=== PATIENT | male | born 1975 | race Caucasian/White ===

== ENCOUNTER 2018-01-23 16:11 | Emergency (ER) | payer OTHER, SELFPAY ==
[2018-01-23 16:12] VITALS: BP 129/99; PULSE 129; RESP 16; TEMP 37.5; O2SAT 98; BMI 27.1
--- NOTE | 2018-01-23 16:35 | CT_ITS ---
STUDY: CT ABDOMEN AND PELVIS WITHOUT CONTRAST REASON FOR EXAM: Male, 42 years old. Bilateral flank pain. RADIATION DOSAGE (If Supplied By Facility): CTDIvol = ( 7.17 ) mGy, DLP = ( 356.60 ) mGycm TECHNIQUE: Transaxial images were obtained from the dome of the diaphragm to the symphysis pubis without oral contrast, and without intravenous contrast. Sagittal and coronal images were reconstructed. Individualized dose optimization techniques were used for this CT. COMPARISON: 01/12/2016. FINDINGS: Evaluation of the abdominal viscera is limited in the absence of intravenous contrast. The visualized lung bases are clear. The visualized portions of the heart and pericardium are within normal limits. There are no calcified gallstones present. The liver demonstrates an unremarkable unenhanced appearance. The spleen is mildly enlarged, measuring 12.6 cm. The pancreas demonstrates an unremarkable unenhanced appearance. The adrenal glands are within normal limits. There are bilateral subcentimeter nonobstructing renal collecting system stones, measuring up to 3 mm. There are no ureteral stones. There is no hydronephrosis. Please note that bilateral nephritis cannot be excluded without intravenous contrast. There is stranding adjacent to the prostate and seminal vesicles. This may represent prostatitis and clinical correlation is recommended. Normal visualized stomach. There is no bowel obstruction or inflammation. The appendix is visualized and appears normal. The aorta is normal in caliber. There is no abdominal or pelvic free air, free fluid, fluid collection or lymphadenopathy. There are no destructive osseous lesions. CT/Abdomen/Pelvis without Cont IMPRESSION: Stranding around the prostate and seminal vesicles which may represent prostatitis. Clinical correlation is recommended. Bilateral subcentimeter nonobstructing renal collecting system stones. No ureteral stones. No hydronephrosis. Please note that pyelonephritis cannot be excluded without contrast. No bowel obstruction or inflammation. Normal appendix. Mild splenomegaly. Electronically Signed: Marcus Love, at 17:52 EDT Tel , Service support ,
--- NOTE | 2018-01-23 16:38 | ED.VIS.GEN ---
History of Present Illness Informant: Patient Onset: Today Quality: ache/pain Location: low back, worse on left Current Severity: Severe Maximum Severity: Severe Associated Symptoms: dysuria, frequency, fever Narrative: Patient states he thinks he is having a kidney infection. States he has had those before and he had pain like this, and has not seen a urologist for this although he did have one see him in the hospital once before, Dr. Krause, to help extract a kidney stone that he had one time. He states yesterday he started having some burning when he urinates, and frequency. He states normally when this happens, he drinks a lot of fluids, which he did all day yesterday. He woke up today at his usual time, and excruciating pain, from my tailbone radiating up to my neck. When asked if this is the typical pain that he gets with kidney infections, he states he had his it has felt like this, but he also does have chronic pain from degenerative disc disease in his low back that he gets back injections for. Denies any bowel or bladder dysfunction. <Olivier Max - Last Filed: 01/23/18 16:38> <Jorge Light - Last Filed: 01/23/18 18:37> Chief Complaint: Complaint - Past Medical History (1) Kidney stone Status: Chronic (2) Chronic low back pain Status: Chronic (3) DDD (degenerative disc disease), lumbar Status: Chronic <Olivier Max - Last Filed: 01/23/18 16:38> Past Medical History Surgical History: tonsillectomy, - - [place] teeth removal, radioablation of lumbar area Smoking Status: Former smoker - Family History Maternal Family History: Reports: Cancer Paternal Family History: Reports: Cancer <Olivier Max - Last Filed: 01/23/18 16:38> <Jorge Light - Last Filed: 01/23/18 18:37> - Allergies and Home Meds Allergies/Adverse Reactions: Allergies tetanus immune globulin Allergy (Verified 12/27/16 06:22) Swelling codeine Adverse Reaction (Verified 12/27/16 06:22) Nausea fluticasone propionate [From Flonase] Adverse Reaction (Verified 12/27/16 06:22) MIGRAINE Home Medications: Home Medications Medication Instructions Recorded Cyclobenzaprine [Flexeril] 10 mg PO TID 04/12/15 Ipratropium/Albuterol Respimat 1 puff INHALATION DAILY 04/12/15 [Combivent Respimat Inhal [place]] Lorazepam [Ativan] 0.5 mg PO BID PRN PRN 04/12/15 Montelukast [Singulair] 10 mg PO QHS 04/12/15 Omeprazole [Prilosec] 20 mg PO DAILY 04/12/15 Acetaminophen [Tylenol Arthritis] 650 mg PO TID PRN 11/30/16 Fexofenadine HCl [Tonya Allergy] 180 mg PO DAILY 11/30/16 Hydrochlorothiazide [Hctz] 12.5 mg PO DAILY 11/30/16 Nitroglycerin 0.4 mg SL PRN PRN 11/30/16 Gabapentin [Neurontin] 100 - 300 mg PO 4X/DAY PRN PRN #60 12/01/16 capsule Hydrocodone/Acetaminophen [[place] 1 each PO Q6H PRN PRN #30 tablet 12/01/16 10-325 Tablet] Iron Polysaccharide Complex 150 mg PO DAILYCM #30 capsule 12/01/16 [Ferrex 150] Mag Hydrox/Al Hydrox/Simeth 30 ml PO Q4H PRN PRN #10 dose 12/14/16 [Mylanta II] Atorvastatin Calcium [Lipitor] 40 mg PO QHS 12/27/16 Lisinopril [Zestril] 20 mg PO DAILY 12/27/16 Ciprofloxacin [Cipro] 500 mg PO BID #30 tab 01/23/18 Primary Care Physician: Avni Salcedo DO [Primary Care Provider] - Review of Systems General: Reports: Fever. Denies: Chills, Malaise, Sweats Eyes: Denies: Visual changes - bilaterally, Diplopia ENT: Denies: Bilateral ear pain, Sore throat Cardiovascular: Denies: Chest pain, Palpitations Respiratory: Denies: Dyspnea, Cough, Dyspnea on exertion Gastrointestinal: Reports: Abdominal pain - mild RLQ / suprapubic. Denies: Nausea, Vomiting, Diarrhea, Melena, Hematochezia Genitourinary: Reports: Dysuria, Frequency. Denies: Hematuria Musculoskeletal: Reports: Back pain. Denies: Neck pain, Swelling, Extremity Pain Skin: Denies: Rash, Wounds Neurological: Denies: Headache, Weakness, Numbness Psych: Denies: Depression, Anxiety Endocrine: Denies: Polyuria, Polydipsia Hematologic: Denies: Easy bruising, Easy bleeding Allergy: Denies: Swelling of the mouth, Swelling of the tongue <MansoorOlivier - Last Filed: 01/23/18 16:38> Physical Exam Vital Signs/Narrative: Vital Signs Temp Pulse Resp BP Pulse Ox 01/23/18 16:12 99.5 F H 129 H 16 129/99 H 98 Inital Vital Signs reviewed: Yes General: Well nourished, Well developed, - - conversive. NAD. Head: Normocephalic, Atraumatic Eyes: Perrl, EOMI ENT: Moist mucous membranes, No rhinorrhea Neck: Supple, Nontender Cardiovascular: Regular rate, Regular rhythm, No murmurs Respiratory: No distress, CTA bilaterally, Chest nontender Abdomen: Soft, Nontender, Nondistended, Normal bowel sounds Back: Normal Inspection, CVA tenderness - left only. Extremities: Nontender, No edema Skin: Normal color, No rash Neurological: Alert, Oriented x3, Cranial nerves II-XII grossly intact, Normal Strength, Normal Sensation, Normal Gait Psychological: Normal affect <MansoorOlivier - Last Filed: 01/23/18 16:38> Vital Signs/Narrative: Vital Signs Temp Pulse Resp BP Pulse Ox 01/23/18 17:41 99.3 F H 01/23/18 16:12 99.5 F H 129 H 16 129/99 H 98 <Ronn Lighto - Last Filed: 01/23/18 18:37> Diagnostic/Tx/Re-eval - Medical Decision Making Workup, IV fluids, analgesics ordered and checked out to oncoming emergency physician. <MansoorOlivier - Last Filed: 01/23/18 16:38> CT of the abdomen pelvis without contrast was obtained and reveals evidence of prostatitis. Urine reveals infection and is a good specimen. White count is elevated with no shift. A urine culture was ordered. Will treat with ciprofloxacin 500 mg twice a day for 2 weeks. He was referred to urology. - Medical Decision Making Impression: 1. Acute prostatitis 2. Sepsis 3. Sinus tachycardia documented on monitor Since patient is hemodynamic is stable without vomiting he is a candidate for outpatient treatment. <Ronn Lighto - Last Filed: 01/23/18 18:37> Disposition: Home <Jorge Light - Last Filed: 01/23/18 18:37> ED Disposition <Olivier Max - Last Filed: 01/23/18 16:38> <Jorge Light - Last Filed: 01/23/18 18:37> - Plan for ED Patient: Disposition: Home or Assisted Living Chief Complaint: Complaint Instructions: ED Prostatitis Prescriptions: Ciprofloxacin [Cipro] 500 mg PO BID #30 tab Referrals: Avni Salcedo DO [Primary Care Provider] - Jimmy Alcala MD [STAFF PHYSICIAN] - 3-5 Days
[2018-01-23] MEDS: fentaNYL 100 MCG/2 ML Ampul IV (17:09)
[2018-01-23] MEDS: Ketorolac 30 MG/ML Syringe IV (17:09)
[2018-01-23 17:24] LABS: Anion Gap 10 (5-15); BUN 11 mg/dL (7-18); BUN/Creat Ratio 9.7 RATIO (10-20); Calcium,Total 9.7 mg/dL (8.5-10.1); Chloride 104 mmol/L (98-107); Creatinine, Serum 1.13 mg/dL (0.70-1.30); EST Glomerular Filtration Rate 75 mL/min (>60); Est Glom Filt Rate - Afr Amer 90 mL/min (>60); Estimated Creatinine Clearance 75.28 ml/min; Glucose 102 mg/dL (74-106); Sodium Level 137 mmol/L (136-145)
[2018-01-23 17:25] LABS: Absolute Lymphocyte Count 0.55 X10^3/ul (0.83-4.51); Absolute Neutrophil Count 13.6 X10^3/uL (2.0-7.7); Basophil# 0.02 X10^3/uL; Basophil% 0.1 % (0-1); Eosinophil# 0.08 X10^3/uL; Eosinophils% 0.5 % (0-5); Hematocrit 46.9 % (40-54); Lymphocyte # 0.55 X10^3/ul (4.0); Lymphocyte % 3.7 % (19-41); Mean Corp Hgb Conc 34.1 g/gl (32-36); Mean Corpuscular Hgb 30.3 pg (27.0-32.0); Mean Corpuscular Volume 88.8 fL (80-94); Mean Platelet Vol. 10.1 fl (6.2-12.0); Monocyte# 0.79 X10^3/uL; Monocyte% 5.3 % (0-10); Neutrophil # 13.57 X10^3/uL (2.7-7.7); Neutrophil % 90.2 % (47-70); Platelet Count 166 K/mm3 (150-450); RBC Distribution Width CV 13.2 % (11.6-14.6); RBC Distribution Width SD 42.4 fl (35.1-43.9); Red Blood Count 5.28 M/mm3 (4.6-6.2)
[2018-01-23 17:30] LABS: Differential Indicated SCAN CRITERIA MET; POSITIVE COUNT NO; POSITIVE DIFFERENTIAL YES; POSITIVE MORPHOLOGY NO
[2018-01-23 17:33] LABS: Color, Urine Yellow (Yellow); Glucose, Dipstick Normal (Normal); Ketone-Dipstick 15 mg/dl (Negative); Leukocyte Esterase-Dipstick 500 /ul (Negative); Nitrite-Dipstick Negative (Negative); Occult Blood-Urine 50 /ul (Negative); Protein-Dipstick 30 mg/dl (Negative); Specific Gravity, Urine 1.015 (1.002-1.030); Urine Clarity Cloudy (Clear); Urine Urobilinogen 1 mg/dl (Normal)
[2018-01-23 17:41] VITALS: TEMP 37.4
[2018-01-23 17:45] LABS: Differential Comment SCANNED
[2018-01-23 17:46] LABS: Urine Bilirubin Dipstick 6 mg/dL (Negative)
[2018-01-23 17:50] LABS: Bacteria 1+ /hpf (None Seen); Red Blood Cells-Urine 10-25 SEEN /hpf (0-5); Squamous Epithelial Cells - UA 0 SEEN /hpf (0-5); White Blood Cells >100 SEEN /hpf (0-5)
[2018-01-23 17:51] LABS: Mucous, Urine 3+ /hpf (<or=2+)
--- NOTE | 2018-01-23 18:41 | ED.VISSUMM ---
- ER Visit Summary Date of Service: 01/23/18 Chief Complaint: [] History of Present Illness: The patient is a 42 M [] Physical Examination: [] Test Results: [] Emergency Department Course and Treatment: [] Treatment Plan: [] Disposition: [] Impression: [] This note was generated with [employer] dictation software. It may contain incorrect words, spelling, and punctuation that were not noted in review of the chart prior to signing ED Disposition - Plan for ED Patient: Disposition: Home or Assisted Living Chief Complaint: Complaint Instructions: ED Prostatitis Prescriptions: Ciprofloxacin [Cipro] 500 mg PO BID #30 tab Referrals: Avni Salcedo DO [Primary Care Provider] - Jimmy Alcala MD [STAFF PHYSICIAN] - 3-5 Days Additional Instructions: Your prescription was electronically transmitted to your preferred pharmacy.
[2018-01-23] MEDS: Ciprofloxacin 250 MG Tablet 500 MG PO (18:57)
[2018-01-23] MEDS: Acetaminophen 325 MG Tablet 650 MG PO (18:57)
[2018-01-23 19:05] VITALS: BP 136/91; PULSE 120; RESP 18; O2SAT 94
== END 2018-01-23 19:10 | disposition home or self-care (01) ==
PROVIDERS: Emergency Provider Emergency Medicine; Family Provider Student in an Organized Health Care Education/Training Program; PCP Student in an Organized Health Care Education/Training Program
DX: A41.9 Sepsis, unspecified organism (principal); N41.0 Acute prostatitis; R00.0 Tachycardia, unspecified; M54.5 Low back pain; G89.29 Other chronic pain; M51.36 Other intervertebral disc degeneration, lumbar region; Z87.442 Personal history of urinary calculi; Z87.891 Personal history of nicotine dependence; Z79.899 Other long term (current) drug therapy
CPT/HCPCS: 74176; 80048; 81001; 85025; 96374; 96375; 99284; A4216

== ENCOUNTER 2018-01-25 16:31 | Emergency (ER) | payer OTHER, SELFPAY ==
[2018-01-25 16:34] VITALS: BP 149/98; PULSE 105; RESP 18; TEMP 37.3; O2SAT 99; BMI 27.4
--- NOTE | 2018-01-25 16:44 | ED.VISSUMM ---
- ER Visit Summary Date of Service: 01/25/18 Chief Complaint: Frequency, decreased stream and dysuria History of Present Illness: The patient is a 42 M who was seen on Sunday and diagnosed with acute prostatitis. He was prescribed ciprofloxacin. He was referred to Dr. Gene Alcala. He was sent from urgent care because of urinary retention. Patient denies fever or chills. He denies any testicular pain. He has decreased fullness in the rectal area which was a complaint/concern when seen on Sunday. He has no other complaints Physical Examination: Vital signs are marked for an elevated blood pressure 149/98 heart rate 105. He is not febrile. He has no discomfort in the suprapubic region. He has no CVA tenderness noted. He is alert and oriented. Motor and sensory are intact. Cranial 2 through 12 are intact. There is no dermatologic lesions or rash noted. Test Results: Bladder scan revealed only 135 cc of urine. Emergency Department Course and Treatment: A bladder scan was ordered. If there is evidence urinary retention Campos replaced otherwise we will treat with Pyridium for his dysuria. Treatment Plan: Azo 190 mg in the emergency department and prescription for the next 5 days. Disposition: Discharged to home Impression: Dysuria and urgency secondary to prostatitis This note was generated with [employer] dictation software. It may contain incorrect words, spelling, and punctuation that were not noted in review of the chart prior to signing ED Disposition - Plan for ED Patient: Disposition: Home or Assisted Living Chief Complaint: Complaint Instructions: ED Urethritis Infec Vs Inflam Male Prescriptions: Phenazopyridine HCl [Pyridium] 200 mg PO TID #14 tab Referrals: Avni Salcedo DO [Primary Care Provider] - 3-5 Days if not improving Additional Instructions: Your prescription was electronically transmitted to [facility] pharmacy
[2018-01-25] MEDS: Phenazopyridine 95 MG Tablet 190 MG PO (17:11)
== END 2018-01-25 17:13 | disposition home or self-care (01) ==
PROVIDERS: Emergency Provider Emergency Medicine; Family Provider Student in an Organized Health Care Education/Training Program; PCP Student in an Organized Health Care Education/Training Program
DX: N41.9 Inflammatory disease of prostate, unspecified (principal); R30.0 Dysuria; R39.15 Urgency of urination; Z79.2 Long term (current) use of antibiotics
CPT/HCPCS: 99283

== ENCOUNTER → 2018-06-25 08:58 | Outpatient (CLI) | payer OTHER, SELFPAY ==
--- NOTE | 2018-06-25 09:09 | VDLE_ITS ---
Reason For Study: LLE pain RIGHT LEFT CFV is compressible, spontaneous, phasic, GSV is normal. competent and demonstrates normal CFV is compressible, spontaneous, phasic, augmentation. competent, and demonstrates normal Procedure augmentation. Exam performed in department. FV is compressible, spontaneous, phasic, A preliminary report was called and/or faxed competent and demonstrates normal to [place]. augmentation. POP V is compressible, spontaneous, phasic, competent and demonstrates normal augmentation. T/P Trunk is compressible. PTV is compressible. LT PerV is compressible. Interpretation Summary Deep veins of the left lower extremity are patent and compressible segmentally. There is no evidence of left lower extremity deep vein thrombosis. Valvular competence appears intact within the proximal deep venous system on the left . The left greater saphenous vein appears patent and compressible segmentally. Ordering Physician: Chan Granados Referring Physician: Avni Serrato Performed By: Brittany Lenz RVT and Student
== END ==
PROVIDERS: Family Provider Student in an Organized Health Care Education/Training Program; PCP Student in an Organized Health Care Education/Training Program; Referring Provider Orthopaedic Surgery Orthopaedic Surgery of the Spine; Visit Provider Orthopaedic Surgery Orthopaedic Surgery of the Spine
DX: M79.605 Pain in left leg (principal)
CPT/HCPCS: 93971

== ENCOUNTER 2018-08-21 16:30 | Outpatient (RCR) | payer OTHER, SELFPAY ==
--- NOTE | 2018-07-12 13:08 | HP.PTEVAL ---
Patient's Visit Information JARON PANTOJA is a 43 year old M referred to Physical Therapy by RUDOLPH AGEE with a diagnosis of S/P LUMBAR SURGERY. Date of Evaluation: 07/12/18 Physical Therapist: Moises Pinedo, PT, - Visit Plan Frequency: 2x /Week Duration: 4 Weeks Plan: PATIENT UNDERWENT S/P LUMBAR DISCTOMY L5-S1 JUN 18. PATIENT HAS DRAINAGE INSCION UNABLE TO LAY SUPINE. INTIATE LE FLEXABLITY,STRENGTHENING,POSTURAL EX'S,DLS,LUMBAR ROM - Subjective Subjective: This 43 y/o male presents to physical therapy with s/p lumbar surgery. Patient undwerwent s/p lumbar disectomy L5-S Jun 18 2018 at [facility] done by DR Flores.Patient d/c same. Patient has pain lumbar buttuck hamstring foot. Seen DR last Sunday. Recommended PT and if not better may do MRI. Patient has not RTW at [facility]. C/O parathesia/tingling to foot. Symptoms worse with walking ,standing,ADL'S. Symptoms some better with sitting. Patient does have drainage in inscion. and has Dr office knows that lumbar inscion is draining. Coughing/sneezing increase symptoms. Bowel/bladder good. Patient has had prior PT. Patient tried injections in past which made symptoms worse. Patient surgery affect QOL ,RTW and ADL'S. SOCAIL: single. VOCATION: [employer]. - Pain Bilateral Back Pain Intensity (Out of 10): 7 Pain Intensity Range: 10 Left Lower Extremity Pain Intensity (Out of 10): 6 Pain Intensity Range: 10 Comment: HAMSTRING TO BUTTUCK - Objective POSTURE: mild foward head rounded shoulders. INSCION: drainage banage intact. GAIT: mild foward posture reciprocal pattern. NEURO: c/o parathesia/tingling leg foot ,reflexes L3-4,L4-5,L5-S1. MMT: quads 3+/5 + ANR,hams 3+/5 left ,right quads/hams 4-/5,hip left 3+/5,right 4-/5,ankle 4-/5 left. LUMBAR ROM: flexion mod loss,extension severe loss,side glides mod loss. FLEXABILITY: hams mod/severe left, right mod limited - Special Tests L/S Slump test left side: Positive L/S Slump test right side: Negative L/S Left Straight Leg Raise: Positive L/S Right Straight Leg Raise: Negative - Goals Goal 1:: Independant with HEP Goal Time Frame: 4-6 Weeks Goal 2:: Patient to be Independant with posture/body mechanics Goal Time Frame: 4-6 Weeks Goal 3:: Patient to increase lumnar ROM for fubnction of recovery. Goal Time Frame: 4-6 Weeks Goal 4:: Patient decrease pain lumbar and left leg by 50% or greater to improve function with walking and staning. Goal Time Frame: 4-6 Weeks Goal 5:: Patient increase strength left leg by 4-/5 to improve function with ADL'S Goal Time Frame: 4-6 Weeks Goal 6:: Patient to improve HALIMA back score by 5 points to improve QOL Goal Time Frame: 4-6 Weeks - Rehabilitation Potential Physical Therapy Diagnosis: This patient underwent s/p lumbar disectomy L5-S1with pain ,inscion drainage,weakness left leg ,pooro ROM inmpairs ADL'S and function wiith RTW Rehabilitation Potential: Good - Anticipated Interventions Patient/Client Instruction: Educate patient on: Condition, Plan of Care For the Purpose of:: To decrease pain, To increase ROM, To improve muscle performance and motor function, To improve ability to perform ADL's, To increase tolerance to activity/condition/position, To improve ability of physical actions for home/community/work/leisure, To improve health of tissue, To decrease soft tissue restriction, To increase flexibility/ROM, To improve ability to perform tasks related to life management Therapeutic Exercise to Include: Strength training, Body mechanics, Postural training, Flexibilty training, Active ROM, Dynamic Lumbar Stabilization For the Purpose of:: To decrease pain, To increase ROM, To improve muscle performance and motor function, To increase tolerance to activity/condition/position, To improve performance and independence with ADL's, To improve ability of physical actions for home/community/work/leisure, To improve health of tissue, To decrease soft tissue restriction, To increase flexibility/ROM, To reduce risk of recurrence, To improve ability to perform tasks related to life management TENS: Yes IF ES: Yes Cryotherapy (ice pack, ice massage): Yes For the Purpose of:: To decrease pain, To decrease swelling/inflammation, To improve health of tissue, To decrease soft tissue restriction, To increase flexibility/ROM Thank you for the opportunity to evaluate your patient. For Medicare and Medicare HMO plans, please review the plan of care and approve it. It will need to be FAXED BACK to us at [phone] for Medicare purposes. Please let me know if there are questions or concerns regarding this plan of care. Physician Signature: Date:
--- NOTE | 2018-08-29 17:17 | HP.PT.NRP ---
HP - Discharge Summary (1) - Patient Information JARON PANTOJA was seen in my office for initial evaluation on 07/12/18. The following Plan of Care was established for this patient: Initial Frequency: 2x /Week Initial Duration: 4 Weeks - Anticipated Interventions Patient/Client Instruction: Educate patient on: Condition, Plan of Care For the Purpose of:: To decrease pain, To increase ROM, To improve muscle performance and motor function, To improve ability to perform ADL's, To increase tolerance to activity/condition/position, To improve ability of physical actions for home/community/work/leisure, To improve health of tissue, To decrease soft tissue restriction, To increase flexibility/ROM, To improve ability to perform tasks related to life management Therapeutic Exercise to Include: Strength training, Body mechanics, Postural training, Flexibilty training, Active ROM, Dynamic Lumbar Stabilization For the Purpose of:: To decrease pain, To increase ROM, To improve muscle performance and motor function, To increase tolerance to activity/condition/position, To improve performance and independence with ADL's, To improve ability of physical actions for home/community/work/leisure, To improve health of tissue, To decrease soft tissue restriction, To increase flexibility/ROM, To reduce risk of recurrence, To improve ability to perform tasks related to life management TENS: Yes IF ES: Yes Cryotherapy (ice pack, ice massage): Yes For the Purpose of:: To decrease pain, To decrease swelling/inflammation, To improve health of tissue, To decrease soft tissue restriction, To increase flexibility/ROM This patient was last seen in our office . Pertinent comments regarding their Physical therapy will appear below: Patient arrived to PT stated that MD wants to stop PT . Patient plan to get MRI. Patient conts to be in lumbar and leg,thus at this time is d/c. At this point I will be discontinuing this patient from physical therapy. I would be happy to see this patient again in the future if found appropriate by the physician. Thank you! Moises Pinedo, PT, Cert MDT, OCS
== END 2018-08-21 19:00 | disposition home or self-care (01) ==
LOC: PT 16:30
PROVIDERS: Family Provider Student in an Organized Health Care Education/Training Program; PCP Student in an Organized Health Care Education/Training Program
DX: Z98.890 Other specified postprocedural states (principal)
CPT/HCPCS: 97014; 97110; 97162; 97530; G0283

== ENCOUNTER → 2018-09-25 16:15 | Outpatient (CLI) | payer OTHER, SELFPAY ==
[2018-09-25 17:02] LABS: Creatinine, Serum 1.11 mg/dL (0.70-1.30); EST Glomerular Filtration Rate 76 mL/min (>60); Est Glom Filt Rate - Afr Amer 92 mL/min (>60)
--- OUTSIDE RECORDS SUMMARY | 2018-11-30 16:12 | XMS RPT_ITS ---
:1975 Author Organization [employer] Address [address] [place] [address] Phone Care Team Providers Name Role Phone Chan Granados MD Unavailable Reason for Visit Reason For Visit Description Start Date Postop - subsequent visit Preliminary reason for visit data, not yet signed by the author as of lower back post foraminotomy L5-S1 left on 06/18/2018 Preliminary reason for visit data, not yet signed by the author as of Chief Complaint Chief Complaint Description Start Date lower back post foraminotomy L5-S1 left on 06/18/2018 Preliminary chief complaint data, not yet signed by the author as of Instructions Instruction Description Start Date Completed Plan of Care Type Date Detail Appointment 10:00 AM Chan Granados MD, [address] [facility], [place], [address], Medications Medication Instructions Start Stop Generic Name [facility] Provider Date Date HYDROCODONE-IBUPROFE Take one HYDROCODONE-IBUPROFE 96658979444 Alis N 7.5-200 MG TABS tablet po bid N D'Gregory prn PA-C POTASSIUM TABS take 1 tablet POTASSIUM TABS 16576912069 Fina three times 05/21 Emily daily INDUSTRIAL THERAPIST MAGNESIUM TABS take 1 tablet MAGNESIUM TABS 87047264060 Fina twice daily 05/21 [place] INDUSTRIAL THERAPIST IRON 18 MG CR-TABS take 1 tablet FERROUS FUMARATE 05657154986 Fina four times 05/21 Emily daily INDUSTRIAL THERAPIST MONTELUKAST SODIUM take 1 tablet MONTELUKAST SODIUM 40067630577 Fina 10 MG TABS once daily 05/21 [place] INDUSTRIAL THERAPIST FEXOFENADINE HCL 180 take 1 tablet FEXOFENADINE HCL 06656182152 Fina MG TABS once daily 05/21 [place] INDUSTRIAL THERAPIST CYCLOBENZAPRINE HCL take 1 tablet CYCLOBENZAPRINE HCL 41120663558 Fina 10 MG TABS twice daily 05/21 Emily INDUSTRIAL THERAPIST ATORVASTATIN CALCIUM take 1 tablet ATORVASTATIN CALCIUM 57548530280 Fina 40 MG TABS once daily 05/21 Emily INDUSTRIAL THERAPIST HYDROCHLOROTHIAZIDE take 1 tablet HYDROCHLOROTHIAZIDE 31101182480 Fina 12.5 MG TABS once daily 05/21 [place] INDUSTRIAL THERAPIST TIZANIDINE HCL 4 MG take 1 TIZANIDINE HCL 59650989281 Fina CAPS capsule once 05/21 Emily daily INDUSTRIAL THERAPIST OMEPRAZOLE 40 MG take 1 OMEPRAZOLE 89061907353 Fina CPDR capsule once 05/21 [place] daily INDUSTRIAL THERAPIST RIZATRIPTAN BENZOATE take 1 tablet RIZATRIPTAN BENZOATE 93573849978 Fina 10 MG TBDP as needed as 05/21 Emily directed INDUSTRIAL THERAPIST LORAZEPAM 0.5 MG take 1 tablet LORAZEPAM 74375178267 Fina TABS as needed 05/21 [place] INDUSTRIAL THERAPIST 5-HTP 100 MG CAPS take 1 5-HYDROXYTRYPTOPHAN 91565452382 Fina capsule three 05/21 Emily times daily INDUSTRIAL THERAPIST 8 HOUR PAIN RELIEVER take three ACETAMINOPHEN 13154043584 Fina 650 MG CR-TABS times daily 05/21 Emily as needed INDUSTRIAL THERAPIST ACETAMINOPHEN 500 MG take three ACETAMINOPHEN 66643788066 Fina TABS times daily 05/21 [place] INDUSTRIAL THERAPIST Conditions or Problems Problem Problem Code Onset Status Entry Provider Comment Standard Annotate Name Date Date Description Status [id number] Active Alis History of Foraminotomy post (SNOMED CT) D'Gregory operative L5-S1 left lumbar PA-C procedure on surgery lumbar spinal structure Left leg [id number] Active Alis Pain in left pain (SNOMED CT) 0 D'Gregory lower limb PA-C [place] 859661791503 Active Chan M Stenosis of L5-S1 Left stenosis (SNOMED CT) 05/22 05/22 Darwin MELGOZA intervertebral of lumbar foramina region Foraminal 671973435494 Active 2018 Chan M Stenosis of L3-4 L4-5 stenosis (SNOMED CT) 05/22 05/22 Darwin MELGOZA intervertebral L5-S1 Right of lumbar foramina region Allergies, Adverse Reactions, Alerts Allergy Name Reaction Start Date Severity Status Provider Description FLUTICASONE Critical Active Fina Emily SALMETEROL INDUSTRIAL THERAPIST BECLOMETHASONE Critical Active Fina [place] DIPROPIONATE INDUSTRIAL THERAPIST DIPHTHERIA TOXOID Critical Active Fina [place] INDUSTRIAL THERAPIST TETANUS TOXOID Critical Active Fina Emily ADSORBED INDUSTRIAL THERAPIST FLUTICASONE Critical Active Fina Emily PROPIONATE INDUSTRIAL THERAPIST ONIONS Critical Active Fina [place] INDUSTRIAL THERAPIST CODEINE PHOSPHATE Critical Active Fina Emily INDUSTRIAL THERAPIST GABAPENTIN Critical Active Fina Emily INDUSTRIAL THERAPIST ANIMALS Critical Active Fina Emily INDUSTRIAL THERAPIST DAIRY Critical Active Fina [place] INDUSTRIAL THERAPIST SULFA Critical Active Fina [place] INDUSTRIAL THERAPIST Social History No information available. Vital Signs Date Name Value Unit Description BMI (Body Mass 29.56 kg/m2 Body Mass Index Index) [Ratio] Preliminary vital sign data, not yet signed by the author as of BP Diastolic 88 mm[Hg] blood pressure, diastolic Preliminary vital sign data, not yet signed by the author as of BP Systolic 133 mm[Hg] blood pressure, systolic Preliminary vital sign data, not yet signed by the author as of Heart Rate 111 /min pulse rate E&M Preliminary vital sign data, not yet signed by the author as of Height 65 [in_us] height E&M Preliminary vital sign data, not yet signed by the author as of Height 165 cm height in centimeters E&M Preliminary vital sign data, not yet signed by the author as of Weight Measured 177 [lb_av] weight E&M Preliminary vital sign data, not yet signed by the author as of Weight Measured 80 kg weight in kilograms E&M Preliminary vital sign data, not yet signed by the author as of Results Date Name Value Unit Range Flag Description Office Visit: Postop - subsequent visit, Rm: 23 MEDS REVIEW Done Documentation of current medications (procedure) Preliminary observation data, not yet signed by the author as of MRI HX of the lumbar on MRI (magnetic 11/15/2017 at [facility] resonance imaging) history Preliminary observation data, not yet signed by the author as of Preliminary observation data, not yet signed by the author as of Clinical Summary: [facility]MS[facility] OOP account number Procedures Code Procedure Name Date Entry Date G8730 Pain assessment documented as positive - follow-up documented G8427 Current medications documented 1036F Tobacco screening was negative - non user G8419 BMI outside of normal parameters - no follow-up plan/reason not given G8783 Blood pressure within normal parameters - no follow-up required [id number] Patient Encounter Medications Administered No information available. Immunizations No information available. Advance Directives There may be information available, but it has not been provided by the sender. Assessments There may be information available, but it has not been provided by the sender. Review of Systems There may be information available, but it has not been provided by the sender. Family History There may be information available, but it has not been provided by the sender. History of Past Illness There may be information available, but it has not been provided by the sender. History of Present Illness There may be information available, but it has not been provided by the sender.
--- OUTSIDE RECORDS SUMMARY | 2018-11-30 16:12 | XMS RPT_ITS ---
:1975 Author Organization OHIP Care Team Providers Name Role Phone AVNI CASTILLO Attending Unavailable AVNI CASTILLO Referring Unavailable OLBRYCH, JULIEN Referring Unavailable OLBRYCH, JULIEN Attending Unavailable JOHN LONDON T Attending Unavailable SURYA, JOHN T Referring Unavailable JOHN LONDON T Attending Unavailable CASTILLO, AVNI L Referring Unavailable SURYA, JOHN T Attending Unavailable CASTILLO, AVNI L Attending Unavailable CASTILLO, AVNI L Referring Unavailable SUPRIYA FRANCOIS (BROADCAST FIELD SUPERVISOR) Attending Unavailable INDRA DUPREE Attending Unavailable INDRA DUPREE Referring Unavailable INDRA DUPREE E Referring Unavailable OLBRYCH, JULIEN Referring Unavailable OLBRYCH, JULIEN Referring Unavailable MARIVEL SARAH (PA) Attending Unavailable KEARAMARIVEL (PA) Referring Unavailable MASCI, RAH A Referring Unavailable MASCI, RAH A Attending Unavailable MASCI, RAH A Referring Unavailable KEARAMARIVEL (PA) Attending Unavailable KEARAMARIVEL (PA) Referring Unavailable KEARAMARIVEL (PA) Referring Unavailable EhrlerSuzi Attending Unavailable Ehrler, Suzi Referring Unavailable Castillo, Avni Primary Care Unavailable CRYSTAL SAGE Attending Unavailable Castillo, Avni Primary Care Unavailable CRYSTAL SAGE Consulting Unavailable Ehrler, Suzi Attending Unavailable Ehrler, Suzi Referring Unavailable Castillo, Avni Primary Care Unavailable Castillo, Avni Primary Care Unavailable Light Jorge Attending Unavailable Castillo, Avni Primary Care Unavailable OLIVIER SARAH Attending Unavailable Demarcoler, Suzi Attending Unavailable PROVIDER, UNKNOWN Referring Unavailable Castillo, Avni Primary Care Unavailable Ehrler, Suzi Attending Unavailable PROVIDER, UNKNOWN Referring Unavailable Castillo, Avni Primary Care Unavailable INDRA DUPREE Attending Unavailable INDRA DUPREE Referring Unavailable PROBLEMS PROBLEMS DATE TYPE CONDITION / CODE ATTENDING STATUS SOURCE 09/30/2018 Admitting Other specified Ehrler, Active [facility] [employer] Diagnosis postprocedural [facility] states / Repository Z98.890(ICD-10) 09/30/2018 Admitting Spinal stenosis, Ehrler, Active [facility] Diagnosis lumbar region [facility] without neurogenic Repository henry / M48.061(ICD-10) 09/30/2018 Admitting Abnormal Ehrler, Active [facility] Diagnosis electromyogram [EMG] [facility] / R94.131(ICD-10) Repository 09/30/2018 Admitting Pain in left leg / Ehrler, Active [facility] Diagnosis M79.605(ICD-10) [facility] Repository 09/30/2018 Admitting Other intervertebral Ehrler, Active [facility] Diagnosis disc displacement, [facility] lumbosacral region / Repository M51.27(ICD-10) 09/30/2018 Admitting Other forms of Ehrler, Active [facility] Diagnosis scoliosis, lumbar [facility] region / Repository M41.86(ICD-10) 09/30/2018 Admitting Other intervertebral Ehrler, Active [facility] Diagnosis disc displacement, [facility] lumbar region / Repository M51.26(ICD-10) 09/30/2018 Admitting Disorder of bone, Ehrler, Active [facility] Diagnosis unspecified / [facility] M89.9(ICD-10) Repository 09/25/2018 Unknown Z98.890 - Other Ehrler, Active [facility] specified [facility] states / Repository Z98.890(ICD-10) 08/19/2018 Active Moderate persistent NA Active [place] asthma, [facility] uncomplicated / [facility] J45.40(ICD-10) Repository 03/23/2017 Active 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 Repository 03/24/2014 Active Radiculopathy, NA Active [facility] lumbosacral region / [facility] M54.17(ICD-10) [facility] Repository 03/24/2014 Active Other intervertebral NA Active [place] disc degeneration, [facility] lumbar region / [facility] M51.36(ICD-10) Repository 05/05/2010 Active Other intervertebral NA Active [place] disc displacement, [facility] lumbar region / [facility] M51.26(ICD-10) Repository 11/15/2017 Active Radiculopathy, NA Active [place] lumbar region / [facility] M54.16(ICD-10) [facility] Repository 11/15/2017 Active Other symptoms and NA Active [place] signs involving the [facility] musculoskeletal [facility] system / Repository R29.898(ICD-10) 12/25/2016 Active Hemorrhage of anus NA Active [place] and rectum / [facility] K62.5(ICD-10) [facility] Repository 04/03/2017 Active Mild persistent NA Active [place] asthma, [facility] uncomplicated / [facility] J45.30(ICD-10) Repository PROCEDURES PROCEDURES No Procedure Records FoundRESULTS RESULTS MRI SPINE LUMBAR W/ + Observed: 10/01/2018 Status: F Source: [facility] W/O CONTRAST 7:46 AM SYSTEM REPOSITORY Patient Name: JAKE CHAIREZ MRI Exam Date/Time 09/30/2018 11:01:22 EST Exam MRI Spine Lumbar w/ + w/o Contrast Ordering Physician MD BEN, SUZI [place] Accession Number [id number] CPT4 Codes 57806 () Reason For Exam status post lumbar surgery Report Examination: MRI lumbar spine Clinical Indication: status post lumbar surgery Comparison: 11/15/2017 Findings: Multiplanar multisequence high field strength MRI images were obtained through the lumbar spine without administration of intravenous gadolinium contrast. Additional coronal images obtained for better evaluation of lumbar scoliosis. Five lumbar type vertebra are assumed for purposes of numbering on this examination. Postsurgical changes with laminotomy defect at L5-S1 and significant disc height loss suggesting microdiscectomy. Mild lumbar scoliosis apex leftward measuring 11 degrees. No gross evidence of listhesis. The lumbar spine demonstrates loss of T2 disc signal and disc height below L3. There is advanced endplate degenerative signal changes, fatty infiltration and some edema L5-S1. There is osseous edema within the pedicles of L5 left greater than right suggesting mild stress changes. No discrete fracture is seen. The conus terminates at a normal T12-L1 level. No abnormal signal is appreciated within the distal cord. T12-L1: No gross disc abnormality or spinal canal/neuroforaminal stenosis. L1-L2: Small broad-based posterior disc bulge. No spinal canal stenosis. Minimal neural foraminal narrowing. L2-L3: No gross disc abnormality or spinal canal/neuroforaminal stenosis. L3-L4: Small broad-based posterior disc bulge slightly more pronounced at the right neuroforamen with endplate osteophytes. Mild facet degenerative hypertrophy. Trace spinal canal stenosis, lateral recess narrowing. Mild left and moderate right neural foraminal narrowing with slight disc osteophyte encroachment bilaterally. L4-L5: Moderate-sized broad-based posterior disc bulge slightly more pronounced to the right with small right foraminal disc protrusion measuring 3 mm sagittal image five with small endplate osteophytes. Slight disc encroachment on the lateral recesses. There is moderate facet and ligamentum flavum hypertrophy. Moderate spinal canal stenosis. Mild left and moderate right neuroforaminal narrowing. L5-S1: Moderate size broad-based posterior disc bulge along with endplate osteophytes. Minimal amount of annular enhancement left lateral recess. Moderate facet degenerative hypertrophy. Mild right and moderate left neural foraminal narrowing with foraminal height loss and foraminal disc osteophytes. There is no significant spinal or paraspinal gadolinium enhancement. Impression: 1. Postsurgical changes with L5-S1 laminotomy and microdiscectomy. Moderate size broad-based posterior disc bulge at this level along with discogenic and facet degenerative changes contributing to minimal disc encroachment on the lateral recesses and moderate left neural foraminal narrowing. 2. Mild lumbar scoliosis apex leftward. 3. Lumbar disc bulges with slightly more focal right lateral recess small disc herniation L4-L5. Findings contribute to a moderate spinal canal stenosis L4-L5 and significant moderate neural foraminal narrowing on the right L3-L4 and L4-L5. Other less significant stenoses as above. 4. Mild osseous edema seen along the pedicles of L5 left greater than right concerning for mild stress changes. No discrete fracture. Report Dictated on Final Dictated: 10/01/2018 7:46 am Dictating Physician: MD WOO ANTHONY J Signed Date and Time: 10/01/2018 8:03 am Signed by: MD WOO ANTHONY J Transcribed Date and Time: 10/01/2018 7:46 SERUM CREATININE AND Collected: 09/25/2018 Status: F Source: [facility] GFR 4:21 PM [facility] REPOSITORY TYPE CODE TESTS RESULT OUT OF RANGE REFERENCE UNITS LAB L501.1100 0.70-1.30 mg/dL Normal 1.11 CREAT,SERUM Result Comment: The validity of the calculated GFR AND GFRAA in patients over 70 years has not been determined. Clinical correlation is essential. LAB L501.1110 >60 mL/min Normal EST GFR 76 Result Comment: Non- GFR Calc LAB L501.1115 >60 mL/min Normal EST GFR - AA 92 Result Comment: GFR Calc Performed By: #### L501.1105 #### [facility] [address] [place], [address] PROGRESS Observed: 08/19/2018 Status: COMPLETED Source: [place] 3:30 PM [facility] REPOSITORY HNO ID: [id number] Author: Marivel Sarah Service: (none) Author Type: Physician Systems Architect Type: Progress Notes Filed: 08/19/2018 3:43 PM Note Text: [facility] [place], 08/19/18: INTERVAL HISTORY: The patient is here for follow up of asthma; the last Pulmonary Clinic visit was 03/04/18. There have been no ED visit(s) for the management of asthma exacerbation. No hospitalization(s) for management of asthma exacerbation. Has used no prednisone for the management of exacerbation. Daily cough. Minimal sputum. No hemoptysis or pleuritic chest pain. Wheezing, primarily with exertion. No dyspnea. No nocturnal awakenings. No fevers or chills. Combivent daily use, with good relief. Once daily perforomist and budesonide. PMH: Updated with patient today. FAMH: Updated with patient today. SOCH: Updated with patient today. ROS: General: Generally feels good. Appetite good. Weight stable. Eyes, Ears, nose, throat: No post nasal drip, rhinorrhea, purulent nasal discharge, epistaxis. No hoarseness. Vision stable. Cardiac: No angina, edema, orthopnea. GI: No heartburn, dysphagia, diarrhea. Occasional nausea. Uro/SERVICE DISPATCHER: No dysuria, hesitancy, nocturia. Musculoskeletal: Chronic back pain. Had surgery in June 2018. Neuro: No headache, focal weakness, tremor. Skin: No rash. Otherwise negative. There is no immunization history on file for this patient. Allergies were verified and updated, and medications were reconciled with the patient at this visit. PHYSICAL EXAMINATION: BP 138/80 Pulse 105 Resp 16 Wt 168 lb (76.2kg) SpO2 98% Body mass index is 26.31 kg/m?. Gen: No acute distress. Cooperative with examination. ENT: Nares clear. Oral hygeine good. Pharynx clear. Resp: No stridor, accessory respiratory muscle use. No crackles, wheezes. CV: Regular rythm. Heart tones normal. Radial pulses normal. Abd: Non distended. MSK: No kyphoscoliosis. Ext: Warm and well perfused. No cyanosis. Skin: No rash, eczema, urticaria. Neuro: Mental status normal. No tremor. DATA REVIEW:? DATE: 03/04/18 07/16/17 06/14/17 05/18/17 07/06/14 FVC 4.30 (92 % pred) 3.98 (85% pred) 3.53 (75% pred) 2.85?(61?% pred) 4.26?(92?% pred) FEV1 2.79 (76 % pred) + 12 % post BD 2.47 (66% pred) 2.43 (65% pred) 1.25?(34?% pred) 2.50?(70?% pred) Post BD 18% FEV1/FVC 0.65 0.62 0.69 0.44 0.59 Exhaled nitric oxide ([place]), 08/19/18: 67 03/04/18: 71 11/01/17: 135 (normal < 25). IMPRESSION: Moderate asthma, improved [place] today. ? RECOMMEND: 1. Continue Perforomist and Budesonide via nebulizer twice daily every day. 2. Continue Singulair 10 mg daily. 3. Continue Combivent Respimat 4 times daily as needed for shortness of breath, wheezing. I addressed the questions of the patient, and he expressed understanding and acceptance of my answers. Marivel Sarah PA-C [facility] [place] [facility] [place] [address] [place] [id number] CNOV Observed: 08/19/2018 Status: COMPLETED Source: [place] 3:30 PM [facility] REPOSITORY Office Visit (PULMWS) JAKE CHAIREZ ([id number]) 1975 M Date Time Provider Department 08/19/18 3:30 PM MARIVEL SARAH During your visit today, we recorded the following information about you: Pulse Respiration Blood pressure Weight 105/minute 16/minute 138/80 76.2 kg Marivel Sarah PA-C 08/19/2018 3:43 PM Signed [facility] [place], 08/19/18: INTERVAL HISTORY: The patient is here for follow up of asthma; the last Pulmonary Clinic visit was 03/04/18. There have been no ED visit(s) for the management of asthma exacerbation. No hospitalization(s) for management of asthma exacerbation. Has used no prednisone for the management of exacerbation. Daily cough. Minimal sputum. No hemoptysis or pleuritic chest pain. Wheezing, primarily with exertion. No dyspnea. No nocturnal awakenings. No fevers or chills. Combivent daily use, with good relief. Once daily perforomist and budesonide. PMH: Updated with patient today. FAMH: Updated with patient today. SOCH: Updated with patient today. ROS: General: Generally feels good. Appetite good. Weight stable. Eyes, Ears, nose, throat: No post nasal drip, rhinorrhea, purulent nasal discharge, epistaxis. No hoarseness. Vision stable. Cardiac: No angina, edema, orthopnea. GI: No heartburn, dysphagia, diarrhea. Occasional nausea. Uro/SERVICE DISPATCHER: No dysuria, hesitancy, nocturia. Musculoskeletal: Chronic back pain. Had surgery in June 2018. Neuro: No headache, focal weakness, tremor. Skin: No rash. Otherwise negative. There is no immunization history on file for this patient. Allergies were verified and updated, and medications were reconciled with the patient at this visit. PHYSICAL EXAMINATION: BP 138/80 Pulse 105 Resp 16 Wt 168 lb (76.2kg) SpO2 98% Body mass index is 26.31 kg/m?. Gen: No acute distress. Cooperative with examination. ENT: Nares clear. Oral hygeine good. Pharynx clear. Resp: No stridor, accessory respiratory muscle use. No crackles, wheezes. CV: Regular rythm. Heart tones normal. Radial pulses normal. Abd: Non distended. MSK: No kyphoscoliosis. Ext: Warm and well perfused. No cyanosis. Skin: No rash, eczema, urticaria. Neuro: Mental status normal. No tremor. DATA REVIEW:? DATE: 03/04/18 07/16/17 06/14/17 05/18/17 07/06/14 FVC 4.30 (92 % pred) 3.98 (85% pred) 3.53 (75% pred) 2.85?(61?% pred) 4.26?(92?% pred) FEV1 2.79 (76 % pred) + 12 % post BD 2.47 (66% pred) 2.43 (65% pred) 1.25?(34?% pred) 2.50?(70?% pred) Post BD 18% FEV1/FVC 0.65 0.62 0.69 0.44 0.59 Exhaled nitric oxide ([place]), 08/19/18: 67 03/04/18: 71 11/01/17: 135 (normal < 25). IMPRESSION: Moderate asthma, improved [place] today. ? RECOMMEND: 1. Continue Perforomist and Budesonide via nebulizer twice daily every day. 2. Continue Singulair 10 mg daily. 3. Continue Combivent Respimat 4 times daily as needed for shortness of breath, wheezing. I addressed the questions of the patient, and he expressed understanding and acceptance of my answers. Marivel Sarah PA-C [facility] [place] [address] [phone] Marivel Sarah PA-C 08/19/2018 3:42 PM Signed IMPRESSION: Moderate asthma, improved [place] today. ? RECOMMEND: 1. Continue Perforomist and Budesonide via nebulizer twice daily every day. 2. Continue Singulair 10 mg daily. 3. Continue Combivent Respimat 4 times daily as needed for shortness of breath, wheezing. Referring Provider: MARIVEL SARAH [[id number]] Allergies As of Date: 08/19/2018 Noted Allergy Reaction ADVAIR DISKUS (FLUTICASONE-SALMET*05/18/2017 14 - Other: See Comments Comments: Simran CODEINE 07/31/2005 8 - GI Upset Environmental [Other] 05/25/2011 16 - Unknown Comments: Cats, dogs, dust mites, grasses, weeds, ragweed FLONASE (FLUTICASONE PROPIONATE) 07/31/2005 Comments: MIGRAINE GABAPENTIN 10/24/2017 1 - Mental Status Change Comments: Suicidal ideations QVAR (BECLOMETHASONE DIPROPIONATE)05/18/2017 14 - Other: See Comments Comments: Simran SYMBICORT (BUDESONIDE-FORMOTEROL) 05/18/2017 14 - Other: See Comments Comments: Simran TETANUS-DIPHTHERIA TOXOIDS-TD 06/22/2006 7 - Swelling Comments: swelling at site and numbness in arm Date Reviewed: 08/19/2018 Reviewed by: Marivel Sarah - Fully Assessed Reason for Visit: Established Patient [175] Cmt: asthma Primary Visit Diagnosis:Asthma, moderate persistent, well- controlled [J45.40] Other Visit Diagnosis:Gastroesophageal reflux disease without esophagitis [K21.9] Order(s):Omeprazole (PRILOSEC) 40 mg capsuleTake 1 capsule by mouth once daily.Disp: 90 capsuleRfl: 3 NITRIC OXIDE, EXHALED [[id number]] Order #: [id number] FUTURE Prescriptions as of 08/19/2018 Sig: OMEPRAZOLE 40 MG CAPSULE,MELI* Take 1 capsule by mouth once * IPRATROPIUM 20 MCG-ALBUTEROL * 1 puffs QID for asthma PROMETHAZINE 25 MG TABLET Take 1 tablet by mouth every * RIZATRIPTAN 10 MG DISINTEGRAT* Take 1 tablet by mouth as nee* FEXOFENADINE 180 MG TABLET Take 1 tablet by mouth once d* HYDROCHLOROTHIAZIDE 12.5 MG C* TAKE 1 CAPSULE BY MOUTH ONCE * LISINOPRIL 20 MG TABLET Take 1 tablet by mouth once d* ATORVASTATIN 40 MG TABLET Take 1 tablet by mouth daily * FORMOTEROL FUMARATE 20 MCG/2 * Inhale 2 mL as instructed jonatan* CYCLOBENZAPRINE 10 MG TABLET Take 1 tablet by mouth three * HYDROCODONE 7.5 MG-IBUPROFEN * Take 1-2 tablets by mouth onc* BUDESONIDE 0.5 MG/2 ML SUSPEN* Use 2 mL via nebulizer twice * MONTELUKAST 10 MG TABLET TAKE ONE TABLET BY MOUTH ONCE* IPRATROPIUM-ALBUTEROL 0.5 MG-* Inhale 3 mL as instructed jonatan* ALBUTEROL SULFATE HFA 90 MCG/* Inhale 2 Puffs as instructed * NITROGLYCERIN 0.4 MG SUBLINGU* Dissolve 1 tablet under the t* TRIAMCINOLONE ACETONIDE 0.1 %* APPLY SPARINGLY TO AFFECTED A* KETOCONAZOLE 2 % TOPICAL CREAM Apply 1 application to affect* DESONIDE 0.05 % TOPICAL CREAM Apply 1 application to affect* LORAZEPAM 0.5 MG TABLET Take 1 tablet by mouth twice * HYDROCODONE 7.5 MG-IBUPROFEN * Take 1-2 tablets by mouth onc* HYDROCODONE 7.5 MG-IBUPROFEN * Take 1-2 tablets by mouth onc* Problem List As Of Date 08/19/2018 Noted Resolved ESOPHAGEAL REFLUX [K21.9] More... ALLERGIC RHINITIS NOS [J30.9] ASTHMA UNSPEC W STATUS ASTH [J45.902] 03/28/2007 BENIGN HYPERTENSION [I10] INVALID FOR* MIXED HYPERLIPIDEMIA [E78.2] INVALID FOR* GENERALIZED ANXIETY DIS [F41.1] INVALID FOR* ABDOMINAL PAIN( Right Upper Quadrant) [R10.11] INVALID FOR*03/05/2009 BENIGN NEOPLASM LG BOWEL [D12.6] INVALID FOR*03/28/2007 Displacement of Lumbar Intervertebral Disc with* More... IBS [K58.9] Mild persistent asthma without complication [J4* CARPAL TUNNEL SYNDROME [G56.00] DEPRESSION [F32.9] PERS HX COLONIC POLYPS [Z86.010] More... COMMON MIGRAINE [346.1] 10/22/2007 NON-ALCOHOLIC STEATOHEPATITIS [K76.9] INVALID FOR* More... 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] INVALID FOR* CRUZ (nonalcoholic steatohepatitis) [K75.81] INVALID FOR* Internal hemorrhoids without mention of complic*INVALID FOR* Dermatofibroma of right lower leg [D23.71] INVALID FOR* Neoplasm of uncertain behavior of skin [D48.5] INVALID FOR* Atypical nevus of lower leg [D22.70] INVALID FOR* Atypical nevus of abdominal wall [D22.5] INVALID FOR* Compound nevus of abdominal wall [D22.5] INVALID FOR* Intradermal melanocytic nevus [D22.9] INVALID FOR* Melanocytic nevi of trunk [D22.5] INVALID FOR* Actinic skin damage [L57.8] INVALID FOR* Tobacco abuse [Z72.0] INVALID FOR* Low back pain [M54.5] INVALID FOR* Lumbar degenerative disc disease [M51.36] INVALID FOR* Lumbosacral neuritis [M54.17] INVALID FOR* Anemia [D64.9] INVALID FOR* RB (rectal bleeding) [K62.5] INVALID FOR* SARAH (iron deficiency anemia) [D50.9] INVALID FOR* Iron malabsorption [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 Opiate dependence, continuous (HCC) [F11.20] INVALID FOR* Chronic pain [G89.29] INVALID FOR* Migraine without aura and without status migrai*INVALID FOR* Iron deficiency anemia due to chronic blood los*INVALID FOR* Sarcoidosis of lung (HCC) [D86.0] INVALID FOR* More... Other instructions from your clinician: IMPRESSION: Moderate asthma, improved [place] today. ? RECOMMEND: 1. Continue Perforomist and Budesonide via nebulizer twice daily every day. 2. Continue Singulair 10 mg daily. 3. Continue Combivent Respimat 4 times daily as needed for shortness of breath, wheezing. Prescriptions ordered this encounter Disp Refills Start End OMEPRAZOLE 40 MG CAPSULE,DELAYED REL* 90 c* 3 08/19/2018 Route: ORAL Sig: Take 1 capsule by mouth once daily. Medications Discontinued During This Encounter predniSONE (DELTASONE) 10 mg tablet 30 t* 0 03/04/2018 08/19/2018 Si tabs daily for 3 days, 3 tabs daily for 3 days, 2 tabs daily for 2 days, 1 tab daily for 3 days. Disc: Course of therapy completed Omeprazole (PRILOSEC) 40 mg capsule 90 c* 1 10/24/2017 08/19/2018 Route: ORAL Sig: Take 1 capsule by mouth once daily. Disc: Reason for discontinue is not on file. Disposition: Return in about 6 months (around 02/17/2019). Follow-up and Disposition History Recorded Encounter Status:Closed by MARIVEL SARAH on 08/19/18 INITAL EVALUATION (1) Observed: 07/15/2018 Status: F Source: [place] - PT 7:02 PM [facility] REPOSITORY [facility] [address] [place], [place] [address] Fax REHABILITATION SERVICES INITIAL EVALUATION MR#: [id number] Acct: [id number] Name: JAKE CHAIREZ Rep #: [id number] : 1975 43 From: Moises Pinedo PT, Cert. MDT, OCS Referring Dr.: Status: REG RCR Insurance: [employer] SELF PAY INSURANCE Patient's Visit Information JAKE CHAIREZ is a 43 year old M referred to Physical Therapy by RUDOLPH AGEE with a diagnosis of S/P LUMBAR SURGERY. Date of Evaluation: 07/12/18 Physical Therapist: Moises Pinedo PT, - Visit Plan Frequency: 2x /Week Duration: 4 Weeks Plan: PATIENT UNDERWENT S/P LUMBAR DISCTOMY L5-S1 JUN 18. PATIENT HAS DRAINAGE INSCION UNABLE TO LAY SUPINE. INTIATE LE FLEXABLITY,STRENGTHENING,POSTURAL EX'S,DLS,LUMBAR ROM - Subjective Subjective: This 43 y/o male presents to physical therapy with s/p lumbar surgery. Patient undwerwent s/p lumbar disectomy L5-S Jun 18 2018 at [facility] done by DR Flores.Patient d/c same. Patient has pain lumbar buttuck hamstring foot. Seen DR last Sunday. Recommended PT and if not better may do MRI. Patient has not RTW at [place]. C/O parathesia/tingling to foot. Symptoms worse with walking ,standing,ADL'S. Symptoms some better with sitting. Patient does have drainage in inscion. and has Dr christina knows that lumbar inscion is draining. Coughing/sneezing increase symptoms. Bowel/bladder good. Patient has had prior PT. Patient tried injections in past which made symptoms worse. Patient surgery affect QOL ,RTW and ADL'S. SOCAIL: single. VOCATION: [employer]. - Pain Bilateral Back Pain Intensity (Out of 10): 7 Pain Intensity Range: 10 Left Lower Extremity Pain Intensity (Out of 10): 6 Pain Intensity Range: 10 Comment: HAMSTRING TO BUTTUCK - Objective POSTURE: mild foward head rounded shoulders. INSCION: drainage banage intact. GAIT: mild foward posture reciprocal pattern. NEURO: c/o parathesia/tingling leg foot ,reflexes L3-4,L4-5,L5-S1. MMT: quads 3+/5 + ANR,hams 3+/5 left ,right quads/hams 4-/5,hip left 3+/5,right 4-/5,ankle 4-/5 left. LUMBAR ROM: flexion mod loss,extension severe loss,side glides mod loss. FLEXABILITY: hams mod/severe left, right mod limited - Special Tests L/S Slump test left side: Positive L/S Slump test right side: Negative L/S Left Straight Leg Raise: Positive L/S Right Straight Leg Raise: Negative - Goals Goal 1:: Independant with HEP Goal Time Frame: 4-6 Weeks Goal 2:: Patient to be Independant with posture/body mechanics Goal Time Frame: 4-6 Weeks Goal 3:: Patient to increase lumnar ROM for fubnction of recovery. Goal Time Frame: 4-6 Weeks Goal 4:: Patient decrease pain lumbar and left leg by 50% or greater to improve function with walking and staning. Goal Time Frame: 4-6 Weeks Goal 5:: Patient increase strength left leg by 4-/5 to improve function with ADL'S Goal Time Frame: 4-6 Weeks Goal 6:: Patient to improve HALIMA back score by 5 points to improve QOL Goal Time Frame: 4-6 Weeks - Rehabilitation Potential Physical Therapy Diagnosis: This patient underwent s/p lumbar disectomy L5-S1with pain ,inscion drainage,weakness left leg ,pooro ROM inmpairs ADL'S and function wiith RTW Rehabilitation Potential: Good - Anticipated Interventions Patient/Client Instruction: Educate patient on: Condition, Plan of Care For the Purpose of:: To decrease pain, To increase ROM, To improve muscle performance and motor function, To improve ability to perform ADL's, To increase tolerance to activity/condition/position, To improve ability of physical actions for home/community/work/leisure, To improve health of tissue, To decrease soft tissue restriction, To increase flexibility/ROM, To improve ability to perform tasks related to life management Therapeutic Exercise to Include: Strength training, Body mechanics, Postural training, Flexibilty training, Active ROM, Dynamic Lumbar Stabilization For the Purpose of:: To decrease pain, To increase ROM, To improve muscle performance and motor function, To increase tolerance to activity/condition/position, To improve performance and independence with ADL's, To improve ability of physical actions for home/community/work/leisure, To improve health of tissue, To decrease soft tissue restriction, To increase flexibility/ROM, To reduce risk of recurrence, To improve ability to perform tasks related to life management TENS: Yes IF ES: Yes Cryotherapy (ice pack, ice massage): Yes For the Purpose of:: To decrease pain, To decrease swelling/inflammation, To improve health of tissue, To decrease soft tissue restriction, To increase flexibility/ROM Thank you for the opportunity to evaluate your patient. For Medicare and Medicare HMO plans, please review the plan of care and approve it. It will need to be FAXED BACK to us at [phone] for Medicare purposes. Please let me know if there are questions or concerns regarding this plan of care. Physician Signature: Date: <Electronically signed by Moises Pinedo PT, Cert. MARIE, JANNET> 07/15/18 1902 CC: Avni Serrato DO JEWEL Signed For Medicare only, by signing this I certify the plan of care. Physicians Signature Date VENOUS DUPLEX LOWER Observed: 06/29/2018 Status: F Source: [place] EXTREMITY 10:36 AM [facility] REPOSITORY [facility] Cardiovascular Services [address] [address] Venous Duplex US, Unilateral 06/25/18 0912 MR#: [id number] Acct: [id number] Name: JAKE CHAIREZ Rep #: [id number] : 1975 43 From: Robinson Simons MD Attending Dr: Suzi Granados Status: REG CLI Ordering Dr: Suzi Granados MD Date: 06/25/18 Location: CVS Sex: M C Admitted: Reason For Study: LLE pain RIGHT LEFT CFV is compressible, spontaneous, phasic, GSV is normal. competent and demonstrates normal CFV is compressible, spontaneous, phasic, augmentation. competent, and demonstrates normal Procedure augmentation. Exam performed in department. FV is compressible, spontaneous, phasic, A preliminary report was called and/or faxed competent and demonstrates normal to Ben. augmentation. POP V is compressible, spontaneous, phasic, competent and demonstrates normal augmentation. T/P Trunk is compressible. PTV is compressible. LT PerV is compressible. Interpretation Summary Deep veins of the left lower extremity are patent and compressible segmentally. There is no evidence of left lower extremity deep vein thrombosis. Valvular competence appears intact within the proximal deep venous system on the left . The left greater saphenous vein appears patent and compressible segmentally. Ordering Physician: Suzi Granados Referring Physician: Avni Serrato Performed By: Brittany Lenz RVT and Student 06/29/18 1035 Date Robinson Simons MD CC: Suzi Granados; Avni Serrato, Date Dictated: 06/25/18 0912 Date Transcribed: 06/29/[address] Driver: Signed PROGRESS Observed: 03/25/2018 Status: COMPLETED Source: [place] 4:42 PM [facility] REPOSITORY HNO ID: [id number] Author: Rah Theodore Service: (none) Author Type: Physician Type: Progress Notes Filed: 03/25/2018 5:10 PM Note Text: Diagnosis: 1) SARAH. HPI: Patient is a 42-year-old male who has a history of bleeding internal hemorrhoids. He was admitted to [facility] in mid December of this year for gino rectal bleeding. He was found to have hemoglobin of 6 and received a 2 unit red blood cell transfusion, 3 doses of IV iron (as he recalls) and then underwent an upper endoscopy that was unremarkable. He also underwent a colonoscopy and was found to have palpable internal hemorrhoids on digital rectal exam. On colonoscopy he was found to have a sessile polyp in the rectosigmoid at approximately 20 cm. This was removed in piecemeal fashion. As the scope was further withdrawn he was noted to have an unremarkable rectosigmoid area. On retroflexion in the rectum the patient was noted to have normal to slightly enlarged internal hemorrhoids with no signs of recent bleeding. The pathology from the polyp demonstrated an adenomatous polyp. 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 Presents for ongoing hematologic management. Interim history: His been feeling pretty well the past year. He has been on a couple tapering doses of prednisone for the pulmonary sarcoidosis. He is not had any unusual bleeding or unexplained bruising. He notices some times the jugulodigastric lymph nodes fluctuate in size. He is tolerating a daily oral iron supplement pretty well. He takes it at bedtime is taking in the morning causes some nausea. He is undergone hemorrhoidal banding but still has occasional significant hemorrhoidal bleeding. His CBC is within normal this past year. He still struggling with chronic lower back pain and seeing pain management on a regular basis. Quit smoking just over year ago. PMH, medications and allergies as below personally reviewed by me today. Any changes documented in appropriate section. ROS: Constitutional: Denies episodes of fever and night sweats. Neuro: Denies HARRISON, vertigo, dizziness and imbalance. HEENT: No recent change in voice, vision or hearing. Resp: Denies cough, wheeze and hemoptysis. Denies shortness of breath at rest. CVS: Denies exertional chest pain, PND, orthopnea and LE edema. GI: Denies dysgeusia. Denies symptoms of stomatitis. Denies dysphagia and odynophagia. Denies reflux, n/v, change in bowel habits and abdominal pain. : Denies dysuria or gross hematuria. No symptoms of bladder outlet obstruction. Endo: Denies hot flashes. Denies polyuria and polydipsia. Denies heat and cold intolerance. Musculoskeletal: See above. Derm: Denies rash. Denies jaundice and diffuse pruritis. Heme: See above. Psych: Normal mood. PHYSICAL EXAM: Vitals: Blood pressure 137/93, pulse 93, temperature 36.9 ?C (98.4 ?F), temperature source Oral, weight 77.3 kg (170 lb 8 oz). Well-appearing and in no acute distress. EYES: Sclerae are anicteric bilaterally. NECK: Supple. No enlargement of thyroid. LYMPHATIC: No palpable peripheral adenopathy. RESPIRATORY: Inspiratory breath sounds are of normal intensity in all wilcox. CARDIOVASCULAR: Rhythm is regular. ABDOMEN: The abdomen is nondistended. No organomegaly. No tenderness. Extremities: No swelling or edema. SKIN: No jaundice or rash. 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 No focal motor weakness. 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 -He had colonoscopy in January 2017 that showed no evidence of lower GI bleed. -Advised him to decrease iron to every other night. -Reviewed blood counts with him over the past year. Plan: -He can follow-up here on an as-needed basis. Rah Theodore DO CNOVSP Observed: 03/25/2018 Status: COMPLETED Source: [place] 4:30 PM [facility] REPOSITORY Visit (SP) Office (HEML[place]ABETH) JAKE CHAIREZ ([id number]) 1975 M Date Time Provider Department 03/25/18 4:30 PM RAH THEODORE During your visit today, we recorded the following information about you: Temperature Pulse Blood pressure Weight 98.4 degrees 93/minute 137/93 77.3 kg Rah Theodore DO 03/25/2018 5:10 PM Signed Diagnosis: 1) SARAH. HPI: Patient is a 42-year-old male who has a history of bleeding internal hemorrhoids. He was admitted to [facility] in mid December of this year for gino rectal bleeding. He was found to have hemoglobin of 6 and received a 2 unit red blood cell transfusion, 3 doses of IV iron (as he recalls) and then underwent an upper endoscopy that was unremarkable. He also underwent a colonoscopy and was found to have palpable internal hemorrhoids on digital rectal exam. On colonoscopy he was found to have a sessile polyp in the rectosigmoid at approximately 20 cm. This was removed in piecemeal fashion. As the scope was further withdrawn he was noted to have an unremarkable rectosigmoid area. On retroflexion in the rectum the patient was noted to have normal to slightly enlarged internal hemorrhoids with no signs of recent bleeding. The pathology from the polyp demonstrated an adenomatous polyp. MCFP PPI use. Presents for ongoing hematologic management. Interim history: His been feeling pretty well the past year. He has been on a couple tapering doses of prednisone for the pulmonary sarcoidosis. He is not had any unusual bleeding or unexplained bruising. He notices some times the jugulodigastric lymph nodes fluctuate in size. He is tolerating a daily oral iron supplement pretty well. He takes it at bedtime is taking in the morning causes some nausea. He is undergone hemorrhoidal banding but still has occasional significant hemorrhoidal bleeding. His CBC is within normal this past year. He still struggling with chronic lower back pain and seeing pain management on a regular basis. Quit smoking just over year ago. PMH, medications and allergies as below personally reviewed by me today. Any changes documented in appropriate section. ROS: Constitutional: Denies episodes of fever and night sweats. Neuro: Denies HARRISON, vertigo, dizziness and imbalance. HEENT: No recent change in voice, vision or hearing. Resp: Denies cough, wheeze and hemoptysis. Denies shortness of breath at rest. CVS: Denies exertional chest pain, PND, orthopnea and LE edema. GI: Denies dysgeusia. Denies symptoms of stomatitis. Denies dysphagia and odynophagia. Denies reflux, n/v, change in bowel habits and abdominal pain. : Denies dysuria or gross hematuria. No symptoms of bladder outlet obstruction. Endo: Denies hot flashes. Denies polyuria and polydipsia. Denies heat and cold intolerance. Musculoskeletal: See above. Derm: Denies rash. Denies jaundice and diffuse pruritis. Heme: See above. Psych: Normal mood. PHYSICAL EXAM: Vitals: Blood pressure 137/93, pulse 93, temperature 36.9 ?C (98.4 ?F), temperature source Oral, weight 77.3 kg (170 lb 8 oz). Well-appearing and in no acute distress. EYES: Sclerae are anicteric bilaterally. NECK: Supple. No enlargement of thyroid. LYMPHATIC: No palpable peripheral adenopathy. RESPIRATORY: Inspiratory breath sounds are of normal intensity in all wilcox. CARDIOVASCULAR: Rhythm is regular. ABDOMEN: The abdomen is nondistended. No organomegaly. No tenderness. Extremities: No swelling or edema. SKIN: No jaundice or rash. 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 No focal motor weakness. 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 -He had colonoscopy in January 2017 that showed no evidence of lower GI bleed. -Advised him to decrease iron to every other night. -Reviewed blood counts with him over the past year. Plan: -He can follow-up here on an as-needed basis. Rah Theodore DO Referring Provider: RAH THEODORE [[id number]] Allergies As of Date: 03/25/2018 Noted Allergy Reaction ADVAIR DISKUS (FLUTICASONE-SALMET*05/18/2017 14 - Other: See Comments Comments: Kateush CODEINE 07/31/2005 8 - GI Upset Environmental [Other] 05/25/2011 16 - Unknown Comments: Cats, dogs, dust mites, grasses, weeds, ragweed FLONASE (FLUTICASONE PROPIONATE) 07/31/2005 Comments: MIGRAINE GABAPENTIN 10/24/2017 1 - Mental Status Change Comments: Suicidal ideations QVAR (BECLOMETHASONE DIPROPIONATE)05/18/2017 14 - Other: See Comments Comments: Thrush SYMBICORT (BUDESONIDE-FORMOTEROL) 05/18/2017 14 - Other: See Comments Comments: Kateush TETANUS-DIPHTHERIA TOXOIDS-TD 06/22/2006 7 - Swelling Comments: swelling at site and numbness in arm Date Reviewed: 03/25/2018 Reviewed by: Sindy Mitchell - Fully Assessed Reason for Visit: Established Patient [175] Primary Visit Diagnosis:Iron deficiency anemia due to chronic blood loss [D50.0] Follow-up and Disposition History Recorded Prescriptions as of 03/25/2018 Sig: HYDROCHLOROTHIAZIDE 12.5 MG C* TAKE 1 CAPSULE BY MOUTH ONCE * LISINOPRIL 20 MG TABLET Take 1 tablet by mouth once d* ATORVASTATIN 40 MG TABLET Take 1 tablet by mouth daily * FEXOFENADINE 180 MG TABLET Take 1 tablet by mouth once d* PROMETHAZINE 25 MG TABLET Take 1 tablet by mouth every * FORMOTEROL FUMARATE 20 MCG/2 * Inhale 2 mL as instructed jonatan* CYCLOBENZAPRINE 10 MG TABLET Take 1 tablet by mouth three * OMEPRAZOLE 40 MG CAPSULE,MELI* Take 1 capsule by mouth once * HYDROCODONE 7.5 MG-IBUPROFEN * Take 1-2 tablets by mouth onc* BUDESONIDE 0.5 MG/2 ML SUSPEN* Use 2 mL via nebulizer twice * MONTELUKAST 10 MG TABLET TAKE ONE TABLET BY MOUTH ONCE* IPRATROPIUM 20 MCG-ALBUTEROL * 1 puffs QID for asthma IPRATROPIUM-ALBUTEROL 0.5 MG-* Inhale 3 mL as instructed jonatan* ALBUTEROL SULFATE HFA 90 MCG/* Inhale 2 Puffs as instructed * RIZATRIPTAN 10 MG DISINTEGRAT* Take 1 tablet by mouth as nee* NITROGLYCERIN 0.4 MG SUBLINGU* Dissolve 1 tablet under the t* TRIAMCINOLONE ACETONIDE 0.1 %* APPLY SPARINGLY TO AFFECTED A* KETOCONAZOLE 2 % TOPICAL CREAM Apply 1 application to affect* DESONIDE 0.05 % TOPICAL CREAM Apply 1 application to affect* LORAZEPAM 0.5 MG TABLET Take 1 tablet by mouth twice * PREDNISONE 10 MG TABLET 4 tabs daily for 3 days, 3 ta* HYDROCODONE 7.5 MG-IBUPROFEN * Take 1-2 tablets by mouth onc* HYDROCODONE 7.5 MG-IBUPROFEN * Take 1-2 tablets by mouth onc* Medication notes this encounter HYDROCODONE 7.5 MG-IBUPROFEN 200 MG TABLET >> Sindy Mitchell MA 03/25/2018 4:14 PM >> SINDY MITCHELL MA SunMar 25, 2018 4:14 PM Duplicate HYDROCODONE 7.5 MG-IBUPROFEN 200 MG TABLET >> Sindy Mitchell MA 03/25/2018 4:14 PM >> SINDY MITCHELL MA [facility] Mar 25, 2018 4:14 PM Duplicate Problem List As Of Date 03/25/2018 Noted Resolved ESOPHAGEAL REFLUX [K21.9] Priority: Severe More... ALLERGIC RHINITIS NOS [J30.9] Priority: Moderate ASTHMA UNSPEC W STATUS ASTH [J45.902] 03/28/2007 BENIGN HYPERTENSION [I10] INVALID FOR* Priority: Moderate MIXED HYPERLIPIDEMIA [E78.2] INVALID FOR* Priority: Severe GENERALIZED ANXIETY DIS [F41.1] INVALID FOR* Priority: Mild ABDOMINAL PAIN( Right Upper Quadrant) [R10.11] INVALID FOR*03/05/2009 Priority: Moderate BENIGN NEOPLASM LG BOWEL [D12.6] INVALID FOR*03/28/2007 Displacement of Lumbar Intervertebral Disc with* Priority: Severe More... IBS [K58.9] Priority: Moderate Mild persistent asthma without complication [J4* Priority: Moderate CARPAL TUNNEL SYNDROME [G56.00] Priority: Mild DEPRESSION [F32.9] Priority: Moderate PERS HX COLONIC POLYPS [Z86.010] Priority: Severe More... COMMON MIGRAINE [346.1] 10/22/2007 Priority: Moderate NON-ALCOHOLIC STEATOHEPATITIS [K76.9] INVALID FOR* More... 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] INVALID FOR* CRUZ (nonalcoholic steatohepatitis) [K75.81] INVALID FOR* Internal hemorrhoids without mention of complic*INVALID FOR* Dermatofibroma of right lower leg [D23.71] INVALID FOR* Neoplasm of uncertain behavior of skin [D48.5] INVALID FOR* Atypical nevus of lower leg [D22.70] INVALID FOR* Atypical nevus of abdominal wall [D22.5] INVALID FOR* Compound nevus of abdominal wall [D22.5] INVALID FOR* Intradermal melanocytic nevus [D22.9] INVALID FOR* Melanocytic nevi of trunk [D22.5] INVALID FOR* Actinic skin damage [L57.8] INVALID FOR* Tobacco abuse [Z72.0] INVALID FOR* Low back pain [M54.5] INVALID FOR* Lumbar degenerative disc disease [M51.36] INVALID FOR* Lumbosacral neuritis [M54.17] INVALID FOR* Anemia [D64.9] INVALID FOR* RB (rectal bleeding) [K62.5] INVALID FOR* SARAH (iron deficiency anemia) [D50.9] INVALID FOR* Iron malabsorption [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 Opiate dependence, continuous (HCC) [F11.20] INVALID FOR* Chronic pain [G89.29] INVALID FOR* Migraine without aura and without status migrai*INVALID FOR* Iron deficiency anemia due to chronic blood los*INVALID FOR* Sarcoidosis of lung (HCC) [D86.0] INVALID FOR* More... Encounter Status:Closed by RAH THEODORE DO on 03/25/18 IRON AND TIBC Collected: 03/25/2018 Status: F Source: [place] 4:05 PM [facility] REPOSITORY TYPE CODE TESTS RESULT OUT OF REFERENCE UNITS RANGE LAB IRN 41-186 ug/dL Iron 74 LAB TIBC 232-386 ug/dL TIBC High 431 LAB SAT 15-57 % Transferrin Saturatn 17 Performed By: #### IRON, FERR #### [facility] [address] [place], [place] [address] FERRITIN Collected: 03/25/2018 Status: F Source: [place] 4:05 PM [facility] REPOSITORY TYPE CODE TESTS RESULT OUT OF REFERENCE UNITS RANGE LAB FERR 30.3-565.7 ng/mL Ferritin 132.6 Performed By: #### IRON, FERR #### [facility] [address] [place], [place] [address] HÉCTOR ABS GR + CBC Collected: 03/25/2018 Status: F Source: [place] 4:04 PM [facility] REPOSITORY TYPE CODE TESTS RESULT OUT OF REFERENCE UNITS RANGE LAB WWBC 3.70-11.00 k/uL [place] WBC 7.70 LAB WRBC 4.20-6.00 m/uL [place] RBC 4.89 LAB WHGB 13.0-17.0 g/dL [place] Hemoglobin 14.9 LAB WHCT 39.0-51.0 % [place] Hematocrit 43.9 LAB WMCV 80.0-100.0 fL [place] MCV 89.8 LAB WMCH 26.0-34.0 pg [place] MCH 30.5 LAB WMCHC 30.5-36.0 g/dL [place] MCHC 33.9 LAB WRDW 11.5-15.0 % [place] RDW 14.0 LAB WPLT 150-400 k/uL [place] Platelet Cnt 187 LAB WMPV 9.0-12.7 fL [place] MPV 9.3 Result Comment: Test performed at: [facility], [address] [place] [address]., [place] [address]. LAB ABGRAN 1.45-7.50 k/uL Absol Gran 5.81 Count PROGRESS Observed: 03/04/2018 Status: COMPLETED Source: [place] 3:00 PM [facility] REPOSITORY HNO ID: [id number] Author: Marivel Sarah Service: (none) Author Type: Physician Systems Architect Type: Progress Notes Filed: 03/04/2018 3:15 PM Note Text: [facility] [place], 03/04/18: INTERVAL HISTORY: The patient is here for follow up of asthma; the last Pulmonary Clinic visit was 11/01/17. The patient admits to compliance with prescribed maintenance Rx. There have been no ED visit(s) for the management of asthma exacerbation. No hospitalization(s) for management of asthma exacerbation. Has used no prednisone for the management of exacerbation. Increase in cough. Thick, clear sputum. Feels like I can't clear my throat. No hemoptysis. No pleuritic chest pain. Wheezing. No dyspnea. No nocturnal awakenings. No fevers or chills. Twice daily nebulizer treatments. No disruption in taste or voice associated with use of inhaled corticosteroid. No tremor, palpitations, or muscle cramping associated with bronchodilator inhalation. PMH: Updated with patient today. FAMH: Updated with patient today. SOCH: Updated with patient today. ROS: General: Generally feels good. Appetite good. Weight stable. Eyes, Ears, nose, throat: No post nasal drip, rhinorrhea, purulent nasal discharge, epistaxis. No hoarseness. Vision stable. Cardiac: No angina, edema, orthopnea. GI: No heartburn, dysphagia, diarrhea. Occasional nausea. Uro/SERVICE DISPATCHER: No dysuria, hesitancy, nocturia. Musculoskeletal: Chronic back pain. Neuro: No headache, focal weakness, tremor. Skin: No rash. Otherwise negative. There is no immunization history on file for this patient. Allergies were verified and updated, and medications were reconciled with the patient at this visit. PHYSICAL EXAMINATION: BP 136/82 Pulse 108 Resp 16 Ht 5' 7 (1.70m) Wt 169 lb (76.7kg) SpO2 99% BMI 26.46 kg/(m2). Gen: No acute distress. Cooperative with examination. ENT: Nares clear. Oral hygeine good. Pharynx clear. Resp: No stridor, accessory respiratory muscle use. No crackles, wheezes. CV: Regular rythm. Heart tones normal. Radial pulses normal. Abd: Non distended. MSK: No kyphoscoliosis. Ext: Warm and well perfused. No cyanosis. Skin: No rash, eczema, urticaria. Neuro: Mental status normal. No tremor. DATA REVIEW: ? DATE: 03/04/18 07/16/17 06/14/17 05/18/17 07/06/14 FVC 4.30 (92 % pred) 3.98 (85% pred) 3.53 (75% pred) 2.85?(61?% pred) 4.26?(92?% pred) FEV1 2.79 (76 % pred) + 12 % post BD 2.47 (66% pred) 2.43 (65% pred) 1.25?(34?% pred) 2.50?(70?% pred) Post BD 18% FEV1/FVC 0.65 0.62 0.69 0.44 0.59 Exhaled nitric oxide (Salvador), 03/04/18: 71 (normal < 25). 11/01/17: 135 IMPRESSION: Symptoms and elevated Salvador today consistent with exacerbation of underlying persistent asthma. ? RECOMMEND: 1. Continue Perforomist and Budesonide via nebulizer twice daily every day. 2. Prednisone 40 mg daily for 3 days, 30 mg daily for 3 days, 20 mg daily for 3 days, 10 mg daily for 3 days. 3. Continue Singulair 10 mg daily. 4. Continue Combivent Respimat 4 times daily as needed for shortness of breath, wheezing. I addressed the questions of the patient, and he expressed understanding and acceptance of my answers. Marivel Sarah PA-C [facility] [place] [address] [phone] CNOV Observed: 03/04/2018 Status: COMPLETED Source: [place] 3:00 PM [facility] REPOSITORY Office Visit (PULMWS) JAKE CHAIREZ ([id number]) 1975 M Date Time Provider Department 03/04/18 3:00 PM MARIVEL SARAH PULMWS During your visit today, we recorded the following information about you: Pulse Respiration Blood pressure Weight 108/minute 16/minute 136/82 76.7 kg Height 1.702 m Chandrika Campa RETAIL CONSULTANT 03/04/2018 2:58 PM Signed Intake information documented in the prior visit with Myriam Moore, RECORDER HELPER SEISMOGRAPH today. Marivel Sarah PA-C 03/04/2018 3:15 PM Signed [facility] [place], 03/04/18: INTERVAL HISTORY: The patient is here for follow up of asthma; the last Pulmonary Clinic visit was 11/01/17. The patient admits to compliance with prescribed maintenance Rx. There have been no ED visit(s) for the management of asthma exacerbation. No hospitalization(s) for management of asthma exacerbation. Has used no prednisone for the management of exacerbation. Increase in cough. Thick, clear sputum. Feels like I can't clear my throat. No hemoptysis. No pleuritic chest pain. Wheezing. No dyspnea. No nocturnal awakenings. No fevers or chills. Twice daily nebulizer treatments. No disruption in taste or voice associated with use of inhaled corticosteroid. No tremor, palpitations, or muscle cramping associated with bronchodilator inhalation. PMH: Updated with patient today. FAMH: Updated with patient today. SOCH: Updated with patient today. ROS: General: Generally feels good. Appetite good. Weight stable. Eyes, Ears, nose, throat: No post nasal drip, rhinorrhea, purulent nasal discharge, epistaxis. No hoarseness. Vision stable. Cardiac: No angina, edema, orthopnea. GI: No heartburn, dysphagia, diarrhea. Occasional nausea. Uro/SERVICE DISPATCHER: No dysuria, hesitancy, nocturia. Musculoskeletal: Chronic back pain. Neuro: No headache, focal weakness, tremor. Skin: No rash. Otherwise negative. There is no immunization history on file for this patient. Allergies were verified and updated, and medications were reconciled with the patient at this visit. PHYSICAL EXAMINATION: BP 136/82 Pulse 108 Resp 16 Ht 5' 7 (1.70m) Wt 169 lb (76.7kg) SpO2 99% BMI 26.46 kg/(m2). Gen: No acute distress. Cooperative with examination. ENT: Nares clear. Oral hygeine good. Pharynx clear. Resp: No stridor, accessory respiratory muscle use. No crackles, wheezes. CV: Regular rythm. Heart tones normal. Radial pulses normal. Abd: Non distended. MSK: No kyphoscoliosis. Ext: Warm and well perfused. No cyanosis. Skin: No rash, eczema, urticaria. Neuro: Mental status normal. No tremor. DATA REVIEW: ? DATE: 06/25/18 1106/14/17 05/18/17 07/06/14 FVC 4.30 (92 % pred) 3.98 (85% pred) 3.53 (75% pred) 2.85?(61?% pred) 4.26?(92?% pred) FEV1 2.79 (76 % pred) + 12 % post BD 2.47 (66% pred) 2.43 (65% pred) 1.25?(34?% pred) 2.50?(70?% pred) Post BD 18% FEV1/FVC 0.65 0.62 0.69 0.44 0.59 Exhaled nitric oxide (Salvador), 03/04/18: 71 (normal < 25). 11/01/17: 135 IMPRESSION: Symptoms and elevated Salvador today consistent with exacerbation of underlying persistent asthma. ? RECOMMEND: 1. Continue Perforomist and Budesonide via nebulizer twice daily every day. 2. Prednisone 40 mg daily for 3 days, 30 mg daily for 3 days, 20 mg daily for 3 days, 10 mg daily for 3 days. 3. Continue Singulair 10 mg daily. 4. Continue Combivent Respimat 4 times daily as needed for shortness of breath, wheezing. I addressed the questions of the patient, and he expressed understanding and acceptance of my answers. Marivel Sarah PA-C [facility] [place] [address] [phone] Marivel Sarah PA-C 03/04/2018 3:13 PM Signed IMPRESSION: Symptoms and elevated Salvador today consistent with exacerbation of underlying persistent asthma. ? RECOMMEND: 1. Continue Perforomist and Budesonide via nebulizer twice daily every day. 2. Prednisone 40 mg daily for 3 days, 30 mg daily for 3 days, 20 mg daily for 3 days, 10 mg daily for 3 days. 3. Continue Singulair 10 mg daily. 4. Continue Combivent Respimat 4 times daily as needed for shortness of breath, wheezing. Referring Provider: MARIVEL SARAH [[id number]] Allergies As of Date: 03/04/2018 Noted Allergy Reaction ADVAIR DISKUS (FLUTICASONE-SALMET*05/18/2017 14 - Other: See Comments Comments: Simran CASH 07/31/2005 8 - GI Upset Environmental [Other] 05/25/2011 16 - Unknown Comments: Cats, dogs, dust mites, grasses, weeds, ragweed FLONASE (FLUTICASONE PROPIONATE) 07/31/2005 Comments: MIGRAINE GABAPENTIN 10/24/2017 1 - Mental Status Change Comments: Suicidal ideations QVAR (BECLOMETHASONE DIPROPIONATE)05/18/2017 14 - Other: See Comments Comments: Thrush SYMBICORT (BUDESONIDE-FORMOTEROL) 05/18/2017 14 - Other: See Comments Comments: Kateush TETANUS-DIPHTHERIA TOXOIDS-TD 06/22/2006 7 - Swelling Comments: swelling at site and numbness in arm Date Reviewed: 03/04/2018 Reviewed by: Marivel Sarah - Fully Assessed Reason for Visit: Established Patient [175] Cmt: asthma Primary Visit Diagnosis:Asthma, moderate persistent, poorly- controlled [J45.40] Order(s):NITRIC OXIDE, EXHALED [[id number]] Order #: [id number] FUTURE predniSONE (DELTASONE) 10 mg tablet4 tabs daily for 3 days, 3 tabs daily for 3 days, 2 tabs daily for 2 days, 1 tab daily for 3 days.Disp: 30 tabletRfl: 0 Prescriptions as of 03/04/2018 Sig: HYDROCHLOROTHIAZIDE 12.5 MG C* TAKE 1 CAPSULE BY MOUTH ONCE * LISINOPRIL 20 MG TABLET Take 1 tablet by mouth once d* ATORVASTATIN 40 MG TABLET Take 1 tablet by mouth daily * FEXOFENADINE 180 MG TABLET Take 1 tablet by mouth once d* PROMETHAZINE 25 MG TABLET Take 1 tablet by mouth every * FORMOTEROL FUMARATE 20 MCG/2 * Inhale 2 mL as instructed jonatan* CYCLOBENZAPRINE 10 MG TABLET Take 1 tablet by mouth three * OMEPRAZOLE 40 MG CAPSULE,MELI* Take 1 capsule by mouth once * HYDROCODONE 7.5 MG-IBUPROFEN * Take 1-2 tablets by mouth onc* BUDESONIDE 0.5 MG/2 ML SUSPEN* Use 2 mL via nebulizer twice * MONTELUKAST 10 MG TABLET TAKE ONE TABLET BY MOUTH ONCE* IPRATROPIUM 20 MCG-ALBUTEROL * 1 puffs QID for asthma IPRATROPIUM-ALBUTEROL 0.5 MG-* Inhale 3 mL as instructed jonatan* ALBUTEROL SULFATE HFA 90 MCG/* Inhale 2 Puffs as instructed * RIZATRIPTAN 10 MG DISINTEGRAT* Take 1 tablet by mouth as nee* TRIAMCINOLONE ACETONIDE 0.1 %* APPLY SPARINGLY TO AFFECTED A* KETOCONAZOLE 2 % TOPICAL CREAM Apply 1 application to affect* DESONIDE 0.05 % TOPICAL CREAM Apply 1 application to affect* LORAZEPAM 0.5 MG TABLET Take 1 tablet by mouth twice * PREDNISONE 10 MG TABLET 4 tabs daily for 3 days, 3 ta* HYDROCODONE 7.5 MG-IBUPROFEN * Take 1-2 tablets by mouth onc* HYDROCODONE 7.5 MG-IBUPROFEN * Take 1-2 tablets by mouth onc* NITROGLYCERIN 0.4 MG SUBLINGU* Dissolve 1 tablet under the t* Problem List As Of Date 03/04/2018 Noted Resolved ESOPHAGEAL REFLUX [K21.9] Priority: Severe More... ALLERGIC RHINITIS NOS [J30.9] Priority: Moderate ASTHMA UNSPEC W STATUS ASTH [J45.902] 03/28/2007 BENIGN HYPERTENSION [I10] INVALID FOR* Priority: Moderate MIXED HYPERLIPIDEMIA [E78.2] INVALID FOR* Priority: Severe GENERALIZED ANXIETY DIS [F41.1] INVALID FOR* Priority: Mild ABDOMINAL PAIN( Right Upper Quadrant) [R10.11] INVALID FOR*03/05/2009 Priority: Moderate BENIGN NEOPLASM LG BOWEL [D12.6] INVALID FOR*03/28/2007 Displacement of Lumbar Intervertebral Disc with* Priority: Severe More... IBS [K58.9] Priority: Moderate Mild persistent asthma without complication [J4* Priority: Moderate CARPAL TUNNEL SYNDROME [G56.00] Priority: Mild DEPRESSION [F32.9] Priority: Moderate PERS HX COLONIC POLYPS [Z86.010] Priority: Severe More... COMMON MIGRAINE [346.1] 10/22/2007 Priority: Moderate NON-ALCOHOLIC STEATOHEPATITIS [K76.9] INVALID FOR* More... 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] INVALID FOR* CRUZ (nonalcoholic steatohepatitis) [K75.81] INVALID FOR* Internal hemorrhoids without mention of complic*INVALID FOR* Dermatofibroma of right lower leg [D23.71] INVALID FOR* Neoplasm of uncertain behavior of skin [D48.5] INVALID FOR* Atypical nevus of lower leg [D22.70] INVALID FOR* Atypical nevus of abdominal wall [D22.5] INVALID FOR* Compound nevus of abdominal wall [D22.5] INVALID FOR* Intradermal melanocytic nevus [D22.9] INVALID FOR* Melanocytic nevi of trunk [D22.5] INVALID FOR* Actinic skin damage [L57.8] INVALID FOR* Tobacco abuse [Z72.0] INVALID FOR* Low back pain [M54.5] INVALID FOR* Lumbar degenerative disc disease [M51.36] INVALID FOR* Lumbosacral neuritis [M54.17] INVALID FOR* Anemia [D64.9] INVALID FOR* RB (rectal bleeding) [K62.5] INVALID FOR* SARAH (iron deficiency anemia) [D50.9] INVALID FOR* Iron malabsorption [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 Opiate dependence, continuous (HCC) [F11.20] INVALID FOR* Chronic pain [G89.29] INVALID FOR* Migraine without aura and without status migrai*INVALID FOR* Iron deficiency anemia due to chronic blood los*INVALID FOR* Sarcoidosis of lung (HCC) [D86.0] INVALID FOR* More... Other instructions from your clinician: IMPRESSION: Symptoms and elevated Salvador today consistent with exacerbation of underlying persistent asthma. ? RECOMMEND: 1. Continue Perforomist and Budesonide via nebulizer twice daily every day. 2. Prednisone 40 mg daily for 3 days, 30 mg daily for 3 days, 20 mg daily for 3 days, 10 mg daily for 3 days. 3. Continue Singulair 10 mg daily. 4. Continue Combivent Respimat 4 times daily as needed for shortness of breath, wheezing. Visit Notes: >> Chandrika Campa LPN SunMar 04, 2018 2:56 PM Status: Signed Intake information documented in the prior visit with Myriam Moore RECORDER HELPER SEISMOGRAPH today. Prescriptions ordered this encounter Disp Refills Start End PREDNISONE 10 MG TABLET 30 t* 0 03/04/2018 Si tabs daily for 3 days, 3 tabs daily for 3 days, 2 tabs daily for 2 days, 1 tab daily for 3 days. Medications Discontinued During This Encounter ciprofloxacin HCl (CIPRO) 500 mg tab* 03/04/2018 Class: Historical Med Route: ORAL Sig: Take 500 mg by mouth twice daily. Disc: Course of therapy completed predniSONE (DELTASONE) 10 mg tablet 30 t* 0 11/01/2017 03/04/2018 Si tabs daily for 3 days, 3 tabs daily for 3 days, 2 tabs daily for 2 days, 1 tab daily for 3 days. Patient not taking: Reported on 02/06/2018 Disc: Course of therapy completed Disposition: Return in about 6 months (around 09/03/2018). Follow-up and Disposition History Recorded Encounter Status:Closed by MARIVEL SARAH on 03/04/18 CNCO Observed: 03/04/2018 Status: COMPLETED Source: [place] 12:00 AM [facility] [place] REPOSITORY Letter Text Marivel Sarah PA-C Respiratory [place] [id number] March 04, 2018 To Whom It May Concern: This letter is to certify that Jake Chairez is a patient under my care. It was necessary for Jake Chairez to be out of work 03/04/18. Sincerely, Marivel Sarah PA-C Res[facility] TSH Collected: 02/06/2018 Status: F Source: [place] 4:40 PM [facility] REPOSITORY TYPE CODE TESTS RESULT OUT OF RANGE REFERENCE UNITS LAB TSH 0.400-5.500 uU/mL TSH 0.738 Performed By: #### TSH, BMP, LIPB, LDLDCT #### [facility] [address] [place], [place] [address] BASIC METABOLIC PANL Collected: 02/06/2018 Status: F Source: [place] 4:40 PM [facility] REPOSITORY TYPE CODE TESTS RESULT OUT OF REFERENCE UNITS RANGE LAB GLU 74-99 mg/dL High Glucose 107 Result Comment: The [place] Diabetes Association (ADA) provides guidance for cutoff values for fasting glucose and random glucose. The ADA defines fasting as no caloric intake for at least 8 hours. Fas ting plasma glucose results between 100 to 125 mg/dL indicate increased risk for diabetes (prediabetes). Fasting plasma glucose results greater than or equal to 126 mg/dL meet the criteria for diagnosis of diabetes. In the absence of unequivocal hyperglycemia, results should be confirmed by repeat testing. In a patient with classic symptoms of hyperglycemia or hyperglycemic crisis, random plasma glucose results greater than or equal to 200 mg/dL meet the criteria for diagnosis of diabetes. Reference: Standards of Medical Care in Diabetes 2016, [place] Diabetes Association. Diabetes Care. 2016.39(Suppl 1). LAB BUN 9-24 mg/dL BUN 10 LAB CRET 0.73-1.22 mg/dL Creatinine 1.08 LAB NA 136-144 mmol/L Sodium 143 LAB K 3.7-5.1 mmol/L Potassium 3.8 LAB CL 97-105 mmol/L Chloride 101 LAB CO2 22-30 mmol/L CO2 26 LAB AGAP 9-18 mmol/L Anion Gap 16 LAB CA 8.5-10.2 mg/dL Calcium, Total 9.6 LAB GFRAA eGFR- Amer. >60 LAB GFRNAA . eGFR-All Other Races >60 Result Comment: eGFR (Estimated GFR) Units of measure: mL/min/1.73 meters squared eGFR is derived from the reexpressed MDRD Study equation using the following parameters: serum creatinine, age, gender and race. The creatinine assay has been calibrated to be traceable to IDMS. An eGFR <60 mL/min/1.73m2 for >3 months is consistent with chronic kidney disease. Refer to KDOQI guidelines for clinical interpretation. In patients with unstable renal function, e.g. those with acute kidney injury, the eGFR may not accurately reflect actual GFR. Performed By: #### TSH, BMP, LIPB, LDLDCT #### [facility] [address] [place], [place] [address] LIPID PANEL, BASIC Collected: 02/06/2018 Status: F Source: [place] 4:40 PM [facility] REPOSITORY TYPE CODE TESTS RESULT OUT OF REFERENCE UNITS RANGE LAB CHOL <200 mg/dL Cholesterol High 282 Result Comment: <200 mg/dL, Desirable 200-239 mg/dL, Borderline high >239 mg/dL, High LAB TRIGLY <150 mg/dL Triglyceride High 408 Result Comment: <150 mg/dL, Normal 150-199 mg/dL, Borderline high 200-499 mg/dL, High >499 mg/dL, Very high LAB HDL >39 mg/dL HDL-Cholesterol 53 Result Comment: 40-59 mg/dL, Acceptable >59 mg/dL, High: Negative risk factor for coronary heart disease <40 mg/dL, Low: Positive risk factor for coronary heart disease LAB LDL <100 mg/dL LDL-Cholesterol Unable to calculate due to increased Triglycerides. See LDL-Chol, Direct. LAB NONHDL <130 mg/dL Non HDL Cholesterol 229 High Result Comment: <130 mg/dL, Optimal 130-159 mg/dL, Near optimal/above optimal 160-189 mg/dL, Borderline high 190-219 mg/dL, High >219 mg/dL, Very high Secondary prevention optimal non HDL Cholesterol levels are recommended to be < 100 mg/dL LAB FT hrs Fasting Time 4 LAB VLDL <30 mg/dL VLDL Unable Cholesterol to calculate due to increased Triglycerides. See LDL-Chol, Direct. LAB TCHDL <5.10 TC:HDL Ratio 5.32 High LAB LDLHDL <2.54 LDL:HDL Ratio Unable to calculate due to elevated Triglycerides. Result Comment: Reference: 1. National Cholesterol Education Program ATP III Guideline At-A-Glance Quick Desk Reference: National Heart, Lung, and Blood [place]. National Institutes of Health. 2001: NIH Publication No. 01-3305. 2. An International Atherosclerosis Society position paper: global recommendations for the management of dyslipidemia: executive summary, Atherosclerosis. 2014: 232(2):410-413. Performed By: #### TSH, BMP, LIPB, LDLDCT #### [facility] [address] [place], [place] [address] LDL-CHOL, DIRECT Collected: 02/06/2018 Status: F Source: [place] 4:40 PM [facility] REPOSITORY TYPE CODE TESTS RESULT OUT OF REFERENCE UNITS RANGE LAB LDLDIR <100 mg/dL High LDL-Chol, 178 Direct Result Comment: <100 mg/dL, Optimal 100-129 mg/dL, Near optimal/above optimal 130-159 mg/dL, Borderline high 160-189 mg/dL, High >189 mg/dL, Very high Secondary prevention optimal LDL Cholesterol levels are recommended to be < 70 mg/dL LAB VLDL1 <30 mg/dL VLDL Cholesterol High 51 Performed By: #### TSH, BMP, LIPB, LDLDCT #### [facility] [address] [place], [place] [address] PROGRESS Observed: 02/06/2018 Status: COMPLETED Source: [place] 4:23 PM [facility] [place] [facility] RE[facility]IT[facility] HNO ID: [id number] Author: Indra Dupree Service: (none) Author Type: Physician Type: Progress Notes Filed: 02/06/2018 5:05 PM Note Text: PERTINENT CARDIAC HISTORY Chest pain HL HTN Family history premature CAD ADHERENCE TO GUIDELINES KATHI-I or ARB for HF with prior LVEF<40 (NQF 0081) - N/A ASA or Plavix for ASHD (NQF 0067) - N/A Beta james for ASHD with prior AZ or prior LVEF<40 (NQF 0070) - N/A Beta james for HF with prior LVEF<40 (NQF 0083) - N/A KATHI-I or ARB for ASHD with DM or prior LVEF<40 (NQF 0066) - N/A Statin therapy for ASHD or FHL or DM - met BMI documented and plan if >25 (NQF 0421) - lifestyle recommendation form Tobacco use screening and referral (NQF 0028) - lifestyle recommendation form Recommendation for whole food, plant based diet - lifestyle recommendation form CLINICAL IMPRESSION/PLAN: Jake Chairez is doing well with respect to his atypical chest pain. I asked him to let me know if he has exercise intolerance or exertional chest discomfort and we can proceed with stress testing, which has not yet been accomplished. His tachycardia is likely related to his lung disease and bronchodilator. We will consider adding some rate slowing calcium james if he requires more aggressive blood pressure control. For the time being, he's been advised to take his HCTZ and lisinopril as directed. He will have basic profile and lipid profile in the near future for follow-up of his drug therapy and we will obtain TSH. I encouraged him to get his stress under better management. I will see him in 8 months or as needed. Written and verbal health teaching given to patient, patient verbalizes understanding and agrees with treatment plan. DIAGNOSIS FOR VISIT: Hypertension Chest pain HISTORY OF PRESENT ILLNESS Jake Chairez returns for follow-up of his atypical chest pain and hypertension. He has been under a lot of stress at work and with his family regarding some estate issues. He has been irregular with taking his medication, including his statin. He has had a persistent elevated heart rate. He relates this to his lung problems. He is on chronic Bronchodilators. He's had no recent exertional chest discomfort and his chest pain from before has resolved. 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 He denies orthopnea. He's had no edema, syncope, palpitations, TIAs, amaurosis and claudication. ALLERGIES: ALLERGIES Allergen Reactions - Advair Diskus [Flut* Other: See Comments Thrush - Codeine GI Upset - Environmental [Othe* Unknown Cats, dogs, dust mites, grasses, weeds, ragweed - Flonase [Fluticason* MIGRAINE - Gabapentin Mental Status Change Suicidal ideations - Qvar [Beclomethason* Other: See Comments Thrush - Symbicort [Budesoni* Other: See Comments Thrush - Tetanus-Diphtheria * Swelling swelling at site and numbness in arm CURRENT OUTPATIENT MEDICATIONS: lisinopril (PRINIVIL) 20 mg tablet Take 1 tablet by mouth once daily. atorvastatin (LIPITOR) 40 mg tablet Take 1 tablet by mouth daily at bedtime. For cholesterol. fexofenadine (ENEIDA) 180 mg tablet Take 1 tablet by mouth once daily as needed. promethazine (PHENERGAN) 25 mg tablet Take 1 tablet by mouth every 6 hours as needed. formoterol fumarate (PERFOROMIST) 20 mcg/2 mL nebu Inhale 2 mL as instructed every 12 hours. cyclobenzaprine (FLEXERIL) 10 mg tablet Take 1 tablet by mouth three times daily as needed. Omeprazole (PRILOSEC) 40 mg capsule Take 1 capsule by mouth once daily. Hydrochlorothiazide 12.5 mg capsule Take 1 capsule by mouth once daily. budesonide (PULMICORT) 0.5 mg/2 mL nebulizer solution Use 2 mL via nebulizer twice daily at 6AM and 9PM. INHALE 2 ML BY NEBULIZER OVER 5-15 MINUTES EVERY 12 HOURS. montelukast (SINGULAIR) 10 mg tablet TAKE ONE TABLET BY MOUTH ONCE DAILY AT BEDTIME ipratropium-albuterol (COMBIVENT RESPIMAT) 20-100 mcg/actuation mist 1 puffs QID for asthma ipratropium-albuterol (DUONEB) 0.5 mg-3 mg(2.5 mg base)/3 mL nebu Inhale 3 mL as instructed every 6 hours as needed (wheezing/shortness of breath.). albuterol HFA (PROVENTIL HFA) 90 mcg/actuation inhaler Inhale 2 Puffs as instructed every 4 hours as needed for Wheezing/Shortness of Breath. NEEDED FOR SHORTNESS OF BREATH AND WHEEZING rizatriptan (MAXALT-TELEGRAPHIC TYPEWRITER OPERATOR) 10 mg disintegrating tablet Take 1 tablet by mouth as needed for Migraine Headache (see administration instructions). May repeat in 2 hours if needed nitroglycerin sublingual (NITROQUICK) 0.4 mg SL tablet Dissolve 1 tablet under the tongue as needed. FOR CHEST PAIN. IF NO RELIEF CALL 911 triamcinolone acetonide (KENALOG) 0.1 % cream APPLY SPARINGLY TO AFFECTED AREA TWICE DAILY NEEDED FOR RASH/ITCHING ketoconazole (NIZORAL) 2 % cream Apply 1 application to affected area once daily. For mouth cheilitis lesion desonide (TRIDESILON) 0.05 % cream Apply 1 application to affected area twice daily as needed. For mouth cheilitis lesion LORazepam (ATIVAN) 0.5 mg tab Take 1 tablet by mouth twice daily as needed. ciprofloxacin HCl (CIPRO) 500 mg tablet Take 500 mg by mouth twice daily. predniSONE (DELTASONE) 10 mg tablet 4 tabs daily for 3 days, 3 tabs daily for 3 days, 2 tabs daily for 2 days, 1 tab daily for 3 days. HYDROcodone-Ibuprofen (VICOPROFEN) 7.5-200 mg per tablet Take 1-2 tablets by mouth once daily as needed for Pain for up to 30 days. Ok to fill on 09/26/17 or after HYDROcodone-Ibuprofen (VICOPROFEN) 7.5-200 mg per tablet Take 1-2 tablets by mouth once daily as needed for Pain for up to 30 days. Ok to fill on 10/26/17 or afterEarliest Fill Date: 10/26/17 HYDROcodone-Ibuprofen (VICOPROFEN) 7.5-200 mg per tablet Take 1-2 tablets by mouth once daily as needed for Pain for up to 30 days. Ok to fill on 11/25/17 or afterEarliest Fill Date: 11/26/17 PHYSICAL EXAMINATION: VITAL SIGNS: BP 138/80 Pulse 105 Wt 172 lb 14.4 oz (78.4kg) Chest: Clear to percussion and auscultation. Trachea is midline. Air entry is equal. Cardiac: Regular rhythm. S1 and S2 are normal. PMI is nondisplaced. There is a soft systolic ejection murmur. Carotids are brisk without bruits. JVP is less than 10 cm. Abdomen: Soft and nontender. There are no pulsatile masses or bruits. No liver enlargement. Bowel sounds are active. Extremities: No edema. Pulses are intact and symmetrical. EKG shows sinus tachycardia and is otherwise within normal limits. There is no significant change. Recent labs were reviewed. Renal function is normal. LDL had increased significantly. Electronically Signed: Indra Dupree MD February 06, 2018 4:23 PM CC: Avni Castillo DO EKG1 Observed: 02/06/2018 Status: F Source: [place] 4:01 PM [facility] REPOSITORY NAME : JAKE CHAIREZ PID : [id number] : 1975 Gender : Male Race : ORD : Procedure Date : Feb 06 2018 16:01:47 Edit Date : Feb 26 2018 07:39:34 Diagnosis:SINUS TACHYCARDIA OTHERWISE NORMAL ECG Confirmed by ALESHIA KAUFFMAN D.O. ([id number]) on 02/26/2018 7:39:32 AM Ventricular Rate : 108 BPM Atrial Rate : 108 BPM P-R Interval : 148 ms QRS Duration : 94 ms Q-T Interval : 350 ms QTC Calculation(Bezet) : 469 ms P [place] : 62 degrees R [place] : 8 degrees T [place] : 63 degrees Test Reason : Location : 136 : [place] Overread By : ALESHIA KAUFFMAN D.O. Edited By : ALESHIA KAUFFMAN D.O. Referred By : DENISSE Acquired by : NEYDA FANG Observed: 02/06/2018 Status: COMPLETED Source: [place] 4:00 [facility] REPOSITORY Office Visit (CAWSTR) JAKE CHAIREZ ([id number]) 1975 M Date Time Provider Department 02/06/18 4:00 PM INDRA DUPREE During your visit today, we recorded the following information about you: Pulse Blood pressure Weight 105/minute 138/80 78.4 kg Indra Dupree MD 02/06/2018 5:05 PM Signed PERTINENT CARDIAC HISTORY Chest pain HL HTN Family history premature CAD ADHERENCE TO GUIDELINES KATHI-I or ARB for HF with prior LVEF<40 (NQF 0081) - N/A ASA or Plavix for ASHD (NQF 0067) - N/A Beta james for ASHD with prior [place] or prior LVEF<40 (NQF 0070) - N/A Beta james for HF with prior LVEF<40 (NQF 0083) - N/A KATHI-I or ARB for ASHD with DM or prior LVEF<40 (NQF 0066) - N/A Statin therapy for ASHD or FHL or DM - met BMI documented and plan if >25 (NQF 0421) - lifestyle recommendation form Tobacco use screening and referral (NQF 0028) - lifestyle recommendation form Recommendation for whole food, plant based diet - lifestyle recommendation form CLINICAL IMPRESSION/PLAN: Jake Chairez is doing well with respect to his atypical chest pain. I asked him to let me know if he has exercise intolerance or exertional chest discomfort and we can proceed with stress testing, which has not yet been accomplished. His tachycardia is likely related to his lung disease and bronchodilator. We will consider adding some rate slowing calcium james if he requires more aggressive blood pressure control. For the time being, he's been advised to take his HCTZ and lisinopril as directed. He will have basic profile and lipid profile in the near future for follow-up of his drug therapy and we will obtain TSH. I encouraged him to get his stress under better management. I will see him in 8 months or as needed. Written and verbal health teaching given to patient, patient verbalizes understanding and agrees with treatment plan. DIAGNOSIS FOR VISIT: Hypertension Chest pain HISTORY OF PRESENT ILLNESS Jake Chairez returns for follow-up of his atypical chest pain and hypertension. He has been under a lot of stress at work and with his family regarding some estate issues. He has been irregular with taking his medication, including his statin. He has had a persistent elevated heart rate. He relates this to his lung problems. He is on chronic Bronchodilators. He's had no recent exertional chest discomfort and his chest pain from before has resolved. 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 He denies orthopnea. He's had no edema, syncope, palpitations, TIAs, amaurosis and claudication. ALLERGIES: ALLERGIES Allergen Reactions - Advair Diskus [Flut* Other: See Comments Thrush - Codeine GI Upset - Environmental [Othe* Unknown Cats, dogs, dust mites, grasses, weeds, ragweed - Flonase [Fluticason* MIGRAINE - Gabapentin Mental Status Change Suicidal ideations - Qvar [Beclomethason* Other: See Comments Thrush - Symbicort [Budesoni* Other: See Comments Thrush - Tetanus-Diphtheria * Swelling swelling at site and numbness in arm CURRENT OUTPATIENT MEDICATIONS: lisinopril (PRINIVIL) 20 mg tablet Take 1 tablet by mouth once daily. atorvastatin (LIPITOR) 40 mg tablet Take 1 tablet by mouth daily at bedtime. For cholesterol. fexofenadine (ENEIDA) 180 mg tablet Take 1 tablet by mouth once daily as needed. promethazine (PHENERGAN) 25 mg tablet Take 1 tablet by mouth every 6 hours as needed. formoterol fumarate (PERFOROMIST) 20 mcg/2 mL nebu Inhale 2 mL as instructed every 12 hours. cyclobenzaprine (FLEXERIL) 10 mg tablet Take 1 tablet by mouth three times daily as needed. Omeprazole (PRILOSEC) 40 mg capsule Take 1 capsule by mouth once daily. Hydrochlorothiazide 12.5 mg capsule Take 1 capsule by mouth once daily. budesonide (PULMICORT) 0.5 mg/2 mL nebulizer solution Use 2 mL via nebulizer twice daily at 6AM and 9PM. INHALE 2 ML BY NEBULIZER OVER 5-15 MINUTES EVERY 12 HOURS. montelukast (SINGULAIR) 10 mg tablet TAKE ONE TABLET BY MOUTH ONCE DAILY AT BEDTIME ipratropium-albuterol (COMBIVENT RESPIMAT) 20-100 mcg/actuation mist 1 puffs QID for asthma ipratropium-albuterol (DUONEB) 0.5 mg-3 mg(2.5 mg base)/3 mL nebu Inhale 3 mL as instructed every 6 hours as needed (wheezing/shortness of breath.). albuterol HFA (PROVENTIL HFA) 90 mcg/actuation inhaler Inhale 2 Puffs as instructed every 4 hours as needed for Wheezing/Shortness of Breath. NEEDED FOR SHORTNESS OF BREATH AND WHEEZING rizatriptan (MAXALT-TELEGRAPHIC TYPEWRITER OPERATOR) 10 mg disintegrating tablet Take 1 tablet by mouth as needed for Migraine Headache (see administration instructions). May repeat in 2 hours if needed nitroglycerin sublingual (NITROQUICK) 0.4 mg SL tablet Dissolve 1 tablet under the tongue as needed. FOR CHEST PAIN. IF NO RELIEF CALL 911 triamcinolone acetonide (KENALOG) 0.1 % cream APPLY SPARINGLY TO AFFECTED AREA TWICE DAILY NEEDED FOR RASH/ITCHING ketoconazole (NIZORAL) 2 % cream Apply 1 application to affected area once daily. For mouth cheilitis lesion desonide (TRIDESILON) 0.05 % cream Apply 1 application to affected area twice daily as needed. For mouth cheilitis lesion LORazepam (ATIVAN) 0.5 mg tab Take 1 tablet by mouth twice daily as needed. ciprofloxacin HCl (CIPRO) 500 mg tablet Take 500 mg by mouth twice daily. predniSONE (DELTASONE) 10 mg tablet 4 tabs daily for 3 days, 3 tabs daily for 3 days, 2 tabs daily for 2 days, 1 tab daily for 3 days. HYDROcodone-Ibuprofen (VICOPROFEN) 7.5-200 mg per tablet Take 1-2 tablets by mouth once daily as needed for Pain for up to 30 days. Ok to fill on 09/26/17 or after HYDROcodone-Ibuprofen (VICOPROFEN) 7.5-200 mg per tablet Take 1-2 tablets by mouth once daily as needed for Pain for up to 30 days. Ok to fill on 10/26/17 or afterEarliest Fill Date: 10/26/17 HYDROcodone-Ibuprofen (VICOPROFEN) 7.5-200 mg per tablet Take 1-2 tablets by mouth once daily as needed for Pain for up to 30 days. Ok to fill on 11/25/17 or afterEarliest Fill Date: 11/26/17 PHYSICAL EXAMINATION: VITAL SIGNS: BP 138/80 Pulse 105 Wt 172 lb 14.4 oz (78.4kg) Chest: Clear to percussion and auscultation. Trachea is midline. Air entry is equal. Cardiac: Regular rhythm. S1 and S2 are normal. PMI is nondisplaced. There is a soft systolic ejection murmur. Carotids are brisk without bruits. JVP is less than 10 cm. Abdomen: Soft and nontender. There are no pulsatile masses or bruits. No liver enlargement. Bowel sounds are active. Extremities: No edema. Pulses are intact and symmetrical. EKG shows sinus tachycardia and is otherwise within normal limits. There is no significant change. Recent labs were reviewed. Renal function is normal. LDL had increased significantly. Electronically Signed: Indra Dupree MD February 06, 2018 4:23 PM CC: DO Indra Bell MD 02/06/2018 4:23 PM Signed LIFESTYLE CHANGE A healthy lifestyle is the most important component of your overall treatment plan. 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 EAT A WHOLE FOOD, PLANT BASED DIET The nutrition your body gets is more important than the medicine you take. What matters most is the overall way you eat. We encourage you to minimize the use of animal products (which include dairy and all meats except fatty fish) and use whole, unprocessed plant foods to provide your protein, vitamins and other nutrients. We have a lot of information to share with you on this topic. This is not a diet. It is a way of life that you will keep with you. EXERCISE REGULARLY It is not important to spend hours in the gym, lifting weights and perspiring heavily. A total of 2-3 hours per week of aerobic (causing you to be moderately short of breath) exercise is sufficient to improve your health. Talk to us before you begin a new exercise program, if you have heart disease or experience shortness of breath or chest pain. REDUCE STRESS Chronic emotional and physical stress leads to disease. Ways of reducing stress include meditation, visualization, prayer, yoga and other forms of relaxation therapy. Consistency is the ann. Find a technique that works for you and do it every day. CULTIVATE RELATIONSHIPS Loneliness and isolation have a major negative impact on health. Seek out others who can love, care for and nurture you. Avoid hurtful relationships. MAINTAIN IDEAL BODY WEIGHT The best way to do this is to do all the things above. Our bodies naturally find the right weight if we keep moving and feed ourselves the right food. If your BMI is greater than 25, we strongly recommend a referral to a weight management program. Please speak to us or your family physician about available programs. AVOID NICOTINE IN ALL FORMS This includes all tobacco products, whether chewed, smoked, vaped, or rubbed on the skin. Smoking cessation programs, which can make use of tobacco substitutes, medications to suppress cravings and behavior management, are available. Please contact your family physician about programs in your area. Referring Provider: INDRA DUPREE [[id number]] Allergies As of Date: 02/06/2018 Noted Allergy Reaction ADVAIR DISKUS (FLUTICASONE-SALMET*05/18/2017 14 - Other: See Comments Comments: Thrush CODEINE 07/31/2005 8 - GI Upset Environmental [Other] 05/25/2011 16 - Unknown Comments: Cats, dogs, dust mites, grasses, weeds, ragweed FLONASE (FLUTICASONE PROPIONATE) 07/31/2005 Comments: MIGRAINE GABAPENTIN 10/24/2017 1 - Mental Status Change Comments: Suicidal ideations QVAR (BECLOMETHASONE DIPROPIONATE)05/18/2017 14 - Other: See Comments Comments: Thrush SYMBICORT (BUDESONIDE-FORMOTEROL) 05/18/2017 14 - Other: See Comments Comments: Thrush TETANUS-DIPHTHERIA TOXOIDS-TD 06/22/2006 7 - Swelling Comments: swelling at site and numbness in arm Date Reviewed: 02/06/2018 Reviewed by: Tiana Carr MA - Fully Assessed Reason for Visit: Established Patient [175] Primary Visit Diagnosis:Chest pain, unspecified type [R07.9] Other Visit Diagnoses:BENIGN HYPERTENSION [I10] Pure hypercholesterolemia [E78.00] Hypertension, essential [I10] Order(s):ECG B/O W INTERP (MED OFFICE) [ECG06] Order #: [id number] lisinopril (PRINIVIL) 20 mg tabletTake 1 tablet by mouth once daily.Disp: 960 tabletRfl: 3 atorvastatin (LIPITOR) 40 mg tabletTake 1 tablet by mouth daily at bedtime. For cholesterol.Disp: 90 tabletRfl: 3 BASIC METABOLIC PNL [SQBMP] Order #: [id number] FUTURE LIPID PANEL BASIC [SQLIPB] Order #: [id number] FUTURE TSH BLD [SQTSH] Order #: [id number] FUTURE Prescriptions as of 02/06/2018 Sig: LISINOPRIL 20 MG TABLET Take 1 tablet by mouth once d* ATORVASTATIN 40 MG TABLET Take 1 tablet by mouth daily * FEXOFENADINE 180 MG TABLET Take 1 tablet by mouth once d* PROMETHAZINE 25 MG TABLET Take 1 tablet by mouth every * FORMOTEROL FUMARATE 20 MCG/2 * Inhale 2 mL as instructed jonatan* CYCLOBENZAPRINE 10 MG TABLET Take 1 tablet by mouth three * OMEPRAZOLE 40 MG CAPSULE,MELI* Take 1 capsule by mouth once * HYDROCHLOROTHIAZIDE 12.5 MG C* Take 1 capsule by mouth once * BUDESONIDE 0.5 MG/2 ML SUSPEN* Use 2 mL via nebulizer twice * MONTELUKAST 10 MG TABLET TAKE ONE TABLET BY MOUTH ONCE* IPRATROPIUM 20 MCG-ALBUTEROL * 1 puffs QID for asthma IPRATROPIUM-ALBUTEROL 0.5 MG-* Inhale 3 mL as instructed jonatan* ALBUTEROL SULFATE HFA 90 MCG/* Inhale 2 Puffs as instructed * RIZATRIPTAN 10 MG DISINTEGRAT* Take 1 tablet by mouth as nee* NITROGLYCERIN 0.4 MG SUBLINGU* Dissolve 1 tablet under the t* TRIAMCINOLONE ACETONIDE 0.1 %* APPLY SPARINGLY TO AFFECTED A* KETOCONAZOLE 2 % TOPICAL CREAM Apply 1 application to affect* DESONIDE 0.05 % TOPICAL CREAM Apply 1 application to affect* LORAZEPAM 0.5 MG TABLET Take 1 tablet by mouth twice * CIPROFLOXACIN 500 MG TABLET Take 500 mg by mouth twice da* PREDNISONE 10 MG TABLET 4 tabs daily for 3 days, 3 ta* Patient not taking: Reported on 02/06/2018 HYDROCODONE 7.5 MG-IBUPROFEN * Take 1-2 tablets by mouth onc* HYDROCODONE 7.5 MG-IBUPROFEN * Take 1-2 tablets by mouth onc* HYDROCODONE 7.5 MG-IBUPROFEN * Take 1-2 tablets by mouth onc* Problem List As Of Date 02/06/2018 Noted Resolved ESOPHAGEAL REFLUX [K21.9] Priority: Severe More... ALLERGIC RHINITIS NOS [J30.9] Priority: Moderate ASTHMA UNSPEC W STATUS ASTH [J45.902] 03/28/2007 BENIGN HYPERTENSION [I10] INVALID FOR* Priority: Moderate MIXED HYPERLIPIDEMIA [E78.2] INVALID FOR* Priority: Severe GENERALIZED ANXIETY DIS [F41.1] INVALID FOR* Priority: Mild ABDOMINAL PAIN( Right Upper Quadrant) [R10.11] INVALID FOR*03/05/2009 Priority: Moderate BENIGN NEOPLASM LG BOWEL [D12.6] INVALID FOR*03/28/2007 Displacement of Lumbar Intervertebral Disc with* Priority: Severe More... IBS [K58.9] Priority: Moderate Mild persistent asthma without complication [J4* Priority: Moderate CARPAL TUNNEL SYNDROME [G56.00] Priority: Mild DEPRESSION [F32.9] Priority: Moderate PERS HX COLONIC POLYPS [Z86.010] Priority: Severe More... COMMON MIGRAINE [346.1] 10/22/2007 Priority: Moderate NON-ALCOHOLIC STEATOHEPATITIS [K76.9] INVALID FOR* More... 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] INVALID FOR* CRUZ (nonalcoholic steatohepatitis) [K75.81] INVALID FOR* Internal hemorrhoids without mention of complic*INVALID FOR* Dermatofibroma of right lower leg [D23.71] INVALID FOR* Neoplasm of uncertain behavior of skin [D48.5] INVALID FOR* Atypical nevus of lower leg [D22.70] INVALID FOR* Atypical nevus of abdominal wall [D22.5] INVALID FOR* Compound nevus of abdominal wall [D22.5] INVALID FOR* Intradermal melanocytic nevus [D22.9] INVALID FOR* Melanocytic nevi of trunk [D22.5] INVALID FOR* Actinic skin damage [L57.8] INVALID FOR* Tobacco abuse [Z72.0] INVALID FOR* Low back pain [M54.5] INVALID FOR* Lumbar degenerative disc disease [M51.36] INVALID FOR* Lumbosacral neuritis [M54.17] INVALID FOR* Anemia [D64.9] INVALID FOR* RB (rectal bleeding) [K62.5] INVALID FOR* SARAH (iron deficiency anemia) [D50.9] INVALID FOR* Iron malabsorption [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 Opiate dependence, continuous (HCC) [F11.20] INVALID FOR* Chronic pain [G89.29] INVALID FOR* Migraine without aura and without status migrai*INVALID FOR* Iron deficiency anemia due to chronic blood los*INVALID FOR* Sarcoidosis of lung (HCC) [D86.0] INVALID FOR* More... Other instructions from your clinician: LIFESTYLE CHANGE A healthy lifestyle is the most important component of your overall treatment plan. Please give serious thought to the following areas and commit to making senior care changes. EAT A WHOLE FOOD, PLANT BASED DIET The nutrition your body gets is more important than the medicine you take. What matters most is the overall way you eat. We encourage you to minimize the use of animal products (which include dairy and all meats except fatty fish) and use whole, unprocessed plant foods to provide your protein, vitamins and other nutrients. We have a lot of information to share with you on this topic. This is not a diet. It is a way of life that you will keep with you. EXERCISE REGULARLY It is not important to spend hours in the gym, lifting weights and perspiring heavily. A total of 2-3 hours per week of aerobic (causing you to be moderately short of breath) exercise is sufficient to improve your health. Talk to us before you begin a new exercise program, if you have heart disease or experience shortness of breath or chest pain. REDUCE STRESS Chronic emotional and physical stress leads to disease. Ways of reducing stress include meditation, visualization, prayer, yoga and other forms of relaxation therapy. Consistency is the ann. Find a technique that works for you and do it every day. CULTIVATE RELATIONSHIPS Loneliness and isolation have a major negative impact on health. Seek out others who can love, care for and nurture you. Avoid hurtful relationships. MAINTAIN IDEAL BODY WEIGHT The best way to do this is to do all the things above. Our bodies naturally find the right weight if we keep moving and feed ourselves the right food. If your BMI is greater than 25, we strongly recommend a referral to a weight management program. Please speak to us or your family physician about available programs. AVOID NICOTINE IN ALL FORMS This includes all tobacco products, whether chewed, smoked, vaped, or rubbed on the skin. Smoking cessation programs, which can make use of tobacco substitutes, medications to suppress cravings and behavior management, are available. Please contact your family physician about programs in your area. Prescriptions ordered this encounter Disp Refills Start End LISINOPRIL 20 MG TABLET 960 * 3 02/06/2018 Route: ORAL Sig: Take 1 tablet by mouth once daily. ATORVASTATIN 40 MG TABLET 90 t* 3 02/06/2018 Route: ORAL Sig: Take 1 tablet by mouth daily at bedtime. For cholesterol. Medications Discontinued During This Encounter lisinopril (PRINIVIL) 20 mg tablet 30 t* 5 12/01/2015 02/06/2018 Route: ORAL Sig: Take 1 tablet by mouth once daily. Disc: Reason for discontinue is not on file. atorvastatin (LIPITOR) 40 mg tablet 30 t* 6 12/17/2015 02/06/2018 Route: ORAL Sig: Take 1 tablet by mouth daily at bedtime. For cholesterol. Disc: Reason for discontinue is not on file. Encounter Status:Closed by INDRA DUPREE MD on 02/06/18 EMERGENCY DEPARTMENT Observed: 02/03/2018 Status: F Source: [place] SUMMARY 8:04 AM [facility] [place] REPOSITORY [facility] Medical Records Department [address] [place] [address] Emergency Department Summary 01/23/18 1638 MR#: [id number] Acct: [id number] Name: JAKE CHAIREZ Carlos Rep #: [id number] : 1975 42 From: Olivier Sraah MD PCP: Avni Serrato DO Status: DEP ER History of Present Illness Informant: Patient Onset: Today Quality: ache/pain Location: low back, worse on left Current Severity: Severe Maximum Severity: Severe Associated Symptoms: dysuria, frequency, fever Narrative: Patient states he thinks he is having a kidney infection. States he has had those before and he had pain like this, and has not seen a urologist for this although he did have one see him in the hospital once before, Dr. Krause, to help extract a kidney stone that he had one time. He states yesterday he started having some burning when he urinates, and frequency. He states normally when this happens, he drinks a lot of fluids, which he did all day yesterday. He woke up today at his usual time, and excruciating pain, from my tailbone radiating up to my neck. When asked if this is the typical pain that he gets with kidney infections, he states he had his it has felt like this, but he also does have chronic pain from degenerative disc disease in his low back that he gets back injections for. Denies any bowel or bladder dysfunction. <Olivier Sarah - Last Filed: 01/23/18 16:38> <Jorge Light - Last Filed: 01/23/18 18:37> Chief Complaint: Complaint - Past Medical History (1) Kidney stone Status: Chronic (2) Chronic low back pain Status: Chronic (3) DDD (degenerative disc disease), lumbar Status: Chronic <Olivier Sarah - Last Filed: 01/23/18 16:38> Past Medical History Surgical History: tonsillectomy, - - [place] teeth removal, radioablation of lumbar area Smoking Status: Former smoker - Family History Maternal Family History: Reports: Cancer Paternal Family History: Reports: Cancer <Olivier Sarah - Last Filed: 01/23/18 16:38> <Jorge Light - Last Filed: 01/23/18 18:37> - Allergies and Home Meds Allergies/Adverse Reactions: Allergies tetanus immune globulin Allergy (Verified 12/27/16 06:22) Swelling codeine Adverse Reaction (Verified 12/27/16 06:22) Nausea fluticasone propionate [From Flonase] Adverse Reaction (Verified 12/27/16 06:22) MIGRAINE Home Medications: Home Medications Medication Instructions Recorded Cyclobenzaprine [Flexeril] 10 mg PO TID 04/12/15 Primary Care Physician: Avni Castillo DO [Primary Care Provider] - Review of Systems General: Reports: Fever. Denies: Chills, Malaise, Sweats Eyes: Denies: Visual changes - bilaterally, Diplopia ENT: Denies: Bilateral ear pain, Sore throat Cardiovascular: Denies: Chest pain, Palpitations Respiratory: Denies: Dyspnea, Cough, Dyspnea on exertion Gastrointestinal: Reports: Abdominal pain - mild RLQ / suprapubic. Denies: Nausea, Vomiting, Diarrhea, Melena, Hematochezia Genitourinary: Reports: Dysuria, Frequency. Denies: Hematuria Musculoskeletal: Reports: Back pain. Denies: Neck pain, Swelling, Extremity Pain Skin: Denies: Rash, Wounds Neurological: Denies: Headache, Weakness, Numbness Psych: Denies: Depression, Anxiety Endocrine: Denies: Polyuria, Polydipsia Hematologic: Denies: Easy bruising, Easy bleeding Allergy: Denies: Swelling of the mouth, Swelling of the tongue <Olivier Sarah - Last Filed: 01/23/18 16:38> Physical Exam Vital Signs/Narrative: Vital Signs 01/23/18 16:12 99.5 F H 129 H 16 129/99 H 98 Inital Vital Signs reviewed: Yes General: Well nourished, Well developed, - - conversive. NAD. Head: Normocephalic, Atraumatic Eyes: Perrl, EOMI ENT: Moist mucous membranes, No rhinorrhea Neck: Supple, Nontender Cardiovascular: Regular rate, Regular rhythm, No murmurs Respiratory: No distress, CTA bilaterally, Chest nontender Abdomen: Soft, Nontender, Nondistended, Normal bowel sounds Back: Normal Inspection, CVA tenderness - left only. Extremities: Nontender, No edema Skin: Normal color, No rash Neurological: Alert, Oriented x3, Cranial nerves II-XII grossly intact, Normal Strength, Normal Sensation, Normal Gait Psychological: Normal affect <Olivier Sarah - Last Filed: 01/23/18 16:38> Vital Signs/Narrative: Vital Signs 01/23/18 17:41 99.3 F H 01/23/18 16:12 99.5 F H 129 H 16 129/99 H 98 <Light,Jorge - Last Filed: 01/23/18 18:37> Diagnostic/Tx/Re-eval - Medical Decision Making Workup, IV fluids, analgesics ordered and checked out to oncoming emergency physician. <Olivier Sarah - Last Filed: 01/23/18 16:38> CT of the abdomen pelvis without contrast was obtained and reveals evidence of prostatitis. Urine reveals infection and is a good specimen. White count is elevated with no shift. A urine culture was ordered. Will treat with ciprofloxacin 500 mg twice a day for 2 weeks. He was referred to urology. - Medical Decision Making Impression: 1. Acute prostatitis 2. Sepsis 3. Sinus tachycardia documented on monitor Since patient is hemodynamic is stable without vomiting he is a candidate for outpatient treatment. <Jorge Light - Last Filed: 01/23/18 18:37> Disposition: Home <Jorge Light - Last Filed: 01/23/18 18:37> ED Disposition <Olivier Sarah - Last Filed: 01/23/18 16:38> <Jorge Light - Last Filed: 01/23/18 18:37> - Plan for ED Patient: Disposition: Home or Assisted Living Chief Complaint: Complaint Instructions: ED Prostatitis Prescriptions: Ciprofloxacin [Cipro] 500 mg PO BID #30 tab Referrals: Avni Castillo DO [Primary Care Provider] - Jimmy Alcala MD [STAFF PHYSICIAN] - 3-5 Days What to do if you have Problems For any increased pain, shortness of breath, bleeding, nausea or vomiting, chest pain, or any unexpected problems, contact your Primary Care Provider. Call [facility] ([phone]) or report to the closest Emergency Room. Call 911 if necessary. 02/03/18 0804 <Electronically signed by Olivier Sarah MD> Date Olivier Sarah MD 01/23/18 1838<Electronically signed by Jorge Light MD> Cosigner Signature (If Indicated): Date Jorge Light MD CC: Avni Serrato DO; Jimmy Alcala MD EMERGENCY DEPARTMENT Observed: 01/25/2018 Status: F Source: [place] SUMMARY 5:07 PM [facility] [place] REPOSITORY [facility] Medical Records Department [address] [place] [address] Emergency Department Summary 01/25/18 1644 MR#: [id number] Acct: [id number] Name: JAKE CHAIREZ Rep #: [id number] : 1975 42 From: Jorge Light MD PCP: Avni Serrato DO Status: REG ER - ER Visit Summary Date of Service: 01/25/18 Chief Complaint: Frequency, decreased stream and dysuria History of Present Illness: The patient is a 42 M who was seen on Sunday and diagnosed with acute prostatitis. He was prescribed ciprofloxacin. He was referred to Dr. Gene Alcala. He was sent from urgent care because of urinary retention. Patient denies fever or chills. He denies any testicular pain. He has decreased fullness in the rectal area which was a complaint/concern when seen on Sunday. He has no other complaints Physical Examination: Vital signs are marked for an elevated blood pressure 149/98 heart rate 105. He is not febrile. He has no discomfort in the suprapubic region. He has no CVA tenderness noted. He is alert and oriented. Motor and sensory are intact. Cranial 2 through 12 are intact. There is no dermatologic lesions or rash noted. Test Results: Bladder scan revealed only 135 cc of urine. Emergency Department Course and Treatment: A bladder scan was ordered. If there is evidence urinary retention Campos replaced otherwise we will treat with Pyridium for his dysuria. Treatment Plan: Azo 190 mg in the emergency department and prescription for the next 5 days. Disposition: Discharged to home Impression: Dysuria and urgency secondary to prostatitis This note was generated with [employer] dictation software. It may contain incorrect words, spelling, and punctuation that were not noted in review of the chart prior to signing ED Disposition - Plan for ED Patient: Disposition: Home or Assisted Living Chief Complaint: Complaint Instructions: ED Urethritis Infec Vs Inflam Male Prescriptions: Phenazopyridine HCl [Pyridium] 200 mg PO TID #14 tab Referrals: Avni Castillo DO [Primary Care Provider] - 3-5 Days if not improving Additional Instructions: Your prescription was electronically transmitted to [facility] pharmacy What to do if you have Problems For any increased pain, shortness of breath, bleeding, nausea or vomiting, chest pain, or any unexpected problems, contact your Primary Care Provider. Call [facility] ([phone]) or report to the closest Emergency Room. Call 911 if necessary. 01/25/18 8667 <Electronically signed by Jorge Light MD> Date Jorge Light MD Cosigner Signature (If Indicated): Date CC: Avni Serrato DO PROGRESS Observed: 01/25/2018 Status: COMPLETED Source: [place] 3:37 PM [facility] REPOSITORY HNO ID: [id number] Author: Supriya (Staff Radiation Therapist) Priscila Service: (none) Author Type: Nurse Practitioner Type: Progress Notes Filed: 01/25/2018 4:55 PM Note Text: HPI/CC: Jake Chairez is a 42 year old male who presents to the office today for ER follow-up. He was to [facility] following c/o urinary symptoms and fever. Dx: Acute prostatitis Sepsis Sinus tachycardia. Testing completed at the facility: CT scan showed prostatitis Labwork completed at the facility: CBC, urine culture Other specialist and follow up care: urology referral (has not seen yet). Started with symptoms on Sunday (01/22). Refers that pushed fluids. Evaluated in urgent care on Sunday (01/23), when symptoms were worsening. Sent to ER d/t fever. + burning and difficulty emptying bladder. Very cloudy urine. + fevers. ER did CT, which revealed prostatitis. Started cipro twice daily by mouth. Has been taking as prescribed. Refers that he is still having problems with urination. Does NOT feel like he is emptying the bladder completely when he urinates. Having problems with stream. Urine consistency may have cleared some. Still painful with urination. Still running fevers -- temp max today -- 100.3. Taking vicoprofen and tylenol. Last tylenol was around noon today. 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 SERVICE: 12/06/2017 : 1975 REFERRING PHYSICIAN: Avni Castillo DO Jake is a patient I am following for symptomatic internal hemorrhoids. The patient returns for hemorrhoidal banding. They have not take aspirin or other blood thinners for over 7 days. Since he had had bleeding in the past. I repeated hemoglobin, which was within normal range. He had noted bleeding again in the last couple days. VITALS: There were no vitals taken for this visit. There is no height or weight on file to calculate BMI. On examination, the patient has significant palpable hemorrhoid in the right lateral interal hemorrhoidal complex PROCEDURE: HEMORRHOIDAL BANDING The risks, benefits and anticipated outcomes of the procedure, the risks and benefits of the alternatives to the procedure, and the roles and tasks of the personnel to be involved, were discussed with the patient, and the patient consents to the procedure and agrees to proceed. After consent was obtained and the site, person, and procedure verified, the patient was positioned. A digital rectal exam was performed demonstrating internal hemorrhoids in theright lateral positions without other abnormalities. An anoscope was introduced demonstrating enlarged internal hemorrhoids with the left posterior complex appeared to have been the complex. It bled most recently. The hemorrhoidal complex was grasped with an forceps without causing discomfort to the patient. A single band was deployed over the complex. The patient remained asymptomatic. The anoscope was removed. The patient tolerated the procedure well. Assessment IMPRESSION: Status post right lateral interal hemorrhoidal banding PLAN: If the patient notes any problems or pain, they should contact me immediately. The patient was informed that- A small amount of bleeding is common when the hemorrhoid sloughs at 3-5 days. Do not that aspirin for the next week. If you have significant bleeding or other problems, contact our office. Diagnoses: (K64.8) Hemorrhoids, internal, with bleeding (primary encounter diagnosis) Return to Clinic: The patient is instructed to follow- up with me in 2 weeks for repeat banding if persistent bleeding. John London MD CNOV Observed: 12/06/2017 Status: COMPLETED Source: [place] 3:30 PM [facility] REPOSITORY Office Visit (GENSWS) JAKE CHAIREZ ([id number]) 1975 Date Time Provider Department 12/06/17 3:30 PM JOHN LONDON During your visit today, we recorded the following information about you: Viola Bustilols LPN 12/06/2017 4:37 PM Signed INFORMED CONSENT Jake Chairez Medical Record: [id number] Procedure:hemorrhoid banding The risks, benefits and anticipated outcomes of the procedure, the risks and benefits of the alternatives to the procedure and the roles and tasks of the personnel to be involved were discussed with the patient and the patient consents to the procedure and agrees to proceed. I verify that I personally obtained Jake Chairez's consent. Viola Bustillos LPN December 06, 2017 4:37 PM Dept of GENERAL SURGERY UNIVERSAL PROTOCOL / SAFETY CHECKLIST Procedure to be performed: hemorrhoid banding Sign in Communication: Completed Time Out: Team Confirms the Correct Patient, Correct Procedure, Correct Site and Site Marking, Correct Position (if applicable), Prep and Dry Time (if applicable). Time: 437 pm Affirmation of Time Out: YES Sign Out Discussion: Completed Viola London MD 12/08/2017 6:46 AM Signed FOLLOW UP VISIT - HEMORRHOID BANDING NAME: Jake Chairez [facility] NO.: [id number] DATE OF SERVICE: 12/06/2017 : 1975 REFERRING PHYSICIAN: Avni Castillo DO Jake is a patient I am following for symptomatic internal hemorrhoids. The patient returns for hemorrhoidal banding. They have not take aspirin or other blood thinners for over 7 days. Since he had had bleeding in the past. I repeated hemoglobin, which was within normal range. He had noted bleeding again in the last couple days. VITALS: There were no vitals taken for this visit. There is no height or weight on file to calculate BMI. On examination, the patient has significant palpable hemorrhoid in the right lateral interal hemorrhoidal complex PROCEDURE: HEMORRHOIDAL BANDING The risks, benefits and anticipated outcomes of the procedure, the risks and benefits of the alternatives to the procedure, and the roles and tasks of the personnel to be involved, were discussed with the patient, and the patient consents to the procedure and agrees to proceed. After consent was obtained and the site, person, and procedure verified, the patient was positioned. A digital rectal exam was performed demonstrating internal hemorrhoids in theright lateral positions without other abnormalities. An anoscope was introduced demonstrating enlarged internal hemorrhoids with the left posterior complex appeared to have been the complex. It bled most recently. The hemorrhoidal complex was grasped with an forceps without causing discomfort to the patient. A single band was deployed over the complex. The patient remained asymptomatic. The anoscope was removed. The patient tolerated the procedure well. Assessment IMPRESSION: Status post right lateral interal hemorrhoidal banding PLAN: If the patient notes any problems or pain, they should contact me immediately. The patient was informed that- A small amount of bleeding is common when the hemorrhoid sloughs at 3-5 days. Do not that aspirin for the next week. If you have significant bleeding or other problems, contact our office. Diagnoses: (K64.8) Hemorrhoids, internal, with bleeding (primary encounter diagnosis) Return to Clinic: The patient is instructed to follow- up with me in 2 weeks for repeat banding if persistent bleeding. MD John Boland MD 12/08/2017 6:46 AM Signed The following instructions are important for you related to your office visit today with the [facility] General Surgeons. INSTRUCTIONS FOLLOWING HEMORRHOIDAL BANDING If you note any problems such as pain, fever or urinary difficulties, you should contact me immediately. A small amount of bleeding is common when the hemorrhoid sloughs at 3-5 days. Do not that aspirin for the next week. If you have significant bleeding or other problems, contact our office If you note any additional difficulties or concerns, you should contact our office immediately. If you note any additional difficulties, questions, or concerns, you should contact our office immediately @ [phone] and ask to be transferred to the General Surgery department. Referring Provider: SELF [[id number]] Allergies As of Date: 12/06/2017 Noted Allergy Reaction ADVAIR DISKUS (FLUTICASONE-SALMET*05/18/2017 14 - Other: See Comments Comments: Thrush CODEINE 07/31/2005 8 - GI Upset Environmental [Other] 05/25/2011 16 - Unknown Comments: Cats, dogs, dust mites, grasses, weeds, ragweed FLONASE (FLUTICASONE PROPIONATE) 07/31/2005 Comments: MIGRAINE GABAPENTIN 10/24/2017 1 - Mental Status Change Comments: Suicidal ideations QVAR (BECLOMETHASONE DIPROPIONATE)05/18/2017 14 - Other: See Comments Comments: Thrush SYMBICORT (BUDESONIDE-FORMOTEROL) 05/18/2017 14 - Other: See Comments Comments: [place]ush TETANUS-DIPHTHERIA TOXOIDS-TD 06/22/2006 7 - Swelling Comments: swelling at site and numbness in arm Date Reviewed: 12/06/2017 Reviewed by: Viola Bustillos LPN - Fully Assessed Reason for Visit: Hemorrhoids [62798] Primary Visit Diagnosis:Hemorrhoids, internal, with bleeding [K64.8] Prescriptions as of 12/06/2017 Sig: FORMOTEROL FUMARATE 20 MCG/2 * Inhale 2 mL as instructed jonatan* PREDNISONE 10 MG TABLET 4 tabs daily for 3 days, 3 ta* CYCLOBENZAPRINE 10 MG TABLET Take 1 tablet by mouth three * OMEPRAZOLE 40 MG CAPSULE,MELI* Take 1 capsule by mouth once * HYDROCHLOROTHIAZIDE 12.5 MG C* Take 1 capsule by mouth once * PROMETHAZINE 25 MG TABLET Take 1 tablet by mouth every * HYDROCODONE 7.5 MG-IBUPROFEN * Take 1-2 tablets by mouth onc* HYDROCODONE 7.5 MG-IBUPROFEN * Take 1-2 tablets by mouth onc* HYDROCODONE 7.5 MG-IBUPROFEN * Take 1-2 tablets by mouth onc* BUDESONIDE 0.5 MG/2 ML SUSPEN* Use 2 mL via nebulizer twice * MONTELUKAST 10 MG TABLET TAKE ONE TABLET BY MOUTH ONCE* IPRATROPIUM 20 MCG-ALBUTEROL * 1 puffs QID for asthma IPRATROPIUM-ALBUTEROL 0.5 MG-* Inhale 3 mL as instructed jonatan* FEXOFENADINE 180 MG TABLET Take 1 tablet by mouth once d* ALBUTEROL SULFATE HFA 90 MCG/* Inhale 2 Puffs as instructed * RIZATRIPTAN 10 MG DISINTEGRAT* Take 1 tablet by mouth as nee* NITROGLYCERIN 0.4 MG SUBLINGU* Dissolve 1 tablet under the t* TRIAMCINOLONE ACETONIDE 0.1 %* APPLY SPARINGLY TO AFFECTED A* KETOCONAZOLE 2 % TOPICAL CREAM Apply 1 application to affect* DESONIDE 0.05 % TOPICAL CREAM Apply 1 application to affect* ATORVASTATIN 40 MG TABLET Take 1 tablet by mouth daily * LISINOPRIL 20 MG TABLET Take 1 tablet by mouth once d* LORAZEPAM 0.5 MG TABLET Take 1 tablet by mouth twice * Problem List As Of Date 12/06/2017 Noted Resolved ESOPHAGEAL REFLUX [K21.9] Priority: Severe More... ALLERGIC RHINITIS NOS [J30.9] Priority: Moderate ASTHMA UNSPEC W STATUS ASTH [J45.902] 03/28/2007 BENIGN HYPERTENSION [I10] INVALID FOR* Priority: Moderate MIXED HYPERLIPIDEMIA [E78.2] INVALID FOR* Priority: Severe GENERALIZED ANXIETY DIS [F41.1] INVALID FOR* Priority: Mild ABDOMINAL PAIN( Right Upper Quadrant) [R10.11] INVALID FOR*03/05/2009 Priority: Moderate BENIGN NEOPLASM LG BOWEL [D12.6] INVALID FOR*03/28/2007 Displacement of Lumbar Intervertebral Disc with* Priority: Severe More... IBS [K58.9] Priority: Moderate Mild persistent asthma without complication [J4* Priority: Moderate CARPAL TUNNEL SYNDROME [G56.00] Priority: Mild DEPRESSION [F32.9] Priority: Moderate PERS HX COLONIC POLYPS [Z86.010] Priority: Severe More... COMMON MIGRAINE [346.1] 10/22/2007 Priority: Moderate NON-ALCOHOLIC STEATOHEPATITIS [K76.9] INVALID FOR* More... 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] INVALID FOR* CRUZ (nonalcoholic steatohepatitis) [K75.81] INVALID FOR* Internal hemorrhoids without mention of complic*INVALID FOR* Dermatofibroma of right lower leg [D23.71] INVALID FOR* Neoplasm of uncertain behavior of skin [D48.5] INVALID FOR* Atypical nevus of lower leg [D22.70] INVALID FOR* Atypical nevus of abdominal wall [D22.5] INVALID FOR* Compound nevus of abdominal wall [D22.5] INVALID FOR* Intradermal melanocytic nevus [D22.9] INVALID FOR* Melanocytic nevi of trunk [D22.5] INVALID FOR* Actinic skin damage [L57.8] INVALID FOR* Tobacco abuse [Z72.0] INVALID FOR* Low back pain [M54.5] INVALID FOR* Lumbar degenerative disc disease [M51.36] INVALID FOR* Lumbosacral neuritis [M54.17] INVALID FOR* Anemia [D64.9] INVALID FOR* RB (rectal bleeding) [K62.5] INVALID FOR* SARAH (iron deficiency anemia) [D50.9] INVALID FOR* Iron malabsorption [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 Opiate dependence, continuous (HCC) [F11.20] INVALID FOR* Chronic pain [G89.29] INVALID FOR* Migraine without aura and without status migrai*INVALID FOR* Iron deficiency anemia due to chronic blood los*INVALID FOR* Sarcoidosis of lung (HCC) [D86.0] INVALID FOR* More... Other instructions from your clinician: The following instructions are important for you related to your office visit today with the [facility] General Surgeons. INSTRUCTIONS FOLLOWING HEMORRHOIDAL BANDING If you note any problems such as pain, fever or urinary difficulties, you should contact me immediately. A small amount of bleeding is common when the hemorrhoid sloughs at 3-5 days. Do not that aspirin for the next week. If you have significant bleeding or other problems, contact our office If you note any additional difficulties or concerns, you should contact our office immediately. If you note any additional difficulties, questions, or concerns, you should contact our office immediately @ [phone] and ask to be transferred to the General Surgery department. Visit Notes: >> Viola Bustillos LPN [place] Dec 06, 2017 4:37 PM Status: Signed INFORMED CONSENT Jake Chairez Medical Record: [id number] Procedure:hemorrhoid banding The risks, benefits and anticipated outcomes of the procedure, the risks and benefits of the alternatives to the procedure and the roles and tasks of the personnel to be involved were discussed with the patient and the patient consents to the procedure and agrees to proceed. I verify that I personally obtained Jake Chairez's consent. Viola Bustillos [facility] December 06, 2017 4:37 PM Dept of GENERAL SURGERY UNIVERSAL PROTOCOL / SAFETY CHECKLIST Procedure to be performed: hemorrhoid banding Sign in Communication: Completed Time Out: Team Confirms the Correct Patient, Correct Procedure, Correct Site and Site Marking, Correct Position (if applicable), Prep and Dry Time (if applicable). Time: 437 pm Affirmation of Time Out: YES Sign Out Discussion: Completed Viola Bustillos LPN Encounter Status:Closed by JOHN LONDON MD on 12/08/17 PROGRESS Observed: 11/16/2017 Status: COMPLETED Source: [place] 10:30 AM [facility] REPOSITORY HNO ID: [id number] Author: John London Service: (none) Author Type: Physician Type: Progress Notes Filed: 11/16/2017 10:33 AM Note Text: FOLLOW UP VISIT - HEMORRHOID BANDING NAME: Jake Chairez [facility] NO.: [id number] DATE OF SERVICE: 11/15/2017 : 1975 REFERRING PHYSICIAN: Avni Castillo DO Jake is a patient I am following for symptomatic internal hemorrhoids. The patient returns for hemorrhoidal banding. They have not take aspirin or other blood thinners for over 7 days. Since he had had bleeding in the past. I repeated hemoglobin, which was within normal range. He had noted bleeding again in the last couple days. VITALS: There were no vitals taken for this visit. There is no height or weight on file to calculate BMI. On examination, the patient has significant palpable hernia in the right lateral interal hemorrhoidal complex and a smaller hernia in the left posterior area . PROCEDURE: HEMORRHOIDAL BANDING The risks, benefits and anticipated outcomes of the procedure, the risks and benefits of the alternatives to the procedure, and the roles and tasks of the personnel to be involved, were discussed with the patient, and the patient consents to the procedure and agrees to proceed. After consent was obtained and the site, person, and procedure verified, the patient was positioned. A digital rectal exam was performed demonstrating internal hemorrhoids in the left posterior and right lateral positions without other abnormalities. An anoscope was introduced demonstrating enlarged internal hemorrhoids with the left posterior complex appeared to have been the complex. It bled most recently. The hemorrhoidal complex was grasped with an forceps without causing discomfort to the patient. A single band was deployed over the complex. The patient remained asymptomatic. The anoscope was removed. The patient tolerated the procedure well. Assessment IMPRESSION: Status post left posterior interal hemorrhoidal banding PLAN: If the patient notes any problems or pain, they should contact me immediately. The patient was informed that- A small amount of bleeding is common when the hemorrhoid sloughs at 3-5 days. Do not that aspirin for the next week. If you have significant bleeding or other problems, contact our office. Diagnoses: (K62.5) RB (rectal bleeding) (primary encounter diagnosis) (K64.8) Hemorrhoids, internal, with bleeding Return to Clinic: The patient is instructed to follow- up with me in 2 weeks. John London MD MRI LUMBAR SPINE WO Observed: 11/15/2017 Status: F Source: [place] IVCON 4:39 PM [facility] REPOSITORY * * *Final Report* * * DATE OF EXAM: Nov 15 2017 4:39PM WRM [id number] - MRI LUMBAR SPINE WO IVCON / PROCEDURE REASON: multiple diagnoses * * * * Physician Interpretation * * * * EXAMINATION: MRI LUMBAR SPINE WO IVCON HISTORY: Other intervertebral disc displacement, lumbar region Radiculopathy, lumbosacral region Radiculopathy, lumbar region Other intervertebral disc degeneration, lumbar region TECHNIQUE: Routine lumbosacral spine MR protocol without gadolinium. MQ: [id number] COMPARISON: 12/15/2009 RESULT: Counting reference: Lumbosacral junction. For the purposes of this report, L4-5 is considered the level of the iliac crest. Alignment: Alignment is anatomic. Bone marrow signal/fracture: Degenerative endplate marrow signal changes, mostly type I at L5-S1, progressed since the prior. No evidence of pathologic marrow infiltration otherwise. No evidence of prior fracture. Conus: The conus is within normal limits of signal intensity and morphology. Paraspinal soft tissues: Paraspinal soft tissues are within normal limits. Lower thoracic spine: Visualized lower thoracic canal and foramina are patent. T12-L1: Canal and foramina are patent. L1-L2: Canal and foramina are patent. L2-L3: Canal and foramina are patent L3-L4: Disc height loss and bulging, progressed. Mild bilateral foraminal stenosis, progressed. Canal is patent. L4-L5: Disc height loss and bulging with small caudally directed right paracentral extrusion. Facet hypertrophy. Mild crowding of the right subarticular zone. Mild bilateral foraminal stenosis. Similar to the prior. L5-S1: Disc height loss, progressed, and bulging with osteophyte formation as well as facet hypertrophy. Disc osteophyte complex contacts the traversing S1 nerve roots bilaterally causing mild posterior displacement on the left. Mild narrowing of bilateral subarticular zones left greater than right. Mild to moderate left and mild right foraminal stenosis, progressed. Sacrum and iliac wings: The visualized sacrum and iliac wings are within normal limits. IMPRESSION: Degenerative changes in the lumbar spine as detailed which have progressed since 12/15/2009. Findings are most notable for multilevel subarticular zone and foraminal narrowing, worst at L5-S1 on the left. No high-grade spinal canal stenosis. Highway Truck Driver: ELMO Transcribe Date/Time: Nov 15 2017 7:34P Dictated by : FAUSTINA ROLDAN MD This examination was interpreted and the report reviewed and electronically signed by: FAUSTINA ROLDAN MD on Nov 15 2017 7:41PM EST [id number] PROGRESS Observed: 11/15/2017 Status: COMPLETED Source: [place] 4:38 PM [facility] REPOSITORY HNO ID: [id number] Author: Sneha Lopez Rt Service: (none) Author Type: (none) Type: Progress Notes Filed: 11/15/2017 4:38 PM Note Text: Radiology Service Progress Note PATIENT NAME: Jake Chairez DATE OF SERVICE: November 15, 2017 TIME: 4:38 PM PATIENT IDENTITY VERIFICATION COMPLETED USING TWO (2) METHODS: Patient confirmed name verbally and Date of . PATIENT GENDER DATA: Male PATIENT RELEVANT IMPLANT DATA REVIEWED: Yes RADIOLOGY DEPARTMENT: MR; Exam(s) Completed: Spine: Lumbar spine PERIPHERAL IV DATA: Not applicable SIGNED BY: Sneha Lopez Rt November 15, 2017 4:38 PM PROGRESS Observed: 11/15/2017 Status: COMPLETED Source: [place] 3:24 PM [facility] REPOSITORY HNO ID: [id number] Author: Ubaldo Wagner LPN Service: (none) Author Type: (none) Type: Progress Notes Filed: 11/16/2017 10:33 AM Note Text: UNIVERSAL PROTOCOL / SAFETY CHECKLIST Procedure to be performed: hemorrhoid banding Sign in Communication: Completed Time Out: Team Confirms the Correct Patient, Correct Procedure, Correct Site and Site Marking, Correct Position (if applicable), Prep and Dry Time (if applicable). Time: 1525 Affirmation of Time Out: N/A Sign Out Discussion: Completed Ubaldo Wagner LPN CNOV Observed: 11/15/2017 Status: COMPLETED Source: [place] 2:30 PM [facility] REPOSITORY Office Visit (SWS) JAKE CHAIREZ ([id number]) 1975 M Date Time Provider Department 11/15/17 2:30 PM JOHN LONDON [facility] During your visit today, we recorded the following information about you: Ubaldo Wagner LPN 11/16/2017 10:33 AM Signed UNIVERSAL PROTOCOL / SAFETY CHECKLIST Procedure to be performed: hemorrhoid banding Sign in Communication: Completed Time Out: Team Confirms the Correct Patient, Correct Procedure, Correct Site and Site Marking, Correct Position (if applicable), Prep and Dry Time (if applicable). Time: 1525 Affirmation of Time Out: N/A Sign Out Discussion: Completed Ubaldo London MD 11/16/2017 10:33 AM Signed FOLLOW UP VISIT - HEMORRHOID BANDING NAME: Jake Chairez CLINIC NO.: [id number] DATE OF SERVICE: 11/15/2017 : 1975 REFERRING PHYSICIAN: Avni Castillo DO Jake is a patient I am following for symptomatic internal hemorrhoids. The patient returns for hemorrhoidal banding. They have not take aspirin or other blood thinners for over 7 days. Since he had had bleeding in the past. I repeated hemoglobin, which was within normal range. He had noted bleeding again in the last couple days. VITALS: There were no vitals taken for this visit. There is no height or weight on file to calculate BMI. On examination, the patient has significant palpable hernia in the right lateral interal hemorrhoidal complex and a smaller hernia in the left posterior area . PROCEDURE: HEMORRHOIDAL BANDING The risks, benefits and anticipated outcomes of the procedure, the risks and benefits of the alternatives to the procedure, and the roles and tasks of the personnel to be involved, were discussed with the patient, and the patient consents to the procedure and agrees to proceed. After consent was obtained and the site, person, and procedure verified, the patient was positioned. A digital rectal exam was performed demonstrating internal hemorrhoids in the left posterior and right lateral positions without other abnormalities. An anoscope was introduced demonstrating enlarged internal hemorrhoids with the left posterior complex appeared to have been the complex. It bled most recently. The hemorrhoidal complex was grasped with an forceps without causing discomfort to the patient. A single band was deployed over the complex. The patient remained asymptomatic. The anoscope was removed. The patient tolerated the procedure well. Assessment IMPRESSION: Status post left posterior interal hemorrhoidal banding PLAN: If the patient notes any problems or pain, they should contact me immediately. The patient was informed that- A small amount of bleeding is common when the hemorrhoid sloughs at 3-5 days. Do not that aspirin for the next week. If you have significant bleeding or other problems, contact our office. Diagnoses: (K62.5) RB (rectal bleeding) (primary encounter diagnosis) (K64.8) Hemorrhoids, internal, with bleeding Return to Clinic: The patient is instructed to follow- up with me in 2 weeks. MD John Boland MD 11/16/2017 10:33 AM Signed The following instructions are important for you related to your office visit today with the [facility] General Surgeons. Instructions After HEMORRHOIDIAL BANDING If you note worsening anal pain, fever or significant anal redness or swellingcontact the office immediately. Minor bleeding from the anus is common. If there is continued bleeding, you should contact our office immediately. The banded hemorrhoidal complex will slough off in 4-5 days on average. Bleeding or some tissue with a black rubber band may be seen in the toilet bowl. You may require multiple bandings to correct your internal hemorrhoidal symptoms. Please make an appointment to return to our office in 14- 21 days for possible repeat banding if your symptoms have not resolved. If you note any additional difficulties, questions, or concerns, you should contact our office immediately @ [phone] and ask to be transferred to the General Surgery department. Referring Provider: SELF [[id number]] Allergies As of Date: 11/15/2017 Noted Allergy Reaction ADVAIR DISKUS (FLUTICASONE-SALMET*05/18/2017 14 - Other: See Comments Comments: Simran CODEINE 07/31/2005 8 - GI Upset Environmental [Other] 05/25/2011 16 - Unknown Comments: Cats, dogs, dust mites, grasses, weeds, ragweed FLONASE (FLUTICASONE PROPIONATE) 07/31/2005 Comments: MIGRAINE GABAPENTIN 10/24/2017 1 - Mental Status Change Comments: Suicidal ideations QVAR (BECLOMETHASONE DIPROPIONATE)05/18/2017 14 - Other: See Comments Comments: Thrush SYMBICORT (BUDESONIDE-FORMOTEROL) 05/18/2017 14 - Other: See Comments Comments: Simran TETANUS-DIPHTHERIA TOXOIDS-TD 06/22/2006 7 - Swelling Comments: swelling at site and numbness in arm Date Reviewed: 11/15/2017 Reviewed by: Ubaldo Wagner LPN - Fully Assessed Primary Visit Diagnosis:RB (rectal bleeding) [K62.5] Other Visit Diagnosis:Hemorrhoids, internal, with bleeding [K64.8] Prescriptions as of 11/15/2017 Sig: FORMOTEROL FUMARATE 20 MCG/2 * Inhale 2 mL as instructed jonatan* PREDNISONE 10 MG TABLET 4 tabs daily for 3 days, 3 ta* CYCLOBENZAPRINE 10 MG TABLET Take 1 tablet by mouth three * OMEPRAZOLE 40 MG CAPSULE,MELI* Take 1 capsule by mouth once * HYDROCHLOROTHIAZIDE 12.5 MG C* Take 1 capsule by mouth once * PROMETHAZINE 25 MG TABLET Take 1 tablet by mouth every * HYDROCODONE 7.5 MG-IBUPROFEN * Take 1-2 tablets by mouth onc* HYDROCODONE 7.5 MG-IBUPROFEN * Take 1-2 tablets by mouth onc* HYDROCODONE 7.5 MG-IBUPROFEN * Take 1-2 tablets by mouth onc* BUDESONIDE 0.5 MG/2 ML SUSPEN* Use 2 mL via nebulizer twice * MONTELUKAST 10 MG TABLET TAKE ONE TABLET BY MOUTH ONCE* IPRATROPIUM 20 MCG-ALBUTEROL * 1 puffs QID for asthma IPRATROPIUM-ALBUTEROL 0.5 MG-* Inhale 3 mL as instructed jonatan* FEXOFENADINE 180 MG TABLET Take 1 tablet by mouth once d* ALBUTEROL SULFATE HFA 90 MCG/* Inhale 2 Puffs as instructed * RIZATRIPTAN 10 MG DISINTEGRAT* Take 1 tablet by mouth as nee* NITROGLYCERIN 0.4 MG SUBLINGU* Dissolve 1 tablet under the t* TRIAMCINOLONE ACETONIDE 0.1 %* APPLY SPARINGLY TO AFFECTED A* KETOCONAZOLE 2 % TOPICAL CREAM Apply 1 application to affect* DESONIDE 0.05 % TOPICAL CREAM Apply 1 application to affect* ATORVASTATIN 40 MG TABLET Take 1 tablet by mouth daily * LISINOPRIL 20 MG TABLET Take 1 tablet by mouth once d* LORAZEPAM 0.5 MG TABLET Take 1 tablet by mouth twice * Problem List As Of Date 11/15/2017 Noted Resolved ESOPHAGEAL REFLUX [K21.9] Priority: Severe More... ALLERGIC RHINITIS NOS [J30.9] Priority: Moderate ASTHMA UNSPEC W STATUS ASTH [J45.902] 03/28/2007 BENIGN HYPERTENSION [I10] INVALID FOR* Priority: Moderate MIXED HYPERLIPIDEMIA [E78.2] INVALID FOR* Priority: Severe GENERALIZED ANXIETY DIS [F41.1] INVALID FOR* Priority: Mild ABDOMINAL PAIN( Right Upper Quadrant) [R10.11] INVALID FOR*03/05/2009 Priority: Moderate BENIGN NEOPLASM LG BOWEL [D12.6] INVALID FOR*03/28/2007 Displacement of Lumbar Intervertebral Disc with* Priority: Severe More... IBS [K58.9] Priority: Moderate Mild persistent asthma without complication [J4* Priority: Moderate CARPAL TUNNEL SYNDROME [G56.00] Priority: Mild DEPRESSION [F32.9] Priority: Moderate PERS HX COLONIC POLYPS [Z86.010] Priority: Severe More... COMMON MIGRAINE [346.1] 10/22/2007 Priority: Moderate NON-ALCOHOLIC STEATOHEPATITIS [K76.9] INVALID FOR* More... 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] INVALID FOR* CRUZ (nonalcoholic steatohepatitis) [K75.81] INVALID FOR* Internal hemorrhoids without mention of complic*INVALID FOR* Dermatofibroma of right lower leg [D23.71] INVALID FOR* Neoplasm of uncertain behavior of skin [D48.5] INVALID FOR* Atypical nevus of lower leg [D22.70] INVALID FOR* Atypical nevus of abdominal wall [D22.5] INVALID FOR* Compound nevus of abdominal wall [D22.5] INVALID FOR* Intradermal melanocytic nevus [D22.9] INVALID FOR* Melanocytic nevi of trunk [D22.5] INVALID FOR* Actinic skin damage [L57.8] INVALID FOR* Tobacco abuse [Z72.0] INVALID FOR* Low back pain [M54.5] INVALID FOR* Lumbar degenerative disc disease [M51.36] INVALID FOR* Lumbosacral neuritis [M54.17] INVALID FOR* Anemia [D64.9] INVALID FOR* RB (rectal bleeding) [K62.5] INVALID FOR* SARAH (iron deficiency anemia) [D50.9] INVALID FOR* Iron malabsorption [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 Opiate dependence, continuous (HCC) [F11.20] INVALID FOR* Chronic pain [G89.29] INVALID FOR* Migraine without aura and without status migrai*INVALID FOR* Iron deficiency anemia due to chronic blood los*INVALID FOR* Sarcoidosis of lung (HCC) [D86.0] INVALID FOR* More... Other instructions from your clinician: The following instructions are important for you related to your office visit today with the [facility] General Surgeons. Instructions After HEMORRHOIDIAL BANDING If you note worsening anal pain, fever or significant anal redness or swellingcontact the office immediately. Minor bleeding from the anus is common. If there is continued bleeding, you should contact our office immediately. The banded hemorrhoidal complex will slough off in 4-5 days on average. Bleeding or some tissue with a black rubber band may be seen in the toilet bowl. You may require multiple bandings to correct your internal hemorrhoidal symptoms. Please make an appointment to return to our office in 14-21 days for possible repeat banding if your symptoms have not resolved. If you note any additional difficulties, questions, or concerns, you should contact our office immediately @ [phone] and ask to be transferred to the General Surgery department. Encounter Status:Closed by JOHN LONDON MD on 11/16/17 CBC AND DIFFERENTIAL Collected: 11/14/2017 Status: F Source: [place] 4:02 PM [facility] REPOSITORY TYPE CODE TESTS RESULT OUT OF REFERENCE UNITS RANGE LAB WBC 3.70-11.00 k/uL WBC 6.08 LAB RBC 4.20-6.00 m/uL RBC 4.47 LAB HGB 13.0-17.0 g/dL Hemoglobin 13.5 LAB HCT 39.0-51.0 % Hematocrit 41.2 LAB MCV 80.0-100.0 fL MCV 92.2 LAB MCH 26.0-34.0 pG MCH 30.2 LAB MCHC 30.5-36.0 g/dL MCHC 32.8 LAB RDWCV 11.5-15.0 % RDW-CV 13.1 LAB PLTCT 150-400 k/uL Platelet Count 279 LAB MPV 9.0-12.7 fL MPV 10.2 LAB ANEUT % Neut% 66.0 LAB AANEUT 1.45-7.50 k/uL Abs Neut 4.02 LAB ALYMP % Lymph% 21.9 LAB AALYMP 1.00-4.00 k/uL Abs Lymph 1.33 LAB AMONO % Emanuel% 7.1 LAB AAMONO <0.87 k/uL Abs Emanuel 0.43 LAB AEOS % Eosin% 4.3 LAB AAEOS <0.46 k/uL Abs Eosin 0.26 LAB ABASO % Baso% 0.7 LAB AABASO <0.11 k/uL Abs Baso 0.04 LAB AUNRBC 0 /100 WBC NRBCs 0.0 LAB ABNRBC <0.01 k/uL Absolute nRBC <0.01 LAB DTYP DTYPE Auto Diff Performed By: #### CBCDIF #### [facility] [address] [place], [place] [address] PROGRESS Observed: 11/13/2017 Status: COMPLETED Source: [place] 6:26 PM [facility] REPOSITORY HNO ID: [id number] Author: John London Service: (none) Author Type: Physician Type: Progress Notes Filed: 11/13/2017 6:30 PM Note Text: FOLLOW UP VISIT - ENDOSCOPY NAME: Jake Gonzalez [facility] NO.: [id number] DATE OF SERVICE: 01/08/2017 : 1975 REFERRING PHYSICIAN: Avni Castillo DO Jake is a patient I am following for GI bleeding and anemia. The patient is a 41 year old male referred for endoscopy. Jake notes rectal bleeding. He has a history of a bleeding internal hemorrhoid. He initially noted hemoccult positive stools and then gino rectal bleeding. He was admitted to [facility] and found to have a hemoglobin of 6. He was transfused and underwent unremarkable upper endoscopy by Dr. Barry. Jake has undergone prior endoscopy. He has a prior history of colon polyps. I performed colonoscopy in 2012 what was normal. He also had prior banding of internal hemorrhoids. I performed lower endoscopy on December 27, 2016. The patient was found to have a sessile polyp at 20 cm which was approximately 1 cm in length and return as an adenomatous polyp. There were no signs of recent bleeding or no other areas of suspicion. The anal verge appeared somewhat irritated. The patient had been doing well since I saw him last year. He had an unremarkable CBC with a hemoglobin of 14.9 September 24, 2017. For the past 2 weeks, the patient noted bright red blood per rectum. Again, with occasional clots in the toilet bowl. He notes this is not mixed within the stool. He feels also that he has prolapsing hemorrhoidal tissue, then most likely the bleeding is hemorrhoidal in origin. He has not noticed bleeding for at least the past few days. VITALS: There were no vitals taken for this visit. On examination, the abdomen is benign. Digital rectal exam reveals no stool in vault. He has a right lateral significant hemorrhoidal complex. There was no blood on the digit IMPRESSION: Recurrent rectal bleeding, patient feels this is likely hemorrhoidal bleeding PLAN: I ordered a CBC to assure the patient's hemoglobin does not drop significantly. Otherwise, I plan to have him return for endoscopy and hemorrhoidal Banding to see if this controls his rectal bleeding. Diagnoses: (K62.5) RB (rectal bleeding) (primary encounter diagnosis) Return to Clinic: The patient is instructed to follow- up with me John London MD CNOV Observed: 11/13/2017 Status: COMPLETED Source: [place] 3:40 PM [facility] REPOSITORY Office Visit (GENSWS) JAKE CHAIREZ ([id number]) 1975 M Date Time Provider Department 11/13/17 3:40 PM JOHN LONDON GENSWS During your visit today, we recorded the following information about you: John London MD 11/13/2017 6:30 PM Signed FOLLOW UP VISIT - ENDOSCOPY NAME: Jake Carlos Chairez [facility] NO.: [id number] DATE OF SERVICE: 01/08/2017 : 1975 REFERRING PHYSICIAN: Avni Castillo DO Jake is a patient I am following for GI bleeding and anemia. The patient is a 41 year old male referred for endoscopy. Jake notes rectal bleeding. He has a history of a bleeding internal hemorrhoid. He initially noted hemoccult positive stools and then gino rectal bleeding. He was admitted to [facility] and found to have a hemoglobin of 6. He was transfused and underwent unremarkable upper endoscopy by Dr. Barry. Jake has undergone prior endoscopy. He has a prior history of colon polyps. I performed colonoscopy in 2012 what was normal. He also had prior banding of internal hemorrhoids. I performed lower endoscopy on December 27, 2016. The patient was found to have a sessile polyp at 20 cm which was approximately 1 cm in length and return as an adenomatous polyp. There were no signs of recent bleeding or no other areas of suspicion. The anal verge appeared somewhat irritated. The patient had been doing well since I saw him last year. He had an unremarkable CBC with a hemoglobin of 14.9 September 24, 2017. For the past 2 weeks, the patient noted bright red blood per rectum. Again, with occasional clots in the toilet bowl. He notes this is not mixed within the stool. He feels also that he has prolapsing hemorrhoidal tissue, then most likely the bleeding is hemorrhoidal in origin. He has not noticed bleeding for at least the past few days. VITALS: There were no vitals taken for this visit. On examination, the abdomen is benign. Digital rectal exam reveals no stool in vault. He has a right lateral significant hemorrhoidal complex. There was no blood on the digit IMPRESSION: Recurrent rectal bleeding, patient feels this is likely hemorrhoidal bleeding PLAN: I ordered a CBC to assure the patient's hemoglobin does not drop significantly. Otherwise, I plan to have him return for endoscopy and hemorrhoidal Banding to see if this controls his rectal bleeding. Diagnoses: (K62.5) RB (rectal bleeding) (primary encounter diagnosis) Return to Clinic: The patient is instructed to follow- up with me John London MD Referring Provider: SELF [200] Allergies As of Date: 11/13/2017 Noted Allergy Reaction ADVAIR DISKUS (FLUTICASONE-SALMET*05/18/2017 14 - Other: See Comments Comments: Thrush CODEINE 07/31/2005 8 - GI Upset Environmental [Other] 05/25/2011 16 - Unknown Comments: Cats, dogs, dust mites, grasses, weeds, ragweed FLONASE (FLUTICASONE PROPIONATE) 07/31/2005 Comments: MIGRAINE GABAPENTIN 10/24/2017 1 - Mental Status Change Comments: Suicidal ideations QVAR (BECLOMETHASONE DIPROPIONATE)05/18/2017 14 - Other: See Comments Comments: Thrush SYMBICORT (BUDESONIDE-FORMOTEROL) 05/18/2017 14 - Other: See Comments Comments: Thrush TETANUS-DIPHTHERIA TOXOIDS-TD 06/22/2006 7 - Swelling Comments: swelling at site and numbness in arm Date Reviewed: 11/13/2017 Reviewed by: John London - Fully Assessed Reason for Visit: Established Patient [175] Cmt: Rectal bleeding Primary Visit Diagnosis:RB (rectal bleeding) [K62.5] Order(s):CBC + DIFF [SQCBCDIF] Order #: [id number] FUTURE Prescriptions as of 11/13/2017 Sig: FORMOTEROL FUMARATE 20 MCG/2 * Inhale 2 mL as instructed jonatan* PREDNISONE 10 MG TABLET 4 tabs daily for 3 days, 3 ta* CYCLOBENZAPRINE 10 MG TABLET Take 1 tablet by mouth three * OMEPRAZOLE 40 MG CAPSULE,MELI* Take 1 capsule by mouth once * HYDROCHLOROTHIAZIDE 12.5 MG C* Take 1 capsule by mouth once * PROMETHAZINE 25 MG TABLET Take 1 tablet by mouth every * HYDROCODONE 7.5 MG-IBUPROFEN * Take 1-2 tablets by mouth onc* HYDROCODONE 7.5 MG-IBUPROFEN * Take 1-2 tablets by mouth onc* HYDROCODONE 7.5 MG-IBUPROFEN * Take 1-2 tablets by mouth onc* BUDESONIDE 0.5 MG/2 ML SUSPEN* Use 2 mL via nebulizer twice * MONTELUKAST 10 MG TABLET TAKE ONE TABLET BY MOUTH ONCE* IPRATROPIUM 20 MCG-ALBUTEROL * 1 puffs QID for asthma IPRATROPIUM-ALBUTEROL 0.5 MG-* Inhale 3 mL as instructed jonatan* FEXOFENADINE 180 MG TABLET Take 1 tablet by mouth once d* ALBUTEROL SULFATE HFA 90 MCG/* Inhale 2 Puffs as instructed * RIZATRIPTAN 10 MG DISINTEGRAT* Take 1 tablet by mouth as nee* NITROGLYCERIN 0.4 MG SUBLINGU* Dissolve 1 tablet under the t* TRIAMCINOLONE ACETONIDE 0.1 %* APPLY SPARINGLY TO AFFECTED A* KETOCONAZOLE 2 % TOPICAL CREAM Apply 1 application to affect* DESONIDE 0.05 % TOPICAL CREAM Apply 1 application to affect* ATORVASTATIN 40 MG TABLET Take 1 tablet by mouth daily * LISINOPRIL 20 MG TABLET Take 1 tablet by mouth once d* LORAZEPAM 0.5 MG TABLET Take 1 tablet by mouth twice * Problem List As Of Date 11/13/2017 Noted Resolved ESOPHAGEAL REFLUX [K21.9] Priority: Severe More... ALLERGIC RHINITIS NOS [J30.9] Priority: Moderate ASTHMA UNSPEC W STATUS ASTH [J45.902] 03/28/2007 BENIGN HYPERTENSION [I10] INVALID FOR* Priority: Moderate MIXED HYPERLIPIDEMIA [E78.2] INVALID FOR* Priority: Severe GENERALIZED ANXIETY DIS [F41.1] INVALID FOR* Priority: Mild ABDOMINAL PAIN( Right Upper Quadrant) [R10.11] INVALID FOR*03/05/2009 Priority: Moderate BENIGN NEOPLASM LG BOWEL [D12.6] INVALID FOR*03/28/2007 Displacement of Lumbar Intervertebral Disc with* Priority: Severe More... IBS [K58.9] Priority: Moderate Mild persistent asthma without complication [J4* Priority: Moderate CARPAL TUNNEL SYNDROME [G56.00] Priority: Mild DEPRESSION [F32.9] Priority: Moderate PERS HX COLONIC POLYPS [Z86.010] Priority: Severe More... COMMON MIGRAINE [346.1] 10/22/2007 Priority: Moderate NON-ALCOHOLIC STEATOHEPATITIS [K76.9] INVALID FOR* More... 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] INVALID FOR* CRUZ (nonalcoholic steatohepatitis) [K75.81] INVALID FOR* Internal hemorrhoids without mention of complic*INVALID FOR* Dermatofibroma of right lower leg [D23.71] INVALID FOR* Neoplasm of uncertain behavior of skin [D48.5] INVALID FOR* Atypical nevus of lower leg [D22.70] INVALID FOR* Atypical nevus of abdominal wall [D22.5] INVALID FOR* Compound nevus of abdominal wall [D22.5] INVALID FOR* Intradermal melanocytic nevus [D22.9] INVALID FOR* Melanocytic nevi of trunk [D22.5] INVALID FOR* Actinic skin damage [L57.8] INVALID FOR* Tobacco abuse [Z72.0] INVALID FOR* Low back pain [M54.5] INVALID FOR* Lumbar degenerative disc disease [M51.36] INVALID FOR* Lumbosacral neuritis [M54.17] INVALID FOR* Anemia [D64.9] INVALID FOR* RB (rectal bleeding) [K62.5] INVALID FOR* SARAH (iron deficiency anemia) [D50.9] INVALID FOR* Iron malabsorption [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 Opiate dependence, continuous (HCC) [F11.20] INVALID FOR* Chronic pain [G89.29] INVALID FOR* Migraine without aura and without status migrai*INVALID FOR* Iron deficiency anemia due to chronic blood los*INVALID FOR* Sarcoidosis of lung (HCC) [D86.0] INVALID FOR* More... Follow-up and Disposition History Recorded Encounter Status:Closed by JOHN LONDON MD on 11/13/17 PROGRESS Observed: 11/11/2017 Status: COMPLETED Source: [place] 2:19 PM [facility] REPOSITORY HNO ID: [id number] Author: Julien Leal Service: (none) Author Type: Physician Type: Progress Notes Filed: 11/11/2017 2:27 PM Note Text: [facility] [place], 11/01/2017: INTERVAL HISTORY: The patient is here for follow up of asthma. Since the last visit, patient relates no ED visit(s), no hospitalization(s) for management of exacerbation. no exacerbation(s) were managed without ED/hospital care. The patient has claimed consistent compliance with therapy recommended at the last visit. Paroxysmal cough, little sputum. Also notes paroxysmal wheezing and dyspnea. Frequent nocturnal awakenings, and frequent use of rescue bronchodilator, with brief non-sustained relief. PMH: Updated with patient today. No change. FAMH: Updated with patient today. No change. SOCH: Updated with patient today. No change. ROS: Reviewed with patient, confirmed as documented by Chandrika Campa LPN. TO Allergies were verified and updated, and medications were reconciled with the patient at this visit. PHYSICAL EXAMINATION: BP 134/82 Pulse 110 Resp 18 Wt 176 lb (79.8kg) SpO2 98% at rest on room air. Gen: No acute distress. Cooperative with examination. ENT: Sclerae clear. EOMI. Nares clear. Oral hygeine and dentition good. Pharynx clear. Resp: No stridor, accessory respiratory muscle use, supra- sternal or intercostal retractions. A-P diameter normal. No crackles, wheezes, rubs. CV: Regular rythm. Heart tones normal. Radial pulses normal. Abd: Not distended. MSK: No kyphoscoliosis, joint deformities. Ext: Warm and well perfused. No clubbing, cyanosis, edema. Skin: Color normal. Texture normal. No rash, eczema, urticaria. Neuro: Mental status normal. Affect normal. Muscle tone normal. No tremor. DATA REVIEW: Exhaled nitric oxide ([place]), 11/01/2017: 135 (normal < 25). IMPRESSION: Symptoms and elevated Salvador today consistent with exacerbation of underlying persistent asthma. RECOMMEND: 1. Continue Budesonide 0.5 mg via nebulizer twice daily every day. 2. Add Perforomist to Budesonide twice daily every day. 3. Prednisone 40 mg daily for 3 days, 30 mg daily for 3 days, 20 mg daily for 3 days, 10 mg daily for 3 days. 4. Continue Singulair 10 mg daily. 5. Continue Combivent Respimat 4 times daily as needed for shortness of breath, wheezing. I addressed the questions of the patient, and he expressed understanding and acceptance of my answers. Julien Leal MD, [facility] [place] [facility] [address] [place] [address] P: [phone] F: [phone] [email or web address] CNOV Observed: 11/01/2017 Status: COMPLETED Source: [place] 3:00 PM [facility] REPOSITORY Office Visit (PULMWS) JAKE CHAIREZ ([id number]) 1975 M Date Time Provider Department 11/01/17 3:00 PM JULIEN LEAL During your visit today, we recorded the following information about you: Pulse Respiration Blood pressure Weight 110/minute 18/minute 134/82 79.8 kg Chandrika Campa RETAIL CONSULTANT 11/01/2017 3:16 PM Signed ROS: General: Generally feels poorly. Appetite good. Eyes, Ears, nose, throat: notes post nasal drip. notes rhinorrhea. denies purulent nasal discharge. denies epistaxis. denies hoarseness. Vision clear. Cardiac: denies angina, denies edema, denies orthopnea. GI: denies heartburn. denies dysphagia. denies diarrhea. 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 denies hesitancy. denies nocturia. Menses: N/A Musculoskeletal: notes back pain. Neuro: denies headache, denies focal weakness. denies tremor. Skin: denies rash. Otherwise negative. Julien Leal MD 11/01/2017 3:43 PM Signed Symptoms and elevated [place] today consistent with exacerbation of underlying persistent asthma. RECOMMEND: 1. Continue Budesonide 0.5 mg via nebulizer twice daily every day. 2. Add Perforomist to Budesonide twice daily every day. 3. Prednisone 40 mg daily for 3 days, 30 mg daily for 3 days, 20 mg daily for 3 days, 10 mg daily for 3 days. 4. Continue Singulair 10 mg daily. 5. Continue Combivent Respimat 4 times daily as needed for shortness of breath, wheezing. Julien Leal MD, [facility] - [place] [facility] [place] [facility] [address] [place] [id number] P: [phone] F: [phone] [email or web address] Julien Leal MD 11/11/2017 2:27 PM Signed [facility] [place], 11/01/2017: INTERVAL HISTORY: The patient is here for follow up of asthma. Since the last visit, patient relates no ED visit(s), no hospitalization(s) for management of exacerbation. no exacerbation(s) were managed without ED/hospital care. The patient has claimed consistent compliance with therapy recommended at the last visit. Paroxysmal cough, little sputum. Also notes paroxysmal wheezing and dyspnea. Frequent nocturnal awakenings, and frequent use of rescue bronchodilator, with brief non-sustained relief. PMH: Updated with patient today. No change. FAMH: Updated with patient today. No change. SOCH: Updated with patient today. No change. ROS: Reviewed with patient, confirmed as documented by Chandrika Campa LPN. TO Allergies were verified and updated, and medications were reconciled with the patient at this visit. PHYSICAL EXAMINATION: BP 134/82 Pulse 110 Resp 18 Wt 176 lb (79.8kg) SpO2 98% at rest on room air. Gen: No acute distress. Cooperative with examination. ENT: Sclerae clear. EOMI. Nares clear. Oral hygeine and dentition good. Pharynx clear. Resp: No stridor, accessory respiratory muscle use, supra- sternal or intercostal retractions. A-P diameter normal. No crackles, wheezes, rubs. CV: Regular rythm. Heart tones normal. Radial pulses normal. Abd: Not distended. MSK: No kyphoscoliosis, joint deformities. Ext: Warm and well perfused. No clubbing, cyanosis, edema. Skin: Color normal. Texture normal. No rash, eczema, urticaria. Neuro: Mental status normal. Affect normal. Muscle tone normal. No tremor. DATA REVIEW: Exhaled nitric oxide (Salvador), 11/01/2017: 135 (normal ANDlt; 25). IMPRESSION: Symptoms and elevated [place] today consistent with exacerbation of underlying persistent asthma. RECOMMEND: 1. Continue Budesonide 0.5 mg via nebulizer twice daily every day. 2. Add Perforomist to Budesonide twice daily every day. 3. Prednisone 40 mg daily for 3 days, 30 mg daily for 3 days, 20 mg daily for 3 days, 10 mg daily for 3 days. 4. Continue Singulair 10 mg daily. 5. Continue Combivent Respimat 4 times daily as needed for shortness of breath, wheezing. I addressed the questions of the patient, and he expressed understanding and acceptance of my answers. Julien Leal MD, [facility] [place] [facility] [address] [place] [address] P: [phone] F: [phone] [email or web address] Referring Provider: SELF [200] Allergies As of Date: 11/01/2017 Noted Allergy Reaction ADVAIR DISKUS (FLUTICASONE-SALMET*05/18/2017 14 - Other: See Comments Comments: Thrush CODEINE 07/31/2005 8 - GI Upset Environmental [Other] 05/25/2011 16 - Unknown Comments: Cats, dogs, dust mites, grasses, weeds, ragweed FLONASE (FLUTICASONE PROPIONATE) 07/31/2005 Comments: MIGRAINE GABAPENTIN 10/24/2017 1 - Mental Status Change Comments: Suicidal ideations QVAR (BECLOMETHASONE DIPROPIONATE)05/18/2017 14 - Other: See Comments Comments: Simran SYMBICORT (BUDESONIDE-FORMOTEROL) 05/18/2017 14 - Other: See Comments Comments: Simran TETANUS-DIPHTHERIA TOXOIDS-TD 06/22/2006 7 - Swelling Comments: swelling at site and numbness in arm Date Reviewed: 11/01/2017 Reviewed by: Julien Leal - Fully Assessed Reason for Visit: Established Patient [175] Cmt: asthma Primary Visit Diagnosis:Moderate persistent asthma with exacerbation [J45.41] Order(s):formoterol fumarate (PERFOROMIST) 20 mcg/2 mL nebuInhale 2 mL as instructed every 12 hours.Disp: 60 VialRfl: 5 predniSONE (DELTASONE) 10 mg tablet4 tabs daily for 3 days, 3 tabs daily for 3 days, 2 tabs daily for 2 days, 1 tab daily for 3 days.Disp: 30 tabletRfl: 0 SPIROMETRY WITH DILATOR IF OBSTRUCTED [[id number]] Order #: [id number] FUTURE NITRIC OXIDE, EXHALED [[id number]] Order #: [id number] FUTURE Prescriptions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
== END ==
PROVIDERS: Family Provider Student in an Organized Health Care Education/Training Program; PCP Student in an Organized Health Care Education/Training Program; Referring Provider Orthopaedic Surgery Orthopaedic Surgery of the Spine; Visit Provider Orthopaedic Surgery Orthopaedic Surgery of the Spine
DX: Z98.890 Other specified postprocedural states (principal)
CPT/HCPCS: 36415; 82565

== ENCOUNTER 2019-03-05 11:35 | Emergency (ER) | payer OTHER, SELFPAY ==
[2019-03-05 11:36] VITALS: BP 160/105; PULSE 112; RESP 16; TEMP 36.8; O2SAT 95; BMI 27.5
--- NOTE | 2019-03-05 12:14 | ED.VIS.GEN ---
History of Present Illness Chief Complaint: Back Detail of Chief Complaint: bowel incontinence Informant: Patient Onset: Today Context: - - awoke in bed this AM noticing that he had apparent bowel incontinence in sleep; it was still warm when I rolled into it Narrative: Chronic back pain, had a failed surgery, which he details essentially by saying an MRI showed pressure on a nerve root along with persistent sciatic symptoms after surgery. This was remotely. Now, he is in pain management, he has chronic discomfort in his low back that is only different today in that it feels broader and not necessarily worse. He has no new neurologic symptoms in his lower extremities. He denies any leg weakness or difficulty walking except for with regards to discomfort in his back, which is chronic and stable. He has occasional paresthesias in his medial left lower leg, does not include the feet at all. That is not present at the current time. He denies any urinary retention or incontinence but does have a history of urinary tract infections and has symptoms of that for the past week including dysuria, frequency, hesitancy. These are symptoms he has had with urine infections in the past. He called his doctor but cannot get in to see her and she would not prescribe antibiotics empirically, which he is also asking for today. - Past Medical History (1) Chronic low back pain Status: Chronic (2) DDD (degenerative disc disease), lumbar Status: Chronic (3) Kidney stone Status: Chronic Past Medical History - Allergies and Home Meds Allergies/Adverse Reactions: Allergies tetanus immune globulin Allergy (Verified 03/05/19 11:37) Swelling codeine Adverse Reaction (Verified 03/05/19 11:37) Nausea fluticasone propionate [From Flonase] Adverse Reaction (Verified 03/05/19 11:37) MIGRAINE Primary Care Physician: Avni Salcedo DO [Primary Care Provider] - Surgical History: tonsillectomy, - - [place] teeth removal, radioablation of lumbar area Smoking Status: Former smoker - Family History Maternal Family History: Reports: Cancer Paternal Family History: Reports: Cancer Review of Systems General: Denies: Chills, Fever Eyes: Denies: Visual changes - bilaterally, Diplopia Gastrointestinal: Reports: Diarrhea, Hematochezia - BRB after BMs. Denies: Abdominal pain, Nausea, Vomiting, Melena Genitourinary: Reports: Dysuria, Frequency. Denies: Hematuria Musculoskeletal: Reports: Back pain. Denies: Swelling, Extremity Pain Skin: Denies: Rash, Wounds Neurological: Reports: Parasthesia - not currently. Denies: Headache, Weakness Physical Exam Vital Signs/Narrative: Vital Signs Temp Pulse Resp BP Pulse Ox 03/05/19 11:36 98.2 F 112 H 16 160/105 H 95 Inital Vital Signs reviewed: Yes General: Well nourished, Well developed, No Acute Distress - well-appearing Head: Normocephalic, Atraumatic Abdomen: Soft, Nontender, Nondistended, Normal bowel sounds Rectal: - - normal tone and sensation. no external or visible hemorrhoids/masses. No BRB present. Extremities: Nontender, No edema, - - negative bilat lower ext SLR while sitting Skin: Normal color, No rash, No Trauma Neurological: Alert, Oriented x3, Cranial nerves II-XII grossly intact, Normal Strength, Normal Sensation, Normal DTR - throughout BLE, including no clonus., Normal Gait Psychological: Normal affect, Normal Mood Diagnostic/Tx/Re-eval Laboratory Results 03/05/19 12:30 Urine Color Yellow Urine Clarity Clear Urine pH 6.5 Ur Specific Triangle 1.005 Urine Protein Negative Urine Glucose (UA) Normal Urine Ketones Negative Urine Occult Blood 25 H Urine Nitrite Negative Urine Bilirubin Negative Urine Urobilinogen Normal Ur Leukocyte Esterase Negative Urine RBC 0 SEEN Urine WBC 0 SEEN Ur Squamous Epith Cells 0 SEEN Urine Bacteria 0 SEEN Urine Mucus 0 SEEN - Medical Decision Making With his exam, and postvoid residual estimated by ultrasound that 90 cc, I reassured him that he does not have cauda equina syndrome. He could have been incontinent because of the diarrhea he states he has been having, but it does not seem to be anything neurologic at this time. He was also concerned about the possibility of a UTI, however his urinalysis is normal except for a trace amount of blood. There is no pyuria or bacteria. In screening him for prostatitis, he does not have perineal pain, pain with bowel movements, or pain deep in that area. Therefore I think it would be reasonable to treat him for urethritis. He states he has not been sexually active and has no history of GC or chlamydia, so we will place him on a week of doxycycline and advised that he follow-up. He is comfortable with that plan. He describes external hemorrhoids that temporarily prolapse when he has a bowel movement and then he is able to get them to go back in. He has intermittent bleeding from that. His exam was unremarkable. I did not perform a anoscopy. Will prescribe him Proctosol for that. ED Disposition - Plan for ED Patient: Disposition: Home or Assisted Living Diagnosis: Incontinence of bowel, Acute diarrhea, Urethritis Instructions: Treating Diarrhea, Urethritis in Men Prescriptions: Doxycycline Hyclate 1 cap PO BID #14 cap Transmission Status: Pending to [id number] Hydrocortisone/Pramoxine [Proctofoam-Hc Foam] 10 gm SC QHS 10 Days #1 foam Transmission Status: Pending to [id number] Referrals: Avni Salcedo, [Primary Care Provider] - 1 Week if not improving
[2019-03-05 12:39] LABS: Bacteria 0 SEEN /hpf (None Seen); Mucous, Urine 0 SEEN /hpf (<or=2+); Red Blood Cells-Urine 0 SEEN /hpf (0-5); Squamous Epithelial Cells - UA 0 SEEN /hpf (0-5); White Blood Cells 0 SEEN /hpf (0-5)
[2019-03-05 12:41] LABS: Color, Urine Yellow (Yellow); Glucose, Dipstick Normal (Normal); Ketone-Dipstick Negative (Negative); Leukocyte Esterase-Dipstick Negative /ul (Negative); Nitrite-Dipstick Negative (Negative); Occult Blood-Urine 25 /ul (Negative); Protein-Dipstick Negative (Negative); Specific Gravity, Urine 1.005 (1.002-1.030); Urine Bilirubin Dipstick Negative (Negative); Urine Clarity Clear (Clear); Urine Urobilinogen Normal (Normal); Urine pH 6.5 (5.0 - 8.0)
[2019-03-05 14:30] VITALS: RESP 16
[2019-03-05 14:54] VITALS: BP 151/105; PULSE 97; RESP 16; O2SAT 99
== END 2019-03-05 14:54 | disposition home or self-care (01) ==
PROVIDERS: Emergency Provider Emergency Medicine; Family Provider Student in an Organized Health Care Education/Training Program; PCP Student in an Organized Health Care Education/Training Program
DX: R15.9 Full incontinence of feces (principal); R19.7 Diarrhea, unspecified; N34.2 Other urethritis; Z87.891 Personal history of nicotine dependence; Z87.442 Personal history of urinary calculi
CPT/HCPCS: 81001; 99282

== ENCOUNTER → 2020-10-22 | Outpatient (CLI) | payer OTHER, SELFPAY | END | disposition home or self-care (01) | LOC: LABSPEC 16:40 | PROVIDERS: PCP Student in an Organized Health Care Education/Training Program; Referring Provider Otolaryngology; Visit Provider Otolaryngology | DX: J01.90 Acute sinusitis, unspecified (principal) | CPT/HCPCS: 87070; 87077; 87186; 87205 ==

== ENCOUNTER → 2020-12-01 16:49 | Outpatient (CLI) | payer OTHER, SELFPAY ==
--- NOTE | 2020-12-01 16:58 | CT_ITS ---
STUDY: CT SOFT TISSUE NECK WITH CONTRAST REASON FOR EXAM: Male, 45 years old. 2 month history of a Left NECK MASS. Patient has a history of sarcoidosis. RADIATION DOSAGE (If Supplied By Facility): CTDIvol = ( 16.35 ) mGy, DLP = ( 522.99 ) mGycm TECHNIQUE: The patient was scanned in a multi-detector CT scanner. High resolution transaxial imaging was performed following intravenous administration of IV 75mL Isovue-370. Sagittal and coronal images were reconstructed. Individualized dose optimization techniques were used for this CT. COMPARISON: None. FINDINGS: Normal bilateral parotid glands. Normal bilateral home teaching grades 7 and 8 teacher spaces. Normal bilateral parapharyngeal spaces. Normal bilateral carotid spaces. Normal bilateral sublingual and submandibular glands and spaces. Normal visualized nasopharynx. Normal retropharyngeal space. Normal perivertebral space. Normal visualized bilateral faucial tonsils. The visualized tongue, tongue base and oropharynx are normal. There are minimally enlarged lymph nodes of the neck, with preservation of normal jl architecture, consistent with a reactive lymph hyperplasia. There is no demonstrated solid or cystic mass lesion. There is no abnormal contrast enhancement. Normal epiglottis, bilateral vallecula and hypopharynx. The pre-epiglottic and paraglottic adipose spaces are normal. Normal visualized bilateral piriform sinuses, aryepiglottic folds, vocal cords, and arytenoid-cricoid articulations. Normal subglottic trachea. Normal bilateral lobes of the thyroid gland. Normal visualized pulmonary apices. Minimal mucosal thickening of the left maxillary sinus. Partial opacification of the ethmoid sinuses. Mucosal thickening of the right sphenoid sinus.. Disc space narrowing in the anterior spondylosis at the C4-C5 and C5-C6 levels. CT/Soft Tissue Neck WITH Contrast IMPRESSION: No masses seen. Sinusitis. Electronically Signed: Jb Brown MD at 19:06 EDT , Service support ,
== END ==
PROVIDERS: PCP Student in an Organized Health Care Education/Training Program; Referring Provider Otolaryngology; Visit Provider Otolaryngology
DX: R22.1 Localized swelling, mass and lump, neck (principal)
CPT/HCPCS: 70491; Q9967

== ENCOUNTER 2020-12-02 15:31 | Emergency (ER) | payer OTHER, SELFPAY ==
[2020-12-02 15:32] VITALS: BP 138/98; PULSE 130; RESP 14; TEMP 36.7; O2SAT 96; BMI 27.0
--- NOTE | 2020-12-02 16:54 | ED.DCSUM_ITS ---
History of Present Illness Chief Complaint: Back Informant: Patient Onset: Days Context: Gradual Onset Timing: Waxes and wanes Quality: Sharp Location: Lumbar Current Severity: 06/19 Worsened by: improves with: Movement Relieved by: Remaining Still Associated Symptoms: Radiation to Left Leg Narrative: Patient is a 45-year-old male with history of chronic back pain, currently in pain management with worsening back pain. States he has chronic back pain and follows with pain management. He has had a flareup this week. He was placed on a Medrol Dosepak. He states that he is on hydrocodone/ibuprofen at baseline. He also takes Flexeril. Yesterday that is improving and he had CT scan of his neck for an unrelated evaluation. When he was leaving radiology department he was walking and felt a pop in his left lower back. This morning when he woke up he had severe pain. He states he has pain in the area where he felt his pop and the pain is rating down his entire left leg. He states he has a hard time moving his leg because the pain is so severe. He has some paresthesias going down his left leg as well. He denies any incontinence. He denies any saddle anesthesia. He denies any fever or chills. He denies any other complaints at this time. Notes that if he wears his compression back brace it does seem to help his symptoms because it limits movement. He states the pain is like a spasm in his back. Prior similar symptoms: Yes, With Prior Back Pain Past Medical History - Allergies and Home Meds Allergies/Adverse Reactions: Allergies tetanus immune globulin Allergy (Verified 12/02/20 15:35) Swelling codeine Adverse Reaction (Verified 12/02/20 15:35) Nausea fluticasone propionate [From Flonase] Adverse Reaction (Verified 12/02/20 15:35) MIGRAINE Primary Care Physician: Avni Salcedo DO [Primary Care Provider] - Past Medical History: - - Low back pain, degenerative disc disease, kidney stones Surgical History: tonsillectomy, - - [place] teeth removal, radioablation of lumbar area Smoking Status: Former smoker - Family History Maternal Family History: Reports: Cancer Paternal Family History: Reports: Cancer Review of Systems General: Denies: Chills, Fever, Sweats Eyes: Denies: Visual changes - bilaterally, Diplopia ENT: Denies: Rhinorrhea, Sore throat Cardiovascular: Denies: Chest pain, Palpitations Respiratory: Denies: Dyspnea, Cough, Dyspnea on exertion Gastrointestinal: Denies: Abdominal pain, Nausea, Vomiting, Diarrhea, Melena, Hematochezia Genitourinary: Denies: Dysuria, Hematuria, Frequency Musculoskeletal: Reports: Back pain. Denies: Extremity Pain Skin: Denies: Rash, Wounds Neurological: Denies: Headache, Weakness, Numbness Physical Exam Vital Signs/Narrative: Vital Signs Temp Pulse Resp BP Pulse Ox 12/02/20 15:32 98.1 F 130 H 14 138/98 H 96 Inital Vital Signs reviewed: Yes General: Well nourished, Well developed Head: Normocephalic, Atraumatic Eyes: Perrl, EOMI ENT: Moist mucous membranes, No rhinorrhea Neck: Supple, Nontender Cardiovascular: Regular rate, Regular rhythm, No murmurs, - - 2+ bilateral DP pulses Respiratory: No distress, CTA bilaterally, Chest nontender Abdomen: Soft, Nontender, Nondistended, Normal bowel sounds. Negative for: Pulsatile mass Back: Normal Inspection, Surgical Scar, Paraspinal Tenderness - Left lower lumbar just lateral to midline, exquisitely tender with palpation, Positive SLR - Right, Positive SLR - Left. Negative for: CVA tenderness Extremeties: Nontender, No edema, - - Normal strength with plantar flexion and extension bilaterally, patient does have difficulty with leg lift on the left secondary to pain Skin: Normal color, No rash Neuro: Alert, Oriented, Normal Strength, Normal Sensation, Normal DTR, Normal Ga it Reflexes: Right Babinski. Negative for: Left Babinski Psychological: Normal affect Diagnostic/Tx/Re-eval X-Ray: LS SPine, Read by ED Physician, No Fracture Clinical Impression(s) from Imaging Studies Lumbar Spine X-Ray 12/02/20 17:50 IMPRESSION: No acute abnormalities. Moderate multilevel lumbar spondylosis and facet arthropathy. Electronically Signed: Glen Helton MD at 18:26 EDT Tel , Service support , - Medical Decision Making Patient's evaluate for acute exacerbation of low back pain. He is having significant pain and is tachycardic. I suspect this tachycardia secondary to his pain. He does not have midline tenderness but he did feel a pop yesterday. His pain is just off midline. X-rays obtained which does not show any acute fracture however he has have diffuse arthropathy. Patient has spasm-like pain as well as positive bilateral straight leg test. He is treated with oral Valium and multiple doses of IV Dilaudid. Patient does achieve better pain control and is discharged home. He will follow-up with pain management. He does not have findings consistent with cauda equina syndrome I do not think he requires an emergent MRI. Patient is counseled on signs and symptoms requiring return to the emergency room. Patient verbalizes agreement and understand this plan. Patient discharged home in stable and improved condition. Patient does mention that sometimes his heart monitor on his watch will told his heart rate is fast. It usually is associate with pain. Patient is instructed to follow-up with his primary care doctor for further evaluation of this tachycardia. At this time he is hemodynamically stable I do not think requires emergent evaluation. ED Disposition - Plan for ED Patient: Disposition: Home or Assisted Living Diagnosis: Acute exacerbation of chronic low back pain Instructions: ED Back Pain (Acute or Chronic) Referrals: Avni Salcedo DO [Primary Care Provider] - Additional Instructions: Please follow-up with pain management. Please follow-up with your primary care doctor for your episodes of high heart rate.
[2020-12-02] MEDS: diazePAM 5 MG Tablet PO (17:05)
[2020-12-02] MEDS: HYDROmorphone 1 MG/ML Syringe IV ×3 (17:05→19:45)
--- NOTE | 2020-12-02 17:50 | RAD_ITS ---
INDICATION: Injury/Pain EXAMINATION/TECHNIQUE: X-RAY - XR Spine Lumbar 2 or 3 Views COMPARISON: None. FINDINGS: VERTEBRAE: Preserved vertebral body height. No fracture. No spondylolisthesis. Preservation of the normal lumbar lordosis. Moderate multilevel facet arthropathy. DISCS: Moderate multilevel disc space narrowing and osteophytosis. INCLUDED ABDOMEN: Included bowel gas pattern is non-obstructive. RAD/Lumbar Spine 2 or 3 Views IMPRESSION: No acute abnormalities. Moderate multilevel lumbar spondylosis and facet arthropathy. Electronically Signed: Glen Helton MD at 18:26 EDT Tel , Service support ,
[2020-12-02 18:21] VITALS: BP 128/92; PULSE 114; RESP 18; O2SAT 96
[2020-12-02 20:12] VITALS: BP 128/92
== END 2020-12-02 20:12 | disposition home or self-care (01) ==
PROVIDERS: Emergency Provider Emergency Medicine; PCP Student in an Organized Health Care Education/Training Program
DX: M54.5 Low back pain (principal); G89.29 Other chronic pain; Z87.891 Personal history of nicotine dependence
CPT/HCPCS: 72100; 96374; 96376; 99283; A4216

== ENCOUNTER 2022-11-16 19:39 | Emergency (ER) | payer OTHER, SELFPAY ==
[2022-11-16 19:40] VITALS: BP 169/97; PULSE 110; RESP 16; TEMP 36.1; O2SAT 100; BMI 27.4
--- NOTE | 2022-11-16 19:50 | EDS_ITS ---
HPI History of Present Illness Chief Complaint: Upper Extremity Injury Narrative Narrative: Patient presents with right arm pain in the bicep after lifting something off the ground. He has no shoulder or elbow pain or any other injury. He presents with quite a bit of pain and he thinks he felt a tear [facility] Medical History Asthma Chronic neck and back pain Hay fever Hemorrhoids HTN (hypertension) Laceration of left ring finger Lung disease Sarcoidosis Severe headache SOB (shortness of breath) Home Medications cyclobenzaprine 10 mg tablet 10 mg PO TID 04/12/15 [History Last Taken 11/30/16] ipratropium 20 mcg-albuterol 100 mcg/actuation mist for inhalation (Combivent Respimat) 1 puff inhalation DAILY 04/12/15 [History Last Taken 11/30/16] omeprazole 20 mg capsule,delayed release 20 mg PO DAILY 04/12/15 [History Last Taken 11/30/16] fexofenadine 180 mg tablet (Tonya Allergy) 180 mg PO DAILY 11/30/16 [History Last Taken 11/29/16] atorvastatin 40 mg tablet 40 mg PO QHS 12/27/16 [History Last Taken Unknown] formoterol fumarate 20 mcg/2 mL solution for nebulization (Perforomist) 2 ml inhalation BID 03/21/21 [History Last Taken Unknown] montelukast 10 mg tablet 10 mg PO QHS 03/21/21 [History Last Taken Unknown] albuterol sulfate 2.5 mg/3 mL (0.083 %) solution for nebulization 2.5 mg inh alation 11/02/22 [History Last Taken Unknown] cholecalciferol (vitamin D3) 125 mcg (5,000 unit) capsule 5,000 unit PO 11/02/22 [History Last Taken Unknown] hydrochlorothiazide 12.5 mg capsule 12.5 mg PO 11/02/22 [History Last Taken Unknown] lisinopril 20 mg tablet ea PO 11/02/22 [History Last Taken Unknown] metformin 500 mg tablet,extended release 24 hr 500 mg PO 11/02/22 [History Last Taken Unknown] promethazine 25 mg tablet 25 mg PO 11/02/22 [History Last Taken Unknown] rizatriptan 10 mg disintegrating tablet 10 mg translingual 11/02/22 [History Last Taken Unknown] Allergy/AdvReac Type Severity Reaction Status Date / Time atomoxetine Allergy mental Verified 11/16/22 19:42 status change duloxetine Allergy unknown Verified 11/16/22 19:42 gabapentin Allergy mental Verified 11/16/22 19:42 status change tetanus immune globulin Allergy deltoid Verified 11/16/22 19:42 swelling/tender at 15yo; requested Tdap update today codeine AdvReac Nausea Verified 11/16/22 19:42 fluticasone propionate AdvReac MIGRAINE Verified 11/16/22 19:42 [From Flonase] Social History Smoking Status: Former smoker alcohol intake: never ROS ROS ED ROS Narrative Past medical history: Chronic back pain chronic shoulder pain Medications: Reviewed Social history: Noncontributory Review of systems: Musculoskeletal: Right arm pain Skin: No abrasions or lacerations Neurological: No weakness or paresthesias Hematologic: No easy bleeding or easy bruising EXAM Physical Exam Narrative Exam Narrative: Physical exam General: Patient appears uncomfortable. Head: Normocephalic, Atraumatic Neck: No C-spine tenderness Cardiovascular: Normal distal pulses Back: Nontender, Normal Inspection. Extremities: Patient has tenderness over the mid bicep region no significant bony tenderness but it is hard to assess since he is tender throughout he can AB duct the shoulder with minimal pain as long as the biceps is supported. There is no elbow pain. No pain with pronation and supination. No obvious deformities. The bicep tendon both proximally and distally seem to be intact. Skin: No abrasions, no lacerations Neurological: Normal strength and sensation Const Vital Signs: 11/16/22 19:40 Temperature 97.0 F L Temperature Source Temporal Pulse Rate 110 H Respiratory Rate 16 Blood Pressure 169/97 H Blood Pressure Mean 121 Pulse Ox 100 Oxygen Delivery Method Room Air MDM MDM MDM Narrative Medical decision making narrative: Clinically the patient does not have any tear in the bicep region although most of his pain is there he could have a strain or microscopic tear. He is requesting a referral to orthopedics I believe this is reasonable. Otherwise we will treat him outpatient, he has opiate analgesics and muscle relaxants at home. I will give him a sling. Radiography Diagnostic Testing: Right arm x-ray read by me as normal Discharge Plan Triage Chief Complaint: Upper Extremity Injury ED Provider: Rah Queen Dx/Rx/DC Orders Clinical Impression: Biceps muscle strain, Arm pain Instructions: ED Muscle Strain, Extremity Prescriptions: No Action formoterol fumarate [Perforomist] 20 mcg/2 mL solution for nebulization 2 ml inhalation BID metformin 500 mg tablet extended release 24 hr 500 mg PO hydrochlorothiazide 12.5 mg capsule 12.5 mg PO Label Comments: TAKE 1 CAPSULE BY MOUTH ONCE DAILY cholecalciferol (vitamin D3) 125 mcg (5,000 unit) capsule 5,000 unit PO Label Comments: TAKE 1 CAPSULE BY MOUTH ONCE DAILY albuterol sulfate 2.5 mg /3 mL (0.083 %) solution for nebulization 2.5 mg inhalation Label Comments: USE 1 VIAL IN NEBULIZER EVERY 4 HOURS NEEDED FOR WHEEZING FOR SHORTNESS OF BREATH. USE OVER 5-15 MINUTES promethazine 25 mg tablet 25 mg PO lisinopril 20 mg tablet PO Label Comments: TAKE 1 TABLET BY MOUTH ONCE DAILY rizatriptan 10 mg tablet,disintegrating 10 mg translingual Label Comments: TAKE 1 TABLET BY MOUTH NEEDED FOR MIGRAINE HEADACHE. MAY REPEAT IN 2 HOURS IF NEEDED. cyclobenzaprine 10 MG tablet 10 mg PO TID Label Comments: MUSCLE RELAXER omeprazole 20 MG capsule 20 mg PO DAILY Label Comments: ACID REFLUX ipratropium-albuterol [Combivent Respimat] 1 PUFF inhaler 1 puff inhalation DAILY Label Comments: ASTHMA montelukast 10 mg tablet 10 mg PO QHS Label Comments: ALLERGIES fexofenadine [Tonya Allergy] 180 MG tablet 180 mg PO DAILY Label Comments: ALLERGIES atorvastatin 40 MG tablet 40 mg PO QHS Primary Care Provider: Avni Salcedo Referrals: Avni Salcedo DO [Primary Care Provider] - Mic Cantor DO [Med Staff - Active Staff] - 3-5 Days Disposition Disposition: Home, Self Care
[2022-11-16] MEDS: HYDROmorphone 1 MG/ML Syringe SC (19:54)
--- NOTE | 2022-11-16 20:00 | RAD_ITS ---
STUDY: X-RAY - RIGHT HUMERUS REASON FOR EXAM: Male, 47 years old. Pain. Snyder ripping sound when he picked up a bed with his right arm. TECHNIQUE: 3 view(s) of the humerus. COMPARISON: None. FINDINGS: Normal visualized humerus. There is no demonstrated fracture or osseous destructive process. The shoulder and elbow appear grossly intact. There is no demonstrated soft tissue abnormality. RAD/Humerus min 2 Views IMPRESSION: Normal x-ray examination of the right humerus. Electronically Signed: Marvin Guardado DO at 20:14 EST ,
== END 2022-11-16 20:44 | disposition home or self-care (01) ==
PROVIDERS: Emergency Provider Emergency Medicine; PCP Student in an Organized Health Care Education/Training Program; Visit Provider Emergency Medicine
DX: S46.211A Strain of muscle, fascia and tendon of other parts of biceps, right arm, initial encounter (principal); I10 Essential (primary) hypertension; Z87.891 Personal history of nicotine dependence; J45.909 Unspecified asthma, uncomplicated; X50.0XXA Overexertion from strenuous movement or load, initial encounter
CPT/HCPCS: 73060; 96372; 99283

== ENCOUNTER 2025-01-02 14:30 | Outpatient (RCR) | payer MEDICAID, SELFPAY ==
--- NOTE | 2024-12-11 16:24 | HP.PTEVAL_ITS ---
Patient's Visit Information Visit Information Visit Information: JARON PANTOJA is a 49 year old M referred to Physical Therapy by JOY LOADING MACHINE OPERATOR. Pepper Sharma with a diagnosis of LBP. Date of Evaluation: 12/11/24 Physical Therapist: Calvin Bustamante, PT, ATC Visit Plan Frequency: 1x/Week Duration: 4 Weeks Plan: Trial pelvic traction next visit. Incorporate neutral spine stabilization ex's as tolerated, postural edu, B LE stretching and strengthening, and HEP Subjective Subjective: Pt reports he has a long history of LBP. Pt reports he had surgery in 2018 for a discectomy. Pt reports he had very little relief from that surgery. Pt reports he has received more MRI's which revealed he needs to have a fusion performed. Pt reports he is here today because he has to have PT before he can have another MRI or surgery in the future. Pt reports he has intermittent B LE radiculopathy. The L LE radiculopathy extends to his foot, while the R LE radiculopathy extends to his R knee region. Pt reports he is not able to work at this time secondary to LBP. Pt notes he is unable to stand or ambulate for long distances secondary to pain. Pt also notes sitting for a long period of time also increases pain. 7/10 pain while sitting here in the clinic, 10/10 at worst (when he is trying to sleep or sitting still too long) Pain LBP: Pain Intensity (Out of 10): 7 Pain Intensity Range: 10 Objective Objective: Neuro: B LE sensation is WNL to light touch. B patellar reflex= 2/3 MMT: B LE's are grossly 4-/5 throughout ROM: Pt is severely limited with extension of the lumbar spine. B side bending and flexion are moderately limited Repeated movements: RFIS increased LBP significantly. LALI peripheralized sx's into sacral region. Special tests: Pelvic traction did decrease pain mildly. Gait: Pt ambulates with an antalgic gait pattern. Pt reports increased pain from ambulating 120 feet to eval room from waiting room Balance/Special Test Scores Oswestry Low Back Score: 32 Goals Goal 1:: Decrease LBP x 50% to aid with sleep Goal Time Frame: 4-6 Weeks Goal 2:: Decrease the frequency and intensity of B LE radiculopathy x 50% to aid with ambulation Goal Time Frame: 4-6 Weeks Goal 3:: I with HEP Goal Time Frame: 4-6 Weeks Goal 4:: Pt will be able to ambulate 1000 feet without increased LBP Goal Time Frame: 4-6 Weeks Rehabilitation Potential Physical Therapy Diagnosis: Pt has LBP, B LE radiculopathy, and difficulty with sleep at this time secondary to degenerative changes in L/S Rehabilitation Potential: Good Anticipated Interventions Patient/Client Instruction: Educate patient on: Condition and Plan of Care For the Purpose of:: To improve self management Therapeutic Exercise to Include: Strength training Text: Thank you for the opportunity to evaluate your patient. For Medicare and Medicare HMO plans, please review the plan of care and approve it. It will need to be FAXED BACK to us at [phone] for Medicare purposes. For Medicare only, by signing this I certify the plan of care. Please let me know if there are questions or concerns regarding this plan of care. Physician Sig nature: Date:
--- NOTE | 2025-01-02 14:54 | HP.PTDCSUM_ITS ---
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 Pepper Sharma, with the diagnosis of LBP for a total of 4 visit(s). Discharge Date: Please see the following information for a summary of their discharge status. Subjective Subjective: I was in bed all day yesterday. My pain was severe 10/10 Pain LBP: Pain Intensity (Out of 10): 9 Overall Improvement % Improvement: 0 Objective Objective/Function: No change in LBP or LE radiculopathy at this time. Pt is able to ambulate 170 feet today until needing to stop secondary to pain. Pt is unable to tolerate ex's at this time. Goals Goal 1:: Decrease LBP x 50% to aid with sleep Goal Progress: Not Progressing Goal 2:: Decrease the frequency and intensity of B LE radiculopathy x 50% to aid with ambulation Goal Progress: Not Progressing Goal 3:: I with HEP Goal Progress: Not Progressing Goal 4:: Pt will be able to ambulate 1000 feet without increased LBP Plan Plan: Discontinue secondary to lack of progress, return to doctor for further testing. D/C Information d/c sentence: If there are questions or concerns regarding this patient's physical therapy, please feel free to call me at [phone]. Thank you for the referral of this patient. Sincerely, Calvin Bustamante, PT, ATC Balance/Gait/Functional tests Balance/Special Test Scores Oswestry Low Back Score: 36 Improvement % Improvement: 0
== END 2025-01-02 19:00 | disposition home or self-care (01) ==
LOC: PT 14:30
PROVIDERS: PCP Student in an Organized Health Care Education/Training Program; Referring Provider Clinical Nurse Specialist Adult Health; Visit Provider Clinical Nurse Specialist Adult Health
DX: M51.369 Other intervertebral disc degeneration, lumbar region without mention of lumbar back pain or lower extremity pain (principal)
CPT/HCPCS: 97012; 97161; 97530

== ENCOUNTER 2025-02-21 10:03 | Observation (INO) | payer MEDICAID, SELFPAY ==
[2025-02-21] VITALS (7 sets, daily range): BP systolic 117–135; BP diastolic 74–103; PULSE 107–115; RESP 12–18; TEMP 36.1–37; O2SAT 96–99; BMI 26.3; BMI 26.1
--- NOTE | 2025-02-21 10:57 | RAD_ITS ---
PROCEDURE: CHEST 1 VIEW (PORTABLE) 02/21/2025 REASON FOR EXAM: CHEST PAIN TECHNIQUE: Frontal view of the chest. COMPARISON: None FINDINGS: Left lower lobe subsegmental atelectasis. No definite focal consolidations. No pneumothorax or pleural effusions. Cardiac silhouette is within normal limits. RAD/Chest 1 View (Portable) IMPRESSION: Left lower lobe subsegmental atelectasis. No definite focal consolidations. Reading Location: [id number]
--- NOTE | 2025-02-21 10:57 | EKG12_ITS ---
Test Reason : CP/SOB Blood Pressure : */* mmHG Vent. Rate : 108 BPM Atrial Rate : 108 BPM P-R Int : 154 ms QRS Dur : 90 ms QT Int : 324 ms P-R-T Axes : 53 4 52 degrees QTcB Int : 434 ms Sinus tachycardia Otherwise normal ECG Confirmed by ASAD MELGOZA, WHITNEY ([id number]), editor in chief SONIA SALEH ([id number]) on 02/24/2025 8:18:26 AM Referred By: BALDO/TERRENCE Confirmed By: WHITNEY KAMARA MD
--- NOTE | 2025-02-21 11:07 | ED.VIS.CHEST ---
HPI History of Present Illness Chief Complaint: Chest Pain Informant: patient and spouse/S.O. Onset/Context/Timing Onset: Days Activity at onset: gradual Timing: Intermittent Quality: Positive for Aching, Tightness and - (Bandlike heaviness or tightness around his chest. With exertion.) Location: Right Chest and Left Chest Current Severity: Gone Maximum Severity: Moderate Worsened By: Exertion Relieved By: Rest Associated Symptoms: Positive for Diaphoresis and Dyspnea; Negative for Nausea, Vomiting, Cough, Fever, Lightheadedness, Acid Reflux or Palpitations Narrative Narrative: 49-year-old male history of hypertension, sarcoidosis. No prior cardiac history. No history of DVT or PE or risk factors. States Sunday of this week he was walking walked about half mile primarily uphill said he got very short of breath and chest pain across the chest. He states feels like a bandlike tightness. Better at rest. He is also recent traveling going up steps. Denies any history of cardiac disease. No history of DVT or PE risk factors. He has never had a heart cath in the city and had a stress test for years. Does not know his family history. Prior Similar Symptoms: No Recent Illness/Hospitalization: No CVD Risk Factors: Positive for Hypertension and Diabetes PE Risk Factors: Negative for Recent Travel/Surgery, Recent Immobilization, Prior DVT or PE, Cancer or OCP + Smoking + >/=35 TAD Risk Factors: Negative for Marfan's Syndrome [facility] Medical History Chronic neck and back pain Asthma Severe headache Hay fever Hemorrhoids Lung disease SOB (shortness of breath) Sarcoidosis HTN (hypertension) Laceration of left ring finger Home Medications ?Medication ?Instructions ?Recorded ?Last Taken ?Type cyclobenzaprine 10 mg tablet 10 mg PO TID 04/12/15 02/21/25 History ipratropium 20 mcg-albuterol 100 1 puff inhalation DAILY 04/12/15 02/20/25 History mcg/actuation mist for inhalation (Combivent Respimat) omeprazole 20 mg capsule,delayed 20 mg PO DAILY 04/12/15 02/21/25 History release fexofenadine 180 mg tablet 180 mg PO DAILY 11/30/16 02/20/25 History (Tonya Allergy) atorvastatin 40 mg tablet 40 mg PO QHS 12/27/16 02/20/25 History montelukast 10 mg tablet 10 mg PO QHS 03/21/21 02/20/25 History albuterol sulfate 2.5 mg/3 mL 2.5 mg inhalation DAILY PRN 11/02/22 02/20/25 History (0.083 %) solution for nebulization shortness of breath or wheezing cholecalciferol (vitamin D3) 125 5,000 unit PO DAILY 11/02/22 02/21/25 History mcg (5,000 unit) capsule lisinopril 20 mg tablet 20 mg PO DAILY 11/02/22 02/21/25 History promethazine 25 mg tablet 25 mg PO DAILY PRN allergy symptoms 11/02/22 02/20/25 History rizatriptan 10 mg disintegrating 10 mg translingual DAILY PRN 11/02/22 Unknown History tablet migraine headache atorvastatin 20 mg tablet 20 mg PO QHS 02/21/25 02/20/25 History hydrocodone 7.5 mg-ibuprofen 200 1 - 4 tab PO TID PRN pain 02/21/25 02/21/25 History mg tablet potassium chloride 1 tab PO DAILY 02/21/25 02/21/25 History umeclidinium 62.5 mcg-vilanterol 1 inh inhalation DAILY 02/21/25 Unknown History 25 mcg/actuation powdr for inhalation (Anoro Ellipta) Allergy/AdvReac Type Severity Reaction Status Date / Time atomoxetine Allergy mental Verified 02/21/25 10:04 status change duloxetine Allergy unknown Verified 02/21/25 10:04 gabapentin Allergy mental Verified 02/21/25 10:04 status change tetanus immune globulin Allergy deltoid Verified 02/21/25 10:04 swelling/tender at 15yo; requested Tdap update today codeine AdvReac Nausea Verified 02/21/25 10:04 fluticasone propionate (From AdvReac MIGRAINE Verified 02/21/25 10:04 Flonase) Social History Smoking Status: Former smoker alcohol intake: never ROS ROS ED ROS Narrative Exertional chest pain. Dyspnea. Diaphoresis. Constitutional Constitutional ED: Denies chills or fever(s) Eyes Eyes: Reports none ENT ENT ED: Denies ear pain Cardiovascular Cardiovascular: Reports as per HPI and chest pain Respiratory/Chest Respiratory/Chest: Reports dyspnea and dyspnea on exertion; Denies cough Gastrointestinal Gastrointestinal: Denies abdominal pain Genitourinary Genitourinary ED: Denies dysuria or hematuria Musculoskeletal Musculoskeletal: Denies arthralgias or back pain Integumentary Denies abscess Neurologic Neurologic: Denies headache(s) Psychiatric Psychiatric: Denies anxiety Endocrine Endocrinology: Denies cold intolerance Hematologic/Lymphatic Hematologic/Lymphatic: Denies easy bleeding, easy bruising or lymphadenopathy Allergic/Immunologic Allergic/Immunologic ED: Denies mouth swelling, tongue swelling or urticaria EXAM Physical Exam Narrative Exam Narrative: 49-year-old male sitting upright in bed. Vital signs are stable afebrile. Pulse ox 90% on room air no hypoxia. H EENT exam pupils round react light. Moist extremities. Neck nontender no JVD. Back nontender. Lungs clear to auscultation bilaterally. Heart regular rhythm rate about 110 no murmur. Chest wall ribs nontender. Abdomen soft nontender. No right upper quadrant tenderness. Moving all 4 extremities. 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 Dorsi plantarflexion intact. Equal symmetrical radial pulses. Calves are nontender without edema or cords. Neurologically is awake alert. He is answering questions following commands. Const Vital Signs: 02/21/25 10:04 02/21/25 10:04 02/21/25 10:53 Temperature 97.1 F L Temperature Source Temporal Pulse Rate 113 H 115 H Respiratory Rate 14 Respiratory Effort Normal Non-Labored Blood Pressure 130/86 H Blood Pressure Mean 100 Pulse Ox 98 Oxygen Delivery Method Room Air 02/21/25 10:57 02/21/25 12:04 02/21/25 13:31 Temperature Temperature Source Pulse Rate 107 H 107 H Respiratory Rate 14 13 Respiratory Effort Blood Pressure 125/85 H 117/74 Blood Pressure Mean 98 88 Pulse Ox 96 97 Oxygen Delivery Method Room Air Room Air Positive well nourished and well developed; Negative for cachectic, contractures or unkempt General Appearance ED: well developed and NAD; Negative for unkempt, cachectic, contractures or pallor Nutritional Appearance: Negative for cachectic HEENT Reports moist mucous membranes normocephalic and atraumatic Eyes PERRL and EOMs intact bilaterally Neck no lymphadenopathy, supple and no JVD Chest Wall inspection of chest normal and palpation of chest normal Resp normal respiratory effort and clear to auscultation bilaterally Cardio regular rhythm, S1 normal heart sound, S2 normal heart sound and no murmurs; Negative for regular rate Rate: tachycardic Peripheral Pulses: pulses 2+ throughout GI normal to inspection, nondistended, normoactive bowel sounds, soft to palpation, non-tender, non-distended and no masses Back/Spine no CVA tenderness and no thoracic nor lumbar tenderness Extremity normal to inspection General Extremety ED: Negative for edema or pulses abnormal General Extremity: Negative for edema or pulses abnormal Neuro oriented x3 and CN's II-XII intact bilaterally Sensorium / Orientation: awake, alert, oriented to person, oriented to place and oriented to time Motor Exam: strength 5/5 throughout Psych mental status grossly normal Appearance: Negative for unkempt Mood & Affect: anxious Skin no rashes or lesions noted and no wounds General Skin Exam: Negative for jaundice or pallor Rashes: No rashes noted Trauma: Negative for abrasion or laceration Heart Score History: Moderately Suspicious ECG: Normal Age: >45 - <65 years Risk Factors: 1 or 2 Risk Factors Troponin: </= Normal Limit Score: 3 MDM MDM MDM Narrative Medical decision making narrative: 49-year-old male with exertional chest pain and dyspnea. May be cardiac etiology versus he has a history of asthma and sarcoidosis but says it does not feel like either 1 of those 2. It is not reproducible do not appear to be musculoskeletal pain. He has had no history of DVT or PE risk factors I do not think it is that. Repeat exam patient doing well. His cardiac workup so far is negative. His second troponin was 7. Patient be admitted to the hospitalist. For cardiac testing. History & Record Review Discussion w/independent historian: Patient Additional record(s) reviewed:: Prior inpatient record, Prior outpatient record, Prior ED visit and Prior labs Lab Data Attestation: I reviewed the patient's lab results. Lab results narrative: CBC normal. White count 7. H&H 14 and 41. Platelets 210. Electrolytes show a gap 14. BUN and creatinine 25 1.47. Glucose 128. Initial troponin 9. 2-hour troponin 7. Chest x-ray negative. Labs: Laboratory Results - last 24 hr 02/21/25 02/21/25 10:28 12:28 WBC 7.2 RBC 4.67 Hgb 14.5 Hct 41.6 MCV 89.1 MCH 31.0 MCHC 34.9 RDW Std Deviation 41.1 RDW Coeff of Dione 12.6 Plt Count 210 MPV 10.0 Immature Gran % (Auto) 0.700 Neut % (Auto) 62.2 Lymph % (Auto) 24.0 [place] % (Auto) 9.6 Eos % (Auto) 2.8 Baso % (Auto) 0.7 Absolute Neuts (auto) 4.5 Absolute Lymphs (auto) 1.72 Nucleated RBC % 0 Sodium 135 Potassium 4.7 Chloride 98 Carbon Dioxide 21.9 Anion Gap 14 BUN 25 H Creatinine 1.47 H Estim Creat Clear Calc 53.65 Est GFR (MDRD) Non-Af 57 L BUN/Creatinine Ratio 17.2 Glucose 128 H Calcium 10.3 Troponin T High Sens 9 Troponin T Hi Sens 2 Hr 7 Radiography Chest X-Ray - ED: 1 View, Read by ED Physician, Normal, Heart, Lungs, Mediastinum, Bony Structures and No Acute Disease Diagnostic Testing: Clinical Impression(s) from Imaging Studies Chest X-Ray 02/21/25 10:57 IMPRESSION: Left lower lobe subsegmental atelectasis. No definite focal consolidations. Reading Location: [facility] [address] Chest x-ray, portable, single view interpreted by myself and radiologist shows no acute abnormality. Normal cardiac silhouette. Normal mediastinum. Normal lung wilcox. Rhythm Strip Rhythm Strip: Sinus Tach Rate: 108 Ectopy: None EKG Initial EKG: Attestation: I personally reviewed and interpreted this EKG as follows: Interpretation: No Acute Injury Pattern and Sinus Tachycardia Comments: Sinus tachycardia rate of 108 no acute signs of TX or ischemia. Discharge Plan Triage Chief Complaint: Chest Pain ED Provider: Eduardo Hernandez Dx/Rx/DC Orders Clinical Impression: Chest pain, exertional, History of asthma, History of sarcoidosis Prescriptions: No Action cholecalciferol (vitamin D3) 125 mcg (5,000 unit) capsule 5,000 unit PO DAILY Patient Comments: TAKE 1 CAPSULE BY MOUTH ONCE DAILY albuterol sulfate 2.5 mg /3 mL (0.083 %) solution for nebulization 2.5 mg inhalation DAILY PRN (Reason: shortness of breath or wheezing) Patient Comments: USE 1 VIAL IN NEBULIZER EVERY 4 HOURS NEEDED FOR WHEEZING FOR SHORTNESS OF BREATH. USE OVER 5-15 MINUTES promethazine 25 mg tablet 25 mg PO DAILY PRN (Reason: allergy symptoms) lisinopril 20 mg tablet 20 mg PO DAILY Patient Comments: TAKE 1 TABLET BY MOUTH ONCE DAILY rizatriptan 10 mg tablet,disintegrating 10 mg translingual DAILY PRN (Reason: migraine headache) Patient Comments: TAKE 1 TABLET BY MOUTH NEEDED FOR MIGRAINE HEADACHE. MAY REPEAT IN 2 HOURS IF NEEDED. cyclobenzaprine 10 MG tablet 10 mg PO TID Patient Comments: MUSCLE RELAXER omeprazole 20 MG capsule 20 mg PO DAILY Patient Comments: ACID REFLUX Combivent Respimat 1 PUFF inhaler 1 puff inhalation DAILY Patient Comments: ASTHMA montelukast 10 mg tablet 10 mg PO QHS Patient Comments: ALLERGIES fexofenadine [Tonya Allergy] 180 MG tablet 180 mg PO DAILY Patient Comments: ALLERGIES atorvastatin 40 MG tablet 40 mg PO QHS atorvastatin 20 mg tablet 20 mg PO QHS umeclidinium-vilanterol [Anoro Ellipta] 62.5-25 mcg/actuation blister with device 1 inh INHALATION DAILY Patient Comments: PT TAKES AT BEDTIME. potassium chloride 1 tab PO DAILY hydrocodone-ibuprofen 7.5-200 mg tablet 1 - 4 tab PO TID PRN (Reason: pain) Primary Care Provider: Avni Salcedo Referrals: Avni Salcedo DO [Primary Care Provider] - Print Language: Telugu Disposition Disposition: Acute Care [facility]
--- OUTSIDE RECORDS SUMMARY | 2025-02-21 11:13 | XMS RPT_ITS | CCD ---
Author Organization [facility] Care Team Providers Care Director Athletic Name Role Phone LEIA, INDRA E Unavailable Unavailable LEIA, INDRA E Unavailable Unavailable LEIA, INDRA Unavailable Unavailable LEIA, INDRA Unavailable Unavailable LEIA, INDRA Unavailable Unavailable ELIA, INDRA Unavailable Unavailable Suzi Granados Attending Unavailable PROVIDER, UNKNOWN Referring Unavailable Avni Salcedo Primary Care Unavailable Suzi Granados Attending Unavailable PROVIDER, UNKNOWN Referring Unavailable Avni Salcedo Primary Care Unavailable Avni Salcedo DO Primary Care Provider Avni Salcedo DO Primary Care Provider Avni Salcedo DO Primary Care Provider Avni Salcedo DO Primary Care Provider Dr. Avni Salcedo Primary Care Provider Dr. Avni Salcedo Referring Provider Dr. Alok Purvis Attending Provider Dr. Hood Vang Attending Provider Avni Salcedo DO Primary Care Provider AVNI SALCEDO Primary Care Unavailable RAMÍREZ ORTIZ Attending Unavailable JOHN CHOWDHURY Referring Unavailable Jitendra WATCHER LOOKOUT TOWER.Su TORRES Unavailable Tha WATCHER LOOKOUT TOWER.Catalina TORRES Unavailable Avni Salcedo Primary Care Unavailable Pepper Sharma Referring Unavailable Pepper Sharma Attending Unavailable AVNI SALCEDO Primary Care Unavailable AVNI SALCEDO Referring Unavailable SHAYLA ROGERS Attending Unavailable SALCEDO, AVNI L Primary Care Unavailable SHAYLA ROGERS Referring Unavailable SALCEDO, AVNI Juany Primary Care Unavailable SHAYLA ROGERS Referring Unavailable YOON MAGANA Attending Unavailable SALCEDO, AVNI Juany Primary Care Unavailable TAVNO VALENCIA Attending Unavailable SALCEDO, AVNI L Primary Care Unavailable ELMER WHITE Attending Unavailable SALCEDO, AVNI L Primary Care Unavailable SALCEDO, AVNI L Primary Care Unavailable SU HAM Attending UnavailTAVON Baez Referring Unavailable SALCEDO, AVNI L Primary Care Unavailable SALCEDO, AVNI L Primary Care Unavailable ELMER WHITE Referring Unavailable SALCEDO, AVNI L Primary Care Unavailable SU HAM Referring Unavailabl e SALCEDO, AVNI L Primary Care Unavailable SALCEDO, AVNI L Referring Unavailable SALCEDO, AVNI L Primary Care Unavailable SALCEDO, AVNI L Referring Unavailable SALCEDO, AVNI L Primary Care Unavailable PORTIA ANDUJAR Referring Unavailable ELMIRA FARRAR Attending Unavailable SALCEDO, AVNI L Primary Care Unavailable SALCEDO, AVNI L Referring Unavailable SALCEDO, AVNI L Primary Care Unavailable JOY SHEARER Attending Unavailable SALCEDO, AVNI L Primary Care Unavailable SALCEDO, AVNI L Attending Unavailable YOON MAGANA Referring Unavailable SALCEDO, AVNI L Primary Care Unavailable Allergies Allergy Classification Reported Allergen(s) Allergy Type Date of Onset Reaction(s) Facility (20 sources) beclomethasone; Translations: [BECLOMETHASONE DIPROPIONATE] Drug Allergy 7 Other: See Comments [facility] Repository (20 sources) budesonide / formoterol; Translations: [BUDESONIDE-FORMO TEROL] Drug Allergy 7 Other: See Comments [facility] Repository (20 sources) codeine; Translations: [CODEINE] Drug Allergy 5 GI Upset [facility] Repository (20 sources) fluticasone; Translations: [FLUTICASONE PROPIONATE] Drug Allergy 5 MIGRAINE [facility] Repository (2 sources) fluticasone / salmeterol; Translations: [FLUTICASONE-SALM ETEROL] Drug Allergy 7 AOF [facility] Repository (2 sources) OTHER; Translations: [OTHER] Propensity to adverse reactions (disorder) 1 AOF [facility] Repository (20 sources) TETANUS-DIPHTHERI A TOXOIDS-TD; Translations: [TETANUS-DIPHTHER IA TOXOIDS-TD] Propensity to adverse reactions to drug (disorder) 6 Swelling [facility] Repository (20 sources) DULoxetine; Translations: [DULOXETINE] Drug Allergy 0 Other: See Comments [facility] Work Phone: (20 sources) fluticasone / salmeterol; Translations: [FLUTICASONE PROPION-SALMETERO L] Drug Allergy 7 Other: See Comments [facility] Work Phone: (20 sources) gabapentin; Translations: [GABAPENTIN] Drug Allergy 8 Mental Status Change [facility] Work Phone: (20 sources) Environmental [Other] Propensity to adverse reactions 1 Unknown [facility] (20 sources) atomoxetine; Translations: [ATOMOXETINE] Drug Allergy 2 Mental Status Change [facility] Work Phone: (1 source) Tetanus immune globulin Drug Allergy 3 deltoid swelling/tende r at 15yo; requested Tdap update today [facility] (1 source) atomoxetine Drug Allergy 3 [facility] Repository (1 source) DULoxetine Drug Allergy 3 [facility] Repository (1 source) gabapentin Drug Allergy 3 [facility] Repository (1 source) Tetanus immune globulin Drug Allergy 3 [facility] Repository Medications Current Medications Medication Drug Class(es) Dates Sig (Normalized) Sig (Original) albuterol 0.83 mg/ml inhalation solution (20 sources) beta2-Adrenergic Agonist Start: 11-02-2022 Albuterol Sulfate Active 2.5 MG INHALATION November 02, 2022 12:00am Start: 09-22-2022 End: 11-05-2024 albuterol (PROVENTIL) 2.5 mg /3 mL (0.083 %) nebulizer solution Indications: Bronchitis Use 3 mL via nebulizer every 4 hours as needed for wheezing/shortness of breath. Use over 5-15minutes. 90 mL 2 10/06/2024 Active Comment on above: Use 3 mL via nebuliz er every 4 hours as needed for wheezing/shortness of breath. Use over 5-15minutes. 120 actuat albuterol 0.1 mg/actuat / ipratropium bromide 0.02 mg/actuat inhalation spray (20 sources) Anticholinergic, beta2-Adrenergic Agonist Start: 023 End: 025 take 20-100 ug by inhalation four times daily ipratropium 20 mcg-albuterol 100 mcg (COMBIVENT RESPIMAT) 20-100 mcg/actuation inhaler 1 puffs QID for asthma 4 g 5 10/06/2024 Active Start: 11-10-2021 End: 04-06-2023 take 20-100 ug by inhalation four times daily ipratropium 20 mcg-albuterol 100 mcg (COMBIVENT RESPIMAT) 20-100 mcg/actuation inhaler 1 puffs QID for asthma 4 g 1 11/10/2021 01/12/2022 Discontinued Start: 08-02-2020 End: 01-31-2024 take 3 mL by inhalation every six hours as needed for wheezing ipratropium-albuterol (DUONEB) 0.5 mg-3 mg(2.5 mg base)/3 mL nebu Indications: Mild persistent asthma without complication (HCC) Inhale 3 mL as instructed every 6 hours as needed (wheezing/shortness of breath.). 360 Each 3 01/31/2024 Active Start: 08-02-2020 End: 07-31-2021 take 20-100 ug by inhalation four times daily ipratropium 20 mcg-albuterol 100 mcg (COMBIVENT RESPIMAT) 20-100 mcg/actuation inhaler Indications: Moderate persistent asthma without complication 1 puffs QID for asthma 1 Inhaler 5 01/07/2021 07/31/2021 Discontinued Start: 04-12-2015 take 1 puff(s) by in halation once daily Ipratropium-Albuterol (Combivent Respimat) 1 PUFF inhaler Active 1 PUFF INHALATION DAILY April 11, 2015 11:00pm Comment on above: Inhale 3 mL as instr ucted every 6 hours as needed (wheezing/shortness of breath.). 1 puffs QID for asth ma amoxicillin 875 mg / clavulanate 125 mg oral tablet (8 sources) Penicillin-class Antibacterial Start: 01-08-20 End: 01-15-20 take 1 tablet by mouth twice daily amoxicillin-clavu lanate potassium (AUGMENTIN) 875-125 mg per tablet Take 1 tablet by mouth two times a day for 7 days. 14 tablet 01/07/2025 01/14/2025 Active Start: 03-23-2021 End: 04-04-2021 take 1 tablet by mouth twice daily Amoxicillin-Pot Clavulanate Discontinued 1 TABLET PO TWICE A DAY March 22, 2021 11:00pm April 04, 2021 3:04pm atorvastatin 40 mg oral tablet (20 sources) HMG-CoA Reductase Inhibitor Start: 10-04-2020 End: 02-08-2024 take 1 tablet by mouth once daily at bedtime for hyperlipidemia atorvastatin (LIPITOR) 20 mg tablet Indications: Hyperlipidemia, mixed Take 1 tablet by mouth daily at bedtime. For cholesterol. Take with 40 mg tablet to equal 60 mg daily 90 tablet 3 02/08/2024 Active Start: 09-20-2020 End: 10-01-2020 take 1.5 tablets by mouth once daily at bedtime for hyperlipidemia atorvastatin (LIPITOR) 40 mg tablet Indications: Pure hypercholesterolemia Take 1.5 tablets by mouth daily at bedtime. For cholesterol. 145 tablet 3 09/20/2020 10/01/2020 Discontinued Start: 12-27-2016 End: 02-08-2024 take 1 tablet by mouth once daily at bedtime for hyperlipidemia atorvastatin (LIPITOR) 40 mg tablet Indications: Hyperlipidemia, mixed Take 1 tablet by mouth daily at bedtime. For cholesterol. Take with 20 mg tablet to equal 60 mg daily 90 tablet 3 02/08/2024 Active Comment on above: Take 1 tablet by temo th daily at bedtime. For cholesterol. Take with 20 mg tablet to equal 60 mg daily Take 1 tablet by temo th daily at bedtime. For cholesterol. Take with 40 mg tablet to equal 60 mg daily budesonide 0.25 mg/ml inhalation suspension (20 sources) Corticosteroid Start: 07-21-2021 End: 10-06-2024 budesonide (PULMICORT) 0.5 mg/2 mL nebulizer solution Indications: Asthma, moderate persistent, well-controlled (HCC) , Chronic allergic rhinitis Use 2 mL via nebulizer once daily. 2 mL 2 10/06/2024 Active Comment on above: Use 2 mL via nebuliz er once daily. cholecalciferol 0.125 mg oral capsule (20 sources) Vitamin D Start: 11-02-2022 Cholecalciferol (Vitamin D3) Active 5000 UNIT PO November 02, 2022 12:00am Start: 08-30-2021 End: 10-16-2022 take 1 capsule by mouth once daily Cholecalciferol, Vitamin D3, 125 mcg (5,000 unit) cap Indications: Vitamin D deficiency Take 1 capsule by mouth once daily. 90 capsule 3 10/16/2022 Active Comment on above: Take 1 capsule by mo [facility] once daily. cyclobenzaprine hydrochloride 10 mg oral tablet (20 sources) Muscle Relaxant Start: 06-09-20 End: 01-09-20 take 1 tablet by mouth three times daily as needed cyclobenzaprine (FLEXERIL) 10 mg tablet Indications: Displacement of lumbar intervertebral disc without myelopathy Take 1 tablet by mouth three times a day as needed. 270 tablet 01/08/2025 Active Start: 01-22-2023 End: 06-06-2024 take 1 tablet by mouth three times daily as needed cyclobenzaprine (FLEXERIL) 10 mg tablet Indications: Displacement of lumbar intervertebral disc without myelopathy Take 1 tablet by mouth three times a day as needed. 270 tablet 02/20/2024 06/06/2024 Discontinued Start: 04-12-2015 End: 01-19-2023 take 1 tablet by mouth three times daily as needed cyclobenzaprine (FLEXERIL) 10 mg tablet Indications: Displacement of lumbar intervertebral disc without myelopathy Take 1 tablet by mouth three times daily as needed. 270 tablet 09/20/2020 12/18/2020 Discontinued Comment on above: Take 1 tablet by temo three times daily as needed. Take 1 tablet by temo three times a day as needed. famotidine 40 mg oral tablet (10 sources) Histamine-2 Receptor Antagonist Start: 04-25-2024 End: 07-24-2024 take 1 tablet by mouth every twenty-four hours as needed famotidine (PEPCID) 40 mg tablet Take 1 tablet by mouth at bedtime as needed. 30 tablet 2 04/25/2024 07/24/2024 Active ferrous sulfate (20 sources) ferrous sulfate (IRON ORAL) Take by mouth once daily. Active ferrous sulfate (IRON ORAL) Take by mouth once daily. 0 Active Comment on above: Take by mouth once d aily. fexofenadine hydrochloride 180 mg oral tablet (20 sources) Histamine-1 Receptor Antagonist Start: 3 End: 4 take 1 tablet by mouth once daily as needed fexofenadine (TONYA) 180 mg tablet Take 1 tablet by mouth once daily as needed. 90 tablet 3 01/31/2024 Active Start: 11-30-2016 End: 04-06-2023 take 1 tablet by mouth once daily as needed fexofenadine (TONYA) 180 mg tablet Take 1 tablet by mouth once daily as needed. 90 tablet 1 09/20/2020 04/03/2021 Discontinued Comment on above: Take 1 tablet by temo once daily as needed. Formoterol Fumarate (Perforomist) 20 mcg/2 mL solution for nebulization (1 source) Start: 03-21-20 21 take 1 mL by inhalation twice daily Formoterol Fumarate (Perforomist) 20 mcg/2 mL solution for nebulization Active 2 ML INHALATION TWICE A DAY March 20, 2021 11:00pm HYDROcodone bitartrate 7.5 mg / ibuprofen 200 mg oral tablet (20 sources) Opioid Agonist, Nonsteroidal Anti-inflammatory Drug Start: 01-23-20 24 take 1 tablet by mouth every eight hours as needed HYDROcodone-Ibuprof en (VICOPROFEN) 7.5-200 mg per tablet 1 tablet every 8 hours as needed for pain. 01/23/2024 Active Start: 04-12-2015 End: 12-01-2016 take 7.5-200 mg by mouth once daily Hydrocodone-Ibuprofen (Vicoprofen 7.5-200 Mg Tablet) 1 EACH tablet Discontinued 1 EACH PO DAILY April 11, 2015 11:00pm December 01, 2016 1:30pm hydrocortisone acetate 25 mg rectal suppository (20 sources) Corticosteroid Start: 08-20-2019 End: 08-15-2024 hydrocortisone (HEMORRHOIDAL HC) 25 mg suppository Indications: External hemorrhoid 1 Suppository by RECTAL route two times a day. 30 Suppository 08/15/2024 Active Comment on above: 1 Suppository by REC ELFEGO route twice daily. lisinopril 20 mg oral tablet (20 sources) Angiotensin Converting Enzyme Inhibitor Start: 07-28-2024 End: 01-08-2025 take 1 tablet by mouth once daily lisinopril (PRINIVIL) 20 mg tablet Indications: Essential hypertension, benign Take 1 tablet by mouth once daily. 90 tablet 1 01/08/2025 Active Start: 12-27-2016 End: 07-25-2024 take 1 tablet by mouth once daily lisinopril (PRINIVIL) 20 mg tablet Indications: Essential hypertension, benign Take 1 tablet by mouth once daily. 90 tablet 1 01/31/2024 07/25/2024 Discontinued Comment on above: Take 1 tablet by temo th once daily. montelukast 10 mg oral tablet (20 sources) Leukotriene Receptor Antagonist Start: 5 End: take 1 tablet by mouth once daily at bedtime montelukast (SINGULAIR) 10 mg tablet Indications: Chronic allergic rhinitis Take 1 tablet by mouth daily at bedtime. 90 tablet 01/08/2025 Active Comment on above: Take 1 tablet by temo th daily at bedtime. Nebulizer Accessories kit (20 sources) Start: Nebulizer Accessories kit Indications: Asthma, moderate persistent, well-controlled (HCC) Provide nebulizer kit accessory. 1 Each 3 11/07/2021 Active Start: 11-07-2021 Nebulizer Acce ssories kit Indications: Asthma, moderate persistent, well-controlled Provide nebulizer kit accessory. 1 Each 3 11/07/2021 Active Comment on above: Provide nebulizer ki t accessory. omeprazole 40 mg delayed release oral capsule (20 sources) Proton Pump Inhibitor Start: 10-28-19 End: 07-30-20 take 1 capsule by mouth once daily omeprazole (PRILOSEC) 40 mg capsule Indications: Gastroesophageal reflux disease without esophagitis Take 1 capsule by mouth once daily. 90 capsule 1 07/30/2023 Active Start: 08-02-2020 End: 08-01-2021 take 1 capsule by mouth once daily omeprazole (PRILOSEC) 40 mg capsule Indications: Gastroesophageal reflux disease without esophagitis Take 1 capsule by mouth once daily. 90 capsule 3 08/02/2020 08/01/2021 Discontinued Start: 04-12-2015 take 20 mg by mouth once daily Omeprazole Active 20 MG PO DAILY April 11, 2015 11:00pm Comment on above: Take 1 capsule by mo uth once daily Take 1 capsule by mo uth once daily. perflutren lipid microspheres 1.3 mL in NaCl (PF) 0.9% 10 mL injection (DEFINITY) (20 sources) Start: 10-11-19 End: 01-10-20 perflutren lipid microspheres 1.3 mL in NaCl (PF) 0.9% 10 mL injection (DEFINITY) potassium chloride 10 meq extended release oral tablet (20 sources) Start: 08-30-20 End: 08-08-20 take 1 tablet by mouth once daily at breakfast potassium chloride (K-TAB) 10 mEq tablet Indications: Hypokalemia Take 1 tablet by mouth daily with breakfast. 90 tablet 1 08/08/2023 Active Comment on above: Take 1 tablet by temo th daily with breakfast. promethazine hydrochloride 25 mg oral tablet (20 sources) Phenothiazine Start: 08-16-20 End: 01-09-20 take 1 tablet by mouth every six hours as needed promethazine (PHENERGAN) 25 mg tablet Indications: Migraine without aura and without status migrainosus, not intractable Take 1 tablet by mouth every 6 hours as needed. 90 tablet 01/08/2025 Active Start: 04-09-2023 take 1 tablet by temo th every six hours as needed promethazine (PHENERGAN) 25 mg tablet Indications: Migraine without aura and without status migrainosus, not intractable Take 1 tablet by mouth every 6 hours as needed. 90 tablet 0 04/09/2023 Active Start: 09-15-2021 End: 04-06-2023 take 1 tablet by mouth every six hours as needed promethazine (PHENERGAN) 25 mg tablet Indications: Migraine without aura and without status migrainosus, not intractable Take 1 tablet by mouth every 6 hours as needed. 90 tablet 1 09/15/2021 01/12/2022 Discontinued Start: 07-04-2021 End: 09-13-2021 take 1 tablet by mouth every six hours as needed promethazine (PHENERGAN) 25 mg tablet Indications: Migraine without aura and without status migrainosus, not intractable Take 1 tablet by mouth every 6 hours as needed. 90 tablet 1 07/04/2021 09/13/2021 Discontinued Start: 08-02-2020 End: 10-01-2020 take 1 tablet by mouth every six hours as needed promethazine (PHENERGAN) 25 mg tablet Indications: Migraine without aura and without status migrainosus, not intractable Take 1 tablet by mouth every 6 hours as needed. 90 tablet 08/02/2020 10/01/2020 Discontinued Comment on above: Take 1 tablet by temo th every 6 hours as needed. TAKE 1 TABLET BY TEMO TH EVERY 6 HOURS NEEDED rizatriptan 10 mg disintegrating oral tablet (20 sources) Serotonin-1b and Serotonin-1d Receptor Agonist Start: 04-09-20 take 1 tablet by mouth every two hours as needed for headache rizatriptan (MAXALT-EXCEPTIONAL STUDENT EDUCATION AIDE) 10 mg disintegrating tablet Indications: Migraine without aura and without status migrainosus, not intractable Take 1 tablet by mouth as needed for migraine headache (see administration instructions). May repeat in 2 hours if needed 10 tablet 1 04/09/2023 Active Start: 08-06-2019 End: 04-06-2023 take 1 tablet by mouth every two hours as needed for headache rizatriptan (MAXALT-EXCEPTIONAL STUDENT EDUCATION AIDE) 10 mg disintegrating tablet Indications: Migraine without aura and without status migrainosus, not intractable Take 1 tablet by mouth as needed for Migraine Headache (see administration instructions). May repeat in 2 hours if needed 10 tablet 1 08/06/2019 11/04/2021 Discontinued Comment on above: Take 1 tablet by temo th as needed for migraine headache (see administration instructions). May repeat in 2 hours if needed 125 ml sodium chloride 9 mg/ml prefilled syringe (20 sources) Start: 023 End: sodium chloride 0.9 % (flush) 10 mL (BD POSIFLUSH) sulfamethoxazole 800 mg / trimethoprim 160 mg oral tablet (4 sources) Dihydrofolate Reductase Inhibitor Antibacterial, Sulfonamide Antimicrobial Start: End: take 1 tablet by mouth twice daily at mealtime sulfamethoxazole-tr imethoprim (BACTRIM DS) 800-160 mg per tablet Indications: Acute non-recurrent maxillary sinusitis Take 1 tablet by mouth twice daily for 14 days. With food 28 tablet 0 06/02/2022 06/16/2022 Active Comment on above: Take 1 tablet by temo twice daily for 14 days. With food triamcinolone acetonide 1 mg/ml topical cream (20 sources) Corticosteroid Start: 024 End: triamcinolone acetonide (KENALOG) 0.1 % cream APPLY SPARINGLY TO AFFECTED AREA TWICE DAILY NEEDED FOR RASH/ITCHING 80 g 2 01/31/2024 05/02/2024 Active Start: 07-04-2021 End: 01-31-2024 triamcinolone acetonide (RITCHIE ALOG) 0.1 % cream APPLY SPARINGLY TO AFFECTED AREA TWICE DAILY NEEDED FOR RASH/ITCHING 45 g 2 07/04/2021 05/04/2023 Discontinued Start: 05-07-2019 End: 07-04-2021 triamcinolone acetonide (RITCHIE ALOG) 0.1 % cream APPLY SPARINGLY TO AFFECTED AREA TWICE DAILY NEEDED FOR RASH/ITCHING 1 Tube 1 05/07/2019 07/04/2021 Discontinued Comment on above: APPLY SPARINGLY TO A FFECTED AREA TWICE DAILY NEEDED FOR RASH/ITCHING 30 actuat umeclidinium 0.0625 mg/actuat / vilanterol 0.025 mg/actuat dry powder inhaler (8 sources) Anticholinergic, beta2-Adrenergic Agonist Start: 01-08-20 take 1 dose by inhalation once daily umeclidinium-vilan terol (ANORO ELLIPTA) 62.5-25 mcg/actuation inhaler Inhale 1 Inhalation as instructed once daily. 60 each 5 01/07/2025 Active Completed/Discontinued Medications Medication Drug Class(es) Dates Sig (Normalized) Sig (Original) 8 hr acetaminophen 650 mg extended release oral tablet (1 source) Start: 11-30-2016 End: 03-21-2021 take 1 tablet by mouth three times daily Acetaminophen (Tylenol Arthritis Pain) 650 MG tablet extended release Discontinued 650 MG PO THREE TIMES A DAY November 29, 2016 11:00pm March 21, 2021 8:34am acetaminophen 325 mg / HYDROcodone bitartrate 10 mg oral tablet (1 source) Opioid Agonist Start: 12-01-2016 End: 03-21-2021 Hydrocodone-Acetami nophen (Sylvester) 1 EACH tablet Discontinued 1 EACH PO EVERY 6 HOURS NEEDED December 01, 2016 1:30pm March 21, 2021 8:34am aluminum hydroxide 80 mg/ml / magnesium hydroxide 80 mg/ml / simethicone 8 mg/ml oral suspension (1 source) Start: 12-14-2016 End: 03-21-2021 take 1 mL by mouth every four hours as needed Alum-Mag Hydroxide-Simeth (Mylanta Ii) 30 ML suspension Discontinued 30 ML PO EVERY 4 HOURS NEEDED December 13, 2016 11:00pm March 21, 2021 8:34am arformoterol 0.0075 mg/ml inhalation solution (6 sources) beta2-Adrenergic Agonist Start: 10-09-2024 End: 01-08-2025 take 2 mL by inhalation every twelve hours arformoterol (BROVANA) 15 mcg/2 mL nebulizer solution Indications: Asthma, moderate persistent, poorly-controlled (HCC) Inhale 2 mL as instructed every 12 hours. 120 mL 11 10/09/2024 01/08/2025 Discontinued atomoxetine 10 mg oral capsule (2 sources) Norepinephrine Reuptake Inhibitor Start: 07-10-2022 take 1 capsule by mouth once daily atomoxetine (STRATTERA) 10 mg capsule Indications: Attention deficit Take 1 capsule by mouth once daily. 30 capsule 1 07/10/2022 Active Comment on above: Take 1 capsule by [facility] once daily. calcium chloride 0.0014 meq/ml / potassium chloride 0.004 meq/ml / sodium chloride 0.103 meq/ml / sodium lactate 0.028 meq/ml injectable solution (1 source) Start: 04-16-2024 End: 04-16-2024 lactated ringers iv infusion ciprofloxacin 500 mg oral tablet (1 source) Quinolone Antimicrobial Start: 01-23-2018 End: 03-21-2021 take 500 mg by mouth twice daily Ciprofloxacin Hcl Discontinued 500 MG PO TWICE A DAY January 22, 2018 11:00pm March 21, 2021 8:34am desonide 0.5 mg/ml topical cream (4 sources) Corticosteroid Start: 09-13-2016 End: 12-12-2021 desonide (TRIDESILON) 0.05 % cream Indications: Displacement of lumbar intervertebral disc without myelopathy Apply 1 application to affected area twice daily as needed. For mouth cheilitis lesion 30 g 1 09/13/2016 12/12/2021 Discontinued Comment on above: Apply 1 application to affected area twice daily as needed. For mouth cheilitis lesion diclofenac sodium 0.01 mg/mg topical gel (1 source) Nonsteroidal Anti-inflammatory Drug Start: 10-31-2019 End: 03-11-2021 apply 2 g topically four times daily as needed for pain diclofenac sodium (VOLTAREN) 1 % topical gel Indications: Ganglion of flexor tendon sheath of right middle finger Apply 2 g to affected area four times daily as needed (finger pain). 100 g 1 10/31/2019 03/11/2021 Discontinued (Changing Therapy/Dosage Form) doxycycline hyclate 100 mg oral tablet (9 sources) Tetracycline-class Drug Start: 09-18-2022 End: 09-27-2022 take 1 tablet by mouth twice daily doxycycline (VIBRA-TABS) 100 mg tablet Indications: Bronchitis Take 1 tablet by mouth twice daily for 5 days. 20 tablet 09/22/2022 09/27/2022 Start: 04-18-2022 End: 04-23-2022 take 1 tablet by mouth twice daily doxycycline monohydrate 100 mg tablet Take 1 tablet by mouth twice daily for 5 days. 10 tablet 0 04/18/2022 04/23/2022 Active Start: 03-05-2019 End: 03-21-2021 take 1 capsule by mouth twice daily Doxycycline Hyclate Discontinued 1 CAP PO TWICE A DAY March 04, 2019 11:00pm March 21, 2021 8:34am Comment on above: Take 1 tablet by temo twice daily for 5 days. Take 1 tablet by temo th twice daily for 7 days. flash glucose scanning reader (FREESTYLE ELISA 2 READER) (18 sources) Start: 01-08-2023 End: 02-08-2024 flash glucose scanning reader (FREESTYLE ELISA 2 READER) Indications: New onset type 2 diabetes mellitus (HCC) 1 Each as directed. 1 Each 0 01/08/2023 02/08/2024 Discontinued Start: 01-08-2023 flash glucose scanning reader (FREESTYLE ELISA 2 READER) Indications: New onset type 2 diabetes mellitus (HCC) 1 Each as directed. 1 Each 0 01/08/2023 Active Comment on above: 1 Each as directed. flash glucose sensor (FREESTYLE ELISA 2 SENSOR) kit (18 sources) Start: 01-08-2023 End: 02-08-2024 flash glucose sensor (FREESTYLE ELISA 2 SENSOR) kit Indications: New onset type 2 diabetes mellitus (HCC) 1 Each as directed. 6 Each 1 01/08/2023 02/08/2024 Discontinued Start: 01-08-2023 flash glucose sensor (FREESTYLE ELISA 2 SENSOR) kit Indications: New onset type 2 diabetes mellitus (HCC) 1 Each as directed. 6 Each 1 01/08/2023 Active Comment on above: 1 Each as directed. formoterol fumarate 0.01 mg/ml inhalation solution (20 sources) beta2-Adrenergic Agonist Start : 09-22 End: 02-07 take 2 mL by inhalation every twelve hours formoterol fumarate (PERFOROMIST) 20 mcg/2 mL nebu Inhale 2 mL as instructed every 12 hours. 60 Vial 5 09/22/2020 11/01/2021 Discontinued Comment on above: Inhale 2 mL as instr ucted every 12 hours. gabapentin 100 mg oral capsule (1 source) Anti-epileptic Agent Start : 12-01 End: 03-21 take 100-300 mg by mouth four times daily as needed Gabapentin (Neurontin) 100 MG capsule Discontinued 100 - 300 MG PO 4 TIMES DAILY NEEDED 60 December 01, 2016 2:35pm March 21, 2021 8:34am hydroCHLOROthiazide 12.5 mg oral capsule (20 sources) Thiazide Diuretic Start : 04-21 End: 02-07 take 1 capsule by mouth once daily hydroCHLOROthiazide 12.5 mg capsule Indications: Essential hypertension, benign Take 1 capsule by mouth once daily. 90 capsule 1 11/04/2021 04/20/2022 Discontinued Start: 11-30-2016 End: 11-02-2022 take 12.5 mg by mouth once daily Hydrochlorothiazide Discontinued 12.5 MG PO DAILY November 29, 2016 11:00pm November 02, 2022 2:11pm Comment on above: Take 1 capsule by [facility] once daily. hydrocortisone acetate 10 mg/ml / pramoxine hydrochloride 10 mg/ml rectal foam (1 source) Corticosteroid Start: 2018 End: 2018 Hydrocortisone-Pramo xine Discontinued 10 GM RC AT BEDTIME 1 March 04, 2019 11:00pm March 15, 2019 11:09pm iv contrast (will be provided with radiology test) (2 sources) Start: 2021 End: 2021 inject 1 dose intravenously once, then inject 1 dose intravenously once iv contrast (will be provided with radiology test) Indications: Localized swelling, mass and lump, neck , Neck pain without injury , Localized enlarged lymph nodes Inject 1 Each intravenously one time only for [address] Neck W IVCON No IV access, insert saline lock prior to the sedation, infusion, injection for imaging exam. Discontinue saline lock post exam. If Pt. has a central line or IVAD, may access for administration according to line specific nursing protocol. Once exam is complete flush line and de-access according to line specific nursing protocol in the CT contrast administration guidelines link. 1 Each 05/19/2022 05/19/2022 Start: 05-19-2022 End: 05-19-2022 inject 1 dose intravenously once, then inject 1 dose intravenously once iv contrast (will be provided with radiology test) Indications: Localized swelling, mass and lump, neck , Neck pain without injury , Localized enlarged lymph nodes Inject 1 Each intravenously one time only for [address] Neck W IVCON No IV access, insert saline lock prior to the sedation, infusion, injection for imaging exam. Discontinue saline lock post exam. If Pt. has a central line or IVAD, may access for administration according to line specific nursing protocol. Once exam is complete flush line and de-access according to line specific nursing protocol in the CT contrast administration guidelines link. 1 Each 0 05/19/2022 05/19/2022 Active Comment on above: Inject 1 Each intrav enously one time only for [address] Neck W IVCON No IV access, insert saline lock prior to the sedation, infusion, injection for imaging exam. Discontinue saline lock post exam. If Pt. has a central line or IVAD, may access for administration according to line specific nursing protocol. Once exam is complete flush line and de-access according to line specific nursing protocol in the CT contrast administration guidelines link. LORazepam 0.5 mg oral tablet (1 source) Benzodiazepine Start: 04-12-20 15 End: 03-21-20 take 0.5 mg by mouth twice daily as needed Lorazepam Discontinued 0.5 MG PO TWICE DAILY NEEDED April 11, 2015 11:00pm March 21, 2021 8:35am 24 hr metFORMIN hydrochloride 500 mg extended release oral tablet (20 sources) Biguanide Start: 01-09-20 End: 01-31-20 take 1 tablet by mouth twice daily at mealtime, then take 1 tablet by mouth at breakfast, then take 1 tablet by mouth at dinner metFORMIN ER (GLUCOPHAGE XR) 500 mg 24 hr tablet Indications: New onset type 2 diabetes mellitus (HCC) Take 1 tablet by mouth twice daily with meals. After 4 weeks, if tolerating well -- increase dosage to 1 tablet PO with breakfast and 1 tablet PO with dinner. 180 tablet 1 01/08/2023 01/31/2024 Discontinued Start: 11-02-2022 Metformin Acti ve 500 MG PO November 02, 2022 12:00am Start: 11-01-2022 End: 01-30-2023 take 1 tablet by mouth once daily at breakfast, then take 1 tablet by mouth at breakfast, then take 1 tablet by mouth at dinner metFORMIN ER (GLUCOPHAGE XR) 500 mg 24 hr tablet Indications: New onset type 2 diabetes mellitus (HCC) Take 1 tablet by mouth daily with breakfast. After 4 weeks, if tolerating well -- increase dosage to 1 tablet PO with breakfast and 1 tablet PO with dinner. 180 tablet 0 11/01/2022 01/08/2023 Discontinued Comment on above: Take 1 tablet by temo th daily with breakfast. After 4 weeks, if tolerating well -- increase dosage to 1 tablet PO with breakfast and 1 tablet PO with dinner. Take 1 tablet by temo th twice daily with meals. After 4 weeks, if tolerating well -- increase dosage to 1 tablet PO with breakfast and 1 tablet PO with dinner. methylPREDNISolone (2 sources) Corticosteroid Start: 08-24-2021 End: 12-11-2021 methylPREDNISolone (MEDROL, KIMMIE,) 4 mg Dose-Pack Take as directed 21 tablet 08/24/2021 12/11/2021 Discontinued (Course of therapy completed) Start: 08-24-2021 End: 12-11-2021 methylPREDNISolone (MEDROL, KIMMIE,) 4 mg Dose-Pack Take as directed 21 tablet 0 08/24/2021 12/11/2021 Discontinued (Course of therapy completed) Comment on above: Take as directed naproxen 500 mg oral tablet (1 source) Nonsteroidal Anti-inflammatory Drug Start: 01-12-20 16 End: 12-02-19 17 take 500 mg by mouth twice daily Naproxen Discontinued 500 MG PO TWICE A DAY January 11, 2016 11:00pm December 01, 2016 1:30pm nitroglycerin 0.4 mg sublingual tablet (1 source) Nitrate Vasodilator Start: 12-01-19 17 End: 03-21-20 21 Nitroglycerin Discontinued 0.4 MG SL NEEDED November 29, 2016 11:00pm March 21, 2021 8:35am phenazopyridine hydrochloride 200 mg oral tablet (1 source) Start: 01-26-20 18 End: 03-21-20 21 take 200 mg by mouth three times daily Phenazopyridine Discontinued 200 MG PO THREE TIMES A DAY January 24, 2018 11:00pm March 21, 2021 8:35am polyethylene glycol 3350 119119 mg / potassium chloride 2970 mg / sodium bicarbonate 6740 mg / sodium chloride 5860 mg / sodium sulfate 05688 mg powder for oral solution (1 source) Osmotic Laxative Start: 02-08-20 End: 02-08-20 peg 3350-Electrolytes (GOLYTELY) 236-22.74-6.74 -5.86 gram suspension Indications: Screening for colon cancer , Hyperlipidemia, mixed Take 4,000 mL by mouth one time only for 1 dose. Refer to printed prep instructions from your provider. 4000 mL 0 02/08/2024 02/08/2024 polysaccharide iron complex 150 mg oral capsule (1 source) Start: 12-02-19 17 End: 03-21-20 21 Polysaccharide Iron Complex (Ferrex 150) 150 MG capsule Discontinued 150 MG PO DAILY WITH MEALS November 30, 2016 11:00pm March 21, 2021 8:35am predniSONE 10 mg oral tablet (11 sources) Start: 09-18-19 End: 10-01-19 23 predniSONE (DELTASONE) 10 mg tablet Indications: Bronchitis Take 4 tabs daily for 3 days, then 2 tabs daily for 3 days, then 1 tab daily for 3 days with food. 21 tablet 09/22/2022 10/01/2022 Start: 04-18-2022 End: 04-23-2022 take 2 tablets by mouth once daily predniSONE (DELTASONE) 20 mg tablet Take 2 tablets by mouth once daily for 5 days. 10 tablet 0 04/18/2022 04/23/2022 Active Start: 03-16-2022 End: 03-21-2022 take 2 tablets by mouth once daily predniSONE (DELTASONE) 20 mg tablet Indications: Moderate persistent asthma with exacerbation Take 2 tablets by mouth once daily for 5 days. 10 tablet 0 03/16/2022 03/21/2022 Active Start: 12-26-2021 End: 12-31-2021 take 2 tablets by mouth once daily predniSONE (DELTASONE) 20 mg tablet Indications: Moderate persistent asthma with exacerbation Take 2 tablets by mouth once daily for 5 days. 10 tablet 0 12/26/2021 12/31/2021 Active Comment on above: Take 2 tablets by mo uth once daily for 5 days. Take 4 tablets by mo uth once daily for 5 days. Take 4 tabs daily fo r 3 days, then 2 tabs daily for 3 days, then 1 tab daily for 3 days with food. traMADol hydrochloride 50 mg oral tablet (1 source) Opioid Agonist Start: 5 End: 5 take 50 mg by mouth every four hours as needed Tramadol Discontinued 50 MG PO EVERY 4 HOURS NEEDED April 11, 2015 11:00pm April 12, 2015 6:20pm Problems Active Problems Problem Classification Problem Date Documented Da te Episodic/Chronic Abdominal pain (20 sources) Right upper quadrant pain; Translations: [Right upper quadrant pain] Onset: 6 Resolved: 9 03-05-2009 Episodic Administrative/social admission (1 source) Administrative reason for encounter; Translations: [Encounter for other administrative examinations] Episodic Anxiety disorders (20 sources) Generalized anxiety disorder; Translations: [Generalized anxiety disorder] Onset: 6 03-28-2007 Chronic Asthma (20 sources) Uncomplicated mild persistent asthma; Translations: [Mild persistent asthma, uncomplicated] Onset: 3 Resolved: 7 04-03-2017 Chronic Chronic obstructive pulmonary disease and bronchiectasis (8 sources) Bronchitis; Translations: [Bronchitis, not specified as acute or chronic] Episodic Coma; stupor; and brain damage (3 sources) Daytime somnolence; Translations: [Somnolence] Onset: 5 01-07-2025 Episodic Deficiency and other anemia (20 sources) Iron deficiency anemia due to blood loss; Translations: [Iron deficiency anemia secondary to blood loss (chronic)] Onset: 7 03-23-2017 Chronic Deficiency and other anemia (1 source) Hemoglobin low; Translations: [Anemia, unspecified] 01-23-2018 Episodic Diabetes mellitus without complication (20 sources) Type 2 diabetes mellitus; Translations: [Type 2 diabetes mellitus without complications] Onset: 3 Chronic Disorders of lipid metabolism (20 sources) Mixed hyperlipidemia; Translations: [Mixed hyperlipidemia] Onset: 6 03-28-2007 Chronic Esophageal disorders (20 sources) Gastroesophageal reflux disease; Translations: [Gastro-esophageal reflux disease without esophagitis] Onset: 9 03-05-2009 Chronic Esophageal disorders (1 source) Esophageal disorders; Translations: [Gastroesophageal reflux disease with esophagitis without hemorrhage] Onset: 9 Essential hypertension (20 sources) Benign essential hypertension; Translations: [Essential (primary) hypertension] Onset: 6 03-28-2007 Chronic Headache; including migraine (20 sources) Migraine; Translations: [Migraine, unspecified, not intractable, without status migrainosus] Onset: 8 Resolved: 8 10-22-2007 Chronic Headache; including migraine (1 source) Headache; Translations: [Severe headache] 03-21-2021 Episodic Hepatitis (20 sources) Nonalcoholic steatohepatitis; Translations: [Nonalcoholic steatohepatitis (HERRON)] Onset: 2 04-27-2012 Chronic Immunity disorders (20 sources) Pulmonary sarcoidosis; Translations: [Sarcoidosis of lung] Onset: 7 05-01-2017 Chronic Lymphadenitis (2 sources) Localized enlarged lymph nodes; Translations: [Localized enlarged lymph nodes] Episodic Mood disorders (20 sources) Depressive disorder; Translations: [Other specified depressive episodes] 03-28-2007 Chronic Nutritional deficiencies (20 sources) Vitamin D deficiency; Translations: [Vitamin D deficiency, unspecified] Onset: 1 06-01-2021 Chronic Open wounds of extremities (1 source) Laceration of left ring finger; Translations: [Laceration without foreign body of left ring finger without damage to nail, initial encounter] 03-21-2021 Episodic Other acquired deformities (2 sources) Other forms of scoliosis, lumbar region; Translations: [Other forms of scoliosis, lumbar region] Onset: 9 Chronic Other and ill-defined heart disease (20 sources) Left ventricular hypertrophy; Translations: [Cardiomegaly] Onset: 3 Chronic Other and ill-defined heart disease (1 source) Systolic dysfunction; Translations: [Other ill-defined heart diseases] 06-16-2024 Chronic Other and ill-defined heart disease (1 source) Cardiomegaly; Translations: [LVH (left ventricular hypertrophy)] Onset: 3 Chronic Other and ill-defined heart disease (1 source) Other ill-defined heart diseases; Translations: [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] Onset: 4 Chronic Other and unspecified benign neoplasm (20 sources) History of polyp of colon; Translations: [Personal history of colonic polyps] 03-05-2009 Episodic Other bone disease and musculoskeletal deformities (2 sources) Disorder of bone, unspecified; Translations: [Disorder of bone, unspecified] Onset: 9 Episodic Other connective tissue disease (2 sources) Pain in left leg; Translations: [Pain in left leg] Onset: 9 Episodic Other connective tissue disease (1 source) Pain in upper limb; Translations: [Pain in arm, unspecified] 11-16-2022 Episodic Other connective tissue disease (2 sources) Pain in left thumb; Translations: [Pain in left finger(s)] 06-16-2024 Episodic Other connective tissue disease (2 sources) Pain in left foot; Translations: [Pain in left foot] 06-16-2024 Episodic Other endocrine disorders (20 sources) Testicular hypofunction; Translations: [Testicular hypofunction] Onset: 8 04-21-2008 Chronic Other gastrointestinal disorders (20 sources) Irritable bowel syndrome; Translations: [Irritable bowel syndrome without diarrhea] 03-28-2007 Chronic Other gastrointestinal disorders (20 sources) Malabsorption - iron; Translations: [Intestinal malabsorption, unspecified] Onset: 7 02-07-2017 Chronic Other gastrointestinal disorders (2 sources) Irritable bowel syndrome characterized by constipation; Translations: [Irritable bowel syndrome with constipation] 02-08-2024 Chronic Other gastrointestinal disorders (1 source) Irritable bowel syndrome with constipation; Translations: [Irritable bowel syndrome with constipation] Onset: 7 Chronic Other gastrointestinal disorders (1 source) Incontinence of feces; Translations: [Full incontinence of feces] 03-06-2019 Episodic Other gastrointestinal disorders (1 source) Acute diarrhea; Translations: [Diarrhea, unspecified] 03-06-2019 Episodic Other gastrointestinal disorders (2 sources) Splenomegaly; Translations: [Splenomegaly, not elsewhere classified] 01-13-2025 Episodic Other hematologic conditions (1 source) H/O: Disorder; Translations: [Personal history of diseases of the blood and blood-forming organs and certain disorders involving the immune mechanism] 10-09-2024 Episodic Other liver diseases (20 sources) Disease of liver; Translations: [Liver disease, unspecified] Onset: 7 03-05-2009 Chronic Other liver diseases (1 source) ALT (SGPT) level raised; Translations: [Elevated alanine aminotransferase (ALT) level] Episodic Other lower respiratory disease (1 source) Dyspnea; Translations: [Shortness of breath] 03-21-2021 Episodic Other lower respiratory disease (1 source) Disorder of lung; Translations: [Other disorders of lung] 03-21-2021 Episodic Other lower respiratory disease (1 source) Cough; Translations: [Cough] 10-26-2021 Episodic Other lower respiratory disease (2 sources) Nodule of lung; Translations: [Solitary pulmonary nodule] 06-16-2024 Episodic Other lower respiratory disease (4 sources) Rib pain; Translations: [Pleurodynia] 01-12-2025 Episodic Other lower respiratory disease (1 source) Pleurodynia; Translations: [Rib pain on left side] Onset: Episodic Other nervous system disorders (20 sources) Carpal tunnel syndrome; Translations: [Carpal tunnel syndrome, unspecified upper limb] 03-28-2007 Chronic Other nervous system disorders (20 sources) Chronic pain; Translations: [Other chronic pain] Onset: 7 03-23-2017 Chronic Other nervous system disorders (1 source) Disturbance of attention; Translations: [Attention and concentration deficit] Chronic Other non-traumatic joint disorders (2 sources) Pain in left knee; Translations: [Pain in joint, lower leg] Episodic Other non-traumatic joint disorders (2 sources) Shoulder pain; Translations: [Pain in right shoulder] Episodic Other non-traumatic joint disorders (1 source) Pain in right shoulder; Translations: [Pain in joint, shoulder region] 11-01-2022 Episodic Other skin disorders (2 sources) Finding of neck region; Translations: [Localized swelling, mass and lump, neck] Episodic Other upper respiratory disease (20 sources) Allergic rhinitis; Translations: [Allergic rhinitis, unspecified] 10-09-2018 Chronic Other upper respiratory disease (1 source) Allergy to pollen; Translations: [Allergic rhinitis due to pollen] 03-21-2021 Chronic Other upper respiratory disease (1 source) Allergic rhinitis, unspecified; Translations: [Chronic allergic rhinitis] Onset: 9 Chronic Other upper respiratory infections (2 sources) Chronic sinusitis; Translations: [Chronic sinusitis, unspecified] Chronic Residual codes; unclassified (2 sources) Other specified postprocedural states; Translations: [Other specified postprocedural states] Onset: 9 Screening and history of mental health and substance abuse codes (2 sources) Ex-cigarette smoker; Translations: [Personal history of nicotine dependence] 10-09-2024 Episodic Spondylosis; intervertebral disc disorders; other back problems (20 sources) Other intervertebral disc displacement, lumbar region; Translations: [Other intervertebral disc displacement, lumbosacral region] Onset: 0 05-05-2010 Chronic Spondylosis; intervertebral disc disorders; other back problems (2 sources) Spinal stenosis, lumbar region without neurogenic claudication; Translations: [Spinal stenosis, lumbar region without neurogenic henry] Onset: 9 Sprains and strains (1 source) Strain of biceps brachii muscle; Translations: [Strain of muscle, fascia and tendon of other parts of biceps, unspecified arm, initial encounter] 11-16-2022 Episodic Substance-related disorders (20 sources) Continuous opioid dependence; Translations: [Opioid dependence, uncomplicated] Onset: 7 03-23-2017 Chronic Superficial injury; contusion (1 source) Abrasion, left knee, initial encounter; Translations: [Abrasion or friction burn of hip, thigh, leg, and ankle, infected] Episodic Unclassified (2 sources) Unknown / UNK(Unknown) Onset: 7 Urinary tract infections (1 source) Urethritis; Translations: [Other urethritis] 03-06-2019 Episodic Past or Other Problems Problem Classification Problem Date Documented Da te Episodic/Chronic Allergic reactions (20 sources) Solar degeneration; Translations: [Other skin changes due to chronic exposure to nonionizing radiation] Onset: 04-19-2013 04-19-2013 Episodic Calculus of urinary tract (20 sources) Kidney stone; Translations: [Calculus of kidney] Onset: 04-21-2008 04-21-2008 Episodic Deficiency and other anemia (20 sources) Anemia; Translations: [Anemia, unspecified] Onset: 12-25-2016 12-25-2016 Episodic Deficiency and other anemia (20 sources) Iron deficiency anemia; Translations: [Iron deficiency anemia, unspecified] Onset: 02-07-2017 02-07-2017 Episodic Diabetes mellitus without complication (20 sources) Impaired fasting glycemia; Translations: [Impaired fasting glucose] Onset: 06-01-2021 06-01-2021 Episodic E Codes: Natural/environment (20 sources) Exposure to radon, initial encounter; Translations: [Contact with and (suspected) exposure to other potentially hazardous substances] Onset: 10-11-2022 Episodic Fluid and electrolyte disorders (20 sources) Hypokalemia; Translations: [Hypokalemia] Onset: 08-30-2021 08-30-2021 Episodic Gastrointestinal hemorrhage (20 sources) Rectal hemorrhage; Translations: [Hemorrhage of anus and rectum] Onset: 12-25-2016 12-25-2016 Episodic Hemorrhoids (20 sources) Internal hemorrhoids; Translations: [Other hemorrhoids] Onset: 05-26-2012 05-26-2012 Episodic Malaise and fatigue (2 sources) Fatigue; Translations: [Other fatigue] Onset: 06-18-2024 06-16-2024 Episodic Neoplasms of unspecified nature or uncertain behavior (20 sources) Neoplasm of uncertain behavior of skin; Translations: [Neoplasm of uncertain behavior of skin] Onset: 04-19-2013 04-19-2013 Episodic Nutritional deficiencies (2 sources) Cobalamin deficiency; Translations: [Deficiency of other specified B group vitamins] Onset: 06-18-2024 06-16-2024 Episodic Other aftercare (20 sources) Drug therapy finding; Translations: [Other long term care social worker (current) drug therapy] Onset: 03-23-2017 03-23-2017 Episodic Other and unspecified benign neoplasm (20 sources) Dermatofibroma of right lower limb; Translations: [Other benign neoplasm of skin of right lower limb, including hip] Onset: 04-19-2013 04-19-2013 Episodic Other and unspecified benign neoplasm (20 sources) Melanocytic nevus of lower limb; Translations: [Melanocytic nevi of unspecified lower limb, including hip] Onset: 04-19-2013 04-19-2013 Episodic Other and unspecified benign neoplasm (20 sources) Dysplastic nevus of trunk; Translations: [Melanocytic nevi of trunk] Onset: 04-19-2013 04-19-2013 Episodic Other and unspecified benign neoplasm (20 sources) Compound nevus of skin ; Translations: [Melanocytic nevi of trunk] Onset: 04-19-2013 04-19-2013 Episodic Other and unspecified benign neoplasm (20 sources) Dermal cellular nevus ; Translations: [Melanocytic nevi, unspecified] Onset: 04-19-2013 04-19-2013 Episodic Other and unspecified benign neoplasm (20 sources) Melanocytic nevus of trunk; Translations: [Melanocytic nevi of trunk] Onset: 04-19-2013 04-19-2013 Episodic Other and unspecified benign neoplasm (20 sources) Dysplastic nevus of skin; Translations: [Melanocytic nevi of unspecified lower limb, including hip] Onset: 04-19-2013 04-19-2013 Episodic Other and unspecified benign neoplasm (20 sources) Benign neoplasm of colon; Translations: [Benign neoplasm of colon, unspecified] Onset: 08-20-2006 Resolved: 03-28-2007 03-28-2007 Episodic Other and unspecified benign neoplasm (1 source) Personal history of colonic polyps; Translations: [Personal history of colonic polyps] Onset: 03-05-2009 Episodic Other connective tissue disease (1 source) Pain in left finger(s); Translations: [Pain of left thumb] Onset: 06-16-2024 Episodic Other connective tissue disease (1 source) Pain in left foot; Translations: [Foot pain, left] Onset: 06-16-2024 Episodic Other gastrointestinal disorders (20 sources) Diarrhea; Translations: [Diarrhea, unspecified] Onset: 05-27-2020 05-27-2020 Episodic Other gastrointestinal disorders (2 sources) Diarrhea, unspecified; Translations: [Diarrhea, unspecified type] Onset: 05-27-2020 Episodic Other lower respiratory disease (20 sources) Multiple nodules of lung; Translations: [Other nonspecific abnormal finding of lung field] Onset: 03-23-2017 05-01-2017 Episodic Other lower respiratory disease (20 sources) Wheezing; Translations: [Wheezing] Onset: 10-11-2022 Episodic Other lower respiratory disease (1 source) Solitary pulmonary nodule; Translations: [Pulmonary nodule] Onset: 06-23-2024 Episodic Other screening for suspected conditions (not mental disorders or infectious disease) (10 sources) Abnormal electromyogram [EMG]; Translations: [Patient encounter status] Onset: 09-30-2018 01-31-2024 Episodic Other skin disorders (20 sources) Sebaceous cyst of skin; Translations: [Sebaceous cyst] Onset: 08-30-2021 08-30-2021 Episodic Other upper respiratory infections (20 sources) Acute maxillary sinusitis; Translations: [Acute maxillary sinusitis, unspecified] Onset: 06-01-2021 06-01-2021 Episodic Residual codes; unclassified (20 sources) Tobacco user; Translations: [Tobacco use] Onset: 09-22-2013 09-22-2013 Episodic Residual codes; unclassified (1 source) Tobacco use; Translations: [Tobacco abuse] Onset: 09-22-2013 Episodic Spondylosis; intervertebral disc disorders; other back problems (20 sources) Low back pain; Translations: [Low back pain] Onset: 03-24-2014 03-24-2014 Episodic Unclassified (1 source) Recheck Onset: 08-09-2017 Results Test Name Value Interpretation Reference Range Facility [facility] 02-04-2025 [facility] Telephone (FAMPWS) JAKE CHAIREZ ([id number]) 1975 M Date Time Provider Department 02/04/25 ELMER WHITE During your visit today, we recorded the following information about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 [G56.00] DEPRESSION [F32.89] PERS HX COLONIC POLYPS [Z86.0100] COMMON MIGRAINE [346.1] 10/22/2007 NON-ALCOHOLIC STEATOHEPATITIS [K76.9] 07/16/2007 MIGRAINE NOS W/O MENTN INTRACTABLE [G43.909] 10/22/2007 CALCULUS OF KIDNEY [N20.0] 04/21/2008 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 (more content not included)... Normal [facility] Robert 08-18-2024 CNPN Telephone (FAMPWS) JAKE CHAIREZ ([id number]) 1975 M Date Time Provider Department 08/18/24 AVNI SALCEDO During your visit today, we recorded the following information about you: Shayla Nye MA 08/18/2024 11:25 AM Signed Completed PA through covermymeds and comes back not covered. Patient was notified and aware will need to pay out pocket or get otc cream and insert rectally. Shayla Nye MA Allergies As of Date: 08/18/2024 Noted Allergy Reaction ADVAIR DISKUS (FLUTICASONE PROPIO*05/18/2017 14 - Other: See Comments Comments: Thrush CODEINE 07/31/2005 8 - GI Upset CYMBALTA (DULOXETINE) 04/21/2020 14 - Other: See Comments Comments: Tachycardia FLONASE (FLUTICASONE PROPIONATE) 07/31/2005 Comments: MIGRAINE GABAPENTIN 10/24/2017 1 - Mental Status Change Comments: Suicidal ideations QVAR (BECLOMETHASONE DIPROPIONATE)05/18/2017 14 - Other: See Comments Comments: Thrush STRATTERA (ATOMOXETINE) 07/26/2022 1 - Mental Status Change Comments: Mood changes, suicidal thoughts SYMBICORT (BUDESONIDE-FORMOTEROL) 05/18/2017 14 - Other: See Comments Comments: Thrush TETANUS-DIPHTHERIA TOXOIDS-TD 06/22/2006 7 - Swelling Comments: swelling at site and numbness in arm Date Reviewed: 06/16/2024 Reviewed by: Ana Almanza LPN - Fully Assessed Reason for Visit: Insurance Authorization [[id number]] Cmt: Hydrocortisone suppository Prescriptions as of 08/18/2024 - hydrocortisone (HEMORRHOIDAL HC) 25 mg suppository 1 Suppository by RECTAL route two times a day. - promethazine (PHENERGAN) 25 mg tablet Take 1 tablet by mouth every 6 hours as needed. - montelukast (SINGULAIR) 10 mg tablet TAKE 1 TABLET BY MOUTH AT BEDTIME - lisinopril (PRINIVIL) 20 mg tablet Take 1 tablet by mouth once daily. - cyclobenzaprine (FLEXERIL) 10 mg tablet Take 1 tablet by mouth three times a day as needed. - atorvastatin (LIPITOR) 20 mg tablet Take 1 tablet by mouth daily at bedtime. For cholesterol. Take with 40 mg tablet to equal 60 mg daily - atorvastatin (LIPITOR) 40 mg tablet Take 1 tablet by mouth daily at bedtime. For cholesterol. Take with 20 mg tablet to equal 60 mg daily - HYDROcodone-Ibuprofen (VICOPROFEN) 7.5-200 mg per tablet 1 tablet every 8 hours as needed for pain. - fexofenadine (TONYA) 180 mg tablet Take 1 tablet by mouth once daily as needed. - ipratropium-albuterol (DUONEB) 0.5 mg-3 mg(2.5 mg base)/3 mL nebu Inhale 3 mL as instructed every 6 hours as needed (wheezing/shortness of breath.). - ipratropium 20 mcg-albuterol 100 mcg (COMBIVENT RESPIMAT) 20-100 mcg/actuation inhaler 1 puffs QID for asthma - potassium chloride (K-TAB) 10 mEq tablet Take 1 tablet by mouth daily with breakfast. - omeprazole (PRILOSEC) 40 mg capsule Take 1 capsule by mouth once daily. - rizatriptan (MAXALT-EXCEPTIONAL STUDENT EDUCATION AIDE) 10 mg disintegrating tablet Take 1 tablet by mouth as needed for migraine headache (see administration instructions). May repeat in 2 hours if needed - Cholecalciferol, Vitamin D3, 125 mcg (5,000 unit) cap Take 1 capsule by mouth once daily. - budesonide (PULMICORT) 0.5 mg/2 mL nebulizer solution Use 2 mL via nebulizer once daily. - albuterol (PROVENTIL) 2.5 mg /3 mL (0.083 %) nebulizer solution Use 3 mL via nebulizer every 4 hours as needed for wheezing/shortness of breath. Use over 5-15minutes. - Nebulizer Accessories kit Provide nebulizer kit accessory. - ferrous sulfate (IRON ORAL) Take by mouth once daily. Problem List As Of Date 08/18/2024 Noted Resolved ESOPHAGEAL REFLUX [K21.9] Chronic allergic rhinitis [J30.9] ASTHMA UNSPEC W STATUS ASTH [J45.902] 03/28/2007 BENIGN HYPERTENSION [I10] 10/14/2005 MIXED HYPERLIPIDEMIA [E78.2] 10/14/2005 GENERALIZED ANXIETY DIS [F41.1] 06/22/2006 ABDOMINAL PAIN( Right Upper Quadrant) [R10.11] 07/17/2006 03/05/2009 BENIGN NEOPLASM LG BOWEL [D12.6] 08/20/2006 03/28/2007 Displacement of Lumbar Intervertebral Disc with* IBS [K58.9] Mild persistent asthma without complication [J4* CARPAL TUNNEL SYNDROME [G56.00] DEPRESSION [F32.89] PERS HX COLONIC POLYPS [Z86.0100] COMMON MIGRAINE [346.1] 10/22/2007 NON-ALCOHOLIC STEATOHEPATITIS [K76.9] 07/16/2007 MIGRAINE NOS W/O MENTN INTRACTABLE [G43.909] 10/22/2007 CALCULUS OF KIDNEY [N20.0] 04/21/2008 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 Normal [facility] CBC panel Auto (Bld)on 08-15 Erythrocyte distribution width (RBC) [Ratio] 11.9 % Normal 11.5-15.0 [facility] Comment on above: Order Comment: Speci men Type: BLOOD SPECIMENOrdering Facility: [facility] Address: [address] [place] [address] Performed By: #### 5 8410-2 ####[facility] LABCLIA [id number] [facility] [id number] [address] [place] Hematocrit (Bld) [Volume fraction] 39.8 % Normal 39.0-51.0 [facility] Comment on above: Order Comment: Speci men Type: BLOOD SPECIMENOrdering Facility: [facility] Address: [address] [place] [address] Performed By: #### 5 8410-2 ####[facility] LABIA [id number] [place] [address] [place] Hemoglobin (Bld) [Mass/Vol] 13.4 g/dL Normal 13.0-17.0 [facility] Comment on above: Order Comment: Speci men Type: BLOOD SPECIMENOrdering Facility: [facility] Address: [address] [place] [address] Performed By: #### 5 8410-2 ####[facility] [id number] [place] [address] [place] MCH (RBC) [Entitic mass] 30.5 pg Normal 26.0-34.0 [facility] Comment on above: Order Comment: Speci men Type: BLOOD SPECIMENOrdering Facility: [facility] Address: [address] [place] [address] Performed By: #### 5 8410-2 ####[facility] [id number] [place] [address] [place] MCHC (RBC) [Mass/Vol] 33.7 g/dL Normal 30.5-36.0 [facility] Comment on above: Order Comment: Speci men Type: BLOOD SPECIMENOrdering Facility: [facility] Address: [address] [place] [address] Performed By: #### 5 8410-2 ####[facility] LAB[facility] [id number] [place] [address] [place] MCV (RBC) [Entitic vol] 90.5 fL Normal 80.0-100.0 [facility] Comment on above: Order Comment: Speci men Type: BLOOD SPECIMENOrdering Facility: [facility] Address: [address] [place] [address] Performed By: #### 5 8410-2 ####[facility] LABCLIA [id number] [place] [address] [place] Nucleated RBC (Bld) [#/Vol] 10*3/uL Normal <0.01 [facility] Comment on above: Order Comment: Speci men Type: BLOOD SPECIMENOrdering Facility: [facility] Address: [address] [place] [address] Performed By: #### 5 8410-2 ####[facility] LABIA [id number] [place] [address] [place] Platelet mean volume (Bld) [Entitic vol] 9.8 fL Normal 9.0-12.7 [facility] Comment on above: Order Comment: Speci men Type: BLOOD SPECIMENOrdering Facility: [facility] Address: [address] [place] [address] Performed By: #### 5 8410-2 ####[facility] LABIA [id number] [place] [address] [place] Platelets (Bld) [#/Vol] 247 10*3/uL Normal 150-400 [facility] Comment on above: Order Comment: Speci men Type: BLOOD SPECIMENOrdering Facility: [facility] Address: [address] [place] [address] Performed By: #### 5 8410-2 ####[facility] LABIA [id number] [place] [address] [place] RBC (Bld) [#/Vol] 4.40 10*6/uL Normal 4.20-6.00 [facility] Comment on above: Order Comment: Speci men Type: BLOOD SPECIMENOrdering Facility: [facility] Address: [address] [place] [address] Performed By: #### 5 8410-2 ####[facility] LABIA [id number] [place] [address] [place] WBC (Bld) [#/Vol] 6.83 10*3/uL Normal 3.70-11.00 [facility] Comment on above: Order Comment: Speci men Type: BLOOD SPECIMENOrdering Facility: [facility] Address: [address] [place] [address] Performed By: #### 5 8410-2 ####[facility] LABCLIA [id number] [place] [address] [place] Comprehensive metabolic 2000 panelon 08-15-2024 Albumin [Mass/Vol] 4.6 g/dL Normal 3.9-4.9 [facility] Comment on above: Order Comment: Speci men Type: BLOOD SPECIMEN Ordering Facility: [facility] Address: [address] [place] [address] Performed By: #### 5 5454-3 #### [facility] LAB CLIA [id number] [address] [place] [address] [place] ALP [Catalytic activity/Vol] 127 U/L High 38-113 [facility] Comment on above: Order Comment: Speci men Type: BLOOD SPECIMEN Ordering Facility: [facility] Address: [address] [place] [address] Performed By: #### 5 5454-3 #### [facility] CLIA [id number] [address] [place] [address] [place] ALT [Catalytic activity/Vol] 57 U/L High 10-54 [facility] Comment on above: Order Comment: Speci men Type: BLOOD SPECIMEN Ordering Facility: [facility] Address: [address] [place] [address] Performed By: #### 5 5454-3 #### [facility] CLIA [id number] [address] [place] [address] [place] Anion gap [Moles/Vol] 14 mmol/L Normal 8-15 [facility] Comment on above: Order Comment: Speci men Type: BLOOD SPECIMEN Ordering Facility: [facility] Address: [address] [place] [address] Performed By: #### 5 5454-3 #### [facility] CLIA [id number] [address] [place] [address] [place] AST [Catalytic activity/Vol] 28 U/L Normal 14-40 [facility] Comment on above: Order Comment: Speci men Type: BLOOD SPECIMEN Ordering Facility: [facility] Address: [address] [place] [address] Performed By: #### 5 5454-3 #### [facility] CLIA [id number] [address] [place] [address] [place] Bilirubin [Mass/Vol] 0.4 mg/dL Normal 0.2-1.3 [facility] Comment on above: Order Comment: Speci men Type: BLOOD SPECIMEN Ordering Facility: [facility] Address: [address] [place] [address] Performed By: #### 5 5454-3 #### [facility] CLIA [id number] [address] [place] [address] [place] Calcium [Mass/Vol] 10.2 mg/dL Normal 8.5-10.2 [facility] Comment on above: Order Comment: Speci men Type: BLOOD SPECIMEN Ordering Facility: [facility] Address: [address] [place] [address] Performed By: #### 5 5454-3 #### [facility] CLIA [id number] [address] [place] [address] [place] Chloride [Moles/Vol] 101 mmol/L Normal 98-107 [facility] Comment on above: Order Comment: Speci men Type: BLOOD SPECIMEN Ordering Facility: [facility] Address: [address] [place] [address] Performed By: #### 5 5454-3 #### [facility] CLIA [id number] [address] [place] [address] [place] CO2 [Moles/Vol] 25 mmol/L Normal 22-30 [facility] Comment on above: Order Comment: Speci men Type: BLOOD SPECIMEN Ordering Facility: [facility] Address: [address] [place] [address] Performed By: #### 5 5454-3 #### [facility] CLIA [id number] [address] [place] [address] [place] Creatinine [Mass/Vol] 0.90 mg/dL Normal 0.73-1.22 [facility] Comment on above: Order Comment: Speci men Type: BLOOD SPECIMEN Ordering Facility: [facility] Address: [address] [place] [address] Performed By: #### 5 5454-3 #### [facility] CLIA [id number] [address] [place] [address] [place] [facility] Creatinine and Glomerular filtration rate.predicted panel (S/P/Bld) 103 mL/min/1.73m??? Normal >=60 [facility] Comment on above: Order Comment: Speci men Type: BLOOD SPECIMEN Ordering Facility: [facility] Address: [address] [place] [address] Result Comment: Darling mated Glomerular Filtration Rate (eGFR) is calculated using the 2020 CKD-EPI creatinine equation. This equation utilizes serum creatinine, sex, and age as parameters. The creatinine assay has traceable calibration to isotope dilution-mass spectrometry. Refer to KDIGO guidelines for clinical interpretation. In patients with unstable renal function, e.g. those with acute kidney injury, the eGFR may not accurately reflect actual GFR. Performed By: #### 5 5454-3 #### [facility] CLIA [id number] [address] [place] [address] [place] Glucose [Mass/Vol] 138 mg/dL High 74-99 [facility] Comment on above: Order Comment: Speci men Type: BLOOD SPECIMEN Ordering Facility: [facility] Address: [address] [place] [address] Result Comment: The [place] Diabetes Association (ADA) provides guidance for cutoff values for fasting glucose and random glucose. The ADA defines fasting as no caloric intake for at least 8 hours. Fasting plasma glucose results between 100 to 125 [...] Standards of Medical Care in Diabetes 2016, [place] [employer]. Diabetes Care. 2016.39(Suppl 1). Performed By: #### 5 5454-3 #### [facility] CLIA [id number] [address] [place] [address] [place] Potassium [Moles/Vol] 4.0 mmol/L Normal 3.7-5.1 [facility] Comment on above: Order Comment: Speci men Type: BLOOD SPECIMEN Ordering Facility: [facility] Address: [address] [place] [address] Performed By: #### 5 5454-3 #### [facility] CLIA [id number] [address] [place] [address] [place] Protein [Mass/Vol] 7.0 g/dL Normal 6.3-8.0 [facility] Comment on above: Order Comment: Speci men Type: BLOOD SPECIMEN Ordering Facility: [facility] Address: [address] [place] [address] Performed By: #### 5 5454-3 #### [facility] CLIA [id number] [address] [place] [address] [place] Sodium [Moles/Vol] 140 mmol/L Normal 136-144 [facility] Comment on above: Order Comment: Speci men Type: BLOOD SPECIMEN Ordering Facility: [facility] Address: [address] [place] [address] Performed By: #### 5 5454-3 #### [facility] CLIA [id number] [address] [place], [place] [id number] [place] [place] Urea nitrogen [Mass/Vol] 13 mg/dL Normal 9-24 [facility] Comment on above: Order Comment: Speci men Type: BLOOD SPECIMEN Ordering Facility: [facility] Address: [address] [place] [address] Performed By: #### 5 5454-3 #### [facility] CLIA [id number] [address] [place], [place] [id number] [place] [facility] Ferritin [Mass/Vol] 77.4 ng/mL Normal 30.3-565.7 [facility] Comment on above: Order Comment: Speci men Type: BLOOD SPECIMEN Ordering Facility: [facility] Address: [address] [place] [address] Performed By: #### 5 5454-3 #### [facility] CLIA [id number] [address] [place] [address] [place] Iron and Iron binding capaci panelon 08-15-2024 Iron [Mass/Vol] 77 ug/dL Normal 41-186 [facility] Comment on above: Order Comment: Speci men Type: BLOOD SPECIMEN Ordering Facility: [facility] Address: [address] [place] [address] Performed By: #### 5 5454-3 #### [facility] CLIA [id number] [address] [place], [place] [address] [place] Iron binding capacity [Mass/Vol] 369 ug/dL Normal 232-386 [facility] Comment on above: Order Comment: Speci men Type: BLOOD SPECIMEN Ordering Facility: [facility] Address: [address] [place] [address] Performed By: #### 5 5454-3 #### [facility] CLIA [id number] [address] [place] [address] [place] Iron/TIBC [Molar ratio] 20.9 % Normal 15.0-57.0 [facility] Comment on above: Order Comment: Speci men Type: BLOOD SPECIMEN Ordering Facility: [facility] Address: [address] [place] [address] Performed By: #### 5 5454-3 #### [facility] CLIA [id number] [address] [place] [address] OF [facility] CNPNon 07-02-2024 CNPN Telephone (FAMPWS) JAKE CHAIREZ ([id number]) 1975 M Date Time Provider Department 07/02/24 [facility] During your visit today, we recorded the following information about you: Avni Salcedo DO 07/02/2024 10:01 PM Signed Please inform patient that overall his echo is stable, no concerns DO Sandrine Bell Amanda, RN 07/03/2024 11:48 AM Signed Pt called and is notified of providers results. Pt voices understanding. Agata Deluca RN Allergies As of Date: 07/02/2024 Noted Allergy Reaction ADVAIR DISKUS (FLUTICASONE PROPIO*05/18/2017 14 - Other: See Comments Comments: Thrush CODEINE 07/31/2005 8 - GI Upset CYMBALTA (DULOXETINE) 04/21/2020 14 - Other: See Comments Comments: Tachycardia FLONASE (FLUTICASONE PROPIONATE) 07/31/2005 Comments: MIGRAINE GABAPENTIN 10/24/2017 1 - Mental Status Change Comments: Suicidal ideations QVAR (BECLOMETHASONE DIPROPIONATE)05/18/2017 14 - Other: See Comments Comments: Thrush STRATTERA (ATOMOXETINE) 07/26/2022 1 - Mental Status Change Comments: Mood changes, suicidal thoughts SYMBICORT (BUDESONIDE-FORMOTEROL) 05/18/2017 14 - Other: See Comments Comments: Thrush TETANUS-DIPHTHERIA TOXOIDS-TD 06/22/2006 7 - Swelling Comments: swelling at site and numbness in arm Date Reviewed: 06/16/2024 Reviewed by: Ana Almanza LPN - Fully Assessed Reason for Visit: Results [95] Prescriptions as of 07/03/2024 - cyclobenzaprine (FLEXERIL) 10 mg tablet Take 1 tablet by mouth three times a day as needed. - promethazine (PHENERGAN) 25 mg tablet Take 1 tablet by mouth every 6 hours as needed. - famotidine (PEPCID) 40 mg tablet Take 1 tablet by mouth at bedtime as needed. - atorvastatin (LIPITOR) 20 mg tablet Take 1 tablet by mouth daily at bedtime. For cholesterol. Take with 40 mg tablet to equal 60 mg daily - atorvastatin (LIPITOR) 40 mg tablet Take 1 tablet by mouth daily at bedtime. For cholesterol. Take with 20 mg tablet to equal 60 mg daily - HYDROcodone-Ibuprofen (VICOPROFEN) 7.5-200 mg per tablet 1 tablet every 8 hours as needed for pain. - fexofenadine (TONYA) 180 mg tablet Take 1 tablet by mouth once daily as needed. - lisinopril (PRINIVIL) 20 mg tablet Take 1 tablet by mouth once daily. - ipratropium-albuterol (DUONEB) 0.5 mg-3 mg(2.5 mg base)/3 mL nebu Inhale 3 mL as instructed every 6 hours as needed (wheezing/shortness of breath.). - ipratropium 20 mcg-albuterol 100 mcg (COMBIVENT RESPIMAT) 20-100 mcg/actuation inhaler 1 puffs QID for asthma - montelukast (SINGULAIR) 10 mg tablet Take 1 tablet by mouth daily at bedtime. - potassium chloride (K-TAB) 10 mEq tablet Take 1 tablet by mouth daily with breakfast. - omeprazole (PRILOSEC) 40 mg capsule Take 1 capsule by mouth once daily. - hydrocortisone (HEMORRHOIDAL HC) 25 mg suppository 1 Suppository by RECTAL route twice daily. - rizatriptan (MAXALT-EXCEPTIONAL STUDENT EDUCATION AIDE) 10 mg disintegrating tablet Take 1 tablet by mouth as needed for migraine headache (see administration instructions). May repeat in 2 hours if needed - Cholecalciferol, Vitamin D3, 125 mcg (5,000 unit) cap Take 1 capsule by mouth once daily. - budesonide (PULMICORT) 0.5 mg/2 mL nebulizer solution Use 2 mL via nebulizer once daily. - albuterol (PROVENTIL) 2.5 mg /3 mL (0.083 %) nebulizer solution Use 3 mL via nebulizer every 4 hours as needed for wheezing/shortness of breath. Use over 5-15minutes. - Nebulizer Accessories kit Provide nebulizer kit accessory. - ferrous sulfate (IRON ORAL) Take by mouth once daily. Problem List As Of Date 07/02/2024 Noted Resolved ESOPHAGEAL REFLUX [K21.9] Chronic allergic rhinitis [J30.9] ASTHMA UNSPEC W STATUS ASTH [J45.902] 03/28/2007 BENIGN HYPERTENSION [I10] 10/14/2005 MIXED HYPERLIPIDEMIA [E78.2] 10/14/2005 GENERALIZED ANXIETY DIS [F41.1] 06/22/2006 ABDOMINAL PAIN( Right Upper Quadrant) [R10.11] 07/17/2006 03/05/2009 BENIGN NEOPLASM LG BOWEL [D12.6] 08/20/2006 03/28/2007 Displacement of Lumbar Intervertebral Disc with* IBS [K58.9] Mild persistent asthma without complication [J4* CARPAL TUNNEL SYNDROME [G56.00] DEPRESSION [F32.89] PERS HX COLONIC POLYPS [Z86.0100] COMMON MIGRAINE [346.1] 10/22/2007 NON-ALCOHOLIC STEATOHEPATITIS [K76.9] 07/16/2007 MIGRAINE NOS W/O MENTN INTRACTABLE [G43.909] 10/22/2007 CALCULUS OF KIDNEY [N20.0] 04/21/2008 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 Normal [facility] ([id number]) 1975 M Date Time Provider Department 06/26/24 [facility] During your visit today, we recorded the following information about you: Avni Salcedo DO 06/26/2024 10:18 AM Signed Please inform patient that his recent labs show that his LFTs are slightly high and potassium is slightly low. Need to avoid alcohol as well as make sure taking in <3000 mg a day of tylenol. 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 Pt voices understanding. Allergies As of Date: 06/26/2024 Noted Allergy Reaction ADVAIR DISKUS (FLUTICASONE PROPIO*05/18/2017 14 - Other: See Comments Comments: Simran CODEINE 07/31/2005 8 - GI Upset CYMBALTA (DULOXETINE) 04/21/2020 14 - Other: See Comments Comments: Tachycardia FLONASE (FLUTICASONE PROPIONATE) 07/31/2005 Comments: MIGRAINE GABAPENTIN 10/24/2017 1 - Mental Status Change Comments: Suicidal ideations QVAR (BECLOMETHASONE DIPROPIONATE)05/18/2017 14 - Other: See Comments Comments: Simran STRATTERA (ATOMOXETINE) 07/26/2022 1 - Mental Status Change Comments: Mood changes, suicidal thoughts SYMBICORT (BUDESONIDE-FORMOTEROL) 05/18/2017 14 - Other: See Comments Comments: Thrush TETANUS-DIPHTHERIA TOXOIDS-TD 06/22/2006 7 - Swelling Comments: swelling at site and numbness in arm Date Reviewed: 06/16/2024 Reviewed by: Ana Almanza LPN - Fully Assessed Primary Visit Diagnosis:Elevated LFTs [R79.89] Other Visit Diagnosis:Hypokalemia [E87.6] Order(s):COMPREHENSIVE METABOLIC PANEL [SQCMP] Order #: [id number] FUTURE Prescriptions as of 06/26/2024 - cyclobenzaprine (FLEXERIL) 10 mg tablet Take 1 tablet by mouth three times a day as needed. - promethazine (PHENERGAN) 25 mg tablet Take 1 tablet by mouth every 6 hours as needed. - famotidine (PEPCID) 40 mg tablet Take 1 tablet by mouth at bedtime as needed. - atorvastatin (LIPITOR) 20 mg tablet Take 1 tablet by mouth daily at bedtime. For cholesterol. Take with 40 mg tablet to equal 60 mg daily - atorvastatin (LIPITOR) 40 mg tablet Take 1 tablet by mouth daily at bedtime. For cholesterol. Take with 20 mg tablet to equal 60 mg daily - HYDROcodone-Ibuprofen (VICOPROFEN) 7.5-200 mg per tablet 1 tablet every 8 hours as needed for pain. - fexofenadine (TONYA) 180 mg tablet Take 1 tablet by mouth once daily as needed. - lisinopril (PRINIVIL) 20 mg tablet Take 1 tablet by mouth once daily. - ipratropium-albuterol (DUONEB) 0.5 mg-3 mg(2.5 mg base)/3 mL nebu Inhale 3 mL as instructed every 6 hours as needed (wheezing/shortness of breath.). - ipratropium 20 mcg-albuterol 100 mcg (COMBIVENT RESPIMAT) 20-100 mcg/actuation inhaler 1 puffs QID for asthma - montelukast (SINGULAIR) 10 mg tablet Take 1 tablet by mouth daily at bedtime. - potassium chloride (K-TAB) 10 mEq tablet Take 1 tablet by mouth daily with breakfast. - omeprazole (PRILOSEC) 40 mg capsule Take 1 capsule by mouth once daily. - hydrocortisone (HEMORRHOIDAL HC) 25 mg suppository 1 Suppository by RECTAL route twice daily. - rizatriptan (MAXALT-EXCEPTIONAL STUDENT EDUCATION AIDE) 10 mg disintegrating tablet Take 1 tablet by mouth as needed for migraine headache (see administration instructions). May repeat in 2 hours if needed - Cholecalciferol, Vitamin D3, 125 mcg (5,000 unit) cap Take 1 capsule by mouth once daily. - budesonide (PULMICORT) 0.5 mg/2 mL nebulizer solution Use 2 mL via nebulizer once daily. - albuterol (PROVENTIL) 2.5 mg /3 mL (0.083 %) nebulizer solution Use 3 mL via nebulizer every 4 hours as needed for wheezing/shortness of breath. Use over 5-15minutes. - Nebulizer Accessories kit Provide nebulizer kit accessory. - ferrous sulfate (IRON ORAL) Take by mouth once daily. 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 Normal [facility] ECHOon 06-26-2024 Echocardiography Echocardiography Rep ort: Transthoracic Echo [facility] Date of service: 06/26/2024 3:26:54 PM SPREADER Ordering physician: AVNI SALCEDO Indication: Hypertension Technologist: Yolanda Foster [facility] Interpreting physician: Maury Huntley MD PATIENT: Name: MR. JAKE CHAIREZ : 1975 Age: 49 years Gender: M History of hypertension and dyslipidemia. Primary rhythm: sinus. Height: 167.60 cm BSA: 1.83 m Weight: 71.58 kg BMI: 25.5 kg/m Heart rate 101 bpm Blood pressure 146/83 mmHg Color Doppler was utilized to interrogate the cardiac valves assessed and spectral Doppler was utilized to determine the flow velocities and pressure gradients reported in this exam. Myocardial strain analysis was performed in this exam to aid in the assessment of cardiac function. MEASUREMENTS: Value Indexed Normal Max aortic dimension 3.4 cm Ao < 3.8 Left atrial volume 40 ml (biplane A-L) 22 ml/m Hai <= 34 LV ID (diastole) 4.2 cm (2D) 2.28 cm/m LV ID (systole) 3.2 cm (2D) 1.76 cm/m IVS, leaflet tips 0.9 cm (2D) Posterior wall thickness 1.1 cm (2D) Left ventricular mass 134 g (2D) 73 g/m Global peak long strain -17.9 % LV stroke volume 43 ml (2D biplane) LV end diastolic volume 71 ml (2D biplane) 38.6 ml/m 34<=EDVi<75 LV end systolic volume 28 ml (2D biplane) 15.2 ml/m Ejection Fraction 61 % (2D biplane) EF > 52 FINDINGS: LEFT VENTRICLE The left ventricle is normal in size. Left ventricular systolic function is normal. Global LV myocardial strain is normal. Normal left ventricular diastolic function. Mitral annular lateral E/e': 9.5. Mitral annular septal E/e': 8.5. Wall Motion: All scored segments are normal. RIGHT VENTRICLE The right ventricle is normal in size. Right ventricular systolic function is normal. RV systolic tissue Doppler velocity is 12.0 cm/s. Tricuspid annular displacement is 2.3 cm. Estimated right atrial pressure is 3 mmHg based on IVC assessment. LEFT ATRIUM The left atrial cavity is normal in size. Pulmonary Veins: The pulmonary venous pattern showed normal systolic flow. RIGHT ATRIUM The right atrial cavity is normal in size. Inferior Vena Cava: The inferior vena cava appears normal measuring 0.8 cm. The vessel decreases greater than 50 percent with inspiration. MITRAL VALVE The mitral valve leaflets are structurally normal. There is no mitral stenosis. There is no mitral valve regurgitation. The pressure half time is 52 msec. The peak mitral E/A ratio is 0.68. The average mitral E/e' ratio is 9.0. The mitral flow deceleration time is 178 msec. TRICUSPID VALVE The tricuspid valve leaflets are structurally normal. There is no tricuspid valve regurgitation. AORTIC VALVE There is no aortic valve stenosis. There is no aortic valve regurgitation. Tricuspid aortic valve. There is mild thickening. There is mild calcification. The peak gradient is 9 mmHg (peak velocity = 150.9 cm/s). PULMONIC VALVE The pulmonic valve cusps are structurally normal. There is no pulmonic stenosis. There is no pulmonic valve regurgitation. AORTA The visualized aorta is normal in size. Measurements - Mid ascending aorta 3.4 cm. PERICARDIUM There is no pericardial effusion. There is an epicardial fat pad. CONCLUSIONS: - Exam indication: Hypertension - The left ventricle is normal in size. Left ventricular systolic function is normal. EF = 61 5% (2D biplane). Normal left ventricular diastolic function. - The right ventricle is normal in size. Right ventricular systolic function is normal. - No significant valvular abnormalities. - Exam was compared with the prior CC echocardiographic exam performed on 10/13/2022, no significant change. * * * Final * * * [facility] : [id number] Normal [facility] Robert 06-24-2024 LU[facility] Telephone (FAMPWS) JAKE CHAIREZ ([id number]) 1975 M Date Time Provider Department 06/24/24 AVNI SALCEDOPWS During your visit today, we recorded the following information about you: Avni Salcedo DO 06/24/2024 9:57 AM Addendum Please inform patient that xray of his left foot shows IMPRESSION: No fracture or dislocation. 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 The remaining joint spaces are maintained. No osseous erosion. Use of topical NSAID such as voltaren on toe joint up to 2-3 times a day, pea sized amount, as needed for pain recommended For hand xray results IMPRESSION: No acute fracture or dislocation. 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 Remaining joint spaces are preserved. No osseous erosion. Can also use voltaren as above on hand units up to 2-3 times a day on small joint area of pain DO Colette Bell Brittany L, MA 06/24/2024 10:22 AM Signed Patient active MyChart. Patient notified via [employer] message. Liz Alvarenga MA Allergies As of Date: 06/24/2024 Noted Allergy Reaction ADVAIR DISKUS (FLUTICASONE PROPIO*05/18/2017 14 - Other: See Comments Comments: Thrush CODEINE 07/31/2005 8 - GI Upset CYMBALTA (DULOXETINE) 04/21/2020 14 - Other: See Comments Comments: Tachycardia FLONASE (FLUTICASONE PROPIONATE) 07/31/2005 Comments: MIGRAINE GABAPENTIN 10/24/2017 1 - Mental Status Change Comments: Suicidal ideations QVAR (BECLOMETHASONE DIPROPIONATE)05/18/2017 14 - Other: See Comments Comments: Thrush STRATTERA (ATOMOXETINE) 07/26/2022 1 - Mental Status Change Comments: Mood changes, suicidal thoughts SYMBICORT (BUDESONIDE-FORMOTEROL) 05/18/2017 14 - Other: See Comments Comments: Thrush TETANUS-DIPHTHERIA TOXOIDS-TD 06/22/2006 7 - Swelling Comments: swelling at site and numbness in arm Date Reviewed: 06/16/2024 Reviewed by: Ana Almanza LPN - Fully Assessed Reason for Visit: Results [95] Prescriptions as of 06/24/2024 - cyclobenzaprine (FLEXERIL) 10 mg tablet Take 1 tablet by mouth three times a day as needed. - promethazine (PHENERGAN) 25 mg tablet Take 1 tablet by mouth every 6 hours as needed. - famotidine (PEPCID) 40 mg tablet Take 1 tablet by mouth at bedtime as needed. - atorvastatin (LIPITOR) 20 mg tablet Take 1 tablet by mouth daily at bedtime. For cholesterol. Take with 40 mg tablet to equal 60 mg daily - atorvastatin (LIPITOR) 40 mg tablet Take 1 tablet by mouth daily at bedtime. For cholesterol. Take with 20 mg tablet to equal 60 mg daily - HYDROcodone-Ibuprofen (VICOPROFEN) 7.5-200 mg per tablet 1 tablet every 8 hours as needed for pain. - fexofenadine (TONYA) 180 mg tablet Take 1 tablet by mouth once daily as needed. - lisinopril (PRINIVIL) 20 mg tablet Take 1 tablet by mouth once daily. - ipratropium-albuterol (DUONEB) 0.5 mg-3 mg(2.5 mg base)/3 mL nebu Inhale 3 mL as instructed every 6 hours as needed (wheezing/shortness of breath.). - ipratropium 20 mcg-albuterol 100 mcg (COMBIVENT RESPIMAT) 20-100 mcg/actuation inhaler 1 puffs QID for asthma - montelukast (SINGULAIR) 10 mg tablet Take 1 tablet by mouth daily at bedtime. - potassium chloride (K-TAB) 10 mEq tablet Take 1 tablet by mouth daily with breakfast. - omeprazole (PRILOSEC) 40 mg capsule Take 1 capsule by mouth once daily. - hydrocortisone (HEMORRHOIDAL HC) 25 mg suppository 1 Suppository by RECTAL route twice daily. - rizatriptan (MAXALT-EXCEPTIONAL STUDENT EDUCATION AIDE) 10 mg disintegrating tablet Take 1 tablet by mouth as needed for migraine headache (see administration instructions). May repeat in 2 hours if needed - Cholecalciferol, Vitamin D3, 125 mcg (5,000 unit) cap Take 1 capsule by mouth once daily. - budesonide (PULMICORT) 0.5 mg/2 mL nebulizer solution Use 2 mL via nebulizer once daily. - albuterol (PROVENTIL) 2.5 mg /3 mL (0.083 %) nebulizer solution Use 3 mL via nebulizer every 4 hours as needed for wheezing/shortness of breath. Use over 5-15minutes. - Nebulizer Accessories kit Provide nebulizer kit accessory. - ferrous sulfate (IRON ORAL) Take by mouth once daily. 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 Normal [facility] CT CHEST WO IVCONon 06-23-20 CT CHEST WO IVCON * * *Final Report* * * DATE OF EXAM: Jun 23 2024 3:30PM [facility] 0541 - CT CHEST WO IVCON / PROCEDURE REASON: Pulmonary nodule * * * * Physician Interpretation * * * * EXAMINATION: CHEST CT WITHOUT CONTRAST CLINICAL HISTORY: Follow-up pulmonary nodules. Technique: Spiral CT acquisition of the chest from the thoracic inlet to the upper abdomen without contrast. MQ: [id number] CT Radiation dose: Integrated Dose-length product (DLP) for this visit = 208 mGy*cm CT Dose Reduction Employed: Automated exposure control(AEC) and iterative recon Comparison: CT chest 09/29/2022, 02/28/2017. RESULT: Limitations: None. Lines, tubes, and devices: None. Lung parenchyma and airways: The central airways are patent. No consolidation. Bilateral lower lobe linear scarring/atelectasis. Scattered calcified granulomas. Stable sub-6 mm solid benign-appearing pulmonary nodules, for example a 0.3 cm posterior left lower lobe nodule (6:161), 0.2 cm posterior left lower lobe nodule (6:273). No new or enlarging pulmonary nodules or solid masses. Pleural space: Mild left apical pleural parenchymal scarring. No pleural thickening or effusion. Lower neck, lymph nodes, and mediastinum: The imaged thyroid gland is normal. No lymphadenopathy in the supraclavicular, axillary, mediastinal, or hilar regions. Heart, pericardium, and thoracic vessels: The thoracic aorta and main pulmonary artery are normal in caliber. The cardiac chambers are normal in size. Coronary artery atherosclerotic calcifications are noted, although the study is not optimized for coronary assessment. No pericardial effusion or thickening. Bones and soft tissues: No destructive bone lesion. Chest wall is unremarkable. Upper abdomen: No acute abnormality in the imaged upper abdomen. Localizer images: No additional findings. IMPRESSION: Stable, sub-6 mm, benign-appearing pulmonary nodules. No new or enlarging pulmonary nodules. Belt Builder Helper: [facility] Transcribe Date/Time: Jun 26 2024 7:33A Dictated by : MYNOR OSORIO MD This examination was interpreted and the report reviewed and electronically signed by: MYNOR OSORIO MD on Jun 26 2024 7:43AM EST [id number] Normal [facility] 25(OH)D3 [facility] 2023 25-hydroxyvitamin D3 [Mass/Vol] 64.0 ng/mL Normal 31.0-80.0 [facility] Comment on above: Order Comment: Speci men Type: BLOOD SPECIMENOrdering Facility: [facility] Address: [facility] [place] [address] Result Comment: Clas sification of 25 [place] Vitamin D status: Deficiency/Insufficiency: < or = 30 ng/ml. Sufficiency/Optimal Levels: 31-80 ng/mL Toxicity: > 100 ng/mL. Test performed by chemiluminescent immunoassay. Performed By: #### 1 [id number] ####[facility] [id number] [address] OF [place] Comprehensive metabolic 2000 panelon 06-18-2024 Albumin [Mass/Vol] 4.8 g/dL Normal 3.9-4.9 [facility] Comment on above: Order Comment: Speci men Type: BLOOD SPECIMEN Ordering Facility: [facility] Address: [address] [place] [address] Performed By: #### 5 5454-3 #### [facility] CLIA [id number] [address] [place] [address] [place] ALP [Catalytic activity/Vol] 96 U/L Normal 38-113 [facility] Comment on above: Order Comment: Speci men Type: BLOOD SPECIMEN Ordering Facility: [facility] Address: [address] [place] [address] Performed By: #### 5 5454-3 #### [facility] CLIA [id number] [address] [place] [address] [place] ALT [Catalytic activity/Vol] 151 U/L High 10-54 [facility] Comment on above: Order Comment: Speci men Type: BLOOD SPECIMEN Ordering Facility: [facility] Address: [address] [place] [address] Performed By: #### 5 5454-3 #### [facility] CLIA [id number] [address] [place] [address] [place] Anion gap [Moles/Vol] 14 mmol/L Normal 8-15 [facility] Comment on above: Order Comment: Speci men Type: BLOOD SPECIMEN Ordering Facility: [facility] Address: [address] [place] [address] Performed By: #### 5 5454-3 #### [facility] CLIA [id number] [address] [place] [address] [place] AST [Catalytic activity/Vol] 97 U/L High 14-40 [facility] Comment on above: Order Comment: Speci men Type: BLOOD SPECIMEN Ordering Facility: [facility] Address: [address] [place], [place] [address] Performed By: #### 5 5454-3 #### [facility] CLIA [id number] [address] [place] [address] [place] Bilirubin [Mass/Vol] 0.8 mg/dL Normal 0.2-1.3 [facility] Comment on above: Order Comment: Speci men Type: BLOOD SPECIMEN Ordering Facility: [facility] Address: [address] [place] [address] Performed By: #### 5 5454-3 #### [facility] CLIA [id number] [address] [place] [address] [place] Calcium [Mass/Vol] 9.8 mg/dL Normal 8.5-10.2 [facility] Comment on above: Order Comment: Speci men Type: BLOOD SPECIMEN Ordering Facility: [facility] Address: [address] [place] [address] Performed By: #### 5 5454-3 #### [facility] CLIA [id number] [address] [place], [place] [address] [place] Chloride [Moles/Vol] 101 mmol/L Normal 98-107 [facility] Comment on above: Order Comment: Speci men Type: BLOOD SPECIMEN Ordering Facility: [facility] Address: [address] [place] [address] Performed By: #### 5 5454-3 #### [facility] CLIA [id number] [address] [place], [place] [address] [place] CO2 [Moles/Vol] 25 mmol/L Normal 22-30 [facility] Comment on above: Order Comment: Speci men Type: BLOOD SPECIMEN Ordering Facility: [facility] Address: [address] [place] [address] Performed By: #### 5 5454-3 #### [facility] CLIA [id number] [address] [place], [place] [address] [place] Creatinine [Mass/Vol] 0.84 mg/dL Normal 0.73-1.22 [facility] Comment on above: Order Comment: Mk gilmore Type: BLOOD SPECIMEN Ordering Facility: [facility] Address: [address] [place] [address] Performed By: #### 5 5454-3 #### [facility] CLIA [id number] [address] [place] [address] [place] [facility] [place] Creatinine and Glomerular filtration rate.predicted panel (S/P/Bld) 106 mL/min/1.73m??? Normal >=60 [facility] Comment on above: Order Comment: Mk gilmore Type: BLOOD SPECIMEN Ordering Facility: [facility] Address: [address] [place] [address] Result Comment: Darling mated Glomerular Filtration Rate (eGFR) is calculated using the 2020 CKD-EPI creatinine equation. This equation utilizes serum creatinine, sex, and age as parameters. The creatinine assay has traceable calibration to isotope dilution-mass spectrometry. Refer to KDIGO guidelines for clinical interpretation. In patients with unstable renal function, e.g. those with acute kidney injury, the eGFR may not accurately reflect actual GFR. Performed By: #### 5 5454-3 #### [facility] CLIA [id number] [address] [place] [address] [place] Glucose [Mass/Vol] 108 mg/dL High 74-99 [facility] Comment on above: Order Comment: Mk gilmore Type: BLOOD SPECIMEN Ordering Facility: [facility] Address: [address] [place] [address] Result Comment: The [place] Diabetes Association (ADA) provides guidance for cutoff values for fasting glucose and random glucose. The ADA defines fasting as no caloric intake for at least 8 hours. Fasting plasma glucose results between 100 to 125 [...] Standards of Medical Care in Diabetes 2016, [place] Diabetes Association. Diabetes Care. 2016.39(Suppl 1). Performed By: #### 5 5454-3 #### [facility] CLIA [id number] [address] [place] [address] [place] Potassium [Moles/Vol] 3.3 mmol/L Low 3.7-5.1 [facility] Comment on above: Order Comment: Speci men Type: BLOOD SPECIMEN Ordering Facility: [facility] Address: [address] [place] [address] Performed By: #### 5 5454-3 #### [facility] CLIA [id number] [address] [place] [address] [place] Protein [Mass/Vol] 7.2 g/dL Normal 6.3-8.0 [facility] Comment on above: Order Comment: Speci men Type: BLOOD SPECIMEN Ordering Facility: [facility] Address: [address] [place] [address] Performed By: #### 5 5454-3 #### [facility] CLIA [id number] [address] [place] [address] [place] Sodium [Moles/Vol] 140 mmol/L Normal 136-144 [facility] Comment on above: Order Comment: Speci men Type: BLOOD SPECIMEN Ordering Facility: [facility] Address: [address] [place] [address] Performed By: #### 5 5454-3 #### [facility] CLIA [id number] [address] [place], [place] [address] [place] Urea nitrogen [Mass/Vol] 17 mg/dL Normal 9-24 [facility] Comment on above: Order Comment: Speci men Type: BLOOD SPECIMEN Ordering Facility: [facility] Address: [address] [place], [place] [address] Performed By: #### 5 5454-3 #### [facility] CLIA [id number] [address] [place], [place] [address] [place] Lipid 1996 panelon 4 Cholesterol [Mass/Vol] 205 mg/dL High <200 [facility] Comment on above: Order Comment: Jankii men Type: BLOOD SPECIMEN Ordering Facility: [facility] Address: [address] [place] [address] Result Comment: <200 mg/dL, Desirable 200-239 mg/dL, Borderline high >239 mg/dL, High Performed By: #### 5 5454-3 #### [facility] CLIA [id number] [address] [place] [address] [place] Cholesterol in HDL [Mass/Vol] 104 mg/dL Normal >39 [facility] Comment on above: Order Comment: Jankii men Type: BLOOD SPECIMEN Ordering Facility: [facility] Address: [address] [place] [address] Result Comment: 40-5 9 mg/dL, Acceptable >59 mg/dL, High: Negative risk factor for coronary heart disease <40 mg/dL, Low: Positive risk factor for coronary heart disease Performed By: #### 5 5454-3 #### [facility] CLIA [id number] [address] [place] [address] [place] [facility] Cholesterol in LDL [Mass/Vol] 77 mg/dL Normal <100 [facility] Comment on above: Order Comment: Speci men Type: BLOOD SPECIMEN Ordering Facility: [facility] Address: [address] [place] [address] Result Comment: <100 mg/dL, Optimal 100-129 mg/dL, Near optimal/above optimal 130-159 mg/dL, Borderline high 160-189 mg/dL, High >189 mg/dL, Very high Secondary prevention optimal LDL Cholesterol levels are recommended to be < 70 mg/dL Performed By: #### 5 5454-3 #### [facility] CLIA [id number] [address] [place], [place] [address] [place] Cholesterol in LDL/Cholesterol in HDL [Mass ratio] 0.74 {ratio} Normal <2.54 [facility] Comment on above: Order Comment: Mk gilmore Type: BLOOD SPECIMEN Ordering Facility: [facility] Address: [address] [place] [address] Result Comment: Fern gao: 1. National Cholesterol Education Program ATP III Guideline At-A-Glance Quick Desk Reference: National Heart, Lung, and Blood [place]. National Institutes of Health. 2001: NIH Publication No. 01-3305. 2. An International Atherosclerosis Society position paper: global recommendations for the management of dyslipidemia: executive summary, Atherosclerosis. 2014: 232(2):410-413. Performed By: #### 5 5454-3 #### [facility] CLIA [id number] [address] [place] [address] [place] Cholesterol in VLDL [Mass/Vol] 24 mg/dL Normal <30 [facility] Comment on above: Order Comment: Mk gilmore Type: BLOOD SPECIMEN Ordering Facility: [facility] Address: [address] [place] [address] Performed By: #### 5 5454-3 #### [facility] CLIA [id number] [address] [place] [address] [place] Cholesterol non HDL [Mass/Vol] 101 mg/dL Normal <130 [facility] Comment on above: Order Comment: Mk gilmore Type: BLOOD SPECIMEN Ordering Facility: [facility] Address: [address] [place] [address] Result Comment: <130 mg/dL, Optimal 130-159 mg/dL, Near optimal/above optimal 160-189 mg/dL, Borderline high 190-219 mg/dL, High >219 mg/dL, Very high Secondary prevention optimal non HDL Cholesterol levels are recommended to be <100 mg/dL Performed By: #### 5 5454-3 #### [facility] CLIA [id number] [address] [place] [address] [place] Cholesterol.total/C holesterol in HDL [Mass ratio] 1.97 {ratio} Normal <5.10 [facility] Comment on above: Order Comment: Mk gilmore Type: BLOOD SPECIMEN Ordering Facility: [facility] Address: [address] [place] [address] Performed By: #### 5 5454-3 #### [facility] CLIA [id number] [address] [place] [address] [place] FASTING TIME 12 hrs Normal [facility] Comment on above: Order Comment: Speci men Type: BLOOD SPECIMEN Ordering Facility: [facility] Address: [address] [place] [address] Performed By: #### 5 5454-3 #### [facility] CLIA [id number] [address] [place] [address] [place] Triglyceride [Mass/Vol] 121 mg/dL Normal <150 [facility] Comment on above: Order Comment: Speci men Type: BLOOD SPECIMEN Ordering Facility: [facility] Address: [address] [place] [address] Result Comment: <150 mg/dL, Normal 150-199 mg/dL, Borderline high 200-499 mg/dL, High >499 mg/dL, Very high Performed By: #### 5 5454-3 #### [facility] CLIA [id number] [address] [place] [address] [place] Methylmalonate SerPl-sCncon 06-18-2024 Methylmalonate [Moles/Vol] 0.14 umol/L Normal <=0.40 [facility] Comment on above: Order Comment: Speci men Type: BLOOD SPECIMENOrdering Facility: [facility] Address: [address] [place] [address] Result Comment: This test was developed, and its performance characteristics determined by the [facility] Department of Pathology and Laboratory Medicine. It has not been cleared or approved by the FDA. The [facility] Department of Pathology and Laboratory Medicine is regulated under CLIA as qualified to perform high-complexity testing. This test is used for clinical purposes. It should not be regarded as investigational or for research. Performed By: #### 1 3964-2 ####[facility] [id number] [place] [address] [place] T4 Free SerPl-mCncon 024 Free T4 [Mass/Vol] 1.5 ng/dL Normal 0.9-1.7 [facility] Comment on above: Order Comment: Speci men Type: BLOOD SPECIMEN Ordering Facility: [facility] Address: [address] [place] [address] Performed By: #### 5 5454-3 #### [facility] CLIA [id number] [address] [place] [address] [place] TSH SerPl-aCncon 06-18-2024 TSH Qn 0.708 m[IU]/L Normal 0.270-4.20 0 [facility] Comment on above: Order Comment: Speci men Type: BLOOD SPECIMEN Ordering Facility: [facility] Address: [address] [place] [address] Performed By: #### 5 5454-3 #### [facility] IA [id number] [address] [place] [address] [place] Vit B12 SerPl-mCncon 024 Cobalamin (Vitamin B12) [Mass/Vol] 390 pg/mL Normal 232-1245 [facility] Comment on above: Order Comment: Speci men Type: BLOOD SPECIMEN Ordering Facility: [facility] Address: [address] [place] [address] Performed By: #### 5 5454-3 #### [facility] IA [id number] [address] [place] [address] [place] CNOVon 06-16-2024 CNOV Office Visit (FAMPWS ) JAKE CHAIREZ ([id number]) 1975 M Date Time Provider Department 06/16/24 3:20 PM AVNI SALCEDO FAMPWS During your visit today, we recorded the following information about you: Pulse Respiration Blood pressure Weight 92/minute 14/minute 128/68 71.6 kg Avni Salcedo, 06/18/2024 9:45 PM Signed CC: Jake Chairez is a 49 year old male who presents to the office for follow up HPI: Left hand pain, left thumb area, increasing in intensity, started 2 months ago. Has been wearing a thumb spica splint- sometimes some benefit to this and other times the pain is severe. Fatigue, concerns for potential MTHFR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 chest pain.REDUCE STRESSChronic emotional and physical stress leads to disease. Ways of reducingstress include meditation, visualization, prayer, yoga and other forms ofrelaxation therapy. Consistency is the ann. Find a technique that works foryou and do it every day.CULTIVATE RELATIONSHIPSLoneliness and isolation have a major negative impact on health. Seek outothers who can love, care for and nurture you. Avoid hurtful relationships.MAINTAIN IDEAL BODY WEIGHTThe best way to do this is to do all the things above. Our bodies naturallyfind the right weight if we keep moving and feed ourselves the right food. Ifyour BMI is greater than 25, we strongly recommend a referral to a weightmanagement program. Please speak to us or your family physician aboutavailable programs.AVOID NICOTINE IN ALL FORMSThis includes all tobacco products, whether chewed, smoked, vaped, or rubbed onthe skin. Smoking cessation programs, which can make use of tobaccosubstitutes, medications to suppress cravings and behavior management, areavailable. Please contact your family physician about programs in your area.Indra Dupree MD 08/09/2017 4:41 PM SignedPERTINENT CARDIAC HISTORYChest painHLHTNFamily history premature CADADHERENCE TO GUIDELINESACE-I or ARB for HF with prior LVEFANDlt;40 (NQF 0081) - N/AASA or Plavix for ASHD (NQF 0067) - N/ABeta james for ASHD with prior AK or prior LVEFANDlt;40 (NQF 0070) - N/ABeta james for HF with prior LVEFANDlt;40 (NQF 0083) - N/AACE-I or ARB for ASHD with DM or prior LVEFANDlt;40 ([facility] 0066) - N/AStatin therapy for ASHD or FHL or DM - N/ABMI documented and plan if ANDgt;25 ([facility] 0421) - lifestyle recommendation formTobacco use screening and referral ([facility] 0028) - lifestyle recommendation formRecommendation for whole food, plant based diet - lifestyle recommendation formCLINICAL IMPRESSION/PLAN:Jake Chairez had symptoms which were likely related to his anemia. He is nowtachycardic and hyperdynamic, likely related to the bronchodilators. He is nota candidate for beta james due to his bronchospastic component. We couldconsider using a small dose of rate slowing calcium james if he requires moreaggressive blood pressure control.I've asked him to contact me with vital signs in the next 2 weeks. For the timebeing, he will consider continue his lisinopril.I will see him in 6 months or as needed. He was advised that he is still atrisk for development of obstructive coronary disease.Written and verbal health teaching given to patient, patient verbalizesunderstanding and agrees with treatment plan.This note was generated using [employer] voice recognition system, and there may besome incorrect words, spellings, and punctuation that were not noted inchecking the note before saving.DIAGNOSIS FOR VISIT:Chest painExercise intoleranceHISTORY OF PRESENT ILLNESSJake Chairez returns for follow-up of his chest pain syndrome and shortness ofbreath. He was last seen in November. He was found to be profoundly anemic. Thisled to a diagnosis of sarcoid and he has been receiving aggressive pulmonaryevaluation and therapy. He has completed a course of steroids. He is now onmultiple inhalers.He reports that his chest pain has resolved. His exercise tolerance hasimproved. He's had minimal edema. He denies syncope, TIAs, amaurosis andclaudication. His heart rate has increased since he has been on thebronchodilators.ALLERGIES:AL LERGIESAllergen Reactions- Advair Diskus [Flut* Other: See Comments Thrush- Codeine GI Upset- Environmental [Othe* Unknown Cats, dogs, dust mites, grasses, weeds, ragweed- Flonase [Fluticason* MIGRAINE- Qvar [Beclomethason* Other: See Comments Thrush- Symbicort [Budesoni* Other: See Comments Thrush- Tetanus-Diphtheria * Swelling swelling at site and numbness in armCURRENT OUTPATIENT MEDICATIONS:ipratropium-albuter ol (COMBIVENT RESPIMAT) 20-100 mcg/actuation mist 1 puffsQID for asthmaOmeprazole (PRILOSEC) 40 mg capsule Take 1 capsule by mouth once daily.promethazine (PHENERGAN) 25 mg tablet Take 1 tablet by mouth every 6 hours asneeded.HYDROcodone-Ibuprofen (VICOPROFEN) 7.5-200 mg per tablet Take 1-2 tablets bymouth once daily as needed for Pain. Ok to fill on 06/20/17 or afteripratropium-albuterol (DUONEB) 0.5 mg-3 mg(2.5 mg base)/3 mL nebu Inhale 3 mLas instructed every 6 hours as needed (wheezing/shortness of breath.).budesonide (PULMICORT) 0.5 mg/2 mL nebulizer solution Use 2 mL via nebulizertwice daily at 6AM and 9PM. INHALE 2 ML BY NEBULIZER OVER 5-15 MINUTES EVERY 12HOURS.cyclobenzaprine (FLEXERIL) 10 mg tablet Take 1 tablet by mouth three timesdaily as needed.fexofenadine (TONYA) 180 mg tablet Take 1 tablet by mouth once daily asneeded.Hydrochlorothiazide 12.5 mg capsule Take 1 capsule by mouth once daily.albuterol HFA (PROVENTIL HFA) 90 mcg/actuation inhaler Inhale 2 Puffs asinstructed every 4 hours as needed for Wheezing/Shortness of Breath. NEEDEDFOR SHORTNESS OF BREATH AND WHEEZINGpredniSONE (DELTASONE) 10 mg tablet 4 tablets daily for 3 days, 3 tablets dailyfor 3 days, 2 tablets daily for 3 days, 1 tablet daily for 3 days.montelukast (SINGULAIR) 10 mg tablet Take 1 tablet by mouth daily at bedtime.rizatriptan (MAXALT-EXCEPTIONAL STUDENT EDUCATION AIDE) 10 mg disintegrating tablet Take 1 tablet by mouth asneeded for Migraine Headache (see administration instructions). May repeat in 2hours if needednitroglycerin sublingual (NITROQUICK) 0.4 mg SL tablet Dissolve 1 tablet underthe tongue as needed. FOR CHEST PAIN. IF NO RELIEF CALL 911triamcinolone acetonide (KENALOG) 0.1 % cream APPLY SPARINGLY TO AFFECTED AREATWICE DAILY NEEDED FOR RASH/ITCHINGketoconazole (NIZORAL) 2 % cream Apply 1 application to affected area oncedaily. For mouth cheilitis lesiondesonide (TRIDESILON) 0.05 % cream Apply 1 application to affected area twicedaily as needed. For mouth cheilitis lesionatorvastatin (LIPITOR) 40 mg tablet Take 1 tablet by mouth daily at bedtime.For cholesterol.lisinopril (PRINIVIL) 20 mg tablet Take 1 tablet by mouth once daily.LORazepam (ATIVAN) 0.5 mg tab Take 1 tablet by mouth twice daily as needed.PHYSICAL EXAMINATION:VITAL SIGNS: BP 136/88 Pulse 106 Wt 162 lb 4.8 oz (73.6kg)Chest: Clear to percussion and auscultation.There is minimal expiratoryprolongation. Trachea is midline. Air entry is equal. Cardiac: Regularrhythm. S1 and S2 are normal. PMI is nondisplaced. There is a soft systolicejection murmur. Carotids are brisk without bruits. JVP is less than 10 cm.Abdomen: Soft and nontender. There are no pulsatile masses or bruits. Noliver enlargement. Bowel sounds are active. Extremities: No edema. Pulsesare intact and symmetrical.Recent labs were reviewed. Hemoglobin is stable. Iron is normal. Renal functionis normal.Echocardiogram was finally completed. Left ventricular function ishyperdynamic. There is no significant valvular disease. He had a restingtachycardia.Electronical ly Signed:Indra Dupree MDSelect [facility]2016 4:36 [facility]: [facility] Bell Provider: INDRA DUPREE [[id number]]Allergies As of Date: 08/09/2017 Noted Allergy ReactionADVAIR DISKUS (FLUTICASONE-SALMET*05/18/2017 14 - Other: See Comments Comments: ThrushCODEINE 07/31/2005 8 - GI UpsetEnvironmental [Other] 05/25/2011 16 - Unknown Comments: Cats, dogs, dust mites, grasses, weeds, ragweedFLONASE (FLUTICASONE PROPIONATE) 07/31/2005 Comments: MIGRAINEQVAR (BECLOMETHASONE DIPROPIONATE)05/18/2017 14 - Other: See Comments Comments: ThrushSYMBICORT (BUDESONIDE-FORMOTEROL) 05/18/2017 14 - Other: See Comments Comments: ThrushTETANUS-DIPHTHERIA TOXOIDS-TD 06/22/2006 7 - Swelling Comments: swelling at site and numbness in armDate Reviewed: 08/09/2017Reviewed by: Chica Menjivar - Fully AssessedReason for Visit: Recheck [92]Primary Visit Diagnosis:Chest pain, unspecified type [R07.9]Prescriptions as of 08/09/2017 Sig: IPRATROPIUM 20 MCG-ALBUTEROL * 1 puffs QID for asthma OMEPRAZOLE 40 MG CAPSULE,MELI* Take 1 capsule by mouth once * PROMETHAZINE 25 MG TABLET Take 1 tablet by mouth every * HYDROCODONE 7.5 MG-IBUPROFEN * Take 1-2 tablets by mouth onc* IPRATROPIUM-ALBUTEROL 0.5 MG-* Inhale 3 mL as instructed jonatan* BUDESONIDE 0.5 MG/2 ML SUSPEN* Use 2 mL via nebulizer twice * CYCLOBENZAPRINE 10 MG TABLET Take 1 tablet by mouth three * FEXOFENADINE 180 MG TABLET Take 1 tablet by mouth once d* HYDROCHLOROTHIAZIDE 12.5 MG C* Take 1 capsule by mouth once * ALBUTEROL SULFATE HFA 90 MCG/* Inhale 2 Puffs as instructed * PREDNISONE 10 MG TABLET 4 tablets daily for 3 days, 3* MONTELUKAST 10 MG TABLET Take 1 tablet by mouth daily * RIZATRIPTAN 10 MG DISINTEGRAT* Take 1 [...] TABLET Take 1 tablet by mouth twice *Problem List As Of Date 08/09/2017 Noted Resolved ESOPHAGEAL REFLUX [K21.9] Priority: Severe [...] 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 EAT A WHOLE FOOD, PLANT BASED [...] to share with you on this topic. We also hold Shared Medical Appointments, where you can come visit with Dr. Dupree in the company of other patients and spend over an hour talking about the challenges of changing the way you eat. This is not a diet. It is [...] family physician about programs in your area. Status:Closed by INDRA DUPREE MD on 08/09/17 [facility] PROGRESSon 08-09-2017 PROGRESS HNO ID: [id number] thor: Indra Pino: (none)Author Type: PhysicianType: Progress NotesFiled: 08/09/2017 4:41 PMNote Text:PERTINENT CARDIAC HISTORYChest painHLHTNFamily history premature CADADHERENCE TO GUIDELINESACE-I or ARB for HF with prior LVEF<40 (NQF 0081) - N/AASA or Plavix for ASHD (NQF 0067) - N/ABeta james for ASHD with prior AK or prior LVEF<40 (NQF 0070) - N/ABeta james for HF with prior LVEF<40 (NQF 0083) - N/AACE-I or ARB for ASHD with DM or prior LVEF<40 (NQF 0066) - N/AStatin therapy for ASHD or FHL or DM - N/ABMI documented and plan if >25 (NQF 0421) - lifestyle recommendation formTobacco use screening and referral (NQF 0028) - lifestyle recommendationformRecommendatio n for whole food, plant based diet - lifestyle recommendationformCLINICAL IMPRESSION/PLAN:Jake Chairez had symptoms which were likely related to his anemia. He isnow tachycardic and hyperdynamic, likely related to the bronchodilators.He is not a candidate for beta james due to his bronchospasticcomponent. We could consider using a small dose of rate slowing calciumblocker if he requires more aggressive blood pressure control.I've asked him to contact me with vital signs in the next 2 weeks. For thetime being, he will consider continue his lisinopril.I will see him in 6 months or as needed. He was advised that he is stillat risk for development of obstructive coronary disease.Written and verbal health teaching given to patient, patient verbalizesunderstanding and agrees with treatment plan.This note was generated using Signicat voice recognition system, and theremay be some incorrect words, spellings, and punctuation that were notnoted in checking the note before saving.DIAGNOSIS FOR VISIT:Chest painExercise intoleranceHISTORY OF PRESENT ILLNESSJake Chairez returns for follow-up of his chest pain syndrome andshortness of breath. He was last seen in November. He was found to beprofoundly anemic. This led to a diagnosis of sarcoid and he has beenreceiving aggressive pulmonary evaluation and therapy. He has completed acourse of steroids. He is now on multiple inhalers.He reports that his chest pain has resolved. His exercise tolerance hasimproved. He's had minimal edema. He denies syncope, TIAs, amaurosis andclaudication. His heart rate has increased since he has been on thebronchodilators.ALLERGIES:AL LERGIESAllergen Reactions- Advair Diskus [Flut* Other: See Comments Thrush- Codeine GI Upset- Environmental [Othe* Unknown Cats, dogs, dust mites, grasses, weeds, ragweed- Flonase [Fluticason* MIGRAINE- Qvar [Beclomethason* Other: See Comments Thrush- Symbicort [Budesoni* Other: See Comments Thrush- Tetanus-Diphtheria * Swelling swelling at site and numbness in armCURRENT OUTPATIENT MEDICATIONS:ipratropium-albuter ol (COMBIVENT RESPIMAT) 20-100 mcg/actuation mist 1puffs QID for asthmaOmeprazole (PRILOSEC) 40 mg capsule Take 1 capsule by mouth once daily.promethazine (PHENERGAN) 25 mg tablet Take 1 tablet by mouth every 6 hoursas needed.HYDROcodone-Ibuprofen (VICOPROFEN) 7.5-200 mg per tablet Take 1-2 tabletsby mouth once daily as needed for Pain. Ok to fill on 06/20/17 or afteripratropium-albuterol (DUONEB) 0.5 mg-3 mg(2.5 mg base)/3 mL nebu Inhale 3mL as instructed every 6 hours as needed (wheezing/shortness of breath.).budesonide (PULMICORT) 0.5 mg/2 mL nebulizer solution Use 2 mL vianebulizer twice daily at 6AM and 9PM. INHALE 2 ML BY NEBULIZER OVER 5-15MINUTES EVERY 12 HOURS.cyclobenzaprine (FLEXERIL) 10 mg tablet Take 1 tablet by mouth three timesdaily as needed.fexofenadine (TONYA) 180 mg tablet Take 1 tablet by mouth once daily asneeded.Hydrochlorothiazide 12.5 mg capsule Take 1 capsule by mouth once daily.albuterol HFA (PROVENTIL HFA) 90 mcg/actuation inhaler Inhale 2 Puffs asinstructed every 4 hours as needed for Wheezing/Shortness of Breath. ASNEEDED FOR SHORTNESS OF BREATH AND WHEEZINGpredniSONE (DELTASONE) 10 mg tablet 4 tablets daily for 3 days, 3 tabletsdaily for 3 days, 2 tablets daily for 3 days, 1 tablet daily for 3 days.montelukast (SINGULAIR) 10 mg tablet Take 1 tablet by mouth daily atbedtime.rizatriptan (MAXALT-EXCEPTIONAL STUDENT EDUCATION AIDE) 10 mg disintegrating tablet Take 1 tablet bymouth as needed for Migraine Headache (see administration instructions).May repeat in 2 hours if needednitroglycerin sublingual (NITROQUICK) 0.4 mg SL tablet Dissolve 1 tabletunder the tongue as needed. FOR CHEST PAIN. IF NO RELIEF CALL 911triamcinolone acetonide (KENALOG) 0.1 % cream APPLY SPARINGLY TO AFFECTEDAREA TWICE DAILY NEEDED FOR RASH/ITCHINGketoconazole (NIZORAL) 2 % cream Apply 1 application to affected area oncedaily. For mouth cheilitis lesiondesonide (TRIDESILON) 0.05 % cream Apply 1 application to affected areatwice daily as needed. For mouth cheilitis lesionatorvastatin (LIPITOR) 40 mg tablet Take 1 tablet by mouth daily atbedtime. For cholesterol.lisinopril (PRINIVIL) 20 mg tablet Take 1 tablet by mouth once daily.LORazepam (ATIVAN) 0.5 mg tab Take 1 tablet by mouth twice daily asneeded.PHYSICAL EXAMINATION:VITAL SIGNS: BP 136/88 Pulse 106 Wt 162 lb 4.8 oz (73.6kg)Chest: Clear to percussion and auscultation.There is minimal expiratoryprolongation. Trachea is midline. Air entry is equal. Cardiac: Regularrhythm. S1 and S2 are normal. PMI is nondisplaced. There is a softsystolic ejection murmur. Carotids are brisk without bruits. JVP isless than 10 cm. Abdomen: Soft and nontender. There are no pulsatilemasses or bruits. No liver enlargement. Bowel sounds are active.Extremities: No edema. Pulses are intact and symmetrical.Recent labs were reviewed. Hemoglobin is stable. Iron is normal. Renalfunction is normal.Echocardiogram was finally completed. Left ventricular function ishyperdynamic. There is no significant valvular disease. He had a restingtachycardia.Electronical ly Signed:Indra Dupree MDJames [facility] 2016 4:36 PMCC: Avni Salcedo, DO Normal [facility] 07-18-2017 Erythrocyte distribution width Auto Ratio (RBC) Letter TextDepartment of Ahhhdiiow[address] [place], [place] [address]Swimd: [phone] WHOM IT MAY CONCERN:This is to confirm that [facility] had an appointment [facility]/2017 and may return to work on 07-18-17.Sincerely yours,Cardiology Staff Normal [facility] Vital Signs Date Time Vital Sign Value Performing Clinician Facility 01-12-2025 14:24-040 Body mass index (BMI) [Ratio] 26.47 kg/m2 Elmer White MD Work Phone: [facility] 01-12-2025 14:24-040 Body weight 74.39 kg Elmer White MD Work Phone: [facility] 01-12-2025 14:24-040 Diastolic blood pressure 96 mm[Hg] Elmer White MD Work Phone: [facility] 01-12-2025 14:24-0400 Heart rate 118 /min Elmer White MD Work Phone: [facility] 01-12-2025 14:24-0400 Respiratory rate 16 /min Elmer White MD Work Phone: [facility] 01-12-2025 14:24-0400 Systolic blood pressure 128 mm[Hg] Elmer White MD Work Phone: [facility] 01-08-2025 14:01-0400 Body mass index (BMI) [Ratio] 26.69 kg/m2 Tavon Valencia WATCHER [employer].TRANSFER STATION OPERATOR Work Phone: [facility] 01-08-2025 14:01-0400 Body weight 75 kg Tavon Valencia WATCHER [employer].TRANSFER STATION OPERATOR Work Phone: [facility] 01-08-2025 14:01-0400 Diastolic blood pressure 87 mm[Hg] Tavon Valencia WATCHER [employer]OUT [employer]OWER.TRANSFER STATION OPERATOR Work Phone: [facility] 01-08-2025 14:01-0400 Heart rate 108 /min Tavon Valencia WATCHER [employer]OUT [employer].TRANSFER STATION OPERATOR Work Phone: [facility] 01-08-2025 14:01-0400 Systolic blood pressure 126 mm[Hg] Tavon Zapataoble WATCHER [employer]OUT [employer]OWER.TRANSFER STATION OPERATOR Work Phone: [facility] 01-07-2025 14:51-0400 Body height 167.6 cm Yoon Click WATCHER [employer]OUT [employer]OWER.TRANSFER STATION OPERATOR Work Phone: [facility] 01-07-2025 14:51-0400 Body mass index (BMI) [Ratio] 26.79 kg/m2 Yoon Click WATCHER [employer].TRANSFER STATION OPERATOR Work Phone: [facility] 01-07-2025 14:51-0400 Body weight 75.3 kg Yoon Click WATCHER [employer].TRANSFER STATION OPERATOR Work Phone: [facility] 01-07-2025 14:51-0400 Diastolic blood pressure 78 mm[Hg] Yoon Click WATCHER L[employer]OUT TOWER.TRANSFER STATION OPERATOR Work Phone: [facility] 01-07-2025 14:51-0400 Heart rate 117 /min Yoon Click WATCHER [employer]OUT [employer]OWER.TRANSFER STATION OPERATOR Work Phone: [facility] 01-07-2025 14:51-0400 Respiratory rate 15 /min Yoon Click WATCHER [employer]OUT TOWER.TRANSFER STATION OPERATOR Work Phone: [facility] 01-07-2025 14:51-0400 SaO2% (BldA) [Mass fraction] 97 % Yoon Click WATCHER [employer].TRANSFER STATION OPERATOR Work Phone: [facility] 01-07-2025 14:51-0400 Systolic blood pressure 122 mm[Hg] Yoon Click WATCHER [employer]OUT [employer].TRANSFER STATION OPERATOR Work Phone: [facility] 01-07-2025 14:45-0400 Body height 167.6 cm Pulm Wstr Work Phone: [facility] 01-07-2025 14:45-0400 Body mass index (BMI) [Ratio] 26.79 kg/m2 Pulm Wstr Work Phone: [facility] 01-07-2025 14:45-0400 Body weight 75.3 kg Pulm Wstr Work Phone: [facility] 01-07-2025 14:45-0400 Heart rate 117 /min Pulm Wstr Work Phone: [facility] 01-07-2025 14:45-0400 Respiratory rate 15 /min Pulm Wstr Work Phone: [facility] 01-07-2025 14:45-0400 SaO2% (BldA) [Mass fraction] 97 % Pulm Wstr Work Phone: [facility] 10-09-2024 14:41-0500 Body mass index (BMI) [Ratio] 26.79 kg/m2 Shayla Rogers MD Work Phone: [facility] 10-09-2024 14:41-0500 Body weight 75.3 kg Shayla Rogers MD Work Phone: [facility] 10-09-2024 14:41-0500 Diastolic blood pressure 72 mm[Hg] Shayla Rogers MD Work Phone: [facility] 10-09-2024 14:41-0500 Heart rate 101 /min Shayla Rogers MD Work Phone: [facility] 10-09-2024 14:41-0500 Respiratory rate 18 /min Shayla Rogers MD Work Phone: [facility] 10-09-2024 14:41-0500 SaO2% (BldA) [Mass fraction] 98 % Shayla Rogers MD Work Phone: [facility] 10-09-2024 14:41-0500 Systolic blood pressure 118 mm[Hg] Shayla Rogers MD Work Phone: [facility] 10-06-2024 12:53-0500 Body mass index (BMI) [Ratio] 26.86 kg/m2 Elmira Hartmanpster WATCHER [employer]OUT TOWER.TRANSFER STATION OPERATOR Work Phone: [facility] 10-06-2024 12:53-0500 Body weight 75.48 kg Elmira Calhoun WATCHER [employer].TRANSFER STATION OPERATOR Work Phone: [facility] 10-06-2024 12:53-0500 Diastolic blood pressure 78 mm[Hg] Elmira Calhoun WATCHER L[employer]OUT [employer]OWER.TRANSFER STATION OPERATOR Work Phone: [facility] 10-06-2024 12:53-0500 Heart rate 100 /min Elmira Calhoun WATCHER LOOKOUT TOWER.TRANSFER STATION OPERATOR Work Phone: [facility] 10-06-2024 12:53-0500 Respiratory rate 20 /min Elmira Calhoun WATCHER L[employer]OUT TOWER.TRANSFER STATION OPERATOR Work Phone: [facility] 10-06-2024 12:53-0500 SaO2% (BldA) [Mass fraction] 98 % Elmira Hartmanpster WATCHER L[employer]OUT TOWER.TRANSFER STATION OPERATOR Work Phone: [facility] 10-06-2024 12:53-0500 Systolic blood pressure 124 mm[Hg] Elmira Calhoun WATCHER L[employer]OUT TOWER.TRANSFER STATION OPERATOR Work Phone: [facility] 06-16-2024 15:45-0400 Body mass index (BMI) [Ratio] 25.47 kg/m2 Avni Salcedo DO Work Phone: [facility] 06-16-2024 15:45-0400 Body weight 71.58 kg Avni Salcedo DO Work Phone: [facility] 06-16-2024 15:45-0400 Diastolic blood pressure 68 mm[Hg] Avni Salcedo DO Work Phone: [facility] 06-16-2024 15:45-0400 Heart rate 92 /min Avni Salcedo DO Work Phone: [facility] 06-16-2024 15:45-0400 Respiratory rate 14 /min Avni Salcedo DO Work Phone: [facility] 06-16-2024 15:45-0400 SaO2% (BldA) [Mass fraction] 98 % Avni Salcedo DO Work Phone: [facility] 06-16-2024 15:45-0400 Systolic blood pressure 128 mm[Hg] Avni Salcedo DO Work Phone: [facility] 04-16-2024 12:46-0400 Diastolic blood pressure 85 mm[Hg] John Chowdhury MD Work Phone: [facility] 04-16-2024 12:46-0400 Heart rate 89 /min John Chowdhury MD Work Phone: [facility] 04-16-2024 12:46-0400 Respiratory rate 16 /min John Chowdhury MD Work Phone: [facility] 04-16-2024 12:46-0400 SaO2% (BldA) [Mass fraction] 98 % John Chowdhury MD Work Phone: [facility] 04-16-2024 12:46-0400 Systolic blood pressure 152 mm[Hg] John Chowdhury MD Work Phone: [facility] 04-16-2024 11:26-0400 Body temperature 98.2 [degF] John Chowdhury MD Work Phone: [facility] 04-16-2024 09:20-0400 Body height 167.6 cm John Chowdhury MD Work Phone: [facility] 04-16-2024 09:20-0400 Body mass index (BMI) [Ratio] 25.26 kg/m2 John Chowdhury MD Work Phone: [facility] 04-16-2024 09:20-0400 Body weight 71 kg John Chowdhury MD Work Phone: [facility] 03-05-2024 13:11-0400 Body mass index (BMI) [Ratio] 25.28 kg/m2 Su Ham WATCHER [employer]OUT [employer]OWER.TRANSFER STATION OPERATOR Work Phone: [facility] 03-05-2024 13:11-0400 Body weight 71.03 kg Su Ham WATCHER LOOKOUT TOWER.TRANSFER STATION OPERATOR Work Phone: [facility] 03-05-2024 13:11-0400 Diastolic blood pressure 70 mm[Hg] Su Ham WATCHER LOOKOUT TOWER.TRANSFER STATION OPERATOR Work Phone: [facility] 03-05-2024 13:11-0400 Heart rate 104 /min Su Ham WATCHER LOOKOUT TOWER.TRANSFER STATION OPERATOR Work Phone: [facility] 03-05-2024 13:11-0400 Respiratory rate 14 /min Su Ham WATCHER LOOKOUT TOWER.TRANSFER STATION OPERATOR Work Phone: [facility] 03-05-2024 13:11-0400 Systolic blood pressure 118 mm[Hg] Su Ham WATCHER LOOKOUT TOWER.TRANSFER STATION OPERATOR Work Phone: [facility] 02-08-2024 11:31-0400 Body height 167.6 cm John Chowdhury MD Work Phone: [facility] 02-08-2024 11:31-0400 Body mass index (BMI) [Ratio] 26.08 kg/m2 John Chowdhury MD Work Phone: [facility] 02-08-2024 11:31-0400 Body temperature 98.71 [degF] John Chowdhury MD Work Phone: [facility] 02-08-2024 11:31-0400 Body weight 73.3 kg John Chowdhury MD Work Phone: [facility] 02-08-2024 11:31-0400 Diastolic blood pressure 88 mm[Hg] John Chowdhury MD Work Phone: [facility] 02-08-2024 11:31-0400 Heart rate 101 /min John Chowdhury MD Work Phone: [facility] 02-08-2024 11:31-0400 SaO2% (BldA) [Mass fraction] 98 % John Chowdhury MD Work Phone: [facility] 02-08-2024 11:31-0400 Systolic blood pressure 124 mm[Hg] John Chowdhury MD Work Phone: [facility] 01-31-2024 13:33-0400 Body mass index (BMI) [Ratio] 26.7 kg/m2 Su Ham WATCHER L[employer]OUT [employer]OWER.TRANSFER STATION OPERATOR Work Phone: [facility] 01-31-2024 13:33-0400 Body weight 73.57 kg Su Ham WATCHER LOOKOUT TOWER.TRANSFER STATION OPERATOR Work Phone: [facility] 01-31-2024 13:33-0400 Diastolic blood pressure 96 mm[Hg] Su Ham WATCHER LOOKOUT TOWER.TRANSFER STATION OPERATOR Work Phone: [facility] 01-31-2024 13:33-0400 Heart rate 96 /min Su Ham WATCHER LOOKOUT TOWER.TRANSFER STATION OPERATOR Work Phone: [facility] 01-31-2024 13:33-0400 Respiratory rate 14 /min Su Ham WATCHER LOOKOUT TOWER.TRANSFER STATION OPERATOR Work Phone: [facility] 01-31-2024 13:33-0400 SaO2% (BldA) [Mass fraction] 98 % Su Ham WATCHER LOOKOUT TOWER.TRANSFER STATION OPERATOR Work Phone: [facility] 01-31-2024 13:33-0400 Systolic blood pressure 136 mm[Hg] Su Ham WATCHER LOOKOUT TOWER.TRANSFER STATION OPERATOR Work Phone: [facility] 01-08-2023 14:56-0400 Body temperature 98.01 [degF] Avni Ahnrison DO Work Phone: [facility] 01-08-2023 14:56-0400 Body weight 74.84 kg Avni Salcedo DO Work Phone: [facility] 01-08-2023 14:56-0400 Diastolic blood pressure 80 mm[Hg] Avni Salcedo DO Work Phone: [facility] 01-08-2023 14:56-0400 Heart rate 80 /min Avni Salcedo DO Work Phone: [facility] 01-08-2023 14:56-0400 Respiratory rate 16 /min Avni Salcedo DO Work Phone: [facility] 01-08-2023 14:56-0400 Systolic blood pressure 112 mm[Hg] Avni Salcedo DO Work Phone: [facility] 11-16-2022 19:40-0500 Body height 167.[address] Avni Salcedo Work Phone: 7(032)700-265780 [place] [address] 11-16-2022 19:40-0500 Body mass index (BMI) [Ratio] 27.4 kg/m2 Dr. Avni Salcedo Work Phone: 7(265)095-870952 [place] [address] 11-16-2022 19:40-0500 Body temperature 97 [degF] Dr. Avni Salcedo Work Phone: 0(193)073-003552 [place] [address] 11-16-2022 19:40-0500 Body weight 77.[address] Avni Salcedo Work Phone: 8(744)843-022480 [place] [address] 11-16-2022 19:40-0500 Diastolic blood pressure 97 mm[Hg] Dr. Avni Salcedo Work Phone: 0(523)817-713352 [place] [address] 11-16-2022 19:40-0500 Heart rate 110 /min Dr. Avni Salcedo Work Phone: 1(638)235-801280 [place] [address] 11-16-2022 19:40-0500 Respiratory rate 16 /min Dr. Avni Salcedo Work Phone: 6(939)930-003880 [place] [address] 11-16-2022 19:40-0500 SaO2% (BldA) [Mass fraction] 100 % Dr. Avni Salcedo Work Phone: [facility] 11-16-2022 19:40-0500 Systolic blood pressure 169 mm[Hg] Dr. Avni Salcedo Work Phone: [facility] 11-02-2022 14:05-0500 Body mass index (BMI) [Ratio] 27.4 kg/m2 Dr. Avni Salcedo Work Phone: [facility] 11-02-2022 14:05-0500 Body weight 77.[address] Avni Salcedo Work Phone: [facility] 11-01-2022 14:18-0500 Body weight 77.02 kg Su Ham WATCHER [employer]OOKOUT TOWER.TRANSFER STATION OPERATOR Work Phone: [facility] 11-01-2022 14:18-0500 Diastolic blood pressure 70 mm[Hg] Su Ham WATCHER LOOKOUT TOWER.TRANSFER STATION OPERATOR Work Phone: [facility] 11-01-2022 14:18-0500 Heart rate 100 /min Su Ham WATCHER LOOKOUT TOWER.TRANSFER STATION OPERATOR Work Phone: [facility] 11-01-2022 14:18-0500 Respiratory rate 14 /min Su Ham WATCHER LOOKOUT TOWER.TRANSFER STATION OPERATOR Work Phone: [facility] 11-01-2022 14:18-0500 SaO2% (BldA) [Mass fraction] 97 % Su Ham WATCHER LOOKOUT TOWER.TRANSFER STATION OPERATOR Work Phone: [facility] 11-01-2022 14:18-0500 Systolic blood pressure 128 mm[Hg] Su Ham WATCHER LOOKOUT TOWER.TRANSFER STATION OPERATOR Work Phone: [facility] 10-13-2022 12:50-0500 Body weight 75.3 kg Pulm Wstr Work Phone: [facility] 10-13-2022 12:50-0500 Heart rate 109 /min Pulm Wstr Work Phone: [facility] 10-13-2022 12:50-0500 Respiratory rate 14 /min Pulm Wstr Work Phone: [facility] 10-13-2022 12:50-0500 SaO2% (BldA) [Mass fraction] 98 % Pulm Wstr Work Phone: [facility] 10-11-2022 16:52-0500 Body temperature 97 [degF] Avni Salcedo DO Work Phone: [facility] 10-11-2022 16:52-0500 Body weight 77.56 kg Avni Salcedo DO Work Phone: [facility] 10-11-2022 16:52-0500 Diastolic blood pressure 82 mm[Hg] Avni Salcedo DO Work Phone: [facility] 10-11-2022 16:52-0500 Heart rate 64 /min Avni Salcedo DO Work Phone: [facility] 10-11-2022 16:52-0500 Respiratory rate 16 /min Avni Salcedo DO Work Phone: [facility] 10-11-2022 16:52-0500 Systolic blood pressure 134 mm[Hg] Avni Salcedo DO Work Phone: [facility] 09-22-2022 13:07-0500 Body temperature 98.29 [degF] Su Ham WATCHER LOOKOUT TOWER.TRANSFER STATION OPERATOR Work Phone: [facility] 09-22-2022 13:07-0500 Body weight 75.39 kg Su Ham WATCHER LOOKOUT TOWER.TRANSFER STATION OPERATOR Work Phone: [facility] 09-22-2022 13:07-0500 Diastolic blood pressure 80 mm[Hg] Su Ham WATCHER LOOKOUT TOWER.TRANSFER STATION OPERATOR Work Phone: [facility] 09-22-2022 13:07-0500 Heart rate 104 /min Su Ham WATCHER LOOKOUT TOWER.TRANSFER STATION OPERATOR Work Phone: [facility] 09-22-2022 13:07-0500 Respiratory rate 16 /min Su Ham WATCHER LOOKOUT TOWER.TRANSFER STATION OPERATOR Work Phone: [facility] 09-22-2022 13:07-0500 SaO2% (BldA) [Mass fraction] 98 % Su Ham WATCHER LOOKOUT TOWER.TRANSFER STATION OPERATOR Work Phone: [facility] 09-22-2022 13:07-0500 Systolic blood pressure 130 mm[Hg] Su Ham WATCHER LOOKOUT TOWER.TRANSFER STATION OPERATOR Work Phone: [facility] 09-18-2022 11:10-0500 Body temperature 97.9 [degF] Elmer Pendlebury WATCHER LOOKOUT TOWER.TRANSFER STATION OPERATOR Work Phone: [facility] 09-18-2022 11:10-0500 Body weight 74.39 kg Elmer Pendlejeff WATCHER LOOKOUT TOWER.TRANSFER STATION OPERATOR Work Phone: [facility] 09-18-2022 11:10-0500 Diastolic blood pressure 72 mm[Hg] Elmer Pendlebury WATCHER LOOKOUT TOWER.TRANSFER STATION OPERATOR Work Phone: [facility] 09-18-2022 11:10-0500 Heart rate 118 /min Elmer Pendlebury WATCHER LOOKOUT TOWER.TRANSFER STATION OPERATOR Work Phone: [facility] 09-18-2022 11:10-0500 Respiratory rate 18 /min Elmer Pendlebury WATCHER LOOKOUT TOWER.TRANSFER STATION OPERATOR Work Phone: [facility] 09-18-2022 11:10-0500 SaO2% (BldA) [Mass fraction] 97 % Elmer Pendlebury WATCHER LOOKOUT TOWER.TRANSFER STATION OPERATOR Work Phone: [facility] 09-18-2022 11:10-0500 Systolic blood pressure 122 mm[Hg] Elmer Pendlebury WATCHER LOOKOUT TOWER.TRANSFER STATION OPERATOR Work Phone: [facility] 07-10-2022 14:59-0400 Body temperature 98.2 [degF] Avni Salcedo DO Work Phone: [facility] 07-10-2022 14:59-0400 Body weight 75.3 kg Avni Salcedo DO Work Phone: [facility] 07-10-2022 14:59-0400 Diastolic blood pressure 80 mm[Hg] Avni Salcedo DO Work Phone: [facility] 07-10-2022 14:59-0400 Heart rate 104 /min Avni Salcedo DO Work Phone: [facility] 07-10-2022 14:59-0400 Respiratory rate 12 /min Avni Salcedo DO Work Phone: [facility] 07-10-2022 14:59-0400 Systolic blood pressure 120 mm[Hg] Avni Salcedo DO Work Phone: [facility] 05-30-2022 13:00-0400 Diastolic blood pressure 86 mm[Hg] Yash Golias PT Work Phone: [facility] 05-30-2022 13:00-0400 Systolic blood pressure 126 mm[Hg] Yash Golias PT Work Phone: [facility] 05-19-2022 10:56-0400 Body temperature 96.49 [degF] Avni Salcedo DO Work Phone: [facility] 05-19-2022 10:56-0400 Body weight 74.84 kg Avni Salcedo DO Work Phone: [facility] 05-19-2022 10:56-0400 Diastolic blood pressure 82 mm[Hg] Avni Salcedo DO Work Phone: [facility] 05-19-2022 10:56-0400 Heart rate 96 /min Avni Salcedo DO Work Phone: [facility] 05-19-2022 10:56-0400 Respiratory rate 16 /min Avni Salcedo DO Work Phone: [facility] 05-19-2022 10:56-0400 Systolic blood pressure 138 mm[Hg] Avni Salcedo DO Work Phone: [facility] 04-18-2022 16:23-0400 Body temperature 99.9 [degF] Tammy Llanes WATCHER LOOKOUT TOWER.TRANSFER STATION OPERATOR Work Phone: [facility] 04-18-2022 16:23-0400 Body weight 73.48 kg Tammy Shraddha WATCHER LOOKOUT TOWER.TRANSFER STATION OPERATOR Work Phone: [facility] 04-18-2022 16:23-0400 Diastolic blood pressure 74 mm[Hg] Tammy Shraddha WATCHER LOOKOUT TOWER.TRANSFER STATION OPERATOR Work Phone: [facility] 04-18-2022 16:23-0400 Heart rate 119 /min Tammy Shraddha WATCHER LOOKOUT TOWER.TRANSFER STATION OPERATOR Work Phone: [facility] 04-18-2022 16:23-0400 Respiratory rate 18 /min Tammy Shraddha WATCHER LOOKOUT TOWER.TRANSFER STATION OPERATOR Work Phone: [facility] 04-18-2022 16:23-0400 SaO2% (BldA) [Mass fraction] 97 % Tammy Shraddha WATCHER LOOKOUT TOWER.TRANSFER STATION OPERATOR Work Phone: [facility] 04-18-2022 16:23-0400 Systolic blood pressure 130 mm[Hg] Tammy Shraddha WATCHER LOOKOUT TOWER.TRANSFER STATION OPERATOR Work Phone: [facility] 12-12-2021 13:01-0400 Body height 166 cm NA Ludwig PA-C Work Phone: [facility] 12-12-2021 13:01-0400 Body weight 74.84 kg NA Ludwig PA-C Work Phone: [facility] 12-12-2021 13:01-0400 Diastolic blood pressure 74 mm[Hg] NA Ludwig PA-C Work Phone: [facility] 12-12-2021 13:01-0400 Heart rate 107 /min NA Ludwig PA-C Work Phone: [facility] 12-12-2021 13:01-0400 Respiratory rate 16 /min NA Ludwig PA-C Work Phone: [facility] 12-12-2021 13:01-0400 SaO2% (BldA) [Mass fraction] 97 % NA Ludwig PA-C Work Phone: [facility] 12-12-2021 13:01-0400 Systolic blood pressure 122 mm[Hg] NA Ludwig PA-C Work Phone: [facility] Encounters Encounter Date Encounter Type Care Provider Facility Start: 02-04-2025 End: 02-05-2025 Telephone encounter Elmer White MD Work Phone: [facility] [place] Start: 01-30-2025 End: 01-30-2025 ambulatory YOON MAGANA Facility:[id number] Start: 01-13-2025 End: 01-14-2025 Follow-up encounter Elmer White MD Work Phone: [facility] [place] Comment on above: Results Start: 01-12-2025 End: 01-12-2025 Subsequent hospital visit by physician Efrem [facility] Work Phone: Radiology Comment on above: Rib pain on left dustin e [R07.81] Start: 01-12-2025 End: 01-12-2025 Office outpatient visit 25 minutes Elmer White MD Work Phone: [facility] [place] Comment on above: Rib pain on left dustin e (Primary Dx); Left sided abdominal pain Start: 01-12-2025 End: 01-12-2025 ambulatory TAVON VALENCIA Facility:[facility] Start: 01-12-2025 End: 01-13-2025 Follow-up encounter Elmer White MD Work Phone: [facility] [place] Comment on above: Results Start: 01-08-2025 End: 01-08-2025 Patient encounter procedure Tavon Valencia WATCHER LOOKOUT TOWER.TRANSFER STATION OPERATOR Work Phone: [facility] [place] Comment on above: IFG (impaired fastin g glucose) (Primary Dx); Hyperlipidemia, mixed; Chronic allergic rhinitis; Displacement of lumbar intervertebral disc without myelopathy; Essential hypertension, benign; Migraine without aura and without status migrainosus, not intractable; Sarcoidosis of lung (HCC); Mixed hyperlipidemia; Asthma, moderate persistent, well-controlled (HCC) Start: 01-08-2025 End: 01-08-2025 ambulatory TAVON VALENCIA Facility:[facility] Start: 01-07-2025 End: 01-07-2025 Office outpatient visit 40 minutes Yoon Magana WATCHER LOOKOUT TOWER.TRANSFER STATION OPERATOR Work Phone: Pulmonary Medicine Comment on above: Asthma, moderate per sistent, poorly-controlled (HCC) (Primary Dx); Acute non-recurrent maxillary sinusitis; Chronic allergic rhinitis; Daytime sleepiness; Former cigarette smoker Start: 01-07-2025 End: 01-07-2025 Patient encounter procedure Pulm Lab [facility] Work Phone: [facility] Start: 01-07-2025 End: 01-07-2025 ambulatory Pulm Lab [facility] Work Phone: [facility] Comment on above: Spirometry Start: 01-02-2025 End: 01-02-2025 ambulatory Avni Salcedo Facility:[facility] Start: 10-15-2024 End: 10-15-2024 Refill Avni Jesuson DO Work Phone: [facility] [place] Comment on above: Refill Request Start: 10-09-2024 End: 10-09-2024 ambulatory SHAYLA ROGERS Facility:[facility] Start: 10-09-2024 End: 10-09-2024 Patient encounter procedure Shayla Rogers MD Work Phone: Pulmonary Medicine Comment on above: Asthma, moderate per sistent, poorly-controlled (Primary Dx); H/O sarcoidosis; Former cigarette smoker Start: 10-06-2024 End: 10-06-2024 Refill Avni Ahnrison DO Work Phone: [facility] [place] Comment on above: Refill Request Encounter for screen ing for lung cancer (Primary Dx); Tobacco abuse Insurance Authorizat ion Start: 09-01-2024 End: 09-01-2024 Telephone encounter Avni Ahnrison DO Work Phone: [facility] [place] Comment on above: Results Start: 08-18-2024 End: 08-18-2024 Telephone encounter Avni Ahnrison DO Work Phone: [facility] [place] Comment on above: Insurance Authorizat ion (Hydrocortisone suppository ) Start: 08-15-2024 End: 08-15-2024 Refill Avni Ahnrison DO Work Phone: Family [facility] [place] Comment on above: Patient Question; Re fill Request Start: 08-05-2024 End: 08-08-2024 ambulatory Avni Jesuson DO Work Phone: [facility] [place] Comment on above: Blood work Start: 08-05-2024 End: 08-05-2024 Refill Su Tram Ham WATCHER LOOKOUT TOWER.TRANSFER STATION OPERATOR Work Phone: [facility] [place] Comment on above: Refill Request Start: 07-25-2024 End: 07-28-2024 Refill Su Saundersson WATCHER LOOKOUT TOWER.TRANSFER STATION OPERATOR Work Phone: [facility] [place] Comment on above: Refill Request Start: 07-02-2024 End: 07-03-2024 Telephone encounter Avni Ahnrison DO Work Phone: [facility] [place] Comment on above: Results Start: 06-26-2024 End: 06-26-2024 ambulatory AVNI L SALCEDO Facility:[facility] Start: 06-26-2024 End: 06-26-2024 Telephone encounter Avni Ahnrison DO Work Phone: [facility] [place] Start: 06-24-2024 End: 06-24-2024 Telephone encounter Avni Ahnrison DO Work Phone: [facility] [place] Comment on above: Results Start: 06-23-2024 End: 06-23-2024 Subsequent hospital visit by physician Olesya [facility] (I-Stat) Work Phone: Cat Scan Comment on above: Pulmonary nodule [R9 1.1] Start: 06-23-2024 End: 06-26-2024 ambulatory Portia Andujar PA-C Work Phone: Pulmonary Medicine Start: 06-18-2024 End: 06-18-2024 ambulatory AVNI L SALCEDO Facility:[facility] Start: 06-16-2024 End: 06-16-2024 ambulatory AVNI L SALCEDO Facility:[facility] Start: 06-16-2024 End: 06-16-2024 Subsequent hospital visit by physician Xr [facility] [place] Work Phone: Radiology Comment on above: Pain of left thumb [ M79.645] Start: 06-16-2024 End: 06-16-2024 Patient encounter procedure Avni L Salcedo DO Work Phone: [facility] [place] Comment on above: Pain of left thumb ( Primary Dx); Foot pain, left; Hyperlipidemia, mixed; IFG (impaired fasting glucose); Vitamin D deficiency; Fatigue, unspecified type; Pulmonary nodule; LVH (left ventricular hypertrophy); 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; Vitamin B12 deficiency Start: 06-16-2024 End: 06-16-2024 ambulatory AVNI L SALCEDO Facility:[facility] Start: 06-06-2024 End: 06-09-2024 Refill Avni L Salcedo DO Work Phone: [facility] [place] Comment on above: Refill Request Start: 04-28-2024 End: 04-28-2024 Refill Su Ham WATCHER LOOKOUT TOWER.TRANSFER STATION OPERATOR Work Phone: [facility] Comment on above: Refill Request Start: 04-25-2024 End: 04-25-2024 ambulatory AVNI L SALCEDO Facility:[facility] Start: 04-25-2024 End: 04-25-2024 Patient encounter procedure Joy Shearer APRN.TRANSFER STATION OPERATOR Work Phone: General Surgery Comment on above: Gastroesophageal ref lux disease with esophagitis without hemorrhage (Primary Dx); Diarrhea, unspecified type Start: 04-16-2024 ambulatory AVNI L SALCEDO Facil ity:[facility] Start: 04-16-2024 End: 04-16-2024 Subsequent hospital visit by physician John Chowdhury MD Work Phone: [facility] Endoscopy Comment on above: Screening for colon cancer [Z12.11] Start: 03-05-2024 End: 03-05-2024 ambulatory AVNI L SALCEDO Facility:[facility] Start: 03-05-2024 End: 03-05-2024 Patient encounter procedure Su Ham APRN.TRANSFER STATION OPERATOR Work Phone: [facility] [place] Comment on above: Essential hypertensi on, benign (Primary Dx); Anxiety with depression Start: 02-20-2024 Refill Su Ham WATCHER LOOKOUT TOWER.[facility] Work Phone: [facility] Comment on above: Refill Request Start: 02-08-2024 End: 02-08-2024 Patient encounter procedure John Chowdhury MD Work Phone: General Surgery Comment on above: Gastroesophageal ref lux disease, unspecified whether esophagitis present (Primary Dx); Screening for colon cancer; Hyperlipidemia, mixed; Irritable bowel syndrome with constipation; Diarrhea, unspecified type; Personal history of colonic polyps Start: 02-06-2024 Telephone encounter Su Saunders john PEREZ.TRANSFER STATION OPERATOR Work Phone: [facility] Comment on above: Results Start: 01-31-2024 End: 01-31-2024 Patient encounter procedure Su Ham ANA.[facility] Work Phone: [facility] Comment on above: BENIGN HYPERTENSION (Primary Dx); Hyperlipidemia, mixed; Migraine without aura and without status migrainosus, not intractable; Mild persistent asthma without complication; Chronic allergic rhinitis; New onset type 2 diabetes mellitus (HCC); Screening for colon cancer; Screening for prostate cancer Start: 11-22-2023 Refill Su Hamjohn PEREZ.[facility] Work Phone: [facility] Comment on above: Refill Request Start: 08-08-2023 Refill Avni Crum son DO Work Phone: [facility] Comment on above: Refill Request Start: 07-30-2023 Refill Avni Crum son DO Work Phone: [facility] Comment on above: Refill Request Start: 05-04-2023 Refill Avni Crum son DO Work Phone: [facility] Comment on above: Refill Request Start: 04-06-2023 Refill Tavon douglass APRN.[facility] Work Phone: [facility] Comment on above: Refill Request Start: 01-24-2023 End: 01-24-2023 Subsequent hospital visit by physician Mri [employer] [facility] (I-Stat/1.5t) Work Phone: Radiology Start: 01-19-2023 Refill Su Ham APRN.TRANSFER STATION OPERATOR Work Phone: [facility] Comment on above: Refill Request Start: 01-08-2023 End: 01-08-2023 Patient encounter procedure Avni Salcedo DO Work Phone: [facility] Comment on above: Dyslipidemia (Primar y Dx); New onset type 2 diabetes mellitus (HCC); BENIGN HYPERTENSION; Gastroesophageal reflux disease without esophagitis; Chronic allergic rhinitis; Hyperlipidemia, mixed; Displacement of lumbar intervertebral disc without myelopathy; Cervical disc disorder at C4-C5 level with radiculopathy; Chronic neck pain Start: 11-16-2022 End: 11-16-2022 Emergency department patient visit Dr. Avni Salcedo Work Phone: [facility] Start: 11-08-2022 ambulatory Su Ham APRN.TRANSFER STATION OPERATOR Work Phone: [facility] Start: 11-08-2022 Follow-up encounter Su lopez WATCHER LOOKOUT TOWER.TRANSFER STATION OPERATOR Work Phone: [facility] Comment on above: Follow up Start: 11-06-2022 Telephone encounter Su lopez WATCHER LOOKOUT TOWER.TRANSFER STATION OPERATOR Work Phone: [facility] Comment on above: Results Start: 11-02-2022 End: 11-02-[address] Avni Salcedo Work Phone: [facility] Start: 11-01-2022 End: 11-01-2022 Subsequent hospital visit by physician Xr [facility] Work Phone: Radiology Comment on above: Acute pain of right shoulder [M25.511] Start: 11-01-2022 End: 11-01-2022 Patient encounter procedure Su Ham APRN.TRANSFER STATION OPERATOR Work Phone: [facility] Comment on above: New onset type 2 margareth betes mellitus (HCC) (Primary Dx); Hyperlipidemia, mixed; Acute pain of right shoulder Start: 11-01-2022 End: 11-01-2022 Nursing evaluation of patient and report Claude Amanda RN Work Phone: Endocrinology Comment on above: IFG (impaired fastin g glucose) (Primary Dx) Start: 10-26-2022 Telephone encounter Avni Harrington Blanco normansanjuanita DO Work Phone: [facility] [place] Comment on above: Appointment Start: 10-18-2022 End: 10-18-2022 Subsequent hospital visit by physician Mri [employer] [facility] (I-Stat/1.5t) Work Phone: Radiology Start: 10-17-2022 ambulatory Avni lopez DO Work Phone: [facility] [place] Comment on above: echo Start: 10-17-2022 E-mail encounter fro m caregiver Avni Salcedo DO Work Phone: [facility] Start: 10-16-2022 Telephone encounter Su Saunders son WATCHER LOOKOUT TOWER.TRANSFER STATION OPERATOR Work Phone: [facility] [place] Comment on above: Results Refill Request Start: 10-13-2022 End: 10-13-2022 ambulatory Pulm Lab [facility] Work Phone: [facility] Comment on above: Spirometry Start: 10-13-2022 End: 10-13-2022 Patient encounter procedure Pulm Lab [facility] Work Phone: [facility] Start: 10-11-2022 End: 10-11-2022 Patient encounter procedure Avni Salcedo DO Work Phone: [facility] [place] Comment on above: Dyslipidemia (Primar y Dx); Vitamin D deficiency; IFG (impaired fasting glucose); LVH (left ventricular hypertrophy); Asthma, moderate persistent, well-controlled; Exposure to radon, initial encounter; Wheezing Start: 10-02-2022 Telephone encounter Su Saunders son WATCHER LOOKOUT TOWER.TRANSFER STATION OPERATOR Work Phone: [facility] [place] Comment on above: Results Start: 09-29-2022 End: 09-29-2022 Subsequent hospital visit by physician Ct [facility] (I-Stat) Work Phone: Cat Scan Comment on above: Wheezing [R06.2] Start: 09-22-2022 End: 09-22-2022 Patient encounter procedure Su Ham WATCHER LOOKOUT TOWER.TRANSFER STATION OPERATOR Work Phone: [facility] Comment on above: Bronchitis (Primary Dx); Asthma, moderate persistent, well-controlled; Chronic allergic rhinitis; Wheezing; Exposure to radon, initial encounter Start: 09-22-2022 Telephone encounter Su Saunders john WATCHER LOOKOUT TOWER.TRANSFER STATION OPERATOR Work Phone: [facility] Comment on above: Results Start: 09-22-2022 End: 09-22-2022 Subsequent hospital visit by physician Xr [facility] [place] Work Phone: Radiology Comment on above: Asthma, moderate per sistent, well-controlled [J45.40] Start: 09-18-2022 End: 09-18-2022 Office outpatient visit 25 minutes Elmer Rodriguez WATCHER LOOKOUT TOWER.TRANSFER STATION OPERATOR Work Phone: [place] [facility] Comment on above: Sinobronchitis (Prim rafiq Dx) Start: 08-08-2022 Refill Sumulu barbosa WATCHER LOOKOUT TOWER.TRANSFER STATION OPERATOR Work Phone: [facility] Comment on above: Refill Request Start: 08-04-2022 ambulatory No Pcp Rodrigo Rivas [facility] Start: 07-20-2022 Refill Avni Crum john DO Work Phone: [facility] Comment on above: Refill Request Start: 07-10-2022 End: 07-10-2022 Patient encounter procedure Avni Salcedo DO Work Phone: [facility] Comment on above: Chronic neck pain (P rimary Dx); Cervical radiculopathy; Cervical disc disorder at C4-C5 level with radiculopathy; Attention deficit Start: 06-29-2022 End: 06-29-2022 ambulatory Yash Boothe PT Work Phone: [facility] Comment on above: Neck pain (Primary D x) Start: 06-26-2022 End: 06-26-2022 ambulatory Socorro Garrido SNUFF BOX FINISHER Work Phone: [facility] Comment on above: Neck pain (Primary D x) Start: 06-19-2022 End: 06-19-2022 ambulatory Yash Golias PT Work Phone: [facility] Comment on above: Neck pain (Primary D x) Start: 06-12-2022 End: 06-12-2022 ambulatory Socorro Beckfordba SNUFF BOX FINISHER Work Phone: [facility] Comment on above: Neck pain (Primary D x) Start: 06-07-2022 End: 06-07-2022 ambulatory Socorro Analyba SNUFF BOX FINISHER Work Phone: [facility] Comment on above: Neck pain (Primary D x) Start: 06-07-2022 Telephone encounter Josue Shine DO Work Phone: Radiology Comment on above: image request Start: 06-02-2022 Telephone encounter Avni smith DO Work Phone: [facility] Comment on above: Results Start: 06-01-2022 End: 06-01-2022 Subsequent hospital visit by physician [facility] (I-Stat) Work Phone: Cat Scan Comment on above: Localized swelling, mass and lump, neck [R22.1] Start: 05-30-2022 End: 05-30-2022 ambulatory Yash Golias PT Work Phone: [facility] Comment on above: Neck pain without in jury; Neck pain Start: 05-20-2022 Telephone encounter Avni smith DO Work Phone: [facility] Comment on above: Results Start: 05-19-2022 End: 05-19-2022 Subsequent hospital visit by physician Xr [facility] Work Phone: Radiology Comment on above: Neck pain without in jury [M54.2] Start: 05-19-2022 End: 05-19-2022 Patient encounter procedure Avni Salcedo DO Work Phone: [facility] Comment on above: Localized swelling, mass and lump, neck (Primary Dx); Neck pain without injury; Localized enlarged lymph nodes Start: 04-20-2022 Refill Su barbosa WATCHER LOOKOUT TOWER.TRANSFER STATION OPERATOR Work Phone: Family [facility] [place] Comment on above: Refill Request Start: 04-18-2022 End: 04-18-2022 Office outpatient visit 25 minutes Tammyyenifer Bossk WATCHER LOOKOUT TOWER.TRANSFER STATION OPERATOR Work Phone: [facility] Comment on above: Sinobronchitis (Prim rafiq Dx); Mild intermittent asthma with acute exacerbation; Wheezing Start: 04-18-2022 Refill Avni lopez DO Work Phone: [facility] [place] Comment on above: Refill Request Start: 03-27-2022 Refill Marivel London [employer] PA-C Work Phone: Pulmonary Medicine Comment on above: Refill Request Start: 03-15-2022 ambulatory Marivel Troy [id number] PA-C Work Phone: Pulmonary Medicine Comment on above: I'm having a flare u p. Start: 02-23-2022 Refill Avni lopez DO Work Phone: [facility] Comment on above: Refill Request Start: 01-12-2022 Refill Kim Chavez WATCHER LOOKOUT TOWER.TRANSFER STATION OPERATOR Work Phone: [facility] [place] Comment on above: Refill Request [address] 40mg Start: 12-26-2021 ambulatory Marivel London [employer] PA-C Work Phone: Pulmonary Medicine Comment on above: Asthma problem.. 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) (Primary Dx) Start: 11-11-2021 End: 11-11-2021 Subsequent hospital visit by physician Efrem [facility] [place] Work Phone: Radiology Comment on above: Acute pain of left k nee [M25.562] Start: 10-26-2021 End: 10-26-2021 Subsequent hospital visit by physician Xr [facility] [place] Work Phone: Radiology Comment on above: Cough [R05.9] Start: 07-28-2021 End: 07-28-2021 Subsequent hospital visit by physician Xr [facility] [place] Work Phone: Radiology Comment on above: Foot pain, right [M7 9.671] Start: 09-23-2020 End: 09-23-2020 Subsequent hospital visit by physician Xr [facility] [place] Work Phone: Radiology Comment on above: Suspected COVID-19 v irus infection [Z20.822] Start: 09-30-2018 Patient encounter procedure Suzi [employer] [facility] Start: 02-06-2018 Ambulatory INDRA LEIA Facility :[facility] Start: 08-09-2017 Ambulatory DE SOTO [facility]al[facility] Procedures Date Procedure Procedure Detail Performing Clinician Start: 01-12-2025 Radex ribs uni w/posteroant ch minimum 3 views Elmer White MD Work Phone: Start: 01-07-2025 Nitric oxide gas determination Shayla Rogers MD Work Phone: Start: 01-07-2025 Brncdilat rspse spmtry pre&post-brncdilat admn Shayla Rogers MD Work Phone: Start: 04-16-2024 Gluc bld gluc mntr dev cleared fda spec home use Ramírez Ortiz DO Work Phone: Start: 04-16-2024 Colonoscopy flx dx w/collj spec when pfrmd John Chowdhury MD Work Phone: Start: 04-16-2024 Esophagogastroduodenoscopy transoral diagnostic John Chowdhury MD Work Phone: Start: 04-16-2024 Gluc bld gluc mntr dev cleared fda spec home use Ramírez Ortiz DO Work Phone: Start: 04-16-2024 Colonoscopy John Chowdhury MD Work Phone: Start: 01-24-2023 Mri any jt upper extremity w/o contrast matrl [facility] Provider Start: 11-16-2022 Plain x-ray of humerus Dr. Avni Jesus on Work Phone: Start: 11-02-2022 X-ray of cervical spine Dr. Avni Crum son Work Phone: Start: 11-01-2022 Radex shoulder complete minimum 2 views Sujoes Ham WATCHER [employer].TRANSFER STATION OPERATOR Work Phone: Start: 10-18-2022 Mri spinal canal cervical w/o contrast matrl [facility] Provider Start: 10-13-2022 Brncdilat rspse spmtry pre&post-brncdilat admn Sumulu Ham WATCH[employer].TRANSFER STATION OPERATOR Work Phone: Start: 09-29-2022 Ct thorax w/o contrast material Su Michelle canseco WATCH[employer].TRANSFER STATION OPERATOR Work Phone: Start: 09-22-2022 Radiologic exam chest 2 views Su lopez WATCH[employer].TRANSFER STATION OPERATOR Work Phone: Start: 06-01-2022 Ct soft tissue neck w/contrast material Avni Salcedo DO Work Phone: Start: 05-19-2022 Radex spine cervical 4 or 5 views Avni Salcedo DO Work Phone: Start: 12-12-2021 Urnls dip stick/tablet rgnt auto w/o microscopy M Huber Ludwig PA-C Work Phone: Start: 11-11-2021 Radiologic exam knee complete 4/more views Sumulu Ham WATCH[employer].TRANSFER STATION OPERATOR Work Phone: Start: 10-26-2021 Radiologic exam chest 2 views Kamille barillas WATCH[employer].TRANSFER STATION OPERATOR Work Phone: Start: 07-28-2021 Radex foot complete minimum 3 views Susi Menjivar PA-C Work Phone: Start: 09-23-2020 Radiologic exam chest 2 views Donal elliott WATCHER [employer].TRANSFER STATION OPERATOR Work Phone: Start: 12-27-2016 Colonoscopy NA Oziel SANTILLAN Work Phone: Plan of Treatment Date Care Activity Detail Author Start: 05-10-2031 Urine microalbumin profile [facility] Start: 04-16-2029 Screening for malignant neoplasm of colon [facility] Start: 10-13-2027 LIPID SCREEN LIPID SCREEN [facility] Start: 06-01-2026 LIPID SCREEN LIPID SCREEN [facility] Start: 01-12-2026 Annual PCP Team Chronic Disease Visit Annual PCP Team Chronic Disease Visit [facility] Start: 01-12-2026 Hepatitis B surface antibody level LDL Cholesterol [facility] Start: 01-08-2026 Annual PCP Team Chronic Disease Visit Annual PCP Team Chronic Disease Visit [facility] Start: 01-07-2026 BP Controlled (<130/80) BP Controlled (<130/80) [facility] Start: 10-13-2025 DIABETES SCREEN DIABETES SCREEN [facility] Start: 10-09-2025 BP Controlled (<130/80) BP Controlled (<130/80) [facility] Start: 10-06-2025 BP Controlled (<130/80) BP Controlled (<130/80) [facility] Start: 07-15-2025 End: 07-15-2025 Patient encounter procedure 07/15/2025 2:20 PM EST Office Visit Family Medicine [place] [address] [place], [place] [id number] Avni Salcedo DO [address] [place], [place] [id number] physical Family Medicine [facility] Comment on above: physical Start: 07-15-2025 Hemoglobin A1c measurement HbA1C [facility] Start: 07-06-2025 End: 07-06-2025 Patient encounter procedure Cat Scan Comment on above: Tobacco abuse [Z72.0]; Encounter for scr eening for lung cancer [Z12.2] 9 month LDCT 9 month LCS Start: 06-23-2025 Screening for malignant neoplasm of lung Lung Cancer Screening [facility] Start: 06-18-2025 Hepatitis B surface antibody level LDL Cholesterol [facility] Start: 06-16-2025 Annual PCP Team Chronic Disease Visit Annual PCP Team Chronic Disease Visit [facility] Start: 06-16-2025 BP Controlled (<130/80) BP Controlled (<130/80) [facility] in Start: 06-16-2025 Covid-19 Vaccine ( season) Covid-19 Vaccine ( season) [facility] Comment on above: Postponed from 05/11/2024 (Declined at t his time) Start: 06-16-2025 Diabetic foot examination Diabetic Foot Exam [facility] Start: 05-19-2025 DIABETES SCREEN DIABETES SCREEN [facility] Start: 05-11-2025 Influenza vaccination Influenza Vaccine (Season Ended) [facility] Start: 04-08-2025 End: 04-08-2025 Patient encounter procedure Pulmonary Medicine Comment on above: 3 month follow up Start: 03-09-2025 Influenza vaccination Influenza Vaccine (#1) [facility] Comment on above: Postponed from 05/11/2024 (Declined at t his time) Start: 03-05-2025 Annual PCP Team Chronic Disease Visit Annual PCP Team Chronic Disease Visit [facility] Start: 03-05-2025 BP Controlled (<130/80) BP Controlled (<130/80) [facility] Start: 02-09-2025 End: 02-09-2025 Patient encounter procedure 02/09/2025 2:00 PM EDT Appointment Radiology [address] [place] [address] Splenomegaly, not elsewhere classified [R16.1] Radiology Comment on above: Splenomegaly, not elsewhere classified [ R16.1] Start: 01-31-2025 Hepatitis B surface antibody level LDL Cholesterol [facility] Start: 01-30-2025 End: 01-30-2025 Patient encounter procedure 01/30/2025 8:30 PM EDT Office Visit [facility] [address] [address] Daytime sleepiness [R40.0] [facility] Comment on above: Daytime sleepiness [R40.0] Start: 01-30-2025 Annual PCP Team Chronic Disease Visit Annual PCP Team Chronic Disease Visit [facility] Start: 01-30-2025 Covid-19 Vaccine ( season) Covid-19 Vaccine () [facility] Comment on above: Postponed from 05/11/2023 (Declined at t his time) Start: 01-30-2025 Pneumococcal vaccination Pneumococcal Vaccine (1 of 2 - PCV) [facility] Comment on above: Postponed from 1979 (Declined at t his time) Start: 01-30-2025 Shingrix Vaccine (1 of 2) Shingrix Vaccine (1 of 2) [facility] Comment on above: Postponed from 2023 (Declined at t his time) Start: 01-12-2025 End: 04-13-2025 Amylase [Enzymatic activity/volume] in Serum or Plasma [facility] Comment on above: Expected: 01/12/2025, Expires: Start: 01-12-2025 End: 04-13-2025 Hepatic function 2000 panel - Serum or Plasma [facility] Work Phone: Comment on above: Expected: 01/12/2025, Expires: Start: 01-12-2025 End: 04-13-2025 Lipase [Enzymatic activity/volume] in Serum or Plasma [facility] Comment on above: Expected: 01/12/2025, Expires: Start: 01-08-2025 End: 01-08-2025 Patient encounter procedure 01/08/2025 2:20 PM EDT Office Visit [facility] [address] [place] [id number] Tavon Valencia, WATCHER L[employer]OWER.[facility] [address] [place] [address] 6 mon follow up/meds [facility] Comment on above: 6 mon follow up/meds Start: 01-08-2025 End: 04-09-2025 Hemoglobin A1c in Blood HEMOGLOBIN A1C Lab Routine IFG (impaired fasting glucose) Expected: 01/08/2025, Expires: 04/09/2025 [facility] Comment on above: Expected: 01/08/2025, Expires: Start: 01-08-2025 End: 04-09-2025 Lipid 1996 panel - Serum or Plasma LIPID PANEL, FASTING Lab Routine Hyperlipidemia, mixed Expected: 01/08/2025, Expires: 04/09/2025 [facility] Work Phone: Comment on above: Expected: 01/08/2025, Expires: Start: 01-07-2025 End: 01-07-2025 Patient encounter procedure 01/07/2025 3:00 PM EDT Office Visit Pulmonary Medicine [address] [place] [address] Yoon Magana APRN.TRANSFER STATION OPERATOR [address] [place] [address] 3 MTH F/U ASTHMA Pulmonary Medicine Comment on above: 3 MTH F/U ASTHMA Start: 01-07-2025 End: 01-07-2025 ambulatory [facility]UL[facility] Comment on above: PFT Start: 12-17-2024 End: 12-17-2024 Patient encounter procedure 12/17/2024 3:00 PM EDT Office Visit Family Medicine [place] [address] [place] [address] Catalina Almazan APRN.TRANSFER STATION OPERATOR [address] [place] [address] 6 mon follow up Family Medicine [facility] Comment on above: 6 mon follow up Start: 10-09-2024 End: 10-09-2024 Patient encounter procedure 10/09/2024 2:45 PM EST Office Visit Pulmonary Medicine [address] [place] [address] [place] [address] Shayla Rogers MD [address] [place] [address] f/up dr. Clifford Taylor Pulmonary Medicine Comment on above: f/up dr. Clifford Taylor Start: 10-06-2024 End: 10-06-2024 Patient encounter procedure 10/06/2024 1:00 PM EST Office Visit Pulmonary Medicine [address] [place] [id number] Elmira Farrar APRN.TRANSFER STATION OPERATOR [address] [place] [address] To talk about my last couple of cat scans. Pulmonary Medicine Comment on above: To talk about my last couple of cat scan s. Start: 08-03-2024 Hemoglobin A1c measurement HbA1C [facility] Start: 06-26-2024 End: 06-26-2024 Patient encounter procedure 06/26/2024 3:30 PM EDT Office Visit Cardiology [address] [place] [id number] LVH (left ventricular hypertrophy) [I51.7] Cardiology Comment on above: LVH (left ventricular hypertrophy) [I51. 7] Start: 06-26-2024 End: 09-25-2024 Comprehensive metabolic 2000 panel - Serum or Plasma COMPREHENSIVE METABOLIC PANEL Lab Routine Elevated LFTs Hypokalemia Expected: 06/26/2024, Expires: 09/25/2024 [facility] Work Phone: Comment on above: Expected: 06/26/2024, Expires: Start: 06-23-2024 End: 06-23-2024 Patient encounter procedure 06/23/2024 3:20 PM EDT Appointment Cat Scan [address] [place] [phone] Pulmonary nodule [R91.1] Cat Scan Comment on above: Pulmonary nodule [R91.1] Start: 06-16-2024 End: 06-16-2024 Patient encounter procedure 06/16/2024 3:20 PM EDT Office Visit Family Medicine [place] [address] [place] [address] Avni Salcedo DO [address] [facility] [place] [address] 3-4 months follow Family Medicine [facility] Comment on above: 3-4 months follow Start: 06-16-2024 End: 09-15-2024 25-hydroxyvitamin D3 [Mass/volume] in Serum or Plasma VITAMIN D 25 HYDROXY Lab Routine Vitamin D deficiency Fatigue, unspecified type Expected: 06/16/2024, Expires: 09/15/2024 [facility] Comment on above: Expected: 06/16/2024, Expires: Start: 06-16-2024 End: 09-15-2024 Cobalamin (Vitamin B12) [Mass/volume] in Serum or Plasma VITAMIN B12 Lab Routine IFG (impaired fasting glucose) Fatigue, unspecified type Expected: 06/16/2024, Expires: 09/15/2024 [facility] Comment on above: Expected: 06/16/2024, Expires: Start: 06-16-2024 End: 09-15-2024 Comprehensive metabolic 2000 panel - Serum or Plasma COMPREHENSIVE METABOLIC PANEL Lab Routine Hyperlipidemia, mixed Expected: 06/16/2024, Expires: 09/15/2024 [facility] Comment on above: Expected: 06/16/2024, Expires: Start: 06-16-2024 End: 09-15-2024 Methylmalonate [Moles/volume] in Serum or Plasma METHYLMALONIC ACID Lab Routine Vitamin B12 deficiency Expected: 06/16/2024, Expires: 09/15/2024 [facility] Comment on above: Expected: 06/16/2024, Expires: Start: 06-16-2024 End: 09-15-2024 Thyrotropin [Units/volume] in Serum or Plasma THYROID STIMULATING HORMONE Lab Routine Hyperlipidemia, mixed IFG (impaired fasting glucose) Fatigue, unspecified type Expected: 06/16/2024, Expires: 09/15/2024 [facility] Comment on above: Expected: 06/16/2024, Expires: Start: 06-16-2024 End: 09-15-2024 Thyroxine (T4) free [Mass/volume] in Serum or Plasma T4 FREE/FREE THYROXINE Lab Routine Hyperlipidemia, mixed IFG (impaired fasting glucose) Fatigue, unspecified type Expected: 06/16/2024, Expires: 09/15/2024 [facility] Comment on above: Expected: 06/16/2024, Expires: Start: 06-01-2024 DIABETES SCREEN DIABETES SCREEN [facility] Start: 05-11-2024 Covid-19 Vaccine ( season) Covid-19 Vaccine () [facility] Start: 05-11-2024 Influenza vaccination [facility] Start: 05-10-2024 End: 08-09-2024 Lipid 1996 panel - Serum or Plasma LIPID PANEL BASIC Lab Routine Hyperlipidemia, mixed Expected: 05/10/2024, Expires: 08/09/2024 [facility] Work Phone: Comment on above: Expected: 05/10/2024, Expires: Start: 04-16-2024 End: 04-16-2024 Patient encounter procedure 04/16/2024 9:45 AM EDT Appointment [facility] [address] [place] [address] John Chowdhury MD [address] [address] colon/egd [facility] Comment on above: colon/egd Start: 04-03-2024 Hepatitis B surface antibody level LDL CHOLESTEROL [facility] Start: 03-05-2024 End: 03-05-2024 Patient encounter procedure 03/05/2024 1:20 PM EDT Office Visit Family Medicine [place] [address] [place] [address] Su Ham APRN.TRANSFER STATION OPERATOR [address] [place] [address] 2-3 week b/p recheck Family [facility] Comment on above: 2-3 week b/p recheck Start: 2024 End: 06-01-2024 Comprehensive metabolic 2000 panel - Serum or Plasma COMPREHENSIVE METABOLIC PANEL Lab Routine Hyperlipidemia, mixed Essential hypertension, benign Expected: 2024, Expires: 06/01/2024 [facility] Comment on above: Expected: 2024, Expires: Start: 02-08-2024 End: 02-08-2024 Patient encounter procedure 02/08/2024 11:30 AM EDT Office Visit General Surgery [address] [place] [address] John Chowdhury MD [address] [address] Z12.11 (ICD-10-CM) - Screening for colon cancer General Surgery Comment on above: Z12.11 (ICD-10-CM) - Screening for colon cancer Start: 01-31-2024 End: 05-01-2024 CBC W Auto Differential panel - Blood COMPLETE BLOOD COUNT AND DIFFERENTIAL Lab Routine Hyperlipidemia, mixed Essential hypertension, benign Expected: 01/31/2024, Expires: 05/01/2024 [facility] Comment on above: Expected: 01/31/2024, Expires: Start: 01-31-2024 End: 05-01-2024 Hemoglobin A1c in Blood HEMOGLOBIN A1C Lab Routine New onset type 2 diabetes mellitus (HCC) Expected: 01/31/2024, Expires: 05/01/2024 [facility] Work Phone: Comment on above: Expected: 01/31/2024, Expires: 4 Start: 01-31-2024 End: 05-01-2024 Lipid 1996 panel - Serum or Plasma LIPID PANEL BASIC Lab Routine Hyperlipidemia, mixed Expected: 01/31/2024, Expires: 05/01/2024 [facility] Comment on above: Expected: 01/31/2024, Expires: 4 Start: 01-31-2024 End: 05-01-2024 PSA/PROSTATE SPECIFIC ANTIGEN SCREENING PSA/PROSTATE SPECIFIC ANTIGEN SCREENING Lab Routine Screening for prostate cancer Expected: 01/31/2024, Expires: 05/01/2024 [facility] Comment on above: Expected: 01/31/2024, Expires: 4 Start: 01-09-2024 3 comp foot exam completed DIABETIC FOOT EXAM [facility] Start: 01-09-2024 ANNUAL PCP TEAM CHRONIC DISEASE VISIT ANNUAL PCP TEAM CHRONIC DISEASE VISIT [facility] Start: 01-09-2024 Diabetic foot examination Diabetic Foot Exam [facility] Start: 11-01-2023 ANNUAL PCP TEAM CHRONIC DISEASE VISIT ANNUAL PCP TEAM CHRONIC DISEASE VISIT [facility] Start: 11-01-2023 BP CONTROLLED (<130/80) BP CONTROLLED (<130/80) [facility] Start: 10-13-2023 Hepatitis B surface antibody level LDL CHOLESTEROL [facility] Start: 10-11-2023 ANNUAL PCP TEAM CHRONIC DISEASE VISIT ANNUAL PCP TEAM CHRONIC DISEASE VISIT [facility] Start: 10-11-2023 BP CONTROLLED (<130/80) BP CONTROLLED (<130/80) [facility] Start: 10-04-2023 Hemoglobin A1c measurement HbA1C [facility] Start: 10-04-2023 Hemoglobin A1c/Hemoglobin.total in Blood HBA1C [facility] Start: 09-29-2023 Screening for malignant neoplasm of lung Lung Cancer Screening [facility] Start: 09-22-2023 ANNUAL PCP TEAM CHRONIC DISEASE VISIT ANNUAL PCP TEAM CHRONIC DISEASE VISIT [facility] Start: 09-22-2023 COVID-19 VACCINE (3 - Booster for Pfizer series) COVID-19 VACCINE (3 - Booster for Pfizer series) [facility] Comment on above: Postponed from 07/18/2021 (Declined at t his time) Start: 09-22-2023 COVID-19 VACCINE (3 - Pfizer series) COVID-19 VACCINE (3 - Pfizer series) [facility] Comment on above: Postponed from 07/18/2021 (Declined at t his time) Start: 09-22-2023 HEPATITIS B (1 of 3 - 3-dose series) HEPATITIS B (1 of 3 - 3-dose series) [facility] Comment on above: Postponed from 1973 (Declined at t his time) Start: 09-22-2023 Hepatitis B Vaccine (1 of 3 - 3-dose series) Hepatitis B Vaccine (1 of 3 - 3-dose series) [facility] Comment on above: Postponed from 1973 (Declined at t his time) Start: 09-18-2023 BP CONTROLLED (<130/80) BP CONTROLLED (<130/80) [facility] Start: 07-10-2023 ANNUAL PCP TEAM CHRONIC DISEASE VISIT ANNUAL PCP TEAM CHRONIC DISEASE VISIT [facility] Start: 05-19-2023 ANNUAL PCP TEAM CHRONIC DISEASE VISIT ANNUAL PCP TEAM CHRONIC DISEASE VISIT [facility] Start: 05-11-2023 Covid-19 Vaccine () Covid-19 Vaccine () [facility] Start: 05-11-2023 Influenza vaccination [facility] Start: 04-12-2023 Hemoglobin A1c/Hemoglobin.total in Blood HBA1C [facility] Start: 03-09-2023 Influenza vaccination INFLUENZA (#1) [facility] Comment on above: Postponed from 05/11/2022 (Declined at t his time) Start: 2023 SHINGRIX VACCINE (1 of 2) SHINGRIX VACCINE (1 of 2) [facility] Start: 02-08-2023 End: 04-10-2023 ALBUMIN/CREAT RATIO RND UR ALBUMIN/CREAT RATIO RND UR Lab Routine New onset type 2 diabetes mellitus (HCC) Expected: 02/08/2023, Expires: 04/10/2023 [facility] Work Phone: Comment on above: Expected: 02/08/2023, Expires: 3 Start: 02-08-2023 End: 04-10-2023 Comprehensive metabolic 2000 panel - Serum or Plasma COMP METABOLIC PANEL Lab Routine New onset type 2 diabetes mellitus (HCC) Expected: 02/08/2023, Expires: 04/10/2023 [facility] Work Phone: Comment on above: Expected: 02/08/2023, Expires: 3 Start: 02-08-2023 End: 04-10-2023 Hemoglobin A1c in Blood HGB A1C Lab Routine New onset type 2 diabetes mellitus (HCC) Expected: 02/08/2023, Expires: 04/10/2023 [facility] Work Phone: Comment on above: Expected: 02/08/2023, Expires: 3 Start: 02-08-2023 End: 04-10-2023 Lipid 1996 panel - Serum or Plasma LIPID PANEL BASIC Lab Routine Dyslipidemia Expected: 02/08/2023, Expires: 04/10/2023 [facility] Work Phone: Comment on above: Expected: 02/08/2023, Expires: 3 Start: 01-29-2023 End: 03-31-2023 Hemoglobin A1c in Blood HGB A1C Lab Routine New onset type 2 diabetes mellitus (HCC) Expected: 01/29/2023, Expires: 03/31/2023 [facility] Work Phone: Comment on above: Expected: 01/29/2023, Expires: 3 Start: 12-12-2022 ANNUAL PCP TEAM CHRONIC DISEASE VISIT ANNUAL PCP TEAM CHRONIC DISEASE VISIT [facility] Start: 12-12-2022 BP CONTROLLED (<130/80) BP CONTROLLED (<130/80) [facility] Start: 11-11-2022 ADULT PRE[facility]AR [facility] Comment on above: Postponed from 1992 (Declined at t his time) Start: 11-11-2022 ADULT PREVNAR-13 ADULT PREVNAR-13 [facility] Comment on above: Postponed from 1992 (Declined at t his time) Start: 11-11-2022 PNEUMOCOCCAL (1 - PCV) PNEUMOCOCCAL (1 - PCV) [facility] Comment on above: Postponed from 1979 (Declined at t his time) Start: 11-01-2022 End: 01-01-2023 ALBUMIN/CREAT RATIO RND UR ALBUMIN/CREAT RATIO RND UR Lab Routine New onset type 2 diabetes mellitus (HCC) Expected: 11/01/2022, Expires: 01/01/2023 [facility] Work Phone: Comment on above: Expected: 11/01/2022, Expires: 3 Start: 10-11-2022 End: 12-11-2022 25-hydroxyvitamin D3 [Mass/volume] in Serum or Plasma VITAMIN D 25 HYDROXY Lab Routine Vitamin D deficiency Expected: 10/11/2022, Expires: 12/11/2022 [facility] Work Phone: Comment on above: Expected: 10/11/2022, Expires: 3 Start: 10-11-2022 End: 12-11-2022 Cobalamin (Vitamin B12) [Mass/volume] in Serum or Plasma VITAMIN B12 BLOOD Lab Routine IFG (impaired fasting glucose) Expected: 10/11/2022, Expires: 12/11/2022 [facility] Work Phone: Comment on above: Expected: 10/11/2022, Expires: 3 Start: 10-11-2022 End: 12-11-2022 Comprehensive metabolic 2000 panel - Serum or Plasma COMP METABOLIC PANEL Lab Routine IFG (impaired fasting glucose) Expected: 10/11/2022, Expires: 12/11/2022 [facility] Work Phone: Comment on above: Expected: 10/11/2022, Expires: 3 Start: 10-11-2022 End: 12-11-2022 Hemoglobin A1c in Blood HGB A1C Lab Routine IFG (impaired fasting glucose) Expected: 10/11/2022, Expires: 12/11/2022 [facility] Work Phone: Comment on above: Expected: 10/11/2022, Expires: 3 Start: 10-11-2022 End: 12-11-2022 Lipid 1996 panel - Serum or Plasma LIPID PANEL BASIC Lab Routine Dyslipidemia Expected: 10/11/2022, Expires: 12/11/2022 [facility] Work Phone: Comment on above: Expected: 10/11/2022, Expires: 3 Start: 08-30-2022 BP CONTROLLED (<130/80) BP CONTROLLED (<130/80) [facility] Start: 06-03-2022 End: 08-03-2022 Hepatic function 2000 panel - Serum or Plasma HEPATIC FUNCTION PNL Lab Routine Elevated alanine aminotransferase (ALT) level Expected: 06/03/2022, Expires: 08/03/2022 [facility] Work Phone: Comment on above: Expected: 06/03/2022, Expires: 2 Start: 05-19-2022 End: 07-19-2022 C reactive protein [Mass/volume] in Serum or Plasma [facility] Work Phone: Comment on above: Expected: 05/19/2022, Expires: 2 Start: 05-19-2022 End: 07-19-2022 CBC W Auto Differential panel - Blood [facility] Work Phone: Comment on above: Expected: 05/19/2022, Expires: 2 Start: 05-19-2022 End: 07-19-2022 Comprehensive metabolic 2000 panel - Serum or Plasma [facility] Work Phone: Comment on above: Expected: 05/19/2022, Expires: 2 Start: 05-19-2022 End: 07-19-2022 Thyrotropin [Units/volume] in Serum or Plasma [facility] Work Phone: Comment on above: Expected: 05/19/2022, Expires: 2 Start: 05-11-2022 Influenza vaccination [facility] Start: 12-27-2021 Colonoscopy COLONOSCOPY [facility] Start: 12-27-2021 COLORECTAL CANCER SCREENING COLORECTAL CANCER SCREENING [facility] Start: 12-27-2021 Screening for malignant neoplasm of colon [facility] Start: 10-23-2021 COVID-19 VACCINE (3 - Booster for Pfizer series) COVID-19 VACCINE (3 - Booster for Pfizer series) [facility] Start: 07-18-2021 COVID-19 VACCINE (3 - Booster for Pfizer series) COVID-19 VACCINE (3 - Booster for Pfizer series) [facility] Start: 2018 COLOGUARD (FIT-DNA) COLOGUARD (FIT-DNA) [facility] Start: [address] COLONOGRAPHY [facility] Start: 2018 FECAL OCCULT BLOOD FECAL OCCULT BLOOD [facility] Start: 2018 Screening for malignant neoplasm of colon [facility] Start: 2018 SIGMOIDOSCOPY SIGMOIDOSCOPY [facility] Start: 09-23-2006 Hepatitis B screening URINE ALBUMIN:CREATININE RATIO [facility] Start: 1992 Hepatitis B Vaccine (1 of 3 - 19+ 3-dose series) Hepatitis B Vaccine (1 of 3 - 19+ 3-dose series) [facility] Start: 1992 Pneumococcal Vaccine: 50+ (1 of 2 - PCV) Pneumococcal Vaccine: 50+ (1 of 2 - PCV) [facility] Start: 1992 TWO PNEUMOVAX 5 YEARS APART PRIOR TO AGE 65 (#1) TWO PNEUMOVAX 5 YEARS APART PRIOR TO AGE 65 (#1) [facility] Start: 1983 Glaucoma screening Dilated Retinal Exam [facility] Start: 1983 Hepatitis C antibody, confirmatory test DILATED RETINAL EXAM [facility] Start: 1979 PNEUMOCOCCAL (1 - PCV) PNEUMOCOCCAL (1 - PCV) [facility] Start: 1979 Pneumococcal vaccination [facility] Start: 1973 HEPATITIS B (1 of 3 - 3-dose series) HEPATITIS B (1 of 3 - 3-dose series) [facility] 25-hydroxyvitamin D3 [Mass/volume] in Serum or Plasma VITAMIN D 25 HYDROXY Lab Routine Vitamin D deficiency Fatigue, unspecified type 06/18/2024 4:41 PM EDT [facility] Cobalamin (Vitamin B 12) [Mass/volume] in Serum or Plasma VITAMIN B12 Lab Routine IFG (impaired fasting glucose) Fatigue, unspecified type 06/18/2024 4:41 PM EDT [facility] Comprehensive metabo lic 2000 panel - Serum or Plasma COMPREHENSIVE METABOLIC PANEL Lab Routine Hyperlipidemia, mixed 06/18/2024 4:41 PM EDT [facility] End: 11-05-2025 CT Chest for screening WO contrast CT LUNG SCREEN WO IVCON Radiology Routine Tobacco abuse Encounter for screening for lung cancer 1 Occurrences starting 10/06/2024 until 11/05/2025 [facility] Work Phone: Comment on above: 1 Occurrences starting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 (0.083 %) nebulizer solution Use 3 mL via nebulizer every 4 hours as needed for wheezing/shortness of breath. Use over 5-15minutes. ferrous sulfate (IRON ORAL) Take by mouth once daily. Nebulizer Accessories kit Provide nebulizer kit accessory. ALLERGIES Allergen Reactions Advair Diskus [Flut* Other: See Comments Thrush Codeine GI Upset Cymbalta [Duloxetin* Other: See Comments Tachycardia Flonase [Fluticason* MIGRAINE Gabapentin Mental Status Change Suicidal ideations Qvar [Beclomethason* Other: See Comments Thrush Strattera [Atomoxet* Mental Status Change Mood changes, suicidal thoughts Symbicort [Budesoni* Other: See Comments Thrush Tetanus-Diphtheria * Swelling swelling at site and numbness in arm The medications and allergies were reviewed and reconciled for this patient and deemed current. Lung Cancer Risk Factors: 1.Tobacco Use: Start Age 16, Quit Age: 41, Average packs per day 1, Pack Years 25 2. Passive Smoke Exposure: Yes, as a Child and as an Adult 3. Personal hx of malignancy: No, Type of Cancer: 4. 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 Race: White 6. Education: High School Graduate 7. BMI:Body mass index is 26.86 kg/m . Patient-entered Height: 5'6 Patient-entered Weight: 166 pounds 8. COPD: No 9. Pneumonia in the past 5 years: No 10. Is there a history of lung cancer in a first degree relative? No 11. Is there a history of lung cancer in a non-first degree relative? No 12. Is there a history of any other cancer in a first degree relative? Yes Health Maintenance Immunization History Administered Date(s) Administered COVID-19 original vaccine, age 12+ yr, monovalent ([employer] - PURPLE TOP) 05/02/2021 05/23/2021 tetanus diphtheria pertussis (Tdap) vaccine, age 7+ yr ([employer], BOOSTRIX) 05/10/2021 Colonoscopy: 04/16/2024 Mammogram: DATA REVIEW I have directly visualized the testing documented: Prior Imaging: Last CT/CTA Chest/Lungs CT CHEST WO IVCON Exam End: 06/23/2024 3:30 PM (Final result) Narrative: * * *Final Report* * * DATE OF EXAM: Jun 23 2024 3:30PM [facility] 0541 - CT CHEST WO IVCON / PROCEDURE REASON: Pulmonary nodule * * * * Physician Interpretation * * * * EXAMINATION: CHEST CT WITHOUT CONTRAST CLINICAL HISTORY: Follow-up pulmonary nodules. Technique: Spiral CT acquisition of the chest from the thoracic inlet to the upper abdomen without contrast. MQ: [id number] CT Radiation dose: Integrated Dose-length product (DLP) for this visit = 208 mGy*cm CT Dose Reduction Employed: Automated exposure control(AEC) and iterative recon Comparison: CT chest 09/29/2022, 02/28/2017. RESULT: Limitations: None. Lines, tubes, and devices: None. Lung parenchyma and airways: The central airways are patent. No consolidation. Bilateral lower lobe linear scarring/atelectasis. Scattered calcified granulomas. Stable sub-6 mm solid benign-appearing pulmonary nodules, for example a 0.3 cm posterior left lower lobe nodule (6:161), 0.2 cm posterior left lower lobe nodule (6:273). No new or enlarging pulmonary nodules or solid masses. Pleural space: Mild left apical pleural parenchymal scarring. No pleural thickening or effusion. Lower neck, lymph nodes, and mediastinum: The imaged thyroid gland is normal. No lymphadenopathy in the supraclavicular, axillary, mediastinal, or hilar regions. Heart, pericardium, and thoracic vessels: The thoracic aorta and main pulmonary artery are normal in caliber. The cardiac chambers are normal in size. Coronary artery atherosclerotic calcifications are noted, although the study is not optimized for coronary assessment. No pericardial effusion or thickening. Bones and soft tissues: No destructive bone lesion. Chest wall is unremarkable. Upper abdomen: No acute abnormality in the imaged upper abdomen. Localizer images: No additional findings. Impression: IMPRESSION: Stable, sub-6 mm, benign-appearing pulmonary nodules. No new or enlarging pulmonary nodules. Belt Builder Helper: PSCB Transcribe Date/Time: Jun 26 2024 7:33A Dictated by : MYNOR OSORIO MD This examination was interpreted and the report reviewed and electronically signed by: MYNOR OSORIO MD on Jun 26 2024 7:43AM EST Last CT Chest - Impression Only CT CHEST WO IVCON Exam End: 06/23/2024 3:30 PM (Final result) Impression: IMPRESSION: Stable, sub-6 mm, benign-appearing pulmonary nodules. No new or enlarging pulmonary nodules. ... Last XR Chest - Impression Only XR CHEST 2V FRONTAL/LAT Exam End: 09/22/2022 1:53 PM (Final result) Impression: IMPRESSION: Overall findings unchanged. ... Pulmonary Function Testing: SPIROMETRY - BASELINE AND POST DILATOR ([id number]) - ordered on 10/13/22 No textual results for order. PHYSICAL EXAM: BP 124/78 Pulse 100 Resp 20 Wt 75.5 kg (166 lb 6.4 oz) SpO2 98% BMI 26.86 kg/m Deferred ASSESSMENT and RECOMMENDATIONS: 1. Screening for lung cancer: Six year risk for lung cancer: 0.45% Https://[email or web address]/[place] h/result/male_0.5_yes_unknown http://www.[employer].O'ol Blue/tiny/01sk 4 https://youtu.be/xFaVbGhSbO4 I have determined that the patient is eligible for a low dose CT based on age, absence of signs or symptoms of lung cancer, and total pack years: Yes. The patient and I engaged in shared decision making, including the use of one or more decision aids, to include benefits, harms, follow-up diagnostic testing, over-diagnosis, false positive rate, and total radiation exposure. The patient understands and feels comfortable with it: Yes. The patient was counseled on the importance of adherence to annual LDCT lung cancer screening, impact of comorbidities and ability or willingness to undergo diagnosis and treatment. The patient understands and feels comfortable with it:Yes. 2. Nicotine dependence: The patient was counseled on the importance of maintaining cigarette smoking abstinence - The patient is committed to remaining abstinent from tobacco. Elmira Farrar APRN.CNP NPI #: October 06, 2024 1:28 PM documented in this encounter [facility] 10-06-2024 Telephone encounter Note Prescription Refill Information The patient has been identified by name and date of : Yes Caregiver verified no other encounters exist for this prescription request: Yes Caregiver confirmed with patient/requestor that no other refills are due, in the near future, with this provider at this time: Yes The last office visit in the department: 06/16/24 Does the patient have a future office visit with this provider/department: No Requested Prescriptions Pending Prescriptions Disp Refills budesonide (PULMICORT) 0.5 mg/2 mL nebulizer solution 2 mL 2 Sig: Use 2 mL via nebulizer once daily. ipratropium 20 mcg-albuterol 100 mcg (COMBIVENT RESPIMAT) 20-100 mcg/actuation inhaler 4 g 5 Si puffs QID for asthma albuterol (PROVENTIL) 2.5 mg /3 mL (0.083 %) nebulizer solution 90 mL 2 Sig: Use 3 mL via nebulizer every 4 hours as needed for wheezing/shortness of breath. Use over 5-15minutes. Shreya Coles LPN October 06, 2024 1:22 PM [facility] 10-06-2024 Miscellaneous Notes Prescription Refill Information The patient has been identified by name and date of : Yes Caregiver verified no other encounters exist for this prescription request: Yes Caregiver confirmed with patient/requestor that no other refills are due, in the near future, with this provider at this time: Yes The last office visit in the department: 06/16/24 Does the patient have a future office visit with this provider/department: No Requested Prescriptions Pending Prescriptions Disp Refills budesonide (PULMICORT) 0.5 mg/2 mL nebulizer solution 2 mL 2 Sig: Use 2 mL via nebulizer once daily. ipratropium 20 mcg-albuterol 100 mcg (COMBIVENT RESPIMAT) 20-100 mcg/actuation inhaler 4 g 5 Si puffs QID for asthma albuterol (PROVENTIL) 2.5 mg /3 mL (0.083 %) nebulizer solution 90 mL 2 Sig: Use 3 mL via nebulizer every 4 hours as needed for wheezing/shortness of breath. Use over 5-15minutes. Shreya Coles LPN October 06, 2024 1:22 PM documented in this encounter [facility] 09-01-2024 Telephone encounter Note Pt. informed via my Chart. [facility] 09-01-2024 Miscellaneous Notes Pt. informed via my Chart. Please inform patient that his iron labs and LFTs are improving, just still borderline Continue same regiment without changes to supplements Avni Salcedo DO documented in this encounter [facility] 09-01-2024 Telephone encounter Note Please inform patient that his iron labs and LFTs are improving, just still borderline Continue same regiment without changes to supplements Avni Salcedo DO [facility] 08-18-2024 Telephone encounter Note Images from the original note were not included. Completed PA through covermymeds and comes back not covered. Patient was notified and aware will need to pay out pocket or get otc cream and insert rectally. Shayla Nye MA [facility] 08-18-2024 Miscellaneous Notes Images from the original note were not included. Completed PA through covermymeds and comes back not covered. Patient was notified and aware will need to pay out pocket or get otc cream and insert rectally. Shayla Nye MA documented in this encounter [facility] 08-15-2024 Telephone encounter Note Patient notified labs are ordered. Medication request pending. Analia Lundy RN [facility] 08-15-2024 Miscellaneous Notes Patient notified labs are ordered. Medication request pending. Analia Lundy RN Patient calls to ask if provider will add an order for CBC to current lab orders. He plans to come in within the next hour. When asked patient for reason he reports that he has been having some rectal bleeding again and wants to see if he will be needing a blood transfusion. Patient reports the bleeding started about 1 to 1 1/2 weeks ago. He has filled the toilet bowel with so much bleeding and small clots that you can't see to the bottom of the bowel over the past week or so. No abdomen pain, vomiting, dizziness, fever. Per nurse triage recommended patient go to ER. Patient declines. He reports this has happened in the past and they couldn't figure out what was wrong. He just wants to make sure that he is not approaching the need for a transfusion or would like to get medication before reaching that level. Patient also requests refills as pended. Please review and advise, Analia Lundy RN documented in this encounter [facility] 08-15-2024 Telephone encounter Note Patient calls to ask if provider will add an order for CBC to current lab orders. He plans to come in within the next hour. When asked patient for reason he reports that he has been having some rectal bleeding again and wants to see if he will be needing a blood transfusion. Patient reports the bleeding started about 1 to 1 1/2 weeks ago. He has filled the toilet bowel with so much bleeding and small clots that you can't see to the bottom of the bowel over the past week or so. No abdomen pain, vomiting, dizziness, fever. Per nurse triage recommended patient go to ER. Patient declines. He reports this has happened in the past and they couldn't figure out what was wrong. He just wants to make sure that he is not approaching the need for a transfusion or would like to get medication before reaching that level. Patient also requests refills as pended. Please review and advise, Analia Lundy RN [facility] 08-08-2024 Telephone encounter Note Noted. Thank you, Su Ham APRN.TRANSFER STATION OPERATOR [facility] 08-08-2024 Miscellaneous Notes Noted. Thank you, Su Ham APRN.TRANSFER STATION OPERATOR FYI See [employer] message. documented in this encounter [facility] 08-05-2024 Telephone encounter Note Prescription Refill Information The patient has been identified by name and date of : Yes Caregiver verified no other encounters exist for this prescription request: Yes Caregiver confirmed with patient/requestor that no other refills are due, in the near future, with this provider at this time: Yes The last office visit in the department: 03/05/2024 Does the patient have a future office visit with this provider/department: No Requested Prescriptions Pending Prescriptions Disp Refills montelukast (SINGULAIR) 10 mg tablet [Pharmacy Med Name: Montelukast Sodium Oral Tablet 10 MG] 90 tablet 0 Sig: TAKE 1 TABLET BY MOUTH AT BEDTIME Concepcion Rushing LPN August 05, 2024 11:56 AM [facility] 08-05-2024 Miscellaneous Notes Prescription Refill Information The patient has been identified by name and date of : Yes Caregiver verified no other encounters exist for this prescription request: Yes Caregiver confirmed with patient/requestor that no other refills are due, in the near future, with this provider at this time: Yes The last office visit in the department: 03/05/2024 Does the patient have a future office visit with this provider/department: No Requested Prescriptions Pending Prescriptions Disp Refills montelukast (SINGULAIR) 10 mg tablet [Pharmacy Med Name: Montelukast Sodium Oral Tablet 10 MG] 90 tablet 0 Sig: TAKE 1 TABLET BY MOUTH AT BEDTIME Concepcion Rushing LPN August 05, 2024 11:56 AM documented in this encounter [facility] 08-05-2024 Telephone encounter Note SUZE melendez. [facility] 07-25-2024 Telephone encounter Note Prescription Refill Information The patient has been identified by name and date of : Yes Caregiver verified no other encounters exist for this prescription request: Yes Caregiver confirmed with patient/requestor that no other refills are due, in the near future, with this provider at this time: Yes The last office visit in the department: 03/05/2024 Does the patient have a future office visit with this provider/department: No Requested Prescriptions Pending Prescriptions Disp Refills lisinopril (PRINIVIL) 20 mg tablet 90 tablet 1 Sig: Take 1 tablet by mouth once daily. Concepcion Rushing LPN July 25, 2024 1:25 PM [facility] 07-25-2024 Miscellaneous Notes Prescription Refill Information The patient has been identified by name and date of : Yes Caregiver verified no other encounters exist for this prescription request: Yes Caregiver confirmed with patient/requestor that no other refills are due, in the near future, with this provider at this time: Yes The last office visit in the department: 03/05/2024 Does the patient have a future office visit with this provider/department: No Requested Prescriptions Pending Prescriptions Disp Refills lisinopril (PRINIVIL) 20 mg tablet 90 tablet 1 Sig: Take 1 tablet by mouth once daily. Concepcion Rushing LPN July 25, 2024 1:25 PM documented in this encounter [facility] 07-03-2024 Telephone encounter Note Pt called and is notified of providers results. Pt voices understanding. Agata Deluca RN [facility] 07-03-2024 Miscellaneous Notes Pt called and is notified of providers results. Pt voices understanding. Agata Deluca RN Please inform patient that overall his echo is stable, no concerns Avni Salcedo DO documented in this encounter [facility] 07-02-2024 Telephone encounter Note Please inform patient that overall his echo is stable, no concerns Avni Salcedo DO [facility] 06-26-2024 Telephone encounter Note Spoke with pt gave information provided. Pt voices understanding. [facility] 06-26-2024 Miscellaneous Notes Spoke with pt gave information provided. Pt voices understanding. Please inform patient that his recent labs show that his LFTs are slightly high and potassium is slightly low. Need to avoid alcohol as well as make sure taking in <3000 mg a day of tylenol. Recheck labs in 2-3 weeks Avni Salcedo DO documented in this encounter [facility] 06-26-2024 Telephone encounter Note Please inform patient that his recent labs show that his LFTs are slightly high and potassium is slightly low. Need to avoid alcohol as well as make sure taking in <3000 mg a day of tylenol. Recheck labs in 2-3 weeks Avni Salcedo DO [facility] 06-24-2024 Telephone encounter Note Patient active MyChart. Patient notified via [employer] message. Liz Alvarenga MA [facility] 06-24-2024 Miscellaneous Notes Patient active MyChart. Patient notified via [employer] message. Liz Alvarenga MA Please inform patient that xray of his left foot shows IMPRESSION: No fracture or dislocation. 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 The remaining joint spaces are maintained. No osseous erosion. Use of topical NSAID such as voltaren on toe joint up to 2-3 times a day, pea sized amount, as needed for pain recommended For hand xray results IMPRESSION: No acute fracture or dislocation. 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 Remaining joint spaces are preserved. No osseous erosion. Can also use voltaren as above on hand units up to 2-3 times a day on small joint area of pain Avni Salcedo DO documented in this encounter [facility] 06-24-2024 Telephone encounter Note Please inform patient that xray of his left foot shows IMPRESSION: No fracture or dislocation. 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 The remaining joint spaces are maintained. No osseous erosion. Use of topical NSAID such as voltaren on toe joint up to 2-3 times a day, pea sized amount, as needed for pain recommended For hand xray results IMPRESSION: No acute fracture or dislocation. 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 Remaining joint spaces are preserved. No osseous erosion. Can also use voltaren as above on hand units up to 2-3 times a day on small joint area of pain Avni Salcedo DO [facility] 06-23-2024 History of Presen t illness Narrative Radiology Service Progress Note PATIENT NAME: Jake Chairez DATE OF SERVICE: June 23, 2024 TIME: 3:59 PM PATIENT IDENTITY VERIFICATION COMPLETED USING TWO (2) IDENTIFIERS: Name and Date of confirmed by patient verbally. FALL SCREENING: Has the patient had 2 falls in the last year or 1 fall with injury or currently using an Ambulatory Assistive Device (Walker, Cane, Wheelchair, Crutches, etc.)? No PATIENT GENDER DATA: Male PATIENT RELEVANT IMPLANT DATA REVIEWED: Yes PATIENT PRESENTS WITH AN IMPLANTABLE OR ATTACHED CASE MANAGEMENT ASSISTANT: No RADIOLOGY DEPARTMENT: CT; Exam(s) Completed: Chest PERIPHERAL IV DATA: Not applicable SIGNED BY: RT Rico(R) June 23, 2024 3:59 PM documented in this encounter [facility] 06-23-2024 Note HNO ID: [id number] Author: KELSEY MORTENSEN RT(R) Service: ? Author Type: Waste Cotton Cleaner Type: Progress Notes Filed: 06/23/2024 15:59 Note Text: Radiology Service Progress Note PATIENT NAME: Jake Chairez DATE OF SERVICE: June 23, 2024 TIME: 3:59 PM PATIENT IDENTITY VERIFICATION COMPLETED USING TWO (2) IDENTIFIERS: Name and Date of confirmed by patient verbally. FALL SCREENING: Has the patient had 2 falls in the last year or 1 fall with injury or currently using an Ambulatory Assistive Device (Walker, Cane, Wheelchair, Crutches, etc.)? No PATIENT GENDER DATA: Male PATIENT RELEVANT IMPLANT DATA REVIEWED: Yes PATIENT PRESENTS WITH AN IMPLANTABLE OR ATTACHED CASE MANAGEMENT ASSISTANT: No RADIOLOGY DEPARTMENT: CT; Exam(s) Completed: Chest PERIPHERAL IV DATA: Not applicable SIGNED BY: RT Rico(Jeremías) June 23, 2024 3:59 PM [facility] 06-23-2024 Note Patient Outreach (JESSICA OSMANMN) JAKE CHAIREZ ([id number]) 1975 M Date Time Provider Department 06/23/24 PORTIA ANDUJAR During your visit today, we recorded the following information about you: Allergies As of Date: 06/23/2024 Noted Allergy Reaction ADVAIR DISKUS (FLUTICASONE PROPIO*05/18/2017 14 - Other: See Comments Comments: Thrush CODEINE 07/31/2005 8 - GI Upset CYMBALTA (DULOXETINE) 04/21/2020 14 - Other: See Comments Comments: Tachycardia FLONASE (FLUTICASONE PROPIONATE) 07/31/2005 Comments: MIGRAINE GABAPENTIN 10/24/2017 1 - Mental Status Change Comments: Suicidal ideations QVAR (BECLOMETHASONE DIPROPIONATE)05/18/2017 14 - Other: See Comments Comments: Thrush STRATTERA (ATOMOXETINE) 07/26/2022 1 - Mental Status Change Comments: Mood changes, suicidal thoughts SYMBICORT (BUDESONIDE-FORMOTEROL) 05/18/2017 14 - Other: See Comments Comments: Thrush TETANUS-DIPHTHERIA TOXOIDS-TD 06/22/2006 7 - Swelling Comments: swelling at site and numbness in arm Date Reviewed: 06/16/2024 Reviewed by: Ana Almanza LPN - Fully Assessed Visit Diagnosis:Tobacco abuse [Z72.0] Order(s):CONSULT [facility] [[id number]] Order #: [id number]: 1 FUTURE Prescriptions as of 06/26/2024 - cyclobenzaprine (FLEXERIL) 10 mg tablet Take 1 tablet by mouth three times a day as needed. - promethazine (PHENERGAN) 25 mg tablet Take 1 tablet by mouth every 6 hours as needed. - famotidine (PEPCID) 40 mg tablet Take 1 tablet by mouth at bedtime as needed. - atorvastatin (LIPITOR) 20 mg tablet Take 1 tablet by mouth daily at bedtime. For cholesterol. Take with 40 mg tablet to equal 60 mg daily - atorvastatin (LIPITOR) 40 mg tablet Take 1 tablet by mouth daily at bedtime. For cholesterol. Take with 20 mg tablet to equal 60 mg daily - HYDROcodone-Ibuprofen (VICOPROFEN) 7.5-200 mg per tablet 1 tablet every 8 hours as needed for pain. - fexofenadine (TONYA) 180 mg tablet Take 1 tablet by mouth once daily as needed. - lisinopril (PRINIVIL) 20 mg tablet Take 1 tablet by mouth once daily. - ipratropium-albuterol (DUONEB) 0.5 mg-3 mg(2.5 mg base)/3 mL nebu Inhale 3 mL as instructed every 6 hours as needed (wheezing/shortness of breath.). - ipratropium 20 mcg-albuterol 100 mcg (COMBIVENT RESPIMAT) 20-100 mcg/actuation inhaler 1 puffs QID for asthma - montelukast (SINGULAIR) 10 mg tablet Take 1 tablet by mouth daily at bedtime. - potassium chloride (K-TAB) 10 mEq tablet Take 1 tablet by mouth daily with breakfast. - omeprazole (PRILOSEC) 40 mg capsule Take 1 capsule by mouth once daily. - hydrocortisone (HEMORRHOIDAL HC) 25 mg suppository 1 Suppository by RECTAL route twice daily. - rizatriptan (MAXALT-EXCEPTIONAL STUDENT EDUCATION AIDE) 10 mg disintegrating tablet Take 1 tablet by mouth as needed for migraine headache (see administration instructions). May repeat in 2 hours if needed - Cholecalciferol, Vitamin D3, 125 mcg (5,000 unit) cap Take 1 capsule by mouth once daily. - budesonide (PULMICORT) 0.5 mg/2 mL nebulizer solution Use 2 mL via nebulizer once daily. - albuterol (PROVENTIL) 2.5 mg /3 mL (0.083 %) nebulizer solution Use 3 mL via nebulizer every 4 hours as needed for wheezing/shortness of breath. Use over 5-15minutes. - Nebulizer Accessories kit Provide nebulizer kit accessory. - ferrous sulfate (IRON ORAL) Take by mouth once daily. 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 [K58.9] Mild persistent asthma without complication [J4* CARPAL TUNNEL SYNDROME [G56.00] DEPRESSION [F32.89] PERS HX COLONIC POLYPS [Z86.0100] COMMON MIGRAINE [346.1] 10/22/2007 NON-ALCOHOLIC STEATOHEPATITIS [K76.9] 07/16/2007 MIGRAINE NOS W/O MENTN INTRACTABLE [G43.909] 10/22/2007 CALCULUS OF KIDNEY [N20.0] 04/21/2008 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 [facility] 06-16-2024 History of Presen t illness Narrative Radiology Service Progress Note PATIENT NAME: Jake Chairez DATE OF SERVICE: June 16, 2024 TIME: 4:41 PM PATIENT IDENTITY VERIFICATION COMPLETED USING TWO (2) IDENTIFIERS: Name and Date of confirmed by patient verbally. FALL SCREENING: Has the patient had 2 falls in the last year or 1 fall with injury or currently using an Ambulatory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 daily. 30 Suppository 0 omeprazole (PRILOSEC) 40 mg capsule Take 1 capsule by mouth once daily 90 capsule 0 lisinopril (PRINIVIL) 20 mg tablet Take 1 tablet by mouth once daily. 90 tablet 1 cyclobenzaprine (FLEXERIL) 10 mg tablet Take 1 tablet by mouth three times daily as needed. 270 tablet 0 fexofenadine (TONYA) 180 mg tablet Take 1 tablet by mouth once daily as needed. 90 tablet 1 promethazine (PHENERGAN) 25 mg tablet Take 1 tablet by mouth every 6 hours as needed. 90 tablet 1 Cholecalciferol, Vitamin D3, 125 mcg (5,000 unit) cap Take 1 capsule by mouth once daily. 90 capsule 3 potassium chloride (K-TAB) 10 mEq tablet Take 1 tablet by mouth daily with breakfast. 90 tablet 1 methylPREDNISolone (MEDROL, KIMMIE,) 4 mg Dose-Pack Take as directed 21 tablet 0 triamcinolone acetonide (KENALOG) 0.1 % cream APPLY SPARINGLY TO AFFECTED AREA TWICE DAILY NEEDED FOR RASH/ITCHING 45 g 2 atorvastatin (LIPITOR) 40 mg tablet Take 1 tablet by mouth daily at bedtime. For cholesterol. Take with 20 mg tablet to equal 60 mg daily 90 tablet 3 atorvastatin (LIPITOR) 20 mg tablet Take 1 tablet by mouth daily at bedtime. For cholesterol. Take with 40 mg tablet to equal 60 mg daily 90 tablet 3 ipratropium-albuterol (DUONEB) 0.5 mg-3 mg(2.5 mg base)/3 mL nebu Inhale 3 mL as instructed every 6hours as needed (wheezing/shortness of breath.). 360 Vial 3 ferrous sulfate (IRON ORAL) Take by mouth once daily. desonide (TRIDESILON) 0.05 % cream Apply 1 application to affected area twice daily as needed. For mouth cheilitis lesion 30 g 1 No current facility-administered medications for this visit. TWO PNEUMOVAX 5 YEARS APART PRIOR TO AGE 63(1) Never done COVID-19 VACCINE(3 - Booster for Pfizer series) due on 10/23/2021 COLORECTAL CANCER SCREENING due on 12/27/2021 REVIEW OF SYMPTOMS: General: denies fatigue, unusual weight loss or gain, fevers, chills. Energy Level: good. Exercise depends on back, tries walk/ hike. How often/long: occasional. Sleep: hours: average 6-7, rested Diet/Any routine health measures: not so much. Tobacco use: none. Caffeine use: off energy drinks, 2-3 Pepsi/ day. ETOH use: occasional 7-8/ week rum. Marijuana use: none. Illicit drug use: none. Eyes: denies change in vision, glaucoma, cataracts. Bifocals with correction for astigmatismglasses/contacts. Last eye exam: a few months. EENT: See HPI, intermittent sinusitis, asthma. denies recurrent sinus infection, unusual nasal drainage, hoarsemess, sore throat, or recurrent sore in mouth or tongue. - dysphagia. Cardiovascular: denies chest pain , SOB, palpitation, irregular or racing heart beats, orthopnea, leg swelling, history of rheumatic fever or prior heart conditions Respiratory: see HPI. denies unusual cough, SOB, wheezing, history of recurrent bronchitis, pneumonia or tuberculosis. Denies day time drowsiness. +Snoring. no sleep apnea. No daytime drowsiness. GI: See HPI: fatty liver, colon polyps, hx diarrhea. denies difficulty swallowing, nausea, vomiting, change in appetite. No change in bowel habits. Denies constipation, diarrhea, rectal bleeding or hemorrhoids, incontinence. No history of GERD, PUD, jaundice/hepatitis, GB disease, diverticulosis, colorectal cancer, hernias. Kidney/Bladder: Kidney stones. See HPI. Denies frequency, burning. Nocturia 0, incontinence 0. No history of kidney stones, recurrent UTI or kidney infection. No hx prostatis. Skin: denies unusual rashes. No history of skin cancer, bleeding/changing moles, or unusual skin lesions. Hx of mole biopsies but all WNL. Neurologic: See HPI:, CTS ( no surgery), rare migraines. Denies recurrent HARRISON, change in vision, hearing or smell, tremors, unusual weakness, loss of sensation, or difficulty with balance or gait. No history of epilepsy/convulsions, migraine, head/spinal injuries, or stroke/TIA. Psychiatric: Depression and anxiety but not in years. denies unusual worry, moodiness, depression, suicidal ideation or unusual disturbance in relationships. No history of psychiatric illness. Endocrine: see HPI. denies unusual thirst, hunger, excessive urination, change in skin or hair texture, emotional lability. No history of thryoid, pituitary or hormonal problems. Hematologic: denies unusual bleeding, bruising, or history of anemia or blood transfusion. Denies hx blood clots. Infections: denies risk factors for HIV, hepatitis or history of unusual infection. Immunizations are up to date. Musculoskeletal: denies unusual stiffness, muscles aches, joint pain, or swelling. Denies recurrentsprain or disruption of joints, debilitating arthritis, gout, or other musculoskeletal disease. SeeHPI for back/ spine. EXAM: BP 122/74 Pulse 107 Resp 16 Ht 166 cm (5' 5.35) Wt 74.8 kg (165 lb) SpO2 97% BMI 27.16kg/m Pleasant overweight man in a kilt in no acute distress. Alert and oriented all spheres. Normal affect and cognition. Speech normal. No deficits to learning or comprehension. Respirations: regular, unlabored Color: pink to lips and nailbeds Skin: warm, dry, no unusual rashes or lesions Head: Normocephalic Eyes: sclerae and conjunctivae without injection or exudate, PERRLA, EOMI, corneal light reflex symmetric bilaterally. Peripheral vision to 90 degrees bilaterally. Ears: TM's and ear canals are clear bilaterally with normal landmarks, no swelling or deformity external ear Nose/Sinuses: Nose patent. No turbinate swelling. No active exudate. Maxillary and frontal sinuses nontender to percussion. Oropharynx: Lips, mucosa, and tongue free from lesions. Teeth are in good repair. Gums without inflammation. Oropharynx no exudate or injection. No tonsillar hypertrophy. Mallampati 1/4. Neck: Neck supple, no cervical lymphadenopathy; thyroid without mass or tenderness. Carotids: right2/4 withoutbruit, left 2/4 withoutbruit Chest: normally shaped, equal expansion with breaths.. Lungs: Lungs clear to auscultation and percussion. No crackles or wheezes. Heart: RRR without murmur, gallop, or rubs. S1 and S2 normal. Abd soft, nontender, normoactive bowel sounds throughout, no mass, no organomegaly. Penis circumcised. Testicles descended without nodules. No hernias. Prostate: deferred back FROM, no abnormal curvature. Able to touch toes. Extremities well formed, FROM and strength, no clubbing cyanosis or edema. Neuro grossly intact. Normal gait and balance. Able to squat without difficulty. DTR's 2+/4 symmetric upper and lower bilaterally. Romberg is negative. Hearing intact- see audiometry. ASSESSMENT/PLAN: 1. 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 FALL SCREENING: Has the patient had 2 falls in the last year or 1 fall with injury or currently using an Ambulatory Assistive Device (Walker, Cane, Wheelchair, Crutches, etc.)? No PATIENT GENDER DATA: Male PATIENT RELEVANT IMPLANT DATA REVIEWED: Not Applicable RADIOLOGY DEPARTMENT: General X-ray: Exam(s) Completed: Lower Extremity X- Ray(s): Knee, AP / Lat / [place]ne / Merchant Left and Wt. Bearing PERIPHERAL IV DATA: Not applicable SIGNED BY: RT Evelio(R) November 11, 2021 2:54 PM documented in this encounterC[facility]11-18-[facility]21 History of Present illness Narrative* Joya Galvan RT(R) - 07/28/2021 6:30 PM EST Radiology Service Progress Note PATIENT NAME: Jake Chairez DATE OF SERVICE: July 28, 2021 TIME: 6:27 PM PATIENT IDENTITY VERIFICATION COMPLETED USING TWO (2) IDENTIFIERS: Name and Date of confirmedby patient verbally. FALL SCREENING: Has the patient had 2 falls in the last year or 1 fall with injury or currently using an Ambulatory Assistive Device (Walker, Cane, Wheelchair, Crutches, etc.)? No PATIENT GENDER DATA: Male PATIENT RELEVANT IMPLANT DATA REVIEWED: Yes RADIOLOGY DEPARTMENT: General X-ray: Exam(s) Completed: Lower Extremity X- Ray(s): Ankle, Right and Wt. Bearing and Foot, Right and Wt. Bearing PERIPHERAL IV DATA: Not applicable SIGNED BY: SURESH Mosley) July 28, 2021 6:27 PM documented in this encounterC[facility]14[facility] History of Present illness Narrative* Kalyani Gordon Tech (Tech) - 09/23/2020 6:50 PM EST Radiology Service Progress Note PATIENT NAME: Jake Chairez DATE OF SERVICE: September 23, 2020 TIME: 6:48 PM PATIENT IDENTITY VERIFICATION COMPLETED USING TWO (2) IDENTIFIERS: Name and Date of confirmedby patient verbally. FALL SCREENING: Has the patient had 2 falls in the last year or 1 fall with injury or currently using an Ambulatory Assistive Device (Walker, Cane, Wheelchair, Crutches, etc.)? No PATIENT GENDER DATA: Male PATIENT RELEVANT IMPLANT DATA REVIEWED: Not Applicable RADIOLOGY DEPARTMENT: General X-ray: Exam(s) Completed: Chest X-Ray PERIPHERAL IV DATA: Not applicable SIGNED BY: Rhea Bliss September 23, 2020 6:48 PM documented in this encounterC[facility]12[facility] History of Past illness Narrative* Problem Noted Date Resolved Date Benign neoplasm of colon 08/20/2006 007 ABDOMINAL PAIN( Right Upper Quadrant) 07/17/2006 03/05/2009 Unspecified asthma, with status asthmaticus 03/28/2007 Migraine without aura 10/22/2007 documented as of this encounter (statuses as of 12/12/2021) [facility] of Past illness Narrative* Problem Noted Date Resolved Date Benign neoplasm of colon 08/20/2006 007 ABDOMINAL PAIN( Right Upper Quadrant) 07/17/2006 03/05/2009 Unspecified asthma, with status asthmaticus 03/28/2007 Migraine without aura 10/22/2007 documented as of this encounter (statuses as of 12/26/2021) [facility] of Past illness Narrative* Problem Noted Date Resolved Date Benign neoplasm of colon 08/20/2006 007 ABDOMINAL PAIN( Right Upper Quadrant) 07/17/2006 03/05/2009 Unspecified asthma, with status asthmaticus 03/28/2007 Migraine without aura 10/22/2007 documented as of this encounter (statuses as of 01/13/2022) [facility] of [facility] illness Narrative* Problem Noted Date Resolved Date Benign neoplasm of colon 08/20/2006 007 ABDOMINAL PAIN( Right Upper Quadrant) 07/17/2006 03/05/2009 Unspecified asthma, with status asthmaticus 03/28/2007 Migraine without aura 10/22/2007 documented as of this encounter (statuses as of 01/13/2022) [facility] of [facility] illness Narrative* Problem Noted Date Resolved Date Benign neoplasm of colon 08/20/2006 007 ABDOMINAL PAIN( Right Upper Quadrant) 07/17/2006 03/05/2009 Unspecified asthma, with status asthmaticus 03/28/2007 Migraine without aura 10/22/2007 documented as of this encounter (statuses as of 01/13/2022) [facility] of [facility] illness Narrative* Problem Noted Date Resolved Date Benign neoplasm of colon 08/20/2006 007 ABDOMINAL PAIN( Right Upper Quadrant) 07/17/2006 03/05/2009 Unspecified asthma, with status asthmaticus 03/28/2007 Migraine without aura 10/22/2007 documented as of this encounter (statuses as of 02/23/2022) [facility] Narrative* Problem Noted Date Resolved Date Benign neoplasm of colon 08/20/2006 007 ABDOMINAL PAIN( Right Upper Quadrant) 07/17/2006 03/05/2009 Unspecified asthma, with status asthmaticus 03/28/2007 Migraine without aura 10/22/2007 documented as of this encounter (statuses as of 03/16/2022) [facility] illness Narrative* Problem Noted Date Resolved Date Benign neoplasm of colon 08/20/2006 007 ABDOMINAL PAIN( Right Upper Quadrant) 07/17/2006 03/05/2009 Unspecified asthma, with status asthmaticus 03/28/2007 Migraine without aura 10/22/2007 documented as of this encounter (statuses as of 03/28/2022) [place] [address]-11-2006 History of Past illness Narrative* Problem Noted Date Resolved Date Benign neoplasm of colon 08/20/2006 007 ABDOMINAL PAIN( Right Upper Quadrant) 07/17/2006 03/05/2009 Unspecified asthma, with status asthmaticus 03/28/2007 Migraine without aura 10/22/2007 documented as of this encounter (statuses as of 04/18/2022) [facility] illness Narrative* Problem Noted Date Resolved Date Benign neoplasm of colon 08/20/2006 007 ABDOMINAL PAIN( Right Upper Quadrant) 07/17/2006 03/05/2009 Unspecified asthma, with status asthmaticus 03/28/2007 Migraine without aura 10/22/2007 documented as of this encounter (statuses as of 04/19/2022) [facility] of [facility] illness Narrative* Problem Noted Date Resolved Date Benign neoplasm of colon 08/20/2006 007 ABDOMINAL PAIN( Right Upper Quadrant) 07/17/2006 03/05/2009 Unspecified asthma, with status asthmaticus 03/28/2007 Migraine without aura 10/22/2007 documented as of this encounter (statuses as of 04/20/2022) [facility] Narrative* Problem Noted Date Resolved Date Benign neoplasm of colon 08/20/2006 007 ABDOMINAL PAIN( Right Upper Quadrant) 07/17/2006 03/05/2009 Unspecified asthma, with status asthmaticus 03/28/2007 Migraine without aura 10/22/2007 documented as of this encounter (statuses as of 05/19/2022) [facility] Narrative* Problem Noted Date Resolved Date Benign neoplasm of colon 08/20/2006 007 ABDOMINAL PAIN( Right Upper Quadrant) 07/17/2006 03/05/2009 Unspecified asthma, with status asthmaticus 03/28/2007 Migraine without aura 10/22/2007 documented as of this encounter (statuses as of 05/24/2022) [facility] Narrative* Problem Noted Date Resolved Date Benign neoplasm of colon 08/20/2006 007 ABDOMINAL PAIN( Right Upper Quadrant) 07/17/2006 03/05/2009 Unspecified asthma, with status asthmaticus 03/28/2007 Migraine without aura 10/22/2007 documented as of this encounter (statuses as of 05/30/2022) [facility] Narrative* Problem Noted Date Resolved Date Benign neoplasm of colon 08/20/2006 007 ABDOMINAL PAIN( Right Upper Quadrant) 07/17/2006 03/05/2009 Unspecified asthma, with status asthmaticus 03/28/2007 Migraine without aura 10/22/2007 documented as of this encounter (statuses as of 06/02/2022) [facility] Narrative* Problem Noted Date Resolved Date Benign neoplasm of colon 08/20/2006 007 ABDOMINAL PAIN( Right Upper Quadrant) 07/17/2006 03/05/2009 Unspecified asthma, with status asthmaticus 03/28/2007 Migraine without aura 10/22/2007 documented as of this encounter (statuses as of 06/08/2022) [facility] Narrative* Problem Noted Date Resolved Date Benign neoplasm of colon 08/20/2006 007 ABDOMINAL PAIN( Right Upper Quadrant) 07/17/2006 03/05/2009 Unspecified asthma, with status asthmaticus 03/28/2007 Migraine without aura 10/22/2007 documented as of this encounter (statuses as of 06/13/2022) [facility]12-11-2006 History of Past illness Narrative* Problem Noted Date Resolved Date Benign neoplasm of colon 08/20/2006 007 ABDOMINAL PAIN( Right Upper Quadrant) 07/17/2006 03/05/2009 Unspecified asthma, with status asthmaticus 03/28/2007 Migraine without aura 10/22/2007 documented as of this encounter (statuses as of 06/19/2022) [facility]12[facility]2006 History of Past illness Narrative* Problem Noted Date Resolved Date Benign neoplasm of colon 08/20/2006 007 ABDOMINAL PAIN( Right Upper Quadrant) 07/17/2006 03/05/2009 Unspecified asthma, with status asthmaticus 03/28/2007 Migraine without aura 10/22/2007 documented as of this encounter (statuses as of 06/26/2022) [facility]12[facility]2006 History of Past illness Narrative* Problem Noted Date Resolved Date Benign neoplasm of colon 08/20/2006 007 ABDOMINAL PAIN( Right Upper Quadrant) 07/17/2006 03/05/2009 Unspecified asthma, with status asthmaticus 03/28/2007 Migraine without aura 10/22/2007 documented as of this encounter (statuses as of 06/30/2022) [facility] History of Past illness Narrative* Problem Noted Date Resolved Date Benign neoplasm of colon 08/20/2006 007 ABDOMINAL PAIN( Right Upper Quadrant) 07/17/2006 03/05/2009 Unspecified asthma, with status asthmaticus 03/28/2007 Migraine without aura 10/22/2007 documented as of this encounter (statuses as of 07/11/2022) [facility] History of Past illness Narrative* Problem Noted Date Resolved Date Benign neoplasm of colon 08/20/2006 007 ABDOMINAL PAIN( Right Upper Quadrant) 07/17/2006 03/05/2009 Unspecified asthma, with status asthmaticus 03/28/2007 Migraine without aura 10/22/2007 documented as of this encounter (statuses as of 07/20/2022) [facility] History of Past illness Narrative* Problem Noted Date Resolved Date Benign neoplasm of colon 08/20/2006 007 ABDOMINAL PAIN( Right Upper Quadrant) 07/17/2006 03/05/2009 Unspecified asthma, with status asthmaticus 03/28/2007 Migraine without aura 10/22/2007 documented as of this encounter (statuses as of 08/04/2022) [facility] History of Past illness Narrative* Problem Noted Date Resolved Date Benign neoplasm of colon 08/20/2006 007 ABDOMINAL PAIN( Right Upper Quadrant) 07/17/2006 03/05/2009 Unspecified asthma, with status asthmaticus 03/28/2007 Migraine without aura 10/22/2007 documented as of this encounter (statuses as of 08/09/2022) [facility] History of Past illness Narrative* Problem Noted Date Resolved Date Benign neoplasm of colon 08/20/2006 007 ABDOMINAL PAIN( Right Upper Quadrant) 07/17/2006 03/05/2009 Unspecified asthma, with status asthmaticus 03/28/2007 Migraine without aura 10/22/2007 documented as of this encounter (statuses as of 09/18/2022) [address]11-2006 History of Past illness Narrative* Problem Noted Date Resolved Date Benign neoplasm of colon 08/20/2006 007 ABDOMINAL PAIN( Right Upper Quadrant) 07/17/2006 03/05/2009 Unspecified asthma, with status asthmaticus 03/28/2007 Migraine without aura 10/22/2007 documented as of this encounter (statuses as of 09/22/2022) [facility] History of Past illness Narrative* Problem Noted Date Resolved Date Benign neoplasm of colon 08/20/2006 007 ABDOMINAL PAIN( Right Upper Quadrant) 07/17/2006 03/05/2009 Unspecified asthma, with status asthmaticus 03/28/2007 Migraine without aura 10/22/2007 documented as of this encounter (statuses as of 09/22/2022) [address]11-2006 History of Past illness Narrative* Problem Noted Date Resolved Date Benign neoplasm of colon 08/20/2006 007 ABDOMINAL PAIN( Right Upper Quadrant) 07/17/2006 03/05/2009 Unspecified asthma, with status asthmaticus 03/28/2007 Migraine without aura 10/22/2007 documented as of this encounter (statuses as of 09/29/2022) [facility] History of Past illness Narrative* Problem Noted Date Resolved Date Benign neoplasm of colon 08/20/2006 007 ABDOMINAL PAIN( Right Upper Quadrant) 07/17/2006 03/05/2009 Unspecified asthma, with status asthmaticus 03/28/2007 Migraine without aura 10/22/2007 documented as of this encounter (statuses as of 10/04/2022) [facility]12[facility]2006 History of Past illness Narrative* Problem Noted Date Resolved Date Benign neoplasm of colon 08/20/2006 007 ABDOMINAL PAIN( Right Upper Quadrant) 07/17/2006 03/05/2009 Unspecified asthma, with status asthmaticus 03/28/2007 Migraine without aura 10/22/2007 documented as of this encounter (statuses as of 10/12/2022) [facility] History of Past illness Narrative* Problem Noted Date Resolved Date Benign neoplasm of colon 08/20/2006 007 ABDOMINAL PAIN( Right Upper Quadrant) 07/17/2006 03/05/2009 Unspecified asthma, with status asthmaticus 03/28/2007 Migraine without aura 10/22/2007 documented as of this encounter (statuses as of 10/13/2022) [facility] History of Past illness Narrative* Problem Noted Date Resolved Date Benign neoplasm of colon 08/20/2006 007 ABDOMINAL PAIN( Right Upper Quadrant) 07/17/2006 03/05/2009 Unspecified asthma, with status asthmaticus 03/28/2007 Migraine without aura 10/22/2007 documented as of this encounter (statuses as of 10/16/2022) [facility] History of Past illness Narrative* Problem Noted Date Resolved Date Benign neoplasm of colon 08/20/2006 007 ABDOMINAL PAIN( Right Upper Quadrant) 07/17/2006 03/05/2009 Unspecified asthma, with status asthmaticus 03/28/2007 Migraine without aura 10/22/2007 documented as of this encounter (statuses as of 10/16/2022) [facility] History of Past illness Narrative* Problem Noted Date Resolved Date Benign neoplasm of colon 08/20/2006 007 ABDOMINAL PAIN( Right Upper Quadrant) 07/17/2006 03/05/2009 Unspecified asthma, with status asthmaticus 03/28/2007 Migraine without aura 10/22/2007 documented as of this encounter (statuses as of 10/26/2022) [facility] History of Past illness Narrative* Problem Noted Date Resolved Date Benign neoplasm of colon 08/20/2006 007 ABDOMINAL PAIN( Right Upper Quadrant) 07/17/2006 03/05/2009 Unspecified asthma, with status asthmaticus 03/28/2007 Migraine without aura 10/22/2007 documented as of this encounter (statuses as of 11/01/2022) [facility] History of Past illness Narrative* Problem Noted Date Resolved Date Benign neoplasm of colon 08/20/2006 007 ABDOMINAL PAIN( Right Upper Quadrant) 07/17/2006 03/05/2009 Unspecified asthma, with status asthmaticus 03/28/2007 Migraine without aura 10/22/2007 documented as of this encounter (statuses as of 11/02/2022) [facility] History of Past illness Narrative* Problem Noted Date Resolved Date Benign neoplasm of colon 08/20/2006 007 ABDOMINAL PAIN( Right Upper Quadrant) 07/17/2006 03/05/2009 Unspecified asthma, with status asthmaticus 03/28/2007 Migraine without aura 10/22/2007 documented as of this encounter (statuses as of 11/03/2022) [facility] History of Past illness Narrative* Problem Noted Date Resolved Date Benign neoplasm of colon 08/20/2006 007 ABDOMINAL PAIN( Right Upper Quadrant) 07/17/2006 03/05/2009 Unspecified asthma, with status asthmaticus 03/28/2007 Migraine without aura 10/22/2007 documented as of this encounter (statuses as of 11/03/2022) [facility] History of Past illness Narrative* Problem Noted Date Resolved Date Benign neoplasm of colon 08/20/2006 007 ABDOMINAL PAIN( Right Upper Quadrant) 07/17/2006 03/05/2009 Unspecified asthma, with status asthmaticus 03/28/2007 Migraine without aura 10/22/2007 documented as of this encounter (statuses as of 11/09/2022) [facility] History of Past illness Narrative* Problem Noted Date Resolved Date Benign neoplasm of colon 08/20/2006 007 ABDOMINAL PAIN( Right Upper Quadrant) 07/17/2006 03/05/2009 Unspecified asthma, with status asthmaticus 03/28/2007 Migraine without aura 10/22/2007 documented as of this encounter (statuses as of 11/10/2022) [facility] History of Past illness Narrative* Problem Noted Date Resolved Date Benign neoplasm of colon 08/20/2006 007 ABDOMINAL PAIN( Right Upper Quadrant) 07/17/2006 03/05/2009 Unspecified asthma, with status asthmaticus 03/28/2007 Migraine without aura 10/22/2007 documented as of this encounter (statuses as of 01/15/2023) [facility] History of Past illness Narrative* Problem Noted Date Resolved Date Benign neoplasm of colon 08/20/2006 007 ABDOMINAL PAIN( Right Upper Quadrant) 07/17/2006 03/05/2009 Unspecified asthma, with status asthmaticus 03/28/2007 Migraine without aura 10/22/2007 documented as of this encounter (statuses as of 01/19/2023) [address]11-2006 History of Past illness Narrative* Problem Noted Date Resolved Date Benign neoplasm of colon 08/20/2006 007 ABDOMINAL PAIN( Right Upper Quadrant) 07/17/2006 03/05/2009 Unspecified asthma, with status asthmaticus 03/28/2007 Migraine without aura 10/22/2007 documented as of this encounter (statuses as of 01/22/2023) [address]11-2006 History of Past illness Narrative* Problem Noted Date Diagnosed Date Resolved Date Benign neoplasm of colon 08/20/2006 ABDOMINAL PAIN( Right Upper Quadrant) 07/17/2006 03/05/2009 Unspecified asthma, with status asthmaticus 03/28/2007 Migraine without aura 2007 documented as of this encounter (statuses as of 04/09/2023) [address]11-2006 History of Past illness Narrative* Problem Noted Date Diagnosed Date Resolved Date Benign neoplasm of colon 08/20/2006 ABDOMINAL PAIN( Right Upper Quadrant) 07/17/2006 03/05/2009 Unspecified asthma, with status asthmaticus 03/28/2007 Migraine without aura 2007 documented as of this encounter (statuses as of 05/04/2023) [address]11-2006 History of Past illness Narrative* Problem Noted Date Diagnosed Date Resolved Date Benign neoplasm of colon 08/20/2006 ABDOMINAL PAIN( Right Upper Quadrant) 07/17/2006 03/05/2009 Unspecified asthma, with status asthmaticus 03/28/2007 Migraine without aura 2007 documented as of this encounter (statuses as of 05/04/2023) [address]11-2006 History of Past illness Narrative* Problem Noted Date Diagnosed Date Resolved Date Benign neoplasm of colon 08/20/2006 ABDOMINAL PAIN( Right Upper Quadrant) 07/17/2006 03/05/2009 Unspecified asthma, with status asthmaticus 03/28/2007 Migraine without aura 2007 documented as of this encounter (statuses as of 05/04/2023) [facility]12[facility]2006 History of Past illness Narrative* Problem Noted Date Diagnosed Date Resolved Date Benign neoplasm of colon 08/20/2006 ABDOMINAL PAIN( Right Upper Quadrant) 07/17/2006 03/05/2009 Unspecified asthma, with status asthmaticus 03/28/2007 Migraine without aura 2007 documented as of this encounter (statuses as of 07/15/2023) [facility] History of Past illness Narrative* Problem Noted Date Diagnosed Date Resolved Date Benign neoplasm of colon 08/20/2006 ABDOMINAL PAIN( Right Upper Quadrant) 07/17/2006 03/05/2009 Unspecified asthma, with status asthmaticus 03/28/2007 Migraine without aura 2007 documented as of this encounter (statuses as of 07/15/2023) [facility] History of Past illness Narrative* Problem Noted Date Diagnosed Date Resolved Date Benign neoplasm of colon 08/20/2006 ABDOMINAL PAIN( Right Upper Quadrant) 07/17/2006 03/05/2009 Unspecified asthma, with status asthmaticus 03/28/2007 Migraine without aura 2007 documented as of this encounter (statuses as of 07/15/2023) [facility] History of Past illness Narrative* Problem Noted Date Diagnosed Date Resolved Date Benign neoplasm of colon 08/20/2006 ABDOMINAL PAIN( Right Upper Quadrant) 07/17/2006 03/05/2009 Unspecified asthma, with status asthmaticus 03/28/2007 Migraine without aura 2007 documented as of this encounter (statuses as of 07/31/2023) [facility] History of Past illness Narrative* Problem Noted Date Diagnosed Date Resolved Date Benign neoplasm of colon 08/20/2006 ABDOMINAL PAIN( Right Upper Quadrant) 07/17/2006 03/05/2009 Unspecified asthma, with status asthmaticus 03/28/2007 Migraine without aura 2007 documented as of this encounter (statuses as of 07/31/2023) [facility] History of Past illness Narrative* Problem Noted Date Diagnosed Date Resolved Date Benign neoplasm of colon 08/20/2006 ABDOMINAL PAIN( Right Upper Quadrant) 07/17/2006 03/05/2009 Unspecified asthma, with status asthmaticus 03/28/2007 Migraine without aura 2007 documented as of this encounter (statuses as of 08/08/2023) [address]11-2006 History of Past illness Narrative* Problem Noted Date Diagnosed Date Resolved Date Benign neoplasm of colon 08/20/2006 ABDOMINAL PAIN( Right Upper Quadrant) 07/17/2006 03/05/2009 Unspecified asthma, with status asthmaticus 03/28/2007 Migraine without aura 2007 documented as of this encounter (statuses as of 08/09/2023) [address]11-2006 History of Past illness Narrative* Problem Noted Date Diagnosed Date Resolved Date Benign neoplasm of colon 08/20/2006 ABDOMINAL PAIN( Right Upper Quadrant) 07/17/2006 03/05/2009 Unspecified asthma, with status asthmaticus 03/28/2007 Migraine without aura 2007 documented as of this encounter (statuses as of 11/22/2023) [address]11-2006 History of Past illness Narrative* Problem Noted Date Diagnosed Date Resolved Date Benign neoplasm of colon 08/20/2006 ABDOMINAL PAIN( Right Upper Quadrant) 07/17/2006 03/05/2009 Unspecified asthma, with status asthmaticus 03/28/2007 Migraine without aura 2007 documented as of this encounter (statuses as of 11/22/2023) [facility] Diagnosis Encounter for examination required by Department of Transportation (DOT)- [facility] Moderate persistent asthma with exacerbation- Primary Unspecified asthma, with exacerbation [facility] Migraine without aura and without status migrainosus, not intractable Migraine without aura, without mention of intractable migraine without mention of status migrainosus [facility] Diagnosis Pure hypercholesterolemia Displacement of lumbar intervertebral disc without myelopathy [facility] Diagnosis BENIGN HYPERTENSION Essential hypertension, benign [facility]* Diagnosis Gastroesophageal reflux disease without esophagitis Esophageal reflux [facility] Diagnosis Hypokalemia Hypopotassemia [facility] Diagnosis Moderate persistent asthma with exacerbation Unspecified asthma, with exacerbation [facility] Diagnosis Sinobronchitis- Primary Unspecified sinusitis (chronic) Mild intermittent asthma with acute exacerbation Unspecified asthma, with exacerbation Wheezing [facility] Diagnosis Migraine without aura and without status migrainosus, not intractable Migraine without aura, without mention of intractable migraine without mention of status migrainosus Displacement of lumbar intervertebral disc without myelopathy [facility] Diagnosis BENIGN HYPERTENSION Essential hypertension, benign [facility] Diagnosis Localized swelling, mass and lump, neck- Primary Swelling, mass, or lump in head and neck Neck pain without injury Localized enlarged lymph nodes Enlargement of lymph nodes [facility] Diagnosis Elevated alanine aminotransferase (ALT) level- Primary Nonspecific elevation of levels of transaminase or lactic acid dehydrogenase (LDH) Neck pain without injury [facility]* Diagnosis Neck pain without injury Neck pain Cervicalgia [facility] Diagnosis Localized swelling, mass and lump, neck Swelling, mass, or lump in head and neck Neck pain without injury Localized enlarged lymph nodes Enlargement of lymph nodes [facility] Diagnosis Acute non-recurrent maxillary sinusitis- Primary Acute pain of left knee Infected abrasion of left knee, initial encounter [facility] Diagnosis Neck pain- Primary Cervicalgia [facility] Diagnosis Neck pain- Primary Cervicalgia [facility]* Diagnosis Neck pain- Primary Cervicalgia [facility] Diagnosis Neck pain- Primary Cervicalgia [facility] Diagnosis Neck pain- Primary Cervicalgia [facility] Diagnosis Chronic neck pain- Primary Cervicalgia Cervical radiculopathy Brachial neuritis or radiculitis nos Cervical disc disorder at C4-C5 level with radiculopathy Attention deficit Attention or concentration deficit [facility]* Diagnosis BENIGN HYPERTENSION Essential hypertension, benign [facility] Diagnosis Hypokalemia Hypopotassemia [facility]* Diagnosis Sinobronchitis- Primary Unspecified sinusitis (chronic) [facility] Diagnosis Bronchitis- Primary Bronchitis, not specified as acute or chronic Asthma, moderate persistent, well-controlled Unspecified asthma Chronic allergic rhinitis Allergic rhinitis, cause unspecified Wheezing Exposure to radon, initial encounter [facility]* Diagnosis Bronchitis Bronchitis, not specified as acute or chronic [facility] Diagnosis Bronchitis- Primary Bronchitis, not specified as acute or chronic Asthma, moderate persistent, well-controlled Unspecified asthma Sarcoidosis of lung (HCC) Sarcoidosis [facility]* Diagnosis Dyslipidemia- Primary Other and unspecified hyperlipidemia Vitamin D deficiency Unspecified vitamin D deficiency IFG (impaired fasting glucose) Impaired fasting glucose LVH (left ventricular hypertrophy) Cardiomegaly Asthma, moderate persistent, well-controlled Unspecified asthma Exposure to radon, initial encounter Wheezing [facility] Diagnosis Bronchitis Bronchitis, not specified as acute or chronic Asthma, moderate persistent, well-controlled Unspecified asthma Sarcoidosis of lung (HCC) Sarcoidosis [facility]* Diagnosis Bronchitis Bronchitis, not specified as acute or chronic Asthma, moderate persistent, well-controlled Unspecified asthma Sarcoidosis of lung (HCC) Sarcoidosis [facility]* Diagnosis BENIGN HYPERTENSION Essential hypertension, benign Displacement of lumbar intervertebral disc without myelopathy [facility]* Diagnosis IFG (impaired fasting glucose)- Primary Impaired fasting glucose [facility]* Diagnosis New onset type 2 diabetes mellitus (HCC)- Primary Hyperlipidemia, mixed Mixed hyperlipidemia Acute pain of right shoulder [facility] Diagnosis Acute pain of right shoulder- Primary [facility]* Diagnosis Onset Date Resolution Status Degenerative disc disease, cervical acute [facility] Work Phone: Evaluation note* Diagnosis Dyslipidemia- Primary Other and unspecified hyperlipidemia New onset type 2 diabetes mellitus (HCC) BENIGN HYPERTENSION Essential hypertension, benign Gastroesophageal reflux disease without esophagitis Esophageal reflux Chronic allergic rhinitis Allergic rhinitis, cause unspecified Hyperlipidemia, mixed Mixed hyperlipidemia Displacement of lumbar intervertebral disc without myelopathy Cervical disc disorder at C4-C5 level with radiculopathy Chronic neck pain Cervicalgia [facility] Diagnosis Migraine without aura and without status migrainosus, not intractable Migraine without aura, without mention of intractable migraine without mention of status migrainosus [facility] Diagnosis Displacement of lumbar intervertebral disc without myelopathy [facility]* Diagnosis Migraine without aura and without status migrainosus, not intractable Migraine without aura, without mention of intractable migraine without mention of status migrainosus [facility] Diagnosis BENIGN HYPERTENSION Essential hypertension, benign Displacement of lumbar intervertebral disc without myelopathy [facility]* Diagnosis External hemorrhoid External hemorrhoids without mention of complication Hyperlipidemia, mixed Mixed hyperlipidemia [facility]* Diagnosis Wheezing Bronchitis Bronchitis, not specified as acute or chronic [facility]* Diagnosis Gastroesophageal reflux disease without esophagitis Esophageal reflux [facility] Diagnosis BENIGN HYPERTENSION Essential hypertension, benign [facility]* Diagnosis Chronic allergic rhinitis Allergic rhinitis, cause unspecified [facility]* Diagnosis Hypokalemia Hypopotassemia [facility]* Diagnosis Displacement of lumbar intervertebral disc without myelopathy Hypokalemia Hypopotassemia Chronic allergic rhinitis Allergic rhinitis, cause unspecified [facility] Diagnosis BENIGN HYPERTENSION Essential hypertension, benign [facility]* Diagnosis Displacement of lumbar intervertebral disc without myelopathy [facility] Diagnosis BENIGN HYPERTENSION- Primary Essential hypertension, benign Hyperlipidemia, mixed Mixed hyperlipidemia Migraine without aura and without status migrainosus, not intractable Migraine without aura, without mention of intractable migraine without mention of status migrainosus Mild persistent asthma without complication Unspecified asthma Chronic allergic rhinitis Allergic rhinitis, cause unspecified New onset type 2 diabetes mellitus (HCC) Screening for colon cancer Special screening for malignant neoplasms, colon Screening for prostate cancer Special screening for malignant neoplasm of prostate [facility] Diagnosis Hyperlipidemia, mixed- Primary Mixed hyperlipidemia documented in this encounter [facility] note* Diagnosis Gastroesophageal reflux disease, unspecified whether esophagitis present- Primary Screening for colon cancer Special screening for malignant neoplasms, colon Hyperlipidemia, mixed Mixed hyperlipidemia Irritable bowel syndrome with constipation Irritable bowel syndrome Diarrhea, unspecified type Personal history of colonic polyps documented in this encounter [facility] note* Diagnosis Displacement of lumbar intervertebral disc without myelopathy documented in this encounter [facility] note* Diagnosis Essential hypertension, benign- Primary Anxiety with depression documented in this encounter [facility] note* Diagnosis Diarrhea, unspecified type- Primary Screening for colon cancer Special screening for malignant neoplasms, colon Hyperlipidemia, mixed Mixed hyperlipidemia Gastroesophageal reflux disease, unspecified whether esophagitis present Irritable bowel syndrome with constipation Irritable bowel syndrome Personal history of colonic polyps documented in this encounter [facility] note* Diagnosis Gastroesophageal reflux disease with esophagitis without hemorrhage- Primary Diarrhea, unspecified type documented in this encounter [facility] note* Diagnosis Asthma, moderate persistent, well-controlled Unspecified asthma Chronic allergic rhinitis Allergic rhinitis, cause unspecified Bronchitis Bronchitis, not specified as acute or chronic documented in this encounter [facility] note* Diagnosis Acute pain of right shoulder [facility] Diagnosis Neck pain without injury [facility]* Diagnosis Acute pain of left knee documented in this encounter [facility] note* Diagnosis Cough documented in this encounter [facility] note* Diagnosis Pain of left thumb Pain in limb Foot pain, left Pain in limb [facility]* Diagnosis Pain of left thumb- Primary Pain in limb Foot pain, left Pain in limb Hyperlipidemia, mixed Mixed hyperlipidemia IFG (impaired fasting glucose) Impaired fasting glucose Vitamin D deficiency Unspecified vitamin D deficiency Fatigue, unspecified type Pulmonary nodule Solitary pulmonary nodule LVH (left ventricular hypertrophy) Cardiomegaly 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 Vitamin B12 deficiency Other B-complex deficiencies documented in this encounter [facility] note* Diagnosis Pulmonary nodule Solitary pulmonary nodule [facility]* Diagnosis Tobacco abuse Tobacco use disorder [facility]* Diagnosis Elevated LFTs- Primary Other abnormal blood chemistry Hypokalemia Hypopotassemia documented in this encounter [facility] note* Diagnosis Essential hypertension, benign documented [facility]* Diagnosis Chronic allergic rhinitis Allergic rhinitis, cause unspecified documented [facility]* Diagnosis External hemorrhoid External hemorrhoids without mention of complication Migraine without aura and without status migrainosus, not intractable Migraine without aura, without mention of intractable migraine without mention of status migrainosus [facility]* Diagnosis Asthma, moderate persistent, well-controlled Unspecified asthma Chronic allergic rhinitis Allergic rhinitis, cause unspecified Mild persistent asthma without complication Unspecified asthma Bronchitis Bronchitis, not specified as acute or chronic [facility] Diagnosis Encounter for screening for lung cancer- Primary Tobacco abuse Tobacco use disorder documented in this encounter [facility] note* Diagnosis Asthma, moderate persistent, poorly-controlled- Primary Unspecified asthma H/O sarcoidosis Personal history of other endocrine, metabolic, and immunity disorders Former cigarette smoker Personal history of tobacco use, presenting hazards to health documented in this encounter [facility] note* Diagnosis Displacement of lumbar intervertebral disc without myelopathy [facility] Diagnosis Asthma, moderate persistent, poorly-controlled (HCC) Unspecified asthma [facility]* Diagnosis Asthma, moderate persistent, poorly-controlled (HCC) Unspecified asthma [facility]* Diagnosis Asthma, moderate persistent, poorly-controlled (HCC)- Primary Unspecified asthma Acute non-recurrent maxillary sinusitis Chronic allergic rhinitis Allergic rhinitis, cause unspecified Daytime sleepiness Former cigarette smoker Personal history of tobacco use, presenting hazards to health [facility]* Diagnosis IFG (impaired fasting glucose)- Primary Impaired fasting glucose Hyperlipidemia, mixed Mixed hyperlipidemia Chronic allergic rhinitis Allergic rhinitis, cause unspecified Displacement of lumbar intervertebral disc without myelopathy Essential hypertension, benign Migraine without aura and without status migrainosus, not intractable Migraine without aura, without mention of intractable migraine without mention of status migrainosus Sarcoidosis of lung (HCC) Sarcoidosis Mixed hyperlipidemia Asthma, moderate persistent, well-controlled (HCC) Unspecified asthma [facility]* Diagnosis Rib pain on left side- Primary Chest pain, unspecified Left sided abdominal pain Abdominal pain, unspecified site Rib pain on left side Chest pain, unspecified documented in this encounter [facility] note* Diagnosis Rib pain on left side Chest pain, unspecified [facility]* Diagnosis Splenomegaly, not elsewhere classified- Primary Left sided abdominal pain Abdominal pain, unspecified site documented in this encounter [facility] for referral (narrative)* Diagnostic Procedure Only (Routine) - Closed Specialty Diagnoses / Procedures Referred By Contac t Referred To Contact XR IMAGING Diagnoses Neck pain without injury Procedures XR CERV OTHER 4V AP/LAT/OBL RADEX SPINE CERVICAL 4 OR 5 VIEWS Avni Salcedo DO [address] [place] [address] Xr Imaging Referral ID Status Reason Start Date Expiration Date V isits Requested Visits Authorized [id number] Closed Auto-Generate d Referral 05/19/2022 09/09/2022 1 1 * MRI/CT (Routine) - Pending Review Specialty Diagnoses / Procedures Referred By Contac t Referred To Contact CT IMAGING Diagnoses Localized swelling, mass and lump, neck Neck pain without injury Localized enlarged lymph nodes Procedures CT NECK SOFT TISSUE W IVCON CT SOFT TISSUE NECK W/CONTRAST MATERIAL Avni Salcedo DO [address] [place] [address] Ct Imaging Referral ID Status Reason Start Date Expiration Date Visits Requested Visits Authorized [id number] Pending Review Auto-Generat ed Referral 05/19/2022 06/18/2023 1 1 [facility] for referral (narrative)* Outpatient Procedure (Routine) - Authorized Specialty Diagnoses / Procedures Referred By Contac t Referred To Contact [facility] Diagnoses Bronchitis Asthma, moderate persistent, well-controlled Sarcoidosis of lung (HCC) Procedures SPIROMETRY - BASELINE AND POST DILATOR BRNCDILAT RSPSE SPMTRY PRE&POST-BRNCDILAT N Su Ham, ANA.TRANSFER STATION OPERATOR [address] [place] [address] Res[facility] [place] [address] [place] [address] Referral ID Status Reason Start Date Expiration Date Visits Requested Visits Authorized [id number] Authorized Auto-Generat ed Referral 10/02/2022 11/01/2023 1 1 * Outpatient Procedure (Routine) - Pending Review Specialty Diagnoses / Procedures Referred By Contac t Referred To Contact [facility] Diagnoses Bronchitis Asthma, moderate persistent, well-controlled Sarcoidosis of lung (HCC) Procedures LUNG VOLUMES Su Ham APRN.TRANSFER STATION OPERATOR [address] [place] [address] Res[facility] [place] [address] [place] [id number] Referral ID Status Reason Start Date Expiration Date Visits Requested Visits Authorized [id number] Pending Review Auto-Generat ed Referral 10/02/2022 11/01/2023 1 1 [facility] for referral (narrative)* Outpatient Procedure (Routine) - Authorized Specialty Diagnoses / Procedures Referred By Contac t Referred To Contact [facility] Diagnoses LVH (left ventricular hypertrophy) Procedures ECHO ECHO TTHRC R-T 2D W/WOM-MODE COMPL SPEC&COLR D Avni Salcedo DO [address] [place] [address] [facility] [address] [address] Referral ID Status Reason Start Date Expiration Date Visits Requested Visits Authorized [id number] Authorized Auto-Generat ed Referral 10/11/2022 10/11/2023 1 1 [facility] for referral (narrative)* Diagnostic Procedure Only (Routine) - Closed Specialty Diagnoses / Procedures Referred By Contac t Referred To Contact XR IMAGING Diagnoses Acute pain of right shoulder Procedures XR SHOULDER GENERAL 3V OR MORE AP/TRUE AP/OTHER RIGHT RADEX SHOULDER COMPLETE MINIMUM 2 VIEWS Su Ham APRN.TRANSFER STATION OPERATOR [address] [place] [address] Xr Imaging Referral ID Status Reason Start Date Expiration Date V isits Requested Visits Authorized [id number] Closed Auto-Generate d Referral 11/01/2022 12/01/2023 1 1 [facility] for referral (narrative)* Diagnostic Procedure Only (Routine) - Closed Specialty Diagnoses / Procedures Referred By Ange sheets Referred To Contact [facility] Diagnoses Screening for colon cancer Hyperlipidemia, mixed Gastroesophageal reflux disease, unspecified whether esophagitis present Irritable bowel syndrome with constipation Diarrhea, unspecified type Personal history of colonic polyps Procedures EGD DIAGNOSTIC ESOPHAGOGASTRODUODENOSC OPY TRANSORAL DIAGNOSTIC Jhon Chowdhury MD [address] [address] [place] [phone] Referral ID Status Reason Start Date Expiration Date V isits Requested Visits Authorized [id number] Closed Auto-Generated Referral Patient Cleared - INN Insurance Found 04/14/2024 09/09/2024 1 1 * Financial Clearance (Routine) - Closed Specialty Diagnoses / Procedures Referred By Ange sheets Referred To Contact [facility] Diagnoses Screening for colon cancer Hyperlipidemia, mixed Gastroesophageal reflux disease, unspecified whether esophagitis present Irritable bowel syndrome with constipation Diarrhea, unspecified type Personal history of colonic polyps Procedures COLONOSCOPY SCREENING COLONOSCOPY SCREENING COLONOSCOPY FLX DX W/COLLJ SPEC WHEN PFRMD John Chowdhury MD [address] [address] [place] [phone] Referral ID Status Reason Start Date Expiration Date V isits Requested Visits Authorized [id number] Closed Auto-Generated Referral Patient Cleared - Qualified 100% FAS 04/16/2024 09/09/2024 1 1 [facility] for referral (narrative)* Diagnostic Procedure Only (Routine) - Closed Specialty Diagnoses / Procedures Referred By Ange sheets Referred To Contact XR IMAGING Diagnoses Acute pain of right shoulder Procedures XR SHOULDER GENERAL 3V OR MORE AP/TRUE AP/OTHER RIGHT RADEX SHOULDER COMPLETE MINIMUM 2 VIEWS Su Ham APRN.TRANSFER STATION OPERATOR [address] [place] [address] [place] [address] Referral ID Status Reason Start Date Expiration Date V isits Requested Visits Authorized [id number] Closed Auto-Generate d Referral 11/01/2022 12/01/2023 1 1 [facility] for referral (narrative)* Diagnostic Procedure Only (Routine) - Closed Specialty Diagnoses / Procedures Referred By Contac t Referred To Contact XR IMAGING Diagnoses Neck pain without injury Procedures XR CERV OTHER 4V AP/LAT/OBL RADEX SPINE CERVICAL 4 OR 5 VIEWS Avni Salcedo DO [address] [place] [address] [place] [address] Referral ID Status Reason Start Date Expiration Date V isits Requested Visits Authorized [id number] Closed Auto-Generate d Referral 05/19/2022 09/09/2022 1 1 [facility] for referral (narrative)* Diagnostic Procedure Only (Routine) - Closed Specialty Diagnoses / Procedures Referred By Contac t Referred To Contact XR IMAGING Diagnoses Acute pain of left knee Infected abrasion of left knee, initial encounter Procedures XR KNEE GENERAL 4V AP BOTH/PA BOTH/LAT/MERC LEFT RADIOLOGIC EXAM KNEE COMPLETE 4/MORE VIEWS Su Ham APRN.TRANSFER STATION OPERATOR [address] [place] [address] [place] [address] Referral ID Status Reason Start Date Expiration Date V isits Requested Visits Authorized [id number] Closed Auto-Generate d Referral 11/11/2021 12/11/2022 1 1 [facility] for referral (narrative)* Outpatient Procedure (Routine) - Pending Review Specialty Diagnoses / Procedures Referred By Contac t Referred To Contact [facility] Diagnoses LVH (left ventricular hypertrophy) 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 Procedures ECHO ECHO TTHRC R-T 2D W/WOM-MODE COMPL SPEC&COLR D Avni Salcedo DO [address] [place] [address] [facility] [place] [address] [place] [address] Referral ID Status Reason Start Date Expiration Date Visits Requested Visits Authorized [id number] Pending Review Auto-Generat ed Referral 06/16/2024 06/16/2025 1 1 * MRI/CT (Routine) - Open Specialty Diagnoses / Procedures Referred By Contac t Referred To Contact CT IMAGING Diagnoses Pulmonary nodule Procedures CT CHEST WO IVCON DIAGNOSTIC COMPUTED TOMOGRAPHY THORAX W/O CNTRST Avni Salcedo DO [address] [place] [address] [place] [address] Referral ID Status Reason Start Date Expiration Date V isits Requested Visits Authorized [id number] Open Auto-Generate d Referral 06/16/2024 07/16/2025 1 1 * Diagnostic Procedure Only (Routine) - Closed Specialty Diagnoses / Procedures Referred By Contac t Referred To Contact XR IMAGING Diagnoses Foot pain, left Procedures XR FOOT GENERAL 3V AP/LAT/OBL LEFT RADEX FOOT COMPLETE MINIMUM 3 VIEWS Avni Salcedo DO [address] [place] [address] [place] [address] Referral ID Status Reason Start Date Expiration Date V isits Requested Visits Authorized [id number] Closed Auto-Generate d Referral 06/16/2024 07/16/2025 1 1 * Diagnostic Procedure Only (Routine) - Closed Specialty Diagnoses / Procedures Referred By Contac t Referred To Contact XR IMAGING Diagnoses Pain of left thumb Procedures XR HAND GENERAL 3V PA/LAT/OBL LEFT RADEX HAND MINIMUM 3 VIEWS Avni Salcedo DO [address] [place] [address] [place] [address] Referral ID Status Reason Start Date Expiration Date V isits Requested Visits Authorized [id number] Closed Auto-Generate d Referral 06/16/2024 07/16/2025 1 1 [facility] for referral (narrative)* Outpatient Procedure (Routine) - Authorized Specialty Diagnoses / Procedures Referred By Contac t Referred To Contact [facility] Diagnoses Asthma-COPD overlap syndrome (HCC) Procedures SPIROMETRY - BASELINE AND POST DILATOR BRNCDILAT RSPSE SPMTRY PRE&POST-BRNCDILAT ADMN Shayla Rogers MD [address] [place] [address] Respiratory [place] [phone] Referral ID Status Reason Start Date Expiration Date Visits Requested Visits Authorized [id number] Authorized Auto-Generat ed Referral 10/09/2024 11/08/2025 1 1 * Outpatient Procedure (Routine) - Authorized Specialty Diagnoses / Procedures Referred By Contac t Referred To Contact [facility] Diagnoses Asthma-COPD overlap syndrome (HCC) Procedures NITRIC OXIDE, EXHALED NITRIC OXIDE GAS DETERMINATION Shayla Rogers MD [address] [place] [address] [address] Referral ID Status Reason Start Date Expiration Date Visits Requested Visits Authorized [id number] Authorized Auto-Generat ed Referral 10/09/2024 11/08/2025 1 1 * Medication Prior Authorization - Closed Specialty Diagnoses / Procedures Referred By Contac t Referred To Contact Diagnoses Asthma-COPD overlap syndrome (HCC) Shayla Rogers MD [address] [place] [address] Referral ID Status Reason Start Date Expiration Date Visits Re quested Visits Authorized [id number] Closed 1 1 [facility] for visit Narrative* Diagnostic Procedure Only (Routine) - Closed Specialty Diagnoses / Procedures Referred By Contac t Referred To Contact Radiology / RADIO MRI [facility] Diagnoses MRI CERVICAL SPINE WO IVCON order in scanned doc Procedures MRI SPINAL CANAL CERVICAL W/O & W/CONTR MATRL MRI WO LORRAINE B 300 ALL Self Radio Mri [facility] [address] [place] [address] Referral ID Status Reason Start Date Expiration Date V isits Requested Visits Authorized [id number] Closed Patient Cleared INN/SMCP Payor Auth Obtained 10/18/2022 09/09/2023 1 1 [facility] for visit Narrative* Diagnostic Procedure Only (Routine) - Closed Specialty Diagnoses / Procedures Referred By Contac t Referred To Contact Radiology / RADIO MRI [facility] Diagnoses Sprain of right shoulder SPRAIN OF RIGHT SHOULDER JOINT / ADHESIVE CAPULITIS OF RIGHT SHOULDER Procedures MRI ANY JT UPPER EXTREMITY W/O CONTRAST MATRL MRI WO MSK2 SHLDR [address] [place], [place] [address] [place] [address] Radio Mri [facility] [address] [place] [address] Referral ID Status Reason Start Date Expiration Date V isits Requested Visits Authorized [id number] Closed Clearance Not Met - Admin/Chairm an/Director Advise to Postpone/Res chedule or Not Proceed 01/16/2023 03/17/2023 1 1 [facility] for visit Narrative* Diagnostic Procedure Only (Routine) - Closed Specialty Diagnoses / Procedures Referred By Contac t Referred To Contact [facility] Diagnoses Screening for colon cancer Hyperlipidemia, mixed Gastroesophageal reflux disease, unspecified whether esophagitis present Irritable bowel syndrome with constipation Diarrhea, unspecified type Personal history of colonic polyps Procedures EGD DIAGNOSTIC ESOPHAGOGASTRODUODENOSC OPY TRANSORAL DIAGNOSTIC John Chowdhury MD [address] [address] [facility] [place] [address] [place] [address] Referral ID Status Reason Start Date Expiration Date V isits Requested Visits Authorized [id number] Closed Auto-Generated Referral Patient Cleared - INN Insurance Found 04/14/2024 09/09/2024 1 1 [facility] for visit Narrative* Diagnostic Procedure Only (Routine) - Closed Specialty Diagnoses / Procedures Referred By Ange sheets Referred To Contact XR IMAGING Diagnoses Acute pain of right shoulder Procedures XR SHOULDER GENERAL 3V OR MORE AP/TRUE AP/OTHER RIGHT RADEX SHOULDER COMPLETE MINIMUM 2 VIEWS Su Ham, ANA.TRANSFER STATION OPERATOR [address] [place] [address] [place] [address] Referral ID Status Reason Start Date Expiration Date V isits Requested Visits Authorized [id number] Closed Auto-Generate d Referral 11/01/2022 12/01/2023 1 1 [facility] for visit Narrative* Diagnostic Procedure Only (Routine) - Closed Specialty Diagnoses / Procedures Referred By Ange sheets Referred To Contact XR IMAGING Diagnoses Neck pain without injury Procedures XR CERV OTHER 4V AP/LAT/OBL RADEX SPINE CERVICAL 4 OR 5 VIEWS Avni Salcedo DO [address] [place] [address] [place] [address] Referral ID Status Reason Start Date Expiration Date V isits Requested Visits Authorized [id number] Closed Auto-Generate d Referral 05/19/2022 09/09/2022 1 1 [facility] for visit Narrative* Diagnostic Procedure Only (Routine) - Closed Specialty Diagnoses / Procedures Referred By Ange sheets Referred To Contact XR IMAGING Diagnoses Acute pain of left knee Infected abrasion of left knee, initial encounter Procedures XR KNEE GENERAL 4V AP BOTH/PA BOTH/LAT/MERC LEFT RADIOLOGIC EXAM KNEE COMPLETE 4/MORE VIEWS Su Ham, ANA.TRANSFER STATION OPERATOR [address] [place] [address] [place] [address] Referral ID Status Reason Start Date Expiration Date V isits Requested Visits Authorized [id number] Closed Auto-Generate d Referral 11/11/2021 12/11/2022 1 1 [facility] for visit Narrative* Diagnostic Procedure Only (Urgent) - Closed Specialty Diagnoses / Procedures Referred By Contac t Referred To Contact XR IMAGING Diagnoses Acute right ankle pain Procedures XR ANKLE GENERAL 3V AP/LAT/OBL RIGHT X-RAY ANKLE MINIMUM 3 VIEWS Marce Menjivar, PASebas [address] [place] [id number] [place] [address] Referral ID Status Reason Start Date Expiration Date V isits Requested Visits Authorized [id number] Closed Auto-Generate d Referral 07/28/2021 08/27/2022 1 1 [facility] for visit Narrative* Diagnostic Procedure Only (Routine) - Closed Specialty Diagnoses / Procedures Referred By Contac t Referred To Contact XR IMAGING Diagnoses Foot pain, left Procedures XR FOOT GENERAL 3V AP/LAT/OBL LEFT RADEX FOOT COMPLETE MINIMUM 3 VIEWS Avni Salcedo L, DO [address] [place] [address] [place] [address] Referral ID Status Reason Start Date Expiration Date V isits Requested Visits Authorized [id number] Closed Auto-Generate d Referral 06/16/2024 07/16/2025 1 1 [facility] for visit Narrative* Diagnostic Procedure Only (Urgent) - Closed Specialty Diagnoses / Procedures Referred By Contac t Referred To Contact XR IMAGING Diagnoses Rib pain on left side Procedures XR RIBS/CHEST 3V AP RIB/OBLS/CXR LEFT RADEX RIBS UNI W/POSTEROANT CH MINIMUM 3 VIEWS Elmer White MD [address] [place] [address] Phone: tel: fax: [place] [address] Referral ID Status Reason Start Date Expiration Date V isits Requested Visits Authorized [id number] Closed Auto-Generate d Referral 01/12/2025 02/11/2026 1 1 [facility] Summary Purpose Family History No Family History Records Found Relationship Condition Age at Onset Recorded Date/T yolande Unknown Family History?Cancer Unknown November 30, 2016 5:38pm Family History?Cancer Unknown January 232017 4:07pm Advance Directives No Advanced Directives Records Found Advance Directive Response Recorded Date/ Time Advance Directives No January 14, 2016 7:51am Living Will No November 16, 2022 7:46pm Power of Operating Engineer No November 16 7:46pm Reason for Referral Specialty Diagnoses / Procedures Referred By Contac t Referred To Contact [facility] Diagnoses Neck pain without injury Procedures CONSULT TO PHYSICAL THERAPY PHYSICAL THERAPY EVALUATION HIGH COMPLEX 45 MINS Su Bass, WATCHER LOOKOUT TOWER.TRANSFER STATION OPERATOR [address] [place] [address] [facility] [place] [address] [place] [address] Referral ID Status Reason Start Date Expiration Date Visits Requested Visits Authorized [id number] Authorized Auto-Generat ed Referral 12/09/2021 09/09/2022 30 30 Specialty Diagnoses / Procedures Referred By Ange t Referred To Contact CT IMAGING Diagnoses Localized swelling, mass and lump, neck Neck pain without injury Localized enlarged lymph nodes Procedures CT NECK SOFT TISSUE W IVCON CT SOFT TISSUE NECK W/CONTRAST MATERIAL Avni Salcedo, DO [address] [place] [address] Ct Imaging Referral ID Status Reason Start Date Expiration Date V isits Requested Visits Authorized [id number] Closed Auto-Generate d Referral 05/19/2022 06/18/2023 1 1 Specialty Diagnoses / Procedures Referred By Ange t Referred To Contact Pain Management Diagnoses Cervical radiculopathy Cervical disc disorder at C4-C5 level with radiculopathy Procedures CONSULT TO PAIN MGT OFFICE/OUTPATIENT [facility] MDM 60-74 MINUTES Avni Salcedo, DO [address] [place] [address] Referral ID Status Reason Start Date Expiration Date Visits Requested Visits Authorized [id number] Pending Review PCP Requested Referral 07/10/2023 1 1 Specialty Diagnoses / Procedures Referred By Mollyac t Referred To Contact CT IMAGING Diagnoses Wheezing Bronchitis Procedures CT CHEST WO IVCON DIAGNOSTIC COMPUTED TOMOGRAPHY THORAX W/O CNTRST Su Ham, WATCHER [employer].TRANSFER STATION OPERATOR [address] [place] [address] Ct Imaging Referral ID Status Reason Start Date Expiration Date Visits Requested Visits Authorized [id number] Pending Review Auto-Generat ed Referral 09/22/2022 10/22/2023 1 1 Specialty Diagnoses / Procedures Referred By Contac t Referred To Contact Orthopedics Diagnoses Acute pain of right shoulder Procedures CONSULT TO ORTHOPAEDICS OFFICE/OUTPATIENT [facility] 60-74 MINUTES Su Ham, WATCHER [employer].TRANSFER STATION OPERATOR [address] [place] [address] Referral ID Status Reason Start Date Expiration Date Visits Requested Visits Authorized [id number] Pending Review PCP Requested Referral 11/10/2022 11/10/2023 1 1 Specialty Diagnoses / Procedures Referred By Contac t Referred To Contact CT IMAGING Diagnoses Wheezing Bronchitis Procedures CT CHEST WO IVCON DIAGNOSTIC COMPUTED TOMOGRAPHY THORAX W/O CNTRST Su Ham, WATCHER [employer].TRANSFER STATION OPERATOR [address] [place] [address] [place] [address] Referral ID Status Reason Start Date Expiration Date V isits Requested Visits Authorized [id number] Closed Auto-Generate d Referral 09/25/2022 11/24/2022 1 1 Specialty Diagnoses / Procedures Referred By Contac t Referred To Contact General Surgery Diagnoses Screening for colon cancer Procedures CONSULT TO GENERAL SURGERY OFFICE/OUTPATIENT [facility] 60 MINUTES Su Ham, WATCHER [employer]OWER.TRANSFER STATION OPERATOR [address] [place] [address] Referral ID Status Reason Start Date Expiration Date Visits Requested Visits Authorized [id number] Authorized PCP Requested Referral 01/31/2024 01/30/2025 1 1 Specialty Diagnoses / Procedures Referred By Contac t Referred To Contact [facility] Diagnoses Screening for colon cancer Hyperlipidemia, mixed Gastroesophageal reflux disease, unspecified whether esophagitis present Irritable bowel syndrome with constipation Diarrhea, unspecified type Personal history of colonic polyps Procedures EGD DIAGNOSTIC ESOPHAGOGASTRODUODENOSC OPY TRANSORAL DIAGNOSTIC John Chowdhury MD [address] [address] [facility] [address] [address] Referral ID Status Reason Start Date Expiration Date Visits Requested Visits Authorized [id number] Authorized Auto-Generate d Referral Patient Cleared - Qualified 100% FAS 02/08/2024 05/08/2024 99 99 Specialty Diagnoses / Procedures Referred By Contac t Referred To Contact [facility] Diagnoses Screening for colon cancer Hyperlipidemia, mixed Gastroesophageal reflux disease, unspecified whether esophagitis present Irritable bowel syndrome with constipation Diarrhea, unspecified type Personal history of colonic polyps Procedures COLONOSCOPY SCREENING COLONOSCOPY SCREENING COLONOSCOPY FLX DX W/COLLJ SPEC WHEN John Richardson MD [address] [place] [address] [facility] Disease [address] [address] Referral ID Status Reason Start Date Expiration Date Visits Requested Visits Authorized [id number] Pending Review Auto-Generat ed Referral 02/08/2024 02/07/2025 1 1 Specialty Diagnoses / Procedures Referred By Contac t Referred To Contact Diagnoses External hemorrhoid Su Ham, WATCHER [employer].TRANSFER STATION OPERATOR [address] [place] [address] Referral ID Status Reason Start Date Expiration Date V isits Requested Visits Authorized [id number] Pending Review 1 1 Specialty Diagnoses / Procedures Referred By Contac t Referred To Contact Diagnoses Asthma, moderate persistent, well-controlled Chronic allergic rhinitis Allyson Gonzalez PA-C [address] [place] [address] Referral ID Status Reason Start Date Expiration Date V isits Requested Visits Authorized [id number] Authorized 10/06/2024 10/05/2025 1 1 Specialty Diagnoses / Procedures Referred By Contac t Referred To Contact CT IMAGING Diagnoses Tobacco abuse Encounter for screening for lung cancer Procedures CT LUNG SCREEN WO IVCON COMPUTED TOMOGRAPHY THORAX LW DOSE LNG CA SCR Evelyn- Elmira Farrar, WATCHER [employer]OUT [employer]OWER.TRANSFER STATION OPERATOR [address] [place] [address] [place] [address] Referral ID Status Reason Start Date Expiration Date Visits Requested Visits Authorized [id number] Pending Review Auto-Generat ed Referral 10/06/2024 11/05/2025 1 1 Chief Complaint and Reason for Visit Chief Complaint CERVICAL SPINE room 2 arm pain Reason for Visit Degenerative disc di sease, cervical Additional Source Comments (unrecognized sect ion and content) No Status Records FoundNo Status Records FoundNo Status Records FoundNo Status Records FoundNo Status Records FoundNo Status Records FoundNo Status Records Found INFORMATION SOURCE (unrecogn ized section and content) DATE CREATED AUTHOR 03/05/2018 [facility] DATE CREATED AUTHOR AUTHOR'S ORGANIZ ATION 03/05/2018 [facility] DATE CREATED AUTHOR AUTHOR'S ORGANIZ ATION 10/15/2018 [facility] DATE CREATED AUTHOR AUTHOR'S ORGANIZ ATION 04/27/2024 [facility] DATE CREATED AUTHOR AUTHOR'S ORGANIZ ATION 01/05/2025 [facility] DATE CREATED AUTHOR AUTHOR'S ORGANIZ ATION 02/07/2025 [facility] DATE CREATED AUTHOR AUTHOR'S ORGANIZ ATION 02/11/2025 [facility] Ce nter Source Comments (unrecognize d section and content) In the event this informatio n is protected by the Federal Confidentiality of Alcohol and Drug Abuse Patient Records regulations: The Federal rules restrict any use of the information to criminally investigate or prosecute any alcohol or drug abuse patient.[facility] the event this information is protected by the Federal Confidentiality of Alcohol and Drug Abuse Patient Records regulations: The Federal rules restrict any use of the information to criminally investigate or prosecute any alcohol or drug abuse patient.[facility] the event this information is protected by the Federal Confidentiality of Alcohol and Drug Abuse Patient Records regulations: The Federal rules restrict any use of the information to criminally investigate or prosecute any alcohol or drug abuse patient.[facility] HospitalIn the event this information is protected by the Federal Confidentiality of Alcohol and Drug Abuse Patient Records regulations: The Federal rules restrict any use of the information to criminally investigate or prosecute any alcohol or drug abuse patient.[facility] HospitalIn the event this information is protected by the Federal Confidentiality of Alcohol and Drug Abuse Patient Records regulations: The Federal rules restrict any use of the information to criminally investigate or prosecute any alcohol or drug abuse patient.[facility] HospitalIn the event this information is protected by the Federal Confidentiality of Alcohol and Drug Abuse Patient Records regulations: The Federal rules restrict any use of the information to criminally investigate or prosecute any alcohol or drug abuse patient.[facility] HospitalIn the event this information is protected by the Federal Confidentiality of Alcohol and Drug Abuse Patient Records regulations: The Federal rules restrict any use of the information to criminally investigate or prosecute any alcohol or drug abuse patient.[facility] HospitalIn the event this information is protected by the Federal Confidentiality of Alcohol and Drug Abuse Patient Records regulations: The Federal rules restrict any use of the information to criminally investigate or prosecute any alcohol or drug abuse patient.[facility] HospitalIn the event this information is protected by the Federal Confidentiality of Alcohol and Drug Abuse Patient Records regulations: The Federal rules restrict any use of the information to criminally investigate or prosecute any alcohol or drug abuse patient.[facility] HospitalIn the event this information is protected by the Federal Confidentiality of Alcohol and Drug Abuse Patient Records regulations: The Federal rules restrict any use of the information to criminally investigate or prosecute any alcohol or drug abuse patient.[facility] HospitalIn the event this information is protected by the Federal Confidentiality of Alcohol and Drug Abuse Patient Records regulations: The Federal rules restrict any use of the information to criminally investigate or prosecute any alcohol or drug abuse patient.[facility] HospitalIn the event this information is protected by the Federal Confidentiality of Alcohol and Drug Abuse Patient Records regulations: The Federal rules restrict any use of the information to criminally investigate or prosecute any alcohol or drug abuse patient.[facility] HospitalIn the event this information is protected by the Federal Confidentiality of Alcohol and Drug Abuse Patient Records regulations: The Federal rules restrict any use of the information to criminally investigate or prosecute any alcohol or drug abuse patient.[facility] HospitalIn the event this information is protected by the Federal Confidentiality of Alcohol and Drug Abuse Patient Records regulations: The Federal rules restrict any use of the information to criminally investigate or prosecute any alcohol or drug abuse patient.[facility] HospitalIn the event this information is protected by the Federal Confidentiality of Alcohol and Drug Abuse Patient Records regulations: The Federal rules restrict any use of the information to criminally investigate or prosecute any alcohol or drug abuse patient.[facility] HospitalIn the event this information is protected by the Federal Confidentiality of Alcohol and Drug Abuse Patient Records regulations: The Federal rules restrict any use of the information to criminally investigate or prosecute any alcohol or drug abuse patient.[facility] HospitalIn the event this information is protected by the Federal Confidentiality of Alcohol and Drug Abuse Patient Records regulations: The Federal rules restrict any use of the information to criminally investigate or prosecute any alcohol or drug abuse patient.[facility] HospitalIn the event this information is protected by the Federal Confidentiality of Alcohol and Drug Abuse Patient Records regulations: The Federal rules restrict any use of the information to criminally investigate or prosecute any alcohol or drug abuse patient.[facility] HospitalIn the event this information is protected by the Federal Confidentiality of Alcohol and Drug Abuse Patient Records regulations: The Federal rules restrict any use of the information to criminally investigate or prosecute any alcohol or drug abuse patient.[facility] HospitalIn the event this information is protected by the Federal Confidentiality of Alcohol and Drug Abuse Patient Records regulations: The Federal rules restrict any use of the information to criminally investigate or prosecute any alcohol or drug abuse patient.[facility] HospitalIn the event this information is protected by the Federal Confidentiality of Alcohol and Drug Abuse Patient Records regulations: The Federal rules restrict any use of the information to criminally investigate or prosecute any alcohol or drug abuse patient.[facility] HospitalIn the event this information is protected by the Federal Confidentiality of Alcohol and Drug Abuse Patient Records regulations: The Federal rules restrict any use of the information to criminally investigate or prosecute any alcohol or drug abuse patient.[facility] HospitalIn the event this information is protected by the Federal Confidentiality of Alcohol and Drug Abuse Patient Records regulations: The Federal rules restrict any use of the information to criminally investigate or prosecute any alcohol or drug abuse patient.[facility] HospitalIn the event this information is protected by the Federal Confidentiality of Alcohol and Drug Abuse Patient Records regulations: The Federal rules restrict any use of the information to criminally investigate or prosecute any alcohol or drug abuse patient.[facility] HospitalIn the event this information is protected by the Federal Confidentiality of Alcohol and Drug Abuse Patient Records regulations: The Federal rules restrict any use of the information to criminally investigate or prosecute any alcohol or drug abuse patient.[facility] HospitalIn the event this information is protected by the Federal Confidentiality of Alcohol and Drug Abuse Patient Records regulations: The Federal rules restrict any use of the information to criminally investigate or prosecute any alcohol or drug abuse patient.[facility] HospitalIn the event this information is protected by the Federal Confidentiality of Alcohol and Drug Abuse Patient Records regulations: The Federal rules restrict any use of the information to criminally investigate or prosecute any alcohol or drug abuse patient.[facility] HospitalIn the event this information is protected by the Federal Confidentiality of Alcohol and Drug Abuse Patient Records regulations: The Federal rules restrict any use of the information to criminally investigate or prosecute any alcohol or drug abuse patient.[facility] HospitalIn the event this information is protected by the Federal Confidentiality of Alcohol and Drug Abuse Patient Records regulations: The Federal rules restrict any use of the information to criminally investigate or prosecute any alcohol or drug abuse patient.[facility] HospitalIn the event this information is protected by the Federal Confidentiality of Alcohol and Drug Abuse Patient Records regulations: The Federal rules restrict any use of the information to criminally investigate or prosecute any alcohol or drug abuse patient.[facility] HospitalIn the event this information is protected by the Federal Confidentiality of Alcohol and Drug Abuse Patient Records regulations: The Federal rules restrict any use of the information to criminally investigate or prosecute any alcohol or drug abuse patient.[facility] HospitalIn the event this information is protected by the Federal Confidentiality of Alcohol and Drug Abuse Patient Records regulations: The Federal rules restrict any use of the information to criminally investigate or prosecute any alcohol or drug abuse patient.[facility] HospitalIn the event this information is protected by the Federal Confidentiality of Alcohol and Drug Abuse Patient Records regulations: The Federal rules restrict any use of the information to criminally investigate or prosecute any alcohol or drug abuse patient.[facility] HospitalIn the event this information is protected by the Federal Confidentiality of Alcohol and Drug Abuse Patient Records regulations: The Federal rules restrict any use of the information to criminally investigate or prosecute any alcohol or drug abuse patient.[facility] HospitalIn the event this information is protected by the Federal Confidentiality of Alcohol and Drug Abuse Patient Records regulations: The Federal rules restrict any use of the information to criminally investigate or prosecute any alcohol or drug abuse patient.[facility] HospitalIn the event this information is protected by the Federal Confidentiality of Alcohol and Drug Abuse Patient Records regulations: The Federal rules restrict any use of the information to criminally investigate or prosecute any alcohol or drug abuse patient.[facility] HospitalIn the event this information is protected by the Federal Confidentiality of Alcohol and Drug Abuse Patient Records regulations: The Federal rules restrict any use of the information to criminally investigate or prosecute any alcohol or drug abuse patient.[facility] HospitalIn the event this information is protected by the Federal Confidentiality of Alcohol and Drug Abuse Patient Records regulations: The Federal rules restrict any use of the information to criminally investigate or prosecute any alcohol or drug abuse patient.[facility] HospitalIn the event this information is protected by the Federal Confidentiality of Alcohol and Drug Abuse Patient Records regulations: The Federal rules restrict any use of the information to criminally investigate or prosecute any alcohol or drug abuse patient.[facility] HospitalIn the event this information is protected by the Federal Confidentiality of Alcohol and Drug Abuse Patient Records regulations: The Federal rules restrict any use of the information to criminally investigate or prosecute any alcohol or drug abuse patient.[facility] HospitalIn the event this information is protected by the Federal Confidentiality of Alcohol and Drug Abuse Patient Records regulations: The Federal rules restrict any use of the information to criminally investigate or prosecute any alcohol or drug abuse patient.[facility] HospitalIn the event this information is protected by the Federal Confidentiality of Alcohol and Drug Abuse Patient Records regulations: The Federal rules restrict any use of the information to criminally investigate or prosecute any alcohol or drug abuse patient.[facility] HospitalIn the event this information is protected by the Federal Confidentiality of Alcohol and Drug Abuse Patient Records regulations: The Federal rules restrict any use of the information to criminally investigate or prosecute any alcohol or drug abuse patient.[facility] HospitalIn the event this information is protected by the Federal Confidentiality of Alcohol and Drug Abuse Patient Records regulations: The Federal rules restrict any use of the information to criminally investigate or prosecute any alcohol or drug abuse patient.[facility] HospitalIn the event this information is protected by the Federal Confidentiality of Alcohol and Drug Abuse Patient Records regulations: The Federal rules restrict any use of the information to criminally investigate or prosecute any alcohol or drug abuse patient.[facility] HospitalIn the event this information is protected by the Federal Confidentiality of Alcohol and Drug Abuse Patient Records regulations: The Federal rules restrict any use of the information to criminally investigate or prosecute any alcohol or drug abuse patient.[facility] HospitalIn the event this information is protected by the Federal Confidentiality of Alcohol and Drug Abuse Patient Records regulations: The Federal rules restrict any use of the information to criminally investigate or prosecute any alcohol or drug abuse patient.[facility] HospitalIn the event this information is protected by the Federal Confidentiality of Alcohol and Drug Abuse Patient Records regulations: The Federal rules restrict any use of the information to criminally investigate or prosecute any alcohol or drug abuse patient.[facility] HospitalIn the event this information is protected by the Federal Confidentiality of Alcohol and Drug Abuse Patient Records regulations: The Federal rules restrict any use of the information to criminally investigate or prosecute any alcohol or drug abuse patient.[facility] HospitalIn the event this information is protected by the Federal Confidentiality of Alcohol and Drug Abuse Patient Records regulations: The Federal rules restrict any use of the information to criminally investigate or prosecute any alcohol or drug abuse patient.[facility] HospitalIn the event this information is protected by the Federal Confidentiality of Alcohol and Drug Abuse Patient Records regulations: The Federal rules restrict any use of the information to criminally investigate or prosecute any alcohol or drug abuse patient.[facility] HospitalIn the event this information is protected by the Federal Confidentiality of Alcohol and Drug Abuse Patient Records regulations: The Federal rules restrict any use of the information to criminally investigate or prosecute any alcohol or drug abuse patient.[facility] HospitalIn the event this information is protected by the Federal Confidentiality of Alcohol and Drug Abuse Patient Records regulations: The Federal rules restrict any use of the information to criminally investigate or prosecute any alcohol or drug abuse patient.[facility] HospitalIn the event this information is protected by the Federal Confidentiality of Alcohol and Drug Abuse Patient Records regulations: The Federal rules restrict any use of the information to criminally investigate or prosecute any alcohol or drug abuse patient.[facility] HospitalIn the event this information is protected by the Federal Confidentiality of Alcohol and Drug Abuse Patient Records regulations: The Federal rules restrict any use of the information to criminally investigate or prosecute any alcohol or drug abuse patient.[facility] HospitalIn the event this information is protected by the Federal Confidentiality of Alcohol and Drug Abuse Patient Records regulations: The Federal rules restrict any use of the information to criminally investigate or prosecute any alcohol or drug abuse patient.[facility] HospitalIn the event this information is protected by the Federal Confidentiality of Alcohol and Drug Abuse Patient Records regulations: The Federal rules restrict any use of the information to criminally investigate or prosecute any alcohol or drug abuse patient.[facility] HospitalIn the event this information is protected by the Federal Confidentiality of Alcohol and Drug Abuse Patient Records regulations: The Federal rules restrict any use of the information to criminally investigate or prosecute any alcohol or drug abuse patient.[facility] HospitalIn the event this information is protected by the Federal Confidentiality of Alcohol and Drug Abuse Patient Records regulations: The Federal rules restrict any use of the information to criminally investigate or prosecute any alcohol or drug abuse patient.[facility] HospitalIn the event this information is protected by the Federal Confidentiality of Alcohol and Drug Abuse Patient Records regulations: The Federal rules restrict any use of the information to criminally investigate or prosecute any alcohol or drug abuse patient.[facility] HospitalIn the event this information is protected by the Federal Confidentiality of Alcohol and Drug Abuse Patient Records regulations: The Federal rules restrict any use of the information to criminally investigate or prosecute any alcohol or drug abuse patient.[facility] HospitalIn the event this information is protected by the Federal Confidentiality of Alcohol and Drug Abuse Patient Records regulations: The Federal rules restrict any use of the information to criminally investigate or prosecute any alcohol or drug abuse patient.[facility] HospitalIn the event this information is protected by the Federal Confidentiality of Alcohol and Drug Abuse Patient Records regulations: The Federal rules restrict any use of the information to criminally investigate or prosecute any alcohol or drug abuse patient.[facility] HospitalIn the event this information is protected by the Federal Confidentiality of Alcohol and Drug Abuse Patient Records regulations: The Federal rules restrict any use of the information to criminally investigate or prosecute any alcohol or drug abuse patient.[facility] HospitalIn the event this information is protected by the Federal Confidentiality of Alcohol and Drug Abuse Patient Records regulations: The Federal rules restrict any use of the information to criminally investigate or prosecute any alcohol or drug abuse patient.[facility] HospitalIn the event this information is protected by the Federal Confidentiality of Alcohol and Drug Abuse Patient Records regulations: The Federal rules restrict any use of the information to criminally investigate or prosecute any alcohol or drug abuse patient.[facility] HospitalIn the event this information is protected by the Federal Confidentiality of Alcohol and Drug Abuse Patient Records regulations: The Federal rules restrict any use of the information to criminally investigate or prosecute any alcohol or drug abuse patient.[facility] HospitalIn the event this information is protected by the Federal Confidentiality of Alcohol and Drug Abuse Patient Records regulations: The Federal rules restrict any use of the information to criminally investigate or prosecute any alcohol or drug abuse patient.[facility] HospitalIn the event this information is protected by the Federal Confidentiality of Alcohol and Drug Abuse Patient Records regulations: The Federal rules restrict any use of the information to criminally investigate or prosecute any alcohol or drug abuse patient.[facility] HospitalIn the event this information is protected by the Federal Confidentiality of Alcohol and Drug Abuse Patient Records regulations: The Federal rules restrict any use of the information to criminally investigate or prosecute any alcohol or drug abuse patient.[facility] HospitalIn the event this information is protected by the Federal Confidentiality of Alcohol and Drug Abuse Patient Records regulations: The Federal rules restrict any use of the information to criminally investigate or prosecute any alcohol or drug abuse patient.[facility] HospitalIn the event this information is protected by the Federal Confidentiality of Alcohol and Drug Abuse Patient Records regulations: The Federal rules restrict any use of the information to criminally investigate or prosecute any alcohol or drug abuse patient.[facility] HospitalIn the event this information is protected by the Federal Confidentiality of Alcohol and Drug Abuse Patient Records regulations: The Federal rules restrict any use of the information to criminally investigate or prosecute any alcohol or drug abuse patient.[facility] HospitalIn the event this information is protected by the Federal Confidentiality of Alcohol and Drug Abuse Patient Records regulations: The Federal rules restrict any use of the information to criminally investigate or prosecute any alcohol or drug abuse patient.[facility] HospitalIn the event this information is protected by the Federal Confidentiality of Alcohol and Drug Abuse Patient Records regulations: The Federal rules restrict any use of the information to criminally investigate or prosecute any alcohol or drug abuse patient.[facility] HospitalIn the event this information is protected by the Federal Confidentiality of Alcohol and Drug Abuse Patient Records regulations: The Federal rules restrict any use of the information to criminally investigate or prosecute any alcohol or drug abuse patient.[facility] HospitalIn the event this information is protected by the Federal Confidentiality of Alcohol and Drug Abuse Patient Records regulations: The Federal rules restrict any use of the information to criminally investigate or prosecute any alcohol or drug abuse patient.[facility] HospitalIn the event this information is protected by the Federal Confidentiality of Alcohol and Drug Abuse Patient Records regulations: The Federal rules restrict any use of the information to criminally investigate or prosecute any alcohol or drug abuse patient.[facility] HospitalIn the event this information is protected by the Federal Confidentiality of Alcohol and Drug Abuse Patient Records regulations: The Federal rules restrict any use of the information to criminally investigate or prosecute any alcohol or drug abuse patient.[facility] HospitalIn the event this information is protected by the Federal Confidentiality of Alcohol and Drug Abuse Patient Records regulations: The Federal rules restrict any use of the information to criminally investigate or prosecute any alcohol or drug abuse patient.[facility] HospitalIn the event this information is protected by the Federal Confidentiality of Alcohol and Drug Abuse Patient Records regulations: The Federal rules restrict any use of the information to criminally investigate or prosecute any alcohol or drug abuse patient.[facility] HospitalIn the event this information is protected by the Federal Confidentiality of Alcohol and Drug Abuse Patient Records regulations: The Federal rules restrict any use of the information to criminally investigate or prosecute any alcohol or drug abuse patient.[facility] HospitalIn the event this information is protected by the Federal Confidentiality of Alcohol and Drug Abuse Patient Records regulations: The Federal rules restrict any use of the information to criminally investigate or prosecute any alcohol or drug abuse patient.[facility] HospitalIn the event this information is protected by the Federal Confidentiality of Alcohol and Drug Abuse Patient Records regulations: The Federal rules restrict any use of the information to criminally investigate or prosecute any alcohol or drug abuse patient.[facility] HospitalIn the event this information is protected by the Federal Confidentiality of Alcohol and Drug Abuse Patient Records regulations: The Federal rules restrict any use of the information to criminally investigate or prosecute any alcohol or drug abuse patient.[facility] HospitalIn the event this information is protected by the Federal Confidentiality of Alcohol and Drug Abuse Patient Records regulations: The Federal rules restrict any use of the information to criminally investigate or prosecute any alcohol or drug abuse patient.[facility] HospitalIn the event this information is protected by the Federal Confidentiality of Alcohol and Drug Abuse Patient Records regulations: The Federal rules restrict any use of the information to criminally investigate or prosecute any alcohol or drug abuse patient.[facility] HospitalIn the event this information is protected by the Federal Confidentiality of Alcohol and Drug Abuse Patient Records regulations: The Federal rules restrict any use of the information to criminally investigate or prosecute any alcohol or drug abuse patient.[facility] HospitalIn the event this information is protected by the Federal Confidentiality of Alcohol and Drug Abuse Patient Records regulations: The Federal rules restrict any use of the information to criminally investigate or prosecute any alcohol or drug abuse patient.[facility] HospitalIn the event this information is protected by the Federal Confidentiality of Alcohol and Drug Abuse Patient Records regulations: The Federal rules restrict any use of the information to criminally investigate or prosecute any alcohol or drug abuse patient.[facility] HospitalIn the event this information is protected by the Federal Confidentiality of Alcohol and Drug Abuse Patient Records regulations: The Federal rules restrict any use of the information to criminally investigate or prosecute any alcohol or drug abuse patient.[facility] HospitalIn the event this information is protected by the Federal Confidentiality of Alcohol and Drug Abuse Patient Records regulations: The Federal rules restrict any use of the information to criminally investigate or prosecute any alcohol or drug abuse patient.[facility] HospitalIn the event this information is protected by the Federal Confidentiality of Alcohol and Drug Abuse Patient Records regulations: The Federal rules restrict any use of the information to criminally investigate or prosecute any alcohol or drug abuse patient.[facility] HospitalIn the event this information is protected by the Federal Confidentiality of Alcohol and Drug Abuse Patient Records regulations: The Federal rules restrict any use of the information to criminally investigate or prosecute any alcohol or drug abuse patient.[facility] HospitalIn the event this information is protected by the Federal Confidentiality of Alcohol and Drug Abuse Patient Records regulations: The Federal rules restrict any use of the information to criminally investigate or prosecute any alcohol or drug abuse patient.[facility] HospitalIn the event this information is protected by the Federal Confidentiality of Alcohol and Drug Abuse Patient Records regulations: The Federal rules restrict any use of the information to criminally investigate or prosecute any alcohol or drug abuse patient.[facility] HospitalIn the event this information is protected by the Federal Confidentiality of Alcohol and Drug Abuse Patient Records regulations: The Federal rules restrict any use of the information to criminally investigate or prosecute any alcohol or drug abuse patient.[facility] HospitalIn the event this information is protected by the Federal Confidentiality of Alcohol and Drug Abuse Patient Records regulations: The Federal rules restrict any use of the information to criminally investigate or prosecute any alcohol or drug abuse patient.[facility] HospitalIn the event this information is protected by the Federal Confidentiality of Alcohol and Drug Abuse Patient Records regulations: The Federal rules restrict any use of the information to criminally investigate or prosecute any alcohol or drug abuse patient.[facility] HospitalIn the event this information is protected by the Federal Confidentiality of Alcohol and Drug Abuse Patient Records regulations: The Federal rules restrict any use of the information to criminally investigate or prosecute any alcohol or drug abuse patient.[facility] HospitalIn the event this information is protected by the Federal Confidentiality of Alcohol and Drug Abuse Patient Records regulations: The Federal rules restrict any use of the information to criminally investigate or prosecute any alcohol or drug abuse patient.[facility] HospitalIn the event this information is protected by the Federal Confidentiality of Alcohol and Drug Abuse Patient Records regulations: The Federal rules restrict any use of the information to criminally investigate or prosecute any alcohol or drug abuse patient.[facility] HospitalIn the event this information is protected by the Federal Confidentiality of Alcohol and Drug Abuse Patient Records regulations: The Federal rules restrict any use of the information to criminally investigate or prosecute any alcohol or drug abuse patient.[facility] HospitalIn the event this information is protected by the Federal Confidentiality of Alcohol and Drug Abuse Patient Records regulations: The Federal rules restrict any use of the information to criminally investigate or prosecute any alcohol or drug abuse patient.[facility] HospitalIn the event this information is protected by the Federal Confidentiality of Alcohol and Drug Abuse Patient Records regulations: The Federal rules restrict any use of the information to criminally investigate or prosecute any alcohol or drug abuse patient.[facility] Reason for Visit (unrecogniz ed section and content) Reason Comments Radiology CT Specialty Diagnoses / Procedures Referred By Contac t Referred To Contact CT IMAGING Diagnoses Wheezing Bronchitis Procedures CT CHEST WO IVCON DIAGNOSTIC COMPUTED TOMOGRAPHY THORAX W/O CNTRST Su Ham, WATCHER LOOKOUT TOWER.TRANSFER STATION OPERATOR [address] [place] [address] [place] [address] Referral ID Status Reason Start Date Expiration Date V isits Requested Visits Authorized [id number] Closed Auto-Generate d Referral 09/25/2022 11/24/2022 1 1 Reason Comments PT Discharge Specialty Diagnoses / Procedures Referred By Contac t Referred To Contact [facility] Diagnoses Neck pain without injury Procedures CONSULT TO PHYSICAL THERAPY PHYSICAL THERAPY EVALUATION HIGH COMPLEX 45 MINS Su Bass, WATCHER LOOKOUT TOWER.TRANSFER STATION OPERATOR [address] [place] [address] [facility] [place] [address] [place] [address] Referral ID Status Reason Start Date Expiration Date Visits Requested Visits Authorized [id number] Authorized Auto-Generat ed Referral 12/09/2021 09/09/2022 30 30 Reason Comments Physical Therapy Reason Comments Employment Physical Specialty Diagnoses / Procedures Referred By Contac t Referred To Contact Family Practice / FAMILY MEDICINE Diagnoses DOT PHYSICAL Procedures OFFICE/OUTPATIENT NEW MODERATE MDM 45-59 MINUTES 4C DOT PHYSICAL Self Lita Ludwig PA-C [address] [place] [address] Referral ID Status Reason Start Date Expiration Date Visits Re quested Visits Authorized [id number] Closed 12/12/2021 09/09/2022 1 1 Reason Onset Date Comments Refill Request 01/12/2022 Reason Onset Date Comments Refill Request 02/23/2022 Reason Onset Date Comments Refill Request 03/27/2022 Reason Comments Cough Pt reported chest co ngestion, cough denied chest pain, increased SOB Reason Onset Date Comments Refill Request 04/18/2022 Reason Onset Date Comments Refill Request 04/20/2022 Reason Comments Neck Pain Specialty Diagnoses / Procedures Referred By Contac t Referred To Contact Family Practice / FAMILY MEDICINE Diagnoses Pain in my neck covering from left to center. Procedures MYC OFFICE VISIT Miki, Avni Hoffmann DO [address] [place] [address] Referral ID Status Reason Start Date Expiration Date Visits Re quested Visits Authorized [id number] Closed 05/19/2022 09/09/2022 1 1 Reason Comments Results Reason Comments PT Eval Specialty Diagnoses / Procedures Referred By Ange t Referred To Contact Radiology / RADIO CT SCAN [facility] Diagnoses Dx: Localized swelling, mass and lump, neck [R22.1]; Neck pain without injury [M54.2]; Localized enlarged lymph nodes [R59.0] Patient calling to move this up as he got approval [id number] 06/01/2022 - 07/21/[address] SOFT TISSUE NECK W/CONTRAST MATERIAL CT WWO LORRAINE B [address] Avni Salcedo, DO [address] [place] [address] Scan [facility] [address] [place] [address] Referral ID Status Reason Start Date Expiration Date Visits Requested Visits Authorized [id number] Waiting for Response Patient Cleared - Admin/Chair man/Directo r advise to proceed 06/01/2022 08/30/2022 1 1 Reason Comments Results Reason Comments Follow Up Physical Therapy Reason Onset Date Comments Refill Request 07/20/2022 Reason Onset Date Comments Refill Request 08/08/2022 Reason Comments Chest Congestion cough, sinus pressur e, drainage and ear pain x 5 days Reason Comments URI Started last week with sinus stuff then gotten worse each day, cough, sob, muscles sore from cough. Lost voice., no fevers or chills or body aches Reason Comments image request Reason Comments Results Reason Comments F/U 3 Month Specialty Diagnoses / Procedures Referred By Ange t Referred To Contact Family Medicine / FAMILY MEDICINE Diagnoses 3 month follow up Procedures 4C EST Self Avni Salcedo, DO [address] [place] [address] Referral ID Status Reason Start Date Expiration Date Visits Re quested Visits Authorized [id number] Closed 10/11/2022 09/09/2023 1 1 Reason Comments Spirometry Specialty Diagnoses / Procedures Referred By Ange t Referred To Contact [facility] Diagnoses Bronchitis Asthma, moderate persistent, well-controlled Sarcoidosis of lung (HCC) Procedures SPIROMETRY - BASELINE AND POST DILATOR BRNCDILAT RSPSE SPMTRY PRE&POST-BRNCDILAT ADMN Su Ham, ANA.TRANSFER STATION OPERATOR [address] [place] [address] [facility] [place] [address] [place] [id number] Referral ID Status Reason Start Date Expiration Date V isits Requested Visits Authorized [id number] Closed Auto-Generate d Referral 10/02/2022 11/01/2023 1 1 Specialty Diagnoses / Procedures Referred By Contac t Referred To Contact [facility] Diagnoses Bronchitis Asthma, moderate persistent, well-controlled Sarcoidosis of lung (HCC) Procedures LUNG VOLUMES Su Ham APRN.TRANSFER STATION OPERATOR [address] [place] [address] [facility] [place] [address] [place] [id number] Referral ID Status Reason Start Date Expiration Date V isits Requested Visits Authorized [id number] Closed Auto-Generate d Referral 10/13/2022 09/09/2023 1 1 Reason Onset Date Comments Refill Request 10/16/2022 Reason Comments Appointment Reason Comments Follow Up On dm and cholestero l and rt shoulder pain down to fingers has gotten worse Reason Comments F/U 3 Month Reason Onset Date Comments Refill Request 01/19/2023 Reason Onset Date Comments Refill Request 04/06/2023 Reason Onset Date Comments Refill Request 05/04/2023 Reason Onset Date Comments Refill Request 07/30/2023 Reason Onset Date Comments Refill Request 08/08/2023 Reason Onset Date Comments Refill Request 11/22/2023 Reason Comments follow up o meds Specialty Diagnoses / Procedures Referred By Contac t Referred To Contact [facility] Diagnoses Encounter to establish care Procedures OFFICE/OP CONSLTJ NEW/EST PT MOD MDM 40 [place] [address] Referral ID Status Reason Start Date Expiration Date Visits Requested Visits Authorized [id number] Authorized Patient Cleared - Qualified 100% FAS 01/30/2024 04/29/2024 99 99 Reason Comments Consult Screening for colon cancer Specialty Diagnoses / Procedures Referred By Contac t Referred To Contact General Surgery Diagnoses Screening for colon cancer Procedures CONSULT TO GENERAL SURGERY OFFICE/OUTPATIENT NEW HIGH MDM 60 MINUTES Su Ham APRN.TRANSFER STATION OPERATOR [address] [place] [address] Referral ID Status Reason Start Date Expiration Date V isits Requested Visits Authorized [id number] Closed PCP Requested Referral 01/31/2024 01/30/2025 1 1 Reason Onset Date Comments Refill Request 02/20/2024 Reason Comments BP Check Specialty Diagnoses / Procedures Referred By Contac t Referred To Contact [facility] Diagnoses Encounter to establish care Procedures OFFICE/OP CONSLTJ NEW/EST PT MOD MDM 40 MINUTES Self [facility] [place] [address] Reason Comments Follow Up Review EGD and colon oscopy results. Reason Onset Date Comments Refill Request 04/28/2024 Reason Onset Date Comments Refill Request 06/06/2024 Reason Comments Radiology XR Specialty Diagnoses / Procedures Referred By Contac t Referred To Contact [facility] Diagnoses fatigue, sob, cough, sinus and headache Procedures consult Elsie Johansen PA-C [address] [place] [address] [facility] [address] [place] [address] Referral ID Status Reason Start Date Expiration Date V isits Requested Visits Authorized [id number] Closed OON/Self Pay Override 09/23/2020 12/22/2020 1 1 Reason Comments Follow Up Reason Comments Radiology CT Specialty Diagnoses / Procedures [facility] Diagnoses Pulmonary nodule Procedures CT CHEST WO IVCON DIAGNOSTIC COMPUTED TOMOGRAPHY THORAX W/O CNTRST Avni Salcedo, [address] [place] [address] [place] [address] Referral ID Status Reason Start Date Expiration Date V isits Requested Visits Authorized [id number] Closed Auto-Generat ed Referral Patient Cleared - Admin/Chairm an/Director advise to proceed or did not respond 06/19/2024 08/18/2024 1 1 Reason Onset Date Comments Refill Request 07/25/2024 Reason Comments Refill Request Reason Comments Patient Question Refill Request Reason Comments Insurance Authorization Hydrocortisone s uppository Reason Onset Date Comments Refill Request 10/06/2024 Reason Comments Recheck follow up of last CT scan for lung cancer screening Reason Comments Insurance Authorization Reason Comments Asthma COPD Reason Onset Date Comments Refill Request 10/15/2024 Specialty Diagnoses / Procedures Referred By Contac t Referred To Contact [facility] Diagnoses Asthma-COPD overlap syndrome (HCC) Procedures NITRIC OXIDE, EXHALED NITRIC OXIDE GAS DETERMINATION Shayla Rogers MD [address] [place] [address] Phone: tel: fax: [facility] [address] [address] Referral ID Status Reason Start Date Expiration Date V isits Requested Visits Authorized [id number] Closed Auto-Generate d Referral 10/09/2024 11/08/2025 1 1 Specialty Diagnoses / Procedures Referred By Contac t Referred To Contact [facility] Diagnoses Asthma-COPD overlap syndrome (HCC) Procedures SPIROMETRY - BASELINE AND POST DILATOR BRNCDILAT RSPSE SPMTRY PRE&POST-BRNCDILAT ADMShyala Perez MD [address] [place] [address] Phone: tel: fax: [address] [address] Referral ID Status Reason Start Date Expiration Date V isits Requested Visits Authorized [id number] Closed Auto-Generate d Referral 10/09/2024 11/08/2025 1 1 Reason Comments Established Patient 3 month follow up as thco Reason Comments 6 Month Exam Reason Comments Abdominal Pain Left side pain Reason Onset Date Comments Results 01/12/2025 Reason Onset Date Comments Results 01/13/2025 Care Teams (unrecognized sec tion and content) Director Athletic Relationship Specialty Start Date End Date Avni Salcedo DO [address] [place], [place] [id number] PCP - General Family Practice 09/22/13 Director Athletic Relationship Specialty Start Date End Date Avni Salcedo DO [address] [place], [place] [id number] PCP - General Family Practice 09/22/13 Director Athletic Relationship Specialty Start Date End Date Avni Salcedo, DO [address] [place] [address] PCP - General Family Practice 09/22/13 Director Athletic Relationship Specialty Start Date End Date Avni Salcedo, DO [address] [place] [address] PCP - General Family Practice 09/22/13 Director Athletic Relationship Specialty Start Date End Date Avni Salcedo, DO [address] [place] [address] PCP - General Family Practice 09/22/13 Director Athletic Relationship Specialty Start Date End Date Avni Salcedo, DO [address] [place] [address] PCP - General Family Practice 09/22/13 Director Athletic Relationship Specialty Start Date End Date Avni Salcedo, DO [address] [place] [address] PCP - General Family Practice 09/22/13 Director Athletic Relationship Specialty Start Date End Date Avni Salcedo, DO [address] [place] [address] PCP - General Family Practice 09/22/13 Director Athletic Relationship Specialty Start Date End Date Avni Salcedo, DO [address] [place] [address] PCP - General Family Practice 09/22/13 Director Athletic Relationship Specialty Start Date End Date Avni Salcedo, DO [address] [place] [address] PCP - General Family Practice 09/22/13 Director Athletic Relationship Specialty Start Date End Date Avni Salcedo, DO [address] [place] [address] PCP - General Family Practice 09/22/13 Director Athletic Relationship Specialty Start Date End Date Avni Salcedo, DO [address] [place] [address] PCP - General Family Practice 09/22/13 Director Athletic Relationship Specialty Start Date End Date Avni Salcedo, DO [address] [place] [address] PCP - General Family Medicine 09/22/13 Director Athletic Relationship Specialty Start Date End Date Avni Salcedo, DO [address] [place] [address] PCP - General Family Medicine 09/22/13 Director Athletic Relationship Specialty Start Date End Date Avni Salcedo, DO [address] [place] [address] PCP - General Family Medicine 09/22/13 Director Athletic Relationship Specialty Start Date End Date Avni Salcedo, DO [address] [place] [address] PCP - General Family Medicine 09/22/13 Director Athletic Relationship Specialty Start Date End Date Avni Salcedo, DO [address] [place] [address] PCP - General Family Medicine 09/22/13 Director Athletic Relationship Specialty Start Date End Date Avni Sacledo, DO [address] [place] [address] PCP - General Family Medicine 09/22/13 Director Athletic Relationship Specialty Start Date End Date Avni Salcedo, DO [address] [place] [address] PCP - General Family Medicine 09/22/13 Director Athletic Relationship Specialty Start Date End Date Avni Salcedo, DO [address] [place] [address] PCP - General Family Medicine 09/22/13 Director Athletic Relationship Specialty Start Date End Date Avni Salcedo, DO [address] [place] [address] PCP - General Family Medicine 09/22/13 Director Athletic Relationship Specialty Start Date End Date Avni Salcedo, DO [address] [place] [address] PCP - General Family Medicine 09/22/13 Director Athletic Relationship Specialty Start Date End Date Avni Salcedo, DO [address] [place] [address] PCP - General Family Medicine 09/22/13 Director Athletic Relationship Specialty Start Date End Date Avni Salcedo, DO [address] [place] [address] PCP - General Family Medicine 09/22/13 Director Athletic Relationship Specialty Start Date End Date Avni Salcedo, DO [address] [place] [address] PCP - General Family Medicine 09/22/13 Director Athletic Relationship Specialty Start Date End Date Avni Salcedo, DO [address] [place] [address] PCP - General Family Medicine 09/22/13 Director Athletic Relationship Specialty Start Date End Date Avni Salcedo, DO [address] [place] [address] PCP - General Family Medicine 09/22/13 Director Athletic Relationship Specialty Start Date End Date Avni Salcedo, DO [address] [place] [address] PCP - General Family Medicine 09/22/13 Director Athletic Relationship Specialty Start Date End Date Avni Salcedo, DO [address] [place] [address] PCP - General Family Medicine 09/22/13 Director Athletic Relationship Specialty Start Date End Date Avni Salcedo, DO [address] [facility] [place] [address] PCP - General Family Medicine 09/22/13 Director Athletic Relationship Specialty Start Date End Date Avni Salcedo, DO [address] [facility] [place] [address] PCP - General Family Medicine 09/22/13 Director Athletic Relationship Specialty Start Date End Date Avni Salcedo, DO [address] [facility] [place] [address] PCP - General Family Medicine 09/22/13 Director Athletic Relationship Specialty Start Date End Date Avni Salcedo, DO [address] [facility] [place] [address] PCP - General Family Medicine 09/22/13 Director Athletic Relationship Specialty Start Date End Date Avni Salcedo, DO [address] [facility] [address] PCP - General Family Medicine 09/22/13 Director Athletic Relationship Specialty Start Date End Date Avni Salcedo, DO [address] [facility] [address] PCP - General Family Medicine 09/22/13 Director Athletic Relationship Specialty Start Date End Date Avni Salcedo, DO [address] [facility] [address] PCP - General Family Medicine 09/22/13 Team Status: Active Member Role Status Dates Dr. Avni Salcedo , DO Family Provider Active Dr. Avni Salcedo , DO Primary Care Provider Active Team Status: Inactive Member Role Status Dates Dr. Avni Salcedo , DO Primary Care Provider, Referr ing Provider Active Dr. Alok Purvis , DO Attending Provider Active Team Status: Inactive Member Role Status Dates Dr. Avni Salcedo DO Primary Care Provider Active Dr. Hood Vang MD Attending Provider Active Team Status: Inactive Member Role Status Dates Dr. Avni Salcedo DO Primary Care Provider Active Dr. Rah Queen MD Emergency Provider Active Director Athletic Relationship Specialty Start Date End Date Avni Salcedo DO [address] [facility] [place] [address] PCP - General Family Medicine 09/22/13 Director Athletic Relationship Specialty Start Date End Date Avni Salcedo DO [address] [facility] [place] [address] PCP - General Family Medicine 09/22/13 Director Athletic Relationship Specialty Start Date End Date Avni Salcedo DO [address] [facility] [place] [address] PCP - General Family Medicine 09/22/13 Director Athletic Relationship Specialty Start Date End Date Avni Salcedo DO [address] [facility] [place] [address] PCP - General Family Medicine 09/22/13 Director Athletic Relationship Specialty Start Date End Date Avni Salcedo DO [address] [facility] [address] PCP - General Family Medicine 09/22/13 Director Athletic Relationship Specialty Start Date End Date Avni Salcedo DO [address] [facility] [place] [address] PCP - General Family Medicine 09/22/13 Director Athletic Relationship Specialty Start Date End Date Avni Salcedo DO [address] [facility] [place] [address] PCP - General Family Medicine 09/22/13 Director Athletic Relationship Specialty Start Date End Date Avni Salcedo, DO [address] [place] [address] PCP - General Family Medicine 09/22/13 Director Athletic Relationship Specialty Start Date End Date Avni Salcedo DO [address] [place] [address] PCP - General Family Medicine 09/22/13 Director Athletic Relationship Specialty Start Date End Date Avni Salcedo, DO [address] [place] [address] PCP - General Family Medicine 09/22/13 Director Athletic Relationship Specialty Start Date End Date Avni Salcedo DO [address] [place] [address] PCP - General Family Medicine 09/22/13 Director Athletic Relationship Specialty Start Date End Date Avni Salcedo DO [address] [place] [address] PCP - General Family Medicine 09/22/13 Director Athletic Relationship Specialty Start Date End Date Avni Salcedo DO [address] [place] [address] PCP - General Family Medicine 09/22/13 Director Athletic Relationship Specialty Start Date End Date Avni Salcedo DO [address] [facility] [address] PCP - General Family Medicine 09/22/13 Director Athletic Relationship Specialty Start Date End Date Avni Salcedo DO [address] [place] [address] PCP - General Family Medicine 09/22/13 Director Athletic Relationship Specialty Start Date End Date Avni Salcedo, [address] [place] [address] PCP - General Family Medicine 09/22/13 Director Athletic Relationship Specialty Start Date End Date Avni Salcedo, [address] [place] [address] PCP - General Family Medicine 09/22/13 Director Athletic Relationship Specialty Start Date End Date vAni Salcedo DO [address] [place] [address] PCP - General Family Medicine 09/22/13 Director Athletic Relationship Specialty Start Date End Date Avni Salcedo, [address] [place] [address] PCP - General Family Medicine 09/22/13 Director Athletic Relationship Specialty Start Date End Date Avni Salcedo DO [address] [place] [address] PCP - General Family Medicine 09/22/13 Director Athletic Relationship Specialty Start Date End Date Avni Salcedo, [address] [place] [address] PCP - General Family Medicine 09/22/13 Director Athletic Relationship Specialty Start Date End Date Avni Salcedo DO [address] [place] [address] PCP - General Family Medicine 09/22/13 Director Athletic Relationship Specialty Start Date End Date Avni Salcedo, [address] [place] [address] PCP - General Family Medicine 09/22/13 Director Athletic Relationship Specialty Start Date End Date Anvi Salcedo DO [address] [place] [address] PCP - General Family Medicine 09/22/13 Director Athletic Relationship Specialty Start Date End Date Avni Salcedo DO [address] [place] [address] PCP - General Family Medicine 09/22/13 Director Athletic Relationship Specialty Start Date End Date Avni Salcedo DO [address] [place] [address] PCP - General Family Medicine 09/22/13 Director Athletic Relationship Specialty Start Date End Date Avni Salcedo DO [address] [place] [address] PCP - General Family Medicine 09/22/13 Director Athletic Relationship Specialty Start Date End Date Avni Salcedo DO [address] [place] [address] PCP - General Family Medicine 09/22/13 Director Athletic Relationship Specialty Start Date End Date Avni Salcedo DO [address] [place] [address] PCP - General Family Medicine 09/22/13 Director Athletic Relationship Specialty Start Date End Date Avni Salcedo DO [address] [place] [address] PCP - General Family Medicine 09/22/13 Director Athletic Relationship Specialty Start Date End Date Avni Salcedo DO [address] [place] [address] PCP - General Family Medicine 09/22/13 Director Athletic Relationship Specialty Start Date End Date Avni Salcedo DO [address] [place] [address] PCP - General Family Medicine 09/22/13 Su Ham, WATCHER LOOKOUT TOWER.TRANSFER STATION OPERATOR [address] [place] [address] [employer] Family [facility] 08/17/24 ThaCatalina, WATCHER LOOKOUT TOWER.TRANSFER STATION OPERATOR [address] [place] [address] [facility] 08/[facility]/24 Director Athletic Relationship Specialty Start Date End Date Avni Salcedo DO [address] [place] [address] PCP - General Family Medicine 09/22/13 Su Ham, WATCHER LOOKOUT TOWER.TRANSFER STATION OPERATOR [address] [place] [address] [facility] 08/17/24 ThaCatalina, WATCHER LOOKOUT TOWER.TRANSFER STATION OPERATOR [address] [place] [address] [facility] 08/17/24 Director Athletic Relationship Specialty Start Date End Date Avni Salcedo DO [address] [facility] [place] [address] PCP - General Family Medicine 09/22/13 Su Ham, WATCHER LOOKOUT TOWER.TRANSFER STATION OPERATOR [address] [place] [address] [facility] 08/17/24 [facility] WATCHER LOOKOUT TOWER.TRANSFER STATION OPERATOR [address] [place] [address] [facility] 08/17/24 Director Athletic Relationship Specialty Start Date End Date Avni Salcedo DO [address] [place] [address] PCP - General Family Medicine 09/22/13 Su Ham, WATCHER LOOKOUT TOWER.TRANSFER STATION OPERATOR [address] [place] [address] [facility] 08/17/24 ThaCatalina, WATCHER LOOKOUT TOWER.TRANSFER STATION OPERATOR [address] [place] [address] [facility] 08/17/24 Director Athletic Relationship Specialty Start Date End Date Avni Salcedo DO [address] [place] [address] PCP - General Family Medicine 09/22/13 Su Ham, WATCHER LOOKOUT TOWER.TRANSFER STATION OPERATOR [address] [place] [address] [facility] 08/17/24 [facility] WATCHER LOOKOUT TOWER.TRANSFER STATION OPERATOR [address] [place] [address] [facility] 08/17/24 Director Athletic Relationship Specialty Start Date End Date Avni Salcedo DO [address] [place] [address] PCP - General Family Medicine 09/22/13 Su Ham, WATCHER LOOKOUT TOWER.TRANSFER STATION OPERATOR [address] [place] [address] [facility] 08/17/24 ThaCatalina, WATCHER LOOKOUT TOWER.TRANSFER STATION OPERATOR [address] [place] [address] [employer] Mill [facility] 08/17/24 Director Athletic Relationship Specialty Start Date End Date Avni Salcedo DO [address] [place] [address] PCP - General Family Medicine 09/22/13 Catalina Almazan, WATCHER LOOKOUT TOWER.TRANSFER STATION OPERATOR [address] [place] [address] [facility] 08/17/24 Director Athletic Relationship Specialty Start Date End Date Avni Salcedo DO [address] [place] [address] PCP - General Family Medicine 09/22/13 Catalina Almazan, WATCHER LOOKOUT TOWER.TRANSFER STATION OPERATOR [address] [place] [address] [facility] 08/17/24 Director Athletic Relationship Specialty Start Date End Date Avni Salcedo DO [address] [place] [address] PCP - General Family Medicine 09/22/13 ThaCatalina, WATCHER LOOKOUT TOWER.TRANSFER STATION OPERATOR [address] [place] [address] [facility] 08/17/24 Director Athletic Relationship Specialty Start Date End Date Avni Salcedo DO [address] [place] [address] PCP - General Family Medicine 09/22/13 ThaCatalina, WATCHER LOOKOUT TOWER.TRANSFER STATION OPERATOR [address] [facility] [place] [address] [employer] Family [facility] 08/17/24 Director Athletic Relationship Specialty Start Date End Date Avni Salcedo DO [address] [place] [address] PCP - General Family Medicine 09/22/13 ThaCatalina, WATCHER LOOKOUT TOWER.TRANSFER STATION OPERATOR [address] [place] [address] [employer] Family [facility] 08/17/24 Director Athletic Relationship Specialty Start Date End Date Avni Salcedo DO [address] [place] [address] PCP - General Family Medicine 09/22/13 Catalina Almazan, WATCHER LOOKOUT TOWER.TRANSFER STATION OPERATOR [address] [place] [address] [employer] Family [facility] 08/17/24 Director Athletic Relationship Specialty Start Date End Date Avni Salcedo DO [address] [place] [address] PCP - General Family Medicine 09/22/13 Catalina Almazan, WATCHER LOOKOUT TOWER.TRANSFER STATION OPERATOR [address] [place] [address] [employer] Family [facility] 08/17/24 Director Athletic Relationship Specialty Start Date End Date Avni Salcedo DO [address] [place] [address] PCP - General Family [facility] 09/22/13 Catalina Almazan APRN.TRANSFER STATION OPERATOR [address] [place] [address] [facility] 08/17/24 Director Athletic Relationship Specialty Start Date End Date Avni Salcedo DO [address] [place], [place] [address] PCP - General [facility] 09/22/13 Catalina Almazan APRN.TRANSFER STATION OPERATOR [address] [place] [address] [facility] 08/17/24 Director Athletic Relationship Specialty Start Date End Date Avni Salcedo, DO [address] [place], [place] [address] PCP - [facility] 09/22/13 Catalina Almazan, ANA.TRANSFER STATION OPERATOR [address] [place], [place] [address] [facility] 08/17/24 Goals (unrecognized section and content) Goals may be documented in a n alternate section FOR RECORDS PERTAINING TO PATIENTS WHO ARE OR HAVE BEEN ENROLLED IN A CHEMICAL DEPENDENCY/SUBSTANCEABUSE PROGRAM, SOME INFORMATION MAY BE OMITTED. This clinical summary was aggregated from multiple sources. Caution should be exercised in using it in the provision of clinical care. This summary normalizes information from multiple sources, and as a consequence, information in this document may materially change the coding, format and clinical context of patient data. In addition, data may be omitted in some cases. CLINICAL DECISIONS SHOULD BE BASED ON THE PRIMARY CLINICAL RECORDS. [employer] provides no warranty or guarantee of the accuracy or completeness of information in this document.
[2025-02-21] MEDS: Aspirin 81 MG TAB.CHEW 324 MG PO (11:16)
[2025-02-21 11:18] LABS: Absolute Lymphocyte Count 1.72 X10^3/uL (0.83-4.51); Absolute Neutrophil Count 4.5 X10^3/uL (2.0-7.7); Basophil# 0.05 X10^3/uL; Basophil% 0.7 % (0-1); Eosinophils% 2.8 % (0-5); Hematocrit 41.6 % (40-54); Hemoglobin 14.5 g/dL (13.0-16.5); Lymphocyte # 1.72 X10^3/ul (0.83-4.51); Mean Corp Hgb Conc 34.9 g/dL (32-36); Mean Corpuscular Volume 89.1 fL (80-94); Monocyte# 0.69 X10^3/uL; Monocyte% 9.6 % (0-10); NRBC Flagged by Analyzer 0 % (0-5); Neutrophil # 4.45 X10^3/uL (2.7-7.7); Neutrophil % 62.2 % (47-70); Platelet Count 210 K/mm3 (150-450); RBC Distribution Width CV 12.6 % (11.6-14.6); RBC Distribution Width SD 41.1 fl (35.1-43.9); Red Blood Count 4.67 M/mm3 (4.6-6.2); White Blood Count 7.2 K/mm3 (4.4-11.0)
[2025-02-21 11:46] LABS: Anion Gap 14 (5-15); BUN 25 mg/dL (4-19); BUN/Creat Ratio 17.2 RATIO (10-20); Calcium,Total 10.3 mg/dL (7.6-11.0); Carbon Dioxide 21.9 mmol/L (21.0-32.0); Chloride 98 mmol/L (98-108); Creatinine, Serum 1.47 mg/dL (0.70-1.20); EST Glomerular Filtration Rate 57 (>60); Estimated Creatinine Clearance 53.65 ml/min (50-250); Glucose 128 mg/dL (70-99); Potassium 4.7 mmol/L (3.3-5.1); Sodium Level 135 mmol/L (133-145); Troponin T High Sensitivity 9 ng/L (<=22)
[2025-02-21 13:03] LABS: Troponin T High Sens 2 HR 7 ng/L (<=22)
--- OUTSIDE RECORDS SUMMARY | 2025-02-21 14:39 | XMS RPT_ITS | CCD ---
Author Organization [facility] Care Team Providers Care Bacon Stringer Name Role Phone LEIA, INDRA E Unavailable Unavailable LEIA, INDRA E Unavailable Unavailable LEIA, INDRA Unavailable Unavailable LEIA, INDRA Unavailable Unavailable LEIA, INDRA Unavailable Unavailable LEIA, INDRA Unavailable Unavailable Suzi Granados Attending Unavailable [...] Attending Unavailable JOHN CHOWDHURY Referring Unavailable Jitendra DIGITAL ARCHIVIST.Su TORRES Unavailable Tha DIGITAL ARCHIVIST.Catalina TORRES Unavailable Avni Salcedo Primary Care Unavailable Pepper Sharma Referring Unavailable Pepper Sharma Attending Unavailable AVNI SALCEDO Primary Care Unavailable AVNI SALCEDO Referring Unavailable SHAYLA ROGERS Attending Unavailable SALCEDO, AVNI L Primary Care Unavailable SHAYLA ROGERS Referring Unavailable SALCEDO, AVNI Juany Primary Care Unavailable SHAYLA ROGERS Referring Unavailable YOON MAGANA Attending Unavailable SALCEDO, AVNI Juany Primary Care Unavailable TAVON VALENCIA Attending Unavailable SALCEDO, AVNI L Primary [...] DIPROPIONATE] Drug Allergy 7 Other: See Comments [facility] Repository (20 sources) budesonide / formoterol; Translations: [BUDESONIDE-FORMO TEROL] Drug Allergy 7 Other: See Comments [facility] Repository (20 sources) codeine; Translations: [CODEINE] Drug Allergy 5 GI Upset [facility] Repository (20 sources) fluticasone; Translations: [FLUTICASONE PROPIONATE] Drug Allergy 5 MIGRAINE [facility] Repository (2 sources) fluticasone / salmeterol; Translations: [FLUTICASONE-SALM ETEROL] Drug Allergy 7 AOF [facility] Repository (2 sources) OTHER; Translations: [OTHER] Propensity to adverse reactions (disorder) 1 AOF [facility] Repository (20 sources) TETANUS-DIPHTHERI A TOXOIDS-TD; Translations: [TETANUS-DIPHTHER IA TOXOIDS-TD] Propensity to adverse reactions to drug (disorder) 6 Swelling [facility] Repository (20 sources) DULoxetine; Translations: [DULOXETINE] Drug Allergy 0 Other: See Comments [facility] Work Phone: (20 sources) fluticasone / salmeterol; Translations: [FLUTICASONE PROPION-SALMETERO L] Drug Allergy 7 Other: See Comments [facility] Work Phone: (20 sources) gabapentin; Translations: [GABAPENTIN] Drug Allergy 8 Mental Status Change [facility] Work Phone: (20 sources) Environmental [Other] Propensity to adverse reactions 1 Unknown [facility] (20 sources) atomoxetine; Translations: [ATOMOXETINE] Drug Allergy 2 Mental Status Change [facility] Work Phone: (1 source) Tetanus immune globulin Drug Allergy 3 deltoid swelling/tende r at 15yo; requested Tdap update today [facility] (1 source) atomoxetine Drug Allergy 3 [facility] Repository (1 source) DULoxetine Drug Allergy 3 [facility] Repository (1 source) gabapentin Drug Allergy 3 [facility] Repository (1 source) Tetanus immune globulin Drug Allergy 3 [facility] Repository Medications Current Medications Medication Drug [...] on above: Take 1 capsule by mo [facility] once daily. cyclobenzaprine hydrochloride 10 mg [...] two hours as needed for headache rizatriptan ([employer]) 10 mg disintegrating tablet Indications: Migraine without aura and without status migrainosus, not intractable Take 1 tablet by mouth as needed for migraine headache (see administration instructions). May repeat in 2 hours if needed 10 tablet 1 04/09/2023 Active Start: 08-06-2019 End: 04-06-2023 take 1 tablet by mouth every two hours as needed for headache rizatriptan ([employer]) 10 mg disintegrating tablet Indications: Migraine without [...] / vilanterol 0.025 mg/actuat dry powder inhaler (9 sources) Anticholinergic, beta2-Adrenergic Agonist Start: 01-08-20 take [...] Agonist Start: 12-01-2016 End: 03-21-2021 Hydrocodone-Acetami nophen ([place]) 1 EACH tablet Discontinued 1 EACH PO [...] Comment on above: Take 1 capsule by [facility] once daily. calcium chloride 0.0014 meq/ml / [...] Comment on above: Take 1 capsule by [facility] once daily. hydrocortisone acetate 10 mg/ml / [...] March 21, 2021 8:35am polyethylene glycol 3350 738396 mg / potassium chloride 2970 mg / sodium bicarbonate 6740 mg / sodium chloride 5860 mg / sodium sulfate 25618 mg powder for oral solution (1 source) [...] Classification Problem Date Documented Da te Episodic/Chronic Administrative/social admission (1 source) Administrative reason for [...] sources) Daytime somnolence; Translations: [Somnolence] Onset: 5 04-30-2025 Episodic Deficiency and other anemia (20 sources) [...] [Chronic sinusitis, unspecified] Chronic Residual codes; unclassified (1 source) Procedure not done; Translations: [Procedure and treatment not carried out, unspecified reason] 02-21-2025 Episodic Residual codes; unclassified (2 sources) Other specified [...] pain; Translations: [Right upper quadrant pain] Onset: 07-17-2006 Resolved: 03-05-2009 03-05-2009 Episodic Allergic reactions (20 sources) Solar degeneration; Translations: [...] (20 sources) Drug therapy finding; Translations: [Other meterman (current) drug therapy] Onset: 03-23-2017 03-23-2017 Episodic [...] Test Name Value Interpretation Reference Range Facility [facility] 02-04-2025 [facility] Telephone (FAMPWS) MIHAELAJAKE ([id number]) 1975 M Date Time Provider Department 02/04/25 [...] PROPIO*05/18/2017 14 - Other: See Comments Comments: Kateush CODEINE 07/31/2005 8 - GI Upset CYMBALTA [...] capsule by mouth once daily. - rizatriptan ([employer]) 10 mg disintegrating tablet Take 1 tablet [...] behavior of (more content not included)... Normal [facility] POLYSOMNOGRAM (PSG)/HOME SLE EP APNEA TEST (HSAT)on 01-30-2025 POLYSOMNOGRAM (PSG)/HOME SLEEP APNEA TEST (HSAT) [facility] [address] [facility], [address] [place] [address] ; PSG Study Report Name: JAKE CHAIREZ Date of Study: 01/30/2025 [facility]#: [id number] Age: 49 (: 1975) ESS: 2 Neck Circ.: 15.5in Height: 61.0in Weight: 160.0lb BMI: 30.2 Referring Provider: YOON MAGANA Sleep History: The patient is a 49 year old male . Medications: Atorvastatin, Budesonide, Cyclobenzaprine, Fexofenadine, Hydrocodone, Hydrocortisone, Ipratropium, Lisinopril, Montelukast, Omeprazole, Potassium Chloride, Promethazine, Rizatriptan, Umeclidinium and Vilanterol Sleep procedure: PSG 4 or more [facility] ([id number]) Procedure: The study was attended continuously by a dairy technologist. The monitored parameters included: left (E1-M2) [...] By: Dhruv Izquierdo (02/06/2025 2:53:21 PM) Normal [facility] Amylase SerPl-cCncon 025 Amylase [Catalytic activity/Vol] 37 U/L Normal 30-104 [facility] Comment on above: Order Comment: Speci men Type: BLOOD SPECIMENOrdering Facility: [facility] Address: [address] [place] [address] Performed By: #### 1 798-8, 3040-3, 45097-8, 45711-2 ####[facility] [id number] [place] [address] [place] CBC W Auto Differential pane l (Bld)on 01-12-2025 Basophils (Bld) [#/Vol] 0.05 10*3/uL [facility] Basophils/100 WBC (Bld) 1 % [facility] Differential cell count method Nom (Bld) Auto [facility] Eosinophils (Bld) [#/Vol] 0.33 10*3/uL [facility] Eosinophils/100 WBC (Bld) 6.4 % [facility] Erythrocyte distribution width (RBC) [Ratio] 13.1 % 11.5 - 15.0 % [facility] Hematocrit (Bld) [Volume fraction] 40 % 39.0 - 51.0 % [facility] Hemoglobin (Bld) [Mass/Vol] 14.2 g/dL 13.0 - 17.0 g/dL [facility] Immature granulocytes (Bld) [#/Vol] [facility] Immature granulocytes/100 WBC (Bld) 0.2 % [facility] Lymphocytes (Bld) [#/Vol] 1.59 10*3/uL [facility] Lymphocytes/100 WBC (Bld) 30.8 % [facility] MCH (RBC) [Entitic mass] 30.3 pg 26.0 - 34.0 pg [facility] MCHC (RBC) [Mass/Vol] 35.5 g/dL 30.5 - 36.0 g/dL [facility] MCV (RBC) [Entitic vol] 85.5 fL 80.0 - 100.0 fL [facility] Monocytes (Bld) [#/Vol] 0.44 10*3/uL [facility] Monocytes/100 WBC (Bld) 8.5 % [facility] Neutrophils (Bld) [#/Vol] 2.74 10*3/uL [facility] Neutrophils/100 WBC (Bld) 53.1 % [facility] Nucleated RBC (Bld) [#/Vol] NINF [facility] Nucleated RBC/100 WBC (Bld) [Ratio] 0 % /100 WBC [facility] Platelet mean volume (Bld) [Entitic vol] 10.3 fL 9.0 - 12.7 fL [facility] Platelets (Bld) [#/Vol] 222 10*3/uL [facility] RBC (Bld) [#/Vol] 4.68 10*6/uL 4.20 - 6.00 m/uL [facility] WBC (Bld) [#/Vol] 5.16 10*3/uL [facility] Basophils (Bld) [#/Vol] 0.05 10*3/uL Normal <0.11 [facility] Comment on above: Order Comment: Speci men Type: BLOOD SPECIMEN [facility] Address: [address] [place] [address] Performed By: #### 5 7021-8 #### [facility] CLIA [id number] [address] [place] [address] [place] Basophils/100 WBC (Bld) 1.0 % Normal [facility] Comment on above: Order Comment: Speci men Type: BLOOD SPECIMEN [facility] Address: [address] [place] [address] Performed By: #### 5 7021-8 #### [facility] CLIA [id number] [address] [place] [address] [place] Differential cell count method Nom (Bld) Auto Normal [facility] Comment on above: Order Comment: Speci men Type: BLOOD SPECIMEN [facility] Address: [address] [place] [address] Performed By: #### 5 7021-8 #### [facility] CLIA [id number] [address] [place] [address] [place] Eosinophils (Bld) [#/Vol] 0.33 10*3/uL Normal <0.46 [facility] Comment on above: Order Comment: Speci men Type: BLOOD SPECIMEN [facility] Address: [address] [place] [address] Performed By: #### 5 7021-8 #### [facility] CLIA [id number] [address] [place] [address] [place] Eosinophils/100 WBC (Bld) 6.4 % Normal [facility] Comment on above: Order Comment: Speci men Type: BLOOD SPECIMEN [facility] Address: [address] [place] [address] Performed By: #### 5 7021-8 #### [facility] CLIA [id number] [address] [place] [address] [place] Erythrocyte distribution width (RBC) [Ratio] 13.1 % Normal 11.5-15.0 [facility] Comment on above: Order Comment: Speci men Type: BLOOD SPECIMEN [facility] Address: [address] [place] [address] Performed By: #### 5 7021-8 #### [facility] CLIA [id number] [address] [place] [address] [place] Hematocrit (Bld) [Volume fraction] 40.0 % Normal 39.0-51.0 [facility] Comment on above: Order Comment: Speci men Type: BLOOD SPECIMEN [facility] Address: [address] [place] [address] Performed By: #### 5 7021-8 #### [facility] CLIA [id number] [address] [place] [address] [place] Hemoglobin (Bld) [Mass/Vol] 14.2 g/dL Normal 13.0-17.0 [facility] Comment on above: Order Comment: Speci men Type: BLOOD SPECIMEN [facility] Address: [address] [place] [address] Performed By: #### 5 7021-8 #### [facility] CLIA [id number] [address] [place] [address] [place] Immature granulocytes (Bld) [#/Vol] 10*3/uL Normal <0.10 [facility] Comment on above: Order Comment: Speci men Type: BLOOD SPECIMEN [facility] Address: [address] [place] [address] Performed By: #### 5 7021-8 #### [facility] CLIA [id number] [address] [place] [address] [place] Immature granulocytes/100 WBC (Bld) 0.2 % Normal [facility] Comment on above: Order Comment: Speci men Type: BLOOD SPECIMEN [facility] Address: [address] [place] [address] Performed By: #### 5 7021-8 #### [facility] CLIA [id number] [address] [place] [address] [place] Lymphocytes (Bld) [#/Vol] 1.59 10*3/uL Normal 1.00-4.00 [facility] Comment on above: Order Comment: Speci men Type: BLOOD SPECIMEN [facility] Address: [address] [place] [address] Performed By: #### 5 7021-8 #### [facility] CLIA [id number] [address] [place] [address] [place] Lymphocytes/100 WBC (Bld) 30.8 % Normal [facility] Comment on above: Order Comment: Speci men Type: BLOOD SPECIMEN [facility] Address: [address] [place] [address] Performed By: #### 5 7021-8 #### [facility] CLIA [id number] [address] [place] [address] [place] MCH (RBC) [Entitic mass] 30.3 pg Normal 26.0-34.0 [facility] Comment on above: Order Comment: Speci men Type: BLOOD SPECIMEN [facility] Address: [address] [place] [address] Performed By: #### 5 7021-8 #### [facility] CLIA [id number] [address] [place] [address] [place] MCHC (RBC) [Mass/Vol] 35.5 g/dL Normal 30.5-36.0 [facility] Comment on above: Order Comment: Speci men Type: BLOOD SPECIMEN [facility] Address: [address] [place] [address] Performed By: #### 5 7021-8 #### [facility] CLIA [id number] [address] [place] [address] [place] MCV (RBC) [Entitic vol] 85.5 fL Normal 80.0-100.0 [facility] Comment on above: Order Comment: Speci men Type: BLOOD SPECIMEN [facility] Address: [address] [place] [address] Performed By: #### 5 7021-8 #### [facility] CLIA [id number] [address] [place] [address] [place] Monocytes (Bld) [#/Vol] 0.44 10*3/uL Normal <0.87 [facility] Comment on above: Order Comment: Speci men Type: BLOOD SPECIMEN [facility] Address: [address] [place] [address] Performed By: #### 5 7021-8 #### [facility] CLIA [id number] [address] [place] [address] [place] Monocytes/100 WBC (Bld) 8.5 % Normal [facility] Comment on above: Order Comment: Speci men Type: BLOOD SPECIMEN [facility] Address: [address] [place] [address] Performed By: #### 5 7021-8 #### [facility] CLIA [id number] [address] [place] [address] [place] Neutrophils (Bld) [#/Vol] 2.74 10*3/uL Normal 1.45-7.50 [facility] Comment on above: Order Comment: Speci men Type: BLOOD SPECIMEN [facility] Address: [address] [place] [address] Performed By: #### 5 7021-8 #### [facility] CLIA [id number] [address] [place] [address] [place] Neutrophils/100 WBC (Bld) 53.1 % Normal [facility] Comment on above: Order Comment: Speci men Type: BLOOD SPECIMEN [facility] Address: [address] [place] [address] Performed By: #### 5 7021-8 #### [facility] CLIA [id number] [address] [place] [address] [place] Nucleated RBC (Bld) [#/Vol] 10*3/uL Normal <0.01 [facility] Comment on above: Order Comment: Speci men Type: BLOOD SPECIMEN [facility] Address: [address] [place] [address] Performed By: #### 5 7021-8 #### [facility] CLIA [id number] [address] [place] [address] [place] Nucleated RBC/100 WBC (Bld) [Ratio] 0.0 /100 WBC Normal [facility] Comment on above: Order Comment: Speci men Type: BLOOD SPECIMEN [facility] Address: [address] [place] [address] Performed By: #### 5 7021-8 #### [facility] CLIA [id number] [address] [place] [address] [place] Platelet mean volume (Bld) [Entitic vol] 10.3 fL Normal 9.0-12.7 [facility] Comment on above: Order Comment: Speci men Type: BLOOD SPECIMEN [facility] Address: [address] [place] [address] Performed By: #### 5 7021-8 #### [facility] CLIA [id number] [address] [place] [address] [place] Platelets (Bld) [#/Vol] 222 10*3/uL Normal 150-400 [facility] Comment on above: Order Comment: Speci men Type: BLOOD SPECIMEN [facility] Address: [address] [place] [address] Performed By: #### 5 7021-8 #### [facility] CLIA [id number] [address] [place] [address] [place] RBC (Bld) [#/Vol] 4.68 10*6/uL Normal 4.20-6.00 [facility] Comment on above: Order Comment: Speci men Type: BLOOD SPECIMEN [facility] Address: [address] [place] [address] Performed By: #### 5 7021-8 #### [facility] CLIA [id number] [address] [place] [address] [place] WBC (Bld) [#/Vol] 5.16 10*3/uL Normal 3.70-11.00 [facility] Comment on above: Order Comment: Speci men Type: BLOOD SPECIMEN [facility] Address: [address] [place] [address] Performed By: #### 5 7021-8 #### [facility] CLIA [id number] [address] [place] [address] STATES OF [facility] CNOVon 01-12-2025 CNOV Office Visit (FAMPWS ) JAKE CAHIREZ ([id number]) 1975 M Date Time Provider Department 01/12/25 2:40 PM [facility], we [...] 1 tabl (more content not included)... Normal [facility] HbA1c (Bld)on 01-12-2025 Average glucose Estimated from glycated hemoglobin (Bld) [Mass/Vol] 157 mg/dL Normal [facility] Comment on above: Order Comment: Speci men Type: BLOOD SPECIMEN [facility] Address: [address] [place] [address] Result Comment: eAG: (Estimated average glucose) is a calculated value from HgbA1c and is telecommunications sales representative of the average blood glucose level in the last 2-3 month period. Performed By: #### 5 5454-3 #### [facility] CLIA [id number] [address] [place] [address] [place] [address] [place] HbA1c (Bld) [Mass fraction] 7.1 % High 4.3-5.6 [facility] Comment on above: Order Comment: Speci men Type: BLOOD SPECIMEN [facility] Address: [address] [place] [address] Result Comment: Amer [place] Diabetes Association guidelines indicate that patients with HgbA1c in the range 5.7-6.4% are at increased risk for development of diabetes, and intervention by lifestyle modification may be beneficial. HgbA1c greater or equal to 6.5% is considered diagnostic of diabetes. Performed By: #### 5 5454-3 #### [facility] CLIA [id number] [address] [place] [address] [place] Hepatic function 2000 panelo n 01-12-2025 Albumin [Mass/Vol] 4.7 g/dL Normal 3.9-4.9 [facility] Comment on above: Order Comment: Speci men Type: BLOOD SPECIMENOrdering Facility: [facility] Address: [address] [place] [address] Performed By: #### 1 798-8, 3040-3, 76534-2, 62407-8 ####[facility] [id number] [place] [address] [place] ALP [Catalytic activity/Vol] 116 U/L High 38-113 [facility] Comment on above: Order Comment: Speci men Type: BLOOD SPECIMENOrdering Facility: [facility] Address: [address] [place] [address] Performed By: #### 1 798-8, 3040-3, 01748-9, 01212-5 ####[facility] [id number] [place] [id number] [place] ALT [Catalytic activity/Vol] 37 U/L Normal 10-54 [facility] Comment on above: Order Comment: Speci men Type: BLOOD SPECIMENOrdering Facility: [facility] Address: [address] [place] [address] Performed By: #### 1 798-8, 3040-3, 97547-7, 88870-5 ####[facility] [id number] [address] [address] [place] AST [Catalytic activity/Vol] 26 U/L Normal 14-40 [facility] Comment on above: Order Comment: Speci men Type: BLOOD SPECIMENOrdering Facility: [facility] Address: [address] [place] [address] Performed By: #### 1 798-8, 3040-3, 29272-2, 47699-6 ####[facility] [id number] [address] [address] [place] Bilirubin [Mass/Vol] 0.7 mg/dL Normal 0.2-1.3 [facility] Comment on above: Order Comment: Speci men Type: BLOOD SPECIMENOrdering Facility: [facility] Address: [address] [place] [address] Performed By: #### 1 798-8, 3040-3, 38721-2, 67234-8 ####[facility] [id number] [place] [id number] [place] Bilirubin.conjugate d [Mass/Vol] 0.2 mg/dL Normal <0.3 [facility] Comment on above: Order Comment: Speci men Type: BLOOD SPECIMENOrdering Facility: [facility] Address: [address] [place] [address] Performed By: #### 1 798-8, 3040-3, 68174-0, 26831-9 ####[facility] [id number] [address] [address] [place] Protein [Mass/Vol] 7.2 g/dL Normal 6.3-8.0 [facility] Comment on above: Order Comment: Speci men Type: BLOOD SPECIMENOrdering Facility: [facility] Address: [address] [place] [address] Performed By: #### 1 798-8, 3040-3, 98041-0, 17039-7 ####[facility] [id number] [facility] [address] [place] [address] [place] Lipase SerPl-cCncon 01-13-20 25 Lipase [Catalytic activity/Vol] 14 U/L Low 16-61 [facility] Comment on above: Order Comment: Speci men Type: BLOOD SPECIMENOrdering Facility: [facility] Address: [address] [place] [address] Performed By: #### 1 798-8, 3040-3, 15969-0, 13168-5 ####[facility] [id number] [place] [id number] [place] Lipid 1996 panelon 5 Cholesterol [Mass/Vol] 179 mg/dL Normal <200 [facility] Comment on above: Order Comment: Speci men Type: BLOOD SPECIMENOrdering Facility: [facility] Address: [address] [place] [address] Result Comment: <200 mg/dL, Desirable 200-239 mg/dL, Borderline high >239 mg/dL, High Performed By: #### 1 798-8, 3040-3, 03690-1, 81301-4 ####[facility] [id number] [address], [facility] [place] Cholesterol in HDL [Mass/Vol] 60 mg/dL Normal >39 [facility] Comment on above: Order Comment: Speci men Type: BLOOD SPECIMENOrdering Facility: [facility] Address: [address] [place] [address] Result Comment: 40-5 9 mg/dL, Acceptable >59 mg/dL, High: Negative risk factor for coronary heart disease <40 mg/dL, Low: Positive risk factor for coronary heart disease Performed By: #### 1 798-8, 3040-3, 51989-6, 08189-5 ####[facility] [id number] [address] [place] [address] [place] Cholesterol in LDL [Mass/Vol] 86 mg/dL Normal <100 [facility] Comment on above: Order Comment: Jankiannette gilmore Type: BLOOD SPECIMENOrdering Facility: [facility] Address: [address] [place] [address] Result Comment: <100 mg/dL, Optimal 100-129 mg/dL, Near optimal/above optimal 130-159 mg/dL, Borderline high 160-189 mg/dL, High >189 mg/dL, Very high Secondary prevention optimal LDL Cholesterol levels are recommended to be <70 mg/dL LDL cholesterol is calculated using the Ware-NIH equation. Performed By: #### 1 798-8, 3040-3, 14883-6, 31904-3 ####[facility] [id number] [place] [address] [place] OF [place] Cholesterol in LDL/Cholesterol in HDL [Mass ratio] 1.43 {ratio} Normal <2.54 [facility] Comment on above: Order Comment: Mk deirdre Type: BLOOD SPECIMENOrdering Facility: [facility] Address: [address] [place] [address] Result Comment: Refe rence: 1. National Cholesterol Education Program ATP III Guideline At-A-Glance Quick Desk Reference: National Heart, Lung, and Blood Perley. National Institutes of Health. 2001: NIH Publication No. 01-3305. 2. An International Atherosclerosis Society position paper: global recommendations for the management of dyslipidemia: executive summary, Atherosclerosis. 2014: 232(2):410-413. Performed By: #### 1 798-8, 3040-3, 15757-3, 43950-2 ####[facility] [id number] [address] [address] [place] Cholesterol in VLDL [Mass/Vol] 31 mg/dL High <30 [facility] Comment on above: Order Comment: Mk gilmore Type: BLOOD SPECIMENOrdering Facility: [facility] Address: [address] [place] [address] Performed By: #### 1 798-8, 3040-3, 98888-2, 81330-2 ####[facility] [id number] [place] [id number] [place] Cholesterol non HDL [Mass/Vol] 119 mg/dL Normal <130 [facility] Comment on above: Order Comment: Speci men Type: BLOOD SPECIMENOrdering Facility: [facility] Address: [address] [place] [address] Result Comment: <130 mg/dL, Optimal 130-159 mg/dL, Near optimal/above optimal 160-189 mg/dL, Borderline high 190-219 mg/dL, High >219 mg/dL, Very high Secondary prevention optimal non HDL Cholesterol levels are recommended to be <100 mg/dL Performed By: #### 1 798-8, 3040-3, 88325-8, 63697-8 ####[facility] [id number] [place] [address] [place] Cholesterol.total/C holesterol in HDL [Mass ratio] 2.98 {ratio} Normal <5.10 [facility] Comment on above: Order Comment: Speci men Type: BLOOD SPECIMENOrdering Facility: [facility] Address: [address] [place] [address] Performed By: #### 1 798-8, 3040-3, 42211-8, 27384-8 ####[facility] [id number] [place] [address] [place] FASTING TIME 12 hrs Normal [facility] Comment on above: Order Comment: Speci men Type: BLOOD SPECIMENOrdering Facility: [facility] Address: [address] [place] [address] Performed By: #### 1 798-8, 3040-3, 16509-8, 86342-1 ####[facility] [id number] [place] [address] [place] Triglyceride [Mass/Vol] 196 mg/dL High <150 [facility] Comment on above: Order Comment: Speci men Type: BLOOD SPECIMENOrdering Facility: [facility] Address: [address] [place], [place] [address] Result Comment: <150 mg/dL, Normal 150-199 mg/dL, Borderline high 200-499 mg/dL, High >499 mg/dL, Very high Performed By: #### 1 798-8, 3040-3, 17748-3, 59410-8 ####[facility] [id number] [facility]ITALMichelle [facility] PORT ORANGEFantasma [address] [facility] XR RIB/CHST 3V AP RIB/OBL/CH ST Mg [...] of the lungs compared to CT chest Data Entry Associate/topogram 06/23/2024. Similarly prominent spleen compared to CT abdomen 2011, MRI lumbar spine 2017. Borderline splenomegaly on those previous exams; cannot be radiographically measured. IMPRESSION: No acute findings Similarly prominent spleen as above Automotive Artist: PSCB Transcribe Date/Time: Jan 12 2025 3:31P Dictated by : NELDA GU MD This examination was interpreted and the report reviewed and electronically signed by: NELDA GU MD on Jan 12 2025 3:46PM EST [id number] Normal [facility] XR Ribs - left Views and Chrissie st PAon 01-12-2025 IMPRESSION: No acute findings Similarly prominent spleen as above Automotive Artist: ELMO Transcribe Date/Time: Jan 12 2025 3:31P Dictated by : NELDA GU MD This examination was interpreted and the report reviewed and electronically signed by: NELDA GU MD on Jan 12 2025 3:46PM [facility] DIVISION OF RADIOLOGY * * *Final [...] of the lungs compared to CT chest Data Entry Associate/topogram 06/23/2024. Similarly prominent spleen compared to CT abdomen 2011, MRI lumbar spine 2018. Borderline splenomegaly on those previous exams; cannot be radiographically measured. DIVISION OF RADIOLOGY Provider, [facility] - 01/12/2025 * * *Final Report* [...] of the lungs compared to CT chest Data Entry Associate/topogram 06/23/2024. Similarly prominent spleen compared to CT abdomen 2011, MRI lumbar spine 2018. Borderline splenomegaly on those previous exams; cannot be radiographically measured. IMPRESSION IMPRESSION: No acute findings Similarly prominent spleen as above Automotive Artist: PSCB Transcribe Date/Time: Jan 12 2025 3:31P Dictated by : NELDA GU MD This examination was interpreted and the report reviewed and electronically signed by: NELDA GU MD on Jan 12 2025 3:46PM EST [facility] Radiology Study observation (narrative) [facility] XR Ribs - left Views and Chrissie st PAOrdered By: Ccf Provider on 01-12-2025 [facility] CNOVon 01-08-2025 CNOV Office Visit (BOSSMANPWS ) JAKE CHAIREZ ([id number]) 1975 M Date Time Provider Department 01/08/25 2:20 PM TAVON VALENCIALEONARD During your visit today, we recorded the following information about you: Pulse Blood pressure Weight 108/minute 126/87 75 kg Tavon Valencia, DIGITAL ARCHIVIST.INFORMATION SECURITY MANAGER 01/08/2025 2:21 PM Signed Chief Complaint Patient [...] daily. i (more content not included)... Normal [facility] CNOVon 01-07-2025 CNOV Office Visit (PULMWS ) JAKE CHAIREZ ([id number]) 1975 M Date Time Provider Department 01/07/25 3:00 PM YOON MAGANA PULMWS During your visit today, we recorded the following information about you: Pulse Respiration Blood pressure Weight 117/minute 15/minute 122/78 75.3 kg Height 1.676 m Yoon Magana, DIGITAL ARCHIVIST.INFORMATION SECURITY MANAGER 01/07/2025 8:14 PM Signed Pulmonary Medicine Patients [...] history of colonic polyps Sarcoidosis of lung ([facility]) 04/2017 Transbronchial biopsy, transbronchial needle aspiration biopsy of nodes, and bronchoalveolar lavage 04/2017. Type 2 diabetes ([facility]) 10/26/2022 Unspecified asthma(493.90) Allergies: Advair Diskus [Flut* [...] known a (more content not included)... 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: : 1975 Requested By: Order Number: [id number] Reading MD: Shayla Rogers MD Interpretive Statements [...] 12:49:18 EDT by Shayla Rogers MD ID: [id number] Name: JAKE CHAIREZ Race: White Ht: 65.00 in Wt: 166.00 lbs Age: 49 Gender: Male : 1975 Dx: Moderate persistent asthma, uncomplicated_ Smoking Hx: Non-smoker Doctor: SHAYLA ROGERS Test Date: 01/07/2025 Site: Tech: Amos Moore PRE-BRONCH POST-BRONCH Jose Elais LLN Pred ULN %Pred ZScore Jose Elias [...] 90-100 0.59 92 FIVC 3.98 4.10 3 KMV75-47 0.90 1.64 3.07 4.95 29 -2.79 1.74 [...] 80 % FEV1/FVC_LLN (%) : 69 % VAE19_ASS (L/S) : 3.18 L/S NJN25_SNKC (L/S) : 5.26 L/S UZM81_OSQ (L/S) : 0.34 L/S UTK29_EQRZ (L/S) : 0.72 L/S WWC51_PFXH (L/S) : 1.01 L/S EII07_KER (L/S) : 0.44 L/S SAK56_MCS (L/S) : 2.17 L/S TBI33-00%_PRE (L/S) : 0.90 L/S FCH80-06%_POST (L/S) : 1.74 L/S BGV96-43%_PRED (L/S) : 3.07 L/S GKL13-09%_LLN (L/S) : 1.64 L/S PEF_PRE (L/S) : 6.88 L/S PEF_POST (L/S) : 8.68 L/S PEFMAX_LLN (L/S) : 6.65 L/S PEFMAX_ULN (L/S) : 10.64 L/S FET_PRE (S) : 14.86 S FET_POST (S) : 11.90 S Normal [facility] PT D/C Summary (1)on 025 PT D/C Summary (1) [facility] Physical [facility] [address] [place] [address] / REHABILITATION SERVICES DISCHARGE SUMMARY MR#: [id number] Acct: [id number] Name: JAKE CHAIREZ Rep #: [id number] : 1975 49 From: Calvin Bustamante PT, ATC Referring Dr.: Pepper Sharma Status: REG RCR Insurance: [facility] SELF PAY INSURANCE Discharge Summary D/C summary: It has been my pleasure to treat JAKE CHAIREZ referred by PATTERN LEASE INSPECTOR. Pepper Sharma, with the diagnosis of LBP [...] please feel free to call me at [phone]. Thank you for the referral of this patient. Sincerely, Calvin Bustamante PT, ATC Balance/Gait/Functional tests Balance/Special Test Scores Oswestry Low Back Score: 36 Improvement % Improvement: 0 01/02/25 1454 CC: Pepper Sharma; Dr. Avni Salcedo DO [facility] Signed Normal [facility] Inital Evaluation (1) - PTon 12-11-2024 Inital Evaluation (1) - PT [facility] Physical Therapy [facility] [address] [place] [address] / REHABILITATION SERVICES INITIAL EVALUATION MR#: [id number] Acct: [id number] Name: JAKE CHAIREZ Rep #: [id number] : 1975 49 From: Calvin Bustamante PT, ATC Referring Dr.: Pepper Sharma Status: REG RCR Insurance: [employer] SELF PAY INSURANCE Patient's Visit Information Visit Information Visit Information: JAKE CHAIREZ is a 49 year old M referred to Physical Therapy by NP. Pepper Sharma with a diagnosis of LBP. [...] to be FAXED BACK to us at [phone] for Medicare purposes. For Medicare only, by signing this I certify the plan of care. Please let me know if there are questions or concerns regarding this plan of care. Physician Signature: Dat e: 12/11/24 1624 CC: Pepper Sharma; Dr. Avni Salcedo DO [facility] Signed [facility] CNOVon 10-09-2024 CNOV Office Visit (PULMWS ) MIHAELAJAKE ([id number]) 1975 M Date Time Provider Department 10/09/24 2:45 PM SHAYLA ROGERS PULMWS During your visit today, we recorded the following information about you: Pulse Respiration Blood pressure Weight 101/minute 18/minute 118/72 75.3 kg Shayla Rogers MD 10/09/2024 4:40 PM Signed . 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 Normal [facility] CNOVon 10-06-2024 CNOV Office Visit (PULMWS ) JAKE CHAIREZ ([id number]) 1975 M Date Time Provider Department 10/06/24 1:00 PM ELMIRA FARRAR PULANDREW During your visit today, we recorded the following information about you: Pulse Respiration Blood pressure Weight 100/minute 20/minute 124/78 75.5 kg Elmira Farrar APRN.INFORMATION SECURITY MANAGER 10/06/2024 2:51 PM Signed LUNG SCREENING VISIT [...] 50% of waking hrs. Modified Medical Research [place] Dyspnea Scale (MMRC) I am too breathless [...] 20-100 mcg/actua (more content not included)... Normal [facility] 10-06-2024 [facility] Telephone (INTMWS) JAKE CHAIREZ ([id number]) 1975 M Date Time Provider Department 10/06/24 AVNI SALCEDO INTMWS During your visit today, we recorded the following information about you: Kailyn Rubio LPN 10/06/2024 3:55 PM Signed Electronic PA rec'd and completed for budesonide. This was approved rior authorization approved Payer: [facility] Note from payer: Your PA request for [id number] was approved for 365 days. The PA# assigned is [id number]. Approval Details Authorization number: [id number] Authorized from October 06, 2024 to October 05, 2025 Electronic appeal: Not supported View History Pharmacy Benefits Open Encounter JAKE CHAIREZ - MEDICAID ([facility]) Covered: Retail, Mail Order Unknown: Specialty, Long-Term Care BIN: [id number] : 1975 Group ID: PCN: [id number] Legal sex: M Group name: Address: [address] [address] Medication Being Authorized budesonide (PULMICORT) 0.5 mg/2 mL nebulizer solution Use 2 mL via nebulizer once daily. Dispense: 2 mL Refills: 2 Start: 10/06/2024 Class: Normal Diagnoses: Asthma, moderate persistent, well-controlled; Chronic allergic rhinitis This order has been released to its destination. To be filled at: [facility] [address] [place], [place] Pharmacy notified. Allergies As of Date: 10/06/2024 Noted Allergy Reaction ADV DISKUS (FLUTICASONE PROPIO*05/18/2017 14 - Other: See Comments Comments: Kateush CODEINE 07/31/2005 8 - GI Upset CYMBALTA [...] Date Reviewed: 10/06/2024 Reviewed by: Elmira Farrar APRN.INFORMATION SECURITY MANAGER - Fully Assessed Reason for Visit: Insurance [...] capsule by mouth once daily. - rizatriptan (MAXALT-CNC MANUFACTURING ENGINEER) 10 mg disintegrating tablet Take 1 tablet [...] [J4* C (more content not included)... [facility] Telephone (FAMPWS) MIHAELAJAKE ([id number]) 1975 M Date Time Provider Department 09/01/24 AVNI SALCEDOWS During your visit today, we recorded the [...] capsule by mouth once daily. - rizatriptan (MAXALT-CNC MANUFACTURING ENGINEER) 10 mg disintegrating tablet Take 1 tablet [...] nevus [D22. (more content not included)... Normal [facility] Robert 08-18-2024 CNPN Telephone (FAMPWS) JAKE CHAIREZ ([id number]) 1975 M Date Time Provider Department 08/18/24 [...] DIPROPIONATE)05/18/2017 14 - Other: See Comments Comments: Thrkimberley STRATTERA (ATOMOXETINE) 07/26/2022 1 - Mental Status Change Comments: Mood changes, suicidal thoughts SYMBICORT (BUDESONIDE-FORMOTEROL) 05/18/2017 14 - Other: See Comments Comments: Simran TETANUS-DIPHTHERIA TOXOIDS-TD 06/22/2006 7 - Swelling Comments: swelling at site and numbness in arm Date Reviewed: 06/16/2024 Reviewed by: Ana Almanza LPN - Fully Assessed Reason for Visit: Insurance Authorization [[id number]] Cmt: Hydrocortisone suppository Prescriptions as of 08/18/2024 [...] capsule by mouth once daily. - rizatriptan (MAXALT-CNC MANUFACTURING ENGINEER) 10 mg disintegrating tablet Take 1 tablet [...] 04/19/2013 M (more content not included)... Normal [facility] CBC panel Auto (Bld)on 08-15 Erythrocyte distribution width (RBC) [Ratio] 11.9 % Normal 11.5-15.0 [facility] Comment on above: Order Comment: Speci men Type: BLOOD SPECIMENOrdering Facility: [facility] Address: [address] [place] [address] Performed By: #### 5 8410-2 ####[facility] [id number] [place] [address] [place] Hematocrit (Bld) [Volume fraction] 39.8 % Normal 39.0-51.0 [facility] Comment on above: Order Comment: Speci men Type: BLOOD SPECIMENOrdering Facility: [facility] Address: [address] [place] [address] Performed By: #### 5 8410-2 ####[facility] [id number] [place] [address] [place] Hemoglobin (Bld) [Mass/Vol] 13.4 g/dL Normal 13.0-17.0 [facility] Comment on above: Order Comment: Speci men Type: BLOOD SPECIMENOrdering Facility: [facility] Address: [address] [place] [address] Performed By: #### 5 8410-2 ####[facility] [id number] [place] [address] [place] MCH (RBC) [Entitic mass] 30.5 pg Normal 26.0-34.0 [facility] Comment on above: Order Comment: Speci men Type: BLOOD SPECIMENOrdering Facility: [facility] Address: [address] [place] [address] Performed By: #### 5 8410-2 ####[facility] [id number] [place] [address] [place] MCHC (RBC) [Mass/Vol] 33.7 g/dL Normal 30.5-36.0 [facility] Comment on above: Order Comment: Speci men Type: BLOOD SPECIMENOrdering Facility: [facility] Address: [address] [place] [address] Performed By: #### 5 8410-2 ####[facility] [id number] [place] [address] [place] MCV (RBC) [Entitic vol] 90.5 fL Normal 80.0-100.0 [facility] Comment on above: Order Comment: Speci men Type: BLOOD SPECIMENOrdering Facility: [facility] Address: [address] [place] [address] Performed By: #### 5 8410-2 ####[facility] [id number] [place] [address] [place] Nucleated RBC (Bld) [#/Vol] 10*3/uL Normal <0.01 [facility] Comment on above: Order Comment: Speci men Type: BLOOD SPECIMENOrdering Facility: [facility] Address: [address] [place] [address] Performed By: #### 5 8410-2 ####[facility] [id number] [place] [address] [place] Platelet mean volume (Bld) [Entitic vol] 9.8 fL Normal 9.0-12.7 [facility] Comment on above: Order Comment: Speci men Type: BLOOD SPECIMENOrdering Facility: [facility] Address: [address] [place] [address] Performed By: #### 5 8410-2 ####[facility] [id number] [place] [address] [place] Platelets (Bld) [#/Vol] 247 10*3/uL Normal 150-400 [facility] Comment on above: Order Comment: Speci men Type: BLOOD SPECIMENOrdering Facility: [facility] Address: [address] [place] [address] Performed By: #### 5 8410-2 ####[facility] [id number] [place] [address] [place] RBC (Bld) [#/Vol] 4.40 10*6/uL Normal 4.20-6.00 [facility] Comment on above: Order Comment: Speci men Type: BLOOD SPECIMENOrdering Facility: [facility] Address: [address] [place] [address] Performed By: #### 5 8410-2 ####[facility] [id number] [place] [address] [place] WBC (Bld) [#/Vol] 6.83 10*3/uL Normal 3.70-11.00 [facility] Comment on above: Order Comment: Speci men Type: BLOOD SPECIMENOrdering Facility: [facility] Address: [address] [place] [address] Performed By: #### 5 8410-2 ####[facility] [id number] [place] [address] [place] Comprehensive metabolic 2000 panelon 08-15-2024 Albumin [Mass/Vol] 4.6 g/dL Normal 3.9-4.9 [facility] Comment on above: Order Comment: Speci men Type: BLOOD SPECIMEN [facility] Address: [address] [place] [address] Performed By: #### 5 5454-3 #### [facility] CLIA [id number] [address] [place] [address] [place] ALP [Catalytic activity/Vol] 127 U/L High 38-113 [facility] Comment on above: Order Comment: Speci men Type: BLOOD SPECIMEN [facility] Address: [address] [place] [address] Performed By: #### 5 5454-3 #### [facility] CLIA [id number] [address] [place] [address] [place] ALT [Catalytic activity/Vol] 57 U/L High 10-54 [facility] Comment on above: Order Comment: Speci men Type: BLOOD SPECIMEN [facility] Address: [address] [place] [address] Performed By: #### 5 5454-3 #### [facility] CLIA [id number] [address] [place] [address] [place] Anion gap [Moles/Vol] 14 mmol/L Normal 8-15 [facility] Comment on above: Order Comment: Speci men Type: BLOOD SPECIMEN [facility] Address: [address] [place] [address] Performed By: #### 5 5454-3 #### [facility] CLIA [id number] [address] [place] [address] [place] AST [Catalytic activity/Vol] 28 U/L Normal 14-40 [facility] Comment on above: Order Comment: Speci men Type: BLOOD SPECIMEN [facility] Address: [address] [place] [address] Performed By: #### 5 5454-3 #### [facility] CLIA [id number] [address] [place] [address] [place] Bilirubin [Mass/Vol] 0.4 mg/dL Normal 0.2-1.3 [facility] Comment on above: Order Comment: Speci men Type: BLOOD SPECIMEN [facility] Address: [address] [place], [place] [address] Performed By: #### 5 5454-3 #### [facility] CLIA [id number] [address] [place] [address] [place] Calcium [Mass/Vol] 10.2 mg/dL Normal 8.5-10.2 [facility] Comment on above: Order Comment: Speci men Type: BLOOD SPECIMEN [facility] Address: [address] [place], [place] [address] Performed By: #### 5 5454-3 #### [facility] CLIA [id number] [address] [place] [address] [place] Chloride [Moles/Vol] 101 mmol/L Normal 98-107 [facility] Comment on above: Order Comment: Speci men Type: BLOOD SPECIMEN [facility] Address: [address] [place], [place] [address] Performed By: #### 5 5454-3 #### [facility] CLIA [id number] [address] [place] [address] [place] CO2 [Moles/Vol] 25 mmol/L Normal 22-30 [facility] Comment on above: Order Comment: Speci men Type: BLOOD SPECIMEN [facility] Address: [address] [place] [address] Performed By: #### 5 5454-3 #### [facility] CLIA [id number] [address] [place] [address] [place] Creatinine [Mass/Vol] 0.90 mg/dL Normal 0.73-1.22 [facility] Comment on above: Order Comment: Speci men Type: BLOOD SPECIMEN [facility] Address: [address] [place] [address] Performed By: #### 5 5454-3 #### [facility] CLIA [id number] [address] [place] [address] [place] Creatinine and Glomerular filtration rate.predicted panel (S/P/Bld) 103 mL/min/1.73m??? Normal >=60 [facility] Comment on above: Order Comment: Speci men Type: BLOOD SPECIMEN [facility] Address: [address] [place] [address] Result Comment: Darling mated Glomerular Filtration Rate [...] By: #### 5 5454-3 #### [facility] CLIA [id number] [address] [place], [place] [address] [place] Glucose [Mass/Vol] 138 mg/dL High 74-99 [facility] Comment on above: Order Comment: Speci men Type: BLOOD SPECIMEN [facility] Address: [address] [place], [place] [address] Result Comment: The English Diabetes Association (ADA) provides guidance for cutoff [...] Standards of Medical Care in Diabetes 2016, English Diabetes Association. Diabetes Care. 2016.39(Suppl 1). Performed By: #### 5 5454-3 #### [facility] CLIA [id number] [address] [place] [address] [place] Potassium [Moles/Vol] 4.0 mmol/L Normal 3.7-5.1 [facility] Comment on above: Order Comment: Speci men Type: BLOOD SPECIMEN [facility] Address: [address] [place] [address] Performed By: #### 5 5454-3 #### [facility] CLIA [id number] [address] [place] [address] [place] Protein [Mass/Vol] 7.0 g/dL Normal 6.3-8.0 [facility] Comment on above: Order Comment: Speci men Type: BLOOD SPECIMEN [facility] Address: [address] [place] [address] Performed By: #### 5 5454-3 #### [facility] CLIA [id number] [address] [place] [address] [place] Sodium [Moles/Vol] 140 mmol/L Normal 136-144 [facility] Comment on above: Order Comment: Speci men Type: BLOOD SPECIMEN [facility] Address: [address] [place] [address] Performed By: #### 5 5454-3 #### [facility] CLIA [id number] [address] [place] [address] [place] Urea nitrogen [Mass/Vol] 13 mg/dL Normal 9-24 [facility] Comment on above: Order Comment: Speci men Type: BLOOD SPECIMEN [facility] Address: [address] [place] [address] Performed By: #### 5 5454-3 #### [facility] CLIA [id number] [address] [place] [address] [place] Ferritin [facility] 2023 Ferritin [Mass/Vol] 77.4 ng/mL Normal 30.3-565.7 [facility] [facility] Comment on above: Order Comment: Speci men Type: BLOOD SPECIMEN Ordering Facility: [facility] Address: [address] [place] [address] Performed By: #### 5 5454-3 #### [facility] CLIA [id number] [address] [place] [address] [place] Iron and Iron binding capaci [facility] 08-[facility]-2024 Iron [Mass/Vol] 77 ug/dL Normal 41-186 [facility] Comment on above: Order Comment: Speci men Type: BLOOD SPECIMEN Ordering Facility: [facility] Address: [address] [place] [address] Performed By: #### 5 5454-3 #### [facility] CLIA [id number] [address] [place] [address] [place] Iron binding capacity [Mass/Vol] 369 ug/dL Normal 232-386 [facility] Comment on above: Order Comment: Speci men Type: BLOOD SPECIMEN Ordering Facility: [facility] Address: [address] [place] [address] Performed By: #### 5 5454-3 #### [facility] CLIA [id number] [address] [place] [address] [place] Iron/TIBC [Molar ratio] 20.9 % Normal 15.0-57.0 [facility] Comment on above: Order Comment: Speci men Type: BLOOD SPECIMEN Ordering Facility: [facility] Address: [address] [place] [address] Performed By: #### 5 5454-3 #### [facility] CLIA [id number] [address] [place] [address] [place] CNPNon 07-02-2024 CNPN Telephone (FAMPWS) JAKE CHAIREZ ([id number]) 1975 M Date Time Provider Department 07/02/24 AVNI SALCEDO FAMPWS During your visit today, [...] 05/18/2017 14 - Other: See Comments Comments: Thrkimberley TETANUS-DIPHTHERIA TOXOIDS-TD 06/22/2006 7 - Swelling Comments: [...] by RECTAL route twice daily. - rizatriptan (MAXALT-CNC MANUFACTURING ENGINEER) 10 mg disintegrating tablet Take 1 tablet [...] nevus of (more content not included)... Normal [facility] CNPNon 06-26-2024 [facility] Telephone (FAMWS) JAKE CHAIREZ ([id number]) 1975 M Date Time Provider Department 06/26/24 AVNI SALCEDO [facility] During your visit today, we recorded the following information about you: Avni Salcedo DO 06/26/2024 10:18 AM Signed Please inform patient that his recent labs show that his LFTs are slightly high and potassium is slightly low. Need to avoid alcohol as well as make sure taking in <3000 mg a day of tylenol. Recheck labs in 2-3 weeks DO Archie Bell Linda M, [facility] 06/26/2024 11:09 AM Signed Spoke with pt [...] [E87.6] Order(s):COMPREHENSIVE METABOLIC PANEL [SQCMP] Order #: [id number] FUTURE Prescriptions as of 06/26/2024 - cyclobenzaprine [...] by RECTAL route twice daily. - rizatriptan (MAXALT-CNC MANUFACTURING ENGINEER) 10 mg disintegrating tablet Take 1 tablet [...] mention o (more content not included)... Normal [facility] ECHOon 06-26-2024 Echocardiography Echocardiography Rep ort: Transthoracic Echo [facility] Date of service: 06/26/2024 3:26:54 PM RADIO TECHNICIAN Ordering physician: AVNI SALCEDO Indication: Hypertension Technologist: Yolanda Foster [facility] Interpreting physician: Maury Huntley MD PATIENT: [...] - Exam was compared with the prior echocardiographic exam performed on 10/13/2022, no significant change. * * * Final * * * [employer] [facility] Image : [id number] Normal [facility] Robert 06-24-2024 [facility] Telephone (FAMPWS) JAKE CHAIREZ ([id number]) 1975 M Date Time Provider Department 06/24/24 [...] Signed Patient active MyChart. Patient notified via Courtanet message. Liz Alvarenga MA Allergies As of [...] by RECTAL route twice daily. - rizatriptan (MAXALT-CNC MANUFACTURING ENGINEER) 10 mg disintegrating tablet Take 1 tablet [...] W/O ME (more content not included)... Normal [facility] CT CHEST WO IVCONon 06-23-20 CT CHEST WO IVCON * * *Final Report* * * DATE OF EXAM: Jun 23 2024 3:30PM [facility] - CT CHEST WO IVCON / [...] nodules. No new or enlarging pulmonary nodules. Automotive Artist: PSCB Transcribe Date/Time: Jun 26 2024 7:33A Dictated by : MYNOR OSORIO MD This examination was interpreted and the report reviewed and electronically signed by: MYNOR OSORIO MD on Jun 26 2024 7:43AM EST [id number] Normal [facility] 25(OH)D3 [facility] 2023 25-hydroxyvitamin D3 [Mass/Vol] 64.0 ng/mL Normal 31.0-80.0 [facility] Comment on above: Order Comment: Speci men Type: BLOOD SPECIMENOrdering Facility: [facility] Address: [address] [place] [address] Result Comment: Clas sification of 25 [place] Vitamin D status: Deficiency/Insufficiency: < or = 30 ng/ml. Sufficiency/Optimal Levels: 31-80 ng/mL Toxicity: > 100 ng/mL. Test performed by chemiluminescent immunoassay. Performed By: #### 1 989-3 ####[facility] [id number] [address] [address] [place] Comprehensive metabolic 2000 panelon 06-18-2024 Albumin [Mass/Vol] 4.8 g/dL Normal 3.9-4.9 [facility] Comment on above: Order Comment: Speci men Type: BLOOD SPECIMEN Ordering Facility: [facility] Address: [address] [place] [address] Performed By: #### 5 5454-3 #### [facility] CLIA [id number] [address] [place], [place] [address] [place] ALP [Catalytic activity/Vol] 96 U/L Normal 38-113 [facility] Comment on above: Order Comment: Speci men Type: BLOOD SPECIMEN Ordering Facility: [facility] Address: [address] [place] [address] Performed By: #### 5 5454-3 #### [facility] CLIA [id number] [address] [place] [address] [place] ALT [Catalytic activity/Vol] 151 U/L High 10-54 [facility] Comment on above: Order Comment: Speci men Type: BLOOD SPECIMEN Ordering Facility: [facility] Address: [address] [place] [address] Performed By: #### 5 5454-3 #### [facility] CLIA [id number] [address] [place], [place] [address] [place] Anion gap [Moles/Vol] 14 mmol/L Normal 8-15 [facility] Comment on above: Order Comment: Speci men Type: BLOOD SPECIMEN Ordering Facility: [facility] Address: [address] [place] [address] Performed By: #### 5 5454-3 #### [facility] CLIA [id number] [address] [place], [place] [address] [place] AST [Catalytic activity/Vol] 97 U/L High 14-40 [facility] Comment on above: Order Comment: Speci men Type: BLOOD SPECIMEN Ordering Facility: [facility] Address: [address] [place] [address] Performed By: #### 5 5454-3 #### [facility] CLIA [id number] [address] [place] [address] [place] Bilirubin [Mass/Vol] 0.8 mg/dL Normal 0.2-1.3 [facility] Comment on above: Order Comment: Speci men Type: BLOOD SPECIMEN Ordering Facility: [facility] Address: [address] [place] [address] Performed By: #### 5 5454-3 #### [facility] CLIA [id number] [address] [place] [address] [place] Calcium [Mass/Vol] 9.8 mg/dL Normal 8.5-10.2 [facility] Comment on above: Order Comment: Speci men Type: BLOOD SPECIMEN Ordering Facility: [facility] Address: [address] [place] [address] Performed By: #### 5 5454-3 #### [facility] CLIA [id number] [address] [place] [address] [place] Chloride [Moles/Vol] 101 mmol/L Normal 98-107 [facility] Comment on above: Order Comment: Speci men Type: BLOOD SPECIMEN Ordering Facility: [facility] Address: [address] [place] [address] Performed By: #### 5 5454-3 #### [facility] CLIA [id number] [address] [place] [address] [place] CO2 [Moles/Vol] 25 mmol/L Normal 22-30 [facility] Comment on above: Order Comment: Speci men Type: BLOOD SPECIMEN Ordering Facility: [facility] Address: [address] [place], [place] [address] Performed By: #### 5 5454-3 #### [facility] CLIA [id number] [address] [place], [place] [address] [place] Creatinine [Mass/Vol] 0.84 mg/dL Normal 0.73-1.22 [facility] Comment on above: Order Comment: Mk gilmore Type: BLOOD SPECIMEN Ordering Facility: [facility] Address: [address] [place] [address] Performed By: #### 5 5454-3 #### [facility] CLIA [id number] [address] [place] [address] [facility] Creatinine and Glomerular filtration rate.predicted panel (S/P/Bld) 106 mL/min/1.73m??? Normal >=60 [facility] Comment on above: Order Comment: Mk gilmore Type: BLOOD SPECIMEN Ordering Facility: [facility] Address: [address] [place] [address] Result Comment: Darling mated Glomerular Filtration Rate [...] By: #### 5 5454-3 #### [facility] CLIA [id number] [address] [place] [address] [place] Glucose [Mass/Vol] 108 mg/dL High 74-99 [facility] Comment on above: Order Comment: Mk gilmore Type: BLOOD SPECIMEN Ordering Facility: [facility] Address: [address] [place] [address] Result Comment: The English Diabetes Association (ADA) provides guidance for cutoff [...] Standards of Medical Care in Diabetes 2016, English Diabetes Association. Diabetes Care. 2016.39(Suppl 1). Performed By: #### 5 5454-3 #### [facility] CLIA [id number] [address] [place] [address] [place] Potassium [Moles/Vol] 3.3 mmol/L Low 3.7-5.1 [facility] Comment on above: Order Comment: Speci men Type: BLOOD SPECIMEN Ordering Facility: [facility] Address: [address] [place] [address] Performed By: #### 5 5454-3 #### [facility] CLIA [id number] [address] [place] [address] [place] Protein [Mass/Vol] 7.2 g/dL Normal 6.3-8.0 [facility] Comment on above: Order Comment: Speci men Type: BLOOD SPECIMEN Ordering Facility: [facility] Address: [address] [place] [address] Performed By: #### 5 5454-3 #### [facility] CLIA [id number] [address] [place] [address] [place] Sodium [Moles/Vol] 140 mmol/L Normal 136-144 [facility] Comment on above: Order Comment: Speci men Type: BLOOD SPECIMEN Ordering Facility: [facility] Address: [address] [place] [address] Performed By: #### 5 5454-3 #### [facility] CLIA [id number] [address] [place] [address] [place] Urea nitrogen [Mass/Vol] 17 mg/dL Normal 9-24 [facility] Comment on above: Order Comment: Speci men Type: BLOOD SPECIMEN Ordering Facility: [facility] Address: [address] [place] [address] Performed By: #### 5 5454-3 #### [facility] CLIA [id number] [address] [place] [address] [place] Lipid 1996 panelon 4 Cholesterol [Mass/Vol] 205 mg/dL High <200 [facility] Comment on above: Order Comment: Speci men Type: BLOOD SPECIMEN Ordering Facility: [facility] Address: [address] [place] [address] Result Comment: <200 mg/dL, Desirable 200-239 mg/dL, Borderline high >239 mg/dL, High Performed By: #### 5 5454-3 #### [facility] CLIA [id number] [address] [place] [address] [place] Cholesterol in HDL [Mass/Vol] 104 mg/dL Normal >39 [facility] Comment on above: Order Comment: Speci men Type: BLOOD SPECIMEN Ordering Facility: [facility] Address: [address] [place] [address] Result Comment: 40-5 9 mg/dL, Acceptable >59 mg/dL, High: Negative risk factor for coronary heart disease <40 mg/dL, Low: Positive risk factor for coronary heart disease Performed By: #### 5 5454-3 #### [facility] CLIA [id number] [address] [place] [address] [place] Cholesterol in LDL [Mass/Vol] 77 mg/dL Normal <100 [facility] Comment on above: Order Comment: Speci men Type: BLOOD SPECIMEN Ordering Facility: [facility] Address: [address] [place] [address] Result Comment: <100 mg/dL, Optimal 100-129 mg/dL, Near optimal/above optimal 130-159 mg/dL, Borderline high 160-189 mg/dL, High >189 mg/dL, Very high Secondary prevention optimal LDL Cholesterol levels are recommended to be < 70 mg/dL Performed By: #### 5 5454-3 #### [facility] CLIA [id number] [address] [place], [place] [address] [place] Cholesterol in LDL/Cholesterol in HDL [Mass ratio] 0.74 {ratio} Normal <2.54 [facility] Comment on above: Order Comment: Mk gilmore Type: BLOOD SPECIMEN Ordering Facility: [facility] Address: [address] [place] [address] Result Comment: Fern gao: 1. National Cholesterol Education Program ATP III Guideline At-A-Glance Quick Desk Reference: National Heart, Lung, and Blood Perley. National Institutes of Health. 2001: NIH Publication No. 01-3305. 2. An International Atherosclerosis Society position paper: global recommendations for the management of dyslipidemia: executive summary, Atherosclerosis. 2014: 232(2):410-413. Performed By: #### 5 5454-3 #### [facility] CLIA [id number] [address] [place] [address] [place] Cholesterol in VLDL [Mass/Vol] 24 mg/dL Normal <30 [facility] Comment on above: Order Comment: Mk gilmore Type: BLOOD SPECIMEN Ordering Facility: [facility] Address: [address] [place] [address] Performed By: #### 5 5454-3 #### [facility] CLIA [id number] [address] [place] [address] [place] Cholesterol non HDL [Mass/Vol] 101 mg/dL Normal <130 [facility] Comment on above: Order Comment: Mk gilmore Type: BLOOD SPECIMEN Ordering Facility: [facility] Address: [address] [place] [address] Result Comment: <130 mg/dL, Optimal 130-159 mg/dL, Near optimal/above optimal 160-189 mg/dL, Borderline high 190-219 mg/dL, High >219 mg/dL, Very high Secondary prevention optimal non HDL Cholesterol levels are recommended to be <100 mg/dL Performed By: #### 5 5454-3 #### [facility] CLIA [id number] [address] [place] [address] [place] Cholesterol.total/C holesterol in HDL [Mass ratio] 1.97 {ratio} Normal <5.10 [facility] Comment on above: Order Comment: Speci men Type: BLOOD SPECIMEN Ordering Facility: [facility] Address: [address] [place] [address] Performed By: #### 5 5454-3 #### [facility] CLIA [id number] [address] [place] [address] [place] FASTING TIME 12 hrs Normal [facility] Comment on above: Order Comment: Speci men Type: BLOOD SPECIMEN Ordering Facility: [facility] Address: [address] [place] [address] Performed By: #### 5 5454-3 #### [facility] CLIA [id number] [address] [place] [address] [place] Triglyceride [Mass/Vol] 121 mg/dL Normal <150 [facility] Comment on above: Order Comment: Speci men Type: BLOOD SPECIMEN Ordering Facility: [facility] Address: [address] [place] [address] Result Comment: <150 mg/dL, Normal 150-199 mg/dL, Borderline high 200-499 mg/dL, High >499 mg/dL, Very high Performed By: #### 5 5454-3 #### [facility] CLIA [id number] [address] [place] [address] [place] [facility]2024 Methylmalonate [Moles/Vol] 0.14 umol/L Normal <=0.40 [facility] Comment on above: Order Comment: Speci men Type: BLOOD SPECIMENOrdering Facility: [facility] Address: [address] [place] [address] Result Comment: This test was developed, and its performance characteristics determined by the [facility] Department of Pathology and Laboratory Medicine. It has not been cleared or approved by the FDA. The [facility] Department of Pathology and Laboratory Medicine is regulated under CLIA as qualified to perform high-complexity testing. This test is used for clinical purposes. It should not be regarded as investigational or for research. Performed By: #### 1 3964-2 ####[facility] [id number] [place] [address] [place] T4 Free SerPl-mCncon 024 Free T4 [Mass/Vol] 1.5 ng/dL Normal 0.9-1.7 [facility] Comment on above: Order Comment: Speci men Type: BLOOD SPECIMEN Ordering Facility: [facility] Address: [address] [place] [address] Performed By: #### 5 5454-3 #### [facility] CLIA [id number] [address] [place] [address] [place] TSH SerPl-aCncon 06-18-2024 TSH Qn 0.708 m[IU]/L Normal 0.270-4.20 0 [facility] Comment on above: Order Comment: Speci men Type: BLOOD SPECIMEN Ordering Facility: [facility] Address: [address] [place] [address] Performed By: #### 5 5454-3 #### [facility] CLIA [id number] [address] [place] [address] [place] Vit B12 SerPl-mCncon 024 Cobalamin (Vitamin B12) [Mass/Vol] 390 pg/mL Normal 232-1245 [facility] Comment on above: Order Comment: Speci men Type: BLOOD SPECIMEN Ordering Facility: [facility] Address: [address] [place] [address] Performed By: #### 5 5454-3 #### [facility] CLIA [id number] [address] [place] [address] [place] CNOVon 06-16-2024 CNOV Office Visit (FAMPWS ) JAKE CHAIREZ ([id number]) 1975 M Date Time Provider Department 06/16/24 3:20 PM AVNI SALCEDO FAMPWS During your visit today, we recorded the following information about you: Pulse Respiration Blood pressure Weight 92/minute 14/minute 128/68 71.6 kg Avni Salcedo, DO 06/18/2024 9:45 PM Signed CC: Jake Chairez [...] Suppository by RECTAL route twice daily. rizatriptan (MAXALT-CNC MANUFACTURING ENGINEER) 10 mg disintegrating tablet Take 1 tablet [...] Status Bean (more content not included)... Normal [facility] XR FOOT 3V AP/LAT/OBL LTon 1 [...] joint spaces are maintained. No osseous erosion. Automotive Artist: PSCB Transcribe Date/Time: Jun 19 2024 10:38P Dictated by : DIANE MARTINEZ MD This examination was interpreted and the report reviewed and electronically signed by: DIANE MARTINEZ MD on Jun 19 2024 10:38PM EST [id number] Normal [facility] XR HAND 3V PA/LAT/OBL LTon 1 [...] joint spaces are preserved. No osseous erosion. Automotive Artist: PSCB Transcribe Date/Time: Jun 19 2024 10:36P Dictated by : DIANE MARTINEZ MD This examination was interpreted and the report reviewed and electronically signed by: DIANE MARTINEZ MD on Jun 19 2024 10:38PM EST [id number] Normal [facility] CNOVon 04-25-2024 CNOV Office Visit (GENSWS ) JAKE CHAIREZ ([id number]) 1975 Date Time Provider Department 04/25/24 1:00 PM JOY SHEARER During your visit today, we recorded the following information about you: Joy Shearer APRN.CNP 04/25/2024 1:31 PM Signed FOLLOW UP VISIT - ENDOSCOPY Jake Chairez 1975 [id number] REFERRING PHYSICIAN: No referring provider defined for [...] Resected and retrieved. Clip was placed. Clip job forwarder: [facility]. - The entire examined colon is normal. [...] as needed for worsening/no improvement. Joy Shearer APRN.CNP Allergies As of Date: 04/25/2024 Noted Allergy [...] Diagnosis:Diarrhea, unspecifie (more content not included)... Normal [facility] ANES POSTPROC EVALon 024 ANES POSTPROC EVAL HNO ID: [id number] Author: RAMÍREZ ORTIZ DO Service: Anesthesiology Author Type: Anesthesiologist Type: Anesthesia Postprocedure Evaluation Filed: 04/16/2024 13:29 Note Text: POST ANESTHESIA EVALUATION NOTE : 1975 Procedure Summary Date: 04/16/24 Room / Location: [facility] Endoscopy Anesthesia Start: 1048 Anesthesia Stop: 1126 Procedures: COLONOSCOPY SCREENING EGD DIAGNOSTIC Diagnosis: Screening for colon cancer Hyperlipidemia, mixed Gastroesophageal reflux disease, unspecified whether esophagitis present Irritable bowel syndrome with constipation Diarrhea, unspecified type Personal history of colonic polyps (Chronic diarrhea) (Suspected esophageal reflux) Scheduled Providers: John Chowdhury MD; Porsha Irwin APRN.DRY BOX OPERATOR; Ramírez Ortiz DO Responsible Provider: Ramírez Ortiz [...] April 16, 2024 TIME: 1:28 PM CSN: [id number] Normal [facility] ANES PRE-OPon 04-16-2024 ANES PRE-OP HNO ID: [id number] Author: RAMÍREZ ORTIZ DO Service: Anesthesiology Author Type: Anesthesiologist Type: Anesthesia Preprocedure Evaluation Filed: 04/16/2024 09:41 Note Text: ANESTHESIOLOGY DAY OF SURGERY NOTE : 1975 Procedure Information Date/Time: 04/16/24 1030 Scheduled providers: John Chowdhury MD; Porsha Irwin APRN.DRY BOX OPERATOR; Ramírez Ortiz DO Procedures: COLONOSCOPY SCREENING EGD DIAGNOSTIC Location: [facility] Endoscopy Estimated body mass index is 25.26 [...] Time BP 134/89 04/16/24 0920 Pulse 107 04/16/2420 Resp 16 04/16/24919 Temp 36.4 ?C (97.5 ?F) 04/16/24 09 SpO2 99 % 04/16/24 09 Outpatient Medications as of 04/16/2024 Medication Sig [...] Suppository by RECTAL route twice daily. rizatriptan (MAXALT-CNC MANUFACTURING ENGINEER) 10 mg disintegrating tablet Take 1 tablet [...] April 16, 2024 TIME: 9:40 AM CSN: [id number] Normal [facility] Colonoscopyon 04-16-2024 Colonoscopy [facility] Gastrointestinal Endoscopy Patient Name: Jake Chairez Procedure Date: 04/16/2024 10:57 AM Date of : 1975 Admit Type: Outpatient Age: 49 Room: [facility] Gender: Male Note Status: Finalized Attending MD: John Chowdhury MD, [id number] Procedure: Colonoscopy Indications: Chronic diarrhea Providers: John [...] by the physician, the nurse and the commercial trailer truck driver in the procedure room. Airway Examination: normal [...] one hemostatic clip was successfully placed. Clip job forwarder: [facility]. The colon (entire examined portion) appeared normal. [...] Resected and retrieved. Clip was placed. Clip job forwarder: [facility]. - The entire examined colon is normal. [...] for review. Procedure Code(s): --- Professional --- 60907, Colonoscopy, flexible; with removal of tumor(s), polyp(s), or other lesion(s) by snare technique 87085, 59, Colonoscopy, flexible; with biopsy, single or multiple CPT copyright 2020 English Medical [employer]. All rights reserved. The codes documented in this report are preliminary and upon invoice coder review may be revised to meet current compliance requirements. Attending Participation: I personally performed the en (more content not included)... Normal [facility] Colonoscopy Study observatio non 04-16-2024 [facility] Gastrointestinal Endoscopy Patient Name: Jake Chairez Procedure Date: 04/16/2024 10:57 AM Date of : 1975 Admit Type: Outpatient Age: 49 Room: [facility] Gender: Male Note Status: Finalized Attending MD: John Chowdhury MD, [id number] Procedure: Colonoscopy Indications: Chronic diarrhea Providers: John [...] by the physician, the nurse and the commercial trailer truck driver in the procedure room. Airway Examination: normal [...] one hemostatic clip was successfully placed. Clip job forwarder: [facility]. The colon (entire examined portion) appeared normal. [...] Resected and retrieved. Clip was placed. Clip job forwarder: [employer]. - The entire examined colon is normal. Biopsied. (more content not included)... PROVATION [facility] Radiology Study observation (narrative) [facility] EGD Study observation Narrat melanie 04-16-2024 [facility] Gastrointestinal Endoscopy Patient Name: Jake Chairez Procedure Date: 04/16/2024 10:41 AM Date of : 1975 Admit Type: Outpatient Age: 49 Room: [facility] Gender: Male Note Status: Finalized Attending MD: John Chowdhury MD, [id number] Procedure: Upper GI endoscopy Indications: Suspected esophageal [...] by the physician, the nurse and the commercial trailer truck driver in the procedure room. Respiratory Examination: clear [...] 1 week. Procedure Code(s): --- Professional --- 12055, Esophagogastroduodenoscopy, flexible, transoral; with biopsy, single or multiple CPT copyright 2020 [employer]. All rights reserved. The codes documented in this report are preliminary and upon invoice coder review may be revised to meet current compliance requirements. Attending Participation: I was present and participated during the entire procedure, including non-ann portions, and during the administration and monitoring of Moderate Sedation. Scope In: 10:54:04 AM Scope Out: 10:57:00 AM MD John Parks MD (more content not included)... PROVATION [facility] Radiology Study observation (narrative) [facility] GLUCOSE, BLOOD (POC)on 04-16 Glucose [Mass/Vol] 91 mg/dL 74 - 99 mg/dL [facility] Comment on above: Location:[address], [facility] The Accu-Chek Inform II glucose meter has [...] blood gas instrument) in the above situations. [facility] Glucose [Mass/Vol] 99 mg/dL 74 - 99 mg/dL [facility] Comment on above: Location:[facility] [place], [place], [address] The Accu-Chek Inform II glucose meter has [...] blood gas instrument) in the above situations. [facility] HISTORY PHYSICALon HISTORY PHYSICAL HNO ID: [id number] Author: JOHN CHOWDHURY MD Service: ? Author Type: Physician Type: H&P Filed: 04/16/2024 10:37 Note Text: HISTORY AND PHYSICAL Jake Gonzalez Mihaela 1975 REFERRING PHYSICIAN: Su Ham APRN.CNP CHIEF [...] today at the request of Su Ham APRN.INFORMATION SECURITY MANAGER my opinion and advice regarding need for [...] Suppository by RECTAL route twice daily. rizatriptan (MAXALT-CNC MANUFACTURING ENGINEER) 10 mg disintegrating tablet Take 1 tablet by mouth as needed for migraine headache (see administration instructions). May repeat in 2 hours if needed Cholecalciferol, Vitamin D3, 125 mcg (5,000 unit) cap Take 1 capsule by mouth once (more content not included)... [facility] SURGICAL PATHOLOGYon 024 ADDENDUM 1: [facility] Comment on above: Order Comment: Speci men Type: TISSUE SPECIMEN Ordering Facility: [facility] Address: [address] [place] [address] Result Comment: C. I mmunohistochemical stains for CMV, HSV I/II, and stain for PAS/D are negative for viral inclusions and fungal organisms, respectively. Laboratory Developed Test (LDT) Disclaimer: Performance characteristics of immunohistochemical, immunofluorescent and chromogenic in-situ hybridization tests have been determined by the performing laboratory within [facility]???s Sergei Nevarez Pathology and Laboratory Medicine Department ([facility], [facility], [facility], [facility], [facility], [facility], or [facility]) in a manner consistent with CLIA requirements. [...] Performed By: #### S #### [facility] CLIA [id number] [address] [place] [address] [place] CASE REPORT Normal [facility] Comment on above: Order Comment: Speci men Type: TISSUE SPECIMEN Ordering Facility: [facility] Address: [address] [place] [address] Result Comment: Surg [facility] Pathology Report Case: [id number] Authorizing Provider: John Chowdhury MD Collected: 04/16/2024 10:56 AM Ordering Location: [facility] Endoscopy Received: 04/16/2024 12:16 PM Pathologist: Nuria Bernal MD Specimens: A) - Small Bowel, Jejunum, Biopsy B) - Stomach, Antrum, Biopsy C) - Esophagus, Distal, Biopsy D) - Esophagus, Mid, Biopsy E) - Small Bowel, Terminal Ileum, Biopsy F) - Colon, Ascending, Biopsy, random G) - Colon, Descending, Biopsy, random H) - Colon, Sigmoid, Polyp Performed By: #### S #### [facility] CLIA [id number] [address] [place] [address] OF MAXIMINO DIAGNOSIS COMMENT Due to the presence of focally active esophagitis, immunohistochemical stains for CMV, HSV 1/2, and stain for PAS/D are ordered on block C1 will be reported in addendum. Normal [facility] Comment on above: Order Comment: Speci men Type: TISSUE SPECIMEN Ordering Facility: [facility] Address: [address] [place] [address] Performed By: #### S #### [facility] CLIA [id number] [address] [place] [address] OF MAXIMINO FINAL DIAGNOSIS [facility] Comment on above: Order Comment: Speci men Type: TISSUE SPECIMEN Ordering Facility: [facility] Address: [address] [place] [address] Result Comment: A. D uodenum, biopsy: - [...] Performed By: #### S #### [facility] CLIA [id number] [address] [place] [address] OF [place]IMINO FINAL PERFORMING LAB [facility] Comment on above: Order Comment: Speci men Type: TISSUE SPECIMEN Ordering Facility: [facility] Address: [address] [place] [address] Result Comment: Diag nostic interpretation performed at [facility], [address] [place] [address] CLIA# [id number] Rehabilitation Team Lead: Wade Culp M.D. Performed By: #### S #### [facility] CLIA [id number] [address] [place] [address] [place] GROSS DESCRIPTION Normal [facility] Comment on above: Order Comment: Speci men Type: TISSUE SPECIMEN Ordering Facility: [facility] Address: [address] [place] [address] Result Comment: A. S mall Bowel, Jejunum, [...] in one cassette. Gross examination performed at [facility], [address] [place] [address], [address] April 16, 2024 4:21 PM Performed By: #### S #### [facility] CLIA [id number] [address] [place] [address] [place] Upper GI endoscopyon 07-2 024 Upper GI endoscopy [facility] Gastrointestinal Endoscopy Patient Name: Jake Chairez Procedure Date: 04/16/2024 10:41 AM Date of : 1975 Admit Type: Outpatient Age: 49 Room: [facility] Gender: Male Note Status: Finalized Attending MD: John Chowdhury MD, [id number] Procedure: Upper GI endoscopy Indications: Suspected esophageal [...] by the physician, the nurse and the commercial trailer truck driver in the procedure room. Respiratory Examination: clear [...] 1 week. Procedure Code(s): --- Professional --- 24161, Esophagogastroduodenoscopy, flexible, transoral; with biopsy, single or multiple CPT copyright 2020 [employer]. All rights reserved. The codes documented in this report are preliminary and upon invoice coder review may be revised to meet current [...] Blood Loss: Estimated blood loss: none. Normal [facility] 03-05-2024 [facility]KE [facility]AI[facility] ([id number]) 1975 M Date Time Provider Department 03/05/24 1:20 PM [facility] During your visit today, we recorded the following information about you: Pulse Respiration Blood pressure Weight 104/minute 14/minute 118/70 71 kg Su Ham APRN.INFORMATION SECURITY MANAGER 03/05/2024 2:13 PM Signed Chief Complaint Patient [...] Flonase [Fluti (more content not included)... Normal [facility] MRI SHOULDER WO IVCON RIGHTo n 01-24-2023 [facility] XR Shoulder - right 3 Viewso n 11-03-2022 IMPRESSION: Acromioc lavicular joint space narrowing likely degenerative. Automotive Artist: ELMO Transcribe Date/Time: Nov 03 2022 4:50P Dictated by : DARON CORBIN MD This examination was interpreted and the report reviewed and electronically signed by: DARON CORBIN MD on Nov 03 2022 4:52PM [facility] DIVISION OF RADIOLOGY * * *Final [...] soft tissue swelling. DIVISION OF RADIOLOGY Provider, [facility] - 11/03/2022 * * *Final Report* [...] IMPRESSION: Acromioclavicular joint space narrowing likely degenerative. Automotive Artist: PSCB Transcribe Date/Time: Nov 03 2022 4:50P Dictated by : DARON CORBIN MD This examination was interpreted and the report reviewed and electronically signed by: DARON CORBIN MD on Nov 03 2022 4:52PM EST [facility] XR Shoulder - right 3 ViewsO rdered By: Ccf Provider on 11-03-2022 [facility] XR Shoulder - right 3 Viewso n 11-01-2022 Radiology Study observation (narrative) [facility] MRI CERVICAL SPINE WO IVCONo n 10-18-2022 [facility] LUNG VOLUMESon 10-13-2022 ERV BOX (L) 0.83 L [facility] [id number]% POST (L/S) 1.94 L/S [facility] BYY73-82% PRE (L/S) 0.77 L/S [facility] FEV1 PRE (L) 2.13 L [facility] FEV1/FVC POST (%) 66 % [facility] FEV1/FVC PRE (%) 55 % [facility] FEV1_POST (L) 2.77 L [facility] FRC Box (L) 3.68 L [facility] FVC POST (L) 4.19 L [facility] FVC PRE (L) 3.84 L [facility] IC BOX (L) 2.68 L [facility] PEF POST (L/S) 7.22 L/S [facility] PEF PRE (L/S) 6.37 L/S [facility] RV Box (L) 2.81 L [facility] RV/TLC Box (%) 44 % [facility] TLC Box (L) 6.46 L [facility] VC (L) BOX 3.51 L [facility] SPIROMETRY - BASELINE AND PO ST DILATORon 10-13-[address] [facility] [address] CHEST WO IVCONon 09-29-19 [facility] XR CHEST 2V FRONTAL/LATon [facility] XR Chest PA and Lateralon IMPRESSION: Overall findings unchanged. Automotive Artist: ELMO Transcribe Date/Time: Sep 22 2022 2:44P Dictated by : DARON CORBIN MD This examination was interpreted and the report reviewed and electronically signed by: DARON CORBIN MD on Sep 22 2022 2:46PM [facility] DIVISION OF RADIOLOGY * * *Final [...] soft tissues: Unremarkable. DIVISION OF RADIOLOGY Provider, [facility] - 09/22/2022 * * *Final Report* [...] tissues: Unremarkable. IMPRESSION IMPRESSION: Overall findings unchanged. Automotive Artist: [facility] Transcribe Date/Time: Sep 22 2022 2:44P Dictated by : DARON CORBIN MD This examination was interpreted and the report reviewed and electronically signed by: DARON CORBIN MD on Sep 22 2022 2:46PM EST [facility] Radiology Study observation (narrative) [facility] XR Chest PA and LateralOrder ed By: Ccf Provider on 09-22-[address] [facility] [address] NECK SOFT TISSUE W IVCONo n 06-01-2022 [facility] XR CERV OTHER 4V AP/LAT/OBLo n 05-19-2022 [facility] XR Cervical spine AP and Lat eral and obliqueon 05-19-2022 IMPRESSION: Degenera tive changes as detailed in report. 1 cm well-corticated calcification within the left C4-5 foramina not significantly changed from 2017 CT. Automotive Artist: ELMO Transcribe Date/Time: May 19 2022 1:00P Dictated by : PEPPER MARTIN MD This examination was interpreted and the report reviewed and electronically signed by: PEPPER MARTIN MD on May 19 2022 1:09PM [facility] DIVISION OF RADIOLOGY * * *Final [...] relevant examinations available for comparison within the [facility] Imaging Archives. RESULT: 4 views of [...] soft tissue abnormality. DIVISION OF RADIOLOGY Provider, [facility] - 05/19/2022 * * *Final Report* * [...] relevant examinations available for comparison within the [facility] Imaging Archives. RESULT: 4 views of [...] foramina not significantly changed from 2017 CT. Automotive Artist: ELMO Transcribe Date/Time: May 19 2022 1:00P Dictated by : PEPPER MARTIN MD This examination was interpreted and the report reviewed and electronically signed by: PEPPER MARTIN MD on May 19 2022 1:09PM EST [facility] Radiology Study observation (narrative) [facility] XR Cervical spine AP and Lat eral and obliqueOrdered By: Ccf Provider on 05-19-2022 [facility] UA DIP, URINE (POC)on 2021 BILIRUBIN UA (POCT) Negative Negative [facility] CLARITY UA (POCT) Clear [facility] COLOR UA (POCT) Yellow [facility] GLUCOSE UA (POCT) Negative Negative mg/dL [facility] HEMOGLOBIN/BLOOD UA (POCT) Negative Negative [facility] KETONE UA (POCT) Negative Negative mg/dL [facility] LEUKOCYTES UA (POCT) Negative Negative [facility] NITRITE UA (POCT) Negative Negative [facility] PH UA (POCT) 5.5 4.5 - 8.0 [facility] Protein Ql (U) Negative Negative mg/dL [facility] SPECIFIC GRAVITY UA (POCT) <=1.005 Abnormal 1.005 - 1.030 [facility] UROBILINOGEN UA (POCT) 0.2 E.U./dL Normal E.U./dL [facility] XR Knee - left 4 Viewson IMPRESSION: Negative 4 views of the left knee. Automotive Artist: ELMO Transcribe Date/Time: Nov 11 2021 3:12P Dictated by : DARON CORBIN MD This examination was interpreted and the report reviewed and electronically signed by: DARON CORBIN MD on Nov 11 2021 3:14PM [facility] DIVISION OF RADIOLOGY * * *Final [...] Negative 4 views of the left knee. Automotive Artist: ELMO Transcribe Date/Time: Nov 11 2021 3:12P Dictated by : DARON CORBIN MD This examination was interpreted and the report reviewed and electronically signed by: DARON CORBIN MD on Nov 11 2021 3:14PM EST [facility] Radiology Study observation (narrative) [facility] XR Knee - left 4 ViewsOrdere d By: Ccf Provider on 11-11-2021 [facility] XR Chest PA and Lateralon IMPRESSION: No evidence of active disease. Automotive Artist: ELMO Transcribe Date/Time: Oct 26 2021 5:06P Dictated by : BANDAR BLUE MD This examination was interpreted and the report reviewed and electronically signed by: BANDAR BLUE MD on Oct 26 2021 5:07PM EST DIVISION OF RADIOLOGY * * *Final Report* [...] tissues: Unremarkable. DIVISION OF RADIOLOGY Provider, Keegan kerr Perley - 10/26/2021 * * *Final Report* * [...] IMPRESSION IMPRESSION: No evidence of active disease. Automotive Artist: [facility] Transcribe Date/Time: Oct 26 2021 5:06P Dictated by : BANDAR BLUE MD This examination was interpreted and the report reviewed and electronically signed by: BANDAR BLUE MD on Oct 26 2021 5:07PM EST [facility] Radiology Study observation (narrative) [facility] XR Chest PA and LateralOrder ed By: Ccf Provider on 10-26-2021 [facility] No Panel Informationon 07-28 IMPRESSION: No fracture or dislocation. No osseous lesions. No significant arthritic change. Subtle pes planus deformity. Subtle 1 to 2 mm radiopaque foreign body seen in soft tissues of the medial ankle. Automotive Artist: PSC[employer] Transcribe Date/Time: Jul 28 2021 6:51P Dictated by : MANDA ALONSO MD This examination was interpreted and the report reviewed and electronically signed by: MANDA ALONSO MD on Jul 28 2021 6:53PM EST DIVISION OF RADIOLOGY Radiology Study observation (narrative) [facility] No Panel InformationOrdered By: Ccf Provider on 07-28-2021 [facility] XR Ankle - right AP and [...] None RESULT / DIVISION OF RADIOLOGY Provider, [facility] - 07/28/2021 * * *Final Report* [...] in soft tissues of the medial ankle. Automotive Artist: [facility] Transcribe Date/Time: Jul 28 2021 6:51P Dictated by : MANDA ALONSO MD This examination was interpreted and the report reviewed and electronically signed by: MANDA ALONSO MD on Jul 28 2021 6:53PM [facility] XR Foot - right AP and Later [...] None RESULT / DIVISION OF RADIOLOGY Provider, Keegan Peck [facility] - 07/28/2021 * * *Final Report* * [...] in soft tissues of the medial ankle. Automotive Artist: [facility] Transcribe Date/Time: Jul 28 2021 6:51P Dictated by : MANDA ALONSO MD This examination was interpreted and the report reviewed and electronically signed by: MANDA ALONSO MD on Jul 28 2021 6:53PM EST [facility] XR Chest PA and Lateralon IMPRESSION: Stable and unremarkable exam with no acute radiographic abnormality. Automotive Artist: [facility] Transcribe Date/Time: Sep 23 2020 7:44P Dictated by : KARON ZUNIGA MD This examination was interpreted and the report reviewed and electronically signed by: KARON ZUNIGA MD on Sep 23 2020 7:45PM EST DIVISION OF RADIOLOGY * * *Final Report* [...] soft tissues: Unremarkable. DIVISION [facility] RADIOLOGY [facility] - 09/23/2020 * * *Final Report* * [...] unremarkable exam with no acute radiographic abnormality. Automotive Artist: [facility] Transcribe Date/Time: Sep 23 2020 7:44P Dictated by : KARON ZUNIGA MD This examination was interpreted and the report reviewed and electronically signed by: KARON ZUNIGA MD on Sep 23 2020 7:45PM EST [facility] Radiology Study observation (narrative) [facility] XR Chest PA and LateralOrder ed By: Ccf Provider on 09-23-2020 [facility] MRI Spine Lumbar w/ + w/o Co ntraston 10-01-2018 MRI Spine Lumbar w/ + w/o Contrast Patient Name: JAKE CHAIREZ MRI Exam Date/Time 09/30/2018 11:01:22 EST Exam MRI Spine Lumbar w/ + w/o Contrast Ordering Physician MD BEN, SUZI [place] Accession Number [id number] CPT4 Codes 73716 () Reason For Exam status post lumbar [...] Transcribed Date and Time: 10/01/2018 7:46 Normal [facility] 08-09-2017 [facility] Office Visit (AGCARDWST) JAKE CONCEPCION ([id number]) 1975 [facility] Dbebgkcmqj58/30/17 4:00 PM INDRA DUPREE AGCARDWST During your visit today, we recorded the following information about you: Pulse Blood pressure Weight 106/minute 136/88 73.6 kgIndra Dupree MD 08/09/2017 4:33 PM SignedLIFESTYLE CHANGEA healthy lifestyle is the most important [...] - N/ABeta james for ASHD with prior MS or prior LVEFANDlt;40 (NQF 0070) - N/ABeta james for HF with prior LVEFANDlt;40 (NQF 0083) - N/AACE-I or ARB for ASHD with DM or prior LVEFANDlt;40 (NQF 0066) - N/AStatin therapy for ASHD or FHL or DM - N/ABMI documented and plan if ANDgt;25 (NQF 0421) - lifestyle recommendation formTobacco use screening and referral (NQ 0028) - lifestyle recommendation formRecommendation for whole [...] with treatment plan.This note was generated using [employer] voice recognition system, and there may besome [...] 1 tablet by mouth daily at bedtime.rizatriptan (MAXALT-CNC MANUFACTURING ENGINEER) 10 mg disintegrating tablet Take 1 tablet [...] He had a restingtachycardia.Electronical ly Signed:Indra Dupree MDNov2016 4:36 [facility] INSTITUTEC: [facility] Provider: INDRA DUPREE [[id number]]Allergies As of Date: 08/09/2017 Noted Allergy ReactionADVAIR [...] numbness in armDate Reviewed: 08/09/2017Reviewed by: Chica ArmstrongInstallation Specialist) [place] - Fully AssessedReason for Visit: Recheck [92]Primary [...] the following areas and commit to making fdc changes. EAT A WHOLE FOOD, PLANT BASED [...] Status:Closed by INDRA DUPREE MD on 08/09/17 [facility] PROGRESSon 08-09-2017 PROGRESS HNO ID: [id number] thor: Indra Pino: (none)Author Type: PhysicianType: Progress NotesFiled: 08/09/2017 4:41 PMNote Text:PERTINENT CARDIAC HISTORYChest painHLHTNFamily history premature CADADHERENCE TO GUIDELINESACE-I or ARB for HF with prior LVEF<40 (NQF 0081) - N/AASA or Plavix for ASHD (NQF 0067) - N/ABeta james for ASHD with prior MS or prior LVEF<40 (NQF 0070) - N/ABeta [...] with treatment plan.This note was generated using [employer] voice recognition system, and theremay be some [...] increased since he has been on thebronchodilators.ALLERGIES:AL SAMGIESAllergen Reactions- Advair Diskus [Flut* Other: See Comments [...] Take 1 tablet by mouth daily atbedtime.rizatriptan (MAXALT-CNC MANUFACTURING ENGINEER) 10 mg disintegrating tablet Take 1 tablet [...] He had a restingtachycardia.Electronical ly Signed:Indra Dupree MDNov2016 4:36 PMCC: Avni Salcedo DO Normal [facility] CNCOon 07-18-2017 Erythrocyte distribution width Auto Ratio (RBC) Letter TextDepartment of TtdmhhxophQtcz[address] [place], [place] [address]Rxdjb: [phone]/17/2016TO WHOM IT MAY CONCERN:This is to confirm that [facility] had an [facility] Staff on[facility]18/2017 and may return to work on 07-18-17.Sincerely yours,Cardiology Staff Normal [facility] Vital Signs Date Time Vital Sign Value Performing Clinician Facility 01-12-2025 14:24-040 Body mass index (BMI) [Ratio] 26.47 kg/m2 Elmer White MD Work Phone: [facility] 01-12-2025 14:24-040 Body weight 74.39 kg Elmer White MD Work Phone: [facility] 01-12-2025 14:24-0400 Diastolic blood pressure 96 mm[Hg] Elmer White MD Work Phone: [facility] 01-12-2025 14:24-0400 Heart rate 118 /min Elmer White MD Work Phone: [facility] 01-12-2025 14:24-0400 Respiratory rate 16 /min Elmer White MD Work Phone: [facility] 01-12-2025 14:24-0400 Systolic blood pressure 128 mm[Hg] Elmer White MD Work Phone: [facility] 01-08-2025 14:01-0400 Body mass index (BMI) [Ratio] 26.69 kg/m2 Tavon Valencia DIGITAL ARCHIVIST.INFORMATION SECURITY MANAGER Work Phone: [facility] 01-08-2025 14:01-0400 Body weight 75 kg Tavon Valencia DIGITAL ARCHIVIST.INFORMATION SECURITY MANAGER Work Phone: [facility] 01-08-2025 14:01-0400 Diastolic blood pressure 87 mm[Hg] Tavon Valencia DIGITAL ARCHIVIST.INFORMATION SECURITY MANAGER Work Phone: [facility] 01-08-2025 14:01-0400 Heart rate 108 /min Tavon Valencia DIGITAL ARCHIVIST.INFORMATION SECURITY MANAGER Work Phone: [facility] 01-08-2025 14:01-0400 Systolic blood pressure 126 mm[Hg] Tavon Valencia DIGITAL ARCHIVIST.INFORMATION SECURITY MANAGER Work Phone: [facility] 01-07-2025 14:51-0400 Body height 167.6 cm Yoon Click DIGITAL ARCHIVIST.INFORMATION SECURITY MANAGER Work Phone: [facility] 01-07-2025 14:51-0400 Body mass index (BMI) [Ratio] 26.79 kg/m2 Yoon Click DIGITAL ARCHIVIST.INFORMATION SECURITY MANAGER Work Phone: [facility] 01-07-2025 14:51-0400 Body weight 75.3 kg Yoon Click DIGITAL ARCHIVIST.INFORMATION SECURITY MANAGER Work Phone: [facility] 01-07-2025 14:51-0400 Diastolic blood pressure 78 mm[Hg] Yoon Click DIGITAL ARCHIVIST.INFORMATION SECURITY MANAGER Work Phone: [facility] 01-07-2025 14:51-0400 Heart rate 117 /min Yoon Click DIGITAL ARCHIVIST.INFORMATION SECURITY MANAGER Work Phone: [facility] 01-07-2025 14:51-0400 Respiratory rate 15 /min Yoon Click DIGITAL ARCHIVIST.INFORMATION SECURITY MANAGER Work Phone: [facility] 01-07-2025 14:51-0400 SaO2% (BldA) [Mass fraction] 97 % Yoon Click DIGITAL ARCHIVIST.INFORMATION SECURITY MANAGER Work Phone: [facility] 01-07-2025 14:51-0400 Systolic blood pressure 122 mm[Hg] Yoon Click DIGITAL ARCHIVIST.INFORMATION SECURITY MANAGER Work Phone: [facility] 01-07-2025 14:45-0400 Body height 167.6 cm Pulm Wstr Work Phone: [facility] 01-07-2025 14:45-0400 Body mass index (BMI) [Ratio] 26.79 kg/m2 Pulm Wstr Work Phone: [facility] 01-07-2025 14:45-0400 Body weight 75.3 kg Pulm Wstr Work Phone: [facility] 01-07-2025 14:45-0400 Heart rate 117 /min Pulm Wstr Work Phone: [facility] 01-07-2025 14:45-0400 Respiratory rate 15 /min Pulm Wstr Work Phone: [facility] 01-07-2025 14:45-0400 SaO2% (BldA) [Mass fraction] 97 % Pulm Wstr Work Phone: [facility] 10-09-2024 14:41-0500 Body mass index (BMI) [Ratio] 26.79 kg/m2 Shayla Rogers MD Work Phone: [facility] 10-09-2024 14:41-0500 Body weight 75.3 kg Shayla Rogers MD Work Phone: [facility] 10-09-2024 14:41-0500 Diastolic blood pressure 72 mm[Hg] Shayla Rogers MD Work Phone: [facility] 10-09-2024 14:41-0500 Heart rate 101 /min Shayla Rogers MD Work Phone: [facility] 10-09-2024 14:41-0500 Respiratory rate 18 /min Shayla Rogers MD Work Phone: [facility] 10-09-2024 14:41-0500 SaO2% (BldA) [Mass fraction] 98 % Shayla Rogers MD Work Phone: [facility] 10-09-2024 14:41-0500 Systolic blood pressure 118 mm[Hg] Shayla Rogers MD Work Phone: [facility] 10-06-2024 12:53-0500 Body mass index (BMI) [Ratio] 26.86 kg/m2 Elmira Hammond DIGITAL ARCHIVIST.INFORMATION SECURITY MANAGER Work Phone: [facility] 10-06-2024 12:53-0500 Body weight 75.48 kg Elmira Hammond DIGITAL ARCHIVIST.INFORMATION SECURITY MANAGER Work Phone: [facility] 10-06-2024 12:53-0500 Diastolic blood pressure 78 mm[Hg] Elmira Hammond DIGITAL ARCHIVIST.INFORMATION SECURITY MANAGER Work Phone: [facility] 10-06-2024 12:53-0500 Heart rate 100 /min Elmira Hammond DIGITAL ARCHIVIST.INFORMATION SECURITY MANAGER Work Phone: [facility] 10-06-2024 12:53-0500 Respiratory rate 20 /min Elmira Hammond DIGITAL ARCHIVIST.INFORMATION SECURITY MANAGER Work Phone: [facility] 10-06-2024 12:53-0500 SaO2% (BldA) [Mass fraction] 98 % Elmira Hammond DIGITAL ARCHIVIST.INFORMATION SECURITY MANAGER Work Phone: [facility] 10-06-2024 12:53-0500 Systolic blood pressure 124 mm[Hg] Elmira Hammond DIGITAL ARCHIVIST.INFORMATION SECURITY MANAGER Work Phone: [facility] 06-16-2024 15:45-0400 Body mass index (BMI) [Ratio] 25.47 kg/m2 Avni Salcedo DO Work Phone: [facility] 06-16-2024 15:45-0400 Body weight 71.58 kg Avni Salcedo DO Work Phone: [facility] 06-16-2024 15:45-0400 Diastolic blood pressure 68 mm[Hg] Avni Salcedo DO Work Phone: [facility] 06-16-2024 15:45-0400 Heart rate 92 /min Avni Salcedo DO Work Phone: [facility] 06-16-2024 15:45-0400 Respiratory rate 14 /min Avni Salcedo DO Work Phone: [facility] 06-16-2024 15:45-0400 SaO2% (BldA) [Mass fraction] 98 % Avni Salcedo DO Work Phone: [facility] 06-16-2024 15:45-0400 Systolic blood pressure 128 mm[Hg] Avni Salcedo DO Work Phone: [facility] 04-16-2024 12:46-0400 Diastolic blood pressure 85 mm[Hg] John Chowdhury MD Work Phone: [facility] 04-16-2024 12:46-0400 Heart rate 89 /min John Chowdhury MD Work Phone: [facility] 04-16-2024 12:46-0400 Respiratory rate 16 /min John Chowdhury MD Work Phone: [facility] 04-16-2024 12:46-0400 SaO2% (BldA) [Mass fraction] 98 % John Chowdhury MD Work Phone: [facility] 04-16-2024 12:46-0400 Systolic blood pressure 152 mm[Hg] John Chowdhury MD Work Phone: [facility] 04-16-2024 11:26-0400 Body temperature 98.2 [degF] John Chowdhury MD Work Phone: [facility] 04-16-2024 09:20-0400 Body height 167.6 cm John Chowdhury MD Work Phone: [facility] 04-16-2024 09:20-0400 Body mass index (BMI) [Ratio] 25.26 kg/m2 oJhn Chowdhury MD Work Phone: [facility] 04-16-2024 09:20-0400 Body weight 71 kg John Chowdhury MD Work Phone: [facility] 03-05-2024 13:11-0400 Body mass index (BMI) [Ratio] 25.28 kg/m2 Su Ham DIGITAL ARCHIVIST.INFORMATION SECURITY MANAGER Work Phone: [facility] 03-05-2024 13:11-0400 Body weight 71.03 kg Su Ham DIGITAL ARCHIVIST.INFORMATION SECURITY MANAGER Work Phone: [facility] 03-05-2024 13:11-0400 Diastolic blood pressure 70 mm[Hg] Su Ham DIGITAL ARCHIVIST.INFORMATION SECURITY MANAGER Work Phone: [facility] 03-05-2024 13:11-0400 Heart rate 104 /min Su Ham DIGITAL ARCHIVIST.INFORMATION SECURITY MANAGER Work Phone: [facility] 03-05-2024 13:11-0400 Respiratory rate 14 /min Su Ham DIGITAL ARCHIVIST.INFORMATION SECURITY MANAGER Work Phone: [facility] 03-05-2024 13:11-0400 Systolic blood pressure 118 mm[Hg] Su Ham DIGITAL ARCHIVIST.INFORMATION SECURITY MANAGER Work Phone: [facility] 02-08-2024 11:31-0400 Body height 167.6 cm John Chowdhury MD Work Phone: [facility] 02-08-2024 11:31-0400 Body mass index (BMI) [Ratio] 26.08 kg/m2 Jhon Chowdhury MD Work Phone: [facility] 02-08-2024 11:31-0400 Body temperature 98.71 [degF] John Chowdhury MD Work Phone: [facility] 02-08-2024 11:31-0400 Body weight 73.3 kg John Chowdhury MD Work Phone: [facility] 02-08-2024 11:31-0400 Diastolic blood pressure 88 mm[Hg] John Chowdhury MD Work Phone: [facility] 02-08-2024 11:31-0400 Heart rate 101 /min John Chowdhury MD Work Phone: [facility] 02-08-2024 11:31-0400 SaO2% (BldA) [Mass fraction] 98 % John Chowdhury MD Work Phone: [facility] 02-08-2024 11:31-0400 Systolic blood pressure 124 mm[Hg] John Chowdhury MD Work Phone: [facility] 01-31-2024 13:33-0400 Body mass index (BMI) [Ratio] 26.7 kg/m2 Su Ham DIGITAL ARCHIVIST.INFORMATION SECURITY MANAGER Work Phone: [facility] 01-31-2024 13:33-0400 Body weight 73.57 kg Su Ham DIGITAL ARCHIVIST.INFORMATION SECURITY MANAGER Work Phone: [facility] 01-31-2024 13:33-0400 Diastolic blood pressure 96 mm[Hg] Su Ham DIGITAL ARCHIVIST.INFORMATION SECURITY MANAGER Work Phone: [facility] 01-31-2024 13:33-0400 Heart rate 96 /min Su Ham DIGITAL ARCHIVIST.INFORMATION SECURITY MANAGER Work Phone: [facility] 01-31-2024 13:33-0400 Respiratory rate 14 /min Su Ham DIGITAL ARCHIVIST.INFORMATION SECURITY MANAGER Work Phone: [facility] 01-31-2024 13:33-0400 SaO2% (BldA) [Mass fraction] 98 % Su Ham DIGITAL ARCHIVIST.INFORMATION SECURITY MANAGER Work Phone: [facility] 01-31-2024 13:33-0400 Systolic blood pressure 136 mm[Hg] Su Ham DIGITAL ARCHIVIST.INFORMATION SECURITY MANAGER Work Phone: [facility] 01-08-2023 14:56-0400 Body temperature 98.01 [degF] Avni Salcedo DO Work Phone: [facility] 01-08-2023 14:56-0400 Body weight 74.84 kg Avni Salcedo DO Work Phone: [facility] 01-08-2023 14:56-0400 Diastolic blood pressure 80 mm[Hg] Avni Salcedo DO Work Phone: [facility] 01-08-2023 14:56-0400 Heart rate 80 /min Avni Salcedo DO Work Phone: [facility] 01-08-2023 14:56-0400 Respiratory rate 16 /min Avni Salcedo DO Work Phone: [facility] 01-08-2023 14:56-0400 Systolic blood pressure 112 mm[Hg] Avni Salcedo DO Work Phone: [facility] 11-16-2022 19:40-0500 Body height 167.[address] Avni Salcedo Work Phone: 4(167)[phone] [place] [address] 11-16-2022 19:40-0500 Body mass index (BMI) [Ratio] 27.4 kg/m2 Dr. Avni Salcedo Work Phone: 8(757)[phone] [place] [address] 11-16-2022 19:40-0500 Body temperature 97 [degF] Dr. Avni Salcedo Work Phone: 5(674)[phone] [place] [address] 11-16-2022 19:40-0500 Body weight 77.[address] Avni Salcedo Work Phone: 1(601)[phone] [place] [address] 11-16-2022 19:40-0500 Diastolic blood pressure 97 mm[Hg] Dr. Avni Salcedo Work Phone: 6(630)[phone] [place] [address] 11-16-2022 19:40-0500 Heart rate 110 /min Dr. Avni Salcedo Work Phone: 2(072)826-407602 [place] [address] 11-16-2022 19:40-0500 Respiratory rate 16 /min Dr. Avni Salcedo Work Phone: [facility] 11-16-2022 19:40-0500 SaO2% (BldA) [Mass fraction] 100 % Dr. Avni Salcedo Work Phone: [facility] 11-16-2022 19:40-0500 Systolic blood pressure 169 mm[Hg] Dr. Avni Salcedo Work Phone: [facility] 11-02-2022 14:05-0500 Body mass index (BMI) [Ratio] 27.4 kg/m2 Dr. Avni Salcedo Work Phone: [facility] 11-02-2022 14:05-0500 Body weight 77.[address] Avni Salcedo Work Phone: [facility] 11-01-2022 14:18-0500 Body weight 77.02 kg Su Ham DIGITAL ARCHIVIST.INFORMATION SECURITY MANAGER Work Phone: [facility] 11-01-2022 14:18-0500 Diastolic blood pressure 70 mm[Hg] Su Ham DIGITAL ARCHIVIST.INFORMATION SECURITY MANAGER Work Phone: [facility] 11-01-2022 14:18-0500 Heart rate 100 /min Su Ham DIGITAL ARCHIVIST.INFORMATION SECURITY MANAGER Work Phone: [facility] 11-01-2022 14:18-0500 Respiratory rate 14 /min Su Ham DIGITAL ARCHIVIST.INFORMATION SECURITY MANAGER Work Phone: [facility] 11-01-2022 14:18-0500 SaO2% (BldA) [Mass fraction] 97 % Su Ham DIGITAL ARCHIVIST.INFORMATION SECURITY MANAGER Work Phone: [facility] 11-01-2022 14:18-0500 Systolic blood pressure 128 mm[Hg] Su Ham DIGITAL ARCHIVIST.INFORMATION SECURITY MANAGER Work Phone: [facility] 10-13-2022 12:50-0500 Body weight 75.3 kg Pulm Wstr Work Phone: [facility] 10-13-2022 12:50-0500 Heart rate 109 /min Pulm Wstr Work Phone: [facility] 10-13-2022 12:50-0500 Respiratory rate 14 /min Pulm Wstr Work Phone: [facility] 10-13-2022 12:50-0500 SaO2% (BldA) [Mass fraction] 98 % Pulm Wstr Work Phone: [facility] 10-11-2022 16:52-0500 Body temperature 97 [degF] Avni Salcedo DO Work Phone: [facility] 10-11-2022 16:52-0500 Body weight 77.56 kg Avni Salcedo DO Work Phone: [facility] 10-11-2022 16:52-0500 Diastolic blood pressure 82 mm[Hg] Avni Salcedo DO Work Phone: [facility] 10-11-2022 16:52-0500 Heart rate 64 /min Avni Salcedo DO Work Phone: [facility] 10-11-2022 16:52-0500 Respiratory rate 16 /min Avni Salcedo DO Work Phone: [facility] 10-11-2022 16:52-0500 Systolic blood pressure 134 mm[Hg] Avni Salcedo DO Work Phone: [facility] 09-22-2022 13:07-0500 Body temperature 98.29 [degF] Su Ham DIGITAL ARCHIVIST.INFORMATION SECURITY MANAGER Work Phone: [facility] 09-22-2022 13:07-0500 Body weight 75.39 kg Su Ham DIGITAL ARCHIVIST.INFORMATION SECURITY MANAGER Work Phone: [facility] 09-22-2022 13:07-0500 Diastolic blood pressure 80 mm[Hg] Su Ham DIGITAL ARCHIVIST.INFORMATION SECURITY MANAGER Work Phone: [facility] 09-22-2022 13:07-0500 Heart rate 104 /min Su Ham DIGITAL ARCHIVIST.INFORMATION SECURITY MANAGER Work Phone: [facility] 09-22-2022 13:07-0500 Respiratory rate 16 /min Su Ham DIGITAL ARCHIVIST.INFORMATION SECURITY MANAGER Work Phone: [facility] 09-22-2022 13:07-0500 SaO2% (BldA) [Mass fraction] 98 % Su Ham DIGITAL ARCHIVIST.INFORMATION SECURITY MANAGER Work Phone: [facility] 09-22-2022 13:07-0500 Systolic blood pressure 130 mm[Hg] Su Ham DIGITAL ARCHIVIST.INFORMATION SECURITY MANAGER Work Phone: [facility] 09-18-2022 11:10-0500 Body temperature 97.9 [degF] Elmer Pendlebury DIGITAL ARCHIVIST.INFORMATION SECURITY MANAGER Work Phone: [facility] 09-18-2022 11:10-0500 Body weight 74.39 kg Elmer Pendlebury DIGITAL ARCHIVIST.INFORMATION SECURITY MANAGER Work Phone: [facility] 09-18-2022 11:10-0500 Diastolic blood pressure 72 mm[Hg] Elmer Pendlebury DIGITAL ARCHIVIST.INFORMATION SECURITY MANAGER Work Phone: [facility] 09-18-2022 11:10-0500 Heart rate 118 /min Elmer Pendlebury DIGITAL ARCHIVIST.INFORMATION SECURITY MANAGER Work Phone: [facility] 09-18-2022 11:10-0500 Respiratory rate 18 /min Elmer Pendlebury DIGITAL ARCHIVIST.INFORMATION SECURITY MANAGER Work Phone: [facility] 09-18-2022 11:10-0500 SaO2% (BldA) [Mass fraction] 97 % Elmer Pendlebury DIGITAL ARCHIVIST.INFORMATION SECURITY MANAGER Work Phone: [facility] 09-18-2022 11:10-0500 Systolic blood pressure 122 mm[Hg] Elmer Pendlebury DIGITAL ARCHIVIST.INFORMATION SECURITY MANAGER Work Phone: [facility] 07-10-2022 14:59-0400 Body temperature 98.2 [degF] Avni Salcedo DO Work Phone: [facility] 07-10-2022 14:59-0400 Body weight 75.3 kg Avni Salcedo DO Work Phone: [facility] 07-10-2022 14:59-0400 Diastolic blood pressure 80 mm[Hg] Avni Salcedo DO Work Phone: [facility] 07-10-2022 14:59-0400 Heart rate 104 /min Avni Salcedo DO Work Phone: [facility] 07-10-2022 14:59-0400 Respiratory rate 12 /min Avni Salcedo DO Work Phone: [facility] 07-10-2022 14:59-0400 Systolic blood pressure 120 mm[Hg] Avni Salcedo DO Work Phone: [facility] 05-30-2022 13:00-0400 Diastolic blood pressure 86 mm[Hg] Yash Golias PT Work Phone: [facility] 05-30-2022 13:00-0400 Systolic blood pressure 126 mm[Hg] Yash Golias PT Work Phone: [facility] 05-19-2022 10:56-0400 Body temperature 96.49 [degF] Avni Salcedo DO Work Phone: [facility] 05-19-2022 10:56-0400 Body weight 74.84 kg Avni Salcedo DO Work Phone: [facility] 05-19-2022 10:56-0400 Diastolic blood pressure 82 mm[Hg] Avni Salcedo DO Work Phone: [facility] 05-19-2022 10:56-0400 Heart rate 96 /min Avni Salcedo DO Work Phone: [facility] 05-19-2022 10:56-0400 Respiratory rate 16 /min Avni Salcedo DO Work Phone: [facility] 05-19-2022 10:56-0400 Systolic blood pressure 138 mm[Hg] Avni Salcedo DO Work Phone: [facility] 04-18-2022 16:23-0400 Body temperature 99.9 [degF] Tammy Llanes APRN.INFORMATION SECURITY MANAGER Work Phone: [facility] 04-18-2022 16:23-0400 Body weight 73.48 kg Tammy Shraddha DIGITAL ARCHIVIST.INFORMATION SECURITY MANAGER Work Phone: [facility] 04-18-2022 16:23-0400 Diastolic blood pressure 74 mm[Hg] Tammy Shraddha DIGITAL ARCHIVIST.INFORMATION SECURITY MANAGER Work Phone: [facility] 04-18-2022 16:23-0400 Heart rate 119 /min Tammy Shraddha DIGITAL ARCHIVIST.INFORMATION SECURITY MANAGER Work Phone: [facility] 04-18-2022 16:23-0400 Respiratory rate 18 /min Tammy Shraddha DIGITAL ARCHIVIST.INFORMATION SECURITY MANAGER Work Phone: [facility] 04-18-2022 16:23-0400 SaO2% (BldA) [Mass fraction] 97 % Tammy Shraddha DIGITAL ARCHIVIST.INFORMATION SECURITY MANAGER Work Phone: [facility] 04-18-2022 16:23-0400 Systolic blood pressure 130 mm[Hg] Tammy Shraddha DIGITAL ARCHIVIST.INFORMATION SECURITY MANAGER Work Phone: [facility] 12-12-2021 13:01-0400 Body height 166 cm NA Ludwig PA-C Work Phone: [facility] 12-12-2021 13:01-0400 Body weight 74.84 kg NA Ludwig PA-C Work Phone: [facility] 12-12-2021 13:01-0400 Diastolic blood pressure 74 mm[Hg] NA Ludwig PA-C Work Phone: [facility] 12-12-2021 13:01-0400 Heart rate 107 /min NA Ludwig PA-C Work Phone: [facility] 12-12-2021 13:01-0400 Respiratory rate 16 /min NA Ludwig PA-C Work Phone: [facility] 12-12-2021 13:01-0400 SaO2% (BldA) [Mass fraction] 97 % NA Ludwig PA-C Work Phone: [facility] 12-12-2021 13:01-0400 Systolic blood pressure 122 mm[Hg] NA Oziel SANTILLAN Work Phone: [facility] Encounters Encounter Date Encounter Type Care Provider Facility Start: 02-21-2025 End: 02-21-2025 Patient encounter procedure Adrianna MORAN Work Phone: [facility] Comment on above: Procedure not mariela d out (Primary Dx) Start: 02-04-2025 End: 02-05-2025 Telephone encounter lEmer White MD Work Phone: [facility] Start: 01-30-2025 End: 01-30-2025 ambulatory YOON MAGANA Facility:[id number] Start: 01-13-2025 End: 01-14-2025 Follow-up encounter Elmer White MD Work Phone: [facility] Comment on above: Results Start: 01-12-2025 End: 01-12-2025 Subsequent hospital visit by physician Xr [facility] Work Phone: Radiology Comment on above: Rib pain on left dustin e [R07.81] Start: 01-12-2025 End: 01-12-2025 Office outpatient visit 25 minutes Elmer White MD Work Phone: [facility] [place] Comment on above: Rib pain on left dustin e (Primary Dx); Left sided abdominal pain Start: 01-12-2025 End: 01-12-2025 ambulatory TAVON VALENCIA Facility:[facility] Start: 01-12-2025 End: 01-13-2025 Follow-up encounter Elmer White MD Work Phone: [facility] Comment on above: Results Start: 01-08-2025 End: 01-08-2025 Patient encounter procedure Tavon Valencia DIGITAL ARCHIVIST.INFORMATION SECURITY MANAGER Work Phone: [facility] Comment on above: IFG (impaired fastin g glucose) (Primary Dx); Hyperlipidemia, mixed; Chronic allergic rhinitis; Displacement of lumbar intervertebral disc without myelopathy; Essential hypertension, benign; Migraine without aura and without status migrainosus, not intractable; Sarcoidosis of lung (HCC); Mixed hyperlipidemia; Asthma, moderate persistent, well-controlled (HCC) Start: 01-08-2025 End: 01-08-2025 ambulatory TAVON VALENCIA Facility:[facility] Start: 01-07-2025 End: 01-07-2025 Office outpatient visit 40 minutes Yoon Magana APRN.CNP Work Phone: Pulmonary Medicine Comment on above: Asthma, moderate per sistent, poorly-controlled (HCC) (Primary Dx); Acute non-recurrent maxillary sinusitis; Chronic allergic rhinitis; Daytime sleepiness; Former cigarette smoker Start: 01-07-2025 End: 01-07-2025 Patient encounter procedure Pulm Lab [facility] Work Phone: PULM [facility] Start: 01-07-2025 End: 01-07-2025 ambulatory Pulm Lab [facility] Work Phone: [facility] Comment on above: Spirometry Start: 01-02-2025 End: 01-02-2025 ambulatory Avni Salcedo Facility:[facility] Start: 10-15-2024 End: 10-15-2024 Refill Avni Powellon DO Work Phone: [facility] Comment on above: Refill Request Start: 10-09-2024 End: 10-09-2024 ambulatory SHAYLA ROGERS Facility:[facility] Start: 10-09-2024 End: 10-09-2024 Patient encounter procedure Shayla Rogers MD Work Phone: Pulmonary Medicine Comment on above: Asthma, moderate per sistent, poorly-controlled (Primary Dx); H/O sarcoidosis; Former cigarette smoker Start: 10-06-2024 End: 10-06-2024 Refill Avni Salcedo DO Work Phone: [facility] Comment on above: Refill Request Encounter for screen ing for lung cancer (Primary Dx); Tobacco abuse Insurance Authorizat ion Start: 09-01-2024 End: 09-01-2024 Telephone encounter Avni Powellon DO Work Phone: [facility] Comment on above: Results Start: 08-18-2024 End: 08-18-2024 Telephone encounter Avni Powellon DO Work Phone: [facility] Comment on above: Insurance Authorizat ion (Hydrocortisone suppository ) Start: 08-15-2024 End: 08-15-2024 Refill Avni Ahnrison DO Work Phone: [facility] Comment on above: Patient Question; Re fill Request Start: 08-05-2024 End: 08-08-2024 ambulatory Avni Salcedo DO Work Phone: [facility] Comment on above: Blood work Start: 08-05-2024 End: 08-05-2024 Refill Su Ham DIGITAL ARCHIVIST.INFORMATION SECURITY MANAGER Work Phone: [facility] [place] Comment on above: Refill Request Start: 07-25-2024 End: 07-28-2024 Refill Su Ham DIGITAL ARCHIVIST.INFORMATION SECURITY MANAGER Work Phone: [facility] [place] Comment on above: Refill Request Start: 07-02-2024 End: 07-03-2024 Telephone encounter Avni Powellon DO Work Phone: [facility] [place] Comment on above: Results Start: 06-26-2024 End: 06-26-2024 ambulatory AVNI SALCEDO Facility:[facility] Start: 06-26-2024 End: 06-26-2024 Telephone encounter Avni Powellon DO Work Phone: [facility] [place] Start: 06-24-2024 End: 06-24-2024 Telephone encounter Avni Ahnrison DO Work Phone: [facility] Comment on above: Results Start: 06-23-2024 End: 06-23-2024 Subsequent hospital visit by physician Olesya [facility] (I-Stat) Work Phone: Cat Scan Comment on above: Pulmonary nodule [R9 1.1] Start: 06-23-2024 End: 06-26-2024 ambulatory Portia Andujar PA-C Work Phone: Pulmonary Medicine Start: 06-18-2024 End: 06-18-2024 ambulatory AVNI L SALCEDO Facility:[facility] Start: 06-16-2024 End: 06-16-2024 ambulatory AVNI L SALCEDO Facility:[facility] Start: 06-16-2024 End: 06-16-2024 Subsequent hospital visit by physician Efrem [facility] Work Phone: Radiology Comment on above: Pain of left thumb [ M79.645] Start: 06-16-2024 End: 06-16-2024 Patient encounter procedure Avin Salcedo DO Work Phone: [facility] Comment on above: Pain of left thumb ( Primary Dx); Foot pain, left; Hyperlipidemia, mixed; IFG (impaired fasting glucose); Vitamin D deficiency; Fatigue, unspecified type; Pulmonary nodule; LVH (left ventricular hypertrophy); 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; Vitamin B12 deficiency Start: 06-16-2024 End: 06-16-2024 ambulatory AVNI SALCEDO Facility:[facility] Start: 06-06-2024 End: 06-09-2024 Refill Avni Salcedo DO Work Phone: [facility] Comment on above: Refill Request Start: 04-28-2024 End: 04-28-2024 Refill Su Ham APRN.INFORMATION SECURITY MANAGER Work Phone: [facility] Comment on above: Refill Request Start: 04-25-2024 End: 04-25-2024 ambulatory AVNI SALCEDO Facility:[facility] Start: 04-25-2024 End: 04-25-2024 Patient encounter procedure Joy Shearer APRN.INFORMATION SECURITY MANAGER Work Phone: General Surgery Comment on above: Gastroesophageal ref lux disease with esophagitis without hemorrhage (Primary Dx); Diarrhea, unspecified type Start: 04-16-2024 ambulatory AVNI POWELLON Facil it:[facility] Start: 04-16-2024 End: 04-16-2024 Subsequent hospital visit by physician John Chowdhury MD Work Phone: [facility] Endoscopy Comment on above: Screening for colon cancer [Z12.11] Start: 03-05-2024 End: 03-05-2024 ambulatory AVNI SALCEDO Facility:[facility] Start: 03-05-2024 End: 03-05-2024 Patient encounter procedure Su Ham DIGITAL ARCHIVIST.INFORMATION SECURITY MANAGER [facility] Comment on above: Essential hypertensi on, benign (Primary Dx); Anxiety with depression Start: 02-20-2024 Refill Su Ham DIGITAL ARCHIVIST.INFORMATION SECURITY MANAGER Work Phone: [facility] Comment on above: Refill Request Start: 02-08-2024 End: 02-08-2024 Patient encounter procedure John Chowdhury MD Work Phone: General Surgery Comment on above: Gastroesophageal ref lux disease, unspecified whether esophagitis present (Primary Dx); Screening for colon cancer; Hyperlipidemia, mixed; Irritable bowel syndrome with constipation; Diarrhea, unspecified type; Personal history of colonic polyps Start: 02-06-2024 Telephone encounter Su lopez DIGITAL ARCHIVIST.INFORMATION SECURITY MANAGER Work Phone: [facility] Comment on above: Results Start: 01-31-2024 End: 01-31-2024 Patient encounter procedure Su Ham DIGITAL ARCHIVIST.INFORMATION SECURITY MANAGER Work Phone: [facility] Comment on above: BENIGN HYPERTENSION (Primary Dx); Hyperlipidemia, mixed; Migraine without aura and without status migrainosus, not intractable; Mild persistent asthma without complication; Chronic allergic rhinitis; New onset type 2 diabetes mellitus (HCC); Screening for colon cancer; Screening for prostate cancer Start: 11-22-2023 Refill Su Ham DIGITAL ARCHIVIST.INFORMATION SECURITY MANAGER Work Phone: [facility] Comment on above: Refill Request Start: 08-08-2023 Refill Avni Crum son DO Work Phone: [facility] Comment on above: Refill Request Start: 07-30-2023 Refill Avni Crum son DO Work Phone: [facility] Comment on above: Refill Request Start: 05-04-2023 Refill Avni Crum son DO Work Phone: [facility] Comment on above: Refill Request Start: 04-06-2023 Refill Tavon douglass DIGITAL ARCHIVISTJaniceINFORMATION SECURITY MANAGER Work Phone: [facility] Comment on above: Refill Request Start: 01-24-2023 End: 01-24-2023 Subsequent hospital visit by physician Mri Radio [facility] (I-Stat/1.5t) Work Phone: Radiology Start: 01-19-2023 Refill Su Ham DIGITAL ARCHIVIST.INFORMATION SECURITY MANAGER Work Phone: [facility] Comment on above: Refill Request Start: 01-08-2023 End: 01-08-2023 Patient encounter procedure Avni Salcedo DO Work Phone: [facility] Comment on above: Dyslipidemia (Primar y Dx); New onset type 2 diabetes mellitus (HCC); BENIGN HYPERTENSION; Gastroesophageal reflux disease without esophagitis; Chronic allergic rhinitis; Hyperlipidemia, mixed; Displacement of lumbar intervertebral disc without myelopathy; Cervical disc disorder at C4-C5 level with radiculopathy; Chronic neck pain Start: 11-16-2022 End: 11-16-2022 Emergency department patient visit Dr. Avni Salcedo Work Phone: [facility]-Emergency Department Start: 11-08-2022 ambulatory Sumulu Ham DIGITAL ARCHIVIST.INFORMATION SECURITY MANAGER [facility] Start: 11-08-2022 Follow-up encounter Su lopez DIGITAL ARCHIVIST.INFORMATION SECURITY MANAGER Work Phone: [facility] Comment on above: Follow up Start: 11-06-2022 Telephone encounter Su lopez DIGITAL ARCHIVIST.INFORMATION SECURITY MANAGER Work Phone: [facility] Comment on above: Results Start: 11-02-2022 End: 11-02-[address] Avni Salcedo Work Phone: [facility] Start: 11-01-2022 End: 11-01-2022 Subsequent hospital visit by physician Xr [facility] [place] Work Phone: Radiology Comment on above: Acute pain of right shoulder [M25.511] Start: 11-01-2022 End: 11-01-2022 Patient encounter procedure Su Ham DIGITAL ARCHIVIST.INFORMATION SECURITY MANAGER Work Phone: [facility] [place] Comment on above: New onset type 2 margareth betes mellitus (HCC) (Primary Dx); Hyperlipidemia, mixed; Acute pain of right shoulder Start: 11-01-2022 End: 11-01-2022 Nursing evaluation of patient and report Claude Amanda RN Work Phone: Endocrinology Comment on above: IFG (impaired fastin g glucose) (Primary Dx) Start: 10-26-2022 Telephone encounter Avni smith DO Work Phone: [facility] Comment on above: Appointment Start: 10-18-2022 End: 10-18-2022 Subsequent hospital visit by physician Mri Radio [facility] (I-Stat/1.5t) Work Phone: Radiology Start: 10-17-2022 ambulatory Avni Harrington Skyla john DO Work Phone: [facility] Comment on above: echo Start: 10-17-2022 E-mail encounter fro m caregiver Avni Salcedo DO Work Phone: [facility] Start: 10-16-2022 Telephone encounter Su lopez DIGITAL ARCHIVIST.INFORMATION SECURITY MANAGER Work Phone: [facility] [place] Comment on above: Results Refill Request Start: 10-13-2022 End: 10-13-2022 ambulatory Pulm Lab [facility] Work Phone: [facility] Comment on above: Spirometry Start: 10-13-2022 End: 10-13-2022 Patient encounter procedure Pulm [facility] Work Phone: [facility] Start: 10-11-2022 End: 10-11-2022 Patient encounter procedure Avni Salcedo DO Work Phone: [facility] [place] Comment on above: Dyslipidemia (Primar y Dx); Vitamin D deficiency; IFG (impaired fasting glucose); LVH (left ventricular hypertrophy); Asthma, moderate persistent, well-controlled; Exposure to radon, initial encounter; Wheezing Start: 10-02-2022 Telephone encounter Su lopez DIGITAL ARCHIVIST.INFORMATION SECURITY MANAGER Work Phone: [facility] [place] Comment on above: Results Start: 09-29-2022 End: 09-29-2022 Subsequent hospital visit by physician [facility] (I-Stat) Work Phone: Cat Scan Comment on above: Wheezing [R06.2] Start: 09-22-2022 End: 09-22-2022 Patient encounter procedure Su Ham DIGITAL ARCHIVIST.INFORMATION SECURITY MANAGER Work Phone: [facility] [place] Comment on above: Bronchitis (Primary Dx); Asthma, moderate persistent, well-controlled; Chronic allergic rhinitis; Wheezing; Exposure to radon, initial encounter Start: 09-22-2022 Telephone encounter Su lopez DIGITAL ARCHIVIST.INFORMATION SECURITY MANAGER Work Phone: [facility] Comment on above: Results Start: 09-22-2022 End: 09-22-2022 Subsequent hospital visit by physician Xr [facility] Work Phone: Radiology Comment on above: Asthma, moderate per sistent, well-controlled [J45.40] Start: 09-18-2022 End: 09-18-2022 Office outpatient visit 25 minutes Elmer Rodriguez DIGITAL ARCHIVIST.INFORMATION SECURITY MANAGER Work Phone: [facility] Comment on above: Sinobronchitis (Prim rafiq Dx) Start: 08-08-2022 Refill Su barbosa DIGITAL ARCHIVIST.INFORMATION SECURITY MANAGER Work Phone: [facility] Comment on above: Refill Request Start: 08-04-2022 ambulatory No Pcp Rodrigo Rivas [email or web address] [place] Start: 07-20-2022 Refill Avni lopez DO Work Phone: [facility] Comment on above: Refill Request Start: 07-10-2022 End: 07-10-2022 Patient encounter procedure Avni Ahnrison DO Work Phone: [facility] Comment on above: Chronic neck pain (P rimary Dx); Cervical radiculopathy; Cervical disc disorder at C4-C5 level with radiculopathy; Attention deficit Start: 06-29-2022 End: 06-29-2022 [facility] Work Phone: [facility] Comment on above: Neck pain (Primary D x) Start: 06-26-2022 End: 06-26-2022 ambulatory Socorro [employer]undoBarnanaba CHEESE WEIGHER Work Phone: [facility] Comment on above: Neck pain (Primary D x) Start: 06-19-2022 End: 06-19-2022 ambulatory Yash [employer] PT Work Phone: [facility] Comment on above: Neck pain (Primary D x) Start: 06-12-2022 End: 06-12-2022 ambulatory Socorro [employer] CHEESE WEIGHER Work Phone: [facility] Comment on above: Neck pain (Primary D x) Start: 06-07-2022 End: 06-07-2022 ambulatory Socorro [employer] CHEESE WEIGHER Work Phone: [facility] Comment on above: Neck pain (Primary D x) Start: 06-07-2022 Telephone encounter Josue Shine DO Work Phone: Radiology Comment on above: image request Start: 06-02-2022 Telephone encounter Avni smith DO Work Phone: [facility] Comment on above: Results Start: 06-01-2022 End: 06-01-2022 Subsequent hospital visit by physician [facility] (I-Stat) Work Phone: Cat Scan Comment on above: Localized swelling, mass and lump, neck [R22.1] Start: 05-30-2022 End: 05-30-2022 [facility]ulatory [facility] Work Phone: [facility] Comment on above: Neck pain without in jury; Neck pain Start: 05-20-2022 Telephone encounter Avni smith DO Work Phone: [facility] Comment on above: Results Start: 05-19-2022 End: 05-19-2022 Subsequent hospital visit by physician Xr [facility] [place] Work Phone: Radiology Comment on above: Neck pain without in jury [M54.2] Start: 05-19-2022 End: 05-19-2022 Patient encounter procedure Avni Salcedo DO Work Phone: [facility] Comment on above: Localized swelling, mass and lump, neck (Primary Dx); Neck pain without injury; Localized enlarged lymph nodes Start: 04-20-2022 Refill Su barbosa DIGITAL ARCHIVIST.INFORMATION SECURITY MANAGER Work Phone: [facility] Comment on above: Refill Request Start: 04-18-2022 End: 04-18-2022 Office outpatient visit 25 minutes Tammy Llanes DIGITAL ARCHIVIST.INFORMATION SECURITY MANAGER Work Phone: [facility] Comment on above: Sinobronchitis (Prim rafiq Dx); Mild intermittent asthma with acute exacerbation; Wheezing Start: 04-18-2022 Refill Avni lopez DO Work Phone: [facility] Comment on above: Refill Request Start: 03-27-2022 Refill Marivel London [employer] PA-C Work Phone: Pulmonary Medicine Comment on above: Refill Request Start: 03-15-2022 ambulatory Marivel Troy [employer] PA-C Work Phone: Pulmonary Medicine Comment on above: I'm having a flare u p. Start: 02-23-2022 Refill Avni lopez DO Work Phone: [facility] Comment on above: Refill Request Start: 01-12-2022 Refill Kim Chavez DIGITAL ARCHIVIST.INFORMATION SECURITY MANAGER Work Phone: [facility] Comment on above: Refill Request Omeprazole Dr 40mg Start: 12-26-2021 ambulatory Marivel London [employer] PA-C Work Phone: Pulmonary Medicine Comment on above: Asthma problem.. Start: 12-12-2021 End: 12-12-2021 Patient encounter procedure Lita Ludwig PA-C Work Phone: [facility] Comment on above: Encounter for examin ation required by Department of Transportation (DOT) (Primary Dx) Start: 11-11-2021 End: 11-11-2021 Subsequent hospital visit by physician Xr [facility] [employer] Work Phone: Radiology Comment on above: Acute pain of left k nee [M25.562] Start: 10-26-2021 End: 10-26-2021 Subsequent hospital visit by physician Xr [facility] [employer] Work Phone: Radiology Comment on above: Cough [R05.9] Start: 07-28-2021 End: 07-28-2021 Subsequent hospital visit by physician Xr [facility] [employer] Work Phone: Radiology Comment on above: Foot pain, right [M7 9.671] Start: 09-23-2020 End: 09-23-2020 Subsequent hospital visit by physician Xr [facility] [employer] Work Phone: Radiology Comment on above: Suspected COVID-19 v irus infection [Z20.822] Start: 09-30-2018 Patient encounter procedure Suzi [facility] Start: 02-06-2018 Ambulatory [facility] Facility :[facility] Start: 08-09-2017 Ambulatory [facility] Procedures Date Procedure Procedure Detail [...] 11-16-2022 Plain x-ray of humerus Dr. Avni Powell on Work Phone: Start: 11-02-2022 X-ray of cervical spine Dr. Avni Crum son Work Phone: Start: 11-01-2022 Radex shoulder complete minimum 2 views Su Ham DIGITAL ARCHIVIST.INFORMATION SECURITY MANAGER Work Phone: Start: 10-18-2022 Mri spinal canal cervical w/o contrast matrl [facility] Provider Start: 10-13-2022 Brncdilat rspse spmtry pre&post-brncdilat admn Su Ham DIGITAL ARCHIVIST.INFORMATION SECURITY MANAGER Work Phone: Start: 09-29-2022 Ct thorax w/o contrast material Su Michelle canseco DIGITAL ARCHIVIST.INFORMATION SECURITY MANAGER Work Phone: Start: 09-22-2022 Radiologic exam chest 2 views Su lopez DIGITAL ARCHIVIST.INFORMATION SECURITY MANAGER Work Phone: Start: 06-01-2022 Ct soft tissue neck w/contrast material Avni Salcedo DO Work Phone: Start: 05-19-2022 Radex spine cervical 4 or 5 views Avni Salcedo DO Work Phone: Start: 12-12-2021 Urnls dip stick/tablet rgnt auto w/o microscopy M Huber Ludwig PA-C Work Phone: Start: 11-11-2021 Radiologic exam knee complete 4/more views Su Ham DIGITAL ARCHIVIST.INFORMATION SECURITY MANAGER Work Phone: Start: 10-26-2021 Radiologic exam chest 2 views Kamille Duenas ggs DIGITAL ARCHIVIST.INFORMATION SECURITY MANAGER Work Phone: Start: 07-28-2021 Radex foot complete minimum 3 views Susi joshua Menjivar PA-C Work Phone: Start: 09-23-2020 Radiologic exam chest 2 views Donal elliott DIGITAL ARCHIVIST.INFORMATION SECURITY MANAGER Work Phone: Start: 12-27-2016 Colonoscopy NA Oziel SANTLILAN Work Phone: Plan of Treatment Date Care Activity Detail Author Start: 05-10-2031 Urine microalbumin profile [facility] Start: 04-16-2029 Screening for malignant neoplasm of colon [facility] Start: 10-13-2027 LIPID SCREEN LIPID SCREEN [facility] Start: 06-01-2026 LIPID SCREEN LIPID SCREEN [facility] Start: 01-12-2026 Annual PCP Team Chronic Disease Visit Annual PCP Team Chronic Disease Visit [facility] Start: 01-12-2026 Hepatitis B surface antibody level LDL Cholesterol [facility] Start: 01-08-2026 Annual PCP Team Chronic Disease Visit Annual PCP Team Chronic Disease Visit [facility] Start: 01-07-2026 BP Controlled (<130/80) BP Controlled (<130/80) [facility] Start: 10-13-2025 DIABETES SCREEN DIABETES SCREEN [facility] Start: 10-09-2025 BP Controlled (<130/80) BP Controlled (<130/80) [facility] Start: 10-06-2025 BP Controlled (<130/80) BP Controlled (<130/80) [facility] Start: 07-15-2025 End: 07-15-2025 Patient encounter procedure 07/15/2025 2:20 PM EST Office Visit [facility] [address] [place], [place] [id number] Avni Salcedo, [address] [place], [place] [id number] physical [facility] Comment on above: physical Start: 07-15-2025 Hemoglobin A1c measurement HbA1C [facility] Start: 07-06-2025 End: 07-06-2025 Patient encounter procedure Cat Scan Comment on above: Tobacco abuse [Z72.0]; Encounter for scr eening for lung cancer [Z12.2] 9 month LDCT 9 month LCS Start: 06-23-2025 Screening for malignant neoplasm of lung Lung Cancer Screening [facility] Start: 06-18-2025 Hepatitis B surface antibody level LDL Cholesterol [facility] Start: 06-16-2025 Annual PCP Team Chronic Disease Visit Annual PCP Team Chronic Disease Visit [facility] Start: 06-16-2025 BP Controlled (<130/80) BP Controlled (<130/80) [facility] Start: 06-16-2025 Covid-19 Vaccine ( season) Covid-19 Vaccine () [facility] Comment on above: Postponed from 05/11/2024 (Declined at t his time) Start: 06-16-2025 Diabetic foot examination Diabetic Foot Exam [facility] Start: 05-19-2025 DIABETES SCREEN DIABETES SCREEN [facility] Start: 05-11-2025 Influenza vaccination Influenza Vaccine (Season Ended) [facility] Start: 04-08-2025 End: 04-08-2025 Patient encounter procedure Pulmonary Medicine Comment on above: 3 month follow up Start: 03-09-2025 Influenza vaccination Influenza Vaccine (#1) [facility] Comment on above: Postponed from 05/11/2024 (Declined at t his time) Start: 03-05-2025 Annual PCP Team Chronic Disease Visit Annual PCP Team Chronic Disease Visit [facility] Start: 03-05-2025 BP Controlled (<130/80) BP Controlled (<130/80) [facility] Start: 02-09-2025 End: 02-09-2025 Patient encounter procedure 02/09/2025 2:00 PM EDT Appointment Radiology [address] [place] [address] Splenomegaly, not elsewhere classified [R16.1] Radiology Comment on above: Splenomegaly, not elsewhere classified [ R16.1] Start: 01-31-2025 Hepatitis B surface antibody level LDL Cholesterol [facility] Start: 01-30-2025 End: 01-30-2025 Patient encounter procedure 01/30/2025 8:30 PM EDT Office Visit [place] [id number] [facility] [address] [address] Daytime sleepiness [R40.0] [facility] Comment on above: Daytime sleepiness [R40.0] Start: 01-30-2025 Annual PCP Team Chronic Disease Visit Annual PCP Team Chronic Disease Visit [facility] Start: 01-30-2025 Covid-19 Vaccine ( season) Covid-19 Vaccine ( season) [facility] Comment on above: Postponed from 05/11/2023 (Declined at t his time) Start: 01-30-2025 Pneumococcal vaccination Pneumococcal Vaccine (1 of 2 - PCV) [facility] Comment on above: Postponed from 1979 (Declined at t his time) Start: 01-30-2025 Shingrix Vaccine (1 of 2) Shingrix Vaccine (1 of 2) [facility] Comment on above: Postponed from 2023 (Declined at t his time) Start: 01-12-2025 End: 04-13-2025 Amylase [Enzymatic activity/volume] in Serum or Plasma [facility] Comment on above: Expected: 01/12/2025, Expires: Start: 01-12-2025 End: 04-13-2025 Hepatic function 2000 panel - Serum or Plasma [facility] Work Phone: Comment on above: Expected: 01/12/2025, Expires: Start: 01-12-2025 End: 04-13-2025 Lipase [Enzymatic activity/volume] in Serum or Plasma [facility] Comment on above: Expected: 01/12/2025, Expires: 5 Start: 01-08-2025 End: 01-08-2025 Patient encounter procedure 01/08/2025 2:20 PM EDT Office Visit [facility] [place] [address] [place] [address] Tavon Valencia APRN.[facility] [address] [place], [place] [phone] 6 mon follow up/meds [facility] Comment on above: 6 mon follow up/meds Start: 01-08-2025 End: 04-09-2025 Hemoglobin A1c in Blood HEMOGLOBIN A1C Lab Routine IFG (impaired fasting glucose) Expected: 01/08/2025, Expires: 04/09/2025 [facility] Comment on above: Expected: 01/08/2025, Expires: Start: 01-08-2025 End: 04-09-2025 Lipid 1996 panel - Serum or Plasma LIPID PANEL, FASTING Lab Routine Hyperlipidemia, mixed Expected: 01/08/2025, Expires: 04/09/2025 [facility] Work Phone: Comment on above: Expected: 01/08/2025, Expires: Start: 01-07-2025 End: 01-07-2025 Patient encounter procedure 01/07/2025 3:00 PM EDT Office Visit Pulmonary Medicine [address] [place] [address] Yoon Magana APRN.INFORMATION SECURITY MANAGER [address] [facility] [address] [place] [address] 3 MTH F/U ASTHMA Pulmonary Medicine Comment on above: 3 MTH F/U ASTHMA Start: 01-07-2025 End: 01-07-2025 ambulatory [facility] Comment on above: PFT Start: 12-17-2024 End: 12-17-2024 Patient encounter procedure 12/17/2024 3:00 PM EDT Office Visit [facility] [address] [place] [address] Catalina Almazan APRN.INFORMATION SECURITY MANAGER [address] [place] [address] 6 mon follow up [facility] Comment on above: 6 mon follow up Start: 10-09-2024 End: 10-09-2024 Patient encounter procedure 10/09/2024 2:45 PM EST Office Visit Pulmonary Medicine [address] [place] [address] Shayla Rogers MD [address] [place] [address] f/up dr. Clifford Taylor Pulmonary Medicine Comment on above: f/up dr. Clifford Taylor Start: 10-06-2024 End: 10-06-2024 Patient encounter procedure 10/06/2024 1:00 PM EST Office Visit Pulmonary Medicine [address] [place], [place] [phone] Elmira Farrar APRN.INFORMATION SECURITY MANAGER [address] [place] [address] To talk about my last couple of cat scans. Pulmonary Medicine Comment on above: To talk about my last couple of cat scan s. Start: 08-03-2024 Hemoglobin A1c measurement HbA1C [facility] Start: 06-26-2024 End: 06-26-2024 Patient encounter procedure 06/26/2024 3:30 PM EDT Office Visit Cardiology [address] [place] [address] LVH (left ventricular hypertrophy) [I51.7] Cardiology Comment on above: LVH (left ventricular hypertrophy) [I51. 7] Start: 06-26-2024 End: 09-25-2024 Comprehensive metabolic 2000 panel - Serum or Plasma COMPREHENSIVE METABOLIC PANEL Lab Routine Elevated LFTs Hypokalemia Expected: 06/26/2024, Expires: 09/25/2024 [facility] Work Phone: Comment on above: Expected: 06/26/2024, Expires: Start: 06-23-2024 End: 06-23-2024 Patient encounter procedure 06/23/2024 3:20 PM EDT Appointment Cat Scan [address] [place], [place] [id number] Pulmonary nodule [R91.1] Cat Scan Comment on above: Pulmonary nodule [R91.1] Start: 06-16-2024 End: 06-16-2024 Patient encounter procedure 06/16/2024 3:20 PM EDT Office Visit [facility] [place] [address] [place], [place] [phone] Avni Salcedo DO [address] [facility] [place] [address] 3-4 months follow [facility] Comment on above: 3-4 months follow Start: 06-16-2024 End: 09-15-2024 25-hydroxyvitamin D3 [Mass/volume] in Serum or Plasma VITAMIN D 25 HYDROXY Lab Routine Vitamin D deficiency Fatigue, unspecified type Expected: 06/16/2024, Expires: 09/15/2024 [facility] Comment on above: Expected: 06/16/2024, Expires: Start: 06-16-2024 End: 09-15-2024 Cobalamin (Vitamin B12) [Mass/volume] in Serum or Plasma VITAMIN B12 Lab Routine IFG (impaired fasting glucose) Fatigue, unspecified type Expected: 06/16/2024, Expires: 09/15/2024 [facility] Comment on above: Expected: 06/16/2024, Expires: Start: 06-16-2024 End: 09-15-2024 Comprehensive metabolic 2000 panel - Serum or Plasma COMPREHENSIVE METABOLIC PANEL Lab Routine Hyperlipidemia, mixed Expected: 06/16/2024, Expires: 09/15/2024 [facility] Comment on above: Expected: 06/16/2024, Expires: Start: 06-16-2024 End: 09-15-2024 Methylmalonate [Moles/volume] in Serum or Plasma METHYLMALONIC ACID Lab Routine Vitamin B12 deficiency Expected: 06/16/2024, Expires: 09/15/2024 [facility] Comment on above: Expected: 06/16/2024, Expires: Start: 06-16-2024 End: 09-15-2024 Thyrotropin [Units/volume] in Serum or Plasma THYROID STIMULATING HORMONE Lab Routine Hyperlipidemia, mixed IFG (impaired fasting glucose) Fatigue, unspecified type Expected: 06/16/2024, Expires: 09/15/2024 [facility] Comment on above: Expected: 06/16/2024, Expires: Start: 06-16-2024 End: 09-15-2024 Thyroxine (T4) free [Mass/volume] in Serum or Plasma T4 FREE/FREE THYROXINE Lab Routine Hyperlipidemia, mixed IFG (impaired fasting glucose) Fatigue, unspecified type Expected: 06/16/2024, Expires: 09/15/2024 [facility] Comment on above: Expected: 06/16/2024, Expires: 5 Start: 06-01-2024 DIABETES SCREEN DIABETES SCREEN [facility] Start: 05-11-2024 Covid-19 Vaccine () Covid-19 Vaccine () [facility] Start: 05-11-2024 Influenza vaccination [facility] Start: 05-10-2024 End: 08-09-2024 Lipid 1996 panel - Serum or Plasma LIPID PANEL BASIC Lab Routine Hyperlipidemia, mixed Expected: 05/10/2024, Expires: 08/09/2024 [facility] Work Phone: Comment on above: Expected: 05/10/2024, Expires: Start: 04-16-2024 End: 04-16-2024 Patient encounter procedure 04/16/2024 9:45 AM EDT Appointment [facility] Endoscopy [address] [place] [address] John Chowdhury MD [address] [address] [facility] [facility] Comment on above: colon/egd Start: 04-03-2024 Hepatitis B surface antibody level LDL CHOLESTEROL [facility] Start: 03-05-2024 End: 03-05-2024 Patient encounter procedure 03/05/2024 1:20 PM EDT Office Visit Family Medicine H[facility]ctor [address] [place] [address] Su Ham APRN.INFORMATION SECURITY MANAGER [address] [place], [place] [id number] 2-3 week b/p recheck [facility] Comment on above: 2-3 week b/p recheck Start: 2024 End: 06-01-2024 Comprehensive metabolic 2000 panel - Serum or Plasma COMPREHENSIVE METABOLIC PANEL Lab Routine Hyperlipidemia, mixed Essential hypertension, benign Expected: 2024, Expires: 06/01/2024 [facility] Comment on above: Expected: 2024, Expires: Start: 02-08-2024 End: 02-08-2024 Patient encounter procedure 02/08/2024 11:30 AM EDT Office Visit General Surgery [address] [place] [address] John Chowdhury MD [address] [address] Z12.11 (ICD-10-CM) - Screening for colon cancer General Surgery Comment on above: Z12.11 (ICD-10-CM) - Screening for colon cancer Start: 01-31-2024 End: 05-01-2024 CBC W Auto Differential panel - Blood COMPLETE BLOOD COUNT AND DIFFERENTIAL Lab Routine Hyperlipidemia, mixed Essential hypertension, benign Expected: 01/31/2024, Expires: 05/01/2024 [facility] Comment on above: Expected: 01/31/2024, Expires: Start: 01-31-2024 End: 05-01-2024 Hemoglobin A1c in Blood HEMOGLOBIN A1C Lab Routine New onset type 2 diabetes mellitus (HCC) Expected: 01/31/2024, Expires: 05/01/2024 [facility] Work Phone: Comment on above: Expected: 01/31/2024, Expires: Start: 01-31-2024 End: 05-01-2024 Lipid 1996 panel - Serum or Plasma LIPID PANEL BASIC Lab Routine Hyperlipidemia, mixed Expected: 01/31/2024, Expires: 05/01/2024 [facility] Comment on above: Expected: 01/31/2024, Expires: Start: 01-31-2024 End: 05-01-2024 PSA/PROSTATE SPECIFIC ANTIGEN SCREENING PSA/PROSTATE SPECIFIC ANTIGEN SCREENING Lab Routine Screening for prostate cancer Expected: 01/31/2024, Expires: 05/01/2024 [facility] Comment on above: Expected: 01/31/2024, Expires: Start: 01-09-2024 3 comp foot exam completed DIABETIC FOOT EXAM [facility] Start: 01-09-2024 ANNUAL PCP TEAM CHRONIC DISEASE VISIT ANNUAL PCP TEAM CHRONIC DISEASE VISIT [facility] Start: 01-09-2024 Diabetic foot examination Diabetic Foot Exam [facility] Start: 11-01-2023 ANNUAL PCP TEAM CHRONIC DISEASE VISIT ANNUAL PCP TEAM CHRONIC DISEASE VISIT [facility] Start: 11-01-2023 BP CONTROLLED (<130/80) BP CONTROLLED (<130/80) [facility] in Start: 10-13-2023 Hepatitis B surface antibody level LDL CHOLESTEROL [facility] Start: 10-11-2023 ANNUAL PCP TEAM CHRONIC DISEASE VISIT ANNUAL PCP TEAM CHRONIC DISEASE VISIT [facility] Start: 10-11-2023 BP CONTROLLED (<130/80) BP CONTROLLED (<130/80) [facility] Start: 10-04-2023 Hemoglobin A1c measurement HbA1C [facility] Start: 10-04-2023 Hemoglobin A1c/Hemoglobin.total in Blood HBA1C [facility] Start: 09-29-2023 Screening for malignant neoplasm of lung Lung Cancer Screening [facility] Start: 09-22-2023 ANNUAL PCP TEAM CHRONIC DISEASE VISIT ANNUAL PCP TEAM CHRONIC DISEASE VISIT [facility] Start: 09-22-2023 COVID-19 VACCINE (3 - Booster for Pfizer series) COVID-19 VACCINE (3 - Booster for Pfizer series) [facility] Comment on above: Postponed from 07/18/2021 (Declined at t his time) Start: 09-22-2023 COVID-19 VACCINE (3 - Pfizer series) COVID-19 VACCINE (3 - Pfizer series) [facility] Comment on above: Postponed from 07/18/2021 (Declined at t his time) Start: 09-22-2023 HEPATITIS B (1 of 3 - 3-dose series) HEPATITIS B (1 of 3 - 3-dose series) [facility] Comment on above: Postponed from 1973 (Declined at t his time) Start: 09-22-2023 Hepatitis B Vaccine (1 of 3 - 3-dose series) Hepatitis B Vaccine (1 of 3 - 3-dose series) [facility] Comment on above: Postponed from 1973 (Declined at t his time) Start: 09-18-2023 BP CONTROLLED (<130/80) BP CONTROLLED (<130/80) [facility] Start: 07-10-2023 ANNUAL PCP TEAM CHRONIC DISEASE VISIT ANNUAL PCP TEAM CHRONIC DISEASE VISIT [facility] Start: 05-19-2023 ANNUAL PCP TEAM CHRONIC DISEASE VISIT ANNUAL PCP TEAM CHRONIC DISEASE VISIT [facility] Start: 05-11-2023 Covid-19 Vaccine ( season) Covid-19 Vaccine ( season) [facility] Start: 05-11-2023 Influenza vaccination [facility] Start: 04-12-2023 Hemoglobin A1c/Hemoglobin.total in Blood HBA1C [facility] Start: 03-09-2023 Influenza vaccination INFLUENZA (#1) [facility] Comment on above: Postponed from 05/11/2022 (Declined at t his time) Start: 2023 SHINGRIX VACCINE (1 of 2) SHINGRIX VACCINE (1 of 2) [facility] Start: 02-08-2023 End: 04-10-2023 ALBUMIN/CREAT RATIO RND UR ALBUMIN/CREAT RATIO RND UR Lab Routine New onset type 2 diabetes mellitus (HCC) Expected: 02/08/2023, Expires: 04/10/2023 [facility] Work Phone: Comment on above: Expected: 02/08/2023, Expires: 3 Start: 02-08-2023 End: 04-10-2023 Comprehensive metabolic 2000 panel - Serum or Plasma COMP METABOLIC PANEL Lab Routine New onset type 2 diabetes mellitus (HCC) Expected: 02/08/2023, Expires: 04/10/2023 [facility] Work Phone: Comment on above: Expected: 02/08/2023, Expires: 3 Start: 02-08-2023 End: 04-10-2023 Hemoglobin A1c in Blood HGB A1C Lab Routine New onset type 2 diabetes mellitus (HCC) Expected: 02/08/2023, Expires: 04/10/2023 [facility] Work Phone: Comment on above: Expected: 02/08/2023, Expires: 3 Start: 02-08-2023 End: 04-10-2023 Lipid 1996 panel - Serum or Plasma LIPID PANEL BASIC Lab Routine Dyslipidemia Expected: 02/08/2023, Expires: 04/10/2023 [facility] Work Phone: Comment on above: Expected: 02/08/2023, Expires: 3 Start: 01-29-2023 End: 03-31-2023 Hemoglobin A1c in Blood HGB A1C Lab Routine New onset type 2 diabetes mellitus (HCC) Expected: 01/29/2023, Expires: 03/31/2023 [facility] Work Phone: Comment on above: Expected: 01/29/2023, Expires: 3 Start: 12-12-2022 ANNUAL PCP TEAM CHRONIC DISEASE VISIT ANNUAL PCP TEAM CHRONIC DISEASE VISIT [facility] Start: 12-12-2022 BP CONTROLLED (<130/80) BP CONTROLLED (<130/80) [facility] Start: 11-11-2022 ADULT PREVNAR ADULT [facility] Comment on above: Postponed from 1992 (Declined at t his time) Start: 11-11-2022 ADULT PREVNAR-13 ADULT PREVNAR-13 [facility] Comment on above: Postponed from 1992 (Declined at t his time) Start: 11-11-2022 PNEUMOCOCCAL (1 - PCV) PNEUMOCOCCAL (1 - PCV) [facility] Comment on above: Postponed from 1979 (Declined at t his time) Start: 11-01-2022 End: 01-01-2023 ALBUMIN/CREAT RATIO RND UR ALBUMIN/CREAT RATIO RND UR Lab Routine New onset type 2 diabetes mellitus (HCC) Expected: 11/01/2022, Expires: 01/01/2023 [facility] Work Phone: Comment on above: Expected: 11/01/2022, Expires: 3 Start: 10-11-2022 End: 12-11-2022 25-hydroxyvitamin D3 [Mass/volume] in Serum or Plasma VITAMIN D 25 HYDROXY Lab Routine Vitamin D deficiency Expected: 10/11/2022, Expires: 12/11/2022 [facility] Work Phone: Comment on above: Expected: 10/11/2022, Expires: 3 Start: 10-11-2022 End: 12-11-2022 Cobalamin (Vitamin B12) [Mass/volume] in Serum or Plasma VITAMIN B12 BLOOD Lab Routine IFG (impaired fasting glucose) Expected: 10/11/2022, Expires: 12/11/2022 [facility] Work Phone: Comment on above: Expected: 10/11/2022, Expires: 3 Start: 10-11-2022 End: 12-11-2022 Comprehensive metabolic 2000 panel - Serum or Plasma COMP METABOLIC PANEL Lab Routine IFG (impaired fasting glucose) Expected: 10/11/2022, Expires: 12/11/2022 [facility] Work Phone: Comment on above: Expected: 10/11/2022, Expires: 3 Start: 10-11-2022 End: 12-11-2022 Hemoglobin A1c in Blood HGB A1C Lab Routine IFG (impaired fasting glucose) Expected: 10/11/2022, Expires: 12/11/2022 [facility] Work Phone: Comment on above: Expected: 10/11/2022, Expires: 3 Start: 10-11-2022 End: 12-11-2022 Lipid 1996 panel - Serum or Plasma LIPID PANEL BASIC Lab Routine Dyslipidemia Expected: 10/11/2022, Expires: 12/11/2022 [facility] Work Phone: Comment on above: Expected: 10/11/2022, Expires: 3 Start: 08-30-2022 BP CONTROLLED (<130/80) BP CONTROLLED (<130/80) [facility] Start: 06-03-2022 End: 08-03-2022 Hepatic function 2000 panel - Serum or Plasma HEPATIC FUNCTION PNL Lab Routine Elevated alanine aminotransferase (ALT) level Expected: 06/03/2022, Expires: 08/03/2022 [facility] Work Phone: Comment on above: Expected: 06/03/2022, Expires: 2 Start: 05-19-2022 End: 07-19-2022 C reactive protein [Mass/volume] in Serum or Plasma [facility] Work Phone: Comment on above: Expected: 05/19/2022, Expires: 2 Start: 05-19-2022 End: 07-19-2022 CBC W Auto Differential panel - Blood [facility] Work Phone: Comment on above: Expected: 05/19/2022, Expires: 2 Start: 05-19-2022 End: 07-19-2022 Comprehensive metabolic 2000 panel - Serum or Plasma [facility] Work Phone: Comment on above: Expected: 05/19/2022, Expires: 2 Start: 05-19-2022 End: 07-19-2022 Thyrotropin [Units/volume] in Serum or Plasma [facility] Work Phone: Comment on above: Expected: 05/19/2022, Expires: 2 Start: 05-11-2022 Influenza vaccination [facility] Start: 12-27-2021 Colonoscopy COLONOSCOPY [facility] Start: 12-27-2021 COLORECTAL CANCER SCREENING COLORECTAL CANCER SCREENING [facility] Start: 12-27-2021 Screening for malignant neoplasm of colon [facility] Start: 10-23-2021 COVID-19 VACCINE (3 - Booster for Pfizer series) COVID-19 VACCINE (3 - Booster for Pfizer series) [facility] Start: 07-18-2021 COVID-19 VACCINE (3 - Booster for Pfizer series) COVID-19 VACCINE (3 - Booster for Pfizer series) [facility] Start: 2018 COLOGUARD (FIT-DNA) COLOGUARD (FIT-DNA) [facility] Start: [address] COLONOGRAPHY [facility] Start: 2018 FECAL OCCULT BLOOD FECAL OCCULT BLOOD [facility] Start: 2018 Screening for malignant neoplasm of colon [facility] Start: 2018 SIGMOIDOSCOPY SIGMOIDOSCOPY [facility] Start: 09-23-2006 Hepatitis B screening URINE ALBUMIN:CREATININE RATIO [facility] Start: 1992 Hepatitis B Vaccine (1 of + 3-dose series) Hepatitis B Vaccine (1 of 3 - 19+ 3-dose series) [facility] Start: 1992 Pneumococcal Vaccine: 50+ (1 of 2 - PCV) Pneumococcal Vaccine: 50+ (1 of 2 - PCV) [facility] Start: 1992 TWO PNEUMOVAX 5 YEARS APART PRIOR TO AGE 65 (#1) TWO PNEUMOVAX 5 YEARS APART PRIOR TO AGE 65 (#1) [facility] Start: 1983 Glaucoma screening Dilated Retinal Exam [facility] Start: 1983 Hepatitis C antibody, confirmatory test DILATED RETINAL EXAM [facility] Start: 1979 PNEUMOCOCCAL (1 - PCV) PNEUMOCOCCAL (1 - PCV) [facility] ic Start: 1979 Pneumococcal vaccination [facility] c Start: 1973 HEPATITIS B (1 of 3 - 3-dose series) HEPATITIS B (1 of 3 - 3-dose series) [facility] 25-hydroxyvitamin D3 [Mass/volume] in Serum or Plasma VITAMIN D 25 HYDROXY Lab Routine Vitamin D deficiency Fatigue, unspecified type 06/18/2024 4:41 PM EDT [facility] Cobalamin (Vitamin B 12) [Mass/volume] in Serum or Plasma VITAMIN B12 Lab Routine IFG (impaired fasting glucose) Fatigue, unspecified type 06/18/2024 4:41 PM EDT [facility] Comprehensive metabo lic 2000 panel - Serum or Plasma COMPREHENSIVE METABOLIC PANEL Lab Routine Hyperlipidemia, mixed 06/18/2024 4:41 PM EDT [facility] End: 11-05-2025 CT Chest for screening WO contrast CT LUNG SCREEN WO IVCON Radiology Routine Tobacco abuse Encounter for screening for lung cancer 1 Occurrences starting 10/06/2024 until 11/05/2025 [facility] Work Phone: Comment on above: 1 Occurrences starting 10/06/2024 until 11/05/2025 End: 07-16-2025 CT Chest WO contrast CT CHEST WO IVCON Radiology Routine Pulmonary nodule 1 Occurrences starting 06/16/2024 until 07/16/2025 [facility] Comment on above: 1 Occurrences starting 06/16/2024 until 07/16/2025 CT Chest WO contrast CT CHEST WO IVCON Radiology Routine Pulmonary nodule 06/23/2024 3:30 PM EDT [facility] Work Phone: End: 06-18-2023 Ct soft tissue neck w/contrast material CT NECK SOFT TISSUE W IVCON Radiology Routine Localized swelling, mass and lump, neck Neck pain without injury Localized enlarged lymph nodes 1 Occurrences starting 05/19/2022 until 06/18/2023 [facility] Work Phone: Comment on above: 1 Occurrences starting 05/19/2022 until 06/18/2023 End: 10-22-2023 Ct thorax w/o contrast material CT CHEST WO IVCON Radiology Routine Wheezing Bronchitis 1 Occurrences starting 09/22/2022 until 10/22/2023 [facility] Work Phone: Comment on above: 1 Occurrences starting 09/22/2022 until 10/22/2023 End: 10-11-2023 Echocardiography ECHO Cardiology Routine LVH (left ventricular hypertrophy) 1 Occurrences starting 10/11/2022 until 10/11/2023 [facility] Work Phone: Comment on above: 1 Occurrences starting 10/11/2022 until 10/11/2023 End: 06-16-2025 Echocardiography ECHO Cardiology Routine LVH (left ventricular hypertrophy) 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 1 Occurrences starting 06/16/2024 until 06/16/2025 [facility] Comment on above: 1 Occurrences starting 06/16/2024 until 06/16/2025 End: 02-07-2025 EGD DIAGNOSTIC EGD DIAGNOSTIC Endoscopy Routine Screening for colon cancer Hyperlipidemia, mixed Gastroesophageal reflux disease, unspecified whether esophagitis present Irritable bowel syndrome with constipation Diarrhea, unspecified type Personal history of colonic polyps 1 Occurrences starting 02/08/2024 until 02/07/2025 [facility] Comment on above: 1 Occurrences starting 02/08/2024 until 02/07/2025 End: 11-01-2023 LUNG VOLUMES LUNG VOLUMES PFT Routine Bronchitis Asthma, moderate persistent, well-controlled Sarcoidosis of lung (HCC) 1 Occurrences starting 10/02/2022 until 11/01/2023 [facility] Work Phone: Comment on above: 1 Occurrences starting 10/02/2022 until 11/01/2023 Methylmalonate [Moles/volume] in Serum or Plasma METHYLMALONIC ACID Lab Routine Vitamin B12 deficiency 06/18/2024 4:41 PM EDT [facility] End: 02-11-2026 MR Spleen WO contrast MRI SPLEEN WO IVCON Radiology Routine Splenomegaly, not elsewhere classified Left sided abdominal pain 1 Occurrences starting 01/12/2025 until 02/11/2026 [facility] Work Phone: Comment on above: 1 Occurrences starting 01/12/2025 until 02/11/2026 End: 11-08-2025 NITRIC OXIDE, EXHALED NITRIC OXIDE, EXHALED PFT Routine Asthma, moderate persistent, poorly-controlled 1 Occurrences starting 10/09/2024 until 11/08/2025 [facility] Work Phone: Comment on above: 1 Occurrences starting 10/09/2024 until 11/08/2025 End: 02-06-2026 NITRIC OXIDE, EXHALED NITRIC OXIDE, EXHALED PFT Routine Asthma, moderate persistent, poorly-controlled (HCC) 1 Occurrences starting 01/07/2025 until 02/06/2026 [facility] Comment on above: 1 Occurrences starting 01/07/2025 until 02/06/2026 Patient Education ED Muscle Stra in, Extremity [facility] Work Phone: Patient referral [facility] Work Phone: End: 01-07-2026 Polysomnogram POLYSOMNOGRAM (PSG) Procedures Routine Daytime sleepiness 1 Occurrences starting 01/07/2025 until 01/07/2026 [facility] Work Phone: Comment on above: 1 Occurrences starting 01/07/2025 until 01/07/2026 End: 02-07-2025 Screening colonoscopy COLONOSCOPY SCREENING Endoscopy Routine Screening for colon cancer Hyperlipidemia, mixed Gastroesophageal reflux disease, unspecified whether esophagitis present Irritable bowel syndrome with constipation Diarrhea, unspecified type Personal history of colonic polyps 1 Occurrences starting 02/08/2024 until 02/07/2025 [facility] Work Phone: Comment on above: 1 Occurrences starting 02/08/2024 until 02/07/2025 End: 11-01-2023 SPIROMETRY - BASELINE AND POST DILATOR SPIROMETRY - BASELINE AND POST DILATOR PFT Routine Bronchitis Asthma, moderate persistent, well-controlled Sarcoidosis of lung (HCC) 1 Occurrences starting 10/02/2022 until 11/01/2023 [facility] Work Phone: Comment on above: 1 Occurrences starting 10/02/2022 until 11/01/2023 End: 11-08-2025 SPIROMETRY - BASELINE AND POST DILATOR SPIROMETRY - BASELINE AND POST DILATOR PFT Routine Asthma, moderate persistent, poorly-controlled 1 Occurrences starting 10/09/2024 until 11/08/2025 [facility] Comment on above: 1 Occurrences starting 10/09/2024 until 11/08/2025 SPIROMETRY - BASELIN E AND POST DILATOR SPIROMETRY - BASELINE AND POST DILATOR PFT Routine Asthma, moderate persistent, poorly-controlled (HCC) 01/07/2025 2:28 PM EDT [facility] Work Phone: SURGICAL PATHOLOGY [facility] Work Phone: Comment on above: Release Upon Ordering for 1 Occurrences starting 04/16/2024, 1 completed Thyrotropin [Units/volume] in Serum or Plasma THYROID STIMULATING HORMONE Lab Routine Hyperlipidemia, mixed IFG (impaired fasting glucose) Fatigue, unspecified type 06/18/2024 4:41 PM EDT [facility] Thyroxine (T4) free [Mass/volume] in Serum or Plasma T4 FREE/FREE THYROXINE Lab Routine Hyperlipidemia, mixed IFG (impaired fasting glucose) Fatigue, unspecified type 06/18/2024 4:41 PM EDT [facility] UA DIP B/O UA DIP B/O Lab R outine Encounter for examination required by Department of Transportation (DOT) Ordered: 12/12/2021 [facility] Work Phone: Comment on above: Ordered: 12/12/2021 XR Foot - left AP an d Lateral and oblique XR FOOT GENERAL 3V AP/LAT/OBL LEFT Radiology Routine Foot pain, left 06/16/2024 4:52 PM EDT [facility] End: 07-16-2025 XR Foot - left AP and Lateral and oblique XR FOOT GENERAL 3V AP/LAT/OBL LEFT Radiology Routine Foot pain, left 1 Occurrences starting 06/16/2024 until 07/16/2025 [facility] Comment on above: 1 Occurrences starting 06/16/2024 until 07/16/2025 XR Hand - left PA an d Lateral and Oblique XR HAND GENERAL 3V PA/LAT/OBL LEFT Radiology Routine Pain of left thumb 06/16/2024 4:52 PM EDT [facility] Work Phone: End: 07-16-2025 XR Hand - left PA and Lateral and Oblique XR HAND GENERAL 3V PA/LAT/OBL LEFT Radiology Routine Pain of left thumb 1 Occurrences starting 06/16/2024 until 07/16/2025 [facility] Work Phone: Comment on above: 1 Occurrences starting 06/16/2024 until 07/16/2025 End: 12-01-2023 XR SHOULDER GENERAL 3V OR MORE AP/TRUE AP/OTHER RIGHT XR SHOULDER GENERAL 3V OR MORE AP/TRUE AP/OTHER RIGHT Radiology Routine Acute pain of right shoulder 1 Occurrences starting 11/01/2022 until 12/01/2023 [facility] Work Phone: Comment on above: 1 Occurrences starting 11/01/2022 until 12/01/2023 XR SHOULDER GENERAL 3V OR MORE AP/TRUE AP/OTHER RIGHT XR SHOULDER GENERAL 3V OR MORE AP/TRUE AP/OTHER RIGHT Radiology Routine Acute pain of right shoulder 11/01/2022 3:32 PM EST [facility] Work Phone: [facility] Immunizations Immunization Date Immunization Notes Care Provider Iain sosa 05-10-2021 tetanus toxoid, redu berny diphtheria toxoid, and acellular pertussis vaccine, adsorbed ERIK Ludwig PA-C Work Phone: [facility] Work Phone: 05-02-2021 COVID-19 vaccine, ag e 12+ yr ([employer] - PURPLE TOP) ERIK Ludwig PA-C Work Phone: [facility] Work Phone: 03-21-2021 tetanus toxoid, redu berny diphtheria toxoid, and acellular pertussis vaccine, adsorbed Dr. Avni Salcedo Work Phone: [facility] 06-20-2017 influenza virus vaccine, unspecified formulation Mri (I-Stat/1.5t) Work Phone: [facility] Payers Date Payer Category Payer Self-pay [id number] 2024 Medicaid [id number] 2024 Private Health Insurance HU[employer]NA HU[employer]NA MEDICAID [facility] [id number] 2024-Present [address] [address] [place] [address] Medicaid [id number] 2024 Medicaid [id number] 2021 Unknown [employer] ID PRE SYDNI FULLY INSURED [id number] 2021-Present [phone] [address] [place] [address] PPO [id number] 2016 Unknown [id number] 2015 Unknown 1973 Unknown [id number] 1973 Unknown [id number] Unknown RAMYMALLY IND $[id number] plan [id number] Unknown [id number] Social History Date Type Detail Facility Start: 12-13-2016 End: 06-16-2024 Tobacco smoking status NHIS Ex-smoker [facility] Work Phone: Start: 04-03-1991 End: 11-15-2016 History of tobacco use Current smoker [facility] Work Phone: Start: 04-03-1991 End: 11-15-2016 History of tobacco use Cigarette Smoker [facility] Work Phone: Start: 12-13-2016 End: 08-15-2020 Cigarettes smoked current (pack per day) - Reported 1 [facility] Start: 12-13-2016 End: 06-16-2024 Tobacco use and exposure Smokeless tobacco non-user [facility] Work Phone: Start: 12-12-2021 End: 01-12-2025 Alcohol intake Current drinker of alcohol (finding) [facility] Start: 04-21-2020 End: 05-27-2020 History SDOH Alcohol Frequency 5 [facility] Start: 05-27-2020 End: 08-16-2020 History SDOH Alcohol Std Drinks 2 [facility] Start: 05-27-2020 End: 08-16-2020 History SDOH Alcohol Binge 3 [facility] Start: 04-03-2017 History SDOH Alcohol Comment OCCASIONALLY. [facility] Start: 10-29-2019 End: 05-27-2020 History SDOH Social Connections Phone 98 [facility] Start: 05-27-2020 History SDOH Physical Activity DPW 0 [facility] Start: 10-29-2019 End: 08-16-2020 History SDOH Food Worry 1 [facility] Start: 10-29-2019 Education 12 [facility] Start: 03-06-2019 End: 07-10-2022 Tobacco Comment Childhood home smoke free; at girlfriends 2 nights and smoker in home. [facility] Start: 1975 Sex Assigned At Male [facility] Start: 08-24-2020 End: 07-10-2022 Exposure to SARS-CoV-2 (event) Not sure [facility] Start: 11-16-2022 Tobacco smoking status NHIS Unknown if ever smoked [facility] Start: 11-30-2016 None [facility] Start: 11-30-2016 Spouse/ Significant Other [facility] Start: 11-30-2016 Non-smoker [facility] Start: 05-27-2020 End: 08-15-2020 Social connection and isolation panel [facility] Frequency of Communication with Friends and Family Not on file [facility] How often to you hav e a drink containing alcohol? 4 or more times a week [facility] How many standard dr inks containing alcohol do you have on a typical day? 3 or 4 [facility] How often do you hav e 6 or more drinks on 1 occasion? Monthly [facility] [facility] How hard is it for y ou to pay for the very basics like food, housing, medical care, and heating Somewhat hard [facility] Do you feel stress - tense, restless, nervous, or anxious, or unable to sleep at night because your mind is troubled all the time - these days [OSQ] Very much [facility] (I/We) worried dennise er (my/our) food would run out before (I/we) got money to buy more. Never true [facility] At any time in the p ast 12 months, were you homeless or living in snf [including now]? No [facility] Start: 11-08-2021 Gender identity Identifies as male gender (finding) [facility] Start: 12-31-2018 Sexual orientation Heterosexual (finding) [facility] How often do you hav e 6 or more drinks on 1 occasion? Monthly [facility] Functional Status Date Assessment Result Facility 03-15-2016 Are you deaf, or do you have serious difficulty hearing No 03/15/2016 3:48 PM EDT Matthew Horne III, MD No [facility] 03-15-2016 Are you blind, or do you have serious difficulty seeing, even when wearing glasses No 03/15/2016 3:48 PM OSWALDT Matthew Horne III, MD No [facility] 03-15-2016 Do you have serious difficulty walking or climbing stairs No 03/15/2016 3:48 PM OSWALDT Matthew Horne III, MD No [facility] 03-15-2016 Do you have difficul ty dressing or bathing No 03/15/2016 3:48 PM OSWALDT Matthew Horne III, MD No [facility] 03-15-2016 Because of a physica l, mental, or emotional condition, do you have difficulty doing errands alone such as visiting a physician's office or shopping No 03/15/2016 3:48 PM OSWALDT Matthew Honre III, MD No [facility] Mental Status Date Assessment Result Facility 03-15-2016 Because of a physica l, mental, or emotional condition, do you have serious difficulty concentrating, remembering, or making decisions No 03/15/2016 3:48 PM EDT Matthew Horne III, MD No [facility] Clinical Notes 08-20-2006 to 02-21-2025 Adrianna Meza PA - 02/21/2025 9:51 AM EDTTelephone Encounter - Shanna Andres MA - 02/05/2025 2:20 PM EDTTelephone Encounter - Shanna Andres MA - 02/05/2025 2:20 PM EDT Note Date & Type Note Facility 02-21-2025 History of Presen t illness Narrative 49-year-old male presents for chest pain, high heart rate, vertigo. Patient states he had chest pain a couple of days ago and some tingling in his hands. He has also had elevated heart rate on and off up to around 150 for the past few days. He has had vertigo. He has never had any of this in the past. He has a cough as well. At this time, patient being referred to emergency room for full workup. Patient and agreeable to plan. will drive him, declines EMS. No current chest pain. documented in this encounter [facility] 02-05-2025 Telephone encounter Note Patient informed and verbalized understanding. Shanna Andres MA [facility] 02-05-2025 Miscellaneous Notes Patient informed and [...] has been cancelled. documented in this encounter [facility] 02-04-2025 Telephone encounter Note Let patient know his insurance is denying the MRI. When I went back and looked at the x-ray report I seen that it mentioned that this was similar to CT from 2011 and MRI from 2018. Therefore I would not pursue any further imaging. Order has been cancelled. [facility] Work Phone: 01-14-2025 Telephone encounter Note Patient notified of results and provider's instructions. Patient verbalizes understanding. Yolanda Girard RN [facility] 01-14-2025 Miscellaneous Notes Patient notified of results and provider's instructions. Patient verbalizes understanding. Yolanda Girard RN Left message for patient to contact office. Arlyn De Leon MA Let patient know his liver functions, pancreactic functions and blood count were all ok. documented in this encounter [facility] 01-14-2025 Telephone encounter Note Left message for patient to contact office. Arlyn De Leon MA [facility] 01-13-2025 Telephone encounter Note Let patient know his liver functions, pancreactic functions and blood count were all ok. [facility] Work Phone: 01-13-2025 Telephone encounter Note Pt notified and states that he does not want to restart the medication at this time. Pt states he would like to try working on his diet first and see if he can get it down that way before restarting medications. Liz Bryant MA [facility] 01-13-2025 Miscellaneous Notes Pt notified and [...] to restarting medication? documented in this encounter [facility] 01-13-2025 Telephone encounter Note Please let patient know his hgba1c has increased from 5.8 to 7.1. It appears patient has been on metformin in the past and may need to go back on it due to sudden increase in BS. Is patient open to restarting medication? [facility] 01-13-2025 Telephone encounter Note Noted. [facility] 01-13-2025 Miscellaneous Notes Noted. Patient notified [...] spleen. Order placed. documented in this encounter [facility] 01-12-2025 Telephone encounter Note Patient notified and voiced understanding. He is approved for a MRI lumbar. He would like to do these together once approved. As he has issues being the MRI machine. He is going to let us know. Arlyn De Leon MA [facility] 01-12-2025 Telephone encounter Note Let patient know x-ray showed no acute findings. His spleen still appears enlarged. Want to get a MRI to re-look at the spleen. Order placed. [facility] 01-12-2025 History of Presen t illness [...] PATIENT PRESENTS WITH AN IMPLANTABLE OR ATTACHED TOOL GRINDER OPERATOR EXTERNAL: No RADIOLOGY DEPARTMENT: General X-ray: Exam(s) Completed: Rib X-Ray: Left PERIPHERAL IV DATA: Not applicable SIGNED BY: RT Evelio(Jeremías) January 12, 2025 3:09 PM documented in this encounter [facility] 01-12-2025 Note HNO ID: [id number] Author: PATTIE MEJIA RT(R) Service: Radiology Author [...] PATIENT PRESENTS WITH AN IMPLANTABLE OR ATTACHED TOOL GRINDER OPERATOR EXTERNAL: No RADIOLOGY DEPARTMENT: General X-ray: Exam(s) Completed: Rib X-Ray: Left PERIPHERAL IV DATA: Not applicable SIGNED BY: RT Evelio(Jeremías) January 12, 2025 3:09 PM [facility] 01-12-2025 Note HNO ID: [id number] Author: ELMER WHITE MD Service: ? Author Type: Physician [...] HYDROcodone-Ibuprofen (VICOPROFEN) 7 (more content not included)... [facility] 01-12-2025 History of Presen t illness [...] 1 capsule by mouth once daily. rizatriptan (MAXALT-CNC MANUFACTURING ENGINEER) 10 mg disintegrating tablet Take 1 tablet [...] 2) due on 01/30/2025 Covid-19 Vaccine( - 2023- season) due on 06/16/2025 Influenza Vaccine(Season Ended) [...] Elmer White MD documented in this encounter [facility] 01-08-2025 Note HNO ID: [id number] Author: TAVON VALENCIA APRN.INFORMATION SECURITY MANAGER Service: ? Author Type: Nurse Practitioner Type: [...] needed for wheezin (more content not included)... [facility] 01-08-2025 History of Presen t illness [...] 1 capsule by mouth once daily. rizatriptan (MAXALT-CNC MANUFACTURING ENGINEER) 10 mg disintegrating tablet Take 1 tablet [...] and medication therapy was changed. Tavon Valencia APRN.INFORMATION SECURITY MANAGER documented in this encounter [facility] 01-07-2025 Instructions Yoon Magana APRN.MELISSA - 01/07/2025 3:37 PM EDT Continue Budesonide [...] Plan on having a sleep study done. [phone] you can call to get the sleep study scheduled. documented in this encounter [facility] 01-07-2025 History of Presen t illness [...] asthma symptoms since COVID infection in 2020. [facility] 09/2024 with poorly controlled Asthma symptoms in [...] and bronchoalveolar lavage 04/2017. Type 2 diabetes ([facility]) 10/26/2022 Unspecified asthma(493.90) Allergies: Advair Diskus [Flut* [...] 10 mg disintegrating tablet Commonly known as: MAXALT-CNC MANUFACTURING ENGINEER Take 1 tablet by mouth as needed [...] nodules. No new or enlarging pulmonary nodules. Automotive Artist: ELMO Transcribe Date/Time: Jun 26 2024 7:33A Dictated by : MYNOR OSORIO MD This examination was interpreted and the report reviewed and electronically signed by: MYNOR OSORIO MD on Jun 26 2024 7:43AM EST Results-Findings * * *Final Report* * * DATE OF EXAM: Jun 23 2024 3:30PM [facility] - CT CHEST WO IVCON / [...] - continued cessation - recently enrolled in [facility] F/u 3 months Portions of this documentation were copied and pasted from previous office visit notes in order to provide a cohesive continuity of the history. The note has been reviewed and edited and updated as necessary. Yoon Magana APRN.MELISSA I spent a total of 42 minutes on the date of the service which included preparing to see the patient, [id number] patient care, completing clinical documentation, performing a medically appropriate examination, counseling and educating the patient/family/caregiver, ordering medications, tests, or procedures, and communicating results to the patient/family/caregiver. documented in this encounter [facility] 01-07-2025 Note HNO ID: [id number] Author: YOON MAGANA APRN.CNP Service: ? Author [...] history of colonic polyps Sarcoidosis of lung ([facility]) 04/2017 Transbronchial biopsy, transbronchial needle aspiration biopsy of nodes, and bronchoalveolar lavage 04/2017. Type 2 diabetes ([facility]) 10/26/2022 Unspecified asthma(493.90) Allergies: Advair Diskus [Flut* [...] mg daily bu (more content not included)... [facility] 01-07-2025 Note HNO ID: [id number] Author: AMOS MOORE RPFT Service: ? Author [...] DATE: January 07, 2025 TIME: 2:50 PM [facility] 01-07-2025 Procedure note Associated Ord er(s): [...] DATE: January 07, 2025 TIME: 2:50 PM [facility] 01-07-2025 Procedure note Associated Ord er(s): [...] TIME: 2:50 PM documented in this encounter [facility] 10-15-2024 Telephone encounter Note The patient [...] was sooner than that. Pt will contact [facility] pharmacy to see if that prescription is [...] Levy RN October 15, 2024 3:35 PM [facility] 10-15-2024 Miscellaneous Notes The patient has [...] was sooner than that. Pt will contact [facility] pharmacy to see if that prescription is [...] 2024 3:35 PM documented in this encounter [facility] 10-09-2024 History of Presen t illness Narrative Images from the original note were not included. . Respiratory [facility] Note Patient name: Jake Chairez PCP: Avni [...] DATE OF EXAM: Jun 23 2024 3:30PM [facility] - CT CHEST WO IVCON / [...] history of colonic polyps Sarcoidosis of lung ([facility]) 04/2017 Transbronchial biopsy, transbronchial needle aspiration biopsy of nodes, and bronchoalveolar lavage 04/2017. Type 2 diabetes ([facility]) 10/26/2022 Unspecified asthma(493.90) ALLERGIES Allergen Reactions Advair [...] 1 capsule by mouth once daily. rizatriptan (MAXALT-CNC MANUFACTURING ENGINEER) 10 mg disintegrating tablet Take 1 tablet [...] lung cancer screening Shayla Rogers MD [facility] documented in this encounter [facility] 10-09-2024 Note HNO ID: [id number] Author: SHAYLA ROGERS MD Service: ? Author Type: Physician Type: Progress Notes Filed: 10/09/2024 16:40 Note Text: . Respiratory [facility] Note Patient name: aJke Chairez PCP: Avni Salcedo DO CC: asthma [...] DATE OF EXAM: Jun 23 2024 3:30PM [facility] - CT CHEST WO IVCON / [...] Type 2 diabetes (HCC) 10/26/2022 Unspecified asthma(493.90) ALLERGIES Allergen Reactions Advair [...] daily at bedtime. (more content not included)... [facility] 10-06-2024 Telephone encounter Note Images from the original note were not included. Electronic PA rec'd and completed for budesonide. This was approved rior authorization approved Payer: [facility] Note from payer: Your PA request for [id number] was approved for 365 days. The PA# assigned is [id number]. Approval Details Authorization number: [id number] Authorized from October 06, 2024 to October 05, 2025 Electronic appeal: Not supported View History Pharmacy Benefits Open Encounter JAKE CHAIREZ - MEDICAID ([facility]) Covered: Retail, Mail Order Unknown: Specialty, Long-Term Care BIN: [id number] : 1975 Group ID: PCN: [id number] Legal sex: M Group name: Address: [address] [address] Medication Being Authorized budesonide (PULMICORT) 0.5 mg/2 mL nebulizer solution Use 2 mL via nebulizer once daily. Dispense: 2 mL Refills: 2 Start: 10/06/2024 Class: Normal Diagnoses: Asthma, moderate persistent, well-controlled; Chronic allergic rhinitis This order has been released to its destination. To be filled at: [facility] - [place], [place] Pharmacy notified. [facility] 10-06-2024 Miscellaneous Notes Images from the original note were not included. Electronic PA rec'd and completed for budesonide. This was approved rior authorization approved Payer: [facility] Note from payer: Your PA request for [id number] was approved for 365 days. The PA# assigned is [id number]. Approval Details Authorization number: [id number] Authorized from October 06, 2024 to October 05, 2025 Electronic appeal: Not supported View History Pharmacy Benefits Open Encounter JAKE CHAIREZ - MEDICAID ([facility]) Covered: Retail, Mail Order Unknown: Specialty, Long-Term Care BIN: [id number] : 1975 Group ID: PCN: [id number] Legal sex: M Group name: Address: [place] [id number] Medication Being Authorized budesonide (PULMICORT) 0.5 mg/2 mL nebulizer solution Use 2 mL via nebulizer once daily. Dispense: 2 mL Refills: 2 Start: 10/06/2024 Class: Normal Diagnoses: Asthma, moderate persistent, well-controlled; Chronic allergic rhinitis This order has been released to its destination. To be filled at: [facility] [address] [place], [place] Pharmacy notified. documented in this encounter [facility] 10-06-2024 Instructions Elmira Farrar APRN.INFORMATION SECURITY MANAGER - 10/06/2024 1:[address] Lung [...] to endocrinology. Others Lung Cancer Screening hotline: [phone] Lung Cancer Screening [phone] Billing Questions: or [email or web address] Specialist Providers: (Julia So PA-C; Camila Vincent CNP; Nuria Marley CNP, Ninfa Haines CNP; Kelsey Bautista CNP; Portia Andujar PA-C; Elmira Farrar CNP; Yoon Paige CNP; Anabel Aparicio CNP; Salome Reich CNP; Chandrika Lakhani PA-C; Cha Casper PA-C; Damaris Mendez CNP; Liz Macedo CNP; Agata Griffin CNP): [phone] documented in this encounter [facility] 10-06-2024 Note HNO ID: [id number] Author: ELMIRA FARRAR APRN.INFORMATION SECURITY MANAGER Service: ? Author Type: Nurse Practitioner Type: [...] 50% of waking hrs. Modified Medical Research [place] Dyspnea Scale (MMRC) I am too breathless [...] 1 capsule by mouth once daily. rizatriptan (MAXALT-CNC MANUFACTURING ENGINEER) 10 mg disintegrating tablet Take 1 (more content not included)... [facility] 10-06-2024 History of Presen t illness [...] 50% of waking hrs. Modified Medical Research [place] Dyspnea Scale (MMRC) I am too breathless [...] 1 capsule by mouth once daily. rizatriptan (MAXALT-CNC MANUFACTURING ENGINEER) 10 mg disintegrating tablet Take 1 tablet [...] COVID-19 original vaccine, age 12+ yr, monovalent (PFIZER-BIONTThe America's Card - PURPLE TOP) 05/02/2021 05/23/2021 tetanus diphtheria pertussis (Tdap) vaccine, age 7+ yr (ADACEL, BOOSTRIX) 05/10/2021 Colonoscopy: 04/16/2024 Mammogram: DATA REVIEW I have directly visualized the testing documented: Prior Imaging: Last CT/CTA Chest/Lungs CT CHEST WO IVCON Exam End: 06/23/2024 3:30 PM (Final result) Narrative: * * *Final Report* * * DATE OF EXAM: Jun 23 2024 3:30PM [facility] - CT CHEST WO IVCON / [...] nodules. No new or enlarging pulmonary nodules. Automotive Artist: PSCB Transcribe Date/Time: Jun 26 2024 7:33A [...] Testing: SPIROMETRY - BASELINE AND POST DILATOR ([id number]) - ordered on 10/13/22 No textual results for order. PHYSICAL EXAM: BP 124/78 Pulse 100 Resp 20 Wt 75.5 kg (166 lb 6.4 oz) SpO2 98% BMI 26.86 kg/m Deferred ASSESSMENT and RECOMMENDATIONS: 1. Screening for lung cancer: Six year risk for lung cancer: 0.45% Https://[employer] Pro/Englis h/result/male_[email or web address]_yes_unknown [email or web address] I have determined that the [...] 2024 1:28 PM documented in this encounter [facility] 10-06-2024 Telephone encounter Note Prescription Refill [...] Coles LPN October 06, 2024 1:22 PM [facility] 10-06-2024 Miscellaneous Notes Prescription Refill Information [...] 2024 1:22 PM documented in this encounter [facility] 09-01-2024 Telephone encounter Note Pt. informed via my Chart. [facility] 09-01-2024 Miscellaneous Notes Pt. informed via my Chart. Please inform patient that his iron labs and LFTs are improving, just still borderline Continue same regiment without changes to supplements Avni Salcedo DO documented in this encounter [facility] 09-01-2024 Telephone encounter Note Please inform patient that his iron labs and LFTs are improving, just still borderline Continue same regiment without changes to supplements Avni Salcedo DO [facility] 08-18-2024 Telephone encounter Note Images from the original note were not included. Completed PA through covermymeds and comes back not covered. Patient was notified and aware will need to pay out pocket or get otc cream and insert rectally. Shayla Nye MA [facility] 08-18-2024 Miscellaneous Notes Images from the original note were not included. Completed PA through covermymeds and comes back not covered. Patient was notified and aware will need to pay out pocket or get otc cream and insert rectally. Shayla Nye MA documented in this encounter [facility] 08-15-2024 Telephone encounter Note Patient notified labs are ordered. Medication request pending. Analia Lundy RN [facility] 08-15-2024 Miscellaneous Notes Patient notified labs [...] Analia Lundy RN documented in this encounter [facility] 08-15-2024 Telephone encounter Note Patient calls [...] Please review and advise, Analia Lundy RN [facility] 08-08-2024 Telephone encounter Note Noted. Thank you, Su Ham APRN.INFORMATION SECURITY MANAGER [facility] 08-08-2024 Miscellaneous Notes Noted. Thank you, Su Ham APRN.INFORMATION SECURITY MANAGER FYI See Managed by Q message. documented in this encounter [facility] 08-05-2024 Telephone encounter Note Prescription Refill [...] Rushing LPN August 05, 2024 11:56 AM [facility] 08-05-2024 Miscellaneous Notes Prescription Refill Information [...] 2024 11:56 AM documented in this encounter [facility] 08-05-2024 Telephone encounter Note IRVINGI See Managed by Q message. [facility] 07-25-2024 Telephone encounter Note Prescription Refill [...] Rushing LPN July 25, 2024 1:25 PM [facility] 07-25-2024 Miscellaneous Notes Prescription Refill Information [...] 2024 1:25 PM documented in this encounter [facility] 07-03-2024 Telephone encounter Note Pt called and is notified of providers results. Pt voices understanding. Agata Deluca RN [facility] 07-03-2024 Miscellaneous Notes Pt called and is notified of providers results. Pt voices understanding. Agata Deluca RN Please inform patient that overall his echo is stable, no concerns Avni Salcedo DO documented in this encounter [facility] 07-02-2024 Telephone encounter Note Please inform patient that overall his echo is stable, no concerns Avni Salcedo DO [facility] 06-26-2024 Telephone encounter Note Spoke with pt gave information provided. Pt voices understanding. [facility] 06-26-2024 Miscellaneous Notes Spoke with pt gave information provided. Pt voices understanding. Please inform patient that his recent labs show that his LFTs are slightly high and potassium is slightly low. Need to avoid alcohol as well as make sure taking in <3000 mg a day of tylenol. Recheck labs in 2-3 weeks Avni Salcedo DO documented in this encounter [facility] 06-26-2024 Telephone encounter Note Please inform patient that his recent labs show that his LFTs are slightly high and potassium is slightly low. Need to avoid alcohol as well as make sure taking in <3000 mg a day of tylenol. Recheck labs in 2-3 weeks Avni Salcedo DO [facility] 06-24-2024 Telephone encounter Note Patient active MyChart. Patient notified via Courtanet message. Liz Alvarenga MA [facility] 06-24-2024 Miscellaneous Notes Patient active MyChart. Patient notified via Courtanet message. Liz Alvarenga MA Please inform patient [...] Avni Salcedo DO documented in this encounter [facility] 06-24-2024 Telephone encounter Note Please inform [...] joint area of pain Avni Salcedo DO [facility] 06-23-2024 History of Presen t illness [...] PATIENT PRESENTS WITH AN IMPLANTABLE OR ATTACHED TOOL GRINDER OPERATOR EXTERNAL: No RADIOLOGY DEPARTMENT: CT; Exam(s) Completed: Chest PERIPHERAL IV DATA: Not applicable SIGNED BY: RT Rico(Jeremías) June 23, 2024 3:59 PM documented in this encounter [facility] 06-23-2024 Note HNO ID: [id number] Author: KESLEY MORTENSEN RT(Jeremías) Service: ? Author Type: Die Set Up Worker Type: Progress Notes Filed: 06/23/2024 15:59 Note [...] PATIENT PRESENTS WITH AN IMPLANTABLE OR ATTACHED TOOL GRINDER OPERATOR EXTERNAL: No RADIOLOGY DEPARTMENT: CT; Exam(s) Completed: Chest PERIPHERAL IV DATA: Not applicable SIGNED BY: RT Rico(R) June 23, 2024 3:59 PM [facility] 06-23-2024 Note Patient Outreach (PU LMMN) JAKE CHAIREZ ([id number]) 1975 M Date Time Provider Department 06/23/24 [...] abuse [Z72.0] Order(s):CONSULT [facility]G [facility]ER [facility]CREENING [facility] [0431208] Order #: [id number]: 1 FUTURE Prescriptions as of 06/26/2024 - [...] by RECTAL route twice daily. - rizatriptan (MAXALT-CNC MANUFACTURING ENGINEER) 10 mg disintegrating tablet Take 1 tablet [...] 04/19/2013 Tobacco abus (more content not included)... [facility] 06-16-2024 History of Presen t illness [...] PATIENT PRESENTS WITH AN IMPLANTABLE OR ATTACHED TOOL GRINDER OPERATOR EXTERNAL: No RADIOLOGY DEPARTMENT: General X-ray: Exam(s) Completed: Lower Extremity X-Ray(s): Foot, Left and Wt. Bearing Upper Extremity X-Ray(s): Hand, left PERIPHERAL IV DATA: Not applicable SIGNED BY: RT Evelio(Jeremías) June 16, 2024 4:41 PM documented in this encounter [facility] 06-16-2024 Note HNO ID: [id number] Author: PATTIE MEJIA RT(Jeremías) Service: Radiology Author Type: Technologist Type: Progress [...] PATIENT PRESENTS WITH AN IMPLANTABLE OR ATTACHED TOOL GRINDER OPERATOR EXTERNAL: No RADIOLOGY DEPARTMENT: General X-ray: Exam(s) Completed: Lower Extremity X-Ray(s): Foot, Left and Wt. Bearing Upper Extremity X-Ray(s): Hand, left PERIPHERAL IV DATA: Not applicable SIGNED BY: RT Evelio(R) June 16, 2024 4:41 PM [facility] 06-16-2024 Note HNO ID: [id number] Author: AVNI SALCEDO, DO Service: ? Author [...] Suppository by RECTAL route twice daily. rizatriptan (MAXALT-CNC MANUFACTURING ENGINEER) 10 mg disintegrating tablet Take 1 tablet [...] numbness in ar (more content not included)... [facility] 06-16-2024 History of Presen t illness [...] Suppository by RECTAL route twice daily. rizatriptan (MAXALT-CNC MANUFACTURING ENGINEER) 10 mg disintegrating tablet Take 1 tablet [...] See patient instructions. Avni Salcedo DO [address] [place] [address] documented in this encounter [facility] 06-06-2024 Telephone encounter Note The patient [...] Hansen LPN June 06, 2024 3:07 PM [facility] 06-06-2024 Miscellaneous Notes The patient has [...] 2024 3:07 PM documented in this encounter [facility] 04-28-2024 Telephone encounter Note Patient has [...] Please advise. Thank you. Latonya Ritter LPN. [facility] 04-28-2024 Miscellaneous Notes Patient has been [...] Latonya Ritter LPN. documented in this encounter [facility] 04-25-2024 History of Presen t illness Narrative FOLLOW UP VISIT - ENDOSCOPY Jake Chairez 1975 [id number] REFERRING PHYSICIAN: No referring provider defined for [...] Resected and retrieved. Clip was placed. Clip job forwarder: [facility]. - The entire examined colon is normal. [...] as needed for worsening/no improvement. Joy Shearer APRN.INFORMATION SECURITY MANAGER documented in this encounter [facility] 04-25-2024 Note HNO ID: [id number] Author: JOY SHEARER APRN.MELISSA Service: ? Author Type: Nurse Practitioner Type: Progress Notes Filed: 04/25/2024 13:31 Note Text: FOLLOW UP VISIT - ENDOSCOPY Jake Chairez 1975 [id number] REFERRING PHYSICIAN: No referring provider defined for [...] Resected and retrieved. Clip was placed. Clip job forwarder: [facility]. - The entire examined colon is normal. [...] as needed for worsening/no improvement. Joy Shearer APRN.CNP [facility] 04-16-2024 Attending History and physical note [...] Jake Chairez 1975 REFERRING PHYSICIAN: Su Ham APRN.INFORMATION SECURITY MANAGER CHIEF COMPLAINT: Consult (Screening for colon cancer) [...] today at the request of Su Ham APRN.INFORMATION SECURITY MANAGER my opinion and advice regarding need for [...] Suppository by RECTAL route twice daily. rizatriptan (MAXALT-CNC MANUFACTURING ENGINEER) 10 mg disintegrating tablet Take 1 tablet [...] entered by the nurse and reviewed by in Nursing Notes: Jessica Rogers LPN 02/08/2024 11:38 [...] testing has been completed. John Chowdhury MD [facility] 04-16-2024 Attending History and physical note Polyp found in 2017 was at 20cm and a tubular adenoma Source Note - John Chowdhury MD - 04/16/2024 10:30 AM EDT HISTORY AND PHYSICAL Jake Chairez 1975 REFERRING PHYSICIAN: Su Ham APRN.MELISSA CHIEF COMPLAINT: Consult (Screening for colon cancer) [...] today at the request of Su Ham APRN.MELISSA my opinion and advice regarding need for [...] Suppository by RECTAL route twice daily. rizatriptan (MAXALT-CNC MANUFACTURING ENGINEER) 10 mg disintegrating tablet Take 1 tablet [...] testing has been completed. John Chowdhury MD [facility] 04-16-2024 History and physical note HISTORY AND PHYSICAL Jake Gonzalez Mihaela 1975 REFERRING PHYSICIAN: Su Ham APRN.INFORMATION SECURITY MANAGER CHIEF COMPLAINT: Consult (Screening for colon cancer) [...] today at the request of Su Ham APRN.INFORMATION SECURITY MANAGER my opinion and advice regarding need for [...] Suppository by RECTAL route twice daily. rizatriptan (MAXALT-CNC MANUFACTURING ENGINEER) 10 mg disintegrating tablet Take 1 tablet [...] polyps My findings have been communicated to Ham via shared medical record. This note will be forwarded to Avni Salcedo DO. Return to Clinic: The patient is instructed to follow-up with me after the testing has been completed. John Chowdhury MD [facility] 04-16-2024 History and physical note UPDATED [...] 10:30 AM EDT HISTORY AND PHYSICAL Jake Cahirez 1975 REFERRING PHYSICIAN: Su Ham APRN.MELISSA CHIEF COMPLAINT: Consult (Screening for colon cancer) [...] today at the request of Su Ham APRN.MELISSA my opinion and advice regarding need for [...] Suppository by RECTAL route twice daily. rizatriptan (MAXALT-CNC MANUFACTURING ENGINEER) 10 mg disintegrating tablet Take 1 tablet [...] Carlos Chairez 1975 REFERRING PHYSICIAN: Su Ham APRN.INFORMATION SECURITY MANAGER CHIEF COMPLAINT: Consult (Screening for colon cancer) [...] today at the request of Su Ham APRN.INFORMATION SECURITY MANAGER my opinion and advice regarding need for [...] Suppository by RECTAL route twice daily. rizatriptan (MAXALT-CNC MANUFACTURING ENGINEER) 10 mg disintegrating tablet Take 1 tablet [...] entered by the nurse and reviewed by in Nursing Notes: Jessica Rogers LPN 02/08/2024 11:38 [...] John Chowdhury MD HISTORY AND PHYSICAL Jake Gonzalez Mihaela 1975 REFERRING PHYSICIAN: Su Ham APRN.CNP CHIEF [...] today at the request of Su Ham APRN.INFORMATION SECURITY MANAGER my opinion and advice regarding need for [...] Suppository by RECTAL route twice daily. rizatriptan (MAXALT-CNC MANUFACTURING ENGINEER) 10 mg disintegrating tablet Take 1 tablet [...] entered by the nurse and reviewed by in Nursing Notes: Jessica Rogers LPN 02/08/2024 11:38 [...] John Chowdhury MD documented in this encounter [facility] 03-05-2024 Instructions Su Ham APRN.MELISSA - 03/05/2024 1:21 PM EDT Prozac Zoloft Lexapro All SSRI drug class medications documented in this encounter [facility] 03-05-2024 History of Presen t illness [...] Suppository by RECTAL route twice daily. rizatriptan (MAXALT-CNC MANUFACTURING ENGINEER) 10 mg disintegrating tablet Take 1 tablet [...] own first. Pt will reach out via [employer] if he wants to start on one of these. RTO in 3 months, sooner if needed if starting SSRI therapy. Prescription instructions reviewed with patient as applicable. Potential red flag symptoms discussed with the patient. Reviewed appropriate action plan to take if red flag symptoms occur. Patient agreeable to treatment plan. Su Bass APRN.INFORMATION SECURITY MANAGER [address] [place] [address] documented in this encounter [facility] 03-05-2024 Note HNO ID: [id number] Author: HAM, SU, DIGITAL ARCHIVIST.INFORMATION SECURITY MANAGER Service: ? Author Type: Nurse Practitioner Type: Progress Notes Filed: 03/05/2024 14:13 Note Text: Chief Complaint Patient presents with: BP Check HPI Jkae Chairez is a 49 year old male [...] Comments Thrush Te (more content not included)... [facility] 02-20-2024 Telephone encounter Note Prescription Refill [...] Ibarra MA February 20, 2024 10:09 AM [facility] 02-20-2024 Miscellaneous Notes Prescription Refill Information [...] 2024 10:09 AM documented in this encounter [facility] 02-10-2024 Note HNO ID: [id number] Author: JOHN CHOWDHURY MD Service: ? Author [...] Suppository by RECTAL route twice daily. rizatriptan (MAXALT-CNC MANUFACTURING ENGINEER) 10 mg disintegrating tablet Take 1 tablet by mouth as needed for migraine headache (see administration instructions). May repeat in 2 hours if needed Cholecalciferol, Vitamin D3, 125 mcg (5,000 unit) cap Take 1 capsule by mouth once daily. budesonide (PULMICORT) 0.5 mg/2 mL nebulizer solu (more content not included)... [facility] 02-10-2024 History of Presen t illness Narrative HISTORY AND PHYSICAL Jake Carlos Chairez 1975 REFERRING PHYSICIAN: Su Ham APRN.CNP [...] Suppository by RECTAL route twice daily. rizatriptan (MAXALT-CNC MANUFACTURING ENGINEER) 10 mg disintegrating tablet Take 1 tablet [...] John Chowdhury MD documented in this encounter [facility] 02-08-2024 Instructions John Chowdhury MD - [...] If you do not have a responsible rear load truck driver (family member or friend) with [...] at your local pharmacy or drugstore pharmacy. 08/2019 Bowel Preparation Instructions for: Golytely, Nulytely, [...] midnight. 2 08/2019 documented in this encounter [facility] 02-08-2024 Nurse Note REVIEW OF SYSTEMS: [...] N/A Last Colonoscopy: 2016 Jessica Rogers LPN [facility] 02-08-2024 Nurse Note REVIEW OF SYSTEMS: [...] N/A Last Colonoscopy: 2016 Jessica Rogers LPN documented in this encounter [facility] 02-08-2024 Telephone encounter Note Pt informed, verbalized understanding. Betina Murphy MA [facility] 02-08-2024 Miscellaneous Notes Pt informed, verbalized understanding. Betina Murphy MA I am ok with him continuing on his prior dosage of 60 mg daily if he takes this routinely, focuses on changes in diet, and repeats lipid panel in 3 months. If still elevated then we can increase the dosage. Thank you, Su Ham APRN.MELISSA Patient notified of results and provider's instructions. [...] 80 mg daily. Thank you, Su Ham APRN.MELISSA documented in this encounter [facility] 02-08-2024 Telephone encounter Note I am ok with him continuing on his prior dosage of 60 mg daily if he takes this routinely, focuses on changes in diet, and repeats lipid panel in 3 months. If still elevated then we can increase the dosage. Thank you, Su Ham APRN.INFORMATION SECURITY MANAGER [facility] 02-07-2024 Telephone encounter Note Patient notified [...] he currently picked up. Yolanda Girard, RN [facility] 02-07-2024 Telephone encounter Note TC no answer. Left additional VM to return call. ANGELES Schmitz [facility] 02-06-2024 Telephone encounter Note Left message to return call. [facility] 02-06-2024 Telephone encounter Note Please call [...] 80 mg daily. Thank you, Su Ham APRN.INFORMATION SECURITY MANAGER [facility] 01-31-2024 History of Presen t illness [...] for this. On chronic hydrocodone with relief. HM -- Colon cancer screening -- last colonoscopy in 2016 with polyps. Told to return in 5 [...] AREA TWICE DAILY NEEDED FOR RASH/ITCHING rizatriptan (MAXALT-CNC MANUFACTURING ENGINEER) 10 mg disintegrating tablet Take 1 tablet [...] taking: Reported on 01/31/2024) flash glucose sensor (Primary DataSTYLE ELISA 2 SENSOR) kit 1 Each as [...] Patient agreeable to treatment plan. Su Bass APRN.INFORMATION SECURITY MANAGER [address] [place] [address] documented in this encounter [facility] 11-22-2023 Miscellaneous Notes [facility]-01/08/23 Labs-04/03/23 NOV-none Lisette Linares LPN Pt is unemployed and no insurance. Pt is going to check with financial dept. for help. documented in this encounter [facility] 11-22-2023 Miscellaneous Notes [facility]-01/08/23 Labs-04/03/23 NOV-none Lisette Linares LPN Pt over due for a yearly. Checking with financial to help out, Pt is unemployed and no insurance. documented in this encounter [facility] 08-08-2023 Miscellaneous Notes Patient last visit with PCP 01/08/23 Follow up appointment scheduled none Shayla Nye Ma documented in this encounter [facility] 07-30-2023 Miscellaneous Notes [facility]-01/08/23 Labs-04/03/23 NOV-none Lisette Linares LPN Patient comment: I have [employer] Gold now to save money. Can this go to 180 day supply? documented in this encounter [facility] 07-30-2023 Miscellaneous Notes [facility]--01/08/23 Nov--nothing scheduled Last refill--01/08/23 90 with 1 refill Last labs--04/03/23 documented in this encounter [facility] 05-04-2023 Miscellaneous Notes Patient phones requesting refills as follows: Requested Prescriptions Pending Prescriptions Disp Refills hydroCHLOROthiazide 12.5 mg capsule 90 capsule 1 Sig: Take 1 capsule by mouth once daily. cyclobenzaprine (FLEXERIL) 10 mg tablet 270 tablet 0 Sig: Take 1 tablet by mouth three times daily as needed. [facility]-02/12/23 Labs-04/03/23 NOV-none Please review and advise. Lisette Linares LPN documented in this encounter [facility] 05-04-2023 Miscellaneous Notes Patient phones requesting refills as follows: Requested Prescriptions Pending Prescriptions Disp Refills hydrocortisone (HEMORRHOIDAL HC) 25 mg suppository 30 Suppository 0 Si Suppository by RECTAL route twice daily. [facility]-01/29/23 Labs-01/08/23 NOV-none Please review and advise. Lisette Linares LPN documented in this encounter [facility] 05-04-2023 Miscellaneous Notes Patient phones requesting refills as follows: Requested Prescriptions Pending Prescriptions Disp Refills triamcinolone acetonide (KENALOG) 0.1 % cream 45 g 2 Sig: APPLY SPARINGLY TO AFFECTED AREA TWICE DAILY NEEDED FOR RASH/ITCHING [facility]-01/29/23 Labs-01/08/23 NOV-none Please review and advise. Lisette Linares LPN documented in this encounter [facility] 04-09-2023 Miscellaneous Notes Patient has been identified by name and date of : Yes Patient phones for refill(s): Requested Prescriptions Pending Prescriptions Disp Refills rizatriptan (MAXALT-CNC MANUFACTURING ENGINEER) 10 mg disintegrating tablet 10 tablet 1 Sig: Take 1 tablet by mouth as needed for migraine headache (see administration instructions). May repeat in 2 hours if needed Date of last office visit in primary care: [facility] 01/08/23 NOV not scheduled Last 2 Encounter Wt Readings: Date: Wt: 01/08/2023 74.8 kg (165 lb) 11/01/2022 77 kg (169 lb 12.8 oz) Please advise. Thank you. ANGELES Schmitz documented in this encounter [facility] 01-24-2023 History of Presen t illness Narrative Radiology Service Progress Note PATIENT NAME: Jake Chaierz DATE OF SERVICE: January 24, 2023 TIME: [...] DATA: Not applicable SIGNED BY: RT Jacqueline(R) January 24, 2023 2:17 PM documented in this encounter [facility] 01-22-2023 Miscellaneous Notes Patient has been [...] Pinky Pineda LPN documented in this encounter [facility] 01-19-2023 Miscellaneous Notes Patient has been identified by name and date of : Yes Requested Prescriptions Pending Prescriptions Disp Refills rizatriptan (MAXALT-CNC MANUFACTURING ENGINEER) 10 mg disintegrating tablet 10 tablet 1 Sig: Take 1 tablet by mouth as needed for migraine headache (see administration instructions). May repeat in 2 hours if needed RX INSTRUCTIONS: Patient aware RX will be sent to pharmacy. No need to notify patient. Arlyn De Leon MA [facility] 01/2023 No appointment scheduled Last refill: 10/2021 documented in this encounter [facility] 01-09-2023 History of Presen t illness [...] Accessories kit Provide nebulizer kit accessory. rizatriptan (MAXALT-CNC MANUFACTURING ENGINEER) 10 mg disintegrating tablet Take 1 tablet [...] plan. See patient instructions. Avni Salcedo DO [address] [place] [address] documented in this encounter [facility] 11-16-2022 Discharge summary Note Date/Time November 16, 2022 7:55pm [facility] Medical Records Department [address] [place] [address] Emergency Department Summary 11/16/22 MR#: [id number] Acct: [id number] Name: JAKE CHAIREZ Rep #:[id number] : 1975 47 From: Rah Queen MD [...] and he thinks he felt a tear [facility] Medical History Asthma Chronic neck and back [...] your Primary Care Provider. Call [facility] ([phone]) or report to the closest Emergency Room. Call 911 if necessary. 11/16/222030 <Electronically signed by Rah Queen MD> Cosigner Signature (if applicable): CC: Dr. Avni Salecdo DO ~ Signed [facility] Work Phone: [phone] 497-630103-03-2023 Miscellaneous Notes* Telephone Encounter - Rochelle Vega - 11/10/2022 10:35 AM EST 1st attempt left message to return call to schedule with orth * Telephone Encounter - Catalina Almazan APRN.CNP - 11/10/2022 7:44 AM EST Ortho consult placed. Please assist him to schedule. Also leaving message in Su's inbasket to review message below for her. Catalina Almazan APRN.CNP * Telephone Encounter - Betina Murphy - 11/08/2022 3:01 PM EST Please see pt message Betina Murphy [facility] Miscellaneous Notes* Telephone Encounter - Latonya [...] improving at all. Thank you, Su Ham APRN.CNP documented [facility] Miscellaneous Notes* Telephone Encounter - Betina Murphy - 11/03/2022 8:21 AM EST Pt informed Betina Murphy * Telephone Encounter - Su Ham APRN.CNP - 11/02/2022 4:01 PM EST Pt needs appointment if he wants to start a medication like this. Needs ADD screening/questionnairedone. I saw pt in office yesterday but this was not mentioned at all. I apologize. Thank you, Su Ham APRN.CNP [facility] History of Present illness Narrative* Su Ham APRN.CNP - 11/01/2022 1:36 PM EST Chief Complaint Patient presents with: Follow Up: On dm and cholesterol and rt shoulder pain down to fingers has gotten worse HPI Jake Chairez is a 47 year old male who presents here today for Above Complaints. Jake is an established patient of Dr. Salcedo, and myself. Concerns today... To review recent [...] numerous months. Acute pain x 3-5 days. [place] a pop in shoulder when lifting up [...] needle aspiration biopsy of nodes, and bronchoalveolar kevykt70/2017. Type 2 diabetes (HCC) 10/26/2022 Unspecified asthma(493.90) [...] Accessories kit Provide nebulizer kit accessory. rizatriptan (MAXALT-CNC MANUFACTURING ENGINEER) 10 mg disintegrating tablet Take 1 tablet [...] loss - Discussed diabetic education issues of meterman diabetic complications, hypoglycemic symptoms, hyperglycemic symptoms, diet, medications- side effects and need for compliance, importance of exercise, use and side effects of insulin, importance of appointments with Racing Mechanic, importance of annual examinations with Opthalmology, and [...] Patient agreeable to treatment plan. Su Bass APRN.INFORMATION SECURITY MANAGER [address] [place] [address] documented [facility] History of Present illness Narrative* Claude Amanda RN - 11/01/2022 12:57 PM EST DIABETES CARE AND EDUCATION VISIT Location: [place] Type of visit: In person individual PATIENT'S [...] TIME: 1:28 PM PAGER: documented in this encounterTri[facility] Miscellaneous Notes* Telephone Encounter - ERNESTINA [...] him to have a visit with the PATTERN LEASE INSPECTOR Tori Blue and the nurse chucker to have a discussion on this and to start him on Metformin and teach about glucometer use, as well as discuss what to do about his very high cholesterol levels as well. Avni Salcedo DO documented in this encounterTri[facility] History of Present illness Narrative* Ary Montes De Oca RT(R) - 10/18/2022 9:20 AM EST Radiology [...] DATA: Not applicable SIGNED BY: RT Jacqueline(Jeremías) October 18, 2022 9:38 AM documented in this encounterTri[facility] Miscellaneous Notes* Telephone Encounter - Lisette [...] advise. Lisette Linares LPN documented in this encounterTri[facility] Miscellaneous Notes* Telephone Encounter - Latonya Ritter LPN - 10/16/2022 1:11 PM EST Pt. informed. * Telephone Encounter - Su Ham APRN.CNP - 10/16/2022 9:27 AM EST Please call patient and let him know that lung volume testings shows moderate obstruction with significant bronchodilator response. The RV and RV/TLC are elevated indicating air trapping. This correlates with his asthma, COPD and sarcoidosis dx. Does patient have a ice house supervisor he sees regularly? If not, I would recommend this. Thank you, Su Ham APRN.INFORMATION SECURITY MANAGER documented in this encounterTri[facility] History of Present illness Narrative* ARIELA Quispe - 10/13/2022 1:12 PM EST PULM FUNCTION SMARTBLOCK: Provider: Su Ham APRN.INFORMATION SECURITY MANAGER Assisting Tech: ARIELA Quispe Spirometry w/BD: 1 LV - Box: 1 documented in this encounterTri[facility] History of Present illness Narrative* Avni Salcedo, DO - 10/11/2022 9:53 PM EST CC: Jake [...] Accessories kit Provide nebulizer kit accessory. rizatriptan (MAXALT-CNC MANUFACTURING ENGINEER) 10 mg disintegrating tablet Take 1 tablet [...] See patient instructions. Avni Salcedo DO [address] [place] [address] documented in this encounterTri[facility] Instructions* Patient Instructions* Avni Salcedo DO - 10/11/2022 5:33 PM EST Fasting labs are ordered to get completed when able documented in this encounterTri[facility] Miscellaneous Notes* Telephone Encounter - Su Ham APRN.CNP - 10/04/2022 3:18 PM EST Noted. Thank [...] assist in scheduling. Thank you, Su Ham APRN.INFORMATION SECURITY MANAGER documented in this encounterTri[facility] History of Present illness Narrative* Kelsey Mortensen RT(R) - 09/29/2022 11:40 AM EST Radiology [...] 29, 2022 3:16 PM documented in this encounterTri[facility] Miscellaneous Notes* Telephone Encounter - Doris Vega - 09/23/2022 12:52 PM EST appt for ct scan has been made for 09-29-22 * Telephone Encounter - Ana Almanza LPN - 09/22/2022 3:46 PM EST Spoke with pt gave information provided. He voices understanding. Please assist in scheduling ct scan. * Telephone Encounter - Su Ham APRN.MELISSA - 09/22/2022 3:02 PM EST Please call [...] possible radon exposure. Thank you, Su Ham APRN.INFORMATION SECURITY MANAGER documented in this encounterTri[facility] Miscellaneous Notes* Telephone Encounter - Lita So RN - 09/22/2022 3:01 PM EST [place] reports the albuterol neb solution was written for 3 ml. That's one vial. Pended for 90 ml to equal one box (30 vials in a box). Please sign and resend to [place]. documented in this encounterTri[facility] History of Present illness Narrative* Joya Galvan, RT(R) - 09/22/2022 1:50 PM EST Radiology [...] DATA: Not applicable SIGNED BY: RT Dimitri(R) September 22, 2022 1:48 PM documented in this encounterTri[facility] History of Present illness Narrative* Su Ham APRN.INFORMATION SECURITY MANAGER - 09/22/2022 1:00 PM EST Chief Complaint [...] needle aspiration biopsy of nodes, and bronchoalveolar [id number]/2017. Unspecified asthma(493.90) Previous Surgical History PAST SURGICAL [...] Accessories kit Provide nebulizer kit accessory. rizatriptan (MAXALT-CNC MANUFACTURING ENGINEER) 10 mg disintegrating tablet Take 1 tablet [...] occur. Patient agreeable to treatment plan. Su aBss APRN.INFORMATION SECURITY MANAGER [address] [place] [address] documented in this encounterTri[facility] History of Present illness Narrative* Elmer Rodriguez APRN.MELISSA - 09/18/2022 11:14 AM EST Subjective HPI [...] needle aspiration biopsy of nodes, and bronchoalveolar eazdnc14/2017. Unspecified asthma(493.90) PAST SURGICAL HISTORY Procedure Laterality [...] Accessories kit Provide nebulizer kit accessory. rizatriptan (MAXALT-CNC MANUFACTURING ENGINEER) 10 mg disintegrating tablet Take 1 tablet [...] Sinus: Maxillary sinus tenderness present. Mouth/Throat: Lips: [place]. Mouth: Mucous membranes are moist. Pharynx: Oropharynx [...] of care. This note was generated using [employer] software. It may contain errors in wording, punctuation, or spelling. Elmer Rodriguez APRN.EMLISSA documented in this encounterTri[facility]11[facility]22 Miscellaneous Notes* Telephone Encounter - Shayla Nye Ma - 08/08/2022 2:24 PM EST Patient last visit with PCP 07/10/22 Follow up appointment scheduled 10/11/22 Shayla Nye Ma documented in this encounterTrihealth [facility]11[facility] History of Present illness Narrative* Carmen Giles - 08/04/2022 10:37 AM EST POPULATION HEALTH NAVIGATION OUTREACH Action/[facility] Support: Called pt to schedule an appt in Pain Management. Lvm for pt to call [phone] for scheduling. Pt identified by name and : NO Outreach Outcome/Action Unable to reach patient: Left message Did you use a PCP flex slot to schedule this appointment? No Reason for Outreach Care Gap or Scheduling/Wellness visits [facility]: [facility] / Plan: ID PREMIER FULLY INSURED / Product Type: PPO [...] 04, 2022 10:37 AM documented in this encounterTri[facility] Miscellaneous Notes* Telephone Encounter - Concepcion [...] you. Concepcion Rushing LPN documented in this encounterTri[facility]10-31-2022 History of Present illness Narrative* Avni Salcedo, - 07/10/2022 3:23 PM EDT CC: Jake [...] needle aspiration biopsy of nodes, and bronchoalveolar [id number]. Unspecified asthma(493.90) PAST SURGICAL HISTORY Procedure Laterality [...] Accessories kit Provide nebulizer kit accessory. rizatriptan (MAXALT-CNC MANUFACTURING ENGINEER) 10 mg disintegrating tablet Take 1 tablet [...] plan. See patient instructions. Avni Salcedo DO [address] [place] [address] documented in this encounterTrihealth [facility]10-20-2022 History of Present illness Narrative* Yash [...] 30 Yash Boothe PT documented in this encounterTrihealth [facility]10-17-2022 History of Present illness Narrative* Yash [...] 25 Total Treatment Time Minutes (timed/untimed): 25 MELCHOR Mobley PT documented in this encounterTrihealth [facility]10-10-2022 History of Present illness Narrative* Yash [...] glenohumeral ER with yellow t-band with elbows [id number] degrees 2x10. Mirror used for feedback to [...] 40 Yash Boothe PT documented in this encounterTri[facility]10-03-2022 History of Present illness Narrative* Yash [...] 10 Total Treatment Time Minutes (timed/untimed): 40 Socoror Garrido CHEESE WEIGHER Yash Boothe PT documented in this encounterTrihealth [facility]09-29-2022 Miscellaneous Notes* Telephone Encounter - Amanda Haskins PSS - 06/08/2022 2:42 PM EDT Pt picked up cd * Telephone Encounter - Kamille Benitez Pss - 06/07/2022 5:18 PM EDT Patient requesting images of 05/19/22 cerv xray and 06/01/[address]. I already printed reports and release is signed and scanned in Squee. Patient would like to last picker by 2pm 06/08/2022. Kamille Benitez Pss documented in this encounterTrihealth [facility]09-28-2022 History of Present illness Narrative* Yash [...] Treatment Time Minutes (timed/untimed): 39 Socorro Garrido, CHEESE WEIGHER Yash Boothe PT documented in this encounterTrihealth [facility]09-23-2022 Miscellaneous Notes* Telephone Encounter - Yolanda [...] Provider: AVNI SALCEDO DO documented in this encounterTrihealth [facility]09-22-2022 History of Present illness Narrative* Kelsey Lam, RT(R) - 06/01/2022 1:40 PM EDT [...] 2022 TIME: 2:54 PM documented in this encounterTrihealth [facility]09-20-2022 History of Present illness Narrative* Yash [...] Planned: 12 Planned Treatment Interventions: Therapeutic exercise (49997);Manual therapy (52282);Self-care homemanagement (27830);Patient/Family/Caregiver Education;Body Mechanics Training PLAN FOR NEXT VISIT: [...] Unemployed Home Environment Patient Lives With: Self/Alone (ronni has her own place) Intake Information: Prescription [...] for any asymmetrical weakness. Hand Strength R Valve Steamer Position 2 (lbs): 100 lbs L Valve Steamer Position 2 (lbs): 93 lbs (value varied [...] 50 Yash Boothe PT documented in this encounterTrihealth [facility]09-14-2022 Miscellaneous Notes* Telephone Encounter - Agata Deluca RN - 05/24/2022 2:23 PM EDT Pt scheduled for PT, sent to scheduling to set up CT. * Telephone Encounter - Su Bass APRN.CNP - 05/22/2022 9:54 AM EDT PT consult placed! Please assist in scheduling. Thank you, Su Bass APRN.MELISSA * Telephone Encounter - Betina Sinha Ma [...] draw. Avni Salcedo DO documented in this encounterTrihealth [facility]09-09-2022 History of Present illness Narrative* Avni [...] Accessories kit Provide nebulizer kit accessory. rizatriptan (MAXALT-CNC MANUFACTURING ENGINEER) 10 mg disintegrating tablet Take 1 tablet [...] See patient instructions. Avni Salcedo DO [address] [place] [address] documented in this encounterTrihealth [facility]09-09-2022 History of Present illness Narrative* Joya Galvan, RT(R) - 05/19/2022 11:40 AM EDT Radiology [...] 19, 2022 11:49 AM documented in this encounterTrihealth [facility]08-11-2022 Miscellaneous Notes* Telephone Encounter - Lisette Linares LPN - 04/20/2022 12:30 PM EDT Patient phones requesting refills as follows: Requested Prescriptions Pending Prescriptions Disp Refills hydroCHLOROthiazide (HYDRODIURIL, ESIDRIX) 12.5 mg capsule 90 capsule 1 Sig: Take 1 capsule by mouth once daily. SHIVANI-12/12/21 Labs-06/01/21 NOV-none med filled 11/04/21 Please review and advise. Lisette Linares LPN documented in this encounterTrihealth [facility]08-09-2022 Instructions* Patient Instructions* Tammy Llanes APRN.MELISSA - 04/18/2022 4:35 PM EDT Continue prescribed [...] iron supplement while taking Follow up with ice house supervisor if no improvement. * Seek medical care immediately, call 911, go to ER if you have chest pain, difficulty breathing, shortness of breath, inability to swallow. documented in this encounterTrihealth [facility]08-09-2022 History of Present illness Narrative* Tammy Llanes APRN.CNP - 04/18/2022 4:31 PM EDT Subjective The history is provided by the patient. No spanish medical interpreter was used. JAYESH Chairez is a 47 year old male [...] 73.5 kg (162 lb) SpO2 97% BMI 26.67 kg/m Social History Tobacco Use Smoking status: Former [...] needle aspiration biopsy of nodes, and bronchoalveolar [id number]. Unspecified asthma(493.90) I have confirmed and edited as necessary, the [facility] Review of Systems Constitutional: Negative for chills [...] evaluation. Tammy Llanes APRN.MELISSA documented in this encounterTrihealth [facility]08-09-2022 Miscellaneous Notes* Telephone Encounter - Concepcion [...] you. Concepcion Rushing LPN documented in this encounterTrihealth [facility]07-19-2022 Miscellaneous Notes* Telephone Encounter - Chandrika Campa LPN - 03/28/2022 8:52 AM EDT Patient phones requesting refills as follows: Pending Prescriptions Disp Refills COMBIVENT RESPIMAT 20 MCG-100 MCG/ACTUATION SOLUTION FOR INHALATION 4 g 1 Si puffs QID for asthma BALDEMAR: No Please review and advise. Chandrika Campa LPN documented in this encounterTrihealth [facility]06-16-2022 Miscellaneous Notes* Telephone Encounter - Ana Almanza LPN - 02/23/2022 10:56 AM EDT shivani-- 12/12/21 Next-- None made Last refill--08/30/21 90 With 1 Last labs--06/01/21 documented in this encounterTrihealth [facility]05-06-2022 Miscellaneous Notes* Telephone Encounter - Catalina [...] none Shayla Nye Ma documented in this encounterTrihealth [facility]05-06-2022 Miscellaneous Notes* Telephone Encounter - Pinky Garcia - 01/13/2022 8:39 AM EDT Patient electronically requesting refills as follows: Pending Prescriptions Disp Refills COMBIVENT RESPIMAT 20 MCG-100 MCG/ACTUATION SOLUTION FOR INHALATION 4 g 1 Si puffs QID for asthma BALDEMAR: No Please review and advise. Pinky Garcia documented in this encounterTrihealth [facility]05-06-2022 Miscellaneous Notes* Telephone Encounter - Lisette Linares LPN - 01/13/2022 8:08 AM EDT Patient phones requesting refills as follows: Pending Prescriptions Disp Refills LISINOPRIL 20 MG TABLET 90 tablet 1 Sig: Take 1 tablet by mouth once daily. BALDEMAR: No SHIVANI-12/12/21 Labs-06/01/21 NOV-none Please review and advise. Lisette Linares LPN documented in this encounterTrihealth [facility]05-06-2022 Miscellaneous Notes* Telephone Encounter - Lisette [...] three times daily as needed. BALDEMAR: No SHIVANI-4/4/22 Labs-06/01/21 NOV-none Please review and advise. Lisette Linares LPN documented in this encounterTrihealth [facility]05-06-2022 Miscellaneous Notes* Telephone Encounter - Lisette Linares LPN - 01/13/2022 7:49 AM EDT Patient phones requesting refills as follows: Pending Prescriptions Disp Refills PROMETHAZINE 25 MG TABLET 90 tablet 1 Sig: Take 1 tablet by mouth every 6 hours as needed. BALDEMAR: No SHIVANI-12/12/21 Labs-06/01/21 NOV-none Please review and advise. Lisette Linares LPN documented in this encounterTrihealth [facility]04-04-2022 Nurse Note* Ary Lopez Ma - 12/12/2021 1:04 PM EDT VISUAL ACUITY: Today's exam: Vision Correction? Glasses: RIGHT EYE: 20/30 LEFT EYE: 20/ 30 BOTH EYES: 20/25 HEARING EXAM: Frequency 1000Hz: Right25 dB Left 20dB 2000Hz Right15 dB Left 20dB 500Hz Right20 dB Left 25dB documented in this encounterTrihealth [facility]04-04-2022 History of Present illness Narrative* Lita Ludwig PA-C - 12/12/2021 1:00 PM EDT [...] FEF75 (L/sec) 1.10 0.50 2.29 0.42 37 [id number] (L/sec) 3.23 1.77 5.12 1.25 38 PEF [...] 74.6 24.6 (L) 32.5 (L) 109.5 T4, [place] 4.0 - 11.0 ug/dL 6.2 TSH, [place] 0.50 - 6.00 uIU/mL 2.87 LH 1.0 [...] 1.00 - 4.00 k/uL 1.88 1.08 1.47 [place]% % 5.9 6.7 7.2 Abs [place] <0.87 k/uL 0.55 0.48 0.52 [place]% % [...] needle aspiration biopsy of nodes, and bronchoalveolar [id number]. Unspecified asthma(493.90) PAST SURGICAL HISTORY Procedure Laterality [...] nebulizer kit accessory. 1 Each 3 rizatriptan (MAXALT-CNC MANUFACTURING ENGINEER) 10 mg disintegrating tablet Take 1 tablet [...] 2 years: scanned form for details - UA DIP B/O Lita Ludwig PA-C documented in this encounterTrihealth [facility]03-04-2022 History of Present illness Narrative* Pattie Mejia, RT(R) - 11/11/2021 2:50 PM EST Radiology [...] 11, 2021 2:54 PM documented in this encounterTri[facility]11-18-2021 History of Present illness Narrative* Joya [...] DATA: Not applicable SIGNED BY: RT Dimitri(R) July 28, 2021 6:27 PM documented in this encounterTri[facility]01-14-2021 History of Present illness Narrative* Kalyani Gordon (Tech), Tech - 09/23/2020 6:50 PM EST Radiology Service [...] 23, 2020 6:48 PM documented in this encounterTrihealth [facility]12-11-2006 History of Past illness Narrative* Problem Noted Date Resolved Date Benign neoplasm of colon 08/20/2006 007 ABDOMINAL PAIN( Right Upper Quadrant) 07/17/2006 03/05/2009 Unspecified asthma, with status asthmaticus 03/28/2007 Migraine without aura 10/22/2007 documented as of this encounter (statuses as of 12/12/2021) [facility] illness Narrative* Problem Noted Date Resolved Date Benign neoplasm of colon 08/20/2006 007 ABDOMINAL PAIN( Right Upper Quadrant) 07/17/2006 03/05/2009 Unspecified asthma, with status asthmaticus 03/28/2007 Migraine without aura 10/22/2007 documented as of this encounter (statuses as of 12/26/2021) [facility] Narrative* Problem Noted Date Resolved Date Benign neoplasm of colon 08/20/2006 007 ABDOMINAL PAIN( Right Upper Quadrant) 07/17/2006 03/05/2009 Unspecified asthma, with status asthmaticus 03/28/2007 Migraine without aura 10/22/2007 documented as of this encounter (statuses as of 01/13/2022) [facility] Narrative* Problem Noted Date Resolved Date Benign neoplasm of colon 08/20/2006 007 ABDOMINAL PAIN( Right Upper Quadrant) 07/17/2006 03/05/2009 Unspecified asthma, with status asthmaticus 03/28/2007 Migraine without aura 10/22/2007 documented as of this encounter (statuses as of 01/13/2022) [facility] Narrative* Problem Noted Date Resolved Date Benign neoplasm of colon 08/20/2006 007 ABDOMINAL PAIN( Right Upper Quadrant) 07/17/2006 03/05/2009 Unspecified asthma, with status asthmaticus 03/28/2007 Migraine without aura 10/22/2007 documented as of this encounter (statuses as of 01/13/2022) [address]11-2006 History of Past illness Narrative* Problem Noted Date Resolved Date Benign neoplasm of colon 08/20/2006 007 ABDOMINAL PAIN( Right Upper Quadrant) 07/17/2006 03/05/2009 Unspecified asthma, with status asthmaticus 03/28/2007 Migraine without aura 10/22/2007 documented as of this encounter (statuses as of 02/23/2022) [facility] Narrative* Problem Noted Date Resolved Date Benign neoplasm of colon 08/20/2006 007 ABDOMINAL PAIN( Right Upper Quadrant) 07/17/2006 03/05/2009 Unspecified asthma, with status asthmaticus 03/28/2007 Migraine without aura 10/22/2007 documented as of this encounter (statuses as of 03/16/2022) [facility] Narrative* Problem Noted Date Resolved Date Benign neoplasm of colon 08/20/2006 007 ABDOMINAL PAIN( Right Upper Quadrant) 07/17/2006 03/05/2009 Unspecified asthma, with status asthmaticus 03/28/2007 Migraine without aura 10/22/2007 documented as of this encounter (statuses as of 03/28/2022) [facility] Narrative* Problem Noted Date Resolved Date Benign neoplasm of colon 08/20/2006 007 ABDOMINAL PAIN( Right Upper Quadrant) 07/17/2006 03/05/2009 Unspecified asthma, with status asthmaticus 03/28/2007 Migraine without aura 10/22/2007 documented as of this encounter (statuses as of 04/18/2022) [facility] Narrative* Problem Noted Date Resolved Date Benign neoplasm of colon 08/20/2006 007 ABDOMINAL PAIN( Right Upper Quadrant) 07/17/2006 03/05/2009 Unspecified asthma, with status asthmaticus 03/28/2007 Migraine without aura 10/22/2007 documented as of this encounter (statuses as of 04/19/2022) [facility] Narrative* Problem Noted Date Resolved Date Benign neoplasm of colon 08/20/2006 007 ABDOMINAL PAIN( Right Upper Quadrant) 07/17/2006 03/05/2009 Unspecified asthma, with status asthmaticus 03/28/2007 Migraine without aura 10/22/2007 documented as of this encounter (statuses as of 04/20/2022) [address]11-2006 History of Past illness Narrative* Problem Noted Date Resolved Date Benign neoplasm of colon 08/20/2006 007 ABDOMINAL PAIN( Right Upper Quadrant) 07/17/2006 03/05/2009 Unspecified asthma, with status asthmaticus 03/28/2007 Migraine without aura 10/22/2007 documented as of this encounter (statuses as of 05/19/2022) [facility] Narrative* Problem Noted Date Resolved Date Benign neoplasm of colon 08/20/2006 007 ABDOMINAL PAIN( Right Upper Quadrant) 07/17/2006 03/05/2009 Unspecified asthma, with status asthmaticus 03/28/2007 Migraine without aura 10/22/2007 documented as of this encounter (statuses as of 05/24/2022) [facility] Narrative* Problem Noted Date Resolved Date Benign neoplasm of colon 08/20/2006 007 ABDOMINAL PAIN( Right Upper Quadrant) 07/17/2006 03/05/2009 Unspecified asthma, with status asthmaticus 03/28/2007 Migraine without aura 10/22/2007 documented as of this encounter (statuses as of 05/30/2022) [facility] Narrative* Problem Noted Date Resolved Date Benign neoplasm of colon 08/20/2006 007 ABDOMINAL PAIN( Right Upper Quadrant) 07/17/2006 03/05/2009 Unspecified asthma, with status asthmaticus 03/28/2007 Migraine without aura 10/22/2007 documented as of this encounter (statuses as of 06/02/2022) [facility] Narrative* Problem Noted Date Resolved Date Benign neoplasm of colon 08/20/2006 007 ABDOMINAL PAIN( Right Upper Quadrant) 07/17/2006 03/05/2009 Unspecified asthma, with status asthmaticus 03/28/2007 Migraine without aura 10/22/2007 documented as of this encounter (statuses as of 06/08/2022) [facility] Narrative* Problem Noted Date Resolved Date Benign neoplasm of colon 08/20/2006 007 ABDOMINAL PAIN( Right Upper Quadrant) 07/17/2006 03/05/2009 Unspecified asthma, with status asthmaticus 03/28/2007 Migraine without aura 10/22/2007 documented as of this encounter (statuses as of 06/13/2022) [facility] Narrative* Problem Noted Date Resolved Date Benign neoplasm of colon 08/20/2006 007 ABDOMINAL PAIN( Right Upper Quadrant) 07/17/2006 03/05/2009 Unspecified asthma, with status asthmaticus 03/28/2007 Migraine without aura 10/22/2007 documented as of this encounter (statuses as of 06/19/2022) [facility] Narrative* Problem Noted Date Resolved Date Benign neoplasm of colon 08/20/2006 007 ABDOMINAL PAIN( Right Upper Quadrant) 07/17/2006 03/05/2009 Unspecified asthma, with status asthmaticus 03/28/2007 Migraine without aura 10/22/2007 documented as of this encounter (statuses as of 06/26/2022) [facility] Narrative* Problem Noted Date Resolved Date Benign neoplasm of colon 08/20/2006 007 ABDOMINAL PAIN( Right Upper Quadrant) 07/17/2006 03/05/2009 Unspecified asthma, with status asthmaticus 03/28/2007 Migraine without aura 10/22/2007 documented as of this encounter (statuses as of 06/30/2022) [facility] Narrative* Problem Noted Date Resolved Date Benign neoplasm of colon 08/20/2006 007 ABDOMINAL PAIN( Right Upper Quadrant) 07/17/2006 03/05/2009 Unspecified asthma, with status asthmaticus 03/28/2007 Migraine without aura 10/22/2007 documented as of this encounter (statuses as of 07/11/2022) [facility] Narrative* Problem Noted Date Resolved Date Benign neoplasm of colon 08/20/2006 007 ABDOMINAL PAIN( Right Upper Quadrant) 07/17/2006 03/05/2009 Unspecified asthma, with status asthmaticus 03/28/2007 Migraine without aura 10/22/2007 documented as of this encounter (statuses as of 07/20/2022) [address]11-2006 History of Past illness Narrative* Problem Noted Date Resolved Date Benign neoplasm of colon 08/20/2006 007 ABDOMINAL PAIN( Right Upper Quadrant) 07/17/2006 03/05/2009 Unspecified asthma, with status asthmaticus 03/28/2007 Migraine without aura 10/22/2007 documented as of this encounter (statuses as of 08/04/2022) [facility] Narrative* Problem Noted Date Resolved Date Benign neoplasm of colon 08/20/2006 007 ABDOMINAL PAIN( Right Upper Quadrant) 07/17/2006 03/05/2009 Unspecified asthma, with status asthmaticus 03/28/2007 Migraine without aura 10/22/2007 documented as of this encounter (statuses as of 08/09/2022) [facility] Narrative* Problem Noted Date Resolved Date Benign neoplasm of colon 08/20/2006 007 ABDOMINAL PAIN( Right Upper Quadrant) 07/17/2006 03/05/2009 Unspecified asthma, with status asthmaticus 03/28/2007 Migraine without aura 10/22/2007 documented as of this encounter (statuses as of 09/18/2022) [facility] Narrative* Problem Noted Date Resolved Date Benign neoplasm of colon 08/20/2006 007 ABDOMINAL PAIN( Right Upper Quadrant) 07/17/2006 03/05/2009 Unspecified asthma, with status asthmaticus 03/28/2007 Migraine without aura 10/22/2007 documented as of this encounter (statuses as of 09/22/2022) [facility] Narrative* Problem Noted Date Resolved Date Benign neoplasm of colon 08/20/2006 007 ABDOMINAL PAIN( Right Upper Quadrant) 07/17/2006 03/05/2009 Unspecified asthma, with status asthmaticus 03/28/2007 Migraine without aura 10/22/2007 documented as of this encounter (statuses as of 09/22/2022) [facility] Narrative* Problem Noted Date Resolved Date Benign neoplasm of colon 08/20/2006 007 ABDOMINAL PAIN( Right Upper Quadrant) 07/17/2006 03/05/2009 Unspecified asthma, with status asthmaticus 03/28/2007 Migraine without aura 10/22/2007 documented as of this encounter (statuses as of 09/29/2022) [address]11[address]2006 History of Past illness Narrative* Problem Noted Date Resolved Date Benign neoplasm of colon 08/20/2006 007 ABDOMINAL PAIN( Right Upper Quadrant) 07/17/2006 03/05/2009 Unspecified asthma, with status asthmaticus 03/28/2007 Migraine without aura 10/22/2007 documented as of this encounter (statuses as of 10/04/2022) [facility] Narrative* Problem Noted Date Resolved Date Benign neoplasm of colon 08/20/2006 007 ABDOMINAL PAIN( Right Upper Quadrant) 07/17/2006 03/05/2009 Unspecified asthma, with status asthmaticus 03/28/2007 Migraine without aura 10/22/2007 documented as of this encounter (statuses as of 10/12/2022) [facility] Narrative* Problem Noted Date Resolved Date Benign neoplasm of colon 08/20/2006 007 ABDOMINAL PAIN( Right Upper Quadrant) 07/17/2006 03/05/2009 Unspecified asthma, with status asthmaticus 03/28/2007 Migraine without aura 10/22/2007 documented as of this encounter (statuses as of 10/13/2022) [facility] Narrative* Problem Noted Date Resolved Date Benign neoplasm of colon 08/20/2006 007 ABDOMINAL PAIN( Right Upper Quadrant) 07/17/2006 03/05/2009 Unspecified asthma, with status asthmaticus 03/28/2007 Migraine without aura 10/22/2007 documented as of this encounter (statuses as of 10/16/2022) [address]11[address]2006 History of Past illness Narrative* Problem Noted Date Resolved Date Benign neoplasm of colon 08/20/2006 007 ABDOMINAL PAIN( Right Upper Quadrant) 07/17/2006 03/05/2009 Unspecified asthma, with status asthmaticus 03/28/2007 Migraine without aura 10/22/2007 documented as of this encounter (statuses as of 10/16/2022) [facility]arrative* Problem Noted Date Resolved Date Benign neoplasm of colon 08/20/2006 007 ABDOMINAL PAIN( Right Upper Quadrant) 07/17/2006 03/05/2009 Unspecified asthma, with status asthmaticus 03/28/2007 Migraine without aura 10/22/2007 documented as of this encounter (statuses as of 10/26/2022) [address]11[address]2006 History of Past illness Narrative* Problem Noted Date Resolved Date Benign neoplasm of colon 08/20/2006 007 ABDOMINAL PAIN( Right Upper Quadrant) 07/17/2006 03/05/2009 Unspecified asthma, with status asthmaticus 03/28/2007 Migraine without aura 10/22/2007 documented as of this encounter (statuses as of 11/01/2022) [facility] Narrative* Problem Noted Date Resolved Date Benign neoplasm of colon 08/20/2006 007 ABDOMINAL PAIN( Right Upper Quadrant) 07/17/2006 03/05/2009 Unspecified asthma, with status asthmaticus 03/28/2007 Migraine without aura 10/22/2007 documented as of this encounter (statuses as of 11/02/2022) [facility] Narrative* Problem Noted Date Resolved Date Benign neoplasm of colon 08/20/2006 007 ABDOMINAL PAIN( Right Upper Quadrant) 07/17/2006 03/05/2009 Unspecified asthma, with status asthmaticus 03/28/2007 Migraine without aura 10/22/2007 documented as of this encounter (statuses as of 11/03/2022) [facility] Narrative* Problem Noted Date Resolved Date Benign neoplasm of colon 08/20/2006 007 ABDOMINAL PAIN( Right Upper Quadrant) 07/17/2006 03/05/2009 Unspecified asthma, with status asthmaticus 03/28/2007 Migraine without aura 10/22/2007 documented as of this encounter (statuses as of 11/03/2022) [facility] Narrative* Problem Noted Date Resolved Date Benign neoplasm of colon 08/20/2006 007 ABDOMINAL PAIN( Right Upper Quadrant) 07/17/2006 03/05/2009 Unspecified asthma, with status asthmaticus 03/28/2007 Migraine without aura 10/22/2007 documented as of this encounter (statuses as of 11/09/2022) [address]11-2006 History of Past illness Narrative* Problem Noted Date Resolved Date Benign neoplasm of colon 08/20/2006 007 ABDOMINAL PAIN( Right Upper Quadrant) 07/17/2006 03/05/2009 Unspecified asthma, with status asthmaticus 03/28/2007 Migraine without aura 10/22/2007 documented as of this encounter (statuses as of 11/10/2022) [facility]12-11-2006 History of Past illness Narrative* Problem Noted Date Resolved Date Benign neoplasm of colon 08/20/2006 007 ABDOMINAL PAIN( Right Upper Quadrant) 07/17/2006 03/05/2009 Unspecified asthma, with status asthmaticus 03/28/2007 Migraine without aura 10/22/2007 documented as of this encounter (statuses as of 01/15/2023) [facility]12-11-2006 History of Past illness Narrative* Problem Noted Date Resolved Date Benign neoplasm of colon 08/20/2006 007 ABDOMINAL PAIN( Right Upper Quadrant) 07/17/2006 03/05/2009 Unspecified asthma, with status asthmaticus 03/28/2007 Migraine without aura 10/22/2007 documented as of this encounter (statuses as of 01/19/2023) [facility]12-11-2006 History of Past illness Narrative* Problem Noted Date Resolved Date Benign neoplasm of colon 08/20/2006 007 ABDOMINAL PAIN( Right Upper Quadrant) 07/17/2006 03/05/2009 Unspecified asthma, with status asthmaticus 03/28/2007 Migraine without aura 10/22/2007 documented as of this encounter (statuses as of 01/22/2023) [facility]12-11-2006 History of Past illness Narrative* Problem Noted Date Diagnosed Date Resolved Date Benign neoplasm of colon 08/20/2006 ABDOMINAL PAIN( Right Upper Quadrant) 07/17/2006 03/05/2009 Unspecified asthma, with status asthmaticus 03/28/2007 Migraine without aura 2007 documented as of this encounter (statuses as of 04/09/2023) [place] [address]-11-2006 History of Past illness Narrative* Problem Noted Date Diagnosed Date Resolved Date Benign neoplasm of colon 08/20/2006 ABDOMINAL PAIN( Right Upper Quadrant) 07/17/2006 03/05/2009 Unspecified asthma, with status asthmaticus 03/28/2007 Migraine without aura 2007 documented as of this encounter (statuses as of 05/04/2023) [address]11-2006 History of Past illness Narrative* Problem Noted Date Diagnosed Date Resolved Date Benign neoplasm of colon 08/20/2006 ABDOMINAL PAIN( Right Upper Quadrant) 07/17/2006 03/05/2009 Unspecified asthma, with status asthmaticus 03/28/2007 Migraine without aura 2007 documented as of this encounter (statuses as of 05/04/2023) [facility]12-11-2006 History of Past illness Narrative* Problem Noted Date Diagnosed Date Resolved Date Benign neoplasm of colon 08/20/2006 ABDOMINAL PAIN( Right Upper Quadrant) 07/17/2006 03/05/2009 Unspecified asthma, with status asthmaticus 03/28/2007 Migraine without aura 2007 documented as of this encounter (statuses as of 05/04/2023) [facility]12-[facility]-2006 History of Past illness Narrative* Problem Noted Date Diagnosed Date Resolved Date Benign neoplasm of colon 08/20/2006 ABDOMINAL PAIN( Right Upper Quadrant) 07/17/2006 03/05/2009 Unspecified asthma, with status asthmaticus 03/28/2007 Migraine without aura 2007 documented as of this encounter (statuses as of 07/15/2023) [facility]12-[facility]-2006 History of Past illness Narrative* Problem Noted Date Diagnosed Date Resolved Date Benign neoplasm of colon 08/20/2006 ABDOMINAL PAIN( Right Upper Quadrant) 07/17/2006 03/05/2009 Unspecified asthma, with status asthmaticus 03/28/2007 Migraine without aura 2007 documented as of this encounter (statuses as of 07/15/2023) [facility]12[facility]-2006 History of Past illness Narrative* Problem Noted Date Diagnosed Date Resolved Date Benign neoplasm of colon 08/20/2006 ABDOMINAL PAIN( Right Upper Quadrant) 07/17/2006 03/05/2009 Unspecified asthma, with status asthmaticus 03/28/2007 Migraine without aura 2007 documented as of this encounter (statuses as of 07/15/2023) [facility]12[facility]-2006 History of Past illness Narrative* Problem Noted Date Diagnosed Date Resolved Date Benign neoplasm of colon 08/20/2006 ABDOMINAL PAIN( Right Upper Quadrant) 07/17/2006 03/05/2009 Unspecified asthma, with status asthmaticus 03/28/2007 Migraine without aura 2007 documented as of this encounter (statuses as of 07/31/2023) [facility]2006 History of Past illness Narrative* Problem Noted Date Diagnosed Date Resolved Date Benign neoplasm of colon 08/20/2006 ABDOMINAL PAIN( Right Upper Quadrant) 07/17/2006 03/05/2009 Unspecified asthma, with status asthmaticus 03/28/2007 Migraine without aura 2007 documented as of this encounter (statuses as of 07/31/2023) [facility]-2006 History of Past illness Narrative* Problem Noted Date Diagnosed Date Resolved Date Benign neoplasm of colon 08/20/2006 ABDOMINAL PAIN( Right Upper Quadrant) 07/17/2006 03/05/2009 Unspecified asthma, with status asthmaticus 03/28/2007 Migraine without aura 2007 documented as of this encounter (statuses as of 08/08/2023) [facility]-2006 History of Past illness Narrative* Problem Noted Date Diagnosed Date Resolved Date Benign neoplasm of colon 08/20/2006 ABDOMINAL PAIN( Right Upper Quadrant) 07/17/2006 03/05/2009 Unspecified asthma, with status asthmaticus 03/28/2007 Migraine without aura 2007 documented as of this encounter (statuses as of 08/09/2023) [facility]2006 History of Past illness Narrative* Problem Noted Date Diagnosed Date Resolved Date Benign neoplasm of colon 08/20/2006 ABDOMINAL PAIN( Right Upper Quadrant) 07/17/2006 03/05/2009 Unspecified asthma, with status asthmaticus 03/28/2007 Migraine without aura 2007 documented as of this encounter (statuses as of 11/22/2023) [facility]12[facility]2006 History of Past illness Narrative* Problem Noted Date Diagnosed Date Resolved Date Benign neoplasm of colon 08/20/2006 ABDOMINAL PAIN( Right Upper Quadrant) 07/17/2006 03/05/2009 Unspecified asthma, with status asthmaticus 03/28/2007 Migraine without aura 2007 documented as of this encounter (statuses as of 11/22/2023) [facility] Diagnosis Encounter for examination required by Department of Transportation (DOT)- Primary [facility] Diagnosis Moderate persistent asthma with exacerbation- Primary Unspecified asthma, with exacerbation [facility] Diagnosis Migraine without aura and without status migrainosus, not intractable Migraine without aura, without mention of intractable migraine without mention of status migrainosus [facility] Diagnosis Pure hypercholesterolemia Displacement of lumbar intervertebral disc without myelopathy [facility]* Diagnosis BENIGN HYPERTENSION Essential hypertension, benign [facility]* Diagnosis Gastroesophageal reflux disease without esophagitis Esophageal reflux [facility]* Diagnosis Hypokalemia Hypopotassemia [facility]* Diagnosis Moderate persistent asthma with exacerbation Unspecified asthma, with exacerbation [facility]* Diagnosis Sinobronchitis- Primary Unspecified sinusitis (chronic) Mild intermittent asthma with acute exacerbation Unspecified asthma, with exacerbation Wheezing [facility]* Diagnosis Migraine without aura and without status migrainosus, not intractable Migraine without aura, without mention of intractable migraine without mention of status migrainosus Displacement of lumbar intervertebral disc without myelopathy [facility]* Diagnosis BENIGN HYPERTENSION Essential hypertension, benign [facility]* Diagnosis Localized swelling, mass and lump, neck- Primary Swelling, mass, or lump in head and neck Neck pain without injury Localized enlarged lymph nodes Enlargement of lymph nodes [facility]* Diagnosis Elevated alanine aminotransferase (ALT) level- Primary Nonspecific elevation of levels of transaminase or lactic acid dehydrogenase (LDH) Neck pain without injury [facility]* Diagnosis Neck pain without injury Neck pain Cervicalgia [facility] Diagnosis Localized swelling, mass and lump, neck Swelling, mass, or lump in head and neck Neck pain without injury Localized enlarged lymph nodes Enlargement of lymph nodes [facility] Diagnosis Acute non-recurrent maxillary sinusitis- Primary Acute pain of left knee Infected abrasion of left knee, initial encounter [facility] Diagnosis Neck pain- Primary Cervicalgia [facility] Diagnosis Neck pain- Primary Cervicalgia [facility] Diagnosis Neck pain- Primary Cervicalgia [facility] Diagnosis Neck pain- Primary Cervicalgia [facility] Diagnosis Neck pain- Primary Cervicalgia [facility] Diagnosis Chronic neck pain- Primary Cervicalgia Cervical radiculopathy Brachial neuritis or radiculitis nos Cervical disc disorder at C4-C5 level with radiculopathy Attention deficit Attention or concentration deficit [facility]* Diagnosis BENIGN HYPERTENSION Essential hypertension, benign [facility]* Diagnosis Hypokalemia Hypopotassemia [facility]* Diagnosis Sinobronchitis- Primary Unspecified sinusitis (chronic) [facility] Diagnosis Bronchitis- Primary Bronchitis, not specified as acute or chronic Asthma, moderate persistent, well-controlled Unspecified asthma Chronic allergic rhinitis Allergic rhinitis, cause unspecified Wheezing Exposure to radon, initial encounter [facility]* Diagnosis Bronchitis Bronchitis, not specified as acute or chronic documented [facility] Diagnosis Bronchitis- Primary Bronchitis, not specified as acute or chronic Asthma, moderate persistent, well-controlled Unspecified asthma Sarcoidosis of lung (HCC) Sarcoidosis [facility] Diagnosis Dyslipidemia- Primary Other and unspecified hyperlipidemia Vitamin D deficiency Unspecified vitamin D deficiency IFG (impaired fasting glucose) Impaired fasting glucose LVH (left ventricular hypertrophy) Cardiomegaly Asthma, moderate persistent, well-controlled Unspecified asthma Exposure to radon, initial encounter Wheezing [facility] Diagnosis Bronchitis Bronchitis, not specified as acute or chronic Asthma, moderate persistent, well-controlled Unspecified asthma Sarcoidosis of lung (HCC) Sarcoidosis [facility] Diagnosis Bronchitis Bronchitis, not specified as acute or chronic Asthma, moderate persistent, well-controlled Unspecified asthma Sarcoidosis of lung (HCC) Sarcoidosis [facility] Diagnosis BENIGN HYPERTENSION Essential hypertension, benign Displacement of lumbar intervertebral disc without myelopathy [facility] Diagnosis IFG (impaired fasting glucose)- Primary Impaired fasting glucose [facility]* Diagnosis New onset type 2 diabetes mellitus (HCC)- Primary Hyperlipidemia, mixed Mixed hyperlipidemia Acute pain of right shoulder [facility] Diagnosis Acute pain of right shoulder- Primary [facility] Diagnosis Onset Date Resolution Status Degenerative disc disease, cervical acute [facility] Work Phone: Evaluation note* Diagnosis Dyslipidemia- [...] neck pain Cervicalgia [facility]* Diagnosis Migraine without aura and without status migrainosus, not intractable Migraine without aura, without mention of intractable migraine without mention of status migrainosus [facility]* Diagnosis Displacement of lumbar intervertebral disc without myelopathy [facility]* Diagnosis Migraine without aura and without status migrainosus, not intractable Migraine without aura, without mention of intractable migraine without mention of status migrainosus [facility] Diagnosis BENIGN HYPERTENSION Essential hypertension, benign Displacement of lumbar intervertebral disc without myelopathy [facility] Diagnosis External hemorrhoid External hemorrhoids without mention of complication Hyperlipidemia, mixed Mixed hyperlipidemia [facility] Diagnosis Wheezing Bronchitis Bronchitis, not specified as acute or chronic [facility] Diagnosis Gastroesophageal reflux disease without esophagitis Esophageal reflux [facility]* Diagnosis BENIGN HYPERTENSION Essential hypertension, benign [facility] Diagnosis Chronic allergic rhinitis Allergic rhinitis, cause unspecified documented in this encounter [facility] note* Diagnosis Hypokalemia Hypopotassemia documented in this encounter [facility]* Diagnosis Displacement of lumbar intervertebral disc without myelopathy Hypokalemia Hypopotassemia Chronic allergic rhinitis Allergic rhinitis, cause unspecified documented [facility] this encounter [facility]* Diagnosis BENIGN HYPERTENSION Essential hypertension, benign [facility]* Diagnosis Displacement of lumbar intervertebral disc without myelopathy [facility] Diagnosis BENIGN HYPERTENSION- Primary Essential hypertension, [...] neoplasm of prostate [facility] this [facility]* Diagnosis Hyperlipidemia, mixed- Primary Mixed hyperlipidemia [facility] this [facility]* Diagnosis Gastroesophageal reflux disease, unspecified whether esophagitis present- Primary Screening for colon cancer Special screening for malignant neoplasms, colon Hyperlipidemia, mixed Mixed hyperlipidemia Irritable bowel syndrome with constipation Irritable bowel syndrome Diarrhea, unspecified type Personal history of colonic polyps documented [facility] this encounter [facility]* Diagnosis Displacement of lumbar intervertebral disc without myelopathy documented in this encounter [facility]* Diagnosis Essential hypertension, benign- Primary Anxiety with depression [facility]* Diagnosis Diarrhea, unspecified type- Primary Screening for colon cancer Special screening for malignant neoplasms, colon Hyperlipidemia, mixed Mixed hyperlipidemia Gastroesophageal reflux disease, unspecified whether esophagitis present Irritable bowel syndrome with constipation Irritable bowel syndrome Personal history of colonic polyps documented [facility]* Diagnosis Gastroesophageal reflux disease with esophagitis without hemorrhage- Primary Diarrhea, unspecified type [facility] this [facility]* Diagnosis Asthma, moderate persistent, well-controlled Unspecified asthma Chronic allergic rhinitis Allergic rhinitis, cause unspecified Bronchitis Bronchitis, not specified as acute or chronic documented [facility] this encounter [facility]* Diagnosis Acute pain of right shoulder documented [facility] this encounter [facility]* Diagnosis Neck pain without injury documented in this encounter [facility] note* Diagnosis Acute pain of left knee documented in this encounter [facility]* Diagnosis Cough documented in this encounter [facility]* Diagnosis Pain of left thumb Pain in limb Foot pain, left Pain in limb documented in this encounter [facility]* Diagnosis Pain of left thumb- Primary Pain in limb Foot pain, left Pain in limb Hyperlipidemia, mixed Mixed hyperlipidemia IFG (impaired fasting glucose) Impaired fasting glucose Vitamin D deficiency Unspecified vitamin D deficiency Fatigue, unspecified type Pulmonary nodule Solitary pulmonary nodule LVH (left ventricular hypertrophy) Cardiomegaly 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 Vitamin B12 deficiency Other B-complex deficiencies documented in this encounter [facility]* Diagnosis Pulmonary nodule Solitary pulmonary nodule [facility]* Diagnosis Tobacco abuse Tobacco use disorder documented in this encounter [facility] note* Diagnosis Elevated LFTs- Primary Other abnormal blood chemistry Hypokalemia Hypopotassemia documented in this encounter [facility] note* Diagnosis Essential hypertension, benign [facility] encounter [facility]* Diagnosis Chronic allergic rhinitis Allergic rhinitis, cause unspecified [facility]* Diagnosis External hemorrhoid External hemorrhoids without mention of complication Migraine without aura and without status migrainosus, not intractable Migraine without aura, without mention of intractable migraine without mention of status migrainosus [facility]* Diagnosis Asthma, moderate persistent, well-controlled Unspecified asthma Chronic allergic rhinitis Allergic rhinitis, cause unspecified Mild persistent asthma without complication Unspecified asthma Bronchitis Bronchitis, not specified as acute or chronic documented [facility] this encounter [facility]* Diagnosis Encounter for screening for lung cancer- Primary Tobacco abuse Tobacco use disorder [facility]* Diagnosis Asthma, moderate persistent, poorly-controlled- Primary Unspecified asthma H/O sarcoidosis Personal history of other endocrine, metabolic, and immunity disorders Former cigarette smoker Personal history of tobacco use, presenting hazards to health documented [facility] this encounter [facility]* Diagnosis Displacement of lumbar intervertebral disc without myelopathy documented in this encounter [facility] note* Diagnosis Asthma, moderate persistent, poorly-controlled (HCC) Unspecified asthma documented in this encounter [facility] note* Diagnosis Asthma, moderate persistent, poorly-controlled (HCC) Unspecified asthma documented in this encounter [facility] note* Diagnosis Asthma, moderate persistent, poorly-controlled (HCC)- Primary Unspecified asthma Acute non-recurrent maxillary sinusitis Chronic allergic rhinitis Allergic rhinitis, cause unspecified Daytime sleepiness Former cigarette smoker Personal history of tobacco use, presenting hazards to health documented in this encounter [facility] note* Diagnosis IFG (impaired fasting glucose)- Primary [...] (HCC) Unspecified asthma documented in this encounter [facility] note* Diagnosis Rib pain on left side- Primary Chest pain, unspecified Left sided abdominal pain Abdominal pain, unspecified site Rib pain on left side Chest pain, unspecified documented in this encounter [facility] note* Diagnosis Rib pain on left side Chest pain, unspecified documented in this encounter [facility] note* Diagnosis Splenomegaly, not elsewhere classified- Primary Left sided abdominal pain Abdominal pain, unspecified site documented in this encounter [facility] note* Diagnosis Procedure not carried out- Primary Procedure not carried out for other reasons documented in this encounter [facility] for referral (narrative)* Diagnostic Procedure Only (Routine) - Closed Specialty Diagnoses / Procedures Referred By Ange sheets Referred To Contact XR IMAGING Diagnoses Neck pain without injury Procedures XR CERV OTHER 4V AP/LAT/OBL RADEX SPINE CERVICAL 4 OR 5 VIEWS Avni Salcedo DO [address] [place] [address] Xr Imaging Referral ID Status Reason Start Date Expiration Date V isits Requested Visits Authorized [id number] Closed Auto-Generate d Referral 05/19/2022 09/09/2022 1 1 * MRI/CT (Routine) - Pending Review Specialty Diagnoses / Procedures Referred By Mollyac t Referred To Contact CT IMAGING Diagnoses Localized swelling, mass and lump, neck Neck pain without injury Localized enlarged lymph nodes Procedures CT NECK SOFT TISSUE W IVCON CT SOFT TISSUE NECK W/CONTRAST MATERIAL Avni Salcedo DO [address] [place] [address] Ct Imaging Referral ID Status Reason Start Date Expiration Date Visits Requested Visits Authorized [id number] Pending Review Auto-Generat ed Referral 05/19/2022 06/18/2023 1 1 [facility] for referral (narrative)* Outpatient Procedure (Routine) - Authorized Specialty Diagnoses / Procedures Referred By Ange t Referred To [facility] Diagnoses Bronchitis Asthma, moderate persistent, well-controlled Sarcoidosis of lung (HCC) Procedures SPIROMETRY - BASELINE AND POST DILATOR BRNCDILAT RSPSE SPMTRY PRE&POST-BRNCDILAT ADMN Su Ham APRN.INFORMATION SECURITY MANAGER [address] [place] [address] Respiratory [place] [address] [place] [address] Referral ID Status Reason Start Date Expiration Date Visits Requested Visits Authorized [id number] Authorized Auto-Generat ed Referral 10/02/2022 11/01/2023 1 1 * Outpatient Procedure (Routine) - Pending Review Specialty Diagnoses / Procedures Referred By Contcruz t Referred To [facility] Diagnoses Bronchitis Asthma, moderate persistent, well-controlled Sarcoidosis of lung (HCC) Procedures LUNG VOLUMES Su Ham APRN.INFORMATION SECURITY MANAGER [address] [place] [address] [address] Referral ID Status Reason Start Date Expiration Date Visits Requested Visits Authorized [id number] Pending Review Auto-Generat ed Referral 10/02/2022 11/01/[address] [facility] for referral (narrative)* Outpatient Procedure (Routine) - Authorized Specialty Diagnoses / Procedures Referred By [facility] Referred To Contact [facility] Diagnoses LVH (left ventricular hypertrophy) Procedures ECHO ECHO TTHRC R-T 2D W/WOM-MODE COMPL SPEC&COLR D Avni Salcedo DO [address] [place] [address] [facility] [place] [address] [place], [place] [id number] Referral ID Status Reason Start Date Expiration Date Visits Requested Visits Authorized [id number] Authorized Auto-Generat ed Referral 10/11/2022 10/11/[address] [facility] for referral (narrative)* Diagnostic Procedure Only (Routine) - Closed Specialty Diagnoses / Procedures Referred By [facility] Referred To Contact XR IMAGING Diagnoses Acute pain of right shoulder Procedures XR SHOULDER GENERAL 3V OR MORE AP/TRUE AP/OTHER RIGHT RADEX SHOULDER COMPLETE MINIMUM 2 VIEWS Su Ham APRN.CNP [address] [place] [address] Xr Imaging Referral ID Status Reason Start Date Expiration Date V isits Requested Visits Authorized [id number] Closed Auto-Generate d Referral 11/01/2022 12/01/[address] [facility] for referral (narrative)* Diagnostic Procedure Only (Routine) - Closed Specialty Diagnoses / Procedures Referred By [facility] t Referred To Contact [facility] Diagnoses Screening for colon cancer Hyperlipidemia, mixed Gastroesophageal reflux disease, unspecified whether esophagitis present Irritable bowel syndrome with constipation Diarrhea, unspecified type Personal history of colonic polyps Procedures EGD DIAGNOSTIC ESOPHAGOGASTRODUODENOSC OPY TRANSORAL DIAGNOSTIC John Chowdhury MD [address] [address] Dig[facility]ive Disease [place] [address] [place] [address] Referral ID Status Reason Start Date Expiration Date V isits Requested Visits Authorized [id number] Closed Auto-Generated Referral Patient Cleared - INN Insurance Found 04/14/2024 09/09/2024 1 1 * Financial Clearance (Routine) - Closed Specialty Diagnoses / Procedures Referred By Mollyac t Referred To Contact [facility] Diagnoses Screening for colon cancer Hyperlipidemia, mixed Gastroesophageal reflux disease, unspecified whether esophagitis present Irritable bowel syndrome with constipation Diarrhea, unspecified type Personal history of colonic polyps Procedures COLONOSCOPY SCREENING COLONOSCOPY SCREENING COLONOSCOPY FLX DX W/COLLJ SPEC WHEN John Richardson MD [address] [address] [facility] [place] [address] [place] [address] Referral ID Status Reason Start Date Expiration Date V isits Requested Visits Authorized [id number] Closed Auto-Generated Referral Patient Cleared - Qualified 100% FAS 04/16/2024 09/09/2024 1 1 [facility] for referral (narrative)* Diagnostic Procedure Only (Routine) - Closed Specialty Diagnoses / Procedures Referred By [facility] Referred To Contact XR IMAGING Diagnoses Acute pain of right shoulder Procedures XR SHOULDER GENERAL 3V OR MORE AP/TRUE AP/OTHER RIGHT RADEX SHOULDER COMPLETE MINIMUM 2 VIEWS uS Ham APRN.CNP [address] [place] [address] [place] [address] Referral ID Status Reason Start Date Expiration Date V isits Requested Visits Authorized [id number] Closed Auto-Generate d Referral 11/01/2022 12/01/2023 1 1 [facility] for referral (narrative)* Diagnostic Procedure Only (Routine) - Closed Specialty Diagnoses / Procedures Referred By Mollyac t Referred To Contact XR IMAGING Diagnoses Neck pain without injury Procedures XR CERV OTHER 4V AP/LAT/OBL RADEX SPINE CERVICAL 4 OR 5 VIEWS Avni Salcedo DO [address] [place] [address] [place] [address] Referral ID Status Reason Start Date Expiration Date V isits Requested Visits Authorized [id number] Closed Auto-Generate d Referral 05/19/2022 09/09/2022 1 1 [facility] for referral (narrative)* Diagnostic Procedure Only (Routine) - Closed Specialty Diagnoses / Procedures Referred By Contac t Referred To Contact XR IMAGING Diagnoses Acute pain of left knee Infected abrasion of left knee, initial encounter Procedures XR KNEE GENERAL 4V AP BOTH/PA BOTH/LAT/MERC LEFT RADIOLOGIC EXAM KNEE COMPLETE 4/MORE VIEWS Su Ham APRN.CNP [address] [place] [address] [place] [address] Referral ID Status Reason Start Date Expiration Date V isits Requested Visits Authorized [id number] Closed Auto-Generate d Referral 11/11/2021 12/11/2022 1 1 [facility] for referral (narrative)* Outpatient Procedure (Routine) - Pending Review Specialty Diagnoses / Procedures Referred By Contac t Referred To Contact [facility] Diagnoses LVH (left ventricular hypertrophy) 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 Procedures ECHO ECHO TTHRC R-T 2D W/WOM-MODE COMPL SPEC&COLR D Avni Salcedo DO [address] [place] [address] [facility] [place] [address] [place] [address] Referral ID Status Reason Start Date Expiration Date Visits Requested Visits Authorized [id number] Pending Review Auto-Generat ed Referral 06/16/2024 06/16/2025 1 1 * MRI/CT (Routine) - Open Specialty Diagnoses / Procedures Referred By Contac t Referred To Contact CT IMAGING Diagnoses Pulmonary nodule Procedures CT CHEST WO IVCON DIAGNOSTIC COMPUTED TOMOGRAPHY THORAX W/O CNTRST Avni Salcedo, DO [address] [place] [address] [place] [address] Referral ID Status Reason Start Date Expiration Date V isits Requested Visits Authorized [id number] Open Auto-Generate d Referral 06/16/2024 07/16/2025 1 1 * Diagnostic Procedure Only (Routine) - Closed Specialty Diagnoses / Procedures Referred By Contac t Referred To Contact XR IMAGING Diagnoses Foot pain, left Procedures XR FOOT GENERAL 3V AP/LAT/OBL LEFT RADEX FOOT COMPLETE MINIMUM 3 VIEWS Avni Salcedo, DO [address] [place] [address] [place] [address] Referral ID Status Reason Start Date Expiration Date V isits Requested Visits Authorized [id number] Closed Auto-Generate d Referral 06/16/2024 07/16/2025 1 1 * Diagnostic Procedure Only (Routine) - Closed Specialty Diagnoses / Procedures Referred By Contac t Referred To Contact XR IMAGING Diagnoses Pain of left thumb Procedures XR HAND GENERAL 3V PA/LAT/OBL LEFT RADEX HAND MINIMUM 3 VIEWS Avni Salcedo, DO [address] [place] [address] [place] [address] Referral ID Status Reason Start Date Expiration Date V isits Requested Visits Authorized [id number] Closed Auto-Generate d Referral 06/16/2024 07/16/2025 1 1 [facility] for referral (narrative)* Outpatient Procedure (Routine) - Authorized Specialty Diagnoses / Procedures Referred By Contac t Referred To Contact [facility] Diagnoses Asthma-COPD overlap syndrome (HCC) Procedures SPIROMETRY - BASELINE AND POST DILATOR BRNCDILAT RSPSE SPMTRY PRE&POST-BRNCDILAT Shayla Oconnor MD [address] [place] [address] [address] Referral ID Status Reason Start Date Expiration Date Visits Requested Visits Authorized [id number] Authorized Auto-Generat ed Referral 10/09/2024 11/08/2025 1 1 * Outpatient Procedure (Routine) - Authorized Specialty Diagnoses / Procedures Referred By Contac t Referred To Contact [facility] Diagnoses Asthma-COPD overlap syndrome (HCC) Procedures NITRIC OXIDE, EXHALED NITRIC OXIDE GAS DETERMINATION Shayla Rogers MD [address] [place] [address] [address] Referral ID Status Reason Start Date Expiration Date Visits Requested Visits Authorized [id number] Authorized Auto-Generat ed Referral 10/09/2024 11/08/2025 1 1 * Medication Prior Authorization - Closed Specialty Diagnoses / Procedures Referred By Contac t Referred To Contact Diagnoses Asthma-COPD overlap syndrome (HCC) Shayla Rogers MD [address] [place] [address] Referral ID Status Reason Start Date Expiration Date Visits Re quested Visits Authorized [id number] Closed 1 1 [facility] for visit Narrative* Diagnostic Procedure Only (Routine) - Closed Specialty Diagnoses / Procedures Referred By Contac t Referred To Contact Radiology / RADIO MRI [facility] Diagnoses MRI CERVICAL SPINE WO IVCON order in scanned doc Procedures MRI SPINAL CANAL CERVICAL W/O & W/CONTR MATRL MRI WO LORRAINE B 300 ALL Self [facility] [address] [place] [address] Referral ID Status Reason Start Date Expiration Date V isits Requested Visits Authorized [id number] Closed Patient Cleared INN/SMCP Payor Auth Obtained 10/18/2022 09/09/2023 1 1 [facility] for visit Narrative* Diagnostic Procedure Only (Routine) - Closed Specialty Diagnoses / Procedures Referred By Ange sheets Referred To Contact Radiology / RADIO MRI [facility] Diagnoses Sprain of right shoulder SPRAIN OF RIGHT SHOULDER JOINT / ADHESIVE CAPULITIS OF RIGHT SHOULDER Procedures MRI ANY JT UPPER EXTREMITY W/O CONTRAST MATRL MRI WO MSK2 SHLDR 300 ArletteNeva sanabria R [address] [facility] [address] [place] [address] Radio Mri [facility] [address] [place] [address] Referral ID Status Reason Start Date Expiration Date V isits Requested Visits Authorized [id number] Closed Clearance Not Met - Admin/Chairm an/Director Advise to Postpone/Res chedule or Not Proceed 01/16/2023 03/17/2023 1 1 [facility] for visit Narrative* Diagnostic Procedure Only (Routine) - Closed Specialty Diagnoses / Procedures Referred By Ange sheets Referred To Contact [facility] Diagnoses Screening for colon cancer Hyperlipidemia, mixed Gastroesophageal reflux disease, unspecified whether esophagitis present Irritable bowel syndrome with constipation Diarrhea, unspecified type Personal history of colonic polyps Procedures EGD DIAGNOSTIC ESOPHAGOGASTRODUODENOSC OPY TRANSORAL DIAGNOSTIC John Chowdhury MD [address] [address] [facility] [place] [address] [place] [address] Referral ID Status Reason Start Date Expiration Date V isits Requested Visits Authorized [id number] Closed Auto-Generated Referral Patient Cleared - INN Insurance Found 04/14/2024 09/09/2024 1 1 [facility] for visit Narrative* Diagnostic Procedure Only (Routine) - Closed Specialty Diagnoses / Procedures Referred By Ange sheets Referred To Contact XR IMAGING Diagnoses Acute pain of right shoulder Procedures XR SHOULDER GENERAL 3V OR MORE AP/TRUE AP/OTHER RIGHT RADEX SHOULDER COMPLETE MINIMUM 2 VIEWS Su Ham, DIGITAL ARCHIVIST.INFORMATION SECURITY MANAGER [address] [place] [address] [place] [address] Referral ID Status Reason Start Date Expiration Date V isits Requested Visits Authorized [id number] Closed Auto-Generate d Referral 11/01/2022 12/01/2023 1 1 [facility] for visit Narrative* Diagnostic Procedure Only (Routine) - Closed Specialty Diagnoses / Procedures Referred By Contac t Referred To Contact XR IMAGING Diagnoses Neck pain without injury Procedures XR CERV OTHER 4V AP/LAT/OBL RADEX SPINE CERVICAL 4 OR 5 VIEWS Avni Salcedo L, DO [address] [place] [id number] [place] [address] Referral ID Status Reason Start Date Expiration Date V isits Requested Visits Authorized [id number] Closed Auto-Generate d Referral 05/19/2022 09/09/2022 1 1 [facility] for visit Narrative* Diagnostic Procedure Only (Routine) - Closed Specialty Diagnoses / Procedures Referred By Contac t Referred To Contact XR IMAGING Diagnoses Acute pain of left knee Infected abrasion of left knee, initial encounter Procedures XR KNEE GENERAL 4V AP BOTH/PA BOTH/LAT/MERC LEFT RADIOLOGIC EXAM KNEE COMPLETE 4/MORE VIEWS Su Ham APRN.INFORMATION SECURITY MANAGER [address] [place] [address] [place] [address] Referral ID Status Reason Start Date Expiration Date V isits Requested Visits Authorized [id number] Closed Auto-Generate d Referral 11/11/2021 12/11/2022 1 1 [facility] for visit Narrative* Diagnostic Procedure Only (Urgent) - Closed Specialty Diagnoses / Procedures Referred By Contac t Referred To Contact XR IMAGING Diagnoses Acute right ankle pain Procedures XR ANKLE GENERAL 3V AP/LAT/OBL RIGHT X-RAY ANKLE MINIMUM 3 VIEWS Marce Menjivar, PA-C [address] [place] [address] [place] [address] Referral ID Status Reason Start Date Expiration Date V isits Requested Visits Authorized [id number] Closed Auto-Generate d Referral 07/28/2021 08/27/2022 1 1 [facility] for visit Narrative* Diagnostic Procedure Only (Routine) - Closed Specialty Diagnoses / Procedures Referred By Contac t Referred To Contact XR IMAGING Diagnoses Foot pain, left Procedures XR FOOT GENERAL 3V AP/LAT/OBL LEFT RADEX FOOT COMPLETE MINIMUM 3 VIEWS Avni Salcedo, DO [address] [place] [address] [place] [address] Referral ID Status Reason Start Date Expiration Date V isits Requested Visits Authorized [id number] Closed Auto-Generate d Referral 06/16/2024 07/16/2025 1 1 [facility] Diagnostic Procedure Only (Urgent) - Closed Specialty Diagnoses / Procedures Referred By Contac t Referred To Contact XR IMAGING Diagnoses Rib pain on left side Procedures XR RIBS/CHEST 3V AP RIB/OBLS/CXR LEFT RADEX RIBS UNI W/POSTEROANT CH MINIMUM 3 VIEWS Elmer White MD [address] [place] [address] Phone: tel: fax: [place] [address] Referral ID Status Reason Start Date Expiration Date V isits Requested Visits Authorized [id number] Closed Auto-Generate d Referral 01/12/2025 02/11/2026 1 1 [facility] Summary Purpose Family History Relationship Condition Age at Onset Recorded Date/T yolande Unknown Family History?Cancer Unknown November 30, 2016 5:38pm Family History?Cancer Unknown January 232017 4:07pm Advance Directives Advance Directive Response Recorded Date/ Time Advance Directives No January 14, 2016 7:51am Living Will No November 16, 2022 7:46pm Power of Butt Maker No November 16 7:46pm Reason for Referral Specialty Diagnoses / Procedures Referred By Contac t Referred To Contact [facility] Diagnoses Neck pain without injury Procedures CONSULT TO PHYSICAL THERAPY PHYSICAL THERAPY EVALUATION HIGH COMPLEX 45 MINS Su Bass, DIGITAL ARCHIVIST.INFORMATION SECURITY MANAGER [address] [place] [address] [facility] [place] [address] [place] [address] Referral ID Status Reason Start Date Expiration Date Visits Requested Visits Authorized [id number] Authorized Auto-Generat ed Referral 12/09/2021 09/09/2022 30 30 Specialty Diagnoses / Procedures Referred By Contac t Referred To Contact CT IMAGING Diagnoses Localized swelling, mass and lump, neck Neck pain without injury Localized enlarged lymph nodes Procedures CT NECK SOFT TISSUE W IVCON CT SOFT TISSUE NECK W/CONTRAST MATERIAL Avni Salcedo, DO [address] [place] [address] Ct Imaging Referral ID Status Reason Start Date Expiration Date V isits Requested Visits Authorized [id number] Closed Auto-Generate d Referral 05/19/2022 06/18/2023 1 1 Specialty Diagnoses / Procedures Referred By Contac t Referred To Contact Pain Management Diagnoses Cervical radiculopathy Cervical disc disorder at C4-C5 level with radiculopathy Procedures CONSULT TO PAIN MGT OFFICE/OUTPATIENT [facility] 60-74 MINUTES Avni Salcedo L, DO [address] [place] [address] Referral ID Status Reason Start Date Expiration Date Visits Requested Visits Authorized [id number] Pending Review PCP Requested Referral 07/10/2023 1 1 Specialty Diagnoses / Procedures Referred By Contac t Referred To Contact CT IMAGING Diagnoses Wheezing Bronchitis Procedures CT CHEST WO IVCON DIAGNOSTIC COMPUTED TOMOGRAPHY THORAX W/O CNTRST Su Ham, DIGITAL ARCHIVIST.INFORMATION SECURITY MANAGER [address] [place] [address] Ct Imaging Referral ID Status Reason Start Date Expiration Date Visits Requested Visits Authorized [id number] Pending Review Auto-Generat ed Referral 09/22/2022 10/22/2023 1 1 Specialty Diagnoses / Procedures Referred By Contac t Referred To Contact Orthopedics Diagnoses Acute pain of right shoulder Procedures CONSULT TO ORTHOPAEDICS OFFICE/OUTPATIENT [facility] 60-74 MINUTES Su Ham, ANA.INFORMATION SECURITY MANAGER [address] [place] [address] Referral ID Status Reason Start Date Expiration Date Visits Requested Visits Authorized [id number] Pending Review PCP Requested Referral 11/10/2022 11/10/2023 1 1 Specialty Diagnoses / Procedures Referred By Contac t Referred To Contact CT IMAGING Diagnoses Wheezing Bronchitis Procedures CT CHEST WO IVCON DIAGNOSTIC COMPUTED TOMOGRAPHY THORAX W/O CNTRST Su Ham, DIGITAL ARCHIVIST.INFORMATION SECURITY MANAGER [address] [place] [address] [place] [address] Referral ID Status Reason Start Date Expiration Date V isits Requested Visits Authorized [id number] Closed Auto-Generate d Referral 09/25/2022 11/24/2022 1 1 Specialty Diagnoses / Procedures Referred By Contac t Referred To Contact General Surgery Diagnoses Screening for colon cancer Procedures CONSULT TO GENERAL SURGERY OFFICE/OUTPATIENT [facility] 60 MINUTES Su Ham, DIGITAL ARCHIVIST.INFORMATION SECURITY MANAGER [address] [place] [address] Referral ID Status Reason Start Date Expiration Date Visits Requested Visits Authorized [id number] Authorized PCP Requested Referral 01/31/2024 01/30/2025 1 1 Specialty Diagnoses / Procedures Referred By Contac t Referred To Contact [facility] Diagnoses Screening for colon cancer Hyperlipidemia, mixed Gastroesophageal reflux disease, unspecified whether esophagitis present Irritable bowel syndrome with constipation Diarrhea, unspecified type Personal history of colonic polyps Procedures EGD DIAGNOSTIC ESOPHAGOGASTRODUODENOSC OPY TRANSORAL DIAGNOSTIC John Chowdhury MD [address] [place] [address] [facility] Disease [address] [address] Referral ID Status Reason Start Date Expiration Date Visits Requested Visits Authorized [id number] Authorized Auto-Generate d Referral Patient Cleared - Qualified 100% FAS 02/08/2024 05/08/2024 99 99 Specialty Diagnoses / Procedures Referred By Contac t Referred To Contact [facility] [place] Diagnoses Screening for colon cancer Hyperlipidemia, mixed Gastroesophageal reflux disease, unspecified whether esophagitis present Irritable bowel syndrome with constipation Diarrhea, unspecified type Personal history of colonic polyps Procedures COLONOSCOPY SCREENING COLONOSCOPY SCREENING COLONOSCOPY FLX DX W/COLLJ SPEC WHEN PFRMD John Chowdhury MD [address] [place] [address] [facility] Disease [place] [id number] Referral ID Status Reason Start Date Expiration Date Visits Requested Visits Authorized [id number] Pending Review Auto-Generat ed Referral 02/08/2024 02/07/2025 1 1 Specialty Diagnoses / Procedures Referred By Contac t Referred To Contact Diagnoses External hemorrhoid Su Ham, DIGITAL ARCHIVIST.INFORMATION SECURITY MANAGER [address] [place] [address] Referral ID Status Reason Start Date Expiration Date V isits Requested Visits Authorized [id number] Pending Review 1 1 Specialty Diagnoses / Procedures Referred By Contac t Referred To Contact Diagnoses Asthma, moderate persistent, well-controlled Chronic allergic rhinitis Allyson Gonzalez PA-C [address] [place] [address] Referral ID Status Reason Start Date Expiration Date V isits Requested Visits Authorized [id number] Authorized 10/06/2024 10/05/2025 1 1 Specialty Diagnoses / Procedures Referred By Contac t Referred To Contact CT IMAGING Diagnoses Tobacco abuse Encounter for screening for lung cancer Procedures CT LUNG SCREEN WO IVCON COMPUTED TOMOGRAPHY THORAX LW DOSE LNG CA Elmira Davila, DIGITAL ARCHIVIST.INFORMATION SECURITY MANAGER [address] [place] [id number] [place] [address] Referral ID Status Reason Start Date Expiration Date Visits Requested Visits Authorized [id number] Pending Review Auto-Generat ed Referral 10/06/2024 11/05/2025 [...] section and content) DATE CREATED AUTHOR 03/[facility] DATE CREATED AUTHOR AUTHOR'S ORGANIZ ATION 03/05/2018 [facility] DATE CREATED AUTHOR AUTHOR'S ORGANIZ ATION 10/15/2018 [facility] DATE CREATED AUTHOR AUTHOR'S ORGANIZ ATION 04/27/2024 [facility] DATE CREATED AUTHOR AUTHOR'S ORGANIZ ATION 01/05/2025 [facility] DATE CREATED AUTHOR AUTHOR'S ORGANIZ ATION 02/07/2025 [facility] DATE CREATED AUTHOR AUTHOR'S ORGANIZ ATION 02/11/2025 [facility] nter Source Comments (unrecognize d section and content) In the event this informatio n is protected by the Federal Confidentiality of Alcohol and Drug Abuse Patient Records regulations: The Federal rules restrict any use of the information to criminally investigate or prosecute any alcohol or drug abuse patient.[facility] the event this information is protected by the Federal Confidentiality of Alcohol and Drug Abuse Patient Records regulations: The Federal rules restrict any use of the information to criminally investigate or prosecute any alcohol or drug abuse patient.[facility] the event this information is protected by the Federal Confidentiality of Alcohol and Drug Abuse Patient Records regulations: The Federal rules restrict any use of the information to criminally investigate or prosecute any alcohol or drug abuse patient.[facility] the event this information is protected by the Federal Confidentiality of Alcohol and Drug Abuse Patient Records regulations: The Federal rules restrict any use of the information to criminally investigate or prosecute any alcohol or drug abuse patient.[facility] the event this information is protected by the Federal Confidentiality of Alcohol and Drug Abuse Patient Records regulations: The Federal rules restrict any use of the information to criminally investigate or prosecute any alcohol or drug abuse patient.[facility] the event this information is protected by the Federal Confidentiality of Alcohol and Drug Abuse Patient Records regulations: The Federal rules restrict any use of the information to criminally investigate or prosecute any alcohol or drug abuse patient.[facility] the event this information is protected by the Federal Confidentiality of Alcohol and Drug Abuse Patient Records regulations: The Federal rules restrict any use of the information to criminally investigate or prosecute any alcohol or drug abuse patient.[facility] the event this information is protected by the Federal Confidentiality of Alcohol and Drug Abuse Patient Records regulations: The Federal rules restrict any use of the information to criminally investigate or prosecute any alcohol or drug abuse patient.[facility] HospitalIn the event this information is protected by the Federal Confidentiality of Alcohol and Drug Abuse Patient Records regulations: The Federal rules restrict any use of the information to criminally investigate or prosecute any alcohol or drug abuse patient.[facility] HospitalIn the event this information is protected by the Federal Confidentiality of Alcohol and Drug Abuse Patient Records regulations: The Federal rules restrict any use of the information to criminally investigate or prosecute any alcohol or drug abuse patient.[facility] HospitalIn the event this information is protected by the Federal Confidentiality of Alcohol and Drug Abuse Patient Records regulations: The Federal rules restrict any use of the information to criminally investigate or prosecute any alcohol or drug abuse patient.[facility] HospitalIn the event this information is protected by the Federal Confidentiality of Alcohol and Drug Abuse Patient Records regulations: The Federal rules restrict any use of the information to criminally investigate or prosecute any alcohol or drug abuse patient.[facility] HospitalIn the event this information is protected by the Federal Confidentiality of Alcohol and Drug Abuse Patient Records regulations: The Federal rules restrict any use of the information to criminally investigate or prosecute any alcohol or drug abuse patient.[facility] HospitalIn the event this information is protected by the Federal Confidentiality of Alcohol and Drug Abuse Patient Records regulations: The Federal rules restrict any use of the information to criminally investigate or prosecute any alcohol or drug abuse patient.[facility] HospitalIn the event this information is protected by the Federal Confidentiality of Alcohol and Drug Abuse Patient Records regulations: The Federal rules restrict any use of the information to criminally investigate or prosecute any alcohol or drug abuse patient.[facility] HospitalIn the event this information is protected by the Federal Confidentiality of Alcohol and Drug Abuse Patient Records regulations: The Federal rules restrict any use of the information to criminally investigate or prosecute any alcohol or drug abuse patient.[facility] HospitalIn the event this information is protected by the Federal Confidentiality of Alcohol and Drug Abuse Patient Records regulations: The Federal rules restrict any use of the information to criminally investigate or prosecute any alcohol or drug abuse patient.[facility] HospitalIn the event this information is protected by the Federal Confidentiality of Alcohol and Drug Abuse Patient Records regulations: The Federal rules restrict any use of the information to criminally investigate or prosecute any alcohol or drug abuse patient.[facility] HospitalIn the event this information is protected by the Federal Confidentiality of Alcohol and Drug Abuse Patient Records regulations: The Federal rules restrict any use of the information to criminally investigate or prosecute any alcohol or drug abuse patient.[facility] HospitalIn the event this information is protected by the Federal Confidentiality of Alcohol and Drug Abuse Patient Records regulations: The Federal rules restrict any use of the information to criminally investigate or prosecute any alcohol or drug abuse patient.[facility] HospitalIn the event this information is protected by the Federal Confidentiality of Alcohol and Drug Abuse Patient Records regulations: The Federal rules restrict any use of the information to criminally investigate or prosecute any alcohol or drug abuse patient.[facility] HospitalIn the event this information is protected by the Federal Confidentiality of Alcohol and Drug Abuse Patient Records regulations: The Federal rules restrict any use of the information to criminally investigate or prosecute any alcohol or drug abuse patient.[facility] HospitalIn the event this information is protected by the Federal Confidentiality of Alcohol and Drug Abuse Patient Records regulations: The Federal rules restrict any use of the information to criminally investigate or prosecute any alcohol or drug abuse patient.[facility] HospitalIn the event this information is protected by the Federal Confidentiality of Alcohol and Drug Abuse Patient Records regulations: The Federal rules restrict any use of the information to criminally investigate or prosecute any alcohol or drug abuse patient.[facility] HospitalIn the event this information is protected by the Federal Confidentiality of Alcohol and Drug Abuse Patient Records regulations: The Federal rules restrict any use of the information to criminally investigate or prosecute any alcohol or drug abuse patient.[facility] HospitalIn the event this information is protected by the Federal Confidentiality of Alcohol and Drug Abuse Patient Records regulations: The Federal rules restrict any use of the information to criminally investigate or prosecute any alcohol or drug abuse patient.[facility] HospitalIn the event this information is protected by the Federal Confidentiality of Alcohol and Drug Abuse Patient Records regulations: The Federal rules restrict any use of the information to criminally investigate or prosecute any alcohol or drug abuse patient.[facility] HospitalIn the event this information is protected by the Federal Confidentiality of Alcohol and Drug Abuse Patient Records regulations: The Federal rules restrict any use of the information to criminally investigate or prosecute any alcohol or drug abuse patient.[facility] HospitalIn the event this information is protected by the Federal Confidentiality of Alcohol and Drug Abuse Patient Records regulations: The Federal rules restrict any use of the information to criminally investigate or prosecute any alcohol or drug abuse patient.[facility] HospitalIn the event this information is protected by the Federal Confidentiality of Alcohol and Drug Abuse Patient Records regulations: The Federal rules restrict any use of the information to criminally investigate or prosecute any alcohol or drug abuse patient.[facility] HospitalIn the event this information is protected by the Federal Confidentiality of Alcohol and Drug Abuse Patient Records regulations: The Federal rules restrict any use of the information to criminally investigate or prosecute any alcohol or drug abuse patient.[facility] HospitalIn the event this information is protected by the Federal Confidentiality of Alcohol and Drug Abuse Patient Records regulations: The Federal rules restrict any use of the information to criminally investigate or prosecute any alcohol or drug abuse patient.[facility] HospitalIn the event this information is protected by the Federal Confidentiality of Alcohol and Drug Abuse Patient Records regulations: The Federal rules restrict any use of the information to criminally investigate or prosecute any alcohol or drug abuse patient.[facility] HospitalIn the event this information is protected by the Federal Confidentiality of Alcohol and Drug Abuse Patient Records regulations: The Federal rules restrict any use of the information to criminally investigate or prosecute any alcohol or drug abuse patient.[facility] HospitalIn the event this information is protected by the Federal Confidentiality of Alcohol and Drug Abuse Patient Records regulations: The Federal rules restrict any use of the information to criminally investigate or prosecute any alcohol or drug abuse patient.[facility] HospitalIn the event this information is protected by the Federal Confidentiality of Alcohol and Drug Abuse Patient Records regulations: The Federal rules restrict any use of the information to criminally investigate or prosecute any alcohol or drug abuse patient.[facility] HospitalIn the event this information is protected by the Federal Confidentiality of Alcohol and Drug Abuse Patient Records regulations: The Federal rules restrict any use of the information to criminally investigate or prosecute any alcohol or drug abuse patient.[facility] HospitalIn the event this information is protected by the Federal Confidentiality of Alcohol and Drug Abuse Patient Records regulations: The Federal rules restrict any use of the information to criminally investigate or prosecute any alcohol or drug abuse patient.[facility] HospitalIn the event this information is protected by the Federal Confidentiality of Alcohol and Drug Abuse Patient Records regulations: The Federal rules restrict any use of the information to criminally investigate or prosecute any alcohol or drug abuse patient.[facility] HospitalIn the event this information is protected by the Federal Confidentiality of Alcohol and Drug Abuse Patient Records regulations: The Federal rules restrict any use of the information to criminally investigate or prosecute any alcohol or drug abuse patient.[facility] HospitalIn the event this information is protected by the Federal Confidentiality of Alcohol and Drug Abuse Patient Records regulations: The Federal rules restrict any use of the information to criminally investigate or prosecute any alcohol or drug abuse patient.[facility] HospitalIn the event this information is protected by the Federal Confidentiality of Alcohol and Drug Abuse Patient Records regulations: The Federal rules restrict any use of the information to criminally investigate or prosecute any alcohol or drug abuse patient.[facility] HospitalIn the event this information is protected by the Federal Confidentiality of Alcohol and Drug Abuse Patient Records regulations: The Federal rules restrict any use of the information to criminally investigate or prosecute any alcohol or drug abuse patient.[facility] HospitalIn the event this information is protected by the Federal Confidentiality of Alcohol and Drug Abuse Patient Records regulations: The Federal rules restrict any use of the information to criminally investigate or prosecute any alcohol or drug abuse patient.[facility] HospitalIn the event this information is protected by the Federal Confidentiality of Alcohol and Drug Abuse Patient Records regulations: The Federal rules restrict any use of the information to criminally investigate or prosecute any alcohol or drug abuse patient.[facility] HospitalIn the event this information is protected by the Federal Confidentiality of Alcohol and Drug Abuse Patient Records regulations: The Federal rules restrict any use of the information to criminally investigate or prosecute any alcohol or drug abuse patient.[facility] HospitalIn the event this information is protected by the Federal Confidentiality of Alcohol and Drug Abuse Patient Records regulations: The Federal rules restrict any use of the information to criminally investigate or prosecute any alcohol or drug abuse patient.[facility] HospitalIn the event this information is protected by the Federal Confidentiality of Alcohol and Drug Abuse Patient Records regulations: The Federal rules restrict any use of the information to criminally investigate or prosecute any alcohol or drug abuse patient.[facility] HospitalIn the event this information is protected by the Federal Confidentiality of Alcohol and Drug Abuse Patient Records regulations: The Federal rules restrict any use of the information to criminally investigate or prosecute any alcohol or drug abuse patient.[facility] HospitalIn the event this information is protected by the Federal Confidentiality of Alcohol and Drug Abuse Patient Records regulations: The Federal rules restrict any use of the information to criminally investigate or prosecute any alcohol or drug abuse patient.[facility] HospitalIn the event this information is protected by the Federal Confidentiality of Alcohol and Drug Abuse Patient Records regulations: The Federal rules restrict any use of the information to criminally investigate or prosecute any alcohol or drug abuse patient.[facility] HospitalIn the event this information is protected by the Federal Confidentiality of Alcohol and Drug Abuse Patient Records regulations: The Federal rules restrict any use of the information to criminally investigate or prosecute any alcohol or drug abuse patient.[facility] HospitalIn the event this information is protected by the Federal Confidentiality of Alcohol and Drug Abuse Patient Records regulations: The Federal rules restrict any use of the information to criminally investigate or prosecute any alcohol or drug abuse patient.[facility] HospitalIn the event this information is protected by the Federal Confidentiality of Alcohol and Drug Abuse Patient Records regulations: The Federal rules restrict any use of the information to criminally investigate or prosecute any alcohol or drug abuse patient.[facility] HospitalIn the event this information is protected by the Federal Confidentiality of Alcohol and Drug Abuse Patient Records regulations: The Federal rules restrict any use of the information to criminally investigate or prosecute any alcohol or drug abuse patient.[facility] HospitalIn the event this information is protected by the Federal Confidentiality of Alcohol and Drug Abuse Patient Records regulations: The Federal rules restrict any use of the information to criminally investigate or prosecute any alcohol or drug abuse patient.[facility] HospitalIn the event this information is protected by the Federal Confidentiality of Alcohol and Drug Abuse Patient Records regulations: The Federal rules restrict any use of the information to criminally investigate or prosecute any alcohol or drug abuse patient.[facility] HospitalIn the event this information is protected by the Federal Confidentiality of Alcohol and Drug Abuse Patient Records regulations: The Federal rules restrict any use of the information to criminally investigate or prosecute any alcohol or drug abuse patient.[facility] HospitalIn the event this information is protected by the Federal Confidentiality of Alcohol and Drug Abuse Patient Records regulations: The Federal rules restrict any use of the information to criminally investigate or prosecute any alcohol or drug abuse patient.[facility] HospitalIn the event this information is protected by the Federal Confidentiality of Alcohol and Drug Abuse Patient Records regulations: The Federal rules restrict any use of the information to criminally investigate or prosecute any alcohol or drug abuse patient.[facility] HospitalIn the event this information is protected by the Federal Confidentiality of Alcohol and Drug Abuse Patient Records regulations: The Federal rules restrict any use of the information to criminally investigate or prosecute any alcohol or drug abuse patient.[facility] HospitalIn the event this information is protected by the Federal Confidentiality of Alcohol and Drug Abuse Patient Records regulations: The Federal rules restrict any use of the information to criminally investigate or prosecute any alcohol or drug abuse patient.[facility] HospitalIn the event this information is protected by the Federal Confidentiality of Alcohol and Drug Abuse Patient Records regulations: The Federal rules restrict any use of the information to criminally investigate or prosecute any alcohol or drug abuse patient.[facility] HospitalIn the event this information is protected by the Federal Confidentiality of Alcohol and Drug Abuse Patient Records regulations: The Federal rules restrict any use of the information to criminally investigate or prosecute any alcohol or drug abuse patient.[facility] HospitalIn the event this information is protected by the Federal Confidentiality of Alcohol and Drug Abuse Patient Records regulations: The Federal rules restrict any use of the information to criminally investigate or prosecute any alcohol or drug abuse patient.[facility] HospitalIn the event this information is protected by the Federal Confidentiality of Alcohol and Drug Abuse Patient Records regulations: The Federal rules restrict any use of the information to criminally investigate or prosecute any alcohol or drug abuse patient.[facility] HospitalIn the event this information is protected by the Federal Confidentiality of Alcohol and Drug Abuse Patient Records regulations: The Federal rules restrict any use of the information to criminally investigate or prosecute any alcohol or drug abuse patient.[facility] HospitalIn the event this information is protected by the Federal Confidentiality of Alcohol and Drug Abuse Patient Records regulations: The Federal rules restrict any use of the information to criminally investigate or prosecute any alcohol or drug abuse patient.[facility] HospitalIn the event this information is protected by the Federal Confidentiality of Alcohol and Drug Abuse Patient Records regulations: The Federal rules restrict any use of the information to criminally investigate or prosecute any alcohol or drug abuse patient.[facility] HospitalIn the event this information is protected by the Federal Confidentiality of Alcohol and Drug Abuse Patient Records regulations: The Federal rules restrict any use of the information to criminally investigate or prosecute any alcohol or drug abuse patient.[facility] HospitalIn the event this information is protected by the Federal Confidentiality of Alcohol and Drug Abuse Patient Records regulations: The Federal rules restrict any use of the information to criminally investigate or prosecute any alcohol or drug abuse patient.[facility] HospitalIn the event this information is protected by the Federal Confidentiality of Alcohol and Drug Abuse Patient Records regulations: The Federal rules restrict any use of the information to criminally investigate or prosecute any alcohol or drug abuse patient.[facility] HospitalIn the event this information is protected by the Federal Confidentiality of Alcohol and Drug Abuse Patient Records regulations: The Federal rules restrict any use of the information to criminally investigate or prosecute any alcohol or drug abuse patient.[facility] HospitalIn the event this information is protected by the Federal Confidentiality of Alcohol and Drug Abuse Patient Records regulations: The Federal rules restrict any use of the information to criminally investigate or prosecute any alcohol or drug abuse patient.[facility] HospitalIn the event this information is protected by the Federal Confidentiality of Alcohol and Drug Abuse Patient Records regulations: The Federal rules restrict any use of the information to criminally investigate or prosecute any alcohol or drug abuse patient.[facility] HospitalIn the event this information is protected by the Federal Confidentiality of Alcohol and Drug Abuse Patient Records regulations: The Federal rules restrict any use of the information to criminally investigate or prosecute any alcohol or drug abuse patient.[facility] HospitalIn the event this information is protected by the Federal Confidentiality of Alcohol and Drug Abuse Patient Records regulations: The Federal rules restrict any use of the information to criminally investigate or prosecute any alcohol or drug abuse patient.[facility] HospitalIn the event this information is protected by the Federal Confidentiality of Alcohol and Drug Abuse Patient Records regulations: The Federal rules restrict any use of the information to criminally investigate or prosecute any alcohol or drug abuse patient.[facility] HospitalIn the event this information is protected by the Federal Confidentiality of Alcohol and Drug Abuse Patient Records regulations: The Federal rules restrict any use of the information to criminally investigate or prosecute any alcohol or drug abuse patient.[facility] HospitalIn the event this information is protected by the Federal Confidentiality of Alcohol and Drug Abuse Patient Records regulations: The Federal rules restrict any use of the information to criminally investigate or prosecute any alcohol or drug abuse patient.[facility] HospitalIn the event this information is protected by the Federal Confidentiality of Alcohol and Drug Abuse Patient Records regulations: The Federal rules restrict any use of the information to criminally investigate or prosecute any alcohol or drug abuse patient.[facility] HospitalIn the event this information is protected by the Federal Confidentiality of Alcohol and Drug Abuse Patient Records regulations: The Federal rules restrict any use of the information to criminally investigate or prosecute any alcohol or drug abuse patient.[facility] HospitalIn the event this information is protected by the Federal Confidentiality of Alcohol and Drug Abuse Patient Records regulations: The Federal rules restrict any use of the information to criminally investigate or prosecute any alcohol or drug abuse patient.[facility] HospitalIn the event this information is protected by the Federal Confidentiality of Alcohol and Drug Abuse Patient Records regulations: The Federal rules restrict any use of the information to criminally investigate or prosecute any alcohol or drug abuse patient.[facility] HospitalIn the event this information is protected by the Federal Confidentiality of Alcohol and Drug Abuse Patient Records regulations: The Federal rules restrict any use of the information to criminally investigate or prosecute any alcohol or drug abuse patient.[facility] HospitalIn the event this information is protected by the Federal Confidentiality of Alcohol and Drug Abuse Patient Records regulations: The Federal rules restrict any use of the information to criminally investigate or prosecute any alcohol or drug abuse patient.[facility] HospitalIn the event this information is protected by the Federal Confidentiality of Alcohol and Drug Abuse Patient Records regulations: The Federal rules restrict any use of the information to criminally investigate or prosecute any alcohol or drug abuse patient.[facility] HospitalIn the event this information is protected by the Federal Confidentiality of Alcohol and Drug Abuse Patient Records regulations: The Federal rules restrict any use of the information to criminally investigate or prosecute any alcohol or drug abuse patient.[facility] HospitalIn the event this information is protected by the Federal Confidentiality of Alcohol and Drug Abuse Patient Records regulations: The Federal rules restrict any use of the information to criminally investigate or prosecute any alcohol or drug abuse patient.[facility] HospitalIn the event this information is protected by the Federal Confidentiality of Alcohol and Drug Abuse Patient Records regulations: The Federal rules restrict any use of the information to criminally investigate or prosecute any alcohol or drug abuse patient.[facility] HospitalIn the event this information is protected by the Federal Confidentiality of Alcohol and Drug Abuse Patient Records regulations: The Federal rules restrict any use of the information to criminally investigate or prosecute any alcohol or drug abuse patient.[facility] HospitalIn the event this information is protected by the Federal Confidentiality of Alcohol and Drug Abuse Patient Records regulations: The Federal rules restrict any use of the information to criminally investigate or prosecute any alcohol or drug abuse patient.[facility] HospitalIn the event this information is protected by the Federal Confidentiality of Alcohol and Drug Abuse Patient Records regulations: The Federal rules restrict any use of the information to criminally investigate or prosecute any alcohol or drug abuse patient.[facility] HospitalIn the event this information is protected by the Federal Confidentiality of Alcohol and Drug Abuse Patient Records regulations: The Federal rules restrict any use of the information to criminally investigate or prosecute any alcohol or drug abuse patient.[facility] HospitalIn the event this information is protected by the Federal Confidentiality of Alcohol and Drug Abuse Patient Records regulations: The Federal rules restrict any use of the information to criminally investigate or prosecute any alcohol or drug abuse patient.[facility] HospitalIn the event this information is protected by the Federal Confidentiality of Alcohol and Drug Abuse Patient Records regulations: The Federal rules restrict any use of the information to criminally investigate or prosecute any alcohol or drug abuse patient.[facility] HospitalIn the event this information is protected by the Federal Confidentiality of Alcohol and Drug Abuse Patient Records regulations: The Federal rules restrict any use of the information to criminally investigate or prosecute any alcohol or drug abuse patient.[facility] HospitalIn the event this information is protected by the Federal Confidentiality of Alcohol and Drug Abuse Patient Records regulations: The Federal rules restrict any use of the information to criminally investigate or prosecute any alcohol or drug abuse patient.[facility] HospitalIn the event this information is protected by the Federal Confidentiality of Alcohol and Drug Abuse Patient Records regulations: The Federal rules restrict any use of the information to criminally investigate or prosecute any alcohol or drug abuse patient.[facility] HospitalIn the event this information is protected by the Federal Confidentiality of Alcohol and Drug Abuse Patient Records regulations: The Federal rules restrict any use of the information to criminally investigate or prosecute any alcohol or drug abuse patient.[facility] HospitalIn the event this information is protected by the Federal Confidentiality of Alcohol and Drug Abuse Patient Records regulations: The Federal rules restrict any use of the information to criminally investigate or prosecute any alcohol or drug abuse patient.[facility] HospitalIn the event this information is protected by the Federal Confidentiality of Alcohol and Drug Abuse Patient Records regulations: The Federal rules restrict any use of the information to criminally investigate or prosecute any alcohol or drug abuse patient.[facility] HospitalIn the event this information is protected by the Federal Confidentiality of Alcohol and Drug Abuse Patient Records regulations: The Federal rules restrict any use of the information to criminally investigate or prosecute any alcohol or drug abuse patient.[facility] HospitalIn the event this information is protected by the Federal Confidentiality of Alcohol and Drug Abuse Patient Records regulations: The Federal rules restrict any use of the information to criminally investigate or prosecute any alcohol or drug abuse patient.[facility] HospitalIn the event this information is protected by the Federal Confidentiality of Alcohol and Drug Abuse Patient Records regulations: The Federal rules restrict any use of the information to criminally investigate or prosecute any alcohol or drug abuse patient.[facility] HospitalIn the event this information is protected by the Federal Confidentiality of Alcohol and Drug Abuse Patient Records regulations: The Federal rules restrict any use of the information to criminally investigate or prosecute any alcohol or drug abuse patient.[facility] Reason for Visit (unrecogniz ed section and content) Reason Comments Radiology CT Specialty Diagnoses / Procedures Referred By Ange sheets Referred To Contact CT IMAGING Diagnoses Wheezing Bronchitis Procedures CT CHEST WO IVCON DIAGNOSTIC COMPUTED TOMOGRAPHY THORAX W/O CNTRST Su Ham, DIGITAL ARCHIVIST.INFORMATION SECURITY MANAGER [address] [place] [address] [place] [address] Referral ID Status Reason Start Date Expiration Date V isits Requested Visits Authorized [id number] Closed Auto-Generate d Referral 09/25/2022 11/24/2022 1 1 Reason Comments PT Discharge Specialty Diagnoses / Procedures Referred By Contac t Referred To Contact [facility] Diagnoses Neck pain without injury Procedures CONSULT TO PHYSICAL THERAPY PHYSICAL THERAPY EVALUATION HIGH COMPLEX 45 MINS Su Bass APRN.INFORMATION SECURITY MANAGER [address] [place] [address] [facility] [address] [place] [address] Referral ID Status Reason Start Date Expiration Date Visits Requested Visits Authorized [id number] Authorized Auto-Generat ed Referral 12/09/2021 09/09/2022 30 30 Reason Comments Physical Therapy Reason Comments Employment Physical Specialty Diagnoses / Procedures Referred By Contac t Referred To Contact Family Practice / FAMILY MEDICINE Diagnoses DOT PHYSICAL Procedures OFFICE/OUTPATIENT NEW MODERATE MDM 45-59 MINUTES 4C DOT PHYSICAL Self Lita Ludwig PA-C [address] [place] [address] Referral ID Status Reason Start Date Expiration Date Visits Re quested Visits Authorized [id number] Closed 12/12/2021 09/09/2022 1 1 Reason Onset [...] MYC OFFICE VISIT Miki, Avni Hoffmann DO [address] [place] [address] Referral ID Status Reason Start Date Expiration Date Visits Re quested Visits Authorized [id number] Closed 05/19/2022 09/09/2022 1 1 Reason Comments Results Reason Comments PT Eval Specialty Diagnoses / Procedures Referred By Contac t Referred To Contact Radiology / RADIO CT SCAN [facility] Diagnoses Dx: Localized swelling, mass and lump, neck [R22.1]; Neck pain without injury [M54.2]; Localized enlarged lymph nodes [R59.0] Patient calling to move this up as he got approval [id number] 06/01/2022 - 07/21/[address] SOFT TISSUE NECK W/CONTRAST MATERIAL CT WWO LORRAINE B 400 Avni Salcedo, DO [address] [place] [address] Scan [facility] [address] [place] [id number] Referral ID Status Reason Start Date Expiration Date Visits Requested Visits Authorized [id number] Waiting for Response Patient Cleared - Admin/Chair [...] Procedures 4C EST Self Avni Salcedo, DO [address] [place] [address] Referral ID Status Reason Start Date Expiration Date Visits Re quested Visits Authorized [id number] Closed 10/11/2022 09/09/2023 1 1 Reason Comments Spirometry Specialty Diagnoses / Procedures Referred By Contac t Referred To Contact [facility] Diagnoses Bronchitis Asthma, moderate persistent, well-controlled Sarcoidosis of lung (HCC) Procedures SPIROMETRY - BASELINE AND POST DILATOR BRNCDILAT RSPSE SPMTRY PRE&POST-BRNCDILAT Su Hou APRN.INFORMATION SECURITY MANAGER [address] [place] [address] [facility] [address] [place] [address] Referral ID Status Reason Start Date Expiration Date V isits Requested Visits Authorized [id number] Closed Auto-Generate d Referral 10/02/2022 11/01/2023 1 1 Specialty Diagnoses / Procedures Referred By Ange t Referred To Contact [facility] Diagnoses Bronchitis Asthma, moderate persistent, well-controlled Sarcoidosis of lung (HCC) Procedures LUNG VOLUMES Su Ham, DIGITAL ARCHIVIST.INFORMATION SECURITY MANAGER [address] [place] [address] [facility] [address] [place] [address] Referral ID Status Reason Start Date Expiration Date V isits Requested Visits Authorized [id number] Closed Auto-Generate d Referral 10/13/2022 09/09/2023 1 [...] meds Specialty Diagnoses / Procedures Referred By Ange t Referred To Contact [facility] Diagnoses Encounter to establish care Procedures OFFICE/OP CONSLTJ NEW/EST PT MOD MDM 40 MINUTES Self [facility] [place] [address] Referral ID Status Reason Start Date Expiration Date Visits Requested Visits Authorized [id number] Authorized Patient Cleared - Qualified 100% FAS 01/30/2024 04/29/2024 99 99 Reason Comments Consult Screening for colon cancer Specialty Diagnoses / Procedures Referred By Ange t Referred To Contact General Surgery Diagnoses Screening for colon cancer Procedures CONSULT TO GENERAL SURGERY OFFICE/OUTPATIENT NEW HIGH MDM 60 MINUTES Su Ham, DIGITAL ARCHIVIST.INFORMATION SECURITY MANAGER [address] [place] [address] Referral ID Status Reason Start Date Expiration Date V isits Requested Visits Authorized [id number] Closed PCP Requested Referral 01/31/2024 01/30/2025 1 1 Reason Onset Date Comments Refill Request 02/20/2024 Reason Comments BP Check Specialty Diagnoses / Procedures Referred By Contac t Referred To Contact [facility] Diagnoses Encounter to establish care Procedures OFFICE/OP CONSLTJ NEW/EST PT MOD MDM 40 MINUTES Self [facility] [address] Reason Comments Follow Up Review EGD and colon oscopy results. Reason Onset Date Comments Refill Request 04/28/2024 Reason Onset Date Comments Refill Request 06/06/2024 Reason Comments Radiology XR Specialty Diagnoses / Procedures Referred By Contac t Referred To Contact [facility] Diagnoses fatigue, sob, cough, sinus and headache Procedures consult Elsie Johansen PA-C [address] [place] [address] [facility] [address] [place] [address] Referral ID Status Reason Start Date Expiration Date V isits Requested Visits Authorized [id number] Closed OON/Self Pay Override 09/23/2020 12/22/2020 1 1 Reason Comments Follow Up Reason Comments Radiology CT Specialty Diagnoses / Procedures Referred By Contac t Referred To Contact CT IMAGING Diagnoses Pulmonary nodule Procedures CT CHEST WO IVCON DIAGNOSTIC COMPUTED TOMOGRAPHY THORAX W/O CNTRST Avni Salcedo, DO [address] [place] [address] [place] [address] Referral ID Status Reason Start Date Expiration Date V isits Requested Visits Authorized [id number] Closed Auto-Generat ed Referral Patient Cleared - [...] t Referred To Contact [facility] Diagnoses Asthma-COPD overlap syndrome (HCC) Procedures NITRIC OXIDE, EXHALED NITRIC OXIDE GAS DETERMINATION Shayla Rogers MD [address] [place] [address] Phone: tel: fax: [facility] [address] [place] [address] Referral ID Status Reason Start Date Expiration Date V isits Requested Visits Authorized [id number] Closed Auto-Generate d Referral 10/09/2024 11/08/2025 1 1 Specialty Diagnoses / Procedures Referred By Contac t Referred To Contact [facility] Diagnoses Asthma-COPD overlap syndrome (HCC) Procedures SPIROMETRY - BASELINE AND POST DILATOR BRNCDILAT RSPSE SPMTRY PRE&POST-BRNCDILAT SPRING Rogers, Shayla Manjarrez MD [address] [place] [address] Phone: tel: fax: [address] [address] Referral ID Status Reason Start Date Expiration Date V isits Requested Visits Authorized [id number] Closed Auto-Generate d Referral 10/09/2024 11/08/2025 1 1 Reason Comments Established Patient 3 month follow up as thpa Reason Comments 6 Month Exam Reason Comments Abdominal Pain Left side pain Reason Onset Date Comments Results 01/12/2025 Reason Onset Date Comments Results 01/13/2025 Care Teams (unrecognized sec tion and content) Bacon Stringer Relationship Specialty Start Date End Date Avni Salcedo DO [address] [place] [address] PCP - General Family Practice 09/22/13 Bacon Stringer Relationship Specialty Start Date End Date Avni Salcedo DO [address] [place] [address] PCP - General Family Practice 09/22/13 Bacon Stringer Relationship Specialty Start Date End Date Avni Salcedo DO [address] [place] [address] PCP - General Family Practice 09/22/13 Bacon Stringer Relationship Specialty Start Date End Date Avni Salcedo DO [address] [place] [address] PCP - General Family Practice 09/22/13 Bacon Stringer Relationship Specialty Start Date End Date Avni Salcedo, DO [address] [place] [address] PCP - General Family Practice 09/22/13 Bacon Stringer Relationship Specialty Start Date End Date Avni Salcedo, DO [address] [place] [address] PCP - General Family Practice 09/22/13 Bacon Stringer Relationship Specialty Start Date End Date Avni Salcedo, DO [address] [place] [address] PCP - General Family Practice 09/22/13 Bacon Stringer Relationship Specialty Start Date End Date Avni Salcedo, DO [address] [place] [address] PCP - General Family Practice 09/22/13 Bacon Stringer Relationship Specialty Start Date End Date Avni Salcedo, DO [address] [place] [address] PCP - General Family Practice 09/22/13 Bacon Stringer Relationship Specialty Start Date End Date Avni Salcedo, DO [address] [place] [address] PCP - General Family Practice 09/22/13 Bacon Stringer Relationship Specialty Start Date End Date Avni Salcedo, DO [address] [place] [address] PCP - General Family Practice 09/22/13 Bacon Stringer Relationship Specialty Start Date End Date Avni Salcedo, DO [address] [place] [address] PCP - General Family Practice 09/22/13 Bacon Stringer Relationship Specialty Start Date End Date Avni Salcedo, DO [address] [place] [address] PCP - General Family Medicine 09/22/13 Bacon Stringer Relationship Specialty Start Date End Date Avni Salcedo, DO [address] [place] [address] PCP - General Family Medicine 09/22/13 Bacon Stringer Relationship Specialty Start Date End Date Avni Salcedo, DO [address] [place] [address] PCP - General Family Medicine 09/22/13 Bacon Stringer Relationship Specialty Start Date End Date Avni Salcedo, DO [address] [place] [address] PCP - General Family Medicine 09/22/13 Bacon Stringer Relationship Specialty Start Date End Date Avni Salcedo, DO [address] [place] [address] PCP - General Family Medicine 09/22/13 Bacon Stringer Relationship Specialty Start Date End Date Avni Salcedo, DO [address] [place] [address] PCP - General Family Medicine 09/22/13 Bacon Stringer Relationship Specialty Start Date End Date Avni Salcedo, DO [address] [place] [address] PCP - General Family Medicine 09/22/13 Bacon Stringer Relationship Specialty Start Date End Date Avni Salcedo, DO [address] [place] [address] PCP - General Family Medicine 09/22/13 Bacon Stringer Relationship Specialty Start Date End Date Avni Salcedo, DO [address] [place] [address] PCP - General Family Medicine 09/22/13 Bacon Stringer Relationship Specialty Start Date End Date Avni Salcedo, DO [address] [place] [address] PCP - General Family Medicine 09/22/13 Bacon Stringer Relationship Specialty Start Date End Date Avni Salcedo, DO [address] [place] [address] PCP - General Family Medicine 09/22/13 Bacon Stringer Relationship Specialty Start Date End Date Avni Salcedo, DO [address] [place] [address] PCP - General Family Medicine 09/22/13 Bacon Stringer Relationship Specialty Start Date End Date Avni Salcedo, DO [address] [place] [address] PCP - General Family Medicine 09/22/13 Bacon Stringer Relationship Specialty Start Date End Date Avni Salcedo, DO [address] [place] [address] PCP - General Family Medicine 09/22/13 Bacon Stringer Relationship Specialty Start Date End Date Avni Salcedo, DO [address] [place] [address] PCP - General Family Medicine 09/22/13 Bacon Stringer Relationship Specialty Start Date End Date Avni Salcedo, DO [address] [place] [address] PCP - General Family Medicine 09/22/13 Bacon Stringer Relationship Specialty Start Date End Date vAni Salcedo, DO [address] [place] [address] PCP - General Family Medicine 09/22/13 Bacon Stringer Relationship Specialty Start Date End Date Avni Salcedo, DO [address] [place] [address] PCP - General Family Medicine 09/22/13 Bacon Stringer Relationship Specialty Start Date End Date Avni Salcedo, DO [address] [place] [address] PCP - General Family Medicine 09/22/13 Bacon Stringer Relationship Specialty Start Date End Date Avni Salcedo, DO [address] [place] [address] PCP - General Family Medicine 09/22/13 Bacon Stringer Relationship Specialty Start Date End Date Avni Salcedo, DO [address] [place] [address] PCP - General Family Medicine 09/22/13 Bacon Stringer Relationship Specialty Start Date End Date Avni Salcedo, DO [address] [place] [address] PCP - General Family Medicine 09/22/13 Bacon Stringer Relationship Specialty Start Date End Date Avni Salcedo, DO [address] [place] [address] PCP - General Family Medicine 09/22/13 Bacon Stringer Relationship Specialty Start Date End Date Avni Salcedo, DO [address] [place] [address] PCP - General Family Medicine 09/22/13 Team [...] Salcedo , DO Primary Care Provider Active Dr. Hood Vang MD Attending Provider Active Team Status: Inactive Member Role Status Dates Dr. Avni Salcedo , DO Primary Care Provider Active Dr. Rah Queen MD Emergency Provider Active Bacon Stringer Relationship Specialty Start Date End Date Avni Salcedo, DO [address] [place] [address] PCP - General Family Medicine 09/22/13 Bacon Stringer Relationship Specialty Start Date End Date Avni Salcedo DO [address] [facility] [place] [address] PCP - General Family Medicine 09/22/13 Bacon Stringer Relationship Specialty Start Date End Date Avni Salcedo DO [address] [facility] [place] [address] PCP - General Family Medicine 09/22/13 Bacon Stringer Relationship Specialty Start Date End Date Avni Salcedo DO [address] [facility] [place] [address] PCP - General Family Medicine 09/22/13 Bacon Stringer Relationship Specialty Start Date End Date Avni Salcedo DO [address] [place] [address] PCP - General Family Medicine 09/22/13 Bacon Stringer Relationship Specialty Start Date End Date Avni Salcedo DO [address] [place] [address] PCP - General Family Medicine 09/22/13 Bacon Stringer Relationship Specialty Start Date End Date Avni Salcedo DO [address] [place] [address] PCP - General Family Medicine 09/22/13 Bacon Stringer Relationship Specialty Start Date End Date Avni Salcedo DO [address] [place] [address] PCP - General Family Medicine 09/22/13 Bacon Stringer Relationship Specialty Start Date End Date Avni Salcedo DO [address] [place] [address] PCP - General Family Medicine 09/22/13 Bacon Stringer Relationship Specialty Start Date End Date Avni Salcedo DO [address] [facility] [place] [address] PCP - General Family Medicine 09/22/13 Bacon Stringer Relationship Specialty Start Date End Date Avni Salcedo DO [address] [facility] [place] [address] PCP - General Family Medicine 09/22/13 Bacon Stringer Relationship Specialty Start Date End Date Avni Salcedo DO [address] [place] [address] PCP - General Family Medicine 09/22/13 Bacon Stringer Relationship Specialty Start Date End Date Avni Salcedo DO [address] [facility] [place] [address] PCP - General Family Medicine 09/22/13 Bacon Stringer Relationship Specialty Start Date End Date Avni Salcedo DO [address] [facility] [place] [address] PCP - General Family Medicine 09/22/13 Bacon Stringer Relationship Specialty Start Date End Date Avni Salcedo DO [address] [facility] [place] [address] PCP - General Family Medicine 09/22/13 Bacon Stringer Relationship Specialty Start Date End Date Avni Salcedo DO [address] [facility] [place] [address] PCP - General Family Medicine 09/22/13 Bacon Stringer Relationship Specialty Start Date End Date Avni Salcedo DO [address] [facility] [place] [address] PCP - General Family Medicine 09/22/13 Bacon Stringer Relationship Specialty Start Date End Date Avni Salcedo DO [address] [facility] [place] [address] PCP - General Family Medicine 09/22/13 Bacon Stringer Relationship Specialty Start Date End Date Avni Salcedo, [address] [facility] [place] [place] [address] PCP - General Family Medicine 09/22/13 Bacon Stringer Relationship Specialty Start Date End Date Avni Salcedo DO [address] [facility] [place] [address] PCP - General Family Medicine 09/22/13 Bacon Stringer Relationship Specialty Start Date End Date Avni Salcedo, [address] [facility] [place] [address] PCP - General Family Medicine 09/22/13 Bacon Stringer Relationship Specialty Start Date End Date Avni Salcedo, [address] [facility] [place] [place] [address] PCP - General Family Medicine 09/22/13 Bacon Stringer Relationship Specialty Start Date End Date Avni Salcedo, [address] [facility] [place] [address] PCP - General Family Medicine 09/22/13 Bacon Stringer Relationship Specialty Start Date End Date Avni Salcedo, [address] [facility] [place] [place] [address] PCP - General Family Medicine 09/22/13 Bacon Stringer Relationship Specialty Start Date End Date Avni Salcedo, DO [address] [facility] [place] [address] PCP - General Family Medicine 09/22/13 Bacon Stringer Relationship Specialty Start Date End Date Avni Salcedo DO [address] [facility] [place] [address] PCP - General Family Medicine 09/22/13 Bacon Stringer Relationship Specialty Start Date End Date Avni Salcedo, [address] [facility] [place] [address] PCP - General Family Medicine 09/22/13 Bacon Stringer Relationship Specialty Start Date End Date Avni Salcedo DO [address] [facility] [place] [address] PCP - General Family Medicine 09/22/13 Bacon Stringer Relationship Specialty Start Date End Date Avni Salcedo DO [address] [facility] [place] [address] PCP - General Family Medicine 09/22/13 Bacon Stringer Relationship Specialty Start Date End Date Avni Salcedo DO [address] [facility] [place] [address] PCP - General Family Medicine 09/22/13 Bacon Stringer Relationship Specialty Start Date End Date Avni Salcedo DO [address] [facility] [place] [address] PCP - General Family Medicine 09/22/13 Bacon Stringer Relationship Specialty Start Date End Date Avni Salcedo DO [address] [facility] [place] [address] PCP - General Family Medicine 09/22/13 Su Ham, DIGITAL ARCHIVIST.INFORMATION SECURITY MANAGER [address] [facility] [place] [address] Director Of Market [facility] 08/17/24 ThaCatalina, DIGITAL ARCHIVIST.INFORMATION SECURITY MANAGER [address] [facility] [place] [address] Director Of Market [facility] 08/17/24 Bacon Stringer Relationship Specialty Start Date End Date Avni Salcedo DO [address] [facility] [place] [address] PCP - General Family Medicine 09/22/13 Su Ham, DIGITAL ARCHIVIST.INFORMATION SECURITY MANAGER [address] [facility] [place] [address] Director Of Market [facility] 08/17/24 ThaCatalina, DIGITAL ARCHIVIST.INFORMATION SECURITY MANAGER [address] [facility] [place] [address] [facility]ly [facility] 08/17/24 Bacon Stringer Relationship Specialty Start Date End Date Avni Salcedo DO [address] [facility] [place] [address] PCP - General Family Medicine 09/22/13 Su Ham, DIGITAL ARCHIVIST.INFORMATION SECURITY MANAGER [address] [facility] [place] [address] Formerly [facility] 08/17/24 Catalina Almazan, DIGITAL ARCHIVIST.INFORMATION SECURITY MANAGER [address] [facility] [place] [address] Director Of Market [facility] 08/17/24 Bacon Stringer Relationship Specialty Start Date End Date Avni Salcedo DO [address] [place] [address] PCP - General Family Medicine 09/22/13 Su Ham, DIGITAL ARCHIVIST.INFORMATION SECURITY MANAGER [address] [place] [address] Director Of Market Research Family Medicine 08/17/24 Catalina Almazan APRN.INFORMATION SECURITY MANAGER [address] [facility] [place] [address] Director Of Market Research Family Medicine 08/17/24 Bacon Stringer Relationship Specialty Start Date End Date Avni Salcedo DO [address] [facility] [place] [address] PCP - General Family Medicine 09/22/13 Su Ham, DIGITAL ARCHIVIST.INFORMATION SECURITY MANAGER [address] [facility] [place] [address] Director Of Market Research Family Medicine 08/17/24 Catalina Almazan, DIGITAL ARCHIVIST.INFORMATION SECURITY MANAGER [address] [place] [address] Director Of Market Research Family [facility] 08/17/24 Bacon Stringer Relationship Specialty Start Date End Date Avni Salcedo DO [address] [place] [address] PCP - General Family Medicine 09/22/13 Su Ham, DIGITAL ARCHIVIST.INFORMATION SECURITY MANAGER [address] [place] [address] Director Of Market Research Family Medicine 08/17/24 Catalina Almazan, DIGITAL ARCHIVIST.INFORMATION SECURITY MANAGER [address] [place] [address] Director Of Market Research [facility] 08/17/24 Bacon Stringer Relationship Specialty Start Date End Date Avni Salcedo DO [address] [place] [address] PCP - General Family Medicine 09/22/13 ThaCatalina, DIGITAL ARCHIVIST.INFORMATION SECURITY MANAGER [address] [place] [address] Director Of Market Research [facility] 08/17/24 Bacon Stringer Relationship Specialty Start Date End Date Avni Salcedo DO [address] [place] [address] PCP - General Family Medicine 09/22/13 ThaCatalina, DIGITAL ARCHIVIST.INFORMATION SECURITY MANAGER [address] [place] [address] Director Of Market Research [facility] 08/17/24 Bacon Stringer Relationship Specialty Start Date End Date Avni Salcedo DO [address] [place] [address] PCP - General Family Medicine 09/22/13 ThaCatalina, DIGITAL ARCHIVIST.INFORMATION SECURITY MANAGER [address] [place] [address] Director Of [facility] 08/17/24 Bacon Stringer Relationship Specialty Start Date End Date Avni Salcedo DO [address] [facility] [place] [address] PCP - General Family Medicine 09/22/13 Catalina Almazan, DIGITAL ARCHIVIST.INFORMATION SECURITY MANAGER [address] [place] [address] Director Of Market Research [facility] 08/17/24 Bacon Stringer Relationship Specialty Start Date End Date Avni Salcedo DO [address] [place] [address] PCP - General Family Medicine 09/22/13 Catalina Almazan, DIGITAL ARCHIVIST.INFORMATION SECURITY MANAGER [address] [facility] [place] [address] Director Of Market [facility] 08/17/24 Bacon Stringer Relationship Specialty Start Date End Date Avni Salcedo DO [address] [facility] [place] [address] PCP - General Family Medicine 09/22/13 ThaCatalina, DIGITAL ARCHIVIST.INFORMATION SECURITY MANAGER [address] [facility] [place] [address] Director Of Market [facility] 08/17/24 Bacon Stringer Relationship Specialty Start Date End Date Avni Salcedo DO [address] [place] [address] PCP - General Family Medicine 09/22/13 ThaCatalian, DIGITAL ARCHIVIST.INFORMATION SECURITY MANAGER [address] [facility] [place] [address] Director Of Market ResearchPark[facility] 08/17/24 Bacon Stringer Relationship Specialty Start Date End Date Avni Salcedo DO [address] [facility] [place] [address] PCP - General Family Medicine 09/22/13 Catalina Almazan, DIGITAL ARCHIVIST.INFORMATION SECURITY MANAGER [address] [facility] [place] [address] Formerly [facility] 08/17/24 Bacon Stringer Relationship Specialty Start Date End Date Avni Salcedo DO [address] [place], [place] [address] PCP - General Family Medicine 09/22/13 Catalina Almazan, DIGITAL ARCHIVIST.INFORMATION SECURITY MANAGER [address] [place], [place] [address] Formerly [facility] 08/17/24 Bacon Stringer Relationship Specialty Start Date End Date Avni Salcedo DO [address] [place], [place] [address] PCP - [facility] 09/22/13 Catalina Almazan, DIGITAL ARCHIVIST.INFORMATION SECURITY MANAGER [address] [place] [address] Formerly [facility] 08/17/24 Bacon Stringer Relationship Specialty Start Date End Date Avni Salcedo DO [address] [place] [address] PCP - [facility] Medicine 09/22/13 ThaCatalina, DIGITAL ARCHIVIST.INFORMATION SECURITY MANAGER [address] [place], [place] [address] Formerly [facility] 08/17/24 Goals (unrecognized section and content) Goals [...] BE BASED ON THE PRIMARY CLINICAL RECORDS. [facility] CenterGoGroceries Business Plan [facility]. provides no warranty or guarantee of the accuracy or completeness of information in this document.
--- OUTSIDE RECORDS SUMMARY | 2025-02-21 15:09 | XMS RPT_ITS | CCD ---
Author Organization [facility] Care Team Providers Care Tool Crib Attendant Name Role Phone LEIA, INDRA E Unavailable [...] Attending Unavailable JOHN CHOWDHURY Referring Unavailable Jitendra CSR TECHNICIAN.Su TORRES Unavailable Tha CSR TECHNICIANCatalina RYAN Unavailable Avni Salcedo Primary Care Unavailable Pepper Sharma Referring Unavailable Pepper Sharma Attending Unavailable AVNI SALCEDO Primary Care Unavailable AVNI SALCEDO Referring Unavailable SHAYLA ROGERS Attending Unavailable AVNI SALCEDO Primary Care Unavailable SHAYLA ROGERS Referring Unavailable SALCEDO, AVNI L Primary Care Unavailable SHAYLA ROGERS Referring Unavailable YOON MAGANA Attending Unavailable SALCEDO, AVNI L Primary Care Unavailable TAVON VALENCIA Attending Unavailable SALCEDO, AVNI L Primary Care Unavailable ELMER WHITE Attending Unavailable SALCEDO, AVNI L Primary Care Unavailable SALCEDO, AVNI L Primary Care Unavailable SU HAM Attending Unavailabl e ANNIE, TAVON Referring Unavailable SALCEDO, AVNI L Primary Care [...] Unavailable SALCEDO, AVNI L Primary Care Unavailable SalcedoDr. Avni hardwick DO Primary Care Provider NP. Pepper Sharma Attending Provider [phone] NP. Pepper Sharma Referring Provider Dr. Eduardo Hernandez MD Emergency Provider Dr. Bandar Pastor DO Admit Provider [phone] Dr. Bandar Pastor DO Attending Provider Allergies Allergy Classification Reported Allergen(s) Allergy Type Date of Onset Reaction(s) Facility (20 sources) beclomethasone; Translations: [BECLOMETHASONE DIPROPIONATE] Drug Allergy 7 Other: See Comments [facility] Repository (20 sources) budesonide / formoterol; Translations: [BUDESONIDE-FORMO TEROL] Drug Allergy 7 Other: See Comments [facility] (20 sources) codeine; Translations: [CODEINE] Drug Allergy 5 GI Upset [facility] (20 sources) fluticasone; Translations: [FLUTICASONE PROPIONATE] Drug Allergy 5 MIGRAINE [facility]ository (2 sources) fluticasone / salmeterol; Translations: [FLUTICASONE-SALM ETEROL] Drug Allergy 7 AOF [facility] Repository (2 sources) OTHER; Translations: [OTHER] Propensity to adverse reactions (disorder) 1 AOF [facility] (20 sources) TETANUS-DIPHTHERI A TOXOIDS-TD; Translations: [TETANUS-DIPHTHER IA TOXOIDS-TD] Propensity to adverse reactions to drug (disorder) 6 Swelling [facility] (20 sources) DULoxetine; Translations: [DULOXETINE] Drug Allergy 0 Other: See Comments [facility] Work Phone: (20 sources) fluticasone / salmeterol; Translations: [FLUTICASONE PROPION-SALMETERO L] Drug Allergy 7 Other: See Comments [facility] Work Phone: (20 sources) gabapentin; Translations: [GABAPENTIN] Drug Allergy 8 Mental Status Change [facility] Work Phone: (20 sources) Environmental [Other] Propensity to adverse reactions 1 [facility] (20 sources) atomoxetine; Translations: [ATOMOXETINE] Drug Allergy 2 Mental Status Change [facility] Work Phone: (2 sources) Tetanus immune globulin Drug Allergy 3 deltoid swelling/tende r at 15yo; requested Tdap update today [facility] (1 source) atomoxetine Drug Allergy 3 [facility] Repository (1 source) DULoxetine Drug Allergy 3 [facility] Repository (1 source) gabapentin Drug Allergy 3 [facility] Repository (1 source) Tetanus immune globulin Drug Allergy 3 [facility] Repository Medications Current Medications Medication Drug Class(es) Dates Sig (Normalized) Sig (Original) albuterol 0.83 mg/ml inhalation solution (20 sources) beta2-Adrenergic Agonist Start: 11-02-2022 take 2.5 mg by inhalation once daily as needed for wheezing Albuterol Sulfate 2.5 mg /3 mL (0.083 %) solution for nebulization Active 2.5 mg INHALATION DAILY as needed for shortness of breath or wheezing November 02, 2022 1:00am Start: 11-02-2022 Albuterol Sulf ate Active 2.5 MG INHALATION November 02, 2022 [...] (Combivent Respimat) 1 PUFF inhaler Active 1 NMA INHALATION DAILY April 12, 2015 12:00am Start: 04-12-2015 take 1 puff(s) by in halation once daily Ipratropium-Albuterol (Combivent Respimat) 1 PUFF inhaler Active 1 PUFF INHALATION DAILY April 11, 2015 11:00pm Comment on above: Inhale 3 mL as instr ucted every 6 hours as needed (wheezing/shortness of breath.). 1 puffs QID for asth ma amoxicillin 875 mg / clavulanate 125 mg oral tablet (9 sources) Penicillin-class Antibacterial Start: 01-08-20 End: 01-15-20 take 1 tablet by mouth twice daily amoxicillin-clavu lanate potassium (AUGMENTIN) 875-125 mg per tablet Take 1 tablet by mouth two times a day for 7 days. 14 tablet 01/07/2025 01/14/2025 Active Start: 03-23-2021 End: 04-04-2021 Amoxicillin-Pot Clavulanate 875-125 mg tablet Discontinued 1 {tbl} PO TWICE A DAY March 23, 2021 12:00am April 04, 2021 4:04pm Start: 03-23-2021 End: 04-04-2021 take 1 tablet by mouth twice daily Amoxicillin-Pot Clavulanate Discontinued 1 TABLET PO TWICE A DAY March 22, 2021 11:00pm April 04, 2021 3:04pm atorvastatin 20 mg oral tablet (20 sources) HMG-CoA Reductase Inhibitor Start: 02-21-2025 take 1 tablet by mouth at bedtime Atorvastatin 20 mg tablet Active 20 mg PO AT BEDTIME February 21, 2025 12:00am Start: 10-04-2020 End: 02-08-2024 take 1 tablet [...] End: 02-08-2024 take 1 tablet by mouth at bedtime Atorvastatin 40 MG tablet Active 40 mg PO AT BEDTIME December 27, 2016 12:00am Comment on above: Take 1 tablet by temo th daily at bedtime. For cholesterol. Take with 20 mg tablet to equal 60 mg daily Take 1 tablet by temo th daily at bedtime. For cholesterol. Take with 40 mg tablet to equal 60 mg daily budesonide 0.25 mg/ml inhalation suspension (20 sources) Corticosteroid Start: 021 End: 025 budesonide (PULMICORT) 0.5 mg/2 mL nebulizer solution Indications: Asthma, moderate persistent, well-controlled (HCC) , Chronic allergic rhinitis Use 2 mL via nebulizer once daily. 2 mL 2 10/06/2024 Active Comment on above: Use 2 mL via nebuliz er once daily. cholecalciferol 0.125 mg oral capsule (20 sources) Vitamin D Start: 023 take 1 capsule by mouth once daily Cholecalciferol (Vitamin D3) 125 mcg (5,000 unit) capsule Active 5000 U PO DAILY November 02, 2022 1:00am Start: 11-02-2022 Cholecalcifero l (Vitamin D3) Active 5000 UNIT PO November 02, 2022 12:00am Start: 08-30-2021 End: 10-16-2022 take 1 capsule by mouth once daily Cholecalciferol, Vitamin D3, 125 mcg (5,000 unit) cap Indications: Vitamin D deficiency Take 1 capsule by mouth once daily. 90 capsule 3 10/16/2022 Active Comment on above: Take 1 capsule by mo uth once daily. cyclobenzaprine hydrochloride 10 mg oral tablet (20 sources) Muscle Relaxant Start: 06-09-20 End: 01-09-20 take 1 tablet by mouth three times daily as needed cyclobenzaprine (FLEXERIL) 10 mg tablet Indications: Displacement of lumbar intervertebral disc without myelopathy Take 1 tablet by mouth three times a day as needed. 270 tablet 01/08/2025 Active Start: 04-12-2015 End: 06-06-2024 take 1 tablet by mouth three times daily as needed cyclobenzaprine (FLEXERIL) 10 mg tablet Indications: Displacement of lumbar intervertebral disc without myelopathy Take 1 tablet by mouth three times a day as needed. 270 tablet 02/20/2024 06/06/2024 Discontinued Comment on above: Take 1 tablet [...] tablet (20 sources) Histamine-1 Receptor Antagonist Start: 12-01-19 End: 01-31-20 24 take 1 tablet by mouth once daily as needed fexofenadine (TONYA) 180 mg tablet Take 1 tablet by mouth once daily as needed. 90 tablet 3 01/31/2024 Active Comment on above: Take 1 tablet by temo once daily as needed. HYDROcodone bitartrate 7.5 mg / ibuprofen 200 mg oral tablet (20 sources) Opioid Agonist, Nonsteroidal Anti-inflammatory Drug Start: 02-22-20 Hydrocodone-Ibuprofe n 7.5-200 mg tablet Active 1 - 4 {tbl} PO THREE TIMES A DAY as needed for pain February 21, 2025 12:00am Start: 01-23-2024 take 1 tablet by temo th every eight hours as needed HYDROcodone-Ibuprofen (VICOPROFEN) 7.5-200 mg per tablet 1 tablet every 8 hours as needed for pain. 01/23/2024 Active Start: 04-12-2015 End: 12-01-2016 take 7.5-200 mg by mouth once daily Hydrocodone-Ibuprofen (Vicoprofen 7.5-20 0 Mg Tablet) 1 EACH tablet Discontinued 1 NMA PO DAILY April 12, 2015 12:00am December 01, 2016 2:30pm hydrocortisone acetate 25 mg rectal suppository (20 sources) Corticosteroid Start: 08-20-2019 End: 08-15-2024 hydrocortisone (HEMORRHOIDAL HC) 25 mg suppository Indications: External hemorrhoid 1 Suppository by RECTAL route two times a day. 30 Suppository 08/15/2024 Active Comment on above: 1 Suppository by REC ELFEGO route twice daily. lisinopril 20 mg oral tablet (20 sources) Angiotensin Converting Enzyme Inhibitor Start: 12-27-2016 End: 01-08-2025 take 1 tablet by mouth once daily lisinopril (PRINIVIL) 20 mg tablet Indications: Essential hypertension, benign Take 1 tablet by mouth once daily. 90 tablet 1 01/08/2025 Active Comment on above: Take 1 tablet by temo th once daily. montelukast 10 mg oral tablet (20 sources) Leukotriene Receptor Antagonist Start: 04-12-2015 End: 01-08-2025 take 1 tablet by mouth at bedtime Montelukast 10 mg tablet Active 10 mg PO AT BEDTIME March 21, 2021 9:25am Comment on above: Take 1 tablet by temo th daily at bedtime. Nebulizer Accessories kit (20 sources) Start: 11-07-2021 Nebulizer Accessories kit Indications: Asthma, moderate persistent, well-controlled (HCC) Provide nebulizer kit accessory. 1 Each 3 11/07/2021 Active Start: 11-07-2021 Nebulizer Acce ssories kit Indications: Asthma, moderate persistent, well-controlled Provide nebulizer kit accessory. 1 Each 3 11/07/2021 Active Comment on above: Provide nebulizer ki t accessory. omeprazole 40 mg delayed release oral capsule (20 sources) Proton Pump Inhibitor Start: 10-28-19 End: 07-30-20 23 take 1 capsule by mouth once daily [...] 3 08/02/2020 08/01/2021 Discontinued Start: 04-12-2015 take 1 capsule by mo uth once daily Omeprazole 20 MG capsule Active 20 mg PO DAILY April 12, 2015 12:00am Comment on above: Take 1 capsule by mo uth once daily Take 1 capsule by mo uth once daily. perflutren lipid microspheres 1.3 mL in NaCl (PF) 0.9% 10 mL injection (DEFINITY) (20 sources) Start: 10-11-2022 End: 01-10-2024 perflutren lipid microspheres 1.3 mL in NaCl (PF) 0.9% 10 mL injection (DEFINITY) Potassium Chloride (20 sources) Start: 02-21-2025 potassium chloride Active 1 {tbl} PO DAILY February 21, 2025 12:00am Start: 08-30-2021 End: 08-08-2023 take 1 tablet by mouth once daily [...] needed. 90 tablet 0 04/09/2023 Active Start: 11-02-2022 take 1 tablet by temo th once daily as needed Promethazine 25 mg tablet Active 25 mg PO DAILY as needed for allergy symptoms November 02, 2022 1:00am Start: 09-15-2021 End: 04-06-2023 take 1 tablet [...] two hours as needed for headache rizatriptan (MAXALT-SHOE DRESSER) 10 mg disintegrating tablet Indications: Migraine without aura and without status migrainosus, not intractable Take 1 tablet by mouth as needed for migraine headache (see administration instructions). May repeat in 2 hours if needed 10 tablet 1 04/09/2023 Active Start: 11-02-2022 Rizatriptan 10 mg tablet,disintegrating Active 10 mg translingual DAILY as needed for migraine headache November 02, 2022 1:00am Start: 08-06-2019 End: 04-06-2023 take 1 tablet by mouth every two hours as needed for headache rizatriptan (MAXALT-SHOE DRESSER) 10 mg disintegrating tablet Indications: Migraine without [...] 9 mg/ml prefilled syringe (20 sources) Start: End: sodium chloride 0.9 % (flush) 10 [...] above: Take 1 tablet by temo th twice daily for 14 days. With food triamcinolone acetonide 1 mg/ml topical cream (20 sources) Corticosteroid Start: End: triamcinolone acetonide (KENALOG) 0.1 % cream [...] (9 sources) Anticholinergic, beta2-Adrenergic Agonist Start: 01-08-20 25 take 1 dose by inhalation once daily umeclidinium-vilan terol (ANORO ELLIPTA) 62.5-25 mcg/actuation inhaler Inhale 1 Inhalation as instructed once daily. 60 each 5 01/07/2025 Active Umeclidinium-Vilanter ol (Anoro Ellipta) 62.5-25 mcg/actuation blister with device (1 source) Start: 02-22-20 25 Umeclidinium-Vilan terol (Anoro Ellipta) 62.5-25 mcg/actuation blister with device Active 1 NMA INHALATION DAILY February 21, 2025 12:00am Completed/Discontinued Medications Medication Drug Class(es) Dates Sig (Normalized) Sig (Original) 8 hr acetaminophen 650 mg extended release oral tablet (2 sources) Start: 11-30-2016 End: 03-21-2021 take 1 tablet by mouth three times daily as needed for pain Acetaminophen (Tylenol Arthritis Pain) 650 MG tablet extended release Discontinued 650 mg PO THREE TIMES A DAY as needed for Pain November 30, 2016 12:00am March 21, 2021 9:34am acetaminophen 325 mg / HYDROcodone bitartrate 10 mg oral tablet (2 sources) Opioid Agonist Start: 12-01-2016 End: 03-21-2021 Hydrocodone-Acetami nophen ([place]) 1 EACH tablet Discontinued 1 NMA PO EVERY 6 HOURS NEEDED as needed for Pain December 01, 2016 2:30pm March 21, 2021 9:34am aluminum hydroxide 80 mg/ml / magnesium hydroxide 80 mg/ml / simethicone 8 mg/ml oral suspension (2 sources) Start: 12-14-2016 End: 03-21-2021 take 1 mL by mouth every four hours as needed Alum-Mag Hydroxide-Simeth (Mylanta Ii) 30 ML suspension Discontinued 30 mL PO EVERY 4 HOURS NEEDED as needed for Indigestion December 14, 2016 12:00am March 21, 2021 9:34am Start: 12-14-2016 End: 03-21-2021 take 1 mL [...] Comment on above: Take 1 capsule by [facility] once daily. calcium chloride 0.0014 meq/ml / potassium chloride 0.004 meq/ml / sodium chloride 0.103 meq/ml / sodium lactate 0.028 meq/ml injectable solution (1 source) Start: 04-16-2024 End: 04-16-2024 lactated ringers iv infusion ciprofloxacin 500 mg oral tablet (2 sources) Quinolone Antimicrobial Start: 01-23-2018 End: 03-21-2021 take 1 tablet by mouth twice daily Ciprofloxacin Hcl 500 MG tablet Discontinued 500 mg PO TWICE A DAY January 23, 2018 12:00am March 21, 2021 9:34am desonide 0.5 mg/ml topical cream (4 sources) [...] Form) doxycycline hyclate 100 mg oral tablet (10 sources) Tetracycline-class Drug Start: 09-18-2022 End: 09-27-2022 [...] 04/18/2022 04/23/2022 Active Start: 03-05-2019 End: 03-21-2021 Doxycycline Hyclate 100 MG c apsule Discontinued 1 NMA PO TWICE A DAY March 05, 2019 12:00am March 21, 2021 9:34am Comment on above: Take 1 tablet by temo th twice daily for 5 days. Take 1 [...] inhalation solution (20 sources) beta2-Adrenergic Agonist Start: 09-22-19 End: 02-08-20 24 take 2 mL by inhalation every twelve hours formoterol fumarate (PERFOROMIST) 20 mcg/2 mL nebu Inhale 2 mL as instructed every 12 hours. 60 Vial 5 09/22/2020 11/01/2021 Discontinued Comment on above: Inhale 2 mL as instr ucted every 12 hours. Formoterol Fumarate (Perforomist) 20 mcg/2 mL solution for nebulization (2 sources) Start: 03-21-20 End: 02-22-20 take 1 mL by inhalation twice daily Formoterol Fumarate (Perforomist) 20 mcg/2 mL solution for nebulization Discontinued 2 mL INHALATION TWICE A DAY March 21, 2021 12:00am February 21, 2025 11:16am Start: 03-21-2021 take 1 mL by inhalat ion twice daily Formoterol Fumarate (Perforomist) 20 mcg/2 mL solution for nebulization Active 2 ML INHALATION TWICE A DAY March 20, 2021 11:00pm gabapentin 100 mg oral capsule (2 sources) Anti-epileptic Agent Start: 12-01-2016 End: 03-21-2021 take 100-300 mg by mouth four times daily as needed for pain Gabapentin (Neurontin) 100 MG capsule Discontinued 100 - 300 mg PO 4 TIMES DAILY NEEDED as needed for Pain 60 December 01, 2016 3:35pm March 21, 2021 9:34am hydroCHLOROthiazide 12.5 mg oral capsule (20 sources) Thiazide Diuretic Start: 04-21-2020 End: 02-21-2025 Hydrochlorothiazide 12.5 mg capsule Discontinued 12.5 mg PO November 02, 2022 1:00am February 21, 2025 11:19am Start: 11-30-2016 End: 11-02-2022 Hydrochlorothiazide 25 MG ta blet Discontinued 12.5 mg PO DAILY November 30, 2016 12:00am November 02, 2022 3:11pm Start: 11-30-2016 End: 11-02-2022 take 12.5 mg by mouth once daily Hydrochlorothiazide Discontinued 12.5 MG PO DAILY November 29, 2016 11:00pm November 02, 2022 2:11pm Comment on above: Take 1 capsule by [facility] once daily. hydrocortisone acetate 10 mg/ml / pramoxine hydrochloride 10 mg/ml rectal foam (2 sources) Corticosteroid Start: 03-05-2019 End: 03-16-2019 Hydrocortisone-Pramoxi ne 10 GM foam Discontinued 10 g RC AT BEDTIME 1 March 05, 2019 12:00am March 14, 2019 12:00am March 16, 2019 12:09am Start: 03-05-2019 End: 03-16-2019 Hydrocortisone-Pramoxine Dis continued 10 GM RC AT BEDTIME 1 March 04, 2019 11:00pm March 15, 2019 11:09pm iv contrast (will be provided with radiology test) (2 sources) Start: 05-19-2022 End: 05-19-2022 inject 1 dose [...] guidelines link. LORazepam 0.5 mg oral tablet (2 sources) Benzodiazepine Start: 04-12-20 End: 03-21-20 take 1 tablet by mouth twice daily as needed for anxiety Lorazepam 0.5 MG tablet Discontinued 0.5 mg PO TWICE DAILY NEEDED as needed for Anxiety April 12, 2015 12:00am March 21, 2021 9:35am 24 hr metFORMIN hydrochloride 500 mg extended [...] tablet 1 01/08/2023 01/31/2024 Discontinued Start: 11-02-2022 End: 02-21-2025 take 1 tablet by mouth every twenty-four hours Metformin 500 mg tablet extended release 24 hr Discontinued 500 mg PO November 02, 2022 1:00am February 21, 2025 11:20am Start: 11-01-2022 End: 01-30-2023 take 1 tablet [...] as directed naproxen 500 mg oral tablet (2 sources) Nonsteroidal Anti-inflammatory Drug Start: 01-12-20 16 End: 12-02-19 17 take 1 tablet by mouth twice daily Naproxen 500 MG tablet Discontinued 500 mg PO TWICE A DAY January 12, 2016 12:00am December 01, 2016 2:30pm nitroglycerin 0.4 mg sublingual tablet (2 sources) Nitrate Vasodilator Start: 12-01-19 17 End: 03-21-20 Nitroglycerin 0.4 MG tablet, sublingual Discontinued 0.4 mg SL NEEDED as needed for CP November 30, 2016 12:00am March 21, 2021 9:35am Start: 11-30-2016 End: 03-21-2021 Nitroglycerin Discontinued 0 .4 MG SL NEEDED November 29, 2016 11:00pm March 21, 2021 8:35am phenazopyridine hydrochloride 200 mg oral tablet (2 sources) Start: 01-25-2018 End: 03-21-2021 take 1 tablet by mouth three times daily Phenazopyridine 200 MG tablet Discontinued 200 mg PO THREE TIMES A DAY January 25, 2018 12:00am March 21, 2021 9:35am polyethylene glycol 3350 127023 mg / potassium chloride 2970 mg / sodium bicarbonate 6740 mg / sodium chloride 5860 mg / sodium sulfate 02835 mg powder for oral solution (1 source) Osmotic Laxative Start: 02-08-2024 End: 02-08-2024 peg 3350-Electrolytes (GOLYTELY) 236-22.74-6.74 -5.86 gram suspension Indications: Screening for colon cancer , Hyperlipidemia, mixed Take 4,000 mL by mouth one time only for 1 dose. Refer to printed prep instructions from your provider. 4000 mL 0 02/08/2024 02/08/2024 polysaccharide iron complex 150 mg oral capsule (2 sources) Start: 12-01-2016 End: 03-21-2021 Polysaccharide Iron Complex (Ferrex 150) 150 MG capsule Discontinued 150 mg PO DAILY WITH MEALS December 01, 2016 12:00am March 21, 2021 9:35am predniSONE 10 mg oral tablet (11 sources) Start: 09-18-2022 End: 10-01-2022 predniSONE (DELTASONE) 10 mg tablet Indications: Bronchitis [...] food. traMADol hydrochloride 50 mg oral tablet (2 sources) Opioid Agonist Start: 5 End: 5 take 1 tablet by mouth every four hours as needed for pain Tramadol 50 MG tablet Discontinued 50 mg PO EVERY 4 HOURS NEEDED as needed for Pain April 12, 2015 12:00am April 12, 2015 7:20pm Problems Active Problems Problem Classification Problem Date Documented Da te Episodic/Chronic Administrative/social admission (1 source) Administrative reason for encounter; Translations: [Encounter for other administrative examinations] Episodic Anxiety disorders (20 sources) Generalized anxiety disorder; Translations: [Generalized anxiety disorder] Onset: 6 03-28-2007 Chronic Asthma (20 sources) Uncomplicated mild persistent asthma; Translations: [Mild persistent asthma, uncomplicated] Onset: 3 Resolved: 7 04-03-2017 Chronic Calculus of urinary tract (20 sources) Kidney stone; Translations: [Calculus of kidney] Onset: 8 04-21-2008 Episodic Chronic obstructive pulmonary disease and bronchiectasis (8 sources) Bronchitis; Translations: [Bronchitis, not specified as acute or chronic] Episodic Coma; stupor; and brain damage (3 sources) Daytime somnolence; Translations: [Somnolence] Onset: 5 01-07-2025 Episodic Deficiency and other anemia (20 sources) Iron deficiency anemia due to blood loss; Translations: [Iron deficiency anemia secondary to blood loss (chronic)] Onset: 7 03-23-2017 Chronic Deficiency and other anemia (2 sources) Hemoglobin low; Translations: [Anemia, unspecified] 01-23-2018 Episodic [...] Resolved: 8 10-22-2007 Chronic Headache; including migraine (2 sources) Headache; Translations: [Severe headache] 03-21-2021 Episodic Hemorrhoids (20 sources) Internal hemorrhoids; Translations: [Other hemorrhoids] Onset: 2 05-26-2012 Episodic Hepatitis (20 sources) Nonalcoholic steatohepatitis; Translations: [Nonalcoholic steatohepatitis (HERRON)] Onset: 2 04-27-2012 Chronic Immunity disorders (20 sources) Pulmonary sarcoidosis; Translations: [Sarcoidosis of lung] Onset: 7 05-01-2017 Chronic Lymphadenitis (2 sources) Localized enlarged lymph nodes; Translations: [Localized enlarged lymph nodes] Episodic Mood disorders (20 sources) Depressive disorder; Translations: [Other specified depressive episodes] 03-28-2007 Chronic Nonspecific chest pain (1 source) Chest pain on exertion; Translations: [Chest pain, unspecified] 02-21-2025 Episodic Nutritional deficiencies (20 sources) Vitamin D deficiency; Translations: [Vitamin D deficiency, unspecified] Onset: 1 06-01-2021 Chronic Open wounds of extremities (2 sources) Laceration of left ring finger; Translations: [Laceration [...] connective tissue disease (2 sources) Pain in upper limb; Translations: [Pain in [...] constipation] Onset: 7 Chronic Other gastrointestinal disorders (2 sources) Incontinence of feces; Translations: [Full incontinence of feces] 03-06-2019 Episodic Other gastrointestinal disorders (2 sources) Acute diarrhea; Translations: [Diarrhea, unspecified] 03-06-2019 Episodic Other gastrointestinal disorders (2 sources) Splenomegaly; Translations: [Splenomegaly, not elsewhere classified] 01-13-2025 Episodic Other hematologic conditions (2 sources) H/O: Disorder; Translations: [Personal history of diseases of the blood and blood-forming organs and certain disorders involving the immune mechanism] 10-09-2024 Episodic Other liver diseases (20 sources) Disease of liver; Translations: [Liver disease, unspecified] Onset: 7 03-05-2009 Chronic Other liver diseases (1 source) ALT (SGPT) level raised; Translations: [Elevated alanine aminotransferase (ALT) level] Episodic Other lower respiratory disease (2 sources) Dyspnea; Translations: [Shortness of breath] 03-21-2021 Episodic Other lower respiratory disease (2 sources) Disorder of lung; Translations: [Other disorders of [...] pain on left side] Onset: Episodic Other lower respiratory disease (1 source) H/O: asthma; Translations: [Personal history of other diseases of the respiratory system] 02-21-2025 Episodic Other nervous system disorders (20 sources) [...] unspecified] 10-09-2018 Chronic Other upper respiratory disease (2 sources) Allergy to pollen; Translations: [Allergic rhinitis due [...] back pain; Translations: [Low back pain] Onset: 4 03-24-2014 Episodic Spondylosis; intervertebral disc disorders; other back problems (2 sources) Spinal stenosis, lumbar region without neurogenic claudication; Translations: [Spinal stenosis, lumbar region without neurogenic henry] Onset: 9 Sprains and strains (2 sources) Strain of biceps brachii muscle; Translations: [Strain [...] / UNK(Unknown) Onset: 7 Urinary tract infections (2 sources) Urethritis; Translations: [Other urethritis] 03-06-2019 Episodic Past or Other Problems Problem Classification Problem Date Documented Da te Episodic/Chronic Abdominal pain (20 sources) Right upper quadrant pain; Translations: [Right upper quadrant pain] Onset: 07-17-2006 Resolved: 03-05-2009 03-05-2009 Episodic Allergic reactions (20 sources) Solar degeneration; Translations: [Other skin changes due to chronic exposure to nonionizing radiation] Onset: 04-19-2013 04-19-2013 Episodic Deficiency and other anemia (20 sources) [...] anus and rectum] Onset: 12-25-2016 12-25-2016 Episodic Malaise and fatigue (2 sources) Fatigue; [...] (20 sources) Drug therapy finding; Translations: [Other mcc (current) drug therapy] Onset: 03-23-2017 03-23-2017 Episodic [...] use; Translations: [Tobacco abuse] Onset: 09-22-2013 Episodic Unclassified (1 source) Recheck Onset: 08-09-2017 Results Test Name Value Interpretation Reference Range Facility Absolute lymphocyte countOrd ered By: Eduardo Hernandez on 02-21-2025 Lymphocytes Auto (Unsp spec) [#/Vol] 1.72 10*3/uL 0.83-4.51 [facility] Absolute neutrophil countOrd ered By: Eduardo Hernandez on 02-21-2025 Neutrophils (Bld) [#/Vol] 4.5 10*3/uL 2.0-7.7 [facility] Anion gap in Serum or Plasma Ordered By: Eduardo Hernandez on 02-21-2025 Anion gap [Moles/Vol] 14 mmol/L 5-[address] [facility] Automated lymphocyte count a s percentage of total leukocytesOrdered By: Eduardo Hernandez on 02-21-2025 Lymphocytes/100 WBC Auto (Unsp spec) 24.0 % - [facility] BUN/creatinine ratioOrdered By: Eduardo Hernandez on 02-21-2025 Urea nitrogen/Creatinine [Mass ratio] 17.2 mg/mg 10- [facility] Basophil percentageOrdered B y: Eduardo Hernandez on 02-21-2025 Basophils/100 WBC (Bld) 0.7 % 0-1 [facility] Carbon dioxide, total [Moles /volume] in Central venous bloodOrdered By: Eduardo Hernandez on 02-21-2025 CO2 [Moles/Vol] 21.9 mmol/L 21.0-32.0 [facility] Chloride assayOrdered By: Dave Hernandez on 02-21-2025 Chloride [Moles/Vol] 98 mmol/L 98-108 [facility] Eosinophil percentageOrdered By: Eduardo Hernandez on 02-21-2025 Eosinophils/100 WBC (Bld) 2.8 % 0-5 [facility] Erythrocyte distribution wid th ratioOrdered By: Eduardo Hernandez on 02-21-2025 Erythrocyte distribution width (RBC) [Ratio] 12.6 % 11.6-14.6 [facility] Erythrocyte distribution wid th standard deviationOrdered By: Eduardo Hernandez on 02-21-2025 Erythrocyte distribution width (RBC) [Ratio] 41.1 fl 35.1-43.9 [facility] Glomerular filtration rate ( GFR) estimation/1.73 sq m using serum, plasma, or whole bOrdered By: Eduardo Hernandez on 02-21-2025 GFR/1.73 sq M.predicted among non-blacks MDRD (S/P/Bld) [Vol rate/Area] 57 mL/min/{1.73_m2} Low >60 [facility] Comment on above: mL/min/1.73m2 CKD-EP I Creatinine Equation (2020) Hematocrit Auto (Bld) [Volum e fraction]Ordered By: Eduardo Hernandez on 02-21-2025 Hematocrit (Bld) [Volume fraction] 41.6 % 40-54 [facility] Hemoglobin measurementOrdere d By: Eduardo Hernandez on 02-21-2025 Hemoglobin (Bld) [Mass/Vol] 14.5 g/dL 13.0-16.5 [facility] Immature granulocytes/100 WB C Auto (Bld)Ordered By: Eduardo Hernandez on 02-21-2025 Immature granulocytes/100 WBC (Bld) 0.700 % 0.0-0.9 [facility] Comment on above: IG% - Immature Granu locytes (promyelocytes, myelocytes and metamyelocytes) > 1% indicates that a LEFT SHIFT is Present. MCV (mean corpuscular volume ) determinationOrdered By: Eduardo Hernandez on 02-21-2025 MCV (RBC) [Entitic vol] 89.1 fL 80-94 [facility] Mean corpuscular hemoglobin (MCH) determinationOrdered By: Eduardo Hernandez on 02-21-2025 MCH (RBC) [Entitic mass] 31.0 pg 27.0-32.0 [facility] Mean corpuscular hemoglobin concentration (MCHC) determinationOrdered By: Eduardo Hernandez on 02-21-2025 MCHC (RBC) [Mass/Vol] 34.9 g/dL 32-[address] [facility] Mean platelet volume determi nationOrdered By: Eduardo Hernandez on 02-21-2025 Platelet mean volume (Bld) [Entitic vol] 10.0 fL 6.2-12.0 [facility] Monocyte percentageOrdered B y: Eduardo Hernandez on 02-21-2025 Monocytes/100 WBC (Bld) 9.6 % 0-10 [facility] Neutrophil percentageOrdered By: Eduardo Hernandez on 02-21-2025 Neutrophils/100 WBC (Bld) 62.2 % 47-70 [facility] Nucleated red blood cell per centageOrdered By: Eduardo Hernandez on 02-21-2025 Nucleated RBC/100 WBC (Bld) [Ratio] 0 % 0-5 [facility] Platelet countOrdered By: Dave Hernandez on 02-21-2025 Platelets (Bld) [#/Vol] 210 10*3/uL 150-450 [facility] Potassium measurement (mass/ volume)Ordered By: Eduardo Hernandez on 02-21-2025 Potassium (Unsp spec) [Mass/Vol] 4.7 mmol/L 3.3-5.1 [facility] RBC Auto (Bld) [#/Vol]Ordere d By: Eduardo Hernandez on 02-21-2025 RBC (Bld) [#/Vol] 4.67 10*6/uL 4.6-6.2 [facility] Serum creatinine measurement (mass/volume)Ordered By: Eduardo Hernandez on 02-21-2025 Creatinine [Mass/Vol] 1.47 mg/dL High 0.70-1.[address] [facility] Serum glucose measurement (m ass/volume)Ordered By: Eduardo Hernandez on 02-21-2025 Glucose [Mass/Vol] 128 mg/dL High 70-99 [facility] Serum or plasma calcium jose leias urement (mass/volume)Ordered By: Eduardo Hernandez on 02-21-2025 Calcium [Mass/Vol] 10.3 mg/dL 7.6-11.0 [facility] Serum or plasma urea nitroge n measurement (mass/volume)Ordered By: Eduardo Hernandez on 02-21-2025 Urea nitrogen [Mass/Vol] 25 mg/dL High 4-19 [facility] Sodium levelOrdered By: Eduardo Hernandez on 02-21-2025 Sodium [Moles/Vol] 135 mmol/L 133-145 [facility] Troponin T.cardiac [Mass/vol ume] in Serum or Plasma by High sensitivity methodOrdered By: Eduardo Hernandez on 02-21-2025 Troponin T.cardiac High sensitivity method [Mass/Vol] 7 ng/L <22 [facility] Troponin T.cardiac High sensitivity method [Mass/Vol] 9 ng/L <22 [facility] White blood cell (WBC) count Ordered By: Eduardo Hernandez on 02-21-2025 WBC (Bld) [#/Vol] 7.2 10*3/uL 4.4-11.0 [facility] CNPNon 02-04-2025 [facility] JAKE CHAIREZ ([id number]) 1975 M Date Time Provider Department 02/04/25 [facility]MER WHITE [facility] During your visit today, we recorded [...] capsule by mouth once daily. - rizatriptan ([employer]) 10 mg disintegrating tablet Take 1 tablet [...] behavior of (more content not included)... Normal [facility] POLYSOMNOGRAM (PSG)/HOME SLE EP APNEA TEST (HSAT)on 01-30-2025 POLYSOMNOGRAM (PSG)/HOME SLEEP APNEA TEST (HSAT) [facility] [address], [address] [place] [address] ; PSG Study Report Name: JAKE CHAIREZ Date of Study: 01/30/2025 [facility]CF#: [id number] Age: 49 (: 1975) ESS: 2 Neck Circ.: 15.5in Height: 61.0in Weight: 160.0lb BMI: 30.2 Referring Provider: YOON MAGANA Sleep History: The patient is a 49 year old male . Medications: Atorvastatin, Budesonide, Cyclobenzaprine, Fexofenadine, Hydrocodone, Hydrocortisone, Ipratropium, Lisinopril, Montelukast, Omeprazole, Potassium Chloride, Promethazine, Rizatriptan, Umeclidinium and Vilanterol Sleep procedure: PSG 4 or more [facility] ([id number]) Procedure: The study was attended continuously by a radiology ct technologist. The monitored parameters included: left (E1-M2) [...] By: Dhruv Izquierdo (02/06/2025 2:53:21 PM) Normal [facility] Amylase SerPl-cCncon 025 Amylase [Catalytic activity/Vol] 37 U/L Normal 30-104 [facility] Comment on above: Order Comment: Speci men Type: BLOOD SPECIMENOrdering Facility: [facility] Address: [address] [place] [address] [place] [address] Performed By: #### 1 798-8, 3040-3, 01914-0, 02808-2 ####[facility] [id number] [place] [address] [place] CBC W Auto Differential pane l (Bld)on 01-12-2025 Basophils (Bld) [#/Vol] 0.05 10*3/uL [facility] Basophils/100 WBC (Bld) 1 % [facility] Differential cell count method Nom (Bld) Auto [facility] Eosinophils (Bld) [#/Vol] 0.33 10*3/uL [facility] Eosinophils/100 WBC (Bld) 6.4 % [facility] Erythrocyte distribution width (RBC) [Ratio] 13.1 % 11.5 - 15.0 % [facility] Hematocrit (Bld) [Volume fraction] 40 % 39.0 - 51.0 % [facility] Hemoglobin (Bld) [Mass/Vol] 14.2 g/dL 13.0 - 17.0 g/dL [facility] Immature granulocytes (Bld) [#/Vol] [facility] Immature granulocytes/100 WBC (Bld) 0.2 % [facility] Lymphocytes (Bld) [#/Vol] 1.59 10*3/uL [facility] Lymphocytes/100 WBC (Bld) 30.8 % [facility] MCH (RBC) [Entitic mass] 30.3 pg 26.0 - 34.0 pg [facility] MCHC (RBC) [Mass/Vol] 35.5 g/dL 30.5 - 36.0 g/dL [facility] MCV (RBC) [Entitic vol] 85.5 fL 80.0 - 100.0 fL [facility] Monocytes (Bld) [#/Vol] 0.44 10*3/uL [facility] Monocytes/100 WBC (Bld) 8.5 % [facility] Neutrophils (Bld) [#/Vol] 2.74 10*3/uL [facility] Neutrophils/100 WBC (Bld) 53.1 % [facility] Nucleated RBC (Bld) [#/Vol] [facility] Nucleated RBC/100 WBC (Bld) [Ratio] 0 % /100 WBC [facility] Platelet mean volume (Bld) [Entitic vol] 10.3 fL 9.0 - 12.7 fL [facility] Platelets (Bld) [#/Vol] 222 10*3/uL [facility] RBC (Bld) [#/Vol] 4.68 10*6/uL 4.20 - 6.00 m/uL [facility] WBC (Bld) [#/Vol] 5.16 10*3/uL [facility] Basophils (Bld) [#/Vol] 0.05 10*3/uL Normal <0.11 [facility] Comment on above: Order Comment: Speci men Type: BLOOD SPECIMEN [facility] Address: [address] [place] [address] Performed By: #### 5 7021-8 #### [facility] CLIA [id number] [address] [place] [address] [place] Basophils/100 WBC (Bld) 1.0 % Normal [facility] Comment on above: Order Comment: Speci men Type: BLOOD SPECIMEN [facility] Address: [address] [place] [address] Performed By: #### 5 7021-8 #### [facility] CLIA [id number] [address] [place] [address] [place] Differential cell count method Nom (Bld) Auto Normal [facility] Comment on above: Order Comment: Speci men Type: BLOOD SPECIMEN [facility] Address: [address] [place] [address] Performed By: #### 5 7021-8 #### [facility] CLIA [id number] [address] [place] [address] [place] Eosinophils (Bld) [#/Vol] 0.33 10*3/uL Normal <0.46 [facility] Comment on above: Order Comment: Speci men Type: BLOOD SPECIMEN [facility] Address: [address] [place] [address] Performed By: #### 5 7021-8 #### [facility] CLIA [id number] [address] [place] [address] [place] Eosinophils/100 WBC (Bld) 6.4 % Normal [facility] Comment on above: Order Comment: Speci men Type: BLOOD SPECIMEN [facility] Address: [address] [place] [address] Performed By: #### 5 7021-8 #### [facility] CLIA [id number] [address] [place] [address] [place] Erythrocyte distribution width (RBC) [Ratio] 13.1 % Normal 11.5-15.0 [facility] Comment on above: Order Comment: Speci men Type: BLOOD SPECIMEN [facility] Address: [address] [place] [address] Performed By: #### 5 7021-8 #### [facility] CLIA [id number] [address] [place] [address] [place] Hematocrit (Bld) [Volume fraction] 40.0 % Normal 39.0-51.0 [facility] Comment on above: Order Comment: Speci men Type: BLOOD SPECIMEN [facility] Address: [address] [place] [address] Performed By: #### 5 7021-8 #### [facility] CLIA [id number] [address] [place] [address] [place] Hemoglobin (Bld) [Mass/Vol] 14.2 g/dL Normal 13.0-17.0 [facility] Comment on above: Order Comment: Speci men Type: BLOOD SPECIMEN [facility] Address: [address] [place] [address] Performed By: #### 5 7021-8 #### [facility] CLIA [id number] [address] [place] [address] [place] Immature granulocytes (Bld) [#/Vol] 10*3/uL Normal <0.10 [facility] Comment on above: Order Comment: Speci men Type: BLOOD SPECIMEN [facility] Address: [address] [place] [address] Performed By: #### 5 7021-8 #### [facility] CLIA [id number] [address] [place] [address] [place] Immature granulocytes/100 WBC (Bld) 0.2 % Normal [facility] Comment on above: Order Comment: Speci men Type: BLOOD SPECIMEN [facility] Address: [address] [place] [address] Performed By: #### 5 7021-8 #### [facility] CLIA [id number] [address] [place] [address] [place] Lymphocytes (Bld) [#/Vol] 1.59 10*3/uL Normal 1.00-4.00 [facility] Comment on above: Order Comment: Speci men Type: BLOOD SPECIMEN [facility] Address: [address] [place] [address] Performed By: #### 5 7021-8 #### [facility] CLIA [id number] [address] [place] [address] [place] Lymphocytes/100 WBC (Bld) 30.8 % Normal [facility] Comment on above: Order Comment: Speci men Type: BLOOD SPECIMEN [facility] Address: [address] [place] [address] Performed By: #### 5 7021-8 #### [facility] CLIA [id number] [address] [place] [address] [place] MCH (RBC) [Entitic mass] 30.3 pg Normal 26.0-34.0 [facility] Comment on above: Order Comment: Speci men Type: BLOOD SPECIMEN [facility] Address: [address] [place] [address] Performed By: #### 5 7021-8 #### [facility] CLIA [id number] [address] [place] [address] [place] MCHC (RBC) [Mass/Vol] 35.5 g/dL Normal 30.5-36.0 [facility] Comment on above: Order Comment: Speci men Type: BLOOD SPECIMEN [facility] Address: [address] [place] [address] Performed By: #### 5 7021-8 #### [facility] CLIA [id number] [address] [place] [address] [place] MCV (RBC) [Entitic vol] 85.5 fL Normal 80.0-100.0 [facility] Comment on above: Order Comment: Speci men Type: BLOOD SPECIMEN [facility] Address: [address] [place] [address] Performed By: #### 5 7021-8 #### [facility] CLIA [id number] [address] [place] [address] [place] Monocytes (Bld) [#/Vol] 0.44 10*3/uL Normal <0.87 [facility] Comment on above: Order Comment: Speci men Type: BLOOD SPECIMEN [facility] Address: [address] [place] [address] Performed By: #### 5 7021-8 #### [facility] CLIA [id number] [address] [place] [address] [place] Monocytes/100 WBC (Bld) 8.5 % Normal [facility] Comment on above: Order Comment: Speci men Type: BLOOD SPECIMEN [facility] Address: [address] [place] [address] Performed By: #### 5 7021-8 #### [facility] CLIA [id number] [address] [place] [address] [place] Neutrophils (Bld) [#/Vol] 2.74 10*3/uL Normal 1.45-7.50 [facility] Comment on above: Order Comment: Speci men Type: BLOOD SPECIMEN [facility] Address: [address] [place] [address] Performed By: #### 5 7021-8 #### [facility] CLIA [id number] [address] [place] [address] [place] Neutrophils/100 WBC (Bld) 53.1 % Normal [facility] Comment on above: Order Comment: Speci men Type: BLOOD SPECIMEN [facility] Address: [address] [place] [address] Performed By: #### 5 7021-8 #### [facility] CLIA [id number] [address] [place] [address] [place] Nucleated RBC (Bld) [#/Vol] 10*3/uL Normal <0.01 [facility] Comment on above: Order Comment: Speci men Type: BLOOD SPECIMEN [facility] Address: [address] [place] [address] Performed By: #### 5 7021-8 #### [facility] CLIA [id number] [address] [place] [address] [place] Nucleated RBC/100 WBC (Bld) [Ratio] 0.0 /100 WBC Normal [facility] Comment on above: Order Comment: Speci men Type: BLOOD SPECIMEN [facility] Address: [address] [place] [address] Performed By: #### 5 7021-8 #### [facility] CLIA [id number] [address] [place] [address] [place] Platelet mean volume (Bld) [Entitic vol] 10.3 fL Normal 9.0-12.7 [facility] Comment on above: Order Comment: Speci men Type: BLOOD SPECIMEN [facility] Address: [address] [place] [address] Performed By: #### 5 7021-8 #### [facility] CLIA [id number] [address] [place] [address] [place] Platelets (Bld) [#/Vol] 222 10*3/uL Normal 150-400 [facility] Comment on above: Order Comment: Speci men Type: BLOOD SPECIMEN [facility] Address: [address] [place] [address] Performed By: #### 5 7021-8 #### [facility] CLIA [id number] [address] [place] [address] [place] RBC (Bld) [#/Vol] 4.68 10*6/uL Normal 4.20-6.00 [facility] Comment on above: Order Comment: Speci men Type: BLOOD SPECIMEN [facility] Address: [address] [place] [address] Performed By: #### 5 7021-8 #### [facility] CLIA [id number] [address] [place] [address] [place] WBC (Bld) [#/Vol] 5.16 10*3/uL Normal 3.70-11.00 [facility] Comment on above: Order Comment: Speci men Type: BLOOD SPECIMEN [facility] Address: [address] [place] [address] Performed By: #### 5 7021-8 #### [facility] [place] [id number] [address] [place] [address] [place] CNOVon 01-12-2025 CNOV Office Visit (FAMPWS ) JAKE CHAIREZ ([id number]) 1975 M Date Time Provider Department 01/12/25 2:40 PM ELMER WHITE During your visit today, we recorded the following information about you: Pulse Respiration Blood pressure Weight 118/minute 16/minute 128/96 74.4 kg Elmer White MD 01/12/2025 3:29 PM Signed Chief Complaint Patient presents with: Abdominal Pain: Left side pain HPI aJke Chairez is a 49 year old male [...] 1 tabl (more content not included)... Normal [facility] HbA1c (Bld)on 01-12-2025 Average glucose Estimated from glycated hemoglobin (Bld) [Mass/Vol] 157 mg/dL Normal [facility] Comment on above: Order Comment: Mk gilmore Type: BLOOD SPECIMEN [facility] Address: [address] [place] [address] Result Comment: eAG: (Estimated average glucose) is a calculated value from HgbA1c and is special service representative of the average blood glucose level in the last 2-3 month period. Performed By: #### 5 5454-3 #### [facility] CLIA [id number] [address] [place] [address] [place] HbA1c (Bld) [Mass fraction] 7.1 % High 4.3-5.6 [facility] Comment on above: Order Comment: Mk gilmore Type: BLOOD SPECIMEN [facility] Address: [address] [place] [address] Result Comment: [place] Diabetes Association guidelines indicate that patients with HgbA1c in the range 5.7-6.4% are at increased risk for development of diabetes, and intervention by lifestyle modification may be beneficial. HgbA1c greater or equal to 6.5% is considered diagnostic of diabetes. Performed By: #### 5 5454-3 #### [facility] CLIA [id number] [address] [place] [address] [place] Hepatic function 2000 panelo n 01-12-2025 Albumin [Mass/Vol] 4.7 g/dL Normal 3.9-4.9 [facility] Comment on above: Order Comment: Mk gilmore Type: BLOOD SPECIMENOrdering Facility: [facility] Address: [address] [place] [address] Performed By: #### 1 798-8, 3040-3, 68694-0, 94162-5 ####[facility] [id number] [place] [address] [place] ALP [Catalytic activity/Vol] 116 U/L High 38-113 [facility] Comment on above: Order Comment: Speci men Type: BLOOD SPECIMENOrdering Facility: [facility] Address: [address] [place] [address] Performed By: #### 1 798-8, 3040-3, 88225-6, 44376-7 ####[facility] [id number] [place] [address] [place] ALT [Catalytic activity/Vol] 37 U/L Normal 10-54 [facility] Comment on above: Order Comment: Speci men Type: BLOOD SPECIMENOrdering Facility: [facility] Address: [address] [place] [address] Performed By: #### 1 798-8, 3040-3, 03837-0, 88656-1 ####[facility] [id number] [place] [address] [place] AST [Catalytic activity/Vol] 26 U/L Normal 14-40 [facility] Comment on above: Order Comment: Speci men Type: BLOOD SPECIMENOrdering Facility: [facility] Address: [address] [place] [address] Performed By: #### 1 798-8, 3040-3, 44668-0, 50718-1 ####[facility] [id number] [place] [id number] [place] Bilirubin [Mass/Vol] 0.7 mg/dL Normal 0.2-1.3 [facility] Comment on above: Order Comment: Speci men Type: BLOOD SPECIMENOrdering Facility: [facility] Address: [address] [place] [address] Performed By: #### 1 798-8, 3040-3, 68175-1, 14287-8 ####[facility] [id number] [place] [address] [place] Bilirubin.conjugated [Mass/Vol] 0.2 mg/dL Normal <0.3 [facility] Comment on above: Order Comment: Speci men Type: BLOOD SPECIMENOrdering Facility: [facility] Address: [address] [place] [address] Performed By: #### 1 798-8, 3040-3, 78133-4, 00814-8 ####[facility] [id number] [place] [address] [place] Protein [Mass/Vol] 7.2 g/dL Normal 6.3-8.0 [facility] Comment on above: Order Comment: Speci men Type: BLOOD SPECIMENOrdering Facility: [facility] Address: [address] [place] [address] Performed By: #### 1 798-8, 3040-3, 33280-5, 88665-4 ####[facility] LABIA [id number] [place] [address] [place] Lipase SerPl-cCncon 01-13-20 25 Lipase [Catalytic activity/Vol] 14 U/L Low 16-61 [facility] Comment on above: Order Comment: Speci men Type: BLOOD SPECIMENOrdering Facility: [facility] Address: [address] [place] [address] Performed By: #### 1 798-8, 3040-3, 79910-5, 75556-3 ####[facility] LABIA [id number] [place] [address] [place] Lipid 1996 panelon 5 Cholesterol [Mass/Vol] 179 mg/dL Normal <200 [facility] Comment on above: Order Comment: Speci men Type: BLOOD SPECIMENOrdering Facility: [facility] Address: [address] [place] [address] Result Comment: <200 mg/dL, Desirable 200-239 mg/dL, Borderline high >239 mg/dL, High Performed By: #### 1 798-8, 3040-3, 06173-9, 72770-4 ####[facility] LABCLIA [id number] [facility] [place] [address] [place] Cholesterol in HDL [Mass/Vol] 60 mg/dL Normal >39 [facility] Comment on above: Order Comment: Speci men Type: BLOOD SPECIMENOrdering Facility: [facility] Address: [address] [place] [address] Result Comment: 40-5 9 mg/dL, Acceptable >59 mg/dL, High: Negative risk factor for coronary heart disease <40 mg/dL, Low: Positive risk factor for coronary heart disease Performed By: #### 1 798-8, 3040-3, 97736-4, 91558-3 ####[facility] LABCLIA [id number] [facility] [place], [place] [address] [place] Cholesterol in LDL [Mass/Vol] 86 mg/dL Normal <100 [facility] Comment on above: Order Comment: Speci men Type: BLOOD SPECIMENOrdering Facility: [facility] Address: [address] [place] [address] Result Comment: <100 mg/dL, Optimal 100-129 mg/dL, Near optimal/above optimal 130-159 mg/dL, Borderline high 160-189 mg/dL, High >189 mg/dL, Very high Secondary prevention optimal LDL Cholesterol levels are recommended to be <70 mg/dL LDL cholesterol is calculated using the Ware-NIH equation. Performed By: #### 1 798-8, 3040-3, 83605-5, 85771-2 ####[facility] LABCLIA [id number] [facility] [place] [address] [place] Cholesterol in LDL/Cholesterol in HDL [Mass ratio] 1.43 {ratio} Normal <2.54 [facility] Comment on above: Order Comment: Speci men Type: BLOOD SPECIMENOrdering Facility: [facility] Address: [address] [place] [address] Result Comment: Fern gao: 1. National Cholesterol Education Program ATP III Guideline At-A-Glance Quick Desk Reference: National Heart, Lung, and Blood Nicollet. National Institutes of Health. 2001: NIH Publication No. 01-3305. 2. An International Atherosclerosis Society position paper: global recommendations for the management of dyslipidemia: executive summary, Atherosclerosis. 2014: 232(2):410-413. Performed By: #### 1 798-8, 3040-3, 51376-5, 98700-4 ####[facility] LABCLIA [id number] [place] [address] [place] Cholesterol in VLDL [Mass/Vol] 31 mg/dL High <30 [facility] Comment on above: Order Comment: Speci men Type: BLOOD SPECIMENOrdering Facility: [facility] Address: [address] [place] [address] Performed By: #### 1 798-8, 3040-3, 62895-9, 80616-5 ####[facility] LABCLIA [id number] [place] [address] [place] Cholesterol non HDL [Mass/Vol] 119 mg/dL Normal <130 [facility] Comment on above: Order Comment: Jankii men Type: BLOOD SPECIMENOrdering Facility: [facility] Address: [address] [place] [address] Result Comment: <130 mg/dL, Optimal 130-159 mg/dL, Near optimal/above optimal 160-189 mg/dL, Borderline high 190-219 mg/dL, High >219 mg/dL, Very high Secondary prevention optimal non HDL Cholesterol levels are recommended to be <100 mg/dL Performed By: #### 1 798-8, 3040-3, 61376-1, 78089-7 ####[facility] LABCLIA [id number] [address] [address] [place] Cholesterol.total/Cho lesterol in HDL [Mass ratio] 2.98 {ratio} Normal <5.10 [facility] Comment on above: Order Comment: Speci men Type: BLOOD SPECIMENOrdering Facility: [facility] Address: [address] [place] [address] Performed By: #### 1 798-8, 3040-3, 13070-1, 74256-7 ####[facility] LABCLIA [id number] [address] FASTING TIME 12 hrs Normal [facility] Comment on above: Order Comment: Speci men Type: BLOOD SPECIMENOrdering Facility: [facility] Address: [address] [place] [address] Performed By: #### 1 798-8, 3040-3, 56601-6, 79512-2 ####[facility] LABIA [id number] [address] Triglyceride [Mass/Vol] 196 mg/dL High <150 [facility] Comment on above: Order Comment: Speci men Type: BLOOD SPECIMENOrdering Facility: [facility] Address: [address] [place] [address] Result Comment: <150 mg/dL, Normal 150-199 mg/dL, Borderline high 200-499 mg/dL, High >499 mg/dL, Very high Performed By: #### 1 798-8, 3040-3, 29429-8, 82652-9 ####[facility] LABIA [id number] [place] [address] [place] XR RIB/CHST 3V AP [...] of the lungs compared to 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 Similarly prominent spleen compared to CT abdomen 2011, MRI lumbar spine 2017. Borderline splenomegaly on those previous exams; cannot be radiographically measured. IMPRESSION: No acute findings Similarly prominent spleen as above Casino Shift Manager: ELMO Transcribe Date/Time: Jan 12 2025 3:31P Dictated by : NELDA GU MD This examination was interpreted and the report reviewed and electronically signed by: NELDA GU MD on Jan 12 2025 3:46PM EST [id number] Normal [facility] XR Ribs - left Views and Chrissie st PAon 01-12-2025 IMPRESSION: No acute findings Similarly prominent spleen as above Casino Shift Manager: PSC Transcribe Date/Time: Jan 12 2025 3:31P Dictated by : NELDA GU MD This examination was interpreted and the report reviewed and electronically signed by: NELDA GU MD on Jan 12 2025 3:46PM EST DIVISION OF RADIOLOGY * * *Final [...] of the lungs compared to 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 Similarly prominent spleen compared to CT abdomen 2012, MRI lumbar spine 2018. Borderline splenomegaly on those previous exams; cannot be radiographically measured. 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 Similarly prominent spleen compared to CT abdomen 2012, MRI lumbar spine 2018. Borderline splenomegaly on those previous exams; cannot be radiographically measured. IMPRESSION IMPRESSION: No acute findings Similarly prominent spleen as above Casino Shift Manager: PSCB Transcribe Date/Time: Jan 12 2025 3:31P Dictated by : NELDA GU MD This examination was interpreted and the report reviewed and electronically signed by: NELDA GU MD on Jan 12 2025 3:46PM EST [facility] Radiology Study observation (narrative) [facility] XR Ribs - left Views and Chrissie st PAOrdered By: Ccf Provider on 01-12-2025 [facility] CNOVon 01-08-2025 CNOV Office Visit (FAMPWS ) JAKE CHAIREZ ([id number]) 1975 M Date Time Provider Department 01/08/25 2:20 PM [facility] VALENC[facility] During your visit today, we recorded the following information about you: Pulse Blood pressure Weight 108/minute 126/87 75 kg Tavon Valencia APRN.HOSPICE VOLUNTEER 01/08/2025 2:21 PM Signed Chief Complaint Patient [...] daily. i (more content not included)... Normal [facility] CNOVon 01-07-2025 CNOV Office Visit (PULMWS ) JAKE CHAIREZ ([id number]) 1975 M Date Time Provider Department 01/07/25 3:00 PM YOON MAGANA PULMWS During your visit today, we recorded the following information about you: Pulse Respiration Blood pressure Weight 117/minute 15/minute 122/78 75.3 kg Height 1.676 m Yoon Magana, CSR TECHNICIAN.HOSPICE VOLUNTEER 01/07/2025 8:14 PM Signed Pulmonary Medicine Patients [...] history of colonic polyps Sarcoidosis of lung ([facility]) 04/2017 Transbronchial biopsy, transbronchial needle aspiration biopsy of nodes, and bronchoalveolar lavage 04/2017. Type 2 diabetes ([facility]) 10/26/2022 Unspecified asthma(493.90) Allergies: Advair [...] known a (more content not included)... 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: : 1975 Requested By: Order Number: [id number] Reading MD: Shayla Rogers MD Interpretive Statements [...] 12:49:18 EDT by Shayla Rogers MD ID: [id number] Name: JAKE CHAIREZ Race: White Ht: 65.00 in Wt: 166.00 lbs Age: 49 Gender: Male : 1975 Dx: Moderate persistent asthma, uncomplicated_ Smoking Hx: Non-smoker Doctor: SHAYLA ROGERS Test Date: 01/07/2025 Site: Tech: Teresa Amos PRE-BRONCH POST-BRONCH Jose Elias LLN Pred ULN [...] 90-100 0.59 92 FIVC 3.98 4.10 3 DRG40-87 0.90 1.64 3.07 4.95 29 -2.79 1.74 [...] 80 % FEV1/FVC_LLN (%) : 69 % XYR34_NEO (L/S) : 3.18 L/S CYT86_JSUC (L/S) : 5.26 L/S JWH67_PAN (L/S) : 0.34 L/S ULW54_PVPD (L/S) : 0.72 L/S ICE17_NRMJ (L/S) : 1.01 L/S MIQ11_MME (L/S) : 0.44 L/S XOE89_BDF (L/S) : 2.17 L/S LAM06-17%_PRE (L/S) : 0.90 L/S KYJ60-84%_POST (L/S) : 1.74 L/S GAK59-74%_PRED (L/S) : 3.07 L/S CYG49-25%_LLN (L/S) : 1.64 L/S PEF_PRE (L/S) : 6.88 L/S PEF_POST (L/S) : 8.68 L/S PEFMAX_LLN (L/S) : 6.65 L/S PEFMAX_ULN (L/S) : 10.64 L/S FET_PRE (S) : 14.86 S FET_POST (S) : 11.90 S Normal [facility] PT D/C Summary (1)on 025 PT D/C Summary (1) [facility] Physical Therapy [address] [place] [address] / REHABILITATION SERVICES DISCHARGE SUMMARY MR#: [id number] Acct: [id number] Name: JAKE CHAIREZ Rep #: [id number] : 1975 49 From: Calvin Bustamante PT, ATC Referring Dr.: Pepper Sharma Status: REG RCR Insurance: [facility] SELF PAY INSURANCE Discharge Summary D/C summary: It has been my pleasure to treat JAKE CHAIREZ referred by DRY MOLDER. Pepper Sharma, with the diagnosis of LBP [...] please feel free to call me at [phone]. Thank you for the referral of this patient. Sincerely, Calvin Bustamante, PT, ATC Balance/Gait/Functional tests Balance/Special Test Scores Oswestry Low Back Score: 36 Improvement % Improvement: 0 01/02/25 1454 CC: Pepper Sharma; Dr. Avni Salcedo, [facility] Signed Normal [facility] Inital Evaluation (1) - PTon 12-11-2024 Inital Evaluation (1) - PT [facility] Physical Therapy [address] [place] [address] / REHABILITATION SERVICES INITIAL EVALUATION MR#: [id number] Acct: [id number] Name: JAKE CHAIREZ Rep #: [id number] : 1975 49 From: Calvin Bustamante PT, ATC Referring Dr.: Pepper Sharma Status: REG RCR Insurance: [facility] SELF PAY INSURANCE Patient's Visit Information Visit Information Visit Information: JAKE CHAIREZ is a 49 year old M referred to Physical Therapy by DRY MOLDER. Pepper Sharma with a diagnosis of LBP. Date of Evaluation: 12/11/24 Physical Therapist: Calvin Bustamante, PT, ATC Visit Plan Frequency: 1x/Week Duration: [...] to be FAXED BACK to us at [phone] for Medicare purposes. For Medicare only, by signing this I certify the plan of care. Please let me know if there are questions or concerns regarding this plan of care. Physician Signature: _Date: 12/11/24 1624 CC: Pepper Sharma; Dr. Avni Salcedo DO [facility] Signed Normal [facility] CNOVon 10-09-2024 OV Office Visit (PULMWS ) JAKE CHAIREZ ([id number]) 1975 M Date Time Provider Department 10/09/24 2:45 PM SHAYLA ROGERS PULMWS During your visit today, we recorded the following information about you: Pulse Respiration Blood pressure Weight 101/minute 18/minute 118/72 75.3 kg Shayla Rogers MD 10/09/2024 4:40 PM Signed . Respiratory Nicollet Note Patient name: Jake Chairez PCP: Avni [...] DATE OF EXAM: Jun 23 2024 3:30PM [facility] 0541 - CT CHEST WO IVCON / [...] history of colonic polyps Sarcoidosis of lung ([facility]) 04/2017 Transbronchial biopsy, transbronchial needle aspiration biopsy of nodes, and bronchoalveolar lavage 04/2017. Type 2 diabetes ([facility]) 10/26/2022 Unspecified asthma(493.90) ALLERGIES Allergen Reactions Advair [...] mg tablet (more content not included)... Normal [facility] CNOVon 10-06-2024 CNOV Office Visit (PULMWS ) JAKE CHAIREZ ([id number]) 1975 M Date Time Provider Department 10/06/24 1:00 PM ELMIRA FARRAR PULANDREW During your visit today, we recorded the following information about you: Pulse Respiration Blood pressure Weight 100/minute 20/minute 124/78 75.5 kg Elmira Farrar APRN.CNP 10/06/2024 2:51 PM Signed LUNG SCREENING VISIT [...] 50% of waking hrs. Modified Medical Research [place] Dyspnea Scale (MMRC) I am too breathless [...] 20-100 mcg/actua (more content not included)... Normal [facility] Robert 10-06-2024 [facility] (INTMWS[facility] JAKE CHAIREZ ([id number]) 1975 M Date Time Provider Department 10/06/24 AVNI SALCEDO During your visit today, we recorded the following information about you: Kailyn RubioAURORA 10/06/2024 3:55 PM Signed Electronic PA rec'd and completed for budesonide. This was approved rior authorization approved Payer: [facility] Note from payer: Your PA request for [id number] was approved for 365 days. The PA# assigned is [id number]. Approval Details Authorization number: [id number] Authorized from October 06, 2024 to October 05, 2025 Electronic appeal: Not supported View History Pharmacy Benefits Open Encounter JAKE CHAIREZ - MEDICAID ([facility]) Covered: Retail, Mail Order Unknown: Specialty, Long-Term Care BIN: [id number] : 1975 Group ID: PCN: [id number] Legal sex: M Group name: Address: [place] [id number] Medication Being Authorized budesonide (PULMICORT) 0.5 mg/2 mL nebulizer solution Use 2 mL via nebulizer once daily. Dispense: 2 mL Refills: 2 Start: 10/06/2024 Class: Normal Diagnoses: Asthma, moderate persistent, well-controlled; Chronic allergic rhinitis This order has been released to its destination. To be filled at: [facility] - [place], [place] Pharmacy notified. Allergies As of Date: [...] Date Reviewed: 10/06/2024 Reviewed by: Elmira Farrar APRN.HOSPICE VOLUNTEER - Fully Assessed Reason for Visit: Insurance Authorization [[id number]] Prescriptions as of 10/06/2024 - budesonide (PULMICORT) [...] capsule by mouth once daily. - rizatriptan (MAXALT-SHOE DRESSER) 10 mg disintegrating tablet Take 1 tablet [...] [J4* C (more content not included)... Normal [facility] 09-01-2024 [facility] (FAMPWS) JAKE CHAIREZ ([id number]) 1975 M Date Time Provider Department 09/01/24 [facility] During your visit today, we recorded [...] capsule by mouth once daily. - rizatriptan (MAXALT-SHOE DRESSER) 10 mg disintegrating tablet Take 1 tablet [...] nevus [D22. (more content not included)... Normal [facility] 08-18-2024 [facility] Tele[facility] (FAMPWS) JAKE CHAIREZ ([id number]) 1975 M Date Time Provider Department 08/18/24 [facility] During your visit today, we recorded [...] capsule by mouth once daily. - rizatriptan (MAXALT-SHOE DRESSER) 10 mg disintegrating tablet Take 1 tablet [...] 04/19/2013 M (more content not included)... Normal [facility] CBC panel Auto (Bld)on 08-15 Erythrocyte distribution width (RBC) [Ratio] 11.9 % Normal 11.5-15.0 [facility] Comment on above: Order Comment: Speci men Type: BLOOD SPECIMENOrdering Facility: [facility] Address: [address] [place] [address] Performed By: #### 5 8410-2 ####[facility] LABCLIA [id number] [place] [address] [place] Hematocrit (Bld) [Volume fraction] 39.8 % Normal 39.0-51.0 [facility] Comment on above: Order Comment: Speci men Type: BLOOD SPECIMENOrdering Facility: [facility] Address: [address] [place] [address] Performed By: #### 5 8410-2 ####[facility] LABCLIA [id number] [place] [id number] [place] Hemoglobin (Bld) [Mass/Vol] 13.4 g/dL Normal 13.0-17.0 [facility] Comment on above: Order Comment: Speci men Type: BLOOD SPECIMENOrdering Facility: [facility] Address: [address] [place] [address] Performed By: #### 5 8410-2 ####[facility] LABIA [id number] [place] [address] [place] MCH (RBC) [Entitic mass] 30.5 pg Normal 26.0-34.0 [facility] Comment on above: Order Comment: Speci men Type: BLOOD SPECIMENOrdering Facility: [facility] Address: [address] [place] [address] Performed By: #### 5 8410-2 ####[facility] [id number] [place] [address] [place] MCHC (RBC) [Mass/Vol] 33.7 g/dL Normal 30.5-36.0 [facility] Comment on above: Order Comment: Speci men Type: BLOOD SPECIMENOrdering Facility: [facility] Address: [address] [place] [address] Performed By: #### 5 8410-2 ####[facility] [id number] [place] [address] [place] MCV (RBC) [Entitic vol] 90.5 fL Normal 80.0-100.0 [facility] Comment on above: Order Comment: Speci men Type: BLOOD SPECIMENOrdering Facility: [facility] Address: [address] [place] [address] Performed By: #### 5 8410-2 ####[facility] [id number] [place] [address] [place] Nucleated RBC (Bld) [#/Vol] 10*3/uL Normal <0.01 [facility] Comment on above: Order Comment: Speci men Type: BLOOD SPECIMENOrdering Facility: [facility] Address: [address] [place] [address] Performed By: #### 5 8410-2 ####[facility] [id number] [place] [address] [place] Platelet mean volume (Bld) [Entitic vol] 9.8 fL Normal 9.0-12.7 [facility] Comment on above: Order Comment: Speci men Type: BLOOD SPECIMENOrdering Facility: [facility] Address: [address] [place] [address] Performed By: #### 5 8410-2 ####[facility] LABCLIA [id number] [place] [address] [place] Platelets (Bld) [#/Vol] 247 10*3/uL Normal 150-400 [facility] Comment on above: Order Comment: Speci men Type: BLOOD SPECIMENOrdering Facility: [facility] Address: [address] [place] [address] Performed By: #### 5 8410-2 ####[facility] LABCLIA [id number] [place] [address] [place] RBC (Bld) [#/Vol] 4.40 10*6/uL Normal 4.20-6.00 [facility] Comment on above: Order Comment: Speci men Type: BLOOD SPECIMENOrdering Facility: [facility] Address: [address] [place] [address] Performed By: #### 5 8410-2 ####[facility] LABCLIA [id number] [place] [address] [place] WBC (Bld) [#/Vol] 6.83 10*3/uL Normal 3.70-11.00 [facility] Comment on above: Order Comment: Speci men Type: BLOOD SPECIMENOrdering Facility: [facility] Address: [address] [place] [address] Performed By: #### 5 8410-2 ####[facility] LABCLIA [id number] [place] [address] [place] Comprehensive metabolic 2000 panelon 08-15-2024 Albumin [Mass/Vol] 4.6 g/dL Normal 3.9-4.9 [facility] Comment on above: Order Comment: Speci men Type: BLOOD SPECIMEN [facility] Address: [address] [place] [id number] Performed By: #### 5 5454-3 #### [facility] CLIA [id number] [address] [place] [address] [place] ALP [Catalytic activity/Vol] 127 U/L High 38-113 [facility] Comment on above: Order Comment: Speci men Type: BLOOD SPECIMEN [facility] Address: [address] [place] [address] Performed By: #### 5 5454-3 #### [facility] CLIA [id number] [address] [place] [address] [place] ALT [Catalytic activity/Vol] 57 U/L High 10-54 [facility] Comment on above: Order Comment: Speci men Type: BLOOD SPECIMEN [facility] Address: [address] [place] [address] Performed By: #### 5 5454-3 #### [facility] CLIA [id number] [address] [place] [address] [place] Anion gap [Moles/Vol] 14 mmol/L Normal 8-15 [facility] Comment on above: Order Comment: Speci men Type: BLOOD SPECIMEN [facility] Address: [address] [place] [address] Performed By: #### 5 5454-3 #### [facility] CLIA [id number] [address] [place], [place] [address] [place] AST [Catalytic activity/Vol] 28 U/L Normal 14-40 [facility] Comment on above: Order Comment: Speci men Type: BLOOD SPECIMEN [facility] Address: [address] [place], [place] [address] Performed By: #### 5 5454-3 #### [facility] CLIA [id number] [address] [place], [place] [address] [place] Bilirubin [Mass/Vol] 0.4 mg/dL Normal 0.2-1.3 [facility] Comment on above: Order Comment: Speci men Type: BLOOD SPECIMEN [facility] Address: [address] [place] [address] Performed By: #### 5 5454-3 #### [facility] CLIA [id number] [address] [place] [address] [place] Calcium [Mass/Vol] 10.2 mg/dL Normal 8.5-10.2 [facility] Comment on above: Order Comment: Speci men Type: BLOOD SPECIMEN [facility] Address: [address] [place] [address] Performed By: #### 5 5454-3 #### [facility] CLIA [id number] [address] [place] [address] [place] Chloride [Moles/Vol] 101 mmol/L Normal 98-107 [facility] Comment on above: Order Comment: Speci men Type: BLOOD SPECIMEN [facility] Address: [address] [place] [address] Performed By: #### 5 5454-3 #### [facility] CLIA [id number] [address] [place] [address] [place] CO2 [Moles/Vol] 25 mmol/L Normal 22-30 [facility] Comment on above: Order Comment: Speci men Type: BLOOD SPECIMEN [facility] Address: [address] [place], [place] [address] Performed By: #### 5 5454-3 #### [facility] CLIA [id number] [address] [place] [address] [place] Creatinine [Mass/Vol] 0.90 mg/dL Normal 0.73-1.22 [facility] Comment on above: Order Comment: Speci men Type: BLOOD SPECIMEN [facility] Address: [address] [place] [address] Performed By: #### 5 5454-3 #### [facility] CLIA [id number] [address] [place] [address] [place] [place] Creatinine and Glomerular filtration rate.predicted panel (S/P/Bld) 103 mL/min/1.73m??? Normal >=60 [facility] Comment on above: Order Comment: Mk gilmore Type: BLOOD SPECIMEN Ordering Facility: [facility] Address: [address] [place] [address] Result Comment: Darling mated Glomerular Filtration Rate [...] GFR. Performed By: #### 5 5454-3 #### [facility] CLIA [id number] [address] [place] [address] [place] Glucose [Mass/Vol] 138 mg/dL High 74-99 [facility] Comment on above: Order Comment: Mk gilmore Type: BLOOD SPECIMEN Ordering Facility: [facility] Address: [address] [place] [address] Result Comment: The [place] Diabetes Association (ADA) provides guidance for cutoff [...] Standards of Medical Care in Diabetes 2016, [place] [employer]. Diabetes Care. 2016.39(Suppl 1). Performed By: #### 5 5454-3 #### [facility] CLIA [id number] [address] [place] [address] [place] Potassium [Moles/Vol] 4.0 mmol/L Normal 3.7-5.1 [facility] Comment on above: Order Comment: Speci men Type: BLOOD SPECIMEN Ordering Facility: [facility] Address: [address] [place] [address] Performed By: #### 5 5454-3 #### [facility] CLIA [id number] [address] [place], [place] [address] [place] Protein [Mass/Vol] 7.0 g/dL Normal 6.3-8.0 [facility] Comment on above: Order Comment: Speci men Type: BLOOD SPECIMEN Ordering Facility: [facility] Address: [address] [place] [address] Performed By: #### 5 5454-3 #### [facility] CLIA [id number] [address] [place], [place] [address] [place] Sodium [Moles/Vol] 140 mmol/L Normal 136-144 [facility] Comment on above: Order Comment: Speci men Type: BLOOD SPECIMEN Ordering Facility: [facility] Address: [address] [place] [address] Performed By: #### 5 5454-3 #### [facility] CLIA [id number] [address] [place], [place] [address] [place] Urea nitrogen [Mass/Vol] 13 mg/dL Normal 9-24 [facility] Comment on above: Order Comment: Speci men Type: BLOOD SPECIMEN Ordering Facility: [facility] Address: [address] [place], [place] [address] Performed By: #### 5 5454-3 #### [facility] CLIA [id number] [address] [place] [address] [place] [facility] Ferritin [Mass/Vol] 77.4 ng/mL Normal 30.3-565.7 [facility] Comment on above: Order Comment: Speci men Type: BLOOD SPECIMEN Ordering Facility: [facility] Address: [address] [place] [address] Performed By: #### 5 5454-3 #### [facility] CLIA [id number] [address] [place] [address] [place] Iron and Iron binding capaci ty panelon 08-15-2024 Iron [Mass/Vol] 77 ug/dL Normal 41-186 [facility] Comment on above: Order Comment: Speci men Type: BLOOD SPECIMEN Ordering Facility: [facility] Address: [address] [place] [address] Performed By: #### 5 5454-3 #### [facility] CLIA [id number] [address] [place] [address] STATES OF [facility] Iron binding capacity [Mass/Vol] 369 ug/dL Normal 232-386 [facility] Comment on above: Order Comment: Speci men Type: BLOOD SPECIMEN Ordering Facility: [facility] Address: [address] [place] [address] Performed By: #### 5 5454-3 #### [facility] CLIA [id number] [address] [place] [address] [place] Iron/TIBC [Molar ratio] 20.9 % Normal 15.0-57.0 [facility] Comment on above: Order Comment: Speci men Type: BLOOD SPECIMEN Ordering Facility: [facility] Address: [address] [place] [address] Performed By: #### 5 5454-3 #### [facility] CLIA [id number] [address] [place] [address] [place] Robert 07-02-2024 LUIS Telephone (FAMPWS) JAKE CHAIREZ ([id number]) 1975 M Date Time Provider Department 07/02/24 AVNI SALCEDO During your visit today, we [...] by RECTAL route twice daily. - rizatriptan (MAXALT-SHOE DRESSER) 10 mg disintegrating tablet Take 1 tablet [...] nevus of (more content not included)... Normal [facility] Robert 06-26-2024 MELISSAN Telephone (FAMPWS) JAKE CHAIREZ ([id number]) 1975 Lita Date Time Provider Department 06/26/24 AVNI SALCEDO During your visit today, we [...] 2-3 weeks DO Archie Bell Linda M, LPN 06/26/2024 11:09 AM Signed Spoke with pt [...] [E87.6] Order(s):COMPREHENSIVE METABOLIC PANEL [SQCMP] Order #: [id number] FUTURE Prescriptions as of 06/26/2024 - cyclobenzaprine [...] by RECTAL route twice daily. - rizatriptan (MAXALT-SHOE DRESSER) 10 mg disintegrating tablet Take 1 tablet [...] mention o (more content not included)... 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 ROOFER Ordering physician: AVNI SALCEDO Indication: Hypertension Technologist: Yolanda Foster [facility] Interpreting physician: Maury Huntley MD PATIENT: Name: [...] * * * Final * * * [employer] : [id number] goDynamicsSISUID [facility] Telephone (FAMPWS) JAKE CHAIREZ ([id number]) 1975 M Date Time Provider Department 06/24/24 AVNI SALCEDO [facility] During your visit today, we recorded the following information about you: Avni Salcedo, 06/24/2024 9:57 AM Addendum Please inform patient [...] Signed Patient active MyChart. Patient notified via I Had Cancer message. Liz Alvarenga MA Allergies As of [...] by RECTAL route twice daily. - rizatriptan (MAXALT-SHOE DRESSER) 10 mg disintegrating tablet Take 1 tablet [...] W/O ME (more content not included)... Normal [facility] CT CHEST WO IVCONon 06-23-20 CT CHEST WO IVCON * * *Final Report* * * DATE OF EXAM: Jun 23 2024 3:30PM [facility] 0541 - CT CHEST WO IVCON / [...] nodules. No new or enlarging pulmonary nodules. Casino Shift Manager: ELMO Transcribe Date/Time: Jun 26 2024 7:33A Dictated by : MYNOR OSORIO MD This examination was interpreted and the report reviewed and electronically signed by: MYNOR OSORIO MD on Jun 26 2024 7:43AM EST [id number] Normal [facility] 25(OH)D3 SerPl-mCncon 2023 25-hydroxyvitamin D3 [Mass/Vol] 64.0 ng/mL Normal 31.0-80.0 [facility] Comment on above: Order Comment: Mk gilmore Type: BLOOD SPECIMENOrdering Facility: [facility] Address: [address] [place] [address] Result Comment: Clas sification of 25 [place] Vitamin D status: Deficiency/Insufficiency: < or = 30 ng/ml. Sufficiency/Optimal Levels: 31-80 ng/mL Toxicity: > 100 ng/mL. Test performed by chemiluminescent immunoassay. Performed By: #### 1 989-3 ####[facility] [id number] [place] [address] [place] Comprehensive metabolic 2000 panelon 06-18-2024 Albumin [Mass/Vol] 4.8 g/dL Normal 3.9-4.9 [facility] Comment on above: Order Comment: Mk gilmore Type: BLOOD SPECIMEN Ordering Facility: [facility] Address: [address] [place] [address] Performed By: #### 5 5454-3 #### [facility] CLIA [id number] [address] [place] [address] [place] ALP [Catalytic activity/Vol] 96 U/L Normal 38-113 [facility] Comment on above: Order Comment: Mk gilmore Type: BLOOD SPECIMEN Ordering Facility: [facility] Address: [address] [id number] Performed By: #### 5 5454-3 #### [facility] CLIA [id number] [address] [place] [address] [place] ALT [Catalytic activity/Vol] 151 U/L High 10-54 [facility] Comment on above: Order Comment: Speci men Type: BLOOD SPECIMEN Ordering Facility: [facility] Address: [address] [place] [address] Performed By: #### 5 5454-3 #### [facility] CLIA [id number] [address] [place] [address] [place] Anion gap [Moles/Vol] 14 mmol/L Normal 8-15 [facility] Comment on above: Order Comment: Speci men Type: BLOOD SPECIMEN Ordering Facility: [facility] Address: [address] [place] [address] Performed By: #### 5 5454-3 #### [facility] CLIA [id number] [address] [place] [address] [place] AST [Catalytic activity/Vol] 97 U/L High 14-40 [facility] Comment on above: Order Comment: Speci men Type: BLOOD SPECIMEN Ordering Facility: [facility] Address: [address] [place] [address] Performed By: #### 5 5454-3 #### [facility] CLIA [id number] [address] [place], [place] [address] [place] Bilirubin [Mass/Vol] 0.8 mg/dL Normal 0.2-1.3 [facility] Comment on above: Order Comment: Speci men Type: BLOOD SPECIMEN Ordering Facility: [facility] Address: [address] [place] [address] Performed By: #### 5 5454-3 #### [facility] CLIA [id number] [address] [place], [place] [address] [place] Calcium [Mass/Vol] 9.8 mg/dL Normal 8.5-10.2 [facility] Comment on above: Order Comment: Speci men Type: BLOOD SPECIMEN Ordering Facility: [facility] Address: [address] [place] [address] Performed By: #### 5 5454-3 #### [facility] CLIA [id number] [address] [place] [address] [place] Chloride [Moles/Vol] 101 mmol/L Normal 98-107 [facility] Comment on above: Order Comment: Speci men Type: BLOOD SPECIMEN Ordering Facility: [facility] Address: [address] [place] [address] Performed By: #### 5 5454-3 #### [facility] CLIA [id number] [address] [place] [address] [place] CO2 [Moles/Vol] 25 mmol/L Normal 22-30 [facility] Comment on above: Order Comment: Speci men Type: BLOOD SPECIMEN Ordering Facility: [facility] Address: [address] [place] [address] Performed By: #### 5 5454-3 #### [facility] CLIA [id number] [address] [place] [address] [place] Creatinine [Mass/Vol] 0.84 mg/dL Normal 0.73-1.22 [facility] Comment on above: Order Comment: Speci men Type: BLOOD SPECIMEN Ordering Facility[facility] Address: [address] [place] [address] Performed By: #### 5 5454-3 #### [facility] CLIA [id number] [address] [place] [address] [place] Creatinine and Glomerular filtration rate.predicted panel (S/P/Bld) 106 mL/min/1.73m??? Normal >=60 [facility] Comment on above: Order Comment: Speci men Type: BLOOD SPECIMEN Ordering Facility: [facility] Address: [address] [place] [address] Result Comment: Darling mated Glomerular Filtration Rate [...] GFR. Performed By: #### 5 5454-3 #### [facility] CLIA [id number] [address] [place] [address] [place] Glucose [Mass/Vol] 108 mg/dL High 74-99 [facility] Comment on above: Order Comment: Speci men Type: BLOOD SPECIMEN Ordering Facility: [facility] Address: [address] [place] [address] Result Comment: The [place] Diabetes Association (ADA) provides guidance for cutoff [...] Standards of Medical Care in Diabetes 2016, [place] [employer]. Diabetes Care. 2016.39(Suppl 1). Performed By: #### 5 5454-3 #### [facility] CLIA [id number] [address] [place], [place] [address] [place] Potassium [Moles/Vol] 3.3 mmol/L Low 3.7-5.1 [facility] Comment on above: Order Comment: Mk men Type: BLOOD SPECIMEN Ordering Facility: [facility] Address: [address] [place], [place] [address] Performed By: #### 5 5454-3 #### [facility] CLIA [id number] [address] [place] [address] [place] Protein [Mass/Vol] 7.2 g/dL Normal 6.3-8.0 [facility] Comment on above: Order Comment: Speci men Type: BLOOD SPECIMEN Ordering Facility: [facility] Address: [address] [place] [address] Performed By: #### 5 5454-3 #### [facility] CLIA [id number] [address] [place] [address] [place] Sodium [Moles/Vol] 140 mmol/L Normal 136-144 [facility] Comment on above: Order Comment: Speci men Type: BLOOD SPECIMEN Ordering Facility[facility] Address: [address] [place] [address] Performed By: #### 5 5454-3 #### [facility] CLIA [id number] [address] [place] [address] [place] Urea nitrogen [Mass/Vol] 17 mg/dL Normal 9-24 [facility] Comment on above: Order Comment: Speci men Type: BLOOD SPECIMEN Ordering Facility[facility] Address: [address] [place] [address] Performed By: #### 5 5454-3 #### [facility] CLIA [id number] [address] [place] [address] [place] Lipid 1996 panelon 4 Cholesterol [Mass/Vol] 205 mg/dL High <200 [facility] Comment on above: Order Comment: Speci men Type: BLOOD SPECIMEN Order[facility] Address: [address] [place] [address] Result Comment: <200 mg/dL, Desirable 200-239 mg/dL, Borderline high >239 mg/dL, High Performed By: #### 5 5454-3 #### [facility] CLIA [id number] [address] [place] [address] [place] Cholesterol in HDL [Mass/Vol] 104 mg/dL Normal >39 [facility] Comment on above: Order Comment: Mk gilmore Type: BLOOD SPECIMEN Ordering Facility[facility] Address: [address] [place] [address] Result Comment: 40-5 9 mg/dL, Acceptable >59 mg/dL, High: Negative risk factor for coronary heart disease <40 mg/dL, Low: Positive risk factor for coronary heart disease Performed By: #### 5 5454-3 #### [facility] CLIA [id number] [address] [place] [address] Cholesterol in LDL [Mass/Vol] 77 mg/dL Normal <100 [facility] Comment on above: Order Comment: Mk gilmore Type: BLOOD SPECIMEN Ordering Facility[facility] Address: [address] [place] [address] Result Comment: <100 mg/dL, Optimal 100-129 mg/dL, Near optimal/above optimal 130-159 mg/dL, Borderline high 160-189 mg/dL, High >189 mg/dL, Very high Secondary prevention optimal LDL Cholesterol levels are recommended to be < 70 mg/dL Performed By: #### 5 5454-3 #### [facility] CLIA [id number] [address] [place] [address] Cholesterol in LDL/Cholesterol in HDL [Mass ratio] 0.74 {ratio} Normal <2.54 [facility] Comment on above: Order Comment: Mk deirdre Type: BLOOD SPECIMEN Order[facility] Facility[facility] Address: [address] [place] [address] Result Comment: Refe rence: 1. National Cholesterol Education Program ATP III Guideline At-A-Glance Quick Desk Reference: National Heart, Lung, and Blood Nicollet. National Institutes of Health. 2001: NIH Publication No. 01-3305. 2. An International Atherosclerosis Society position paper: global recommendations for the management of dyslipidemia: executive summary, Atherosclerosis. 2014: 232(2):410-413. Performed By: #### 5 5454-3 #### [facility] CLIA [id number] [address] [place], [place] [address] [place] Cholesterol in VLDL [Mass/Vol] 24 mg/dL Normal <30 [facility] Comment on above: Order Comment: Speci men Type: BLOOD SPECIMEN Ordering Facility[facility] Address: [address] [place], [place] [address] Performed By: #### 5 5454-3 #### [facility] CLIA [id number] [address] [place], [place] [address] [place] Cholesterol non HDL [Mass/Vol] 101 mg/dL Normal <130 [facility] Comment on above: Order Comment: Speci men Type: BLOOD SPECIMEN Ordering Facility[facility] Address: [address] [place] [address] Result Comment: <130 mg/dL, Optimal 130-159 mg/dL, Near optimal/above optimal 160-189 mg/dL, Borderline high 190-219 mg/dL, High >219 mg/dL, Very high Secondary prevention optimal non HDL Cholesterol levels are recommended to be <100 mg/dL Performed By: #### 5 5454-3 #### [facility] CLIA [id number] [address] [place] [address] [place] Cholesterol.total/Cho lesterol in HDL [Mass ratio] 1.97 {ratio} Normal <5.10 [facility] Comment on above: Order Comment: Speci men Type: BLOOD SPECIMEN Ordering Facility[facility] Address: [address] [place] [address] Performed By: #### 5 5454-3 #### [facility] CLIA [id number] [address] [place], [place] [address] [place] FASTING TIME 12 hrs Normal [facility] Comment on above: Order Comment: Speci men Type: BLOOD SPECIMEN Ordering Facility[facility] Address: [address] [place], [place] [address] Performed By: #### 5 5454-3 #### [facility] CLIA [id number] [address] [place], [place] [address] [place] Triglyceride [Mass/Vol] 121 mg/dL Normal <150 [facility] Comment on above: Order Comment: Speci men Type: BLOOD SPECIMEN Order[facility] Facility[facility] Address: [address] [place] [address] Result Comment: <150 mg/dL, Normal 150-199 mg/dL, Borderline high 200-499 mg/dL, High >499 mg/dL, Very high Performed By: #### 5 5454-3 #### [facility] CLIA [id number] [address] [place] [address] [place] Methylmalonate SerPl-sCncon 06-18-2024 Methylmalonate [Moles/Vol] 0.14 umol/L Normal <=0.40 [facility] Comment on above: Order Comment: Speci men Type: BLOOD SPECIMENOrdering Facility: [facility] Address: [address] [place] [address] Result Comment: This test was developed, and its performance characteristics determined by the [facility] Department of Pathology and Laboratory Medicine. It has not been cleared or approved by the FDA. The [facility] Department of Pathology and Laboratory Medicine is regulated under CLIA as qualified to perform high-complexity testing. This test is used for clinical purposes. It should not be regarded as investigational or for research. Performed By: #### 1 3964-2 ####[facility] [id number] [place] [address] [place] T4 Free SerPl-mCncon 024 Free T4 [Mass/Vol] 1.5 ng/dL Normal 0.9-1.7 [facility] Comment on above: Order Comment: Speci men Type: BLOOD SPECIMEN Order[facility] Address: [address] [place] [address] Performed By: #### 5 5454-3 #### [facility] CLIA [id number] [address] [place] [address] [place] TSH SerPl-aCncon 10-09-2024 TSH Qn 0.708 m[IU]/L Normal 0.270-4.20 0 [facility] Comment on above: Order Comment: Speci men Type: BLOOD SPECIMEN [facility] Address: [address] [place] [address] Performed By: #### 5 5454-3 #### [facility] CLIA [id number] [address] [place] [address] OF [facility] Vit B12 [facility] 024 Cobalamin (Vitamin B12) [Mass/Vol] 390 pg/mL Normal 232-1245 [facility] Comment on above: Order Comment: Speci men Type: BLOOD SPECIMEN Order[facility] Address: [address] [place] [address] Performed By: #### 5 5454-3 #### [facility] CLIA [id number] [address] [place] [address] CNOVon 06-16-2024 CNOV Office Visit (FAMPWS ) JAKE CHAIREZ ([id number]) 1975 M Date Time Provider Department 06/16/24 3:20 PM AVNI SALCEDO FAMPWS During your visit today, we recorded the following information about you: Pulse Respiration Blood pressure Weight 92/minute 14/minute 128/68 71.6 kg Avni Salcedo DO 06/18/2024 9:45 PM Signed CC: Jakedaniele Garciaiser is a 49 year old male who [...] Suppository by RECTAL route twice daily. rizatriptan (MAXALT-SHOE DRESSER) 10 mg disintegrating tablet Take 1 tablet [...] Status Bean (more content not included)... Normal [facility] XR FOOT 3V AP/LAT/OBL LTon 1 XR [...] joint spaces are maintained. No osseous erosion. Casino Shift Manager: [facility] Transcribe Date/Time: Jun 19 2024 10:38P Dictated by : DIANE MARTINEZ MD This examination was interpreted and the report reviewed and electronically signed by: DIANE MARTINEZ MD on Jun 19 2024 10:38PM EST [id number] [facility] XR HAND 3V PA/LAT/OBL LTon 1 XR [...] joint spaces are preserved. No osseous erosion. Casino Shift Manager: [facility] Transcribe Date/Time: Jun 19 2024 10:36P Dictated by : DIANE MARTINEZ MD This examination was interpreted and the report reviewed and electronically signed by: DIANE MARTINEZ MD on Jun 19 2024 10:38PM EST [id number] [facility] CNOVon 04-25-2024 CNOV Office Visit (GENSWS ) JAKE CHAIREZ ([id number]) 1975 Date Time Provider Department 04/25/24 1:00 PM JOY SHEARER [facility] During your visit today, we recorded the following information about you: Joy Shearer APRN.HOSPICE VOLUNTEER 04/25/2024 1:31 PM Signed FOLLOW UP VISIT - ENDOSCOPY Jake Chairez 1975 [id number] REFERRING PHYSICIAN: No referring provider defined for [...] Resected and retrieved. Clip was placed. Clip orchid transplanter: Fluentify. - The entire examined colon is normal. [...] as needed for worsening/no improvement. Joy Shearer APRN.HOSPICE VOLUNTEER Allergies As of Date: 04/25/2024 Noted Allergy [...] Diagnosis:Diarrhea, unspecifie (more content not included)... Normal [facility] ANES POSTPROC EVALon 024 ANES POSTPROC EVAL HNO ID: [id number] Author: RAMÍREZ ORTIZ DO Service: Anesthesiology Author Type: Anesthesiologist Type: Anesthesia Postprocedure Evaluation Filed: 04/16/2024 13:29 Note Text: POST ANESTHESIA EVALUATION NOTE : 1975 Procedure Summary Date: 04/16/24 Room / Location: [facility] Endoscopy Anesthesia Start: 1048 Anesthesia Stop: 1126 Procedures: COLONOSCOPY SCREENING EGD DIAGNOSTIC Diagnosis: Screening for colon cancer Hyperlipidemia, mixed Gastroesophageal reflux disease, unspecified whether esophagitis present Irritable bowel syndrome with constipation Diarrhea, unspecified type Personal history of colonic polyps (Chronic diarrhea) (Suspected esophageal reflux) Scheduled Providers: John Chowdhury MD; Porsha Irwin APRN.EVENT EXECUTIVE; Ramírez Ortiz DO Responsible Provider: Ramírez Ortiz [...] April 16, 2024 TIME: 1:28 PM CSN: [id number] Normal [facility] ANES PRE-OPon 04-16-2024 ANES PRE-OP HNO ID: [id number] Author: RAMÍREZ ORTIZ DO Service: Anesthesiology Author Type: Anesthesiologist Type: Anesthesia Preprocedure Evaluation Filed: 04/16/2024 09:41 Note Text: ANESTHESIOLOGY DAY OF SURGERY NOTE : 1975 Procedure Information Date/Time: 04/16/24 1030 Scheduled providers: John Chowdhury MD; Porsha Irwin APRN.EVENT EXECUTIVE; Ramírez Ortiz DO Procedures: COLONOSCOPY SCREENING EGD DIAGNOSTIC Location: [facility] Endoscopy Estimated body mass index is 25.26 [...] none. Vitals Value Taken Time BP 134/89 04/16/24919 Pulse 107 04/16/24919 Resp 16 04/16/24919 Temp 36.4 ?C (97.5 ?F) 04/16/24919 SpO2 99 % 04/16/24919 Outpatient Medications as of 04/16/2024 Medication Sig [...] Suppository by RECTAL route twice daily. rizatriptan (MAXALT-SHOE DRESSER) 10 mg disintegrating tablet Take 1 tablet [...] April 16, 2024 TIME: 9:40 AM CSN: [id number] Normal [facility] Colonoscopyon 04-16-2024 Colonoscopy [facility] Gastrointestinal Endoscopy Patient Name: Jake Chairez Procedure Date: 04/16/2024 10:57 AM Date of : 1975 Admit Type: Outpatient Age: 49 Room: [facility] Gender: Male Note Status: Finalized Attending MD: John Chowdhury MD, [id number] Procedure: Colonoscopy Indications: Chronic diarrhea Providers: John [...] by the physician, the nurse and the hog cooler in the procedure room. Airway Examination: normal [...] one hemostatic clip was successfully placed. Clip orchid transplanter: Fluentify. The colon (entire examined portion) appeared normal. [...] Resected and retrieved. Clip was placed. Clip orchid transplanter: Fluentify. - The entire examined colon is normal. [...] for review. Procedure Code(s): --- Professional --- 13264, Colonoscopy, flexible; with removal of tumor(s), polyp(s), or other lesion(s) by snare technique 64657, 59, Colonoscopy, flexible; with biopsy, single or multiple CPT copyright 2020 [employer]. All rights reserved. The codes documented in this report are preliminary and upon cut in worker review may be revised to meet current compliance requirements. Attending Participation: I personally performed the en (more content not included)... Normal [facility] Colonoscopy Study observatio non 04-16-2024 [facility] Gastrointestinal Endoscopy Patient Name: Jake Chairez Procedure Date: 04/16/2024 10:57 AM Date of : 1975 Admit Type: Outpatient Age: 49 Room: [facility] Gender: Male Note Status: Finalized Attending MD: John Chowdhury MD, [id number] Procedure: Colonoscopy Indications: Chronic diarrhea Providers: John [...] by the physician, the nurse and the hog cooler in the procedure room. Airway Examination: normal [...] one hemostatic clip was successfully placed. Clip orchid transplanter: Fluentify. The colon (entire examined portion) appeared normal. [...] Resected and retrieved. Clip was placed. Clip orchid transplanter: Fluentify. - The entire examined colon is normal. Biopsied. (more content not included)... PROVATION [facility] Radiology Study observation (narrative) [facility] EGD Study observation Narrat melanie 04-16-2024 [facility] Gastrointestinal Endoscopy Patient Name: Jake Chairez Procedure Date: 04/16/2024 10:41 AM Date of : 1975 Admit Type: Outpatient Age: 49 Room: [facility] Gender: Male Note Status: Finalized Attending MD: John Chowdhury MD, [id number] Procedure: Upper GI endoscopy Indications: Suspected esophageal [...] by the physician, the nurse and the hog cooler in the procedure room. Respiratory Examination: clear [...] 1 week. Procedure Code(s): --- Professional --- 98632, Esophagogastroduodenoscopy, flexible, transoral; with biopsy, single or multiple CPT copyright 2020 [employer]. All rights reserved. The codes documented in this report are preliminary and upon cut in worker review may be revised to meet current compliance requirements. Attending Participation: I was present and participated during the entire procedure, including non-ann portions, and during the administration and monitoring of Moderate Sedation. Scope In: 10:54:04 AM Scope Out: 10:57:00 AM MD John Parks MD (more content not included)... PROVATION [facility] Radiology Study observation (narrative) [facility] GLUCOSE, BLOOD (POC)on 04-16 Glucose [Mass/Vol] 91 mg/dL 74 - 99 mg/dL [facility] Comment on above: Location:[facility], [facility] [place], [place], [address] The Accu-Chek Inform II glucose meter has [...] blood gas instrument) in the above situations. [facility] Glucose [Mass/Vol] 99 mg/dL 74 - 99 mg/dL [facility] Comment on above: Location:[facility], [address] [place], [place], [address] The Accu-Chek Inform II glucose meter has [...] blood gas instrument) in the above situations. [facility] HISTORY PHYSICALon HISTORY PHYSICAL HNO ID: [id number] Author: JOHN CHOWDHURY MD Service: ? Author [...] Suppository by RECTAL route twice daily. rizatriptan (MAXALT-SHOE DRESSER) 10 mg disintegrating tablet Take 1 tablet by mouth as needed for migraine headache (see administration instructions). May repeat in 2 hours if needed Cholecalciferol, Vitamin D3, 125 mcg (5,000 unit) cap Take 1 capsule by mouth once (more content not included)... [facility] SURGICAL PATHOLOGYon 024 ADDENDUM 1: [facility] Comment on above: Order Comment: Speci men Type: TISSUE SPECIMEN Ordering Facility: [facility] Address: [address] [place], [place] [id number] Result Comment: C. I mmunohistochemical stains for CMV, HSV I/II, and stain for PAS/D are negative for viral inclusions and fungal organisms, respectively. Laboratory Developed Test (LDT) Disclaimer: Performance characteristics of immunohistochemical, immunofluorescent and chromogenic in-situ hybridization tests have been determined by the performing laboratory within [facility]???s Sergei Nevarez Pathology and Laboratory Medicine Department ([facility], [facility], [facility], [facility], [facility], [facility], or [facility]) in a manner consistent with CLIA [...] 12:24 PM Performed By: #### S #### [facility] CLIA [id number] [address] [place] [address] [place] CASE REPORT Normal [facility] Comment on above: Order Comment: Jankii deirdre Type: TISSUE SPECIMEN Ordering Facility: [facility] Address: [address] [place] [address] Result Comment: Surg [facility] Pathology Report Case: [id number] Authorizing Provider: John Chowdhury MD Collected: 04/16/2024 10:56 AM Ordering Location: [facility] Endoscopy Received: 04/16/2024 12:16 PM Pathologist: Nuria Bernal MD Specimens: A) - Small Bowel, Jejunum, Biopsy B) - Stomach, Antrum, Biopsy C) - Esophagus, Distal, Biopsy D) - Esophagus, Mid, Biopsy E) - Small Bowel, Terminal Ileum, Biopsy F) - Colon, Ascending, Biopsy, random G) - Colon, Descending, Biopsy, random H) - Colon, Sigmoid, Polyp Performed By: #### S #### [facility] CLIA [id number] [address] [place] [address] [place] DIAGNOSIS COMMENT Due to the presence of focally active esophagitis, immunohistochemical stains for CMV, HSV 1/2, and stain for PAS/D are ordered on block C1 will be reported in addendum. Normal [facility] Comment on above: Order Comment: Speci deirdre Type: TISSUE SPECIMEN Ordering Facility: [facility] Address: [address] [place] [address] Performed By: #### S #### [facility] CLIA [id number] [address] [place] [address] [place] FINAL DIAGNOSIS Normal [facility] Comment on above: Order Comment: Speci men Type: TISSUE SPECIMEN Ordering Facility: [facility] Address: [address] [place] [address] Result Comment: A. D uodenum, biopsy: - [...] Hyperplastic polyp. Performed By: #### S #### [facility] CLIA [id number] [address] [place] [address] [place] FINAL PERFORMING LAB [facility] Comment on above: Order Comment: Speci deirdre Type: TISSUE SPECIMEN Ordering Facility: [facility] Address: [address] [place] [address] Result Comment: Diag nostic interpretation performed at [facility], [address] [place] [address] CLIA# [id number] Russian Teacher: Wade Culp M.D. Performed By: #### S #### [facility] CLIA [id number] [address] [place] [address] [place] GROSS DESCRIPTION Normal [facility] Comment on above: Order Comment: Speci men Type: TISSUE SPECIMEN Ordering Facility: [facility] Address: [address] [place] [address] Result Comment: A. S mall Bowel, Jejunum, [...] in one cassette. Gross examination performed at [address] April 16, 2024 4:21 PM Performed By: #### S #### [facility] CLIA [id number] [address] [place] [address] [place] [address] [place] Upper GI endoscopyon 08-07-2 024 Upper GI endoscopy [facility] Gastrointestinal Endoscopy Patient Name: Jake Chairez Procedure Date: 04/16/2024 10:41 AM Date of : 1975 Admit Type: Outpatient Age: 49 Room: [facility] Gender: Male Note Status: Finalized Attending MD: John Chowdhury MD, [id number] Procedure: Upper GI endoscopy Indications: Suspected esophageal [...] by the physician, the nurse and the hog cooler in the procedure room. Respiratory Examination: clear [...] 1 week. Procedure Code(s): --- Professional --- 91195, Esophagogastroduodenoscopy, flexible, transoral; with biopsy, single or multiple CPT copyright 2020 [employer]. All rights reserved. The codes documented in this report are preliminary and upon cut in worker review may be revised to meet current [...] Blood Loss: Estimated blood loss: none. [facility] Office Visit (FAMPWS ) JAKE CHAIREZ ([id number]) 1975 M Date Time Provider Department 03/05/24 1:20 PM [facility] During your visit today, we recorded the following information about you: Pulse Respiration Blood pressure Weight 104/minute 14/minute 118/70 71 kg Su Ham APRN.HOSPICE VOLUNTEER 03/05/2024 2:13 PM Signed Chief Complaint Patient [...] Flonase [Fluti (more content not included)... Normal [facility] MRI SHOULDER WO IVCON RIGHTo n 01-24-2023 [facility] XR Shoulder - right 3 Viewso n 11-03-2022 IMPRESSION: Acromioc lavicular joint space narrowing likely degenerative. Casino Shift Manager: PSCB Transcribe Date/Time: Nov 03 2022 4:50P Dictated by : DARON CORBIN MD This examination was interpreted and the report reviewed and electronically signed by: DARON CORBIN MD on Nov 03 2022 4:52PM [facility] DIVISION OF RADIOLOGY * * *Final Report* [...] soft tissue swelling. DIVISION OF RADIOLOGY [facility] * * *Final Report* [...] IMPRESSION: Acromioclavicular joint space narrowing likely degenerative. Casino Shift Manager: PSCB Transcribe Date/Time: Nov 03 2022 4:50P Dictated by : DARON CORBIN MD This examination was interpreted and the report reviewed and electronically signed by: DARON CORBIN MD on Nov 03 2022 4:52PM EST [facility] XR Shoulder - right 3 ViewsO rdered By: Cc Provider on 11-03-2022 [facility] Shoulder - right 3 Viewso n 11-01-2022 Radiology Study observation (narrative) [facility] MRI CERVICAL SPINE WO IVCONo n 10-18-2022 [facility] LUNG VOLUMESon 10-13-2022 ERV BOX (L) 0.83 L [facility] MEC00-23% POST (L/S) 1.94 L/S [facility] eland [facility] UAX28-63% PRE (L/S) 0.77 L/S [facility] land [facility] FEV1 PRE (L) 2.13 L [facility] FEV1/FVC POST (%) 66 % [facility] FEV1/FVC PRE (%) 55 % [facility] FEV1_POST (L) 2.77 L [facility] FRC Box (L) 3.68 L [facility] FVC POST (L) 4.19 L [facility] FVC PRE (L) 3.84 L [facility] IC BOX (L) 2.68 L [facility] PEF POST (L/S) 7.22 L/S [facility] PEF PRE (L/S) 6.37 L/S [facility] RV Box (L) 2.81 L [facility] RV/TLC Box (%) 44 % [facility] TLC Box (L) 6.46 L [facility] VC (L) BOX 3.51 L [facility] SPIROMETRY - BASELINE AND PO ST DILATORon 10-13-2022 [facility] CT CHEST WO IVCONon 09-29-19 [facility] XR CHEST 2V FRONTAL/LATon [facility] XR Chest PA and Lateralon IMPRESSION: Overall findings unchanged. Casino Shift Manager: PSCB Transcribe Date/Time: Sep 22 2022 2:44P Dictated by : DARON CORBIN MD This examination was interpreted and the report reviewed and electronically signed by: DARON CORBIN MD on Sep 22 2022 2:46PM [facility] DIVISION OF RADIOLOGY * * *Final Report* [...] soft tissues: Unremarkable. DIVISION OF RADIOLOGY Provider, [facility] - 09/22/2022 * * *Final Report* [...] tissues: Unremarkable. IMPRESSION IMPRESSION: Overall findings unchanged. Casino Shift Manager: ELMO Transcribe Date/Time: Sep 22 2022 2:44P Dictated by : DARON CORBIN MD This examination was interpreted and the report reviewed and electronically signed by: DARON CORBIN MD on Sep 22 2022 2:46PM EST [facility] Radiology Study observation (narrative) [facility] XR Chest PA and LateralOrder ed By: Ccf Provider on 09-22-2022 [facility] CT NECK SOFT TISSUE W IVCONo n 06-01-2022 [facility] XR CERV OTHER 4V AP/LAT/OBLo n 05-19-2022 [facility] XR Cervical spine AP and Lat eral and obliqueon 05-19-2022 IMPRESSION: Degenera tive changes as detailed in report. 1 cm well-corticated calcification within the left C4-5 foramina not significantly changed from 2017 CT. Casino Shift Manager: PSCMiri Transcribe Date/Time: May 19 2022 1:00P Dictated by : PEPPER MARTIN MD This examination was interpreted and the report reviewed and electronically signed by: PEPPER MARTIN MD on May 19 2022 1:09PM [facility] DIVISION OF RADIOLOGY * * *Final Report* [...] relevant examinations available for comparison within the [facility] Imaging Archives. RESULT: 4 views of [...] soft tissue abnormality. DIVISION OF RADIOLOGY Provider, [facility] - 05/19/2022 * * *Final Report* [...] relevant examinations available for comparison within the [facility] Imaging Archives. RESULT: 4 views of [...] foramina not significantly changed from 2017 CT. Casino Shift Manager: [facility] Transcribe Date/Time: May 19 2022 1:00P Dictated by : PEPPER MARTIN MD This examination was interpreted and the report reviewed and electronically signed by: PEPPER MARTIN MD on May 19 2022 1:09PM EST [facility] Radiology Study observation (narrative) [facility] XR Cervical spine AP and Lat eral and obliqueOrdered By: Ccf Provider on 05-19-2022 [facility] UA DIP, URINE (POC)on 2021 BILIRUBIN UA (POCT) Negative Negative [facility] CLARITY UA (POCT) Clear [facility] COLOR UA (POCT) Yellow [facility] GLUCOSE UA (POCT) Negative Negative mg/dL [facility] HEMOGLOBIN/BLOOD UA (POCT) Negative Negative [facility] KETONE UA (POCT) Negative Negative mg/dL [facility] LEUKOCYTES UA (POCT) Negative Negative [facility] N[facility]ITE [facility] (POCT) Negative Negative [facility] PH UA (POCT) 5.5 4.5 - 8.0 [facility] Protein Ql (U) Negative Negative mg/dL [facility] SPECIFIC GRAVITY UA (POCT) <=1.005 Abnormal 1.005 - 1.030 [facility] UROBILINOGEN UA (POCT) 0.2 E.U./dL Normal E.U./dL [facility] XR Knee - left 4 Viewson IMPRESSION: Negative 4 views of the left knee. Casino Shift Manager: PSCB Transcribe Date/Time: Nov 11 2021 3:12P Dictated by : DARON CORBIN MD This examination was interpreted and the report reviewed and electronically signed by: DARON CORBIN MD on Nov 11 2021 3:14PM [facility] DIVISION OF RADIOLOGY * * *Final Report* [...] soft tissue swelling. DIVISION OF RADIOLOGY Provider, [facility] 11/11/[facility]21 * * *Final Report* * [...] Negative 4 views of the left knee. Casino Shift Manager: ELMO Transcribe Date/Time: Nov 11 2021 3:12P Dictated by : DARON CORBIN MD This examination was interpreted and the report reviewed and electronically signed by: DARON CORBIN MD on Nov 11 2021 3:14PM EST [facility] Radiology Study observation (narrative) [facility] XR Knee - left 4 ViewsOrdere d By: Ccf Provider on 11-11-2021 [facility] XR Chest PA and Lateralon IMPRESSION: No evidence of active disease. Casino Shift Manager: ELMO Transcribe Date/Time: Oct 26 2021 5:06P [...] soft tissues: Unremarkable. DIVISION OF RADIOLOGY Provider, [facility] - 10/26/2021 * * *Final Report* * [...] IMPRESSION IMPRESSION: No evidence of active disease. Casino Shift Manager: [facility] Transcribe Date/Time: Oct 26 2021 5:06P Dictated by : BANDAR BLUE MD This examination was interpreted and the report reviewed and electronically signed by: BANDAR BLUE MD on Oct 26 2021 5:07PM EST [facility] Radiology Study observation (narrative) [facility] XR Chest PA and LateralOrder ed By: Ccf Provider on 10-26-2021 [facility] No Panel Informationon 07-28 IMPRESSION: No fracture or dislocation. No osseous lesions. No significant arthritic change. Subtle pes planus deformity. Subtle 1 to 2 mm radiopaque foreign body seen in soft tissues of the medial ankle. Casino Shift Manager: [facility] Transcribe Date/Time: Jul 28 2021 6:51P Dictated by : MANDA ALONSO MD This examination was interpreted and the report reviewed and electronically signed by: MANDA ALONSO MD on Jul 28 2021 6:53PM EST DIVISION OF RADIOLOGY Radiology Study observation (narrative) [facility] No Panel InformationOrdered By: Ccf Provider on 07-28-2021 [facility] XR Ankle - right AP and [...] None RESULT / DIVISION OF RADIOLOGY Provider, [facility] - 07/28/2021 * * *Final Report* [...] in soft tissues of the medial ankle. Casino Shift Manager: PSCB Transcribe Date/Time: Jul 28 2021 6:51P Dictated by : MANDA ALONSO MD This examination was interpreted and the report reviewed and electronically signed by: MANDA ALONSO MD on Jul 28 2021 6:53PM [facility] XR Foot - right AP [...] None RESULT / DIVISION OF RADIOLOGY Provider, [facility] - 07/28/2021 * * *Final Report* [...] in soft tissues of the medial ankle. Casino Shift Manager: [facility] Transcribe Date/Time: Jul 28 2021 6:51P Dictated by : MANDA ALONSO MD This examination was interpreted and the report reviewed and electronically signed by: MANDA ALONSO MD on Jul 28 2021 6:53PM EST [facility] XR Chest PA and Lateralon IMPRESSION: Stable and unremarkable exam with no acute radiographic abnormality. Casino Shift Manager: [facility] Transcribe Date/Time: Sep 23 2020 7:44P Dictated by : KARON UZNIGA MD This examination was interpreted and the [...] soft tissues: Unremarkable. DIVISION OF RADIOLOGY Provider, [facility] - 09/23/2020 * * *Final Report* * [...] unremarkable exam with no acute radiographic abnormality. Casino Shift Manager: PSCB Transcribe Date/Time: Sep 23 2020 7:44P Dictated by : KARON ZUNIGA MD This examination was interpreted and the report reviewed and electronically signed by: KARON ZUNIGA MD on Sep 23 2020 7:45PM EST [facility] Radiology Study observation (narrative) [facility] XR Chest PA and LateralOrder ed By: Ccf Provider on 09-23-2020 [facility] MRI Spine Lumbar w/ + w/o Co ntraston 10-01-2018 MRI Spine Lumbar w/ + w/o Contrast Patient Name: JAKE CHAIREZ MRI Exam Date/Time 09/30/2018 11:01:22 EST Exam MRI Spine Lumbar w/ + w/o Contrast Ordering Physician MD BEN, SUZI [place] Accession Number [id number] CPT4 Codes 99381 () Reason For Exam status post lumbar [...] and Time: 10/01/2018 7:46 Normal [facility] 08-09-2017 CN Office Visit (AGCARDWST) ----JAKE CHAIREZ ([id number]) 1975 MDate Time Provider Ijtxnzslaz40/30/17 4:00 PM INDRA DUPREE AGCARDWST During your [...] - N/ABeta james for ASHD with prior VT or prior LVEFANDlt;40 (NQF 0070) - N/ABeta james for HF with prior LVEFANDlt;40 (NQF 0083) - N/AACE-I or ARB for ASHD with DM or prior LVEFANDlt;40 (NQF 0066) - N/AStatin therapy for ASHD or FHL or DM - N/ABMI documented and plan if ANDgt;25 (NQF 0421) - lifestyle recommendation formTobacco use screening and referral (NQF 0028) - lifestyle recommendation formRecommendation for whole [...] with treatment plan.This note was generated using [employer] voice recognition system, and there may besome [...] has increased since he has been on thebronchodilators.ALLERGIES: ALLERGIESAllergen Reactions- Advair Diskus [Flut* Other: See Comments Thrush- Codeine GI Upset- Environmental [Othe* Unknown Cats, dogs, dust mites, grasses, weeds, ragweed- Flonase [Fluticason* MIGRAINE- Qvar [Beclomethason* Other: See Comments Thrush- Symbicort [Budesoni* Other: See Comments Thrush- Tetanus-Diphtheria * Swelling swelling at site and numbness in armCURRENT OUTPATIENT MEDICATIONS:ipratropium-albut ragini (COMBIVENT RESPIMAT) 20-100 mcg/actuation mist 1 puffsQID for asthmaOmeprazole (PRILOSEC) 40 mg capsule Take 1 capsule by mouth once daily.promethazine (PHENERGAN) 25 mg tablet Take 1 tablet by mouth every 6 hours asneeded.HYDROcodone-Ibuprofe n (VICOPROFEN) 7.5-200 mg per tablet Take 1-2 [...] 1 tablet by mouth daily at bedtime.rizatriptan (MAXALT-SHOE DRESSER) 10 mg disintegrating tablet Take 1 tablet [...] no significant valvular disease. He had a restingtachycardia.Electronic ally Signed:Indra Dupree MDYadkin [facility] Hospital2016 4:36 [facility] Nemesio Bell Provider: INDRA DUPREE [[id number]]Allergies As of Date: 08/09/2017 Noted Allergy ReactionADVAIR DISKUS (FLUTICASONE-SALMET* 7 14 - Other: See Comments Comments: ThrushCODEINE [...] the following areas and commit to making mcc changes. EAT A WHOLE FOOD, PLANT BASED [...] Status:Closed by INDRA DUPREE MD on 08/09/17 Normal [facility] PROGRESSon 08-09-2017 PROGRESS HNO ID: [id number] thor: Indra Pino: (none)Author Type: PhysicianType: Progress NotesFiled: 08/09/2017 4:41 PMNote Text:PERTINENT CARDIAC HISTORYChest painHLHTNFamily history premature CADADHERENCE TO GUIDELINESACE-I or ARB for HF with prior LVEF<40 (NQF 0081) - N/AASA or Plavix for ASHD (NQF 0067) - N/ABeta james for ASHD with prior VT or prior LVEF<40 (NQF 0070) - N/ABeta james for HF with prior LVEF<40 (NQF 0083) - N/AACE-I or ARB for ASHD with DM or prior LVEF<40 (NQF 0066) - N/AStatin therapy for ASHD or FHL or DM - N/ABMI documented and plan if >25 (NQF 0421) - lifestyle recommendation formTobacco use screening and referral (NQ 0028) - lifestyle recommendationformRecommendat ion for whole food, plant based diet - [...] with treatment plan.This note was generated using [employer] voice recognition system, and theremay be some [...] has increased since he has been on thebronchodilators.ALLERGIES: ALLERGIESAllergen Reactions- Advair Diskus [Flut* Other: See Comments Thrush- Codeine GI Upset- Environmental [Othe* Unknown Cats, dogs, dust mites, grasses, weeds, ragweed- Flonase [Fluticason* MIGRAINE- Qvar [Beclomethason* Other: See Comments Thrush- Symbicort [Budesoni* Other: See Comments Thrush- Tetanus-Diphtheria * Swelling swelling at site and numbness in armCURRENT OUTPATIENT MEDICATIONS:ipratropium-albut ragini (COMBIVENT RESPIMAT) 20-100 mcg/actuation mist 1puffs QID [...] Take 1 tablet by mouth daily atbedtime.rizatriptan (MAXALT-SHOE DRESSER) 10 mg disintegrating tablet Take 1 tablet [...] no significant valvular disease. He had a restingtachycardia.Electronic ally Signed:Indra Dupree MDNov2016 4:36 [facility] Avni Salcedo DO Normal [facility] CNCOon 07-18-2017 Erythrocyte distribution width Auto Ratio (RBC) Letter TextDepartment of BooxzusxgcMadve[address] [place], [place] [address]Podsw: [phone] WHOM IT MAY CONCERN:This is to confirm that [facility]aire[facility] had an [facility] by Staff on07/18/2017 and may return to work on 07-18-17.Sincerely yours,Cardiology Staff Normal [facility] Vital Signs Date Time Vital Sign Value Performing Clinician Facility 02-21-2025 14:36-0400 Body temperature 98.6 [degF] Dr. Avni Salcedo DO Work Phone: [facility] 02-21-2025 14:36-0400 Diastolic blood pressure 101 mm[Hg] Dr. Avni Salcedo DO Work Phone: [facility] 02-21-2025 14:36-0400 Heart rate 111 /min Dr. Avni Salcedo DO Work Phone: [facility] 02-21-2025 14:36-0400 Respiratory rate 12 /min Dr. Avni Salcedo DO Work Phone: [facility] 02-21-2025 14:36-0400 SaO2% (BldA) [Mass fraction] 99 % Dr. Avni Salcedo DO Work Phone: [facility] 02-21-2025 14:36-0400 Systolic blood pressure 117 mm[Hg] Dr. Avni Salcedo DO Work Phone: [facility] 02-21-2025 10:04-0400 Body height 167.[address] Avni Salcedo DO Work Phone: [facility] 02-21-2025 10:04-0400 Body mass index (BMI) [Ratio] 26.3 kg/m2 Dr. Avni Salcedo DO Work Phone: [facility] 02-21-2025 10:04-0400 Body weight [address] Avni Salcedo DO Work Phone: [facility] 01-12-2025 14:24-0400 Body mass index (BMI) [Ratio] 26.47 kg/m2 Elmer White MD Work Phone: [facility] 01-12-2025 14:24-0400 Body weight 74.39 kg Elmer White MD Work Phone: [facility] 01-12-2025 14:24-0400 Diastolic blood pressure 96 mm[Hg] Elmer White MD Work Phone: [facility] 01-12-2025 14:24-0400 Heart rate 118 /min Elmer White MD Work Phone: [facility] 01-12-2025 14:24-0400 Respiratory rate 16 /min Elmer White MD Work Phone: [facility] 01-12-2025 14:24-0400 Systolic blood pressure 128 mm[Hg] Elmer White MD Work Phone: [facility] 01-08-2025 14:01-0400 Body mass index (BMI) [Ratio] 26.69 kg/m2 Tavon Valencia APRN.HOSPICE VOLUNTEER Work Phone: [facility] 01-08-2025 14:01-0400 Body weight 75 kg Tavon Valencia APRN.HOSPICE VOLUNTEER Work Phone: [facility] 01-08-2025 14:01-0400 Diastolic blood pressure 87 mm[Hg] Tavon Valencia APRN.HOSPICE VOLUNTEER Work Phone: [facility] 01-08-2025 14:01-0400 Heart rate 108 /min Tavon Valencia APRN.HOSPICE VOLUNTEER Work Phone: [facility] 01-08-2025 14:01-0400 Systolic blood pressure 126 mm[Hg] Tavon Valencia CSR TECHNICIAN.HOSPICE VOLUNTEER Work Phone: [facility] 01-07-2025 14:51-0400 Body height 167.6 cm Yoon Click CSR TECHNICIAN.HOSPICE VOLUNTEER Work Phone: [facility] 01-07-2025 14:51-0400 Body mass index (BMI) [Ratio] 26.79 kg/m2 Yoon Click CSR TECHNICIAN.HOSPICE VOLUNTEER Work Phone: [facility] 01-07-2025 14:51-0400 Body weight 75.3 kg Yoon Click CSR TECHNICIAN.HOSPICE VOLUNTEER Work Phone: [facility] 01-07-2025 14:51-0400 Diastolic blood pressure 78 mm[Hg] Yoon Click CSR TECHNICIAN.HOSPICE VOLUNTEER Work Phone: [facility] 01-07-2025 14:51-0400 Heart rate 117 /min Yoon Click CSR TECHNICIAN.HOSPICE VOLUNTEER Work Phone: [facility] 01-07-2025 14:51-0400 Respiratory rate 15 /min Yoon Click CSR TECHNICIAN.HOSPICE VOLUNTEER Work Phone: [facility] 01-07-2025 14:51-0400 SaO2% (BldA) [Mass fraction] 97 % Yoon Click CSR TECHNICIAN.HOSPICE VOLUNTEER Work Phone: [facility] 01-07-2025 14:51-0400 Systolic blood pressure 122 mm[Hg] Yoon Click CSR TECHNICIAN.HOSPICE VOLUNTEER Work Phone: [facility] 01-07-2025 14:45-0400 Body height 167.6 cm Pulm Wstr Work Phone: [facility] 01-07-2025 14:45-0400 Body mass index (BMI) [Ratio] 26.79 kg/m2 Pulm Wstr Work Phone: [facility] 01-07-2025 14:45-0400 Body weight 75.3 kg Pulm Wstr Work Phone: [facility] 01-07-2025 14:45-0400 Heart rate 117 /min Pulm Wstr Work Phone: [facility] 01-07-2025 14:45-0400 Respiratory rate 15 /min Pulm Wstr Work Phone: [facility] 01-07-2025 14:45-0400 SaO2% (BldA) [Mass fraction] 97 % Pulm Wstr Work Phone: [facility] 10-09-2024 14:41-0500 Body mass index (BMI) [Ratio] 26.79 kg/m2 Shayla Rogers MD Work Phone: [facility] 10-09-2024 14:41-0500 Body weight 75.3 kg Shayla Rogers MD Work Phone: [facility] 10-09-2024 14:41-0500 Diastolic blood pressure 72 mm[Hg] Shayla Rogers MD Work Phone: [facility] 10-09-2024 14:41-0500 Heart rate 101 /min Shayla Rogers MD Work Phone: [facility] 10-09-2024 14:41-0500 Respiratory rate 18 /min Shayla Rogers MD Work Phone: [facility] 10-09-2024 14:41-0500 SaO2% (BldA) [Mass fraction] 98 % Shayla Rogers MD Work Phone: [facility] 10-09-2024 14:41-0500 Systolic blood pressure 118 mm[Hg] Shayla Rogers MD Work Phone: [facility] 10-06-2024 12:53-0500 Body mass index (BMI) [Ratio] 26.86 kg/m2 Elmira Farrar APRN.HOSPICE VOLUNTEER Work Phone: [facility] 10-06-2024 12:53-0500 Body weight 75.48 kg Elmira Farrar APRN.HOSPICE VOLUNTEER Work Phone: [facility] 10-06-2024 12:53-0500 Diastolic blood pressure 78 mm[Hg] Elmira Farrar APRN.HOSPICE VOLUNTEER Work Phone: [facility] 10-06-2024 12:53-0500 Heart rate 100 /min Elmira [place] CSR TECHNICIAN.HOSPICE VOLUNTEER Work Phone: [facility] 10-06-2024 12:53-0500 Respiratory rate 20 /min Elmira [place] CSR TECHNICIAN.HOSPICE VOLUNTEER Work Phone: [facility] 10-06-2024 12:53-0500 SaO2% (BldA) [Mass fraction] 98 % Elmira [place] CSR TECHNICIAN.HOSPICE VOLUNTEER Work Phone: [facility] 10-06-2024 12:53-0500 Systolic blood pressure 124 mm[Hg] Elmira [place] CSR TECHNICIAN.HOSPICE VOLUNTEER Work Phone: [facility] 06-16-2024 15:45-0400 Body mass index (BMI) [Ratio] 25.47 kg/m2 Avni Salcedo DO Work Phone: [facility] 06-16-2024 15:45-0400 Body weight 71.58 kg Avni Salcedo DO Work Phone: [facility] 06-16-2024 15:45-0400 Diastolic blood pressure 68 mm[Hg] Avni Salcedo DO Work Phone: [facility] 06-16-2024 15:45-0400 Heart rate 92 /min Avni Salcedo DO Work Phone: [facility] 06-16-2024 15:45-0400 Respiratory rate 14 /min Avni Salcedo DO Work Phone: [facility] 06-16-2024 15:45-0400 SaO2% (BldA) [Mass fraction] 98 % Avni Salcedo DO Work Phone: [facility] 06-16-2024 15:45-0400 Systolic blood pressure 128 mm[Hg] Avni Salcedo DO Work Phone: [facility] 04-16-2024 12:46-0400 Diastolic blood pressure 85 mm[Hg] John Chowdhury MD Work Phone: [facility] 04-16-2024 12:46-0400 Heart rate 89 /min John Chowdhury MD Work Phone: [facility] 04-16-2024 12:46-0400 Respiratory rate 16 /min John Chowdhury MD Work Phone: [facility] 04-16-2024 12:46-0400 SaO2% (BldA) [Mass fraction] 98 % John Chowdhury MD Work Phone: [facility] 04-16-2024 12:46-0400 Systolic blood pressure 152 mm[Hg] John Chowdhury MD Work Phone: [facility] 04-16-2024 11:26-0400 Body temperature 98.2 [degF] John Chowdhury MD Work Phone: [facility] 04-16-2024 09:20-0400 Body height 167.6 cm John Chowdhury MD Work Phone: [facility] 04-16-2024 09:20-0400 Body mass index (BMI) [Ratio] 25.26 kg/m2 John Chowdhury MD Work Phone: [facility] 04-16-2024 09:20-0400 Body weight 71 kg John Chowdhury MD Work Phone: [facility] 03-05-2024 13:11-0400 Body mass index (BMI) [Ratio] 25.28 kg/m2 Su Ham APRN.HOSPICE VOLUNTEER Work Phone: [facility] 03-05-2024 13:11-0400 Body weight 71.03 kg Su Ham CSR TECHNICIAN.HOSPICE VOLUNTEER Work Phone: [facility] 03-05-2024 13:11-0400 Diastolic blood pressure 70 mm[Hg] Su Ham APRN.HOSPICE VOLUNTEER Work Phone: [facility] 03-05-2024 13:11-0400 Heart rate 104 /min Su Ham CSR TECHNICIAN.HOSPICE VOLUNTEER Work Phone: [facility] 03-05-2024 13:11-0400 Respiratory rate 14 /min Su Ham CSR TECHNICIAN.HOSPICE VOLUNTEER Work Phone: [facility] 03-05-2024 13:11-0400 Systolic blood pressure 118 mm[Hg] Su Ham CSR TECHNICIAN.HOSPICE VOLUNTEER Work Phone: [facility] 02-08-2024 11:31-0400 Body height 167.6 cm John Chowdhury MD Work Phone: [facility] 02-08-2024 11:31-0400 Body mass index (BMI) [Ratio] 26.08 kg/m2 John Chowdhury MD Work Phone: [facility] 02-08-2024 11:31-0400 Body temperature 98.71 [degF] John Chowdhury MD Work Phone: [facility] 02-08-2024 11:31-0400 Body weight 73.3 kg John Chowdhury MD Work Phone: [facility] 02-08-2024 11:31-0400 Diastolic blood pressure 88 mm[Hg] John Chowdhury MD Work Phone: [facility] 02-08-2024 11:31-0400 Heart rate 101 /min John Chowdhury MD Work Phone: [facility] 02-08-2024 11:31-0400 SaO2% (BldA) [Mass fraction] 98 % John Chowdhury MD Work Phone: [facility] 02-08-2024 11:31-0400 Systolic blood pressure 124 mm[Hg] John Chowdhury MD Work Phone: [facility] 01-31-2024 13:33-0400 Body mass index (BMI) [Ratio] 26.7 kg/m2 Su Ham CSR TECHNICIAN.HOSPICE VOLUNTEER Work Phone: [facility] 01-31-2024 13:33-0400 Body weight 73.57 kg Su Ham CSR TECHNICIAN.HOSPICE VOLUNTEER Work Phone: [facility] 01-31-2024 13:33-0400 Diastolic blood pressure 96 mm[Hg] Su Ham CSR TECHNICIAN.HOSPICE VOLUNTEER Work Phone: [facility] 01-31-2024 13:33-0400 Heart rate 96 /min Su Ham CSR TECHNICIAN.HOSPICE VOLUNTEER Work Phone: [facility] 01-31-2024 13:33-0400 Respiratory rate 14 /min Su Ham CSR TECHNICIAN.HOSPICE VOLUNTEER Work Phone: [facility] 01-31-2024 13:33-0400 SaO2% (BldA) [Mass fraction] 98 % Su Ham CSR TECHNICIAN.HOSPICE VOLUNTEER Work Phone: [facility] 01-31-2024 13:33-0400 Systolic blood pressure 136 mm[Hg] Su Ham CSR TECHNICIAN.HOSPICE VOLUNTEER Work Phone: [facility] 01-08-2023 14:56-0400 Body temperature 98.01 [degF] Avni Salcedo DO Work Phone: [facility] 01-08-2023 14:56-0400 Body weight 74.84 kg Avni Salcedo DO Work Phone: [facility] 01-08-2023 14:56-0400 Diastolic blood pressure 80 mm[Hg] Avni Salcedo DO Work Phone: [facility] 01-08-2023 14:56-0400 Heart rate 80 /min Avni Salcedo DO Work Phone: [facility] 01-08-2023 14:56-0400 Respiratory rate 16 /min Avni Salcedo DO Work Phone: [facility] 01-08-2023 14:56-0400 Systolic blood pressure 112 mm[Hg] Avni Salcedo DO Work Phone: [facility] 11-16-2022 19:40-0500 Body height 167.[address] Avni Salcedo Work Phone: [facility] 11-16-2022 19:40-0500 Body mass index (BMI) [Ratio] 27.4 kg/m2 Dr. Avni Salcedo Work Phone: 7(071)414-579222 [place] [address] 11-16-2022 19:40-0500 Body temperature 97 [degF] Dr. Avni Salcedo Work Phone: 0(546)800-097922 [place] [address] 11-16-2022 19:40-0500 Body weight 77.[address] Avni Salcedo Work Phone: 6(649)220-473422 [place] [address] 11-16-2022 19:40-0500 Diastolic blood pressure 97 mm[Hg] Dr. Avni Salcedo Work Phone: 8(296)124-717822 [place] [address] 11-16-2022 19:40-0500 Heart rate 110 /min Dr. Avni Salcedo Work Phone: 1(685)640-878722 [place] [address] 11-16-2022 19:40-0500 Respiratory rate 16 /min Dr. Avni Salcedo Work Phone: 0(059)323-222522 [place] [address] 11-16-2022 19:40-0500 SaO2% (BldA) [Mass fraction] 100 % Dr. Avni Salcedo Work Phone: 0(503)330-490522 [place] [address] 11-16-2022 19:40-0500 Systolic blood pressure 169 mm[Hg] Dr. Avni Salcedo Work Phone: 6(575)067-582122 [place] [address] 11-02-2022 14:05-0500 Body mass index (BMI) [Ratio] 27.4 kg/m2 Dr. Avni Salcedo Work Phone: 8(751)286-034722 [place] [address] 11-02-2022 14:05-0500 Body weight 77.[address] Avni Salcedo Work Phone: 4(642)818-616922 [place] [address] 11-01-2022 14:18-0500 Body weight 77.02 kg Su Ham APRN.HOSPICE VOLUNTEER Work Phone: 7(631)278-482574 [place] [address] 11-01-2022 14:18-0500 Diastolic blood pressure 70 mm[Hg] Su Ham APRN.HOSPICE VOLUNTEER Work Phone: 8(376)466-503574 [place] [address] 11-01-2022 14:18-0500 Heart rate 100 /min Su Ham CSR TECHNICIAN.HOSPICE VOLUNTEER Work Phone: [facility] 11-01-2022 14:18-0500 Respiratory rate 14 /min Su Ham CSR TECHNICIAN.HOSPICE VOLUNTEER Work Phone: [facility] 11-01-2022 14:18-0500 SaO2% (BldA) [Mass fraction] 97 % Su Ham CSR TECHNICIAN.HOSPICE VOLUNTEER Work Phone: [facility] 11-01-2022 14:18-0500 Systolic blood pressure 128 mm[Hg] Su Ham CSR TECHNICIAN.HOSPICE VOLUNTEER Work Phone: [facility] 10-13-2022 12:50-0500 Body weight 75.3 kg Pulm Wstr Work Phone: [facility] 10-13-2022 12:50-0500 Heart rate 109 /min Pulm Wstr Work Phone: [facility] 10-13-2022 12:50-0500 Respiratory rate 14 /min Pulm Wstr Work Phone: [facility] 10-13-2022 12:50-0500 SaO2% (BldA) [Mass fraction] 98 % Pulm Wstr Work Phone: [facility] 10-11-2022 16:52-0500 Body temperature 97 [degF] Avni Salcedo DO Work Phone: [facility] 10-11-2022 16:52-0500 Body weight 77.56 kg Avni Salcedo DO Work Phone: [facility] 10-11-2022 16:52-0500 Diastolic blood pressure 82 mm[Hg] Avni Salcedo DO Work Phone: [facility] 10-11-2022 16:52-0500 Heart rate 64 /min Avni Salcedo DO Work Phone: [facility] 10-11-2022 16:52-0500 Respiratory rate 16 /min Avni Salcedo DO Work Phone: [facility] 10-11-2022 16:52-0500 Systolic blood pressure 134 mm[Hg] Avni Salcedo DO Work Phone: [facility] 09-22-2022 13:07-0500 Body temperature 98.29 [degF] Su Ham CSR TECHNICIAN.HOSPICE VOLUNTEER Work Phone: [facility] 09-22-2022 13:07-0500 Body weight 75.39 kg Su Ham CSR TECHNICIAN.HOSPICE VOLUNTEER Work Phone: [facility] 09-22-2022 13:07-0500 Diastolic blood pressure 80 mm[Hg] Su Ham CSR TECHNICIAN.HOSPICE VOLUNTEER Work Phone: [facility] 09-22-2022 13:07-0500 Heart rate 104 /min Su Ham CSR TECHNICIAN.HOSPICE VOLUNTEER Work Phone: [facility] 09-22-2022 13:07-0500 Respiratory rate 16 /min Su Ham CSR TECHNICIAN.HOSPICE VOLUNTEER Work Phone: [facility] 09-22-2022 13:07-0500 SaO2% (BldA) [Mass fraction] 98 % Su Ham CSR TECHNICIAN.HOSPICE VOLUNTEER Work Phone: [facility] 09-22-2022 13:07-0500 Systolic blood pressure 130 mm[Hg] Su Ham CSR TECHNICIAN.HOSPICE VOLUNTEER Work Phone: [facility] 09-18-2022 11:10-0500 Body temperature 97.9 [degF] Elmer Pendlebury CSR TECHNICIAN.HOSPICE VOLUNTEER Work Phone: [facility] 09-18-2022 11:10-0500 Body weight 74.39 kg Elmer Pendlebury CSR TECHNICIAN.HOSPICE VOLUNTEER Work Phone: [facility] 09-18-2022 11:10-0500 Diastolic blood pressure 72 mm[Hg] Elmer Pendlebury CSR TECHNICIAN.HOSPICE VOLUNTEER Work Phone: [facility] 09-18-2022 11:10-0500 Heart rate 118 /min Elmer Pendlebury CSR TECHNICIAN.HOSPICE VOLUNTEER Work Phone: [facility] 09-18-2022 11:10-0500 Respiratory rate 18 /min Elmer Leivaamalia CSR TECHNICIAN.HOSPICE VOLUNTEER Work Phone: [facility] 09-18-2022 11:10-0500 SaO2% (BldA) [Mass fraction] 97 % Elmer Careyjeff CSR TECHNICIAN.HOSPICE VOLUNTEER Work Phone: [facility] 09-18-2022 11:10-0500 Systolic blood pressure 122 mm[Hg] Elmer Michael CSR TECHNICIAN.HOSPICE VOLUNTEER Work Phone: [facility] 07-10-2022 14:59-0400 Body temperature 98.2 [degF] Avni Salcedo DO Work Phone: [facility] 07-10-2022 14:59-0400 Body weight 75.3 kg Avni Salcedo DO Work Phone: [facility] 07-10-2022 14:59-0400 Diastolic blood pressure 80 mm[Hg] Avni Salcedo DO Work Phone: [facility] 07-10-2022 14:59-0400 Heart rate 104 /min Avni Salcedo DO Work Phone: [facility] 07-10-2022 14:59-0400 Respiratory rate 12 /min Avni Salcedo DO Work Phone: [facility] 07-10-2022 14:59-0400 Systolic blood pressure 120 mm[Hg] Avni Salcedo DO Work Phone: [facility] 05-30-2022 13:00-0400 Diastolic blood pressure 86 mm[Hg] Yash Golias PT Work Phone: [facility] 05-30-2022 13:00-0400 Systolic blood pressure 126 mm[Hg] Yash Golias PT Work Phone: [facility] 05-19-2022 10:56-0400 Body temperature 96.49 [degF] Avni Salcedo DO Work Phone: [facility] 05-19-2022 10:56-0400 Body weight 74.84 kg Avni Salcedo DO Work Phone: [facility] 05-19-2022 10:56-0400 Diastolic blood pressure 82 mm[Hg] Avni Salcedo DO Work Phone: [facility] 05-19-2022 10:56-0400 Heart rate 96 /min Avni Salcedo DO Work Phone: [facility] 05-19-2022 10:56-0400 Respiratory rate 16 /min Avni Salcedo DO Work Phone: [facility] 05-19-2022 10:56-0400 Systolic blood pressure 138 mm[Hg] Avni Salcedo DO Work Phone: [facility] 04-18-2022 16:23-0400 Body temperature 99.9 [degF] Tammy Shraddha CSR TECHNICIAN.HOSPICE VOLUNTEER Work Phone: [facility] 04-18-2022 16:23-0400 Body weight 73.48 kg Tammy Shraddha CSR TECHNICIAN.HOSPICE VOLUNTEER Work Phone: [facility] 04-18-2022 16:23-0400 Diastolic blood pressure 74 mm[Hg] Tammy Shraddha CSR TECHNICIAN.HOSPICE VOLUNTEER Work Phone: [facility] 04-18-2022 16:23-0400 Heart rate 119 /min Tammy Shraddha CSR TECHNICIAN.HOSPICE VOLUNTEER Work Phone: [facility] 04-18-2022 16:23-0400 Respiratory rate 18 /min Tammy Shraddha CSR TECHNICIAN.HOSPICE VOLUNTEER Work Phone: [facility] 04-18-2022 16:23-0400 SaO2% (BldA) [Mass fraction] 97 % Tammy Shraddha CSR TECHNICIAN.HOSPICE VOLUNTEER Work Phone: [facility] 04-18-2022 16:23-0400 Systolic blood pressure 130 mm[Hg] Tammy Shraddha CSR TECHNICIAN.HOSPICE VOLUNTEER Work Phone: [facility] 12-12-2021 13:01-0400 Body height 166 cm ERIK Ludwig PA-C Work Phone: [facility] 12-12-2021 13:01-0400 Body weight 74.84 kg NA Ludwig PA-C Work Phone: [facility] 12-12-2021 13:01-0400 Diastolic blood pressure 74 mm[Hg] NA Ludwig PA-C Work Phone: [facility] 12-12-2021 13:01-0400 Heart rate 107 /min NA Ludwig PA-C Work Phone: [facility] 12-12-2021 13:01-0400 Respiratory rate 16 /min NA Ludwig PA-C Work Phone: [facility] 12-12-2021 13:01-0400 SaO2% (BldA) [Mass fraction] 97 % NA Ludwig PA-C Work Phone: [facility] 12-12-2021 13:01-0400 Systolic blood pressure 122 mm[Hg] NA Ludwig PA-C Work Phone: [facility] Encounters Encounter Date Encounter Type Care Provider Facility Start: 02-21-2025 Evaluation and manag ement [facility] Start: 02-21-2025 End: 02-21-2025 Patient encounter procedure Adrianna MORAN Work Phone: [facility] Comment on above: Procedure not mariela d out (Primary Dx) Start: 02-04-2025 End: 02-05-2025 Telephone encounter Elmer White MD Work Phone: [facility] Start: 01-30-2025 End: 01-30-2025 ambulatory YOON MAGANA Facility:[id number] Start: 01-13-2025 End: 01-14-2025 Follow-up encounter Elmer White MD Work Phone: [facility] Comment on above: Results Start: 01-12-2025 End: 01-12-2025 Subsequent hospital visit by physician Efrem [facility] Work Phone: Radiology Comment on above: Rib pain on left dustin e [R07.81] Start: 01-12-2025 End: 01-12-2025 Office outpatient visit 25 minutes Elmer White MD Work Phone: [facility] Comment on above: Rib pain on left dustin e (Primary Dx); Left sided abdominal pain Start: 01-12-2025 End: 01-12-2025 ambulatory TAVONGELACIO VALENCIA Facility:[facility] Start: 01-12-2025 End: 01-13-2025 Follow-up encounter Elmer White MD Work Phone: [facility] Comment on above: Results Start: 01-08-2025 End: 01-08-2025 Patient encounter procedure Tavon Valencia CSR TECHNICIAN.HOSPICE VOLUNTEER [facility] [facility] [place] Comment on above: IFG (impaired fastin g glucose) (Primary Dx); Hyperlipidemia, mixed; Chronic allergic rhinitis; Displacement of lumbar intervertebral disc without myelopathy; Essential hypertension, benign; Migraine without aura and without status migrainosus, not intractable; Sarcoidosis of lung (HCC); Mixed hyperlipidemia; Asthma, moderate persistent, well-controlled (HCC) Start: 01-08-2025 End: 01-08-2025 ambulatory TAVON VALENCIA Facility:[facility] Start: 01-07-2025 End: 01-07-2025 Office outpatient visit 40 minutes Yoon Magana APRN.HOSPICE VOLUNTEER Work Phone: Pulmonary Medicine Comment on above: Asthma, moderate per sistent, poorly-controlled (HCC) (Primary Dx); Acute non-recurrent maxillary sinusitis; Chronic allergic rhinitis; Daytime sleepiness; Former cigarette smoker Start: 01-07-2025 End: 01-07-2025 Patient encounter procedure Pulm Lab [facility] Work Phone: PULM LAB [facility] Start: 01-07-2025 End: 01-07-2025 ambulatory Pulm Lab [facility] Work Phone: PULM LAB [facility] Comment on above: Spirometry Start: 01-02-2025 End: 01-02-2025 ambulatory Avni Salcedo Facility:[facility] Start: 01-02-2025 End: 01-02-2025 Discharged [facility] [place] [facility] Work Phone: Start: 10-15-2024 End: 10-15-2024 Refill Avni Jesuson DO Work Phone: [facility] [place] Comment on above: Refill Request Start: 10-09-2024 End: 10-09-2024 ambulatory SHAYLA ROGERS Facility:[facility] Start: 10-09-2024 End: 10-09-2024 Patient encounter procedure Shayla Rogers MD Work Phone: Pulmonary Medicine Comment on above: Asthma, moderate per sistent, poorly-controlled (Primary Dx); H/O sarcoidosis; Former cigarette smoker Start: 10-06-2024 End: 10-06-2024 Refill Avni Jesuson DO Work Phone: [facility] [place] Comment on above: Refill Request Encounter for screen ing for lung cancer (Primary Dx); Tobacco abuse Insurance Authorizat ion Start: 09-01-2024 End: 09-01-2024 Telephone encounter Avni Jesuson DO Work Phone: [facility] [place] Comment on above: Results Start: 08-18-2024 End: 08-18-2024 Telephone encounter Avni Ahnrison DO Work Phone: [facility] [place] Comment on above: Insurance Authorizat ion (Hydrocortisone suppository ) Start: 08-15-2024 End: 08-15-2024 Refill Avni Ahnrison DO Work Phone: [facility] [place] Comment on above: Patient Question; Re fill Request Start: 08-05-2024 End: 08-08-2024 ambulatory Avni Ahnrison DO Work Phone: [facility] [place] Comment on above: Blood work Start: 08-05-2024 End: 08-05-2024 Refill Su Ham CSR TECHNICIAN.HOSPICE VOLUNTEER Work Phone: [facility] [place] Comment on above: Refill Request Start: 07-25-2024 End: 07-28-2024 Refill Su Ham APRN.HOSPICE VOLUNTEER Work Phone: [facility] [place] Comment on above: Refill Request Start: 07-02-2024 End: 07-03-2024 Telephone encounter Avni Ahnrison DO Work Phone: [facility] [place] Comment on above: Results Start: 06-26-2024 End: 06-26-2024 ambulatory AVNI L SALCEDO Facility:[facility] Start: 06-26-2024 End: 06-26-2024 Telephone encounter Avni Ahnrison DO Work Phone: [facility] [place] Start: 06-24-2024 End: 06-24-2024 Telephone encounter Avni Ahnrison DO Work Phone: [facility] [place] Comment on above: Results Start: 06-23-2024 End: 06-23-2024 Subsequent hospital visit by physician Ct [facility] (I-Stat) Work Phone: Cat Scan Comment on above: Pulmonary nodule [R9 1.1] Start: 06-23-2024 End: 06-26-2024 ambulatory Portia Andujar PA-C Work Phone: Pulmonary Medicine Start: 06-18-2024 End: 06-18-2024 ambulatory AVNI L SALCEDO Facility:[facility] Start: 06-16-2024 End: 06-16-2024 ambulatory AVNI L SALCEDO Facility:[facility] Start: 06-16-2024 End: 06-16-2024 Subsequent hospital visit by physician Xr [facility] [place] Work Phone: Radiology Comment on above: Pain of left thumb [ M79.645] Start: 06-16-2024 End: 06-16-2024 Patient encounter procedure Avni L Salcedo DO Work Phone: [facility] [place] Comment on above: Pain of left thumb ( Primary Dx); Foot pain, left; Hyperlipidemia, mixed; IFG (impaired fasting glucose); Vitamin D deficiency; Fatigue, unspecified type; Pulmonary nodule; LVH (left ventricular hypertrophy); 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; Vitamin B12 deficiency Start: 06-16-2024 End: 06-16-2024 ambulatory AVNI L SALCEDO Facility:[facility] Start: 06-06-2024 End: 06-09-2024 Refill Avni L Salcedo DO Work Phone: [facility] [place] Comment on above: Refill Request Start: 04-28-2024 End: 04-28-2024 Refill Su Ham CSR TECHNICIAN.HOSPICE VOLUNTEER Work Phone: [facility] [place] Comment on above: Refill Request Start: 04-25-2024 End: 04-25-2024 ambulatory AVNI L SALCEDO Facility:[facility] Start: 04-25-2024 End: 04-25-2024 Patient encounter procedure Joy Shearer CSR TECHNICIAN.HOSPICE VOLUNTEER Work Phone: General Surgery Comment on above: Gastroesophageal ref lux disease with esophagitis without hemorrhage (Primary Dx); Diarrhea, unspecified type Start: 04-16-2024 ambulatory AVNI L SALCEDO Facil [facility] Start: 04-16-2024 End: 04-16-2024 Subsequent hospital visit by physician John Chowdhury MD Work Phone: [facility] Endoscopy Comment on above: Screening for colon cancer [Z12.11] Start: 03-05-2024 End: 03-05-2024 ambulatory AVNI L SALCEDO Facility:[facility] Start: 03-05-2024 End: 03-05-2024 Patient encounter procedure Su Ham CSR TECHNICIAN.HOSPICE VOLUNTEER Work Phone: [facility] [place] Comment on above: Essential hypertensi on, benign (Primary Dx); Anxiety with depression Start: 02-20-2024 Refill Su Ham CSR TECHNICIAN.HOSPICE VOLUNTEER Work Phone: [facility] [place] Comment on above: Refill Request Start: 02-08-2024 End: 02-08-2024 Patient encounter procedure John Chowdhury MD Work Phone: General Surgery Comment on above: Gastroesophageal ref lux disease, unspecified whether esophagitis present (Primary Dx); Screening for colon cancer; Hyperlipidemia, mixed; Irritable bowel syndrome with constipation; Diarrhea, unspecified type; Personal history of colonic polyps Start: 02-06-2024 Telephone encounter Su lopez CSR TECHNICIAN.HOSPICE VOLUNTEER Work Phone: [facility] [place] Comment on above: Results Start: 01-31-2024 End: 01-31-2024 Patient encounter procedure Su Ham APRN.HOSPICE VOLUNTEER Work Phone: [facility] [place] Comment on above: BENIGN HYPERTENSION (Primary Dx); Hyperlipidemia, mixed; Migraine without aura and without status migrainosus, not intractable; Mild persistent asthma without complication; Chronic allergic rhinitis; New onset type 2 diabetes mellitus (HCC); Screening for colon cancer; Screening for prostate cancer Start: 11-22-2023 Refill Su Ham APRN.HOSPICE VOLUNTEER Work Phone: [facility] Comment on above: Refill Request Start: 08-08-2023 Refill Avni lopez DO Work Phone: [facility] [place] Comment on above: Refill Request Start: 07-30-2023 Refill Avni lopez DO Work Phone: [facility] [place] Comment on above: Refill Request Start: 05-04-2023 Refill Avni lpoez DO Work Phone: [facility] [place] Comment on above: Refill Request Start: 04-06-2023 Refill Tavon douglass APRN.HOSPICE VOLUNTEER Work Phone: [facility] [place] Comment on above: Refill Request Start: 01-24-2023 End: 01-24-2023 Subsequent hospital visit by physician Mri Radio [facility] (I-Stat/1.5t) Work Phone: Radiology Start: 01-19-2023 Refill Su Ham APRN.HOSPICE VOLUNTEER Work Phone: [facility] [place] Comment on above: Refill Request Start: 01-08-2023 End: 01-08-2023 Patient encounter procedure Avni Salcedo DO Work Phone: [facility] [place] Comment on above: Dyslipidemia (Primar y Dx); New onset type 2 diabetes mellitus (HCC); BENIGN HYPERTENSION; Gastroesophageal reflux disease without esophagitis; Chronic allergic rhinitis; Hyperlipidemia, mixed; Displacement of lumbar intervertebral disc without myelopathy; Cervical disc disorder at C4-C5 level with radiculopathy; Chronic neck pain Start: 11-16-2022 End: 11-16-2022 Emergency department patient visit Dr. Avni Salcedo Work Phone: [facility]-Emergency Department Start: 11-08-2022 ambulatory Su Ham CSR TECHNICIAN.HOSPICE VOLUNTEER Work Phone: [facility] Start: 11-08-2022 Follow-up encounter Su lopez CSR TECHNICIAN.HOSPICE VOLUNTEER Work Phone: [facility] [place] Comment on above: Follow up Start: 11-06-2022 Telephone encounter Su lopez CSR TECHNICIAN.HOSPICE VOLUNTEER Work Phone: [facility] [place] Comment on above: Results Start: 11-02-2022 End: 11-02-[address] Avni Salcedo Work Phone: [facility] Start: 11-01-2022 End: 11-01-2022 Subsequent hospital visit by physician Xr [facility] [place] Work Phone: Radiology Comment on above: Acute pain of right shoulder [M25.511] Start: 11-01-2022 End: 11-01-2022 Patient encounter procedure Su Ham CSR TECHNICIAN.HOSPICE VOLUNTEER Work Phone: [facility] [place] Comment on above: New onset type 2 margareth betes mellitus (HCC) (Primary Dx); Hyperlipidemia, mixed; Acute pain of right shoulder Start: 11-01-2022 End: 11-01-2022 Nursing evaluation of patient and report Claude Amanda RN Work Phone: Endocrinology Comment on above: IFG (impaired fastin g glucose) (Primary Dx) Start: 10-26-2022 Telephone encounter Avni smith DO Work Phone: [facility] [place] Comment on above: Appointment Start: 10-18-2022 End: 10-18-2022 Subsequent hospital visit by physician Mri Radio [facility] (I-Stat/1.5t) Work Phone: Radiology Start: 10-17-2022 ambulatory Avni Harrington Skyla lopez DO Work Phone: [facility] [place] Comment on above: echo Start: 10-17-2022 E-mail encounter fro m caregiver Avni Salcedo DO Work Phone: [facility] Start: 10-16-2022 Telephone encounter Su lopez CSR TECHNICIAN.HOSPICE VOLUNTEER Work Phone: [facility] [place] Comment on above: Results Refill Request Start: 10-13-2022 End: 10-13-2022 ambulatory Pulm Lab [facility] Work Phone: PULM LAB [facility] Comment on above: Spirometry Start: 10-13-2022 End: 10-13-2022 Patient encounter procedure Pulm Lab [facility] Work Phone: [facility] [place] Start: 10-11-2022 End: 10-11-2022 Patient encounter procedure Avni Salcedo DO Work Phone: [facility] [place] Comment on above: Dyslipidemia (Primar y Dx); Vitamin D deficiency; IFG (impaired fasting glucose); LVH (left ventricular hypertrophy); Asthma, moderate persistent, well-controlled; Exposure to radon, initial encounter; Wheezing Start: 10-02-2022 Telephone encounter Su lopez CSR TECHNICIAN.HOSPICE VOLUNTEER Work Phone: [facility] [place] Comment on above: Results Start: 09-29-2022 End: 09-29-2022 Subsequent hospital visit by physician Ct [facility] (I-Stat) Work Phone: Cat Scan Comment on above: Wheezing [R06.2] Start: 09-22-2022 End: 09-22-2022 Patient encounter procedure Su Ham CSR TECHNICIAN.HOSPICE VOLUNTEER Work Phone: [facility] [place] Comment on above: Bronchitis (Primary Dx); Asthma, moderate persistent, well-controlled; Chronic allergic rhinitis; Wheezing; Exposure to radon, initial encounter Start: 09-22-2022 Telephone encounter Su lopez CSR TECHNICIAN.HOSPICE VOLUNTEER Work Phone: [facility] [place] Comment on above: Results Start: 09-22-2022 End: 09-22-2022 Subsequent hospital visit by physician Xr [facility] [place] Work Phone: Radiology Comment on above: Asthma, moderate per sistent, well-controlled [J45.40] Start: 09-18-2022 End: 09-18-2022 Office outpatient visit 25 minutes Emler Rodriguez APRN.HOSPICE VOLUNTEER Work Phone: [place] [facility] Comment on above: Sinobronchitis (Prim rafiq Dx) Start: 08-08-2022 Refill Su barbosa CSR TECHNICIAN.HOSPICE VOLUNTEER Work Phone: [facility] [place] Comment on above: Refill Request Start: 08-04-2022 ambulatory No Pcp Rodrigo Rivas [facility] Start: 07-20-2022 Refill Avni lopez DO Work Phone: [facility] [place] Comment on above: Refill Request Start: 07-10-2022 End: 07-10-2022 Patient encounter procedure Avni Salcedo DO Work Phone: [facility] [place] Comment on above: Chronic neck pain (P rimary Dx); Cervical radiculopathy; Cervical disc disorder at C4-C5 level with radiculopathy; Attention deficit Start: 06-29-2022 End: 06-29-2022 ambulatory Yash Golias PT Work Phone: [facility] Physical Therapy Comment on above: Neck pain (Primary D x) Start: 06-26-2022 End: 06-26-2022 ambulatory Socorro Kashuba CLINIC NURSE Work Phone: [facility] Physical Therapy Comment on above: Neck pain (Primary D x) Start: 06-19-2022 End: 06-19-2022 ambulatory Yash Golias PT Work Phone: [facility] Physical Therapy Comment on above: Neck pain (Primary D x) Start: 06-12-2022 End: 06-12-2022 ambulatory Socorro Kashuba CLINIC NURSE Work Phone: [facility] Physical Therapy Comment on above: Neck pain (Primary D x) Start: 06-07-2022 End: 06-07-2022 ambulatory Socorro Kashuba CLINIC NURSE [facility] Comment on above: Neck pain (Primary D x) Start: 06-07-2022 Telephone encounter Josue Tabitha Shine DO Work Phone: Radiology Comment on above: image request Start: 06-02-2022 Telephone encounter Avni smith DO Work Phone: [facility] [place] Comment on above: Results Start: 06-01-2022 End: 06-01-2022 Subsequent hospital visit by physician Ct [facility] (I-Stat) Work Phone: Cat Scan Comment on above: Localized swelling, mass and lump, neck [R22.1] Start: 05-30-2022 End: 05-30-2022 ambulatory Yash Golias PT Work Phone: [facility] Physical Therapy Comment on above: Neck pain without in jury; Neck pain Start: 05-20-2022 Telephone encounter Avni smith DO Work Phone: [facility] [place] Comment on above: Results Start: 05-19-2022 End: 05-19-2022 Subsequent hospital visit by physician Xr [facility] [place] Work Phone: Radiology Comment on above: Neck pain without in jury [M54.2] Start: 05-19-2022 End: 05-19-2022 Patient encounter procedure Avni Salcedo DO Work Phone: [facility] [place] Comment on above: Localized swelling, mass and lump, neck (Primary Dx); Neck pain without injury; Localized enlarged lymph nodes Start: 04-20-2022 Refill uS barbosa CSR TECHNICIAN.HOSPICE VOLUNTEER Work Phone: [facility] [place] Comment on above: Refill Request Start: 04-18-2022 End: 04-18-2022 Office outpatient visit 25 minutes Tammy Llanes CSR TECHNICIAN.HOSPICE VOLUNTEER Work Phone: [facility] Comment on above: Sinobronchitis (Prim rafiq Dx); Mild intermittent asthma with acute exacerbation; Wheezing Start: 04-18-2022 Refill Avni lopez DO Work Phone: [facility] [place] Comment on above: Refill Request Start: 03-27-2022 Refill Marivel Luong PA-C Work Phone: Pulmonary Medicine Comment on above: Refill Request Start: 03-15-2022 ambulatory Marivel Luong PA-C Work Phone: Pulmonary Medicine Comment on above: I'm having a flare u p. Start: 02-23-2022 Refill Avni Crum son DO Work Phone: [facility] [place] Comment on above: Refill Request Start: 01-12-2022 Refill Kim Podlogar CSR TECHNICIAN.HOSPICE VOLUNTEER Work Phone: [facility] [place] Comment on above: Refill Request Omeprazole Dr 40mg Start: 12-26-2021 ambulatory Marivel Luong PA-C Work Phone: Pulmonary Medicine Comment on above: Asthma problem.. Start: 12-12-2021 End: 12-12-2021 Patient encounter procedure Lita Rosaleson PA-C Work Phone: [facility] [place] Comment on above: Encounter for examin ation required by Department of Transportation (DOT) (Primary Dx) Start: 11-11-2021 End: 11-11-2021 Subsequent hospital visit by physician Xr [facility] Work Phone: Radiology Comment on above: Acute pain of left k nee [M25.562] Start: 10-26-2021 End: 10-26-2021 Subsequent hospital visit by physician Xr [facility] Work Phone: Radiology Comment on above: Cough [R05.9] Start: 07-28-2021 End: 07-28-2021 Subsequent hospital visit by physician Xr [facility] Work Phone: Radiology Comment on above: Foot pain, right [M7 9.671] Start: 09-23-2020 End: 09-23-2020 Subsequent hospital visit by physician Xr [facility] Work Phone: Radiology Comment on above: Suspected COVID-19 v irus infection [Z20.822] Start: 09-30-2018 Patient encounter procedure Suzi Granados [facility] Start: 02-06-2018 Ambulatory NIDRA DUPREE Facility [facility] Start: 08-09-2017 Ambulatory INDRA DUPREE [facility] Procedures Date Procedure Procedure Detail Performing Clinician Start: 02-21-2025 Plain chest X-ray Dr. Avni Salcedo DO Work Phone: Start: 02-21-[address] Dionna Salcedo DO Work Phone: Start: 01-12-2025 Radex ribs uni w/posteroant ch [...] shoulder complete minimum 2 views Su Ham CSR TECHNICIAN.HOSPICE VOLUNTEER Work Phone: Start: 10-18-2022 Mri spinal canal cervical w/o contrast matrl [facility] Provider Start: 10-13-2022 Brncdilat rspse spmtry pre&post-brncdilat admn Sujose Ham CSR TECHNICIAN.HOSPICE VOLUNTEER Work Phone: Start: 09-29-2022 Ct thorax w/o contrast material Su D devison CSR TECHNICIAN.HOSPICE VOLUNTEER Work Phone: Start: 09-22-2022 Radiologic exam chest 2 views Su Chip lopez CSR TECHNICIAN.HOSPICE VOLUNTEER Work Phone: Start: 06-01-2022 Ct soft tissue neck w/contrast material Avni Salcedo DO Work Phone: Start: 05-19-2022 Radex spine cervical 4 or 5 views Avni Ahnrison DO Work Phone: Start: 12-12-2021 Urnls dip stick/tablet rgnt auto w/o microscopy M Huber Ludwig PA-C Work Phone: Start: 11-11-2021 Radiologic exam knee complete 4/more views Sumulu Ham CSR TECHNICIAN.HOSPICE VOLUNTEER Work Phone: Start: 10-26-2021 Radiologic exam chest 2 views Kamille barillas CSR TECHNICIAN.HOSPICE VOLUNTEER Work Phone: Start: 07-28-2021 Radex foot complete minimum 3 views Susi Menjivar PA-C Work Phone: Start: 09-23-2020 Radiologic exam chest 2 views Donal elliott CSR TECHNICIAN.HOSPICE VOLUNTEER Work Phone: Start: 12-27-2016 Colonoscopy NA Oziel SANTILLAN Work Phone: Plan of Treatment Date Care Activity Detail Author Start: 05-10-2031 Urine microalbumin profile [facility] Start: 04-16-2029 Screening for malignant neoplasm of colon [facility] Start: 10-13-2027 LIPID SCREEN LIPID SCREEN [facility] Start: 06-01-2026 LIPID SCREEN LIPID SCREEN [facility] Start: 01-12-2026 Annual PCP Team Chronic Disease Visit Annual PCP Team Chronic Disease Visit [facility] Start: 01-12-2026 Hepatitis B surface antibody level LDL Cholesterol [facility] Start: 01-08-2026 Annual PCP Team Chronic Disease Visit Annual PCP Team Chronic Disease Visit [facility] Start: 01-07-2026 BP Controlled (<130/80) BP Controlled (<130/80) [facility] Start: 10-13-2025 DIABETES SCREEN DIABETES SCREEN [facility] Start: 10-09-2025 BP Controlled (<130/80) BP Controlled (<130/80) [facility] Start: 10-06-2025 BP Controlled (<130/80) BP Controlled (<130/80) [facility] Start: 07-15-2025 End: 07-15-2025 Patient encounter procedure 07/15/2025 2:20 PM EST Office Visit [facility] [address] [place], [place] [id number] Avni Salcedo DO [address] [place], [place] [id number] physical [facility] [place] Comment on above: physical Start: 07-15-2025 Hemoglobin A1c measurement HbA1C [facility] Start: 07-06-2025 End: 07-06-2025 Patient encounter procedure Cat Scan Comment on above: Tobacco abuse [Z72.0]; Encounter for scr eening for lung cancer [Z12.2] 9 month LDCT 9 month LCS Start: 06-23-2025 Screening for malignant neoplasm of lung Lung Cancer Screening [facility] Start: 06-18-2025 Hepatitis B surface antibody level LDL Cholesterol [facility] Start: 06-16-2025 Annual PCP Team Chronic Disease Visit Annual PCP Team Chronic Disease Visit [facility] Start: 06-16-2025 BP Controlled (<130/80) BP Controlled (<130/80) [facility] Start: 06-16-2025 Covid-19 Vaccine () Covid-19 Vaccine () [facility] Comment on above: Postponed from 05/11/2024 (Declined at t his time) Start: 06-16-2025 Diabetic foot examination Diabetic Foot Exam [facility] Start: 05-19-2025 DIABETES SCREEN DIABETES SCREEN [facility] Start: 05-11-2025 Influenza vaccination Influenza Vaccine (Season Ended) [facility] Start: 04-08-2025 End: 04-08-2025 Patient encounter procedure Pulmonary Medicine Comment on above: 3 month follow up Start: 03-09-2025 Influenza vaccination Influenza Vaccine (#1) [facility] Comment on above: Postponed from 05/11/2024 (Declined at t his time) Start: 03-05-2025 Annual PCP Team Chronic Disease Visit Annual PCP Team Chronic Disease Visit [facility] Start: 03-05-2025 BP Controlled (<130/80) BP Controlled (<130/80) [facility] Start: 02-21-2025 Verification routine [facility] Start: 02-21-2025 Admission procedure [facility] Start: 02-21-2025 Hospital admission, emergency, from emergency room, medical nature [facility] Start: 02-21-2025 End: 02-21-2025 [facility] Start: 02-09-2025 End: 02-09-2025 Patient encounter procedure 02/09/2025 2:00 PM EDT Appointment Radiology [address] [place], [place] [address] Splenomegaly, not elsewhere classified [R16.1] Radiology Comment on above: Splenomegaly, not elsewhere classified [ R16.1] Start: 01-31-2025 Hepatitis B surface antibody level LDL Cholesterol [facility] Start: 01-30-2025 End: 01-30-2025 Patient encounter procedure 01/30/2025 8:30 PM EDT Office Visit [facility] [address] [place] [address] Daytime sleepiness [R40.0] [facility] Comment on above: Daytime sleepiness [R40.0] Start: 01-30-2025 Annual PCP Team Chronic Disease Visit Annual PCP Team Chronic Disease Visit [facility] Start: 01-30-2025 Covid-19 Vaccine ( season) Covid-19 Vaccine () [facility] Comment on above: Postponed from 05/11/2023 (Declined at t his time) Start: 01-30-2025 Pneumococcal vaccination Pneumococcal Vaccine (1 of 2 - PCV) [facility] Comment on above: Postponed from 1979 (Declined at t his time) Start: 01-30-2025 Shingrix Vaccine (1 of 2) Shingrix Vaccine (1 of 2) [facility] Comment on above: Postponed from 2023 (Declined at t his time) Start: 01-12-2025 End: 04-13-2025 Amylase [Enzymatic activity/volume] in Serum or Plasma [facility] Comment on above: Expected: 01/12/2025, Expires: Start: 01-12-2025 End: 04-13-2025 Hepatic function 2000 panel - Serum or Plasma [facility] Work Phone: Comment on above: Expected: 01/12/2025, Expires: Start: 01-12-2025 End: 04-13-2025 Lipase [Enzymatic activity/volume] in Serum or Plasma [facility] Comment on above: Expected: 01/12/2025, Expires: Start: 01-08-2025 End: 01-08-2025 Patient encounter procedure 01/08/2025 2:20 PM EDT Office Visit Family [facility] [address] [place], [place] [id number] Tavon Valencia APRN.[facility] [address] [place] [address] 6 mon follow up/meds [facility] Comment on above: 6 mon follow up/meds Start: 01-08-2025 End: 04-09-2025 Hemoglobin A1c in Blood HEMOGLOBIN A1C Lab Routine IFG (impaired fasting glucose) Expected: 01/08/2025, Expires: 04/09/2025 [facility] Comment on above: Expected: 01/08/2025, Expires: Start: 01-08-2025 End: 04-09-2025 Lipid 1996 panel - Serum or Plasma LIPID PANEL, FASTING Lab Routine Hyperlipidemia, mixed Expected: 01/08/2025, Expires: 04/09/2025 [facility] Work Phone: Comment on above: Expected: 01/08/2025, Expires: Start: 01-07-2025 End: 01-07-2025 Patient encounter procedure 01/07/2025 3:00 PM EDT Office Visit Pulmonary Medicine [address] [place] [address] Yoon Magana APRN.[facility] [address] [place] [address] 3 MTH F/U ASTHMA Pulmonary Medicine Comment on above: 3 MTH F/U ASTHMA Start: 01-07-2025 End: 01-07-2025 ambulatory PULM LAB [facility] Comment on above: PFT Start: 12-17-2024 End: 12-17-2024 Patient encounter procedure 12/17/2024 3:00 PM EDT Office Visit Family [facility] [place] [address] [place] [address] Catalina Almazan APRN.HOSPICE [facility]ER [address] [place] [address] 6 mon follow up [facility] [place] Comment on above: 6 mon follow up Start: 10-09-2024 End: 10-09-2024 Patient encounter procedure 10/09/2024 2:45 PM EST Office Visit Pulmonary Medicine [address] [place] [address] [place] [address] Shayla Rogers MD [address] [place] [address] f/up dr. Clifford Taylor Pulmonary Medicine Comment on above: f/up dr. Clifford Taylor Start: 10-06-2024 End: 10-06-2024 Patient encounter procedure 10/06/2024 1:00 PM EST Office Visit Pulmonary Medicine [address] [place] [address] [place] [address] Elmira Farrar APRN.HOSPICE [facility]TEER [address] [place] [address] To talk about my last couple of cat scans. Pulmonary Medicine Comment on above: To talk about my last couple of cat scan s. Start: 08-03-2024 Hemoglobin A1c measurement HbA1C [facility] Start: 06-26-2024 End: 06-26-2024 Patient encounter procedure 06/26/2024 3:30 PM EDT Office Visit Cardiology [address] [place] [address] LVH (left ventricular hypertrophy) [I51.7] Cardiology Comment on above: LVH (left ventricular hypertrophy) [I51. 7] Start: 06-26-2024 End: 09-25-2024 Comprehensive metabolic 2000 panel - Serum or Plasma COMPREHENSIVE METABOLIC PANEL Lab Routine Elevated LFTs Hypokalemia Expected: 06/26/2024, Expires: 09/25/2024 [facility] Work Phone: Comment on above: Expected: 06/26/2024, Expires: Start: 06-23-2024 End: 06-23-2024 Patient encounter procedure 06/23/2024 3:20 PM EDT Appointment Cat Scan [address] [place] [address] Pulmonary nodule [R91.1] Cat Scan Comment on above: Pulmonary nodule [R91.1] Start: 06-16-2024 End: 06-16-2024 Patient encounter procedure 06/16/2024 3:20 PM EDT Office Visit Family Medicine [place] [address] [place] [place] [address] Avni Salcedo DO [address] [facility] [place] [address] 3-4 months follow Family Medicine [place] Comment on above: 3-4 months follow Start: 06-16-2024 End: 09-15-2024 25-hydroxyvitamin D3 [Mass/volume] in Serum or Plasma VITAMIN D 25 HYDROXY Lab Routine Vitamin D deficiency Fatigue, unspecified type Expected: 06/16/2024, Expires: 09/15/2024 [facility] Comment on above: Expected: 06/16/2024, Expires: Start: 06-16-2024 End: 09-15-2024 Cobalamin (Vitamin B12) [Mass/volume] in Serum or Plasma VITAMIN B12 Lab Routine IFG (impaired fasting glucose) Fatigue, unspecified type Expected: 06/16/2024, Expires: 09/15/2024 [facility] Comment on above: Expected: 06/16/2024, Expires: Start: 06-16-2024 End: 09-15-2024 Comprehensive metabolic 2000 panel - Serum or Plasma COMPREHENSIVE METABOLIC PANEL Lab Routine Hyperlipidemia, mixed Expected: 06/16/2024, Expires: 09/15/2024 [facility] Comment on above: Expected: 06/16/2024, Expires: Start: 06-16-2024 End: 09-15-2024 Methylmalonate [Moles/volume] in Serum or Plasma METHYLMALONIC ACID Lab Routine Vitamin B12 deficiency Expected: 06/16/2024, Expires: 09/15/2024 [facility] Comment on above: Expected: 06/16/2024, Expires: Start: 06-16-2024 End: 09-15-2024 Thyrotropin [Units/volume] in Serum or Plasma THYROID STIMULATING HORMONE Lab Routine Hyperlipidemia, mixed IFG (impaired fasting glucose) Fatigue, unspecified type Expected: 06/16/2024, Expires: 09/15/2024 [facility] Comment on above: Expected: 06/16/2024, Expires: Start: 06-16-2024 End: 09-15-2024 Thyroxine (T4) free [Mass/volume] in Serum or Plasma T4 FREE/FREE THYROXINE Lab Routine Hyperlipidemia, mixed IFG (impaired fasting glucose) Fatigue, unspecified type Expected: 06/16/2024, Expires: 09/15/2024 [facility] Comment on above: Expected: 06/16/2024, Expires: Start: 06-01-2024 DIABETES SCREEN DIABETES SCREEN [facility] Start: 05-11-2024 Covid-19 Vaccine () Covid-19 Vaccine () [facility] Start: 05-11-2024 Influenza vaccination [facility] Start: 05-10-2024 End: 08-09-2024 Lipid 1996 panel - Serum or Plasma LIPID PANEL BASIC Lab Routine Hyperlipidemia, mixed Expected: 05/10/2024, Expires: 08/09/2024 [facility] Work Phone: Comment on above: Expected: 05/10/2024, Expires: Start: 04-16-2024 End: 04-16-2024 Patient encounter procedure 04/16/2024 9:45 AM EDT Appointment [facility] [address] [place] [address] John Chowdhury MD [address] [address] colon/egd [facility] Comment on above: colon/egd Start: 04-03-2024 Hepatitis B surface antibody level LDL CHOLESTEROL [facility] Start: 03-05-2024 End: 03-05-2024 Patient encounter procedure 03/05/2024 1:20 PM EDT Office Visit Family Medicine [place] [address] [place] [address] Su Ham APRN.HOSPICE V[facility]UNTEER [address] [place] [address] 2-3 week b/p recheck [facility] [place] Comment on above: 2-3 week b/p recheck Start: 2024 End: 06-01-2024 Comprehensive metabolic 2000 panel - Serum or Plasma COMPREHENSIVE METABOLIC PANEL Lab Routine Hyperlipidemia, mixed Essential hypertension, benign Expected: 2024, Expires: 06/01/2024 [facility] Comment on above: Expected: 2024, Expires: Start: 02-08-2024 End: 02-08-2024 Patient encounter procedure 02/08/2024 11:30 AM EDT Office Visit [facility] [address] [facility] [place] [address] John Chowdhury MD [address] [address] Z12.11 (ICD-10-CM) - Screening for colon cancer General Surgery Comment on above: Z12.11 (ICD-10-CM) - Screening for colon cancer Start: 01-31-2024 End: 05-01-2024 CBC W Auto Differential panel - Blood COMPLETE BLOOD COUNT AND DIFFERENTIAL Lab Routine Hyperlipidemia, mixed Essential hypertension, benign Expected: 01/31/2024, Expires: 05/01/2024 [facility] Comment on above: Expected: 01/31/2024, Expires: Start: 01-31-2024 End: 05-01-2024 Hemoglobin A1c in Blood HEMOGLOBIN A1C Lab Routine New onset type 2 diabetes mellitus (HCC) Expected: 01/31/2024, Expires: 05/01/2024 [facility] Work Phone: Comment on above: Expected: 01/31/2024, Expires: 4 Start: 01-31-2024 End: 05-01-2024 Lipid 1996 panel - Serum or Plasma LIPID PANEL BASIC Lab Routine Hyperlipidemia, mixed Expected: 01/31/2024, Expires: 05/01/2024 [facility] Comment on above: Expected: 01/31/2024, Expires: 4 Start: 01-31-2024 End: 05-01-2024 PSA/PROSTATE SPECIFIC ANTIGEN SCREENING PSA/PROSTATE SPECIFIC ANTIGEN SCREENING Lab Routine Screening for prostate cancer Expected: 01/31/2024, Expires: 05/01/2024 [facility] Comment on above: Expected: 01/31/2024, Expires: 4 Start: 01-09-2024 3 comp foot exam completed DIABETIC FOOT EXAM [facility] Start: 01-09-2024 ANNUAL PCP TEAM CHRONIC DISEASE VISIT ANNUAL PCP TEAM CHRONIC DISEASE VISIT [facility] Start: 01-09-2024 Diabetic foot examination Diabetic Foot Exam [facility] Start: 11-01-2023 ANNUAL PCP TEAM CHRONIC DISEASE VISIT ANNUAL PCP TEAM CHRONIC DISEASE VISIT [facility] Start: 11-01-2023 BP CONTROLLED (<130/80) BP CONTROLLED (<130/80) [facility] Start: 10-13-2023 Hepatitis B surface antibody level LDL CHOLESTEROL [facility] Start: 10-11-2023 ANNUAL PCP TEAM CHRONIC DISEASE VISIT ANNUAL PCP TEAM CHRONIC DISEASE VISIT [facility] Start: 10-11-2023 BP CONTROLLED (<130/80) BP CONTROLLED (<130/80) [facility] Start: 10-04-2023 Hemoglobin A1c measurement HbA1C [facility] Start: 10-04-2023 Hemoglobin A1c/Hemoglobin.total in Blood HBA1C [facility] Start: 09-29-2023 Screening for malignant neoplasm of lung Lung Cancer Screening [facility] Start: 09-22-2023 ANNUAL PCP TEAM CHRONIC DISEASE VISIT ANNUAL PCP TEAM CHRONIC DISEASE VISIT [facility] Start: 09-22-2023 COVID-19 VACCINE (3 - Booster for Pfizer series) COVID-19 VACCINE (3 - Booster for Pfizer series) [facility] Comment on above: Postponed from 07/18/2021 (Declined at t his time) Start: 09-22-2023 COVID-19 VACCINE (3 - Pfizer series) COVID-19 VACCINE (3 - Pfizer series) [facility] Comment on above: Postponed from 07/18/2021 (Declined at t his time) Start: 09-22-2023 HEPATITIS B (1 of 3 - 3-dose series) HEPATITIS B (1 of 3 - 3-dose series) [facility] Comment on above: Postponed from 1973 (Declined at t his time) Start: 09-22-2023 Hepatitis B Vaccine (1 of 3 - 3-dose series) Hepatitis B Vaccine (1 of 3 - 3-dose series) [facility] Comment on above: Postponed from 1973 (Declined at t his time) Start: 09-18-2023 BP CONTROLLED (<130/80) BP CONTROLLED (<130/80) [facility] Start: 07-10-2023 ANNUAL PCP TEAM CHRONIC DISEASE VISIT ANNUAL PCP TEAM CHRONIC DISEASE VISIT [facility] Start: 05-19-2023 ANNUAL PCP TEAM CHRONIC DISEASE VISIT ANNUAL PCP TEAM CHRONIC DISEASE VISIT [facility] Start: 05-11-2023 Covid-19 Vaccine () Covid-19 Vaccine () [facility] Start: 05-11-2023 Influenza vaccination [facility] Start: 04-12-2023 Hemoglobin A1c/Hemoglobin.total in Blood HBA1C [facility] Start: 03-09-2023 Influenza vaccination INFLUENZA (#1) [facility] Comment on above: Postponed from 05/11/2022 (Declined at t his time) Start: 2023 SHINGRIX VACCINE (1 of 2) SHINGRIX VACCINE (1 of 2) [facility] Start: 02-08-2023 End: 04-10-2023 ALBUMIN/CREAT RATIO RND UR ALBUMIN/CREAT RATIO RND UR Lab Routine New onset type 2 diabetes mellitus (HCC) Expected: 02/08/2023, Expires: 04/10/2023 [facility] Work Phone: Comment on above: Expected: 02/08/2023, Expires: Start: 02-08-2023 End: 04-10-2023 Comprehensive metabolic 2000 panel - Serum or Plasma COMP METABOLIC PANEL Lab Routine New onset type 2 diabetes mellitus (HCC) Expected: 02/08/2023, Expires: 04/10/2023 [facility] Work Phone: Comment on above: Expected: 02/08/2023, Expires: Start: 02-08-2023 End: 04-10-2023 Hemoglobin A1c in Blood HGB A1C Lab Routine New onset type 2 diabetes mellitus (HCC) Expected: 02/08/2023, Expires: 04/10/2023 [facility] Work Phone: Comment on above: Expected: 02/08/2023, Expires: 3 Start: 02-08-2023 End: 04-10-2023 Lipid 1996 panel - Serum or Plasma LIPID PANEL BASIC Lab Routine Dyslipidemia Expected: 02/08/2023, Expires: 04/10/2023 [facility] Work Phone: Comment on above: Expected: 02/08/2023, Expires: 3 Start: 01-29-2023 End: 03-31-2023 Hemoglobin A1c in Blood HGB A1C Lab Routine New onset type 2 diabetes mellitus (HCC) Expected: 01/29/2023, Expires: 03/31/2023 [facility] Work Phone: Comment on above: Expected: 01/29/2023, Expires: 3 Start: 12-12-2022 ANNUAL PCP TEAM CHRONIC DISEASE VISIT ANNUAL PCP TEAM CHRONIC DISEASE VISIT [facility] Start: 12-12-2022 BP CONTROLLED (<130/80) BP CONTROLLED (<130/80) [facility] Start: 11-11-2022 [facility] Comment on above: Postponed from 1992 (Declined at t his time) Start: 11-11-2022 [facility]13 [facility] Comment on above: Postponed from 1992 (Declined at t his time) Start: 11-11-2022 PNEUMOCOCCAL (1 - PCV) PNEUMOCOCCAL (1 - PCV) [facility] ic Comment on above: Postponed from 1979 (Declined at t his time) Start: 11-01-2022 End: 01-01-2023 ALBUMIN/CREAT RATIO RND UR ALBUMIN/CREAT RATIO RND UR Lab Routine New onset type 2 diabetes mellitus (HCC) Expected: 11/01/2022, Expires: 01/01/2023 [facility] Work Phone: Comment on above: Expected: 11/01/2022, Expires: 3 Start: 10-11-2022 End: 12-11-2022 25-hydroxyvitamin D3 [Mass/volume] in Serum or Plasma VITAMIN D 25 HYDROXY Lab Routine Vitamin D deficiency Expected: 10/11/2022, Expires: 12/11/2022 [facility] Work Phone: Comment on above: Expected: 10/11/2022, Expires: 3 Start: 10-11-2022 End: 12-11-2022 Cobalamin (Vitamin B12) [Mass/volume] in Serum or Plasma VITAMIN B12 BLOOD Lab Routine IFG (impaired fasting glucose) Expected: 10/11/2022, Expires: 12/11/2022 [facility] Work Phone: Comment on above: Expected: 10/11/2022, Expires: 3 Start: 10-11-2022 End: 12-11-2022 Comprehensive metabolic 2000 panel - Serum or Plasma COMP METABOLIC PANEL Lab Routine IFG (impaired fasting glucose) Expected: 10/11/2022, Expires: 12/11/2022 [facility] Work Phone: Comment on above: Expected: 10/11/2022, Expires: 3 Start: 10-11-2022 End: 12-11-2022 Hemoglobin A1c in Blood HGB A1C Lab Routine IFG (impaired fasting glucose) Expected: 10/11/2022, Expires: 12/11/2022 [facility] Work Phone: Comment on above: Expected: 10/11/2022, Expires: 3 Start: 10-11-2022 End: 12-11-2022 Lipid 1996 panel - Serum or Plasma LIPID PANEL BASIC Lab Routine Dyslipidemia Expected: 10/11/2022, Expires: 12/11/2022 [facility] Work Phone: Comment on above: Expected: 10/11/2022, Expires: 3 Start: 08-30-2022 BP CONTROLLED (<130/80) BP CONTROLLED (<130/80) [facility] Start: 06-03-2022 End: 08-03-2022 Hepatic function 2000 panel - Serum or Plasma HEPATIC FUNCTION PNL Lab Routine Elevated alanine aminotransferase (ALT) level Expected: 06/03/2022, Expires: 08/03/2022 [facility] Work Phone: Comment on above: Expected: 06/03/2022, Expires: 2 Start: 05-19-2022 End: 07-19-2022 C reactive protein [Mass/volume] in Serum or Plasma [facility] Work Phone: Comment on above: Expected: 05/19/2022, Expires: 2 Start: 05-19-2022 End: 07-19-2022 CBC W Auto Differential panel - Blood [facility] Work Phone: Comment on above: Expected: 05/19/2022, Expires: 2 Start: 05-19-2022 End: 07-19-2022 Comprehensive metabolic 2000 panel - Serum or Plasma [facility] Work Phone: Comment on above: Expected: 05/19/2022, Expires: 2 Start: 05-19-2022 End: 07-19-2022 Thyrotropin [Units/volume] in Serum or Plasma [facility] Work Phone: Comment on above: Expected: 05/19/2022, Expires: 2 Start: 05-11-2022 Influenza vaccination [facility] Start: 12-27-2021 Colonoscopy COLONOSCOPY [facility] Start: 12-27-2021 COLORECTAL CANCER SCREENING COLORECTAL CANCER SCREENING [facility] Start: 12-27-2021 Screening for malignant neoplasm of colon [facility] Start: 10-23-2021 COVID-19 VACCINE (3 - Booster for Pfizer series) COVID-19 VACCINE (3 - Booster for Pfizer series) [facility] Start: 07-18-2021 COVID-19 VACCINE (3 - Booster for Pfizer series) COVID-19 VACCINE (3 - Booster for Pfizer series) [facility] Start: 2018 COLOGUARD (FIT-DNA) COLOGUARD (FIT-DNA) [facility] Start: [address] COLONOGRAPHY [facility] Start: 2018 FECAL OCCULT BLOOD FECAL OCCULT BLOOD [facility] Start: 2018 Screening for malignant neoplasm of colon [facility] Start: 2018 SIGMOIDOSCOPY SIGMOIDOSCOPY [facility] Start: 09-23-2006 Hepatitis B screening URINE ALBUMIN:CREATININE RATIO [facility] Start: 1992 Hepatitis B Vaccine (1 of 3 - 19+ 3-dose series) Hepatitis B Vaccine (1 of 3 - 19+ 3-dose series) [facility] Start: 1992 Pneumococcal Vaccine: 50+ (1 of 2 - PCV) Pneumococcal Vaccine: 50+ (1 of 2 - PCV) [facility] Start: 1992 TWO PNEUMOVAX 5 YEARS APART PRIOR TO AGE 65 (#1) TWO PNEUMOVAX 5 YEARS APART PRIOR TO AGE 65 (#1) [facility] Start: 1983 Glaucoma screening Dilated Retinal Exam [facility] Start: 1983 Hepatitis C antibody, confirmatory test DILATED RETINAL EXAM [facility] Start: 1979 PNEUMOCOCCAL (1 - PCV) PNEUMOCOCCAL (1 - PCV) [facility] ic Start: 1979 [facility] Start: [facility] HEPATITIS B (1 of 3 - 3-dose series) HEPATITIS B (1 of 3 - 3-dose series) [facility] 25-hydroxyvitamin D3 [Mass/volume] in Serum or Plasma VITAMIN D 25 HYDROXY Lab Routine Vitamin D deficiency Fatigue, unspecified type 06/18/2024 4:41 PM EDT [facility] Cholesterol [Mass/vo lume] in Serum or Plasma [facility] Cholesterol in HDL [Mass/volume] in Serum or Plasma [facility] Cobalamin (Vitamin B 12) [Mass/volume] in Serum or Plasma VITAMIN B12 Lab Routine IFG (impaired fasting glucose) Fatigue, unspecified type 06/18/2024 4:41 PM EDT [facility] Comprehensive metabo lic 2000 panel - Serum or Plasma COMPREHENSIVE METABOLIC PANEL Lab Routine Hyperlipidemia, mixed 06/18/2024 4:41 PM EDT [facility] End: 11-05-2025 CT Chest for screening WO contrast CT LUNG SCREEN WO IVCON Radiology Routine Tobacco abuse Encounter for screening for lung cancer 1 Occurrences starting 10/06/2024 until 11/05/2025 [facility] Work Phone: Comment on above: 1 Occurrences starting 10/06/2024 until 11/05/2025 End: 07-16-2025 CT Chest WO contrast CT CHEST WO IVCON Radiology Routine Pulmonary nodule 1 Occurrences starting 06/16/2024 until 07/16/2025 [facility] Comment on above: 1 Occurrences starting 06/16/2024 until 07/16/2025 CT Chest WO contrast CT CHEST WO IVCON Radiology Routine Pulmonary nodule 06/23/2024 3:30 PM EDT [facility] Work Phone: End: 06-18-2023 Ct soft tissue neck w/contrast material CT NECK SOFT TISSUE W IVCON Radiology Routine Localized swelling, mass and lump, neck Neck pain without injury Localized enlarged lymph nodes 1 Occurrences starting 05/19/2022 until 06/18/2023 [facility] Work Phone: Comment on above: 1 Occurrences starting 05/19/2022 until 06/18/2023 End: 10-22-2023 Ct thorax w/o contrast material CT CHEST WO IVCON Radiology Routine Wheezing Bronchitis 1 Occurrences starting 09/22/2022 until 10/22/2023 [facility] Work Phone: Comment on above: 1 Occurrences starting 09/22/2022 until 10/22/2023 End: 10-11-2023 Echocardiography ECHO Cardiology Routine LVH (left ventricular hypertrophy) 1 Occurrences starting 10/11/2022 until 10/11/2023 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 1 Occurrences starting 06/16/2024 until 06/16/2025 [facility] Comment on above: 1 Occurrences starting 06/16/2024 until 06/16/2025 End: 02-07-2025 EGD DIAGNOSTIC EGD DIAGNOSTIC Endoscopy Routine Screening for colon cancer Hyperlipidemia, mixed Gastroesophageal reflux disease, unspecified whether esophagitis present Irritable bowel syndrome with constipation Diarrhea, unspecified type Personal history of colonic polyps 1 Occurrences starting 02/08/2024 until 02/07/2025 [facility] Comment on above: 1 Occurrences starting 02/08/2024 until 02/07/2025 Low density lipoprot ein cholesterol measurement [facility] End: 11-01-2023 LUNG VOLUMES LUNG VOLUMES PFT Routine Bronchitis Asthma, moderate persistent, well-controlled Sarcoidosis of lung (HCC) 1 Occurrences starting 10/02/2022 until 11/01/2023 [facility] Work Phone: Comment on above: 1 Occurrences starting 10/02/2022 until 11/01/2023 Methylmalonate [Moles/volume] in Serum or Plasma METHYLMALONIC ACID Lab Routine Vitamin B12 deficiency 06/18/2024 4:41 PM EDT [facility] End: 02-11-2026 MR Spleen WO contrast MRI SPLEEN WO IVCON Radiology Routine Splenomegaly, not elsewhere classified Left sided abdominal pain 1 Occurrences starting 01/12/2025 until 02/11/2026 [facility] Work Phone: Comment on above: 1 Occurrences starting 01/12/2025 until 02/11/2026 End: 11-08-2025 NITRIC OXIDE, EXHALED NITRIC OXIDE, EXHALED PFT Routine Asthma, moderate persistent, poorly-controlled 1 Occurrences starting 10/09/2024 until 11/08/2025 [facility] Work Phone: Comment on above: 1 Occurrences starting 10/09/2024 until 11/08/2025 End: 02-06-2026 NITRIC OXIDE, EXHALED NITRIC OXIDE, EXHALED PFT Routine Asthma, moderate persistent, poorly-controlled (HCC) 1 Occurrences starting 01/07/2025 until 02/06/2026 [facility] Comment on above: 1 Occurrences starting 01/07/2025 until 02/06/2026 Patient Education ED Muscle Stra in, Extremity [facility] Work Phone: Patient referral [facility] Work Phone: End: 01-07-2026 Polysomnogram POLYSOMNOGRAM (PSG) Procedures Routine Daytime sleepiness 1 Occurrences starting 01/07/2025 until 01/07/2026 [facility] Work Phone: Comment on above: 1 Occurrences starting 01/07/2025 until 01/07/2026 End: 02-07-2025 Screening colonoscopy COLONOSCOPY SCREENING Endoscopy Routine Screening for colon cancer Hyperlipidemia, mixed Gastroesophageal reflux disease, unspecified whether esophagitis present Irritable bowel syndrome with constipation Diarrhea, unspecified type Personal history of colonic polyps 1 Occurrences starting 02/08/2024 until 02/07/2025 [facility] Work Phone: Comment on above: 1 Occurrences starting 02/08/2024 until 02/07/2025 End: 11-01-2023 SPIROMETRY - BASELINE AND POST DILATOR SPIROMETRY - BASELINE AND POST DILATOR PFT Routine Bronchitis Asthma, moderate persistent, well-controlled Sarcoidosis of lung (HCC) 1 Occurrences starting 10/02/2022 until 11/01/2023 [facility] Work Phone: Comment on above: 1 Occurrences starting 10/02/2022 until 11/01/2023 End: 11-08-2025 SPIROMETRY - BASELINE AND POST DILATOR SPIROMETRY - BASELINE AND POST DILATOR PFT Routine Asthma, moderate persistent, poorly-controlled 1 Occurrences starting 10/09/2024 until 11/08/2025 [facility] Comment on above: 1 Occurrences starting 10/09/2024 until 11/08/2025 SPIROMETRY - BASELIN E AND POST DILATOR SPIROMETRY - BASELINE AND POST DILATOR PFT Routine Asthma, moderate persistent, poorly-controlled (HCC) 01/07/2025 2:28 PM EDT [facility] Work Phone: SURGICAL PATHOLOGY [facility] Work Phone: Comment on above: Release Upon Ordering for 1 Occurrences starting 04/16/2024, 1 completed Thyrotropin [Units/volume] in Serum or Plasma THYROID STIMULATING HORMONE Lab Routine Hyperlipidemia, mixed IFG (impaired fasting glucose) Fatigue, unspecified type 06/18/2024 4:41 PM EDT [facility] Thyroxine (T4) free [Mass/volume] in Serum or Plasma T4 FREE/FREE THYROXINE Lab Routine Hyperlipidemia, mixed IFG (impaired fasting glucose) Fatigue, unspecified type 06/18/2024 4:41 PM EDT [facility] Total cholesterol:HD L ratio measurement [facility] Triglycerides measurement [facility] Troponin T.cardiac [Mass/volume] in Serum or Plasma by High sensitivity method [facility] UA DIP B/O UA DIP B/O Lab R outine Encounter for examination required by Department of Transportation (DOT) Ordered: 12/12/2021 [facility] Work Phone: Comment on above: Ordered: 12/12/2021 VLDL cholesterol measurement [facility] XR Foot - left AP an d Lateral and oblique XR FOOT GENERAL 3V AP/LAT/OBL LEFT Radiology Routine Foot pain, left 06/16/2024 4:52 PM EDT [facility] End: 07-16-2025 XR Foot - left AP and Lateral and oblique XR FOOT GENERAL 3V AP/LAT/OBL LEFT Radiology Routine Foot pain, left 1 Occurrences starting 06/16/2024 until 07/16/2025 [facility] Comment on above: 1 Occurrences starting 06/16/2024 until 07/16/2025 XR Hand - left PA an d Lateral and Oblique XR HAND GENERAL 3V PA/LAT/OBL LEFT Radiology Routine Pain of left thumb 06/16/2024 4:52 PM EDT [facility] Work Phone: End: 07-16-2025 XR Hand - left PA and Lateral and Oblique XR HAND GENERAL 3V PA/LAT/OBL LEFT Radiology Routine Pain of left thumb 1 Occurrences starting 06/16/2024 until 07/16/2025 [facility] Work Phone: Comment on above: 1 Occurrences starting 06/16/2024 until 07/16/2025 End: 12-01-2023 XR SHOULDER GENERAL 3V OR MORE AP/TRUE AP/OTHER RIGHT XR SHOULDER GENERAL 3V OR MORE AP/TRUE AP/OTHER RIGHT Radiology Routine Acute pain of right shoulder 1 Occurrences starting 11/01/2022 until 12/01/2023 [facility] Work Phone: Comment on above: 1 Occurrences starting 11/01/2022 until 12/01/2023 XR SHOULDER GENERAL 3V OR MORE AP/TRUE AP/OTHER RIGHT XR SHOULDER GENERAL 3V OR MORE AP/TRUE AP/OTHER RIGHT Radiology Routine Acute pain of right shoulder 11/01/2022 3:32 PM EST [facility] Work Phone: [facility] Immunizations Immunization Date Immunization Notes Care Provider Fa [facility] 05-10-2021 tetanus toxoid, redu berny diphtheria toxoid, and acellular pertussis vaccine, adsorbed ERIK Ludwig PA-C Work Phone: [facility] Work Phone: 05-02-2021 COVID-19 vaccine, ag e 12+ yr ([employer] - PURPLE TOP) ERIK Ludwig PA-C Work Phone: [facility] Work Phone: 03-21-2021 tetanus toxoid, redu berny diphtheria toxoid, and acellular pertussis vaccine, adsorbed Dr. Avni Salcedo Work Phone: [facility] 06-20-2017 influenza virus vaccine, unspecified formulation Mri (I-Stat/1.5t) Work Phone: [facility] Payers Date Payer Category Payer Self-pay [id number] 2024 Medicaid [id number] 2024 Private Health Insurance [employer]NA HU[employer]NA MEDICAID [facility] [id number] 2024-Present [address] [address] [place] [address] Medicaid [id number] 2024 Medicaid [id number] 2021 Unknown [employer] PRE SYDNI FULLY INSURED [id number] 2021-Present [phone] [address] [place] [address] PPO [id number] 2016 Unknown [id number] 2015 Unknown 1975 Unknown [id number] 1975 Unknown [id number] Unknown [id number] Unknown [id number] Social History Date Type Detail Facility Start: 12-13-2016 End: 02-21-2025 Tobacco smoking status NHIS Ex-smoker [facility] Work Phone: Start: 04-03-1991 End: 11-15-2016 History of tobacco use Current smoker [facility] Work Phone: Start: 04-03-1991 End: 11-15-2016 History of tobacco use Cigarette Smoker [facility] Work Phone: Start: 12-13-2016 End: 08-15-2020 Cigarettes smoked current (pack per day) - Reported 1 [facility] Start: 12-13-2016 End: 06-16-2024 Tobacco use and exposure Smokeless tobacco non-user [facility] Work Phone: Start: 12-12-2021 End: 01-12-2025 Alcohol intake Current drinker of alcohol (finding) [facility] Start: 04-21-2020 End: 05-27-2020 History SDOH Alcohol Frequency 5 [facility] Start: 05-27-2020 End: 08-16-2020 History SDOH Alcohol Std Drinks 2 [facility] Start: 05-27-2020 End: 08-16-2020 History SDOH Alcohol Binge 3 [facility] Start: 04-03-2017 History SDOH Alcohol Comment OCCASIONALLY. [facility] Start: 10-29-2019 End: 05-27-2020 History SDOH Social Connections Phone 98 [facility] Start: 05-27-2020 History SDOH Physical Activity DPW 0 [facility] Start: 10-29-2019 End: 08-16-2020 History SDOH Food Worry 1 [facility] Start: 10-29-2019 Education 12 [facility] Start: 03-06-2019 End: 07-10-2022 Tobacco Comment Childhood home smoke free; at girlfriends 2 nights and smoker in home. [facility] Start: 1975 Sex Assigned At Male [facility] Start: 08-24-2020 End: 07-10-2022 Exposure to SARS-CoV-2 (event) Not sure [facility] Start: 11-16-2022 Tobacco smoking status NHIS Unknown if ever smoked [facility] Start: 11-30-2016 None [facility] Start: 11-30-2016 Spouse/ Significant Other [facility] Start: 11-30-2016 Non-smoker [facility] Start: 05-27-2020 End: 08-15-2020 Social connection and isolation panel [facility] Frequency of Communication with Friends and Family Not on file [facility] How often to you hav e a drink containing alcohol? 4 or more times a week [facility] How many standard dr inks containing alcohol do you have on a typical day? 3 or 4 [facility] How often do you hav e 6 or more drinks on 1 occasion? Monthly [facility] How hard is it for y ou to pay for the very basics like food, housing, medical care, and heating Somewhat hard [facility] Do you feel stress - tense, restless, nervous, or anxious, or unable to sleep at night because your mind is troubled all the time - these days [OSQ] Very much [facility] (I/We) worried wheth er (my/our) food would run out before (I/we) got money to buy more. Never true [facility] At any time in the p ast 12 months, were you homeless or living in senior living [including now]? No [facility] Start: 11-08-2021 Gender identity Identifies as male gender (finding) [facility] Start: 12-31-2018 Sexual orientation Heterosexual (finding) [facility] How often do you hav e 6 or more drinks on 1 occasion? Monthly [facility] Functional Status Date Assessment Result Facility 03-15-2016 Are you deaf, or do you have serious difficulty hearing No 03/15/2016 3:48 PM [facility] Matthew Horne III, MD No [facility] 03-15-2016 Are you blind, or do you have serious difficulty seeing, even when wearing glasses No 03/15/2016 3:48 PM Matthew Johnson III, MD No [facility] 03-15-2016 Do you have serious difficulty walking or climbing stairs No 03/15/2016 3:48 PM Matthew Johnson III, MD No [facility] 03-15-2016 Do you have difficul ty dressing or bathing No 03/15/2016 3:48 PM Matthew Johnson III, MD No [facility] 03-15-2016 Because of a physica l, mental, or emotional condition, do you have difficulty doing errands alone such as visiting a physician's office or shopping No 03/15/2016 3:48 PM Matthew Johnson III, MD No [facility] Mental Status Date Assessment Result Facility 02-21-2025 Cognitive function Voice/Name [facility] Work Phone: 03-15-2016 Because of a physica l, mental, or emotional condition, do you have serious difficulty concentrating, remembering, or making decisions No 03/15/2016 3:48 PM EDT Matthew Horne III, MD No [facility] Clinical Notes 08-20-2006 to 02-21-2025 Note Date & Type Note Facility 02-21-2025 Discharge summary [facility] 02-21-2025 Discharge summary Note Date/Time February 21, 2025 2:33pm [facility] Medical Records Department [address] [place] [address] Emergency Department Summary 02/21/25 MR#: [id number] Acct: [id number] Name: JAKE CHAIREZ Rep #:[id number] : 1975 49 From: Eduardo Hernandez MD PCP: Dr. Avni Salcedo, DO Status:RE G ER Location: ED HPI History of Present Illness Chief Complaint: Chest Pain Informant: patient and spouse/S.O. Onset/Context/Timing Onset: Days Activity at onset: gradual Timing: Intermittent Quality: Positive for Aching, Tightness and - (Bandlike heaviness or tightness around his chest. With exertion.) Location: Right Chest and Left Chest Current Severity: Gone Maximum Severity: Moderate Worsened By: Exertion Relieved By: Rest Associated Symptoms: Positive for Diaphoresis and Dyspnea; Negative for Nausea, Vomiting, Cough, Fever, Lightheadedness, Acid Reflux or Palpitations Narrative Narrative: 49-year-old male history of hypertension, sarcoidosis. No prior cardiac history. No history of DVT or PE or risk factors. States Sunday of this week he was walking walked about half mile primarily uphill said he got very short of breath and chest pain across the chest. He states feels like a bandlike tightness. Better at rest. He is also recent traveling going up steps. Denies any history of cardiac disease. No history of DVT or PE risk factors. He has never had a heart cath in the city and had a stress test for years. Does not know his family history. Prior Similar Symptoms: No Recent Illness/Hospitalization: No CVD Risk Factors: Positive for Hypertension and Diabetes PE Risk Factors: Negative for Recent Travel/Surgery, Recent Immobilization, Prior DVT or PE, Cancer or OCP + Smoking + >/=35 TAD Risk Factors: Negative for Marfan's Syndrome [facility] Medical History Chronic neck and back pain Asthma Severe headache Hay fever Hemorrhoids Lung disease SOB (shortness of breath) Sarcoidosis HTN (hypertension) Laceration of left ring finger Home Medications ?Medication ?Instructions ?Recorded ?Last Taken ?Type cyclobenzaprine 10 mg tablet 10 mg PO TID 04/12/15 History ipratropium 20 mcg-albuterol 100 1 puff inhalation SHERIDAN LY 04/12/15 02/20/25 History mcg/actuation mist for inhalation (Combivent Respimat) omeprazole 20 mg capsule,delayed 20 mg PO DAILY 02/21/25 History release fexofenadine 180 mg tablet 180 mg PO DAILY 11/30/16 History (Tonya Allergy) atorvastatin 40 mg tablet 40 mg PO QHS 12/27/16 History montelukast 10 mg tablet 10 mg PO QHS 03/21/21 History albuterol sulfate 2.5 mg/3 mL 2.5 mg inhalation DAILY PRN 11/02/22 02/20/25 History (0.083 %) solution for nebulization shortness of breat h or wheezing cholecalciferol (vitamin D3) 125 5,000 unit PO DAILY 0 11/02/22 02/21/25 History mcg (5,000 unit) capsule lisinopril 20 mg tablet 20 mg PO DAILY 11/02/2202/08 History promethazine 25 mg tablet 25 mg PO DAILY PRN allergy s ymptoms 11/02/22 02/20/25 History rizatriptan 10 mg disintegrating 10 mg translingual DA LUCIE PRN 11/02/22 Unknown History tablet migraine headache atorvastatin 20 mg tablet 20 mg PO QHS 02/21/25 History hydrocodone 7.5 mg-ibuprofen 200 1 - 4 tab PO TID PRN pain 02/21/25 02/21/25 History mg tablet potassium chloride 1 tab PO DAILY 02/21/2502/08 History umeclidinium 62.5 mcg-vilanterol 1 inh inhalation OSITO Y 02/21/25 Unknown History 25 mcg/actuation powdr for inhalation (Anoro Ellipta) Allergy/AdvReac Type Severity Reaction Status Date / Time atomoxetine Allergy mental Verified 02/21/25 10:04 status change duloxetine Allergy unknown Verified 02/21/25 10:04 gabapentin Allergy mental Verified 02/21/25 10:04 status change tetanus immune globulin Allergy deltoid Verified 02/21/25 10:04 swelling/tender at 15yo; requested Tdap update today codeine AdvReac Nausea Verified 02/21/25 10:04 fluticasone propionate (From AdvReac MIGRAINE Verified 02/21/25 10:04 Flonase) Social History Smoking Status: Former smoker alcohol intake: never ROS ROS ED ROS Narrative Exertional chest pain. Dyspnea. Diaphoresis. Constitutional Constitutional ED: Denies chills or fever(s) Eyes Eyes: Reports none ENT ENT ED: Denies ear pain Cardiovascular Cardiovascular: Reports as per HPI and chest pain Respiratory/Chest Respiratory/Chest: Reports dyspnea and dyspnea on exertion; Denies cough Gastrointestinal Gastrointestinal: Denies abdominal pain Genitourinary Genitourinary ED: Denies dysuria or hematuria Musculoskeletal Musculoskeletal: Denies arthralgias or back pain Integumentary Denies abscess Neurologic Neurologic: Denies headache(s) Psychiatric Psychiatric: Denies anxiety Endocrine Endocrinology: Denies cold intolerance Hematologic/Lymphatic Hematologic/Lymphatic: Denies easy bleeding, easy bruising or lymphadenopathy Allergic/Immunologic Allergic/Immunologic ED: Denies mouth swelling, tongue swelling or urticaria EXAM Physical Exam Narrative Exam Narrative: 49-year-old male sitting upright in bed. Vital signs are stable afebrile. Pulse ox 90% on room air no hypoxia. H EENT exam pupils round react light. Moist extremities. Neck nontender no JVD. Back nontender. Lungs clear to auscultation bilaterally. Heart regular rhythm rate about 110 no murmur. Chestwall ribs nontender. Abdomen soft nontender. No right upper quadrant tenderness. Moving all 4 extremities. 5-5 mexican food cook strength. Dorsi plantarflexionintact. Equal symmetrical radial pulses. Calves are nontender without edema orcords. Neurologically is awake alert. He is answering questions following commands. Const Vital Signs: 02/21/25 10:04 02/21/25 10:04 02/21/25 10:53 Temperature 97.1 F L Temperature Source Temporal Pulse Rate 113 H 115 H Respiratory Rate 14 Respiratory Effort Normal Non-Labored Blood Pressure 130/86 H Blood Pressure Mean 100 Pulse Ox 98 Oxygen Delivery Method Room Air 02/21/25 10:57 02/21/25 12:04 02/21/25 13:31 Temperature Temperature Source Pulse Rate 107 H 107 H Respiratory Rate 14 13 Respiratory Effort Blood Pressure 125/85 H 117/74 Blood Pressure Mean 98 88 Pulse Ox 96 97 Oxygen Delivery Method Room Air Room Air Positive well nourished and well developed; Negative for cachectic, contracturesor unkempt General Appearance ED: well developed and NAD; Negative for unkempt, cachectic, contractures or pallor Nutritional Appearance: Negative for cachectic HEENT Reports moist mucous membranes normocephalic and atraumatic Eyes PERRL and EOMs intact bilaterally Neck no lymphadenopathy, supple and no JVD Chest Wall inspection of chest normal and palpation of chest normal Resp normal respiratory effort and clear to auscultation bilaterally Cardio regular rhythm, S1 normal heart sound, S2 normal heart sound and no murmurs; Negative for regular rate Rate: tachycardic Peripheral Pulses: pulses 2+ throughout GI normal to inspection, nondistended, normoactive bowel sounds, soft to palpation,non-tender, non-distended and no masses Back/Spine no CVA tenderness and no thoracic nor lumbar tenderness Extremity normal to inspection General Extremety ED: Negative for edema or pulses abnormal General Extremity: Negative for edema or pulses abnormal Neuro oriented x3 and CN's II-XII intact bilaterally Sensorium / Orientation: awake, alert, oriented to person, oriented to place andoriented to time Motor Exam: strength 5/5 throughout Psych mental status grossly normal Appearance: Negative for unkempt Mood & Affect: anxious Skin no rashes or lesions noted and no wounds General Skin Exam: Negative for jaundice or pallor Rashes: No rashes noted Trauma: Negative for abrasion or laceration Heart Score History: Moderately Suspicious ECG: Normal Age: >45 - <65 years Risk Factors: 1 or 2 Risk Factors Troponin: </= Normal Limit Score: 3 MDM MDM MDM Narrative Medical decision making narrative: 49-year-old male with exertional chest pain and dyspnea. May be cardiac etiology versus he has a history of asthma and sarcoidosis but says it does not feel like either 1 of those 2. It is not reproducible do not appear to be musculoskeletal pain. He has had no history of DVT or PE risk factors I do not think it is that. Repeat exam patient doing well. His cardiac workup so far is negative. His second troponin was 7. Patient be admitted to the hospitalist. For cardiac testing. History & Record Review Discussion w/independent historian: Patient Additional record(s) reviewed:: Prior inpatient record, Prior outpatient record,Prior ED visit and Prior labs Lab Data Attestation: I reviewed the patient's lab results. Lab results narrative: CBC normal. White count 7. H&H 14 and 41. Platelets 210. Electrolytes show a gap 14. BUN and creatinine 25 1.47. Glucose 128. Initial troponin 9. 2-hour troponin 7. Chest x-ray negative. Labs: Laboratory Results - last 24 hr 02/21/25 02/21/25 10:28 12:28 WBC 7.2 RBC 4.67 Hgb 14.5 Hct 41.6 MCV 89.1 MCH 31.0 MCHC 34.9 RDW Std Deviation 41.1 RDW Coeff of Dione 12.6 Plt Count 210 MPV 10.0 Immature Gran % (Auto) 0.700 Neut % (Auto) 62.2 Lymph % (Auto) 24.0 [place] % (Auto) 9.6 Eos % (Auto) 2.8 Baso % (Auto) 0.7 Absolute Neuts (auto) 4.5 Absolute Lymphs (auto) 1.72 Nucleated RBC % 0 Sodium 135 Potassium 4.7 Chloride 98 Carbon Dioxide 21.9 Anion Gap 14 BUN 25 H Creatinine 1.47 H Estim Creat Clear Calc 53.65 Est GFR (MDRD) Non-Af 57 L BUN/Creatinine Ratio 17.2 Glucose 128 H Calcium 10.3 Troponin T High Sens 9 Troponin T Hi Sens 2 Hr 7 Radiography Chest X-Ray - ED: 1 View, Read by ED Physician, Normal, Heart, Lungs, Mediastinum, Bony Structures and No Acute Disease Diagnostic Testing: Clinical Impression(s) from Imaging Studies Chest X-Ray 02/21/25 10:57 IMPRESSION: Left lower lobe subsegmental atelectasis. No definite focal consolidations. Reading Location: [facility] Chest x-ray, portable, single view interpreted by myself and radiologist shows no acute abnormality. Normal cardiac silhouette. Normal mediastinum. Normal lung wilcox. Rhythm Strip Rhythm Strip: Sinus Tach Rate: 108 Ectopy: None EKG Initial EKG: Attestation: I personally reviewed and interpreted this EKG as follows: Interpretation: No Acute Injury Pattern and Sinus Tachycardia Comments: Sinus tachycardia rate of 108 no acute signs of VT or ischemia. Discharge Plan Triage Chief Complaint: Chest Pain ED Provider: Eduardo Hernandez Dx/Rx/DC Orders Clinical Impression: Chest pain, exertional, History of asthma, History of sarcoidosis Prescriptions: No Action cholecalciferol (vitamin D3) 125 mcg (5,000 unit) capsule 5,000 unit PO DAILY Patient Comments: TAKE 1 CAPSULE BY MOUTH ONCE DAILY albuterol sulfate 2.5 mg /3 mL (0.083 %) solution for nebulization 2.5 mg inhalation DAILY PRN (Reason: shortness of breath or wheezing) Patient Comments: USE 1 VIAL IN NEBULIZER EVERY 4 HOURS NEEDED FOR WHEEZING FOR SHORTNESS OFBREATH. USE OVER 5-15 MINUTES promethazine 25 mg tablet 25 mg PO DAILY PRN (Reason: allergy symptoms) lisinopril 20 mg tablet 20 mg PO DAILY Patient Comments: TAKE 1 TABLET BY MOUTH ONCE DAILY rizatriptan 10 mg tablet,disintegrating 10 mg translingual DAILY PRN (Reason: migraine headache) Patient Comments: TAKE 1 TABLET BY MOUTH NEEDED FOR MIGRAINE HEADACHE. MAY REPEAT IN 2 HOURSIF NEEDED. cyclobenzaprine 10 MG tablet 10 mg PO TID Patient Comments: MUSCLE RELAXER omeprazole 20 MG capsule 20 mg PO DAILY Patient Comments: ACID REFLUX Combivent Respimat 1 PUFF inhaler 1 puff inhalation DAILY Patient Comments: ASTHMA montelukast 10 mg tablet 10 mg PO QHS Patient Comments: ALLERGIES fexofenadine [Tonya Allergy] 180 MG tablet 180 mg PO DAILY Patient Comments: ALLERGIES atorvastatin 40 MG tablet 40 mg PO QHS atorvastatin 20 mg tablet 20 mg PO QHS umeclidinium-vilanterol [Anoro Ellipta] 62.5-25 mcg/actuation blister with device 1 inh INHALATION DAILY Patient Comments: PT TAKES AT BEDTIME. potassium chloride 1 tab PO DAILY hydrocodone-ibuprofen 7.5-200 mg tablet 1 - 4 tab PO TID PRN (Reason: pain) Primary Care Provider: Avni Salcedo Referrals: Avni Salcedo, DO [Primary Care Provider] - Print Language: German Disposition Disposition: Acute Care Hospital [facility] What to do if you have Problems For any increased pain, shortness of breath, bleeding, nausea or vomiting, chestpain, or any unexpected problems, contact your Primary Care Provider. Call [facility] ([phone]) or report to the closest Emergency Room. Call 911 if necessary. 02/21/25 1433 <Electronically signed by Eduardo Hernandez MD> Cosigner Signature (if applicable): CC: Dr. Avni Salcedo DO ~ Signed [facility] Work Phone: [phone] 710-710106-14-2025 Radiology Diagnostic study note [facility] Imaging Services [address] [place] [address] Chest 1 View (Portable) MR#: [id number] Acct: [id number] Name: JAKE CHAIREZ Rep #: [id number] : 1975 M 49 From: Jada Perez MD PCP: Dr. Avni Salcedo DO Status: RE G ER Study:Chest 1 View (Portable) Date of Exam: 02/21/25 Exam# [id number] Ordering Dr: Carlos Hernandez MD PROCEDURE: CHEST 1 VIEW (PORTABLE) 02/21/2025 REASON FOR EXAM: CHEST PAIN TECHNIQUE: Frontal view of the chest. COMPARISON: None FINDINGS: Left lower lobe subsegmental atelectasis. No definite focal consolidations. Nopneumothorax or pleural effusions. Cardiac silhouette is within normal limits. RAD/Chest 1 View (Portable) IMPRESSION: Left lower lobe subsegmental atelectasis. No definite focal consolidations. Reading Location: [id number] CC: Dr. Eduardo Hernandez MD; Dr. Avni Salcedo DO ~ Casino Shift Manager: Signed [facility]06-14-2025 History of Present illness Narrative* Adrianna Meza PA - 02/21/2025 9:51 AM EDT 49-year-old male presents for chest pain, high [...] No current chest pain. documented in this encounterJoint [facility] Telephone encounter Note * Telephone Encounter - Shanna Andres MA - 02/05/2025 2:20 PM EDT Patient informed and verbalized understanding. Shanna Andres MA [facility]05-29-2025 Miscellaneous Notes* Telephone Encounter - Shanna Andres MA - 02/05/2025 2:20 PM EDT Patient informed and verbalized understanding. Shanna Andres MA * Telephone Encounter - Elmer White MD - 02/04/2025 4:38 PM EDT Let patient know his insurance is denying the MRI. When I went back and looked at the x-ray report I seen that it mentioned that this was similar to CT from 2011 and MRI from 2018. Therefore I would not pursue any further imaging. Order has been cancelled. documented in this encounterJoint [facility]05-28-2025 Telephone encounter Note * Telephone Encounter - Elmer White MD - 02/04/2025 4:38 PM EDT Let patient know his insurance is denying the MRI. When I went back and looked at the x-ray report I seen that it mentioned that this was similar to CT from 2012 and MRI from 2018. Therefore I would not pursue any further imaging. Order has been cancelled. [facility] Work Phone: 1(211) 826-456405-07-2025 Telephone encounter Note* Telephone Encounter - Yolanda Girard RN - 01/14/2025 4:18 PM EDT Patient notified of results and provider's instructions. Patient verbalizes understanding. Yolanda Girard RN [facility]05-07-2025 Miscellaneous Notes* Telephone Encounter - Yolanda Girard RN - 01/14/2025 4:18 PM EDT Patient notified of results and provider's instructions. Patient verbalizes understanding. Yolanda Girard RN * Telephone Encounter - Arlyn De Leon MA - 01/14/2025 2:55 PM EDT Left message for patient to contact office. Arlyn De Leon MA * Telephone Encounter - Elmer White MD - 01/13/2025 5:26 PM EDT Let patient know his liver functions, pancreactic functions and blood count were all ok. documented in this encounterJoint [facility]05-07-2025 Telephone encounter Note * Telephone Encounter - Arlyn De Leon MA - 01/14/2025 2:55 PM EDT Left message for patient to contact office. Arlyn De Leon MA [facility]05-06-20[facility] Telephone encounter Note* Telephone Encounter - Elmer White MD - 01/13/2025 5:26 PM EDT Let patient know his liver functions, pancreactic functions and blood count were all ok. [facility] Work Phone: 1(818) 330-926505-06-2025 Telephone encounter Note* Telephone Encounter - Liz Bryant MA - 01/13/2025 2:42 PM EDT Pt notified and states that he does not want to restart the medication at this time. Pt states he would like to try working on his diet first and see if he can get it down that way before restarting medications. Liz Bryant MA [facility]05-06-2025 Miscellaneous Notes* Telephone Encounter - Liz Bryant MA - 01/13/2025 2:42 PM EDT Pt notified and states that he does not want to restart the medication at this time. Pt states he would like to try working on his diet first and see if he can get it down that way before restarting medications. Liz Bryant MA * Telephone Encounter - Tavon Valencia APRN.CNP - 01/13/2025 2:27 PM EDT Please let patient know his hgba1c has increased from 5.8 to 7.1. It appears patient has been on metformin in the past and may need to go back on it due to sudden increase in BS. Is patient open to restarting medication? documented in this encounterJoint [facility]05-06-2025 Telephone encounter Note * Telephone Encounter - Tavon Valencia APRN.HOSPICE VOLUNTEER - 01/13/2025 2:27 PM EDT Please let patient know his hgba1c has increased from 5.8 to 7.1. It appears patient has been on metformin in the past and may need to go back on it due to sudden increase in BS. Is patient open to restarting medication? [facility]05-06-20[facility] Telephone encounter Note* Telephone Encounter - Elmer White MD - 01/13/2025 7:58 AM EDT Noted. [facility]05-06-2025 Miscellaneous Notes* Telephone Encounter - Elmer White MD - 01/13/2025 7:58 AM EDT Noted. * Telephone Encounter - Arlyn De Leon MA - 01/12/2025 4:35 PM EDT Patient notified and voiced understanding. He is approved for a MRI lumbar. He would like to do these together once approved. As he has issuesbeing the MRI machine. He is going to let us know. Arlyn De Leon MA * Telephone Encounter - Elmer White MD - 01/12/2025 3:58 PM EDT Let patient know x-ray showed no acute findings. His spleen still appears enlarged. Want to get a MRI to re-look at the spleen. Order placed. documented in this encounterJoint [facility]05-05-2025 Telephone encounter Note * Telephone Encounter - Arlyn De Leon MA - 01/12/2025 4:35 PM EDT Patient notified and voiced understanding. He is approved for a MRI lumbar. He would like to do these together once approved. As he has issuesbeing the MRI machine. He is going to let us know. Arlyn De Leon MA [facility]05-05-20[facility] Telephone encounter Note* Telephone Encounter - lEmer White MD - 01/12/2025 3:58 PM EDT Let patient know x-ray showed no acute findings. His spleen still appears enlarged. Want to get a MRI to re-look at the spleen. Order placed. [facility]05-[facility] History of Present illness Narrative* Pattie Mejia RT(R) - 01/12/2025 3:20 PM EDT Radiology Service Progress Note PATIENT NAME: [...] PATIENT PRESENTS WITH AN IMPLANTABLE OR ATTACHED MANAGER TRAVEL: No RADIOLOGY DEPARTMENT: General X-ray: Exam(s) Completed: Rib X-Ray: Left PERIPHERAL IV DATA: Not applicable SIGNED BY: RT Evelio(R) January 12, 2025 3:09 PM documented in this encounterJoint [facility] District [facility] Hospital05-05-2025 NoteHNO ID: [id number] Author: PATTIE MEJIA RT(R) Service: Radiology Author [...] PATIENT PRESENTS WITH AN IMPLANTABLE OR ATTACHED MANAGER TRAVEL: No RADIOLOGY DEPARTMENT: General X-ray: Exam(s) Completed: Rib X-Ray: Left PERIPHERAL IV DATA: Not applicable SIGNED BY: RT Evelio(R) January 12, 2025 3:09 [facility]05-05-2025 NoteHNO ID: [id number] Author: ELMER WHITE MD Service: ? Author [...] daily HYDROcodone-Ibuprofen (VICOPROFEN) 7 (more content not included)...[facility]05-05-2025 History of Present illness Narrative* Elmer White MD - 01/12/2025 2:20 PM EDT Chief Complaint Patient presents with: Abdominal Pain: [...] needle aspiration biopsy of nodes, and bronchoalveolar klbouv21/2017. Type 2 diabetes (HCC) 10/26/2022 Unspecified asthma(493.90) [...] every 6hours as needed (wheezing/shortness of breath.). potassium chloride (K-TAB) 10 mEq tablet Take 1 tablet by mouth daily with breakfast. omeprazole (PRILOSEC) 40 mg capsule Take 1 capsule by mouth once daily. rizatriptan (MAXALT-SHOE DRESSER) 10 mg disintegrating tablet Take 1 tablet [...] 01/30/2025 Covid-19 Vaccine(3 - season) due on 06/16/2025 Influenza Vaccine(Season [...] FUNCTION PNL - AMYLASE - LIPASE Elmer Whiet MD documented in this encounterJoint [facility]05-01-2025 NoteHNO ID: [id number] Author: TAVON VALENCIA APRN.HOSPICE VOLUNTEER Service: ? Author Type: Nurse Practitioner Type: [...] needed for wheezin (more content not included)... [facility]05-01-2025 History of Present illness Narrative* Tavon Valencia ANA.HOSPICE VOLUNTEER - 01/08/2025 2:04 PM EDT Chief Complaint Patient presents with: 6 Month [...] needle aspiration biopsy of nodes, and bronchoalveolar qxqsya39/2017. Type 2 diabetes (HCC) 10/26/2022 Unspecified asthma(493.90) [...] every 6hours as needed (wheezing/shortness of breath.). potassium chloride (K-TAB) 10 mEq tablet Take 1 tablet by mouth daily with breakfast. omeprazole (PRILOSEC) 40 mg capsule Take 1 capsule by mouth once daily. rizatriptan (MAXALT-SHOE DRESSER) 10 mg disintegrating tablet Take 1 tablet [...] changed. Tavon Valencia APRN.MELISSA documented in this encounterJoint Township District [facility] Hospital04-30-2025 Instructions* Patient Instructions* Yoon Magana APRN.CNP - 01/07/2025 3:37 PM [...] Plan on having a sleep study done. [phone] you can call to get the sleep study scheduled. documented in this encounterJoint [facility] District [facility] Hospital04-30-2025 History of Present illness Narrative* Yoon Magana APRN.CNP - 01/07/2025 3:00 PM EDT Images from the original note were [...] cultures negative. BAL CD4/CD8 1.06, 80% alveolar macrophages,20% lymphocytes. History of worsening asthma symptoms since [...] yellow/green sinus drainage, PND. Denies significant cough unlesshe has a lot of PND. No dyspnea [...] history of colonic polyps Sarcoidosis of lung ([facility]) 04/2017 Transbronchial biopsy, transbronchial needle aspiration biopsy of nodes, and bronchoalveolar /2017. Type 2 diabetes ([facility]) 10/26/2022 Unspecified asthma(493.90) Allergies: Advair [...] 10 mg disintegrating tablet Commonly known as: MAXALT-SHOE DRESSER Take 1 tablet by mouth as needed for migraine headache (see administration instructions). May repeat in 2 hours if needed * This list has 4 medication(s) that are the same as other medications prescribed for you. Read thedirections carefully, and ask your doctor or other care provider to review them with you. DATA: I personally reviewed and analyzed all labs, radiographs and available pulmonary function testing PFT: 01/07/2025 CT Chest: 06/2024 IMPRESSION: Stable, sub-6 mm, benign-appearing pulmonary nodules. No new or enlarging pulmonary nodules. Casino Shift Manager: ELMO Transcribe Date/Time: Jun 26 2024 7:33A Dictated by : MYNOR OSORIO MD This examination was interpreted and the report reviewed and electronically signed by: MYNOR OSORIO MD on Jun 26 2024 7:43AM EST Results-Findings * * *Final Report* * * DATE OF EXAM: Jun 23 2024 3:30PM [facility] 0541 - CT CHEST WO IVCON / [...] - continued cessation - recently enrolled in [facility] F/u 3 months Portions of this documentation were copied and pasted from previous office visit notes in order to provide a cohesive continuity of the history. The note has been reviewed and edited and updated as necessary. Yoon Magana APRN.CNP I spent a total of 42 minutes on the date of the service which included preparing to see the patient, [id number] patient care, completing clinical documentation, performing a medically appropriate examination, counseling and educating the patient/family/caregiver, ordering medications, tests, or p rocedures, and communicating results to the patient/family/caregiver. documented in this encounterJoint Township District [facility] Hospital04-30-2025 NoteHNO ID: [id number] Author: YOON MAGANA APRN.CNP Service: ? Author [...] asthma symptoms since COVID infection in 2020. [facility] 09/2024 with poorly controlled Asthma symptoms in [...] history of colonic polyps Sarcoidosis of lung ([facility]) 04/2017 Transbronchial biopsy, transbronchial needle aspiration biopsy of nodes, and bronchoalveolar lavage 04/2017. Type 2 diabetes ([facility]) 10/26/2022 Unspecified asthma(493.90) Allergies: Advair [...] 60 mg daily bu (more content not included)...[facility]04-30-2025 NoteHNO ID: [id number] Author: AMOS MOORE RPFT Service: ? Author [...] Chairez DATE: January 07, 2025 TIME: 2:50 [facility]04-30-2025 Procedure note* Amos Moore RPFT - 01/07/2025 2:50 PM EDTAssociated Order(s): NITRIC OXIDE, EXHALED RESPIRATORY THERAPY ORAL EXHALED [...] DATE: January 07, 2025 TIME: 2:50 PM [facility]04-30-2025 Procedure note* Amos Moore RPFT - 01/07/2025 2:50 PM EDTAssociated Order(s): NITRIC OXIDE, EXHALED RESPIRATORY THERAPY ORAL EXHALED [...] 2025 TIME: 2:50 PM documented in this encounterJoint [facility] District [facility] Hospital02-05-2025 Telephone encounter Note * Telephone Encounter - Lisette Levy RN - 10/15/2024 3:34 PM EST The patient has been identified by name [...] was sooner than that. Pt will contact [facility] pharmacy to see if that prescription is there. Pt also asking if he needs to repeat any labwork prior to his appt on 12/17/24 with Catalina Almazan.Pt asking about his PSA if that would be due to be repeated. Requested Prescriptions Pending Prescriptions Disp Refills cyclobenzaprine (FLEXERIL) 10 mg tablet 270 tablet 0 Sig: Take 1 tablet by mouth three times a day as needed. Lisette Levy RN October 15, 2024 3:35 PM [facility]02-05-2025 Miscellaneous Notes* Telephone Encounter - Lisette Levy RN - 10/15/2024 3:34 PM EST The patient has been identified by name [...] was sooner than that. Pt will contact [facility] pharmacy to see if that prescription is there. Pt also asking if he needs to repeat any labwork prior to his appt on 12/17/24 with Catalina Almazan.Pt asking about his PSA if that would be due to be repeated. Requested Prescriptions Pending Prescriptions Disp Refills cyclobenzaprine (FLEXERIL) 10 mg tablet 270 tablet 0 Sig: Take 1 tablet by mouth three times a day as needed. Lisette Levy RN October 15, 2024 3:35 PM documented in this encounterJoint Township District [facility] Hospital01-30-2025 History of Present illness Narrative* Shayla Rogers MD - 10/09/2024 2:45 PM EST Images from the original note were not included. . [facility] Note Patient name: Jake Chairez PCP: Avni [...] AFB stains and cultures negative. BAL CD4/CD8 1.06,80% alveolar macrophages, 20% lymphocytes. Unclear to me from previous notes if he was treated withoral steroids for any period of time. PFTs have shown obstruction and Salvador has been elevated. He hasbeen seen in lung cancer screening clinic with [...] DATE OF EXAM: Jun 23 2024 3:30PM [facility] 05[facility] - CT CHEST WO IVCON / [...] history of colonic polyps Sarcoidosis of lung ([facility]) 04/2017 Transbronchial biopsy, transbronchial needle aspiration biopsy of nodes, and bronchoalveolar cpnxpe27/2017. Type 2 diabetes ([facility]) 10/26/2022 Unspecified asthma(493.90) ALLERGIES Allergen Reactions Advair [...] every 6hours as needed (wheezing/shortness of breath.). potassium chloride (K-TAB) 10 mEq tablet Take 1 tablet by mouth daily with breakfast. omeprazole (PRILOSEC) 40 mg capsule Take 1 capsule by mouth once daily. rizatriptan (MAXALT-SHOE DRESSER) 10 mg disintegrating tablet Take 1 tablet [...] lung cancer screening Shayla Rogers MD [facility] documented in this encounterJoint Township District Memorial Hospital01-30-2025 NoteHNO ID: [id number] Author: SHAYLA ROGERS MD Service: ? Author Type: Physician Type: Progress Notes Filed: 10/09/2024 16:40 Note Text: . [facility] Patient name: Jake Chairez PCP: Avni [...] DATE OF EXAM: Jun 23 2024 3:30PM [facility] 05[facility] - CT CHEST WO IVCON / [...] history of colonic polyps Sarcoidosis of lung ([facility]) 04/2017 Transbronchial biopsy, transbronchial needle aspiration biopsy of nodes, and bronchoalveolar lavage 04/2017. Type 2 diabetes ([facility]) 10/26/2022 Unspecified asthma(493.90) ALLERGIES Allergen Reactions Advair [...] mouth daily at bedtime. (more content not included)...[facility]01-27-2025 Telephone encounter Note* Telephone Encounter - Kailyn Rubio LPN - 10/06/2024 3:53 PM EST Images from the original note were not included. Electronic PA rec'd and completed for budesonide. This was approved rior authorization approved Payer: [facility] Note from payer: Your PA request for [id number] was approved for 365 days. The PA# assigned is [id number]. Approval Details Authorization number: [id number] Authorized from October 06, 2024 to October 05, 2025 Electronic appeal: Not supported View History Pharmacy Benefits Open Encounter JAKE CHAIREZ - MEDICAID ([facility]) Covered: Retail, Mail Order Unknown: Specialty, Long-Term Care BIN: [id number] : 1975 Group ID: PCN: [id number] Legal sex: M Group name: Address: [address] [address] Medication Being Authorized budesonide (PULMICORT) 0.5 mg/2 mL nebulizer solution Use 2 mL via nebulizer once daily. Dispense: 2 mL Refills: 2 Start: 10/06/2024 Class: Normal Diagnoses: Asthma, moderate persistent, well-controlled; Chronic allergic rhinitis This order has been released to its destination. To be filled at: [facility] [address] [place] [address] Pharmacy notified. [facility]01-27-2025 Miscellaneous Notes* Telephone Encounter - Kailyn Rubio LPN - 10/06/2024 3:53 PM EST Images from the original note were not included. Electronic PA rec'd and completed for budesonide. This was approved rior authorization approved Payer: [facility] Note from payer: Your PA request for [id number] was approved for 365 days. The PA# assigned is [id number]. Approval Details Authorization number: [id number] Authorized from October 06, 2024 to October 05, 2025 Electronic appeal: Not supported View History Pharmacy Benefits Open Encounter JAKE CHAIREZ - MEDICAID ([facility]) Covered: Retail, Mail Order Unknown: Specialty, Long-Term Care BIN: [id number] : 1975 Group ID: PCN: [id number] Legal sex: M Group name: Address: [place] [address] Medication Being Authorized budesonide (PULMICORT) 0.5 mg/2 mL nebulizer solution Use 2 mL via nebulizer once daily. Dispense: 2 mL Refills: 2 Start: 10/06/2024 Class: Normal Diagnoses: Asthma, moderate persistent, well-controlled; Chronic allergic rhinitis This order has been released to its destination. To be filled at: [facility] [address] [place] [address] Pharmacy notified. documented in this encounterJoint Township District [facility] Hospital01-27-2025 Instructions* Patient Instructions* Elmira Farrar APRN.CNP - 10/06/2024 1:[address] Lung [...] no harm to you at all. A specialistwill make a scientific evaluation about whether or [...] to endocrinology. Others Lung Cancer Screening hotline: [phone] Lung Cancer Screening [phone] Billing Questions: or [email or web address] Specialist Providers: (Julia So PA-C; Camila Vincent CNP; Nuria Marley CNP, Ninfa Haines CNP; Kelsey Bautista CNP; EVANGELINA Frazier; Elmira Farrar CNP; Yoon Paige CNP; Anabel Aparicio CNP; Salome Reich CNP; Chandrika Lakhani PA-C; Cha Casper PA-C; Damaris Mendez CNP; Liz Macedo CNP; Agata Griffin CNP): [phone] documented in this encounterJoint Township District [facility] Hospital01-27-2025 NoteHNO ID: [id number] Author: ELMIRA FARRAR APRN.CNP Service: ? Author [...] 50% of waking hrs. Modified Medical Research [place] Dyspnea Scale (MMRC) I am too breathless [...] 1 capsule by mouth once daily. rizatriptan (MAXALT-SHOE DRESSER) 10 mg disintegrating tablet Take 1 (more content not included)...[facility]01-27-2025 History of Present illness Narrative* Elmira Farrar APRN.[facility] - 10/06/2024 1:22 PM EST Images from the original note were not [...] for lung screening. Pt had CT imaging forlung nodules. Last CT 06/23/2024 lung nodules have [...] 50% of waking hrs. Modified Medical Research [place] Dyspnea Scale (MMRC) I am too breathless [...] needle aspiration biopsy of nodes, and bronchoalveolar cxblei46/2017. Type 2 diabetes (HCC) 10/26/2022 Unspecified asthma(493.90) [...] every 6hours as needed (wheezing/shortness of breath.). ipratropium 20 mcg-albuterol 100 mcg (COMBIVENT RESPIMAT) 20-100 mcg/actuation inhaler 1 puffs QID for asthma potassium chloride (K-TAB) 10 mEq tablet Take 1 tablet by mouth daily with breakfast. omeprazole (PRILOSEC) 40 mg capsule Take 1 capsule by mouth once daily. rizatriptan (MAXALT-SHOE DRESSER) 10 mg disintegrating tablet Take 1 tablet [...] COVID-19 original vaccine, age 12+ yr, monovalent ([employer] - PURPLE TOP) 05/02/2021 05/23/2021 tetanus diphtheria pertussis (Tdap) vaccine, age 7+ yr (ADACEL, BOOSTRIX) 05/10/2021 Colonoscopy: 04/16/2024 Mammogram: DATA REVIEW I have directly visualized the testing documented: Prior Imaging: Last CT/CTA Chest/Lungs CT CHEST WO IVCON Exam End: 06/23/2024 3:30 PM (Final result) Narrative: * * *Final Report* * * DATE OF EXAM: Jun 23 2024 3:30PM [facility] 0541 - CT CHEST WO IVCON / [...] nodules. No new or enlarging pulmonary nodules. Casino Shift Manager: ELMO Transcribe Date/Time: Jun 26 2024 7:33A [...] Testing: SPIROMETRY - BASELINE AND POST DILATOR ([id number]) - ordered on 10/13/22 No textual results for order. PHYSICAL EXAM: BP 124/78 Pulse 100 Resp 20 Wt 75.5 kg (166 lb 6.4 oz) SpO2 98% BMI 26.86 kg/m Deferred ASSESSMENT and RECOMMENDATIONS: 1. Screening for lung cancer: Six year risk for lung cancer: 0.45% Https://Travel Appeal.Spark Mobile/German/result/male_0.5_yes_unknown http://www.eTapestry/tiny/01sk4 https://youtu.be/[email or web address] I have determined that the patient is eligible for a low dose CT based on age, absence of signs or symptoms of lung cancer, and total pack years: Yes. The patient and I engaged in shared decision making, including the use of one or more decision aids, to include benefits, harms, follow-up diagnostic testing, over-diagnosis, false positive rate, andtotal radiation exposure. The patient understands and feels [...] to remaining abstinent from tobacco. Elmira Farrar APRN.MELISSA NPI #: October 06, 2024 1:28 PM documented in this encounterJoint Township District [facility] Hospital01-27-2025 Telephone encounter Note * Telephone Encounter - Shreya Coles LPN - 10/06/2024 1:20 PM EST Prescription Refill Information The patient has been [...] Coles LPN October 06, 2024 1:22 PM [facility]01-27-2025 Miscellaneous Notes* Telephone Encounter - Shreya Coles LPN - 10/06/2024 1:20 PM EST Prescription Refill Information The patient has been [...] 06, 2024 1:22 PM documented in this encounterJoint Township District Memorial Hospital12-23-2024 Telephone encounter Note * Telephone Encounter - Latonya Ritter LPN - 09/01/2024 11:17 AM EST Pt. informed via my Chart. [facility]12-23-2024 Miscellaneous Notes* Telephone Encounter - Latonya West LPN - 09/01/2024 11:17 AM EST Pt. informed via my Chart. * Telephone Encounter - Avni Salcedo DO - 09/01/2024 10:37 AM EST Please inform patient that his iron labs and LFTs are improving, just still borderline Continue same regiment without changes to supplements Avni Salcedo DO documented in this encounterJoint Township District [facility] Hospital12-23-2024 Telephone encounter Note * Telephone Encounter - Avni Salcedo DO - 09/01/2024 10:37 AM EST Please inform patient that his iron labs and LFTs are improving, just still borderline Continue same regiment without changes to supplements Avni Salcedo DO [facility]12-[facility]-2024 Telephone encounter Note* Telephone Encounter - Shayla Nye MA - 08/18/2024 11:20 AM EST Images from the original note were not included. Completed PA through covermymeds and comes back not covered. Patient was notified and aware will need to pay out pocket or get otc cream and insert rectally. Shayla Nye MA [facility]12-09-2024 Miscellaneous Notes* Telephone Encounter - Shayla Nye MA - 08/18/2024 11:20 AM EST Images from the original note were not included. Completed PA through covermymeds and comes back not covered. Patient was notified and aware will need to pay out pocket or get otc cream and insert rectally. Shayla Nye MA documented in this encounterJoint [facility]12[facility] Telephone encounter Note * Telephone Encounter - Analia Lundy RN - 08/15/2024 1:12 PM EST Patient notified labs are ordered. Medication request pending. Analia Lundy RN [facility]12-06-2024 Miscellaneous Notes* Telephone Encounter - Analia Lundy RN - 08/15/2024 1:12 PM EST Patient notified labs are ordered. Medication request pending. Analia Lundy RN * Telephone Encounter - Analia Lundy RN - 08/15/2024 12:19 PM EST Patient calls to ask if provider will [...] advise, Analia Lundy RN documented in this encounterJoint [facility]12-[facility] Telephone encounter Note * Telephone Encounter - Analia Lundy RN - 08/15/2024 12:19 PM EST Patient calls to ask if provider will [...] Please review and advise, Analia Lundy RN [facility]11-29-2024 Telephone encounter Note* Telephone Encounter - Su Ham APRN.MELISSA - 08/08/2024 10:30 AM EST Noted. Thank you, Su Ham APRN.HOSPICE VOLUNTEER [facility]11-29-2024 Miscellaneous Notes* Telephone Encounter - Su Ham APRN.CNP - 08/08/2024 10:30 AM EST Noted. Thank you, Su Ham APRN.HOSPICE VOLUNTEER * Telephone Encounter - Concepcion Rushing LPN - 08/05/2024 8:05 AM EST FYI See [employer] message. documented in this encounterJoint [facility]11-[facility]24 Telephone encounter Note * Telephone Encounter - Concepcion Rushing LPN - 08/05/2024 11:56 AM EST Prescription Refill Information The patient has been [...] Rushing LPN August 05, 2024 11:56 AM [facility]11-26-2024 Miscellaneous Notes* Telephone Encounter - Concepcion Rushing LPN - 08/05/2024 11:56 AM EST Prescription Refill Information The patient has been [...] 05, 2024 11:56 AM documented in this encounterJoint [facility]11-26-2024 Telephone encounter Note * Telephone Encounter - Concepcion Rushing LPN - 08/05/2024 8:05 AM EST IRVINGI See [employer] message. [facility]11-15-2024 Telephone encounter Note* Telephone Encounter - Concepcion Rushing LPN - 07/25/2024 1:25 PM EST Prescription Refill Information The patient has been [...] Rushing LPN July 25, 2024 1:25 PM [facility]11-15-2024 Miscellaneous Notes* Telephone Encounter - Concepcion Rushing LPN - 07/25/2024 1:25 PM EST Prescription Refill Information The patient has been [...] 25, 2024 1:25 PM documented in this encounterJoint [facility]10-24-2024 Telephone encounter Note * Telephone Encounter - Agata Deluca RN - 07/03/2024 11:48 AM EDT Pt called and is notified of providers results. Pt voices understanding. Agata Deluca RN [facility]10-24-[facility]24 Miscellaneous Notes* Telephone Encounter - Agata Deluca RN - 07/03/2024 11:48 AM EDT Pt called and is notified of providers results. Pt voices understanding. Agata Deluca RN * Telephone Encounter - Avni Salcedo DO - 07/02/2024 10:01 PM EDT Please inform patient that overall his echo is stable, no concerns Avni Salcedo DO documented in this encounterJoint [facility]10-23-2024 Telephone encounter Note * Telephone Encounter - Avni Salcedo DO - 07/02/2024 10:01 PM EDT Please inform patient that overall his echo is stable, no concerns Avni Salcedo DO [facility]10-17-2024 Telephone encounter Note* Telephone Encounter - Ana Almanza LPN - 06/26/2024 11:08 AM EDT Spoke with pt gave information provided. Pt voices understanding. [facility]10-17-2024 Miscellaneous Notes* Telephone Encounter - Ana Almanza LPN - 06/26/2024 11:08 AM EDT Spoke with pt gave information provided. Pt voices understanding. * Telephone Encounter - Avni Salcedo DO - 06/26/2024 10:17 AM EDT Please inform patient that his recent labs show that his LFTs are slightly high and potassium is slightly low. Need to avoid alcohol as well as make sure taking in <3000 mg a day of tylenol. Recheck labs in 2-3 weeks Avni Salcedo DO documented in this encounterJoint [facility]10-17-2024 Telephone encounter Note * Telephone Encounter - Avni Salcedo DO - 06/26/2024 10:17 AM EDT Please inform patient that his recent labs show that his LFTs are slightly high and potassium is slightly low. Need to avoid alcohol as well as make sure taking in <3000 mg a day of tylenol. Recheck labs in 2-3 weeks Avni Salcedo DO [facility]10-15-2024 Telephone encounter Note* Telephone Encounter - Liz Alvarenga MA - 06/24/2024 10:22 AM EDT Patient active MyChart. Patient notified via [employer] message. Liz Alvarenga MA [facility]10-15-2024 Miscellaneous Notes* Telephone Encounter - Liz Alvarenga MA - 06/24/2024 10:22 AM EDT Patient active MyChart. Patient notified via [employer] message. Liz Alvarenga MA * Telephone Encounter - Avni Salcedo DO - 06/24/2024 9:56 AM EDT Please inform patient that xray of his [...] pain Avni Salcedo DO documented in this encounterJoint [facility]10-15-2024 Telephone encounter Note * Telephone Encounter - Avni Salcedo DO - 06/24/2024 9:56 AM EDT Please inform patient that xray of his [...] joint area of pain Avni Salcedo DO [facility]10-14-2024 History of Present illness Narrative* Kelsey Mortensen RT(R) - 06/23/2024 3:20 PM EDT Radiology Service Progress Note PATIENT NAME: [...] PATIENT PRESENTS WITH AN IMPLANTABLE OR ATTACHED MANAGER TRAVEL: No RADIOLOGY DEPARTMENT: CT; Exam(s) Completed: Chest PERIPHERAL IV DATA: Not applicable SIGNED BY: RT Rico(Jeremías) June 23, 2024 3:59 PM documented in this encounterJoint [facility] District [facility]10-14-2024 NoteHNO ID: [id number] Author: KELSEY MORTENSEN RT(Jeremías) Service: ? Author Type: Flour Mixer Helper Type: Progress Notes Filed: 06/23/2024 15:59 Note [...] PATIENT PRESENTS WITH AN IMPLANTABLE OR ATTACHED MANAGER TRAVEL: No RADIOLOGY DEPARTMENT: CT; Exam(s) Completed: Chest PERIPHERAL IV DATA: Not applicable SIGNED BY: RT Rico(R) June 23, 2024 3:59 [facility]10-14-2024 NotePatient Outreach (PULMMN) JAKE CHAIREZ ([id number]) 1975 M Date Time Provider Department 06/23/24 [...] abuse [Z72.0] Order(s):[facility] [[id number]] Order #: [id number]: 1 FUTURE Prescriptions as of 06/26/2024 - [...] by RECTAL route twice daily. - rizatriptan (MAXALT-SHOE DRESSER) 10 mg disintegrating tablet Take 1 tablet [...] [L57.8] 04/19/2013 Tobacco abus (more content not included)...[facility]10-07-2024 History of Present illness Narrative* Pattie Mejia RT(R) - 06/16/2024 4:30 PM EDT Radiology Service Progress Note PATIENT NAME: [...] PATIENT PRESENTS WITH AN IMPLANTABLE OR ATTACHED MANAGER TRAVEL: No RADIOLOGY DEPARTMENT: General X-ray: Exam(s) Completed: Lower Extremity X- Ray(s): Foot, Left and Wt. Bearing Upper Extremity X-Ray(s): Hand, left PERIPHERAL IV DATA: Not applicable SIGNED BY: RT Evelio(R) June 16, 2024 4:41 PM documented in this encounterJoint [facility]10-07-2024 NoteHNO ID: [id number] Author: PATTIE MEJIA RT(Jeremías) Service: Radiology Author [...] PATIENT PRESENTS WITH AN IMPLANTABLE OR ATTACHED MANAGER TRAVEL: No RADIOLOGY DEPARTMENT: General X-ray: Exam(s) Completed: Lower Extremity X-Ray(s): Foot, Left and Wt. Bearing Upper Extremity X-Ray(s): Hand, left PERIPHERAL IV DATA: Not applicable SIGNED BY: RT Evelio(R) June 16, 2024 4:41 [facility]10-07-2024 NoteHNO ID: [id number] Author: AVNI SALCEDO, DO Service: ? Author [...] Suppository by RECTAL route twice daily. rizatriptan (MAXALT-SHOE DRESSER) 10 mg disintegrating tablet Take 1 tablet [...] and numbness in ar (more content not included)...[facility]10-07-2024 History of Present illness Narrative* Avni Salcedo DO - 06/16/2024 4:03 PM EDT CC: Jake Chairez is a 49 year [...] needle aspiration biopsy of nodes, and bronchoalveolar shwijh81/2017. Type 2 diabetes (HCC) 10/26/2022 Unspecified asthma(493.90) [...] every 6hours as needed (wheezing/shortness of breath.). ipratropium 20 [...] Suppository by RECTAL route twice daily. rizatriptan (MAXALT-SHOE DRESSER) 10 mg disintegrating tablet Take 1 tablet [...] See patient instructions. Avni Salcedo DO [address] [place] [address] documented in this encounterJoint [facility]09-27-2024 Telephone encounter Note * Telephone Encounter - Pepper Hansen LPN - 06/06/2024 3:07 PM EDT The patient has been identified by name [...] Hansen LPN June 06, 2024 3:07 PM [facility]09-27-2024 Miscellaneous Notes* Telephone Encounter - Pepper Hansen LPN - 06/06/2024 3:07 PM EDT The patient has been identified by name [...] 06, 2024 3:07 PM documented in this encounterJoint [facility]08-19-2024 Telephone encounter Note * Telephone Encounter - Latonya Ritter LPN - 04/28/2024 12:22 PM EDT Patient has been identified by [...] Please advise. Thank you. Latonya Ritter LPN. [facility]08-19-2024 Miscellaneous Notes* Telephone Encounter - Latonya West LPN - 04/28/2024 12:22 PM EDT Patient has been identified by [...] you. Latonya Ritter LPN. documented in this encounterJoint [facility] District [facility]08-16-2024 History of Present illness Narrative* Joy Shearer APRN.HOSPICE VOLUNTEER - 04/25/2024 1:00 PM EDT FOLLOW UP VISIT - ENDOSCOPY Jake Chairez 1975 [id number] REFERRING PHYSICIAN: No referring provider defined for [...] a cold snare. Resected and retrieved. Clip wasplaced. Clip orchid transplanter: Fluentify. - The entire examined colon is normal. [...] had diarrhea for 2 years and isn't concernedabout it. He is under a lot of [...] with the patient, and the patient has hadthe opportunity to ask questions and have questions [...] as needed for worsening/no improvement. Joy Shearer APRN.HOSPICE VOLUNTEER documented in this encounterJoint Township District [facility]08-16-2024 NoteHNO ID: [id number] Author: JOY SHEARER APRN.HOSPICE VOLUNTEER Service: ? Author Type: Nurse Practitioner Type: Progress Notes Filed: 04/25/2024 13:31 Note Text: FOLLOW UP VISIT - ENDOSCOPY Jake Chairez 1975 [id number] REFERRING PHYSICIAN: No referring provider defined for [...] Resected and retrieved. Clip was placed. Clip orchid transplanter: Fluentify. - The entire examined colon is normal. [...] as needed for worsening/no improvement. Joy Shearer APRN.[facility]08-07-2024 Attending History and physical note* John Chowdhury MD - 04/16/2024 10:30 AM EDT UPDATED PROCEDURAL SEDATION HISTORY AND PHYSICAL EXAMINATION SERVICE DATE: 04/16/2024 SERVICE TIME: 10:48 AM PHYSICAL EXAM MUST BE COMPLETED ON ADMISSION PROCEDURE: Procedure Indications: The History and Physical (completed in the past 30 days) has been reviewed and the patient has beenexamined. The contents accurately reflect the patient's condition [...] prior history of colon polyps. I performed colonoscopyin 2012 what was normal. He also had prior banding of internal hemorrhoids. He notes a baseline tachycardia. CBC was obtained and his hemoglobin is currently 10 I performed lower endoscopy on December 27, 2016. The patient was found to have a sessile polyp at 20 cm which was approximately 1 cm in length and return as an adenomatous polyp. There were no signs ofrecent bleeding or no other areas of suspicion. [...] needle aspiration biopsy of nodes, and bronchoalveolar qupjto85/2017. Type 2 diabetes (HCC) 10/26/2022 Unspecified asthma(493.90) [...] every 6hours as needed (wheezing/shortness of breath.). ipratropium 20 [...] Suppository by RECTAL route twice daily. rizatriptan (MAXALT-SHOE DRESSER) 10 mg disintegrating tablet Take 1 tablet [...] pain, NOTES heart disease, NOTES high blood pressure,deniescardiac stent, denies prior heart attack, denies irregular [...] are equally round, sclera are anicteric, mucous membranesare moist, oropharynx is clear. Neck has no [...] that complications can occur including failure to completethe endoscopy and perforation. The patient had the [...] shared medical record. This note will be forwardedto Avni Salcedo DO. Return to Clinic: The patient is instructed to follow-up with me after the testing has been completed. John Chowdhury MD [facility]08-07-2024 Attending History and physical note* John Chowdhury MD - 04/16/2024 10:30 AM EDT Polyp found in 2017 was at 20cm and a tubular adenoma Source Note - John Chowdhury MD - 04/16/2024 10:30 AM EDT HISTORY AND PHYSICAL Jake Gonzalez Mihaela 1975 REFERRING PHYSICIAN: Su Ham APRN.HOSPICE VOLUNTEER CHIEF COMPLAINT: Consult (Screening for colon cancer) [...] prior history of colon polyps. I performed colonoscopyin 2012 what was normal. He also had prior banding of internal hemorrhoids. He notes a baseline tachycardia. CBC was obtained and his hemoglobin is currently 10 I performed lower endoscopy on December 27, 2016. The patient was found to have a sessile polyp at 20 cm which was approximately 1 cm in length and return as an adenomatous polyp. There were no signs ofrecent bleeding or no other areas of suspicion. [...] today at the request of Su Ham APRN.HOSPICE VOLUNTEER my opinion and advice regarding need for [...] needle aspiration biopsy of nodes, and bronchoalveolar dowhny57/2017. Type 2 diabetes (HCC) 10/26/2022 Unspecified asthma(493.90) [...] every 6hours as needed (wheezing/shortness of breath.). ipratropium 20 [...] Suppository by RECTAL route twice daily. rizatriptan (MAXALT-SHOE DRESSER) 10 mg disintegrating tablet Take 1 tablet [...] entered by the nurse and reviewed by nh Nursing Notes: Jessica Rogers LPN 02/08/2024 11:38 [...] pain, NOTES heart disease, NOTES high blood pressure,deniescardiac stent, denies prior heart attack, denies irregular [...] are equally round, sclera are anicteric, mucous membranesare moist, oropharynx is clear. Neck has no [...] that complications can occur including failure to completethe endoscopy and perforation. The patient had the [...] shared medical record. This note will be forwardedto Avni Salcedo DO. Return to Clinic: The patient is instructed to follow-up with me after the testing has been completed. John Chowdhury MD [facility]08-07-2024 History and physical note* John Chowdhury MD - 04/16/2024 10:30 AM EDT HISTORY AND PHYSICAL Jake Chairez 1975 REFERRING PHYSICIAN: Su Ham APRN.HOSPICE VOLUNTEER CHIEF COMPLAINT: Consult (Screening for colon cancer) [...] prior history of colon polyps. I performed colonoscopyin 2012 what was normal. He also had prior banding of internal hemorrhoids. He notes a baseline tachycardia. CBC was obtained and his hemoglobin is currently 10 I performed lower endoscopy on December 27, 2016. The patient was found to have a sessile polyp at 20 cm which was approximately 1 cm in length and return as an adenomatous polyp. There were no signs ofrecent bleeding or no other areas of suspicion. [...] today at the request of Su Ham APRN.HOSPICE VOLUNTEER my opinion and advice regarding need for [...] needle aspiration biopsy of nodes, and bronchoalveolar ywlpvp31/2017. Type 2 diabetes (HCC) 10/26/2022 Unspecified asthma(493.90) [...] every 6hours as needed (wheezing/shortness of breath.). ipratropium 20 [...] Suppository by RECTAL route twice daily. rizatriptan (MAXALT-SHOE DRESSER) 10 mg disintegrating tablet Take 1 tablet [...] pain, NOTES heart disease, NOTES high blood pressure,deniescardiac stent, denies prior heart attack, denies irregular [...] are equally round, sclera are anicteric, mucous membranesare moist, oropharynx is clear. Neck has no [...] that complications can occur including failure to completethe endoscopy and perforation. The patient had the [...] shared medical record. This note will be forwardedto Avni Salcedo DO. Return to Clinic: The patient is instructed to follow-up with me after the testing has been completed. John Chowdhury MD [facility]08-07-2024 History and physical note* John Chowdhury MD - 04/16/2024 10:30 AM EDT UPDATED PROCEDURAL SEDATION HISTORY AND PHYSICAL EXAMINATION SERVICE DATE: 04/16/2024 SERVICE TIME: 10:48 AM PHYSICAL EXAM MUST BE COMPLETED ON ADMISSION PROCEDURE: Procedure Indications: The History and Physical (completed in the past 30 days) has been reviewed and the patient has beenexamined. The contents accurately reflect the patient's condition [...] Jake Chairez 1975 REFERRING PHYSICIAN: Su Ham APRN.HOSPICE VOLUNTEER CHIEF COMPLAINT: Consult (Screening for colon cancer) [...] prior history of colon polyps. I performed colonoscopyin 2012 what was normal. He also had prior banding of internal hemorrhoids. He notes a baseline tachycardia. CBC was obtained and his hemoglobin is currently 10 I performed lower endoscopy on December 27, 2016. The patient was found to have a sessile polyp at 20 cm which was approximately 1 cm in length and return as an adenomatous polyp. There were no signs ofrecent bleeding or no other areas of suspicion. [...] today at the request of Su Ham APRN.HOSPICE VOLUNTEER my opinion and advice regarding need for [...] needle aspiration biopsy of nodes, and bronchoalveolar amkobs31/2017. Type 2 diabetes (HCC) 10/26/2022 Unspecified asthma(493.90) [...] every 6hours as needed (wheezing/shortness of breath.). ipratropium 20 [...] Suppository by RECTAL route twice daily. rizatriptan (MAXALT-SHOE DRESSER) 10 mg disintegrating tablet Take 1 tablet [...] entered by the nurse and reviewed by nh Nursing Notes: Jessica Rogers LPN 02/08/2024 11:38 [...] pain, NOTES heart disease, NOTES high blood pressure,deniescardiac stent, denies prior heart attack, denies irregular [...] are equally round, sclera are anicteric, mucous membranesare moist, oropharynx is clear. Neck has no [...] that complications can occur including failure to completethe endoscopy and perforation. The patient had the [...] shared medical record. This note will be forwardedto Avni Salcedo DO. Return to Clinic: The patient is instructed to follow-up with me after the testing has been completed. John Chowdhury MD * John Chowdhury MD - 04/16/2024 10:30 AM EDT Polyp found in 2017 was at 20cm [...] prior history of colon polyps. I performed colonoscopyin 2012 what was normal. He also had prior banding of internal hemorrhoids. He notes a baseline tachycardia. CBC was obtained and his hemoglobin is currently 10 I performed lower endoscopy on December 27, 2016. The patient was found to have a sessile polyp at 20 cm which was approximately 1 cm in length and return as an adenomatous polyp. There were no signs ofrecent bleeding or no other areas of suspicion. [...] needle aspiration biopsy of nodes, and bronchoalveolar ryivlb96/2017. Type 2 diabetes (HCC) 10/26/2022 Unspecified asthma(493.90) [...] every 6hours as needed (wheezing/shortness of breath.). ipratropium 20 [...] Suppository by RECTAL route twice daily. rizatriptan (MAXALT-SHOE DRESSER) 10 mg disintegrating tablet Take 1 tablet [...] pain, NOTES heart disease, NOTES high blood pressure,deniescardiac stent, denies prior heart attack, denies irregular [...] are equally round, sclera are anicteric, mucous membranesare moist, oropharynx is clear. Neck has no [...] that complications can occur including failure to completethe endoscopy and perforation. The patient had the [...] shared medical record. This note will be forwardedto Avni Salcedo DO. Return to Clinic: The patient is instructed to follow-up with me after the testing has been completed. John Chowdhury MD * John Chowdhury MD - 04/16/2024 10:30 AM [...] prior history of colon polyps. I performed colonoscopyin 2012 what was normal. He also had prior banding of internal hemorrhoids. He notes a baseline tachycardia. CBC was obtained and his hemoglobin is currently 10 I performed lower endoscopy on December 27, 2016. The patient was found to have a sessile polyp at 20 cm which was approximately 1 cm in length and return as an adenomatous polyp. There were no signs ofrecent bleeding or no other areas of suspicion. [...] by me today at the request of Ham, Su, CSR TECHNICIAN.HOSPICE VOLUNTEER my opinion and advice regarding need for [...] aspiration biopsy of nodes, and bronchoalveolar /2017. Type 2 diabetes (HCC) 10/26/2022 Unspecified asthma(493.90) [...] every 6hours as needed (wheezing/shortness of breath.). ipratropium 20 [...] Suppository by RECTAL route twice daily. rizatriptan (MAXALT-SHOE DRESSER) 10 mg disintegrating tablet Take 1 tablet [...] pain, NOTES heart disease, NOTES high blood pressure,deniescardiac stent, denies prior heart attack, denies irregular [...] are equally round, sclera are anicteric, mucous membranesare moist, oropharynx is clear. Neck has no [...] that complications can occur including failure to completethe endoscopy and perforation. The patient had the [...] shared medical record. This note will be forwardedto Avni Salcedo DO. Return to Clinic: The patient is instructed to follow-up with me after the testing has been completed. John Chowdhury MD documented in this encounterJoint [facility]06[facility] Instructions* Patient Instructions* Su Ham APRN.CNP - 03/05/2024 1:21 PM EDT Prozac Zoloft Lexapro All SSRI drug class medications documented in this encounterJoint [facility]06-[facility]24 History of Present illness Narrative* Su Ham APRN.CNP - 03/05/2024 1:20 PM EDT Chief Complaint Patient presents with: BP Check [...] breath, palpitations, dizziness, leg edema, headaches, or visionchanges. Last 14 Encounter BP Readings: Date: BP: 03/05/2024 118/70 02/08/2024 124/88 01/31/2024 136/96 01/08/2023 112/80 11/01/2022 128/70 10/11/2022 134/82 09/22/2022 130/80 09/18/2022 122/72 07/10/2022 120/80 05/30/2022 126/86 05/19/2022 138/82 04/18/2022 130/74 12/12/2021 122/74 11/30/2021 124/70 Stress/anxiety/depression --- Reports significant increase in family stressors recently. Does not get along with brother which iscausing a lot of family drama. Does not feel like these stressors will resolve or settle down anytime soon. Wanting to discuss possibility of medication regimen. Pt reports being on Wellbutrin in thepast without good results. No current SSRI/SNRI therapy. [...] needle aspiration biopsy of nodes, and bronchoalveolar poapdh06/2017. Type 2 diabetes (HCC) 10/26/2022 Unspecified asthma(493.90) [...] every 6hours as needed (wheezing/shortness of breath.). ipratropium 20 [...] Suppository by RECTAL route twice daily. rizatriptan (MAXALT-SHOE DRESSER) 10 mg disintegrating tablet Take 1 tablet [...] BP Cuff Size: Regular Adult) Pulse 104 Resp14 Wt 71 kg (156 lb 9.6 oz) [...] own first. Pt will reach out via [facility] if he wants to start on one of these. RTO in 3 months, sooner if needed if starting SSRI therapy. Prescription instructions reviewed with patient as applicable. Potential red flag symptoms discussed with the patient. Reviewed appropriate action plan to take if red flag symptoms occur. Patient agreeable to treatment plan. Su Bass APRN.MELISSA [address] [place] [address] documented in this encounterJoint [facility] District [facility]06-26-2024 NoteHNO ID: [id number] Author: SU HAM APRN.CNP Service: ? Author Type: Nurse Practitioner [...] thoughts Symbicort [Budesoni* Other: See Comments Thrk[facility]berley Te (more content not included)...[facility]06-12-2024 Telephone encounter Note* Telephone Encounter - Marce Ibarra MA - 02/20/2024 10:08 AM EDT Prescription Refill Information The patient has been [...] Ibarra MA February 20, 2024 10:09 AM [facility]06-12-2024 Miscellaneous Notes* Telephone Encounter - Marce Ibarra MA - 02/20/2024 10:08 AM EDT Prescription Refill Information The patient has been [...] 20, 2024 10:09 AM documented in this encounterJoint [facility]06-[facility]-2024 NoteHNO ID: [id number] Author: JOHN CHOWDHURY MD Service: ? Author [...] today at the request of Su Ham APRN.HOSPICE VOLUNTEER my opinion and advice regarding need for [...] Suppository by RECTAL route twice daily. rizatriptan (MAXALT-SHOE DRESSER) 10 mg disintegrating tablet Take 1 tablet by mouth as needed for migraine headache (see administration instructions). May repeat in 2 hours if needed Cholecalciferol, Vitamin D3, 125 mcg (5,000 unit) cap Take 1 capsule by mouth once daily. budesonide (PULMICORT) 0.5 mg/2 mL nebulizer solu (more content not included)... [facility]06-02-2024 History of Present illness Narrative* John Chowdhury MD - 02/10/2024 8:56 AM EDT HISTORY AND PHYSICAL Jake Gonzalez Mihaela 1975 REFERRING PHYSICIAN: Su Ham APRN.MELISSA CHIEF [...] prior history of colon polyps. I performed colonoscopyin 2012 what was normal. He also had prior banding of internal hemorrhoids. He notes a baseline tachycardia. CBC was obtained and his hemoglobin is currently 10 I performed lower endoscopy on December 27, 2016. The patient was found to have a sessile polyp at 20 cm which was approximately 1 cm in length and return as an adenomatous polyp. There were no signs ofrecent bleeding or no other areas of suspicion. [...] needle aspiration biopsy of nodes, and bronchoalveolar nsjkri73/2017. Type 2 diabetes (HCC) 10/26/2022 Unspecified asthma(493.90) [...] every 6hours as needed (wheezing/shortness of breath.). ipratropium 20 [...] Suppository by RECTAL route twice daily. rizatriptan (MAXALT-SHOE DRESSER) 10 mg disintegrating tablet Take 1 tablet [...] pain, NOTES heart disease, NOTES high blood pressure,deniescardiac stent, denies prior heart attack, denies irregular [...] are equally round, sclera are anicteric, mucous membranesare moist, oropharynx is clear. Neck has no [...] that complications can occur including failure to completethe endoscopy and perforation. The patient had the [...] shared medical record. This note will be forwardedto Avni Salcedo DO. Return to Clinic: The patient is instructed to follow-up with me after the testing has been completed. John Chowdhury MD documented in this encounterJoint Township District [facility]05-31-2024 Instructions* Patient Instructions* John Chowdhury MD - 02/08/2024 11:57 AM EDT Images from the original note were not included. Bowel Preparation Instructions for: Golytely, Nulytely, Trilyte or Colyte (polyethylene glycol 3350and electrolytes) IF YOU DO NOT FOLLOW THESE [...] If you do not have a responsible compressed air pile driver operator (family member or friend) with you to take you home, your exam cannot be done with sedation and will be cancelled. Please bring a list of all of your current medications, including any Over-the Counter medications with you. Medications If you take insulin, diabetic medications or blood thinners such as Coumadin (warfarin), Plavix (clopidogrel), Ticlid (ticlopidine hydrochloride), Agrylin (anagrelide), Xarelto (Rivaroxaban), Pradaxa(Dabigatran), Eliquis (Apixaban), and Effient (Prasugrel). You MUST [...] Golytely, Nulytely, Trilyte or Colyte (polyethylene glycol 3350and electrolytes) Three (3) Days Before Your Colonoscopy [...] until midnight. 2 08/2019 documented in this encounterJoint [facility] District [facility] Hospital05-31-2024 Nurse Note* Jessica RogersAURORA - 02/08/2024 11:36 AM EDT REVIEW OF SYSTEMS: General: The patient denies fatigue, denies weight loss, denies weight gain, denies feeling hot, and denies feelings of cold. Eyes: The patient denies glaucoma, denies eye injury/surgery, wears glasses or contacts. Ear/Nose/Throat: The patient NOTES allergies, denies hayfever, denies ear infections, and denies bloody noses. Cardiovascular: The patient NOTES chest pain, NOTES heart disease, NOTES high blood pressure,deniescardiac stent, denies prior heart attack, denies irregular [...] N/A Last Colonoscopy: 2016 Jessica Rogers LPN [facility]05-31-2024 Nurse Note* Jessica Rogers LPN - 02/08/2024 11:36 AM EDT REVIEW OF SYSTEMS: General: The patient denies fatigue, denies weight loss, denies weight gain, denies feeling hot, and denies feelings of cold. Eyes: The patient denies glaucoma, denies eye injury/surgery, wears glasses or contacts. Ear/Nose/Throat: The patient NOTES allergies, denies hayfever, denies ear infections, and denies bloody noses. Cardiovascular: The patient NOTES chest pain, NOTES heart disease, NOTES high blood pressure,deniescardiac stent, denies prior heart attack, denies irregular [...] 2016 Jessica Rogers LPN documented in this encounterJoint Township District [facility] Hospital05-31-2024 Telephone encounter Note * Telephone Encounter - Betina Murphy MA - 02/08/2024 9:27 AM EDT Pt informed, verbalized understanding. Betina Murphy MA [facility]05-31-2024 Miscellaneous Notes* Telephone Encounter - Betina Murphy MA - 02/08/2024 9:27 AM EDT Pt informed, verbalized understanding. Betina Murphy MA * Telephone Encounter - Su Ham APRN.CNP - 02/08/2024 7:05 AM EDT I am ok with him continuing on his prior dosage of 60 mg daily if he takes this routinely, focuses on changes in diet, and repeats lipid panel in 3 months. If still elevated then we can increase the dosage. Thank you, Su Ham APRN.MELISSA * Telephone Encounter - Yolanda Girard RN - 02/07/2024 3:20 PM EDT Patient notified of results and [...] the medication he currently picked up. Yolanda Girard RN * Telephone Encounter - Lizbet Joe OCCA - 02/07/2024 9:49 AM EDT TC no answer. Left additional VM to return call. ANGELES Schmitz * Telephone Encounter - Ana Almanza LPN - 02/06/2024 10:58 AM EDT Left message to return call. * Telephone Encounter - Su Ham APRN.CNP - 02/06/2024 10:41 AM EDT Please call patient and let him know that lab work results overall look good. PSA is normal. HgA1c is well controlled ( and even improved from prior from 10 months ago). OK to continue withoutmetformin as is and we will just continue to monitor. However lipid panel is significantly worsening. Has he been taking his atorvastatin 60 mg daily routinely? If so, we need to increase this to 80 mg daily. Thank you, Su Ham APRN.HOSPICE VOLUNTEER documented in this encounterJoint Township District Memorial Hospital05-31-2024 Telephone encounter Note * Telephone Encounter - Su Ham APRN.MELISSA - 02/08/2024 7:05 AM EDT I am ok with him continuing on his prior dosage of 60 mg daily if he takes this routinely, focuses on changes in diet, and repeats lipid panel in 3 months. If still elevated then we can increase the dosage. Thank you, Su Ham APRN.HOSPICE VOLUNTEER [facility]05-30-2024 Telephone encounter Note* Telephone Encounter - Yolanda Girard RN - 02/07/2024 3:20 PM EDT Patient notified of results and [...] he currently picked up. Yolanda Girard, RN [facility]05-30-2024 Telephone encounter Note* Telephone Encounter - Lizbet Joe OCCA - 02/07/2024 9:49 AM EDT TC no answer. Left additional VM to return call. ANGELES Schmitz [facility]05-29-2024 Telephone encounter Note* Telephone Encounter - Ana Almanza LPN - 02/06/2024 10:58 AM EDT Left message to return call. [facility]05-29-2024 Telephone encounter Note* Telephone Encounter - Su Ham APRN.CNP - 02/06/2024 10:41 AM EDT Please call patient and let him know that lab work results overall look good. PSA is normal. HgA1c is well controlled ( and even improved from prior from 10 months ago). OK to continue withoutmetformin as is and we will just continue to monitor. However lipid panel is significantly worsening. Has he been taking his atorvastatin 60 mg daily routinely? If so, we need to increase this to 80 mg daily. Thank you, Su Ham APRN.HOSPICE VOLUNTEER [facility]05-23-2024 History of Present illness Narrative* Su Ham APRN.MELISSA - 01/31/2024 1:49 PM EDT Chief Complaint Patient presents with: follow up o meds HPI Jake Chairez is a 48 year old male who presents here today for Above Complaints. Jake is an established patient of Dr. Salcedo, and myself. Concerns today... Needing refills of [...] needle aspiration biopsy of nodes, and bronchoalveolar egjpee40/2017. Type 2 diabetes (HCC) 10/26/2022 Unspecified asthma(493.90) [...] AREA TWICE DAILY NEEDED FOR RASH/ITCHING rizatriptan (MAXALT-SHOE DRESSER) 10 mg disintegrating tablet Take 1 tablet [...] PO with breakfast and 1 tablet PO withdinner. (Patient not taking: Reported on 01/31/2024) flash [...] Patient agreeable to treatment plan. Su Bass APRN.HOSPICE VOLUNTEER [address] [place] [address] documented in this encounterJoint Township District Memorial Hospital03-14-2024 Miscellaneous Notes* Telephone Encounter - Lisette Linares LPN - 11/22/2023 1:18 PM EDT SHIVANI-01/08/23 Labs-04/03/23 NOV-none Lisette Linares LPN Pt is unemployed and no insurance. Pt is going to check with financial dept. for help. documented in this encounterJoint Township District Memorial Hospital03-14-2024 Miscellaneous Notes* Telephone Encounter - Lisette Linares LPN - 11/22/2023 1:16 PM EDT SHIVANI-01/08/23 Labs-04/03/23 NOV-none Lisette Linares LPN Pt over due for a yearly. Checking with financial to help out, Pt is unemployed and no insurance. documented in this encounterJoint Township District Memorial Hospital11-29-2023 Miscellaneous Notes* Telephone Encounter - Shayla Nye Ma - 08/08/2023 11:55 AM EST Patient last visit with PCP 01/08/23 Follow up appointment scheduled none Shayla Nye Ma documented in this encounterJoint Township District Memorial Hospital11-20-2023 Miscellaneous Notes* Telephone Encounter - Lisette Linares LPN - 07/30/2023 1:26 PM EST SHIVANI-01/08/23 Labs-04/03/23 NOV-none Lisette Linares LPN Patient comment: I have GoodRX Gold now to save money. Can this go to 180 day supply? documented in this encounterJoint Township District Memorial Hospital11-20-2023 Miscellaneous Notes* Telephone Encounter - Ana Almanza LPN - 07/30/2023 1:02 PM EST Shivani--01/08/23 Nov--nothing scheduled Last refill--01/08/23 90 with 1 refill Last labs--04/03/23 documented in this encounterJoint Township District [facility] Hospital08-25-2023 Miscellaneous Notes* Telephone Encounter - Lisette Linares LPN - 05/04/2023 12:13 PM EDT Patient phones requesting refills as follows: Requested Prescriptions Pending Prescriptions Disp Refills hydroCHLOROthiazide 12.5 mg capsule 90 capsule 1 Sig: Take 1 capsule by mouth once daily. cyclobenzaprine (FLEXERIL) 10 mg tablet 270 tablet 0 Sig: Take 1 tablet by mouth three times daily as needed. SHIVANI-02/12/23 Labs-04/03/23 NOV-none Please review and advise. Lisette Linares LPN documented in this encounterJoint Township District Memorial Hospital08-25-2023 Miscellaneous Notes* Telephone Encounter - Lisette Linares LPN - 05/04/2023 12:03 PM EDT Patient phones requesting refills as follows: Requested Prescriptions Pending Prescriptions Disp Refills hydrocortisone (HEMORRHOIDAL HC) 25 mg suppository 30 Suppository 0 Si Suppository by RECTAL route twice daily. SHIVANI-01/29/23 Labs-01/08/23 NOV-none Please review and advise. Lisette Linares LPN documented in this encounterJoint Township District Memorial Hospital08-25-2023 Miscellaneous Notes* Telephone Encounter - Lisette Linares LPN - 05/04/2023 12:00 PM EDT Patient phones requesting refills as follows: Requested Prescriptions Pending Prescriptions Disp Refills triamcinolone acetonide (KENALOG) 0.1 % cream 45 g 2 Sig: APPLY SPARINGLY TO AFFECTED AREA TWICE DAILY NEEDED FOR RASH/ITCHING SHIVANI-01/29/23 Labs-01/08/23 NOV-none Please review and advise. Lisette Linares LPN documented in this encounterJoint Township District Memorial Hospital07-31-2023 Miscellaneous Notes* Telephone Encounter - Lizbet Joe OCCA - 04/09/2023 8:01 AM EDT Patient has been identified by name and date of : Yes Patient phones for refill(s): Requested Prescriptions Pending Prescriptions Disp Refills rizatriptan (MAXALT-SHOE DRESSER) 10 mg disintegrating tablet 10 tablet 1 Sig: Take 1 tablet by mouth as needed for migraine headache (see administration instructions). May repeat in 2 hours if needed Date of last office visit in primary care: SHIVANI 01/08/23 NOV not scheduled Last 2 Encounter Wt Readings: Date: Wt: 01/08/2023 74.8 kg (165 lb) 11/01/2022 77 kg (169 lb 12.8 oz) Please advise. Thank you. ANGELES Schmitz documented in this encounterJoint Township District Memorial Hospital05-17-2023 History of Present illness Narrative* Ary Montes De Oca, RT(R) - 01/24/2023 1:40 PM EDT Radiology Service Progress Note PATIENT NAME: [...] 24, 2023 2:17 PM documented in this encounterJoint Township District Memorial Hospital05-15-2023 Miscellaneous Notes* Telephone Encounter - Pinky Pineda LPN - 01/22/2023 9:30 AM EDT Patient has been identified by name and date of : Yes, Provider Dr. Salcedo Date 01/22/23 Time9:34 am Patient phones for refill(s): Requested Prescriptions [...] you. Pinky Pineda LPN documented in this encounterJoint Township District [facility] Hospital05-12-2023 Miscellaneous Notes* Telephone Encounter - Arlyn De Leon MA - 01/19/2023 1:31 PM EDT Patient has been identified by name and date of : Yes Requested Prescriptions Pending Prescriptions Disp Refills rizatriptan (MAXALT-SHOE DRESSER) 10 mg disintegrating tablet 10 tablet 1 Sig: Take 1 tablet by mouth as needed for migraine headache (see administration instructions). May repeat in 2 hours if needed RX INSTRUCTIONS: Patient aware RX will be sent to pharmacy. No need to notify patient. Arlyn De Leon MA Shivani 01/2023 No appointment scheduled Last refill: 10/2021 documented in this encounterJoint Township District Memorial Hospital05-02-2023 History of Present illness Narrative* Avni Salcedo, - 01/09/2023 7:50 AM EDT CC: Jake Chairez is a 47 [...] needle aspiration biopsy of nodes, and bronchoalveolar uavssu82/2017. Type 2 diabetes (HCC) 10/26/2022 Unspecified asthma(493.90) [...] Accessories kit Provide nebulizer kit accessory. rizatriptan (MAXALT-SHOE DRESSER) 10 mg disintegrating tablet Take 1 tablet [...] every 6hours as needed (wheezing/shortness of breath.). metFORMIN ER (GLUCOPHAGE XR) 500 mg 24 hr tablet Take 1 tablet by mouth twice daily with meals. After 4 weeks, if tolerating well -- increase dosage to 1 tablet PO with breakfast and 1 tablet PO withdinner. lisinopril (PRINIVIL) 20 mg tablet Take 1 [...] See patient instructions. Avni Salcedo DO [address] [place] [address] documented in this encounterJoint Township District Memorial Hospital03-09-[address] Queen [facility] November 16, 2022 8:31pm Note Date/Time November 16, 2022 7:55 pm [facility] Medical Records Department [address] [place] [address] Emergency Department Summary 11/16/22 MR#: [id number] Acct: [id number] Name: JAKE CHAIREZ Rep #:[id number] : 1975 47 From: Rah Queen MD PCP: Dr. Avni Slacedo DO Status:RE G ER Location: ED HPI History of Present Illness Chief Complaint: Upper Extremity Injury Narrative Narrative: Patient presents with right arm pain in the bicep after lifting something off the ground. He has no shoulder or elbow pain or any other injury. He presents with quite a bit of pain and he thinks he felt a tear [facility] Medical History Asthma Chronic neck [...] Verified 11/16/22 19:42 [From Flonase] Social History (Reviewed 04/04/21 @ 16:05 by Karissa Mcnulty Smoking Status: Former smoker alcohol intake: never [...] your Primary Care Provider. Call [facility] ([phone]) or report to the closest Emergency Room. Call 911 if necessary. 11/16/222030 <Electronically signed by Rah Queen MD> Cosigner Signature (if applicable): CC: Dr. Avni Salcedo DO ~ Signed [facility] Work Phone: 1(903) 369-192203-03-2023 Miscellaneous Notes* Telephone Encounter - Rochelle Vega - 11/10/2022 10:35 AM EST 1st attempt left message to return call to schedule with orth * Telephone Encounter - Catalina Almazan APRN.CNP - 11/10/2022 7:44 AM EST Ortho consult placed. Please assist him to schedule. Also leaving message in Su's inbasket to review message below for her. Catalian Almazan APRN.MELISSA * Telephone Encounter - Betina Murphy - 11/08/2022 3:01 PM EST Please see pt message Betina Murphy documented in this encounterJoint Township District Memorial Hospital03-01-2023 Miscellaneous Notes* Telephone Encounter - Latonya [...] you, Su Ham APRN.MELISSA documented in this encounterJoint Township District Memorial Hospital02-24-2023 Miscellaneous Notes* Telephone Encounter - Betina [...] you, Su Ham APRN.CNP documented in this encounterJoint Township District Memorial Hospital02-22-2023 History of Present illness Narrative* Su [...] numerous months. Acute pain x 3-5 days. [place] a pop in shoulder when lifting up [...] needle aspiration biopsy of nodes, and bronchoalveolar fuvvlc88/2017. Type 2 diabetes (HCC) 10/26/2022 Unspecified asthma(493.90) [...] Accessories kit Provide nebulizer kit accessory. rizatriptan (MAXALT-SHOE DRESSER) 10 mg disintegrating tablet Take 1 tablet [...] loss - Discussed diabetic education issues of mcc diabetic complications, hypoglycemic symptoms, hyperglycemic symptoms, diet, medications- side effects and need for compliance, importance of exercise, use and side effects of insulin, importance of appointments with [employer] Director, importance of annual examinations with Opthalmology, and [...] Patient agreeable to treatment plan. Su Bass APRN.HOSPICE VOLUNTEER [address] [place] [address] documented in this encounterJoint Township District Memorial Hospital02-22-2023 History of Present illness Narrative* Claude Amanda RN - 11/01/2022 12:57 PM EST DIABETES CARE AND EDUCATION VISIT Location: [place] Type of visit: In person individual PATIENT'S [...] TIME: 1:28 PM PAGER: documented in this encounterJoint Township District Memorial Hospital02-16-2023 Miscellaneous Notes* Telephone Encounter - ERNESTINA [...] him to have a visit with the DRY MOLDER Tori Blue and the nurse nurse educator to have a discussion on this and to start him on Metformin and teach about glucometer use, as well as discuss what to do about his very high cholesterol levels as well. Avni Salcedo DO documented in this encounterJoint Township District Memorial Hospital02-08-2023 History of Present illness Narrative* Ary [...] 18, 2022 9:38 AM documented in this encounterJoint Township District Memorial Hospital02-06-2023 Miscellaneous Notes* Telephone Encounter - Lisette [...] advise. Lisette Linares LPN documented in this encounterJoint Township District Memorial Hospital02-06-2023 Miscellaneous Notes* Telephone Encounter - Latonya Ritter LPN - 10/16/2022 1:11 PM EST Pt. informed. * Telephone Encounter - Su Ham APRN.HOSPICE VOLUNTEER - 10/16/2022 9:27 AM EST Please call patient and let him know that lung volume testings shows moderate obstruction with significant bronchodilator response. The RV and RV/TLC are elevated indicating air trapping. This correlates with his asthma, COPD and sarcoidosis dx. Does patient have a knife edger he sees regularly? If not, I would recommend this. Thank you, Su Ham APRN.CNP documented in this encounterJoint Township District Memorial Hospital02-03-2023 History of Present illness Narrative* ARIELA Quispe - 10/13/2022 1:12 PM EST PULM FUNCTION SMARTBLOCK: Provider: Su Ham APRN.CNP Assisting Tech: ARIELA Quispe Spirometry w/BD: 1 LV - Box: 1 documented in this encounterJoint Township District Memorial Hospital02-01-2023 History of Present illness Narrative* Avni [...] needle aspiration biopsy of nodes, and bronchoalveolar hofabt46/2017. Unspecified asthma(493.90) PAST SURGICAL HISTORY Procedure Laterality [...] Accessories kit Provide nebulizer kit accessory. rizatriptan (MAXALT-SHOE DRESSER) 10 mg disintegrating tablet Take 1 tablet [...] See patient instructions. Avni Salcedo DO [address] [place] [address] documented in this encounterJoint Township District Memorial Hospital02-01-2023 Instructions* Patient Instructions* Avni Salcedo DO - 10/11/2022 5:33 PM EST Fasting labs are ordered to get completed when able documented in this encounterJoint Township District Memorial Hospital01-25-2023 Miscellaneous Notes* Telephone Encounter - Su Ham APRN.HOSPICE VOLUNTEER - 10/04/2022 3:18 PM EST Noted. Thank [...] assist in scheduling. Thank you, Su Ham APRN.MLEISSA documented in this encounterJoint Township District Memorial Hospital01-20-2023 History of Present illness Narrative* Kelsey [...] 29, 2022 3:16 PM documented in this encounterJoint Township District Memorial Hospital01-14-2023 Miscellaneous Notes* Telephone Encounter - Doris [...] possible radon exposure. Thank you, Su Ham APRN.MELISSA documented in this encounterJoint Township District Memorial Hospital01-13-2023 Miscellaneous Notes* Telephone Encounter - Lita So RN - 09/22/2022 3:01 PM EST [place] reports the albuterol neb solution was written for 3 ml. That's one vial. Pended for 90 ml to equal one box (30 vials in a box). Please sign and resend to Trinidad. documented in this encounterJoint Township District Memorial Hospital01-13-2023 History of Present illness Narrative* Joya [...] 22, 2022 1:48 PM documented in this encounterJoint Township District Memorial Hospital01-13-2023 History of Present illness Narrative* Su [...] patient of Dr. Salcedo, and myself. Concerns today.. Seen in urgent [...] needle aspiration biopsy of nodes, and bronchoalveolar pqiqzs44/2017. Unspecified asthma(493.90) Previous Surgical History PAST SURGICAL [...] Accessories kit Provide nebulizer kit accessory. rizatriptan (MAXALT-SHOE DRESSER) 10 mg disintegrating tablet Take 1 tablet [...] agreeable to treatment plan. Su Bass APRN.MELISSA [address] [place] [address] documented in this encounterJoint Township District Memorial Hospital01-09-2023 History of Present illness Narrative* Elmer [...] needle aspiration biopsy of nodes, and bronchoalveolar tphhin97/2017. Unspecified asthma(493.90) PAST SURGICAL HISTORY Procedure Laterality [...] Accessories kit Provide nebulizer kit accessory. rizatriptan (MAXALT-SHOE DRESSER) 10 mg disintegrating tablet Take 1 tablet [...] Sinus: Maxillary sinus tenderness present. Mouth/Throat: Lips: Gem. Mouth: Mucous membranes are moist. Pharynx: Oropharynx [...] of care. This note was generated using [employer] software. It may contain errors in wording, punctuation, or spelling. Elmer Rodriguez APRN.MELISSA documented in this encounterJoint Township District Memorial Hospital11-29-2022 Miscellaneous Notes* Telephone Encounter - Shayla Nye Ma - 08/08/2022 2:24 PM EST Patient last visit with PCP 07/10/22 Follow up appointment scheduled 10/11/22 Shayla Nye Ma documented in this encounterJoint Township District Memorial Hospital11-25-2022 History of Present illness Narrative* Carmen Giles - 08/04/2022 10:37 AM EST POPULATION HEALTH NAVIGATION OUTREACH Action/FYI [facility] Support: Called pt to schedule an appt in Pain Management. Lvm for pt to call [phone] for scheduling. Pt identified by name and : NO Outreach Outcome/Action Unable to reach patient: Left message Did you use a PCP flex slot to schedule this appointment? No Reason for Outreach Care Gap or Scheduling/Wellness visits Payer: [facility] / Plan: [place] [employer] / Product Type: PPO [...] 04, 2022 10:37 AM documented in this encounterJoint Township District Memorial Hospital11-10-2022 Miscellaneous Notes* Telephone Encounter - Concepcion [...] you. Concepcion Rushing LPN documented in this encounterJoint [facility] History of Present illness Narrative* Avni [...] needle aspiration biopsy of nodes, and bronchoalveolar hizptw63/[id number]. Unspecified asthma(493.90) PAST SURGICAL HISTORY Procedure Laterality [...] Accessories kit Provide nebulizer kit accessory. rizatriptan (MAXALT-SHOE DRESSER) 10 mg disintegrating tablet Take 1 tablet [...] plan. See patient instructions. Avni Salcedo DO [address] [place] [address] documented in this encounterJoint [facility]10[facility]22 History of Present illness Narrative* Yash [...] 30 Yash Boothe PT documented in this encounterJoint [facility]10-17-[facility] History of Present illness Narrative* Yash [...] 25 MELCHOR Mobley PT documented in this encounterJoint [facility]10-10-[facility] History of Present illness Narrative* Yash [...] glenohumeral ER with yellow t-band with elbows [id number] degrees 2x10. Mirror used for feedback to [...] 40 Yash Boothe PT documented in this encounterJoint [facility]10-03-[facility]22 History of Present illness Narrative* Yash Boothe PT - 06/12/2022 4:15 PM EDT Episode Visit Count: 4 Therapist That Will Accept/Oversee The Plan Of Care: Ysah Boothe PT Start of Care Date: 05/30/22 [...] 10 Total Treatment Time Minutes (timed/untimed): 40 MELCHOR Mobley PT documented in this encounterJoint [facility]09-29-[facility]22 Miscellaneous Notes* Telephone Encounter - ERNESTINA Cueto - 06/08/2022 2:42 PM EDT Pt picked up cd * Telephone Encounter - Kamille Benitez Pss - 06/07/2022 5:18 PM EDT Patient requesting images of 05/19/22 cerv xray and 06/01/[address]. I already printed reports and release is signed and scanned in [place]. Patient would like to pick remover by 2pm 06/08/2022. Kamille Benitez Pss documented in this encounterJoint [facility]09-28-[facility]22 History of Present illness Narrative* Yash [...] Treatment Time Minutes (timed/untimed): 39 Socorro Garrido, CLINIC NURSE Yash Boothe PT documented in this encounterJoint [facility]09-23-2022 Miscellaneous Notes* Telephone Encounter - Yolanda [...] Provider: AVNI SALCEDO DO documented in this encounterJoint [facility]09-22-2022 History of Present illness Narrative* Kelsey [...] 2022 TIME: 2:54 PM documented in this encounterJoint [facility]09-20-2022 History of Present illness Narrative* Yash Booteh PT - 05/30/2022 5:17 PM EDT Episode [...] Planned: 12 Planned Treatment Interventions: Therapeutic exercise (73672);Manual therapy (37370);Self-care homemanagement (41602);Patient/Family/Caregiver Education;Body Mechanics Training PLAN FOR NEXT VISIT: [...] for any asymmetrical weakness. Hand Strength R Network Operations Specialist Position 2 (lbs): 100 lbs L Network Operations Specialist Position 2 (lbs): 93 lbs (value varied [...] 50 Yash Boothe PT documented in this encounterJoint [facility]09-14-2022 Miscellaneous Notes* Telephone Encounter - Agata [...] draw. Avni Salcedo DO documented in this encounterJoint [facility]09-09-2022 History of Present illness Narrative* Avni [...] Accessories kit Provide nebulizer kit accessory. rizatriptan (MAXALT-SHOE DRESSER) 10 mg disintegrating tablet Take 1 tablet [...] plan. See patient instructions. Avni Salcedo DO [address] [place] [address] documented in this encounterJoint [facility]09-09-2022 History of Present illness Narrative* Joya [...] 19, 2022 11:49 AM documented in this [facility]08-11-20[facility] Miscellaneous Notes* Telephone Encounter - Lisette Linares LPN - 04/20/2022 12:30 PM EDT Patient phones requesting refills as follows: Requested Prescriptions Pending Prescriptions Disp Refills hydroCHLOROthiazide (HYDRODIURIL, ESIDRIX) 12.5 mg capsule 90 capsule 1 Sig: Take 1 capsule by mouth once daily. SHIVANI-12/12/21 Labs-06/01/21 NOV-none med filled 11/04/21 Please review and advise. Lisette Linares LPN documented in this [facility] Instructions* Patient Instructions* Tammy Llanes APRN.HOSPICE VOLUNTEER - 04/18/2022 4:35 PM EDT Continue prescribed [...] iron supplement while taking Follow up with knife edger if no improvement. * Seek medical care immediately, call 911, go to ER if you have chest pain, difficulty breathing, shortness of breath, inability to swallow. documented in this encounterJoint [facility]08-09-2022 History of Present illness Narrative* Tammy Llanes APRN.CNP - 04/18/2022 4:31 PM EDT Subjective The history is provided by the patient. No language translator was used. JAYESH Chairez is a 47 [...] needle aspiration biopsy of nodes, and bronchoalveolar [id number]/2017. Unspecified asthma(493.90) I have confirmed and edited as necessary, the [facility] Review of Systems Constitutional: Negative [...] evaluation. Tammy Llanes APRN.MELISSA documented in this encounterJoint [facility]08-09-2022 Miscellaneous Notes* Telephone Encounter - Concepcion [...] you. Concepcion Rushing LPN documented in this encounterJoint [facility]07-19-2022 Miscellaneous Notes* Telephone Encounter - Chandrika Campa LPN - 03/28/2022 8:52 AM EDT Patient phones requesting refills as follows: Pending Prescriptions Disp Refills COMBIVENT RESPIMAT 20 MCG-100 MCG/ACTUATION SOLUTION FOR INHALATION 4 g 1 Si puffs QID for asthma CHIP: No Please review and advise. Chandrika Campa LPN documented in this encounterJoint [facility]06-16-2022 Miscellaneous Notes* Telephone Encounter - Ana Almanza LPN - 02/23/2022 10:56 AM EDT shivani-- 12/12/21 Next-- None made Last refill--08/30/21 90 With 1 Last labs--06/01/21 documented in this encounterJoint [facility]05-06-2022 Miscellaneous Notes* Telephone Encounter - Catalina Almazan APRN.CNP - 01/13/2022 11:20 AM EDT The following approved medication requests have been transmitted electronically. Signed Prescriptions Disp Refills omeprazole (PRILOSEC) 40 mg capsule 90 capsule 3 Sig: Take 1 capsule by mouth once daily. CHIP: No Catalina Almazan APRN.MELISSA * Telephone Encounter - Shayla Nye Ma - 01/13/2022 8:37 AM EDT Patient last visit 12/12/21 Follow up appointment scheduled none Shayla Nye Ma documented in this encounterJoint [facility]05-06-2022 Miscellaneous Notes* Telephone Encounter - Pinky Garcia - 01/13/2022 8:39 AM EDT Patient electronically requesting refills as follows: Pending Prescriptions Disp Refills COMBIVENT RESPIMAT 20 MCG-100 MCG/ACTUATION SOLUTION FOR INHALATION 4 g 1 Si puffs QID for asthma CHIP: No Please review and advise. Pinky Garcia documented in this encounterJoint [facility]05-06-2022 Miscellaneous Notes* Telephone Encounter - Lisette Linares LPN - 01/13/2022 8:08 AM EDT Patient phones requesting refills as follows: Pending Prescriptions Disp Refills LISINOPRIL 20 MG TABLET 90 tablet 1 Sig: Take 1 tablet by mouth once daily. CHIP: No SHIVANI-4/4/22 Labs-06/01/21 NOV-none Please review and advise. Lisette Linares LPN documented in this encounterJoint [facility]05-06-2022 Miscellaneous Notes* Telephone Encounter - Lisette Linares LPN - 01/13/2022 8:05 AM EDT Patient phones requesting refills as follows: Pending Prescriptions Disp Refills ATORVASTATIN 40 MG TABLET 90 tablet 3 Sig: Take 1 tablet by mouth daily at bedtime. For cholesterol. Take with 20 mg tablet to equal 60 mg daily CHIP: No CYCLOBENZAPRINE 10 MG TABLET 270 tablet 0 Sig: Take 1 tablet by mouth three times daily as needed. CHIP: No SHIVANI-12/12/21 Labs-06/01/21 NOV-none Please review and advise. Lisette Linares LPN documented in this encounterJoint [facility]05-06-2022 Miscellaneous Notes* Telephone Encounter - Lisette Linares LPN - 01/13/2022 7:49 AM EDT Patient phones requesting refills as follows: Pending Prescriptions Disp Refills PROMETHAZINE 25 MG TABLET 90 tablet 1 Sig: Take 1 tablet by mouth every 6 hours as needed. CHIP: No SHIVANI-12/12/21 Labs-06/01/21 NOV-none Please review and advise. Lisette Linares LPN documented in this encounterJoint [facility]04-04-2022 Nurse Note* Ary Lopez Ma - 12/12/2021 1:04 PM EDT VISUAL ACUITY: Today's exam: Vision Correction? Glasses: RIGHT EYE: 20/30 LEFT EYE: 20/ 30 BOTH EYES: 20/25 HEARING EXAM: Frequency 1000Hz: Right25 dB Left 20dB 2000Hz Right15 dB Left 20dB 500Hz Right20 dB Left 25dB documented in this encounterJoint [facility] District [facility] Hospital04-04-2022 History of Present illness Narrative* M DEAN Summers-Evelyn - 12/12/2021 1:00 PM EDT 46 year [...] FEF75 (L/sec) 1.10 0.50 2.29 0.42 37 [id number] (L/sec) 3.23 1.77 5.12 1.25 38 PEF [...] Héctor 4.0 - 11.0 ug/dL 6.2 TSH, Héctor 0.50 - 6.00 uIU/mL 2.87 LH 1.0 [...] 1.00 - 4.00 k/uL 1.88 1.08 1.47 [place]% % 5.9 6.7 7.2 Abs [place] <0.87 k/uL 0.55 0.48 0.52 E[place]% % [...] needle aspiration biopsy of nodes, and bronchoalveolar [id number]/2017. Unspecified asthma(493.90) PAST SURGICAL HISTORY Procedure Laterality [...] nebulizer kit accessory. 1 Each 3 rizatriptan (MAXALT-SHOE DRESSER) 10 mg disintegrating tablet Take 1 tablet [...] B/O Lita Ludwig PA-C documented in this encounterJoint [facility]03-04-2022 History of Present illness Narrative* Pattie [...] 11, 2021 2:54 PM documented in this encounterJoint [facility]11-18-2021 History of Present illness Narrative* Joya [...] 28, 2021 6:27 PM documented in this encounterJoint [facility]01-14-2021 History of Present illness Narrative* Kalyani [...] 23, 2020 6:48 PM documented in this encounterJoint [facility]12-11-2006 History of Past illness Narrative* Problem Noted Date Resolved Date Benign neoplasm of colon 08/20/2006 007 ABDOMINAL PAIN( Right Upper Quadrant) 07/17/2006 03/05/2009 Unspecified asthma, with status asthmaticus 03/28/2007 Migraine without aura 10/22/2007 documented as of this encounter (statuses as of 12/12/2021) [facility] illness Narrative* Problem Noted Date Resolved Date Benign neoplasm of colon 08/20/2006 007 ABDOMINAL PAIN( Right Upper Quadrant) 07/17/2006 03/05/2009 Unspecified asthma, with status asthmaticus 03/28/2007 Migraine without aura 10/22/2007 documented as of this encounter (statuses as of 12/26/2021) [facility] Narrative* Problem Noted Date Resolved Date Benign neoplasm of colon 08/20/2006 007 ABDOMINAL PAIN( Right Upper Quadrant) 07/17/2006 03/05/2009 Unspecified asthma, with status asthmaticus 03/28/2007 Migraine without aura 10/22/2007 documented as of this encounter (statuses as of 01/13/2022) [facility] Narrative* Problem Noted Date Resolved Date Benign neoplasm of colon 08/20/2006 007 ABDOMINAL PAIN( Right Upper Quadrant) 07/17/2006 03/05/2009 Unspecified asthma, with status asthmaticus 03/28/2007 Migraine without aura 10/22/2007 documented as of this encounter (statuses as of 01/13/2022) [facility] Narrative* Problem Noted Date Resolved Date Benign neoplasm of colon 08/20/2006 007 ABDOMINAL PAIN( Right Upper Quadrant) 07/17/2006 03/05/2009 Unspecified asthma, with status asthmaticus 03/28/2007 Migraine without aura 10/22/2007 documented as of this encounter (statuses as of 01/13/2022) [facility] Narrative* Problem Noted Date Resolved Date Benign neoplasm of colon 08/20/2006 007 ABDOMINAL PAIN( Right Upper Quadrant) 07/17/2006 03/05/2009 Unspecified asthma, with status asthmaticus 03/28/2007 Migraine without aura 10/22/2007 documented as of this encounter (statuses as of 02/23/2022) [facility] Narrative* Problem Noted Date Resolved Date Benign neoplasm of colon 08/20/2006 007 ABDOMINAL PAIN( Right Upper Quadrant) 07/17/2006 03/05/2009 Unspecified asthma, with status asthmaticus 03/28/2007 Migraine without aura 10/22/2007 documented as of this encounter (statuses as of 03/16/2022) [facility] Narrative* Problem Noted Date Resolved Date Benign neoplasm of colon 08/20/2006 007 ABDOMINAL PAIN( Right Upper Quadrant) 07/17/2006 03/05/2009 Unspecified asthma, with status asthmaticus 03/28/2007 Migraine without aura 10/22/2007 documented as of this encounter (statuses as of 03/28/2022) [facility] Narrative* Problem Noted Date Resolved Date Benign neoplasm of colon 08/20/2006 007 ABDOMINAL PAIN( Right Upper Quadrant) 07/17/2006 03/05/2009 Unspecified asthma, with status asthmaticus 03/28/2007 Migraine without aura 10/22/2007 documented as of this encounter (statuses as of 04/18/2022) [facility] Narrative* Problem Noted Date Resolved Date Benign neoplasm of colon 08/20/2006 007 ABDOMINAL PAIN( Right Upper Quadrant) 07/17/2006 03/05/2009 Unspecified asthma, with status asthmaticus 03/28/2007 Migraine without aura 10/22/2007 documented as of this encounter (statuses as of 04/19/2022) [facility] Narrative* Problem Noted Date Resolved Date Benign neoplasm of colon 08/20/2006 007 ABDOMINAL PAIN( Right Upper Quadrant) 07/17/2006 03/05/2009 Unspecified asthma, with status asthmaticus 03/28/2007 Migraine without aura 10/22/2007 documented as of this encounter (statuses as of 04/20/2022) [facility] Narrative* Problem Noted Date Resolved Date Benign neoplasm of colon 08/20/2006 007 ABDOMINAL PAIN( Right Upper Quadrant) 07/17/2006 03/05/2009 Unspecified asthma, with status asthmaticus 03/28/2007 Migraine without aura 10/22/2007 documented as of this encounter (statuses as of 05/19/2022) [facility] Narrative* Problem Noted Date Resolved Date Benign neoplasm of colon 08/20/2006 007 ABDOMINAL PAIN( Right Upper Quadrant) 07/17/2006 03/05/2009 Unspecified asthma, with status asthmaticus 03/28/2007 Migraine without aura 10/22/2007 documented as of this encounter (statuses as of 05/24/2022) [facility] Narrative* Problem Noted Date Resolved Date Benign neoplasm of colon 08/20/2006 007 ABDOMINAL PAIN( Right Upper Quadrant) 07/17/2006 03/05/2009 Unspecified asthma, with status asthmaticus 03/28/2007 Migraine without aura 10/22/2007 documented as of this encounter (statuses as of 05/30/2022) [facility] Narrative* Problem Noted Date Resolved Date Benign neoplasm of colon 08/20/2006 007 ABDOMINAL PAIN( Right Upper Quadrant) 07/17/2006 03/05/2009 Unspecified asthma, with status asthmaticus 03/28/2007 Migraine without aura 10/22/2007 documented as of this encounter (statuses as of 06/02/2022) [facility] Narrative* Problem Noted Date Resolved Date Benign neoplasm of colon 08/20/2006 007 ABDOMINAL PAIN( Right Upper Quadrant) 07/17/2006 03/05/2009 Unspecified asthma, with status asthmaticus 03/28/2007 Migraine without aura 10/22/2007 documented as of this encounter (statuses as of 06/08/2022) [facility] Narrative* Problem Noted Date Resolved Date Benign neoplasm of colon 08/20/2006 007 ABDOMINAL PAIN( Right Upper Quadrant) 07/17/2006 03/05/2009 Unspecified asthma, with status asthmaticus 03/28/2007 Migraine without aura 10/22/2007 documented as of this encounter (statuses as of 06/13/2022) [facility] Narrative* Problem Noted Date Resolved Date Benign neoplasm of colon 08/20/2006 007 ABDOMINAL PAIN( Right Upper Quadrant) 07/17/2006 03/05/2009 Unspecified asthma, with status asthmaticus 03/28/2007 Migraine without aura 10/22/2007 documented as of this encounter (statuses as of 06/19/2022) [facility] Narrative* Problem Noted Date Resolved Date Benign neoplasm of colon 08/20/2006 007 ABDOMINAL PAIN( Right Upper Quadrant) 07/17/2006 03/05/2009 Unspecified asthma, with status asthmaticus 03/28/2007 Migraine without aura 10/22/2007 documented as of this encounter (statuses as of 06/26/2022) [facility] Narrative* Problem Noted Date Resolved Date Benign neoplasm of colon 08/20/2006 007 ABDOMINAL PAIN( Right Upper Quadrant) 07/17/2006 03/05/2009 Unspecified asthma, with status asthmaticus 03/28/2007 Migraine without aura 10/22/2007 documented as of this encounter (statuses as of 06/30/2022) [address]11-2006 History of Past illness Narrative* Problem Noted Date Resolved Date Benign neoplasm of colon 08/20/2006 007 ABDOMINAL PAIN( Right Upper Quadrant) 07/17/2006 03/05/2009 Unspecified asthma, with status asthmaticus 03/28/2007 Migraine without aura 10/22/2007 documented as of this encounter (statuses as of 07/11/2022) [place] [address]-11-2006 History of Past illness Narrative* Problem Noted Date Resolved Date Benign neoplasm of colon 08/20/2006 007 ABDOMINAL PAIN( Right Upper Quadrant) 07/17/2006 03/05/2009 Unspecified asthma, with status asthmaticus 03/28/2007 Migraine without aura 10/22/2007 documented as of this encounter (statuses as of 07/20/2022) [address]11-2006 History of Past illness Narrative* Problem Noted Date Resolved Date Benign neoplasm of colon 08/20/2006 007 ABDOMINAL PAIN( Right Upper Quadrant) 07/17/2006 03/05/2009 Unspecified asthma, with status asthmaticus 03/28/2007 Migraine without aura 10/22/2007 documented as of this encounter (statuses as of 08/04/2022) [facility] Narrative* Problem Noted Date Resolved Date Benign neoplasm of colon 08/20/2006 007 ABDOMINAL PAIN( Right Upper Quadrant) 07/17/2006 03/05/2009 Unspecified asthma, with status asthmaticus 03/28/2007 Migraine without aura 10/22/2007 documented as of this encounter (statuses as of 08/09/2022) [facility] Narrative* Problem Noted Date Resolved Date Benign neoplasm of colon 08/20/2006 007 ABDOMINAL PAIN( Right Upper Quadrant) 07/17/2006 03/05/2009 Unspecified asthma, with status asthmaticus 03/28/2007 Migraine without aura 10/22/2007 documented as of this encounter (statuses as of 09/18/2022) [facility] Narrative* Problem Noted Date Resolved Date Benign neoplasm of colon 08/20/2006 007 ABDOMINAL PAIN( Right Upper Quadrant) 07/17/2006 03/05/2009 Unspecified asthma, with status asthmaticus 03/28/2007 Migraine without aura 10/22/2007 documented as of this encounter (statuses as of 09/22/2022) [facility] Narrative* Problem Noted Date Resolved Date Benign neoplasm of colon 08/20/2006 007 ABDOMINAL PAIN( Right Upper Quadrant) 07/17/2006 03/05/2009 Unspecified asthma, with status asthmaticus 03/28/2007 Migraine without aura 10/22/2007 documented as of this encounter (statuses as of 09/22/2022) [facility] Narrative* Problem Noted Date Resolved Date Benign neoplasm of colon 08/20/2006 007 ABDOMINAL PAIN( Right Upper Quadrant) 07/17/2006 03/05/2009 Unspecified asthma, with status asthmaticus 03/28/2007 Migraine without aura 10/22/2007 documented as of this encounter (statuses as of 09/29/2022) [facility] Narrative* Problem Noted Date Resolved Date Benign neoplasm of colon 08/20/2006 007 ABDOMINAL PAIN( Right Upper Quadrant) 07/17/2006 03/05/2009 Unspecified asthma, with status asthmaticus 03/28/2007 Migraine without aura 10/22/2007 documented as of this encounter (statuses as of 10/04/2022) [facility] Narrative* Problem Noted Date Resolved Date Benign neoplasm of colon 08/20/2006 007 ABDOMINAL PAIN( Right Upper Quadrant) 07/17/2006 03/05/2009 Unspecified asthma, with status asthmaticus 03/28/2007 Migraine without aura 10/22/2007 documented as of this encounter (statuses as of 10/12/2022) [facility] Narrative* Problem Noted Date Resolved Date Benign neoplasm of colon 08/20/2006 007 ABDOMINAL PAIN( Right Upper Quadrant) 07/17/2006 03/05/2009 Unspecified asthma, with status asthmaticus 03/28/2007 Migraine without aura 10/22/2007 documented as of this encounter (statuses as of 10/13/2022) [address]2006 History of Past illness Narrative* Problem Noted Date Resolved Date Benign neoplasm of colon 08/20/2006 007 ABDOMINAL PAIN( Right Upper Quadrant) 07/17/2006 03/05/2009 Unspecified asthma, with status asthmaticus 03/28/2007 Migraine without aura 10/22/2007 documented as of this encounter (statuses as of 10/16/2022) [facility] Narrative* Problem Noted Date Resolved Date Benign neoplasm of colon 08/20/2006 007 ABDOMINAL PAIN( Right Upper Quadrant) 07/17/2006 03/05/2009 Unspecified asthma, with status asthmaticus 03/28/2007 Migraine without aura 10/22/2007 documented as of this encounter (statuses as of 10/16/2022) [facility] Narrative* Problem Noted Date Resolved Date Benign neoplasm of colon 08/20/2006 007 ABDOMINAL PAIN( Right Upper Quadrant) 07/17/2006 03/05/2009 Unspecified asthma, with status asthmaticus 03/28/2007 Migraine without aura 10/22/2007 documented as of this encounter (statuses as of 10/26/2022) [facility] Narrative* Problem Noted Date Resolved Date Benign neoplasm of colon 08/20/2006 007 ABDOMINAL PAIN( Right Upper Quadrant) 07/17/2006 03/05/2009 Unspecified asthma, with status asthmaticus 03/28/2007 Migraine without aura 10/22/2007 documented as of this encounter (statuses as of 11/01/2022) [facility] Narrative* Problem Noted Date Resolved Date Benign neoplasm of colon 08/20/2006 007 ABDOMINAL PAIN( Right Upper Quadrant) 07/17/2006 03/05/2009 Unspecified asthma, with status asthmaticus 03/28/2007 Migraine without aura 10/22/2007 documented as of this encounter (statuses as of 11/02/2022) [facility] Narrative* Problem Noted Date Resolved Date Benign neoplasm of colon 08/20/2006 007 ABDOMINAL PAIN( Right Upper Quadrant) 07/17/2006 03/05/2009 Unspecified asthma, with status asthmaticus 03/28/2007 Migraine without aura 10/22/2007 documented as of this encounter (statuses as of 11/03/2022) [address]2006 History of Past illness Narrative* Problem Noted Date Resolved Date Benign neoplasm of colon 08/20/2006 007 ABDOMINAL PAIN( Right Upper Quadrant) 07/17/2006 03/05/2009 Unspecified asthma, with status asthmaticus 03/28/2007 Migraine without aura 10/22/2007 documented as of this encounter (statuses as of 11/03/2022) [facility] Narrative* Problem Noted Date Resolved Date Benign neoplasm of colon 08/20/2006 007 ABDOMINAL PAIN( Right Upper Quadrant) 07/17/2006 03/05/2009 Unspecified asthma, with status asthmaticus 03/28/2007 Migraine without aura 10/22/2007 documented as of this encounter (statuses as of 11/09/2022) [facility]12-11-2006 History of Past illness Narrative* Problem Noted Date Resolved Date Benign neoplasm of colon 08/20/2006 007 ABDOMINAL PAIN( Right Upper Quadrant) 07/17/2006 03/05/2009 Unspecified asthma, with status asthmaticus 03/28/2007 Migraine without aura 10/22/2007 documented as of this encounter (statuses as of 11/10/2022) [facility]12-11-2006 History of Past illness Narrative* Problem Noted Date Resolved Date Benign neoplasm of colon 08/20/2006 007 ABDOMINAL PAIN( Right Upper Quadrant) 07/17/2006 03/05/2009 Unspecified asthma, with status asthmaticus 03/28/2007 Migraine without aura 10/22/2007 documented as of this encounter (statuses as of 01/15/2023) [facility]12-11-2006 History of Past illness Narrative* Problem Noted Date Resolved Date Benign neoplasm of colon 08/20/2006 007 ABDOMINAL PAIN( Right Upper Quadrant) 07/17/2006 03/05/2009 Unspecified asthma, with status asthmaticus 03/28/2007 Migraine without aura 10/22/2007 documented as of this encounter (statuses as of 01/19/2023) [address]11-2006 History of Past illness Narrative* Problem Noted Date Resolved Date Benign neoplasm of colon 08/20/2006 007 ABDOMINAL PAIN( Right Upper Quadrant) 07/17/2006 03/05/2009 Unspecified asthma, with status asthmaticus 03/28/2007 Migraine without aura 10/22/2007 documented as of this encounter (statuses as of 01/22/2023) [facility]12-11-2006 History of Past illness Narrative* Problem Noted Date Diagnosed Date Resolved Date Benign neoplasm of colon 08/20/2006 ABDOMINAL PAIN( Right Upper Quadrant) 07/17/2006 03/05/2009 Unspecified asthma, with status asthmaticus 03/28/2007 Migraine without aura 2007 documented as of this encounter (statuses as of 04/09/2023) [address]11-2006 History of Past illness Narrative* Problem Noted Date Diagnosed Date Resolved Date Benign neoplasm of colon 08/20/2006 ABDOMINAL PAIN( Right Upper Quadrant) 07/17/2006 03/05/2009 Unspecified asthma, with status asthmaticus 03/28/2007 Migraine without aura 2007 documented as of this encounter (statuses as of 05/04/2023) [facility]12[facility]2006 History of Past illness Narrative* Problem Noted Date Diagnosed Date Resolved Date Benign neoplasm of colon 08/20/2006 ABDOMINAL PAIN( Right Upper Quadrant) 07/17/2006 03/05/2009 Unspecified asthma, with status asthmaticus 03/28/2007 Migraine without aura 2007 documented as of this encounter (statuses as of 05/04/2023) [facility]12[facility]-2006 History of Past illness Narrative* Problem Noted Date Diagnosed Date Resolved Date Benign neoplasm of colon 08/20/2006 ABDOMINAL PAIN( Right Upper Quadrant) 07/17/2006 03/05/2009 Unspecified asthma, with status asthmaticus 03/28/2007 Migraine without aura 2007 documented as of this encounter (statuses as of 05/04/2023) [facility]2006 History of Past illness Narrative* Problem Noted Date Diagnosed Date Resolved Date Benign neoplasm of colon 08/20/2006 ABDOMINAL PAIN( Right Upper Quadrant) 07/17/2006 03/05/2009 Unspecified asthma, with status asthmaticus 03/28/2007 Migraine without aura 2007 documented as of this encounter (statuses as of 07/15/2023) [facility]12[facility]-2006 History of Past illness Narrative* Problem Noted Date Diagnosed Date Resolved Date Benign neoplasm of colon 08/20/2006 ABDOMINAL PAIN( Right Upper Quadrant) 07/17/2006 03/05/2009 Unspecified asthma, with status asthmaticus 03/28/2007 Migraine without aura 2007 documented as of this encounter (statuses as of 07/15/2023) [facility] History of Past illness Narrative* Problem Noted Date Diagnosed Date Resolved Date Benign neoplasm of colon 08/20/2006 ABDOMINAL PAIN( Right Upper Quadrant) 07/17/2006 03/05/2009 Unspecified asthma, with status asthmaticus 03/28/2007 Migraine without aura 2007 documented as of this encounter (statuses as of 07/15/2023) [facility] History of Past illness Narrative* Problem Noted Date Diagnosed Date Resolved Date Benign neoplasm of colon 08/20/2006 ABDOMINAL PAIN( Right Upper Quadrant) 07/17/2006 03/05/2009 Unspecified asthma, with status asthmaticus 03/28/2007 Migraine without aura 2007 documented as of this encounter (statuses as of 07/31/2023) [facility]2006 History of Past illness Narrative* Problem Noted Date Diagnosed Date Resolved Date Benign neoplasm of colon 08/20/2006 ABDOMINAL PAIN( Right Upper Quadrant) 07/17/2006 03/05/2009 Unspecified asthma, with status asthmaticus 03/28/2007 Migraine without aura 2007 documented as of this encounter (statuses as of 07/31/2023) [facility]2006 History of Past illness Narrative* Problem Noted Date Diagnosed Date Resolved Date Benign neoplasm of colon 08/20/2006 ABDOMINAL PAIN( Right Upper Quadrant) 07/17/2006 03/05/2009 Unspecified asthma, with status asthmaticus 03/28/2007 Migraine without aura 2007 documented as of this encounter (statuses as of 08/08/2023) [place] [id number] History of Past illness Narrative* Problem Noted Date Diagnosed Date Resolved Date Benign neoplasm of colon 08/20/2006 ABDOMINAL PAIN( Right Upper Quadrant) 07/17/2006 03/05/2009 Unspecified asthma, with status asthmaticus 03/28/2007 Migraine without aura 2007 documented as of this encounter (statuses as of 08/09/2023) [address]11-2006 History of Past illness Narrative* Problem Noted Date Diagnosed Date Resolved Date Benign neoplasm of colon 08/20/2006 ABDOMINAL PAIN( Right Upper Quadrant) 07/17/2006 03/05/2009 Unspecified asthma, with status asthmaticus 03/28/2007 Migraine without aura 2007 documented as of this encounter (statuses as of 11/22/2023) [address]11-2006 History of Past illness Narrative* Problem Noted Date Diagnosed Date Resolved Date Benign neoplasm of colon 08/20/2006 ABDOMINAL PAIN( Right Upper Quadrant) 07/17/2006 03/05/2009 Unspecified asthma, with status asthmaticus 03/28/2007 Migraine without aura 2007 documented as of this encounter (statuses as of 11/22/2023) [facility] Diagnosis Encounter for examination required by Department of Transportation (DOT)- [facility] Diagnosis Moderate persistent asthma with exacerbation- Primary Unspecified asthma, with exacerbation [facility]* Diagnosis Migraine without aura and without status migrainosus, not intractable Migraine without aura, without mention of intractable migraine without mention of status migrainosus [facility]* Diagnosis Pure hypercholesterolemia Displacement of lumbar intervertebral disc without myelopathy [facility] Diagnosis BENIGN HYPERTENSION Essential hypertension, benign [facility]* Diagnosis Gastroesophageal reflux disease without esophagitis Esophageal reflux [facility]* Diagnosis Hypokalemia Hypopotassemia [facility]* Diagnosis Moderate persistent asthma with exacerbation Unspecified asthma, with exacerbation [facility]* Diagnosis Sinobronchitis- Primary Unspecified sinusitis (chronic) Mild intermittent asthma with acute exacerbation Unspecified asthma, with exacerbation Wheezing [facility] Diagnosis Migraine without aura and without status migrainosus, not intractable Migraine without aura, without mention of intractable migraine without mention of status migrainosus Displacement of lumbar intervertebral disc without myelopathy [facility] Diagnosis BENIGN HYPERTENSION Essential hypertension, benign [facility] Diagnosis Localized swelling, mass and lump, neck- Primary Swelling, mass, or lump in head and neck Neck pain without injury Localized enlarged lymph nodes Enlargement of lymph nodes [facility] Diagnosis Elevated alanine aminotransferase (ALT) level- Primary Nonspecific elevation of levels of transaminase or lactic acid dehydrogenase (LDH) Neck pain without injury [facility] Diagnosis Neck pain without injury Neck pain Cervicalgia [facility] Diagnosis Localized swelling, mass and lump, neck Swelling, mass, or lump in head and neck Neck pain without injury Localized enlarged lymph nodes Enlargement of lymph nodes [facility] Diagnosis Acute non-recurrent maxillary sinusitis- Primary Acute pain of left knee Infected abrasion of left knee, initial encounter [facility] Diagnosis Neck pain- Primary Cervicalgia [facility] Diagnosis Neck pain- Primary Cervicalgia [facility] Diagnosis Neck pain- Primary Cervicalgia [facility] Diagnosis Neck pain- Primary Cervicalgia [facility] Diagnosis Neck pain- Primary Cervicalgia [facility] Diagnosis Chronic neck pain- Primary Cervicalgia Cervical radiculopathy Brachial neuritis or radiculitis nos Cervical disc disorder at C4-C5 level with radiculopathy Attention deficit Attention or concentration deficit [facility] Diagnosis BENIGN HYPERTENSION Essential hypertension, benign [facility] Diagnosis Hypokalemia Hypopotassemia [facility] Diagnosis Sinobronchitis- Primary Unspecified sinusitis (chronic) [facility] Diagnosis Bronchitis- Primary Bronchitis, not specified as acute or chronic Asthma, moderate persistent, well-controlled Unspecified asthma Chronic allergic rhinitis Allergic rhinitis, cause unspecified Wheezing Exposure to radon, initial encounter [facility] Diagnosis Bronchitis Bronchitis, not specified as acute or chronic [facility] Diagnosis Bronchitis- Primary Bronchitis, not specified as acute or chronic Asthma, moderate persistent, well-controlled Unspecified asthma Sarcoidosis of lung (HCC) Sarcoidosis [facility]* Diagnosis Dyslipidemia- Primary Other and unspecified hyperlipidemia Vitamin D deficiency Unspecified vitamin D deficiency IFG (impaired fasting glucose) Impaired fasting glucose LVH (left ventricular hypertrophy) Cardiomegaly Asthma, moderate persistent, well-controlled Unspecified asthma Exposure to radon, initial encounter Wheezing [facility] Diagnosis Bronchitis Bronchitis, not specified as acute or chronic Asthma, moderate persistent, well-controlled Unspecified asthma Sarcoidosis of lung (HCC) Sarcoidosis [facility] Diagnosis Bronchitis Bronchitis, not specified as acute or chronic Asthma, moderate persistent, well-controlled Unspecified asthma Sarcoidosis of lung (HCC) Sarcoidosis [facility] Diagnosis BENIGN HYPERTENSION Essential hypertension, benign Displacement of lumbar intervertebral disc without myelopathy [facility] Diagnosis IFG (impaired fasting glucose)- Primary Impaired fasting glucose [facility]* Diagnosis New onset type 2 diabetes mellitus (HCC)- Primary Hyperlipidemia, mixed Mixed hyperlipidemia Acute pain of right shoulder [facility] Diagnosis Acute pain of right shoulder- Primary [facility]* Diagnosis Onset Date Resolution Status Degenerative disc disease, cervical acute [facility] Work Phone: Evaluation note* Diagnosis Dyslipidemia- Primary [...] neck pain Cervicalgia [facility]* Diagnosis Migraine without aura and without status migrainosus, not intractable Migraine without aura, without mention of intractable migraine without mention of status migrainosus [facility]* Diagnosis Displacement of lumbar intervertebral disc without myelopathy [facility] Diagnosis Migraine without aura and without status migrainosus, not intractable Migraine without aura, without mention of intractable migraine without mention of status migrainosus [facility]* Diagnosis BENIGN HYPERTENSION Essential hypertension, benign Displacement of lumbar intervertebral disc without myelopathy [facility]* Diagnosis External hemorrhoid External hemorrhoids without mention of complication Hyperlipidemia, mixed Mixed hyperlipidemia [facility]* Diagnosis Wheezing Bronchitis Bronchitis, not specified as acute or chronic [facility]* Diagnosis Gastroesophageal reflux disease without esophagitis Esophageal reflux [facility]* Diagnosis BENIGN HYPERTENSION Essential hypertension, benign [facility]* Diagnosis Chronic allergic rhinitis Allergic rhinitis, cause unspecified [facility]* Diagnosis Hypokalemia Hypopotassemia [facility]* Diagnosis Displacement of lumbar intervertebral disc without myelopathy Hypokalemia Hypopotassemia Chronic allergic rhinitis Allergic rhinitis, cause unspecified [facility]* Diagnosis BENIGN HYPERTENSION Essential hypertension, benign [facility]* Diagnosis Displacement of lumbar intervertebral disc without myelopathy [facility]* Diagnosis BENIGN HYPERTENSION- Primary Essential [...] neoplasm of prostate [facility]* Diagnosis Hyperlipidemia, mixed- Primary Mixed hyperlipidemia [facility] Diagnosis Gastroesophageal reflux disease, unspecified whether esophagitis present- Primary Screening for colon cancer Special screening for malignant neoplasms, colon Hyperlipidemia, mixed Mixed hyperlipidemia Irritable bowel syndrome with constipation Irritable bowel syndrome Diarrhea, unspecified type Personal history of colonic polyps [facility]* Diagnosis Displacement of lumbar intervertebral disc without myelopathy [facility]* Diagnosis Essential hypertension, benign- Primary Anxiety with depression [facility] Diagnosis Diarrhea, unspecified type- Primary Screening for colon cancer Special screening for malignant neoplasms, colon Hyperlipidemia, mixed Mixed hyperlipidemia Gastroesophageal reflux disease, unspecified whether esophagitis present Irritable bowel syndrome with constipation Irritable bowel syndrome Personal history of colonic polyps [facility]* Diagnosis Gastroesophageal reflux disease with esophagitis without hemorrhage- Primary Diarrhea, unspecified type [facility]* Diagnosis Asthma, moderate persistent, well-controlled Unspecified asthma Chronic allergic rhinitis Allergic rhinitis, cause unspecified Bronchitis Bronchitis, not specified as acute or chronic [facility] Diagnosis Acute pain of right shoulder [facility] Diagnosis Neck pain without injury [facility] Diagnosis Acute pain of left knee [facility] Diagnosis Cough [facility] Diagnosis Pain of left thumb Pain in limb Foot pain, left Pain in limb [facility] Diagnosis Pain of left [...] Other B-complex deficiencies [facility] Diagnosis Pulmonary nodule Solitary pulmonary nodule [facility] Diagnosis Tobacco abuse Tobacco use disorder [facility] Diagnosis Elevated LFTs- Primary Other abnormal blood chemistry Hypokalemia Hypopotassemia [facility]* Diagnosis Essential hypertension, benign [facility]* Diagnosis Chronic allergic rhinitis Allergic rhinitis, cause unspecified [facility]* Diagnosis External hemorrhoid External hemorrhoids without mention of complication Migraine without aura and without status migrainosus, not intractable Migraine without aura, without mention of intractable migraine without mention of status migrainosus [facility]* Diagnosis Asthma, moderate persistent, well-controlled Unspecified asthma Chronic allergic rhinitis Allergic rhinitis, cause unspecified Mild persistent asthma without complication Unspecified asthma Bronchitis Bronchitis, not specified as acute or chronic documented [facility]* Diagnosis Encounter for screening for lung cancer- Primary Tobacco abuse Tobacco use disorder documented in this encounter [facility] note* Diagnosis Asthma, moderate persistent, poorly-controlled- Primary Unspecified asthma H/O sarcoidosis Personal history of other endocrine, metabolic, and immunity disorders Former cigarette smoker Personal history of tobacco use, presenting hazards to health [facility]* Diagnosis Displacement of lumbar intervertebral disc without myelopathy [facility]* Diagnosis Asthma, moderate persistent, poorly-controlled (HCC) Unspecified asthma documented in this encounter [facility] note* Diagnosis Asthma, moderate persistent, poorly-controlled (HCC) Unspecified asthma [facility]* Diagnosis Asthma, moderate persistent, poorly-controlled (HCC)- Primary Unspecified asthma Acute non-recurrent maxillary sinusitis Chronic allergic rhinitis Allergic rhinitis, cause unspecified Daytime sleepiness Former cigarette smoker Personal history of tobacco use, presenting hazards to health [facility]* Diagnosis IFG (impaired fasting [...] (HCC) Unspecified asthma [facility]* Diagnosis Rib pain on left side- Primary Chest pain, unspecified Left sided abdominal pain Abdominal pain, unspecified site Rib pain on left side Chest pain, unspecified [facility] Diagnosis Rib pain on left side Chest pain, unspecified [facility] Diagnosis Splenomegaly, not elsewhere classified- Primary Left sided abdominal pain Abdominal pain, unspecified site documented in this encounter [facility] note* Diagnosis Procedure not carried out- Primary Procedure not carried out for other reasons documented in this encounter [facility] noteNo assessment information availableWCity [facility] Work Phone: Reason for referral (narrative)* Diagnostic Procedure Only (Routine) - Closed Specialty Diagnoses / Procedures Referred By Contac t Referred To Contact XR IMAGING Diagnoses Neck pain without injury Procedures XR CERV OTHER 4V AP/LAT/OBL RADEX SPINE CERVICAL 4 OR 5 VIEWS Avni Salcedo DO [address] [place] [address] Xr Imaging Referral ID Status Reason Start Date Expiration Date V isits Requested Visits Authorized [id number] Closed Auto-Generate d Referral 05/19/2022 09/09/2022 1 1 * MRI/CT (Routine) - Pending Review Specialty Diagnoses / Procedures Referred By Contac t Referred To Contact CT IMAGING Diagnoses Localized swelling, mass and lump, neck Neck pain without injury Localized enlarged lymph nodes Procedures CT NECK SOFT TISSUE W IVCON CT SOFT TISSUE NECK W/CONTRAST MATERIAL Avni Salcedo DO [address] [place] [address] Ct Imaging Referral ID Status Reason Start Date Expiration Date Visits Requested Visits Authorized [id number] Pending Review Auto-Generat ed Referral 05/19/2022 06/18/2023 1 1 [facility] for referral (narrative)* Outpatient Procedure (Routine) - Authorized Specialty Diagnoses / Procedures Referred By Contac t Referred To Contact [facility] Diagnoses Bronchitis Asthma, moderate persistent, well-controlled Sarcoidosis of lung (HCC) Procedures SPIROMETRY - BASELINE AND POST DILATOR BRNCDILAT RSPSE SPMTRY PRE&POST-BRNCDILAT N Su Ham, CSR TECHNICIAN.HOSPICE VOLUNTEER [address] [place] [address] [facility] [address] [place] [address] Referral ID Status Reason Start Date Expiration Date Visits Requested Visits Authorized [id number] Authorized Auto-Generat ed Referral 10/02/2022 11/01/2023 1 1 * Outpatient Procedure (Routine) - Pending Review Specialty Diagnoses / Procedures Referred By Contac t Referred To Contact [facility] Diagnoses Bronchitis Asthma, moderate persistent, well-controlled Sarcoidosis of lung (HCC) Procedures LUNG VOLUMES Su Ham APRN.HOSPICE VOLUNTEER [address] [place] [address] [facility] [address] [place], [place] [id number] Referral ID Status Reason Start Date Expiration Date Visits Requested Visits Authorized [id number] Pending Review Auto-Generat ed Referral 10/02/2022 11/01/2023 1 1 [facility] for referral (narrative)* Outpatient Procedure (Routine) - Authorized Specialty Diagnoses / Procedures Referred By Contac t Referred To Contact [facility] Diagnoses LVH (left ventricular hypertrophy) Procedures ECHO ECHO TTHRC R-T 2D W/WOM-MODE COMPL SPEC&COLR D Avni Salcedo DO [address] [place] [address] [facility] [place] [phone] Referral ID Status Reason Start Date Expiration Date Visits Requested Visits Authorized [id number] Authorized Auto-Generat ed Referral 10/11/2022 10/11/2023 1 1 [facility] for referral (narrative)* Diagnostic Procedure Only (Routine) - Closed Specialty Diagnoses / Procedures Referred By Contac t Referred To Contact XR IMAGING Diagnoses Acute pain of right shoulder Procedures XR SHOULDER GENERAL 3V OR MORE AP/TRUE AP/OTHER RIGHT RADEX SHOULDER COMPLETE MINIMUM 2 VIEWS Su Ham APRN.HOSPICE VOLUNTEER [address] [place] [address] X[facility] Imaging Referral ID Status Reason Start Date Expiration Date V isits Requested Visits Authorized [id number] Closed Auto-Generate d Referral 11/01/2022 12/01/2023 1 1 [facility] for referral (narrative)* Diagnostic Procedure Only (Routine) - Closed Specialty Diagnoses / Procedures Referred By Ange sheets Referred To Contact [facility] Diagnoses Screening for colon cancer Hyperlipidemia, mixed Gastroesophageal reflux disease, unspecified whether esophagitis present Irritable bowel syndrome with constipation Diarrhea, unspecified type Personal history of colonic polyps Procedures EGD DIAGNOSTIC ESOPHAGOGASTRODUODENOSC OPY TRANSORAL DIAGNOSTIC John Chowdhury MD [address] [phone] [place] [phone] Referral ID Status Reason Start Date Expiration Date V isits Requested Visits Authorized [id number] Closed Auto-Generated Referral Patient Cleared - INN [...] WHEN PFRMD John Chowdhury MD [address] [address] Referral ID Status Reason Start Date Expiration Date V isits Requested Visits Authorized [id number] Closed Auto-Generated Referral Patient Cleared - Qualified 100% FAS 04/16/2024 09/09/2024 1 1 [facility] for referral (narrative)* Diagnostic Procedure Only (Routine) - Closed Specialty Diagnoses / Procedures Referred By Contac t Referred To Contact XR IMAGING Diagnoses Acute pain of right shoulder Procedures XR SHOULDER GENERAL 3V OR MORE AP/TRUE AP/OTHER RIGHT RADEX SHOULDER COMPLETE MINIMUM 2 VIEWS Su Ham APRN.HOSPICE VOLUNTEER [address] [place] [address] [place] [address] Referral ID Status Reason Start Date Expiration Date V isits Requested Visits Authorized [id number] Closed Auto-Generate d Referral 11/01/2022 12/01/2023 1 1 [facility] for referral (narrative)* Diagnostic Procedure Only (Routine) - Closed Specialty Diagnoses / Procedures Referred By Contac t Referred To Contact XR IMAGING Diagnoses Neck pain without injury Procedures XR CERV OTHER 4V AP/LAT/OBL RADEX SPINE CERVICAL 4 OR 5 VIEWS Avni Salcedo DO [address] [place] [address] [place] [address] Referral ID Status Reason Start Date Expiration Date V isits Requested Visits Authorized [id number] Closed Auto-Generate d Referral 05/19/2022 09/09/2022 1 1 [facility] for referral (narrative)* Diagnostic Procedure Only (Routine) - Closed Specialty Diagnoses / Procedures Referred By Contac t Referred To Contact XR IMAGING Diagnoses Acute pain of left knee Infected abrasion of left knee, initial encounter Procedures XR KNEE GENERAL 4V AP BOTH/PA BOTH/LAT/MERC LEFT RADIOLOGIC EXAM KNEE COMPLETE 4/MORE VIEWS Su Ham APRN.HOSPICE VOLUNTEER [address] [place] [address] [place] [address] Referral ID Status Reason Start Date Expiration Date V isits Requested Visits Authorized [id number] Closed Auto-Generate d Referral 11/11/2021 12/11/2022 1 1 [facility] for referral (narrative)* Outpatient Procedure (Routine) - Pending Review Specialty Diagnoses / Procedures Referred By Contac t Referred To Contact [facility] Diagnoses LVH (left ventricular hypertrophy) 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 Procedures ECHO ECHO TTHRC R-T 2D W/WOM-MODE COMPL SPEC&COLR D Avni Salcedo DO [address] [place] [address] [facility] [address] [place] [address] Referral ID Status Reason Start Date Expiration Date Visits Requested Visits Authorized [id number] Pending Review Auto-Generat ed Referral 06/16/2024 06/16/2025 1 1 * MRI/CT (Routine) - Open Specialty Diagnoses / Procedures [facility] CT [facility] Diagnoses Pulmonary nodule Procedures CT CHEST WO IVCON DIAGNOSTIC COMPUTED TOMOGRAPHY THORAX W/O CNTRST Avni Salcedo DO [address] [place] [address] Ct Imaging [facility] Referral ID Status Reason Start Date Expiration Date V isits Requested Visits Authorized [id number] Open Auto-Generate d Referral 06/16/2024 07/16/2025 1 1 * Diagnostic Procedure Only (Routine) - Closed Specialty Diagnoses / Procedures [facility] To Contact XR [facility] Diagnoses Foot pain, left Procedures XR FOOT GENERAL 3V AP/LAT/OBL LEFT RADEX FOOT COMPLETE MINIMUM 3 VIEWS Avni Salcedo DO [address] [place] [address] [place] [address] Referral ID Status Reason Start Date Expiration Date V isits Requested Visits Authorized [id number] Closed Auto-Generate d Referral 06/16/2024 07/16/2025 1 1 * Diagnostic Procedure Only (Routine) - Closed Specialty Diagnoses / Procedures Referred By Contac t Referred To Contact XR IMAGING Diagnoses Pain of left thumb Procedures XR HAND GENERAL 3V PA/LAT/OBL LEFT RADEX HAND MINIMUM 3 VIEWS Avni Salcedo DO [address] [place] [address] X[facility] Imaging [facility] Referral ID Status Reason Start Date Expiration Date V isits Requested Visits Authorized [id number] Closed Auto-Generate d Referral 06/16/2024 07/16/2025 1 1 [facility] for referral (narrative)* Outpatient Procedure (Routine) - Authorized Specialty Diagnoses / Procedures Referred By Contac t Referred To Contact [facility] [place] Diagnoses Asthma-COPD overlap syndrome (HCC) Procedures SPIROMETRY - BASELINE AND POST DILATOR BRNCDILAT RSPSE SPMTRY PRE&POST-BRNCDILAT ADMN Shayla Rogers MD [address] [place] [address] [facility] [place] [phone] Referral ID Status Reason Start Date Expiration Date Visits Requested Visits Authorized [id number] Authorized Auto-Generat ed Referral 10/09/2024 11/08/2025 1 1 * Outpatient Procedure (Routine) - Authorized Specialty Diagnoses / Procedures Referred By Contac t Referred To [facility] [place] Diagnoses Asthma-COPD overlap syndrome (HCC) Procedures NITRIC OXIDE, EXHALED NITRIC OXIDE GAS DETERMINATION Shayla Rogers MD [address] [place] [address] [facility] [place] [phone] Referral ID Status Reason Start Date Expiration Date Visits Requested Visits Authorized [id number] Authorized Auto-Generat ed Referral 10/09/2024 11/08/2025 1 1 * Medication Prior Authorization - Closed Specialty Diagnoses / Procedures Referred By Contac t Referred To Contact Diagnoses Asthma-COPD overlap syndrome (HCC) Shayla Rogers MD [address] [place] [address] Referral ID Status Reason Start Date Expiration Date Visits Re quested Visits Authorized [id number] Closed 1 1 [facility] for referral (narrative)No reason for [facility] Narrative* Diagnostic Procedure Only (Routine) - Closed Specialty Diagnoses / Procedures Referred By Ange t Referred To Contact Radiology / RADIO MRI [facility] Diagnoses MRI CERVICAL SPINE WO IVCON order in scanned doc Procedures MRI SPINAL CANAL CERVICAL W/O & W/CONTR MATRL MRI WO LORRAINE B 300 ALL Self Radio Mri [facility] [address] [place] [address] Referral ID Status Reason Start Date Expiration Date V isits Requested Visits Authorized [id number] Closed Patient Cleared INN/SMCP Payor Auth Obtained 10/18/2022 09/09/2023 1 1 [facility] for visit Narrative* Diagnostic Procedure Only (Routine) - Closed Specialty Diagnoses / Procedures Referred By Ange sheets Referred To Contact Radiology / RADIO MRI [facility] Diagnoses Sprain of right shoulder SPRAIN OF RIGHT SHOULDER JOINT / ADHESIVE CAPULITIS OF RIGHT SHOULDER Procedures MRI ANY JT UPPER EXTREMITY W/O CONTRAST MATRL MRI WO MSK2 SHLDR 300 ArletteNeva R [address] [place] [address] [facility] [address] [place] [address] Referral ID Status Reason Start Date Expiration Date V isits Requested Visits Authorized [id number] Closed Clearance Not Met - Admin/Chairm an/Director Advise to Postpone/Res chedule or Not Proceed 01/16/2023 03/17/2023 1 1 [facility] for visit Narrative* Diagnostic Procedure Only (Routine) - Closed Specialty Diagnoses / Procedures Referred By Contac t Referred To Contact [facility] Diagnoses Screening for colon cancer Hyperlipidemia, mixed Gastroesophageal reflux disease, unspecified whether esophagitis present Irritable bowel syndrome with constipation Diarrhea, unspecified type Personal history of colonic polyps Procedures EGD DIAGNOSTIC ESOPHAGOGASTRODUODENOSC OPY TRANSORAL DIAGNOSTIC John Chowdhury MD [address] [address] [facility] [address] [place] [address] Referral ID Status Reason Start Date Expiration Date V isits Requested Visits Authorized [id number] Closed Auto-Generated Referral Patient Cleared - INN Insurance Found 04/14/2024 09/09/2024 1 1 [facility] for visit Narrative* Diagnostic Procedure Only (Routine) - Closed Specialty Diagnoses / Procedures Referred By Ange sheets Referred To Contact XR IMAGING Diagnoses Acute pain of right shoulder Procedures XR SHOULDER GENERAL 3V OR MORE AP/TRUE AP/OTHER RIGHT RADEX SHOULDER COMPLETE MINIMUM 2 VIEWS Su Ham APRN.HOSPICE VOLUNTEER [address] [place] [address] [place] [address] Referral ID Status Reason Start Date Expiration Date V isits Requested Visits Authorized [id number] Closed Auto-Generate d Referral 11/01/2022 12/01/2023 1 1 [facility] for visit Narrative* Diagnostic Procedure Only (Routine) - Closed Specialty Diagnoses / Procedures Referred By Ange sheets Referred To Contact XR IMAGING Diagnoses Neck pain without injury Procedures XR CERV OTHER 4V AP/LAT/OBL RADEX SPINE CERVICAL 4 OR 5 VIEWS Avni Salcedo L, DO [address] [place] [address] [place] [address] Referral ID Status Reason Start Date Expiration Date V isits Requested Visits Authorized [id number] Closed Auto-Generate d Referral 05/19/2022 09/09/2022 1 1 [facility] for visit Narrative* Diagnostic Procedure Only (Routine) - Closed Specialty Diagnoses / Procedures Referred By Ange sheets Referred To Contact XR IMAGING Diagnoses Acute pain of left knee Infected abrasion of left knee, initial encounter Procedures XR KNEE GENERAL 4V AP BOTH/PA BOTH/LAT/MERC LEFT RADIOLOGIC EXAM KNEE COMPLETE 4/MORE VIEWS Su Ham APRN.HOSPICE VOLUNTEER [address] [place] [address] [place] [address] Referral ID Status Reason Start Date Expiration Date V isits Requested Visits Authorized [id number] Closed Auto-Generate d Referral 11/11/2021 12/11/2022 1 1 [facility] for visit Narrative* Diagnostic Procedure Only (Urgent) - Closed Specialty Diagnoses / Procedures Referred By Contac t Referred To Contact XR IMAGING Diagnoses Acute right ankle pain Procedures XR ANKLE GENERAL 3V AP/LAT/OBL RIGHT X-RAY ANKLE MINIMUM 3 VIEWS Marce Menjivar, TYRELL [address] [place] [address] Xr Imaging [facility] Referral ID Status Reason Start Date Expiration Date V isits Requested Visits Authorized [id number] Closed Auto-Generate d Referral 07/28/2021 08/27/2022 1 1 [facility] for visit Narrative* Diagnostic Procedure Only (Routine) - Closed Specialty Diagnoses / Procedures Referred By Contac t Referred To Contact XR IMAGING Diagnoses Foot pain, left Procedures XR FOOT GENERAL 3V AP/LAT/OBL LEFT RADEX FOOT COMPLETE MINIMUM 3 VIEWS Avni Salcedo, DO [address] [place] [address] [place] [address] Referral ID Status Reason Start Date Expiration Date V isits Requested Visits Authorized [id number] Closed Auto-Generate d Referral 06/16/2024 07/16/2025 1 1 [facility] for visit Narrative* Diagnostic Procedure Only (Urgent) - Closed Specialty Diagnoses / Procedures Referred By Contac t Referred To Contact XR IMAGING Diagnoses Rib pain on left side Procedures XR RIBS/CHEST 3V AP RIB/OBLS/CXR LEFT RADEX RIBS UNI W/POSTEROANT CH MINIMUM 3 VIEWS Elmer White MD [address] [place] [address] Phone: tel: fax: [place] [address] Referral ID Status Reason Start Date Expiration Date V isits Requested Visits Authorized [id number] Closed Auto-Generate d Referral 01/12/2025 02/11/2026 1 1 [facility] Summary Purpose Family History Relationship Condition Age at Onset Recorded Date/T yolande Unknown Family History?Cancer Unknown November 30, 2016 5:38pm Family History?Cancer Unknown January 232017 4:07pm Relationship Condition Age at Onset Recorded Date/T yolande Unknown Family History?Cancer Unknown November 30, 2016 6:38pm Family History?Cancer Unknown January 232017 5:07pm Advance Directives Advance Directive Response Recorded Date/ Time Advance Directives No January 14, 2016 7:51am Living Will No November 16, 2022 7:46pm Power of Top Tile Decorator No November 16 7:46pm Advance Directive Response Recorded Date/ Time Do you have a Healthcare Power of Top Tile Decorator? No February 21, 2025 10:48am Advance Directives No January 14, 2016 8:51am Reason for Referral Specialty Diagnoses / Procedures Referred By Ange t Referred To Contact [facility] Diagnoses Neck pain without injury Procedures CONSULT TO PHYSICAL THERAPY PHYSICAL THERAPY EVALUATION HIGH COMPLEX 45 MINS Su Bass, CSR TECHNICIAN.HOSPICE VOLUNTEER [address] [place] [address] [facility] [address] [place] [address] Referral ID Status Reason Start Date Expiration Date Visits Requested Visits Authorized [id number] Authorized Auto-Generat ed Referral 12/09/2021 09/09/2022 30 30 Specialty Diagnoses / Procedures Referred By Ange t Referred To Contact CT IMAGING Diagnoses Localized swelling, mass and lump, neck Neck pain without injury Localized enlarged lymph nodes Procedures CT NECK SOFT TISSUE W IVCON CT SOFT TISSUE NECK W/CONTRAST MATERIAL Avni Salcedo L, DO [address] [place] [address] Ct Imaging Referral ID Status Reason Start Date Expiration Date V isits Requested Visits Authorized [id number] Closed Auto-Generate d Referral 05/19/2022 06/18/2023 1 1 Specialty Diagnoses / Procedures Referred By Ange t Referred To Contact Pain Management Diagnoses Cervical radiculopathy Cervical disc disorder at C4-C5 level with radiculopathy Procedures CONSULT TO PAIN MGT OFFICE/OUTPATIENT [facility] MDM 60-74 MINUTES Avni Salcedo, DO [address] [place] [address] Referral ID Status Reason Start Date Expiration Date Visits Requested Visits Authorized [id number] Pending Review PCP Requested Referral 07/10/2023 1 1 Specialty Diagnoses / Procedures Referred By Contac t Referred To Contact CT IMAGING Diagnoses Wheezing Bronchitis Procedures CT CHEST WO IVCON DIAGNOSTIC COMPUTED TOMOGRAPHY THORAX W/O CNTRST Su Ham, CSR TECHNICIAN.HOSPICE VOLUNTEER [address] [place] [address] Ct Imaging Referral ID Status Reason Start Date Expiration Date Visits Requested Visits Authorized [id number] Pending Review Auto-Generat ed Referral 09/22/2022 10/22/2023 1 1 Specialty Diagnoses / Procedures Referred By Contac t Referred To Contact Orthopedics Diagnoses Acute pain of right shoulder Procedures CONSULT TO ORTHOPAEDICS OFFICE/OUTPATIENT [facility] 60-74 MINUTES Su Ham, CSR TECHNICIAN.HOSPICE VOLUNTEER [address] [place] [address] Referral ID Status Reason Start Date Expiration Date Visits Requested Visits Authorized [id number] Pending Review PCP Requested Referral 11/10/2022 11/10/2023 1 1 Specialty Diagnoses / Procedures Referred By Contac t Referred To Contact CT IMAGING Diagnoses Wheezing Bronchitis Procedures CT CHEST WO IVCON DIAGNOSTIC COMPUTED TOMOGRAPHY THORAX W/O CNTRST Su Ham, CSR TECHNICIAN.HOSPICE VOLUNTEER [address] [place] [address] [place] [address] Referral ID Status Reason Start Date Expiration Date V isits Requested Visits Authorized [id number] Closed Auto-Generate d Referral 09/25/2022 11/24/2022 1 1 Specialty Diagnoses / Procedures Referred By Contac t Referred To Contact General Surgery Diagnoses Screening for colon cancer Procedures CONSULT TO GENERAL SURGERY OFFICE/OUTPATIENT [facility] MDM 60 MINUTES Su Ham, CSR TECHNICIAN.HOSPICE VOLUNTEER [address] [place] [address] Referral ID Status Reason Start Date Expiration Date Visits Requested Visits Authorized [id number] Authorized PCP Requested Referral 01/31/2024 01/30/2025 1 1 Specialty Diagnoses / Procedures Referred By Ange sheets Referred To Contact [facility] Diagnoses Screening for colon cancer Hyperlipidemia, mixed Gastroesophageal reflux disease, unspecified whether esophagitis present Irritable bowel syndrome with constipation Diarrhea, unspecified type Personal history of colonic polyps Procedures EGD DIAGNOSTIC ESOPHAGOGASTRODUODENOSC OPY TRANSORAL DIAGNOSTIC John Chowdhury MD [address] [address] Referral ID Status Reason Start Date Expiration Date Visits Requested Visits Authorized [id number] Authorized Auto-Generate d Referral Patient Cleared - Qualified 100% FAS 02/08/2024 05/08/2024 99 99 Specialty Diagnoses / Procedures Referred By Ange sheets Referred To Contact [facility] Diagnoses Screening for colon cancer Hyperlipidemia, mixed Gastroesophageal reflux disease, unspecified whether esophagitis present Irritable bowel syndrome with constipation Diarrhea, unspecified type Personal history of colonic polyps Procedures COLONOSCOPY SCREENING COLONOSCOPY SCREENING COLONOSCOPY FLX DX W/COLLJ SPEC WHEN PFRMD John Chowdhury MD [id number] [address] Referral ID Status Reason Start Date Expiration Date Visits Requested Visits Authorized [id number] Pending Review Auto-Generat ed Referral 02/08/2024 02/07/2025 1 1 Specialty Diagnoses / Procedures Referred By Ange t Referred To Contact Diagnoses External hemorrhoid Su Ham, CSR TECHNICIAN.HOSPICE VOLUNTEER [address] [place] [address] Referral ID Status Reason Start Date Expiration Date V isits Requested Visits Authorized [id number] Pending Review 1 1 Specialty Diagnoses / Procedures Referred By Ange t Referred To Contact Diagnoses Asthma, moderate persistent, well-controlled Chronic allergic rhinitis Allyson Gonzalez PA-C [address] [place] [address] Referral ID Status Reason Start Date Expiration Date V isits Requested Visits Authorized [id number] Authorized 10/06/2024 10/05/2025 1 1 Specialty Diagnoses / Procedures Referred By Ange sheets Referred To Contact CT IMAGING Diagnoses Tobacco abuse Encounter for screening for lung cancer Procedures CT LUNG SCREEN WO IVCON COMPUTED TOMOGRAPHY THORAX LW DOSE LNG CA SCR C- Elmira Farrar, CSR TECHNICIAN.HOSPICE VOLUNTEER [address] [place] [address] Ct [facility] [place] [address] Referral ID Status Reason Start Date Expiration Date Visits Requested Visits Authorized [id number] Pending Review Auto-Generat ed Referral 10/06/2024 11/05/2025 1 1 Chief Complaint and Reason for Visit Chief Complaint CERVICAL SPINE room 2 arm pain Reason for Visit Degenerative disc di sease, cervical Chief Complaint Admit Date LUMBAR DISC DEGENERATION/LBP. RX HERE Ap 2024 2:30pm HYPERTENSION February 21, 2025 2:35 pm Additional Source Comments (unrecognized sect ion and content) No Status Records FoundNo Status Records FoundNo Status Records FoundNo Status Records FoundNo Status Records FoundNo Status Records FoundNo Status Records Found INFORMATION SOURCE (unrecogn ized section and content) DATE CREATED AUTHOR 03/05/2018 [facility] DATE CREATED AUTHOR AUTHOR'S ORGANIZ ATION 03/05/2018 [facility] DATE CREATED AUTHOR AUTHOR'S ORGANIZ ATION 10/15/2018 [facility] DATE CREATED AUTHOR AUTHOR'S ORGANIZ ATION 04/27/2024 [facility] DATE CREATED AUTHOR AUTHOR'S ORGANIZ ATION 01/05/2025 [facility] DATE CREATED AUTHOR AUTHOR'S ORGANIZ ATION 02/07/2025 [facility] DATE CREATED AUTHOR AUTHOR'S ORGANIZ ATION 02/11/2025 [facility] nter Source Comments (unrecognize d section and content) In the event this informatio n is protected by the Federal Confidentiality of Alcohol and Drug Abuse Patient Records regulations: The Federal rules restrict any use of the information to criminally investigate or prosecute any alcohol or drug abuse patient.[facility] the event this information is protected by the Federal Confidentiality of Alcohol and Drug Abuse Patient Records regulations: The Federal rules restrict any use of the information to criminally investigate or prosecute any alcohol or drug abuse patient.[facility] the event this information is protected by the Federal Confidentiality of Alcohol and Drug Abuse Patient Records regulations: The Federal rules restrict any use of the information to criminally investigate or prosecute any alcohol or drug abuse patient.[facility] the event this information is protected by the Federal Confidentiality of Alcohol and Drug Abuse Patient Records regulations: The Federal rules restrict any use of the information to criminally investigate or prosecute any alcohol or drug abuse patient.[facility] the event this information is protected by the Federal Confidentiality of Alcohol and Drug Abuse Patient Records regulations: The Federal rules restrict any use of the information to criminally investigate or prosecute any alcohol or drug abuse patient.[facility] the event this information is protected by the Federal Confidentiality of Alcohol and Drug Abuse Patient Records regulations: The Federal rules restrict any use of the information to criminally investigate or prosecute any alcohol or drug abuse patient.[facility] the event this information is protected by the Federal Confidentiality of Alcohol and Drug Abuse Patient Records regulations: The Federal rules restrict any use of the information to criminally investigate or prosecute any alcohol or drug abuse patient.[facility] the event this information is protected by the Federal Confidentiality of Alcohol and Drug Abuse Patient Records regulations: The Federal rules restrict any use of the information to criminally investigate or prosecute any alcohol or drug abuse patient.[facility] the event this information is protected by the Federal Confidentiality of Alcohol and Drug Abuse Patient Records regulations: The Federal rules restrict any use of the information to criminally investigate or prosecute any alcohol or drug abuse patient.[facility] HospitalIn the event this information is protected by the Federal Confidentiality of Alcohol and Drug Abuse Patient Records regulations: The Federal rules restrict any use of the information to criminally investigate or prosecute any alcohol or drug abuse patient.[facility] HospitalIn the event this information is protected by the Federal Confidentiality of Alcohol and Drug Abuse Patient Records regulations: The Federal rules restrict any use of the information to criminally investigate or prosecute any alcohol or drug abuse patient.[facility]In the event this information is protected by the Federal Confidentiality of Alcohol and Drug Abuse Patient Records regulations: The Federal rules restrict any use of the information to criminally investigate or prosecute any alcohol or drug abuse patient.[facility]In the event this information is protected by the Federal Confidentiality of Alcohol and Drug Abuse Patient Records regulations: The Federal rules restrict any use of the information to criminally investigate or prosecute any alcohol or drug abuse patient.[facility] HospitalIn the event this information is protected by the Federal Confidentiality of Alcohol and Drug Abuse Patient Records regulations: The Federal rules restrict any use of the information to criminally investigate or prosecute any alcohol or drug abuse patient.[facility]In the event this information is protected by the Federal Confidentiality of Alcohol and Drug Abuse Patient Records regulations: The Federal rules restrict any use of the information to criminally investigate or prosecute any alcohol or drug abuse patient.[facility]In the event this information is protected by the Federal Confidentiality of Alcohol and Drug Abuse Patient Records regulations: The Federal rules restrict any use of the information to criminally investigate or prosecute any alcohol or drug abuse patient.[facility]In the event this information is protected by the Federal Confidentiality of Alcohol and Drug Abuse Patient Records regulations: The Federal rules restrict any use of the information to criminally investigate or prosecute any alcohol or drug abuse patient.[facility] HospitalIn the event this information is protected by the Federal Confidentiality of Alcohol and Drug Abuse Patient Records regulations: The Federal rules restrict any use of the information to criminally investigate or prosecute any alcohol or drug abuse patient.[facility] HospitalIn the event this information is protected by the Federal Confidentiality of Alcohol and Drug Abuse Patient Records regulations: The Federal rules restrict any use of the information to criminally investigate or prosecute any alcohol or drug abuse patient.[facility] HospitalIn the event this information is protected by the Federal Confidentiality of Alcohol and Drug Abuse Patient Records regulations: The Federal rules restrict any use of the information to criminally investigate or prosecute any alcohol or drug abuse patient.[facility] HospitalIn the event this information is protected by the Federal Confidentiality of Alcohol and Drug Abuse Patient Records regulations: The Federal rules restrict any use of the information to criminally investigate or prosecute any alcohol or drug abuse patient.[facility] HospitalIn the event this information is protected by the Federal Confidentiality of Alcohol and Drug Abuse Patient Records regulations: The Federal rules restrict any use of the information to criminally investigate or prosecute any alcohol or drug abuse patient.[facility] HospitalIn the event this information is protected by the Federal Confidentiality of Alcohol and Drug Abuse Patient Records regulations: The Federal rules restrict any use of the information to criminally investigate or prosecute any alcohol or drug abuse patient.[facility] HospitalIn the event this information is protected by the Federal Confidentiality of Alcohol and Drug Abuse Patient Records regulations: The Federal rules restrict any use of the information to criminally investigate or prosecute any alcohol or drug abuse patient.[facility] HospitalIn the event this information is protected by the Federal Confidentiality of Alcohol and Drug Abuse Patient Records regulations: The Federal rules restrict any use of the information to criminally investigate or prosecute any alcohol or drug abuse patient.[facility] HospitalIn the event this information is protected by the Federal Confidentiality of Alcohol and Drug Abuse Patient Records regulations: The Federal rules restrict any use of the information to criminally investigate or prosecute any alcohol or drug abuse patient.[facility] HospitalIn the event this information is protected by the Federal Confidentiality of Alcohol and Drug Abuse Patient Records regulations: The Federal rules restrict any use of the information to criminally investigate or prosecute any alcohol or drug abuse patient.[facility] HospitalIn the event this information is protected by the Federal Confidentiality of Alcohol and Drug Abuse Patient Records regulations: The Federal rules restrict any use of the information to criminally investigate or prosecute any alcohol or drug abuse patient.[facility] HospitalIn the event this information is protected by the Federal Confidentiality of Alcohol and Drug Abuse Patient Records regulations: The Federal rules restrict any use of the information to criminally investigate or prosecute any alcohol or drug abuse patient.[facility] HospitalIn the event this information is protected by the Federal Confidentiality of Alcohol and Drug Abuse Patient Records regulations: The Federal rules restrict any use of the information to criminally investigate or prosecute any alcohol or drug abuse patient.[facility] HospitalIn the event this information is protected by the Federal Confidentiality of Alcohol and Drug Abuse Patient Records regulations: The Federal rules restrict any use of the information to criminally investigate or prosecute any alcohol or drug abuse patient.[facility] HospitalIn the event this information is protected by the Federal Confidentiality of Alcohol and Drug Abuse Patient Records regulations: The Federal rules restrict any use of the information to criminally investigate or prosecute any alcohol or drug abuse patient.[facility] HospitalIn the event this information is protected by the Federal Confidentiality of Alcohol and Drug Abuse Patient Records regulations: The Federal rules restrict any use of the information to criminally investigate or prosecute any alcohol or drug abuse patient.[facility] HospitalIn the event this information is protected by the Federal Confidentiality of Alcohol and Drug Abuse Patient Records regulations: The Federal rules restrict any use of the information to criminally investigate or prosecute any alcohol or drug abuse patient.[facility] HospitalIn the event this information is protected by the Federal Confidentiality of Alcohol and Drug Abuse Patient Records regulations: The Federal rules restrict any use of the information to criminally investigate or prosecute any alcohol or drug abuse patient.[facility] HospitalIn the event this information is protected by the Federal Confidentiality of Alcohol and Drug Abuse Patient Records regulations: The Federal rules restrict any use of the information to criminally investigate or prosecute any alcohol or drug abuse patient.[facility] HospitalIn the event this information is protected by the Federal Confidentiality of Alcohol and Drug Abuse Patient Records regulations: The Federal rules restrict any use of the information to criminally investigate or prosecute any alcohol or drug abuse patient.[facility] HospitalIn the event this information is protected by the Federal Confidentiality of Alcohol and Drug Abuse Patient Records regulations: The Federal rules restrict any use of the information to criminally investigate or prosecute any alcohol or drug abuse patient.[facility] HospitalIn the event this information is protected by the Federal Confidentiality of Alcohol and Drug Abuse Patient Records regulations: The Federal rules restrict any use of the information to criminally investigate or prosecute any alcohol or drug abuse patient.[facility] HospitalIn the event this information is protected by the Federal Confidentiality of Alcohol and Drug Abuse Patient Records regulations: The Federal rules restrict any use of the information to criminally investigate or prosecute any alcohol or drug abuse patient.[facility] HospitalIn the event this information is protected by the Federal Confidentiality of Alcohol and Drug Abuse Patient Records regulations: The Federal rules restrict any use of the information to criminally investigate or prosecute any alcohol or drug abuse patient.[facility] HospitalIn the event this information is protected by the Federal Confidentiality of Alcohol and Drug Abuse Patient Records regulations: The Federal rules restrict any use of the information to criminally investigate or prosecute any alcohol or drug abuse patient.[facility] HospitalIn the event this information is protected by the Federal Confidentiality of Alcohol and Drug Abuse Patient Records regulations: The Federal rules restrict any use of the information to criminally investigate or prosecute any alcohol or drug abuse patient.[facility] HospitalIn the event this information is protected by the Federal Confidentiality of Alcohol and Drug Abuse Patient Records regulations: The Federal rules restrict any use of the information to criminally investigate or prosecute any alcohol or drug abuse patient.[facility]In the event this information is protected by the Federal Confidentiality of Alcohol and Drug Abuse Patient Records regulations: The Federal rules restrict any use of the information to criminally investigate or prosecute any alcohol or drug abuse patient.[facility] HospitalIn the event this information is protected by the Federal Confidentiality of Alcohol and Drug Abuse Patient Records regulations: The Federal rules restrict any use of the information to criminally investigate or prosecute any alcohol or drug abuse patient.[facility]In the event this information is protected by the Federal Confidentiality of Alcohol and Drug Abuse Patient Records regulations: The Federal rules restrict any use of the information to criminally investigate or prosecute any alcohol or drug abuse patient.[facility] HospitalIn the event this information is protected by the Federal Confidentiality of Alcohol and Drug Abuse Patient Records regulations: The Federal rules restrict any use of the information to criminally investigate or prosecute any alcohol or drug abuse patient.[facility] HospitalIn the event this information is protected by the Federal Confidentiality of Alcohol and Drug Abuse Patient Records regulations: The Federal rules restrict any use of the information to criminally investigate or prosecute any alcohol or drug abuse patient.[facility] HospitalIn the event this information is protected by the Federal Confidentiality of Alcohol and Drug Abuse Patient Records regulations: The Federal rules restrict any use of the information to criminally investigate or prosecute any alcohol or drug abuse patient.[facility] HospitalIn the event this information is protected by the Federal Confidentiality of Alcohol and Drug Abuse Patient Records regulations: The Federal rules restrict any use of the information to criminally investigate or prosecute any alcohol or drug abuse patient.[facility] HospitalIn the event this information is protected by the Federal Confidentiality of Alcohol and Drug Abuse Patient Records regulations: The Federal rules restrict any use of the information to criminally investigate or prosecute any alcohol or drug abuse patient.[facility] HospitalIn the event this information is protected by the Federal Confidentiality of Alcohol and Drug Abuse Patient Records regulations: The Federal rules restrict any use of the information to criminally investigate or prosecute any alcohol or drug abuse patient.[facility] HospitalIn the event this information is protected by the Federal Confidentiality of Alcohol and Drug Abuse Patient Records regulations: The Federal rules restrict any use of the information to criminally investigate or prosecute any alcohol or drug abuse patient.[facility] HospitalIn the event this information is protected by the Federal Confidentiality of Alcohol and Drug Abuse Patient Records regulations: The Federal rules restrict any use of the information to criminally investigate or prosecute any alcohol or drug abuse patient.[facility] HospitalIn the event this information is protected by the Federal Confidentiality of Alcohol and Drug Abuse Patient Records regulations: The Federal rules restrict any use of the information to criminally investigate or prosecute any alcohol or drug abuse patient.[facility] HospitalIn the event this information is protected by the Federal Confidentiality of Alcohol and Drug Abuse Patient Records regulations: The Federal rules restrict any use of the information to criminally investigate or prosecute any alcohol or drug abuse patient.[facility]In the event this information is protected by the Federal Confidentiality of Alcohol and Drug Abuse Patient Records regulations: The Federal rules restrict any use of the information to criminally investigate or prosecute any alcohol or drug abuse patient.[facility] HospitalIn the event this information is protected by the Federal Confidentiality of Alcohol and Drug Abuse Patient Records regulations: The Federal rules restrict any use of the information to criminally investigate or prosecute any alcohol or drug abuse patient.[facility] HospitalIn the event this information is protected by the Federal Confidentiality of Alcohol and Drug Abuse Patient Records regulations: The Federal rules restrict any use of the information to criminally investigate or prosecute any alcohol or drug abuse patient.[facility] HospitalIn the event this information is protected by the Federal Confidentiality of Alcohol and Drug Abuse Patient Records regulations: The Federal rules restrict any use of the information to criminally investigate or prosecute any alcohol or drug abuse patient.[facility] HospitalIn the event this information is protected by the Federal Confidentiality of Alcohol and Drug Abuse Patient Records regulations: The Federal rules restrict any use of the information to criminally investigate or prosecute any alcohol or drug abuse patient.[facility]In the event this information is protected by the Federal Confidentiality of Alcohol and Drug Abuse Patient Records regulations: The Federal rules restrict any use of the information to criminally investigate or prosecute any alcohol or drug abuse patient.[facility]In the event this information is protected by the Federal Confidentiality of Alcohol and Drug Abuse Patient Records regulations: The Federal rules restrict any use of the information to criminally investigate or prosecute any alcohol or drug abuse patient.[facility]In the event this information is protected by the Federal Confidentiality of Alcohol and Drug Abuse Patient Records regulations: The Federal rules restrict any use of the information to criminally investigate or prosecute any alcohol or drug abuse patient.[facility]In the event this information is protected by the Federal Confidentiality of Alcohol and Drug Abuse Patient Records regulations: The Federal rules restrict any use of the information to criminally investigate or prosecute any alcohol or drug abuse patient.[facility]In the event this information is protected by the Federal Confidentiality of Alcohol and Drug Abuse Patient Records regulations: The Federal rules restrict any use of the information to criminally investigate or prosecute any alcohol or drug abuse patient.[facility] HospitalIn the event this information is protected by the Federal Confidentiality of Alcohol and Drug Abuse Patient Records regulations: The Federal rules restrict any use of the information to criminally investigate or prosecute any alcohol or drug abuse patient.[facility]In the event this information is protected by the Federal Confidentiality of Alcohol and Drug Abuse Patient Records regulations: The Federal rules restrict any use of the information to criminally investigate or prosecute any alcohol or drug abuse patient.[facility]In the event this information is protected by the Federal Confidentiality of Alcohol and Drug Abuse Patient Records regulations: The Federal rules restrict any use of the information to criminally investigate or prosecute any alcohol or drug abuse patient.[facility]In the event this information is protected by the Federal Confidentiality of Alcohol and Drug Abuse Patient Records regulations: The Federal rules restrict any use of the information to criminally investigate or prosecute any alcohol or drug abuse patient.[facility] HospitalIn the event this information is protected by the Federal Confidentiality of Alcohol and Drug Abuse Patient Records regulations: The Federal rules restrict any use of the information to criminally investigate or prosecute any alcohol or drug abuse patient.[facility]In the event this information is protected by the Federal Confidentiality of Alcohol and Drug Abuse Patient Records regulations: The Federal rules restrict any use of the information to criminally investigate or prosecute any alcohol or drug abuse patient.[facility]In the event this information is protected by the Federal Confidentiality of Alcohol and Drug Abuse Patient Records regulations: The Federal rules restrict any use of the information to criminally investigate or prosecute any alcohol or drug abuse patient.[facility]In the event this information is protected by the Federal Confidentiality of Alcohol and Drug Abuse Patient Records regulations: The Federal rules restrict any use of the information to criminally investigate or prosecute any alcohol or drug abuse patient.[facility]In the event this information is protected by the Federal Confidentiality of Alcohol and Drug Abuse Patient Records regulations: The Federal rules restrict any use of the information to criminally investigate or prosecute any alcohol or drug abuse patient.[facility]In the event this information is protected by the Federal Confidentiality of Alcohol and Drug Abuse Patient Records regulations: The Federal rules restrict any use of the information to criminally investigate or prosecute any alcohol or drug abuse patient.[facility] HospitalIn the event this information is protected by the Federal Confidentiality of Alcohol and Drug Abuse Patient Records regulations: The Federal rules restrict any use of the information to criminally investigate or prosecute any alcohol or drug abuse patient.[facility]In the event this information is protected by the Federal Confidentiality of Alcohol and Drug Abuse Patient Records regulations: The Federal rules restrict any use of the information to criminally investigate or prosecute any alcohol or drug abuse patient.[facility]In the event this information is protected by the Federal Confidentiality of Alcohol and Drug Abuse Patient Records regulations: The Federal rules restrict any use of the information to criminally investigate or prosecute any alcohol or drug abuse patient.[facility]In the event this information is protected by the Federal Confidentiality of Alcohol and Drug Abuse Patient Records regulations: The Federal rules restrict any use of the information to criminally investigate or prosecute any alcohol or drug abuse patient.[facility]In the event this information is protected by the Federal Confidentiality of Alcohol and Drug Abuse Patient Records regulations: The Federal rules restrict any use of the information to criminally investigate or prosecute any alcohol or drug abuse patient.[facility]In the event this information is protected by the Federal Confidentiality of Alcohol and Drug Abuse Patient Records regulations: The Federal rules restrict any use of the information to criminally investigate or prosecute any alcohol or drug abuse patient.[facility]In the event this information is protected by the Federal Confidentiality of Alcohol and Drug Abuse Patient Records regulations: The Federal rules restrict any use of the information to criminally investigate or prosecute any alcohol or drug abuse patient.[facility]In the event this information is protected by the Federal Confidentiality of Alcohol and Drug Abuse Patient Records regulations: The Federal rules restrict any use of the information to criminally investigate or prosecute any alcohol or drug abuse patient.[facility]In the event this information is protected by the Federal Confidentiality of Alcohol and Drug Abuse Patient Records regulations: The Federal rules restrict any use of the information to criminally investigate or prosecute any alcohol or drug abuse patient.[facility]In the event this information is protected by the Federal Confidentiality of Alcohol and Drug Abuse Patient Records regulations: The Federal rules restrict any use of the information to criminally investigate or prosecute any alcohol or drug abuse patient.[facility]In the event this information is protected by the Federal Confidentiality of Alcohol and Drug Abuse Patient Records regulations: The Federal rules restrict any use of the information to criminally investigate or prosecute any alcohol or drug abuse patient.[facility]In the event this information is protected by the Federal Confidentiality of Alcohol and Drug Abuse Patient Records regulations: The Federal rules restrict any use of the information to criminally investigate or prosecute any alcohol or drug abuse patient.[facility] HospitalIn the event this information is protected by the Federal Confidentiality of Alcohol and Drug Abuse Patient Records regulations: The Federal rules restrict any use of the information to criminally investigate or prosecute any alcohol or drug abuse patient.[facility] HospitalIn the event this information is protected by the Federal Confidentiality of Alcohol and Drug Abuse Patient Records regulations: The Federal rules restrict any use of the information to criminally investigate or prosecute any alcohol or drug abuse patient.[facility] HospitalIn the event this information is protected by the Federal Confidentiality of Alcohol and Drug Abuse Patient Records regulations: The Federal rules restrict any use of the information to criminally investigate or prosecute any alcohol or drug abuse patient.[facility] HospitalIn the event this information is protected by the Federal Confidentiality of Alcohol and Drug Abuse Patient Records regulations: The Federal rules restrict any use of the information to criminally investigate or prosecute any alcohol or drug abuse patient.[facility] HospitalIn the event this information is protected by the Federal Confidentiality of Alcohol and Drug Abuse Patient Records regulations: The Federal rules restrict any use of the information to criminally investigate or prosecute any alcohol or drug abuse patient.[facility] HospitalIn the event this information is protected by the Federal Confidentiality of Alcohol and Drug Abuse Patient Records regulations: The Federal rules restrict any use of the information to criminally investigate or prosecute any alcohol or drug abuse patient.[facility] HospitalIn the event this information is protected by the Federal Confidentiality of Alcohol and Drug Abuse Patient Records regulations: The Federal rules restrict any use of the information to criminally investigate or prosecute any alcohol or drug abuse patient.[facility] HospitalIn the event this information is protected by the Federal Confidentiality of Alcohol and Drug Abuse Patient Records regulations: The Federal rules restrict any use of the information to criminally investigate or prosecute any alcohol or drug abuse patient.[facility] HospitalIn the event this information is protected by the Federal Confidentiality of Alcohol and Drug Abuse Patient Records regulations: The Federal rules restrict any use of the information to criminally investigate or prosecute any alcohol or drug abuse patient.[facility] HospitalIn the event this information is protected by the Federal Confidentiality of Alcohol and Drug Abuse Patient Records regulations: The Federal rules restrict any use of the information to criminally investigate or prosecute any alcohol or drug abuse patient.[facility] HospitalIn the event this information is protected by the Federal Confidentiality of Alcohol and Drug Abuse Patient Records regulations: The Federal rules restrict any use of the information to criminally investigate or prosecute any alcohol or drug abuse patient.[facility] HospitalIn the event this information is protected by the Federal Confidentiality of Alcohol and Drug Abuse Patient Records regulations: The Federal rules restrict any use of the information to criminally investigate or prosecute any alcohol or drug abuse patient.[facility] HospitalIn the event this information is protected by the Federal Confidentiality of Alcohol and Drug Abuse Patient Records regulations: The Federal rules restrict any use of the information to criminally investigate or prosecute any alcohol or drug abuse patient.[facility] HospitalIn the event this information is protected by the Federal Confidentiality of Alcohol and Drug Abuse Patient Records regulations: The Federal rules restrict any use of the information to criminally investigate or prosecute any alcohol or drug abuse patient.[facility] HospitalIn the event this information is protected by the Federal Confidentiality of Alcohol and Drug Abuse Patient Records regulations: The Federal rules restrict any use of the information to criminally investigate or prosecute any alcohol or drug abuse patient.[facility] HospitalIn the event this information is protected by the Federal Confidentiality of Alcohol and Drug Abuse Patient Records regulations: The Federal rules restrict any use of the information to criminally investigate or prosecute any alcohol or drug abuse patient.[facility] HospitalIn the event this information is protected by the Federal Confidentiality of Alcohol and Drug Abuse Patient Records regulations: The Federal rules restrict any use of the information to criminally investigate or prosecute any alcohol or drug abuse patient.[facility] Reason for Visit (unrecogniz ed section and content) Reason Comments Radiology CT Specialty Diagnoses / Procedures Referred By Ange sheets Referred To Contact CT IMAGING Diagnoses Wheezing Bronchitis Procedures CT CHEST WO IVCON DIAGNOSTIC COMPUTED TOMOGRAPHY THORAX W/O CNTRST Su Ham, CSR TECHNICIAN.HOSPICE VOLUNTEER [address] [place] [address] [place] [address] Referral ID Status Reason Start Date Expiration Date V isits Requested Visits Authorized [id number] Closed Auto-Generate d Referral 09/25/2022 11/24/2022 1 1 Reason Comments PT Discharge Specialty Diagnoses / Procedures Referred By Ange t Referred To Contact [facility] Diagnoses Neck pain without injury Procedures CONSULT TO PHYSICAL THERAPY PHYSICAL THERAPY EVALUATION HIGH COMPLEX 45 MINS Su Bass, CSR TECHNICIAN.HOSPICE VOLUNTEER [address] [place] [address] [facility] [address] [place] [address] Referral ID Status Reason Start Date Expiration Date Visits Requested Visits Authorized [id number] Authorized Auto-Generat ed Referral 12/09/2021 09/09/2022 30 30 Reason Comments Physical Therapy Reason Comments Employment Physical Specialty Diagnoses / Procedures Referred By Ange t Referred To Contact Family Practice / FAMILY MEDICINE Diagnoses DOT PHYSICAL Procedures OFFICE/OUTPATIENT NEW MODERATE MDM 45-59 MINUTES 4C DOT PHYSICAL Self Lita Ludwig PA-C [address] [place] [address] Referral ID Status Reason Start Date Expiration Date Visits Re quested Visits Authorized [id number] Closed 12/12/2021 09/09/2022 1 1 Reason Onset [...] Pain Specialty Diagnoses / Procedures Referred By Ange t Referred To Contact Family Practice / FAMILY MEDICINE Diagnoses Pain in my neck covering from left to center. Procedures MYC OFFICE VISIT Pcp, Avni Hoffmann DO [address] [place] [address] Referral ID Status Reason Start Date Expiration Date Visits Re quested Visits Authorized [id number] Closed 05/19/2022 09/09/2022 1 1 Reason Comments Results Reason Comments PT Eval Specialty Diagnoses / Procedures Referred By Ange sheets Referred To Contact Radiology / RADIO CT SCAN [facility] Diagnoses Dx: Localized swelling, mass and lump, neck [R22.1]; Neck pain without injury [M54.2]; Localized enlarged lymph nodes [R59.0] Patient calling to move this up as he got approval [id number] 06/01/2022 - 07/21/[address] SOFT TISSUE NECK W/CONTRAST MATERIAL CT WWO LORRAINE B 400 Avni Salcedo DO [address] [place] [address] [facility] [address] [place] [address] Referral ID Status Reason Start Date Expiration Date Visits Requested Visits Authorized [id number] Waiting for Response Patient Cleared - Admin/Chair [...] Month Specialty Diagnoses / Procedures Referred By Contac t Referred To Contact Family Medicine / FAMILY MEDICINE Diagnoses 3 month follow up Procedures 4C EST Self Avni Salcedo, [address] [place] [id number] Referral ID Status Reason Start Date Expiration Date Visits Re quested Visits Authorized [id number] Closed 10/11/2022 09/09/2023 1 1 Reason Comments Spirometry Specialty Diagnoses / Procedures Referred By Contac t Referred [facility] Contact [facility] Diagnoses Bronchitis Asthma, moderate persistent, well-controlled Sarcoidosis of lung (HCC) Procedures SPIROMETRY - BASELINE AND POST DILATOR BRNCDILAT RSPSE SPMTRY PRE&POST-BRNCDILAT ADMN Su Ham APRN.HOSPICE VOLUNTEER [address] [place] [address] [facility] [address] [place] [address] Referral ID Status Reason Start Date Expiration Date V isits Requested Visits Authorized [id number] Closed Auto-Generate d Referral 10/02/2022 11/01/2023 1 1 Specialty Diagnoses / Procedures Referred By Contac t Referred To Contact [facility] Diagnoses Bronchitis Asthma, moderate persistent, well-controlled Sarcoidosis of lung (HCC) Procedures LUNG VOLUMES Su Ham APRN.HOSPICE VOLUNTEER [address] [place] [address] [facility] [address] [place] [address] Referral ID Status Reason Start Date Expiration Date V isits Requested Visits Authorized [id number] Closed Auto-Generate d Referral 10/13/2022 09/09/2023 1 [...] Referred By Contac t Referred To Contact [facility] DEPART[facility] Diagnoses Encounter to establish care Procedures OFFICE/OP CONSLTJ NEW/EST PT MOD MDM 40 MINUTES Self [facility] [place] [address] Referral ID Status Reason Start Date Expiration Date Visits Requested Visits Authorized [id number] Authorized Patient Cleared - Qualified 100% FAS 01/30/2024 04/29/2024 99 99 Reason Comments Consult Screening for colon cancer Specialty Diagnoses / Procedures Referred By Contac t Referred To Contact General Surgery Diagnoses Screening for colon cancer Procedures CONSULT TO GENERAL SURGERY OFFICE/OUTPATIENT [facility] MDM 60 MINUTES Su Ham APRN.CNP [address] [place] [address] Referral ID Status Reason Start Date Expiration Date V isits Requested Visits Authorized [id number] Closed PCP Requested Referral 01/31/2024 01/30/2025 1 1 Reason Onset Date Comments Refill Request 02/20/2024 Reason Comments BP Check Specialty Diagnoses / Procedures Referred By Contac t Referred To Contact [facility] DE[facility] Diagnoses Encounter to establish care Procedures OFFICE/OP CONSLTJ NEW/EST PT MOD MDM 40 MINUTES [facility] [address] Reason Comments Follow Up Review EGD and colon oscopy results. Reason Onset Date Comments Refill Request 04/28/2024 Reason Onset Date Comments Refill Request 06/06/2024 Reason Comments Radiology XR Specialty Diagnoses / Procedures Referred By Contac t Referred To Contact [facility] Diagnoses fatigue, sob, cough, sinus and headache Procedures consult Elsie Johansen, PADeangeloC [address] [place] [address] Express [facility] [address] [place] [address] Referral ID Status Reason Start Date Expiration Date V isits Requested Visits Authorized [id number] Closed OON/Self Pay Override 09/23/2020 12/22/2020 1 1 Reason Comments Follow Up Reason Comments Radiology CT Specialty Diagnoses / Procedures Referred By Contac t Referred To Contact CT IMAGING Diagnoses Pulmonary nodule Procedures CT CHEST WO IVCON DIAGNOSTIC COMPUTED TOMOGRAPHY THORAX W/O CNTRST Avni Salcedo, DO [address] [place] [address] [place] [address] Referral ID Status Reason Start Date Expiration Date V isits Requested Visits Authorized [id number] Closed Auto-Generat ed Referral Patient Cleared - [...] 10/15/2024 Specialty Diagnoses / Procedures [facility] Diagnoses Asthma-COPD overlap syndrome (HCC) Procedures NITRIC OXIDE, EXHALED NITRIC OXIDE GAS DETERMINATION Shayla Rogers MD [address] [place] [address] Phone: tel: fax: [facility] [address] [place] [address] Referral ID Status Reason Start Date Expiration Date V isits Requested Visits Authorized [id number] Closed Auto-Generate d Referral 10/09/2024 11/08/2025 1 1 Specialty Diagnoses / Procedures Referred By Contac t Referred To Contact [facility] Diagnoses Asthma-COPD overlap syndrome (HCC) Procedures SPIROMETRY - BASELINE AND POST DILATOR BRNCDILAT RSPSE SPMTRY PRE&POST-BRNCDILAT ADMShayla Perez MD [address] [facility] [place] [address] Phone: tel: fax: [facility] [address] [place] [address] Referral ID Status Reason Start Date Expiration Date V isits Requested Visits Authorized [id number] Closed Auto-Generate d Referral 10/09/2024 11/08/2025 1 1 Reason Comments Established Patient 3 month follow up as thma Reason Comments 6 Month Exam Reason Comments Abdominal Pain Left side pain Reason Onset Date Comments Results 01/12/2025 Reason Onset Date Comments Results 01/13/2025 Care Teams (unrecognized sec tion and content) Tool Crib Attendant Relationship Specialty Start Date End Date Avni Salcedo DO [address] [facility] [place] [address] PCP - General Family Practice 09/22/13 Tool Crib Attendant Relationship Specialty Start Date End Date Avni Salcedo DO [address] [facility] [place] [address] PCP - General Family Practice 09/22/13 Tool Crib Attendant Relationship Specialty Start Date End Date Avni Salcedo DO [address] [facility] [place] [address] PCP - General Family Practice 09/22/13 Tool Crib Attendant Relationship Specialty Start Date End Date Avni Salcedo DO [address] [place] [address] PCP - General Family Practice 09/22/13 Tool Crib Attendant Relationship Specialty Start Date End Date Avni Salcedo DO [address] [facility] [place] [address] PCP - General Family Practice 09/22/13 Tool Crib Attendant Relationship Specialty Start Date End Date Avni Salcedo DO [address] [facility] [place] [address] PCP - General Family Practice 09/22/13 Tool Crib Attendant Relationship Specialty Start Date End Date Avni Salcedo, DO [address] [place] [address] PCP - General Family Practice 09/22/13 Tool Crib Attendant Relationship Specialty Start Date End Date Avni Salcedo, DO [address] [place] [address] PCP - General Family Practice 09/22/13 Tool Crib Attendant Relationship Specialty Start Date End Date Avni Salcedo, DO [address] [place] [address] PCP - General Family Practice 09/22/13 Tool Crib Attendant Relationship Specialty Start Date End Date Avni Salcedo, DO [address] [place] [address] PCP - General Family Practice 09/22/13 Tool Crib Attendant Relationship Specialty Start Date End Date Avni Salcedo, DO [address] [place] [address] PCP - General Family Practice 09/22/13 Tool Crib Attendant Relationship Specialty Start Date End Date Avni Salcedo, DO [address] [place] [address] PCP - General Family Practice 09/22/13 Tool Crib Attendant Relationship Specialty Start Date End Date Avni Salcedo, DO [address] [place] [address] PCP - General Family Medicine 09/22/13 Tool Crib Attendant Relationship Specialty Start Date End Date Avni Salcedo, DO [address] [place] [address] PCP - General Family Medicine 09/22/13 Tool Crib Attendant Relationship Specialty Start Date End Date Avni Salcedo, DO [address] [place] [address] PCP - General Family Medicine 09/22/13 Tool Crib Attendant Relationship Specialty Start Date End Date Avni Salcedo, DO [address] [place] [address] PCP - General Family Medicine 09/22/13 Tool Crib Attendant Relationship Specialty Start Date End Date Avni Salcedo, DO [address] [place] [address] PCP - General Family Medicine 09/22/13 Tool Crib Attendant Relationship Specialty Start Date End Date Avni Salcedo, DO [address] [place] [address] PCP - General Family Medicine 09/22/13 Tool Crib Attendant Relationship Specialty Start Date End Date Avni Salcedo, DO [address] [place] [address] PCP - General Family Medicine 09/22/13 Tool Crib Attendant Relationship Specialty Start Date End Date Avni Salcedo, DO [address] [place] [address] PCP - General Family Medicine 09/22/13 Tool Crib Attendant Relationship Specialty Start Date End Date Avni Salcedo, DO [address] [place] [address] PCP - General Family Medicine 09/22/13 Tool Crib Attendant Relationship Specialty Start Date End Date Avni Salcedo, DO [address] [place] [address] PCP - General Family Medicine 09/22/13 Tool Crib Attendant Relationship Specialty Start Date End Date Avni Salcedo, DO [address] [place] [address] PCP - General Family Medicine 09/22/13 Tool Crib Attendant Relationship Specialty Start Date End Date Avni Salcedo, DO [address] [place] [address] PCP - General Family Medicine 09/22/13 Tool Crib Attendant Relationship Specialty Start Date End Date Avni Salcedo, DO [address] [place] [address] PCP - General Family Medicine 09/22/13 Tool Crib Attendant Relationship Specialty Start Date End Date Avni Salcedo, DO [address] [place] [address] PCP - General Family Medicine 09/22/13 Tool Crib Attendant Relationship Specialty Start Date End Date Avni Salcedo, DO [address] [place] [address] PCP - General Family Medicine 09/22/13 Tool Crib Attendant Relationship Specialty Start Date End Date Avni Salcedo, DO [address] [place] [address] PCP - General Family Medicine 09/22/13 Tool Crib Attendant Relationship Specialty Start Date End Date Avni Salcedo, DO [address] [place] [address] PCP - General Family Medicine 09/22/13 Tool Crib Attendant Relationship Specialty Start Date End Date Avni Salcedo, DO [address] [place] [address] PCP - General Family Medicine 09/22/13 Tool Crib Attendant Relationship Specialty Start Date End Date Avni Salcedo, DO [address] [place] [address] PCP - General Family Medicine 09/22/13 Tool Crib Attendant Relationship Specialty Start Date End Date Avni Salcedo, DO [address] [place] [address] PCP - General Family Medicine 09/22/13 Tool Crib Attendant Relationship Specialty Start Date End Date Avni Salcedo, DO [address] [place] [address] PCP - General Family Medicine 09/22/13 Tool Crib Attendant Relationship Specialty Start Date End Date Avni Salcedo, DO [address] [facility] [place] [address] PCP - General Family Medicine 09/22/13 Tool Crib Attendant Relationship Specialty Start Date End Date Avni Salcedo DO [address] [facility] [place] [address] PCP - General Family Medicine 09/22/13 Tool Crib Attendant Relationship Specialty Start Date End Date Avni Salcedo DO [address] [facility] [place] [address] PCP - General Family Medicine 09/22/13 Team Status: Active Member Role Status Dates Dr. Avni Salcedo DO Family Provider Active Dr. Avni Salcedo , Primary Care Provider Active Team Status: Inactive Member Role Status Dates Dr. Avni Salcedo , Primary Care Provider, Referr ing Provider Active Dr. Alok Purvis , Attending Provider Active Team Status: Inactive Member Role Status Dates Dr. Avni Salcedo DO Primary Care Provider Active Dr. Hood Vang MD Attending Provider Active Team Status: Inactive Member Role Status Dates Dr. Avni Salcedo DO Primary Care Provider Active Dr. Rah Queen MD Emergency Provider Active Tool Crib Attendant Relationship Specialty Start Date End Date Avni Salcedo DO [address] [facility] [place] [address] PCP - General Family Medicine 09/22/13 Tool Crib Attendant Relationship Specialty Start Date End Date Avni Salcedo DO [address] [facility] [place] [address] PCP - General Family Medicine 09/22/13 Tool Crib Attendant Relationship Specialty Start Date End Date Avni Salcedo DO [address] [facility] [place] [address] PCP - General Family Medicine 09/22/13 Tool Crib Attendant Relationship Specialty Start Date End Date Avni Salcedo, [address] [place] [address] PCP - General Family Medicine 09/22/13 Tool Crib Attendant Relationship Specialty Start Date End Date Avni Salcedo, [address] [place] [address] PCP - General Family Medicine 09/22/13 Tool Crib Attendant Relationship Specialty Start Date End Date Avni Salcedo DO [address] [place] [address] PCP - General Family Medicine 09/22/13 Tool Crib Attendant Relationship Specialty Start Date End Date Avni Salcedo, [address] [place] [address] PCP - General Family Medicine 09/22/13 Tool Crib Attendant Relationship Specialty Start Date End Date Avni Salcedo DO [address] [place] [address] PCP - General Family Medicine 09/22/13 Tool Crib Attendant Relationship Specialty Start Date End Date Avni Salcedo, [address] [place] [address] PCP - General Family Medicine 09/22/13 Tool Crib Attendant Relationship Specialty Start Date End Date Avni Salcedo DO [address] [place] [address] PCP - General Family Medicine 09/22/13 Tool Crib Attendant Relationship Specialty Start Date End Date Avni Salcedo, [address] [place] [address] PCP - General Family Medicine 09/22/13 Tool Crib Attendant Relationship Specialty Start Date End Date Avni Salcedo DO [address] [place] [address] PCP - General Family Medicine 09/22/13 Tool Crib Attendant Relationship Specialty Start Date End Date Avni Salcedo DO [address] [place] [address] PCP - General Family Medicine 09/22/13 Tool Crib Attendant Relationship Specialty Start Date End Date Avni Salcedo DO [address] [place] [address] PCP - General Family Medicine 09/22/13 Tool Crib Attendant Relationship Specialty Start Date End Date Avni Salcedo DO [address] [place] [address] PCP - General Family Medicine 09/22/13 Tool Crib Attendant Relationship Specialty Start Date End Date Avni Salcedo DO [address] [place] [address] PCP - General Family Medicine 09/22/13 Tool Crib Attendant Relationship Specialty Start Date End Date Avni Salcedo DO [address] [place] [address] PCP - General Family Medicine 09/22/13 Tool Crib Attendant Relationship Specialty Start Date End Date Avni Salcedo DO [address] [place] [address] PCP - General Family Medicine 09/22/13 Tool Crib Attendant Relationship Specialty Start Date End Date Avni Salcedo DO [address] [place] [address] PCP - General Family Medicine 09/22/13 Tool Crib Attendant Relationship Specialty Start Date End Date Avni Salcedo DO [address] [place] [address] PCP - General Family Medicine 09/22/13 Tool Crib Attendant Relationship Specialty Start Date End Date Avni Salcedo DO [address] [place] [address] PCP - General Family Medicine 09/22/13 Tool Crib Attendant Relationship Specialty Start Date End Date Avni Salcedo DO [address] [place] [address] PCP - General Family Medicine 09/22/13 Tool Crib Attendant Relationship Specialty Start Date End Date Avni Salcedo DO [address] [place] [address] PCP - General Family Medicine 09/22/13 Tool Crib Attendant Relationship Specialty Start Date End Date Avni Salcedo DO [address] [place] [address] PCP - General Family Medicine 09/22/13 Tool Crib Attendant Relationship Specialty Start Date End Date Avni Salcedo DO [address] [place] [address] PCP - General Family Medicine 09/22/13 Tool Crib Attendant Relationship Specialty Start Date End Date Avni Salcedo DO [address] [place] [address] PCP - General Family Medicine 09/22/13 Tool Crib Attendant Relationship Specialty Start Date End Date Avni Salcedo DO [address] [facility] [address] PCP - General Family Medicine 09/22/13 Tool Crib Attendant Relationship Specialty Start Date End Date Avni Salcedo DO [address] [place] [address] PCP - General Family Medicine 09/22/13 Tool Crib Attendant Relationship Specialty Start Date End Date Avni Salcedo DO [address] [facility] [place] [address] PCP - General Family Medicine 09/22/13 Tool Crib Attendant Relationship Specialty Start Date End Date Avni Salcedo DO [address] [facility] [place] [address] PCP - General Family Medicine 09/22/13 Tool Crib Attendant Relationship Specialty Start Date End Date Avni Salcedo DO [address] [facility] [place] [address] PCP - General Family Medicine 09/22/13 Tool Crib Attendant Relationship Specialty Start Date End Date Avni Salcedo DO [address] [facility] [place] [address] PCP - General Family Medicine 09/22/13 Su Ham, CSR TECHNICIAN.HOSPICE VOLUNTEER [address] [facility] [place] [address] Arts Administrator Or Manager Family Medicine 08/17/24 Catalina Almazan APRN.HOSPICE VOLUNTEER [address] [facility] [place] [address] Arts Administrator Or Manager Family Medicine 08/17/24 Tool Crib Attendant Relationship Specialty Start Date End Date Avni Salcedo DO [address] [place] [address] PCP - General Family Medicine 09/22/13 Su Ham, CSR TECHNICIAN.HOSPICE VOLUNTEER [address] [place], [place] [address] Arts Administrator Or Manager Family Medicine 08/17/24 Catalina Almazan, CSR TECHNICIAN.HOSPICE VOLUNTEER [address] [place] [address] Arts Administrator Or Manager Family Medicine 08/17/24 Tool Crib Attendant Relationship Specialty Start Date End Date Avni Salcedo DO [address] [place] [address] PCP - General Family Medicine 09/22/13 Su Ham, CSR TECHNICIAN.HOSPICE VOLUNTEER [address] [place] [address] Arts Administrator Or Manager Family Medicine 08/17/24 Catalina Almazan, CSR TECHNICIAN.HOSPICE VOLUNTEER [address] [place] [address] Arts Administrator Or Manager Family [facility] 08/17/24 Tool Crib Attendant Relationship Specialty Start Date End Date Avni Salcedo DO [address] [place] [address] PCP - General Family Medicine 09/22/13 Su Ham, CSR TECHNICIAN.HOSPICE VOLUNTEER [address] [place] [address] Arts Administrator Or Manager Family Medicine 08/17/24 Catalina Almazan, CSR TECHNICIAN.HOSPICE VOLUNTEER [address] [place] [address] Arts Administrator Or Manager Family Medicine 08/17/24 Tool Crib Attendant Relationship Specialty Start Date End Date Avni Salcedo DO [address] [place] [address] PCP - General Family Medicine 09/22/13 Su Ham, CSR TECHNICIAN.HOSPICE VOLUNTEER [address] [facility] [place] [address] Arts Administrator Or Manager Family Medicine 08/17/24 Catalina Almazan, CSR TECHNICIAN.HOSPICE VOLUNTEER [address] [facility] [place] [address] Arts Administrator Or Manager Family Medicine 08/17/24 Tool Crib Attendant Relationship Specialty Start Date End Date Avni Salcedo DO [address] [facility] [place] [address] PCP - General Family Medicine 09/22/13 Su Ham, CSR TECHNICIAN.HOSPICE VOLUNTEER [address] [facility] [place] [address] Arts Administrator Or Manager Family Medicine 08/17/24 Catalina Almazan, CSR TECHNICIAN.HOSPICE VOLUNTEER [address] [facility] [place] [address] Arts Administrator Or Manager Family Medicine 08/17/24 Tool Crib Attendant Relationship Specialty Start Date End Date Avni Salcedo DO [address] [facility] [place] [address] PCP - General Family Medicine 09/22/13 Catalina Almazan, CSR TECHNICIAN.HOSPICE VOLUNTEER [address] [facility] [place] [address] Arts Administrator Or Manager Family Medicine 08/17/24 Tool Crib Attendant Relationship Specialty Start Date End Date Avni Salcedo DO [address] [place] [address] PCP - General Family Medicine 09/22/13 [facility] [place], CSR TECHNICIAN.HOSPICE VOLUNTEER [address] [place] [address] [facility] 08/[facility]24 Tool Crib Attendant Relationship Specialty Start Date End Date Avni Salcedo DO [address] [place] [address] PCP - General Family Medicine 09/22/13 [facility] [place], CSR TECHNICIAN.HOSPICE VOLUNTEER [address] [place] [address] [facility] 08/17/24 Tool Crib Attendant Relationship Specialty Start Date End Date Avni Salcedo DO [address] [place] [address] PCP - General Family Medicine 09/22/13 [facility] [place], CSR TECHNICIAN.HOSPICE VOLUNTEER [address] [place] [address] [facility] 08/17/24 Tool Crib Attendant Relationship Specialty Start Date End Date Avni Salcedo DO [address] [place] [address] PCP - General Family Medicine 09/22/13 [facility] [place], CSR TECHNICIAN.HOSPICE VOLUNTEER [address] [place] [address] [facility] 08/17/24 Tool Crib Attendant Relationship Specialty Start Date End Date Avni Salcedo DO [address] [facility] [place] [address] PCP - General Family Medicine 09/22/13 [facility] [place], CSR TECHNICIAN.HOSPICE VOLUNTEER [address] [facility] [place] [address] Arts Administrator Or Manager Family [facility] 08/17/24 Tool Crib Attendant Relationship Specialty Start Date End Date Avni Salcedo DO [address] [facility] [place] [address] PCP - General Family Medicine 09/22/13 ThaCatalina, CSR TECHNICIAN.HOSPICE VOLUNTEER [address] [place] [address] Arts [facility] 08/17/24 Tool Crib Attendant Relationship Specialty Start Date End Date Avni Salcedo DO [address] [facility] [place] [address] PCP - General Family Medicine 09/22/13 ThaCatalina, CSR TECHNICIAN.HOSPICE VOLUNTEER [address] [place] [address] Arts [facility] 08/17/24 Tool Crib Attendant Relationship Specialty Start Date End Date Avni Salcedo DO [address] [facility] [address] PCP - General Family Medicine 09/22/13 ThaCatalina, CSR TECHNICIAN.HOSPICE VOLUNTEER [address] [facility] [place] [address] Arts Administrator Or Manager Family [facility] 08/17/24 Tool Crib Attendant Relationship Specialty Start Date End Date Avni Salcedo DO [address] [place], [place] [address] PCP - General [facility] 09/22/13 Catalina Almazan, CSR TECHNICIAN.HOSPICE VOLUNTEER [address] [place], [place] [address] [facility] 08/17/24 Tool Crib Attendant Relationship Specialty Start Date End Date Avni Salcedo DO [address] [place], [place] [address] PCP - [facility] 09/22/13 Catalina Almazan, CSR TECHNICIAN.HOSPICE VOLUNTEER [address] [place], [place] [address] [facility] 08/17/24 Team Status: Active Member Role Status Dates Dr. Avni Salcedo DO Primary Care Provider Active Team Status: Inactive Member Role Status Dates Dr. Avni Salcedo DO Primary Care Provider Active Start: January 02, 2025 End: January 02, 2025 DRY MOLDER. Pepper Sharma Attending Provider Active Star t: January 02, 2025 End: January 02, 2025 DRY MOLDER. Pepper Sharma Referring Provider Active Star t: January 02, 2025 End: January 02, 2025 Team Status: Active Member Role Status Dates Dr. Avni Salcedo DO Primary Care Provider Active Start: February 21, 2025 Dr. Eduardo Hernandez MD Emergency Provider Active S tart: February 21, 2025 Dr. Banadr Pastor DO Admit Provider Active S tart: February 21, 2025 Dr. Bandar Pastor DO Attending Provider Active Start: February 21, 2025 Goals (unrecognized section and content) Goals may be documented in a n alternate sectionGoals may be documented in an alternate section FOR RECORDS PERTAINING TO PATIENTS [...] BE BASED ON THE PRIMARY CLINICAL RECORDS. [facility] [facility]. provides no warranty or guarantee of the accuracy or completeness of information in this document.
[2025-02-21 15:18] LABS: Cholesterol 207 mg/dL (<=200); High Density Lipoprotein 69 mg/dL; Low Density Lipoprotein Calc. 97 mg/dL; Triglycerides 202 mg/dL; Very Low Density Lipoprotein 40 mg/dL (5-40); cholesterol:hdl ratio screen 2.99
--- OUTSIDE RECORDS SUMMARY | 2025-02-21 15:39 | XMS RPT_ITS | CCD ---
Author Organization [facility] Care Team Providers Care Estimator Printing Plate Making Name Role Phone LEIA, INDRA E Unavailable [...] Attending Unavailable JOHN CHOWDHURY Referring Unavailable Jitendra HOG TRADER.Su TORRES Unavailable Tha HOG TRADERCatalina RYAN Unavailable Avni Salcedo Primary Care Unavailable [...] SalcedoDr. Avni hardwick DO Primary Care Provider [phone] NP. Pepper Sharma Attending Provider [phone] NP. Pepper Sharma Referring Provider Dr. Eduardo Hernandez MD Emergency Provider Dr. Bandar Pastor DO Admit Provider Dr. Bandar Pastor DO Attending Provider Allergies Allergy Classification Reported Allergen(s) Allergy Type Date of Onset Reaction(s) Facility (20 sources) beclomethasone; Translations: [BECLOMETHASONE DIPROPIONATE] Drug Allergy 7 Other: See Comments [facility] Repository (20 sources) budesonide / formoterol; Translations: [BUDESONIDE-FORMO TEROL] Drug Allergy 7 Other: See Comments [facility] Repository (20 sources) codeine; Translations: [CODEINE] Drug Allergy 5 GI Upset [facility] Repository (20 sources) fluticasone; Translations: [FLUTICASONE PROPIONATE] Drug Allergy 5 MIGRAINE [facility] Repository (2 sources) fluticasone / salmeterol; Translations: [FLUTICASONE-SALM ETEROL] Drug Allergy 7 AOF [facility] Repository (2 sources) OTHER; Translations: [OTHER] Propensity to adverse reactions (disorder) 1 AOF [facility] Repository (20 sources) TETANUS-DIPHTHERI A TOXOIDS-TD; Translations: [TETANUS-DIPHTHER IA TOXOIDS-TD] Propensity to adverse reactions to drug (disorder) 6 Swelling [facility] Repository (20 sources) DULoxetine; Translations: [DULOXETINE] Drug Allergy 0 Other: See Comments [facility] Work Phone: (20 sources) fluticasone / salmeterol; Translations: [FLUTICASONE PROPION-SALMETERO L] Drug Allergy 7 Other: See Comments [facility] Work Phone: (20 sources) gabapentin; Translations: [GABAPENTIN] Drug Allergy 8 Mental Status Change [facility] Work Phone: (20 sources) Environmental [Other] Propensity to adverse reactions 1 [facility] (20 sources) atomoxetine; Translations: [ATOMOXETINE] Drug Allergy 2 Mental Status Change [facility] Work Phone: (2 sources) Tetanus immune globulin Drug Allergy 3 deltoid swelling/tende r at 15yo; requested Tdap update today [facility] (1 source) atomoxetine Drug Allergy 3 [facility] Repository (1 source) DULoxetine Drug Allergy 3 [facility] (1 source) gabapentin Drug Allergy 3 [facility] (1 source) Tetanus immune globulin Drug Allergy 3 [facility] Repository Medications Current Medications Medication Drug [...] two hours as needed for headache rizatriptan (MAXALT-SCROLL ASSEMBLER) 10 mg disintegrating tablet Indications: Migraine without [...] two hours as needed for headache rizatriptan (MAXALT-SCROLL ASSEMBLER) 10 mg disintegrating tablet Indications: Migraine without [...] Comment on above: Take 1 tablet by teom th twice daily for 14 days. With [...] Agonist Start: 12-01-2016 End: 03-21-2021 Hydrocodone-Acetami nophen ([place]) 1 EACH tablet Discontinued 1 NMA PO [...] Comment on above: Take 1 capsule by [facility] once daily. calcium chloride 0.0014 meq/ml / [...] Comment on above: Take 1 capsule by [facility] once daily. hydrocortisone acetate 10 mg/ml / [...] March 21, 2021 9:35am polyethylene glycol 3350 047615 mg / potassium chloride 2970 mg / sodium bicarbonate 6740 mg / sodium chloride 5860 mg / sodium sulfate 95431 mg powder for oral solution (1 source) [...] (20 sources) Drug therapy finding; Translations: [Other alf (current) drug therapy] Onset: 03-23-2017 03-23-2017 Episodic [...] Auto (Unsp spec) [#/Vol] 1.72 10*3/uL 0.83-4.51 [facility] Absolute neutrophil countOrd ered By: Eduardo Hernandez on 02-21-2025 Neutrophils (Bld) [#/Vol] 4.5 10*3/uL 2.0-7.7 [facility] Anion gap in Serum or Plasma Ordered By: Eduardo Hernandez on 02-21-2025 Anion gap [Moles/Vol] 14 mmol/L 5-15 [facility] Automated lymphocyte count a s percentage of total leukocytesOrdered By: Eduardo Hernandez on 02-21-2025 Lymphocytes/100 WBC Auto (Unsp spec) 24.0 % - [facility] BUN/creatinine ratioOrdered By: Eduardo Hernandez on 02-21-2025 Urea nitrogen/Creatinine [Mass ratio] 17.2 mg/mg 10- [facility] Basophil percentageOrdered B y: Eduardo Hernandez on 02-21-2025 Basophils/100 WBC (Bld) 0.7 % 0-1 [facility] Carbon dioxide, total [Moles /volume] in Central venous bloodOrdered By: Eduardo Hernandez on 02-21-2025 CO2 [Moles/Vol] 21.9 mmol/L 21.0-32.0 [facility] Chloride assayOrdered By: Dave Hernandez on 02-21-2025 Chloride [Moles/Vol] 98 mmol/L 98-108 [facility] Eosinophil percentageOrdered By: Eduardo Hernandez on 02-21-2025 Eosinophils/100 WBC (Bld) 2.8 % 0-5 [facility] Erythrocyte distribution wid th ratioOrdered By: Eduardo Hernandez on 02-21-2025 Erythrocyte distribution width (RBC) [Ratio] 12.6 % 11.6-14.6 [facility] Erythrocyte distribution wid th standard deviationOrdered By: Eduardo Hernandez on 02-21-2025 Erythrocyte distribution width (RBC) [Ratio] 41.1 fl 35.1-43.9 [facility] Glomerular filtration rate ( GFR) estimation/1.73 sq m using serum, plasma, or whole bOrdered By: Eduardo Hernandez on 02-21-2025 GFR/1.73 sq M.predicted among non-blacks MDRD (S/P/Bld) [Vol rate/Area] 57 mL/min/{1.73_m2} Low >60 [facility] Comment on above: mL/min/1.73m2 CKD-EP I Creatinine Equation (2020) Hematocrit Auto (Bld) [Volum e fraction]Ordered By: Eduardo Hernandez on 02-21-2025 Hematocrit (Bld) [Volume fraction] 41.6 % 40-54 [facility] Hemoglobin measurementOrdere d By: Eduardo Hernandez on 02-21-2025 Hemoglobin (Bld) [Mass/Vol] 14.5 g/dL 13.0-16.5 [facility] Immature granulocytes/100 WB C Auto (Bld)Ordered By: Eduardo Hernandez on 02-21-2025 Immature granulocytes/100 WBC (Bld) 0.700 % 0.0-0.9 [facility] Comment on above: IG% - Immature Granu locytes (promyelocytes, myelocytes and metamyelocytes) > 1% indicates that a LEFT SHIFT is Present. MCV (mean corpuscular volume ) determinationOrdered By: Eduardo Hernandez on 02-21-2025 MCV (RBC) [Entitic vol] 89.1 fL 80-94 [facility] Mean corpuscular hemoglobin (MCH) determinationOrdered By: Eduardo Hernandez on 02-21-2025 MCH (RBC) [Entitic mass] 31.0 pg 27.0-32.0 [facility] Mean corpuscular hemoglobin concentration (MCHC) determinationOrdered By: Eduardo Hernandez on 02-21-2025 MCHC (RBC) [Mass/Vol] 34.9 g/dL 32-36 [facility] Mean platelet volume determi nationOrdered By: Eduardo Hernandez on 02-21-2025 Platelet mean volume (Bld) [Entitic vol] 10.0 fL 6.2-12.0 [facility] Monocyte percentageOrdered B y: Eduardo Hernandez on 02-21-2025 Monocytes/100 WBC (Bld) 9.6 % 0-10 [facility] Neutrophil percentageOrdered By: Eduardo Hernandez on 02-21-2025 Neutrophils/100 WBC (Bld) 62.2 % 47-70 [facility] Nucleated red blood cell per centageOrdered By: Eduardo Hernandez on 02-21-2025 Nucleated RBC/100 WBC (Bld) [Ratio] 0 % 0-5 [facility] Platelet countOrdered By: Dave Hernandez on 02-21-2025 Platelets (Bld) [#/Vol] 210 10*3/uL 150-450 [facility] Potassium measurement (mass/ volume)Ordered By: Eduardo Hernandez on 02-21-2025 Potassium (Unsp spec) [Mass/Vol] 4.7 mmol/L 3.3-5.1 [facility] RBC Auto (Bld) [#/Vol]Ordere d By: Eduardo Hernandez on 02-21-2025 RBC (Bld) [#/Vol] 4.67 10*6/uL 4.6-6.2 [facility] Serum creatinine measurement (mass/volume)Ordered By: Eduardo Hernandez on 02-21-2025 Creatinine [Mass/Vol] 1.47 mg/dL High 0.70-1.20 [facility] Serum glucose measurement (m ass/volume)Ordered By: Eduardo Hernandez on 02-21-2025 Glucose [Mass/Vol] 128 mg/dL High 70-99 [facility] Serum or plasma calcium jose elias urement (mass/volume)Ordered By: Eduardo Hernandez on 02-21-2025 Calcium [Mass/Vol] 10.3 mg/dL 7.6-11.0 [facility] Serum or plasma urea nitroge n measurement (mass/volume)Ordered By: Eduardo Hernandez on 02-21-2025 Urea nitrogen [Mass/Vol] 25 mg/dL High 4-19 [facility] Sodium levelOrdered By: Eduardo Hernandez on 02-21-2025 Sodium [Moles/Vol] 135 mmol/L 133-145 [facility] Troponin T.cardiac [Mass/vol ume] in Serum or Plasma by High sensitivity methodOrdered By: Eduardo Hernandez on 02-21-2025 Troponin T.cardiac High sensitivity method [Mass/Vol] 7 ng/L <22 [facility] Troponin T.cardiac High sensitivity method [Mass/Vol] 9 ng/L <22 [facility] White blood cell (WBC) count Ordered By: Eduardo Hernandez on 02-21-2025 WBC (Bld) [#/Vol] 7.2 10*3/uL 4.4-11.0 [facility] CNPNon 02-04-2025 [facility]KE [facility]AI[facility] ([id number]) 1975 M Date Time Provider Department 02/04/25 [facility] During your visit today, we [...] capsule by mouth once daily. - rizatriptan (MAXALT-SCROLL ASSEMBLER) 10 mg disintegrating tablet Take 1 tablet [...] behavior of (more content not included)... Normal [facility] POLYSOMNOGRAM (PSG)/HOME SLE EP APNEA TEST (HSAT)on 01-30-2025 POLYSOMNOGRAM (PSG)/HOME SLEEP APNEA TEST (HSAT) [facility] [address], [address] [place] [address] ; PSG Study Report Name: JAKE CHAIREZ Date of Study: 01/30/2025 CCF#: [id number] Age: 49 (: 1975) ESS: 2 Neck Circ.: 15.5in Height: 61.0in Weight: 160.0lb BMI: 30.2 Referring Provider: YOON MAGANA Sleep History: The patient is a 49 year old male . Medications: Atorvastatin, Budesonide, Cyclobenzaprine, Fexofenadine, Hydrocodone, Hydrocortisone, Ipratropium, Lisinopril, Montelukast, Omeprazole, Potassium Chloride, Promethazine, Rizatriptan, Umeclidinium and Vilanterol Sleep procedure: PSG 4 or more [facility] ([id number]) Procedure: The study was attended continuously by a medical lab technologist. The monitored parameters included: left (E1-M2) [...] By: Dhruv Izquierdo (02/06/2025 2:53:21 PM) Normal [facility] Amylase SerPl-cCncon 025 Amylase [Catalytic activity/Vol] 37 U/L Normal 30-104 [facility] Comment on above: Order Comment: Speci men Type: BLOOD SPECIMENOrdering Facility: [facility] Address: [address] [place] [address] [place] [address] Performed By: #### 1 798-8, 3040-3, 60327-3, 20581-1 ####[facility] [id number] [place] [address] [place] CBC W Auto Differential pane l (Bld)on 01-12-2025 Basophils (Bld) [#/Vol] 0.05 10*3/uL [facility] Basophils/100 WBC (Bld) 1 % [facility] Differential cell count method Nom (Bld) Auto [facility] Eosinophils (Bld) [#/Vol] 0.33 10*3/uL [facility] Eosinophils/100 WBC (Bld) 6.4 % [facility] Erythrocyte distribution width (RBC) [Ratio] 13.1 % 11.5 - 15.0 % [facility] Hematocrit (Bld) [Volume fraction] 40 % 39.0 - 51.0 % [facility] Hemoglobin (Bld) [Mass/Vol] 14.2 g/dL 13.0 - 17.0 g/dL [facility] Immature granulocytes (Bld) [#/Vol] [facility] Immature granulocytes/100 WBC (Bld) 0.2 % [facility] Lymphocytes (Bld) [#/Vol] 1.59 10*3/uL [facility] Lymphocytes/100 WBC (Bld) 30.8 % [facility] MCH (RBC) [Entitic mass] 30.3 pg 26.0 - 34.0 pg [facility] MCHC (RBC) [Mass/Vol] 35.5 g/dL 30.5 - 36.0 g/dL [facility] MCV (RBC) [Entitic vol] 85.5 fL 80.0 - 100.0 fL [facility] Monocytes (Bld) [#/Vol] 0.44 10*3/uL [facility] Monocytes/100 WBC (Bld) 8.5 % [facility] Neutrophils (Bld) [#/Vol] 2.74 10*3/uL [facility] Neutrophils/100 WBC (Bld) 53.1 % [facility] Nucleated RBC (Bld) [#/Vol] [facility] Nucleated RBC/100 WBC (Bld) [Ratio] 0 % /100 WBC [facility] Platelet mean volume (Bld) [Entitic vol] 10.3 fL 9.0 - 12.7 fL [facility] Platelets (Bld) [#/Vol] 222 10*3/uL [facility] RBC (Bld) [#/Vol] 4.68 10*6/uL 4.20 - 6.00 m/uL [facility] WBC (Bld) [#/Vol] 5.16 10*3/uL [facility] Basophils (Bld) [#/Vol] 0.05 10*3/uL Normal <0.11 [facility] Comment on above: Order Comment: Speci men Type: BLOOD SPECIMEN Ordering Facility: [facility] Address: [address] [place] [address] Performed By: #### 5 7021-8 #### [facility] CLIA [id number] [address] [place] [address] [place] Basophils/100 WBC (Bld) 1.0 % Normal [facility] Comment on above: Order Comment: Speci men Type: BLOOD SPECIMEN Ordering Facility: [facility] Address: [address] [place] [address] Performed By: #### 5 7021-8 #### [facility] CLIA [id number] [address] [place] [address] [place] Differential cell count method Nom (Bld) Auto Normal [facility] Comment on above: Order Comment: Speci men Type: BLOOD SPECIMEN Ordering Facility: [facility] Address: [address] [place] [address] Performed By: #### 5 7021-8 #### [facility] CLIA [id number] [address] [place] [address] [place] Eosinophils (Bld) [#/Vol] 0.33 10*3/uL Normal <0.46 [facility] Comment on above: Order Comment: Speci men Type: BLOOD SPECIMEN Ordering Facility: [facility] Address: [address] [place] [address] Performed By: #### 5 7021-8 #### [facility] CLIA [id number] [address] [place] [address] [place] Eosinophils/100 WBC (Bld) 6.4 % Normal [facility] Comment on above: Order Comment: Speci men Type: BLOOD SPECIMEN Ordering Facility: [facility] Address: [address] [place] [address] Performed By: #### 5 7021-8 #### [facility] CLIA [id number] [address] [place] [address] [place] Erythrocyte distribution width (RBC) [Ratio] 13.1 % Normal 11.5-15.0 [facility] Comment on above: Order Comment: Speci men Type: BLOOD SPECIMEN Ordering Facility: [facility] Address: [address] [place] [address] Performed By: #### 5 7021-8 #### [facility] CLIA [id number] [address] [place] [address] [place] Hematocrit (Bld) [Volume fraction] 40.0 % Normal 39.0-51.0 [facility] Comment on above: Order Comment: Speci men Type: BLOOD SPECIMEN Ordering Facility: [facility] Address: [address] [place] [address] Performed By: #### 5 7021-8 #### [facility] CLIA [id number] [address] [place] [address] [place] Hemoglobin (Bld) [Mass/Vol] 14.2 g/dL Normal 13.0-17.0 [facility] Comment on above: Order Comment: Speci men Type: BLOOD SPECIMEN Ordering Facility: [facility] Address: [address] [place] [address] Performed By: #### 5 7021-8 #### [facility] CLIA [id number] [address] [place] [address] [place] Immature granulocytes (Bld) [#/Vol] 10*3/uL Normal <0.10 [facility] Comment on above: Order Comment: Speci men Type: BLOOD SPECIMEN Ordering Facility: [facility] Address: [address] [place] [address] Performed By: #### 5 7021-8 #### [facility] CLIA [id number] [address] [place] [address] [place] Immature granulocytes/100 WBC (Bld) 0.2 % Normal [facility] Comment on above: Order Comment: Speci men Type: BLOOD SPECIMEN Ordering Facility: [facility] Address: [address] [place] [address] Performed By: #### 5 7021-8 #### [facility] CLIA [id number] [address] [place] [address] [place] Lymphocytes (Bld) [#/Vol] 1.59 10*3/uL Normal 1.00-4.00 [facility] Comment on above: Order Comment: Speci men Type: BLOOD SPECIMEN Ordering Facility: [facility] Address: [address] [place] [address] Performed By: #### 5 7021-8 #### [facility] CLIA [id number] [address] [place] [address] [place] Lymphocytes/100 WBC (Bld) 30.8 % Normal [facility] Comment on above: Order Comment: Speci men Type: BLOOD SPECIMEN Ordering Facility: [facility] Address: [address] [place] [address] Performed By: #### 5 7021-8 #### [facility] CLIA [id number] [address] [place] [address] [place] MCH (RBC) [Entitic mass] 30.3 pg Normal 26.0-34.0 [facility] Comment on above: Order Comment: Speci men Type: BLOOD SPECIMEN Ordering Facility: [facility] Address: [address] [place] [address] Performed By: #### 5 7021-8 #### [facility] CLIA [id number] [address] [place] [address] [place] MCHC (RBC) [Mass/Vol] 35.5 g/dL Normal 30.5-36.0 [facility] Comment on above: Order Comment: Speci men Type: BLOOD SPECIMEN Ordering Facility: [facility] Address: [address] [place] [address] Performed By: #### 5 7021-8 #### [facility] CLIA [id number] [address] [place] [address] [place] MCV (RBC) [Entitic vol] 85.5 fL Normal 80.0-100.0 [facility] Comment on above: Order Comment: Speci men Type: BLOOD SPECIMEN Ordering Facility: [facility] Address: [address] [place] [address] Performed By: #### 5 7021-8 #### [facility] CLIA [id number] [address] [place] [address] [place] Monocytes (Bld) [#/Vol] 0.44 10*3/uL Normal <0.87 [facility] Comment on above: Order Comment: Speci men Type: BLOOD SPECIMEN Ordering Facility: [facility] Address: [address] [place] [address] Performed By: #### 5 7021-8 #### [facility] CLIA [id number] [address] [place] [address] [place] Monocytes/100 WBC (Bld) 8.5 % Normal [facility] Comment on above: Order Comment: Speci men Type: BLOOD SPECIMEN Ordering Facility: [facility] Address: [address] [place] [address] Performed By: #### 5 7021-8 #### [facility] CLIA [id number] [address] [place] [address] [place] Neutrophils (Bld) [#/Vol] 2.74 10*3/uL Normal 1.45-7.50 [facility] Comment on above: Order Comment: Speci men Type: BLOOD SPECIMEN Ordering Facility: [facility] Address: [address] [place] [address] Performed By: #### 5 7021-8 #### [facility] CLIA [id number] [address] [place] [address] [place] Neutrophils/100 WBC (Bld) 53.1 % Normal [facility] Comment on above: Order Comment: Speci men Type: BLOOD SPECIMEN Ordering Facility: [facility] Address: [address] [place] [address] Performed By: #### 5 7021-8 #### [facility] CLIA [id number] [address] [place] [address] [place] Nucleated RBC (Bld) [#/Vol] 10*3/uL Normal <0.01 [facility] Comment on above: Order Comment: Speci men Type: BLOOD SPECIMEN Ordering Facility: [facility] Address: [address] [place] [address] Performed By: #### 5 7021-8 #### [facility] CLIA [id number] [address] [place] [address] [place] Nucleated RBC/100 WBC (Bld) [Ratio] 0.0 /100 WBC Normal [facility] Comment on above: Order Comment: Speci men Type: BLOOD SPECIMEN Ordering Facility: [facility] Address: [address] [place] [address] Performed By: #### 5 7021-8 #### [facility] CLIA [id number] [address] [place] [address] [place] Platelet mean volume (Bld) [Entitic vol] 10.3 fL Normal 9.0-12.7 [facility] Comment on above: Order Comment: Speci men Type: BLOOD SPECIMEN Ordering Facility: [facility] Address: [address] [place] [address] Performed By: #### 5 7021-8 #### [facility] CLIA [id number] [address] [place] [address] [place] Platelets (Bld) [#/Vol] 222 10*3/uL Normal 150-400 [facility] Comment on above: Order Comment: Speci men Type: BLOOD SPECIMEN Ordering Facility: [facility] Address: [address] [place] [address] Performed By: #### 5 7021-8 #### [facility] CLIA [id number] [address] [place] [address] [place] RBC (Bld) [#/Vol] 4.68 10*6/uL Normal 4.20-6.00 [facility] Comment on above: Order Comment: Speci men Type: BLOOD SPECIMEN Ordering Facility: [facility] Address: [address] [place] [address] Performed By: #### 5 7021-8 #### [facility] CLIA [id number] [address] [place] [address] [place] WBC (Bld) [#/Vol] 5.16 10*3/uL Normal 3.70-11.00 [facility] Comment on above: Order Comment: Speci men Type: BLOOD SPECIMEN Ordering Facility: [facility] Address: [address] [place] [address] Performed By: #### 5 7021-8 #### [facility] [place] [id number] [address] [place] [address] [place] CNOVon 01-12-2025 CNOV Office Visit (FAMPWS ) JAKE CHAIREZ ([id number]) 1975 M Date Time Provider Department 01/12/25 [...] 1 tabl (more content not included)... Normal [facility] HbA1c (Bld)on 01-12-2025 Average glucose Estimated from glycated hemoglobin (Bld) [Mass/Vol] 157 mg/dL Normal [facility] Comment on above: Order Comment: Mk gilmore Type: BLOOD SPECIMEN Ordering Facility: [facility] Address: [address] [place] [address] Result Comment: eAG: (Estimated average glucose) is a calculated value from HgbA1c and is national sales representative of the average blood glucose level in the last 2-3 month period. Performed By: #### 5 5454-3 #### [facility] CLIA [id number] [address] [place] [address] [place] HbA1c (Bld) [Mass fraction] 7.1 % High 4.3-5.6 [facility] Comment on above: Order Comment: Mk gilmore Type: BLOOD SPECIMEN Ordering Facility: [facility] Address: [address] [place] [address] Result Comment: Amer ican Diabetes Association guidelines indicate that patients with HgbA1c in the range 5.7-6.4% are at increased risk for development of diabetes, and intervention by lifestyle modification may be beneficial. HgbA1c greater or equal to 6.5% is considered diagnostic of diabetes. Performed By: #### 5 5454-3 #### [facility] CLIA [id number] [address] [place] [address] [place] Hepatic function 2000 panelo n 01-12-2025 Albumin [Mass/Vol] 4.7 g/dL Normal 3.9-4.9 [facility] Comment on above: Order Comment: Mk gilmore Type: BLOOD SPECIMENOrdering Facility: [facility] Address: [address] [place] [address] Performed By: #### 1 798-8, 3040-3, 07540-5, 12986-3 ####[facility] [id number] [place] [address] [place] ALP [Catalytic activity/Vol] 116 U/L High 38-113 [facility] Comment on above: Order Comment: Speci men Type: BLOOD SPECIMENOrdering Facility: [facility] Address: [address] [place] [address] Performed By: #### 1 798-8, 3040-3, 54471-2, 04206-6 ####[facility]IA [id number] [place] [address] [place] ALT [Catalytic activity/Vol] 37 U/L Normal 10-54 [facility] Comment on above: Order Comment: Speci men Type: BLOOD SPECIMENOrdering Facility: [facility] Address: [address] [place] [address] Performed By: #### 1 798-8, 3040-3, 12438-3, 77936-2 ####[facility] [id number] [place] [address] [place] AST [Catalytic activity/Vol] 26 U/L Normal 14-40 [facility] Comment on above: Order Comment: Speci men Type: BLOOD SPECIMENOrdering Facility: [facility] Address: [address] [place] [address] Performed By: #### 1 798-8, 3040-3, 93486-2, 14866-0 ####[facility]IA [id number] [place] [id number] [place] Bilirubin [Mass/Vol] 0.7 mg/dL Normal 0.2-1.3 [facility] Comment on above: Order Comment: Speci men Type: BLOOD SPECIMENOrdering Facility: [facility] Address: [address] [place] [address] Performed By: #### 1 798-8, 3040-3, 76042-5, 19839-3 ####[facility] [id number] [place] [address] [place] Bilirubin.conjugated [Mass/Vol] 0.2 mg/dL Normal <0.3 [facility] Comment on above: Order Comment: Speci men Type: BLOOD SPECIMENOrdering Facility: [facility] Address: [address] [place] [address] Performed By: #### 1 798-8, 3040-3, 45250-0, 08199-1 ####[facility] [id number] [place] [address] [place] Protein [Mass/Vol] 7.2 g/dL Normal 6.3-8.0 [facility] Comment on above: Order Comment: Speci men Type: BLOOD SPECIMENOrdering Facility: [facility] Address: [address] [place] [address] Performed By: #### 1 798-8, 3040-3, 08658-1, 30509-7 ####[facility] [id number] [place] [address] [place] Lipase SerPl-cCncon 01-13-20 25 Lipase [Catalytic activity/Vol] 14 U/L Low 16-61 [facility] Comment on above: Order Comment: Speci men Type: BLOOD SPECIMENOrdering Facility: [facility] Address: [address] [place] [address] Performed By: #### 1 798-8, 3040-3, 33079-0, 32596-7 ####[facility] [id number] [place] [address] [place] Lipid 1996 panelon 5 Cholesterol [Mass/Vol] 179 mg/dL Normal <200 [facility] Comment on above: Order Comment: Speci men Type: BLOOD SPECIMENOrdering Facility: [facility] Address: [address] [place] [address] Result Comment: <200 mg/dL, Desirable 200-239 mg/dL, Borderline high >239 mg/dL, High Performed By: #### 1 798-8, 3040-3, 47710-2, 17849-4 ####[facility]IA [id number] [facility] [id number], [place] [address] [place] Cholesterol in HDL [Mass/Vol] 60 mg/dL Normal >39 [facility] Comment on above: Order Comment: Speci men Type: BLOOD SPECIMENOrdering Facility: [facility] Address: [address] [place] [address] Result Comment: 40-5 9 mg/dL, Acceptable >59 mg/dL, High: Negative risk factor for coronary heart disease <40 mg/dL, Low: Positive risk factor for coronary heart disease Performed By: #### 1 798-8, 3040-3, 43239-6, 96214-9 ####[facility] [id number] [facility] [id number], [place] [address] [place] Cholesterol in LDL [Mass/Vol] 86 mg/dL Normal <100 [facility] Comment on above: Order Comment: Speci men Type: BLOOD SPECIMENOrdering Facility: [facility] Address: [address] [place] [address] Result Comment: <100 mg/dL, Optimal 100-129 mg/dL, Near optimal/above optimal 130-159 mg/dL, Borderline high 160-189 mg/dL, High >189 mg/dL, Very high Secondary prevention optimal LDL Cholesterol levels are recommended to be <70 mg/dL LDL cholesterol is calculated using the Ware-NIH equation. Performed By: #### 1 798-8, 3040-3, 47981-1, 26995-5 ####[facility] [id number] [facility] [place] [id number] [address] [place] Cholesterol in LDL/Cholesterol in HDL [Mass ratio] 1.43 {ratio} Normal <2.54 [facility] Comment on above: Order Comment: Speci men Type: BLOOD SPECIMENOrdering Facility: [facility] Address: [address] [place] [address] Result Comment: Fern gao: 1. National Cholesterol Education Program ATP III Guideline At-A-Glance Quick Desk Reference: National Heart, Lung, and Blood Klemme. National Institutes of Health. 2001: NIH Publication No. 01-3305. 2. An International Atherosclerosis Society position paper: global recommendations for the management of dyslipidemia: executive summary, Atherosclerosis. 2014: 232(2):410-413. Performed By: #### 1 798-8, 3040-3, 68983-3, 83633-0 ####[facility] [id number] [place] [address] [place] Cholesterol in VLDL [Mass/Vol] 31 mg/dL High <30 [facility] Comment on above: Order Comment: Speci men Type: BLOOD SPECIMENOrdering Facility: [facility] Address: [address] [place] [address] Performed By: #### 1 798-8, 3040-3, 78571-6, 83753-9 ####[facility]IA [id number] [place] [address] [place] Cholesterol non HDL [Mass/Vol] 119 mg/dL Normal <130 [facility] Comment on above: Order Comment: Jankii men Type: BLOOD SPECIMENOrdering Facility: [facility] Address: [address] [place] [address] Result Comment: <130 mg/dL, Optimal 130-159 mg/dL, Near optimal/above optimal 160-189 mg/dL, Borderline high 190-219 mg/dL, High >219 mg/dL, Very high Secondary prevention optimal non HDL Cholesterol levels are recommended to be <100 mg/dL Performed By: #### 1 798-8, 3040-3, 74678-5, 65619-5 ####[facility]CLIA [id number] [address] [address] [place] Cholesterol.total/Cho lesterol in HDL [Mass ratio] 2.98 {ratio} Normal <5.10 [facility] Comment on above: Order Comment: Speci men Type: BLOOD SPECIMENOrdering Facility: [facility] Address: [address] [place] [address] Performed By: #### 1 798-8, 3040-3, 50395-7, 90885-7 ####[facility] [id number] [address] FASTING TIME 12 hrs Normal [facility] Comment on above: Order Comment: Speci men Type: BLOOD SPECIMENOrdering Facility: [facility] Address: [address] [place] [address] Performed By: #### 1 798-8, 3040-3, 34776-6, 08752-0 ####[facility]IA [id number] [address] Triglyceride [Mass/Vol] 196 mg/dL High <150 [facility] Comment on above: Order Comment: Speci men Type: BLOOD SPECIMENOrdering Facility: 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 Similarly prominent spleen compared to CT abdomen 2011, MRI lumbar spine 2017. Borderline splenomegaly on those previous exams; cannot be radiographically measured. IMPRESSION: No acute findings Similarly prominent spleen as above Squaring Shear Operator: ELMO Transcribe Date/Time: Jan 12 2025 3:31P Dictated by : NELDA GU MD This examination was interpreted and the report reviewed and electronically signed by: NELDA GU MD on Jan 12 2025 3:46PM EST [id number] Normal [facility] XR Ribs - left Views and Chrissie st PAon 01-12-2025 IMPRESSION: No acute findings Similarly prominent spleen as above Squaring Shear Operator: PSC Transcribe Date/Time: Jan 12 2025 3:31P [...] of the lungs compared to CT chest [employer] Occupational Therapist/topogram 06/23/2024. Similarly prominent spleen compared to CT abdomen 2012, MRI lumbar spine 2018. Borderline splenomegaly on those previous exams; cannot be radiographically measured. DIVISION OF RADIOLOGY Provider, [facility] - 01/12/2025 * * *Final Report* * [...] of the lungs compared to CT chest [employer] Occupational Therapist/topogram 06/23/2024. Similarly prominent spleen compared to CT abdomen 2012, MRI lumbar spine 2018. Borderline splenomegaly on those previous exams; cannot be radiographically measured. IMPRESSION IMPRESSION: No acute findings Similarly prominent spleen as above Squaring Shear Operator: PSCB Transcribe Date/Time: Jan 12 2025 3:31P Dictated by : NELDA GU MD This examination was interpreted and the report reviewed and electronically signed by: NELDA GU MD on Jan 12 2025 3:46PM EST [facility] Radiology Study observation (narrative) [facility] XR Ribs - left Views and Chrissie st PAOrdered By: Ccf Provider on 01-12-2025 [facility] CNOVon 01-08-2025 CNOV Office Visit (FAMPWS ) JAKE CHAIREZ ([id number]) 1975 M Date Time Provider Department 01/08/25 2:20 PM [facility] During your visit today, we recorded the following information about you: Pulse Blood pressure Weight 108/minute 126/87 75 kg Tavon Valencia APRN.EARTH BORING MACHINE OPERATOR 01/08/2025 2:21 PM Signed Chief Complaint [...] daily. i (more content not included)... Normal [facility] CNOVon 01-07-2025 CNOV Office Visit (PULMWS ) JAKE CHAIREZ ([id number]) 1975 M Date Time Provider Department 01/07/25 3:00 PM YOON MAGANA PULMWS During your visit today, we recorded the following information about you: Pulse Respiration Blood pressure Weight 117/minute 15/minute 122/78 75.3 kg Height 1.676 m Yoon Magana, HOG TRADER.EARTH BORING MACHINE OPERATOR 01/07/2025 8:14 PM Signed Pulmonary Medicine [...] history of colonic polyps Sarcoidosis of lung ([facility]) 04/2017 Transbronchial biopsy, transbronchial needle aspiration biopsy of nodes, and bronchoalveolar lavage 04/2017. Type 2 diabetes ([facility]) 10/26/2022 Unspecified asthma(493.90) Allergies: Advair Diskus [...] known a (more content not included)... Normal [facility] NITRIC OXIDE, EXHALEDon 04-3 -2024 Amos [...] DATE: January 07, 2025 TIME: 2:50 PM [facility] NITRIC OXIDE, EXHALEDOrdered By: Amos Moore on 01-07-2025 [facility] SPIROMETRY - BASELINE AND PO ST DILATORon 01-07-2025 SPIROMETRY - BASELINE AND POST DILATOR [facility] [address] [address] Test Date: 2025-01-07 Pat Name: JAKE GARCIAISER Department: Room: Gender: Male Downstairs Maid: : 1975 Requested By: Order Number: [id number] Reading MD: Shayla Rogers MD Interpretive Statements [...] 12:49:18 EDT by Shayla Rogers MD ID: [id number] Name: JAKE CHAIREZ Race: White Ht: 65.00 [...] 90-100 0.59 92 FIVC 3.98 4.10 3 ZFS21-27 0.90 1.64 3.07 4.95 29 -2.79 1.74 [...] 80 % FEV1/FVC_LLN (%) : 69 % FAR10_QLD (L/S) : 3.18 L/S PLW30_WQNX (L/S) : 5.26 L/S KBW29_TKR (L/S) : 0.34 L/S BTK23_PNNW (L/S) : 0.72 L/S QVX59_QLLB (L/S) : 1.01 L/S JBP12_CRW (L/S) : 0.44 L/S DMN71_WCM (L/S) : 2.17 L/S YSC95-54%_PRE (L/S) : 0.90 L/S PXT60-72%_POST (L/S) : 1.74 L/S GCB24-41%_PRED (L/S) : 3.07 L/S PZM14-44%_LLN (L/S) : 1.64 L/S PEF_PRE (L/S) : 6.88 L/S PEF_POST (L/S) : 8.68 L/S PEFMAX_LLN (L/S) : 6.65 L/S PEFMAX_ULN (L/S) : 10.64 L/S FET_PRE (S) : 14.86 S FET_POST (S) : 11.90 S Normal [facility] PT D/C Summary (1)on 025 PT D/C Summary (1) [facility] Physical Therapy [address] [place] [address] / REHABILITATION SERVICES DISCHARGE SUMMARY MR#: [id number] Acct: [id number] Name: JAKE CHAIREZ Rep #: [id number] : 1975 49 From: Calvin Bustamante PT, ATC Referring Dr.: Pepper Sharma Status: REG RCR Insurance: [facility] SELF PAY INSURANCE Discharge Summary D/C summary: It has been my pleasure to treat JAKE CHAIREZ referred by DOLL WIG MAKER. Pepper Sharma, with the diagnosis of LBP [...] please feel free to call me at [phone]. Thank you for the referral of this patient. Sincerely, Calvin Bustamante, PT, ATC Balance/Gait/Functional tests Balance/Special Test Scores Oswestry Low Back Score: 36 Improvement % Improvement: 0 01/02/25 1454 CC: Pepper Sharma; Dr. Avni Salcedo, [facility] Signed Normal [facility] Inital Evaluation (1) - PTon 12-11-2024 Inital Evaluation (1) - PT [facility] Physical Therapy [address] [place] [address] / REHABILITATION SERVICES INITIAL EVALUATION MR#: [id number] Acct: [id number] Name: JAKE CHAIREZ Rep #: [id number] : 1975 49 From: Calvin Bustamante PT, ATC Referring Dr.: Pepper Sharma Status: REG RCR Insurance: [facility] SELF PAY INSURANCE Patient's Visit Information Visit Information Visit Information: JAKE CHAIREZ is a 49 year old M referred to Physical Therapy by DOLL WIG MAKER. Pepper Sharma with a diagnosis of LBP. [...] to be FAXED BACK to us at [phone] for Medicare purposes. For Medicare only, by signing this I certify the plan of care. Please let me know if there are questions or concerns regarding this plan of care. Physician Signature: _Date: 12/11/24 1624 CC: Pepper Sharma; Dr. Avni Salcedo DO [facility] Signed Normal [facility] CNOVon 10-09-2024 OV Office Visit (PULMWS ) JAKE CHAIREZ ([id number]) 1975 M Date Time Provider Department 10/09/24 2:45 PM SHAYLA ROGERS PULMWS During your visit today, we recorded the following information about you: Pulse Respiration Blood pressure Weight 101/minute 18/minute 118/72 75.3 kg Shayla Rogers MD 10/09/2024 4:40 PM Signed . Respiratory Klemme Note Patient name: Jake Chairez PCP: Avni [...] DATE OF EXAM: Jun 23 2024 3:30PM [facility] 0541 - CT CHEST WO IVCON [...] history of colonic polyps Sarcoidosis of lung ([facility]) 04/2017 Transbronchial biopsy, transbronchial needle aspiration biopsy of nodes, and bronchoalveolar lavage 04/2017. Type 2 diabetes ([facility]) 10/26/2022 Unspecified asthma(493.90) ALLERGIES Allergen Reactions [...] mg tablet (more content not included)... Normal [facility] CNOVon 10-06-2024 CNOV Office Visit (PULMWS ) JAKE CHAIREZ ([id number]) 1975 M Date Time Provider Department 10/06/24 [...] 50% of waking hrs. Modified Medical Research [place] Dyspnea Scale (MMRC) I am too breathless [...] 20-100 mcg/actua (more content not included)... Normal [facility] Robert 10-06-2024 [facility] (INTMWS) JAKE CHAIREZ ([id number]) 1975 M Date Time Provider Department 10/06/24 AVNI SALCEDO During your visit today, we recorded the following information about you: Kailyn RubioAURORA 10/06/2024 3:55 PM Signed Electronic PA rec'd and completed for budesonide. This was approved rior authorization approved Payer: [facility] Note from payer: Your PA request for [id number] was approved for 365 days. The PA# assigned is [id number]. Approval Details Authorization number: [id number] Authorized from October 06, 2024 to October 05, 2025 Electronic appeal: Not supported View History Pharmacy Benefits Open Encounter JAKE CHAIREZ - MEDICAID ([facility]) Covered: Retail, Mail Order Unknown: Specialty, Long-Term Care BIN: [id number] : 1975 Group ID: PCN: [id number] Legal sex: M Group name: Address: [place] [id number] Medication Being Authorized budesonide (PULMICORT) 0.5 mg/2 mL nebulizer solution Use 2 mL via nebulizer once daily. Dispense: 2 mL Refills: 2 Start: 10/06/2024 Class: Normal Diagnoses: Asthma, moderate persistent, well-controlled; Chronic allergic rhinitis This order has been released to its destination. To be filled at: [facility] - [place], [place] Pharmacy notified. Allergies As of Date: [...] Date Reviewed: 10/06/2024 Reviewed by: Elmira Farrar APRN.EARTH BORING MACHINE OPERATOR - Fully Assessed Reason for Visit: Insurance Authorization [[id number]] Prescriptions as of 10/06/2024 - budesonide (PULMICORT) [...] capsule by mouth once daily. - rizatriptan (MAXALT-SCROLL ASSEMBLER) 10 mg disintegrating tablet Take 1 tablet [...] [J4* C (more content not included)... Normal [facility] 09-01-2024 [facility]FAMPWS[facility] JAKE CHAIREZ ([id number]) 1975 M Date Time Provider Department 09/01/24 [facility] During your visit today, we recorded [...] capsule by mouth once daily. - rizatriptan (MAXALT-SCROLL ASSEMBLER) 10 mg disintegrating tablet Take 1 tablet [...] nevus [D22. (more content not included)... Normal [facility] 08-18-2024 [facility] (FAMPWS) JAKE CHAIREZ ([id number]) 1975 M Date Time Provider Department 08/18/24 [facility] During your visit today, we recorded [...] capsule by mouth once daily. - rizatriptan (MAXALT-SCROLL ASSEMBLER) 10 mg disintegrating tablet Take 1 tablet [...] 04/19/2013 M (more content not included)... Normal [facility] CBC panel Auto (Bld)on 08-15 Erythrocyte distribution width (RBC) [Ratio] 11.9 % Normal 11.5-15.0 [facility] Comment on above: Order Comment: Speci men Type: BLOOD SPECIMENOrdering Facility: [facility] Address: [address] [place] [address] Performed By: #### 5 8410-2 ####[facility]IA [id number] [place] [address] [place] Hematocrit (Bld) [Volume fraction] 39.8 % Normal 39.0-51.0 [facility] Comment on above: Order Comment: Speci men Type: BLOOD SPECIMENOrdering Facility: [facility] Address: [address] [place] [address] Performed By: #### 5 8410-2 ####[facility]CLIA [id number] [place] [address] [place] Hemoglobin (Bld) [Mass/Vol] 13.4 g/dL Normal 13.0-17.0 [facility] Comment on above: Order Comment: Speci men Type: BLOOD SPECIMENOrdering Facility: [facility] Address: [address] [place] [address] Performed By: #### 5 8410-2 ####[facility]IA [id number] [place] [address] [place] MCH (RBC) [Entitic mass] 30.5 pg Normal 26.0-34.0 [facility] Comment on above: Order Comment: Speci men Type: BLOOD SPECIMENOrdering Facility: [facility] Address: [address] [place] [address] Performed By: #### 5 8410-2 ####[facility] [id number] [place] [address] [place] MCHC (RBC) [Mass/Vol] 33.7 g/dL Normal 30.5-36.0 [facility] Comment on above: Order Comment: Speci men Type: BLOOD SPECIMENOrdering Facility: [facility] Address: [address] [place] [address] Performed By: #### 5 8410-2 ####[facility] [id number] [place] [address] [place] MCV (RBC) [Entitic vol] 90.5 fL Normal 80.0-100.0 [facility] Comment on above: Order Comment: Speci men Type: BLOOD SPECIMENOrdering Facility: [facility] Address: [address] [place] [address] Performed By: #### 5 8410-2 ####[facility] [id number] [place] [address] [place] Nucleated RBC (Bld) [#/Vol] 10*3/uL Normal <0.01 [facility] Comment on above: Order Comment: Speci men Type: BLOOD SPECIMENOrdering Facility: [facility] Address: [address] [place] [address] Performed By: #### 5 8410-2 ####[facility] [id number] [place] [address] [place] Platelet mean volume (Bld) [Entitic vol] 9.8 fL Normal 9.0-12.7 [facility] Comment on above: Order Comment: Speci men Type: BLOOD SPECIMENOrdering Facility: [facility] Address: [address] [place] [address] Performed By: #### 5 8410-2 ####[facility]CLIA [id number] [place] [address] [place] Platelets (Bld) [#/Vol] 247 10*3/uL Normal 150-400 [facility] Comment on above: Order Comment: Speci men Type: BLOOD SPECIMENOrdering Facility: [facility] Address: [address] [place] [address] Performed By: #### 5 8410-2 ####[facility]CLIA [id number] [place] [address] [place] RBC (Bld) [#/Vol] 4.40 10*6/uL Normal 4.20-6.00 [facility] Comment on above: Order Comment: Speci men Type: BLOOD SPECIMENOrdering Facility: [facility] Address: [address] [place] [address] Performed By: #### 5 8410-2 ####[facility]CLIA [id number] [place] [address] [place] WBC (Bld) [#/Vol] 6.83 10*3/uL Normal 3.70-11.00 [facility] Comment on above: Order Comment: Speci men Type: BLOOD SPECIMENOrdering Facility: [facility] Address: [address] [place] [address] Performed By: #### 5 8410-2 ####[facility] LABCLIA [id number] [place] [address] [place] Comprehensive metabolic 2000 panelon 08-15-2024 Albumin [Mass/Vol] 4.6 g/dL Normal 3.9-4.9 [facility] Comment on above: Order Comment: Speci men Type: BLOOD SPECIMEN Ordering Facility: [facility] Address: [address] [place] [id number] Performed By: #### 5 5454-3 #### [facility] CLIA [id number] [address] [place] [address] [place] ALP [Catalytic activity/Vol] 127 U/L High 38-113 [facility] Comment on above: Order Comment: Speci men Type: BLOOD SPECIMEN Ordering Facility: [facility] Address: [address] [place] [address] Performed By: #### 5 5454-3 #### [facility] CLIA [id number] [address] [place] [address] [place] ALT [Catalytic activity/Vol] 57 U/L High 10-54 [facility] Comment on above: Order Comment: Speci men Type: BLOOD SPECIMEN Ordering Facility: [facility] Address: [address] [place] [address] Performed By: #### 5 5454-3 #### [facility] CLIA [id number] [address] [place] [address] [place] Anion gap [Moles/Vol] 14 mmol/L Normal 8-15 [facility] Comment on above: Order Comment: Speci men Type: BLOOD SPECIMEN Ordering Facility: [facility] Address: [address] [place] [address] Performed By: #### 5 5454-3 #### [facility] CLIA [id number] [address] [place], [place] [address] [place] AST [Catalytic activity/Vol] 28 U/L Normal 14-40 [facility] Comment on above: Order Comment: Speci men Type: BLOOD SPECIMEN Ordering Facility: [facility] Address: [address] [place], [place] [address] Performed By: #### 5 5454-3 #### [facility] CLIA [id number] [address] [place], [place] [address] [place] Bilirubin [Mass/Vol] 0.4 mg/dL Normal 0.2-1.3 [facility] Comment on above: Order Comment: Speci men Type: BLOOD SPECIMEN Ordering Facility: [facility] Address: [address] [place] [address] Performed By: #### 5 5454-3 #### [facility] CLIA [id number] [address] [place] [address] [place] Calcium [Mass/Vol] 10.2 mg/dL Normal 8.5-10.2 [facility] Comment on above: Order Comment: Speci men Type: BLOOD SPECIMEN Ordering Facility: [facility] Address: [address] [place] [address] Performed By: #### 5 5454-3 #### [facility] CLIA [id number] [address] [place] [address] [place] Chloride [Moles/Vol] 101 mmol/L Normal 98-107 [facility] Comment on above: Order Comment: Speci men Type: BLOOD SPECIMEN Ordering Facility: [facility] Address: [address] [place] [address] Performed By: #### 5 5454-3 #### [facility] CLIA [id number] [address] [place] [address] [place] CO2 [Moles/Vol] 25 mmol/L Normal 22-30 [facility] Comment on above: Order Comment: Speci men Type: BLOOD SPECIMEN Ordering Facility: [facility] Address: [address] [place], [place] [address] Performed By: #### 5 5454-3 #### [facility] CLIA [id number] [address] [place] [address] [place] Creatinine [Mass/Vol] 0.90 mg/dL Normal 0.73-1.22 [facility] Comment on above: Order Comment: Speci men Type: BLOOD SPECIMEN Ordering Facility: [facility] Address: [address] [place] [address] Performed By: #### 5 5454-3 #### [facility] CLIA [id number] [address] [place] [address] [place] Creatinine and Glomerular filtration rate.predicted panel (S/P/Bld) 103 mL/min/1.73m??? Normal >=60 [facility] Comment on above: Order Comment: Mk gilmore Type: BLOOD SPECIMEN Ordering Facility: [facility] Address: [address] [place] [address] Result Comment: Darling mated Glomerular Filtration Rate [...] GFR. Performed By: #### 5 5454-3 #### [facility] CLIA [id number] [address] [place] [address] [place] Glucose [Mass/Vol] 138 mg/dL High 74-99 [facility] Comment on above: Order Comment: Mk gilmore Type: BLOOD SPECIMEN Ordering Facility: [facility] Address: [address] [place] [address] Result Comment: The [place] Diabetes Association (ADA) provides guidance for cutoff [...] Standards of Medical Care in Diabetes 2016, [place] [employer]. Diabetes Care. 2016.39(Suppl 1). Performed By: #### 5 5454-3 #### [facility] CLIA [id number] [address] [place] [address] [place] Potassium [Moles/Vol] 4.0 mmol/L Normal 3.7-5.1 [facility] Comment on above: Order Comment: Speci men Type: BLOOD SPECIMEN Ordering Facility: [facility] Address: [address] [place] [address] Performed By: #### 5 5454-3 #### [facility] CLIA [id number] [address] [place], [place] [address] [place] Protein [Mass/Vol] 7.0 g/dL Normal 6.3-8.0 [facility] Comment on above: Order Comment: Speci men Type: BLOOD SPECIMEN Ordering Facility: [facility] Address: [address] [place] [address] Performed By: #### 5 5454-3 #### [facility] CLIA [id number] [address] [place], [place] [address] [place] Sodium [Moles/Vol] 140 mmol/L Normal 136-144 [facility] Comment on above: Order Comment: Speci men Type: BLOOD SPECIMEN Ordering Facility: [facility] Address: [address] [place] [address] Performed By: #### 5 5454-3 #### [facility] CLIA [id number] [address] [place], [place] [address] [place] Urea nitrogen [Mass/Vol] 13 mg/dL Normal 9-24 [facility] Comment on above: Order Comment: Speci men Type: BLOOD SPECIMEN Ordering Facility: [facility] Address: [address] [place], [place] [address] Performed By: #### 5 5454-3 #### [facility] CLIA [id number] [address] [place] [address] [place] [facility] Ferritin [Mass/Vol] 77.4 ng/mL Normal 30.3-565.7 [facility] Comment on above: Order Comment: Speci men Type: BLOOD SPECIMEN Ordering Facility: [facility] Address: [address] [place] [address] Performed By: #### 5 5454-3 #### [facility] CLIA [id number] [address] [place] [address] [place] Iron and Iron binding capaci ty panelon 08-15-2024 Iron [Mass/Vol] 77 ug/dL Normal 41-186 [facility] Comment on above: Order Comment: Speci men Type: BLOOD SPECIMEN Ordering Facility: [facility] Address: [address] [place] [address] Performed By: #### 5 5454-3 #### [facility] CLIA [id number] [address] [place] [address] [place] [facility] Iron binding capacity [Mass/Vol] 369 ug/dL Normal 232-386 [facility] Comment on above: Order Comment: Speci men Type: BLOOD SPECIMEN Ordering Facility: [facility] Address: [address] [place] [address] Performed By: #### 5 5454-3 #### [facility] CLIA [id number] [address] [place] [address] [place] Iron/TIBC [Molar ratio] 20.9 % Normal 15.0-57.0 [facility] Comment on above: Order Comment: Speci men Type: BLOOD SPECIMEN Ordering Facility: [facility] Address: [address] [place] [address] Performed By: #### 5 5454-3 #### [facility] CLIA [id number] [address] [place] [address] [place] Robert 07-02-2024 LUIS Telephone (FAMPWS) JAKE CHAIREZ ([id number]) 1975 M Date Time Provider Department 07/02/24 [...] by RECTAL route twice daily. - rizatriptan (MAXALT-SCROLL ASSEMBLER) 10 mg disintegrating tablet Take 1 tablet [...] nevus of (more content not included)... Normal [facility] Robert 06-26-2024 MELISSAN Telephone (FAMPWS) JAKE CHAIREZ ([id number]) 1975 Lita Date Time Provider Department 06/26/24 [...] [E87.6] Order(s):COMPREHENSIVE METABOLIC PANEL [SQCMP] Order #: [id number] FUTURE Prescriptions as of 06/26/2024 - cyclobenzaprine [...] by RECTAL route twice daily. - rizatriptan (MAXALT-SCROLL ASSEMBLER) 10 mg disintegrating tablet Take 1 tablet [...] mention o (more content not included)... Normal [facility] ECHOon 06-26-2024 Echocardiography Echocardiography Rep ort: Transthoracic Echo [facility] Date of service: 06/26/2024 3:26:54 PM Ordering physician: AVNI SALCEDO Indication: Hypertension Technologist: Yolanda Foster [facility] Interpreting physician: Maury Huntley MD PATIENT: [...] * * * Final * * * [employer] Image : [id number] goDynamicsSISUID [facility] Telephone (FAMPWS) JAKE CHAIREZ ([id number]) 1975 M Date Time Provider Department 06/24/24 AVNI SALCEDO [facility] During your visit today, we [...] Signed Patient active MyChart. Patient notified via [employer] message. Liz Alvarenga MA Allergies As of [...] by RECTAL route twice daily. - rizatriptan (MAXALT-SCROLL ASSEMBLER) 10 mg disintegrating tablet Take 1 tablet [...] W/O ME (more content not included)... Normal [facility] CT CHEST WO IVCONon 06-23-20 CT CHEST WO IVCON * * *Final Report* * * DATE OF EXAM: Jun 23 2024 3:30PM [facility] 0541 - CT CHEST WO IVCON [...] nodules. No new or enlarging pulmonary nodules. Squaring Shear Operator: ELMO Transcribe Date/Time: Jun 26 2024 7:33A Dictated by : MYNOR OSORIO MD This examination was interpreted and the report reviewed and electronically signed by: MYNOR OSORIO MD on Jun 26 2024 7:43AM EST [id number] Normal [facility] 25(OH)D3 SerPl-mCncon 2023 25-hydroxyvitamin D3 [Mass/Vol] 64.0 ng/mL Normal 31.0-80.0 [facility] Comment on above: Order Comment: Mk gilmore Type: BLOOD SPECIMENOrdering Facility: [facility] Address: [address] [place] [address] Result Comment: Clas sification of 25 OH Vitamin D status: Deficiency/Insufficiency: < or = 30 ng/ml. Sufficiency/Optimal Levels: 31-80 ng/mL Toxicity: > 100 ng/mL. Test performed by chemiluminescent immunoassay. Performed By: #### 1 989-3 ####[facility] [id number] [place] [address] [place] Comprehensive metabolic 2000 panelon 06-18-2024 Albumin [Mass/Vol] 4.8 g/dL Normal 3.9-4.9 [facility] Comment on above: Order Comment: Mk gilmore Type: BLOOD SPECIMEN Ordering Facility: [facility] Address: [address] [place] [address] Performed By: #### 5 5454-3 #### [facility] CLIA [id number] [address] [place] [address] [place] ALP [Catalytic activity/Vol] 96 U/L Normal 38-113 [facility] Comment on above: Order Comment: Mk gilmore Type: BLOOD SPECIMEN Ordering Facility: [facility] Address: [address] [place] [place] [id number] Performed By: #### 5 5454-3 #### [facility] CLIA [id number] [address] [place] [address] [place] ALT [Catalytic activity/Vol] 151 U/L High 10-54 [facility] Comment on above: Order Comment: Speci men Type: BLOOD SPECIMEN Ordering Facility: [facility] Address: [address] [place] [address] Performed By: #### 5 5454-3 #### [facility] CLIA [id number] [address] [place] [address] [place] Anion gap [Moles/Vol] 14 mmol/L Normal 8-15 [facility] Comment on above: Order Comment: Speci men Type: BLOOD SPECIMEN Ordering Facility: [facility] Address: [address] [place] [address] Performed By: #### 5 5454-3 #### [facility] CLIA [id number] [address] [place] [address] [place] AST [Catalytic activity/Vol] 97 U/L High 14-40 [facility] Comment on above: Order Comment: Speci men Type: BLOOD SPECIMEN Ordering Facility: [facility] Address: [address] [place] [address] Performed By: #### 5 5454-3 #### [facility] CLIA [id number] [address] [place], [place] [address] [place] Bilirubin [Mass/Vol] 0.8 mg/dL Normal 0.2-1.3 [facility] Comment on above: Order Comment: Speci men Type: BLOOD SPECIMEN Ordering Facility: [facility] Address: [address] [place] [address] Performed By: #### 5 5454-3 #### [facility] CLIA [id number] [address] [place], [place] [address] [place] Calcium [Mass/Vol] 9.8 mg/dL Normal 8.5-10.2 [facility] Comment on above: Order Comment: Speci men Type: BLOOD SPECIMEN Ordering Facility: [facility] Address: [address] [place] [address] Performed By: #### 5 5454-3 #### [facility] CLIA [id number] [address] [place] [address] [place] Chloride [Moles/Vol] 101 mmol/L Normal 98-107 [facility] Comment on above: Order Comment: Speci men Type: BLOOD SPECIMEN Ordering Facility: [facility] Address: [address] [place] [address] Performed By: #### 5 5454-3 #### [facility] CLIA [id number] [address] [place] [address] [place] CO2 [Moles/Vol] 25 mmol/L Normal 22-30 [facility] Comment on above: Order Comment: Speci men Type: BLOOD SPECIMEN Ordering Facility: [facility] Address: [address] [place] [address] Performed By: #### 5 5454-3 #### [facility] CLIA [id number] [address] [place] [address] [place] Creatinine [Mass/Vol] 0.84 mg/dL Normal 0.73-1.22 [facility] Comment on above: Order Comment: Speci men Type: BLOOD SPECIMEN Ordering Facility: [facility] Address: [address] [place] [address] Performed By: #### 5 5454-3 #### [facility] CLIA [id number] [address] [place] [address] [place] Creatinine and Glomerular filtration rate.predicted panel (S/P/Bld) 106 mL/min/1.73m??? Normal >=60 [facility] Comment on above: Order Comment: Speci men Type: BLOOD SPECIMEN Ordering Facility: [facility] Address: [address] [place] [address] Result Comment: Darling mated Glomerular Filtration Rate [...] GFR. Performed By: #### 5 5454-3 #### [facility] CLIA [id number] [address] [place] [address] [place] Glucose [Mass/Vol] 108 mg/dL High 74-99 [facility] Comment on above: Order Comment: Speci men Type: BLOOD SPECIMEN Ordering Facility: [facility] Address: [address] [place] [address] Result Comment: The [place] Diabetes Association (ADA) provides guidance for cutoff [...] Standards of Medical Care in Diabetes 2016, [place] [employer] Association. Diabetes Care. 2016.39(Suppl 1). Performed By: #### 5 5454-3 #### [facility] CLIA [id number] [address] [place], [place] [address] [place] Potassium [Moles/Vol] 3.3 mmol/L Low 3.7-5.1 [facility] Comment on above: Order Comment: Mk men Type: BLOOD SPECIMEN Ordering Facility: [facility] Address: [address] [place], [place] [address] Performed By: #### 5 5454-3 #### [facility] CLIA [id number] [address] [place] [address] [place] Protein [Mass/Vol] 7.2 g/dL Normal 6.3-8.0 [facility] Comment on above: Order Comment: Speci men Type: BLOOD SPECIMEN Ordering Facility: [facility] Address: [address] [place] [address] Performed By: #### 5 5454-3 #### [facility] CLIA [id number] [address] [place] [address] [place] Sodium [Moles/Vol] 140 mmol/L Normal 136-144 [facility] Comment on above: Order Comment: Speci men Type: BLOOD SPECIMEN Ordering Facility: [facility] Address: [address] [place] [address] Performed By: #### 5 5454-3 #### [facility] CLIA [id number] [address] [place] [address] [place] Urea nitrogen [Mass/Vol] 17 mg/dL Normal 9-24 [facility] Comment on above: Order Comment: Speci men Type: BLOOD SPECIMEN Ordering Facility: [facility] Address: [address] [place] [address] Performed By: #### 5 5454-3 #### [facility] CLIA [id number] [address] [place] [address] [place] Lipid 1996 panelon 4 Cholesterol [Mass/Vol] 205 mg/dL High <200 [facility] Comment on above: Order Comment: Speci men Type: BLOOD SPECIMEN Ordering Facility: [facility] Address: [address] [place] [address] Result Comment: <200 mg/dL, Desirable 200-239 mg/dL, Borderline high >239 mg/dL, High Performed By: #### 5 5454-3 #### [facility] CLIA [id number] [address] [place] [address] [place] Cholesterol in HDL [Mass/Vol] 104 mg/dL Normal >39 [facility] Comment on above: Order Comment: Mk gilmore Type: BLOOD SPECIMEN Ordering Facility: [facility] Address: [address] [place] [address] Result Comment: 40-5 9 mg/dL, Acceptable >59 mg/dL, High: Negative risk factor for coronary heart disease <40 mg/dL, Low: Positive risk factor for coronary heart disease Performed By: #### 5 5454-3 #### [facility] CLIA [id number] [address] [place] [address] Cholesterol in LDL [Mass/Vol] 77 mg/dL Normal <100 [facility] Comment on above: Order Comment: Mk gilmore Type: BLOOD SPECIMEN Ordering Facility: [facility] Address: [address] [place] [address] Result Comment: <100 mg/dL, Optimal 100-129 mg/dL, Near optimal/above optimal 130-159 mg/dL, Borderline high 160-189 mg/dL, High >189 mg/dL, Very high Secondary prevention optimal LDL Cholesterol levels are recommended to be < 70 mg/dL Performed By: #### 5 5454-3 #### [facility] CLIA [id number] [address] [place] [address] Cholesterol in LDL/Cholesterol in HDL [Mass ratio] 0.74 {ratio} Normal <2.54 [facility] Comment on above: Order Comment: Mk deirrde Type: BLOOD SPECIMEN Ordering Facility: [facility] Address: [address] [place] [address] Result Comment: Refe rence: 1. National Cholesterol Education Program ATP III Guideline At-A-Glance Quick Desk Reference: National Heart, Lung, and Blood Klemme. National Institutes of Health. 2001: NIH Publication No. 01-3305. 2. An International Atherosclerosis Society position paper: global recommendations for the management of dyslipidemia: executive summary, Atherosclerosis. 2014: 232(2):410-413. Performed By: #### 5 5454-3 #### [facility] CLIA [id number] [address] [place], [place] [address] [place] Cholesterol in VLDL [Mass/Vol] 24 mg/dL Normal <30 [facility] Comment on above: Order Comment: Speci men Type: BLOOD SPECIMEN Ordering Facility: [facility] Address: [address] [place], [place] [address] Performed By: #### 5 5454-3 #### [facility] CLIA [id number] [address] [place], [place] [address] [place] Cholesterol non HDL [Mass/Vol] 101 mg/dL Normal <130 [facility] Comment on above: Order Comment: Speci men Type: BLOOD SPECIMEN Ordering Facility: [facility] Address: [address] [place] [address] Result Comment: <130 mg/dL, Optimal 130-159 mg/dL, Near optimal/above optimal 160-189 mg/dL, Borderline high 190-219 mg/dL, High >219 mg/dL, Very high Secondary prevention optimal non HDL Cholesterol levels are recommended to be <100 mg/dL Performed By: #### 5 5454-3 #### [facility] CLIA [id number] [address] [place] [address] [place] Cholesterol.total/Cho lesterol in HDL [Mass ratio] 1.97 {ratio} Normal <5.10 [facility] Comment on above: Order Comment: Speci men Type: BLOOD SPECIMEN Ordering Facility: [facility] Address: [address] [place] [address] Performed By: #### 5 5454-3 #### [facility] CLIA [id number] [address] [place], [place] [address] [place] FASTING TIME 12 hrs Normal [facility] Comment on above: Order Comment: Speci men Type: BLOOD SPECIMEN Ordering Facility: [facility] Address: [address] [place], [place] [address] Performed By: #### 5 5454-3 #### [facility] CLIA [id number] [address] [place], [place] [address] [place] Triglyceride [Mass/Vol] 121 mg/dL Normal <150 [facility] Comment on above: Order Comment: Speci men Type: BLOOD SPECIMEN Ordering Facility: [facility] Address: [address] [place] [address] Result Comment: <150 mg/dL, Normal 150-199 mg/dL, Borderline high 200-499 mg/dL, High >499 mg/dL, Very high Performed By: #### 5 5454-3 #### [facility] CLIA [id number] [address] [place] [address] [place] Methylmalonate SerPl-sCncon 06-18-2024 Methylmalonate [Moles/Vol] 0.14 umol/L Normal <=0.40 [facility] Comment on above: Order Comment: Speci men Type: BLOOD SPECIMENOrdering Facility: [facility] Address: [address] [place] [address] Result Comment: This test was developed, and its performance characteristics determined by the [facility] Department of Pathology and Laboratory Medicine. It has not been cleared or approved by the FDA. The [facility] Department of Pathology and Laboratory Medicine is regulated under CLIA as qualified to perform high-complexity testing. This test is used for clinical purposes. It should not be regarded as investigational or for research. Performed By: #### 1 3964-2 ####[facility] [id number] [place] [address] [place] T4 Free SerPl-mCncon 024 Free T4 [Mass/Vol] 1.5 ng/dL Normal 0.9-1.7 [facility] Comment on above: Order Comment: Speci men Type: BLOOD SPECIMEN Ordering Facility: [facility] Address: [address] [place] [address] Performed By: #### 5 5454-3 #### [facility] CLIA [id number] [address] [place] [address] [place] TSH SerPl-aCncon 10-09-2024 TSH Qn 0.708 m[IU]/L Normal 0.270-4.20 0 [facility] Comment on above: Order Comment: Speci men Type: BLOOD SPECIMEN Ordering Facility: [facility] Address: [address] [place] [address] Performed By: #### 5 5454-3 #### [facility] CLIA [id number] [address] [place] [address] OF [facility] Vit B12 [facility] 024 Cobalamin (Vitamin B12) [Mass/Vol] 390 pg/mL Normal 232-1245 [facility] Comment on above: Order Comment: Speci men Type: BLOOD SPECIMEN Ordering Facility: [facility] Address: [address] [place] [address] Performed By: #### 5 5454-3 #### [facility] CLIA [id number] [address] [place] [address] CNOVon 06-16-2024 CNOV Office Visit (FAMPWS ) JAKE CHAIREZ ([id number]) 1975 M Date Time Provider Department 06/16/24 [...] Suppository by RECTAL route twice daily. rizatriptan (MAXALT-SCROLL ASSEMBLER) 10 mg disintegrating tablet Take 1 tablet [...] Status Bean (more content not included)... Normal [facility] XR FOOT 3V AP/LAT/OBL LTon 1 [...] joint spaces are maintained. No osseous erosion. Squaring Shear Operator: [facility] Transcribe Date/Time: Jun 19 2024 10:38P Dictated by : DIANE MARTINEZ MD This examination was interpreted and the report reviewed and electronically signed by: DIANE MARTINEZ MD on Jun 19 2024 10:38PM EST [id number] [facility] XR HAND 3V PA/LAT/OBL LTon 1 [...] joint spaces are preserved. No osseous erosion. Squaring Shear Operator: [facility] Transcribe Date/Time: Jun 19 2024 10:36P Dictated by : DIANE MARTINEZ MD This examination was interpreted and the report reviewed and electronically signed by: DIANE MARTINEZ MD on Jun 19 2024 10:38PM EST [id number] [facility] CNOVon 04-25-2024 CNOV Office Visit (GENSWS ) JAKE CHAIREZ ([id number]) 1975 Date Time Provider Department 04/25/24 1:00 PM JOY SHEARER [facility] During your visit today, we recorded the following information about you: Joy Shearer APRN.EARTH BORING MACHINE OPERATOR 04/25/2024 1:31 PM Signed FOLLOW UP VISIT - ENDOSCOPY Jake Chairez 1975 [id number] REFERRING PHYSICIAN: No referring provider defined for [...] Resected and retrieved. Clip was placed. Clip 1st pressman on web press: [employer]. - The entire examined colon is normal. [...] as needed for worsening/no improvement. Joy Shearer APRN.EARTH BORING MACHINE OPERATOR Allergies As of Date: 04/25/2024 Noted [...] Diagnosis:Diarrhea, unspecifie (more content not included)... Normal [facility] ANES POSTPROC EVALon 024 ANES POSTPROC EVAL HNO ID: [id number] Author: RAMÍREZ ORTIZ DO Service: Anesthesiology Author Type: Anesthesiologist Type: Anesthesia Postprocedure Evaluation Filed: 04/16/2024 13:29 Note Text: POST ANESTHESIA EVALUATION NOTE : 1975 Procedure Summary Date: 04/16/24 Room / Location: [facility] Endoscopy Anesthesia Start: 1048 Anesthesia Stop: 1126 Procedures: COLONOSCOPY SCREENING EGD DIAGNOSTIC Diagnosis: Screening for colon cancer Hyperlipidemia, mixed Gastroesophageal reflux disease, unspecified whether esophagitis present Irritable bowel syndrome with constipation Diarrhea, unspecified type Personal history of colonic polyps (Chronic diarrhea) (Suspected esophageal reflux) Scheduled Providers: John Chowdhury MD; Porsha Irwin APRN.WINE MASTER; Ramírez Ortiz DO Responsible Provider: Ramírez Ortiz [...] April 16, 2024 TIME: 1:28 PM CSN: [id number] Normal [facility] ANES PRE-OPon 04-16-2024 ANES PRE-OP HNO ID: [id number] Author: RAMÍREZ ORTIZ DO Service: Anesthesiology Author Type: Anesthesiologist Type: Anesthesia Preprocedure Evaluation Filed: 04/16/2024 09:41 Note Text: ANESTHESIOLOGY DAY OF SURGERY NOTE : 1975 Procedure Information Date/Time: 04/16/24 1030 Scheduled providers: John Chowdhury MD; Porsha Irwin APRN.WINE MASTER; Ramírez Ortiz DO Procedures: COLONOSCOPY SCREENING EGD DIAGNOSTIC Location: [facility] Endoscopy Estimated body mass index is [...] Suppository by RECTAL route twice daily. rizatriptan (MAXALT-SCROLL ASSEMBLER) 10 mg disintegrating tablet Take 1 tablet [...] April 16, 2024 TIME: 9:40 AM CSN: [id number] Normal [facility] Colonoscopyon 04-16-[address] [facility] Gastrointestinal Endoscopy Patient Name: Jake Chairez Procedure Date: 04/16/2024 10:57 AM Date of : 1975 Admit Type: Outpatient Age: 49 Room: [facility] Gender: Male Note Status: Finalized Attending MD: John Chowdhury MD, [id number] Procedure: Colonoscopy Indications: Chronic diarrhea Providers: John [...] by the physician, the nurse and the gallery or museum attendant in the procedure room. Airway Examination: normal [...] one hemostatic clip was successfully placed. Clip 1st pressman on web press: [employer]. The colon (entire examined portion) appeared normal. [...] Resected and retrieved. Clip was placed. Clip 1st pressman on web press: [employer]. - The entire examined colon is normal. [...] for review. Procedure Code(s): --- Professional --- 22063, Colonoscopy, flexible; with removal of tumor(s), polyp(s), or other lesion(s) by snare technique 80723, 59, Colonoscopy, flexible; with biopsy, single or multiple CPT copyright 2020 [employer]. All rights reserved. The codes documented in this report are preliminary and upon manager completions review may be revised to meet current compliance requirements. Attending Participation: I personally performed the en (more content not included)... Normal [facility] Colonoscopy Study observatio non 04-16-2024 [facility] Gastrointestinal Endoscopy Patient Name: Jake Chairez Procedure Date: 04/16/2024 10:57 AM Date of : 1975 Admit Type: Outpatient Age: 49 Room: [facility] Gender: Male Note Status: Finalized Attending MD: John Chowdhury MD, [id number] Procedure: Colonoscopy Indications: Chronic diarrhea Providers: John [...] by the physician, the nurse and the gallery or museum attendant in the procedure room. Airway Examination: normal [...] one hemostatic clip was successfully placed. Clip 1st pressman on web press: [employer]. The colon (entire examined portion) appeared normal. [...] Resected and retrieved. Clip was placed. Clip 1st pressman on web press: [employer]. - The entire examined colon is normal. Biopsied. (more content not included)... PROVATION [facility] Radiology Study observation (narrative) [facility] EGD Study observation Narrat melanie 04-16-2024 [facility] Gastrointestinal Endoscopy Patient Name: Jake Chairez Procedure Date: 04/16/2024 10:41 AM Date of : 1975 Admit Type: Outpatient Age: 49 Room: [facility] Gender: Male Note Status: Finalized Attending MD: John Chowdhury MD, [id number] Procedure: Upper GI endoscopy Indications: Suspected esophageal [...] by the physician, the nurse and the gallery or museum attendant in the procedure room. Respiratory Examination: clear [...] 1 week. Procedure Code(s): --- Professional --- 12086, Esophagogastroduodenoscopy, flexible, transoral; with biopsy, single or multiple CPT copyright 2020 [employer]. All rights reserved. The codes documented in this report are preliminary and upon manager completions review may be revised to meet current compliance requirements. Attending Participation: I was present and participated during the entire procedure, including non-ann portions, and during the administration and monitoring of Moderate Sedation. Scope In: 10:54:04 AM Scope Out: 10:57:00 AM MD John Parks MD (more content not included)... PROVATION [facility] Radiology Study observation (narrative) [facility] GLUCOSE, BLOOD (POC)on 04-16 Glucose [Mass/Vol] 91 mg/dL 74 - 99 mg/dL [facility] Comment on above: Location:[facility], [facility] [place], [place], [address] The Accu-Chek Inform II glucose meter has [...] blood gas instrument) in the above situations. [facility] Glucose [Mass/Vol] 99 mg/dL 74 - 99 mg/dL [facility] Comment on above: Location:[facility], [address] [place], [place], [address] The Accu-Chek Inform II glucose meter has [...] blood gas instrument) in the above situations. [facility] HISTORY PHYSICALon HISTORY PHYSICAL HNO ID: [id number] Author: JOHN CHOWDHURY MD Service: ? Author [...] Suppository by RECTAL route twice daily. rizatriptan (MAXALT-SCROLL ASSEMBLER) 10 mg disintegrating tablet Take 1 tablet by mouth as needed for migraine headache (see administration instructions). May repeat in 2 hours if needed Cholecalciferol, Vitamin D3, 125 mcg (5,000 unit) cap Take 1 capsule by mouth once (more content not included)... [facility] SURGICAL PATHOLOGYon 024 ADDENDUM 1: [facility] Comment on above: Order Comment: Speci men Type: TISSUE SPECIMEN Ordering Facility: [facility] Address: [address] [place], [place] [id number] Result Comment: C. I mmunohistochemical stains for CMV, HSV I/II, and stain for PAS/D are negative for viral inclusions and fungal organisms, respectively. Laboratory Developed Test (LDT) Disclaimer: Performance characteristics of immunohistochemical, immunofluorescent and chromogenic in-situ hybridization tests have been determined by the performing laboratory within [facility]???s Sergei Nevarez Pathology and Laboratory Medicine Department ([facility], [facility], [facility], [facility], [facility], [facility], or [facility]) in a manner consistent with CLIA requirements. [...] 12:24 PM Performed By: #### S #### [facility] CLIA [id number] [address] [place] [address] [place] CASE REPORT Normal [facility] Comment on above: Order Comment: Jankii deirdre Type: TISSUE SPECIMEN Ordering Facility: [facility] Address: [address] [place] [address] Result Comment: Surg [facility] Pathology Report Case: [id number] Authorizing Provider: John Chowdhury MD Collected: 04/16/2024 10:56 AM Ordering Location: [facility] Endoscopy Received: 04/16/2024 12:16 PM Pathologist: Nuria Bernal MD Specimens: A) - Small Bowel, Jejunum, Biopsy B) - Stomach, Antrum, Biopsy C) - Esophagus, Distal, Biopsy D) - Esophagus, Mid, Biopsy E) - Small Bowel, Terminal Ileum, Biopsy F) - Colon, Ascending, Biopsy, random G) - Colon, Descending, Biopsy, random H) - Colon, Sigmoid, Polyp Performed By: #### S #### [facility] CLIA [id number] [address] [place] [address] [place] DIAGNOSIS COMMENT Due to the presence of focally active esophagitis, immunohistochemical stains for CMV, HSV 1/2, and stain for PAS/D are ordered on block C1 will be reported in addendum. Normal [facility] Comment on above: Order Comment: Speci deirdre Type: TISSUE SPECIMEN Ordering Facility: [facility] Address: [address] [place] [address] Performed By: #### S #### [facility] CLIA [id number] [address] [place] [address] [place] FINAL DIAGNOSIS Normal [facility] Comment on above: Order Comment: Speci men Type: TISSUE SPECIMEN Ordering Facility: [facility] Address: [address] [place] [address] Result Comment: A. D uodenum, biopsy: - [...] Hyperplastic polyp. Performed By: #### S #### [facility] CLIA [id number] [address] [place] [address] [place] FINAL PERFORMING LAB Normal [facility] Comment on above: Order Comment: Speci deirdre Type: TISSUE SPECIMEN Ordering Facility: [facility] Address: [address] [place] [address] Result Comment: Diag nostic interpretation performed at [facility], [address] [place] [address] CLIA# [id number] Melt Down Furnace Operator: Wade Culp M.D. Performed By: #### S #### [facility] CLIA [id number] [address] [place] [address] [place] GROSS DESCRIPTION Normal [facility] Comment on above: Order Comment: Speci men Type: TISSUE SPECIMEN Ordering Facility: [facility] Address: [address] [place] [address] Result Comment: A. S mall Bowel, Jejunum, [...] in one cassette. Gross examination performed at [address] April 16, 2024 4:21 PM Performed By: #### S #### [facility] CLIA [id number] [address] [place] [address] [place] [address] [place] Upper GI endoscopyon 08-07-[address] [facility] Gastrointestinal Endoscopy Patient Name: Jake Chairez Procedure Date: 04/16/2024 10:41 AM Date of : 1975 Admit Type: Outpatient Age: 49 Room: [facility] Gender: Male Note Status: Finalized Attending MD: John Chowdhury MD, [id number] Procedure: Upper GI endoscopy Indications: Suspected esophageal [...] by the physician, the nurse and the gallery or museum attendant in the procedure room. Respiratory Examination: clear [...] 1 week. Procedure Code(s): --- Professional --- 56756, Esophagogastroduodenoscopy, flexible, transoral; with biopsy, single or multiple CPT copyright 2020 [employer]. All rights reserved. The codes documented in this report are preliminary and upon manager completions review may be revised to meet current [...] Blood Loss: Estimated blood loss: none. [facility] Office Visit (FAMPWS ) JAKE CHAIREZ ([id number]) 1975 M Date Time Provider Department 03/05/24 1:20 PM [facility] During your visit today, we recorded the following information about you: Pulse Respiration Blood pressure Weight 104/minute 14/minute 118/70 71 kg Su Ham APRN.EARTH BORING MACHINE OPERATOR 03/05/2024 2:13 PM Signed Chief Complaint Patient [...] Flonase [Fluti (more content not included)... Normal [facility] MRI SHOULDER WO IVCON RIGHTo n 01-24-2023 [facility] XR Shoulder - right 3 Viewso n 11-03-2022 IMPRESSION: Acromioc lavicular joint space narrowing likely degenerative. Squaring Shear Operator: [facility] Transcribe Date/Time: Nov 03 2022 4:50P Dictated by : DARON CORBIN MD This examination was interpreted and the report reviewed and electronically signed by: DARON CORBIN MD on Nov 03 2022 4:52PM [facility] DIVISION OF RADIOLOGY * * *Final [...] soft tissue swelling. DIVISION [facility] RADIOLOGY [facility] * * *Final Report* [...] IMPRESSION: Acromioclavicular joint space narrowing likely degenerative. Squaring Shear Operator: [facility] Transcribe Date/Time: Nov 03 2022 4:50P Dictated by : DARON CORBIN MD This examination was interpreted and the report reviewed and electronically signed by: DARON CORBIN MD on Nov 03 2022 4:52PM EST [facility] XR Shoulder - right 3 ViewsO rdered By: Cc Provider on 11-03-2022 [facility] XR Shoulder - right 3 Viewso n 11-01-2022 Radiology Study observation (narrative) [facility] MRI CERVICAL SPINE WO IVCONo n 10-18-2022 [facility] LUNG VOLUMESon 10-13-2022 ERV BOX (L) 0.83 L [facility] OKU73-64% POST (L/S) 1.94 L/S [facility] eland [facility] MYF39-16% PRE (L/S) 0.77 L/S [facility] land [facility] FEV1 PRE (L) 2.13 L [facility] FEV1/FVC POST (%) 66 % [facility] FEV1/FVC PRE (%) 55 % [facility] FEV1_POST (L) 2.77 L [facility] FRC Box (L) 3.68 L [facility] FVC POST (L) 4.19 L [facility] FVC PRE (L) 3.84 L [facility] IC BOX (L) 2.68 L [facility] PEF POST (L/S) 7.22 L/S [facility] PEF PRE (L/S) 6.37 L/S [facility] RV Box (L) 2.81 L [facility] RV/TLC Box (%) 44 % [facility] TLC Box (L) 6.46 L [facility] VC (L) BOX 3.51 L [facility] SPIROMETRY - BASELINE AND PO ST DILATORon 10-13-2022 [facility] CT CHEST WO IVCONon 09-29-19 [facility] XR CHEST 2V FRONTAL/LATon [facility] XR Chest PA and Lateralon IMPRESSION: Overall findings unchanged. Squaring Shear Operator: [facility] Transcribe Date/Time: Sep 22 2022 2:44P Dictated by : DARON CORBIN MD This examination was interpreted and the report reviewed and electronically signed by: DARON CORBIN MD on Sep 22 2022 2:46PM [facility] DIVISION OF RADIOLOGY * * *Final [...] soft tissues: Unremarkable. DIVISION OF RADIOLOGY Provider, [facility] - 09/22/2022 * * *Final Report* * [...] tissues: Unremarkable. IMPRESSION IMPRESSION: Overall findings unchanged. Squaring Shear Operator: ELMO Transcribe Date/Time: Sep 22 2022 2:44P Dictated by : DARON CORBIN MD This examination was interpreted and the report reviewed and electronically signed by: DARON CORBIN MD on Sep 22 2022 2:46PM EST [facility] Radiology Study observation (narrative) [facility] XR Chest PA and LateralOrder ed By: Ccf Provider on 09-22-2022 [facility] CT NECK SOFT TISSUE W IVCONo n 06-01-2022 [facility] XR CERV OTHER 4V AP/LAT/OBLo n 05-19-2022 [facility] XR Cervical spine AP and Lat eral and obliqueon 05-19-2022 IMPRESSION: Degenera tive changes as detailed in report. 1 cm well-corticated calcification within the left C4-5 foramina not significantly changed from 2017 CT. Squaring Shear Operator: PSCMiri Transcribe Date/Time: May 19 2022 1:00P Dictated by : PEPPER MARTIN MD This examination was interpreted and the report reviewed and electronically signed by: PEPPER MARTIN MD on May 19 2022 1:09PM [facility] DIVISION OF RADIOLOGY * * *Final [...] relevant examinations available for comparison within the [facility] Imaging Archives. RESULT: 4 views of the [...] soft tissue abnormality. DIVISION OF RADIOLOGY Provider, [facility] - 05/19/2022 * * *Final Report* * [...] relevant examinations available for comparison within the [facility] Imaging Archives. RESULT: 4 views of the [...] foramina not significantly changed from 2017 CT. Squaring Shear Operator: [facility] Transcribe Date/Time: May 19 2022 1:00P Dictated by : PEPPER MARTIN MD This examination was interpreted and the report reviewed and electronically signed by: PEPPER MARTIN MD on May 19 2022 1:09PM EST [facility] Radiology Study observation (narrative) [facility] XR Cervical spine AP and Lat eral and obliqueOrdered By: Ccf Provider on 05-19-2022 [facility] UA DIP, URINE (POC)on 2021 BILIRUBIN UA (POCT) Negative Negative Ian [facility] CLARITY UA (POCT) Clear [facility] COLOR UA (POCT) Yellow [facility] GLUCOSE UA (POCT) Negative Negative mg/dL [facility] HEMOGLOBIN/BLOOD UA (POCT) Negative Negative [facility] KETONE UA (POCT) Negative Negative mg/dL [facility] LEUKOCYTES UA (POCT) Negative Negative [facility] ([facility]) Negative Negative [facility] PH UA (POCT) 5.5 4.5 - 8.0 [facility] Protein Ql (U) Negative Negative mg/dL [facility] SPECIFIC GRAVITY UA (POCT) <=1.005 Abnormal 1.005 - 1.030 [facility] UROBILINOGEN UA (POCT) 0.2 E.U./dL Normal E.U./dL [facility] XR Knee - left 4 Viewson IMPRESSION: Negative 4 views of the left knee. Squaring Shear Operator: [facility] Transcribe Date/Time: Nov 11 2021 3:12P Dictated by : DARON CORBIN MD This examination was interpreted and the report reviewed and electronically signed by: DARON CORBIN MD on Nov 11 2021 3:14PM [facility] DIVISION OF RADIOLOGY * * *Final [...] soft tissue swelling. DIVISION OF RADIOLOGY Provider, [facility] 11/11/2021 * * *Final Report* * [...] Negative 4 views of the left knee. Squaring Shear Operator: ELMO Transcribe Date/Time: Nov 11 2021 3:12P Dictated by : DARON CORBIN MD This examination was interpreted and the report reviewed and electronically signed by: DARON CORBIN MD on Nov 11 2021 3:14PM EST [facility] Radiology Study observation (narrative) [facility] XR Knee - left 4 ViewsOrdere d By: Ccf Provider on 11-11-2021 [facility] XR Chest PA and Lateralon IMPRESSION: No evidence of active disease. Squaring Shear Operator: ELMO Transcribe Date/Time: Oct 26 2021 5:06P [...] soft tissues: Unremarkable. DIVISION OF RADIOLOGY Provider, [facility] - 10/26/2021 * * *Final Report* * [...] IMPRESSION IMPRESSION: No evidence of active disease. Squaring Shear Operator: [facility] Transcribe Date/Time: Oct 26 2021 5:06P Dictated by : BANDAR BLUE MD This examination was interpreted and the report reviewed and electronically signed by: BANDAR BLUE MD on Oct 26 2021 5:07PM EST [facility] Radiology Study observation (narrative) [facility] XR Chest PA and LateralOrder ed By: Ccf Provider on 10-26-2021 [facility] No Panel Informationon 07-28 IMPRESSION: No fracture or dislocation. No osseous lesions. No significant arthritic change. Subtle pes planus deformity. Subtle 1 to 2 mm radiopaque foreign body seen in soft tissues of the medial ankle. Squaring Shear Operator: [facility] Transcribe Date/Time: Jul 28 2021 6:51P Dictated by : MANDA ALONSO MD This examination was interpreted and the report reviewed and electronically signed by: MANDA ALONSO MD on Jul 28 2021 6:53PM EST DIVISION OF RADIOLOGY Radiology Study observation (narrative) [facility] No Panel InformationOrdered By: Ccf Provider on 07-28-2021 [facility] XR Ankle - right AP and Late [...] None RESULT / DIVISION OF RADIOLOGY Provider, [facility] - 07/28/2021 * * *Final [...] in soft tissues of the medial ankle. Squaring Shear Operator: [facility] Transcribe Date/Time: Jul 28 2021 6:51P Dictated by : MANDA ALONSO MD This examination was interpreted and the report reviewed and electronically signed by: MANDA ALONSO MD on Jul 28 2021 6:53PM [facility] XR Foot - right AP [...] None RESULT / DIVISION OF RADIOLOGY Provider, [facility] - 07/28/2021 * * *Final [...] in soft tissues of the medial ankle. Squaring Shear Operator: [facility] Transcribe Date/Time: Jul 28 2021 6:51P Dictated by : MANDA ALONSO MD This examination was interpreted and the report reviewed and electronically signed by: MANDA ALONSO MD on Jul 28 2021 6:53PM EST [facility] XR Chest PA and Lateralon IMPRESSION: Stable and unremarkable exam with no acute radiographic abnormality. Squaring Shear Operator: [facility] Transcribe Date/Time: Sep 23 2020 7:44P [...] soft tissues: Unremarkable. DIVISION OF RADIOLOGY Provider, [facility] - 09/23/2020 * * *Final Report* [...] unremarkable exam with no acute radiographic abnormality. Squaring Shear Operator: [facility]SC[facility] Transcribe Date/Time: Sep 23 2020 7:44P Dictated by : KARON ZUNIGA MD This examination was interpreted and the report reviewed and electronically signed by: KARON ZUNIGA MD on Sep 23 2020 7:45PM EST [facility] Radiology Study observation (narrative) [facility] XR Chest PA and LateralOrder ed By: Ccf Provider on 09-23-2020 [facility] MRI Spine Lumbar w/ + w/o Co ntraston 10-01-2018 MRI Spine Lumbar w/ + w/o Contrast Patient Name: JAKE CHAIREZ MRI Exam Date/Time 09/30/2018 11:01:22 EST Exam MRI Spine Lumbar w/ + w/o Contrast Ordering Physician MD BEN, SUZI [place] Accession Number [id number] CPT4 Codes 79498 () Reason For Exam status post lumbar [...] Transcribed Date and Time: 10/01/2018 7:46 Normal [facility] 08-09-2017 CN Office Visit (AGCARDWST) ----JAKE CHAIREZ ([id number]) 1975 MDate Time Provider Tfetthgngm38/30/17 4:00 PM INDRA DUPREE AGCARDWST During your [...] - N/ABeta james for ASHD with prior MT or prior LVEFANDlt;40 (NQF 0070) - N/ABeta [...] with treatment plan.This note was generated using Rx[employer]antage voice recognition system, and there may besome [...] 1 tablet by mouth daily at bedtime.rizatriptan (MAXALT-SCROLL ASSEMBLER) 10 mg disintegrating tablet Take 1 tablet [...] He had a restingtachycardia.Electronic ally Signed:Indra Dupree MDAtrium Health University City2016 4:36 [facility] Nemesio Bell Provider: INDRA DUPREE [[id number]]Allergies As of Date: 08/09/2017 Noted Allergy ReactionADVAIR [...] the following areas and commit to making alf changes. EAT A WHOLE FOOD, PLANT BASED [...] by INDRA DUPREE MD on 08/09/[address] [facility] PROGRESSon 08-09-2017 PROGRESS HNO ID: [id number] thor: Indra Pino: (none)Author Type: PhysicianType: Progress NotesFiled: 08/09/2017 4:41 PMNote Text:PERTINENT CARDIAC HISTORYChest painHLHTNFamily history premature CADADHERENCE TO GUIDELINESACE-I or ARB for HF with prior LVEF<40 (NQF 0081) - N/AASA or Plavix for ASHD (NQF 0067) - N/ABeta james for ASHD with prior MT or prior LVEF<40 (NQF 0070) - N/ABeta [...] with treatment plan.This note was generated using Rx[employer]antage voice recognition system, and theremay be some [...] Take 1 tablet by mouth daily atbedtime.rizatriptan (MAXALT-SCROLL ASSEMBLER) 10 mg disintegrating tablet Take 1 tablet [...] a restingtachycardia.Electronic ally Signed:Indra Dupree MDNov2016 4:36 [facility]: Avni Salcedo DO Normal [facility] CNCOon 07-18-2017 Erythrocyte distribution width Auto Ratio (RBC) Letter TextDepartment of JpmecuaoqfAhkvc[address] [place], [place] [address]Vhbcy: (100) [phone]/17/2016TO WHOM IT MAY CONCERN:This is to confirm that [facility] had an [facility] Staff on[facility]/18/2017 and may return to work on 07-18-17.Sincerely yours,Cardiology Staff Normal [facility] Vital Signs Date Time Vital Sign Value Performing Clinician Facility 02-21-2025 14:36-0400 Body temperature 98.6 [degF] Dr. Avni Salcedo DO Work Phone: [facility] 02-21-2025 14:36-0400 Diastolic blood pressure 101 mm[Hg] Dr. Avni Salcedo DO Work Phone: [facility] 02-21-2025 14:36-0400 Heart rate 111 /min Dr. Avni Salcedo DO Work Phone: [facility] 02-21-2025 14:36-0400 Respiratory rate 12 /min Dr. Avni Salcedo DO Work Phone: [facility] 02-21-2025 14:36-0400 SaO2% (BldA) [Mass fraction] 99 % Dr. Avni Salcedo DO Work Phone: [facility] 02-21-2025 14:36-0400 Systolic blood pressure 117 mm[Hg] Dr. Avni Salcedo DO Work Phone: [facility] 02-21-2025 10:04-0400 Body height 167.[address] Avni Salcedo DO Work Phone: [facility] 02-21-2025 10:04-0400 Body mass index (BMI) [Ratio] 26.3 kg/m2 Dr. Avni Salcedo DO Work Phone: [facility] 02-21-2025 10:04-04[address] Body weight [address] Avni Salcedo DO Work Phone: [facility] 01-12-2025 14:24-0400 Body mass index (BMI) [Ratio] 26.47 kg/m2 Elmer White MD Work Phone: [facility] 01-12-2025 14:24-0400 Body weight 74.39 kg Elmer White MD Work Phone: [facility] 01-12-2025 14:24-0400 Diastolic blood pressure 96 mm[Hg] Elmer White MD Work Phone: [facility] 01-12-2025 14:24-0400 Heart rate 118 /min Elmer White MD Work Phone: [facility] 01-12-2025 14:24-0400 Respiratory rate 16 /min Elmer White MD Work Phone: [facility] 01-12-2025 14:24-0400 Systolic blood pressure 128 mm[Hg] Elmer White MD Work Phone: [facility] 01-08-2025 14:01-0400 Body mass index (BMI) [Ratio] 26.69 kg/m2 Tavon Valencia APRN.EARTH BORING MACHINE OPERATOR Work Phone: [facility] 01-08-2025 14:01-0400 Body weight 75 kg Tavon Valencia APRN.EARTH BORING MACHINE OPERATOR Work Phone: [facility] 01-08-2025 14:01-0400 Diastolic blood pressure 87 mm[Hg] Tavon Valencia APRN.EARTH BORING MACHINE OPERATOR Work Phone: [facility] 01-08-2025 14:01-0400 Heart rate 108 /min Tavon Valencia APRN.EARTH BORING MACHINE OPERATOR Work Phone: [facility] 01-08-2025 14:01-0400 Systolic blood pressure 126 mm[Hg] Tavon Valencia HOG TRADER.EARTH BORING MACHINE OPERATOR Work Phone: [facility] 01-07-2025 14:51-0400 Body height 167.6 cm Yoon Click HOG TRADER.EARTH BORING MACHINE OPERATOR Work Phone: [facility] 01-07-2025 14:51-0400 Body mass index (BMI) [Ratio] 26.79 kg/m2 Yoon Click HOG TRADER.EARTH BORING MACHINE OPERATOR Work Phone: [facility] 01-07-2025 14:51-0400 Body weight 75.3 kg Yoon Click HOG TRADER.EARTH BORING MACHINE OPERATOR Work Phone: [facility] 01-07-2025 14:51-0400 Diastolic blood pressure 78 mm[Hg] Yoon Click HOG TRADER.EARTH BORING MACHINE OPERATOR Work Phone: [facility] 01-07-2025 14:51-0400 Heart rate 117 /min Yoon Click HOG TRADER.EARTH BORING MACHINE OPERATOR Work Phone: [facility] 01-07-2025 14:51-0400 Respiratory rate 15 /min Yoon Click HOG TRADER.EARTH BORING MACHINE OPERATOR Work Phone: [facility] 01-07-2025 14:51-0400 SaO2% (BldA) [Mass fraction] 97 % Yoon Click HOG TRADER.EARTH BORING MACHINE OPERATOR Work Phone: [facility] 01-07-2025 14:51-0400 Systolic blood pressure 122 mm[Hg] Yoon Click HOG TRADER.EARTH BORING MACHINE OPERATOR Work Phone: [facility] 01-07-2025 14:45-0400 Body height 167.6 cm Pulm Wstr Work Phone: [facility] 01-07-2025 14:45-0400 Body mass index (BMI) [Ratio] 26.79 kg/m2 Pulm Wstr Work Phone: [facility] 01-07-2025 14:45-0400 Body weight 75.3 kg Pulm Wstr Work Phone: [facility] 01-07-2025 14:45-0400 Heart rate 117 /min Pulm Wstr Work Phone: [facility] 01-07-2025 14:45-0400 Respiratory rate 15 /min Pulm Wstr Work Phone: [facility] 01-07-2025 14:45-0400 SaO2% (BldA) [Mass fraction] 97 % Pulm Wstr Work Phone: [facility] 10-09-2024 14:41-0500 Body mass index (BMI) [Ratio] 26.79 kg/m2 Shayla Rogers MD Work Phone: [facility] 10-09-2024 14:41-0500 Body weight 75.3 kg Shayla Rogers MD Work Phone: [facility] 10-09-2024 14:41-0500 Diastolic blood pressure 72 mm[Hg] Shayla Rogers MD Work Phone: [facility] 10-09-2024 14:41-0500 Heart rate 101 /min Shayla Rogers MD Work Phone: [facility] 10-09-2024 14:41-0500 Respiratory rate 18 /min Shayla Rogers MD Work Phone: [facility] 10-09-2024 14:41-0500 SaO2% (BldA) [Mass fraction] 98 % Shayla Rogers MD Work Phone: [facility] 10-09-2024 14:41-0500 Systolic blood pressure 118 mm[Hg] Shayla Rogers MD Work Phone: [facility] 10-06-2024 12:53-0500 Body mass index (BMI) [Ratio] 26.86 kg/m2 Elmira Farrar APRN.EARTH BORING MACHINE OPERATOR Work Phone: [facility] 10-06-2024 12:53-0500 Body weight 75.48 kg Elmira Farrar APRN.EARTH BORING MACHINE OPERATOR Work Phone: [facility] 10-06-2024 12:53-0500 Diastolic blood pressure 78 mm[Hg] Elmira Farrar APRN.EARTH BORING MACHINE OPERATOR Work Phone: [facility] 10-06-2024 12:53-0500 Heart rate 100 /min Elmira Toano HOG TRADER.EARTH BORING MACHINE OPERATOR Work Phone: [facility] 10-06-2024 12:53-0500 Respiratory rate 20 /min Elmira Toano HOG TRADER.EARTH BORING MACHINE OPERATOR Work Phone: [facility] 10-06-2024 12:53-0500 SaO2% (BldA) [Mass fraction] 98 % Elmira Toano HOG TRADER.EARTH BORING MACHINE OPERATOR Work Phone: [facility] 10-06-2024 12:53-0500 Systolic blood pressure 124 mm[Hg] Elmira Toano HOG TRADER.EARTH BORING MACHINE OPERATOR Work Phone: [facility] 06-16-2024 15:45-0400 Body mass index (BMI) [Ratio] 25.47 kg/m2 Avni Salcedo DO Work Phone: [facility] 06-16-2024 15:45-0400 Body weight 71.58 kg Avni Salcedo DO Work Phone: [facility] 06-16-2024 15:45-0400 Diastolic blood pressure 68 mm[Hg] Avni Salcedo DO Work Phone: [facility] 06-16-2024 15:45-0400 Heart rate 92 /min Avni Salcedo DO Work Phone: [facility] 06-16-2024 15:45-0400 Respiratory rate 14 /min Avni Salcedo DO Work Phone: [facility] 06-16-2024 15:45-0400 SaO2% (BldA) [Mass fraction] 98 % Avni Salcedo DO Work Phone: [facility] 06-16-2024 15:45-0400 Systolic blood pressure 128 mm[Hg] Avni Salcedo DO Work Phone: [facility] 04-16-2024 12:46-0400 Diastolic blood pressure 85 mm[Hg] John Chowdhury MD Work Phone: [facility] 04-16-2024 12:46-0400 Heart rate 89 /min John Chowdhury MD Work Phone: [facility] 04-16-2024 12:46-0400 Respiratory rate 16 /min John Chowdhury MD Work Phone: [facility] 04-16-2024 12:46-0400 SaO2% (BldA) [Mass fraction] 98 % John Chowdhury MD Work Phone: [facility] 04-16-2024 12:46-0400 Systolic blood pressure 152 mm[Hg] John Chowdhury MD Work Phone: [facility] 04-16-2024 11:26-0400 Body temperature 98.2 [degF] John Chowdhury MD Work Phone: [facility] 04-16-2024 09:20-0400 Body height 167.6 cm John Chowdhury MD Work Phone: [facility] 04-16-2024 09:20-0400 Body mass index (BMI) [Ratio] 25.26 kg/m2 John Chowdhury MD Work Phone: [facility] 04-16-2024 09:20-0400 Body weight 71 kg John Chowdhury MD Work Phone: [facility] 03-05-2024 13:11-0400 Body mass index (BMI) [Ratio] 25.28 kg/m2 Su Ham APRN.EARTH BORING MACHINE OPERATOR Work Phone: [facility] 03-05-2024 13:11-0400 Body weight 71.03 kg Su Ham HOG TRADER.EARTH BORING MACHINE OPERATOR Work Phone: [facility] 03-05-2024 13:11-0400 Diastolic blood pressure 70 mm[Hg] Su Ham APRN.EARTH BORING MACHINE OPERATOR Work Phone: [facility] 03-05-2024 13:11-0400 Heart rate 104 /min Su Ham HOG TRADER.EARTH BORING MACHINE OPERATOR Work Phone: [facility] 03-05-2024 13:11-0400 Respiratory rate 14 /min Su Ham HOG TRADER.EARTH BORING MACHINE OPERATOR Work Phone: [facility] 03-05-2024 13:11-0400 Systolic blood pressure 118 mm[Hg] Su Ham HOG TRADER.EARTH BORING MACHINE OPERATOR Work Phone: [facility] 02-08-2024 11:31-0400 Body height 167.6 cm John Chowdhury MD Work Phone: [facility] 02-08-2024 11:31-0400 Body mass index (BMI) [Ratio] 26.08 kg/m2 John Chowdhury MD Work Phone: [facility] 02-08-2024 11:31-0400 Body temperature 98.71 [degF] John Chowdhury MD Work Phone: [facility] 02-08-2024 11:31-0400 Body weight 73.3 kg John Chowdhury MD Work Phone: [facility] 02-08-2024 11:31-0400 Diastolic blood pressure 88 mm[Hg] John Chowdhury MD Work Phone: [facility] 02-08-2024 11:31-0400 Heart rate 101 /min John Chowdhury MD Work Phone: [facility] 02-08-2024 11:31-0400 SaO2% (BldA) [Mass fraction] 98 % John Chowdhury MD Work Phone: [facility] 02-08-2024 11:31-0400 Systolic blood pressure 124 mm[Hg] John Chowdhury MD Work Phone: [facility] 01-31-2024 13:33-0400 Body mass index (BMI) [Ratio] 26.7 kg/m2 Su Ham HOG TRADER.EARTH BORING MACHINE OPERATOR Work Phone: [facility] 01-31-2024 13:33-0400 Body weight 73.57 kg Su Ham HOG TRADER.EARTH BORING MACHINE OPERATOR Work Phone: [facility] 01-31-2024 13:33-0400 Diastolic blood pressure 96 mm[Hg] Su Ahm HOG TRADER.EARTH BORING MACHINE OPERATOR Work Phone: [facility] 01-31-2024 13:33-0400 Heart rate 96 /min Su Ham HOG TRADER.EARTH BORING MACHINE OPERATOR Work Phone: [facility] 01-31-2024 13:33-0400 Respiratory rate 14 /min Su Ham HOG TRADER.EARTH BORING MACHINE OPERATOR Work Phone: [facility] 01-31-2024 13:33-0400 SaO2% (BldA) [Mass fraction] 98 % Su Ham HOG TRADER.EARTH BORING MACHINE OPERATOR Work Phone: [facility] 01-31-2024 13:33-0400 Systolic blood pressure 136 mm[Hg] Su Ham HOG TRADER.EARTH BORING MACHINE OPERATOR Work Phone: [facility] 01-08-2023 14:56-0400 Body temperature 98.01 [degF] Avni Salcedo DO Work Phone: [facility] 01-08-2023 14:56-0400 Body weight 74.84 kg Avni Salcedo DO Work Phone: [facility] 01-08-2023 14:56-0400 Diastolic blood pressure 80 mm[Hg] Avni Salcedo DO Work Phone: [facility] 01-08-2023 14:56-0400 Heart rate 80 /min Avni Salcedo DO Work Phone: [facility] 01-08-2023 14:56-0400 Respiratory rate 16 /min Avni Salcedo DO Work Phone: [facility] 01-08-2023 14:56-0400 Systolic blood pressure 112 mm[Hg] Avni Salcedo DO Work Phone: [facility] 11-16-2022 19:40-0500 Body height 167.[address] Avni Sacledo Work Phone: [facility] 11-16-2022 19:40-0500 Body mass index (BMI) [Ratio] 27.4 kg/m2 Dr. Avni Salcedo Work Phone: 6(108)044-789083 [place] [address] 11-16-2022 19:40-0500 Body temperature 97 [degF] Dr. Avni Salcedo Work Phone: 4(960)764-061183 [place] [address] 11-16-2022 19:40-0500 Body weight 77.[address] Avni Salcedo Work Phone: 5(462)971-227183 [place] [address] 11-16-2022 19:40-0500 Diastolic blood pressure 97 mm[Hg] Dr. Avni Salcedo Work Phone: 2(837)887-184183 [place] [address] 11-16-2022 19:40-0500 Heart rate 110 /min Dr. Avni Salcedo Work Phone: 0(262)887-554383 [place] [address] 11-16-2022 19:40-0500 Respiratory rate 16 /min Dr. Avni Salcedo Work Phone: 7(500)681-265183 [place] [address] 11-16-2022 19:40-0500 SaO2% (BldA) [Mass fraction] 100 % Dr. Avni Salcedo Work Phone: 4(144)802-946483 [place] [address] 11-16-2022 19:40-0500 Systolic blood pressure 169 mm[Hg] Dr. Avni Salcedo Work Phone: 7(549)863-348283 [place] [address] 11-02-2022 14:05-0500 Body mass index (BMI) [Ratio] 27.4 kg/m2 Dr. Avni Salcedo Work Phone: 2(630)420-149383 [place] [address] 11-02-2022 14:05-0500 Body weight 77.[address] Avni Salcedo Work Phone: 6(661)202-758783 [place] [address] 11-01-2022 14:18-0500 Body weight 77.02 kg Su Ham APRN.EARTH BORING MACHINE OPERATOR Work Phone: 4(975)877-354684 [place] [address] 11-01-2022 14:18-0500 Diastolic blood pressure 70 mm[Hg] Su Ham APRN.EARTH BORING MACHINE OPERATOR Work Phone: 7(154)867-665984 [place] [address] 11-01-2022 14:18-0500 Heart rate 100 /min Su Ham HOG TRADER.EARTH BORING MACHINE OPERATOR Work Phone: [facility] 11-01-2022 14:18-0500 Respiratory rate 14 /min Su Ham HOG TRADER.EARTH BORING MACHINE OPERATOR Work Phone: [facility] 11-01-2022 14:18-0500 SaO2% (BldA) [Mass fraction] 97 % Su Ham HOG TRADER.EARTH BORING MACHINE OPERATOR Work Phone: [facility] 11-01-2022 14:18-0500 Systolic blood pressure 128 mm[Hg] Su Ham HOG TRADER.EARTH BORING MACHINE OPERATOR Work Phone: [facility] 10-13-2022 12:50-0500 Body weight 75.3 kg Pulm Wstr Work Phone: [facility] 10-13-2022 12:50-0500 Heart rate 109 /min Pulm Wstr Work Phone: [facility] 10-13-2022 12:50-0500 Respiratory rate 14 /min Pulm Wstr Work Phone: [facility] 10-13-2022 12:50-0500 SaO2% (BldA) [Mass fraction] 98 % Pulm Wstr Work Phone: [facility] 10-11-2022 16:52-0500 Body temperature 97 [degF] Avni Salcedo DO Work Phone: [facility] 10-11-2022 16:52-0500 Body weight 77.56 kg Avni Salcedo DO Work Phone: [facility] 10-11-2022 16:52-0500 Diastolic blood pressure 82 mm[Hg] Avni Salcedo DO Work Phone: [facility] 10-11-2022 16:52-0500 Heart rate 64 /min Avni Salcedo DO Work Phone: [facility] 10-11-2022 16:52-0500 Respiratory rate 16 /min Avni Salcedo DO Work Phone: [facility] 10-11-2022 16:52-0500 Systolic blood pressure 134 mm[Hg] Avni Salcedo DO Work Phone: [facility] 09-22-2022 13:07-0500 Body temperature 98.29 [degF] Su Ham HOG TRADER.EARTH BORING MACHINE OPERATOR Work Phone: [facility] 09-22-2022 13:07-0500 Body weight 75.39 kg Su Ham HOG TRADER.EARTH BORING MACHINE OPERATOR Work Phone: [facility] 09-22-2022 13:07-0500 Diastolic blood pressure 80 mm[Hg] Su Ham HOG TRADER.EARTH BORING MACHINE OPERATOR Work Phone: [facility] 09-22-2022 13:07-0500 Heart rate 104 /min Su Ham HOG TRADER.EARTH BORING MACHINE OPERATOR Work Phone: [facility] 09-22-2022 13:07-0500 Respiratory rate 16 /min Su Ham HOG TRADER.EARTH BORING MACHINE OPERATOR Work Phone: [facility] 09-22-2022 13:07-0500 SaO2% (BldA) [Mass fraction] 98 % Su Ham HOG TRADER.EARTH BORING MACHINE OPERATOR Work Phone: [facility] 09-22-2022 13:07-0500 Systolic blood pressure 130 mm[Hg] Su Ham HOG TRADER.EARTH BORING MACHINE OPERATOR Work Phone: [facility] 09-18-2022 11:10-0500 Body temperature 97.9 [degF] Elmer Pendlebury HOG TRADER.EARTH BORING MACHINE OPERATOR Work Phone: [facility] 09-18-2022 11:10-0500 Body weight 74.39 kg Elmer Pendlebury HOG TRADER.EARTH BORING MACHINE OPERATOR Work Phone: [facility] 09-18-2022 11:10-0500 Diastolic blood pressure 72 mm[Hg] Elmer Pendlebury HOG TRADER.EARTH BORING MACHINE OPERATOR Work Phone: [facility] 09-18-2022 11:10-0500 Heart rate 118 /min Elmer Pendlebury HOG TRADER.EARTH BORING MACHINE OPERATOR Work Phone: [facility] 09-18-2022 11:10-0500 Respiratory rate 18 /min Elmer Leivaamalia HOG TRADER.EARTH BORING MACHINE OPERATOR Work Phone: [facility] 09-18-2022 11:10-0500 SaO2% (BldA) [Mass fraction] 97 % Elmer Careyjeff HOG TRADER.EARTH BORING MACHINE OPERATOR Work Phone: [facility] 09-18-2022 11:10-0500 Systolic blood pressure 122 mm[Hg] Elmer Michael HOG TRADER.EARTH BORING MACHINE OPERATOR Work Phone: [facility] 07-10-2022 14:59-0400 Body temperature 98.2 [degF] Avni Salcedo DO Work Phone: [facility] 07-10-2022 14:59-0400 Body weight 75.3 kg Avni Salcedo DO Work Phone: [facility] 07-10-2022 14:59-0400 Diastolic blood pressure 80 mm[Hg] Avni Salcedo DO Work Phone: [facility] 07-10-2022 14:59-0400 Heart rate 104 /min Avni Salcedo DO Work Phone: [facility] 07-10-2022 14:59-0400 Respiratory rate 12 /min Avni Salcedo DO Work Phone: [facility] 07-10-2022 14:59-0400 Systolic blood pressure 120 mm[Hg] Avni Salcedo DO Work Phone: [facility] 05-30-2022 13:00-0400 Diastolic blood pressure 86 mm[Hg] Yash Golias PT Work Phone: [facility] 05-30-2022 13:00-0400 Systolic blood pressure 126 mm[Hg] Yash Golias PT Work Phone: [facility] 05-19-2022 10:56-0400 Body temperature 96.49 [degF] Avni Salcedo DO Work Phone: [facility] 05-19-2022 10:56-0400 Body weight 74.84 kg Avni Salcedo DO Work Phone: [facility] 05-19-2022 10:56-0400 Diastolic blood pressure 82 mm[Hg] Avni Salcedo DO Work Phone: [facility] 05-19-2022 10:56-0400 Heart rate 96 /min Avni Salcedo DO Work Phone: [facility] 05-19-2022 10:56-0400 Respiratory rate 16 /min Avni Salcedo DO Work Phone: [facility] 05-19-2022 10:56-0400 Systolic blood pressure 138 mm[Hg] Avni Salcedo DO Work Phone: [facility] 04-18-2022 16:23-0400 Body temperature 99.9 [degF] Tammy Shraddha HOG TRADER.EARTH BORING MACHINE OPERATOR Work Phone: [facility] 04-18-2022 16:23-0400 Body weight 73.48 kg Tammy Shraddha HOG TRADER.EARTH BORING MACHINE OPERATOR Work Phone: [facility] 04-18-2022 16:23-0400 Diastolic blood pressure 74 mm[Hg] Tammy Shraddha HOG TRADER.EARTH BORING MACHINE OPERATOR Work Phone: [facility] 04-18-2022 16:23-0400 Heart rate 119 /min Tammy Shraddha HOG TRADER.EARTH BORING MACHINE OPERATOR Work Phone: [facility] 04-18-2022 16:23-0400 Respiratory rate 18 /min Tammy Shraddha HOG TRADER.EARTH BORING MACHINE OPERATOR Work Phone: [facility] 04-18-2022 16:23-0400 SaO2% (BldA) [Mass fraction] 97 % Tammy Shraddha HOG TRADER.EARTH BORING MACHINE OPERATOR Work Phone: [facility] 04-18-2022 16:23-0400 Systolic blood pressure 130 mm[Hg] Tammy Shraddha HOG TRADER.EARTH BORING MACHINE OPERATOR Work Phone: [facility] 12-12-2021 13:01-0400 Body height 166 cm ERIK Ludwig PA-C Work Phone: [facility] 12-12-2021 13:01-0400 Body weight 74.84 kg NA Ludwig PA-C Work Phone: [facility] 12-12-2021 13:01-0400 Diastolic blood pressure 74 mm[Hg] NA Ludwig PA-C Work Phone: [facility] 12-12-2021 13:01-0400 Heart rate 107 /min NA Ludwig PA-C Work Phone: [facility] 12-12-2021 13:01-0400 Respiratory rate 16 /min NA Ludwig PA-C Work Phone: [facility] 12-12-2021 13:01-0400 SaO2% (BldA) [Mass fraction] 97 % NA Ludwig PA-C Work Phone: [facility] 12-12-2021 13:01-0400 Systolic blood pressure 122 mm[Hg] NA Ludwig PA-C Work Phone: [facility] Encounters Encounter Date Encounter Type Care Provider Facility Start: 02-21-2025 Evaluation and manag ement of inpatient [facility]: Start: 02-21-2025 End: 02-21-2025 Patient encounter procedure Adrianna MORAN Work Phone: [facility] Comment on above: Procedure not mariela d out (Primary Dx) Start: 02-04-2025 End: 02-05-2025 Telephone encounter Elmer White MD Work Phone: [facility] Start: 01-30-2025 End: 01-30-2025 ambulatory YOON MAGANA Facility:[id number] Start: 01-13-2025 End: 01-14-2025 Follow-up encounter Elmer White MD Work Phone: [facility] Comment on above: Results Start: 01-12-2025 End: 01-12-2025 Subsequent hospital visit by physician [facility] Work Phone: Radiology Comment on above: Rib pain on left dustin e [R07.81] Start: 01-12-2025 End: 01-12-2025 Office outpatient visit 25 minutes Elmer White MD Work Phone: [facility] Comment on above: Rib pain on left dustin e (Primary Dx); Left sided abdominal pain Start: 01-12-2025 End: 01-12-2025 ambulatory TAVONGELACIO VALENCIA Facility:[facility] [place] Start: 01-12-2025 End: 01-13-2025 Follow-up encounter Elmer White MD Work Phone: [facility] Comment on above: Results Start: 01-08-2025 End: 01-08-2025 Patient encounter procedure Tavon Valencia HOG TRADER.EARTH BORING MACHINE OPERATOR Work Phone: [facility] Comment on above: IFG (impaired fastin g glucose) (Primary Dx); Hyperlipidemia, mixed; Chronic allergic rhinitis; Displacement of lumbar intervertebral disc without myelopathy; Essential hypertension, benign; Migraine without aura and without status migrainosus, not intractable; Sarcoidosis of lung (HCC); Mixed hyperlipidemia; Asthma, moderate persistent, well-controlled (HCC) Start: 01-08-2025 End: 01-08-2025 ambulatory TAVON VALENCIA Facility:[facility] [place] Start: 01-07-2025 End: 01-07-2025 Office outpatient visit 40 minutes Yoon Magana APRN.EARTH BORING MACHINE OPERATOR Work Phone: Pulmonary Medicine Comment on above: Asthma, moderate per sistent, poorly-controlled (HCC) (Primary Dx); Acute non-recurrent maxillary sinusitis; Chronic allergic rhinitis; Daytime sleepiness; Former cigarette smoker Start: 01-07-2025 End: 01-07-2025 Patient encounter procedure [facility] Work Phone: PULM LAB [facility] Start: 01-07-2025 End: 01-07-2025 ambulatory [facility] Work Phone: [facility] Comment on above: Spirometry Start: 01-02-2025 End: 01-02-2025 ambulatory Avni Salcedo Facility:[facility] Start: 01-02-2025 End: 01-02-2025 Discharged [facility]ring [facility] [place] [facility] Work Phone: Start: 10-15-2024 End: 10-15-2024 Refill Avni Jesuson DO Work Phone: [facility] [place] Comment on above: Refill Request Start: 10-09-2024 End: 10-09-2024 ambulatory SHAYLA ROGERS Facility:[facility] [place] Start: 10-09-2024 End: 10-09-2024 Patient encounter procedure Shayla Rogers MD Work Phone: Pulmonary Medicine Comment on above: Asthma, moderate per sistent, poorly-controlled (Primary Dx); H/O sarcoidosis; Former cigarette smoker Start: 10-06-2024 End: 10-06-2024 Refill Avni Jesuson DO Work Phone: [facility] [place] Comment on above: Refill Request Encounter for screen ing for lung cancer (Primary Dx); Tobacco abuse Insurance Authorizat ion Start: 09-01-2024 End: 09-01-2024 Telephone encounter Avni Jesuson DO Work Phone: [facility] [place] Comment on above: Results Start: 08-18-2024 End: 08-18-2024 Telephone encounter Avni Ahnrison DO Work Phone: [facility] [place] Comment on above: Insurance Authorizat ion (Hydrocortisone suppository ) Start: 08-15-2024 End: 08-15-2024 Refill Avni Ahnrison DO Work Phone: [facility] Comment on above: Patient Question; Re fill Request Start: 08-05-2024 End: 08-08-2024 ambulatory Avni Ahnrison DO Work Phone: [facility] Comment on above: Blood work Start: 08-05-2024 End: 08-05-2024 Refill Su Ham HOG TRADER.EARTH BORING MACHINE OPERATOR Work Phone: [facility] Comment on above: Refill Request Start: 07-25-2024 End: 07-28-2024 Refill Su Ham APRN.EARTH BORING MACHINE OPERATOR Work Phone: [facility] Comment on above: Refill Request Start: 07-02-2024 End: 07-03-2024 Telephone encounter Avni Ahnrison DO Work Phone: Family [facility] [place] Comment on above: Results Start: 06-26-2024 End: 06-26-2024 ambulatory AVNI L SALCEDO Facility:[facility] [place] Start: 06-26-2024 End: 06-26-2024 Telephone encounter Avni Ahnrison DO Work Phone: Family [facility] [place] Start: 06-24-2024 End: 06-24-2024 Telephone encounter Avni Ahnrison DO Work Phone: [facility] Comment on above: Results Start: 06-23-2024 End: 06-23-2024 Subsequent hospital visit by physician [facility] (I-Stat) Work Phone: Cat Scan Comment on above: Pulmonary nodule [R9 1.1] Start: 06-23-2024 End: 06-26-2024 ambulatory Portia Andujar PA-C Work Phone: Pulmonary Medicine Start: 06-18-2024 End: 06-18-2024 ambulatory AVNI L SALCEDO Facility:[facility] [place] Start: 06-16-2024 End: 06-16-2024 ambulatory AVNI L SALCEDO Facility:[facility] [place] Start: 06-16-2024 End: 06-16-2024 Subsequent hospital visit by physician [facility] [place] Work Phone: Radiology Comment on above: Pain of left thumb [ M79.645] Start: 06-16-2024 End: 06-16-2024 Patient encounter procedure Avni L Salcedo DO Work Phone: [facility] Comment on above: Pain of left thumb ( Primary Dx); Foot pain, left; Hyperlipidemia, mixed; IFG (impaired fasting glucose); Vitamin D deficiency; Fatigue, unspecified type; Pulmonary nodule; LVH (left ventricular hypertrophy); 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; Vitamin B12 deficiency Start: 06-16-2024 End: 06-16-2024 ambulatory AVNI L SALCEDO Facility:[facility] [place] Start: 06-06-2024 End: 06-09-2024 Refill Avni L Salcedo DO Work Phone: [facility] [place] Comment on above: Refill Request Start: 04-28-2024 End: 04-28-2024 Refill Su Ham HOG TRADER.EARTH BORING MACHINE OPERATOR Work Phone: [facility] Comment on above: Refill Request Start: 04-25-2024 End: 04-25-2024 ambulatory AVNI L SALCEDO Facility:[facility] [place] Start: 04-25-2024 End: 04-25-2024 Patient encounter procedure Joy Shearer HOG TRADER.EARTH BORING MACHINE OPERATOR Work Phone: General Surgery Comment on above: Gastroesophageal ref lux disease with esophagitis without hemorrhage (Primary Dx); Diarrhea, unspecified type Start: 04-16-2024 ambulatory AVNI L SALCEDO [facility] Start: 04-16-2024 End: 04-16-2024 Subsequent hospital visit by physician John Chowdhury MD Work Phone: [facility] Endoscopy Comment on above: Screening for colon cancer [Z12.11] Start: 03-05-2024 End: 03-05-2024 ambulatory AVNI L SALCEDO Facility:[facility] [place] Start: 03-05-2024 End: 03-05-2024 Patient encounter procedure Su Ham HOG TRADER.EARTH BORING MACHINE OPERATOR Work Phone: [facility] [place] Comment on above: Essential hypertensi on, benign (Primary Dx); Anxiety with depression Start: 02-20-2024 Refill Su Ham HOG TRADER.EARTH BORING MACHINE OPERATOR Work Phone: [facility] Comment on above: Refill Request Start: 02-08-2024 End: 02-08-2024 Patient encounter procedure John Chowdhury MD Work Phone: General Surgery Comment on above: Gastroesophageal ref lux disease, unspecified whether esophagitis present (Primary Dx); Screening for colon cancer; Hyperlipidemia, mixed; Irritable bowel syndrome with constipation; Diarrhea, unspecified type; Personal history of colonic polyps Start: 02-06-2024 Telephone encounter Su lopez HOG TRADER.EARTH BORING MACHINE OPERATOR Work Phone: [facility] Comment on above: Results Start: 01-31-2024 End: 01-31-2024 Patient encounter procedure Su Ham APRN.EARTH BORING MACHINE OPERATOR Work Phone: [facility] Comment on above: BENIGN HYPERTENSION (Primary Dx); Hyperlipidemia, mixed; Migraine without aura and without status migrainosus, not intractable; Mild persistent asthma without complication; Chronic allergic rhinitis; New onset type 2 diabetes mellitus (HCC); Screening for colon cancer; Screening for prostate cancer Start: 11-22-2023 Refill Su Ham APRN.EARTH BORING MACHINE OPERATOR Work Phone: [facility] Comment on above: Refill Request Start: 08-08-2023 Refill Avni lopez DO Work Phone: [facility] [place] Comment on above: Refill Request Start: 07-30-2023 Refill Avni lopez DO Work Phone: [facility] Comment on above: Refill Request Start: 05-04-2023 Refill Avni lopez DO Work Phone: [facility] [employer] Comment on above: Refill Request Start: 04-06-2023 Refill Tavon douglass APRN.EARTH BORING MACHINE OPERATOR Work Phone: [facility] Comment on above: Refill Request Start: 01-24-2023 End: 01-24-2023 Subsequent hospital visit by physician [facility] (I-Stat/1.5t) Work Phone: Radiology Start: 01-19-2023 Refill Su Ham APRN.EARTH BORING MACHINE OPERATOR Work Phone: [facility] Comment on above: Refill Request Start: 01-08-2023 End: 01-08-2023 Patient encounter procedure Avni Salcedo DO Work Phone: [facility] Comment on above: Dyslipidemia (Primar y Dx); New onset type 2 diabetes mellitus (HCC); BENIGN HYPERTENSION; Gastroesophageal reflux disease without esophagitis; Chronic allergic rhinitis; Hyperlipidemia, mixed; Displacement of lumbar intervertebral disc without myelopathy; Cervical disc disorder at C4-C5 level with radiculopathy; Chronic neck pain Start: 11-16-2022 End: 11-16-2022 Emergency department patient visit Dr. Avni Salcedo Work Phone: [facility] Start: 11-08-2022 ambulatory Su Ham HOG TRADER.EARTH BORING MACHINE OPERATOR Work Phone: [facility] Start: 11-08-2022 Follow-up encounter Su lopez HOG TRADER.EARTH BORING MACHINE OPERATOR Work Phone: [facility] Comment on above: Follow up Start: 11-06-2022 Telephone encounter Su lopez HOG TRADER.EARTH BORING MACHINE OPERATOR Work Phone: [facility] Comment on above: Results Start: 11-02-2022 End: 11-02-[address] Avni Salcedo Work Phone: [facility] Start: 11-01-2022 End: 11-01-2022 Subsequent hospital visit by physician [facility] [place] Work Phone: Radiology Comment on above: Acute pain of right shoulder [M25.511] Start: 11-01-2022 End: 11-01-2022 Patient encounter procedure Su Ham HOG TRADER.EARTH BORING MACHINE OPERATOR Work Phone: [facility] Comment on above: New onset type 2 margareth betes mellitus (HCC) (Primary Dx); Hyperlipidemia, mixed; Acute pain of right shoulder Start: 11-01-2022 End: 11-01-2022 Nursing evaluation of patient and report Claude Amanda RN Work Phone: Endocrinology Comment on above: IFG (impaired fastin g glucose) (Primary Dx) Start: 10-26-2022 Telephone encounter Avni smith DO Work Phone: [facility] Comment on above: Appointment Start: 10-18-2022 End: 10-18-2022 Subsequent hospital visit by physician [facility] (I-Stat/1.5t) Work Phone: Radiology Start: 10-17-2022 ambulatory Avni Harrington Skyla lopez DO Work Phone: [facility] Comment on above: echo Start: 10-17-2022 E-mail encounter fro m caregiver Avni Salcedo DO Work Phone: [facility] Start: 10-16-2022 Telephone encounter Su lopez HOG TRADER.EARTH BORING MACHINE OPERATOR Work Phone: [facility] Comment on above: Results Refill Request Start: 10-13-2022 End: 10-13-2022 ambulatory [facility] Work Phone: [facility]ULM LAB [facility] Comment on above: Spirometry Start: 10-13-2022 End: 10-13-2022 Patient encounter procedure [facility] Work Phone: [facility] Start: 10-11-2022 End: 10-11-2022 Patient encounter procedure Avni Salcedo DO Work Phone: [facility] [place] Comment on above: Dyslipidemia (Primar y Dx); Vitamin D deficiency; IFG (impaired fasting glucose); LVH (left ventricular hypertrophy); Asthma, moderate persistent, well-controlled; Exposure to radon, initial encounter; Wheezing Start: 10-02-2022 Telephone encounter Su lopez HOG TRADER.EARTH BORING MACHINE OPERATOR Work Phone: [facility] [place] Comment on above: Results Start: 09-29-2022 End: 09-29-2022 Subsequent hospital visit by physician [facility] (I-Stat) Work Phone: Cat Scan Comment on above: Wheezing [R06.2] Start: 09-22-2022 End: 09-22-2022 Patient encounter procedure Su Ham HOG TRADER.EARTH BORING MACHINE OPERATOR Work Phone: [facility] Comment on above: Bronchitis (Primary Dx); Asthma, moderate persistent, well-controlled; Chronic allergic rhinitis; Wheezing; Exposure to radon, initial encounter Start: 09-22-2022 Telephone encounter Su lopez HOG TRADER.EARTH BORING MACHINE OPERATOR Work Phone: [facility] [place] Comment on above: Results Start: 09-22-2022 End: 09-22-2022 Subsequent hospital visit by physician [facility] [place] Work Phone: Radiology Comment on above: Asthma, moderate per sistent, well-controlled [J45.40] Start: 09-18-2022 End: 09-18-2022 Office outpatient visit 25 minutes Elmer Rodriguez APRN.EARTH BORING MACHINE OPERATOR Work Phone: [facility] Comment on above: Sinobronchitis (Prim rafiq Dx) Start: 08-08-2022 Refill Su barbosa HOG TRADER.EARTH BORING MACHINE OPERATOR Work Phone: [facility] Comment on above: Refill Request Start: 08-04-2022 ambulatory No Pcp Rodrigo Rivas [facility] Start: 07-20-2022 Refill Avni lopez DO Work Phone: [facility] [place] Comment on above: Refill Request Start: 07-10-2022 End: 07-10-2022 Patient encounter procedure Avni Salcedo DO Work Phone: [facility] Comment on above: Chronic neck pain (P rimary Dx); Cervical radiculopathy; Cervical disc disorder at C4-C5 level with radiculopathy; Attention deficit Start: 06-29-2022 End: 06-29-2022 ambulatory Yash Golias PT Work Phone: [facility] Comment on above: Neck pain (Primary D x) Start: 06-26-2022 End: 06-26-2022 ambulatory Socorro Kashuba COSTUME DESIGN TEACHER Work Phone: [facility] Comment on above: Neck pain (Primary D x) Start: 06-19-2022 End: 06-19-2022 ambulatory Yash Golias PT Work Phone: [facility] Comment on above: Neck pain (Primary D x) Start: 06-12-2022 End: 06-12-2022 ambulatory Socorro Kashuba COSTUME DESIGN TEACHER Work Phone: [facility] Comment on above: Neck pain (Primary D x) Start: 06-07-2022 End: 06-07-2022 ambulatory Socorro Kashuba COSTUME DESIGN TEACHER [facility] Comment on above: Neck pain (Primary D x) Start: 06-07-2022 Telephone encounter Josue Tabitha Shine DO Work Phone: Radiology Comment on above: image request Start: 06-02-2022 Telephone encounter Avni smith DO Work Phone: [facility] Comment on above: Results Start: 06-01-2022 End: 06-01-2022 Subsequent hospital visit by physician [facility] (I-Stat) Work Phone: Cat Scan Comment on above: Localized swelling, mass and lump, neck [R22.1] Start: 05-30-2022 End: 05-30-2022 ambulatory Yash Golias PT Work Phone: [facility] Comment on above: Neck pain without in jury; Neck pain Start: 05-20-2022 Telephone encounter Avni smith DO Work Phone: [facility] Comment on above: Results Start: 05-19-2022 End: 05-19-2022 Subsequent hospital visit by physician X[facility] [place] Work Phone: Radiology Comment on above: Neck pain without in jury [M54.2] Start: 05-19-2022 End: 05-19-2022 Patient encounter procedure Avni Salcedo DO Work Phone: [facility] Comment on above: Localized swelling, mass and lump, neck (Primary Dx); Neck pain without injury; Localized enlarged lymph nodes Start: 04-20-2022 Refill Su barbosa HOG TRADER.EARTH BORING MACHINE OPERATOR Work Phone: [facility] Comment on above: Refill Request Start: 04-18-2022 End: 04-18-2022 Office outpatient visit 25 minutes Tammy Llanes HOG TRADER.EARTH BORING MACHINE OPERATOR Work Phone: [facility] Comment on above: Sinobronchitis (Prim rafiq Dx); Mild intermittent asthma with acute exacerbation; Wheezing Start: 04-18-2022 Refill Avni lopez DO Work Phone: [facility] Comment on above: Refill Request Start: 03-27-2022 Refill Marivel Luong PA-C Work Phone: Pulmonary Medicine Comment on above: Refill Request Start: 03-15-2022 ambulatory Marivel Luong PA-C Work Phone: Pulmonary Medicine Comment on above: I'm having a flare u p. Start: 02-23-2022 Refill Avni Crum son DO Work Phone: [facility] [place] Comment on above: Refill Request Start: 01-12-2022 Refill Kim Podlogar HOG TRADER.EARTH BORING MACHINE OPERATOR Work Phone: [facility] [place] Comment on above: Refill Request Omeprazole Dr 40mg Start: 12-26-2021 ambulatory Marivel Luong PA-C Work Phone: Pulmonary Medicine Comment on above: Asthma problem.. Start: 12-12-2021 End: 12-12-2021 Patient encounter procedure Lita Rosaleson PA-C Work Phone: [facility] [place] Comment on above: Encounter for examin ation required by Department of Transportation (DOT) (Primary Dx) Start: 11-11-2021 End: 11-11-2021 Subsequent hospital visit by physician [facility] Work Phone: Radiology Comment on above: Acute pain of left k nee [M25.562] Start: 10-26-2021 End: 10-26-2021 Subsequent hospital visit by physician [facility] Work Phone: Radiology Comment on above: Cough [R05.9] Start: 07-28-2021 End: 07-28-2021 Subsequent hospital visit by physician [facility] Work Phone: Radiology Comment on above: Foot pain, right [M7 9.671] Start: 09-23-2020 End: 09-23-2020 Subsequent hospital visit by physician X[facility] Work Phone: Radiology Comment on above: Suspected COVID-19 v irus infection [Z20.822] Start: 09-30-2018 Patient encounter procedure Suzi Granados [facility] Start: 02-06-2018 Ambulatory INDRA DUPREE Facility :[facility] Start: 08-09-[address] [facility] Procedures Date Procedure Procedure [...] shoulder complete minimum 2 views Su Ham HOG TRADER.EARTH BORING MACHINE OPERATOR Work Phone: Start: 10-18-2022 Mri spinal canal cervical w/o contrast matrl [facility] Provider Start: 10-13-2022 Brncdilat rspse spmtry pre&post-brncdilat admn Sujoes Ham HOG TRADER.EARTH BORING MACHINE OPERATOR Work Phone: Start: 09-29-2022 Ct thorax w/o contrast material Su D devison HOG TRADER.EARTH BORING MACHINE OPERATOR Work Phone: Start: 09-22-2022 Radiologic exam chest 2 views Su Chip lopez HOG TRADER.EARTH BORING MACHINE OPERATOR Work Phone: Start: 06-01-2022 Ct soft tissue neck w/contrast material Avni Salcedo DO Work Phone: Start: 05-19-2022 Radex spine cervical 4 or 5 views Avni Ahnrison DO Work Phone: Start: 12-12-2021 Urnls dip stick/tablet rgnt auto w/o microscopy M Huber Ludwig PA-C Work Phone: Start: 11-11-2021 Radiologic exam knee complete 4/more views Sumulu Ham HOG TRADER.EARTH BORING MACHINE OPERATOR Work Phone: Start: 10-26-2021 Radiologic exam chest 2 views Kamille barillas HOG TRADER.EARTH BORING MACHINE OPERATOR Work Phone: Start: 07-28-2021 Radex foot complete minimum 3 views Susi Menjivar PA-C Work Phone: Start: 09-23-2020 Radiologic exam chest 2 views Donal elliott HOG TRADER.EARTH BORING MACHINE OPERATOR Work Phone: Start: 12-27-2016 Colonoscopy NA Oziel SANTILLAN Work Phone: Plan of Treatment Date Care Activity Detail Author Start: 05-10-2031 Urine microalbumin profile [facility] Start: 04-16-2029 Screening for malignant neoplasm of colon [facility] Start: 10-13-2027 LIPID SCREEN LIPID SCREEN [facility] Start: 06-01-2026 LIPID SCREEN LIPID SCREEN [facility] Start: 01-12-2026 Annual PCP Team Chronic Disease Visit Annual PCP Team Chronic Disease Visit [facility] Start: 01-12-2026 Hepatitis B surface antibody level LDL Cholesterol [facility] Start: 01-08-2026 Annual PCP Team Chronic Disease Visit Annual PCP Team Chronic Disease Visit [facility] Start: 01-07-2026 BP Controlled (<130/80) BP Controlled (<130/80) [facility] Start: 10-13-2025 DIABETES SCREEN DIABETES SCREEN [facility] Start: 10-09-2025 BP Controlled (<130/80) BP Controlled (<130/80) [facility] Start: 10-06-2025 BP Controlled (<130/80) BP Controlled (<130/80) [facility] Start: 07-15-2025 End: 07-15-2025 Patient encounter procedure 07/15/2025 2:20 PM EST Office Visit [facility] [address] [place], [place] [id number] Avni Salcedo DO [address] [place], [place] [id number] physical [facility] Comment on above: physical Start: 07-15-2025 Hemoglobin A1c measurement HbA1C [facility] Start: 07-06-2025 End: 07-06-2025 Patient encounter procedure Cat Scan Comment on above: Tobacco abuse [Z72.0]; Encounter for scr eening for lung cancer [Z12.2] 9 month LDCT 9 month LCS Start: 06-23-2025 Screening for malignant neoplasm of lung Lung Cancer Screening [facility] Start: 06-18-2025 Hepatitis B surface antibody level LDL Cholesterol [facility] Start: 06-16-2025 Annual PCP Team Chronic Disease Visit Annual PCP Team Chronic Disease Visit [facility] Start: 06-16-2025 BP Controlled (<130/80) BP Controlled (<130/80) [facility] Start: 06-16-2025 Covid-19 Vaccine () Covid-19 Vaccine () [facility] Comment on above: Postponed from 05/11/2024 (Declined at t his time) Start: 06-16-2025 Diabetic foot examination Diabetic Foot Exam [facility] Start: 05-19-2025 DIABETES SCREEN DIABETES SCREEN [facility] Start: 05-11-2025 Influenza vaccination Influenza Vaccine (Season Ended) [facility] Start: 04-08-2025 End: 04-08-2025 Patient encounter procedure Pulmonary Medicine Comment on above: 3 month follow up Start: 03-09-2025 Influenza vaccination Influenza Vaccine (#1) [facility] Comment on above: Postponed from 05/11/2024 (Declined at t his time) Start: 03-05-2025 Annual PCP Team Chronic Disease Visit Annual PCP Team Chronic Disease Visit [facility] Start: 03-05-2025 BP Controlled (<130/80) BP Controlled (<130/80) [facility] in Start: 02-21-2025 Verification routine [facility] Start: 02-21-2025 Admission procedure [facility] Start: 02-21-2025 Hospital admission, emergency, from emergency room, medical nature [facility] Start: 02-21-2025 End: 02-21-2025 [facility] Start: 02-09-2025 End: 02-09-2025 Patient encounter procedure 02/09/2025 2:00 PM EDT Appointment Radiology [address] [place], [place] [id number] Splenomegaly, not elsewhere classified [R16.1] Radiology Comment on above: Splenomegaly, not elsewhere classified [ R16.1] Start: 01-31-2025 Hepatitis B surface antibody level LDL Cholesterol [facility] Start: 01-30-2025 End: 01-30-2025 Patient encounter procedure 01/30/2025 8:30 PM EDT Office Visit [facility] [address] [place] [address] Daytime sleepiness [R40.0] [facility] Comment on above: Daytime sleepiness [R40.0] Start: 01-30-2025 Annual PCP Team Chronic Disease Visit Annual PCP Team Chronic Disease Visit [facility] Start: 01-30-2025 Covid-19 Vaccine ( season) Covid-19 Vaccine () [facility] Comment on above: Postponed from 05/11/2023 (Declined at t his time) Start: 01-30-2025 Pneumococcal vaccination Pneumococcal Vaccine (1 of 2 - PCV) [facility] Comment on above: Postponed from 1979 (Declined at t his time) Start: 01-30-2025 Shingrix Vaccine (1 of 2) Shingrix Vaccine (1 of 2) [facility] Comment on above: Postponed from 2023 (Declined at t his time) Start: 01-12-2025 End: 04-13-2025 Amylase [Enzymatic activity/volume] in Serum or Plasma [facility] Comment on above: Expected: 01/12/2025, Expires: Start: 01-12-2025 End: 04-13-2025 Hepatic function 2000 panel - Serum or Plasma [facility] Work Phone: Comment on above: Expected: 01/12/2025, Expires: Start: 01-12-2025 End: 04-13-2025 Lipase [Enzymatic activity/volume] in Serum or Plasma [facility] Comment on above: Expected: 01/12/2025, Expires: Start: 01-08-2025 End: 01-08-2025 Patient encounter procedure 01/08/2025 2:20 PM EDT Office Visit [facility] [address] [place], [place] [id number] Tavon Valencia APRN.[facility] [address] [place] [address] 6 mon follow up/meds [facility] Comment on above: 6 mon follow up/meds Start: 01-08-2025 End: 04-09-2025 Hemoglobin A1c in Blood HEMOGLOBIN A1C Lab Routine IFG (impaired fasting glucose) Expected: 01/08/2025, Expires: 04/09/2025 [facility] Comment on above: Expected: 01/08/2025, Expires: Start: 01-08-2025 End: 04-09-2025 Lipid 1996 panel - Serum or Plasma LIPID PANEL, FASTING Lab Routine Hyperlipidemia, mixed Expected: 01/08/2025, Expires: 04/09/2025 [facility] Work Phone: Comment on above: Expected: 01/08/2025, Expires: Start: 01-07-2025 End: 01-07-2025 Patient encounter procedure 01/07/2025 3:00 PM EDT Office Visit Pulmonary Medicine [address] [place] [address] Yoon Magana APRN.[employer] [address] [place] [address] 3 MTH F/U ASTHMA Pulmonary Medicine Comment on above: 3 MTH F/U ASTHMA Start: 01-07-2025 End: 01-07-2025 ambulatory [facility]ULM [facility] Comment on above: PFT Start: 12-17-2024 End: 12-17-2024 Patient encounter procedure 12/17/2024 3:00 PM EDT Office Visit [facility] [place] [address] [place] [address] Catalina Almazan APRN.[employer]ATOR [address] [place] [address] 6 mon follow up [facility] [place] Comment on above: 6 mon follow up Start: 10-09-2024 End: 10-09-2024 Patient encounter procedure 10/09/2024 2:45 PM EST Office Visit Pulmonary Medicine [address] [place] [address] [place] [place] [address] Shayla Rogers MD [address] [place] [address] f/up dr. Clifford Taylor Pulmonary Medicine Comment on above: f/up dr. Clifford Taylor Start: 10-06-2024 End: 10-06-2024 Patient encounter procedure 10/06/2024 1:00 PM EST Office Visit Pulmonary Medicine [address] [place] [address] [place] [address] Elmira Farrar APRN.[employer]INE OPERATOR [address] [place] [address] To talk about my last couple of cat scans. Pulmonary Medicine Comment on above: To talk about my last couple of cat scan s. Start: 08-03-2024 Hemoglobin A1c measurement HbA1C [facility] Start: 06-26-2024 End: 06-26-2024 Patient encounter procedure 06/26/2024 3:30 PM EDT Office Visit Cardiology [address] [place] [address] LVH (left ventricular hypertrophy) [I51.7] Cardiology Comment on above: LVH (left ventricular hypertrophy) [I51. 7] Start: 06-26-2024 End: 09-25-2024 Comprehensive metabolic 2000 panel - Serum or Plasma COMPREHENSIVE METABOLIC PANEL Lab Routine Elevated LFTs Hypokalemia Expected: 06/26/2024, Expires: 09/25/2024 [facility] Work Phone: Comment on above: Expected: 06/26/2024, Expires: Start: 06-23-2024 End: 06-23-2024 Patient encounter procedure 06/23/2024 3:20 PM EDT Appointment Cat Scan [address] [place] [address] Pulmonary nodule [R91.1] Cat Scan Comment on above: Pulmonary nodule [R91.1] Start: 06-16-2024 End: 06-16-2024 Patient encounter procedure 06/16/2024 3:20 PM EDT Office Visit [facility] [place] [address] [place] [address] Avni Salcedo DO [address] [place] [address] 3-4 months follow [facility] [place] Comment on above: 3-4 months follow Start: 06-16-2024 End: 09-15-2024 25-hydroxyvitamin D3 [Mass/volume] in Serum or Plasma VITAMIN D 25 HYDROXY Lab Routine Vitamin D deficiency Fatigue, unspecified type Expected: 06/16/2024, Expires: 09/15/2024 [facility] Comment on above: Expected: 06/16/2024, Expires: Start: 06-16-2024 End: 09-15-2024 Cobalamin (Vitamin B12) [Mass/volume] in Serum or Plasma VITAMIN B12 Lab Routine IFG (impaired fasting glucose) Fatigue, unspecified type Expected: 06/16/2024, Expires: 09/15/2024 [facility] Comment on above: Expected: 06/16/2024, Expires: Start: 06-16-2024 End: 09-15-2024 Comprehensive metabolic 2000 panel - Serum or Plasma COMPREHENSIVE METABOLIC PANEL Lab Routine Hyperlipidemia, mixed Expected: 06/16/2024, Expires: 09/15/2024 [facility] Comment on above: Expected: 06/16/2024, Expires: Start: 06-16-2024 End: 09-15-2024 Methylmalonate [Moles/volume] in Serum or Plasma METHYLMALONIC ACID Lab Routine Vitamin B12 deficiency Expected: 06/16/2024, Expires: 09/15/2024 [facility] Comment on above: Expected: 06/16/2024, Expires: Start: 06-16-2024 End: 09-15-2024 Thyrotropin [Units/volume] in Serum or Plasma THYROID STIMULATING HORMONE Lab Routine Hyperlipidemia, mixed IFG (impaired fasting glucose) Fatigue, unspecified type Expected: 06/16/2024, Expires: 09/15/2024 [facility] Comment on above: Expected: 06/16/2024, Expires: Start: 06-16-2024 End: 09-15-2024 Thyroxine (T4) free [Mass/volume] in Serum or Plasma T4 FREE/FREE THYROXINE Lab Routine Hyperlipidemia, mixed IFG (impaired fasting glucose) Fatigue, unspecified type Expected: 06/16/2024, Expires: 09/15/2024 [facility] Comment on above: Expected: 06/16/2024, Expires: Start: 06-01-2024 DIABETES SCREEN DIABETES SCREEN [facility] Start: 05-11-2024 Covid-19 Vaccine () Covid-19 Vaccine () [facility] Start: 05-11-2024 Influenza vaccination [facility] Start: 05-10-2024 End: 08-09-2024 Lipid 1996 panel - Serum or Plasma LIPID PANEL BASIC Lab Routine Hyperlipidemia, mixed Expected: 05/10/2024, Expires: 08/09/2024 [facility] Work Phone: Comment on above: Expected: 05/10/2024, Expires: Start: 04-16-2024 End: 04-16-2024 Patient encounter procedure 04/16/2024 9:[address] [facility] [address] [place] [address] John Chowdhury MD [address] [address] colon/egd [facility] Comment on above: colon/egd Start: 04-03-2024 Hepatitis B surface antibody level LDL CHOLESTEROL [facility] Start: 03-05-2024 End: 03-05-2024 Patient encounter procedure 03/05/2024 1:20 PM EDT Office Visit [facility] [place] [address] [place] [address] Su Ham APRN.[employer] OPERATOR [address] [place] [address] 2-3 week b/p recheck [facility] [place] Comment on above: 2-3 week b/p recheck Start: 2024 End: 06-01-2024 Comprehensive metabolic 2000 panel - Serum or Plasma COMPREHENSIVE METABOLIC PANEL Lab Routine Hyperlipidemia, mixed Essential hypertension, benign Expected: 2024, Expires: 06/01/2024 [facility] Comment on above: Expected: 2024, Expires: Start: 02-08-2024 End: 02-08-2024 Patient encounter procedure 02/08/2024 11:30 AM EDT Office Visit General [facility] [address] [facility] [place] [address] John Chowdhury MD [address] [address] Z12.11 (ICD-10-CM) - Screening for colon cancer General Surgery Comment on above: Z12.11 (ICD-10-CM) - Screening for colon cancer Start: 01-31-2024 End: 05-01-2024 CBC W Auto Differential panel - Blood COMPLETE BLOOD COUNT AND DIFFERENTIAL Lab Routine Hyperlipidemia, mixed Essential hypertension, benign Expected: 01/31/2024, Expires: 05/01/2024 [facility] Comment on above: Expected: 01/31/2024, Expires: Start: 01-31-2024 End: 05-01-2024 Hemoglobin A1c in Blood HEMOGLOBIN A1C Lab Routine New onset type 2 diabetes mellitus (HCC) Expected: 01/31/2024, Expires: 05/01/2024 [facility] Work Phone: Comment on above: Expected: 01/31/2024, Expires: 4 Start: 01-31-2024 End: 05-01-2024 Lipid 1996 panel - Serum or Plasma LIPID PANEL BASIC Lab Routine Hyperlipidemia, mixed Expected: 01/31/2024, Expires: 05/01/2024 [facility] Comment on above: Expected: 01/31/2024, Expires: 4 Start: 01-31-2024 End: 05-01-2024 PSA/PROSTATE SPECIFIC ANTIGEN SCREENING PSA/PROSTATE SPECIFIC ANTIGEN SCREENING Lab Routine Screening for prostate cancer Expected: 01/31/2024, Expires: 05/01/2024 [facility] Comment on above: Expected: 01/31/2024, Expires: 4 Start: 01-09-2024 3 comp foot exam completed DIABETIC FOOT EXAM [facility] Start: 01-09-2024 ANNUAL PCP TEAM CHRONIC DISEASE VISIT ANNUAL PCP TEAM CHRONIC DISEASE VISIT [facility] Start: 01-09-2024 Diabetic foot examination Diabetic Foot Exam [facility] Start: 11-01-2023 ANNUAL PCP TEAM CHRONIC DISEASE VISIT ANNUAL PCP TEAM CHRONIC DISEASE VISIT [facility] Start: 11-01-2023 BP CONTROLLED (<130/80) BP [facility]OLLED (<130/80) [facility] Start: 10-13-2023 Hepatitis B surface antibody level LDL CHOLESTEROL [facility] Start: 10-11-2023 ANNUAL PCP TEAM CHRONIC DISEASE VISIT ANNUAL PCP TEAM CHRONIC DISEASE VISIT [facility] Start: 10-11-2023 BP CONTROLLED (<130/80) BP CONTROLLED (<130/80) [facility] Start: 10-04-2023 Hemoglobin A1c measurement HbA1C [facility] Start: 10-04-2023 Hemoglobin A1c/Hemoglobin.total in Blood HBA1C [facility] Start: 09-29-2023 Screening for malignant neoplasm of lung Lung Cancer Screening [facility] Start: 09-22-2023 ANNUAL PCP TEAM CHRONIC DISEASE VISIT ANNUAL PCP TEAM CHRONIC DISEASE VISIT [facility] Start: 09-22-2023 COVID-19 VACCINE (3 - Booster for Pfizer series) COVID-19 VACCINE (3 - Booster for Pfizer series) [facility] Comment on above: Postponed from 07/18/2021 (Declined at t his time) Start: 09-22-2023 COVID-19 VACCINE (3 - Pfizer series) COVID-19 VACCINE (3 - Pfizer series) [facility] Comment on above: Postponed from 07/18/2021 (Declined at t his time) Start: 09-22-2023 HEPATITIS B (1 of 3 - 3-dose series) HEPATITIS B (1 of 3 - 3-dose series) [facility] Comment on above: Postponed from 1973 (Declined at t his time) Start: 09-22-2023 Hepatitis B Vaccine (1 of 3 - 3-dose series) Hepatitis B Vaccine (1 of 3 - 3-dose series) [facility] Comment on above: Postponed from 1973 (Declined at t his time) Start: 09-18-2023 BP CONTROLLED (<130/80) BP CONTROLLED (<130/80) [facility] Start: 07-10-2023 ANNUAL PCP TEAM CHRONIC DISEASE VISIT ANNUAL PCP TEAM CHRONIC DISEASE VISIT [facility] Start: 05-19-2023 ANNUAL PCP TEAM CHRONIC DISEASE VISIT ANNUAL PCP TEAM CHRONIC DISEASE VISIT [facility] Start: 05-11-2023 Covid-19 Vaccine () Covid-19 Vaccine () [facility] Start: 05-11-2023 Influenza vaccination [facility] Start: 04-12-2023 Hemoglobin A1c/Hemoglobin.total in Blood HBA1C [facility] Start: 03-09-2023 Influenza vaccination INFLUENZA (#1) [facility] Comment on above: Postponed from 05/11/2022 (Declined at t his time) Start: 2023 SHINGRIX VACCINE (1 of 2) SHINGRIX VACCINE (1 of 2) [facility] Start: 02-08-2023 End: 04-10-2023 ALBUMIN/CREAT RATIO RND UR ALBUMIN/CREAT RATIO RND UR Lab Routine New onset type 2 diabetes mellitus (HCC) Expected: 02/08/2023, Expires: 04/10/2023 [facility] Work Phone: Comment on above: Expected: 02/08/2023, Expires: Start: 02-08-2023 End: 04-10-2023 Comprehensive metabolic 2000 panel - Serum or Plasma COMP METABOLIC PANEL Lab Routine New onset type 2 diabetes mellitus (HCC) Expected: 02/08/2023, Expires: 04/10/2023 [facility] Work Phone: Comment on above: Expected: 02/08/2023, Expires: Start: 02-08-2023 End: 04-10-2023 Hemoglobin A1c in Blood HGB A1C Lab Routine New onset type 2 diabetes mellitus (HCC) Expected: 02/08/2023, Expires: 04/10/2023 [facility] Work Phone: Comment on above: Expected: 02/08/2023, Expires: 3 Start: 02-08-2023 End: 04-10-2023 Lipid 1996 panel - Serum or Plasma LIPID PANEL BASIC Lab Routine Dyslipidemia Expected: 02/08/2023, Expires: 04/10/2023 [facility] Work Phone: Comment on above: Expected: 02/08/2023, Expires: 3 Start: 01-29-2023 End: 03-31-2023 Hemoglobin A1c in Blood HGB A1C Lab Routine New onset type 2 diabetes mellitus (HCC) Expected: 01/29/2023, Expires: 03/31/2023 [facility] Work Phone: Comment on above: Expected: 01/29/2023, Expires: 3 Start: 12-12-2022 ANNUAL PCP TEAM CHRONIC DISEASE VISIT ANNUAL PCP TEAM CHRONIC DISEASE VISIT [facility] Start: 12-12-2022 BP CONTROLLED (<130/80) BP CONTROLLED (<130/80) [facility] Start: 11-11-2022 [facility] Comment on above: Postponed from 1992 (Declined at t his time) Start: 11-11-2022 ADULT PREVNAR-13 [facility]ULT [facility] Comment on above: Postponed from 1992 (Declined at t his time) Start: 11-11-2022 PNEUMOCOCCAL (1 - PCV) PNEUMOCOCCAL (1 - PCV) [facility] ic Comment on above: Postponed from 1979 (Declined at t his time) Start: 11-01-2022 End: 01-01-2023 ALBUMIN/CREAT RATIO RND UR ALBUMIN/CREAT RATIO RND UR Lab Routine New onset type 2 diabetes mellitus (HCC) Expected: 11/01/2022, Expires: 01/01/2023 [facility] Work Phone: Comment on above: Expected: 11/01/2022, Expires: 3 Start: 10-11-2022 End: 12-11-2022 25-hydroxyvitamin D3 [Mass/volume] in Serum or Plasma VITAMIN D 25 HYDROXY Lab Routine Vitamin D deficiency Expected: 10/11/2022, Expires: 12/11/2022 [facility] Work Phone: Comment on above: Expected: 10/11/2022, Expires: 3 Start: 10-11-2022 End: 12-11-2022 Cobalamin (Vitamin B12) [Mass/volume] in Serum or Plasma VITAMIN B12 BLOOD Lab Routine IFG (impaired fasting glucose) Expected: 10/11/2022, Expires: 12/11/2022 [facility] Work Phone: Comment on above: Expected: 10/11/2022, Expires: 3 Start: 10-11-2022 End: 12-11-2022 Comprehensive metabolic 2000 panel - Serum or Plasma COMP METABOLIC PANEL Lab Routine IFG (impaired fasting glucose) Expected: 10/11/2022, Expires: 12/11/2022 [facility] Work Phone: Comment on above: Expected: 10/11/2022, Expires: 3 Start: 10-11-2022 End: 12-11-2022 Hemoglobin A1c in Blood HGB A1C Lab Routine IFG (impaired fasting glucose) Expected: 10/11/2022, Expires: 12/11/2022 [facility] Work Phone: Comment on above: Expected: 10/11/2022, Expires: 3 Start: 10-11-2022 End: 12-11-2022 Lipid 1996 panel - Serum or Plasma LIPID PANEL BASIC Lab Routine Dyslipidemia Expected: 10/11/2022, Expires: 12/11/2022 [facility] Work Phone: Comment on above: Expected: 10/11/2022, Expires: 3 Start: 08-30-2022 BP CONTROLLED (<130/80) BP CONTROLLED (<130/80) [facility] Start: 06-03-2022 End: 08-03-2022 Hepatic function 2000 panel - Serum or Plasma HEPATIC FUNCTION PNL Lab Routine Elevated alanine aminotransferase (ALT) level Expected: 06/03/2022, Expires: 08/03/2022 [facility] Work Phone: Comment on above: Expected: 06/03/2022, Expires: 2 Start: 05-19-2022 End: 07-19-2022 C reactive protein [Mass/volume] in Serum or Plasma [facility] Work Phone: Comment on above: Expected: 05/19/2022, Expires: 2 Start: 05-19-2022 End: 07-19-2022 CBC W Auto Differential panel - Blood [facility] Work Phone: Comment on above: Expected: 05/19/2022, Expires: 2 Start: 05-19-2022 End: 07-19-2022 Comprehensive metabolic 2000 panel - Serum or Plasma [facility] Work Phone: Comment on above: Expected: 05/19/2022, Expires: 2 Start: 05-19-2022 End: 07-19-2022 Thyrotropin [Units/volume] in Serum or Plasma [facility] Work Phone: Comment on above: Expected: 05/19/2022, Expires: 2 Start: 05-11-2022 Influenza vaccination [facility] Start: 12-27-2021 Colonoscopy COLONOSCOPY [facility] Start: 12-27-2021 COLORECTAL CANCER SCREENING COLORECTAL CANCER SCREENING [facility] Start: 12-27-2021 Screening for malignant neoplasm of colon [facility] Start: 10-23-2021 COVID-19 VACCINE (3 - Booster for Pfizer series) COVID-19 VACCINE (3 - Booster for Pfizer series) [facility] Start: 07-18-2021 COVID-19 VACCINE (3 - Booster for Pfizer series) COVID-19 VACCINE (3 - Booster for Pfizer series) [facility] Start: 2018 COLOGUARD (FIT-DNA) COLOGUARD (FIT-DNA) [facility] Start: [address] COLONOGRAPHY [facility] Start: 2018 FECAL OCCULT BLOOD FECAL OCCULT BLOOD [facility] Start: 2018 Screening for malignant neoplasm of colon [facility] Start: 2018 SIGMOIDOSCOPY SIGMOIDOSCOPY [facility] Start: 09-23-2006 Hepatitis B screening URINE ALBUMIN:CREATININE RATIO [facility] Start: 1992 Hepatitis B Vaccine (1 of 3 - 19+ 3-dose series) Hepatitis B Vaccine (1 of 3 - 19+ 3-dose series) [facility] Start: 1992 Pneumococcal Vaccine: 50+ (1 of 2 - PCV) Pneumococcal Vaccine: 50+ (1 of 2 - PCV) [facility] Start: 1992 TWO PNEUMOVAX 5 YEARS APART PRIOR TO AGE 65 (#1) TWO PNEUMOVAX 5 YEARS APART PRIOR TO AGE 65 (#1) [facility] Start: 1983 Glaucoma screening Dilated Retinal Exam [facility] Start: 1983 Hepatitis C antibody, confirmatory test DILATED RETINAL EXAM [facility] Start: 1979 PNEUMOCOCCAL (1 - PCV) PNEUMOCOCCAL (1 - PCV) [facility] ic Start: 1979 [facility] Start: 1973 HEPATITIS B (1 of 3 - 3-dose series) HEPATITIS B (1 of 3 - 3-dose series) [facility] 25-hydroxyvitamin D3 [Mass/volume] in Serum or Plasma VITAMIN D 25 HYDROXY Lab Routine Vitamin D deficiency Fatigue, unspecified type 06/18/2024 4:41 PM EDT [facility] Cholesterol [Mass/vo lume] in Serum or Plasma [facility] Cholesterol in HDL [Mass/volume] in Serum or Plasma [facility] Cobalamin (Vitamin B 12) [Mass/volume] in Serum or Plasma VITAMIN B12 Lab Routine IFG (impaired fasting glucose) Fatigue, unspecified type 06/18/2024 4:41 PM EDT [facility] Comprehensive metabo lic 2000 panel - Serum or Plasma COMPREHENSIVE METABOLIC PANEL Lab Routine Hyperlipidemia, mixed 06/18/2024 4:41 PM EDT [facility] End: 11-05-2025 CT Chest for screening WO contrast CT LUNG SCREEN WO IVCON Radiology Routine Tobacco abuse Encounter for screening for lung cancer 1 Occurrences starting 10/06/2024 until 11/05/2025 [facility] Work Phone: Comment on above: 1 Occurrences starting 10/06/2024 until 11/05/2025 End: 07-16-2025 CT Chest WO contrast CT CHEST WO IVCON Radiology Routine Pulmonary nodule 1 Occurrences starting 06/16/2024 until 07/16/2025 [facility] Comment on above: 1 Occurrences starting 06/16/2024 until 07/16/2025 CT Chest WO contrast CT CHEST WO IVCON Radiology Routine Pulmonary nodule 06/23/2024 3:30 PM EDT [facility] Work Phone: End: 06-18-2023 Ct soft tissue neck w/contrast material CT NECK SOFT TISSUE W IVCON Radiology Routine Localized swelling, mass and lump, neck Neck pain without injury Localized enlarged lymph nodes 1 Occurrences starting 05/19/2022 until 06/18/2023 [facility] Work Phone: Comment on above: 1 Occurrences starting 05/19/2022 until 06/18/2023 End: 10-22-2023 Ct thorax w/o contrast material CT CHEST WO IVCON Radiology Routine Wheezing Bronchitis 1 Occurrences starting 09/22/2022 until 10/22/2023 [facility] Work Phone: Comment on above: 1 Occurrences starting 09/22/2022 until 10/22/2023 End: 10-11-2023 Echocardiography [facility] Cardiology Routine LVH (left ventricular hypertrophy) 1 Occurrences starting 10/11/2022 until 10/11/2023 [facility] Work Phone: Comment on above: 1 Occurrences starting 10/11/2022 until 10/11/2023 End: 06-16-2025 Echocardiography [facility] Cardiology Routine LVH (left ventricular hypertrophy) 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 Comment on above: 1 Occurrences starting 06/16/2024 until 06/16/2025 End: 02-07-2025 EGD DIAGNOSTIC EGD DIAGNOSTIC Endoscopy Routine Screening for colon cancer Hyperlipidemia, mixed Gastroesophageal reflux disease, unspecified whether esophagitis present Irritable bowel syndrome with constipation Diarrhea, unspecified type Personal history of colonic polyps 1 Occurrences starting 02/08/2024 until 02/07/2025 [facility] Comment on above: 1 Occurrences starting 02/08/2024 until 02/07/2025 Low density lipoprot ein cholesterol measurement [facility] End: 11-01-2023 LUNG VOLUMES LUNG VOLUMES PFT Routine Bronchitis Asthma, moderate persistent, well-controlled Sarcoidosis of lung (HCC) 1 Occurrences starting 10/02/2022 until 11/01/2023 [facility] Work Phone: Comment on above: 1 Occurrences starting 10/02/2022 until 11/01/2023 Methylmalonate [Moles/volume] in Serum or Plasma METHYLMALONIC ACID Lab Routine Vitamin B12 deficiency 06/18/2024 4:41 PM EDT [facility] End: 02-11-2026 MR Spleen WO contrast MRI SPLEEN WO IVCON Radiology Routine Splenomegaly, not elsewhere classified Left sided abdominal pain 1 Occurrences starting 01/12/2025 until 02/11/2026 [facility] Work Phone: Comment on above: 1 Occurrences starting 01/12/2025 until 02/11/2026 End: 11-08-2025 NITRIC OXIDE, EXHALED NITRIC OXIDE, EXHALED PFT Routine Asthma, moderate persistent, poorly-controlled 1 Occurrences starting 10/09/2024 until 11/08/2025 [facility] Work Phone: Comment on above: 1 Occurrences starting 10/09/2024 until 11/08/2025 End: 02-06-2026 NITRIC OXIDE, EXHALED NITRIC OXIDE, EXHALED PFT Routine Asthma, moderate persistent, poorly-controlled (HCC) 1 Occurrences starting 01/07/2025 until 02/06/2026 [facility] Comment on above: 1 Occurrences starting 01/07/2025 until 02/06/2026 Patient Education ED Muscle Stra in, Extremity [facility] Work Phone: Patient referral [facility] Work Phone: End: 01-07-2026 Polysomnogram POLYSOMNOGRAM (PSG) Procedures Routine Daytime sleepiness 1 Occurrences starting 01/07/2025 until 01/07/2026 [facility] Work Phone: Comment on above: 1 Occurrences starting 01/07/2025 until 01/07/2026 End: 02-07-2025 Screening colonoscopy COLONOSCOPY SCREENING Endoscopy Routine Screening for colon cancer Hyperlipidemia, mixed Gastroesophageal reflux disease, unspecified whether esophagitis present Irritable bowel syndrome with constipation Diarrhea, unspecified type Personal history of colonic polyps 1 Occurrences starting 02/08/2024 until 02/07/2025 [facility] Work Phone: Comment on above: 1 Occurrences starting 02/08/2024 until 02/07/2025 End: 11-01-2023 SPIROMETRY - BASELINE AND POST DILATOR SPIROMETRY - BASELINE AND POST DILATOR PFT Routine Bronchitis Asthma, moderate persistent, well-controlled Sarcoidosis of lung (HCC) 1 Occurrences starting 10/02/2022 until 11/01/2023 [facility] Work Phone: Comment on above: 1 Occurrences starting 10/02/2022 until 11/01/2023 End: 11-08-2025 SPIROMETRY - BASELINE AND POST DILATOR SPIROMETRY - BASELINE AND POST DILATOR PFT Routine Asthma, moderate persistent, poorly-controlled 1 Occurrences starting 10/09/2024 until 11/08/2025 [facility] Comment on above: 1 Occurrences starting 10/09/2024 until 11/08/2025 SPIROMETRY - BASELIN E AND POST DILATOR SPIROMETRY - BASELINE AND POST DILATOR PFT Routine Asthma, moderate persistent, poorly-controlled (HCC) 01/07/2025 2:28 PM EDT [facility] Work Phone: SURGICAL PATHOLOGY [facility] Work Phone: Comment on above: Release Upon Ordering for 1 Occurrences starting 04/16/2024, 1 completed Thyrotropin [Units/volume] in Serum or Plasma THYROID STIMULATING HORMONE Lab Routine Hyperlipidemia, mixed IFG (impaired fasting glucose) Fatigue, unspecified type 06/18/2024 4:41 PM EDT [facility] Thyroxine (T4) free [Mass/volume] in Serum or Plasma T4 FREE/FREE THYROXINE Lab Routine Hyperlipidemia, mixed IFG (impaired fasting glucose) Fatigue, unspecified type 06/18/2024 4:41 PM EDT [facility] Total cholesterol:HD L ratio measurement [facility] Triglycerides measurement [facility] Troponin T.cardiac [Mass/volume] in Serum or Plasma by High sensitivity method [facility] UA DIP B/O UA DIP B/O Lab R outine Encounter for examination required by Department of Transportation (DOT) Ordered: 12/12/2021 [facility] Work Phone: Comment on above: Ordered: 12/12/2021 VLDL cholesterol measurement [facility] XR Foot - left AP an d Lateral and oblique XR FOOT GENERAL 3V AP/LAT/OBL LEFT Radiology Routine Foot pain, left 06/16/2024 4:52 PM EDT [facility] End: 07-16-2025 XR Foot - left AP and Lateral and oblique XR FOOT GENERAL 3V AP/LAT/OBL LEFT Radiology Routine Foot pain, left 1 Occurrences starting 06/16/2024 until 07/16/2025 [facility] Comment on above: 1 Occurrences starting 06/16/2024 until 07/16/2025 XR Hand - left PA an d Lateral and Oblique XR HAND GENERAL 3V PA/LAT/OBL LEFT Radiology Routine Pain of left thumb 06/16/2024 4:52 PM EDT [facility] Work Phone: End: 07-16-2025 XR Hand - left PA and Lateral and Oblique XR HAND GENERAL 3V PA/LAT/OBL LEFT Radiology Routine Pain of left thumb 1 Occurrences starting 06/16/2024 until 07/16/2025 [facility] Work Phone: Comment on above: 1 Occurrences starting 06/16/2024 until 07/16/2025 End: 12-01-2023 XR SHOULDER GENERAL 3V OR MORE AP/TRUE AP/OTHER RIGHT XR SHOULDER GENERAL 3V OR MORE AP/TRUE AP/OTHER RIGHT Radiology Routine Acute pain of right shoulder 1 Occurrences starting 11/01/2022 until 12/01/2023 [facility] Work Phone: Comment on above: 1 Occurrences starting 11/01/2022 until 12/01/2023 XR SHOULDER GENERAL 3V OR MORE AP/TRUE AP/OTHER RIGHT XR SHOULDER GENERAL 3V OR MORE AP/TRUE AP/OTHER RIGHT Radiology Routine Acute pain of right shoulder 11/01/2022 3:32 PM EST [facility] Work Phone: [facility] Immunizations Immunization Date Immunization Notes Care Provider Fa [facility] 05-10-2021 tetanus toxoid, redu berny diphtheria toxoid, and acellular pertussis vaccine, adsorbed ERIK Ludwig PA-C Work Phone: [facility] Work Phone: 05-02-2021 COVID-19 vaccine, ag e 12+ yr (Yumber-MyFuelUp - PURPLE TOP) ERIK Ludwig PA-C Work Phone: [facility] Work Phone: 03-21-2021 tetanus toxoid, redu berny diphtheria toxoid, and acellular pertussis vaccine, adsorbed Dr. Avni Salcedo Work Phone: [facility] 06-20-2017 influenza virus vaccine, unspecified formulation Mri (I-Stat/1.5t) Work Phone: [facility] Payers Date Payer Category Payer Self-pay [id number] 2024 Medicaid [id number] 2024 Private Health Insurance [employer]NA [employer] MEDICAID [facility] [id number] 2024-Present [address] [address] [place] [address] Medicaid [id number] 2024 Medicaid [id number] 2021 Unknown [employer] PRE SYDNI FULLY INSURED [id number] 2021-Present [phone] [address] [place] [address] PPO [id number] 2016 Unknown [id number] 2015 Unknown 1975 Unknown [id number] 1975 Unknown [id number] Unknown [id number] Unknown [id number] Social History Date Type Detail Facility Start: 12-13-2016 End: 02-21-2025 Tobacco smoking status NHIS Ex-smoker [facility] Work Phone: Start: 04-03-1991 End: 11-15-2016 History of tobacco use Current smoker [facility] Work Phone: Start: 04-03-1991 End: 11-15-2016 History of tobacco use Cigarette Smoker [facility] Work Phone: Start: 12-13-2016 End: 08-15-2020 Cigarettes smoked current (pack per day) - Reported 1 [facility] Start: 12-13-2016 End: 06-16-2024 Tobacco use and exposure Smokeless tobacco non-user [facility] Work Phone: Start: 12-12-2021 End: 01-12-2025 Alcohol intake Current drinker of alcohol (finding) [facility] Start: 04-21-2020 End: 05-27-2020 History SDOH Alcohol Frequency 5 [facility] Start: 05-27-2020 End: 08-16-2020 History SDOH Alcohol Std Drinks 2 [facility] Start: 05-27-2020 End: 08-16-2020 History SDOH Alcohol Binge 3 [facility] Start: 04-03-2017 History SDOH Alcohol Comment OCCASIONALLY. [facility] Start: 10-29-2019 End: 05-27-2020 History SDOH Social Connections Phone 98 [facility] Start: 05-27-2020 History SDOH Physical Activity DPW 0 [facility] Start: 10-29-2019 End: 08-16-2020 History SDOH Food Worry 1 [facility] Start: 10-29-2019 Education 12 [facility] Start: 03-06-2019 End: 07-10-2022 Tobacco Comment Childhood home smoke free; at girlfriends 2 nights and smoker in home. [facility] Start: 1975 Sex Assigned At Male [facility] Start: 08-24-2020 End: 07-10-2022 Exposure to SARS-CoV-2 (event) Not sure [facility] Start: 11-16-2022 Tobacco smoking status NHIS Unknown if ever smoked [facility] Start: 11-30-2016 None [facility] Start: 11-30-2016 Spouse/ Significant Other [facility] Start: 11-30-2016 Non-smoker [facility] Start: 05-27-2020 End: 08-15-2020 Social connection and isolation panel [facility] Frequency of Communication with Friends and Family Not on file [facility] How often to you hav e a drink containing alcohol? 4 or more times a week [facility] How many standard dr inks containing alcohol do you have on a typical day? 3 or 4 [facility] How often do you hav e 6 or more drinks on 1 occasion? Monthly [facility] How hard is it for y ou to pay for the very basics like food, housing, medical care, and heating Somewhat hard [facility] Do you feel stress - tense, restless, nervous, or anxious, or unable to sleep at night because your mind is troubled all the time - these days [OSQ] Very much [facility] (I/We) worried wheth er (my/our) food would run out before (I/we) got money to buy more. Never true [facility] At any time in the p ast 12 months, were you homeless or living in longterm [including now]? No [facility] Start: 11-08-2021 Gender identity Identifies as male gender (finding) [facility] Start: 12-31-2018 Sexual orientation Heterosexual (finding) [facility] How often do you hav e 6 or more drinks on 1 occasion? Monthly [facility] Functional Status Date Assessment Result Facility 03-15-2016 Are you deaf, or do you have serious difficulty hearing No 03/15/2016 3:48 PM [facility] Matthew Horne III, MD No [facility] 03-15-2016 Are you blind, or do you have serious difficulty seeing, even when wearing glasses No 03/15/2016 3:48 PM Matthew Johnson III, MD No [facility] 03-15-2016 Do you have serious difficulty walking or climbing stairs No 03/15/2016 3:48 PM Matthew Johnson III, MD No [facility] 03-15-2016 Do you have difficul ty dressing or bathing No 03/15/2016 3:48 PM Matthew Johnson III, MD No [facility] 03-15-2016 Because of a physica l, mental, or emotional condition, do you have difficulty doing errands alone such as visiting a physician's office or shopping No 03/15/2016 3:48 PM Matthew Johnson III, MD No [facility] Mental Status Date Assessment Result Facility 02-21-2025 Cognitive function Voice/Name [facility] Work Phone: 03-15-2016 Because of a physica l, mental, or emotional condition, do you have serious difficulty concentrating, remembering, or making decisions No 03/15/2016 3:48 PM EDT Matthew Horne III, MD No [facility] Clinical Notes 08-20-2006 to 02-21-2025 Note Date & Type Note Facility 02-21-2025 Discharge summary [facility] 02-21-2025 Discharge summary Note Date/Time February 21, 2025 2:33pm [facility] Medical Records Department [address] [place] [address] Emergency Department Summary 02/21/25 MR#: [id number] Acct: [id number] Name: JAKE CHAIREZ Rep #:[id number] : 1975 49 From: Eduardo Hernandez MD [...] TAD Risk Factors: Negative for Marfan's Syndrome [facility] Medical History Chronic neck and back pain [...] quadrant tenderness. Moving all 4 extremities. 5-5 host/hostess head strength. Dorsi plantarflexionintact. Equal symmetrical radial pulses. [...] % (Auto) 62.2 Lymph % (Auto) 24.0 [place] % (Auto) 9.6 Eos % (Auto) 2.8 [...] atelectasis. No definite focal consolidations. Reading Location: [facility] Chest x-ray, portable, single view interpreted by myself and radiologist shows no acute abnormality. Normal cardiac silhouette. Normal mediastinum. Normal lung wilcxo. Rhythm Strip Rhythm Strip: Sinus Tach Rate: 108 Ectopy: None EKG Initial EKG: Attestation: I personally reviewed and interpreted this EKG as follows: Interpretation: No Acute Injury Pattern and Sinus Tachycardia Comments: Sinus tachycardia rate of 108 no acute signs of MT or ischemia. Discharge Plan Triage Chief Complaint: [...] DO [Primary Care Provider] - Print Language: [place] African Disposition Disposition: Acute Care Hospital [facility] What to do if you have Problems For any increased pain, shortness of breath, bleeding, nausea or vomiting, chestpain, or any unexpected problems, contact your Primary Care Provider. Call [facility] ([phone]) or report to the closest Emergency Room. Call 911 if necessary. 02/21/25 1433 <Electronically signed by Eduardo Hernandez MD> Cosigner Signature (if applicable): CC: Dr. Avni Salcedo DO ~ Signed [facility] Work Phone: 1(429) 382-711606-14-2025 Radiology Diagnostic study note [facility] Imaging Services [address] [place] [address] Chest 1 View (Portable) MR#: [id number] Acct: [id number] Name: JAKE CHAIREZ Rep #: [id number] : 1975 M 49 From: Jada Perez MD PCP: Dr. Avni Salcedo DO Status: RE G ER Study:Chest 1 View (Portable) Date of Exam: 02/21/25 Exam# [id number] Ordering Dr: Carlos Hernandez MD PROCEDURE: CHEST 1 VIEW (PORTABLE) 02/21/2025 REASON FOR EXAM: CHEST PAIN TECHNIQUE: Frontal view of the chest. COMPARISON: None FINDINGS: Left lower lobe subsegmental atelectasis. No definite focal consolidations. Nopneumothorax or pleural effusions. Cardiac silhouette is within normal limits. RAD/Chest 1 View (Portable) IMPRESSION: Left lower lobe subsegmental atelectasis. No definite focal consolidations. Reading Location: [id number] CC: Dr. Eduardo Hernandez MD; Dr. Avni Salcedo DO ~ Squaring Shear Operator: Signed [facility]06-14-2025 History of Present illness Narrative* Adrianna Meza [...] No current chest pain. documented in this encounterOhiohealth [facility]25 Telephone encounter Note * Telephone Encounter - Shanna Andres MA - 02/05/2025 2:20 PM EDT Patient informed and verbalized understanding. Shanna Andres MA [facility]05-29-2025 Miscellaneous Notes* Telephone Encounter - Shanna Andres [...] Order has been cancelled. documented in this encounterOhiohealth Arthur [facility]05-28-2025 Telephone encounter Note * Telephone Encounter - Elmer White MD - 02/04/2025 4:38 PM EDT Let patient know his insurance is denying the MRI. When I went back and looked at the x-ray report I seen that it mentioned that this was similar to CT from 2012 and MRI from 2018. Therefore I would not pursue any further imaging. Order has been cancelled. [facility] Work Phone: [phone] Telephone encounter Note* Telephone Encounter - Yolanda Girard RN - 01/14/2025 4:18 PM EDT Patient notified of results and provider's instructions. Patient verbalizes understanding. Yolanda Girard RN [facility]05-07-2025 Miscellaneous Notes* Telephone Encounter - Yolanda Girard [...] count were all ok. documented in this encounterOhiohealth Arthur [facility]05-07-2025 Telephone encounter Note * Telephone Encounter - Arlyn De Leon MA - 01/14/2025 2:55 PM EDT Left message for patient to contact office. Arlyn De Leon MA [facility]05-06-2025 Telephone encounter Note* Telephone Encounter - Elmer White MD - 01/13/2025 5:26 PM EDT Let patient know his liver functions, pancreactic functions and blood count were all ok. [facility] Work Phone: [phone]) 108-500005-06-2025 Telephone encounter Note* Telephone Encounter - Liz Bryant MA - 01/13/2025 2:42 PM EDT Pt notified and states that he does not want to restart the medication at this time. Pt states he would like to try working on his diet first and see if he can get it down that way before restarting medications. Liz Bryant MA [facility]05-06-2025 Miscellaneous Notes* Telephone Encounter - Liz Bryant [...] open to restarting medication? documented in this encounterOhiohealth Arthur [facility]05-06-2025 Telephone encounter Note * Telephone Encounter - Tavon Valencia APRN.EARTH BORING MACHINE OPERATOR - 01/13/2025 2:27 PM EDT Please let patient know his hgba1c has increased from 5.8 to 7.1. It appears patient has been on metformin in the past and may need to go back on it due to sudden increase in BS. Is patient open to restarting medication? [facility]05-06-2025 Telephone encounter Note* Telephone Encounter - Elmer White MD - 01/13/2025 7:58 AM EDT Noted. [facility]05-06-2025 Miscellaneous Notes* Telephone Encounter - Elmer White [...] the spleen. Order placed. documented in this encounterOhiohealth Arthur [facility]05-05-2025 Telephone encounter Note * Telephone Encounter - Arlyn De Leon MA - 01/12/2025 4:35 PM EDT Patient notified and voiced understanding. He is approved for a MRI lumbar. He would like to do these together once approved. As he has issuesbeing the MRI machine. He is going to let us know. Arlyn De Leon MA [facility]05-05-2025 Telephone encounter Note* Telephone Encounter - Elmer White MD - 01/12/2025 3:58 PM EDT Let patient know x-ray showed no acute findings. His spleen still appears enlarged. Want to get a MRI to re-look at the spleen. Order placed. [facility] History of Present illness Narrative* Pattie Mejia [...] PATIENT PRESENTS WITH AN IMPLANTABLE OR ATTACHED FLUID DESIGNER: No RADIOLOGY DEPARTMENT: General X-ray: Exam(s) Completed: Rib X-Ray: Left PERIPHERAL IV DATA: Not applicable SIGNED BY: RT Evelio(R) January 12, 2025 3:09 PM documented in this encounterOhiohealth Arthur G.[facility]05-05-2025 NoteHNO ID: [id number] Author: PATTIE MEJIA RT(R) Service: Radiology Author [...] PATIENT PRESENTS WITH AN IMPLANTABLE OR ATTACHED FLUID DESIGNER: No RADIOLOGY DEPARTMENT: General X-ray: Exam(s) Completed: Rib X-Ray: Left PERIPHERAL IV DATA: Not applicable SIGNED BY: RT Evelio(R) January 12, 2025 3:09 [facility]05-05-2025 NoteHNO ID: [id number] Author: ELMER WHITE MD Service: ? Author [...] daily HYDROcodone-Ibuprofen (VICOPROFEN) 7 (more content not included)...[facility]05-05-2025 History of Present illness Narrative* Elmer [...] needle aspiration biopsy of nodes, and bronchoalveolar scoruv02/2017. Type 2 diabetes (HCC) 10/26/2022 Unspecified asthma(493.90) [...] 1 capsule by mouth once daily. rizatriptan (MAXALT-SCROLL ASSEMBLER) 10 mg disintegrating tablet Take 1 tablet [...] LIPASE Elmer White MD documented in this encounterOhiohealth Arthur G.[facility]. [facility]05-01-2025 NoteHNO ID: [id number] Author: TAVON VALENCIA APRN.EARTH BORING MACHINE OPERATOR Service: ? Author Type: Nurse Practitioner [...] needed for wheezin (more content not included)... [facility]05-01-2025 History of Present illness Narrative* Tavon Valencia ANA.EARTH BORING MACHINE OPERATOR - 01/08/2025 2:04 PM EDT Chief Complaint [...] needle aspiration biopsy of nodes, and bronchoalveolar tgaktv69/2017. Type 2 diabetes (HCC) 10/26/2022 Unspecified asthma(493.90) [...] 1 capsule by mouth once daily. rizatriptan (MAXALT-SCROLL ASSEMBLER) 10 mg disintegrating tablet Take 1 tablet [...] changed. Tavon Valencia APRN.MELISSA documented in this encounterOhiohealth Arthur G.[facility]04-30-2025 Instructions* Patient Instructions* Yoon Magana APRN.CNP - [...] Plan on having a sleep study done. [phone] you can call to get the sleep study scheduled. documented in this encounterOhiohealth Arthur G.[facility]. [facility]04-30-2025 History of Present illness Narrative* Yoon Magana [...] history of colonic polyps Sarcoidosis of lung ([facility]) 04/2017 Transbronchial biopsy, transbronchial needle aspiration biopsy of nodes, and bronchoalveolar iewfhy75/2017. Type 2 diabetes ([facility]) 10/26/2022 Unspecified asthma(493.90) Allergies: Advair Diskus [...] 10 mg disintegrating tablet Commonly known as: MAXALT-SCROLL ASSEMBLER Take 1 tablet by mouth as needed [...] nodules. No new or enlarging pulmonary nodules. Squaring Shear Operator: ELMO Transcribe Date/Time: Jun 26 2024 7:33A Dictated by : MYNOR OSORIO MD This examination was interpreted and the report reviewed and electronically signed by: MYNOR OSORIO MD on Jun 26 2024 7:43AM EST Results-Findings * * *Final Report* * * DATE OF EXAM: Jun 23 2024 3:30PM [facility] 0541 - CT CHEST WO IVCON [...] - continued cessation - recently enrolled in [facility] F/u 3 months Portions of this documentation were copied and pasted from previous office visit notes in order to provide a cohesive continuity of the history. The note has been reviewed and edited and updated as necessary. Yoon Magana APRN.CNP I spent a total of 42 minutes on the date of the service which included preparing to see the patient, [id number] patient care, completing clinical documentation, performing a medically appropriate examination, counseling and educating the patient/family/caregiver, ordering medications, tests, or p rocedures, and communicating results to the patient/family/caregiver. documented in this encounterOhiohealth Arthur [facility]04-30-2025 NoteHNO ID: [id number] Author: YOON MAGANA APRN.CNP Service: ? Author [...] asthma symptoms since COVID infection in 2020. [facility] 09/2024 with poorly controlled Asthma symptoms [...] history of colonic polyps Sarcoidosis of lung ([facility]) 04/2017 Transbronchial biopsy, transbronchial needle aspiration biopsy of nodes, and bronchoalveolar lavage 04/2017. Type 2 diabetes ([facility]) 10/26/2022 Unspecified asthma(493.90) Allergies: Advair Diskus [...] 60 mg daily bu (more content not included)...[facility]04-30-2025 NoteHNO ID: [id number] Author: AMOS MOORE RPFT Service: ? Author [...] Chairez DATE: January 07, 2025 TIME: 2:50 [facility]04-30-2025 Procedure note* Amos Moore RPFT - [...] DATE: January 07, 2025 TIME: 2:50 PM [facility]04-30-2025 Procedure note* Amos Moore RPFT - 01/07/2025 [...] 2025 TIME: 2:50 PM documented in this encounterOhiohealth Arthur [facility]. [facility]02-05-2025 Telephone encounter Note * Telephone Encounter - [...] was sooner than that. Pt will contact [facility] pharmacy to see if that prescription [...] Levy RN October 15, 2024 3:35 PM [facility] [facility]02[facility]05[facility] Miscellaneous Notes* Telephone Encounter - Lisette Levy [...] was sooner than that. Pt will contact [facility] pharmacy to see if that prescription [...] 15, 2024 3:35 PM documented in this encounterOhiohealth Arthur [facility]-30-[facility]25 History of Present illness Narrative* Shayla Rogers MD - 10/09/2024 2:45 PM EST Images from the original note were not included. . Respiratory Klemme Note Patient name: Jake Chairez PCP: Avni [...] DATE OF EXAM: Jun 23 2024 3:30PM [facility] 0541 - CT CHEST WO IVCON [...] history of colonic polyps Sarcoidosis of lung ([facility]) 04/2017 Transbronchial biopsy, transbronchial needle aspiration biopsy of nodes, and bronchoalveolar oytzlt08/2017. Type 2 diabetes ([facility]) 10/26/2022 Unspecified asthma(493.90) ALLERGIES Allergen Reactions [...] 8 hours as needed for pain. fexofenadine (OTNYA) 180 mg tablet Take 1 tablet by mouth once daily as needed. ipratropium-albuterol (DUONEB) 0.5 mg-3 mg(2.5 mg base)/3 mL nebu Inhale 3 mL as instructed every 6hours as needed (wheezing/shortness of breath.). potassium chloride (K-TAB) 10 mEq tablet Take 1 tablet by mouth daily with breakfast. omeprazole (PRILOSEC) 40 mg capsule Take 1 capsule by mouth once daily. rizatriptan (MAXALT-SCROLL ASSEMBLER) 10 mg disintegrating tablet Take 1 tablet [...] lung cancer screening Shayla Rogers MD Respiratory Klemme documented in this encounterOhiohealth Arthur [facility]01-30-2025 NoteHNO ID: [id number] Author: SHAYLA ROGERS MD Service: ? Author Type: Physician Type: Progress Notes Filed: 10/09/2024 16:40 Note Text: . Respiratory Klemme Note Patient name: Jake Chairez PCP: Avni [...] DATE OF EXAM: Jun 23 2024 3:30PM [facility] 0541 - CT CHEST WO IVCON [...] history of colonic polyps Sarcoidosis of lung ([facility]) 04/2017 Transbronchial biopsy, transbronchial needle aspiration biopsy of nodes, and bronchoalveolar lavage 04/2017. Type 2 diabetes ([facility]) 10/26/2022 Unspecified asthma(493.90) ALLERGIES Allergen Reactions [...] mouth daily at bedtime. (more content not included)...[facility]01-27-2025 Telephone encounter Note* Telephone Encounter - Kailyn Rubio LPN - 10/06/2024 3:53 PM EST Images from the original note were not included. Electronic PA rec'd and completed for budesonide. This was approved rior authorization approved Payer: [facility] Note from payer: Your PA request for [id number] was approved for 365 days. The PA# assigned is [id number]. Approval Details Authorization number: [id number] Authorized from October 06, 2024 to October 05, 2025 Electronic appeal: Not supported View History Pharmacy Benefits Open Encounter JAKE CHAIREZ - MEDICAID ([facility]) Covered: Retail, Mail Order Unknown: Specialty, Long-Term Care BIN: [id number] : 1975 Group ID: PCN: [id number] Legal sex: M Group name: Address: [address] [address] Medication Being Authorized budesonide (PULMICORT) 0.5 mg/2 mL nebulizer solution Use 2 mL via nebulizer once daily. Dispense: 2 mL Refills: 2 Start: 10/06/2024 Class: Normal Diagnoses: Asthma, moderate persistent, well-controlled; Chronic allergic rhinitis This order has been released to its destination. To be filled at: [facility] [address] [place] [address] Pharmacy notified. [facility]01-27-[facility]25 Miscellaneous Notes* Telephone Encounter - Kailyn Rubio LPN - 10/06/2024 3:53 PM EST Images from the original note were not included. Electronic PA rec'd and completed for budesonide. This was approved rior authorization approved Payer: [facility] Note from payer: Your PA request for [id number] was approved for 365 days. The PA# assigned is [id number]. Approval Details Authorization number: [id number] Authorized from October 06, 2024 to October 05, 2025 Electronic appeal: Not supported View History Pharmacy Benefits Open Encounter JAKE CHAIREZ - MEDICAID ([facility]) Covered: Retail, Mail Order Unknown: Specialty, Long-Term Care BIN: [id number] : 1975 Group ID: PCN: [id number] Legal sex: M Group name: Address: [place] [address] Medication Being Authorized budesonide (PULMICORT) 0.5 mg/2 mL nebulizer solution Use 2 mL via nebulizer once daily. Dispense: 2 mL Refills: 2 Start: 10/06/2024 Class: Normal Diagnoses: Asthma, moderate persistent, well-controlled; Chronic allergic rhinitis This order has been released to its destination. To be filled at: [facility] [address] [place] [address] Pharmacy notified. documented in this encounterOhiohealth Arthur [facility]01-27-2025 Instructions* Patient Instructions* Elmira Farrar APRN.CNP - [...] to endocrinology. Others Lung Cancer Screening hotline: [phone] Lung Cancer Screening [phone] Billing Questions: or [email or web address] Specialist Providers: (Julia So PA-C; Camila Vincent CNP; Nuria Marley CNP, Ninfa Haines CNP; Kelsey Bautista CNP; EVANGELINA Frazier; Elmira aFrrar CNP; Yoon Paige CNP; Anabel Aparicio CNP; Salome Reich CNP; Chandrika Lakhani PA-C; Cha Casper PA-C; Damaris Mendez CNP; Liz Macedo CNP; Agata Griffin CNP): [phone] documented in this encounterOhiohealth Arthur [facility]01-27-2025 NoteHNO ID: [id number] Author: ELMIRA FARRAR APRN.CNP Service: ? Author [...] 50% of waking hrs. Modified Medical Research [place] Dyspnea Scale (MMRC) I am too breathless [...] 1 capsule by mouth once daily. rizatriptan (MAXALT-SCROLL ASSEMBLER) 10 mg disintegrating tablet Take 1 (more content not included)...[facility]01-27-2025 History of Present illness Narrative* Elmira Farrar APRN.[facility] - 10/06/2024 1:22 PM EST Images from [...] 50% of waking hrs. Modified Medical Research [place] Dyspnea Scale (MMRC) I am too breathless [...] needle aspiration biopsy of nodes, and bronchoalveolar akadrg07/2017. Type 2 diabetes (HCC) 10/26/2022 Unspecified asthma(493.90) [...] 1 capsule by mouth once daily. rizatriptan (MAXALT-SCROLL ASSEMBLER) 10 mg disintegrating tablet Take 1 tablet [...] COVID-19 original vaccine, age 12+ yr, monovalent (Yumber-MyFuelUp - PURPLE TOP) 05/02/2021 05/23/2021 tetanus diphtheria pertussis (Tdap) vaccine, age 7+ yr (ADACEL, BOOSTRIX) 05/10/2021 Colonoscopy: 04/16/2024 Mammogram: DATA REVIEW I have directly visualized the testing documented: Prior Imaging: Last CT/CTA Chest/Lungs CT CHEST WO IVCON Exam End: 06/23/2024 3:30 PM (Final result) Narrative: * * *Final Report* * * DATE OF EXAM: Jun 23 2024 3:30PM [facility] 0541 - CT CHEST WO IVCON [...] nodules. No new or enlarging pulmonary nodules. Squaring Shear Operator: ELMO Transcribe Date/Time: Jun 26 2024 7:33A [...] Testing: SPIROMETRY - BASELINE AND POST DILATOR ([id number]) - ordered on 10/13/22 No textual results for order. PHYSICAL EXAM: BP 124/78 Pulse 100 Resp 20 Wt 75.5 kg (166 lb 6.4 oz) SpO2 98% BMI 26.86 kg/m Deferred ASSESSMENT and RECOMMENDATIONS: 1. Screening for lung cancer: Six year risk for lung cancer: 0.45% [email or web address] I have determined that the patient [...] 06, 2024 1:28 PM documented in this encounterOhiohealth Arthur [facility]01-27-2025 Telephone encounter Note * Telephone Encounter - [...] Coles LPN October 06, 2024 1:22 PM [facility]01-27-2025 Miscellaneous Notes* Telephone Encounter - Shreya Coles [...] 06, 2024 1:22 PM documented in this encounterOhiohealth Arthur [facility]12-23-2024 Telephone encounter Note * Telephone Encounter - Latonya Ritter LPN - 09/01/2024 11:17 AM EST Pt. informed via my Chart. [facility]12-23-2024 Miscellaneous Notes* Telephone Encounter - Latonya West LPN - 09/01/2024 11:17 AM EST Pt. informed via my Chart. * Telephone Encounter - Avni Salcedo DO - 09/01/2024 10:37 AM EST Please inform patient that his iron labs and LFTs are improving, just still borderline Continue same regiment without changes to supplements Avni Salcedo DO documented in this encounterOhiohealth Arthur [facility]12-23-2024 Telephone encounter Note * Telephone Encounter - Avni Salcedo DO - 09/01/2024 10:37 AM EST Please inform patient that his iron labs and LFTs are improving, just still borderline Continue same regiment without changes to supplements Avni Salcedo DO [facility]12-09-2024 Telephone encounter Note* Telephone Encounter - Shayla Nye MA - 08/18/2024 11:20 AM EST Images from the original note were not included. Completed PA through covermymeds and comes back not covered. Patient was notified and aware will need to pay out pocket or get otc cream and insert rectally. Shayla Nye MA [facility]12-09-2024 Miscellaneous Notes* Telephone Encounter - Shayla Nye MA - 08/18/2024 11:20 AM EST Images from the original note were not included. Completed PA through covermymeds and comes back not covered. Patient was notified and aware will need to pay out pocket or get otc cream and insert rectally. Shayla Nye MA documented in this encounterOhiohealth Arthur [facility]12-06-2024 Telephone encounter Note * Telephone Encounter - Analia Lundy RN - 08/15/2024 1:12 PM EST Patient notified labs are ordered. Medication request pending. Analia Lundy RN [facility]12-06-2024 Miscellaneous Notes* Telephone Encounter - Analia Lundy [...] advise, Analia Lundy RN documented in this encounterOhiohealth Arthur [facility]12-06-2024 Telephone encounter Note * Telephone Encounter - [...] Please review and advise, Analia Lundy RN [facility]11-29-2024 Telephone encounter Note* Telephone Encounter - Su Ham APRN.MELISSA - 08/08/2024 10:30 AM EST Noted. Thank you, Su Ham APRN.EARTH BORING MACHINE OPERATOR [facility]11-29-2024 Miscellaneous Notes* Telephone Encounter - Su Ham APRN.CNP - 08/08/2024 10:30 AM EST Noted. Thank you, Su Ham APRN.EARTH BORING MACHINE OPERATOR * Telephone Encounter - Concepcion Rushing LPN - 08/05/2024 8:05 AM EST FYI See [employer] message. documented in this encounterOhiohealth Arthur [facility]11-26-2024 Telephone encounter Note * Telephone Encounter - [...] Rushing LPN August 05, 2024 11:56 AM [facility]11-26-2024 Miscellaneous Notes* Telephone Encounter - Concepcion Rushing [...] 05, 2024 11:56 AM documented in this encounterOhiohealth Arthur [facility]11-26-2024 Telephone encounter Note * Telephone Encounter - Concepcion Rushing LPN - 08/05/2024 8:05 AM EST IRVINGI See [employer] message. [facility]11-15-2024 Telephone encounter Note* Telephone Encounter - Concepcion [...] Rushing LPN July 25, 2024 1:25 PM [facility]11-15-2024 Miscellaneous Notes* Telephone Encounter - Concepcion Rushing [...] 25, 2024 1:25 PM documented in this encounterOhiohealth Arthur [facility]10-24-2024 Telephone encounter Note * Telephone Encounter - Agata Deluca RN - 07/03/2024 11:48 AM EDT Pt called and is notified of providers results. Pt voices understanding. Agata Deluca RN [facility]10-24-2024 Miscellaneous Notes* Telephone Encounter - Agata Deluca RN - 07/03/2024 11:48 AM EDT Pt called and is notified of providers results. Pt voices understanding. Agata Deluca RN * Telephone Encounter - Avni Salcedo DO - 07/02/2024 10:01 PM EDT Please inform patient that overall his echo is stable, no concerns Avni Salcedo DO documented in this encounterOhiohealth Arthur [facility]10-23-2024 Telephone encounter Note * Telephone Encounter - Avni Salcedo DO - 07/02/2024 10:01 PM EDT Please inform patient that overall his echo is stable, no concerns Avni Salcedo DO [facility]10-17-2024 Telephone encounter Note* Telephone Encounter - Ana Almanza LPN - 06/26/2024 11:08 AM EDT Spoke with pt gave information provided. Pt voices understanding. [facility]10-17-2024 Miscellaneous Notes* Telephone Encounter - Ana Almanza [...] weeks Avni Salcedo DO documented in this encounterOhiohealth Arthur [facility]10-17-2024 Telephone encounter Note * Telephone Encounter - Avni Salcedo DO - 06/26/2024 10:17 AM EDT Please inform patient that his recent labs show that his LFTs are slightly high and potassium is slightly low. Need to avoid alcohol as well as make sure taking in <3000 mg a day of tylenol. Recheck labs in 2-3 weeks Avni Salcedo DO [facility]10-15-2024 Telephone encounter Note* Telephone Encounter - Liz Alvarenga MA - 06/24/2024 10:22 AM EDT Patient active MyChart. Patient notified via [employer] message. Liz Alvarenga MA [facility]10-15-2024 Miscellaneous Notes* Telephone Encounter - Liz Alvarenga MA - 06/24/2024 10:22 AM EDT Patient active MyChart. Patient notified via [employer] message. Liz Alvarenga MA * Telephone Encounter [...] pain Avni Salcedo DO documented in this encounterOhiohealth Arthur [facility]10-15-2024 Telephone encounter Note * Telephone Encounter - [...] joint area of pain Avni Salcedo DO [facility]10-14-2024 History of Present illness Narrative* Kelsey Mortensen [...] PATIENT PRESENTS WITH AN IMPLANTABLE OR ATTACHED FLUID DESIGNER: No RADIOLOGY DEPARTMENT: CT; Exam(s) Completed: Chest PERIPHERAL IV DATA: Not applicable SIGNED BY: RT Rico(Jeremías) June 23, 2024 3:59 PM documented in this encounterOhiohealth Arthur [facility]10-14-2024 NoteHNO ID: [id number] Author: KELSEY MORTENSEN RT(Jeremías) Service: ? Author Type: Downstairs Maid Type: Progress Notes Filed: 06/23/2024 15:59 Note [...] PATIENT PRESENTS WITH AN IMPLANTABLE OR ATTACHED FLUID DESIGNER: No RADIOLOGY DEPARTMENT: CT; Exam(s) Completed: Chest PERIPHERAL IV DATA: Not applicable SIGNED BY: RT Rico(R) June 23, 2024 3:59 [facility]10-14-2024 NotePatient Outreach (PULMMN) JAKE CHAIREZ ([id number]) 1975 M Date Time Provider Department 06/23/24 [...] abuse [Z72.0] Order(s):CONSULT LUNG CANCER SCREENING CLINIC [0381584] Order #: [id number]: 1 FUTURE Prescriptions as of 06/26/2024 - [...] by RECTAL route twice daily. - rizatriptan (MAXALT-SCROLL ASSEMBLER) 10 mg disintegrating tablet Take 1 tablet [...] [L57.8] 04/19/2013 Tobacco abus (more content not included)...[facility]10-07-2024 History of Present illness Narrative* Pattie [...] PATIENT PRESENTS WITH AN IMPLANTABLE OR ATTACHED FLUID DESIGNER: No RADIOLOGY DEPARTMENT: General X-ray: Exam(s) Completed: Lower Extremity X- Ray(s): Foot, Left and Wt. Bearing Upper Extremity X-Ray(s): Hand, left PERIPHERAL IV DATA: Not applicable SIGNED BY: RT Evelio(R) June 16, 2024 4:41 PM documented in this encounterOhiohealth Arthur [facility]10-07-2024 NoteHNO ID: [id number] Author: PATTIE MEJIA RT(Jeremías) Service: Radiology Author [...] PATIENT PRESENTS WITH AN IMPLANTABLE OR ATTACHED FLUID DESIGNER: No RADIOLOGY DEPARTMENT: General X-ray: Exam(s) Completed: Lower Extremity X-Ray(s): Foot, Left and Wt. Bearing Upper Extremity X-Ray(s): Hand, left PERIPHERAL IV DATA: Not applicable SIGNED BY: RT Evelio(R) June 16, 2024 4:41 [facility]10-07-2024 NoteHNO ID: [id number] Author: AVNI SALCEDO, DO Service: ? Author [...] Suppository by RECTAL route twice daily. rizatriptan (MAXALT-SCROLL ASSEMBLER) 10 mg disintegrating tablet Take 1 tablet [...] and numbness in ar (more content not included)...[facility]10-07-2024 History of Present illness Narrative* Avni [...] needle aspiration biopsy of nodes, and bronchoalveolar xbtgae32/2017. Type 2 diabetes (HCC) 10/26/2022 Unspecified asthma(493.90) [...] Suppository by RECTAL route twice daily. rizatriptan (MAXALT-SCROLL ASSEMBLER) 10 mg disintegrating tablet Take 1 tablet [...] See patient instructions. Avni Salcedo DO [address] [place] [address] documented in this encounterOhiohealth Arthur [facility]09-27-2024 Telephone encounter Note * Telephone Encounter - [...] Hansen LPN June 06, 2024 3:07 PM [facility]09-27-2024 Miscellaneous Notes* Telephone Encounter - Pepper Hansen [...] 06, 2024 3:07 PM documented in this encounterOhiohealth Arthur [facility]08-19-2024 Telephone encounter Note * Telephone Encounter - [...] Please advise. Thank you. Latonya Ritter LPN. [facility]08-19-2024 Miscellaneous Notes* Telephone Encounter - Latonya West [...] you. Latonya Ritter LPN. documented in this encounterOhiohealth Arthur [facility]08-16-2024 History of Present illness Narrative* Joy Shearer APRN.EARTH BORING MACHINE OPERATOR - 04/25/2024 1:00 PM EDT FOLLOW UP VISIT - ENDOSCOPY Jake Chairez 1975 [id number] REFERRING PHYSICIAN: No referring provider defined for [...] snare. Resected and retrieved. Clip wasplaced. Clip 1st pressman on web press: [employer]. - The entire examined colon is normal. [...] as needed for worsening/no improvement. Joy Shearer APRN.EARTH BORING MACHINE OPERATOR documented in this encounterOhiohealth Arthur G.[facility]08-16-2024 NoteHNO ID: [id number] Author: JOY SHEARER APRN.EARTH BORING MACHINE OPERATOR Service: ? Author Type: Nurse Practitioner Type: Progress Notes Filed: 04/25/2024 13:31 Note Text: FOLLOW UP VISIT - ENDOSCOPY Jake Chairez 1975 [id number] REFERRING PHYSICIAN: No referring provider defined for [...] Resected and retrieved. Clip was placed. Clip 1st pressman on web press: [employer]. - The entire examined colon is normal. [...] as needed for worsening/no improvement. Joy Shearer APRN.[facility]08-07-2024 Attending History and physical note* John Chowdhury [...] needle aspiration biopsy of nodes, and bronchoalveolar trgsyg03/2017. Type 2 diabetes (HCC) 10/26/2022 Unspecified asthma(493.90) [...] Suppository by RECTAL route twice daily. rizatriptan (MAXALT-SCROLL ASSEMBLER) 10 mg disintegrating tablet Take 1 tablet [...] polyps My findings have been communicated to Jietndra via shared medical record. This note will be forwardedto Avni Salcedo DO. Return to Clinic: The patient is instructed to follow-up with me after the testing has been completed. John Chowdhury MD [facility]08-07-2024 Attending History and physical note* John Chowdhury MD - 04/16/2024 10:30 AM EDT Polyp found in 2017 was at 20cm and a tubular adenoma Source Note - John Chowdhury MD - 04/16/2024 10:30 AM EDT HISTORY AND PHYSICAL Jake Gonzalez Mihaela 1975 REFERRING PHYSICIAN: Su Ham APRN.EARTH BORING MACHINE OPERATOR CHIEF COMPLAINT: Consult (Screening for colon [...] today at the request of Su Ham APRN.EARTH BORING MACHINE OPERATOR my opinion and advice regarding need [...] needle aspiration biopsy of nodes, and bronchoalveolar nheesd18/2017. Type 2 diabetes (HCC) 10/26/2022 Unspecified asthma(493.90) [...] Suppository by RECTAL route twice daily. rizatriptan (MAXALT-SCROLL ASSEMBLER) 10 mg disintegrating tablet Take 1 tablet [...] entered by the nurse and reviewed by ok Nursing Notes: Jessica Rogers LPN 02/08/2024 11:38 [...] testing has been completed. John Chowdhury MD [facility]08-07-2024 History and physical note* John Chowdhury MD - 04/16/2024 10:30 AM EDT HISTORY AND PHYSICAL Jake Chairez 1975 REFERRING PHYSICIAN: Su Ham APRN.EARTH BORING MACHINE OPERATOR CHIEF COMPLAINT: Consult (Screening for colon [...] had upper GI endoscopy performed by Dr. Brary which was unremarkable. I performed colonoscopy which [...] today at the request of Su Ham APRN.EARTH BORING MACHINE OPERATOR my opinion and advice regarding need [...] needle aspiration biopsy of nodes, and bronchoalveolar figbdr28/2017. Type 2 diabetes (HCC) 10/26/2022 Unspecified asthma(493.90) [...] Suppository by RECTAL route twice daily. rizatriptan (MAXALT-SCROLL ASSEMBLER) 10 mg disintegrating tablet Take 1 tablet [...] testing has been completed. John Chowdhury MD [facility]08-07-2024 History and physical note* John Chowdhury MD [...] Jake Chairez 1975 REFERRING PHYSICIAN: Su Ham APRN.EARTH BORING MACHINE OPERATOR CHIEF COMPLAINT: Consult (Screening for colon [...] today at the request of Su Ham APRN.EARTH BORING MACHINE OPERATOR my opinion and advice regarding need [...] needle aspiration biopsy of nodes, and bronchoalveolar xmqrne06/2017. Type 2 diabetes (HCC) 10/26/2022 Unspecified asthma(493.90) [...] Suppository by RECTAL route twice daily. rizatriptan (MAXALT-SCROLL ASSEMBLER) 10 mg disintegrating tablet Take 1 tablet [...] entered by the nurse and reviewed by ok Nursing Notes: Jessica Rogers LPN 02/08/2024 11:38 [...] needle aspiration biopsy of nodes, and bronchoalveolar drhevt69/2017. Type 2 diabetes (HCC) 10/26/2022 Unspecified asthma(493.90) [...] Suppository by RECTAL route twice daily. rizatriptan (MAXALT-SCROLL ASSEMBLER) 10 mg disintegrating tablet Take 1 tablet [...] today at the request of Ham, Su, HOG TRADER.EARTH BORING MACHINE OPERATOR my opinion and advice regarding need [...] needle aspiration biopsy of nodes, and bronchoalveolar eakspc26/2017. Type 2 diabetes (HCC) 10/26/2022 Unspecified asthma(493.90) [...] Suppository by RECTAL route twice daily. rizatriptan (MAXALT-SCROLL ASSEMBLER) 10 mg disintegrating tablet Take 1 tablet [...] completed. John Chowdhury MD documented in this encounterOhiohealth Arthur [facility]06-26-2024 Instructions* Patient Instructions* Su Ham APRN.CNP - 03/05/2024 1:21 PM EDT Prozac Zoloft Lexapro All SSRI drug class medications documented in this encounterOhiohealth Arthur G.[facility]. [facility]06-26-2024 History of Present illness Narrative* Su Ham [...] Suppository by RECTAL route twice daily. rizatriptan (MAXALT-SCROLL ASSEMBLER) 10 mg disintegrating tablet Take 1 tablet [...] own first. Pt will reach out via [employer] if he wants to start on one of these. RTO in 3 months, sooner if needed if starting SSRI therapy. Prescription instructions reviewed with patient as applicable. Potential red flag symptoms discussed with the patient. Reviewed appropriate action plan to take if red flag symptoms occur. Patient agreeable to treatment plan. Su Bass APRN.MELISSA [address] [place] [address] documented in this encounterOhiohealth Arthur [facility]. [facility]06-26-2024 NoteHNO ID: [id number] Author: SU HAM APRN.CNP Service: ? Author [...] See Comments Thrkimberley Te (more content not included)...[facility]06-12-2024 Telephone encounter Note* Telephone Encounter - [...] Ibarra MA February 20, 2024 10:09 AM [facility]06-12-2024 Miscellaneous Notes* Telephone Encounter - Marce Ibarra [...] 20, 2024 10:09 AM documented in this encounterOhiohealth Arthur [facility]06-02-2024 NoteHNO ID: [id number] Author: JOHN CHOWDHURY MD Service: ? Author [...] today at the request of Su Ham APRN.EARTH BORING MACHINE OPERATOR my opinion and advice regarding need [...] Suppository by RECTAL route twice daily. rizatriptan (MAXALT-SCROLL ASSEMBLER) 10 mg disintegrating tablet Take 1 tablet by mouth as needed for migraine headache (see administration instructions). May repeat in 2 hours if needed Cholecalciferol, Vitamin D3, 125 mcg (5,000 unit) cap Take 1 capsule by mouth once daily. budesonide (PULMICORT) 0.5 mg/2 mL nebulizer solu (more content not included)... [facility]06-02-2024 History of Present illness Narrative* John [...] needle aspiration biopsy of nodes, and bronchoalveolar baenhb41/2017. Type 2 diabetes (HCC) 10/26/2022 Unspecified asthma(493.90) [...] Suppository by RECTAL route twice daily. rizatriptan (MAXALT-SCROLL ASSEMBLER) 10 mg disintegrating tablet Take 1 tablet [...] completed. John Chowdhury MD documented in this encounterOhiohealth [facility]05-31-2024 Instructions* Patient Instructions* John Chowdhury MD - [...] If you do not have a responsible shuttle bus driver (family member or friend) with you [...] until midnight. 2 08/2019 documented in this encounterOhiohealth Arthur G.[facility]. [facility]05-31-2024 Nurse Note* Jessica RogersAURORA - 02/08/2024 11:36 [...] N/A Last Colonoscopy: 2016 Jessica Rogers LPN [facility]05-31-2024 Nurse Note* Jessica Rogers LPN - 02/08/2024 [...] 2016 Jessica Rogers LPN documented in this encounterOhiohealth Arthur [facility]05-31-2024 Telephone encounter Note * Telephone Encounter - Betina Murphy MA - 02/08/2024 9:27 AM EDT Pt informed, verbalized understanding. Betina Murphy MA [facility]05-31-2024 Miscellaneous Notes* Telephone Encounter - Betina Murphy [...] Girard RN * Telephone Encounter - Lizbet oJe OCCA - 02/07/2024 9:49 AM EDT TC [...] 80 mg daily. Thank you, Su Ham APRN.EARTH BORING MACHINE OPERATOR documented in this encounterOhiohealth Arthur G.[facility]. [facility]05-31-2024 Telephone encounter Note * Telephone Encounter - Su Ham APRN.MELISSA - 02/08/2024 7:05 AM EDT I am ok with him continuing on his prior dosage of 60 mg daily if he takes this routinely, focuses on changes in diet, and repeats lipid panel in 3 months. If still elevated then we can increase the dosage. Thank you, Su Ham APRN.EARTH BORING MACHINE OPERATOR [facility]05-30-2024 Telephone encounter Note* Telephone Encounter - Yolanda [...] he currently picked up. Yolanda Girard, RN [facility]05-30-2024 Telephone encounter Note* Telephone Encounter - Lizbet Joe OCCA - 02/07/2024 9:49 AM EDT TC no answer. Left additional VM to return call. ANGELES Schmitz [facility]05-29-2024 Telephone encounter Note* Telephone Encounter - Ana Almanza LPN - 02/06/2024 10:58 AM EDT Left message to return call. [facility]05-29-2024 Telephone encounter Note* Telephone Encounter - Su [...] 80 mg daily. Thank you, Su Ham APRN.EARTH BORING MACHINE OPERATOR [facility]05-23-2024 History of Present illness Narrative* Su Ham [...] needle aspiration biopsy of nodes, and bronchoalveolar lpanyj51/2017. Type 2 diabetes (HCC) 10/26/2022 Unspecified asthma(493.90) [...] AREA TWICE DAILY NEEDED FOR RASH/ITCHING rizatriptan (MAXALT-SCROLL ASSEMBLER) 10 mg disintegrating tablet Take 1 tablet [...] Patient agreeable to treatment plan. Su Bass APRN.EARTH BORING MACHINE OPERATOR [address] [place] [address] documented in this encounterOhiohealth Arthur G.[facility]. [facility]03-14-2024 Miscellaneous Notes* Telephone Encounter - Lisette Linares LPN - 11/22/2023 1:18 PM EDT SHIVANI-01/08/23 Labs-04/03/23 NOV-none Lisette Linares LPN Pt is unemployed and no insurance. Pt is going to check with financial dept. for help. documented in this encounterOhiohealth Arthur [facility]03-14-2024 Miscellaneous Notes* Telephone Encounter - Lisette Linares LPN - 11/22/2023 1:16 PM EDT SHIVANI-01/08/23 Labs-04/03/23 NOV-none Lisette Linares LPN Pt over due for a yearly. Checking with financial to help out, Pt is unemployed and no insurance. documented in this encounterOhiohealth Arthur G.[facility]11-29-2023 Miscellaneous Notes* Telephone Encounter - Shayla Nye Ma - 08/08/2023 11:55 AM EST Patient last visit with PCP 01/08/23 Follow up appointment scheduled none Shayla Nye Ma documented in this encounterOhiohealth Arthur G.[facility] Center11-20-2023 Miscellaneous Notes* Telephone Encounter - Lisette Linares LPN - 07/30/2023 1:26 PM EST SHIVANI-01/08/23 Labs-04/03/23 NOV-none Lisette Linares LPN Patient comment: I have GoodRX Gold now to save money. Can this go to 180 day supply? documented in this encounterOhiohealth Arthur G.[facility]11-20-2023 Miscellaneous Notes* Telephone Encounter - Ana Almanza LPN - 07/30/2023 1:02 PM EST Shivani--01/08/23 Nov--nothing scheduled Last refill--01/08/23 90 with 1 refill Last labs--04/03/23 documented in this encounterOhiohealth Arthur [facility]08-25-2023 Miscellaneous Notes* Telephone Encounter - Lisette Linares [...] advise. Lisette Linares LPN documented in this encounterOhiohealth Arthur G.[facility]. [facility] Center08-25-2023 Miscellaneous Notes* Telephone Encounter - Lisette Linares LPN - 05/04/2023 12:03 PM EDT Patient phones requesting refills as follows: Requested Prescriptions Pending Prescriptions Disp Refills hydrocortisone (HEMORRHOIDAL HC) 25 mg suppository 30 Suppository 0 Si Suppository by RECTAL route twice daily. SHIVANI-01/29/23 Labs-01/08/23 NOV-none Please review and advise. Lisette Linares LPN documented in this encounterOhiohealth Arthur [facility]08-25-2023 Miscellaneous Notes* Telephone Encounter - Lisette Linares LPN - 05/04/2023 12:00 PM EDT Patient phones requesting refills as follows: Requested Prescriptions Pending Prescriptions Disp Refills triamcinolone acetonide (KENALOG) 0.1 % cream 45 g 2 Sig: APPLY SPARINGLY TO AFFECTED AREA TWICE DAILY NEEDED FOR RASH/ITCHING SHIVANI-01/29/23 Labs-01/08/23 NOV-none Please review and advise. Lisette Linares LPN documented in this encounterOhiohealth Arthur [facility]07-31-2023 Miscellaneous Notes* Telephone Encounter - Lizbet Joe OCCA - 04/09/2023 8:01 AM EDT Patient has been identified by name and date of : Yes Patient phones for refill(s): Requested Prescriptions Pending Prescriptions Disp Refills rizatriptan (MAXALT-SCROLL ASSEMBLER) 10 mg disintegrating tablet 10 tablet 1 [...] Thank you. ANGELES Schmitz documented in this encounterOhiohealth Arthur [facility]05-17-2023 History of Present illness Narrative* Ary Montes [...] 24, 2023 2:17 PM documented in this encounterOhiohealth Arthur [facility]05-15-2023 Miscellaneous Notes* Telephone Encounter - Pinky Pineda [...] you. Pinky Pineda LPN documented in this encounterOhiohealth Arthur [facility]05-12-2023 Miscellaneous Notes* Telephone Encounter - Arlyn De Leon MA - 01/19/2023 1:31 PM EDT Patient has been identified by name and date of : Yes Requested Prescriptions Pending Prescriptions Disp Refills rizatriptan (MAXALT-SCROLL ASSEMBLER) 10 mg disintegrating tablet 10 tablet 1 Sig: Take 1 tablet by mouth as needed for migraine headache (see administration instructions). May repeat in 2 hours if needed RX INSTRUCTIONS: Patient aware RX will be sent to pharmacy. No need to notify patient. Arlyn De Leon MA Shivani 01/2023 No appointment scheduled Last refill: 10/2021 documented in this encounterOhiohealth Arthur [facility]05-02-2023 History of Present illness Narrative* Avni Salcedo, [...] needle aspiration biopsy of nodes, and bronchoalveolar owssbx77/2017. Type 2 diabetes (HCC) 10/26/2022 Unspecified asthma(493.90) [...] Accessories kit Provide nebulizer kit accessory. rizatriptan (MAXALT-SCROLL ASSEMBLER) 10 mg disintegrating tablet Take 1 tablet [...] See patient instructions. Avni Salcedo DO [address] [place] [address] documented in this encounterOhiohealth Arthur G.[facility]03-09-[address] Queen [facility] November 16, 2022 8:31pm Note Date/Time November 16, 2022 7:55 pm [facility] Medical Records Department [address] [place] [address] Emergency Department Summary 11/16/22 MR#: [id number] Acct: [id number] Name: JAKE CHAIREZ Rep #:[id number] : 1975 47 From: Rah Queen MD [...] and he thinks he felt a tear [facility] Medical History Asthma Chronic neck and back [...] your Primary Care Provider. Call [facility] ([phone]) or report to the closest Emergency Room. Call 911 if necessary. 11/16/222030 <Electronically signed by Rah Queen MD> Cosigner Signature (if applicable): CC: Dr. Avni Salcedo DO ~ Signed [facility] Work Phone: 1(176) 497-756603-03-2023 Miscellaneous Notes* Telephone Encounter - Rochelle Vega [...] pt message Betina Murphy documented in this encounterOhiohealth Arthur G.[facility]. [facility], [facility]03-01-2023 Miscellaneous Notes* Telephone Encounter - Latonya Ritter [...] you, Su Ham APRN.MELISSA documented in this encounterOhiohealth Arthur G.[facility]. [facility], [facility] Center02-24-2023 Miscellaneous Notes* Telephone Encounter - Betina Murphy [...] you, Su Ham APRN.CNP documented in this encounterOhiohealth Arthur G.[facility]. [facility], [facility]02-22-2023 History of Present illness Narrative* Su Ham [...] numerous months. Acute pain x 3-5 days. [place] a pop in shoulder when lifting up [...] Accessories kit Provide nebulizer kit accessory. rizatriptan (MAXALT-SCROLL ASSEMBLER) 10 mg disintegrating tablet Take 1 tablet [...] loss - Discussed diabetic education issues of alf diabetic complications, hypoglycemic symptoms, hyperglycemic symptoms, diet, medications- side effects and need for compliance, importance of exercise, use and side effects of insulin, importance of appointments with Reconciliation Clerk, importance of annual examinations with Opthalmology, and [...] Patient agreeable to treatment plan. Su Bass APRN.EARTH BORING MACHINE OPERATOR [address] [place] [address] documented in this encounterOhiohealth Arthur G.[facility]. [facility] Center02-22-2023 History of Present illness Narrative* Claude Amanda RN - 11/01/2022 12:57 PM EST DIABETES CARE AND EDUCATION VISIT Location: [place] Type of visit: In person individual PATIENT'S [...] TIME: 1:28 PM PAGER: documented in this encounterOhiohealth Arthur G.[facility]. [facility], [facility] Center02-16-2023 Miscellaneous Notes* Telephone Encounter - ERNESTINA Scott [...] him to have a visit with the DOLL WIG MAKER Tori Blue and the nurse health promotion educator to have a discussion on this and to start him on Metformin and teach about glucometer use, as well as discuss what to do about his very high cholesterol levels as well. Avni Salcedo DO documented in this encounterOhiohealth Arthur G.[facility]. [facility], [facility]02-08-2023 History of Present illness Narrative* Ary Montes [...] 18, 2022 9:38 AM documented in this encounterOhiohealth Arthur G.[facility]. [facility] Center02-06-2023 Miscellaneous Notes* Telephone Encounter - Lisette Linares [...] advise. Lisette Linares LPN documented in this encounterOhiohealth Arthur G.[facility]. [facility] Center02-06-2023 Miscellaneous Notes* Telephone Encounter - Latonya Ritter LPN - 10/16/2022 1:11 PM EST Pt. informed. * Telephone Encounter - Su Ham APRN.EARTH BORING MACHINE OPERATOR - 10/16/2022 9:27 AM EST Please call patient and let him know that lung volume testings shows moderate obstruction with significant bronchodilator response. The RV and RV/TLC are elevated indicating air trapping. This correlates with his asthma, COPD and sarcoidosis dx. Does patient have a preparation supervisor freezing he sees regularly? If not, I would recommend this. Thank you, uS Ham APRN.CNP documented in this encounterOhiohealth Arthur G.[facility]. [facility], [facility] Center02-03-2023 History of Present illness Narrative* ARIELA Quispe - 10/13/2022 1:12 PM EST PULM FUNCTION SMARTBLOCK: Provider: Su Ham APRN.CNP Assisting Tech: ARIELA Quispe Spirometry w/BD: 1 LV - Box: 1 documented in this encounterOhiohealth Arthur G.[facility]. [facility], [facility] Center02-01-2023 History of Present illness Narrative* Avni Salcedo, [...] needle aspiration biopsy of nodes, and bronchoalveolar ulsubz28/2017. Unspecified asthma(493.90) PAST SURGICAL HISTORY Procedure Laterality [...] Accessories kit Provide nebulizer kit accessory. rizatriptan (MAXALT-SCROLL ASSEMBLER) 10 mg disintegrating tablet Take 1 tablet [...] plan. See patient instructions. Avni Salcedo DO [address] [place] [address] documented in this encounterOhiohealth Arthur G.[facility]. [facility]02-01-2023 Instructions* Patient Instructions* Avni Salcedo DO - 10/11/2022 5:33 PM EST Fasting labs are ordered to get completed when able documented in this encounterOhiohealth Arthur G.[facility]. [facility], [facility] Center01-25-2023 Miscellaneous Notes* Telephone Encounter - Su Ham APRN.EARTH BORING MACHINE OPERATOR - 10/04/2022 3:18 PM EST Noted. Thank [...] you, Su Ham APRN.MELISSA documented in this encounterOhiohealth Arthur G.[facility]. [facility] Center01-20-2023 History of Present illness Narrative* Kelsey Mortensen [...] 29, 2022 3:16 PM documented in this encounterOhiohealth Arthur G.[facility]. [facility] Center01-14-2023 Miscellaneous Notes* Telephone Encounter - Doris Vega [...] you, Su Ham APRN.MELISSA documented in this encounterOhiohealth Arthur G.[facility]. [facility] Center01-13-2023 Miscellaneous Notes* Telephone Encounter - Lita So RN - 09/22/2022 3:01 PM EST [place] reports the albuterol neb solution was written for 3 ml. That's one vial. Pended for 90 ml to equal one box (30 vials in a box). Please sign and resend to Trin[place]. documented in this encounterOhiohealth Arthur G.[facility]. [facility] Center01-13-2023 History of Present illness Narrative* Joya Galvan [...] 22, 2022 1:48 PM documented in this encounterOhiohealth Arthur G.[facility]. [facility] Center01-13-2023 History of Present illness Narrative* Su Ham [...] needle aspiration biopsy of nodes, and bronchoalveolar gpuhdi59/2017. Unspecified asthma(493.90) Previous Surgical History PAST SURGICAL [...] Accessories kit Provide nebulizer kit accessory. rizatriptan (MAXALT-SCROLL ASSEMBLER) 10 mg disintegrating tablet Take 1 tablet [...] agreeable to treatment plan. Su Bass APRN.MELISSA [address] [place] [address] documented in this encounterOhiohealth Arthur G.[facility]. [facility], [facility] Center01-09-2023 History of Present illness Narrative* Elmer Rodriguez [...] needle aspiration biopsy of nodes, and bronchoalveolar nvikam65/2017. Unspecified asthma(493.90) PAST SURGICAL HISTORY Procedure Laterality [...] Accessories kit Provide nebulizer kit accessory. rizatriptan (MAXALT-SCROLL ASSEMBLER) 10 mg disintegrating tablet Take 1 tablet [...] Sinus: Maxillary sinus tenderness present. Mouth/Throat: Lips: Lyndon. Mouth: Mucous membranes are moist. Pharynx: Oropharynx [...] of care. This note was generated using RxVantage software. It may contain errors in wording, punctuation, or spelling. Elmer Rodriguez APRN.MELISSA documented in this encounterOhiohealth Arthur G.[facility]. [facility] Center11-29-2022 Miscellaneous Notes* Telephone Encounter - Shayla Nye Ma - 08/08/2022 2:24 PM EST Patient last visit with PCP 07/10/22 Follow up appointment scheduled 10/11/22 Shayla Nye Ma documented in this encounterOhiohealth Arthur G.[facility]. [facility], [facility] Center11-25-2022 History of Present illness Narrative* Carmen Giles - 08/04/2022 10:37 AM EST POPULATION HEALTH NAVIGATION OUTREACH Action/FYI [facility] Support: Called pt to schedule an appt in Pain Management. Lvm for pt to call [phone] for scheduling. Pt identified by name and : NO Outreach Outcome/Action Unable to reach patient: Left message Did you use a PCP flex slot to schedule this appointment? No Reason for Outreach Care Gap or Scheduling/Wellness visits Payer: [facility] / Plan: PA [employer] INSURED / Product Type: PPO [...] 04, 2022 10:37 AM documented in this encounterOhiohealth Arthur G.[facility]. [facility] Center11-10-2022 Miscellaneous Notes* Telephone Encounter - Concepcion Rushing [...] you. Concepcion Rushing LPN documented in this encounterOhiohealth Arthur G.[facility]. [facility], [facility], [facility] Center10-31-2022 History of Present illness Narrative* Avni Salcedo, [...] needle aspiration biopsy of nodes, and bronchoalveolar eosros50/2017. Unspecified asthma(493.90) PAST SURGICAL HISTORY Procedure Laterality [...] Accessories kit Provide nebulizer kit accessory. rizatriptan (MAXALT-SCROLL ASSEMBLER) 10 mg disintegrating tablet Take 1 tablet [...] plan. See patient instructions. Avni Salcedo DO [address] [place] [address] documented in this encounterOhiohealth Arthur G.[facility]. [facility], [facility] Center10-20-2022 History of Present illness Narrative* Yash Boothe [...] 30 Yash Boothe PT documented in this encounterOhiohealth Arthur G.[facility]. [facility], [facility], [facility] Center10-17-2022 History of Present illness Narrative* Yash Boothe [...] 25 MELCHOR Mobley PT documented in this encounterOhiohealth Arthur G.[facility]. [facility], [facility], [facility] Center10-10-2022 History of Present illness Narrative* Yash Boothe [...] glenohumeral ER with yellow t-band with elbows [id number] degrees 2x10. Mirror used for feedback to [...] 40 Yash Boothe PT documented in this encounterOhiohealth Arthur G.[facility]. [facility], [facility] Center10-03-2022 History of Present illness Narrative* Yash Boothe [...] 40 MELCHOR Mobley PT documented in this encounterOhiohealth Arthur G.[facility]. [facility], [facility], [facility] Center09-29-2022 Miscellaneous Notes* Telephone Encounter - ERNESTINA Cueto - 06/08/2022 2:42 PM EDT Pt picked up cd * Telephone Encounter - Kamille Benitez Pss - 06/07/2022 5:18 PM EDT Patient requesting images of 05/19/22 cerv xray and 06/01/[address] I already printed reports and release is signed and scanned in [employer]. Patient would like to pick out hand by 2pm 06/08/2022. Kamille Benitez Pss documented in this encounterOhiohealth Arthur G.[facility]. [facility], [facility], [facility] Center09-28-2022 History of Present illness Narrative* Yash Boothe [...] Treatment Time Minutes (timed/untimed): 39 Socorro Garrido, COSTUME DESIGN TEACHER Yash Boothe PT documented in this encounterOhiohealth Arthur G.[facility]. [facility], [facility], [facility] Center09-23-2022 Miscellaneous Notes* Telephone Encounter - Yolanda Girard [...] Provider: AVNI SALCEDO DO documented in this encounterOhiohealth Arthur G.H. [facility], Md, [facility] Center09-22-2022 History of Present illness Narrative* Kelsey Lam, [...] 2022 TIME: 2:54 PM documented in this encounterOhiohealth Arthur G.[facility]. [facility], [facility], [facility] Center09-20-2022 History of Present illness Narrative* Yash Boothe [...] Planned: 12 Planned Treatment Interventions: Therapeutic exercise (72608);Manual therapy (20249);Self-care homemanagement (94005);Patient/Family/Caregiver Education;Body Mechanics Training PLAN FOR NEXT VISIT: [...] for any asymmetrical weakness. Hand Strength R Induction Brazer Position 2 (lbs): 100 lbs L Induction Brazer Position 2 (lbs): 93 lbs (value varied [...] 50 Yash Boothe PT documented in this encounterOhiohealth Arthur G.[facility]. [facility], [facility] Center09-14-2022 Miscellaneous Notes* Telephone Encounter - Agata Deluca [...] draw. Avni Salcedo DO documented in this encounterOhiohealth Arthur G.[facility]. [facility] Center09-09-2022 History of Present illness Narrative* Avni Salcedo [...] needle aspiration biopsy of nodes, and bronchoalveolar nzatck53/2017. Unspecified asthma(493.90) PAST SURGICAL HISTORY Procedure Laterality [...] Accessories kit Provide nebulizer kit accessory. rizatriptan (MAXALT-SCROLL ASSEMBLER) 10 mg disintegrating tablet Take 1 tablet [...] See patient instructions. Avni Salcedo DO [address] [place] [address] documented in this encounterOhiohealth Arthur G.[facility]. [facility] Center09-09-2022 History of Present illness Narrative* Joya Galvan [...] 19, 2022 11:49 AM documented in this [facility]08-11-2022 Miscellaneous Notes* Telephone Encounter - Lisette Linares LPN - 04/20/2022 12:30 PM EDT Patient phones requesting refills as follows: Requested Prescriptions Pending Prescriptions Disp Refills hydroCHLOROthiazide (HYDRODIURIL, ESIDRIX) 12.5 mg capsule 90 capsule 1 Sig: Take 1 capsule by mouth once daily. SHIVANI-12/12/21 Labs-06/01/21 NOV-none med filled 11/04/21 Please review and advise. Lisette Linares LPN documented in this [facility]08-09-2022 Instructions* Patient Instructions* Tammy Llanes APRN.EARTH BORING MACHINE OPERATOR - 04/18/2022 4:35 PM EDT Continue [...] iron supplement while taking Follow up with preparation supervisor freezing if no improvement. * Seek medical care immediately, call 911, go to ER if you have chest pain, difficulty breathing, shortness of breath, inability to swallow. documented in this encounterOhiohealth Arthur G.[facility]. [facility] Center08-09-2022 History of Present illness Narrative* Tammy Llanes APRN.CNP - 04/18/2022 4:31 PM EDT Subjective The history is provided by the patient. No maintenance of way clerk was used. JAYESH Chairez is a 47 [...] of nodes, and bronchoalveolar /2017. Unspecified asthma(493.90) I have confirmed and edited as necessary, the [facility] Review of Systems Constitutional: Negative for [...] evaluation. Tammy Llanes APRN.MELISSA documented in this encounterOhiohealth Arthur [facility]08-09-2022 Miscellaneous Notes* Telephone Encounter - Concepcion Rushing [...] you. Concepcion Rushing LPN documented in this encounterOhiohealth Arthur G.[facility]. [facility]07-19-2022 Miscellaneous Notes* Telephone Encounter - Chandrika Campa LPN - 03/28/2022 8:52 AM EDT Patient phones requesting refills as follows: Pending Prescriptions Disp Refills COMBIVENT RESPIMAT 20 MCG-100 MCG/ACTUATION SOLUTION FOR INHALATION 4 g 1 Si puffs QID for asthma CHIP: No Please review and advise. Chandrika Campa LPN documented in this encounterOhiohealth Arthur G.[facility]. [facility] Center06-16-2022 Miscellaneous Notes* Telephone Encounter - Ana Almanza LPN - 02/23/2022 10:56 AM EDT shivani-- 12/12/21 Next-- None made Last refill--08/30/21 90 With 1 Last labs--06/01/21 documented in this encounterOhiohealth Arthur G.[facility]. [facility]05-06-2022 Miscellaneous Notes* Telephone Encounter - Catalina Almazan [...] none Shayla Nye Ma documented in this encounterOhiohealth Arthur G.[facility]. [facility]05-06-2022 Miscellaneous Notes* Telephone Encounter - Pinky Garcia - 01/13/2022 8:39 AM EDT Patient electronically requesting refills as follows: Pending Prescriptions Disp Refills COMBIVENT RESPIMAT 20 MCG-100 MCG/ACTUATION SOLUTION FOR INHALATION 4 g 1 Si puffs QID for asthma CHIP: No Please review and advise. Pinky Garcia documented in this encounterOhiohealth Arthur [facility]05-06-2022 Miscellaneous Notes* Telephone Encounter - Lisette Linares LPN - 01/13/2022 8:08 AM EDT Patient phones requesting refills as follows: Pending Prescriptions Disp Refills LISINOPRIL 20 MG TABLET 90 tablet 1 Sig: Take 1 tablet by mouth once daily. CHIP: No SHIVANI-4/4/22 Labs-06/01/21 NOV-none Please review and advise. Lisette Linares LPN documented in this encounterOhiohealth Arthur [facility]05-06-2022 Miscellaneous Notes* Telephone Encounter - Lisette Linares [...] advise. Lisette Linares LPN documented in this encounterOhiohealth Arthur [facility]05-06-2022 Miscellaneous Notes* Telephone Encounter - Lisette Linares LPN - 01/13/2022 7:49 AM EDT Patient phones requesting refills as follows: Pending Prescriptions Disp Refills PROMETHAZINE 25 MG TABLET 90 tablet 1 Sig: Take 1 tablet by mouth every 6 hours as needed. CHIP: No SHIVANI-12/12/21 Labs-06/01/21 NOV-none Please review and advise. Lisette Linares LPN documented in this encounterOhiohealth Arthur G.[facility]. [facility]04-04-2022 Nurse Note* Ary Lopez Ma - 12/12/2021 1:04 PM EDT VISUAL ACUITY: Today's exam: Vision Correction? Glasses: RIGHT EYE: 20/30 LEFT EYE: 20/ 30 BOTH EYES: 20/25 HEARING EXAM: Frequency 1000Hz: Right25 dB Left 20dB 2000Hz Right15 dB Left 20dB 500Hz Right20 dB Left 25dB documented in this encounterOhiohealth Arthur G.[facility] Center04-04-2022 History of Present illness Narrative* M DEAN [...] FEF75 (L/sec) 1.10 0.50 2.29 0.42 37 FEW52-82 (L/sec) 3.23 1.77 5.12 1.25 38 PEF [...] 1.00 - 4.00 k/uL 1.88 1.08 1.47 [place]% % 5.9 6.7 7.2 Abs [place] <0.87 k/uL 0.55 0.48 0.52 Eosin% % [...] needle aspiration biopsy of nodes, and bronchoalveolar qhtcce20/2017. Unspecified asthma(493.90) PAST SURGICAL HISTORY Procedure Laterality [...] nebulizer kit accessory. 1 Each 3 rizatriptan (MAXALT-SCROLL ASSEMBLER) 10 mg disintegrating tablet Take 1 tablet [...] B/O Lita Ludwig PA-C documented [facility] History of Present illness Narrative* Pattie Mejia [...] 11, 2021 2:54 PM documented in this encounterOhio[facility]11-18-2021 History of Present illness Narrative* Joya Galvan [...] 28, 2021 6:27 PM documented in this encounterOhio[facility]-14-2021 History of Present illness Narrative* Kalyani Gordon [...] 23, 2020 6:48 PM documented in this encounterOhio[facility]12[facility]2006 History of Past illness Narrative* Problem Noted Date Resolved Date Benign neoplasm of colon 08/20/2006 007 ABDOMINAL PAIN( Right Upper Quadrant) 07/17/2006 03/05/2009 Unspecified asthma, with status asthmaticus 03/28/2007 Migraine without aura 10/22/2007 documented as of this encounter (statuses as of 12/12/2021) [facility] of Past illness Narrative* Problem Noted Date Resolved Date Benign neoplasm of colon 08/20/2006 007 ABDOMINAL PAIN( Right Upper Quadrant) 07/17/2006 03/05/2009 Unspecified asthma, with status asthmaticus 03/28/2007 Migraine without aura 10/22/2007 documented as of this encounter (statuses as of 12/26/2021) [facility] of Past illness Narrative* Problem Noted Date Resolved Date Benign neoplasm of colon 08/20/2006 007 ABDOMINAL PAIN( Right Upper Quadrant) 07/17/2006 03/05/2009 Unspecified asthma, with status asthmaticus 03/28/2007 Migraine without aura 10/22/2007 documented as of this encounter (statuses as of 01/13/2022) [facility] of Past illness Narrative* Problem Noted Date Resolved Date Benign neoplasm of colon 08/20/2006 007 ABDOMINAL PAIN( Right Upper Quadrant) 07/17/2006 03/05/2009 Unspecified asthma, with status asthmaticus 03/28/2007 Migraine without aura 10/22/2007 documented as of this encounter (statuses as of 01/13/2022) [facility] illness Narrative* Problem Noted Date Resolved Date Benign neoplasm of colon 08/20/2006 007 ABDOMINAL PAIN( Right Upper Quadrant) 07/17/2006 03/05/2009 Unspecified asthma, with status asthmaticus 03/28/2007 Migraine without aura 10/22/2007 documented as of this encounter (statuses as of 01/13/2022) [facility] of Past illness Narrative* Problem Noted Date Resolved Date Benign neoplasm of colon 08/20/2006 007 ABDOMINAL PAIN( Right Upper Quadrant) 07/17/2006 03/05/2009 Unspecified asthma, with status asthmaticus 03/28/2007 Migraine without aura 10/22/2007 documented as of this encounter (statuses as of 02/23/2022) [facility] of Past illness Narrative* Problem Noted Date Resolved Date Benign neoplasm of colon 08/20/2006 007 ABDOMINAL PAIN( Right Upper Quadrant) 07/17/2006 03/05/2009 Unspecified asthma, with status asthmaticus 03/28/2007 Migraine without aura 10/22/2007 documented as of this encounter (statuses as of 03/16/2022) [facility] illness Narrative* Problem Noted Date Resolved Date Benign neoplasm of colon 08/20/2006 007 ABDOMINAL PAIN( Right Upper Quadrant) 07/17/2006 03/05/2009 Unspecified asthma, with status asthmaticus 03/28/2007 Migraine without aura 10/22/2007 documented as of this encounter (statuses as of 03/28/2022) [facility] of Past illness Narrative* Problem Noted Date Resolved Date Benign neoplasm of colon 08/20/2006 007 ABDOMINAL PAIN( Right Upper Quadrant) 07/17/2006 03/05/2009 Unspecified asthma, with status asthmaticus 03/28/2007 Migraine without aura 10/22/2007 documented as of this encounter (statuses as of 04/18/2022) [facility] illness Narrative* Problem Noted Date Resolved Date Benign neoplasm of colon 08/20/2006 007 ABDOMINAL PAIN( Right Upper Quadrant) 07/17/2006 03/05/2009 Unspecified asthma, with status asthmaticus 03/28/2007 Migraine without aura 10/22/2007 documented as of this encounter (statuses as of 04/19/2022) [facility] of Past illness Narrative* Problem Noted Date Resolved Date Benign neoplasm of colon 08/20/2006 007 ABDOMINAL PAIN( Right Upper Quadrant) 07/17/2006 03/05/2009 Unspecified asthma, with status asthmaticus 03/28/2007 Migraine without aura 10/22/2007 documented as of this encounter (statuses as of 04/20/2022) [facility] of Past illness Narrative* Problem Noted Date Resolved Date Benign neoplasm of colon 08/20/2006 007 ABDOMINAL PAIN( Right Upper Quadrant) 07/17/2006 03/05/2009 Unspecified asthma, with status asthmaticus 03/28/2007 Migraine without aura 10/22/2007 documented as of this encounter (statuses as of 05/19/2022) [facility] of Past illness Narrative* Problem Noted Date Resolved Date Benign neoplasm of colon 08/20/2006 007 ABDOMINAL PAIN( Right Upper Quadrant) 07/17/2006 03/05/2009 Unspecified asthma, with status asthmaticus 03/28/2007 Migraine without aura 10/22/2007 documented as of this encounter (statuses as of 05/24/2022) [facility] of Past illness Narrative* Problem Noted Date Resolved Date Benign neoplasm of colon 08/20/2006 007 ABDOMINAL PAIN( Right Upper Quadrant) 07/17/2006 03/05/2009 Unspecified asthma, with status asthmaticus 03/28/2007 Migraine without aura 10/22/2007 documented as of this encounter (statuses as of 05/30/2022) [facility] illness Narrative* Problem Noted Date Resolved Date Benign neoplasm of colon 08/20/2006 007 ABDOMINAL PAIN( Right Upper Quadrant) 07/17/2006 03/05/2009 Unspecified asthma, with status asthmaticus 03/28/2007 Migraine without aura 10/22/2007 documented as of this encounter (statuses as of 06/02/2022) [facility] Past illness Narrative* Problem Noted Date Resolved Date Benign neoplasm of colon 08/20/2006 007 ABDOMINAL PAIN( Right Upper Quadrant) 07/17/2006 03/05/2009 Unspecified asthma, with status asthmaticus 03/28/2007 Migraine without aura 10/22/2007 documented as of this encounter (statuses as of 06/08/2022) [facility] of Past illness Narrative* Problem Noted Date Resolved Date Benign neoplasm of colon 08/20/2006 007 ABDOMINAL PAIN( Right Upper Quadrant) 07/17/2006 03/05/2009 Unspecified asthma, with status asthmaticus 03/28/2007 Migraine without aura 10/22/2007 documented as of this encounter (statuses as of 06/13/2022) [facility] of Past illness Narrative* Problem Noted Date Resolved Date Benign neoplasm of colon 08/20/2006 007 ABDOMINAL PAIN( Right Upper Quadrant) 07/17/2006 03/05/2009 Unspecified asthma, with status asthmaticus 03/28/2007 Migraine without aura 10/22/2007 documented as of this encounter (statuses as of 06/19/2022) [facility] of Past illness Narrative* Problem Noted Date Resolved Date Benign neoplasm of colon 08/20/2006 007 ABDOMINAL PAIN( Right Upper Quadrant) 07/17/2006 03/05/2009 Unspecified asthma, with status asthmaticus 03/28/2007 Migraine without aura 10/22/2007 documented as of this encounter (statuses as of 06/26/2022) [facility] of Past illness Narrative* Problem Noted Date Resolved Date Benign neoplasm of colon 08/20/2006 007 ABDOMINAL PAIN( Right Upper Quadrant) 07/17/2006 03/05/2009 Unspecified asthma, with status asthmaticus 03/28/2007 Migraine without aura 10/22/2007 documented as of this encounter (statuses as of 06/30/2022) [address]11-2006 History of Past illness Narrative* Problem Noted Date Resolved Date Benign neoplasm of colon 08/20/2006 007 ABDOMINAL PAIN( Right Upper Quadrant) 07/17/2006 03/05/2009 Unspecified asthma, with status asthmaticus 03/28/2007 Migraine without aura 10/22/2007 documented as of this encounter (statuses as of 07/11/2022) [place] [address]-11-2006 History of Past illness Narrative* Problem Noted Date Resolved Date Benign neoplasm of colon 08/20/2006 007 ABDOMINAL PAIN( Right Upper Quadrant) 07/17/2006 03/05/2009 Unspecified asthma, with status asthmaticus 03/28/2007 Migraine without aura 10/22/2007 documented as of this encounter (statuses as of 07/20/2022) [address]11-2006 History of Past illness Narrative* Problem Noted Date Resolved Date Benign neoplasm of colon 08/20/2006 007 ABDOMINAL PAIN( Right Upper Quadrant) 07/17/2006 03/05/2009 Unspecified asthma, with status asthmaticus 03/28/2007 Migraine without aura 10/22/2007 documented as of this encounter (statuses as of 08/04/2022) [facility] illness Narrative* Problem Noted Date Resolved Date Benign neoplasm of colon 08/20/2006 007 ABDOMINAL PAIN( Right Upper Quadrant) 07/17/2006 03/05/2009 Unspecified asthma, with status asthmaticus 03/28/2007 Migraine without aura 10/22/2007 documented as of this encounter (statuses as of 08/09/2022) [facility] Narrative* Problem Noted Date Resolved Date Benign neoplasm of colon 08/20/2006 007 ABDOMINAL PAIN( Right Upper Quadrant) 07/17/2006 03/05/2009 Unspecified asthma, with status asthmaticus 03/28/2007 Migraine without aura 10/22/2007 documented as of this encounter (statuses as of 09/18/2022) [facility] Past illness Narrative* Problem Noted Date Resolved Date Benign neoplasm of colon 08/20/2006 007 ABDOMINAL PAIN( Right Upper Quadrant) 07/17/2006 03/05/2009 Unspecified asthma, with status asthmaticus 03/28/2007 Migraine without aura 10/22/2007 documented as of this encounter (statuses as of 09/22/2022) [facility] Past illness Narrative* Problem Noted Date Resolved Date Benign neoplasm of colon 08/20/2006 007 ABDOMINAL PAIN( Right Upper Quadrant) 07/17/2006 03/05/2009 Unspecified asthma, with status asthmaticus 03/28/2007 Migraine without aura 10/22/2007 documented as of this encounter (statuses as of 09/22/2022) [facility] of Past illness Narrative* Problem Noted Date Resolved Date Benign neoplasm of colon 08/20/2006 007 ABDOMINAL PAIN( Right Upper Quadrant) 07/17/2006 03/05/2009 Unspecified asthma, with status asthmaticus 03/28/2007 Migraine without aura 10/22/2007 documented as of this encounter (statuses as of 09/29/2022) [facility] Past illness Narrative* Problem Noted Date Resolved Date Benign neoplasm of colon 08/20/2006 007 ABDOMINAL PAIN( Right Upper Quadrant) 07/17/2006 03/05/2009 Unspecified asthma, with status asthmaticus 03/28/2007 Migraine without aura 10/22/2007 documented as of this encounter (statuses as of 10/04/2022) [facility] of Past illness Narrative* Problem Noted Date Resolved Date Benign neoplasm of colon 08/20/2006 007 ABDOMINAL PAIN( Right Upper Quadrant) 07/17/2006 03/05/2009 Unspecified asthma, with status asthmaticus 03/28/2007 Migraine without aura 10/22/2007 documented as of this encounter (statuses as of 10/12/2022) [facility] of Past illness Narrative* Problem Noted Date Resolved Date Benign neoplasm of colon 08/20/2006 007 ABDOMINAL PAIN( Right Upper Quadrant) 07/17/2006 03/05/2009 Unspecified asthma, with status asthmaticus 03/28/2007 Migraine without aura 10/22/2007 documented as of this encounter (statuses as of 10/13/2022) [address]11-2006 History of Past illness Narrative* Problem Noted Date Resolved Date Benign neoplasm of colon 08/20/2006 007 ABDOMINAL PAIN( Right Upper Quadrant) 07/17/2006 03/05/2009 Unspecified asthma, with status asthmaticus 03/28/2007 Migraine without aura 10/22/2007 documented as of this encounter (statuses as of 10/16/2022) [facility] Past illness Narrative* Problem Noted Date Resolved Date Benign neoplasm of colon 08/20/2006 007 ABDOMINAL PAIN( Right Upper Quadrant) 07/17/2006 03/05/2009 Unspecified asthma, with status asthmaticus 03/28/2007 Migraine without aura 10/22/2007 documented as of this encounter (statuses as of 10/16/2022) [facility] Past illness Narrative* Problem Noted Date Resolved Date Benign neoplasm of colon 08/20/2006 007 ABDOMINAL PAIN( Right Upper Quadrant) 07/17/2006 03/05/2009 Unspecified asthma, with status asthmaticus 03/28/2007 Migraine without aura 10/22/2007 documented as of this encounter (statuses as of 10/26/2022) [facility] Past illness Narrative* Problem Noted Date Resolved Date Benign neoplasm of colon 08/20/2006 007 ABDOMINAL PAIN( Right Upper Quadrant) 07/17/2006 03/05/2009 Unspecified asthma, with status asthmaticus 03/28/2007 Migraine without aura 10/22/2007 documented as of this encounter (statuses as of 11/01/2022) [facility] Past illness Narrative* Problem Noted Date Resolved Date Benign neoplasm of colon 08/20/2006 007 ABDOMINAL PAIN( Right Upper Quadrant) 07/17/2006 03/05/2009 Unspecified asthma, with status asthmaticus 03/28/2007 Migraine without aura 10/22/2007 documented as of this encounter (statuses as of 11/02/2022) [facility] Past illness Narrative* Problem Noted Date Resolved Date Benign neoplasm of colon 08/20/2006 007 ABDOMINAL PAIN( Right Upper Quadrant) 07/17/2006 03/05/2009 Unspecified asthma, with status asthmaticus 03/28/2007 Migraine without aura 10/22/2007 documented as of this encounter (statuses as of 11/03/2022) [address]11-2006 History of Past illness Narrative* Problem Noted Date Resolved Date Benign neoplasm of colon 08/20/2006 007 ABDOMINAL PAIN( Right Upper Quadrant) 07/17/2006 03/05/2009 Unspecified asthma, with status asthmaticus 03/28/2007 Migraine without aura 10/22/2007 documented as of this encounter (statuses as of 11/03/2022) [facility] Narrative* Problem Noted Date Resolved Date Benign neoplasm of colon 08/20/2006 007 ABDOMINAL PAIN( Right Upper Quadrant) 07/17/2006 03/05/2009 Unspecified asthma, with status asthmaticus 03/28/2007 Migraine without aura 10/22/2007 documented as of this encounter (statuses as of 11/09/2022) [facility] of Past illness Narrative* Problem Noted Date Resolved Date Benign neoplasm of colon 08/20/2006 007 ABDOMINAL PAIN( Right Upper Quadrant) 07/17/2006 03/05/2009 Unspecified asthma, with status asthmaticus 03/28/2007 Migraine without aura 10/22/2007 documented as of this encounter (statuses as of 11/10/2022) [facility] Past illness Narrative* Problem Noted Date Resolved Date Benign neoplasm of colon 08/20/2006 007 ABDOMINAL PAIN( Right Upper Quadrant) 07/17/2006 03/05/2009 Unspecified asthma, with status asthmaticus 03/28/2007 Migraine without aura 10/22/2007 documented as of this encounter (statuses as of 01/15/2023) [facility] Past illness Narrative* Problem Noted Date Resolved Date Benign neoplasm of colon 08/20/2006 007 ABDOMINAL PAIN( Right Upper Quadrant) 07/17/2006 03/05/2009 Unspecified asthma, with status asthmaticus 03/28/2007 Migraine without aura 10/22/2007 documented as of this encounter (statuses as of 01/19/2023) [address]11-2006 History of Past illness Narrative* Problem Noted Date Resolved Date Benign neoplasm of colon 08/20/2006 007 ABDOMINAL PAIN( Right Upper Quadrant) 07/17/2006 03/05/2009 Unspecified asthma, with status asthmaticus 03/28/2007 Migraine without aura 10/22/2007 documented as of this encounter (statuses as of 01/22/2023) [facility] Narrative* Problem Noted Date Diagnosed Date Resolved Date Benign neoplasm of colon 08/20/2006 ABDOMINAL PAIN( Right Upper Quadrant) 07/17/2006 03/05/2009 Unspecified asthma, with status asthmaticus 03/28/2007 Migraine without aura 2007 documented as of this encounter (statuses as of 04/09/2023) [address]11-2006 History of Past illness Narrative* Problem Noted Date Diagnosed Date Resolved Date Benign neoplasm of colon 08/20/2006 ABDOMINAL PAIN( Right Upper Quadrant) 07/17/2006 03/05/2009 Unspecified asthma, with status asthmaticus 03/28/2007 Migraine without aura 2007 documented as of this encounter (statuses as of 05/04/2023) [facility] Narrative* Problem Noted Date Diagnosed Date Resolved Date Benign neoplasm of colon 08/20/2006 ABDOMINAL PAIN( Right Upper Quadrant) 07/17/2006 03/05/2009 Unspecified asthma, with status asthmaticus 03/28/2007 Migraine without aura 2007 documented as of this encounter (statuses as of 05/04/2023) [facility] Narrative* Problem Noted Date Diagnosed Date Resolved Date Benign neoplasm of colon 08/20/2006 ABDOMINAL PAIN( Right Upper Quadrant) 07/17/2006 03/05/2009 Unspecified asthma, with status asthmaticus 03/28/2007 Migraine without aura 2007 documented as of this encounter (statuses as of 05/04/2023) [facility] Past illness Narrative* Problem Noted Date Diagnosed Date Resolved Date Benign neoplasm of colon 08/20/2006 ABDOMINAL PAIN( Right Upper Quadrant) 07/17/2006 03/05/2009 Unspecified asthma, with status asthmaticus 03/28/2007 Migraine without aura 2007 documented as of this encounter (statuses as of 07/15/2023) [facility] Past [facility] Narrative* Problem Noted Date Diagnosed Date Resolved Date Benign neoplasm of colon 08/20/2006 ABDOMINAL PAIN( Right Upper Quadrant) 07/17/2006 03/05/2009 Unspecified asthma, with status asthmaticus 03/28/2007 Migraine without aura 2007 documented as of this encounter (statuses as of 07/15/2023) [facility] Past illness Narrative* Problem Noted Date Diagnosed Date Resolved Date Benign neoplasm of colon 08/20/2006 ABDOMINAL PAIN( Right Upper Quadrant) 07/17/2006 03/05/2009 Unspecified asthma, with status asthmaticus 03/28/2007 Migraine without aura 2007 documented as of this encounter (statuses as of 07/15/2023) [facility] Past [facility] Narrative* Problem Noted Date Diagnosed Date Resolved Date Benign neoplasm of colon 08/20/2006 ABDOMINAL PAIN( Right Upper Quadrant) 07/17/2006 03/05/2009 Unspecified asthma, with status asthmaticus 03/28/2007 Migraine without aura 2007 documented as of this encounter (statuses as of 07/31/2023) [facility] Narrative* Problem Noted Date Diagnosed Date Resolved Date Benign neoplasm of colon 08/20/2006 ABDOMINAL PAIN( Right Upper Quadrant) 07/17/2006 03/05/2009 Unspecified asthma, with status asthmaticus 03/28/2007 Migraine without aura 2007 documented as of this encounter (statuses as of 07/31/2023) [facility] Past illness Narrative* Problem Noted Date Diagnosed Date Resolved Date Benign neoplasm of colon 08/20/2006 ABDOMINAL PAIN( Right Upper Quadrant) 07/17/2006 03/05/2009 Unspecified asthma, with status asthmaticus 03/28/2007 Migraine without aura 2007 documented as of this encounter (statuses as of 08/08/2023) [place] [address]-11-2006 History of Past illness Narrative* Problem Noted Date Diagnosed Date Resolved Date Benign neoplasm of colon 08/20/2006 ABDOMINAL PAIN( Right Upper Quadrant) 07/17/2006 03/05/2009 Unspecified asthma, with status asthmaticus 03/28/2007 Migraine without aura 2007 documented as of this encounter (statuses as of 08/09/2023) [address]11-2006 History of Past illness Narrative* Problem Noted Date Diagnosed Date Resolved Date Benign neoplasm of colon 08/20/2006 ABDOMINAL PAIN( Right Upper Quadrant) 07/17/2006 03/05/2009 Unspecified asthma, with status asthmaticus 03/28/2007 Migraine without aura 2007 documented as of this encounter (statuses as of 11/22/2023) [address]11-2006 History of Past illness Narrative* Problem Noted Date Diagnosed Date Resolved Date Benign neoplasm of colon 08/20/2006 ABDOMINAL PAIN( Right Upper Quadrant) 07/17/2006 03/05/2009 Unspecified asthma, with status asthmaticus 03/28/2007 Migraine without aura 2007 documented as of this encounter (statuses as of 11/22/2023) [facility] Diagnosis Encounter for examination required by Department of Transportation (DOT)- Primary [facility] Moderate persistent asthma with exacerbation- Primary Unspecified asthma, with exacerbation [facility] Diagnosis Migraine without aura and without status migrainosus, not intractable Migraine without aura, without mention of intractable migraine without mention of status migrainosus [facility] Diagnosis Pure hypercholesterolemia Displacement of lumbar intervertebral disc without myelopathy [facility] Diagnosis BENIGN HYPERTENSION Essential hypertension, benign [facility] Diagnosis Gastroesophageal reflux disease without esophagitis Esophageal reflux [facility] Diagnosis Hypokalemia Hypopotassemia [facility] Diagnosis Moderate persistent asthma with exacerbation Unspecified asthma, with exacerbation [facility] Diagnosis Sinobronchitis- Primary Unspecified sinusitis (chronic) Mild intermittent asthma with acute exacerbation Unspecified asthma, with exacerbation Wheezing [facility] Diagnosis Migraine without aura and without status migrainosus, not intractable Migraine without aura, without mention of intractable migraine without mention of status migrainosus Displacement of lumbar intervertebral disc without myelopathy [facility]* Diagnosis BENIGN HYPERTENSION Essential hypertension, benign [facility]* Diagnosis Localized swelling, mass and lump, neck- Primary Swelling, mass, or lump in head and neck Neck pain without injury Localized enlarged lymph nodes Enlargement of lymph nodes documented [facility]* Diagnosis Elevated alanine aminotransferase (ALT) level- Primary Nonspecific elevation of levels of transaminase or lactic acid dehydrogenase (LDH) Neck pain without injury documented in this encounter [facility] Diagnosis Neck pain without injury Neck pain Cervicalgia documented in this encounter [facility]* Diagnosis Localized swelling, mass and lump, neck Swelling, mass, or lump in head and neck Neck pain without injury Localized enlarged lymph nodes Enlargement of lymph nodes documented in this encounter [facility]* Diagnosis Acute non-recurrent maxillary sinusitis- Primary Acute pain of left knee Infected abrasion of left knee, initial encounter documented in this encounter [facility]* Diagnosis Neck pain- Primary Cervicalgia documented in this encounter [facility]* Diagnosis Neck pain- Primary Cervicalgia documented in this encounter [facility]* Diagnosis Neck pain- Primary Cervicalgia documented in this encounter [facility]* Diagnosis Neck pain- Primary Cervicalgia documented in this encounter [facility]* Diagnosis Neck pain- Primary Cervicalgia documented in this encounter [facility]* Diagnosis Chronic neck pain- Primary Cervicalgia Cervical radiculopathy Brachial neuritis or radiculitis nos Cervical disc disorder at C4-C5 level with radiculopathy Attention deficit Attention or concentration deficit documented in this encounter [facility]* Diagnosis BENIGN HYPERTENSION Essential hypertension, benign documented in this encounter [facility]* Diagnosis Hypokalemia Hypopotassemia documented in this encounter [facility]* Diagnosis Sinobronchitis- Primary Unspecified sinusitis (chronic) [facility] Diagnosis Bronchitis- Primary Bronchitis, not specified as acute or chronic Asthma, moderate persistent, well-controlled Unspecified asthma Chronic allergic rhinitis Allergic rhinitis, cause unspecified Wheezing Exposure to radon, initial encounter [facility] Diagnosis Bronchitis Bronchitis, not specified as acute or chronic documented in this encounter [facility]* Diagnosis Bronchitis- Primary Bronchitis, not specified as acute or chronic Asthma, moderate persistent, well-controlled Unspecified asthma Sarcoidosis of lung (HCC) Sarcoidosis documented in this encounter [facility]* Diagnosis Dyslipidemia- Primary Other and unspecified hyperlipidemia Vitamin D deficiency Unspecified vitamin D deficiency IFG (impaired fasting glucose) Impaired fasting glucose LVH (left ventricular hypertrophy) Cardiomegaly Asthma, moderate persistent, well-controlled Unspecified asthma Exposure to radon, initial encounter Wheezing documented [facility] this encounter [facility] Diagnosis Bronchitis Bronchitis, not specified as acute or chronic Asthma, moderate persistent, well-controlled Unspecified asthma Sarcoidosis of lung (HCC) Sarcoidosis documented in this encounter [facility]* Diagnosis Bronchitis Bronchitis, not specified as acute or chronic Asthma, moderate persistent, well-controlled Unspecified asthma Sarcoidosis of lung (HCC) Sarcoidosis documented in this encounter [facility]* Diagnosis BENIGN HYPERTENSION Essential hypertension, benign Displacement of lumbar intervertebral disc without myelopathy documented in this [facility]* Diagnosis IFG (impaired fasting glucose)- Primary Impaired fasting glucose documented in this [facility]* Diagnosis New onset type 2 diabetes mellitus (HCC)- Primary Hyperlipidemia, mixed Mixed hyperlipidemia Acute pain of right shoulder documented in this encounter [facility]* Diagnosis Acute pain of right shoulder- Primary documented in this encounter [facility]* Diagnosis Onset Date Resolution Status Degenerative disc disease, cervical acute [facility] Work Phone: Evaluation note* Diagnosis Dyslipidemia- [...] neck pain Cervicalgia documented in this encounter [facility]* Diagnosis Migraine without aura and without status migrainosus, not intractable Migraine without aura, without mention of intractable migraine without mention of status migrainosus [facility] Diagnosis Displacement of lumbar intervertebral disc without myelopathy [facility] this [facility] Diagnosis Migraine without aura and without status migrainosus, not intractable Migraine without aura, without mention of intractable migraine without mention of status migrainosus [facility] Diagnosis BENIGN HYPERTENSION Essential hypertension, benign Displacement of lumbar intervertebral disc without myelopathy [facility] Diagnosis External hemorrhoid External hemorrhoids without mention of complication Hyperlipidemia, mixed Mixed hyperlipidemia [facility] Diagnosis Wheezing Bronchitis Bronchitis, not specified as acute or chronic [facility] Diagnosis Gastroesophageal reflux disease without esophagitis Esophageal reflux [facility] Diagnosis BENIGN HYPERTENSION Essential hypertension, benign [facility]* Diagnosis Chronic allergic rhinitis Allergic rhinitis, cause unspecified [facility] Diagnosis Hypokalemia Hypopotassemia [facility] Diagnosis Displacement of lumbar intervertebral disc without myelopathy Hypokalemia Hypopotassemia Chronic allergic rhinitis Allergic rhinitis, cause unspecified [facility] Diagnosis BENIGN HYPERTENSION Essential hypertension, benign [facility] Diagnosis Displacement of lumbar intervertebral disc without myelopathy [facility] Diagnosis BENIGN HYPERTENSION- Primary Essential [...] neoplasm of prostate [facility] Diagnosis Hyperlipidemia, mixed- Primary Mixed hyperlipidemia [facility] Diagnosis Gastroesophageal reflux disease, unspecified whether esophagitis present- Primary Screening for colon cancer Special screening for malignant neoplasms, colon Hyperlipidemia, mixed Mixed hyperlipidemia Irritable bowel syndrome with constipation Irritable bowel syndrome Diarrhea, unspecified type Personal history of colonic polyps documented in this encounter [facility]* Diagnosis Displacement of lumbar intervertebral disc without myelopathy documented in this encounter [facility]* Diagnosis Essential hypertension, benign- Primary Anxiety with depression documented [facility] this [facility]* Diagnosis Diarrhea, unspecified type- Primary Screening for colon cancer Special screening for malignant neoplasms, colon Hyperlipidemia, mixed Mixed hyperlipidemia Gastroesophageal reflux disease, unspecified whether esophagitis present Irritable bowel syndrome with constipation Irritable bowel syndrome Personal history of colonic polyps documented in this encounter [facility]* Diagnosis Gastroesophageal reflux disease with esophagitis without hemorrhage- Primary Diarrhea, unspecified type documented in this encounter [facility]* Diagnosis Asthma, moderate persistent, well-controlled Unspecified asthma Chronic allergic rhinitis Allergic rhinitis, cause unspecified Bronchitis Bronchitis, not specified as acute or chronic documented in this encounter [facility]* Diagnosis Acute pain of right shoulder documented in this encounter [facility]* Diagnosis Neck pain without injury documented in this [facility]* Diagnosis Acute pain of left knee documented in this encounter [facility]* Diagnosis Cough documented in this encounter [facility]* Diagnosis Pain of left thumb Pain in limb Foot pain, left Pain in limb documented in this encounter 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* Diagnosis Pulmonary nodule Solitary pulmonary nodule documented in this encounter [facility]* Diagnosis Tobacco abuse Tobacco use disorder documented in this encounter [facility]* Diagnosis Elevated LFTs- Primary Other abnormal blood chemistry Hypokalemia Hypopotassemia documented in this [facility]* Diagnosis Essential hypertension, benign documented in this encounter [facility]* Diagnosis Chronic allergic rhinitis Allergic rhinitis, cause unspecified documented [facility] this [facility]* Diagnosis External hemorrhoid External hemorrhoids without mention of complication Migraine without aura and without status migrainosus, not intractable Migraine without aura, without mention of intractable migraine without mention of status migrainosus documented in this encounter [facility]* Diagnosis Asthma, moderate persistent, well-controlled Unspecified asthma Chronic allergic rhinitis Allergic rhinitis, cause unspecified Mild persistent asthma without complication Unspecified asthma Bronchitis Bronchitis, not specified as acute or chronic documented in this encounter [facility]* Diagnosis Encounter for screening for lung cancer- Primary Tobacco abuse Tobacco use disorder documented in this encounter [facility] note* Diagnosis Asthma, moderate persistent, poorly-controlled- Primary Unspecified asthma H/O sarcoidosis Personal history of other endocrine, metabolic, and immunity disorders Former cigarette smoker Personal history of tobacco use, presenting hazards to health documented in this encounter [facility]* Diagnosis Displacement of lumbar intervertebral disc without myelopathy documented in this encounter [facility]* Diagnosis Asthma, moderate persistent, poorly-controlled (HCC) Unspecified asthma documented in this encounter [facility] note* Diagnosis Asthma, moderate persistent, poorly-controlled (HCC) Unspecified asthma documented in this encounter [facility]* Diagnosis Asthma, moderate persistent, poorly-controlled (HCC)- Primary Unspecified asthma Acute non-recurrent maxillary sinusitis Chronic allergic rhinitis Allergic rhinitis, cause unspecified Daytime sleepiness Former cigarette smoker Personal history of tobacco use, presenting hazards to health documented in this encounter [facility]* Diagnosis IFG (impaired fasting glucose)- Primary [...] (HCC) Unspecified asthma documented [facility] this [facility]* Diagnosis Rib pain on left side- Primary Chest pain, unspecified Left sided abdominal pain Abdominal pain, unspecified site Rib pain on left side Chest pain, unspecified documented [facility] this [facility]* Diagnosis Rib pain on left side Chest pain, unspecified documented in this [facility]* Diagnosis Splenomegaly, not elsewhere classified- Primary Left sided abdominal pain Abdominal pain, unspecified site documented in this encounter [facility] note* Diagnosis Procedure not carried out- Primary Procedure not carried out for other reasons documented in this encounter [facility] noteNo assessment information availableWPremier Health [facility] Work Phone: Reason for referral (narrative)* Diagnostic Procedure Only (Routine) - Closed Specialty Diagnoses / Procedures Referred By Contac t Referred To Contact XR IMAGING Diagnoses Neck pain without injury Procedures XR CERV OTHER 4V AP/LAT/OBL RADEX SPINE CERVICAL 4 OR 5 VIEWS Avni Salcedo DO [address] [place] [address] Xr Imaging Referral ID Status Reason Start Date Expiration Date V isits Requested Visits Authorized [id number] Closed Auto-Generate d Referral 05/19/2022 09/09/2022 1 1 * MRI/CT (Routine) - Pending Review Specialty Diagnoses / Procedures Referred By Contac t Referred To Contact CT IMAGING Diagnoses Localized swelling, mass and lump, neck Neck pain without injury Localized enlarged lymph nodes Procedures CT NECK SOFT TISSUE W IVCON CT SOFT TISSUE NECK W/CONTRAST MATERIAL Avni Salcedo DO [address] [place] [address] Ct Imaging Referral ID Status Reason Start Date Expiration Date Visits Requested Visits Authorized [id number] Pending Review Auto-Generat ed Referral 05/19/2022 06/18/2023 1 1 [facility] for referral (narrative)* Outpatient Procedure (Routine) - Authorized Specialty Diagnoses / Procedures Referred By Contac t Referred To Contact [facility] Diagnoses Bronchitis Asthma, moderate persistent, well-controlled Sarcoidosis of lung (HCC) Procedures SPIROMETRY - BASELINE AND POST DILATOR BRNCDILAT RSPSE SPMTRY PRE&POST-BRNCDILAT N Su Ham, HOG TRADER.EARTH BORING MACHINE OPERATOR [address] [place] [address] Res[facility] [place] [address] [place] [address] Referral ID Status Reason Start Date Expiration Date Visits Requested Visits Authorized [id number] Authorized Auto-Generat ed Referral 10/02/2022 11/01/2023 1 1 * Outpatient Procedure (Routine) - Pending Review Specialty Diagnoses / Procedures Referred By Contac t Referred To Contact [facility] Diagnoses Bronchitis Asthma, moderate persistent, well-controlled Sarcoidosis of lung (HCC) Procedures LUNG VOLUMES Su Ham APRN.EARTH BORING MACHINE OPERATOR [address] [place] [address] [facility] [address] [place], [place] [id number] Referral ID Status Reason Start Date Expiration Date Visits Requested Visits Authorized [id number] Pending Review Auto-Generat ed Referral 10/02/2022 11/01/2023 1 1 [facility] for referral (narrative)* Outpatient Procedure (Routine) - Authorized Specialty Diagnoses / Procedures Referred By Contac t Referred To Contact [facility] Diagnoses LVH (left ventricular hypertrophy) Procedures ECHO ECHO TTHRC R-T 2D W/WOM-MODE COMPL SPEC&COLR D Avni Salcedo DO [address] [place] [address] [facility] [place] [id number] Referral ID Status Reason Start Date Expiration Date Visits Requested Visits Authorized [id number] Authorized Auto-Generat ed Referral 10/11/2022 10/11/2023 1 1 [facility] for referral (narrative)* Diagnostic Procedure Only (Routine) - Closed Specialty Diagnoses / Procedures Referred By Contac t Referred To Contact XR IMAGING Diagnoses Acute pain of right shoulder Procedures XR SHOULDER GENERAL 3V OR MORE AP/TRUE AP/OTHER RIGHT RADEX SHOULDER COMPLETE MINIMUM 2 VIEWS Su Ham APRN.EARTH BORING MACHINE OPERATOR [address] [place] [address] Xr Imaging Referral ID Status Reason Start Date Expiration Date V isits Requested Visits Authorized [id number] Closed Auto-Generate d Referral 11/01/2022 12/01/2023 1 [...] TRANSORAL DIAGNOSTIC John Chowdhury MD [address] [phone] [place] [id number] Referral ID Status Reason Start Date Expiration Date V isits Requested Visits Authorized [id number] Closed Auto-Generated Referral Patient Cleared - INN [...] WHEN PFRMD John Chowdhury MD [address] [address] Referral ID Status Reason Start Date Expiration Date V isits Requested Visits Authorized [id number] Closed Auto-Generated Referral Patient Cleared - Qualified 100% FAS 04/16/2024 09/09/2024 1 1 [facility] for referral (narrative)* Diagnostic Procedure Only (Routine) - Closed Specialty Diagnoses / Procedures Referred By Contac t Referred To Contact XR IMAGING Diagnoses Acute pain of right shoulder Procedures XR SHOULDER GENERAL 3V OR MORE AP/TRUE AP/OTHER RIGHT RADEX SHOULDER COMPLETE MINIMUM 2 VIEWS Su Ham APRN.EARTH BORING MACHINE OPERATOR [address] [place] [address] [place] [address] Referral ID Status Reason Start Date Expiration Date V isits Requested Visits Authorized [id number] Closed Auto-Generate d Referral 11/01/2022 12/01/2023 1 1 [facility] for referral (narrative)* Diagnostic Procedure Only (Routine) - Closed Specialty Diagnoses / Procedures Referred By Contac t Referred To Contact XR IMAGING Diagnoses Neck pain without injury Procedures XR CERV OTHER 4V AP/LAT/OBL RADEX SPINE CERVICAL 4 OR 5 VIEWS Avni Salcedo DO [address] [place] [address] [place] [address] Referral ID Status Reason Start Date Expiration Date V isits Requested Visits Authorized [id number] Closed Auto-Generate d Referral 05/19/2022 09/09/2022 1 1 [facility] for referral (narrative)* Diagnostic Procedure Only (Routine) - Closed Specialty Diagnoses / Procedures Referred By Contac t Referred To Contact XR IMAGING Diagnoses Acute pain of left knee Infected abrasion of left knee, initial encounter Procedures XR KNEE GENERAL 4V AP BOTH/PA BOTH/LAT/MERC LEFT RADIOLOGIC EXAM KNEE COMPLETE 4/MORE VIEWS Su Ham APRN.EARTH BORING MACHINE OPERATOR [address] [place] [address] [place] [address] Referral ID Status Reason Start Date Expiration Date V isits Requested Visits Authorized [id number] Closed Auto-Generate d Referral 11/11/2021 12/11/2022 1 1 [facility] for referral (narrative)* Outpatient Procedure (Routine) - Pending Review Specialty Diagnoses / Procedures Referred By Contac t Referred To Contact [facility] Diagnoses LVH (left ventricular hypertrophy) 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 Procedures ECHO ECHO TTHRC R-T 2D W/WOM-MODE COMPL SPEC&COLR D Avni Salcedo DO [address] [place] [address] [facility] [place] [address] [place] [address] Referral ID Status Reason Start Date Expiration Date Visits Requested Visits Authorized [id number] Pending Review Auto-Generat ed Referral 06/16/2024 06/16/2025 1 1 * MRI/CT (Routine) - Open Specialty Diagnoses / Procedures [facility] CT [facility] Diagnoses Pulmonary nodule Procedures CT CHEST WO IVCON DIAGNOSTIC COMPUTED TOMOGRAPHY THORAX W/O CNTRST Avni Salcedo DO [address] [place] [address] Ct Imaging [id number] Referral ID Status Reason Start Date Expiration Date V isits Requested Visits Authorized [id number] Open Auto-Generate d Referral 06/16/2024 07/16/2025 1 1 * Diagnostic Procedure Only (Routine) - Closed Specialty Diagnoses / Procedures [facility] X[facility] Diagnoses Foot pain, left Procedures XR FOOT GENERAL 3V AP/LAT/OBL LEFT RADEX FOOT COMPLETE MINIMUM 3 VIEWS Avni Salcedo DO [address] [place] [address] [place] [address] Referral ID Status Reason Start Date Expiration Date V isits Requested Visits Authorized [id number] Closed Auto-Generate d Referral 06/16/2024 07/16/2025 1 1 * Diagnostic Procedure Only (Routine) - Closed Specialty Diagnoses / Procedures Referred By Contac t Referred To Contact XR IMAGING Diagnoses Pain of left thumb Procedures XR HAND GENERAL 3V PA/LAT/OBL LEFT RADEX HAND MINIMUM 3 VIEWS Avni Salcedo DO [address] [place] [address] Xr Imaging [id number] Referral ID Status Reason Start Date Expiration Date V isits Requested Visits Authorized [id number] Closed Auto-Generate d Referral 06/16/2024 07/16/2025 1 1 [facility] for referral (narrative)* Outpatient Procedure (Routine) - Authorized Specialty Diagnoses / Procedures Referred By Contac t Referred To Contact [facility] Diagnoses Asthma-COPD overlap syndrome (HCC) Procedures SPIROMETRY - BASELINE AND POST DILATOR BRNCDILAT RSPSE SPMTRY PRE&POST-BRNCDILAT ADMN Shayla Rogers MD [address] [place] [address] Respiratory [place] [phone] Referral ID Status Reason Start Date Expiration Date Visits Requested Visits Authorized [id number] Authorized Auto-Generat ed Referral 10/09/2024 11/08/2025 1 1 * Outpatient Procedure (Routine) - Authorized Specialty Diagnoses / Procedures Referred By Contac t Referred To [facility] Diagnoses Asthma-COPD overlap syndrome (HCC) Procedures NITRIC OXIDE, EXHALED NITRIC OXIDE GAS DETERMINATION Shayla Rogers MD [address] [place] [address] Respiratory [place] [phone] Referral ID Status Reason Start Date Expiration Date Visits Requested Visits Authorized [id number] Authorized Auto-Generat ed Referral 10/09/2024 11/08/2025 1 1 * Medication Prior Authorization - Closed Specialty Diagnoses / Procedures Referred By Contac t Referred To Contact Diagnoses Asthma-COPD overlap syndrome (HCC) Shayla Rogers MD [address] [place] [address] Referral ID Status Reason Start Date Expiration Date Visits Re quested Visits Authorized [id number] Closed 1 1 [facility] for referral (narrative)No reason for referral information availableWPremier Health [facility] Work Phone: [facility] Narrative* Diagnostic Procedure Only (Routine) - Closed Specialty Diagnoses / Procedures Referred By Ange t Referred To Contact Radiology / RADIO MRI [facility] Diagnoses MRI CERVICAL SPINE WO IVCON order in scanned doc Procedures MRI SPINAL CANAL CERVICAL W/O & W/CONTR MATRL MRI WO LORRAINE B 300 ALL Self Radio Mri [facility] [address] [place] [address] Referral ID Status Reason Start Date Expiration Date V isits Requested Visits Authorized [id number] Closed Patient Cleared INN/SMCP Payor Auth Obtained 10/18/2022 09/09/2023 1 1 [facility] for visit Narrative* Diagnostic Procedure Only (Routine) - Closed Specialty Diagnoses / Procedures Referred By Ange sheets Referred To Contact Radiology / RADIO MRI [facility] MOB Diagnoses Sprain of right shoulder SPRAIN OF RIGHT SHOULDER JOINT / ADHESIVE CAPULITIS OF RIGHT SHOULDER Procedures MRI ANY JT UPPER EXTREMITY W/O CONTRAST MATRL MRI WO MSK2 SHLDR 300 ArletteNeva R [address] [place] [address] Radio Mri [facility] [address] [place] [address] Referral ID Status Reason Start Date Expiration Date V isits Requested Visits Authorized [id number] Closed Clearance Not Met - Admin/Chairm an/Director [...] TRANSORAL DIAGNOSTIC John Chowdhury MD [address] [address] [facility] [address] [place] [address] Referral ID Status Reason Start Date Expiration Date V isits Requested Visits Authorized [id number] Closed Auto-Generated Referral Patient Cleared - INN Insurance Found 04/14/2024 09/09/2024 1 1 [facility] for visit Narrative* Diagnostic Procedure Only (Routine) - Closed Specialty Diagnoses / Procedures Referred By Ange sheets Referred To Contact XR IMAGING Diagnoses Acute pain of right shoulder Procedures XR SHOULDER GENERAL 3V OR MORE AP/TRUE AP/OTHER RIGHT RADEX SHOULDER COMPLETE MINIMUM 2 VIEWS Su Ham APRN.EARTH BORING MACHINE OPERATOR [address] [place] [address] [place] [address] Referral ID Status Reason Start Date Expiration Date V isits Requested Visits Authorized [id number] Closed Auto-Generate d Referral 11/01/2022 12/01/2023 1 1 [facility] for visit Narrative* Diagnostic Procedure Only (Routine) - Closed Specialty Diagnoses / Procedures Referred By Ange sheets Referred To Contact XR IMAGING Diagnoses Neck pain without injury Procedures XR CERV OTHER 4V AP/LAT/OBL RADEX SPINE CERVICAL 4 OR 5 VIEWS Avni aSlcedo L, DO [address] [place] [address] [place] [address] Referral ID Status Reason Start Date Expiration Date V isits Requested Visits Authorized [id number] Closed Auto-Generate d Referral 05/19/2022 09/09/2022 1 1 [facility] for visit Narrative* Diagnostic Procedure Only (Routine) - Closed Specialty Diagnoses / Procedures Referred By Ange sheets Referred To Contact XR IMAGING Diagnoses Acute pain of left knee Infected abrasion of left knee, initial encounter Procedures XR KNEE GENERAL 4V AP BOTH/PA BOTH/LAT/MERC LEFT RADIOLOGIC EXAM KNEE COMPLETE 4/MORE VIEWS Su Ham APRN.EARTH BORING MACHINE OPERATOR [address] [place] [address] [place] [address] Referral ID Status Reason Start Date Expiration Date V isits Requested Visits Authorized [id number] Closed Auto-Generate d Referral 11/11/2021 12/11/2022 1 1 [facility] for visit Narrative* Diagnostic Procedure Only (Urgent) - Closed Specialty Diagnoses / Procedures Referred By Contac t Referred To Contact XR IMAGING Diagnoses Acute right ankle pain Procedures XR ANKLE GENERAL 3V AP/LAT/OBL RIGHT X-RAY ANKLE MINIMUM 3 VIEWS Marce Menjivar, TYRELL [address] [place] [address] Xr Imaging [facility]95 Referral ID Status Reason Start Date Expiration Date V isits Requested Visits Authorized [id number] Closed Auto-Generate d Referral 07/28/2021 08/27/2022 1 1 [facility] for visit Narrative* Diagnostic Procedure Only (Routine) - Closed Specialty Diagnoses / Procedures Referred By Contac t Referred To Contact XR IMAGING Diagnoses Foot pain, left Procedures XR FOOT GENERAL 3V AP/LAT/OBL LEFT RADEX FOOT COMPLETE MINIMUM 3 VIEWS Avni Salcedo, DO [address] [place] [address] [place] [address] Referral ID Status Reason Start Date Expiration Date V isits Requested Visits Authorized [id number] Closed Auto-Generate d Referral 06/16/2024 07/16/2025 1 1 [facility] for visit Narrative* Diagnostic Procedure Only (Urgent) - Closed Specialty Diagnoses / Procedures Referred By Contac t Referred To Contact XR IMAGING Diagnoses Rib pain on left side Procedures XR RIBS/CHEST 3V AP RIB/OBLS/CXR LEFT RADEX RIBS UNI W/POSTEROANT CH MINIMUM 3 VIEWS Elmer White MD [address] [place] [address] Phone: tel: fax: [place] [id number] Referral ID Status Reason Start Date Expiration Date V isits Requested Visits Authorized [id number] Closed Auto-Generate d Referral 01/12/2025 02/11/2026 1 1 [facility] Summary Purpose Family History Relationship Condition Age [...] No November 16, 2022 7:46pm Power of Digital Computer Systems Analyst No November 16 7:46pm Advance Directive Response Recorded Date/ Time Do you have a Healthcare Power of Digital Computer Systems Analyst? No February 21, 2025 10:48am Advance Directives No January 14, 2016 8:51am Reason for Referral Specialty Diagnoses / Procedures Referred By Ange t Referred To Contact [facility] Diagnoses Neck pain without injury Procedures CONSULT TO PHYSICAL THERAPY PHYSICAL THERAPY EVALUATION HIGH COMPLEX 45 MINS Su Bass, HOG TRADER.EARTH BORING MACHINE OPERATOR [address] [place] [address] [facility] [address] [place] [address] Referral ID Status Reason Start Date Expiration Date Visits Requested Visits Authorized [id number] Authorized Auto-Generat ed Referral 12/09/2021 09/09/2022 30 30 Specialty Diagnoses / Procedures Referred By Ange t Referred To Contact CT IMAGING Diagnoses Localized swelling, mass and lump, neck Neck pain without injury Localized enlarged lymph nodes Procedures CT NECK SOFT TISSUE W IVCON CT SOFT TISSUE NECK W/CONTRAST MATERIAL Avni Salcedo L, DO [address] [place] [address] Ct Imaging Referral ID Status Reason Start Date Expiration Date V isits Requested Visits Authorized [id number] Closed Auto-Generate d Referral 05/19/2022 06/18/2023 1 1 Specialty Diagnoses / Procedures Referred By Ange t Referred To Contact Pain Management Diagnoses Cervical radiculopathy Cervical disc disorder at C4-C5 level with radiculopathy Procedures CONSULT TO PAIN MGT OFFICE/OUTPATIENT [facility] MDM 60-74 MINUTES Avni Salcedo, DO [address] [place] [address] Referral ID Status Reason Start Date Expiration Date Visits Requested Visits Authorized [id number] Pending Review PCP Requested Referral 07/10/2023 1 1 Specialty Diagnoses / Procedures Referred By Contac t Referred To Contact CT IMAGING Diagnoses Wheezing Bronchitis Procedures CT CHEST WO IVCON DIAGNOSTIC COMPUTED TOMOGRAPHY THORAX W/O CNTRST Su Ham, HOG TRADER.EARTH BORING MACHINE OPERATOR [address] [place] [address] Ct Imaging Referral ID Status Reason Start Date Expiration Date Visits Requested Visits Authorized [id number] Pending Review Auto-Generat ed Referral 09/22/2022 10/22/2023 1 1 Specialty Diagnoses / Procedures Referred By Contac t Referred To Contact Orthopedics Diagnoses Acute pain of right shoulder Procedures CONSULT TO ORTHOPAEDICS OFFICE/OUTPATIENT [facility] 60-74 MINUTES Su Ham, HOG TRADER.EARTH BORING MACHINE OPERATOR [address] [place] [address] Referral ID Status Reason Start Date Expiration Date Visits Requested Visits Authorized [id number] Pending Review PCP Requested Referral 11/10/2022 11/10/2023 1 1 Specialty Diagnoses / Procedures Referred By Contac t Referred To Contact CT IMAGING Diagnoses Wheezing Bronchitis Procedures CT CHEST WO IVCON DIAGNOSTIC COMPUTED TOMOGRAPHY THORAX W/O CNTRST Su Ham, HOG TRADER.EARTH BORING MACHINE OPERATOR [address] [place] [address] [place] [address] Referral ID Status Reason Start Date Expiration Date V isits Requested Visits Authorized [id number] Closed Auto-Generate d Referral 09/25/2022 11/24/2022 1 1 Specialty Diagnoses / Procedures Referred By Contac t Referred To Contact General Surgery Diagnoses Screening for colon cancer Procedures CONSULT TO GENERAL SURGERY OFFICE/OUTPATIENT [facility] MDM 60 MINUTES Su Ham, HOG TRADER.EARTH BORING MACHINE OPERATOR [address] [place] [address] Referral ID Status Reason Start Date Expiration Date Visits Requested Visits Authorized [id number] Authorized PCP Requested Referral 01/31/2024 01/30/2025 1 1 Specialty Diagnoses / Procedures Referred By Ange sheets Referred To Contact [facility] Diagnoses Screening for colon cancer Hyperlipidemia, mixed Gastroesophageal reflux disease, unspecified whether esophagitis present Irritable bowel syndrome with constipation Diarrhea, unspecified type Personal history of colonic polyps Procedures EGD DIAGNOSTIC ESOPHAGOGASTRODUODENOSC OPY TRANSORAL DIAGNOSTIC John Chowdhury MD [address] [address] Referral ID Status Reason Start Date Expiration Date Visits Requested Visits Authorized [id number] Authorized Auto-Generate d Referral Patient Cleared - [...] WHEN PFRMD John Chowdhury MD [address] [place] [id number] [address] Referral ID Status Reason Start Date Expiration Date Visits Requested Visits Authorized [id number] Pending Review Auto-Generat ed Referral 02/08/2024 02/07/2025 1 1 Specialty Diagnoses / Procedures Referred By Ange t Referred To Contact Diagnoses External hemorrhoid Su Ham, HOG TRADER.EARTH BORING MACHINE OPERATOR [address] [place] [address] Referral ID Status Reason Start Date Expiration Date V isits Requested Visits Authorized [id number] Pending Review 1 1 Specialty Diagnoses / Procedures Referred By Ange t Referred To Contact Diagnoses Asthma, moderate persistent, well-controlled Chronic allergic rhinitis Allyson Gonzalez PA-C [address] [place] [address] Referral ID Status Reason Start Date Expiration Date V isits Requested Visits Authorized [id number] Authorized 10/06/2024 10/05/2025 1 1 Specialty Diagnoses / Procedures Referred By Ange sheets Referred To Contact CT IMAGING Diagnoses Tobacco abuse Encounter for screening for lung cancer Procedures CT LUNG SCREEN WO IVCON COMPUTED TOMOGRAPHY THORAX LW DOSE LNG CA SCR C- Elmira Farrar, HOG TRADER.EARTH BORING MACHINE OPERATOR [address] [place] [address] Ct Imaging [place] [address] Referral ID Status Reason Start Date Expiration Date Visits Requested Visits Authorized [id number] Pending Review Auto-Generat ed Referral 10/06/2024 11/05/2025 [...] section and content) DATE CREATED AUTHOR 03/05/2018 [facility] DATE CREATED AUTHOR AUTHOR'S ORGANIZ ATION 03/05/2018 [facility] DATE CREATED AUTHOR AUTHOR'S ORGANIZ ATION 10/15/2018 [facility] DATE CREATED AUTHOR AUTHOR'S ORGANIZ ATION 04/27/2024 [facility] DATE CREATED AUTHOR AUTHOR'S ORGANIZ ATION 01/05/2025 [facility] DATE CREATED AUTHOR AUTHOR'S ORGANIZ ATION 02/07/2025 [facility] DATE CREATED AUTHOR AUTHOR'S ORGANIZ ATION 02/11/2025 [facility] Ce nter Source Comments (unrecognize d section and content) In the event this informatio n is protected by the Federal Confidentiality of Alcohol and Drug Abuse Patient Records regulations: The Federal rules restrict any use of the information to criminally investigate or prosecute any alcohol or drug abuse patient.[facility] Center[facility] the event this information is protected by the Federal Confidentiality of Alcohol and Drug Abuse Patient Records regulations: The Federal rules restrict any use of the information to criminally investigate or prosecute any alcohol or drug abuse patient.[facility] CenterIn the event this information is protected by the Federal Confidentiality of Alcohol and Drug Abuse Patient Records regulations: The Federal rules restrict any use of the information to criminally investigate or prosecute any alcohol or drug abuse patient.[facility] CenterIn the event this information is protected by the Federal Confidentiality of Alcohol and Drug Abuse Patient Records regulations: The Federal rules restrict any use of the information to criminally investigate or prosecute any alcohol or drug abuse patient.[facility] CenterIn the event this information is protected by the Federal Confidentiality of Alcohol and Drug Abuse Patient Records regulations: The Federal rules restrict any use of the information to criminally investigate or prosecute any alcohol or drug abuse patient.[facility] CenterIn the event this information is protected by the Federal Confidentiality of Alcohol and Drug Abuse Patient Records regulations: The Federal rules restrict any use of the information to criminally investigate or prosecute any alcohol or drug abuse patient.[facility] CenterIn the event this information is protected by the Federal Confidentiality of Alcohol and Drug Abuse Patient Records regulations: The Federal rules restrict any use of the information to criminally investigate or prosecute any alcohol or drug abuse patient.[facility] CenterIn the event this information is protected by the Federal Confidentiality of Alcohol and Drug Abuse Patient Records regulations: The Federal rules restrict any use of the information to criminally investigate or prosecute any alcohol or drug abuse patient.[facility] CenterIn the event this information is protected by the Federal Confidentiality of Alcohol and Drug Abuse Patient Records regulations: The Federal rules restrict any use of the information to criminally investigate or prosecute any alcohol or drug abuse patient.[facility] CenterIn the event this information is protected by the Federal Confidentiality of Alcohol and Drug Abuse Patient Records regulations: The Federal rules restrict any use of the information to criminally investigate or prosecute any alcohol or drug abuse patient.[facility] CenterIn the event this information is protected by the Federal Confidentiality of Alcohol and Drug Abuse Patient Records regulations: The Federal rules restrict any use of the information to criminally investigate or prosecute any alcohol or drug abuse patient.[facility] CenterIn the event this information is protected by the Federal Confidentiality of Alcohol and Drug Abuse Patient Records regulations: The Federal rules restrict any use of the information to criminally investigate or prosecute any alcohol or drug abuse patient.[facility] CenterIn the event this information is protected by the Federal Confidentiality of Alcohol and Drug Abuse Patient Records regulations: The Federal rules restrict any use of the information to criminally investigate or prosecute any alcohol or drug abuse patient.[facility] CenterIn the event this information is protected by the Federal Confidentiality of Alcohol and Drug Abuse Patient Records regulations: The Federal rules restrict any use of the information to criminally investigate or prosecute any alcohol or drug abuse patient.[facility] CenterIn the event this information is protected by the Federal Confidentiality of Alcohol and Drug Abuse Patient Records regulations: The Federal rules restrict any use of the information to criminally investigate or prosecute any alcohol or drug abuse patient.[facility] CenterIn the event this information is protected by the Federal Confidentiality of Alcohol and Drug Abuse Patient Records regulations: The Federal rules restrict any use of the information to criminally investigate or prosecute any alcohol or drug abuse patient.[facility] CenterIn the event this information is protected by the Federal Confidentiality of Alcohol and Drug Abuse Patient Records regulations: The Federal rules restrict any use of the information to criminally investigate or prosecute any alcohol or drug abuse patient.[facility] CenterIn the event this information is protected by the Federal Confidentiality of Alcohol and Drug Abuse Patient Records regulations: The Federal rules restrict any use of the information to criminally investigate or prosecute any alcohol or drug abuse patient.[facility] CenterIn the event this information is protected by the Federal Confidentiality of Alcohol and Drug Abuse Patient Records regulations: The Federal rules restrict any use of the information to criminally investigate or prosecute any alcohol or drug abuse patient.[facility] CenterIn the event this information is protected by the Federal Confidentiality of Alcohol and Drug Abuse Patient Records regulations: The Federal rules restrict any use of the information to criminally investigate or prosecute any alcohol or drug abuse patient.[facility] CenterIn the event this information is protected by the Federal Confidentiality of Alcohol and Drug Abuse Patient Records regulations: The Federal rules restrict any use of the information to criminally investigate or prosecute any alcohol or drug abuse patient.[facility] CenterIn the event this information is protected by the Federal Confidentiality of Alcohol and Drug Abuse Patient Records regulations: The Federal rules restrict any use of the information to criminally investigate or prosecute any alcohol or drug abuse patient.[facility] CenterIn the event this information is protected by the Federal Confidentiality of Alcohol and Drug Abuse Patient Records regulations: The Federal rules restrict any use of the information to criminally investigate or prosecute any alcohol or drug abuse patient.[facility] CenterIn the event this information is protected by the Federal Confidentiality of Alcohol and Drug Abuse Patient Records regulations: The Federal rules restrict any use of the information to criminally investigate or prosecute any alcohol or drug abuse patient.[facility] CenterIn the event this information is protected by the Federal Confidentiality of Alcohol and Drug Abuse Patient Records regulations: The Federal rules restrict any use of the information to criminally investigate or prosecute any alcohol or drug abuse patient.[facility] CenterIn the event this information is protected by the Federal Confidentiality of Alcohol and Drug Abuse Patient Records regulations: The Federal rules restrict any use of the information to criminally investigate or prosecute any alcohol or drug abuse patient.[facility] CenterIn the event this information is protected by the Federal Confidentiality of Alcohol and Drug Abuse Patient Records regulations: The Federal rules restrict any use of the information to criminally investigate or prosecute any alcohol or drug abuse patient.[facility] CenterIn the event this information is protected by the Federal Confidentiality of Alcohol and Drug Abuse Patient Records regulations: The Federal rules restrict any use of the information to criminally investigate or prosecute any alcohol or drug abuse patient.[facility] CenterIn the event this information is protected by the Federal Confidentiality of Alcohol and Drug Abuse Patient Records regulations: The Federal rules restrict any use of the information to criminally investigate or prosecute any alcohol or drug abuse patient.[facility] CenterIn the event this information is protected by the Federal Confidentiality of Alcohol and Drug Abuse Patient Records regulations: The Federal rules restrict any use of the information to criminally investigate or prosecute any alcohol or drug abuse patient.[facility] CenterIn the event this information is protected by the Federal Confidentiality of Alcohol and Drug Abuse Patient Records regulations: The Federal rules restrict any use of the information to criminally investigate or prosecute any alcohol or drug abuse patient.[facility] CenterIn the event this information is protected by the Federal Confidentiality of Alcohol and Drug Abuse Patient Records regulations: The Federal rules restrict any use of the information to criminally investigate or prosecute any alcohol or drug abuse patient.[facility] CenterIn the event this information is protected by the Federal Confidentiality of Alcohol and Drug Abuse Patient Records regulations: The Federal rules restrict any use of the information to criminally investigate or prosecute any alcohol or drug abuse patient.[facility] CenterIn the event this information is protected by the Federal Confidentiality of Alcohol and Drug Abuse Patient Records regulations: The Federal rules restrict any use of the information to criminally investigate or prosecute any alcohol or drug abuse patient.[facility] CenterIn the event this information is protected by the Federal Confidentiality of Alcohol and Drug Abuse Patient Records regulations: The Federal rules restrict any use of the information to criminally investigate or prosecute any alcohol or drug abuse patient.[facility] CenterIn the event this information is protected by the Federal Confidentiality of Alcohol and Drug Abuse Patient Records regulations: The Federal rules restrict any use of the information to criminally investigate or prosecute any alcohol or drug abuse patient.[facility] CenterIn the event this information is protected by the Federal Confidentiality of Alcohol and Drug Abuse Patient Records regulations: The Federal rules restrict any use of the information to criminally investigate or prosecute any alcohol or drug abuse patient.[facility] CenterIn the event this information is protected by the Federal Confidentiality of Alcohol and Drug Abuse Patient Records regulations: The Federal rules restrict any use of the information to criminally investigate or prosecute any alcohol or drug abuse patient.[facility] CenterIn the event this information is protected by the Federal Confidentiality of Alcohol and Drug Abuse Patient Records regulations: The Federal rules restrict any use of the information to criminally investigate or prosecute any alcohol or drug abuse patient.[facility] CenterIn the event this information is protected by the Federal Confidentiality of Alcohol and Drug Abuse Patient Records regulations: The Federal rules restrict any use of the information to criminally investigate or prosecute any alcohol or drug abuse patient.[facility] CenterIn the event this information is protected by the Federal Confidentiality of Alcohol and Drug Abuse Patient Records regulations: The Federal rules restrict any use of the information to criminally investigate or prosecute any alcohol or drug abuse patient.[facility] CenterIn the event this information is protected by the Federal Confidentiality of Alcohol and Drug Abuse Patient Records regulations: The Federal rules restrict any use of the information to criminally investigate or prosecute any alcohol or drug abuse patient.[facility] CenterIn the event this information is protected by the Federal Confidentiality of Alcohol and Drug Abuse Patient Records regulations: The Federal rules restrict any use of the information to criminally investigate or prosecute any alcohol or drug abuse patient.[facility] CenterIn the event this information is protected by the Federal Confidentiality of Alcohol and Drug Abuse Patient Records regulations: The Federal rules restrict any use of the information to criminally investigate or prosecute any alcohol or drug abuse patient.[facility] CenterIn the event this information is protected by the Federal Confidentiality of Alcohol and Drug Abuse Patient Records regulations: The Federal rules restrict any use of the information to criminally investigate or prosecute any alcohol or drug abuse patient.[facility] CenterIn the event this information is protected by the Federal Confidentiality of Alcohol and Drug Abuse Patient Records regulations: The Federal rules restrict any use of the information to criminally investigate or prosecute any alcohol or drug abuse patient.[facility] CenterIn the event this information is protected by the Federal Confidentiality of Alcohol and Drug Abuse Patient Records regulations: The Federal rules restrict any use of the information to criminally investigate or prosecute any alcohol or drug abuse patient.[facility] CenterIn the event this information is protected by the Federal Confidentiality of Alcohol and Drug Abuse Patient Records regulations: The Federal rules restrict any use of the information to criminally investigate or prosecute any alcohol or drug abuse patient.[facility] CenterIn the event this information is protected by the Federal Confidentiality of Alcohol and Drug Abuse Patient Records regulations: The Federal rules restrict any use of the information to criminally investigate or prosecute any alcohol or drug abuse patient.[facility] CenterIn the event this information is protected by the Federal Confidentiality of Alcohol and Drug Abuse Patient Records regulations: The Federal rules restrict any use of the information to criminally investigate or prosecute any alcohol or drug abuse patient.[facility] CenterIn the event this information is protected by the Federal Confidentiality of Alcohol and Drug Abuse Patient Records regulations: The Federal rules restrict any use of the information to criminally investigate or prosecute any alcohol or drug abuse patient.[facility] CenterIn the event this information is protected by the Federal Confidentiality of Alcohol and Drug Abuse Patient Records regulations: The Federal rules restrict any use of the information to criminally investigate or prosecute any alcohol or drug abuse patient.[facility] CenterIn the event this information is protected by the Federal Confidentiality of Alcohol and Drug Abuse Patient Records regulations: The Federal rules restrict any use of the information to criminally investigate or prosecute any alcohol or drug abuse patient.[facility] CenterIn the event this information is protected by the Federal Confidentiality of Alcohol and Drug Abuse Patient Records regulations: The Federal rules restrict any use of the information to criminally investigate or prosecute any alcohol or drug abuse patient.[facility] CenterIn the event this information is protected by the Federal Confidentiality of Alcohol and Drug Abuse Patient Records regulations: The Federal rules restrict any use of the information to criminally investigate or prosecute any alcohol or drug abuse patient.[facility] CenterIn the event this information is protected by the Federal Confidentiality of Alcohol and Drug Abuse Patient Records regulations: The Federal rules restrict any use of the information to criminally investigate or prosecute any alcohol or drug abuse patient.[facility] CenterIn the event this information is protected by the Federal Confidentiality of Alcohol and Drug Abuse Patient Records regulations: The Federal rules restrict any use of the information to criminally investigate or prosecute any alcohol or drug abuse patient.[facility] CenterIn the event this information is protected by the Federal Confidentiality of Alcohol and Drug Abuse Patient Records regulations: The Federal rules restrict any use of the information to criminally investigate or prosecute any alcohol or drug abuse patient.[facility] CenterIn the event this information is protected by the Federal Confidentiality of Alcohol and Drug Abuse Patient Records regulations: The Federal rules restrict any use of the information to criminally investigate or prosecute any alcohol or drug abuse patient.[facility] CenterIn the event this information is protected by the Federal Confidentiality of Alcohol and Drug Abuse Patient Records regulations: The Federal rules restrict any use of the information to criminally investigate or prosecute any alcohol or drug abuse patient.[facility] CenterIn the event this information is protected by the Federal Confidentiality of Alcohol and Drug Abuse Patient Records regulations: The Federal rules restrict any use of the information to criminally investigate or prosecute any alcohol or drug abuse patient.[facility] CenterIn the event this information is protected by the Federal Confidentiality of Alcohol and Drug Abuse Patient Records regulations: The Federal rules restrict any use of the information to criminally investigate or prosecute any alcohol or drug abuse patient.[facility] CenterIn the event this information is protected by the Federal Confidentiality of Alcohol and Drug Abuse Patient Records regulations: The Federal rules restrict any use of the information to criminally investigate or prosecute any alcohol or drug abuse patient.[facility] CenterIn the event this information is protected by the Federal Confidentiality of Alcohol and Drug Abuse Patient Records regulations: The Federal rules restrict any use of the information to criminally investigate or prosecute any alcohol or drug abuse patient.[facility] CenterIn the event this information is protected by the Federal Confidentiality of Alcohol and Drug Abuse Patient Records regulations: The Federal rules restrict any use of the information to criminally investigate or prosecute any alcohol or drug abuse patient.[facility] CenterIn the event this information is protected by the Federal Confidentiality of Alcohol and Drug Abuse Patient Records regulations: The Federal rules restrict any use of the information to criminally investigate or prosecute any alcohol or drug abuse patient.[facility] CenterIn the event this information is protected by the Federal Confidentiality of Alcohol and Drug Abuse Patient Records regulations: The Federal rules restrict any use of the information to criminally investigate or prosecute any alcohol or drug abuse patient.[facility] CenterIn the event this information is protected by the Federal Confidentiality of Alcohol and Drug Abuse Patient Records regulations: The Federal rules restrict any use of the information to criminally investigate or prosecute any alcohol or drug abuse patient.[facility] CenterIn the event this information is protected by the Federal Confidentiality of Alcohol and Drug Abuse Patient Records regulations: The Federal rules restrict any use of the information to criminally investigate or prosecute any alcohol or drug abuse patient.[facility] CenterIn the event this information is protected by the Federal Confidentiality of Alcohol and Drug Abuse Patient Records regulations: The Federal rules restrict any use of the information to criminally investigate or prosecute any alcohol or drug abuse patient.[facility] CenterIn the event this information is protected by the Federal Confidentiality of Alcohol and Drug Abuse Patient Records regulations: The Federal rules restrict any use of the information to criminally investigate or prosecute any alcohol or drug abuse patient.[facility] CenterIn the event this information is protected by the Federal Confidentiality of Alcohol and Drug Abuse Patient Records regulations: The Federal rules restrict any use of the information to criminally investigate or prosecute any alcohol or drug abuse patient.[facility] CenterIn the event this information is protected by the Federal Confidentiality of Alcohol and Drug Abuse Patient Records regulations: The Federal rules restrict any use of the information to criminally investigate or prosecute any alcohol or drug abuse patient.[facility] CenterIn the event this information is protected by the Federal Confidentiality of Alcohol and Drug Abuse Patient Records regulations: The Federal rules restrict any use of the information to criminally investigate or prosecute any alcohol or drug abuse patient.[facility] CenterIn the event this information is protected by the Federal Confidentiality of Alcohol and Drug Abuse Patient Records regulations: The Federal rules restrict any use of the information to criminally investigate or prosecute any alcohol or drug abuse patient.[facility] CenterIn the event this information is protected by the Federal Confidentiality of Alcohol and Drug Abuse Patient Records regulations: The Federal rules restrict any use of the information to criminally investigate or prosecute any alcohol or drug abuse patient.[facility] CenterIn the event this information is protected by the Federal Confidentiality of Alcohol and Drug Abuse Patient Records regulations: The Federal rules restrict any use of the information to criminally investigate or prosecute any alcohol or drug abuse patient.[facility] CenterIn the event this information is protected by the Federal Confidentiality of Alcohol and Drug Abuse Patient Records regulations: The Federal rules restrict any use of the information to criminally investigate or prosecute any alcohol or drug abuse patient.[facility] CenterIn the event this information is protected by the Federal Confidentiality of Alcohol and Drug Abuse Patient Records regulations: The Federal rules restrict any use of the information to criminally investigate or prosecute any alcohol or drug abuse patient.[facility] CenterIn the event this information is protected by the Federal Confidentiality of Alcohol and Drug Abuse Patient Records regulations: The Federal rules restrict any use of the information to criminally investigate or prosecute any alcohol or drug abuse patient.[facility] CenterIn the event this information is protected by the Federal Confidentiality of Alcohol and Drug Abuse Patient Records regulations: The Federal rules restrict any use of the information to criminally investigate or prosecute any alcohol or drug abuse patient.[facility] CenterIn the event this information is protected by the Federal Confidentiality of Alcohol and Drug Abuse Patient Records regulations: The Federal rules restrict any use of the information to criminally investigate or prosecute any alcohol or drug abuse patient.[facility] CenterIn the event this information is protected by the Federal Confidentiality of Alcohol and Drug Abuse Patient Records regulations: The Federal rules restrict any use of the information to criminally investigate or prosecute any alcohol or drug abuse patient.[facility] CenterIn the event this information is protected by the Federal Confidentiality of Alcohol and Drug Abuse Patient Records regulations: The Federal rules restrict any use of the information to criminally investigate or prosecute any alcohol or drug abuse patient.[facility] CenterIn the event this information is protected by the Federal Confidentiality of Alcohol and Drug Abuse Patient Records regulations: The Federal rules restrict any use of the information to criminally investigate or prosecute any alcohol or drug abuse patient.[facility] CenterIn the event this information is protected by the Federal Confidentiality of Alcohol and Drug Abuse Patient Records regulations: The Federal rules restrict any use of the information to criminally investigate or prosecute any alcohol or drug abuse patient.[facility] CenterIn the event this information is protected by the Federal Confidentiality of Alcohol and Drug Abuse Patient Records regulations: The Federal rules restrict any use of the information to criminally investigate or prosecute any alcohol or drug abuse patient.[facility] CenterIn the event this information is protected by the Federal Confidentiality of Alcohol and Drug Abuse Patient Records regulations: The Federal rules restrict any use of the information to criminally investigate or prosecute any alcohol or drug abuse patient.[facility] CenterIn the event this information is protected by the Federal Confidentiality of Alcohol and Drug Abuse Patient Records regulations: The Federal rules restrict any use of the information to criminally investigate or prosecute any alcohol or drug abuse patient.[facility] CenterIn the event this information is protected by the Federal Confidentiality of Alcohol and Drug Abuse Patient Records regulations: The Federal rules restrict any use of the information to criminally investigate or prosecute any alcohol or drug abuse patient.[facility] CenterIn the event this information is protected by the Federal Confidentiality of Alcohol and Drug Abuse Patient Records regulations: The Federal rules restrict any use of the information to criminally investigate or prosecute any alcohol or drug abuse patient.[facility] CenterIn the event this information is protected by the Federal Confidentiality of Alcohol and Drug Abuse Patient Records regulations: The Federal rules restrict any use of the information to criminally investigate or prosecute any alcohol or drug abuse patient.[facility] CenterIn the event this information is protected by the Federal Confidentiality of Alcohol and Drug Abuse Patient Records regulations: The Federal rules restrict any use of the information to criminally investigate or prosecute any alcohol or drug abuse patient.[facility] CenterIn the event this information is protected by the Federal Confidentiality of Alcohol and Drug Abuse Patient Records regulations: The Federal rules restrict any use of the information to criminally investigate or prosecute any alcohol or drug abuse patient.[facility] CenterIn the event this information is protected by the Federal Confidentiality of Alcohol and Drug Abuse Patient Records regulations: The Federal rules restrict any use of the information to criminally investigate or prosecute any alcohol or drug abuse patient.[facility] CenterIn the event this information is protected by the Federal Confidentiality of Alcohol and Drug Abuse Patient Records regulations: The Federal rules restrict any use of the information to criminally investigate or prosecute any alcohol or drug abuse patient.[facility] CenterIn the event this information is protected by the Federal Confidentiality of Alcohol and Drug Abuse Patient Records regulations: The Federal rules restrict any use of the information to criminally investigate or prosecute any alcohol or drug abuse patient.[facility] CenterIn the event this information is protected by the Federal Confidentiality of Alcohol and Drug Abuse Patient Records regulations: The Federal rules restrict any use of the information to criminally investigate or prosecute any alcohol or drug abuse patient.[facility] CenterIn the event this information is protected by the Federal Confidentiality of Alcohol and Drug Abuse Patient Records regulations: The Federal rules restrict any use of the information to criminally investigate or prosecute any alcohol or drug abuse patient.[facility] CenterIn the event this information is protected by the Federal Confidentiality of Alcohol and Drug Abuse Patient Records regulations: The Federal rules restrict any use of the information to criminally investigate or prosecute any alcohol or drug abuse patient.[facility] CenterIn the event this information is protected by the Federal Confidentiality of Alcohol and Drug Abuse Patient Records regulations: The Federal rules restrict any use of the information to criminally investigate or prosecute any alcohol or drug abuse patient.[facility] CenterIn the event this information is protected by the Federal Confidentiality of Alcohol and Drug Abuse Patient Records regulations: The Federal rules restrict any use of the information to criminally investigate or prosecute any alcohol or drug abuse patient.[facility] CenterIn the event this information is protected by the Federal Confidentiality of Alcohol and Drug Abuse Patient Records regulations: The Federal rules restrict any use of the information to criminally investigate or prosecute any alcohol or drug abuse patient.[facility] CenterIn the event this information is protected by the Federal Confidentiality of Alcohol and Drug Abuse Patient Records regulations: The Federal rules restrict any use of the information to criminally investigate or prosecute any alcohol or drug abuse patient.[facility] CenterIn the event this information is protected by the Federal Confidentiality of Alcohol and Drug Abuse Patient Records regulations: The Federal rules restrict any use of the information to criminally investigate or prosecute any alcohol or drug abuse patient.[facility] CenterIn the event this information is protected by the Federal Confidentiality of Alcohol and Drug Abuse Patient Records regulations: The Federal rules restrict any use of the information to criminally investigate or prosecute any alcohol or drug abuse patient.[facility] Reason for Visit (unrecogniz ed section and content) Reason Comments Radiology CT Specialty Diagnoses / Procedures Referred By Ange sheets Referred To Contact CT IMAGING Diagnoses Wheezing Bronchitis Procedures CT CHEST WO IVCON DIAGNOSTIC COMPUTED TOMOGRAPHY THORAX W/O CNTRST Su Ham, HOG TRADER.EARTH BORING MACHINE OPERATOR [address] [place] [address] [place] [id number] Referral ID Status Reason Start Date Expiration Date V isits Requested Visits Authorized [id number] Closed Auto-Generate d Referral 09/25/2022 11/24/2022 1 1 Reason Comments PT Discharge Specialty Diagnoses / Procedures Referred By Ange t Referred To Contact [facility] Diagnoses Neck pain without injury Procedures CONSULT TO PHYSICAL THERAPY PHYSICAL THERAPY EVALUATION HIGH COMPLEX 45 MINS Su Bass, HOG TRADER.EARTH BORING MACHINE OPERATOR [address] [place] [address] [facility] [address] [place] [address] Referral ID Status Reason Start Date Expiration Date Visits Requested Visits Authorized [id number] Authorized Auto-Generat ed Referral 12/09/2021 09/09/2022 30 30 Reason Comments Physical Therapy Reason Comments Employment Physical Specialty Diagnoses / Procedures Referred By Ange t Referred To Contact Family Practice / FAMILY MEDICINE Diagnoses DOT PHYSICAL Procedures OFFICE/OUTPATIENT NEW MODERATE MDM 45-59 MINUTES 4C DOT PHYSICAL Self Lita Ludwig PA-C [address] [place] [address] Referral ID Status Reason Start Date Expiration Date Visits Re quested Visits Authorized [id number] Closed 12/12/2021 09/09/2022 1 1 Reason Onset [...] MYC OFFICE VISIT Pcp, Avni Hoffmann DO [address] [place] [address] Referral ID Status Reason Start Date Expiration Date Visits Re quested Visits Authorized [id number] Closed 05/19/2022 09/09/2022 1 1 Reason Comments Results Reason Comments PT Eval Specialty Diagnoses / Procedures Referred By Ange sheets Referred To Contact Radiology / RADIO CT SCAN [facility] Diagnoses Dx: Localized swelling, mass and lump, neck [R22.1]; Neck pain without injury [M54.2]; Localized enlarged lymph nodes [R59.0] Patient calling to move this up as he got approval [id number] 06/01/2022 - 07/21/[address] SOFT TISSUE NECK W/CONTRAST MATERIAL CT WWO [place]RA[address] [place] [place] [address] [place] [address] [facility] [address] [place] [address] Referral ID Status Reason Start Date Expiration Date Visits Requested Visits Authorized [id number] Waiting for Response Patient Cleared - Admin/Chair [...] Procedures 4C EST Self Avni Salcedo, [address] [place] [id number] Referral ID Status Reason Start Date Expiration Date Visits Re quested Visits Authorized [id number] Closed 10/11/2022 09/09/2023 1 1 Reason Comments Spirometry Specialty Diagnoses / Procedures Referred By Contac t Referred To Contact [facility] Diagnoses Bronchitis Asthma, moderate persistent, well-controlled Sarcoidosis of lung (HCC) Procedures SPIROMETRY - BASELINE AND POST DILATOR BRNCDILAT RSPSE SPMTRY PRE&POST-BRNCDILAT ADMN Su Ham APRN.EARTH BORING MACHINE OPERATOR [address] [place] [address] [facility] [address] [place] [address] Referral ID Status Reason Start Date Expiration Date V isits Requested Visits Authorized [id number] Closed Auto-Generate d Referral 10/02/2022 11/01/2023 1 1 Specialty Diagnoses / Procedures Referred By Contac t Referred To Contact [facility] Diagnoses Bronchitis Asthma, moderate persistent, well-controlled Sarcoidosis of lung (HCC) Procedures LUNG VOLUMES Su Ham APRN.EARTH BORING MACHINE OPERATOR [address] [place] [address] [facility] [address] [place] [address] Referral ID Status Reason Start Date Expiration Date V isits Requested Visits Authorized [id number] Closed Auto-Generate d Referral 10/13/2022 09/09/2023 1 [...] PT MOD MDM 40 MINUTES Self [facility] [place] [place] [address] Referral ID Status Reason Start Date Expiration Date Visits Requested Visits Authorized [id number] Authorized Patient Cleared - Qualified 100% FAS 01/30/2024 04/29/2024 99 99 Reason Comments Consult Screening for colon cancer Specialty Diagnoses / Procedures Referred By Contac t Referred To Contact General Surgery Diagnoses Screening for colon cancer Procedures CONSULT TO GENERAL SURGERY OFFICE/OUTPATIENT NEW [facility] MDM 60 MINUTES Su Ham APRN.CNP [address] [place] [address] Referral ID Status Reason Start Date Expiration Date V isits Requested Visits Authorized [id number] Closed PCP Requested Referral 01/31/2024 01/30/2025 1 1 Reason Onset Date Comments Refill Request 02/20/2024 Reason Comments BP Check Specialty Diagnoses / Procedures Referred By Contac t Referred To Contact [facility] Diagnoses Encounter to establish care Procedures OFFICE/OP CONSLTJ NEW/EST PT MOD MDM 40 [address] [place] [address] Reason Comments Follow Up Review EGD and colon oscopy results. Reason Onset Date Comments Refill Request 04/28/2024 Reason Onset Date Comments Refill Request 06/06/2024 Reason Comments Radiology XR Specialty Diagnoses / Procedures Referred By Contac t Referred To Contact [facility] Diagnoses fatigue, sob, cough, sinus and headache Procedures consult Elsie Johansen, PADeangeloC [address] [place] [address] [facility] [address] [place] [address] Referral ID Status Reason Start Date Expiration Date V isits Requested Visits Authorized [id number] Closed OON/Self Pay Override 09/23/2020 12/22/2020 1 1 Reason Comments Follow Up Reason Comments Radiology CT Specialty Diagnoses / Procedures Referred By Contac t Referred To Contact CT IMAGING Diagnoses Pulmonary nodule Procedures CT CHEST WO IVCON DIAGNOSTIC COMPUTED TOMOGRAPHY THORAX W/O CNTRST Avni Salcedo, DO [address] [place] [address] [place] [address] Referral ID Status Reason Start Date Expiration Date V isits Requested Visits Authorized [id number] Closed Auto-Generat ed Referral Patient Cleared - [...] 10/15/2024 Specialty Diagnoses / Procedures [facility] Diagnoses Asthma-COPD overlap syndrome (HCC) Procedures NITRIC OXIDE, EXHALED NITRIC OXIDE GAS DETERMINATION Shayla Rogers MD [address] [facility] [place] [address] Phone: tel: fax: [facility] [address] [place] [address] Referral ID Status Reason Start Date Expiration Date V isits Requested Visits Authorized [id number] Closed Auto-Generate d Referral 10/09/2024 11/08/2025 1 1 Specialty Diagnoses / Procedures Referred By Contac t Referred To Contact [facility] Diagnoses Asthma-COPD overlap syndrome (HCC) Procedures SPIROMETRY - BASELINE AND POST DILATOR BRNCDILAT RSPSE SPMTRY PRE&POST-BRNCDILAT ADMShayla Perez MD [address] [place] [address] Phone: tel: fax: [facility] [address] [place] [address] Referral ID Status Reason Start Date Expiration Date V isits Requested Visits Authorized [id number] Closed Auto-Generate d Referral 10/09/2024 11/08/2025 1 1 Reason Comments Established Patient 3 month follow up as thma Reason Comments 6 Month Exam Reason Comments Abdominal Pain Left side pain Reason Onset Date Comments Results 01/12/2025 Reason Onset Date Comments Results 01/13/2025 Care Teams (unrecognized sec tion and content) Estimator Printing Plate Making Relationship Specialty Start Date End Date Avni Salcedo DO [address] [facility] [place] [address] PCP - General Family Practice 09/22/13 Estimator Printing Plate Making Relationship Specialty Start Date End Date Avni Salcedo DO [address] [facility] [address] PCP - General Family Practice 09/22/13 Estimator Printing Plate Making Relationship Specialty Start Date End Date Avni Salcedo DO [address] [facility] [address] PCP - General Family Practice 09/22/13 Estimator Printing Plate Making Relationship Specialty Start Date End Date Avni Salcedo DO [address] [place] [address] PCP - General Family Practice 09/22/13 Estimator Printing Plate Making Relationship Specialty Start Date End Date Avni Salcedo DO [address] [facility] [address] PCP - General Family Practice 09/22/13 Estimator Printing Plate Making Relationship Specialty Start Date End Date Avni Salcedo DO [address] [facility] [address] PCP - General Family Practice 09/22/13 Estimator Printing Plate Making Relationship Specialty Start Date End Date Avni Salcedo, DO [address] [place] [address] PCP - General Family Practice 09/22/13 Estimator Printing Plate Making Relationship Specialty Start Date End Date Avni Salcedo, DO [address] [place] [address] PCP - General Family Practice 09/22/13 Estimator Printing Plate Making Relationship Specialty Start Date End Date Avni Salcedo, DO [address] [place] [address] PCP - General Family Practice 09/22/13 Estimator Printing Plate Making Relationship Specialty Start Date End Date Avni Salcedo, DO [address] [place] [address] PCP - General Family Practice 09/22/13 Estimator Printing Plate Making Relationship Specialty Start Date End Date Avni Salcedo, DO [address] [place] [address] PCP - General Family Practice 09/22/13 Estimator Printing Plate Making Relationship Specialty Start Date End Date Avni Salcedo, DO [address] [place] [address] PCP - General Family Practice 09/22/13 Estimator Printing Plate Making Relationship Specialty Start Date End Date Avni Salcedo, DO [address] [place] [address] PCP - General Family Medicine 09/22/13 Estimator Printing Plate Making Relationship Specialty Start Date End Date Avni Salcedo, DO [address] [place] [address] PCP - General Family Medicine 09/22/13 Estimator Printing Plate Making Relationship Specialty Start Date End Date Avni Salcedo, DO [address] [place] [address] PCP - General Family Medicine 09/22/13 Estimator Printing Plate Making Relationship Specialty Start Date End Date Avni Salcedo, DO [address] [place] [address] PCP - General Family Medicine 09/22/13 Estimator Printing Plate Making Relationship Specialty Start Date End Date Avni Salcedo, DO [address] [place] [address] PCP - General Family Medicine 09/22/13 Estimator Printing Plate Making Relationship Specialty Start Date End Date Avni Salcedo, DO [address] [place] [address] PCP - General Family Medicine 09/22/13 Estimator Printing Plate Making Relationship Specialty Start Date End Date Avni Salcedo, DO [address] [place] [address] PCP - General Family Medicine 09/22/13 Estimator Printing Plate Making Relationship Specialty Start Date End Date Avni Salcedo, DO [address] [place] [address] PCP - General Family Medicine 09/22/13 Estimator Printing Plate Making Relationship Specialty Start Date End Date Avni Salcedo, DO [address] [place] [address] PCP - General Family Medicine 09/22/13 Estimator Printing Plate Making Relationship Specialty Start Date End Date Avni Salcedo, DO [address] [place] [address] PCP - General Family Medicine 09/22/13 Estimator Printing Plate Making Relationship Specialty Start Date End Date Avni Salcedo, DO [address] [place] [address] PCP - General Family Medicine 09/22/13 Estimator Printing Plate Making Relationship Specialty Start Date End Date Avni Salcedo, DO [address] [place] [address] PCP - General Family Medicine 09/22/13 Estimator Printing Plate Making Relationship Specialty Start Date End Date Avni Salcedo, DO [address] [place] [address] PCP - General Family Medicine 09/22/13 Estimator Printing Plate Making Relationship Specialty Start Date End Date Avni Salcedo, DO [address] [place] [address] PCP - General Family Medicine 09/22/13 Estimator Printing Plate Making Relationship Specialty Start Date End Date Avni Salcedo, DO [address] [place] [address] PCP - General Family Medicine 09/22/13 Estimator Printing Plate Making Relationship Specialty Start Date End Date Avni Salcedo, DO [address] [place] [address] PCP - General Family Medicine 09/22/13 Estimator Printing Plate Making Relationship Specialty Start Date End Date Avni Salcedo, DO [address] [place] [address] PCP - General Family Medicine 09/22/13 Estimator Printing Plate Making Relationship Specialty Start Date End Date Avni Salcedo, DO [address] [place] [address] PCP - General Family Medicine 09/22/13 Estimator Printing Plate Making Relationship Specialty Start Date End Date Avni Salcedo, DO [address] [place] [address] PCP - General Family Medicine 09/22/13 Estimator Printing Plate Making Relationship Specialty Start Date End Date Avni Salcedo, DO [address] [place] [address] PCP - General Family Medicine 09/22/13 Estimator Printing Plate Making Relationship Specialty Start Date End Date Avni Salcedo, DO [address] [place] [address] PCP - General Family Medicine 09/22/13 Estimator Printing Plate Making Relationship Specialty Start Date End Date Avni Salcedo, DO [address] [facility] [address] PCP - General Family Medicine 09/22/13 Estimator Printing Plate Making Relationship Specialty Start Date End Date Avni Salcedo DO [address] [facility] [address] PCP - General Family Medicine 09/22/13 Estimator Printing Plate Making Relationship Specialty Start Date End Date Avni Salcedo DO [address] [facility] [address] PCP - General Family Medicine 09/22/13 Team [...] Dr. Rah Queen MD Emergency Provider Active Estimator Printing Plate Making Relationship Specialty Start Date End Date Avni Salcedo DO [address] [facility] [address] PCP - General Family Medicine 09/22/13 Estimator Printing Plate Making Relationship Specialty Start Date End Date Avni Salcedo DO [address] [facility] [address] PCP - General Family Medicine 09/22/13 Estimator Printing Plate Making Relationship Specialty Start Date End Date Avni Salcedo DO [address] [facility] [address] PCP - General Family Medicine 09/22/13 Estimator Printing Plate Making Relationship Specialty Start Date End Date Avni Salcedo, [address] [place] [address] PCP - General Family Medicine 09/22/13 Estimator Printing Plate Making Relationship Specialty Start Date End Date Avni Salcedo, [address] [place] [address] PCP - General Family Medicine 09/22/13 Estimator Printing Plate Making Relationship Specialty Start Date End Date Avni Salcedo DO [address] [place] [address] PCP - General Family Medicine 09/22/13 Estimator Printing Plate Making Relationship Specialty Start Date End Date Avni Salcedo, [address] [place] [address] PCP - General Family Medicine 09/22/13 Estimator Printing Plate Making Relationship Specialty Start Date End Date Avni Salcedo DO [address] [place] [address] PCP - General Family Medicine 09/22/13 Estimator Printing Plate Making Relationship Specialty Start Date End Date Avni Salcedo, [address] [place] [address] PCP - General Family Medicine 09/22/13 Estimator Printing Plate Making Relationship Specialty Start Date End Date Avni Salcedo DO [address] [place] [address] PCP - General Family Medicine 09/22/13 Estimator Printing Plate Making Relationship Specialty Start Date End Date Avni Salcedo, [address] [place] [address] PCP - General Family Medicine 09/22/13 Estimator Printing Plate Making Relationship Specialty Start Date End Date Avni Salcedo DO [address] [place] [address] PCP - General Family Medicine 09/22/13 Estimator Printing Plate Making Relationship Specialty Start Date End Date Avni Salcedo DO [address] [place] [address] PCP - General Family Medicine 09/22/13 Estimator Printing Plate Making Relationship Specialty Start Date End Date Avin Salcedo DO [address] [place] [address] PCP - General Family Medicine 09/22/13 Estimator Printing Plate Making Relationship Specialty Start Date End Date Avni Salcedo DO [address] [place] [address] PCP - General Family Medicine 09/22/13 Estimator Printing Plate Making Relationship Specialty Start Date End Date Avni Salcedo DO [address] [place] [address] PCP - General Family Medicine 09/22/13 Estimator Printing Plate Making Relationship Specialty Start Date End Date Avni Salcedo DO [address] [place] [address] PCP - General Family Medicine 09/22/13 Estimator Printing Plate Making Relationship Specialty Start Date End Date Avni Salcedo DO [address] [place] [address] PCP - General Family Medicine 09/22/13 Estimator Printing Plate Making Relationship Specialty Start Date End Date Avni Salcedo DO [address] [place] [address] PCP - General Family Medicine 09/22/13 Estimator Printing Plate Making Relationship Specialty Start Date End Date Avni Salcedo DO [address] [place] [address] PCP - General Family Medicine 09/22/13 Estimator Printing Plate Making Relationship Specialty Start Date End Date Avni Salcedo DO [address] [place] [address] PCP - General Family Medicine 09/22/13 Estimator Printing Plate Making Relationship Specialty Start Date End Date Avni Sacledo DO [address] [place] [address] PCP - General Family Medicine 09/22/13 Estimator Printing Plate Making Relationship Specialty Start Date End Date Avni Salcedo DO [address] [place] [address] PCP - General Family Medicine 09/22/13 Estimator Printing Plate Making Relationship Specialty Start Date End Date Avni Salcedo DO [address] [place] [address] PCP - General Family Medicine 09/22/13 Estimator Printing Plate Making Relationship Specialty Start Date End Date Avni Salcedo DO [address] [place] [address] PCP - General Family Medicine 09/22/13 Estimator Printing Plate Making Relationship Specialty Start Date End Date Avni Salcedo DO [address] [place] [address] PCP - General Family Medicine 09/22/13 Estimator Printing Plate Making Relationship Specialty Start Date End Date Avni Salcedo DO [address] [facility] [address] PCP - General Family Medicine 09/22/13 Estimator Printing Plate Making Relationship Specialty Start Date End Date Avni Salcedo DO [address] [place] [address] PCP - General Family Medicine 09/22/13 Estimator Printing Plate Making Relationship Specialty Start Date End Date Avni Salcedo DO [address] [facility] [address] PCP - General Family Medicine 09/22/13 Estimator Printing Plate Making Relationship Specialty Start Date End Date Avni Salcedo DO [address] [facility] [place] [address] PCP - General Family Medicine 09/22/13 Estimator Printing Plate Making Relationship Specialty Start Date End Date Avni Salcedo DO [address] [facility] [address] PCP - General Family Medicine 09/22/13 Estimator Printing Plate Making Relationship Specialty Start Date End Date Avni Salcedo DO [address] [facility] [address] PCP - General Family Medicine 09/22/13 Su Ham, HOG TRADER.EARTH BORING MACHINE OPERATOR [address] [facility] [address] Family Day Care Provider Family Medicine 08/17/24 Catalina Almazan APRN.EARTH BORING MACHINE OPERATOR [address] [facility] [address] Family Day Care Provider Family Medicine 08/17/24 Estimator Printing Plate Making Relationship Specialty Start Date End Date Avni Salcedo DO [address] [place] [address] PCP - General Family Medicine 09/22/13 Su Ham, HOG TRADER.EARTH BORING MACHINE OPERATOR [address] [place] [address] Family Day Care Provider Family Medicine 08/17/24 Catalina Almazan, HOG TRADER.EARTH BORING MACHINE OPERATOR [address] [place] [address] Family Day Care Provider Family Medicine 08/17/24 Estimator Printing Plate Making Relationship Specialty Start Date End Date Avni Salcedo DO [address] [place] [address] PCP - General Family Medicine 09/22/13 Su Ham, HOG TRADER.EARTH BORING MACHINE OPERATOR [address] [place] [address] Family Day Care Provider Family Medicine 08/17/24 Catalina Almazan, HOG TRADER.EARTH BORING MACHINE OPERATOR [address] [place] [address] Family Day Care Provider Family [facility] 08/17/24 Estimator Printing Plate Making Relationship Specialty Start Date End Date Avni Salcedo DO [address] [place] [address] PCP - General Family Medicine 09/22/13 Su Ham, HOG TRADER.EARTH BORING MACHINE OPERATOR [address] [place] [address] Family Day Care Provider Family Medicine 08/17/24 Catalina Almazan, HOG TRADER.EARTH BORING MACHINE OPERATOR [address] [place] [address] Family Day Care Provider Family Medicine 08/17/24 Estimator Printing Plate Making Relationship Specialty Start Date End Date Avni Salcedo DO [address] [place] [address] PCP - General Family Medicine 09/22/13 Su Ham, HOG TRADER.EARTH BORING MACHINE OPERATOR [address] [facility] [place] [address] Family Day Care Provider Family Medicine 08/17/24 Catalina Almazan, HOG TRADER.EARTH BORING MACHINE OPERATOR [address] [facility] [place] [address] Family Day Care Provider Family Medicine 08/17/24 Estimator Printing Plate Making Relationship Specialty Start Date End Date Avni Salcedo DO [address] [facility] [place] [address] PCP - General Family Medicine 09/22/13 Su Ham, HOG TRADER.EARTH BORING MACHINE OPERATOR [address] [facility] [place] [address] Family Day Care Provider Family Medicine 08/17/24 Catalina Almazan, HOG TRADER.EARTH BORING MACHINE OPERATOR [address] [facility] [place] [address] Family Day Care Provider Family Medicine 08/17/24 Estimator Printing Plate Making Relationship Specialty Start Date End Date Avni Salcedo DO [address] [facility] [place] [address] PCP - General Family Medicine 09/22/13 Catalina Almazan, HOG TRADER.EARTH BORING MACHINE OPERATOR [address] [facility] [place] [address] Family Day Care Provider Family Medicine 08/17/24 Estimator Printing Plate Making Relationship Specialty Start Date End Date Avni Salcedo DO [address] [place] [address] PCP - General Family Medicine 09/22/13 [facility] HOG TRADER.EARTH BORING MACHINE OPERATOR [address] [place] [address] [facility]24 Estimator Printing Plate Making Relationship Specialty Start Date End Date Avni Salcedo DO [address] [place] [address] PCP - General Family Medicine 09/22/13 [facility], HOG TRADER.EARTH BORING MACHINE OPERATOR [address] [place] [address] [facility] 08/17/24 Estimator Printing Plate Making Relationship Specialty Start Date End Date Avni Salcedo DO [address] [place] [address] PCP - General Family Medicine 09/22/13 [facility], HOG TRADER.EARTH BORING MACHINE OPERATOR [address] [place] [address] [facility] 08/17/24 Estimator Printing Plate Making Relationship Specialty Start Date End Date Avni Salcedo DO [address] [place] [address] PCP - General Family Medicine 09/22/13 [facility], HOG TRADER.EARTH BORING MACHINE OPERATOR [address] [place] [address] [facility] 08/17/24 Estimator Printing Plate Making Relationship Specialty Start Date End Date Avni Salcedo DO [address] [facility] [place] [place] [address] PCP - General Family Medicine 09/22/13 [facility], HOG TRADER.EARTH BORING MACHINE OPERATOR [address] [facility] [place] [address] Family Day Care Provider Family [facility] 08/17/24 Estimator Printing Plate Making Relationship Specialty Start Date End Date Avni Salcedo DO [address] [facility] [place] [address] PCP - General Family Medicine 09/22/13 ThaCatalina, HOG TRADER.EARTH BORING MACHINE OPERATOR [address] [place] [address] [facility] 08/17/24 Estimator Printing Plate Making Relationship Specialty Start Date End Date Avni Salcedo DO [address] [facility] [place] [place] [address] PCP - General Family Medicine 09/22/13 ThaCatalina, HOG TRADER.EARTH BORING MACHINE OPERATOR [address] [place] [address] [facility] 08/17/24 Estimator Printing Plate Making Relationship Specialty Start Date End Date Avni Salcedo DO [address] [facility] [address] PCP - General Family Medicine 09/22/13 ThaCatalina, HOG TRADER.EARTH BORING MACHINE OPERATOR [address] [facility] [place] [address] Family Day Care Provider Family [facility] 08/17/24 Estimator Printing Plate Making Relationship Specialty Start Date End Date Avni Salcedo DO [address] [place], [place] [address] PCP - General [facility] 09/22/13 Catalina Almazan, HOG TRADER.EARTH BORING MACHINE OPERATOR [address] [place], [place] [address] [facility] 08/17/24 Estimator Printing Plate Making Relationship Specialty Start Date End Date Avni Salcedo DO [address] [place], [place] [address] PCP - [facility] 09/22/13 Catalina Almazan, HOG TRADER.EARTH BORING MACHINE OPERATOR [address] [place], [place] [address] [facility] 08/17/24 Team Status: Active Member Role Status Dates Dr. Avni Salcedo DO Primary Care Provider Active Team Status: Inactive Member Role Status Dates Dr. Avni Salcedo DO Primary Care Provider Active Start: January 02, 2025 End: January 02, 2025 DOLL WIG MAKER. Pepper Sharma Attending Provider Active Star t: January 02, 2025 End: January 02, 2025 DOLL WIG MAKER. Pepper Sharma Referring Provider Active Star t: January 02, 2025 End: January 02, 2025 Team Status: Active Member Role Status Dates Dr. Avni Salcedo DO Primary Care Provider Active Start: February 21, 2025 Dr. Eduardo Hernandez MD Emergency Provider Active S tart: February 21, 2025 Dr. Bandar Pastor DO Admit Provider Active S tart: [...] BE BASED ON THE PRIMARY CLINICAL RECORDS. [employer] [facility] provides no warranty or guarantee of the accuracy or completeness of information in this document.
[2025-02-21 16:28] LABS: Troponin T High Sens 4 HR 7 ng/L (<=22)
--- NOTE | 2025-02-21 18:04 | PCM.HP.STD ---
HPI - General General Date of Admission: 02/21/25 Date of Service: 02/21/25 Chief Complaint: Chest pain, lightheadedness HPI Narrative JARON PANTOJA, is a 49 M who presents to the emergency room at [facility] with complaints of chest pain which he described as pressure-like in nature along with periods of lightheadedness when he stands up suddenly from a squatting position. Patient states that these symptoms have been going on for the last 3 days, he states that the chest pain is usually brought on by exertion. Patient has no previous history of coronary artery disease. 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 Workup in the emergency room included an EKG which showed a sinus tachycardia at 108 bpm no evidence of ischemic changes or previous infarction. Patient's troponin was negative x 2, patient's chemistry profile was remarkable for a creatinine of 1.47 and a BUN of 25, CBC was unremarkable. Chest x-ray showed left lower lobe subsegmental atelectasis. Patient will be placed into observation status on PCU, 1 additional troponin will be drawn. Patient will be scheduled for a nuclear stress test on 02/23/2025. [facility] Medical History Chronic neck and back pain Asthma Severe headache Hay fever Hemorrhoids Lung disease SOB (shortness of breath) Sarcoidosis HTN (hypertension) Laceration of left ring finger Home Medications ?Medication ?Instructions ?Recorded ?Last Taken ?Type cyclobenzaprine 10 mg tablet 10 mg PO TID 04/12/15 02/21/25 History ipratropium 20 mcg-albuterol 100 1 puff inhalation DAILY 04/12/15 02/20/25 History mcg/actuation mist for inhalation (Combivent Respimat) omeprazole 20 mg capsule,delayed 20 mg PO DAILY 04/12/15 02/21/25 History release fexofenadine 180 mg tablet 180 mg PO DAILY 11/30/16 02/20/25 History (Tonya Allergy) atorvastatin 40 mg tablet 40 mg PO QHS 12/27/16 02/20/25 History montelukast 10 mg tablet 10 mg PO QHS 03/21/21 02/20/25 History albuterol sulfate 2.5 mg/3 mL 2.5 mg inhalation DAILY PRN 11/02/22 02/20/25 History (0.083 %) solution for nebulization shortness of breath or wheezing cholecalciferol (vitamin D3) 125 5,000 unit PO DAILY 11/02/22 02/21/25 History mcg (5,000 unit) capsule lisinopril 20 mg tablet 20 mg PO DAILY 11/02/22 02/21/25 History promethazine 25 mg tablet 25 mg PO DAILY PRN allergy symptoms 11/02/22 02/20/25 History rizatriptan 10 mg disintegrating 10 mg translingual DAILY PRN 11/02/22 Unknown History tablet migraine headache atorvastatin 20 mg tablet 20 mg PO QHS 02/21/25 02/20/25 History hydrocodone 7.5 mg-ibuprofen 200 1 - 4 tab PO TID PRN pain 02/21/25 02/21/25 History mg tablet potassium chloride 1 tab PO DAILY 02/21/25 02/21/25 History umeclidinium 62.5 mcg-vilanterol 1 inh inhalation DAILY 02/21/25 Unknown History 25 mcg/actuation powdr for inhalation (Anoro Ellipta) Allergy/AdvReac Type Severity Reaction Status Date / Time atomoxetine Allergy mental Verified 02/21/25 10:04 status change duloxetine Allergy unknown Verified 02/21/25 10:04 gabapentin Allergy mental Verified 02/21/25 10:04 status change tetanus immune globulin Allergy deltoid Verified 02/21/25 10:04 swelling/tender at 15yo; requested Tdap update today codeine AdvReac Nausea Verified 02/21/25 10:04 fluticasone propionate (From AdvReac MIGRAINE Verified 02/21/25 10:04 Flonase) Social History Smoking Status: Former smoker alcohol intake: never ROS Constitutional Constitutional: Denies anorexia, change in weight, fever(s), night sweats or weakness Eyes Eyes: Denies blurry vision, change in vision, discharge from eye(s) or eye pain Cardiovascular Cardiovascular: Reports chest pain and lightheadedness; Denies claudication, edema or palpitations Respiratory/Chest Respiratory/Chest: Denies cough, dyspnea, hemoptysis, shortness of breath at rest or shortness of breath with exertion Gastrointestinal Gastrointestinal: Denies abdominal pain, constipation, diarrhea, hematemesis, hematochezia, melena, nausea or vomiting Genitourinary Genitourinary: Denies dysuria, hematuria, urinary frequency, urinary hesitancy, urinary incontinence or urinary urgency Musculoskeletal Musculoskeletal: Denies back pain, joint pain, joint stiffness, joint swelling, myalgias or neck pain Neurologic Neurologic: Denies abnormal gait, abnormal speech, dizziness, focal weakness, headache(s), loss of vision, numbness, other visual disturbances, paresthesias, syncope or tingling Psychiatric Psychiatric: Denies anxiety, cognitive impairment, depression, irritability, mood swings or suicidal ideation Endocrine Endocrinology: Denies change in body appearance, cold intolerance, excessive sweating, heat intolerance, polydipsia or polyuria Hematologic/Lymphatic Hematologic/Lymphatic: Denies none, anemia, easy bleeding, easy bruising or lymphadenopathy Allergic/Immunologic Allergic/Immunologic: Denies rhinitis, urticaria, eczemia or asthma Vital Signs Vital Signs Vital Signs: 02/21/25 10:04 02/21/25 10:04 02/21/25 10:53 Temperature 97.1 F L Temperature Source Temporal Pulse Rate 113 H 115 H Respiratory Rate 14 Respiratory Effort Normal Non-Labored Blood Pressure 130/86 H Blood Pressure Mean 100 Pulse Ox 98 Oxygen Delivery Method Room Air 02/21/25 10:57 02/21/25 12:04 02/21/25 13:31 Temperature Temperature Source Pulse Rate 107 H 107 H Respiratory Rate 14 13 Respiratory Effort Blood Pressure 125/85 H 117/74 Blood Pressure Mean 98 88 Pulse Ox 96 97 Oxygen Delivery Method Room Air Room Air 02/21/25 14:36 02/21/25 16:42 02/21/25 16:48 Temperature 98.6 F 96.9 F L Temperature Source Temporal Pulse Rate 111 H 109 H Respiratory Rate 12 18 Respiratory Effort Blood Pressure 117/101 H 135/103 H Blood Pressure Mean 106 113 Pulse Ox 99 99 Oxygen Delivery Method Room Air Room Air Weight Weight: 73.457 kg Body Mass Index (BMI) 26.1 Physical Exam Const alert, oriented x3 and no apparent distress General Appearance: cooperative, well kempt and well developed Orientation / Consciousness: awake, oriented to person, oriented to place and oriented to time HEENT normocephalic, head/scalp atraumatic, hearing grossly normal bilaterally and moist oral mucous membranes Eyes PERRL, EOMs intact bilaterally and conjunctivae normal Neck supple, no JVD, thyroid normal and no carotid bruits General: trachea midline Resp normal respiratory effort, no retractions, no use of accessory muscles and clear to auscultation bilaterally Auscultation: Negative for rales, rhonchi or wheezes Cardio regular rate, regular rhythm, S1 normal heart sound, S2 normal heart sound, no murmurs, no rub and no gallops GI normal to inspection, nondistended, normoactive bowel sounds, soft to palpation, non-tender and non-distended Extremity no clubbing, cyanosis or edema Skin no rashes or lesions noted General Skin Exam: no breakdown Neuro oriented x3, CN's II-XII intact bilaterally, moves all extremities, no focal motor deficits and no sensory deficits noted Sensorium / Orientation: awake and alert Speech: speech normal Psych affect normal Results Lab / Micro Data 02/21/25 10:28 02/21/25 10:28 Labs: Laboratory Results - last 24 hr 02/21/25 10:28: WBC 7.2, RBC 4.67, Hgb 14.5, Hct 41.6, MCV 89.1, MCH 31.0, MCHC 34.9, RDW Std Deviation 41.1, RDW Coeff of Dione 12.6, Plt Count 210, MPV 10.0, Immature Gran % (Auto) 0.700, Neut % (Auto) 62.2, Lymph % (Auto) 24.0, Dane % (Auto) 9.6, Eos % (Auto) 2.8, Baso % (Auto) 0.7, Absolute Neuts (auto) 4.5, Absolute Lymphs (auto) 1.72, Nucleated RBC % 0, Sodium 135, Potassium 4.7, Chloride 98, Carbon Dioxide 21.9, Anion Gap 14, BUN 25 H, Creatinine 1.47 H, Estim Creat Clear Calc 53.65, Est GFR (MDRD) Non-Af 57 L, BUN/Creatinine Ratio 17.2, Glucose 128 H, Calcium 10.3, Troponin T High Sens 9, Triglycerides 202 H, Cholesterol 207 H, LDL Cholesterol, Calc 97, VLDL Cholesterol 40, HDL Cholesterol 69, Cholesterol/HDL Ratio 2.99 02/21/25 12:28: Troponin T Hi Sens 2 Hr 7 02/21/25 15:35: Troponin T Hi Sens 4Hr 7 Rhythm Strip Rhythm Strip: Sinus Tach Rate: 108 Ectopy: None Imaging Radiology Impression Chest X-Ray 02/21/25 10:57 IMPRESSION: Left lower lobe subsegmental atelectasis. No definite focal consolidations. Reading Location: [facility] Assessment & Plan Assessment/Plan (1) Chest pain, exertional: PLAN: Plan 1. Chest pain-etiology unclear, patient was placed in observation status on PCU, he will undergo resting nuclear stress test on 02/23/2025, patient states that he has asthma and he is not sure he can complete an exercise stress test. Patient will be monitored, he was placed on aspirin 81 mg a day and a statin. #2 lightheadedness-probably secondary to orthostatic hypotension from patient's blood pressure medications, patient will be observed for further episodes #3 essential hypertension-patient will remain on his present medications #4 hyperlipidemia-patient is on atorvastatin #5 elevated creatinine-BMP will be repeated tomorrow Total clinical time spent by myself addressing the patient's medical issues, reviewing all of his data, and collaborating with patient's care team: 55 minutes Charges/Coding Visit Charges Inpatient E&M: 95586 Init Hosp L2
[2025-02-21] MEDS: Budesonide Respules 0.5 MG/2 ML AMPUL.NEB. INHALATION (19:54)
[2025-02-21] MEDS: Ipratropium/Albuterol Sulfate 3 ML AMPUL.NEB INHALATION (19:54)
[2025-02-21] MEDS: Atorvastatin Calcium 80 MG Tablet PO (20:35)
[2025-02-21] MEDS: HYDROcodone Bitartrate/Apap 5/325 Tablet PO (20:35)
[2025-02-21] MEDS: Ibuprofen 400 MG Tablet PO (20:35)
[2025-02-21] MEDS: cycloBENZAPRine HCl 10 MG Tablet PO (20:36)
[2025-02-22] VITALS (9 sets, daily range): BP systolic 123–155; BP diastolic 83–94; PULSE 96–115; RESP 18–22; TEMP 2.6–36.7; O2SAT 98–100
[2025-02-22] MEDS: HYDROcodone Bitartrate/Apap 5/325 Tablet PO ×4 (02:40→22:46)
[2025-02-22] MEDS: Ibuprofen 400 MG Tablet PO ×4 (02:40→22:46)
[2025-02-22] MEDS: cycloBENZAPRine HCl 10 MG Tablet PO ×3 (05:57→22:46)
[2025-02-22] MEDS: Ipratropium/Albuterol Sulfate 3 ML AMPUL.NEB INHALATION ×2 (07:40→20:59)
[2025-02-22] MEDS: Pantoprazole Sodium 20 MG Tablet PO (09:38)
[2025-02-22] MEDS: Aspirin E.C. 81 MG Tablet PO (09:38)
[2025-02-22] MEDS: Enoxaparin 40 MG/0.4 ML Syringe SC (09:38)
[2025-02-22] MEDS: Lisinopril 20 MG Tablet PO (09:39)
--- NOTE | 2025-02-22 12:31 | PCM.PN.HOSP ---
Reason for Visit Reason for Visit: Diagnoses Chest pain, unspecified (02/21/25) Subjective Subjective Patient was seen and examined today, patient complains of sinus drainage and feels he has a sinus infection. I have elected to place him on Augmentin at this time. Patient will undergo a resting pharmacological nuclear stress test tomorrow. Patient has no further complaints of chest pain at this time Objective Data Objective Data Vital Signs: Vital Signs Temp Pulse Resp BP Pulse Ox O2 Del Method 96.6 F L 108 H 18 130/92 H 100 Room Air 02/22/25 09:41 02/22/25 09:42 02/22/25 09:41 02/22/25 09:41 02/22/25 09:41 02/22/25 09:41 Oxygen Delivery Method Room Air Weight: 73.457 kg Body Mass Index (BMI) 26.1 Intake & Output: Intake and Output for Last 24 Hours 02/20/25 02/21/25 02/22/25 23:59 23:59 23:59 Intake Total 600 / 600 Balance 600 / 600 Lab / Micro Data 02/21/25 10:28 02/21/25 10:28 Labs: Laboratory Results - last 24 hr 02/21/25 10:28: Triglycerides 202 H, Cholesterol 207 H, LDL Cholesterol, Calc 97, VLDL Cholesterol 40, HDL Cholesterol 69, Cholesterol/HDL Ratio 2.99 02/21/25 12:28: Troponin T Hi Sens 2 Hr 7 02/21/25 15:35: Troponin T Hi Sens 4Hr 7 Rhythm Strip Rhythm Strip: Sinus Tach Rate: 108 Ectopy: None Physical Exam Narrative alert, oriented x3 and no apparent distress General Appearance: cooperative, well kempt and well developed Orientation / Consciousness: awake, oriented to person, oriented to place and oriented to time HEENT normocephalic, head/scalp atraumatic, hearing grossly normal bilaterally and moist oral mucous membranes Eyes PERRL, EOMs intact bilaterally and conjunctivae normal Neck supple, no JVD, thyroid normal and no carotid bruits General: trachea midline Resp normal respiratory effort, no retractions, no use of accessory muscles and clear to auscultation bilaterally Auscultation: Negative for rales, rhonchi or wheezes Cardio regular rate, regular rhythm, S1 normal heart sound, S2 normal heart sound, no murmurs, no rub and no gallops GI normal to inspection, nondistended, normoactive bowel sounds, soft to palpation, non-tender and non-distended Extremity no clubbing, cyanosis or edema Skin no rashes or lesions noted General Skin Exam: no breakdown Neuro oriented x3, CN's II-XII intact bilaterally, moves all extremities, no focal motor deficits and no sensory deficits noted Sensorium / Orientation: awake and alert Speech: speech normal Psych affect normal Assessment & Plan Assessment/Plan (1) Chest pain, exertional: PLAN: Plan 1. Chest pain-etiology unclear, patient will undergo a pharmacological nuclear stress test tomorrow, he remains on a statin and aspirin at this time #2 lightheadedness-probably secondary to orthostatic hypotension from patient's blood pressure medications, patient will be observed for further episodes, patient does not complain of any further episodes at this time #3 essential hypertension-patient will remain on his present medications #4 hyperlipidemia-patient is on atorvastatin #5 elevated creatinine-BMP will be repeated tomorrow Total clinical time spent by myself addressing the patient's medical issues, reviewing all of his data, and collaborating with patient's care team: 35 minutes Charges/Coding Visit Charges Inpatient E&M: 53537 Subs Hosp L2
[2025-02-22] MEDS: Amox/Clavulanate 875 MG Tablet PO (17:12)
--- NOTE | 2025-02-22 19:00 | EKG12_ITS ---
Test Reason : CP Blood Pressure : */* mmHG Vent. Rate : 108 BPM Atrial Rate : 108 BPM P-R Int : 154 ms QRS Dur : 88 ms QT Int : 326 ms P-R-T Axes : 57 14 48 degrees QTcB Int : 436 ms Sinus tachycardia Otherwise normal ECG No previous ECGs available Confirmed by ASAD MELGOZA, WHITNEY ([id number]), map editor SONIA SALEH ([id number]) on 02/24/2025 8:26:28 AM Referred By: Confirmed By: WHITNEY KAMARA MD
--- NOTE | 2025-02-22 19:12 | EKG12_ITS ---
Test Reason : cp Blood Pressure : */* mmHG Vent. Rate : 107 BPM Atrial Rate : 107 BPM P-R Int : 156 ms QRS Dur : 86 ms QT Int : 324 ms P-R-T Axes : 60 22 48 degrees QTcB Int : 432 ms Sinus tachycardia Otherwise normal ECG When compared with ECG of 21-Feb-2025 10:14, MANUAL COMPARISON REQUIRED DATA IS UNCONFIRMED Confirmed by ASAD MELGOZA, WHITNEY ([id number]), research editor SONIA SALEH ([id number]) on 02/24/2025 8:28:52 AM Referred By: Confirmed By: WHITNEY KAMARA MD
[2025-02-22] MEDS: Nitroglycerin Oint 1 INCH PACKET TD (21:28)
[2025-02-22] MEDS: Atorvastatin Calcium 80 MG Tablet PO (22:48)
[2025-02-23 03:00] VITALS: PULSE 99
[2025-02-23 04:00] VITALS: BP 133/91; PULSE 105; RESP 17; TEMP 36.7; O2SAT 98
--- NOTE | 2025-02-23 05:55 | EKG12_ITS ---
Test Reason : STRESS Blood Pressure : */* mmHG Vent. Rate : 98 BPM Atrial Rate : 98 BPM P-R Int : 158 ms QRS Dur : 90 ms QT Int : 344 ms P-R-T Axes : 51 9 41 degrees QTcB Int : 439 ms Normal sinus rhythm Normal ECG When compared with ECG of 22-Feb-2025 19:12, MANUAL COMPARISON REQUIRED DATA IS UNCONFIRMED Confirmed by ASAD MELGOZA, WHITNEY ([id number]), communications editor SONIA SALEH ([id number]) on 02/24/2025 8:25:35 AM Referred By: SHARLA Confirmed By: WHITNEY KAMARA MD
[2025-02-23] MEDS: Budesonide Respules 0.5 MG/2 ML AMPUL.NEB. INHALATION (07:19)
[2025-02-23] MEDS: Ipratropium/Albuterol Sulfate 3 ML AMPUL.NEB INHALATION (07:19)
[2025-02-23 07:20] VITALS: PULSE 96; RESP 18; O2SAT 100
[2025-02-23 09:55] VITALS: BP 137/83; PULSE 112; RESP 18; TEMP 36.8; O2SAT 100
[2025-02-23] MEDS: Ibuprofen 400 MG Tablet PO (10:21)
[2025-02-23] MEDS: HYDROcodone Bitartrate/Apap 5/325 Tablet PO (10:22)
[2025-02-23] MEDS: Amox/Clavulanate 875 MG Tablet PO (10:22)
[2025-02-23] MEDS: Lisinopril 20 MG Tablet PO (10:22)
[2025-02-23] MEDS: Pantoprazole Sodium 20 MG Tablet PO (10:22)
[2025-02-23] MEDS: Aspirin E.C. 81 MG Tablet PO (10:23)
[2025-02-23] MEDS: Enoxaparin 40 MG/0.4 ML Syringe SC (10:23)
--- NOTE | 2025-02-23 10:38 | STRESSREP ---
Stress Test Report Pharmacologic myocardial perfusion stress test. 49-year-old man with a history of chest pain Resting EKG demonstrates sinus rhythm with a rate of 106 bpm. Resting blood pressure is 136/84 mmHg. 0.4 mg of regadenoson was infused per usual protocol followed by rapid intravenous saline flush injection. Continuous EKG monitoring was performed. The maximum heart rate was 125 bpm which was 73% of max impacted heart rate the maximum workload was 1 metabolic equivalent. At rest there were no ST or T wave changes noted to suggest ischemia and at peak infusion nonspecific ST changes were noted which did not meet the criteria for ischemia. No clinical angina is noted. The final blood pressure was 130/80 mmHg. Myocardial perfusion protocol. 12.0 mCi of technetium 99m sestamibi was injected at rest. 0.4 mg of regadenoson was infused per usual protocol. At peak infusion 34.5 mCi of technetium 99m sestamibi was injected stress images were obtained stress and rest images were reconstructed and compared in the short axis vertical long and horizontal long axis. Gated images were also obtained. Perfusion SPECT analysis: Review of the stress images demonstrate normal uptake of tracer noted in all areas of the myocardium. The resting images similar demonstrated normal uptake of tracer noted in all areas of the myocardium. No areas of reversibility are noted to suggest ischemia and no previous infarct is noted. Gated SPECT analysis: The gated ejection fraction is 78%. Conclusion: Normal pharmacologic myocardial perfusion stress test. Preserved ejection fraction.
--- NOTE | 2025-02-23 12:13 | DCINST_ITS ---
Discharge Instructions Diet Discharge Diet: No restrictions DC O2, CPAP, BIPAP needs Home O2 Discharge instructions: No Dressing / Incision Discharge Activity: Return to Normal Activity Weight Bearing Status: Full weight bearing Follow Up Care Test Results: Test results from this visit will be discussed in further detail at your follow- up appointment, if applicable. Discharge Plan Admission Admit Date/Time: 02/21/25 14:45 Primary Reason for Your Visit: non cardiac chest pain Attending Provider: Vishnu Pastor Primary Care Provider: Avni Salcedo Discharge Orders/Prescriptions Prescriptions: New amoxicillin-pot clavulanate 875-125 mg Tablet 1 tab PO BIDCM Qty: 14 0RF Continued cholecalciferol (vitamin D3) 125 mcg (5,000 unit) capsule 5,000 unit PO DAILY Patient Comments: TAKE 1 CAPSULE BY MOUTH ONCE DAILY albuterol sulfate 2.5 mg /3 mL (0.083 %) solution for nebulization 2.5 mg inhalation DAILY PRN (Reason: shortness of breath or wheezing) Patient Comments: USE 1 VIAL IN NEBULIZER EVERY 4 HOURS NEEDED FOR WHEEZING FOR SHORTNESS OF BREATH. USE OVER 5-15 MINUTES promethazine 25 mg tablet 25 mg PO DAILY PRN (Reason: allergy symptoms) lisinopril 20 mg tablet 20 mg PO DAILY Patient Comments: TAKE 1 TABLET BY MOUTH ONCE DAILY rizatriptan 10 mg tablet,disintegrating 10 mg translingual DAILY PRN (Reason: migraine headache) Patient Comments: TAKE 1 TABLET BY MOUTH NEEDED FOR MIGRAINE HEADACHE. MAY REPEAT IN 2 HOURS IF NEEDED. 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 potassium chloride 1 tab PO DAILY hydrocodone-ibuprofen 7.5-200 mg tablet 1 - 4 tab PO TID PRN (Reason: pain) Discontinued atorvastatin 20 mg tablet 20 mg PO QHS Referrals / Follow Up: Avni Salcedo DO [Primary Care Provider] - See Referral Note (At your next scheduled office visit time) Disposition Disposition (needs filled in before D/C Order can be placed): Home, Self Care
--- NOTE | 2025-02-23 12:21 | PCM.DC.SUM ---
Providers Date of Admission: 02/21/25 Date of Discharge: 02/23/25 Primary Care Physician: Dr. Avni Salcedo DO Reason For Visit: CHEST PAIN Diagnosis Discharge Diagnosis (1) Chest pain, exertional: Status: Acute Code(s): R07.9 - Chest pain, unspecified Plan 1. Chest pain-etiology unclear, patient will undergo a pharmacological nuclear stress test tomorrow, he remains on a statin and aspirin at this time #2 lightheadedness-probably secondary to orthostatic hypotension from patient's blood pressure medications, patient will be observed for further episodes, patient does not complain of any further episodes at this time #3 essential hypertension-patient will remain on his present medications #4 hyperlipidemia-patient is on atorvastatin #5 elevated creatinine-BMP will be repeated tomorrow Total clinical time spent by myself addressing the patient's medical issues, reviewing all of his data, and collaborating with patient's care team: 35 minutes Medications at Discharge Home Medications cyclobenzaprine 10 mg tablet 10 mg PO TID 04/12/15 ipratropium 20 mcg-albuterol 100 mcg/actuation mist for inhalation (Combivent Respimat) 1 puff inhalation DAILY 04/12/15 omeprazole 20 mg capsule,delayed release 20 mg PO DAILY 04/12/15 fexofenadine 180 mg tablet (Tonya Allergy) 180 mg PO DAILY 11/30/16 atorvastatin 40 mg tablet 40 mg PO QHS 12/27/16 montelukast 10 mg tablet 10 mg PO QHS 03/21/21 albuterol sulfate 2.5 mg/3 mL (0.083 %) solution for nebulization 2.5 mg inhalation DAILY PRN shortness of breath or wheezing 11/02/22 cholecalciferol (vitamin D3) 125 mcg (5,000 unit) capsule 5,000 unit PO DAILY 11/02/22 lisinopril 20 mg tablet 20 mg PO DAILY 11/02/22 promethazine 25 mg tablet 25 mg PO DAILY PRN allergy symptoms 11/02/22 rizatriptan 10 mg disintegrating tablet 10 mg translingual DAILY PRN migraine headache 11/02/22 hydrocodone 7.5 mg-ibuprofen 200 mg tablet 1 - 4 tab PO TID PRN pain 02/21/25 potassium chloride 1 tab PO DAILY 02/21/25 umeclidinium 62.5 mcg-vilanterol 25 mcg/actuation powdr for inhalation (Anoro Ellipta) 1 inh inhalation DAILY 02/21/25 amoxicillin 875 mg-potassium clavulanate 125 mg tablet 1 tab PO BIDCM #14 tabs 02/23/25 Hospital Course Operations None Procedures Nuclear stress test Summary of Care Provided Minutes Spent on Discharge: 31 Hospital Course: This 49-year-old white male was seen in the emergency room at [facility] with complaints of intermittent chest discomfort. Workup in the emergency room included an EKG, chest x-ray, and cardiac enzymes. All of the aforementioned studies were unremarkable. Patient was placed into observation status on PCU and monitored. Patient underwent a pharmacological nuclear stress test on 02/23/2025 that was negative for reversible ischemia. On that date, patient was seen and examined: On examination he appeared in good health and spirits. Vital signs as documented. Skin warm and dry and without overt rashes. Neck without JVD, neck was supple, trachea midline, thyroid was normal. Lungs clear bilaterally, normal air movement was noted. Heart exam notable for regular rhythm, normal sounds and absence of murmurs, rubs or gallops. Abdomen unremarkable and without evidence of organomegaly, masses, or abdominal aortic enlargement. Bowel sounds are present, abdomen is not distended. Extremities nonedematous, no cyanosis was noted, no clubbing was noted. Neuro: Cranial nerves II through XII are grossly intact, no focal motor deficits were noted, sensation to light touch and pinprick intact, motor exam 5/5 throughout. Psych: Patient is alert and oriented x3, he does not appear anxious or depressed, he does not appear agitated. Patient was discharged home in stable condition on 02/23/2025 Weight / BMI Weight Weight: 73.457 kg Body Mass Index (BMI) 26.1 ABG / Lab / Microbiology Data 02/21/25 10:28 02/21/25 10:28 D/C Instructions Discharge Diet: No restrictions Weight Bearing Status: Full weight bearing DC O2, CPAP, BIPAP Needs Home O2 Discharge instructions: No Meaningful Use Info Meaningful Use Meaningful Use Diagnoses (Choose all that apply): None applicable Ischemic Stroke Statin Dosing Therapy Reference: STATIN DOSE THERAPY REFERENCE: * Patients > 75 years receive moderate or high dose statin therapy. * Patients 75 years or YOUNGER should receive HIGH intensity statin dose unless contraindicated. You will be required to document reason for non-treatment if statin daily dose does not meet guidelines. HIGH DOSE STATIN THERAPY DAILY Atorvastatin > than or = to 40 mg Rosuvastatin > than or = to 20 mg Amlodipine + Atorvastatin > than or = to 2.5/40 mg Ezetimibe + Simvastatin 10/80 mg Simvastatin 80mg Discharge Plan Admission Admit Date/Time: 02/21/25 14:45 Primary Reason for Your Visit: non cardiac chest pain Attending Provider: Vishnu Pastor Primary Care Provider: Avni Salcedo Discharge Orders/Prescriptions Prescriptions: New amoxicillin-pot clavulanate 875-125 mg Tablet 1 tab PO BIDCM Qty: 14 0RF Continued cholecalciferol (vitamin D3) 125 mcg (5,000 unit) capsule 5,000 unit PO DAILY Patient Comments: TAKE 1 CAPSULE BY MOUTH ONCE DAILY albuterol sulfate 2.5 mg /3 mL (0.083 %) solution for nebulization 2.5 mg inhalation DAILY PRN (Reason: shortness of breath or wheezing) Patient Comments: USE 1 VIAL IN NEBULIZER EVERY 4 HOURS NEEDED FOR WHEEZING FOR SHORTNESS OF BREATH. USE OVER 5-15 MINUTES promethazine 25 mg tablet 25 mg PO DAILY PRN (Reason: allergy symptoms) lisinopril 20 mg tablet 20 mg PO DAILY Patient Comments: TAKE 1 TABLET BY MOUTH ONCE DAILY rizatriptan 10 mg tablet,disintegrating 10 mg translingual DAILY PRN (Reason: migraine headache) Patient Comments: TAKE 1 TABLET BY MOUTH NEEDED FOR MIGRAINE HEADACHE. MAY REPEAT IN 2 HOURS IF NEEDED. 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 potassium chloride 1 tab PO DAILY hydrocodone-ibuprofen 7.5-200 mg tablet 1 - 4 tab PO TID PRN (Reason: pain) Discontinued atorvastatin 20 mg tablet 20 mg PO QHS Referrals / Follow Up: Avni Salcedo DO [Primary Care Provider] - See Referral Note (At your next scheduled office visit time) Disposition Disposition (needs filled in before D/C Order can be placed): Home, Self Care Charges/Coding Visit Charges Inpatient E&M: 08838 Disch Hosp >30min
--- NOTE | 2025-02-23 13:26 | CASEMGMT ---
Patient has order for discharge. RN CM in to discuss needs at discharge. Patient denies needs or help at discharge. Patient had no further questions or concerns.
[2025-02-23 13:46] VITALS: BP 150/104; PULSE 110; RESP 18; TEMP 36.6; O2SAT 99
== END 2025-02-23 12:21 | disposition home or self-care (01) ==
LOC: ED 14:33 → PCU 15:04
PROVIDERS: Admitting Provider Internal Medicine; Emergency Provider Emergency Medicine; PCP Student in an Organized Health Care Education/Training Program; Visit Provider Internal Medicine
DX: R07.89 Other chest pain (principal); I10 Essential (primary) hypertension; R42 Dizziness and giddiness; Z87.891 Personal history of nicotine dependence; J98.11 Atelectasis; J45.909 Unspecified asthma, uncomplicated; E78.5 Hyperlipidemia, unspecified; D86.9 Sarcoidosis, unspecified; Z79.899 Other long term (current) drug therapy; R79.89 Other specified abnormal findings of blood chemistry
CPT/HCPCS: 36415; 71045; 78452; 80048; 80061; 84484; 85025; 93005; 93017; 94640; 96372; 99221; 99285; A9500; A4216; G0378; J2785